=== PATIENT | female | born 1995 | race Caucasian/White ===

== ENCOUNTER 2018-02-17 15:30 | Emergency (ER) | payer OTHER ==
[~2018-02-17] VITALS: Ht 180.3 cm; Wt 113.4 kg
[~2018-02-17 15:30] MED LIST: ACYCLOVIR200 MG/51 PO; ATIVAN1 MG PO; COREG3.125 MG PO; ELIQUIS5 MG PO; LEXAPRO5 MG PO; ORTHO MICRONO0.35 MG PO; PEPCID40 MG PO; TYLENOL325 MG PO; ZOFRAN ODT4 MG PO; ZYPREXA7.5 MG PO
== END 2018-02-17 18:24 | disposition home or self-care (01) ==
LOC: ED 15:30
DX: R42 Dizziness and giddiness (principal); Z88.2 Allergy status to sulfonamides; Z88.8 Allergy status to other drugs, medicaments and biological substances
CPT/HCPCS: 80053; 84703; 85025; 85379; 99284

== ENCOUNTER 2018-08-13 11:25 | Emergency (ER) | payer OTHER ==
[~2018-08-13] VITALS: Ht 180.3 cm; Wt 100.7 kg
[~2018-08-13 11:25] MED LIST changes: +IBUPROFEN200 MG PO
--- NOTE | 2018-08-13 15:56 | EKG ---
[facility] [address] [place], [place] [address] Signed Normal sinus rhythm Normal ECG No previous ECGs available Confirmed by PATIENCE MOREIRA MD ([id number]) on 08/13/2018 3:56:50 PM Electronically Signed By: PATIENCE MOREIRA MD 08/13/18 1556 PATIENT NAME: CRYSTAL HERNANDEZ Electrocardiogram DATE OF : [birth year] PHYSICIAN: PATIENCE MOREIRA MD REPORT #: [id number] REPORT IS CONFIDENTIAL AND NOT TO BE RELEASED WITHOUT AUTHORIZATION
== END 2018-08-13 13:48 | disposition home or self-care (01) ==
LOC: ED 11:25
DX: M94.0 Chondrocostal junction syndrome [Tietze] (principal); Z85.71 Personal history of Hodgkin lymphoma; Z88.2 Allergy status to sulfonamides; Z88.8 Allergy status to other drugs, medicaments and biological substances; Z79.899 Other long term (current) drug therapy; Z86.718 Personal history of other venous thrombosis and embolism
CPT/HCPCS: 71046; 80048; 84484; 85025; 85379; 93005; 93010; 96374; 99284-25

== ENCOUNTER 2019-01-06 11:37 | Emergency (ER) | payer OTHER ==
[~2019-01-06] VITALS: Ht 180.3 cm; Wt 90.7 kg
--- OUTSIDE RECORDS SUMMARY | ~2019-01-06 | XMS | Encounter Summary ---
Demographics + + + | Address | [address] | | | [place] [address] | + + + | Home Phone | | + + + | Preferred Language | Unknown | + + + | Marital Status | | + + + | Latter-Day Affiliation | NON | + + + | Race | White | + + + | Ethnic Group | Not or | + + + Author + + + | Author | [facility] | + + + | Organization | [facility] | + + + | Address | Unknown | + + + | Phone | Unavailable | + + + Support + + +---------+ + | Name | Relationship | Address | Phone | + + +---------+ + | Qamar Wynne | ECON | Unknown | | + + +---------+ + | Merlyn Otero | ECON | Unknown | | + + +---------+ + | Raffy Otero | ECON | Unknown | | + + +---------+ + Care Team Providers + +------+ + | Care Peanut Farmer Name | Role | Phone | + +------+ + | No Pcp Per Patient | PCP | Unavailable | + +------+ + Encounter Details +--------+ + + + + | Date | Type | Department | Care Team | Description | +--------+ + + + + | 03/31/ | Document-Sc | [facility] for | Tiffanie Quirino Simons, | | | 2016 | anned | Hematologic | ,PhD [address] | | | | | Malignancies at | [facility] | | | | | [facility] | [place], [place] | | | | | [address] | [address] | | | | | [facility] | [phone] | | | | | Mailcode: [id number] | | | | | | [facility] | | | | | | [place], [place] | | | | | | [address] | | | | | | [phone] | | | +--------+ + + + + Social History + +-------+ +--------+------+ | Tobacco Use | Types | Packs/Day | Years | Date | | | | | Used | | + +-------+ +--------+------+ | Never Smoker | | | | | + +-------+ +--------+------+ + +---+---+---+ | Smokeless Tobacco: | | | | | Never Used | | | | + +---+---+---+ + + +---------+ + | Alcohol Use | Drinks/Week | oz/Week | Comments | + + +---------+ + | No | 0 Standard drinks | 0.0 | | | | or equivalent | | | + + +---------+ + + + + | Sex Assigned at | Date Recorded | | | | + + + | Not on file | | + + + + + + + | Job Start Date | Occupation | Industry | + + + + | Not on file | Not on file | Not on file | + + + + + + + + | Travel History | Travel Start | Travel End | + + + + + + | No recent travel history available. | + + documented as of this encounter Plan of Treatment Not on filedocumented as of this encounter Visit Diagnoses Not on filedocumented in this encounter"
--- OUTSIDE RECORDS SUMMARY | ~2019-01-06 | XMS | Encounter Summary ---
Demographics + + + | Address | [address] | | | [place] [address] | + + + | Home Phone | | + + + | Preferred Language | Unknown | + + + | Marital Status | | + + + | Pentecostalism Affiliation | NON | + + + | Race | White | + + + | Ethnic Group | Not or | + + + Author + + + | Author | [facility] | + + + | Organization | [facility] | + + + | Address | [...] Team Providers + +------+ + | Care Web User Experience Strategist Name | Role | Phone | + +------+ + | Aashish Hilton MD | PCP | | + +------+ + Reason for Visit AUTH/CERT +--------+--------+ + + + + | Status | Reason | Specialty | Diagnoses / | Referred By | Referred To | | | | | Procedures | Contact | Contact | +--------+--------+ + + + + | | | | | | | +--------+--------+ + + + + Encounter Details +--------+ + + + + | Date | Type | Department | Care Team | Description | +--------+ + + + + | 07/05/ | Hospital | [facility] [address] | [place], | | | 2015 | Encounter | [address] | ,PhD [address] | | | | | [address] [facility] | [address] | | | | | [place] [address] | [place], [place] | | | | | [phone] | [address] | | | | | | [phone] | | | | | | | | +--------+ + + + [...] + + documented as of this encounter Last Filed Vital Signs + + + + + | Vital Sign | Reading | Time Taken | Comments | + + + + + | Blood Pressure | 130/86 | 07/05/2016 12:51 PM | | | | | PST | | + + + + + | Pulse | 136 | 07/05/2016 12:51 PM | | | | | PST | | + + + + + | Temperature | 36.9 C (98.4 F) | 07/05/2016 12:51 PM | | | | | PST | | + + + + + | Respiratory Rate | 18 | 07/05/2016 12:51 PM | | | | | PST | | + + + + + | Oxygen Saturation | 100% | 07/05/2016 12:51 PM | | | | | PST | | + + + + + | Inhaled Oxygen | - | - | | | Concentration | | | | + + + + + | Weight | 95.3 kg (210 lb) | 07/05/2016 9:52 AM | | | | | PST | | + + + + + | Height | 177.8 cm (5' 10") | 07/05/2016 9:52 AM | | | | | PST | | + + + + + | Body Mass Index | 30.13 | 07/05/2016 9:52 AM | | | | | PST | | + + + + + documented in this encounter Discharge Instructions Instructions Lydia Meneses RN - 07/05/2016You have had a tunneled central line placed. Following your catheter placement today: You may feel some discomfort after the local anesthetic wears off. Your discomfort should g radually improve over the next several days. You may resume your usual diet after the procedure. Avoid alcoholic beverages for 24 hours after the procedure. Rest for the remainder of the day and avoid any heavy lifting (more than 10 pounds). Do not operate heavy machinery, drive, or make legal decisions for the first 24 hours after the pr ocedure if you were given sedatives or other medications to help you relax. Keep the initial dressing on for 24 hours or until your dialysis appointment. Keep the skin around the insertion site and dressing dry .No showers for 24 hours. Sponge b ath only tonight if necessary. Do not submerge your catheter under water, (i.e. bath/hot tub ). Contact your caregiver if: You develop any signs of infection around the insertion site (redness, swelling, increased pain, bleeding, or unusual drainage). You develop an unexplained fever or chills. You have any other questions or concerns related to your procedure or the care of your cent ral line. SEEK IMMEDIATE MEDICAL CARE IF: You develop lightheadedness, dizziness or have any fainting episodes. You develop shortness of breath or difficulty breathing. You develop any other signs of allergic reaction to medications such as hives, itching, or nausea and vomiting. Oozing, bleeding or a lump appears at the insertion site. Interventional Radiology Office: [phone] or you may call the Hospital Sheet Rock Applicator at [phone] and ask to have the Interventional Ra diology Fellow highway traffic control technician paged if it is after hours, weekends, or holidays. AttachmentsThe following attachments cannot be sent through Care Everywhere.[facility]: [facility] [employer] [employer] BLOODSTREAM INFECTIONS (GEORGIAN)documented in this encounter Medications at Time of Discharge + + + +---------+ + + | Medication | Sig | Dispensed | Refills | Start | End Date | | | | | | Date | | + + + +---------+ + + | acyclovir 200 mg/5 | Take 20 mL by mouth | 600 mL | 11 | 08/04/20 | | | mL oral suspension | once daily. | | | 16 | | + + + +---------+ + + | escitalopram | Take 1 tablet by | 30 | 3 | 08/04/20 | | | oxalate (LEXAPRO) 10 | mouth once daily in | tablet | | 16 | | | mg oral tablet | the evening. | | | | | + + + +---------+ + + | famotidine 20 mg | Take 1 tablet by | 60 | 5 | 08/06/20 | | | oral tablet | mouth two times | tablet | | 16 | | | | daily. | | | | | + + + +---------+ + + | LORazepam 0.5 mg | Take 1 tablet by | 60 | 0 | 08/04/20 | | | oral tablet | mouth every six | tablet | | 16 | | | | hours as needed for | | | | | | | anxiety (nausea, | | | | | | | vomiting). | | | | | + + + +---------+ + + | norethindrone 0.35 | Take 1 tablet by | 28 | 5 | 08/06/20 | | | mg oral tablet | mouth once daily. | tablet | | 16 | | + + + +---------+ + + | OLANZapine 10 mg | Dissolve 1 tablet in | 30 | 1 | 08/04/20 | | | oral | mouth once daily at | tablet | | 16 | | | tablet,disintegratin | bedtime. | | | | | | g | | | | | | + + + +---------+ + + | ondansetron | Take 1 tablet by | 60 | 11 | 08/07/20 | | | (ZOFRAN, | mouth every twelve | tablet | | 16 | | | HYDROCHLORIDE,) 8 mg | hours as needed for | | | | | | oral tablet | nausea/vomiting. | | | | | + + + +---------+ + + | oxyCODONE, | Take 1 to 2 tablets | 60 | 0 | 08/04/20 | | | immediate release, 5 | by mouth every six | tablet | | 16 | | | mg oral tablet | hours as needed for | | | | | | | moderate pain. | | | | | + + + +---------+ + + | senna-docusate | Take 1-2 tablets by | | 0 | 08/04/20 | | | 8.6-50 mg oral | mouth every twelve | | | 16 | | | tabletIndications: | hours as needed. | | | | | | constipation | Indications: | | | | | | | Constipation | | | | | + + + +---------+ + + documented as of this encounter Progress Notes Freedom Cervantes MD - 07/05/2016 12:02 PM PSTBRIEF INTERVENTIONAL RADIOLOGY PROCEDURE NOTE DATE: 07/05/2016 12:02 PM PROCEDURE: DL Reece catheter placement PRE-PROCEDURE DIAGNOSIS: Hodgkins lymphoma POST-PROCEDURE DIAGNOSIS: Same IR STAFF: Dr. García IR FELLOW: Dr. Cervantes IR RESIDENT: none ACCESS: right IJ MEDICATIONS: See MAR COMPLICATION(S): None immediate FINDINGS: 1. Patent right IJ. Right IJ PORT. 2. Placement of right IJ DL Reece tunneled catheter(23cm tip to cuff) with tip at the ca voatrial junction. Full report forthcoming. Freedom Cervantes MD - 07/03/2016 1:04 PM PSTFormatting of this note might be different from th e original. INTERVENTIONAL RADIOLOGY PRE-PROCEDURE HISTORY AND PHYSICAL LOCATION: [facility] SEX: Female AGE: 20 y.o. : 1995 PROCEDURE PLANNED: DL Reece placement HISTORY OF PRESENT ILLNESS: 20 yo female with hx of Hodgkins disease with early relapse here for DL Reece catheter fo r autoBMT. She has mediastinal disease and a right chest wall PORT. The left IJ appeared o ccluded on CT from 02/27. She is on apixaban daily for DVT. ADVERSE DRUG REACTIONS: Allergies Allergen Reactions Promethazine Pruritus, Rash and Dystonia Sulfacetamide Sodium Hives RED FLAGS: On apixaban TAKING ANTICOAGULANT OR GLUCOPHAGE? apixaban PREMEDICATIONS NEEDED: none LABORATORY: Lab Results Component Value Date WBC 4.4 (L) 06/30/2016 HCT 32.7 (L) 06/30/2016 PLT 414 (H) 06/30/2016 Lab Results Component Value Date NA 136 06/30/2016 K 4.1 06/30/2016 CL 105 06/30/2016 BICARB 25 06/30/2016 BUN 12 06/30/2016 CR 1.0 06/30/2016 GLU 88 06/30/2016 Lab Results Component Value Date INRPT 0.99 06/17/2016 FOCUSED PHYSICAL EXAMINATION: SIGNIFICANT FINDINGS GENERAL BMI:There is no height or weight on file to calculate BMI.. Awake and alert HEENT HEART LUNGS Clear to auscultation ABDOMEN right chest wall port EXTREMITIES NEURO Right neck clear PLANNED ACCESS POINT(S): Right IJ/Left IJ CURRENT LEVEL OF PAIN: Mild PLANNED LEVEL OF SEDATION: Moderate PRESENT P.O. STATUS: NPO PRE-SEDATION EVALUATION HISTORY: Are you having breathing problems today? no Are you having chest pain or discomfort today? no Have you had a prior history of difficult intubation or ventilation? no Do you have noisy breathing (stridor)? no Do you snore? no Do you have documented sleep apnea? no Previous sedation/anesthesia experience and NPO status documented on nursing note, which I have reviewed. 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 Assessment: I have reviewed Ms. Otero's history and and conducted the physical examination as documen jacqui above. This patient is appropriate for moderate sedation. Ms. Otero has provided written consent for sedation with this procedure. Plan: Procedure with moderate sedation MD Freedom Cordova MD Pager: [phone] [facility] Past Medical History Diagnosis Date Anxiety C. difficile colitis Decubitus ulcer DVT (deep venous thrombosis) (HCC) Eczema Hodgkins lymphoma (HCC) HUS (hemolytic uremic syndrome), atypical (HCC) Obesity, Class I, BMI 30-34.9 Sepsis (HCC) No past surgical history on file. Current Medication List Name Sig APIXABAN 5 MG TABLET Take 1 tablet by mouth two times daily. Indications: PREVENTION OF GARY P VEIN THROMBOSIS RECURRENCE SOLIRIS IV Inject into the vein (IV). ESCITALOPRAM 10 MG TABLET Take by mouth. LIDOCAINE-PRILOCAINE 2.5 %-2.5 % TOPICAL CREAM Apply to affected area as needed. Apply a t hick layer to intact skin and cover with an occlusive dressing. documented in this encou nter Plan of Treatment Not on filedocumented as of this encounter Procedures + +--------+ + + + | Procedure Name | Priori | Date/Time | Associated Diagnosis | Comments | | | ty | | | | + +--------+ + + + | CATH PLACEMENT | Routin | 07/05/2016 | | Results for this | | | e | 11:49 AM | | procedure are in the | | | | PST | | results section. | + +--------+ + + + | HCG URINE, POC | Routin | 07/05/2016 | | Results for this | | | e | 9:47 AM | | procedure are in the | | | | PST | | results section. | + +--------+ + + + documented in this encounter Results CATH PLACEMENT (07/05/2016 11:49 AM PST) + + + + + + | Component | Value | Ref Range | Performed | Pathologist | | | | | At | Signature | + + + + + + | CATH | Procedure: Dual lumen | | | | | PLACEMENT | Reece Catheter | | | | | | Placement Primary | | | | | | unemployment claims adjudicator: Freedom Cervantes, | | | | | | M.D. Batch Tank Controller | | | | | | attending unemployment claims adjudicator: | | | | | | Christina García, | | | | | | M.D. Preoperative | | | | | | diagnosis: 20 year-old | | | | | | female with history of | | | | | | Hodgkin's diseasewith | | | | | | early relapse, now for | | | | | | auto BMT. His | | | | | | mediastinal disease and | | | | | | a right chestwall port | | | | | | Postoperative diagnosis: | | | | | | Same Operations: | | | | | | Operation | | | | | | 1. Ultrasound guided | | | | | | puncture right internal | | | | | | jugular vein. Operation | | | | | | 2. Antegrade | | | | | | tunneling Dialysis | | | | | | catheter on right | | | | | | anterior chestwall. | | | | | | Operation | | | | | | 3. Insertion of Dual | | | | | | lumen dialysis catheter | | | | | | into the | | | | | | cavoatrialjunction. | | | | | | Indications: 20-year-old | | | | | | female requires | | | | | | tunneled 2 lm Reece | | | | | | catheter forauto BMT. | | | | | | Procedure: The patient, | | | | | | procedure, and allergies | | | | | | were confirmed in the | | | | | | presence of thepatient | | | | | | by the attending.The | | | | | | attending physician was | | | | | | present for the | | | | | | entireprocedure. Written | | | | | | informed consent was | | | | | | obtained in a PARQ | | | | | | conference with | | | | | | thepatient. The | | | | | | procedure was performed | | | | | | with intravenous | | | | | | sedation. | | | | | | Moderatesedation was | | | | | | administered by the | | | | | | interventional radiology | | | | | | nurse under | | | | | | directsupervision | | | | | | utilizing 7 mg IV Versed | | | | | | and 250 mcg IV | | | | | | fentanyl. The patient | | | | | | was prepped and draped | | | | | | in the usual manner. US | | | | | | was performed toevaluate | | | | | | and select vascular | | | | | | access and an image | | | | | | recorded and | | | | | | archiveddocumenting | | | | | | patency. Realtime US was | | | | | | utilized for | | | | | | visualization of needle | | | | | | entryinto the | | | | | | vein.Utilizing | | | | | | ultrasound guidance and | | | | | | a micropuncture needle | | | | | | theright internal | | | | | | jugular vein was | | | | | | accessed under local | | | | | | anesthesia. Great care | | | | | | wastaken to access the | | | | | | right internal jugular | | | | | | vein at a different | | | | | | location fromthe | | | | | | previously placed | | | | | | Port-A-Cath, and to | | | | | | ensure that the path of | | | | | | the newcatheter did not | | | | | | interfere, cross, or | | | | | | touch the indwelling | | | | | | port and thecatheter. | | | | | | Serial dilatation | | | | | | allowed placement of a | | | | | | 14 Surinamese peel away | | | | | | sheath.Local anesthetic | | | | | | was administered to the | | | | | | right anterior chest | | | | | | wall and thecatheter | | | | | | tunneled in antegrade | | | | | | fashion utilizing sharp | | | | | | and blunt technique.The | | | | | | dual lumen Reece | | | | | | catheter was then | | | | | | inserted through the | | | | | | sheath andpositioned | | | | | | with its tip at the | | | | | | cavo-atrial junction | | | | | | with | | | | | | fluoroscopy. Thecathe | | | | | | ter was flushed. The | | | | | | catheter was sutured in | | | | | | place with nylon suture | | | | | | atthe neck and skin exit | | | | | | site. A dry sterile | | | | | | dressing was | | | | | | applied. Digitalradio | | | | | | graph was obtained at | | | | | | the termination of the | | | | | | procedure. Total | | | | | | fluoroscopic time: 20 | | | | | | seconds Findings: There | | | | | | is a patent right | | | | | | internal jugular vein. | | | | | | Indwelling Port-A-Cath, | | | | | | withaccess into anterior | | | | | | right internal jugular | | | | | | vein. The access needle | | | | | | wasvisualized in the | | | | | | vein, with a | | | | | | subcutaneous course and | | | | | | access point that | | | | | | wasseparate from the | | | | | | indwelling | | | | | | Port-A-Cath..A Dual | | | | | | lumen Reece catheter | | | | | | wasplaced with its tip | | | | | | at the cavo- atrial | | | | | | junction in tunneled | | | | | | fashion. Impression: | | | | | | 1. Patent right | | | | | | internal jugular vein. | | | | | | 2. Placement of 13.5 | | | | | | Surinamese 23 cm tip-to-cuff | | | | | | tunneled dual lumen | | | | | | Hickmancatheter via | | | | | | right internal jugular | | | | | | vein. 3. Catheter tip | | | | | | is at cavo-atrial | | | | | | junction and is ready | | | | | | for immediate use. | | | | | | 4. No evidence of | | | | | | pneumothorax on | | | | | | completion digital | | | | | | image. Attending | | | | | | Radiologists: CHRISTINA | | | | | | EMMY GARCÍAuthor: | | | | | | CHRISTINA GARCÍA MD | | | | | | I personally reviewed | | | | | | the images and, if | | | | | | necessary, edited the | | | | | | report. I agreewith the | | | | | | report as now presented. | | | | | | | | | | | | Final/Electronically | | | | | | signed / CHRISTINA | | | | | | RICKY 07/05/2016 | | | | | | 16:37 PM | | | | + + + + + + + + | Specimen | + + | | + + + +---------+ + + | Performing | Address | City/State/Zipcode | Phone Number | | Organization | | | | + +---------+ + + | [facility] | | | | | RADIOLOGY | | | | + +---------+ + + HCG URINE, POC (07/05/2016 9:47 AM PST) + + + + + + | Component | Value | Ref Range | Performed | Pathologist | | | | | At | Signature | + + + + + + | HCG URINE, | Negative | Negative | [facility] - | | | POC | | | [facility] | | | | | | [facility] | | | | | | OF CARE | | | | | | TESTS | | + + + + + + + + | Specimen | + + | Urine | + + + + + + + | Performing | Address | City/State/Zipcode | Phone Number | | Organization | | | | + + + + + | [facility] | [address] | [place], [place] | | | [facility] | [address] | [address] | | | TESTS | | | | + + + + + documented in this encounter Visit Diagnoses Not on filedocumented in this encounter Administered Medications + +--------+ +--------+------+------+ | Medication Order | MAR | Action | Dose | Rate | Site | | | Action | Date | | | | + +--------+ +--------+------+------+ | fentaNYL (SUBLIMAZE) injection | Given | 07/05/20 | 50 mcg | | | | 25-100 mcg 25-100 mcg, | | 16 11:18 | | | | | intravenous, INTRAPROCEDURE PRN, | | AM PST | | | | | 20 doses, Starting Tue07/05/16 | | | | | | | at 0826, Until Tue07/05/16 at | | | | | | | 1210, until RASS of -3 achieved | | | | | | | and to maintain RASS of -3 | | | | | | + +--------+ +--------+------+------+ +-------+ +--------+---+---+ | Given | 07/05/20 | 50 mcg | | | | | 16 11:16 | | | | | | AM PST | | | | +-------+ +--------+---+---+ | Given | 07/05/20 | 50 mcg | | | | | 16 11:15 | | | | | | AM PST | | | | +-------+ +--------+---+---+ +---+---+ | | | +---+---+ + +-------+ +-------+---+---+ | heparin injection 5-20 mL 5-20 | Given | 07/05/20 | 10 mL | | | | mL, Intracatheter, | | 16 11:57 | | | | | INTRAPROCEDURE PRN, Starting Mon | | AM PST | | | | | 07/05/16 at 0826, Until Mon | | | | | | | 07/05/16 at 1210, line patency, | | | | | | | catheter packing | | | | | | + +-------+ +-------+---+---+ +---+---+ | | | +---+---+ + +-------+ +------+---+---+ | midazolam (PF) (VERSED) | Given | 07/05/20 | 1 mg | | | | injection 1-5 mg 1-5 mg, | | 16 11:18 | | | | | intravenous, INTRAPROCEDURE PRN, | | AM PST | | | | | 20 doses, Starting 07/05/16 | | | | | | | at 0826, Until 07/05/16 at | | | | | | | 1210, until RASS of -3 achieved | | | | | | | and to maintain RASS of -3 | | | | | | + +-------+ +------+---+---+ +-------+ +------+---+---+ | Given | 07/05/20 | 1 mg | | | | | 16 11:16 | | | | | | AM PST | | | | +-------+ +------+---+---+ | Given | 07/05/20 | 1 mg | | | | | 16 11:15 | | | | | | AM PST | | | | +-------+ +------+---+---+ +---+---+ | | | +---+---+ + +-------+ +------+---+---+ | ondansetron (ZOFRAN) injection | Given | 07/05/20 | 4 mg | | | | 4 mg 4 mg, intravenous, | | 16 10:55 | | | | | INTRAPROCEDURE PRN, 1 dose, | | AM PST | | | | | Starting Tue07/05/16 at 0826, | | | | | | | Until Tue07/05/16 at 1055, | | | | | | | nausea/vomiting | | | | | | + +-------+ +------+---+---+ + +---+ | | | + +---+ | oxyCODONE (immediate release) | | | (ROXICODONE) tablet 5-15 mg 5-15 | | | mg, oral, EVERY 4 HOURS | | | NEEDED, Starting Tue07/05/16 at | | | 1202, Until Tue07/05/16 at 1321, | | | moderate pain | | + +---+ | | | + +---+ documented in this encounter
--- OUTSIDE RECORDS SUMMARY | ~2019-01-06 | XMS | Encounter Summary ---
Demographics + + + | Address | [address] | | | [place] [address] | + + + | Home Phone | | + + + | Preferred Language | Unknown | + + + | Marital Status | | + + + | Hoahaoism Affiliation | NON | + + + | Race | White | + + + | Ethnic Group | Not or | + + + Author + + + | Author | [facility] | + + + | Organization | [facility] | + + + | [...] Team Providers + +------+ + | Care Motor Assembly Supervisor Name | Role | Phone | + +------+ + | No Pcp Per Patient | PCP | Unavailable | + +------+ + Reason for Visit + + + | Reason | Comments | + + + | Lab Draw | [facility] | + + + Encounter Details +--------+ + + + + | Date | Type | Department | Care Team | Description | +--------+ + + + + | 04/08/ | Documentati | Hematology/Medical | [facility] | Lab Draw ([facility] | | 2016 | on | [facility] | MD Jim [address] | Pathology Services ) | | | | [facility] | [address] [place], | | | | | [address] | [place] [address] | | | | | Mailcode: [facility] | [phone] | | | | | for [facility] and | | | | | | Healing, [address] | | | | | | [place], [place] | | | | | | [address] | | | | | | [phone] | | | +--------+ + + + [...]
--- OUTSIDE RECORDS SUMMARY | ~2019-01-06 | XMS | Encounter Summary ---
Demographics + + + | Address | [address] | | | [place] [address] | + + + | Home Phone | | + + + | Preferred Language | Unknown | + + + | Marital Status | | + + + | Yarsani Affiliation | NON | + + + | Race | White | + + + | Ethnic Group | Not or | + + + Author + + + | Author | [facility] | + + + | Organization | [facility] | + + + | Address | [...] Team Providers + +------+ + | Care Kiln Operator Name | Role | Phone | + +------+ + | Aashish Hilton MD | PCP | | + +------+ + Encounter Details +--------+ + + + + | Date | Type | Department | Care Team | Description | +--------+ + + + + | 07/07/ | Telephone | Center for | Maura Lai, | | | 2015 | | Hematologic | RN [address] | | | | | Malignancies at | [facility] | | | | | [facility] | [place], [place] | | | | | [address] | [address] | | | | | [facility] | [phone] | | | | | Mailcode: [id number] | | | | | | [facility] | | | | | | [place], [place] | | | | | | [address] | | | | | | [phone] | | | +--------+ + + + [...]
--- OUTSIDE RECORDS SUMMARY | ~2019-01-06 | XMS | Encounter Summary ---
Demographics + + + | Address | [address] | | | [place] [address] | + + + | Home Phone | | + + + | Preferred Language | Unknown | + + + | Marital Status | | + + + | Hindu Affiliation | NON | + + + | Race | White | + + + | Ethnic Group | Not or | + + + Author + + + | Author | [facility] | + + + | Organization | [facility] | + + + | Address [...] Team Providers + +------+ + | Care Contact Manager Name | Role | Phone | + +------+ + | No Pcp Per Patient | PCP | Unavailable | + +------+ + Encounter Details +--------+ + + + + | Date | Type | Department | Care Team | Description | +--------+ + + + + | 06/18/ | Telephone | Center for | Maura Lai, | | | 2015 | | Hematologic | RN [address] | | | | | Malignancies at | [facility] | | | | | Joanne [address] | [place], [place] | | | | | [address] [facility] | [address] | | | | | [facility] | [phone] | | | | | Mailcode: [id number] | | | | | | [address] | | | | | | [place], [place] | | | | | | [address] | | | | | | [phone] | | | +--------+ + + + [...]
--- OUTSIDE RECORDS SUMMARY | ~2019-01-06 | XMS | Encounter Summary ---
Demographics + + + | Address | [address] | | | [place] [address] | + + + | Home Phone | | + + + | Preferred Language | Unknown | + + + | Marital Status | | + + + | Mandaen Affiliation | NON | + + + | Race | White | + + + | Ethnic Group | Not or | + + + Author + + + | Author | [facility] | + + + | Organization | [facility] | + + + | Address [...] Team Providers + +------+ + | Care Salesperson Yard Goods Name | Role | Phone | + +------+ + | No Pcp Per Patient | PCP | Unavailable | + +------+ + Encounter Details +--------+ + + + + | Date | Type | Department | Care Team | Description | +--------+ + + + + | 05/26/ | Bandoleer Straightener Stamper | Center for | Quirino Moreno I, | | | 2016 | | Hematologic | ,PhD [address] | | | | | Malignancies at | [facility] | | | | | Joanne [address] | [place], [place] | | | | | [address] [facility] | [address] | | | | | [facility] | [phone] | | | | | Mailcode: [id number] | | | | | | [facility] | | | | | | [place], [place] | | | | | | [address] | | | | | | [phone] | | | +--------+ + + + [...]
--- OUTSIDE RECORDS SUMMARY | ~2019-01-06 | XMS | Clinical Summary ---
Demographics + + + | Address | [address] | | | [place] [address] | + + + | Home Phone | | + + + | Preferred Language | Unknown | + + + | Marital Status | | + + + | Synagogue Affiliation | Unknown | + + + | Race | Unknown | + + + | Ethnic Group | Unknown | + + + Author + + + | Author | [facility] | + + + | Organization | [facility] | + + + | Address | Unknown | + + + | Phone | Unavailable | + + + Support + + + + + | Name | Relationship | Address | Phone | + + + + + | Qamar Wynne | ECON | [address] | | | | | [place] | | | | | [address] | | + + + + + Care Team Providers + +------+ + | Care Road Marker Name | Role | Phone | + +------+ + | Aashish Hilton MD | PP | | + +------+ + Allergies Not on File Current Medications Not on file Active Problems Not on file Social History + +-------+ +--------+------+ | Tobacco Use | Types | Packs/Day | Years | Date | | | | | Used | | + +-------+ +--------+------+ | Never Assessed | | | | | + +-------+ +--------+------+ + + + | Sex Assigned at | Date Recorded | | | | + + + | Not on file | | + + + Plan of Treatment Not on file Results Not on filefrom Last 3 Months Insurance + +--------+ +------+-------+---------+ | Payer | Benefi | Subscriber | Type | Phone | Address | | | t Plan | ID | | | | | | / | | | | | | | Group | | | | | + +--------+ +------+-------+---------+ | [employer] | [employer] | [id number] | | | | | | HEALTH | | | | | | | PLAN | | | | | + +--------+ +------+-------+---------+ + +--------+ +--------+ + + | Guarantor Name | Accoun | Relation to | Date | Phone | Billing Address | | | t Type | Patient | of | | | | | | | | | | + +--------+ +--------+ + + | CRYSTAL OTERO | Person | Self [birth year] | Home: | [address] | | | [place] | | 1995 | [phone] [place] [address] | | | matthew | | | [phone] | | + +--------+ +--------+ + +"
--- OUTSIDE RECORDS SUMMARY | ~2019-01-06 | XMS | Encounter Summary ---
Demographics + + + | Address | [address] | | | [place] [address] | + + + | Home Phone | | + + + | Preferred Language | Unknown | + + + | Marital Status | | + + + | Worship Affiliation | NON | + + + | Race | White | + + + | Ethnic Group | Not or | + + + Author + + + | Author | [facility] | + + + | Organization | [facility] | + + + | [...] Team Providers + +------+ + | Care Director Information Security Name | Role | Phone | + +------+ + | Aashish Hilton MD | PCP | | + +------+ + Reason for Visit + + + | Reason | Comments | + + + | Transplant follow-up | | + + + Intake Referral (Urgent) +--------+--------+ + + + + | Status | Reason | Specialty | Diagnoses / | Referred By | Referred To | | | | | Procedures | Contact | Contact | +--------+--------+ + + + + | Closed | | Hematology & | Diagnoses | | Fernanda, | | | | Oncology | HUS - needs | Fernanda, | MD Jim | | | | | Ramana | MD Jim | [address] | | | | | | [address] | [address] | | | | | | Ave | [place], [place] | | | | | | [place], [place] | [address] | | | | | | [address] | Phone: | | | | | | Phone: | [phone] | | | | | | [phone] | Fax: | | | | | | Fax: | [phone] | | | | | | [phone] | | +--------+--------+ + + + + Encounter Details +--------+---------+ + + + | Date | Type | Department | Care Team | Description | +--------+---------+ + + + | 08/13/ | Office | Center for | Coreen Grissom, | Nodular sclerosis | | 2016 | Visit | Hematologic | [place] [address] [facility] | Hodgkin lymphoma of | | | | Malignancies at | [facility] | lymph nodes of | | | | [facility] | [place], [place] | multiple regions | | | | [address] [facility] | [address] | (HCC) (Primary Dx); | | | | [facility] | [phone] | Autologous bone | | | | Mailcode: UHN73A | | marrow | | | | [facility] | | transplantation | | | | [place], [place] | | status (HCC) | | | | [address] | | | | | | [phone] | | | +--------+---------+ + + + Social History + +-------+ [...] + + + | Blood Pressure | 133/102 | 08/13/2016 12:51 PM | | | | | PST | | + + + + + | Pulse | 113 | 08/13/2016 12:51 PM | | | | | PST | | + + + + + | Temperature | 37 C (98.6 F) | 08/13/2016 12:51 PM | | | | | PST | | + + + + + | Respiratory Rate | 16 | 08/13/2016 12:51 PM | | | | | PST | | + + + + + | Oxygen Saturation | 100% | 08/13/2016 12:51 PM | | | | | PST | | + + + + + | Inhaled Oxygen | - | - | | | Concentration | | | | + + + + + | Weight | 96.3 kg (212 lb 4.9 | 08/13/2016 12:51 PM | | | | oz) | PST | | + + + + + | Height | - | - | | + + + + + | Body Mass Index | 30.46 | 08/11/2016 1:57 AM | | | | | PST | | + + + + + documented in this encounter Patient Instructions Patient Instructions Coreen Grissom PA - 08/13/2016 1:15 PM PST-Take your temperature regularly (3-4 x daily) and to call immediately for a temperature of 100.4 or greater. documented in this encounter Progress Notes Coreen Grissom PA - 08/13/2016 1:15 PM PSTFormatting of this note might be different f rom the original. 08/13/2016 [facility] Physician: Quirino Moreno MD Local Oncologist: Dr. Hilton PCP: Aashish Hilton MD Hematologic Malignancy: Relapsed HL Conditioning regimen: BEAM Date of transplant: 07/21/16 Donor: Autologous Hematologic History: Meggan Otero is a 20 y.o. 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, admit for autoBMT Local oncologist: Aashish Hilton MD ([facility]) Benign Hematology: Jim Michael MD ([facility]) Pediatric Heme/Onc: Anh Moreland MD ([place]) Nephrology: Raghav Miller MD ([place]) 04/2015 presented with flank pain CT C/A/P: 11 cm anterior mediastinal mass, pleural effusion & L supraclav adenopathy Needle bx: classical hodgkins, nodular sclerosing type Thoracentesis: reactive/benign BMBx: neg PET: bulky mediastinal mass, SUV 16; bilateral neck SUV 15; also R>L pleural effusion 05/10/15 began ABVE-PC (as per pediatric [id number]) via femoral line 05/16/15 presented with sepsis & ATN, requiring prolonged ICU stay - RLE DVT, attempted thrombolysis, then DVT L femoral line - also C Diff with severe diarrhea - anticoagulation attempted with heparin but thrombocytopenic - then severe hemoptysis, microangiopathy, acute kidney injury - 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 -> tx high dose steroids + plasma exchange but poor response -> then ecalizumab with rapid clinical improvement Continued on ecalizumab ever since (genetic testing n/a) 06/18/15 A(B)VE-PC #2 (omit bleo) - complicate by neutropenic fever/admit, recurrent hemoptysis, decubitus ulcer - DVT R popliteal 07/14/15 A(B)VE-PC #3 - complicate by neutropenic fever 08/11/15 A(B)VE-PC #4 - complicate by neutropenic fever 08/2015 CR by PET with residual mass 5.2 x 3.1 cm 09/2015 IFRT 21 Gy 02/2016 CT: enlarging L jugular node 1.5cm & thoracic inlet node 0.9cm in prior radiation fi eld - residual mediastinal mass 2.8 x 4.6 x 7.2 cm PET: left jugular node SUV 8. Also punctate hypermetabolic foci in mediastinal mass, SUV 4. 8 03/2016 surgical bx L neck: classical Hodgkins Above therapy in [place] -> moved to [place] Continued on ecalizumab per benign heme (Roqueoughadrianna) - genetic testing for aHUS PENDING GDP x3 06/2017 CR by PET Reece placed GCSF stem cell mobilization: 7.3 x10^6 cd34/kg She was recently hospitalized from 07/15/16-08/07/16 [facility] For complete details of her recent hospitalization, please see discharge dictation in EPIC. Briefly, her transplant hospitalization was complicated by: pancytopenia, neutropenic fevers, MRSA bacteremia, orthostatic hypotension, chemotherapy induced nausea, mucositis. Meggan Otero is a 20 y.o. female with hx of relapsed HL, currently day +23 s/p BEAM co nditioned autologous peripheral blood stem cell transplant. Interval Hx: Meggan presents to clinic today for her routine scheduled visit. She is accompanied by her m other and in clinic today. Meggan was readmitted after our last visit after developi ng fever. It was determined she had a delayed transfusion reaction and infection was ruled out. Today she is feeling well. She has some intermittent nausea controlled with scheduled zofran and ativan PRN. Her energy level is low but improving. She is eating small meals a nd drinking ~2L/day in PO fluids. She denies fevers or diarrhea. Review of Systems: General: +fatigue-improving Denies fevers, chills, weight loss or sweats. ENT: Denies changes in vision or double vision. Denies hearing loss, nosebleeds, nasal valentine estion, difficulty swallowing, hoarseness or sore throat. Respiratory: Denies shortness of breath, coughing up blood, excessive sputum, cough, chest discomfort or wheezing. Musculoskeletal: +low back/hip pain No swelling, stiffness,arthritis, muscle aches or muscl e cramps. Cardiovascular: No chest pain,lightheadedness,shortness of breath. Gastrointestinal: +nausea-mild, intermittent Denies indigestion, vomiting, constipation, ab dominal pain, diarrhea,bloody stools or dark tarry stools. Skin: Denies rash. Psychological: No abnormal anxiety, depression. Remainder of ROS is otherwise negative. Current Medication List Name Sig ACYCLOVIR 200 MG/5 ML ORAL SUSPENSION Take 20 mL by mouth once daily. ENOXAPARIN 40 MG/0.4 ML SUBCUTANEOUS SYRINGE Inject 0.4 mL under the skin (SUBC) once daily in the evening. Indications: Deep Venous Thrombosis ESCITALOPRAM 10 MG TABLET Take 1 tablet by mouth once daily in the evening. FAMOTIDINE 20 MG TABLET Take 1 tablet by mouth two times daily. FLUCONAZOLE 40 MG/ML ORAL SUSPENSION Take 10 mL by mouth once daily. LORAZEPAM 0.5 MG TABLET Take 1 tablet by mouth every six hours as needed for anxiety (nause a, vomiting). NORETHINDRONE (CONTRACEPTIVE) 0.35 MG TABLET Take 1 tablet by mouth once daily. OLANZAPINE 10 MG DISINTEGRATING TABLET Dissolve 1 tablet in mouth once daily at bedtime. ONDANSETRON HCL 8 MG TABLET Take 1 tablet by mouth every twelve hours as needed for nausea/ vomiting. OXYCODONE 5 MG TABLET Take 1 to 2 tablets by mouth every six hours as needed for moderate p ain. SENNOSIDES-DOCUSATE SODIUM 8.6 MG-50 MG TABLET Take 1-2 tablets by mouth every twelve hours as needed. Indications: Constipation Vitals: BP 133/102 | Pulse 113 | Temp (Src) 37 C (98.6 F) (Oral) | RR 16 | Wt 96.3 kg (212 lb 4 .9 oz) | SpO2 100% | BMI 30.46 kg/(m^2) Physical Exam: General: This is a female in no acute distress. HEENT: PERRL. Sclerae anicteric. Mucosa pink and moist without erythema or exudate. Skin: No rash, lesions noted. Chest: Lungs clear to auscultation bilat. CV: RRR, no murmurs. Abdomen: S/NT/ND with NABS. No HSM appreciated. Extremities: Pulses strong and equal bilaterally. No c/c/e. Neuro: Alert and oriented x 3. Grossly nonfocal exam. CVC: Central line is a PICC catheter w/o induration or inflammation Laboratory Results: CBC with diff: Last 72 hours (or 3 results) No results for input(s): WBC, HB, HCT, PLT, NEUTROPERC, BANDSPCT, LYMPHPERC, MONOPERC, BASO PERC, EOSPERC in the last 72 hours. Chemistries: Last 72 Hours (or 3 results): Recent Labs 08/10/16 2053 08/11/16 0604 08/12/16 0101 08/13/16 1241 08/13/16 1301 NA 145 145 146* -- 138 K 3.4 3.8 3.2* -- 3.5 CL 113* 113* 113* -- 104 BICARB 20* 23 23 -- 27 BUN 23* 24* 17 -- 12 CR 1.62* 1.45* 1.32* -- 1.2* GLU 104* 91 95 -- 86 CA 8.5* 8.2* 8.3* -- 8.6* AST 26 29 22 20 -- ALT 15 15 15 17 -- AP 114* 97 92 110* -- TBILI 2.4* 1.0 0.8 0.7 -- TP 6.5 5.6* 5.7* 6.6 -- ALB 3.4* 3.0* 2.9* 3.4* -- ANIONGAP 12 9 10 -- -- ANIONALBCOR 13* 11 12* -- -- Hematology: Hematologic Malignancy: relapsed HL Conditioning Regimen: BEAM Stem cell transplant -Stem Cell product: tolerated stem cell product on 07/21/16 without complications. CD 34 cou nt = 7.3 x 10^6 per kg -BMT Day: +23 CBC reviewed and reveals pancytopenia. 1U PPH and last dose of neupogen given today. -Around day + 30, we will return her to her primary attending with our BMT service, Dr. Cira leon; first appointment scheduled for 08/26/16. -Plan for Brentuximab maintenance starting ~6 wks post-BMT back home which improves EFS in high risk pts post-auto. She meets high risk criteria due to early relapse. Delayed transfusion reaction: readmitted on 08/10 with fever and transfusion reaction suspe cted with antibody screening positive. -Allow additional time for crossmatch of PRBCs Supportive Care: Growth Factor: Last dose of neupogen given on 08/13 Labs: Continue to check CBC twice weekly Transfusion parameters: -Transfuse PRBCs for HCT <21% if asymptomatic OR <24% if symptomatic -Transfuse PPH for platelet count <20,000 d/t anticoagulation Pulmonary: Pretransplant PFTs completed on 06/25/16 showed FEV1 of 86% predicted, FVC of 90% predicted and adjusted DLCO of 50% predicted. No acute issues Cardiovascular: Pretransplant MUGA completed on 06/24/16 showed a LVEF of 55%. RLE DVT (first noted 07/04/15, persists on 07/16 doppler in R axial calf): Apixaban prior to transplant -Dc'd Apixiban 5 mg BID on admission -Received Tx-dose Lovenox until plts <50K (07/15-07/25) -Lovenox 40 mg qpm while thrombocytopenic, keep plts >20K Orthostatic HoTN: first noted during initial hospital admission and sxs persist intermitten tly -1L NS boluses PRN if asymptomatic GI: Hx of GERD: Pepcid BAKELITE MOLDER -Prilosec 40 mg daily Nausea: ongoing, improved -Zofran PO BID -Zyprexa 10 mg qhs -PRN antiemetics /renal: Atypical HUS: Eculizumab prior to transplant -Eculizumab q 2 weeks, last dose given in clinic on 08/09. -Monitor for hemolysis flare -Monitor LDH, hapto, complement activity qMon, Thurs Menses suppression: -Norethindrone, started 08/05 BRETT: 2/2 supratherapeutic vancomycin and vanco treatment now complete. SCr up to 1.6, now trending down. -Monitor 2x/week -IV fluids in clinic today Neuro/Psych: Depression/Anxiety: Lexapro prior to transplant -Lexapro 10 mg daily -Ativan PRN Infectious Disease: MRSA bacteremia (07/28): noted during initial transplant admission. PAC and Reece remove d on 07/30. TTE neg. Completed course of vancomycin on 08/12. Afebrile and no localizing s/s of acute infection at this time. -The patient is reminded to take her temperature regularly (3-4 x daily) and to call immedi ately for a temperature of 100.4 or greater. Post-Transplant Prophylaxis: Antiviral: Acycovir through day +365 (07/21/17) Antifungal: Fluconazole through day +30 (08/20/16) PCP: PCP prophylaxis will start day+30-40. Dapsone through day +180 as patient has sulfa a llergy. Fluid/Nutrition/Lytes: Nutrition: Current diet -- Regular No Adriane's yogurt or Kefir. Encourage po intake as micheal ated with a goal of consistently drinking at least 2L calorie containing fluids per day. Fluid: 1L NS bolus IV today Lytes: Continue to check chemistries twice weekly. Replace per supportive care protocol. Plan: -KDur 40 mEq PO -1L NS bolus IV today. -1U PPH -Zarxio 480 mcg SC x 1 today. -Return to clinic on 08/17 to see me, sooner prn [facility] AT [address] Mailcode: [id number] [place] [address] documented in this encounter Plan of Treatment Not on filedocumented as of this encounter Results CBC+DIFF,POC (08/17/2016 1:23 PM PST) + + + + + + | Component | Value | Ref Range | Performed | Pathologist | | | | | At | Signature | + + + + + + | WBC POC | 1.8 (L) | 4.4 - 11.0 | [facility] - | | | | | 10*3/uL | [facility] | | | | | | [facility] | | | | | | OF CARE | | | | | | TESTS | | + + + + + + | RBC POC | 2.68 (L) | 4.00 - 5.20 | [facility] - | | | | | 10*6/uL | [facility] | | | | | | [facility] | | | | | | OF CARE | | | | | | TESTS | | + + + + + + | HGB POC | 8.4 (L) | 12.0 - 16.0 | [facility] - | | | | | g/dL | [facility] | | | | | | [facility] | | | | | | OF CARE | | | | | | TESTS | | + + + + + + | HCT POC | 24.4 (L) | 36.0 - 46.0 % | [facility] - | | | | | | [facility] | | | | | | [facility] | | | | | | OF CARE | | | | | | TESTS | | + + + + + + | MCV POC | 91.0 | 80.0 - 96.0 fL | [facility] - | | | | | | [facility] | | | | | | [facility] | | | | | | OF CARE | | | | | | TESTS | | + + + + + + | MCH POC | 31.3 | 29.0 - 32.0 pg | [facility] - | | | | | | [facility] | | | | | | [facility] | | | | | | OF CARE | | | | | | TESTS | | + + + + + + | MCHC POC | 34.4 | 33.0 - 35.5 | [facility] - | | | | | g/dL | [facility] | | | | | | [facility] | | | | | | OF CARE | | | | | | TESTS | | + + + + + + | RDW SD, POC | 42.0 | 35.1 - 46.3 fL | [facility] - | | | | | | [facility] | | | | | | [facility] | | | | | | OF CARE | | | | | | TESTS | | + + + + + + | PLT POC | 23 (L) | 150 - 400 | [facility] - | | | | | 10*3/uL | [facility] | | | | | | [facility], POINT | | | | | | OF CARE | | | | | | TESTS | | + + + + + + | MPV POC | 11.9 | 9.7 - 12.3 fL | [facility] - | | | | | | [facility] | | | | | | [facility] | | | | | | OF CARE | | | | | | TESTS | | + + + + + + | NEUTROPHIL% | 31.1 (L) | 50.0 - 70.0 % | [facility] - | | | POC | | | [facility] | | | | | | [facility] | | | | | | OF CARE | | | | | | TESTS | | + + + + + + | LYMPH% POC | 50.8 (H) | 18 - 42 % | [facility] - | | | | | | [facility] | | | | | | [facility] | | | | | | OF CARE | | | | | | TESTS | | + + + + + + | MONO %, POC | 15.8 (H) | 3.5 - 9.0 % | [facility] - | | | | | | [facility] | | | | | | [facility] POINT | | | | | | OF CARE | | | | | | TESTS | | + + + + + + | EOS %, POC | 2.3 | 1.0 - 3.0 % | [facility] - | | | | | | [facility] | | | | | | [facility] POINT | | | | | | OF CARE | | | | | | TESTS | | + + + + + + | BASO %, POC | 0.0 | 0.0 - 2.0 % | [facility] - | | | | | | [facility] | | | | | | [facility] POINT | | | | | | OF CARE | | | | | | TESTS | | + + + + + + | NEUTROPHIL# | 0.6 (L) | 1.8 - 7.7 | [facility] - | | | POC | | 10*3/uL | [facility] | | | | | | [facility]INT | | | | | | OF CARE | | | | | | TESTS | | + + + + + + | LYMPH# POC | 0.9 (L) | 1.0 - 4.8 | [facility] - | | | | | 10*3/uL | [facility] | | | | | | [facility] | | | | | | OF CARE | | | | | | TESTS | | + + + + + + | MONO #, POC | 0.3 | 0.1 - 0.9 | [facility] - | | | | | 10*3/uL | [facility] | | | | | | [facility] | | | | | | OF CARE | | | | | | TESTS | | + + + + + + | EOS #, POC | 0.0 | 0.0 - 0.5 | [facility] - | | | | | 10*3/uL | [facility] | | | | | | [facility] | | | | | | OF CARE | | | | | | TESTS | | + + + + + + | BASO #, POC | 0.0 | 0.0 - 0.1 | [facility] - | | | | | 10*3/uL | [facility] | | | | | | [facility] | | | | | | OF CARE | | | | | | TESTS | | + + + + + + | CBC | Imm Gran. | | [facility] - | | | COMMENT, | | | [facility] | | | POC | | | [facility] | | | | | | OF CARE | | | | | | TESTS | | + + + + + + + + | Specimen | + + | Blood | + + + + + + + | Performing | Address | City/State/Zipcode | Phone Number | | Organization | | | | + + + + + | [facility] | [address] | [place], [place] | | | [facility] | [facility] | [address] | | | TESTS | | | | + + + + + BMP + MAG, POC CHM (08/17/2016 1:20 PM PST) + +---------+ + + + | Component | Value | Ref Range | Performed | Pathologist | | | | | At | Signature | + +---------+ + + + | SODIUM, POC | 139 | 134 - 143 | [facility] - | | | | | mmol/L | [facility] | | | | | | [facility] | | | | | | OF CARE | | | | | | TESTS | | + +---------+ + + + | POTASSIUM, | 4.0 | 3.4 - 5.0 | [facility] - | | | POC | | mmol/L | [facility] | | | | | | [facility] | | | | | | OF CARE | | | | | | TESTS | | + +---------+ + + + | TOTAL CO2, | 26 | 22 - 29 mmol/L | [facility] - | | | POC | | | [facility] | | | | | | [facility] | | | | | | OF CARE | | | | | | TESTS | | + +---------+ + + + | CHLORIDE, | 104 | 97 - 108 mmol/L | [facility] - | | | POC | | | [facility] | | | | | | [facility] | | | | | | OF CARE | | | | | | TESTS | | + +---------+ + + + | GLUCOSE, | 94 | 60 - 99 mg/dL | [facility] - | | | POC | | | [facility] | | | | | | [facility] | | | | | | OF CARE | | | | | | TESTS | | + +---------+ + + + | CALCIUM | 9.3 | 8.6 - 10.2 | [facility] - | | | TOTAL, POC | | mg/dL | [facility] | | | | | | [facility] | | | | | | OF CARE | | | | | | TESTS | | + +---------+ + + + | BUN, POC | 11 | 6 - 20 mg/dL | [facility] - | | | | | | [facility] | | | | | | [facility], POINT | | | | | | OF CARE | | | | | | TESTS | | + +---------+ + + + | CREATININE, | 1.3 (H) | 0.6 - 1.1 mg/dL | [facility] - | | | POC | | | [facility] | | | | | | [facility] | | | | | | OF CARE | | | | | | TESTS | | + +---------+ + + + | LDH, POC | 239 (H) | 0 - 206 U/L | [facility] - | | | | | | [facility] | | | | | | [facility], POINT | | | | | | OF CARE | | | | | | TESTS | | + +---------+ + + + | MAGNESIUM, | 1.6 (L) | 1.8 - 2.5 mg/dL | [facility] - | | | POC | | | [facility] | | | | | | [facility] PO[facility] | | | | | | OF CARE | | | | | | TESTS | | + +---------+ + + + + + | Specimen | + + | | + + + + + + + | Performing | Address | City/State/Zipcode | Phone Number | | Organization | | | | + + + + + | [facility] | [address] | [place], [place] | | | [facility] | [address] | [address] | | | TESTS | | | | + + + + + HAPTOGLOBIN, SERUM (08/17/2016 12:56 PM PST) + +-------+ + + + | Component | Value | Ref Range | Performed | Pathologist | | | | | At | Signature | + +-------+ + + + | HAPTOGLOBIN | 61 | 30 - 200 mg/dL | [facility] | | | | | | [facility] - | | | | | | [place] | | + +-------+ + + + + + | Specimen | + + | Blood | + + + + + + + | Performing | Address | City/State/Zipcode | Phone Number | | Organization | | | | + + + + + | [facility] | [address] | [place] [address] | | | [place] | | | | + + + + + LIVER SET (AST,ALT,BILI TOTAL,BILI DIRECT,ALK PHOS,ALB,PROT TOTAL) (08/17/2016 12:56 PM PST ) + +---------+ + + + | Component | Value | Ref Range | Performed | Pathologist | | | | | At | Signature | + +---------+ + + + | ALBUMIN, | 3.7 | 3.5 - 4.7 g/dL | [facility] | | | PLASMA | | | LABORATORY | | | (LAB) | | | SERVICES, | | | | | | CORE | | + +---------+ + + + | BILIRUBIN | 0.3 | 0.3 - 1.2 mg/dL | [facility] | | | TOTAL | | | LABORATORY | | | | | | SERVICES, | | | | | | CORE | | + +---------+ + + + | BILIRUBIN | <0.1 | 0.0 - 0.3 mg/dL | [facility] | | | DIRECT | | | LABORATORY | | | | | | SERVICES, | | | | | | CORE | | + +---------+ + + + | ALK PHOS | 111 (H) | 42 - 98 U/L | [facility] | | | | | | LABORATORY | | | | | | SERVICES, | | | | | | CORE | | + +---------+ + + + | AST(SGOT) | 19 | <=41 U/L | [facility] | | | | | | LABORATORY | | | | | | SERVICES, | | | | | | CORE | | + +---------+ + + + | ALT (SGPT) | 22 | <=60 U/L | [facility] | | | | | | LABORATORY | | | | | | SERVICES, | | | | | | CORE | | + +---------+ + + + | TOTAL | 6.9 | 6.4 - 8.2 g/dL | [facility] | | | PROTEIN, | | | LABORATORY | | | PLASMA | | | SERVICES, | | | (LAB) | | | CORE | | + +---------+ + + + | AST CMNT | No Hemo | | [facility] | | | | | | LABORATORY | | | | | | SERVICES, | | | | | | CORE | | + +---------+ + + + | BILI T CMNT | No Hemo | | [facility] | | | | | | LABORATORY | | | | | | SERVICES, | | | | | | CORE | | + +---------+ + + + | BILI D CMNT | No Hemo | | [facility] | | | | | | LABORATORY | | | | | | SERVICES, | | | | | | CORE | | + +---------+ + + + + + | Specimen | + + | Blood | + + + + + + + | Performing | Address | City/State/Zipcode | Phone Number | | Organization | | | | + + + + + | [facility] | [address] | [place] [address] | | | SERVICES, CORE | [address] | | | + + + + + PHOSPHORUS, PLASMA (08/17/2016 12:56 PM PST) + +-------+ + + + | Component | Value | Ref Range | Performed | Pathologist | | | | | At | Signature | + +-------+ + + + | PHOSPHORUS, | 2.9 | 2.4 - 4.7 mg/dL | [facility] | | | PLASMA | | | LABORATORY | | | (LAB) | | | SERVICES, | | | | | | CORE | | + +-------+ + + + + + | Specimen | + + | Blood | + + + + + + + | Performing | Address | City/State/Zipcode | Phone Number | | Organization | | | | + + + + + | [facility] | [address] | [place] [address] | | | SERVICES, CORE | [address] | | | + + + + + documented in this encounter Visit Diagnoses + + | Diagnosis | + + | 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
--- OUTSIDE RECORDS SUMMARY | ~2019-01-06 | XMS | Clinical Summary ---
Demographics + + + | Address | [address] | | | [place] [address] | + + + | Home Phone | | + + + | Preferred Language | Unknown | + + + | Marital Status | | + + + | Zoroastrianism Affiliation | Unknown | + + + | Race | Unknown | + + + | Ethnic Group | Unknown | + + + Author + + + | Author | [facility] | + + + | Organization | [facility] | + + + | Address | Unknown | + + + | Phone | Unavailable | + + + Support + + + + + | Name | Relationship | Address | Phone | + + + + + | Qamar Wynne | ECON | [address] | | | | | [place] | | | | | [address] | | + + + + + Care Team Providers + +------+ + | Care Speedboat Operator Name | Role | Phone | [...] | [employer] | [facility]DS | [id number] | | | | | | HEALTH [...] | Self | [birth year] | Home: | [address] | | | tonia/[place]ie | | [phone] | [phone] [place] [address] | | | matthew | | | [phone] | | + +--------+ +--------+ + +"
--- OUTSIDE RECORDS SUMMARY | ~2019-01-06 | XMS | Encounter Summary ---
Demographics + + + | Address | [address] | | | [place] [address] | + + + | Home Phone | | + + + | Preferred Language | Unknown | + + + | Marital Status | | + + + | Anabaptism Affiliation | NON | + + + | Race | White | + + + | Ethnic Group | Not or | + + + Author + + + | Author | [facility] | + + + | Organization | [facility] | + + + | Address [...] Team Providers + +------+ + | Care Travel Accommodation Inspector Name | Role | Phone | + [...] + + | 07/05/ | Hospital | [facility] | | | | 2016 | Encounter | Floor [address] | | | | | | [facility] | | | | | | [facility] 14D | | | | | | [place], [place] | | | | | | [address] | | | | | | [phone] | | | +--------+ + + + [...] + + + | Blood Pressure | 113/71 | 07/05/2016 3:56 PM | | | | | PST | | + + + + + | Pulse | 117 | 07/05/2016 3:56 PM | | | | | PST | | + + + + + | Temperature | 37.3 C (99.2 F) | 07/05/2016 3:56 PM | | | | | PST | | + + + + + | Respiratory Rate | 18 | 07/05/2016 3:56 PM | | | | | PST | | + + + + + | Oxygen Saturation | 100% | 07/05/2016 12:45 PM | | | | | PST | | + + + + + | Inhaled Oxygen | - | - | | | Concentration | | | | + + + + + | Weight | - | - | | + + + + + | Height | - | - | | + + + + + | Body Mass Index | - | - | | + + + + + documented in this encounter Medications at Time of [...] | + +--------+ + + + | CULTURE, BLOOD BACTI | Routin | 07/05/2016 | Nodular sclerosis | Results for this | | & YEAST [facility] | e | 4:32 PM | Hodgkin lymphoma of | procedure are in the | | | | PST | lymph nodes of | results section. | | | | | multiple regions | | | | | | (HCC) | | + +--------+ + + + | CULTURE, BLOOD BACTI | Routin | 07/05/2016 | Nodular sclerosis | Results for this | | & YEAST | e | 4:32 PM | Hodgkin lymphoma of | procedure are in the | | | | PST | lymph nodes of | results section. | | | | | multiple regions | | | | | | (HCC) | | + +--------+ + + + | CULTURE, BLOOD BACTI | Routin | 07/05/2016 | Nodular sclerosis | Results for this | | & YEAST [facility] | e | 4:30 PM | Hodgkin lymphoma of | procedure are in the | | | | PST | lymph nodes of | results section. | | | | | multiple regions | | | | | | (HCC) | | + +--------+ + + + | PRODUCT CELL COUNT | Routin | 07/05/2016 | Nodular sclerosis | Results for this | | | e | 4:30 PM | Hodgkin lymphoma of | procedure are in the | | | | PST | lymph nodes of | results section. | | | | | multiple regions | | | | | | (HCC) | | + +--------+ + + + | CULTURE, BLOOD BACTI | Routin | 07/05/2016 | Nodular sclerosis | Results for this | | & YEAST | e | 4:30 PM | Hodgkin lymphoma of | procedure are in the | | | | PST | lymph nodes of | results section. | | | | | multiple regions | | | | | | (HCC) | | + +--------+ + + + | AUTO HPCA CRYO/STORE | Routin | 07/05/2016 | Nodular sclerosis | Results for this | | | e | 3:23 PM | Hodgkin lymphoma of | procedure are in the | | | | PST | lymph nodes of | results section. | | | | | multiple regions | | | | | | (HCC) | | + +--------+ + + + | PRODUCT CD34 STEM | Routin | 07/05/2016 | Nodular sclerosis | Results for this | | CELLS | e | 3:22 PM | Hodgkin lymphoma of | procedure are in the | | | | PST | lymph nodes of | results section. | | | | | multiple regions | | | | | | (HCC) | | + +--------+ + + + | PRODUCT MANUAL DIFF | Routin | 07/05/2016 | Nodular sclerosis | Results for this | | | e | 3:21 PM | Hodgkin lymphoma of | procedure are in the | | | | PST | lymph nodes of | results section. | | | | | multiple regions | | | | | | (HCC) | | + +--------+ + + + | PRODUCT CELL COUNT | Routin | 07/05/2016 | Nodular sclerosis | Results for this | | | e | 3:21 PM | Hodgkin lymphoma of | procedure are in the | | | | PST | lymph nodes of | results section. | | | | | multiple regions | | | | | | (HCC) | | + +--------+ + + + | CULTURE, BLOOD BACTI | Routin | 07/05/2016 | Nodular sclerosis | Results for this | | & YEAST [facility] | e | 3:20 PM | Hodgkin lymphoma of | procedure are in the | | | | PST | lymph nodes of | results section. | | | | | multiple regions | | | | | | (HCC) | | + +--------+ + + + | CULTURE, BLOOD BACTI | Routin | 07/05/2016 | Nodular sclerosis | Results for this | | & YEAST | e | 3:20 PM | Hodgkin lymphoma of | procedure are in the | | | | PST | lymph nodes of | results section. | | | | | multiple regions | | | | | | (HCC) | | + +--------+ + + + | PRODUCT RETYPE ONLY | Routin | 07/05/2016 | Nodular sclerosis | Results for this | | | e | 2:00 PM | Hodgkin lymphoma of | procedure are in the | | | | PST | lymph nodes of | results section. | | | | | multiple regions | | | | | | (HCC) | | + +--------+ + + + documented in this encounter Results CULTURE, BLOOD BACTI & YEAST [facility] (07/05/2016 4:32 PM PST) + + + + + + | Component | Value | Ref Range | Performed | Pathologist | | | | | At | Signature | + + + + + + | CULTURE | Final Report:No Bacteria | | [facility] | | | RESULT | or Yeast isolated at 5 | | LABORATORY | | | | days. | | SERVICES, | | | | | | CORE | | + + + + + + + + | Specimen | + + | [facility] - | | [facility] | + + + + + + + | Performing | Address | City/State/Zipcode | Phone Number | | Organization | | | | + + + + + | [facility] | [address] | [place] [address] | | | SERVICES, [place] | [address] | | | + + + + + CULTURE, BLOOD BACTI & YEAST [facility] (07/05/2016 4:30 PM PST) + + + + + + | Component | Value | Ref Range | Performed | Pathologist | | | | | At | Signature | + + + + + + | CULTURE | Final Report:No Bacteria | | [facility] | | | RESULT | or Yeast isolated at 5 | | LABORATORY | | | | days. | | SERVICES, | | | | | | CORE | | + + + + + + + + | Specimen | + + | [facility] - | | [facility] | + + + + + + + | Performing | Address | City/State/Zipcode | Phone Number | | Organization | | | | + + + + + | [facility] | [address] | [place] [address] | | | SERVICES, CORE | [address] | | | + + + + + PRODUCT CELL COUNT (07/05/2016 4:30 PM PST) + + + + + + | Component | Value | Ref Range | Performed | Pathologist | | | | | At | Signature | + + + + + + | PRODUCT | [id number] | | [facility] | | | IDENTIFIER | | | LABORATORY | | | | | | SERVICES, | | | | | | CORE | | + + + + + + | PRODUCT WBC | <0.1 | K/cu mm | [facility] | | | | | | LABORATORY | | | | | | SERVICES, | | | | | | CORE | | + + + + + + | PRODUCT RBC | <0.20 | M/cu mm | [facility] | | | | | | LABORATORY | | | | | | SERVICES, | | | | | | CORE | | + + + + + + | PRODUCT HGB | <0.6 | g/dL | [facility] | | | | | | LABORATORY | | | | | | SERVICES, | | | | | | CORE | | + + + + + + | PRODUCT HCT | <1.0 | % | [facility] | | | | | | LABORATORY | | | | | | SERVICES, | | | | | | CORE | | + + + + + + | PRODUCT PLT | 57 | K/cu mm | [facility] | | | | | | LABORATORY | | | | | | SERVICES, | | | | | | CORE | | + + + + + + + + | Specimen | + + | Stem cells | + + + + + + + | Performing | Address | City/State/Zipcode | Phone Number | | Organization | | | | + + + + + | [facility] | [address] | [place] [address] | | | SERVICES, CORE | [address] | | | + + + + + AUTO HPCA CRYO/STORE (07/05/2016 3:23 PM PST) + + + + + + | Component | Value | Ref Range | Performed | Pathologist | | | | | At | Signature | + + + + + + | PRODUCT | Auto HPC, Apheresis | | [facility] | | | TYPE | [id number] | | CELL | | | | | | PROCESSING | | | | | | LAB | | + + + + + + | COLLECTION | 07/05/2016 | | [facility] | | | DATE | | | CELL | | | PRODUCT | | | PROCESSING | | | | | | LAB | | + + + + + + | VOLUME | 184 | mL | [facility] | | | FROZEN | | | CELL | | | | | | PROCESSING | | | | | | LAB | | + + + + + + | TNC DOSE | 9.01 | x10 8/Kg | [facility] | | | | | | CELL | | | | | | PROCESSING | | | | | | LAB | | + + + + + + | TMNC DOSE | 8.20 | x10 8/Kg | [facility] | | | | | | CELL | | | | | | PROCESSING | | | | | | LAB | | + + + + + + | CD34 DOSE | 7.37 | x10 6/Kg | [facility] | | | | | | CELL | | | | | | PROCESSING | | | | | | LAB | | + + + + + + + + | Specimen | + + | [facility] PB[facility] | + + + + + + + | Performing | Address | City/State/Zipcode | Phone Number | | Organization | | | | + + + + + | [facility] | [address] | [place], [place] | | | PROCESSING LAB | [address] | [address] | | + + + + + PRODUCT CD34 STEM CELLS (07/05/2016 3:22 PM PST) + + + + + + | Component | Value | Ref Range | Performed | Pathologist | | | | | At | Signature | + + + + + + | PRODUCT | [id number] | | [facility] | | | IDENTIFIER | | | LABORATORY | | | | | | SERVICES, | | | | | | SPECIAL IMM | | | | | | + COAG | | + + + + + + | PRODUCT | 2.233 | X10*6 / mL | [facility] | | | CD34 | | | LABORATORY | | | POSITIVE | | | SERVICES, | | | CELLS | | | SPECIAL IMM | | | | | | + COAG | | + + + + + + | PRODUCT | 0.84 | % | [facility] | | | CD34 | | | LABORATORY | | | PERCENT | | | SERVICES, | | | | | | SPECIAL IMM | | | | | | + COAG | | + + + + + + + + | Specimen | + + | Stem cells | + + + + + + + | Performing | Address | City/State/Zipcode | Phone Number | | Organization | | | | + + + + + | [facility] | [address] | [place] [address] | | | SERVICES, SPECIAL | [address] | | | | IMM + COAG | | | | + + + + + PRODUCT MANUAL DIFF (07/05/2016 3:21 PM PST) + + + + + + | Component | Value | Ref Range | Performed | Pathologist | | | | | At | Signature | + + + + + + | PRODUCT | [id number] | | [facility] | | | IDENTIFIER | | | LABORATORY | | | | | | SERVICES, | | | | | | CORE | | + + + + + + | TOTAL | 200 | | [facility] | | | COUNTED,BP | | | LABORATORY | | | | | | SERVICES, | | | | | | CORE | | + + + + + + | PRODUCT | 91 | % | [facility] | | | MONONUCLEAR | | | LABORATORY | | | | | | SERVICES, | | | | | | CORE | | + + + + + + | PRODUCT | 9 | % | [facility] | | | OTHER | | | LABORATORY | | | | | | SERVICES, | | | | | | CORE | | + + + + + + + + | Specimen | + + | Stem cells | + + + + + + + | Performing | Address | City/State/Zipcode | Phone Number | | Organization | | | | + + + + + | [facility] | [address] | [place] [address] | | | ELISA, [place] | [address] | | | + + + + + PRODUCT CELL COUNT (07/05/2016 3:21 PM PST) + + + + + + | Component | Value | Ref Range | Performed | Pathologist | | | | | At | Signature | + + + + + + | PRODUCT | [id number] | | [facility] | | | IDENTIFIER | | | LABORATORY | | | | | | SERVICES, | | | | | | CORE | | + + + + + + | PRODUCT WBC | 273.2 | K/cu mm | [facility] | | | | | | LABORATORY | | | | | | SERVICES, | | | | | | CORE | | + + + + + + | PRODUCT RBC | 0.49 | M/cu mm | [facility] | | | | | | LABORATORY | | | | | | SERVICES, | | | | | | CORE | | + + + + + + | PRODUCT HGB | 1.0 | g/dL | [facility] | | | | | | LABORATORY | | | | | | SERVICES, | | | | | | CORE | | + + + + + + | PRODUCT HCT | 5.0 | % | [facility] | | | | | | LABORATORY | | | | | | SERVICES, | | | | | | CORE | | + + + + + + | PRODUCT PLT | 2,258 | K/cu mm | [facility] | | | | | | LABORATORY | | | | | | SERVICES, | | | | | | CORE | | + + + + + + + + | Specimen | + + | Stem cells | + + + + + + + | Performing | Address | City/State/Zipcode | Phone Number | | Organization | | | | + + + + + | [facility] | [address] | [place] [address] | | | SERVICES, [place] | [address] | | | + + + + + CULTURE, BLOOD BACTI & YEAST [facility] (07/05/2016 3:20 PM PST) + + + + + + | Component | Value | Ref Range | Performed | Pathologist | | | | | At | Signature | + + + + + + | CULTURE | Final Report:No Bacteria | | [facility] | | | RESULT | or Yeast isolated at 5 | | LABORATORY | | | | days. | | SERVICES, | | | | | | CORE | | + + + + + + + + | Specimen | + + | [facility] - PBSC - | | [facility] | + + + + + + + | Performing | Address | City/State/Zipcode | Phone Number | | Organization | | | | + + + + + | [facility] | [address] | [place] [address] | | | SERVICES, CORE | [address] | | | + + + + + PRODUCT RETYPE ONLY (07/05/2016 2:00 PM PST) + + + + + + | Component | Value | Ref Range | Performed | Pathologist | | | | | At | Signature | + + + + + + | PRODUCT | [id number] | | [facility] | | | IDENTIFIER | | | LABORATORY | | | | | | SERVICES, | | | | | | CORE | | + + + + + + | PRODUCT ABO | A | | [facility] | | | GROUP | | | LABORATORY | | | | | | SERVICES, | | | | | | CORE | | + + + + + + | PRODUCT RH | Positive | | [facility] | | | TYPE | | | LABORATORY | | | | | | SERVICES, | | | | | | CORE | | + + + + + + | TX SPECIMEN | HPC, APHERESIS | | [facility] | | | | | | LABORATORY | | | | | | SERVICES, | | | | | | CORE | | + + + + + + + + | Specimen | + + | Blood | + + + + + + + | Performing | Address | City/State/Zipcode | Phone Number | | Organization | | | | + + + + + | 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
--- OUTSIDE RECORDS SUMMARY | ~2019-01-06 | XMS | Encounter Summary ---
Demographics + + + | Address | [address] | | | [place] [address] | + + + | Home Phone | | + + + | Preferred Language | Unknown | + + + | Marital Status | | + + + | Jehovah'S Witness Affiliation | NON | + + + | Race | White | + + + | Ethnic Group | Not or | + + + Author + + + | Author | [facility] | + + + | Organization | [facility] | + + + | Address [...] Team Providers + +------+ + | Care Train Controller Name | Role | Phone | + +------+ + | Aashish Hilton MD | PCP | | + +------+ + Reason for Visit + + + | Reason | Comments | + + + | Social Work Notes | | + + + Encounter Details +--------+ + + + + | Date | Type | Department | Care Team | Description | +--------+ + + + + | 06/29/ | Documentati | [facility] for | Work, Social | Social Work Notes | | 2016 | on | Hematologic | | | | | | Malignancies at | | | | | | [facility] | | | | | | [address] | | | | | | [facility] | | | | | | Mailcode: [id number] | | | | | | Jonane Herman | | | | | | [place], [place] | | | | | | [address] | | | | | | [phone] | | | +--------+ + + + [...]
--- OUTSIDE RECORDS SUMMARY | ~2019-01-06 | XMS | Encounter Summary ---
Demographics + + + | Address | [address] | | | [place] [address] | + + + | Home Phone | | + + + | Preferred Language | Unknown | + + + | Marital Status | | + + + | Druze Affiliation | NON | + + + | Race | White | + + + | Ethnic Group | Not or | + + + Author + + + | Author | [facility] | + + + | Organization | [facility] | + + + | Address | [...] Team Providers + +------+ + | Care Assembly Instructions Writer Name | Role | Phone | + +------+ + | Aashish Hilton MD | PCP | | + +------+ + Encounter Details +--------+ + + + + | Date | Type | Department | Care Team | Description | +--------+ + + + + | 07/06/ | Telephone | Center for | Maura Lai, | | | 2015 | | Hematologic | RN [address] | | | | | Malignancies at | [facility] | | | | | [facility] | [place], [place] | | | | | [address] [facility] | [address] | | | | | [facility] | [phone] | | | | | Mailcode: [id number] | | | | | | [facility] | | | | | | [place], [place] | | | | | | [address] | | | | | | [phone] | | | +--------+ + + + [...]
--- OUTSIDE RECORDS SUMMARY | ~2019-01-06 | XMS | Encounter Summary ---
Demographics + + + | Address | [address] | | | [place] [address] | + + + | Home Phone | | + + + | Preferred Language | Unknown | + + + | Marital Status | | + + + | Quaker Affiliation | NON | + + + | Race | White | + + + | Ethnic Group | Not or | + + + Author + + + | Author | [facility] | + + + | Organization | [facility] | + + + | Address [...] Team Providers + +------+ + | Care Care Analyst Name | Role | Phone | + +------+ + | Aashish Hilton MD | PCP | | + +------+ + Encounter Details +--------+ + + + + | Date | Type | Department | Care Team | Description | +--------+ + + + + | 10/27/ | Documentati | Center for | Maura Lai, | | | 2017 | on | Hematologic | RN [address] | | | | | Malignancies at | [facility] | | | | | [facility] | [place], [place] | | | | | [address] [facility] | [address] | | | | | [facility] | [phone] | | | | | Mailcode: [id number] | | | | | | [facility] | | | | | | [place], [place] | | | | | | [address] | | | | | | [phone] | | | +--------+ + + + [...]
--- OUTSIDE RECORDS SUMMARY | ~2019-01-06 | XMS | Encounter Summary ---
Demographics + + + | Address | [address] | | | [place] [address] | + + + | Home Phone | | + + + | Preferred Language | Unknown | + + + | Marital Status | | + + + | Christian Affiliation | NON | + + + | Race | White | + + + | Ethnic Group | Not or | + + + Author + + + | Author | [facility] | + + + | Organization | [facility] | + + + | Address [...] Team Providers + +------+ + | Care Grease Press Helper Name | Role | Phone | + +------+ + | Aashish Hilton MD | PCP | | + +------+ + Reason for Visit + + + | Reason | Comments | + + + | Lab Draw | PICC | + + + | Hydration | | + + + | Transplant follow-up | | + + + | Dressing change | | + + + | Intravenous infusion | mag | + + + Benefits Check (Routine) +--------+--------+ + + + + | Status | Reason | Specialty | Diagnoses / | Referred By | Referred To | | | | | Procedures | Contact | Contact | +--------+--------+ + + + + | Closed | | Hematology | Diagnoses | Quirino Moreno | maciej Faculty | | | | Malignancy | Nodular | MD Ronak,PhD | [facility] [address] | | | | | sclerosis | [address] | [address] | | | | | Hodgkin | [place] | [facility] | | | | | lymphoma, | Rd | Mailcode: | | | | | lymph nodes | [place], [place] | [id number] | | | | | of multiple | [address] | [address] | | | | | sites | Phone: | Pavilion | | | | | | [phone] | [place], [place] | | | | | | Fax: | [address] | | | | | | [phone] | Phone: | | | | | | | [phone] | | | | | | | Fax: | | | | | | | [phone] | +--------+--------+ + + + + Encounter Details +--------+ + + + + | Date | Type | Department | Care Team | Description | +--------+ + + + + | 08/17/ | Clinical | Center for | | Lab Draw (PICC); | | 2017 | Support | Hematologic | | Hydration; | | | Staff | Malignancies at [facility] | | Transplant | | | | [address] | | follow-up; Dressing | | | | [facility] [address] | | change; Intravenous | | | | Mailcode: [id number] | | infusion (mag) | | | | [facility] | | | | | | [place], [place] | | | | | | [address] | | | | | | [phone] | | | +--------+ + + + [...] documented as of this encounter Progress Notes Reina Lakia, RN - 08/17/2016 12:40 PM CLARK Otero is a 20 y.o. 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 Patient reports she is feeling OK today but she does have nausea and is taking anti-emetics with good results. The patient denies colds, flu, fever, infection, vomiting, diarrhea, co nstipation, signs or symptoms of anemia, edema, skin rash, urinary issues, and signs or symp toms of bleeding. The patient reports that she is eating well despite nausea and drinking at least two liters of fluid daily. Power PICC accessed per protocol. Good blood return noted. Appropriate waste discarded. Labs drawn and sent. Power PICC pulse flushed with 20 mL NS. Patient scheduled for provide r visit today with Coreen CASTELLANOS. One liter NS given over 2 hours for elevated HR of 117 and creatinine of 1.3 Magnesium Sulfate 4 gm in divided doses mL NS infused over 2 hours per supportive care orde rs for a magnesium level of 1.6. Neupogen 480 mcg from floor stock injected subcutaneously to right arm per orders. No react ion noted. See MAR for details. For infusion details, see MAR. Dressing Change: Power PICC intact to right upper extremity without erythema or induration. Dressing removed, skin intact. No s/s exit site infection. 3 cm line exposed. Using a PI CC Dressing Change kit and sterile technique, site cleansed with Chloraprep. Skin prep appl ied prior to dressing application. Biopatch applied with SorbaView dressing. Positive pres sure valves changed to each port. All lumens pulse flushed with 10 mL NS. Patient tolerated procedure without difficulty. CBC poc sent to lab for CBC with diff.per provider request. Patient will RTC tomorrow for lab draw, a liter of NS and possible Xarxio or other infusions per Coreen CASTELLANOS documented in this encounter Plan of Treatment Not on filedocumented as of this encounter Procedures + +--------+ + + + | Procedure Name | Priori | Date/Time | Associated Diagnosis | Comments | | | ty | | | | + +--------+ + + + | CBC AND AUTO DIFF | Routin | 08/17/2016 | Nodular sclerosis | Results for this | | | e | 1:37 PM | Hodgkin lymphoma of | procedure are in the | | | | PST | lymph nodes of | results section. 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 | | | | | | status (HCC) | | + +--------+ + + + | CBC, WITH | Routin | 08/17/2016 | Nodular sclerosis | Results for this | | DIFFERENTIAL | e | 1:37 PM | Hodgkin lymphoma of | procedure are in the | | | | PST | lymph nodes of | results section. 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 | | | | | | status (HCC) | | + +--------+ + + + | CBC+DIFF,POC | Routin | 08/17/2016 | Nodular sclerosis | Results for this | | | e | 1:23 PM | Hodgkin lymphoma of | procedure are in the | | | | PST | lymph nodes of | results section. 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 | | | | | | status (HCC) | | + +--------+ + + + | BMP + MAG, POC CHM | Routin | 08/17/2016 | Nodular sclerosis | Results for this | | | e | 1:20 PM | Hodgkin lymphoma of | procedure are in the | | | | PST | lymph nodes of | results section. 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 | | | | | | status (HCC) | | + +--------+ + + + | LIVER SET | Routin | 08/17/2016 | Nodular sclerosis | Results for this | | (AST,ALT,BILI | e | 12:56 PM | Hodgkin lymphoma of | procedure are in the | | TOTAL,BILI | | PST | lymph nodes of | results section. | | DIRECT,ALK | | | multiple regions | | | PHOS,ALB,PROT TOTAL) | | | (HCC) Autologous | | | | | | bone marrow | | | | | | transplantation | | | | | | status (HCC) | | + +--------+ + + + | PHOSPHORUS, PLASMA | Routin | 08/17/2016 | Nodular sclerosis | Results for this | | | e | 12:56 PM | Hodgkin lymphoma of | procedure are in the | | | | PST | lymph nodes of | results section. 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 | | | | | | status (HCC) | | + +--------+ + + + | HAPTOGLOBIN | Routin | 08/17/2016 | Nodular sclerosis | Results for this | | | e | 12:56 PM | Hodgkin lymphoma of | procedure are in the | | | | PST | lymph nodes of | results section. 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 | | | | | | status (HCC) | | + +--------+ + + + | TREATMENT PARAMETERS | Routin | 08/17/2016 | Nodular sclerosis | | | #2 - [place] | e | 12:55 PM | Hodgkin lymphoma of | | | | | PST | lymph nodes of | | | | | | multiple regions | | | | | | (HCC) | | + +--------+ + + + | TREATMENT PARAMETERS | Routin | 08/17/2016 | Nodular sclerosis | | | #2 - [place] | e | 12:55 PM | Hodgkin lymphoma of | | | | | PST | lymph nodes of | | | | | | multiple regions | | | | | | (HCC) | | + +--------+ + + + | TREATMENT PARAMETERS | Routin | 08/17/2016 | Nodular sclerosis | | | #2 - [place] | e | 12:55 PM | Hodgkin lymphoma of | | | | | PST | lymph nodes of | | | | | | multiple regions | | | | | | (HCC) | | + +--------+ + + + | TREATMENT PARAMETERS | Routin | 08/17/2016 | Nodular sclerosis | | | #2 - [place] | e | 12:55 PM | Hodgkin lymphoma of | | | | | PST | lymph nodes of | | | | | | multiple regions | | | | | | (HCC) | | + +--------+ + + + | TREATMENT PARAMETERS | Routin | 08/17/2016 | Nodular sclerosis | | | #2 - [place] | e | 12:55 PM | Hodgkin lymphoma of | | | | | PST | lymph nodes of | | | | | | multiple regions | | | | | | (HCC) | | + +--------+ + + + | NURSING | Routin | 08/17/2016 | Nodular sclerosis | | | COMMUNICATION #3 - | e | 12:55 PM | Hodgkin lymphoma of | | | [place] | | PST | lymph nodes of | | | | | | multiple regions | | | | | | (HCC) | | + +--------+ + + + | NURSING | Routin | 08/17/2016 | Nodular sclerosis | | | COMMUNICATION #2 - | e | 12:55 PM | Hodgkin lymphoma of | | | [place] | | PST | lymph nodes of | | | | | | multiple regions | | | | | | (HCC) | | + +--------+ + + + | NURSING | Routin | 08/17/2016 | Nodular sclerosis | | | COMMUNICATION #1 - | e | 12:55 PM | Hodgkin lymphoma of | | | [place] | | PST | lymph nodes of | | | | | | multiple regions | | | | | | (HCC) | | + +--------+ + + + | TREATMENT PARAMETERS | Routin | 08/17/2016 | Nodular sclerosis | | | #1 - [place] | e | 12:55 PM | Hodgkin lymphoma of | | | | | PST | lymph nodes of | | | | | | multiple regions | | | | | | (HCC) | | + +--------+ + + + | TREATMENT PARAMETERS | Routin | 08/17/2016 | Nodular sclerosis | | | #1 - [place] | e | 12:55 PM | Hodgkin lymphoma of | | | | | PST | lymph nodes of | | | | | | multiple regions | | | | | | (HCC) | | + +--------+ + + + documented in this encounter Results CBC AND AUTO DIFF (08/17/2016 1:37 PM PST) + + + + + + | Component | Value | Ref Range | Performed | Pathologist | | | | | At | Signature | + + + + + + | WHITE CELL | 1.65 (L) | 3.50 - 10.80 | [facility] | | | COUNT | | K/cu mm | LABORATORY | | | | | | SERVICES, | | | | | | CORE | | + + + + + + | RED CELL | 2.75 (L) | 4.00 - 5.20 | [facility] | | | COUNT | | M/cu mm | LABORATORY | | | | | | SERVICES, | | | | | | CORE | | + + + + + + | HEMOGLOBIN | 8.4 (L) | 12.0 - 16.0 | [facility] | | | | | g/dL | LABORATORY | | | | | | SERVICES, | | | | | | CORE | | + + + + + + | HEMATOCRIT | 24.8 (L) | 36.0 - 46.0 % | [facility] | | | | | | LABORATORY | | | | | | SERVICES, | | | | | | CORE | | + + + + + + | MCV | 90.2 | 80.0 - 96.0 fL | [facility] | | | | | | LABORATORY | | | | | | SERVICES, | | | | | | CORE | | + + + + + + | MCHC | 33.9 | 33.0 - 35.5 | [facility] | | | | | g/dL | LABORATORY | | | | | | SERVICES, | | | | | | CORE | | + + + + + + | RDW SD | 44.7 | 35.1 - 46.3 fL | [facility] | | | | | | LABORATORY | | | | | | SERVICES, | | | | | | CORE | | + + + + + + | PLATELET | 26 (L) | 150 - 400 K/cu | [facility] | | | COUNT | | mm | LABORATORY | | | | | | SERVICES, | | | | | | CORE | | + + + + + + | MPV | 12.2 | 9.7 - 12.3 fL | [facility] | | | | | | LABORATORY | | | | | | SERVICES, | | | | | | CORE | | + + + + + + | NRBC% | 0.0 | 0.0 - 0.3 % | [facility] | | | | | | LABORATORY | | | | | | SERVICES, | | | | | | CORE | | + + + + + + | NRBC# | 0.00 | 0.00 - 0.02 | [facility] | | | | | K/cu mm | LABORATORY | | | | | | SERVICES, | | | | | | CORE | | + + + + + + | NEUTROPHIL | 29.7 (L) | 50.0 - 70.0 % | [facility] | | | % | | | LABORATORY | | | | | | SERVICES, | | | | | | CORE | | + + + + + + | LYMPHOCYTE | 51.5 (H) | 18.0 - 42.0 % | [facility] | | | % | | | LABORATORY | | | | | | SERVICES, | | | | | | CORE | | + + + + + + | MONOCYTE % | 15.2 (H) | 3.5 - 9.0 % | [facility] | | | | | | LABORATORY | | | | | | SERVICES, | | | | | | CORE | | + + + + + + | EOS % | 1.8 | 1.0 - 3.0 % | [facility] | | | | | | LABORATORY | | | | | | SERVICES, | | | | | | CORE | | + + + + + + | BASO % | 0.6 | 0.0 - 2.0 % | [facility] | | | | | | LABORATORY | | | | | | SERVICES, | | | | | | CORE | | + + + + + + | IG% | 1.2 (H)Comment: Immature | 0.0 - 0.6 % | [facility] | | | | Granulocytes (IG) | | LABORATORY | | | | include metamyelocytes, | | SERVICES, | | | | myelocytes and | | CORE | | | | promyelocytes. Bands | | | | | | are not included in the | | | | | | IG count. Bands are | | | | | | included in the | | | | | | neutrophil count. | | | | + + + + + + | NEUTROPHIL | 0.49 (L) | 1.80 - 7.70 | [facility] | | | # | | K/cu mm | LABORATORY | | | | | | SERVICES, | | | | | | CORE | | + + + + + + | LYMPHOCYTE | 0.85 (L) | 1.00 - 4.80 | [facility] | | | # | | K/cu mm | LABORATORY | | | | | | SERVICES, | | | | | | CORE | | + + + + + + | MONOCYTE # | 0.25 | 0.10 - 0.90 | [facility] | | | | | K/cu mm | LABORATORY | | | | | | SERVICES, | | | | | | CORE | | + + + + + + | EOS # | 0.03 | 0.00 - 0.50 | [facility] | | | | | K/cu mm | LABORATORY | | | | | | SERVICES, | | | | | | CORE | | + + + + + + | BASO # | 0.01 | 0.00 - 0.10 | [facility] | | | | | K/cu mm | LABORATORY | | | | | | SERVICES, | | | | | | CORE | | + + + + + + | IG# | 0.02 | 0.00 - 0.03 | [facility] | | | | | K/cu mm | LABORATORY | | | | | | SERVICES, | | | | | | CORE | | + + + + + + + + | Specimen | + + | Blood | + + + + + | Narrative | Performed At | + + + | New adult WBC reference ranges effective June 30, 2016. | [facility] | | Immature Granulocytes (IG) include metamyelocytes, myelocytes and | LABORATORY | | promyelocytes. Bands are not included in the IG count. Bands are | SERVICES, CORE | | included in the neutrophil count. | | + + + + + + + + | Performing | Address | City/State/Zipcode | Phone Number | | Organization | | | | + + + + + | [facility] | [address] | [place] [address] | | | SERVICES, CORE | [address] | | | + + + + + CBC+DIFF,POC (08/17/2016 1:23 PM PST) + + [...] | | | | | g/dL | [facility] | | | | | | MERRY [facility] | | | | | | OF CARE | | | | | | TESTS | | + + + + + + | RDW SD, POC | 42.0 | 35.1 - 46.3 fL | [facility] - | | | | | | [facility] | | | | | | MERRY [...] [place] | | | | | | [place], POINT | | | | | | [...] - | | | | | | [place] | | | | | | ALYSSA, POINT | | | | | | OF CARE | | | | | | TESTS | | + + + + + + | BASO %, POC | 0.0 | 0.0 - 2.0 % | [facility] - | | | | | | [facility] | | | | | | AL[place]SS[place], POINT | | | | | | OF CARE | | | | | | TESTS | | + + + + + + | NEUTROPHIL# | 0.6 (L) | 1.8 - 7.7 | [facility] - | | | POC | | 10*3/uL | [facility] | | | | | | [place]A POINT | | | | | | OF CARE | | | | | | TESTS | | + + + + + + | LYMPH# POC | 0.9 (L) | 1.0 - 4.8 | [facility] - | | | | | 10*3/uL | [facility] | | | | | | ALYSSA [...] | | | COMMENT, | | | [place] | | | POC | | | ALYSSA POINT | | [...] | [facility] | [address] | [place], [place] | | | ALYSSA POINT OF CARE | [address] | [address] | | | TESTS | | | | + + + + + BMP + SWATI CHOI (08/17/2016 1:20 PM PST) + +---------+ + + + | Component | Value | Ref Range | Performed | Pathologist | | | | | At | Signature | + +---------+ + + + | SODIUM, POC | 139 | 134 - 143 | [facility] - | | | | | mmol/L | [facility] | | | | | | [facility]Y [facility] | | | | | | OF CARE | | | | | | TESTS | | + +---------+ + + + | POTASSIUM, | 4.0 | 3.4 - 5.0 | [facility] - | | | POC | | mmol/L | [facility] | | | | | [...] | TOTAL, POC | | mg/dL | [place] | | | | | | MERRY [...] - | | | | | | [place] | | | | | | ALYSSA [...] + + | [facility] | [address] | [place], [place] | | | ALYSSA POINT OF CARE | [address] | [address] | | | TESTS | | | [...] + | [facility] - | [address] | [place] [address] | | | [place] | | | [...] + | [facility] | [address] | [place] [address] | | | SERVICES, CORE | BLANCHE [...] | + + + + + | [facility] | [address] | [place] [address] | | | SERVICES, SCOOBY | BLANCHE [...] transplant | + + documented in this encounter Administered Medications + +--------+ +---------+------+--------+ | Medication Order | MAR | Action | Dose | Rate | Site | | | Action | Date | | | | + +--------+ +---------+------+--------+ | filgrastim-sndz (RAMONA) | Given | 08/17/19 | 480 mcg | | Right | | injection 480 mcg 480 mcg, | | 17 2:00 | | | Arm | | subcutaneous, ONCE, 1 dose, Tue | | PM PST | | | | | 08/17/16 at 1400 | | | | | | + +--------+ +---------+------+--------+ +---+---+ | | | +---+---+ + +---------+ +-----+ +---+ | magnesium sulfate in water IV | New Bag | 08/17/19 | 2 g | 50 mL/hr | | | (RTU) 2 g 2 g, intravenous, | | 17 1:15 | | | | | ONCE, 1 dose, 08/17/16 at 1300 | | PM PST | | | | + +---------+ +-----+ +---+ +---+---+ | | | +---+---+ + +---------+ +-----+ +---+ | magnesium sulfate in water IV | New Bag | 08/17/19 | 2 g | 50 mL/hr | | | (RTU) 2 g 2 g, intravenous, | | 17 2:05 | | | | | ONCE, 1 dose, 08/17/16 at 1345 | | PM PST | | | | + +---------+ +-----+ +---+ +---+---+ | | | +---+---+ + +---------+ + +-------+---+ | NaCl 0.9 % solution 1,000 mL, | New Bag | 08/17/19 | 1,000 mL | 500 | | | intravenous, ONCE, 1 dose, Tue | | 17 1:15 | | mL/hr | | | 08/17/16 at 1300 | | PM PST | | | | + +---------+ + +-------+---+ +---+---+ | | | +---+---+ documented in this encounter"
--- OUTSIDE RECORDS SUMMARY | ~2019-01-06 | XMS | Encounter Summary ---
Demographics + + + | Address | [address] | | | [place] [address] | + + + | Home Phone | | + + + | Preferred Language | Unknown | + + + | Marital Status | | + + + | Mormon Affiliation | NON | + + + [...] Team Providers + +------+ + | Care Table Assembler Metal Name | Role | Phone | + +------+ + | Aashish Hilton MD | PCP | | + +------+ + Reason for Visit Benefits Check (Routine) +--------+--------+ + + + + | Status | Reason | Specialty | Diagnoses / | Referred By | Referred To | | | | | Procedures | Contact | Contact | +--------+--------+ + + + + | Closed | | Hematology | Diagnoses | Quirino Moreno | Chm Faculty | | | | Malignancy | Nodular | MD Ronak,PhD | [facility] [address] | | | | | sclerosis | [address] | [address] | | | | | Hodgkin | [facility] | [facility] | | | | | lymphoma, | Rd | Mailcode: | | | | | lymph nodes | [place], [place] | [id number] | | | | | of multiple | [address] | [facility] | | | | | sites | Phone: | Pavilion | | | | | | [phone] | [place], [place] | | | | | | Fax: | [address] | | | | | | [phone] | Phone: | | | | | | | [phone] | | | | | | | Fax: | | | | | | | [phone] | +--------+--------+ + + + + Encounter Details +--------+---------+ + + + | Date | Type | Department | Care Team | Description | +--------+---------+ + + + | 08/26/ | Office | Center for | Quirino Moreno I, | Nodular sclerosis | | 2017 | Visit | Hematologic | ,PhD [address] [facility] | Hodgkin lymphoma of | | | | Malignancies at | [facility] [address] | lymph nodes of | | | | [facility] | [place], [place] | multiple regions | | | | [address] [facility] | [address] | (HCC) (Primary Dx); | | | | [address] | [phone] | HUS (hemolytic | | | | Mailcode: [id number] | | uremic syndrome), | | | | 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
--- OUTSIDE RECORDS SUMMARY | ~2019-01-06 | XMS | Encounter Summary ---
Demographics + + + | Address | [address] | | | [place] [address] | + + + | Home Phone | | + + + | Preferred Language | Unknown | + + + | Marital Status | | + + + | Anabaptism Affiliation | NON | + + + | Race | White | + + + | Ethnic Group | Not or | + + + Author + + + | Author | [facility] | + + + | Organization | [facility] | + + + | Address [...] Team Providers + +------+ + | Care Principal Bioinformatics Specialist Name | Role | Phone | + +------+ + | Aashish Hilton MD | PCP | | + +------+ + Encounter Details +--------+ + + + + | Date | Type | Department | Care Team | Description | +--------+ + + + + | 07/05/ | Document-Sc | Health Information | Unknown . | | | 2016 | ann | Services [address] | | | | | | [address] | | | | | | Road Mailcode: | | | | | | [id number] [place] | | | | | | [facility] | | | | | | [place], [place] | | | | | | [address] | | | | | | [phone] | | | +--------+ + + + [...]
--- OUTSIDE RECORDS SUMMARY | ~2019-01-06 | XMS | Encounter Summary ---
Demographics + + + | Address | [address] | | | [place] [address] | + + + | Home Phone | | + + + | Preferred Language | Unknown | + + + | Marital Status | | + + + | Gnosticism Affiliation | NON | + + + | Race | White | + + + | Ethnic Group | Not or | + + + Author + + + | Author | [facility] | + + + | Organization | [facility] | + + + | Address | [...] Team Providers + +------+ + | Care Vice President Risk Management Name | Role | Phone | + +------+ + | No Pcp Per Patient | PCP | Unavailable | + +------+ + Encounter Details +--------+ + + + + | Date | Type | Department | Care Team | Description | +--------+ + + + + | 04/02/ | Document-Sc | [facility] | No Pcp Per Patient | | | 2016 | anned | [facility] | NO PCP PER PATIENT | | | | | Internal Medicine | | | | | | [address] | | | | | | [place] | | | | | | [address] | | | | | | [phone] | | | +--------+ + + + [...]
--- OUTSIDE RECORDS SUMMARY | ~2019-01-06 | XMS | Encounter Summary ---
Demographics + + + | Address | [address] | | | [place] [address] | + + + | Home Phone | | + + + | Preferred Language | Unknown | + + + | Marital Status | | + + + | Latter-Day Affiliation | NON | + + + | Race | White | + + + | Ethnic Group | Not or | + + + Author + + + | Author | [facility] | + + + | Organization | [facility] | + + + | Address [...] Team Providers + +------+ + | Care Online User Experience Strategist Name | Role | Phone | + +------+ + | No Pcp Per Patient | PCP | Unavailable | + +------+ + Encounter Details +--------+ + + + + | Date | Type | Department | Care Team | Description | +--------+ + + + + | 06/17/ | Documentati | Center for | Work, Social | | | 2016 | on | Hematologic | | | | | | Malignancies at | | | | | | [facility] | | | | | | [address] | | | | | | [facility] | | | | | | Mailcode: [id number] | | | | | | [facility] | | | | | | [place], [place] | | | | | | [address] | | | | | | [phone] | | | +--------+ + + + [...]
--- OUTSIDE RECORDS SUMMARY | ~2019-01-06 | XMS | Encounter Summary ---
Demographics + + + | Address | [address] | | | [place] [address] | + + + | Home Phone | | + + + | Preferred Language | Unknown | + + + | Marital Status | | + + + | Gnosticist Affiliation | NON | + + + | Race | White | + + + | Ethnic Group | Not or | + + + Author + + + | Author | [facility] | + + + | Organization | [facility] | + + + | Address [...] Team Providers + +------+ + | Care Entomology Professor Name | Role | Phone | + +------+ + | Aashish Hilton MD | PCP | | + +------+ + Encounter Details +--------+ + + + + | Date | Type | Department | Care Team | Description | +--------+ + + + + | 06/25/ | Telephone | Center for | Maura Lai, | | | 2015 | | Hematologic | RN [address] | | | | | Malignancies at | [facility] | | | | | [facility] | [place], [place] | | | | | [address] [facility] | [address] | | | | | [facility] | [phone] | | | | | Mailcode: [id number] | | | | | | [facility] | | | | | | [place], [place] | | | | | | [address] | | | | | | [phone] | | | +--------+ + + + [...]
--- OUTSIDE RECORDS SUMMARY | ~2019-01-06 | XMS | Encounter Summary ---
Demographics + + + | Address | [address] | | | [place] [address] | + + + | Home Phone | | + + + | Preferred Language | Unknown | + + + | Marital Status | | + + + | Jain Affiliation | NON | + + + [...] Team Providers + +------+ + | Care Shredder Operator Name | Role | Phone | + +------+ + | No Pcp Per Patient | PCP | Unavailable | + +------+ + Reason for Visit Intake Referral (Routine) +--------+--------+ + + + + | Status | Reason | Specialty | Diagnoses / | Referred By | Referred To | | | | | Procedures | Contact | Contact | +--------+--------+ + + + + | Closed | | Hematology | Diagnoses | Aniceto, | Quirino Moreno | | | | Malignancy | Relapsed | Anh Castle MD | MD Ronak,PhD | | | | | Hodgkins | [facility] | [address] | | | | | Lymphoma | MED GRP | [facility] | | | | | | PEDIATRIC | [address] [place], | | | | | | [address] | [place] | | | | | | [facility] | [address] | | | | | | [address] | Phone: | | | | | | [place], | [phone] | | | | | | [place] [address] | Fax: | | | | | | Phone: | [phone] | | | | | | [phone] | | | | | | | Fax: | | | | | | | [phone] | | +--------+--------+ + + + + Encounter Details +--------+---------+ + + + | Date | Type | Department | Care Team | Description | +--------+---------+ + + + | 03/31/ | Office | Center for | Quirino Moreno I, | Nodular sclerosis | | 2016 | Visit | Hematologic | ,PhD [address] [facility] | Hodgkin lymphoma of | | | | Malignancies at | [facility] [address] | lymph nodes of | | | | [facility] | [place], [place] | multiple regions | | | | [address] | [address] | (HCC) (Primary Dx); | | | | [address] | [phone] | HUS (hemolytic | | | | Mailcode: UHN73A | | uremic syndrome), | | | | [facility] | | atypical (HCC) | | | | [place], [place] | | | | | | [address] | | | | | | [phone] | | | +--------+---------+ + + + [...] + + + | Blood Pressure | 123/82 | 03/31/2016 2:41 PM | | | | | PDT | | + + + + + | Pulse | 121 | 03/31/2016 2:41 PM | | | | | PDT | | + + + + + | Temperature | 36.7 C (98 F) | 03/31/2016 2:41 PM | | | | | PDT | | + + + + + | Respiratory Rate | 18 | 03/31/2016 2:41 PM | | | | | PDT | | + + + + + | Oxygen Saturation | 100% | 03/31/2016 2:41 PM | | | | | PDT | | + + + + + | Inhaled Oxygen | - | - | | | Concentration | | | | + + + + + | Weight | 84.7 kg (186 lb 11.7 | 03/31/2016 2:41 PM | | | | oz) | PDT | | + + + + + | Height | 178 cm (5' 10.08") | 03/31/2016 2:41 PM | | | | | PDT | | + + + + + | Body Mass Index | 26.73 | 03/31/2016 2:41 PM | | | | | PDT | | + + + + + documented in this encounter Patient Instructions Patient Instructions Maura Lai RN - 03/31/2016 3:03 PM PDTGood afternoon it is ni ce to meet you. Dr. Moreno has discussed your past medical history including treatments, scans and biopsy results. You report having no unusual symptoms and no pain at this time. You hav e a port-a-cath. Dr. Moreno would also like you to see a kidney specialist here at [facility]. He will arrange this referral and their office will contact you. At this time the best course of treatment would involve autologous stem cell transplant. Auto transplant is usually a 5 step process: STEP 1) Active treatment (3 cycles of chemotherapy, GDP) to get the disease under control. This is given outpatient on Days 1 and Day 8, every 3 weeks for 3 cycles. STEP 2) Pre-transplant evaluations- to make sure disease is under control and you are healt hy enough to undergo the transplant. These tests include, labs, bone marrow biopsy, lung fun ction test, heart function tests, ekg, and an education class for you and your caregiver as well as a meeting with Jenny Jimenez our social security benefits interviewer to help you if you need any other assi stance. We can usually coordinate this to happen here at [facility] over one to two days. Some sharmin ting can be obtained in facilities closer to home, perhaps with Dr. Hilton. After the tests you'll meet with Dr. Moreno to review the test results and sign the consent f orms for the collection of stem cells and transplant. STEP 3) Mobilization- (getting the stem cells out of your bone marrow into your blood) This is done by giving you 4 days of shots with a drug called Neupogen to stimulate the marrow t o produce so many cells and it pushes them into your blood. (depending on your insurance this might be done at home or here in our office) STEP 4) Stem Cell Collection- this usually starts on day 4 (after you have received the wei ts) It's done outpatient here at [facility] and lasts about 3-4 hours. Sometimes people will need to collect on more than one day. We will let you know if this is necessary. STEP 5) Transplant- after collection occurs, you will proceed to transplant. This can happe n anywhere from days to weeks later. You will admit to [facility] for your conditioning regimen of chemotherapy and will then receive your stem cells back through an infusion. This is about a 3 week hospitalization while you recover. After transplant you will need to be living close to [facility] (within 30 miles) for up to 45 da ys and you'll be coming to the clinic regularly and at that time will need a caregiver or ca regiver team 07/03. The caregiver will assist you with transportion, medications, meal prepar ation etc. has discussed collection, mobilization and the transplant process as well as sharyn rodriguez treatment after transplant. If you have any questions, or if you need prescription refills, or are experiencing any sym ptoms or side effects please call our menagerie superintendent at [phone] Jeanette Lai RN, BMTCN Oncology Nurse Coordinator [facility] [address] [place], [place] [address] tel [phone] fax [phone] email [email or web address] documented in this encounter Progress Notes Quirino Moreno MD,PhD - 04/04/2016 4:28 PM PDTFormatting of this note might be different fr om the original. [facility] Center for Hematologic Malignancies Assessment & Plan: 20 F, classical Hodgkins, early relapse stg 2 bulky S/p pediatric A(B)VE-PC x4 to CR with bleo omitted c2-4 Then low dose RT 21 Gy Early relapse in radiation field, Bx+ Standard approach for relapsed Hodgkins is salvage followed by autoBMT Would use power GDP regimen for salvage - not ICE since already received etoposide in ABVE - also not GVD since early relapse after dox & vinca Plan GDP x3 Then restage with PET & BMBx - also standard pre-BMT cardiac echo & PFTs If excellent response & tolerance, would proceed to mobilization and autoBMT. This is based on 2 randomized studies which found improved EFS with autoBMT in chemosensitive re lapsed/refractory Hodgkins and is in accordance with NCCN guidelines. Odds of durable response 40-50% with autoBMT. However, she is at higher risk for failing due to early relapse, so would plan on adding br entuximab maintenance post-BMT which improves PFS in randomized study of high risk patients post-auto. Discussed rationale, logistics, and risks of autoBMT - including typical toxicities, long h ospitalization, caregiver requirement, close follow-up, staying in area, prolonged recovery, and risks of life threatening complications and treatment related mortality. Also reviewed stem cell mobilization. Because of distance/logistics, will refer her to Dr Hilton in [place] fo r salvage therapy For her atypical HUS/ecalizumab and DVTs/anticoagulation, have discussed her unusual case w reynaldo Michael who will see her next wk Defer to him for management of those issues Will see her back here when ready for mobilization/autoBMT Quirino Moreno MD [email or web address] Pediatric Heme/Onc: Anh Moreland MD ([place]) Nephrology: Raghav Miller MD ([place]) 04/2015 presented with flank pain CT C/A/P: 11 cm anterior mediastinal mass, pleural effusion & L supraclav adenopathy Needle bx: classical hodgkins, nodular sclerosing type Thoracentesis: reactive/benign BMBx: neg PET: bulky mediastinal mass, SUV 16; bilateral neck SUV 15; also R>L pleural effusion 05/10/15 began ABVE-PC (as per pediatric [id number]) - Dox 30 mg/m2 d1,2 - Bleo 5 U/m2 d1,8 - Vcr 1.4 mg/m2 d1,8 - Etop 75 mg/m2, d1,2,3,4 - Pred 40 mg/m2, d1-10 - Cy 800 mg/m2 d1 Above chemo given through FEMORAL line 05/16/15 presented with sepsis & ATN, requiring prolonged ICU stay - RLE DVT, attempted thrombolysis - then DVT L femoral line - also C Diff with severe diarrhea - anticoagulation attempted with heparin but thrombocytopenic - then severe hemoptysis, microangiopathy, acute kidney injury - 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 -> tx high dose steroids + plasma exchange but poor response -> then ecalizumab with rapid clinical improvement Continued on ecalizumab ever since - note: genetic testing not checked as denied by insurance 06/18/15 A(B)VE-PC #2 (omit bleo) - complicate by neutropenic fever/admit & recurrent hemoptysis - DVT R popliteal - decubitus ulcer 07/14/15 A(B)VE-PC #3 - complicate by admit for neutropenic fever 08/11/15 A(B)VE-PC #4 - complicate by admit for neutropenic fever 08/2015 CR by PET with [...] L neck: classical Hodgkins Above therapy in [place] Just moved to [place] Very concerned about getting set up to continue ecalizumab - wants to arrange in [place] No significant neuropathy Denies night sweats, weight loss, fevers, infxns, cough Complete ROS otherwise negative Central Access: PORT Allergies Allergen Reactions Promethazine Pruritus and Rash Dystonic reaction Sulfacetamide Sodium Hives and Dyspnea Severe hives Current Outpatient Prescriptions Medication Sig ECULIZUMAB (SOLIRIS IV) Inject into the vein (IV). enoxaparin (LOVENOX) 60 mg/0.6 mL subcutaneous syringe Inject under the skin (SUBC). enoxaparin 60 mg/0.6 mL subcutaneous syringe Inject 0.6 mL under the skin (SUBC) every twelve hours. escitalopram oxalate (LEXAPRO) 10 mg oral tablet Take by mouth. Past Medical History Diagnosis Date Hodgkins lymphoma (HCC) HUS (hemolytic uremic syndrome), atypical (HCC) Anxiety Eczema DVT (deep venous thrombosis) (HCC) Decubitus ulcer C. 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 No cig/drugs Physical Exam: PS ECOG 0 BP 123/82 | Pulse 121 | Temp (Src) 36.7 C (98 F) (Oral) | RR 18 | Ht 1.78 m (5' 10.08") | Wt 84.7 kg (186 lb 11.7 oz) | SpO2 100% | LMP 03/16/2016 | BMI 26.73 kg/(m^2) Constitutional: well appearing Eyes: anicteric ENT: oropharynx clear Lungs: clear to auscultation Cardiac: regular rate and rhythmn Abdomen: soft, nontender, no mass Musculoskeletal: no edema Skin: no bruising Neuro: motor nonfocal Nodes: NO palpable adenopathy Labs 02/2016 WBC 5.8, Hgb 12, Hct 36, Plt 293, ANC 4.3, ALC 0.9 Cr 0.5, LFTs nl, Alb 4.3 LDH nl Left cervical lymph node, biopsy ([id number], 03/16/2016): - Nodular sclerosis, classical Hodgkin's lymphoma - positive for CD15 and CD30. PAX-5 dim and CD20 negative PET/CT 03/11/16 There is a hypermetabolic left internal jugular chain lymph node with a max SUV of 8.2 g/mL (axial diffusion image 52). Again seen is an anterior mediastinal soft tissue mass. There are several punctate hypermetabolic foci identified within this mass with the most hypermetabolic measuring 4.8 g/mL. No other suspicious uptake is identified in the neck, chest, abdomen or pelvis. Again noted is prominent physiologic uptake within brown fat in the upper chest and back. CT 03/02/16 low left internal jugular chain lymph node increased in size, now measuring 1.5 x 1.3 cm Enlarging left thoracic inlet lymph nodes measure up to 9 mm short axis. 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
--- OUTSIDE RECORDS SUMMARY | ~2019-01-06 | XMS | Encounter Summary ---
Demographics + + + | Address | [address] | | | [place] [address] | + + + | Home Phone | | + + + | Preferred Language | Unknown | + + + | Marital Status | | + + + | Yarsani Affiliation | NON | + + + | Race | White | + + + | Ethnic Group | Not or | + + + Author + + + | Author | [facility] | + + + | Organization | [facility] | + + + | Address | Unknown | + + + | Phone | Unavailable | + + + Support + + +---------+ + | Name | Relationship | Address | Phone | + + +---------+ + | Qamar Wynne | ECON | Unknown | | + + +---------+ + | Merlyn Oetro | ECON | Unknown | | + + +---------+ + | Raffy Otero | ECON | Unknown | | + + +---------+ + Care Team Providers + +------+ + | Care Inspectors And Regulatory Officers Name | Role | Phone | + +------+ + | Aashish Hilton MD | PCP | | + +------+ + Encounter Details +--------+ + + + + | Date | Type | Department | Care Team | Description | +--------+ + + + + | 07/05/ | Telephone | Center for | Maura Lai, | | | 2015 | | Hematologic | RN [address] | | | | | Malignancies at | [facility] | | | | | [facility] | [place], [place] | | | | | [address] [facility] | [address] | | | | | [facility] | [phone] | | | | | Mailcode: UHN73A | | | | | | [facility] | | | | | | [place], [place] | | | | | | [address] | | | | | | [phone] | | | +--------+ + + + [...]
--- OUTSIDE RECORDS SUMMARY | ~2019-01-06 | XMS | Encounter Summary ---
Demographics + + + | Address | [address] | | | [place] [address] | + + + | Home Phone | | + + + | Preferred Language | Unknown | + + + | Marital Status | | + + + | Oriental Orthodox Affiliation | NON | + + + | Race | White | + + + | Ethnic Group | Not or | + + + Author + + + | Author | [facility] | + + + | Organization | [facility] | + + + | Address [...] Team Providers + +------+ + | Care Machine Operators Name | Role | Phone | + [...] | +--------+ + + + + | 07/30/ | Anesthesia | 6A Intra Op [facility] | Bryan Barber, | | | 2016 | Event | [facility] | FRAMING MECHANIC [address] | | | | | Admitting Desk | [facility] | | | | | Located on the | [place], [place] | | | | | floor [address] [facility] | [address] | | | | | [facility] | [phone] | | | | | [place], [place] | | | | | | [address] | | | +--------+ + + + + Anesthesia Record + + + + + | Procedure Name | Responsible | Anesthesia Start | Anesthesia Stop Time | | | Anesthesiologist | Time | | + + + + + | PORT REMOVAL (Right | Tanvi Berman MD | 07/30/16 0755 | 07/30/16 0848 | | Chest) | | | | + + + + + +----+---+ + + | Da | T | Event | Comment | | te | i | | | | | m | | | | | e | | | +----+---+ + + | 12 | 0 | Eq Check | Anesthesia machine checked Equipment verified | | /1 | 6 | | | | 6/ | 5 | | | | 20 | 5 | | | | 16 | | | | +----+---+ + + | | 0 | Pt. Check | Prior to anesthesia start, pt. Identified, examined, chart | | | 7 | | reviewed, PARQ held, anesthetic plan made or approved by | | | 1 | | attending anesthesiologist. NPO status confirmed as appropriate | | | 5 | | for procedure Preoperative evaluation: unchanged | +----+---+ + + | | 0 | An Start | | | | 7 | | | | | 5 | | | | | 5 | | | +----+---+ + + | | 0 | An Start | | | | 7 | Data | | | | 5 | | | | | 5 | | | +----+---+ + + | | 0 | O2 by FM | | | | 8 | | | | | 0 | | | | | 0 | | | +----+---+ + + | | 0 | Vitals | Monitors applied Vital signs checked Patient ready for anesthesia | | | 8 | Checked | | | | 0 | | | | | 4 | | | +----+---+ + + | | 0 | Incision | | | | 8 | | | | | 0 | | | | | 6 | | | +----+---+ + + | | 0 | Pause | | | | 8 | | | | | 2 | | | | | 1 | | | +----+---+ + + | | 0 | Abx held | Contraindicated, or not indicated for this procedure, or already | | | 8 | Medical or | receiving antibiotics | | | 2 | Surgical | | | | 1 | Reason | | +----+---+ + + | | 0 | Surgery end | | | | 8 | | | | | 4 | | | | | 4 | | | +----+---+ + + | | 0 | an stop | | | | 8 | data | | | | 4 | | | | | 4 | | | +----+---+ + + | | 0 | Anesthesia | | | | 8 | End | | | | 4 | | | | | 8 | | | +----+---+ + + +------+ | Meds | +------+ + + + | Name | Total | + + + | desmopressin (DDAVP) IV 30.4 mcg | 30.4 mcg | + + + | midazolam | 2 mg | + + + | propofol INF | 1,114,300 mcg | + + + | LR | 900 mL | + + + + + | Name | + + | Air FR Avance (l/min) | + + | O2 Flow Rate (Total Liters) | + + + + | No blood administrations on file. | + + +--------+ + + + | Type | Details | Placement | Removal | +--------+ + + + | Port/P | Right; Chest portacath; Single; | 04/07/16 1639 by | 07/30/16 0930 by | | ortaca | 07/30/16; 30; Suspected | | Priscila Molina RN | | th | Infection | | | +--------+ + + + | Periph | Left; Wrist; 18 g; 08/03/16; | 07/30/16 0904 by | 08/03/16 1056 by | | eral | 1056; Per protocol | | Ophelia Ayers RN | | IV | | | | +--------+ + + + | [facility] | 07/05/16; 1131; Dr. Helen Dr. | 07/05/16 1131 by Tawny | 08/07/16 1450 by | | rico Line | Isidro; Tunneled, | Destiny | Matheus Olsen RN | | - | Open-ended; No; Right; Chest; | | | | Double | 13.5 Fr. (Reece DL 13.5fr./23cm | | | | Lumen | tip to cuff); Internal Jugular; | | | | | [id number]; 08/07/16; 1450 | | | +--------+ + + + | Hickma | 07/05/16; 1200; Tunneled; Yes; | 07/05/16 1200 by | 08/07/16 1450 by | | n - | Right; Medial; 1:Red; 2: Blue; | Yanely Hurt RN | Matheus Oslen RN | | Double | 08/07/16; 1450 | | | | Lumen | | | | +--------+ + + + | Periph | 07/30/16; 0752; Right; | 07/30/16 0752 by | 08/07/16 1449 by | | eral | Antecubital; 20 g; Positive; | Josh Rivero RN | Matheus Olsen RN | | IV | 08/07/16; 1449; Drainage | | | +--------+ + + + documented in this encounter Social History + +-------+ +--------+------+ | Tobacco [...] filedocumented in this encounter Administered Medications + +---------+ + +------+------+ | Medication Order | MAR | Action | Dose | Rate | Site | | | Action | Date | | | | + +---------+ + +------+------+ | desmopressin (DDAVP) IV 30.4 | New Bag | 07/30/20 | 30.4 mcg | | | | mcg 30.4 mcg (rounded from 30.39 | | 16 8:00 | | | | | mcg = 0.3 mcg/kg | | AM PST | | | | | 101.3 kg), intravenous, ONCE, 1 | | | | | | | dose, 07/30/16 at 0800 | | | | | | + +---------+ + +------+------+ +---+---+ | | | +---+---+ + + + +---+---+---+ | lactated ringers IV | given by | 07/30/20 | | | | | INTRAPROCEDURE CONTINUOUS PRN, | | 16 9:00 | | | | | Starting Tue07/30/16 at 0755, | anesthes | AM PST | | | | | Until Tue07/30/16 at 0903 | iology | | | | | + + + +---+---+---+ +---------+ +---+---+---+ | New Bag | 07/30/20 | | | | | | 16 7:55 | | | | | | AM PST | | | | +---------+ +---+---+---+ +---+---+ | | | +---+---+ + +-------+ +------+---+---+ | midazolam (VERSED) injection | Given | 07/30/20 | 2 mg | | | | INTRAPROCEDURE PRN, Starting Fri | | 16 7:55 | | | | | 07/30/16 at 0755, Until Fri | | AM PST | | | | | 07/30/16 at 0903 | | | | | | + +-------+ +------+---+---+ +---+---+ | | | +---+---+ + +---------+ + +---------+---+ | propofol (DIPRIVAN) injection | New Bag | 07/30/20 | 250 | 151.95 | | | INTRAPROCEDURE CONTINUOUS PRN, | | 16 8:00 | mcg/kg/m | mL/hr | | | Starting Tue07/30/16 at 0800, | | AM PST | in | | | | Until 07/30/16 at 0902 | | | | | | + +---------+ + +---------+---+ +---+---+ | | | +---+---+ documented in this encounter"
--- OUTSIDE RECORDS SUMMARY | ~2019-01-06 | XMS | Encounter Summary ---
Demographics + + + | Address | [address] | | | [place] [address] | + + + | Home Phone | | + + + | Preferred Language | Unknown | + + + | Marital Status | | + + + | Buddhism Affiliation | NON | + + + | Race | White | + + + | Ethnic Group | Not or | + + + Author + + + | Author | [facility] | + + + | Organization | [facility] | + + + | [...] Team Providers + +------+ + | Care Bander Name | Role | Phone | + +------+ + | Aashish Hilton MD | PCP | | + +------+ + Reason for Visit + + + | Reason | Comments | + + + | Lab Draw | Power PICC | + + + | Dressing change | Power PICC (patient going home) | + + + | Intravenous infusion | Magnesium | + + + Encounter Details +--------+ + + + + | Date | Type | Department | Care Team | Description | +--------+ + + + + | 08/27/ | Clinical | [facility] | | Lab Draw (Power | | 2017 | Support | Hematologic | | PICC); Dressing | | | Staff | [facility]ign[facility] at [facility] | | change (Power PICC | | | | [address] | | (patient going | | | | [address] | | home)); Intravenous | | | | Mailcode: [id number] | | infusion (Magnesium) | | | | [address] [address] | | | | | | [place], [place] | | | | | | [address] | | | | | | [phone] | | | +--------+ + + + [...] documented as of this encounter Progress Notes Juliette Pierce, RN - 08/27/2016 10:00 AM PSTAssessment Patient ambulates into clinic today with their caregiver. Pt with hx of Nodular Sclerosis H odgkin's Lymphoma, now s/p BEAM conditioned auto (day 0= 07/21/2016 ), currently +37 days post transplant. Patient reports they are feeling well today. Pt reports that she had some minimal light-hea dedness yesterday, but otherwise, has no new complaints. The patient denies colds, flu, fever, infection, nausea, vomiting, diarrhea, constipation, signs or symptoms of mucositis, edema, skin rash, urinary issues, shortness of breath and s igns or symptoms of bleeding. The patient reports that they are eating well and drinking at least two liters of fluid daily. Patient scheduled for provider visit today with Dr Moreno. Labs Power PICC accessed per protocol. Good blood return noted. Appropriate waste discarded. Labs drawn and sent. Power PICC pulse flushed with 20 mL NS. Dressing Change CDI, WNL, but patient is going home to [place] and would like to have another week off be fore she needs to be seen again. Power PICC intact to right upper extremity without erythema or induration. Dressing remove d, skin intact. No s/s exit site infection. 3 cm line exposed. Using a PICC Dressing Minor e kit and sterile technique, site cleansed with Chloraprep. Skin prep applied prior to dres sing application. Biopatch applied with SorbaView dressing. Positive pressure valves minor ed to each port. All lumens pulse flushed with 10 mL NS. Patient tolerated procedure withou t difficulty. Supportive Care Magnesium Magnesium Sulfate 2 gm in 50 mL NS initiated for previous level of 1.6 over 1 hours per sup portive care orders and discontinued when today's level came back at 1.8. For infusion detai ls, see MAR. Patient did not require any further supportive care, per orders. Line care provided, see Flowsheet for details. Patient was reminded to call clinic with tem p > 100.4, chills, s/s of bleeding or uncontrolled N/V/D/C. Patient verbalizes understanding . All questions answered. Patient was instructed to check out at the front office assistant prior to tiana ving the clinic. Patient d/c d ambulatory in stable condition. No future appointments sche duled in Hematology Malignancy. documented in this enc ounter Plan of Treatment Not on filedocumented as of this encounter Procedures + +--------+ + + + | Procedure Name | Priori | Date/Time | Associated Diagnosis | Comments | | | ty | | | | + +--------+ + + + | TREATMENT PARAMETERS | Routin | 08/27/2016 | Nodular sclerosis | | | #2 - [place] | e | 11:33 AM | Hodgkin lymphoma of | | | | | PST | lymph nodes of | | | | | | multiple regions | | | | | | (HCC) | | + +--------+ + + + | TREATMENT PARAMETERS | Routin | 08/27/2016 | Nodular sclerosis | | | #2 - [place] | e | 10:35 AM | Hodgkin lymphoma of | | | | | PST | lymph nodes of | | | | | | multiple regions | | | | | | (HCC) | | + +--------+ + + + | TREATMENT PARAMETERS | Routin | 08/27/2016 | Nodular sclerosis | | | #1 - [place] | e | 10:34 AM | Hodgkin lymphoma of | | | | | PST | lymph nodes of | | | | | | multiple regions | | | | | | (HCC) | | + +--------+ + + + | TREATMENT PARAMETERS | Routin | 08/27/2016 | Nodular sclerosis | | | #1 - [place] | e | 10:34 AM | Hodgkin lymphoma of | | | | | PST | lymph nodes of | | | | | | multiple regions | | | | | | (HCC) | | + +--------+ + + + | CMP, POC (BMP+LFT) | Routin | 08/27/2016 | Nodular sclerosis | Results for this | | | e | 10:13 AM | Hodgkin lymphoma of | procedure are in the | | | | PST | lymph nodes of | results section. | | | | | multiple regions | | | | | | (HCC) | | + +--------+ + + + | CBC+DIFF,POC | Routin | 08/27/2016 | Nodular sclerosis | Results for this | | | e | 10:05 AM | Hodgkin lymphoma of | procedure are in the | | | | PST | lymph nodes of | results section. | | | | | multiple regions | | | | | | (HCC) | | + +--------+ + + + | COMPLEMENT ACTIVITY | Routin | 08/27/2016 | Nodular sclerosis | Results for this | | ENZYME IMMUNOASSAY, | e | 9:42 AM | Hodgkin lymphoma of | procedure are in the | | TOTAL | | PST | lymph nodes of | results section. | | | | | multiple regions | | | | | | (HCC) | | + +--------+ + + + | HAPTOGLOBIN | Routin | 08/27/2016 | Nodular sclerosis | Results for this | | | e | 9:42 AM | Hodgkin lymphoma of | procedure are in the | | | | PST | lymph nodes of | results section. | | | | | multiple regions | | | | | | (HCC) | | + +--------+ + + + | MAGNESIUM, PLASMA | Routin | 08/27/2016 | Nodular sclerosis | Results for this | | | e | 9:42 AM | Hodgkin lymphoma of | procedure are in the | | | | PST | lymph nodes of | results section. | | | | | multiple regions | | | | | | (HCC) | | + +--------+ + + + | LDH TOTAL, PLASMA | Routin | 08/27/2016 | Nodular sclerosis | Results for this | | | e | 9:42 AM | Hodgkin lymphoma of | procedure are in the | | | | PST | lymph nodes of | results section. | | | | | multiple regions | | | | | | (HCC) | | + +--------+ + + + | TREATMENT PARAMETERS | Routin | 08/27/2016 | Nodular sclerosis | | | #2 - [place] | e | 9:38 AM | Hodgkin lymphoma of | | | | | PST | lymph nodes of | | | | | | multiple regions | | | | | | (HCC) | | + +--------+ + + + | NURSING | Routin | 08/27/2016 | Nodular sclerosis | | | COMMUNICATION #3 - | e | 9:38 AM | Hodgkin lymphoma of | | | [place] | | PST | lymph nodes of | | | | | | multiple regions | | | | | | (HCC) | | + +--------+ + + + | NURSING | Routin | 08/27/2016 | Nodular sclerosis | | | COMMUNICATION #2 - | e | 9:38 AM | Hodgkin lymphoma of | | | [place] | | PST | lymph nodes of | | | | | | multiple regions | | | | | | (HCC) | | + +--------+ + + + | NURSING | Routin | 08/27/2016 | Nodular sclerosis | | | COMMUNICATION #1 - | e | 9:38 AM | Hodgkin lymphoma of | | | [place] | | PST | lymph nodes of | | | | | | multiple regions | | | | | | (HCC) | | + +--------+ + + + documented in this encounter Results CMP, POC (BMP+LFT) (08/27/2016 10:13 AM PST) + +---------+ + + + | Component | Value | Ref Range | Performed | Pathologist | | | | | At | Signature | + +---------+ + + + | SODIUM, POC | 137 | 134 - 143 | [facility] - | | | | | mmol/L | [facility] | | | | | | [facility] | | | | | | OF CARE | | | | | | TESTS | | + +---------+ + + + | POTASSIUM, | 3.9 | 3.4 - 5.0 | [facility] - | | | POC | | mmol/L | [facility] | | | | | | [facility] | | | | | | OF CARE | | | | | | TESTS | | + +---------+ + + + | TOTAL CO2, | 23 | 22 - 29 mmol/L | [facility] [...] +---------+ + + + | GLUCOSE, | 96 | 60 - 99 mg/dL | [facility] - | | | POC | | | [facility] | | | | | | [facility] | | | | | | OF CARE | | | | | | TESTS | | + +---------+ + + + | CALCIUM | 9.5 | 8.6 - 10.2 | [facility] - | | | TOTAL, POC | | mg/dL | [facility] | | | | | | [facility] | | | | | | OF CARE | | | | | | TESTS | | + +---------+ + + + | BUN, POC | 10 | 6 - 20 mg/dL | [facility] [...] + +---------+ + + + | ALK PHOS, | 88 (H) | 33 - 76 U/L | [facility] - | | | CMP POC | | | [facility] | | | | | | [facility] | | | | | | OF CARE | | | | | | TESTS | | + +---------+ + + + | ALT, CMP | 20 | 0 - 60 U/L | [facility] - | | | POC | | | [facility] | | | | | | [facility] | | | | | | OF CARE | | | | | | TESTS | | + +---------+ + + + | AST, CMP | 30 | 0 - 41 U/L | [facility] - | | | POC | | | [facility] | | | | | | [place] [place] | | | | | | OF CARE | | | | | | TESTS | | + +---------+ + + + | BILIRUBIN | 0.6 | 0.3 - 1.2 mg/dL | [facility] - | | | TOTAL, CMP | | | [facility] | | | POC | | | [facility] | | | | | | OF CARE | | | | | | TESTS | | + +---------+ + + + | ALBUMIN, | 3.8 | 3.5 - 4.7 g/dL | [facility] - | | | CMP POC | | | [facility] | | | | | | [facility] | | | | | | OF CARE | | | | | | TESTS | | + +---------+ + + + | PROTEIN | 7.0 | 6.1 - 7.9 g/dL | [facility] - | | | TOTAL, CMP | | | [facility] | | | [...] + + + | [facility] | [address] | [place], [place] | | | [facility] | [address] | [address] | | | TESTS | | | | + + + + + CBC+SWATI BELLAMY (08/27/2016 10:05 AM PST) + + + + + + | Component | Value | Ref Range | Performed | Pathologist | | | | | At | Signature | + + + + + + | WBC POC | 3.2 (L) | 4.4 - 11.0 | [facility] - | | | | | 10*3/uL | [facility] | | | | | | [facility] | | | | | | OF CARE | | | | | | TESTS | | + + + + + + | RBC POC | 2.57 (L) | 4.00 - 5.20 | [facility] - | | | | | 10*6/uL | [facility] | | | | | | [facility] | | | | | | OF CARE | | | | | | TESTS | | + + + + + + | HGB POC | 8.0 (L) | 12.0 - 16.0 | [facility] - | | | | | g/dL | [facility] | | | | | | [facility] | | | | | | OF CARE | | | | | | TESTS | | + + + + + + | HCT POC | 23.4 (L) | 36.0 - 46.0 % | [facility] - | | | | | | [facility] | | | | | | [facility] | | | | | | OF CARE | | | | | | TESTS | | + + + + + + | MCV POC | 91.1 | 80.0 - 96.0 fL | [facility] - | | | | | | [facility] | | | | | | [facility] | | | | | | OF CARE | | | | | | TESTS | | + + + + + + | MCH POC | 31.1 | 29.0 - 32.0 pg | [facility] - | | | | | | [facility] | | | | | | [facility] | | | | | | OF CARE | | | | | | TESTS | | + + + + + + | MCHC POC | 34.2 | 33.0 - 35.5 | [facility] - | | | | | g/dL | [facility] | | | | | | [facility] | | | | | | OF CARE | | | | | | TESTS | | + + + + + + | RDW SD, POC | 43.0 | 35.1 - 46.3 fL | [facility] - | | | | | | [facility] | | | | | | [facility] | | | | | | OF CARE | | | | | | TESTS | | + + + + + + | PLT POC | 37 (L) | 150 - 400 | [facility] - | | | | | 10*3/uL | [facility] | | | | | | [facility] | | | | | | OF CARE | | | | | | TESTS | | + + + + + + | MPV POC | 9.9 | 9.7 - 12.3 fL | [facility] - | | | | | | [facility] | | | | | | [facility] | | | | | | OF CARE | | | | | | TESTS | | + + + + + + | NEUTROPHIL% | 45.7 (L) | 50.0 - 70.0 % | [facility] - | | | POC | | | [facility] | | | | | | [facility] | | | | | | OF CARE | | | | | | TESTS | | + + + + + + | LYMPH% POC | 37.7 | 18 - 42 % | [facility] - | | | | | | [facility] | | | | | | [facility] | | | | | | OF CARE | | | | | | TESTS | | + + + + + + | MONO %, POC | 15.4 (H) | 3.5 - 9.0 % | [facility] - | | | | | | [facility] | | | | | | [facility] | | | | | | OF CARE | | | | | | TESTS | | + + + + + + | EOS %, POC | 1.2 | 1.0 - 3.0 % | [facility] [...] + + + + | NEUTROPHIL# | 1.5 (L) | 1.8 - 7.7 | [facility] - | | | POC | | 10*3/uL | [facility] | | | | | | [facility] | | | | | | OF CARE | | | | | | TESTS | | + + + + + + | LYMPH# POC | 1.2 | 1.0 - 4.8 | [facility] - | | | | | 10*3/uL | [facility] | | | | | | [facility] | | | | | | OF CARE | | | | | | TESTS | | + + + + + + | MONO #, POC | 0.5 | 0.1 - 0.9 | [facility] - [...] | | | | | 10*3/uL | [facility] | | | | | | [facility] | | | | | | OF CARE | | | | | | TESTS | | + + + + + + | BASO #, POC | 0.0 | 0.0 - 0.1 | [facility] - | | | | | 10*3/uL | [facility] | | | | | | [facility] | | | | | | OF CARE | | | | | | TESTS | | + + + + + + + + | Specimen | + + | Blood | + + + + + + + | Performing | Address | City/State/Zipcode | Phone Number | | Organization | | | | + + + + + | [facility] | [address] | [place], [place] | | | [facility] | [address] | [address] | | | TESTS | | | | + + + + + COMPLEMENT ACTIVITY ENZYME IMMUNOASSAY, TOTAL (08/27/2016 9:42 AM PST) + + + + + + | Component | Value | Ref Range | Performed | Pathologist | | | | | At | Signature | + + + + + + | COMPLEMENT | 0 (L)Comment: If low | 60 - 144 | [facility] | | | CH50, TOTAL | CH50 value is unexpected | Units | REG UNIV | | | | or does not correlate | | P[facility] - [facility] | | | | with the patient's | | | | | | clinical condition, | | | | | | repeat analysis with a | | | | | | fresh frozen serum | | | | | | sample is suggested for | | | | | | verification.INTERPRETIV | | | | | | E INFORMATION: | | | | | | Complement Activity, | | | | | | Total EIA 59 | | | | | | Units or less | | | | | | .......... | | | | | | Low 60-144 | | | | | | Units .............. | | | | | | Normal 145 Units | | | | | | or greater ....... | | | | | | HighPerformed by [facility] | | | | | | [facility],[address] | | | | | | [place], [place] [address] | | | | | | [phone]. | | | | | | Juan Manuel munson MD, | | | | | | Lab. Director | | | | + + + + + + + + | Specimen | + + | Blood | + + + + + + + | Performing | Address | City/State/Zipcode | Phone Number | | Organization | | | | + + + + + | [facility] | [address] | [place], [place] | | | UNIV P[facility] | | [id number] | | + + + + + HAPTOGLOBIN, SERUM (08/27/2016 9:42 AM PST) + + + + + + | Component | Value | Ref Range | Performed | Pathologist | | | | | At | Signature | + + + + + + | HAPTOGLOBIN | See NoteComment: Unable | 30 - 200 | [facility] - | | | | to test due to hemolysis | | [facility] | | | | | | [place] | | + + + + + + + + | Specimen | + + | Blood | + + + + + + + | Performing | Address | City/State/Zipcode | Phone Number | | Organization | | | | + + + + + | [facility] | [id number] | [place] [address] | | | [place] | | | | + + + + + MAGNESIUM, PLASMA (08/27/2016 9:42 AM PST) + +-------+ + + + | Component | Value | Ref Range | Performed | Pathologist | | | | | At | Signature | + +-------+ + + + | MAGNESIUM,P | 1.8 | 1.8 - 2.5 mg/dL | [facility] | | | LASMA | | | LABORATORY | | | [...] [facility] | [address] | [place] [address] | | | SERVICES, CORE | [address] | | | + + + + + LDH TOTAL, PLASMA (08/27/2016 9:42 AM PST) + +---------+ + + + | Component | Value | Ref Range | Performed | Pathologist | | | | | At | Signature | + +---------+ + + + | LD TOTAL, | 264 (H) | <=250 U/L | [facility] | | | PLASMA | | | LABORATORY | | | | | | SERVICES, | | | | | | CORE | | + +---------+ + + + | LD CMNT | No Hemo | | [facility] [...] + + | [facility] | [address] | [place] [address] | | | SERVICES, CORE | [address] | | | + + + + + documented in this encounter Visit Diagnoses + + | Diagnosis | + + | 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 | + + documented in this encounter Administered Medications + +---------+ +------+------+------+ | Medication Order | MAR | Action | Dose | Rate | Site | | | Action | Date | | | | + +---------+ +------+------+------+ | magnesium sulfate in water IV | New Bag | 08/27/19 | 2 g | | | | (RTU) 2 g 2 g, intravenous, | | 17 10:00 | | | | | ONCE, 1 dose, 08/27/16 at 1000 | | AM PST | | | | + +---------+ +------+------+------+ +---+---+ | | | +---+---+ documented in this encounter"
--- OUTSIDE RECORDS SUMMARY | ~2019-01-06 | XMS | Encounter Summary ---
Demographics + + + | Address | NEED ADDRESS | | | [place] [address] | + + + | Home Phone | | + + + | Preferred Language | Unknown | + + + | Marital Status | Single | + + + | Christianity Affiliation | Unknown | + + + | Race | Unknown | + + + | Ethnic Group | Unknown | + + + Author + + + | Author | [facility] | | | and [place] | + + + | Organization | [facility] | | | and [place] | + + + | Address | Unknown | + + + | Phone | Unavailable | + + + Support + + + + + | Name | Relationship | Address | Phone | + + + + + | Qamar Wynne | ECON | [address] | | | | | [place] | | | | | [address] | | + + + + + | Merlyn Otero | ECON | [address] | | | | | [place] | | | | | [address] | | + + + + + Care Team Providers + +------+ + | Care Semiconductor Bonder Name | Role | Phone | + +------+ + | Ryan Murry MD | PCP | | + +------+ + Reason for Visit + + + | Reason | Comments | + + + | Medication Refill | | + + + Encounter Details +--------+--------+ + + + | Date | Type | Department | Care Team | Description | +--------+--------+ + + + | 11/18/ | Refill | [facility] | [place], | Medication Refill | | 2019 | | [facility] | Aashish Carpenter MD [address] | | | | | [facility] [address] | [facility] | | | | | [address] [facility] | [place] [address] | | | | | [place] [address] | [phone] | | | | | [phone] | | | +--------+--------+ + + + Social History + +-------+ [...] + +---------+ + | Alcohol Use | Drinks/We | oz/Week | Comments | | | ek | | | + + +---------+ + | No | | | | + + +---------+ + [...] as of this encounter Plan of Treatment +--------+ + + + + | Date | Type | Specialty | Care Team | Description | +--------+ + + + + | 01/22/ | Appointment | Infusion Therapy | Lida, | | | 2018 | | | MD Farida Camacho [address] | | | | | | [address] | | | | | | [place] [address] | | | | | | [phone] | | | | | | | | +--------+ + + + + | 01/22/ | Appointment | Oncology | Lida, | | | 2018 | | | MD Farida Camacho [address] | | | | | | [address] | | | | | | [place] [address] | | | | | | [phone] | | | | | | | | +--------+ + + + + documented as of this encounter Visit Diagnoses + + | Diagnosis | + + | Hodgkin's disease, nodular sclerosis, of intrathoracic lymph nodes (HCC) - Primary | | Hodgkin's disease, nodular sclerosis, of intrathoracic lymph nodes | + + documented in this encounter"
--- OUTSIDE RECORDS SUMMARY | ~2019-01-06 | XMS | Encounter Summary ---
Demographics + + + | Address | [address] | | | [place] [address] | + + + | Home Phone | | + + + | Preferred Language | Unknown | + + + | Marital Status | | + + + | Pentecostalism Affiliation | NON | + + + | Race | White | + + + | Ethnic Group | Not or | + + + Author + + + | Author | [facility] | + + + | Organization | [facility] | + + + | Address [...] Team Providers + +------+ + | Care Drawer Upfitter Name | Role | Phone | + [...] | | | 2016 | Event | [facility] | PATIENT [facility] [address] | | | | | Admitting Desk | [facility] | | | | | Located on the | [place], [place] | | | | | floor [address] [facility] | [address] | | | | | [facility] | [phone] | | | | | [place], [place] | | | | | | [address] | | | +--------+ + + + [...] Internal Jugular; | | | | | [id number]; 08/07/16; 1450 | | | +--------+ + + + | Hickma | 07/05/16; 1200; Tunneled; Yes; | 07/05/16 1200 by | 08/07/16 1450 by | | n - | Right; Medial; 1:Red; 2: Blue; | Yanely Hurt RN | Matheus Olsen RN | | Double | 08/07/16; 1450 [...]
--- OUTSIDE RECORDS SUMMARY | ~2019-01-06 | XMS | Encounter Summary ---
Demographics + + + | Address | [address] | | | [place] [address] | + + + | Home Phone | | + + + | Preferred Language | Unknown | + + + | Marital Status | | + + + | Buddhist Affiliation | NON | + + + | Race | White | + + + | Ethnic Group | Not or | + + + Author + + + | Author | [facility] | + + + | Organization | [facility] | + + + | Address [...] Team Providers + +------+ + | Care Mental Tester Name | Role | Phone | + [...] | | | | [facility] | | | | | | Mailcode: [id number] | | | | | | [address] | | | | | | [place], [place] | | | | | | [address] | | | | | | [phone] | | | +--------+ + + + [...]
--- OUTSIDE RECORDS SUMMARY | ~2019-01-06 | XMS | Encounter Summary ---
Demographics + + + | Address | [address] | | | [place] [address] | + + + | Home Phone | | + + + | Preferred Language | Unknown | + + + | Marital Status | | + + + | Protestant Affiliation | NON | + + + [...] Team Providers + +------+ + | Care Financial Adviser Name | Role | Phone | + +------+ + | Aashish Hilton MD | PCP | | + +------+ + Reason for Visit + + + | Reason | Comments | + + + | Procedure | Stem cell collection | + + + AUTH/CERT +--------+--------+ + + + + | [...] Description | +--------+---------+ + + + | 07/05/ | Office | Center for | Vanessa Shin, | Nodular sclerosis | | 2016 | Visit | Hematologic | [facility] [address] [facility] | Hodgkin lymphoma of | | | | Malignancies at | [facility] [address] | lymph nodes of | | | | [facility] | [place], [place] | multiple regions | | | | [address] | [address] | ([facility]) (Primary Dx) | | | | [address] | [phone] | | | | | Mailcode: [id number] | | | | | | [address]anne [address] | | | | | | [place], [place] | | | | | | [address] | | | | | | [phone] | | | +--------+---------+ + + + [...] | Blood Pressure | 113/71 | 07/05/2016 12:45 PM | | | | | PST | | + + + + + | Pulse | 117 | 07/05/2016 12:45 PM | | | | | PST | | + + + + + | Temperature | 37.3 C (99.1 F) | 07/05/2016 12:45 PM | | | | | PST | | + + + + + | Respiratory Rate | 18 | 07/05/2016 12:45 PM | | | [...] + + + documented in this encounter Progress Notes Vanessa Osboren, [facility] - 07/05/2016 1:30 PM PSTFormatting of this note might be different f rom the original. Autologous Hematopoietic Progenitor Cell Collection Procedure Note 07/05/2016 Indications for procedure: Collection of hematopoietic progenitor cells for autologous raúl m cell transplant. Primary diagnosis: Hodgkins Mobilization regimen: HD Neupogen Peripheral CD34 count: 0.099 HPI: Meggan Otero is a 20 y.o. 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 [facility] Subjective: Ms. Otero states that she did develop mild headaches and bone pain from the Neupogen, but pain overall controlled with Oxycodone. She also reports nausea, but this has been persist ent from prior chemotherapy regimens; no vomiting, diarrhea or constipation. She denies brittany st pain, palpitations, shortness of breath, mouth tingling or numbness, muscle cramping. No fevers or chills. Objective: BP 113/71 | Pulse 117 | Temp 37.3 C (99.1 F) | RR 18 | SpO2 100% General: This is a healthy appearing female in no acute distress. Skin: No rash, lesions noted. Chest: Lungs clear to auscultation anteriorly CV: RRR, no murmurs. Abdomen: S/NT/ND with NABS. No HSM appreciated. Extremities: Pulses strong and equal bilaterally. No c/c/e. Neuro: Grossly nonfocal exam. IV access: Central line is a Reece catheter w/o induration/inflammation Lab Results Component Value Date WBC 51.8 (H) 07/05/2016 RBC 3.69 (L) 07/05/2016 HB 11.5 (L) 07/05/2016 HCT 34.5 (L) 07/05/2016 MCV 93.5 07/05/2016 MCHC 33.3 07/05/2016 RDW 46.1 06/17/2016 PLT 381 07/05/2016 NEUTROPERC 88.0 (H) 06/17/2016 LYMPHPERC 9.5 (L) 06/17/2016 MONOPERC 14.2 (H) 07/05/2016 EOSPERC 0.8 (L) 07/05/2016 BASOPERC 0.1 07/05/2016 NEUTROPHILCO ---- 07/05/2016 MONOCYTECO 7.4 (H) 07/05/2016 EOSCO 0.4 07/05/2016 BASOPHILCO 0.0 07/05/2016 Lab Results Component Value Date NA 136 07/05/2016 K 4.9 07/05/2016 BICARB 27 07/05/2016 CL 104 07/05/2016 BUN 6 07/05/2016 CR 0.7 07/05/2016 GLU 90 07/05/2016 CA 9.2 07/05/2016 MG 1.9 07/05/2016 PO4 2.9 07/05/2016 LDH >800 (H) 07/05/2016 AP 206 (H) 07/05/2016 URICACID 6.9 (H) 07/05/2016 AST 46 (H) 07/05/2016 ALT 27 07/05/2016 DBILI <0.1 07/05/2016 TBILI 0.3 07/05/2016 TP 7.0 07/05/2016 ALB 3.6 07/05/2016 Consent obtained: Yes Software used for pheresis: MNC Hct instructions: 2-3% Blood volume processed: 2.5 Complications of procedure: None Total CD34+ cells/kg collected: 7.37 Target collection total: 3 x 10^6 CD34+ cells/kg Plan: Adequate stem cell collection. No additional apheresis required. I saw and evaluated the patient while undergoing apheresis and advised collection staff on parameters of collection. I was present in the hospital and immediately available for the e ntire duration of the procedure. [facility] [address] Mailcode: [id number] [place] [phone] documented in this encounter Plan of Treatment Not on filedocumented as of this encounter Procedures + +--------+ + + + | Procedure Name | Priori | Date/Time | Associated Diagnosis | Comments | | | ty | | | | + +--------+ + + + | [place] PROG CELL | Routin | 07/05/2016 | Nodular sclerosis | | | HARVEST,TRANSPLANT,A | e | 5:13 PM | Hodgkin lymphoma of | | | UTOLOGOUS | | PST | lymph nodes of | | | | | | multiple regions | | | | | | (HCC) | | + +--------+ + + + | ORDERS OTHER | | 07/05/2016 | | Results for this | | | | 12:00 AM | | procedure are in the | | | | PST | | results section. | + +--------+ + + + | ORDERS OTHER | | 07/05/2016 | | Results for this | | | | 12:00 AM | | procedure are in the | | | | PST | | results section. | + +--------+ + + + | ORDERS OTHER | | 07/05/2016 | | Results for this | | | | 12:00 AM | | procedure are in the | | | | PST | | results section. 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
--- OUTSIDE RECORDS SUMMARY | ~2019-01-06 | XMS | Encounter Summary ---
Demographics + + + | Address | [address] | | | [place] [address] | + + + | Home Phone | | + + + | Preferred Language | Unknown | + + + | Marital Status | | + + + | Denominational Affiliation | NON | + + + | Race | White | + + + | Ethnic Group | Not or | + + + Author + + + | Author | [facility] | + + + | Organization | [facility] | + + + | Address [...] Team Providers + +------+ + | Care Cylinder Devalver Name | Role | Phone | + +------+ + | No Pcp Per Patient | PCP | Unavailable | + +------+ + Encounter Details +--------+ + + + + | Date | Type | Department | Care Team | Description | +--------+ + + + + | 05/26/ | Licensed Retail Supervisor | Center for | Quirino Moreno I, | | | 2016 | | Hematologic | ,PhD [address] | | | | | Malignancies at | [facility] | | | | | Joanne Herman | [place], [place] | | | | | [address] [facility] | [address] | | | | | [facility] | [phone] | | | | | Mailcode: [id number] | | | | | | [facility] | | | | | | [place], [place] | | | | | | [address] | | | | | | [phone] | | | +--------+ + + + [...]
--- OUTSIDE RECORDS SUMMARY | ~2019-01-06 | XMS | Encounter Summary ---
Demographics + + + | Address | [address] | | | [place] [address] | + + + | Home Phone | | + + + | Preferred Language | Unknown | + + + | Marital Status | | + + + | Scientologist Affiliation | NON | + + + | Race | White | + + + | Ethnic Group | Not or | + + + Author + + + | Author | [facility] | + + + | Organization | [facility] | + + + | [...] Team Providers + +------+ + | Care Business Continuity Specialist Name | Role | Phone | + +------+ + | No Pcp Per Patient | PCP | Unavailable | + +------+ + Reason for Visit + + + | Reason | Comments | + + + | Pre-Transplant | ITINERARY | | Evaluation | | + + + Encounter Details +--------+ + + + + | Date | Type | Department | Care Team | Description | +--------+ + + + + | 05/21/ | Environmental Services Floor Tech | Center for | Quirino Moreno I, | Nodular sclerosis | | 2016 | | Hematologic | ,PhD [address] | Hodgkin lymphoma of | | | | Malignancies at | [facility] [address] | lymph nodes of | | | | [facility] | [facility] [place] | multiple regions | | | | [address] | [address] | (HCC) (Primary Dx) | | | | [facility] | [phone] | | | | | Mailcode: [id number] | | | | | | [facility] | | | | | | [place], [place] | | | | | | [address] | | | | | | [phone] | | | +--------+ + + + [...] + documented as of this encounter Progress Maura Boyer RN - 05/21/2016 9:20 AM PDT Please schedule the following itinerary for the following on: 06/17 CG Class Lab: central line Social Work Eval Vein check in apheresis 06/30 Consent appointment with : [facility] Lab: central line Other instructions or requests: SW eval could be on 06/30 as well Please email me the itinerary when completed. Thank you, Maura Lai RN documented in this encounter Plan of Treatment Not on filedocumented as of this encounter Results RANDY CROW VIRUS PANEL, SERUM (06/17/2016 8:52 AM PDT) + + + + + + | Component | Value | Ref Range | Performed | Pathologist | | | | | At | Signature | + + + + + + | RANDY | >750.0 (H)Comment: | 0.0 - 21.9 U/mL | [facility] | | | CROW VIRUS | INTERPRETIVE | | REG UNIV | | | AB VCA IGG | INFORMATION: | | PTH - INTFC | | | | Randy-Crow Virus | | | | | | Antibody to | | | | | | | | | | | | | | | | | | Viral Capsid | | | | | | Antigen, IgG 17.9 | | | | | | U/mL or less.......Not | | | | | | Detected 18.0-21.9 | | | | | | U/mL..........Indetermin | | | | | | ate - Repeat testing in | | | | | | | | | | | | | | | | | | 10-14 days may be | | | | | | helpful. 22.0 U/mL or | | | | | | greater....Detected | | | | | | Interpretive information | | | | | | regarding serologic | | | | | | features of | | | | | | EBV-associated diseases | | | | | | is available at | | | | | | [email or web address] | | | | | | x. | | | | + + + + + + | AB TO VCA | <10.0Comment: | 0.0 - 43.9 U/mL | [facility] | | | IGM | INTERPRETIVE | | REG UNIV | | | | INFORMATION: | | PTH - INTFC | | | | Randy-Crow Virus | | | | | | Antibody to | | | | | | | | | | | | | | | | | | Viral Capsid | | | | | | Antigen, IgM 35.9 | | | | | | U/mL or less.......Not | | | | | | Detected 36.0-43. | | | | | | 9 | | | | | | U/mL..........Indetermin | | | | | | ate - Repeat testing | | | | | | in | | | | | | | | | | | | 10-14 days may be | | | | | | helpful. 44.0 U/mL or | | | | | | greater....Detected | | | | | | Interpretive information | | | | | | regarding serologic | | | | | | features of | | | | | | EBV-associated diseases | | | | | | is available at | | | | | | [email or web address] | | | | | | x. | | | | + + + + + + | AB TO | 236.0 (H)Comment: | 0.0 - 21.9 U/mL | [facility] | | | NUCLEAR AG | INTERPRETIVE | | REG UNIV | | | | INFORMATION: | | PTH - INTFC | | | | Randy-Crow Virus | | | | | | Antibody to | | | | | | | | | | | | | | | | | | Nuclear Antigen, IgG | | | | | | 17.9 U/mL or | | | | | | less.......Not | | | | | | Detected 18.0-21.9 | | | | | | U/mL..........Indetermin | | | | | | ate - Repeat testing | | | | | | in | | | | | | | | | | | | 10-14 days may be | | | | | | helpful. 22.0 U/mL or | | | | | | greater....Detected | | | | | | Interpretive information | | | | | | regarding serologic | | | | | | features of | | | | | | EBV-associated diseases | | | | | | is available at | | | | | | [email or web address] | | | | | | x. | | | | + + + + + + | AB TO EARLY | 12.5 (H)Comment: | 0.0 - 10.9 U/mL | [facility] | | | AG | Cross-reactivity between | | REG UNIV | | | | EBV EA(D) and Human | | PTH - INTFC | | | | Immunodeficiency Virus | | | | | | (HIV), Hepatitis A, B, | | | | | | and C has been | | | | | | documented.INTERPRETIVE | | | | | | INFORMATION: | | | | | | Randy-Crow Virus | | | | | | Antibody to | | | | | | | | | | | | | | | | | | Early D Antigen | | | | | | (EA-D), IgG 8.9 U/mL | | | | | | or less........Not | | | | | | Detected 9.0-10.9 | | | | | | U/mL...........Indetermi | | | | | | mildred - Repeat testing | | | | | | in | | | | | | | | | | | | 10-14 may be | | | | | | helpful. 11.0 U/mL or | | | | | | greater....Detected | | | | | | Interpretive information | | | | | | regarding serologic | | | | | | features of | | | | | | EBV-associated diseases | | | | | | is available at | | | | | | [email or web address] | | | | | | x.Performed by [facility] | | | | | | Renea,[address] [place] [address] | | | | | | [place] [address] | | | | | | [phone] | | | | | | [facility], [place] Ramsay, | | | | | | Ok LEON. Director | | | | + + + + + + + + | Specimen | + + | Blood - Blood | + + + + + + + | Performing | Address | City/State/Zipcode | Phone Number | | Organization | | | | + + + + + | [facility] | [address] | [place], [place] | | | UNIV PTH - INTFC | | [address] | | + + + + + TOXOPLASMA IGG AB, SERUM (06/17/2016 8:52 AM PDT) + + + + + + | Component | Value | Ref Range | Performed | Pathologist | | | | | At | Signature | + + + + + + | TOXOPLASMA | <3 | <=9 IU/mL | [facility] - | | | IGG AB | | | AIRPORT - | | | | | | [place] | | + + + + + + | TOXO IGG | NegativeComment: | | [facility] - | | | INTERPRETAT | Negative: <10 | | AIRPORT - | | | ION | IU/mLEquivocal: 10-11 | | [place] | | | | IU/mLPositive: >11 | | | | | | IU/mL | | | | + + + + + + + + | Specimen | + + | Blood - Blood | + + + + + + + | Performing | Address | City/State/Zipcode | Phone Number | | Organization | | | | + + + + + | [facility] | [address] | [place] [address] | | | [place] | | | | + + + + + HEMOGLOBIN S SCREEN, BLOOD (06/17/2016 8:52 AM PDT) + + + + + + | Component | Value | Ref Range | Performed | Pathologist | | | | | At | Signature | + + + + + + | HEMOGLOBIN | Negative | Negative | [facility] - | | | S, WB | | | AIRPORT - | | | | | | [place] | | + + + + + + + + | Specimen | + + | Blood - Blood | + + + + + + + | Performing | Address | City/State/Zipcode | Phone Number | | Organization | | | | + + + + + | [facility] | [address] | [place] [address] | | | [place] | | | | + + + + + HEPATITIS B SURFACE AB QUAL, SERUM (06/17/2016 8:52 AM PDT) + + + + + + | Component | Value | Ref Range | Performed | Pathologist | | | | | At | Signature | + + + + + + | HEP B | Non Reactive | Non Reactive | [facility] - | | | SURFACE AB | | | AIRPORT - | | | QUAL, SERUM | | | [place] | | + + + + + + + + | Specimen | + + | Blood - Blood | + + + + + + + | Performing | Address | City/State/Zipcode | Phone Number | | Organization | | | | + + + + + | [facility] | [address] | [place] [address] | | | [place] | | | | + + + + + HEPATITIS A AB SCREEN, SERUM (06/17/2016 8:52 AM PDT) + + + + + + | Component | Value | Ref Range | Performed | Pathologist | | | | | At | Signature | + + + + + + | HEPATITIS A | Negative | Negative | [facility] - | | | AB TOTAL | | | AIRPORT - | | | | | | [place] | | + + + + + + + + | Specimen | + + | Blood - Blood | + + + + + + + | Performing | Address | City/State/Zipcode | Phone Number | | Organization | | | | + + + + + | [facility] | [address] | [place] [address] | | | [place] | | | | + + + + + VARICELLA ZOSTER IGG, SERUM (06/17/2016 8:52 AM PDT) + + + + + + | Component | Value | Ref Range | Performed | Pathologist | | | | | At | Signature | + + + + + + | VARICELLA | Negative (A) | | [facility] - | | | ZOSTER IGG | | | AIRPORT - | | | | | | [place] | | + + + + + + + + | Specimen | + + | Blood - Blood | + + + + + + + | Performing | Address | City/State/Zipcode | Phone Number | | Organization | | | | + + + + + | [facility] | [address] | [place], [place] [facility] | | | [place] | | | | + + + + + HSV ANTIBODY, SERUM (06/17/2016 8:52 AM PDT) + + + + + + | Component | Value | Ref Range | Performed | Pathologist | | | | | At | Signature | + + + + + + | HSV 1/2 IGG | >22.40Comment: | IV | [facility] | | | ANTIBODY | INTERPRETIVE | | REG UNIV | | | | INFORMATION: HSV 1/2 | | PTH - INTFC | | | | COMBINED Ab SCREEN, | | | | | | IgG 0.89 IV or | | | | | | less.........Not | | | | | | Detected 0.90-1.09 | | | | | | IV............Indetermin | | | | | | ate- Repeat | | | | | | testing | | | | | | | | | | | | in 10-14 days | | | | | | may be helpful. 1.10 | | | | | | IV or | | | | | | greater......Detected | | | | | | The best evidence for | | | | | | current infection is a | | | | | | significant change on | | | | | | two appropriately timed | | | | | | specimens, where both | | | | | | tests are done in the | | | | | | same laboratory at the | | | | | | same time. | | | | + + + + + + | HSV 1/2 IGM | 0.55Comment: | <=0.89 IV | [facility] | | | ANTIBODY | INTERPRETIVE | | REG UNIV | | | | INFORMATION: Herpes | | PTH - INTFC | | | | Simplex Virus Type 1 | | | | | | and/or 2 Antibodies, IgM | | | | | | by MILAGROS 0.89 IV or | | | | | | Less .......... Not | | | | | | Detected 0.90 - 1.09 | | | | | | IV ........... | | | | | | Indeterminate- Repeat | | | | | | testing | | | | | | in | | | | | | | | | | | | 10-14 days | | | | | | may be helpful. 1.10 | | | | | | IV or Greater ....... | | | | | | Detected-IgM antibody to | | | | | | | | | | | | HSV | | | | | | | | | | | | detected, | | | | | | which may indicate | | | | | | a | | | | | | | | | | | | current or | | | | | | recent | | | | | | infection. | | | | | | | | | | | | | | | | | | However, low levels of | | | | | | IgM | | | | | | | | | | | | antibodies | | | | | | may | | | | | | occasionally | | | | | | | | | | | | | | | | | | persist for more than | | | | | | 12 | | | | | | | | | | | | months | | | | | | post-infection.Performed | | | | | | by [facility] | | | | | | [facility],[address] | | | | | | [place] [address] | | | | | | [phone] | | | | | | Raleigh munson, | | | | | | , Lab. Director | | | | + + + + + + + + | Specimen | + + | Blood - Blood | + + + + + + + | Performing | Address | City/State/Zipcode | Phone Number | | Organization | | | | + + + + + | [facility] | [address] | [place], [place] | | | UNIV PTH - INTFC | | [address] | | + + + + + INR (06/17/2016 8:52 AM PDT) + +-------+ + + + | Component | Value | Ref Range | Performed | Pathologist | | | | | At | Signature | + +-------+ + + + | INR | 0.99 | 0.90 - 1.20 INR | [facility] | | | | | | LABORATORY | | | | | | SERVICES, | | | | | | CORE | | + +-------+ + + + + + | Specimen | + + | Blood | + + + + + | Narrative | Performed At | + + + | INR Therapeutic ranges for full anticoagulation: INR for | [facility] | | Venous Thromboembolism (2.0 - 3.0) INR INR | LABORATORY | | for most patients with mech. valves (2.5 - 3.5) INR | [facility] | + + + + + + + + | Performing | Address | City/State/Zipcode | Phone Number | | Organization | | | | + + + + + | [facility] | [address] | [place] [address] | | | SERVICESSCOOBY | [address] | | | + + + + + LDH TOTAL, PLASMA (06/17/2016 8:52 AM PDT) + +---------+ + + + | Component | Value | Ref Range | Performed | Pathologist | | | | | At | Signature | + +---------+ + + + | LD TOTAL, | 261 (H) | <=250 U/L | [facility] | [...] [facility] | [address] | [place] [address] | | | SERVICES, CORE | [address] | | | + + + + + URIC ACID, PLASMA (06/17/2016 8:52 AM PDT) + +-------+ + + + | Component | Value | Ref Range | Performed | Pathologist | | | | | At | Signature | + +-------+ + + + | URIC ACID, | 4.0 | 2.5 - 6.2 mg/dL | [facility] | | | PLASMA [...] | + + + + + | [facility] | [address] | [place] [address] | | | SERVICES, CORE | [address] | | | + + + + + PHOSPHORUS, PLASMA (06/17/2016 8:52 AM PDT) + +-------+ + + + | Component | Value | Ref Range | Performed | Pathologist | | | | | At | Signature | + +-------+ + + + | PHOSPHORUS, | 3.0 | 2.4 - 4.7 mg/dL | [facility] [...] [facility] | [address] | [place] [address] | | | SERVICES, CORE | [address] | | | + + + + + MAGNESIUM, PLASMA (06/17/2016 8:52 AM PDT) + +-------+ + + + | Component | Value | Ref Range | Performed | Pathologist | | | | | At | Signature | + +-------+ + + + | MAGNESIUM,P | 2.1 | 1.8 - 2.5 mg/dL | [facility] [...] [facility] | [address] | [place] [address] | | | SERVICES, CORE | [address] | | | + + + + + COMPLETE METABOLIC SET (NA,K,CL,CO2,BUN,CREAT,GLUC,CA,AST,ALT,BILI TOTAL,ALK PHOS,ALB,PROT TOTAL) (06/17/2016 8:52 AM PDT) + +---------+ + + + | Component | Value | Ref Range | Performed | Pathologist | | | | | At | Signature | + +---------+ + + + | GLUCOSE, | 74 | 60 - 99 mg/dL | [facility] | | | PLASMA | | | LABORATORY | | | (LAB) | | | SERVICES, | | | | | | CORE | | + +---------+ + + + | BUN, PLASMA | 17 | 6 - 20 mg/dL | [facility] | | | (LAB) | | | LABORATORY | | | | | | SERVICES, | | | | | | CORE | | + +---------+ + + + | CREATININE | 0.69 | 0.60 - 1.10 | [facility] | | | PLASMA | | mg/dL | LABORATORY | | | (LAB) | | | SERVICES, | | | | | | CORE | | + +---------+ + + + | EGFR | >60 | >60 mL/min | [facility] | | | - | | | LABORATORY | | | WELSH | | | SERVICES, | | | | | | CORE | | + +---------+ + + + | EGFR NON | >60 | >60 mL/min | [facility] | | | -RAOUL | | | LABORATORY | | | RICAN | | | SERVICES, | | | | | | CORE | | + +---------+ + + + | SODIUM, | 139 | 136 - 145 | [facility] | | | PLASMA | | mmol/L | LABORATORY | | | (LAB) | | | SERVICES, | | | | | | CORE | | + +---------+ + + + | POTASSIUM, | 4.2 | 3.4 - 5.0 | [facility] | | | PLASMA | | mmol/L | LABORATORY | | | (LAB) | | | SERVICES, | | | | | | CORE | | + +---------+ + + + | CHLORIDE, | 108 | 97 - 108 mmol/L | [facility] | | | PLASMA | | | LABORATORY | | | (LAB) | | | SERVICES, | | | | | | CORE | | + +---------+ + + + | TOTAL CO2, | 23 | 21 - 32 mmol/L | [facility] | | | PLASMA | | | LABORATORY | | | (LAB) | | | SERVICES, | | | | | | CORE | | + +---------+ + + + | CALCIUM, | 8.1 (L) | 8.6 - 10.2 | [facility] | | | PLASMA | | mg/dL | LABORATORY | | | (LAB) | | | SERVICES, | | | | | | CORE | | + +---------+ + + + | CALCIUM(ALB | 8.5 (L) | 8.6 - 10.2 | [facility] | | | CORRECTED) | | mg/dL | LABORATORY | | | | | | SERVICES, | | | | | | CORE | | + +---------+ + + + | BILIRUBIN | 0.5 | 0.3 - 1.2 mg/dL | [facility] | | | TOTAL | | | LABORATORY | | | | | | SERVICES, | | | | | | CORE | | + +---------+ + + + | TOTAL | 6.7 | 6.4 - 8.2 g/dL | [facility] | | | PROTEIN, | | | LABORATORY | | | PLASMA | | | SERVICES, | | | (LAB) | | | CORE | | + +---------+ + + + | ALBUMIN, | 3.5 | 3.5 - 4.7 g/dL | [facility] | | | PLASMA | | | LABORATORY | | | (LAB) | | | SERVICES, | | | | | | CORE | | + +---------+ + + + | ALK PHOS | 101 (H) | 42 - 98 U/L | [facility] | | | | | | LABORATORY | | | | | | SERVICES, | | | | | | CORE | | + +---------+ + + + | AST(SGOT) | 13 | <=41 U/L | [facility] | | | | | | LABORATORY | | | | | | SERVICES, | | | | | | CORE | | + +---------+ + + + | ALT (SGPT) | 24 | <=60 U/L | [facility] | | | | | | LABORATORY | | | | | | SERVICES, | | | | | | CORE | | + +---------+ + + + | ANION GAP | 8 | mmol/L | [facility] | | | | | | LABORATORY | | | | | | SERVICES, | | | | | | CORE | | + +---------+ + + + | ANION | 9 | 4 - 11 mmol/L | [facility] | | | GAP(ALB | | | LABORATORY | | | CORRECTED) | | | SERVICES, | | | | | | CORE | | + +---------+ + + + | POTASSIUM | No Hemo | | [facility] | | | CMNT | | | LABORATORY | | | [...] Performed At | + + + | GFR is estimated using the MDRD equation recommended by the | [facility] | | National Kidney Disease Education Program. Estimated GFR | LABORATORY | | Interpretive Information: <60 mL/min/1.73 sq | SERVICES, CORE | | m Chronic Kidney Disease <15 mL/min/1.73 | | | sq m Kidney Failure Estimated GFR greater | | | that 60 mL/min/1.73 sq m is of limited clinical value. 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
--- OUTSIDE RECORDS SUMMARY | ~2019-01-06 | XMS | Encounter Summary ---
Demographics + + + | Address | [address] | | | [place] [address] | + + + | Home Phone | | + + + | Preferred Language | Unknown | + + + | Marital Status | | + + + | Christianity Affiliation | NON | + + + | Race | White | + + + | Ethnic Group | Not or | + + + Author + + + | Author | [facility] | + + + | Organization | [facility] | + + + | Address | [...] Team Providers + +------+ + | Care Wash And Greaser Name | Role | Phone | + +------+ + | No Pcp Per Patient | PCP | Unavailable | + +------+ + Reason for Visit + + + | Reason | Comments | + + + | Refill Request | | + + + Encounter Details +--------+--------+ + + + | Date | Type | Department | Care Team | Description | +--------+--------+ + + + | 04/07/ | Refill | Hematology/Medical | Fernanda, | Refill Request | | 2016 | | Oncology at [place] | [address] | | | | | [facility] | [address] [place], | | | | | [address] | [place] [address] | | | | | Mailcode: [place] | [phone] | | | | | for Health and | | | | | | Healing, [address] | | | | | | [place], [place] | | | | | | [address] | | | | | | [phone] | | | +--------+--------+ + + + [...]
--- OUTSIDE RECORDS SUMMARY | ~2019-01-06 | XMS | Encounter Summary ---
Demographics + + + | Address | [address] | | | [place] [address] | + + + | Home Phone | | + + + | Preferred Language | Unknown | + + + | Marital Status | | + + + | Congregational Affiliation | NON | + + + [...] Team Providers + +------+ + | Care Cpht Name | Role | Phone | + [...] + + + + | 06/25/ | Documentati | [facility] for | Work, Social | Social Work Notes | | 2016 | on | Hematologic | | | | | | Malignancies at | | | | | | [facility] | | | | | | [address] | | | | | | [facility] | | | | | | Mailcode: [id number] | | | | | | Joanne Herman | | | | | | [place], [place] | | | | | | [address] | | | | | | [phone] | | | +--------+ + + + [...]
--- OUTSIDE RECORDS SUMMARY | ~2019-01-06 | XMS | Encounter Summary ---
Demographics + + + | Address | [address] | | | [place] [address] | + + + | Home Phone | | + + + | Preferred Language | Unknown | + + + | Marital Status | | + + + | Holiness Affiliation | NON | + + + | Race | White | + + + | Ethnic Group | Not or | + + + Author + + + | Author | [facility] | + + + | Organization | [facility] | + + + | Address [...] Team Providers + +------+ + | Care Short Filler Bunch Machine Operator Name | Role | Phone | + +------+ + | No Pcp Per Patient | PCP | Unavailable | + +------+ + Reason for Referral Consultation (Routine) +--------+--------+ + + + + | Status | Reason | Specialty | Diagnoses / | Referred By | Referred To | | | | | Procedures | Contact | Contact | +--------+--------+ + + + + | Closed | | Non [facility] | Diagnoses | Quirino Moreno | | | | | Department | Nodular | MD Ronak,PhD | [place], | | | | | sclerosis | [address] | Aashish Carpenter MD | | | | | Hodgkin | [facility] | [address] | | | | | lymphoma of | Rd | [address] | | | | | lymph nodes | [place], [place] | [facility], [place] | | | | | of multiple | [address] | [address] Phone: | | | | | regions | Phone: | [phone] | | | | | (HCC) | [phone] | Fax: | | | | | Procedures | Fax: | [phone] | | | | | CONSULT TO | [phone] | | | | | | HEMATOLOGY / | | | | | | | ONCOLOGY | | | +--------+--------+ + + + + Encounter Details +--------+ + + + + | Date | Type | Department | Care Team | Description | +--------+ + + + + | 04/05/ | Clerical Administrative Assistant | Center for | Quirino Moreno I, | Nodular sclerosis | | 2016 | | Hematologic | ,PhD [address] [facility] | Hodgkin lymphoma of | | | | Malignancies at | [facility] [address] | lymph nodes of | | | | [facility] | [place], [place] | multiple regions | | | | [address] [facility] | [address] | (HCC) (Primary Dx) | | | | [facility] | [phone] | | | | | Mailcode: [id number] | | | | | | [facility] | | | | | | [place], [place] | | | | | | [address] | | | | | | [phone] | | | +--------+ + + + [...]
--- OUTSIDE RECORDS SUMMARY | ~2019-01-06 | XMS | Encounter Summary ---
Demographics + + + | Address | [address] | | | [place] [address] | + + + | Home Phone | | + + + | Preferred Language | Unknown | + + + | Marital Status | | + + + | Jainism Affiliation | NON | + + + | Race | White | + + + | Ethnic Group | Not or | + + + Author + + + | Author | [facility] | + + + | Organization | [facility] | + + + | [...] Team Providers + +------+ + | Care Glass Cleaner Name | Role | Phone | + +------+ + | Aashish Hilton MD | PCP | | + +------+ + Encounter Details +--------+ + + + + | Date | Type | Department | Care Team | Description | +--------+ + + + + | 11/11/ | Telephone | Center for | Maura Lai, | | | 2016 | | Hematologic | RN [address] | | | | | Malignancies at | [facility] | | | | | [facility] | [place], [place] | | | | | [address] [facility] | [address] | | | | | [facility] | [phone] | | | | | Mailcode: [id number] | | | | | | [facility] | | | | | | [place], [place] | | | | | | [address] | | | | | | [phone] | | | +--------+ + + + [...]
--- OUTSIDE RECORDS SUMMARY | ~2019-01-06 | XMS | Encounter Summary ---
Demographics + + + | Address | [address] | | | [place] [address] | + + + | Home Phone | | + + + | Preferred Language | Unknown | + + + | Marital Status | | + + + | Jew Affiliation | NON | + + + [...] Team Providers + +------+ + | Care Sales Management Intern Name | Role | Phone | + +------+ + | Aashish Hilton MD | PCP | | + +------+ + Reason for Visit + + + | Reason | Comments | + + + | Lab Draw | Power PICC | + + + | Injection | Neupogen 480 mcg | + + + Other (Routine) +--------+--------+ + + + + | Status | Reason | Specialty | Diagnoses / | Referred By | Referred To | | | | | Procedures | Contact | Contact | +--------+--------+ + + + + | Closed | | Hematology | Diagnoses | Quirino Moreno | [facility] | | | | Malignancy | Nodular | MD Ronak,PhD | [facility] [address] | | | | | sclerosis | [address] | [address] | | | | | Hodgkin | [facility] | [facility] | | | | | lymphoma of | Rd | Mailcode: | | | | | lymph nodes | [facility] [place] | [id number] | | | | | of multiple | [address] | [place] | | | | | regions | Phone: | [place] | | | | | (HCC) | [phone] | [place], [place] | | | | | Procedures | Fax: | [phone] | | | | | [facility] (For | [phone] | Phone: | | | | | Mobil[facility]) | | [phone] | | | | | | | Fax: | | | | | | | [phone] | +--------+--------+ + + + + Encounter Details +--------+ + + + + | Date | Type | Department | Care Team | Description | +--------+ + + + + | 08/08/ | Clinical | [facility] | | Lab Draw (Power PICC | | 2016 | Support | Hematologic | | ); Injection | | | Staff | Malignancies at [facility] | | (Neupogen 480 mcg ) | | | | [address] | | | | | | [facility] | | | | | | Mailcode: [id number] | | | | | | [facility]anne [facility] | | | | | | [place], [place] | | | | | | [address] | | | | | | [phone] | | | +--------+ + + + [...] + + + | Blood Pressure | 109/80 | 08/08/2016 10:41 AM | | | | | PST | | + + + + + | Pulse | 96 | 08/08/2016 10:41 AM | | | | | PST | | + + + + + | Temperature | 36.8 C (98.3 F) | 08/08/2016 10:41 AM | | | | | PST | | + + + + + | Respiratory Rate | 20 | 08/08/2016 10:41 AM | | | | | PST | | + + + + + | Oxygen Saturation | 98% | 08/08/2016 10:41 AM | | | | | PST | | + + + + + | Inhaled Oxygen | - | - | | | Concentration | | | | + + + + + | Weight | 93.8 kg (206 lb 12.7 | 08/08/2016 10:41 AM | | | | oz) | PST | | + + + + + | Height | - | - | | + + + + + | Body Mass Index | 30.45 | 07/15/2016 4:20 PM | | | | | PST | | + + + + + documented in this encounter Progress Notes Rosalinda Najera RN - 08/08/2016 11:00 AM PSTFormatting of this note might be different fro m the original. INFUSION/TRANSFUSION NURSING NOTE Provider: Quirino Moreno MD Narrative: Meggan Otero is a 20 y.o female with a h/o Hodgkin's Lymphoma, s/p BEAM con ditioned autologous transplant (Day 0 = 07/21/2016). Patient arrives via w/c for supportive m easures. Patient accompanied by spouse, Qamar. Nursing Assessment: Vital Signs: VSS Pain: Denies Fever or chills: Denies Dyspnea / Cough: Pt reports LEWIS. Denies dyspnea at rest. Dizziness / Lightheadedness: Denies Chest Pain: Denies S/S bleeding: Denies Edema: Denies Rash: Denies Fatigue or sleep disturbance: Moderate fatigue. Mucositis: Denies Nausea, vomiting or loss of appetite: Nausea with one episode of emesis this AM. Reports ad equate relief with antiemetic. Per pt, appetite improved. Fluid intake: Drinking 2 L per day. Diarrhea or constipation: Denies Urinary issues: Denies Vascular Access: Power PICC intact to RUE without S/S infection. Power PICC accessed per protocol. Good blood return noted. Appropriate waste discarded. Lab s drawn and sent from red lumen. Power PICC pulse flushed with 20 mL NS. Prior to D/C, dressing reinforced on edges. Labs: CBC with diff last 72 hours (or 3 results) Recent Labs 08/05/16 2330 08/07/16 0003 08/08/16 1112 WBC 1.10* 1.39* 1.8* HB 7.9* 7.1* 7.1* HCT 23.6* 20.9* 21.8* PLT 13* 26* 22* NEUTROPERC 70.0 65.4 -- LYMPHPERC 20.9 24.5 -- MONOPERC 7.3 7.2 7.6 BASOPERC 0.9 0.7 0.0 EOSPERC 0.0* 0.0* 0.0* Chemistries: Last 72 Hours (or 3 results): Recent Labs 08/05/16 2330 08/07/16 0003 NA 142 143 K 3.2* 3.3* CL 109* 109* BICARB 24 24 BUN 7 8 CR 0.64 0.72 GLU 96 97 CA 8.2* 8.4* MG 2.1 2.1 PO4 2.3* 2.3* Treatment Provided: Infusion Plan: Platelet parameter 20,000. No transfusions needed. Pt does have current T&S. Neupogen 480 mcg from pharmacy injected subcutaneously to left arm per orders. No reaction noted. See MAR for details. Supportive Plan: Eculizumab due 08/09/2016. Patient received last dose 07/26/2016. Orders c onfirmed with Moonlighter. Prior to D/C, all questions and concerns addressed. Patient was reminded to call clinic wit h temp > 100.4, chills, s/s of bleeding or uncontrolled N/V/D/C. Patient d/c d ambulato ry with spouse in stable condition. Next Appointment in [facility] is on 08/09/16 at 9:20 am with [facility]. Rosalinda Najera RN documented in this en counter Plan of Treatment Not on filedocumented as of this encounter Procedures + +--------+ + + + | Procedure Name | Priori | Date/Time | Associated Diagnosis | Comments | | | ty | | | | + +--------+ + + + | NURSING | Routin | 08/08/2016 | Nodular sclerosis | | | COMMUNICATION #3 - | e | 11:27 AM | Hodgkin lymphoma of | | | [place] | | PST | lymph nodes of | | | | | | multiple regions | | | | | | (HCC) | | + +--------+ + + + | NURSING | Routin | 08/08/2016 | Nodular sclerosis | | | COMMUNICATION #2 - | e | 11:27 AM | Hodgkin lymphoma of | | | [place] | | PST | lymph nodes of | | | | | | multiple regions | | | | | | (HCC) | | + +--------+ + + + | NURSING | Routin | 08/08/2016 | Nodular sclerosis | | | COMMUNICATION #1 - | e | 11:27 AM | Hodgkin lymphoma of | | | [place] | | PST | lymph nodes of | | | | | | multiple regions | | | | | | (HCC) | | + +--------+ + + + | TREATMENT PARAMETERS | Routin | 08/08/2016 | Nodular sclerosis | | | #1 - [place] | e | 11:27 AM | Hodgkin lymphoma of | | | | | PST | lymph nodes of | | | | | | multiple regions | | | | | | (HCC) | | + +--------+ + + + | TREATMENT PARAMETERS | Routin | 08/08/2016 | Nodular sclerosis | | | #1 - [place] | e | 11:27 AM | Hodgkin lymphoma of | | | | | PST | lymph nodes of | | | | | | multiple regions | | | | | | (HCC) | | + +--------+ + + + | CBC+DIFF,POC | Routin | 08/08/2016 | Autologous bone | Results for this | | | e | 11:12 AM | marrow | procedure are in the | | | | PST | transplantation | results section. | | | | | status (HCC) | | | | | | Nodular sclerosis | | | | | | Hodgkin lymphoma of | | | | | | lymph nodes of | | | | | | multiple regions | | | | | | (HCC) | | + +--------+ + + + documented in this encounter Results CBC+DIFF,POC (08/08/2016 11:12 AM PST) + + + + + [...] + + + | RBC POC | 2.34 (L) | 4.00 - 5.20 | [facility] - | | | | | 10*6/uL | [facility] | | | | | | [facility] | | | | | | OF CARE | | | | | | TESTS | | + + + + + + | HGB POC | 7.1 (L) | 12.0 - 16.0 | [facility] - | | | | | g/dL | [facility] | | | | | | [facility] | | | | | | OF CARE | | | | | | TESTS | | + + + + + + | HCT POC | 21.8 (L) | 36.0 - 46.0 % | [facility] - | | | | | | [facility] | | | | | | [facility] | | | | | | OF CARE | | | | | | TESTS | | + + + + + + | MCV POC | 93.2 | 80.0 - 96.0 fL | [facility] - | | | | | | [facility] | | | | | | [facility] | | | | | | OF CARE | | | | | | TESTS | | + + + + + + | MCH POC | 30.3 | 29.0 - 32.0 pg | [facility] - | | | | | | [facility] | | | | | | [facility] | | | | | | OF CARE | | | | | | TESTS | | + + + + + + | MCHC POC | 32.6 | 33.0 - 35.5 | [facility] - | | | | | g/dL | [facility] | | | | | | [facility] | | | | | | OF CARE | | | | | | TESTS | | + + + + + + | RDW SD, POC | 44.6 | 35.1 - 46.3 fL | [facility] - | | | | | | [facility] | | | | | | [facility] | | | | | | OF CARE | | | | | | TESTS | | + + + + + + | PLT POC | 22 (L) | 150 - 400 | [facility] - | | | | | 10*3/uL | [facility] | | | | | | [facility] | | | | | | OF CARE | | | | | | TESTS | | + + + + + + | MPV POC | ---- | 9.7 - 12.3 fL | [facility] - | | | | | | [facility] | | | | | | [facility] | | | | | | OF CARE | | | | | | TESTS | | + + + + + + | NEUTROPHIL% | 66.9 | 50.0 - 70.0 % | [facility] - | | | POC | | | [facility] | | | | | | [facility]INT | | | | | | OF CARE | | | | | | TESTS | | + + + + + + | LYMPH% POC | 25.5 | 18 - 42 % | [facility] - | | | | | | [facility] | | | | | | [place] | | | | | | OF CARE | | | | | | TESTS | | + + + + + + | MONO %, POC | 7.6 | 3.5 - 9.0 % | [facility] - | | | | | | [facility] | | | | | | [facility] POINT | | | | | | OF CARE | | | | | | TESTS | | + + + + + + | EOS %, POC | 0.0 (L) | 1.0 - 3.0 % | [facility] [...] + + + + | NEUTROPHIL# | 1.2 (L) | 1.8 - 7.7 | [facility] - | | | POC | | 10*3/uL | [facility] | | | | | | [facility] | | | | | | OF CARE | | | | | | TESTS | | + + + + + + | LYMPH# POC | 0.5 (L) | 1.0 - 4.8 | [facility] - | | | | | 10*3/uL | [facility] | | | | | | [facility] | | | | | | OF CARE | | | | | | TESTS | | + + + + + + | MONO #, POC | 0.1 | 0.1 - 0.9 | [facility] - [...] + + | CBC | Imm Gran. LFT Shift. | | [facility] - | | | [...] [place] | 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
--- OUTSIDE RECORDS SUMMARY | ~2019-01-06 | XMS | Encounter Summary ---
Demographics + + + | Address | [address] | | | [place] [address] | + + + | Home Phone | | + + + | Preferred Language | Unknown | + + + | Marital Status | | + + + | Sabianism Affiliation | NON | + + + [...] Team Providers + +------+ + | Care Custom Bow Maker Name | Role | Phone | + +------+ + | No Pcp Per Patient | PCP | Unavailable | + +------+ + Encounter Details +--------+ + + + + | Date | Type | Department | Care Team | Description | +--------+ + + + + | 06/15/ | Studio Artist | [facility] for | Quirino Moreno I, | | | 2016 | | Hematologic | ,PhD [address] | | | | | Malignancies at | [facility] | | | | | Joanne Herman | [place], [place] | | | | | [address] [facility] | [address] | | | | | [facility] | [phone] | | | | | Mailcode: [id number] | | | | | | [facility] | | | | | | [place], [place] | | | | | | [address] | | | | | | [phone] | | | +--------+ + + + [...]
--- OUTSIDE RECORDS SUMMARY | ~2019-01-06 | XMS | Encounter Summary ---
Demographics + + + | Address | [address] | | | [place] [address] | + + + | Home Phone | | + + + | Preferred Language | Unknown | + + + | Marital Status | | + + + | Spiritism Affiliation | NON | + + + [...] Team Providers + +------+ + | Care Network Communications Engineer Name | Role | Phone | + +------+ + | No Pcp Per Patient | PCP | Unavailable | + +------+ + Encounter Details +--------+ + + + + | Date | Type | Department | Care Team | Description | +--------+ + + + + | 06/11/ | Telephone | Center for | Maura Lai, | | | 2015 | | Hematologic | RN [address] | | | | | Malignancies at | [facility] | | | | | Joanne Herman | [place], [place] | | | | | [address] [facility] | [address] | | | | | [facility] | [phone] | | | | | Mailcode: [id number] | | | | | | [address] | | | | | | [place], [place] | | | | | | [address] | | | | | | [phone] | | | +--------+ + + + [...]
--- OUTSIDE RECORDS SUMMARY | ~2019-01-06 | XMS | Encounter Summary ---
Demographics + + + | Address | [address] | | | [place] [address] | + + + | Home Phone [...] Team Providers + +------+ + | Care Gui Developer Name | Role | Phone | + [...] Description | +--------+---------+ + + + | 07/30/ | Surgery | 6A Intra Op [facility] | Josesito Martinez MD | [employer] | | 2015 | | [facility] | [address] | REMOVAL; PORT | | | | Admitting Desk | [facility], | REMOVAL. Culture x 2 | | | | Located on the | [place] [address] | | | | | floor [address] [facility] | [phone] | | | | | [facility] | | | | | | [place], [place] | | | | | | [phone] | | | +--------+---------+ + + + [...] + + + | Blood Pressure | 129/88 | 08/07/2016 11:44 AM | | | | | PST | | + + + + + | Pulse | 99 | 08/07/2016 11:44 AM | | | | | PST | | + + + + + | Temperature | 36.7 C (98.1 F) | 08/07/2016 11:44 AM | | | | | PST | | + + + + + | Respiratory Rate | 16 | 08/07/2016 11:44 AM | | | | | PST | | + + + + + | Oxygen Saturation | 98% | 08/07/2016 11:44 AM | | | | | PST | | + + + + + | Inhaled Oxygen | - | - | | | Concentration | | | | + + + + + | Weight | 96.5 kg (212 lb 11.9 | 08/07/2016 6:19 AM | | | | oz) | PST | | + + + + + | Height | 175.5 cm (5' 9.09") | 07/15/2016 4:20 PM | | | | | PST | | + + + + + | Body Mass Index | 31.33 | 07/15/2016 4:20 PM | | | | | PST | | + + + + + documented in this encounter Discharge Summaries Ignacio Decker PA-C,JOSE RAMON - 08/07/2016 11:[address] [facility] Discharge Summary Discharging Provider: Ignacio Decker PA-C, MPAS Discharging Attending Physician: Laura Irizarry MD Hospital Stay: 23 day(s) PCP: Aashish Hilton MD Admission Date: 07/15/2016 Discharge Date: 08/07/16 Hospital Stay: 23 day(s) Reason for Admission: BEAM Conditioned Autologous SCT Principal Final Diagnosis: Hodgkins Lymphoma Additional Diagnoses: HUS (hemolytic uremic syndrome), atypical (HCC) Hx of Clostridium difficile infection Chronic deep vein thrombosis (DVT) (HCC) Obesity, Class I, BMI 30-34.9 Immunosuppressed due to chemotherapy (HCC) Chemotherapy induced nausea and vomiting Autologous bone marrow transplantation status (HCC) MRSA bacteremia Neutropenic fever (HCC) Mucositis due to chemotherapy Pancytopenia due to chemotherapy (HCC) Procedures: None Hospital Course: Meggan Otero is a 20yo female with relapsed Hodgkins Lymphoma. He was admitted on 07/15/16 for BEAM conditioned Autologous Stem Cell Transplant. Meggan had a relatively benign transpla nt admission with expected pancytopenia supported with transfusions, CINV and electrolyte ab normalities. She developed a neutropenic fever which was treated with Cefepime initially but her cultures showed MRSA bacteremia and she was started on Vancomycin and she will complete a course of Vanco on 08/15/15. Her counts recovered as expected with supportive neupogen and he was discharged home for daily neupogen and supportive care in the clinic. Hematology/Onc: #Relapsed HL Conditioning regimen: BEAM -Carmustine 300 mg/m IV on day -6 -Etoposide 200 mg/m IV daily on days -5, -4,- 3, and -1 -Cytarabine 400 mg/m daily on days -5, -4,- 3, and -1 -Melphalan 140 mg/m IV on day -1 Stem cell transplant -Day: +17 -Tolerated autologous product on 07/21/16. 7.3x10^6 per kg CD 34+ cells Post-BMT Plan: -Plan for Brentuximab maintenance starting ~6 wks post-BMT back home which improves EFS in high risk pts post-auto. She meets high risk criteria due to early relapse. #Pancytopenia d/t chemo -Antimicrobials as below -See supportive care #Supportive Care: Growth Factor: Started daily Zarxio dosing on Day +5 (07/26) and will continue until ANC > 1500 x 2 consecutive days. Labs: Continue to check CBC with diff daily Transfusion parameters: -Transfuse PRBCs for HCT <21% if asymptomatic OR <24% if symptomatic -Transfuse PPH for platelet count <20K (anticoagulation) or sooner PRN s/s active bleeding HEENT: #Recent [place] Tooth Extractions (~2-[address] CROSSING GUARD): Nearly resolved -NS rinses PRN Pulmonary: Pretransplant PFTs completed on 06/25/16 (at [facility]) showed FEV1 of 86% pred icted, FVC of 90% predicted and DLCO of 50% predicted. No acute issues Cardiovascular: Pretransplant MUGA completed on 06/24/16 (at [facility]) showed a LVEF of 5 5%. #RLE DVT (first noted 07/04/15, persists on 07/16 doppler in R axial calf): Apixaban ROAD CROSSING GUARD -STOPPED Apixiban 5 mg BID on admission, plan to switch from lovenox to apixaban when plts> 50K -Received Tx-dose Lovenox until plts <50K (07/15-07/25) -Lovenox 40 mg qpm while thrombocytopenic w/ keeping plts >20K #Orthostatic HoTN (first noted 07/20): Sx improved with NS boluses but persistently Sx when getting OOB. -1L NS boluses PRN if asymptomatic GI: #GERD: Pepcid ROAD CROSSING GUARD -Prilosec 40 mg daily #Mucositis: pain without ulcerations, grade 2 -Continue oral care with normal saline rinses frequently -Liquid medications as able -Dilaudid DIE CUTTING MACHINE OPERATOR (07/27 -08/04). #[place]: ongoing, improved -Zofran IV/PO q 12 hrs -Zyprexa 10 mg qhs -Ativan, Haldol prn. : #Atypical HUS: Eculizumab ROAD CROSSING GUARD -Eculizumab q 2 weeks, next dose 08/09. Plan to administer as outpatient. -Monitor for hemolysis flare -Monitor LDH, hapto, complement activity qMon, Thurs #Menstrual suppression: Mild bleed -Norethindrone started 08/05 Neuro/Psych: #Depression/Anxiety: Lexapro ROAD CROSSING GUARD -Lexapro 10 mg daily -Ativan PRN Infectious Disease: #Neutropenic fevers (first 07/28) +MRSA bacteremia (+07/28): CXR clear. ID following -EGS removed PAC and Goodman in [place] on 07/30. -Continue Cefepime (07/28- 08/05), d/t neutropenic fevers -Vancomycin (07/29- ) added with MRSA +BCx , end date 08/15/16 -F/u BCx 07/30-08/01 NGTD/negative. -TTE 07/30 negative for vegetations. #Hx C. Diff Colitis: not active, last checked 07/23 negative. -Flagyl prophy started on Day 0 (07/21-07/29) per Dr. Link -PO Vanco BID (07/29-08/05) initially switched from QID per ID d/t nausea, stopped 08/05 wi th count recovery & on stopping Cefepime per Dr. Link. #Prophylaxis: Bacterial: As above Fungal: Fluconazole started day 0 and continues until Day +30 Viral: Valacyclovir started day +1; will switch to Acyclovir upon discharge and continue un til Day +365 PCP: starts around Day +30 to +40 ( Plan for Pentam as sulfa allergic), pending platelet co unts >50K. PCP prophy to continue 6 mos post PBSCT Toxo: (06/17/16) Toxo neg. No further testing required Fluid/Nutrition/Lytes: #Nutrition: Regular diet, No Adriane's yogurt or Kefir #Fluid: overnight 1L as needed for PO intake <2L by 2200. #Lytes: Continue to check chemistries daily. Replace per supportive care protocol. Discharge Physical Exam: Last 24 hour min/max Temp: 37 C (98.6 F) Temp Min: 36.5 C (97.7 F) Max: 37 C (98.6 F) Pulse: 98 Pulse Min: 93 Max: 107 Resp: 16 Resp Min: 16 Max: 18 BP: 127/87 BP Min: 115/76 Max: 130/80 SpO2: 99 % SpO2 Min: 95 % Max: 99 % Body mass index is 31.33 kg/(m^2). General: This is a female in no acute distress, lying in bed. HEENT: PERRL. Sclerae anicteric. No erythema or exudates. Skin: No rash, lesions noted. Acneform rash on face. Chest: Lungs clear to auscultation bilat, lightly diminished breath sounds. CV: RRR, no murmurs. Abdomen: S/NT/ND with NABS. No HSM appreciated. Extremities: Pulses strong and equal bilaterally. No c/c/BLE with trace non-pitting edema. Neuro: Alert and oriented x 3. Grossly nonfocal exam. CVC: Rt arm PICC c/d/i Discharge Medications: Current Discharge Medication List START taking these medications Details acyclovir 200 mg/5 mL oral suspension Take 20 mL by mouth once daily. Qty: 600 mL, Refills: 11 enoxaparin 40 mg/0.4 mL subcutaneous syringe Inject 0.4 mL under the skin (SUBC) once daily in the evening. Indications: Deep Venous Thrombosis Qty: 14 Syringe, Refills: 2 fluconazole 40 mg/mL oral suspension for reconstitution Take 10 mL by mouth once daily. Qty: 300 mL, Refills: 3 norethindrone 0.35 mg oral tablet Take 1 tablet by mouth once daily. Qty: 28 tablet, Refills: 5 OLANZapine 10 mg oral tablet,disintegrating Dissolve 1 tablet in mouth once daily at bedtim e. Qty: 30 tablet, Refills: 1 ondansetron (ZOFRAN, HYDROCHLORIDE,) 8 mg oral tablet Take 1 tablet by mouth every twelv e hours as needed for nausea/vomiting. Qty: 60 tablet, Refills: 11 senna-docusate 8.6-50 mg oral tablet Take 1-2 tablets by mouth every twelve hours as needed . Indications: Constipation ursodiol 300 mg oral capsule Take 1 capsule by mouth two times daily for 6 days. Qty: 12 capsule, Refills: 0 vancomycin 1,000 mg intravenous recon soln Inject 2,000 mg into the vein (IV) every twelve hours for 9 days. To be admixed per infusion pharmacy standard policy and/or procedure. END DATE 08/15/16 Qty: 360 mL, Refills: 0 CONTINUE these medications which have CHANGED or have new prescriptions Details escitalopram oxalate (LEXAPRO) 10 mg oral tablet Take 1 tablet by mouth once daily in the e vening. Qty: 30 tablet, Refills: 3 famotidine 20 mg oral tablet Take 1 tablet by mouth two times daily. Qty: 60 tablet, Refills: 5 LORazepam 0.5 mg oral tablet Take 1 tablet by mouth every six hours as needed for anxiety ( nausea, vomiting). Qty: 60 tablet, Refills: 0 oxyCODONE, immediate release, 5 mg oral tablet Take 1 to 2 tablets by mouth every six hours as needed for moderate pain. Qty: 60 tablet, Refills: 0 STOP taking these medications apixaban 5 mg oral tablet Comments: Reason for Stopping: ECULIZUMAB (SOLIRIS IV) Comments: Reason for Stopping: lidocaine-prilocaine 2.5-2.5 % topical cream Comments: Reason for Stopping: OLANZapine 5 mg oral tablet Comments: Reason for Stopping: Rationale for Medication Changes: Medications changed based on patient symptoms, medical interventions and chronic disease leonor mon. Allergies: Allergies Allergen Reactions Promethazine Pruritus, Rash and Dystonia Sulfa (Sulfonamide Antibiotics) Hives and Dyspnea Sulfacetamide Sodium Hives Compazine [Prochlorperazine] Agitation Code Status: Full POLST completed: no Additional Instructions: Destination: Destination: Home Condition on Discharge Good Maintain Intravenous Catheter PICCCatheter Care:Biopatch and transparent dressing changed weekly (to be done in clinic).S joseph Flush (for PICC Groshong catheters). Flush each lumen of central catheter with 5 cc N S each week or after medications. Diet Regular Regular diet- There are no restrictions to your diet. You may eat or drink whatever you pr efer, though healthy food choices are recommended. Activity Activity as tolerated. Avoid ill close contacts and large crowds. Do not drive if you are taking sedating pain or antinausea medications. Other Discharge Orders and Instructions Call the BMT clinic ([phone]) or BMT person on-call ([phone]) for: Any temp > 100.4 Nausea/vomiting unresponsive to anti-nausea medications Significant diarrhea despite Imodium Inability to drink at least 2 liters of fluid daily You develop a rash Bleeding Over the counter Medication- use as needed: __ Benadryl (Diphenhydramine) 25 mg by mouth every 6 hours as needed for sleep, itching, na usea or restlessness. __ Antacids - One ounce or one tablet every 2-4 hours as needed for heartburn. Call your d octor if heartburn persists or isn t relieved with this medication. __ Anusol Cream - Apply a small amount to external rectal area as needed for hemorrhoidal d iscomfort. Do not apply internally. Call your doctor for persistent discomfort, bleeding o r pain. __ Lubriderm lotion - apply to skin twice a day as needed to treat dry skin __ Eucerin Cream - apply to skin twice a day as needed to treat dry skin. __ Sunscreen - as needed SPF 15 or greater. Apply to sun-exposed skin before exposure to direct sunlight or outside activities. Follow Up: Future Appointments Provider Department Dept Phone Center 08/08/2016 11:00 AM [facility] INFUSION NURSE; [facility] [phone] Center for H 08/09/2016 9:20 AM [facility] INFUSION NURSE; [facility] INF[facility]ION [facility] at [facility] [phone] Center for H 08/10/2016 2:40 PM [facility] INFUSION NURSE; [facility] INFUSION [facility] at [facility] [phone] Center for H 08/10/2016 3:15 PM Coreen Grissom; [facility] MA SUPPORT [facility]ancies at [facility] [phone] Center for H 08/13/2016 12:40 PM [facility] INFUSION NURSE; [facility] [phone] Center for H 08/13/2016 1:15 PM Coreen Grissom; [facility] MA SUPPORT Center for H[facility] Malignancies at [facility] [phone] Center for H 08/17/2016 12:40 PM [facility] INFUSION NURSE; [facility] IN[facility]ION [facility] at [facility] [phone] Center for H 08/17/2016 1:15 PM Coreen Grissom; [facility] SUPPORT Center for Hematologic Malignancies at [facility] [phone] Center for H 08/20/2016 12:40 PM [facility] INFUSION NURSE; [facility] INFUSION [facility]ignancies at [facility] [phone] Center for H 08/20/2016 1:15 PM Coreen Grissom; [facility] SUPPORT Center for Hematologic Malignancies at [facility] [phone] Center for H JOSE RAMON Pemberton PA-C [facility] [address]K [id number] Mailcode: [id number] [place] [address] documented in thi s encounter Discharge Instructions Instructions Matheus Olsen RN - 08/02/2016Case Management Discharge Instruction: [facility] will provide your line care supplies and IV abx o n discharge. Call [phone] for questions , concerns or refill of supplies. Eleni Gutierrez RNspecial education paraprofessional [phone] Check your oral temperature twice a day and whenever you feel like you may have chills or a fever. Drink at least 2 Liters of fluids per day to prevent dehydration. Shower daily and WASH YOUR HANDS frequently. Avoid the use of potentially irritating skin products (perfume, cologne, scented lotions, e tc.) Rinse out your mouth with normal saline or salt water at least 4x/day. Make sure to brush your teeth at least 2x/day and as needed after meals (if your platelets are <50K, use a soft toothbrush and do not floss). Cover your central line when showering/bathing (avoid swimming pools, hot tubs, saunas, and whirlpools until your CVC is removed). Refrain from prolonged periods of time in the sun and make sure you ALWAYS wear sunscreen w hen outdoors. Clean surfaces with antibacterial wipes. No plants or beltran until approved by provider. Have your caregiver bathe and clean up after any pets. Wear a mask when around large groups of people. NO SICK CONTACTS! If this cannot be avoided and you suspect someone may be even mildly ill, have them wear a mask or wear one yourself. Stay active! Perform short periods of activity, then make sure to take time for rest. Call if you have any questions! [facility] ([facility]) during clinic hours (M-F 8:30-4:30): [phone] [facility] ([facility]) at all other times: [phone] 14KPV: [phone] How was your stay with us? Is there anything we could have done differently to improve your time here on 14K? documented in this encounter Medications at Time [...] documented as of this encounter Progress Notes Sky Irizarry MD - 08/07/2016 12:48 PM PSTHeme Malignancies/BMT I rounded today in conjunction with the Advanced Practice Provider Ignacio Decker I saw the patient, reviewed the history & relevant studies, and planned the discharge. Feels well. 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) Active Problems: HUS (hemolytic uremic syndrome), atypical (HCC) Hx of Clostridium difficile infection Chronic deep vein thrombosis (DVT) (HCC) Obesity, Class I, BMI 30-34.9 Immunosuppressed due to chemotherapy (HCC) Chemotherapy induced nausea and vomiting Autologous bone marrow transplantation status (HCC) MRSA bacteremia Neutropenic fever (HCC) Mucositis due to chemotherapy Pancytopenia due to chemotherapy (HCC) MD Sky De Luna MD [place] [id number] Mailcode: [id number] [place] [address] I spent 30 min in discharge of pt, >50% in counseling and care coordination any Phillips FNP - 08/06/2016 3:56 PM PST Daily NPP Note - Auto Transplant Admit [facility] Attending: Constantin Link MD [facility] Physician: Constantin Link MD PCP: Aashish Hilton MD Benign Hematology: Jim Michael MD ([facility]) Pediatric Heme/Onc: Anh Moreland MD ([place]) Nephrology: Raghav Miller MD ([place]) Date of Admission: 07/15/2016 Conditioning regimen: BEAM Date of transplant: 07/21/2016 Reason for admission: Planned BEAM-conditioned auto PBSCT for HL 24-Hr Events/Daily Plan: -Relapsed HL: Admitted for BEAM auto PBSCT, currently Day +17 -Pancytopenia: 2/2 chemo. Keep plts >20K d/t anticoagulation, standard Hct transfusion par ameters. Continue Norethindrone for menses, mild bleed.-Neutropenic fevers (first 07/28) w/ +MRSA bacteremia (+07/28): CXR clear. Repeat cultures 07/29 positive MRSA. Removed PAC and H ickman on 07/30. ID followed. -F/u BCx 07/30-08/01 negative. -Cefepime stopped with engraftment (07/28 -08/05) , continue Vancomycin for MRSA bact (07/15 5 - ) with goal trough 10-15. Follow Vanco level and Cr closely. Trough 21.6 (08/03). Repeat level 08/07. Pharmacy to follow and adjust dosing as needed. Plan for 2 week therapy from l ast fever (end date 08/15/16). DC PO Vanco prophylaxis (received ppx for h/o Cdiff , however p t is Cdiff neg this admission) Vanco IV set up on discharge. -TTE 07/30 negative for vegetations -new PICC placed 08/04. -Atypical HUS: Conts Eculizumab q 2 weeks, last dose 07/26. Plan to administer next dose as outpatient next week. Monitor for hemolysis flare. Monitor LDH, hapto, complement activity qMon, Thurs. -RLE DVT (first noted 07/04/15, persists on 07/16 doppler in R axial calf): Continue prophyl actic Lovenox QPM and keep plts >20K. -Mucositis: Grade 2 at worst with moderate pain, no ulceration: Received Dilaudid DIE CUTTING MACHINE OPERATOR (07/15 3-08/04). Continue prn oxycodone. -Nutrition: Taken 2.1L in PO fluids & 75-100% of 3 meals. -FVO: Remains off MIVF 2/2 FVO. Diurese prn. -[place]: continue scheduled Zofran/Zyprexa & prn antimetics. -Lytes: Standard electrolyte replacement. K repleted today. -DC dispo: Tentative plan for discharge tomorrow. Subjective: Feels better this morning. Pain and nausea improved. PO intake improving. Mychal es vomiting/abdl pain/diarrhea. Objective: Last Vitals: BP 116/84 | Pulse 101 | Temp 36.8 C (98.2 F) | RR 18 | Ht 1.755 m (5' 9.09 ") | Wt 96.6 kg (212 lb 15.4 oz) | SpO2 97% | BMI 31.36 kg/(m^2) 24 Hour Vital Min/Max: Systolic (24hrs), Av , Min:116 , Max:132 Diastolic (24hrs), Av, Min:72, Max:87 Pulse Min: 77 Max: 101 Temp Min: 36.7 C (98.1 F) Max: 37.1 C (98.8 F) Resp Min: 14 Max: 18 SpO2 Min: 94 % Max: 98 % Intake/Output Summary (Last 24 hours) at 08/06/16 1556 Last data filed at 08/06/16 1500 Gross per 24 hour Intake 2340 ml Output 2850 ml Net -510 ml Physical Exam: General: This is a female in no acute distress, lying in bed. HEENT: PERRL. Sclerae anicteric. No erythema or exudates. Skin: No rash, lesions noted. Acneform rash on face. Chest: Lungs clear to auscultation bilat, lightly diminished breath sounds. CV: RRR, no murmurs. Abdomen: S/NT/ND with NABS. No HSM appreciated. Extremities: Pulses strong and equal bilaterally. No c/c/BLE with trace non-pitting edema . Neuro: Alert and oriented x 3. Grossly nonfocal exam. CVC: Rt arm PICC c/d/i Recent Labs 08/03/16 2345 08/04/16 2355 08/05/16 2330 NA 143 143 142 K 3.1* 3.4 3.2* CL 109* 111* 109* BICARB 24 22 24 BUN 4* 6 7 CR 0.65 0.60 0.64 GLU 85 85 96 CA 7.9* 8.1* 8.2* AST 10 10 11 ALT 12 13 12 AP 68 77 80 TBILI 0.3 0.4 0.5 TP 5.6* 6.0* 6.0* ALB 2.5* 2.7* 2.7* Recent Labs 08/03/16 2345 08/04/16 2355 08/05/16 2330 WBC 0.55* 0.83* 1.10* RBC 2.57* 2.72* 2.67* HB 7.6* 8.1* 7.9* HCT 22.7* 24.0* 23.6* PLT 16* 20* 13* NEUTROPERC 69.1 68.7 70.0 LYMPHPERC 20.0 24.1 20.9 MONOPERC 10.9* 6.0 7.3 BASOPERC 0.0 0.0 0.9 EOSPERC 0.0* 0.0* 0.0* Meds: Reviewed on rounds, see current MAR for medication list Past Medical History: Meggan Otero is a 20 y.o. 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, admit for autoBMT Local oncologist: Aashish Hilton MD ([facility]/[place]) Benign Hematology: Jim Michael MD ([facility]) Pediatric Heme/Onc: Anh Moreland MD ([place]) Nephrology: Raghav Miller MD ([place]) 04/2015 presented with flank pain CT C/A/P: 11 cm anterior mediastinal mass, pleural effusion & L supraclav adenopathy Needle bx: classical hodgkins, nodular sclerosing type Thoracentesis: reactive/benign BMBx: neg PET: bulky mediastinal mass, SUV 16; bilateral neck SUV 15; also R>L pleural effusion 05/10/15 began ABVE-PC (as per pediatric [id number]) via femoral line 05/16/15 presented with sepsis [...] L neck: classical Hodgkins Above therapy in [place] -> moved to [place] Continued on ecalizumab per benign heme (Fernanda) - genetic testing for aHUS PENDING GDP x3 06/2017 CR by PET Goodman placed GCSF stem cell mobilization: 7.3 x10^6 cd34/kg Hospitalization History: Hematology/Onc: #Relapsed HL Conditioning regimen: BEAM -Carmustine 300 mg/m IV on day -6 -Etoposide 200 mg/m IV daily on days -5, -4,- 3, and -1 -Cytarabine 400 mg/m daily on days -5, -4,- 3, and -1 -Melphalan 140 mg/m IV on day -1 Stem cell transplant -Day: +17 -Tolerated autologous product on 07/21/16. 7.3x10^6 per kg CD 34+ cells Post-BMT Plan: -Plan for Brentuximab maintenance starting ~6 wks post-BMT back home which improves EFS in high risk pts post-auto. She meets high risk criteria due to early relapse. #Pancytopenia d/t chemo -Antimicrobials as below -See supportive care #Supportive Care: Growth Factor: Started daily Zarxio dosing on Day +5 (07/26) and will continue until ANC > 1500 x 2 consecutive days. Labs: Continue to check CBC with diff daily Transfusion parameters: -Transfuse PRBCs for HCT <21% if asymptomatic OR <24% if symptomatic -Transfuse PPH for platelet count <20K (anticoagulation) or sooner PRN s/s active bleeding HEENT: #Recent [place] Tooth Extractions (~2-[address] CROSSING GUARD): Nearly resolved -NS rinses PRN Pulmonary: Pretransplant PFTs completed on 06/25/16 (at [facility]) showed FEV1 of 86% pr edicted, FVC of 90% predicted and DLCO of 50% predicted. No acute issues Cardiovascular: Pretransplant MUGA completed on 06/24/16 (at [facility]) showed a LVEF of 5 5%. #RLE DVT (first noted 07/04/15, persists on 07/16 doppler in R axial calf): Apixaban ROAD CROSSING GUARD -STOPPED Apixiban 5 mg BID on admission, plan to switch from lovenox to apixaban when plt s>50K -Received Tx-dose Lovenox until plts <50K (07/15-07/25) -Lovenox 40 mg qpm while thrombocytopenic w/ keeping plts >20K #Orthostatic HoTN (first noted 07/20): Sx improved with NS boluses but persistently Sx when getting OOB. -1L NS boluses PRN if asymptomatic GI: #GERD: Pepcid ROAD CROSSING GUARD -Prilosec 40 mg daily #Mucositis: pain without ulcerations, grade 2 -Continue oral care with normal saline rinses frequently -Liquid medications as able -Dilaudid DIE CUTTING MACHINE OPERATOR (07/27 -08/04). #[place]: ongoing, improved -Zofran IV/PO q 12 hrs -Zyprexa 10 mg qhs -Ativan, Haldol prn. : #Atypical HUS: Eculizumab ROAD CROSSING GUARD -Eculizumab q 2 weeks, next dose 08/09. Plan to administer as outpatient. -Monitor for hemolysis flare -Monitor LDH, hapto, complement activity qMon, Thurs #Menstrual suppression: Mild bleed -Norethindrone started 08/05 Neuro/Psych: #Depression/Anxiety: Lexapro ROAD CROSSING GUARD -Lexapro 10 mg daily -Ativan PRN Infectious Disease: #Neutropenic fevers (first 07/28) +MRSA bacteremia (+07/28): CXR clear. ID following -EGS removed PAC and Goodman in OR on 07/30. -Continue Cefepime (07/28- 08/05), d/t neutropenic fevers -Vancomycin (07/29- ) added with MRSA +BCx , end date 08/15/16 -F/u BCx 07/30-08/01 NGTD/negative. -TTE 07/30 negative for vegetations. #Hx C. Diff Colitis: not active, last checked 07/23 negative. -Flagyl prophy started on Day 0 (07/21-07/29) per Dr. Link -PO Vanco BID (07/29-08/05) initially switched from QID per ID d/t nausea, stopped 08/05 wi th count recovery & on stopping Cefepime per Dr. Link. #Prophylaxis: Bacterial: As above Fungal: Fluconazole started day 0 and continues until Day +30 Viral: Valacyclovir started day +1; will switch to Acyclovir upon discharge and continue u ntil Day +365 PCP: starts around Day +30 to +40 ( Plan for Pentam as sulfa allergic), pending platelet c ounts >50K. PCP prophy to continue 6 mos post PBSCT Toxo: (06/17/16) Toxo neg. No further testing required Fluid/Nutrition/Lytes: #Nutrition: Regular diet, No Adriane's yogurt or Kefir #Fluid: overnight 1L as needed for PO intake <2L by 2200. #Lytes: Continue to check chemistries daily. Replace per supportive care protocol. Disposition: Pt with relapsed HL, adm for auto PBSCT. Anticipate 3-4 week hospitalization. MORENA Nieves [facility] [id number] Mailcode: [id number] [place], [place] [id number] [phone] signed by MORENA Ramos at 08/06/2016 4:43 PM PSTChen Constantin MD,PhD - 08/06/2016 2:57 PM PSTHeme Malignancies/BMT I rounded today in conjunction with the Advanced Practice Provider I saw the patient, reviewed the history and relevant studies, and developed an assessment a nd plan. 20 y.o. F, early relapse classical Hodgkins, with atypical HUS, admit for autoBMT, d0= 12 , complicate by MRSA - nausea improving - no fever - anc 0.77 Likely d/c tomorrow D/c appts arrranged BMT/Hodgkins - stg 2 bulky, s/p pediatric A(B)VE-PC x4 to CR, then IFRT 21 Gy - early relapse in radiation field, Bx+, s/p GDP x3 to CR2 - plan brentuximab maintenance post-BMT # BEAM prep - cd34 dose: 7.3 Atypical HUS - ecalizumab 1200 mg q2wks, last 07/26 --- plan for next wk as OUTpt - ordered in supportive plan per Dr Michael - monitor LDH, haptoglobin, complement activity - genetic testing PEND DVTs - hx multiple clots - LMWH prophylaxis - keep Plts >20k - restart apixaban when Plts recover >50k MRSA bacteremia with neutropenic fever - BCx 07/30 ngtd - s/p PORT & GOODMAN removal 07/30 - cefepime 07/28- - vanco 07/29- /// continue vanco until 08/16 (2 wks after last fever) Hx C diff - s/p po vanco suppression while on broad spectrum abx Social - d/c to local hotel - housing reimbursement through insurance See CLAUDINE documentation from today for details 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 I called [facility] to let them know she may discharge tomorrow. I asked them to bill the Patient Assistanc e Fund for the first 6 nights. Notified patient by phone to her room. Mel SALDIVAR [facility] [id number] Mailcode: [id number] [place] [address] [phone] signed by Mel Saldivar at 08/06/2016 11:38 AM Constantin Abernathy M D,PhD - 08/05/2016 5:07 PM PSTHeme Malignancies/BMT I rounded today in conjunction with the Advanced Practice Provider I saw the patient, reviewed the history and relevant studies, and developed an assessment a nd plan. 20 y.o. F, early relapse classical Hodgkins, with atypical HUS, admit for autoBMT, d0= 07/21 , complicate by MRSA - feeling better but still nauseated - NO fever - anc 0.57 Stop cefepime Stop po vanco Goal for d/c Tuesday 08/07, pending PO intake technical writing lead/mgr setting up home iv abx Arrange d/c appts BMT/Hodgkins - stg 2 bulky, s/p pediatric A(B)VE-PC x4 to CR, then IFRT 21 Gy - early relapse in radiation field, Bx+, s/p GDP x3 to CR2 - plan brentuximab maintenance post-BMT # BEAM prep - cd34 dose: 7.3 Atypical HUS - ecalizumab 1200 mg q2wks, last 07/26 --- plan for next wk as OUTpt - ordered in supportive plan per Dr Michael - monitor LDH, haptoglobin, complement activity - genetic testing PEND DVTs - hx multiple clots - LMWH prophylaxis - keep Plts >20k - restart apixaban when Plts recover >50k MRSA bacteremia with neutropenic fever - BCx 07/30 ngtd - s/p PORT & GOODMAN removal 07/30 - cefepime 07/28- - vanco 07/29- /// continue vanco until 08/16 (2 wks after last fever) Hx C diff - s/p po vanco suppression while on broad spectrum abx Social - d/c to local hotel - housing reimbursement through insurance See CLAUDINE documentation from today for details 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) Active Problems: HUS (hemolytic uremic syndrome), atypical (HCC) Hx of Clostridium difficile infection Chronic deep vein thrombosis (DVT) (HCC) Obesity, Class I, BMI 30-34.9 Immunosuppressed due to chemotherapy (HCC) Chemotherapy induced nausea and vomiting Autologous bone marrow transplantation status (HCC) MRSA bacteremia Neutropenic fever (HCC) Mucositis due to chemotherapy Pancytopenia due to chemotherapy (HCC) Constantin Link MD PhD ohamvirgen, Fany Farias, FABRIC STRETCHER - 08/05/2016 4:25 PM PST Daily NPP Note - Auto Transplant [facility] Attending: Constantin Link MD [facility] Physician: Constantin Link MD PCP: Aashish Hilton MD Benign Hematology: Jim Michael MD ([facility]) Pediatric Heme/Onc: Anh Moreland MD ([place]) Nephrology: Raghav Miller MD ([place]) Date of Admission: 07/15/2016 Conditioning regimen: BEAM Date of transplant: 07/21/2016 Reason for admission: Planned BEAM-conditioned auto PBSCT for HL 24-Hr Events/Daily Plan: -Relapsed HL: Admitted for BEAM auto PBSCT, currently Day +16 -Pancytopenia d/t conditioning chemo: Keep plts >20K d/t anticoagulation, standard Hct tra nsfusion parameters. Started Norethindrone today for menses, mild bleed. -Neutropenic fevers (first 07/28) w/ +MRSA bacteremia (+07/28): CXR clear. Repeat cultures 07/29 positive MRSA. Removed PAC and Goodman on 07/30. ID following. -F/u BCx 07/30-08/01 NGTD/pending. -DC Cefepime given engraftment (07/28 -08/05) , continue Vancomycin for MRSA bact (07/29 - ) with goal trough 10-15. Follow Vanco level and Cr closely. Trough 08/03: 21.6. Pharmacy to follow and adjust dosing as needed. Plan for 2 week therapy from last fever (~08/15/16). DC P O Vanco prophylaxis (received ppx for h/o Cdiff , however pt is Cdiff neg this admission) Va nco IV set up on discharge. -TTE 07/30 negative for vegetations -new PICC placed 08/04. -Atypical HUS: Conts Eculizumab q 2 weeks, last dose 07/26. Plan to administer next dose as outpatient next week. Monitor for hemolysis flare. Monitor LDH, hapto, complement activity qMon, Thurs. -RLE DVT (first noted 07/04/15, persists on 07/16 doppler in R axial calf): Continue prophyl actic Lovenox QPM and keep plts >20K. -Mucositis: Grade 2 at worst with moderate pain, no ulceration: Received Dilaudid DIE CUTTING MACHINE OPERATOR (07/15 3-08/04). Continue prn oxycodone. -Nutrition: Taken 900 ml in PO fluids & 10-20% of snacks. Encouraged nutritional supplement s. -FVO: Remains off MIVF 2/ FVO. Diurese prn. -[place]: continue scheduled Zofran and Zyprexa. Ativan/haldol PRN. -Lytes: Standard electrolyte replacement. K & phos repleted today. -DC dispo: Plan to discharge in 1-2 days with improvement in PO intake. Subjective: Mouth pain improving, PO intake remains low. Has mild nausea, controlled on prn antiemetics. Denies vomiting/abdl pain/diarrhea. Objective: Last Vitals: BP 139/84 | Pulse 90 | Temp 37 C (98.6 F) | RR 16 | Ht 1.755 m (5' 9.09") | Wt 96.5 kg (212 lb 11.9 oz) | SpO2 98% | BMI 31.33 kg/(m^2) 24 Hour Vital Min/Max: Systolic (24hrs), Av , Min:127 , Max:139 Diastolic (24hrs), Av, Min:68, Max:91 Pulse Min: 90 Max: 103 Temp Min: 36.7 C (98.1 F) Max: 37.3 C (99.1 F) Resp Min: 16 Max: 18 SpO2 Min: 94 % Max: 98 % Intake/Output Summary (Last 24 hours) at 08/05/16 1625 Last data filed at 08/05/16 1543 Gross per 24 hour Intake 3005 ml Output 2575 ml Net 430 ml Physical Exam: General: This is a female in no acute distress, lying in bed. HEENT: PERRL. Sclerae anicteric. No erythema or exudates. Skin: No rash, lesions noted. Acneform rash on face. Chest: Lungs clear to auscultation bilat, lightly diminished breath sounds. CV: RRR, no murmurs. Abdomen: S/NT/ND with NABS. No HSM appreciated. Extremities: Pulses strong and equal bilaterally. No c/c/BLE with mild non-pitting edema. Neuro: Alert and oriented x 3. Grossly nonfocal exam. CVC: Rt arm PICC c/d/i Recent Labs 08/03/16 0648 08/03/16 2345 08/04/16 2355 NA 142 143 143 K 3.2* 3.1* 3.4 CL 109* 109* 111* BICARB 23 24 22 BUN 6 4* 6 CR 0.60 0.65 0.60 GLU 91 85 85 CA 8.1* 7.9* 8.1* AST 7 10 10 ALT 11 12 13 AP 72 68 77 TBILI 0.4 0.3 0.4 TP 5.8* 5.6* 6.0* ALB 2.3* 2.5* 2.7* Recent Labs 08/03/16 0648 08/03/16 2345 08/04/16 2355 WBC 0.51* 0.55* 0.83* RBC 2.63* 2.57* 2.72* HB 7.9* 7.6* 8.1* HCT 23.2* 22.7* 24.0* PLT 10* 16* 20* NEUTROPERC 70.5* 69.1 68.7 LYMPHPERC 22.7 20.0 24.1 MONOPERC 4.5 10.9* 6.0 BASOPERC 0.0 0.0 0.0 EOSPERC 0.0* 0.0* 0.0* Meds: Reviewed on rounds, see current MAR for medication list Past Medical History: Meggan Otero is a 20 y.o. 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, admit for autoBMT Local oncologist: Aashish Hilton MD ([facility]) Benign Hematology: Jim Michael MD ([facility]) Pediatric Heme/Onc: Anh Moreland MD ([place]) Nephrology: Raghav Miller MD ([place]) 04/2015 presented with flank pain CT C/A/P: 11 cm anterior mediastinal mass, pleural effusion & L supraclav adenopathy Needle bx: classical hodgkins, nodular sclerosing type Thoracentesis: reactive/benign BMBx: neg PET: bulky mediastinal mass, SUV 16; bilateral neck SUV 15; also R>L pleural effusion 05/10/15 began ABVE-PC (as per pediatric [id number]) via femoral line 05/16/15 presented with sepsis [...] L neck: classical Hodgkins Above therapy in [place] -> moved to [place] Continued on ecalizumab per benign heme (Fernanda) - genetic testing for aHUS PENDING GDP x3 06/2017 CR by PET Goodman placed GCSF stem cell mobilization: 7.3 x10^6 cd34/kg Hospitalization History: Hematology/Onc: #Relapsed HL Conditioning regimen: BEAM -Carmustine 300 mg/m IV on day -6 -Etoposide 200 mg/m IV daily on days -5, -4,- 3, and -1 -Cytarabine 400 mg/m daily on days -5, -4,- 3, and -1 -Melphalan 140 mg/m IV on day -1 Stem cell transplant -Day: +16 -Tolerated autologous product on 07/21/16. 7.3x10^6 per kg CD 34+ cells Post-BMT Plan: -Plan for Brentuximab maintenance starting ~6 wks post-BMT back home which improves EFS in high risk pts post-auto. She meets high risk criteria due to early relapse. #Pancytopenia d/t chemo -Antimicrobials as below -See supportive care #Supportive Care: Growth Factor: Started daily Zarxio dosing on Day +5 (07/26) and will continue until ANC > 1500 x 2 consecutive days. Labs: Continue to check CBC with diff daily Transfusion parameters: -Transfuse PRBCs for HCT <21% if asymptomatic OR <24% if symptomatic -Transfuse PPH for platelet count <20K (anticoagulation) or sooner PRN s/s active bleeding HEENT: #Recent [place] Tooth Extractions (~2-[address] CROSSING GUARD): Nearly resolved -NS rinses PRN Pulmonary: Pretransplant PFTs completed on 06/25/16 (at [facility]) showed FEV1 of 86% pr edicted, FVC of 90% predicted and DLCO of 50% predicted. No acute issues Cardiovascular: Pretransplant MUGA completed on 06/24/16 (at [facility]) showed a LVEF of 5 5%. #RLE DVT (first noted 07/04/15, persists on 07/16 doppler in R axial calf): Apixaban ROAD CROSSING GUARD -STOPPED Apixiban 5 mg BID on admission -Received Tx-dose Lovenox until plts <50K (07/15-07/25) -Lovenox 40 mg qpm while thrombocytopenic w/ keeping plts >20K #Orthostatic HoTN (first noted 07/20): Sx improved with NS boluses but persistently Sx when getting OOB. -1L NS boluses PRN if asymptomatic GI: #GERD: Pepcid ROAD CROSSING GUARD -Prilosec 40 mg daily #Mucositis: pain without ulcerations, grade 2 -Continue oral care with normal saline rinses frequently -Liquid medications as able -Dilaudid DIE CUTTING MACHINE OPERATOR (07/27 -08/04). #[place]: ongoing, improved -Zofran IV/PO q 12 hrs -Zyprexa 10 mg qhs -Ativan, Haldol prn. : #Atypical HUS: Eculizumab ROAD CROSSING GUARD -Eculizumab q 2 weeks, next dose 08/09. Plan to administer as outpatient. -Monitor for hemolysis flare -Monitor LDH, hapto, complement activity qMon, Thurs #Menstrual suppression: Mild bleed -Norethindrone started 08/05 Neuro/Psych: #Depression/Anxiety: Lexapro ROAD CROSSING GUARD -Lexapro 10 mg daily -Ativan PRN Infectious Disease: #Neutropenic fevers (first 07/28) +MRSA bacteremia (+07/28): CXR clear. ID following -EGS removed PAC and Goodman in OR on 07/30. -Continue Cefepime (07/28- 08/05), d/t neutropenic fevers -Vancomycin (07/29- ) added with MRSA +BCx -F/u BCx 07/30-08/01 NGTD/negative. -TTE 07/30 negative for vegetations. #Hx C. Diff Colitis: not active, last checked 07/23 negative. -Flagyl prophy started on Day 0 (07/21-07/29) per Dr. Link -PO Vanco BID (07/29-08/05) initially switched from QID per ID d/t nausea, stopped 08/05 wi th count recovery & on stopping Cefepime. #Prophylaxis: Bacterial: As above Fungal: Fluconazole started day 0 and continues until Day +30 Viral: Valacyclovir started day +1; will switch to Acyclovir upon discharge and continue u ntil Day +365 PCP: starts around Day +30 to +40 ( Plan for Pentam as sulfa allergic), pending platelet c ounts >50K. PCP prophy to continue 6 mos post PBSCT Toxo: (06/17/16) Toxo neg. No further testing required Fluid/Nutrition/Lytes: #Nutrition: Regular diet, No Adriane's yogurt or Kefir #Fluid: overnight 1L as needed for PO intake <2L by 2200. #Lytes: Continue to check chemistries daily. Replace per supportive care protocol. Disposition: Pt with relapsed HL, adm for auto PBSCT. Anticipate 3-4 week hospitalization. MORENA Nieves [facility] [id number] Mailcode: [facility] [place] [address] [id number] signed by MORENA Ramos at 08/05/2016 6:45 PM Constantin Abernathy MD,PhD - 08/04/2016 4:36 PM PSTHeme Malignancies/BMT I rounded today in conjunction with the Advanced Practice Provider I saw the patient, reviewed the history and relevant studies, and developed an assessment a nd plan. 20 y.o. F, early relapse classical Hodgkins, with atypical HUS, admit for autoBMT, d0= 07/21 , complicate by MRSA - feeling a little better - NO fever - anc 0.38 ANC engrafting Wean off DIE CUTTING MACHINE OPERATOR BMT/Hodgkins - stg 2 bulky, s/p pediatric A(B)VE-PC x4 to CR, then IFRT 21 Gy - early relapse in radiation field, Bx+, s/p GDP x3 to CR2 - plan brentuximab maintenance post-BMT # BEAM prep - cd34 dose: 7.3 Atypical HUS - ecalizumab 1200 mg q2wks, last 07/26 --- plan for next wk as OUTpt - ordered in supportive plan per Dr Michael - monitor LDH, haptoglobin, complement activity - genetic testing PEND DVTs - hx multiple clots - LMWH prophylaxis - keep Plts >20k - restart apixaban when Plts recover >50k MRSA bacteremia with neutropenic fever - BCx 07/30 ngtd - s/p PORT & GOODMAN removal 07/30 - cefepime 07/28- - vanco 07/29- /// continue vanco for 2 wks after last fever 08/02 Hx C diff - po vanco suppression while on cefepime Social - d/c to local hotel - housing reimbursement through insurance See CLAUDINE documentation from today for details 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) Active Problems: HUS (hemolytic uremic syndrome), atypical (HCC) Hx of Clostridium difficile infection Chronic deep vein thrombosis (DVT) (HCC) Obesity, Class I, BMI 30-34.9 Immunosuppressed due to chemotherapy (HCC) Chemotherapy induced nausea and vomiting Autologous bone marrow transplantation status (HCC) MRSA bacteremia Neutropenic fever (HCC) Mucositis due to chemotherapy Pancytopenia due to chemotherapy (HCC) Constantin Link MD PhD oFany camacho, FABRIC STRETCHER - 08/04/2016 3:09 PM PST Daily NPP Note - Auto Transplant [facility] Attending: Constantin Link MD [facility] Physician: Constantin Link MD PCP: Aashish Hilton MD Benign Hematology: Jim Michael MD ([facility]) Pediatric Heme/Onc: Anh Moreland MD ([place]) Nephrology: Raghav Miller MD ([place]) Date of Admission: 07/15/2016 Conditioning regimen: BEAM Date of transplant: 07/21/2016 Reason for admission: Planned BEAM-conditioned auto PBSCT for HL 24-Hr Events/Daily Plan: -Relapsed HL: Admitted for BEAM auto PBSCT, currently Day +15 -Pancytopenia d/t conditioning chemo: Keep plts >20K d/t anticoagulation, standard Hct tra nsfusion parameters.-Neutropenic fevers (first 07/28) w/ +MRSA bacteremia (+07/28): CXR anson r. Repeat cultures 07/29 positive MRSA. Removed PAC and Goodman on 07/30. ID following. -F/u BCx 07/30-08/01 NGTD/pending. -Continue Cefepime (07/28 - ) , Vancomycin (07/29 - ) with goal trough 10-15. Follow Vanco level and Cr closely. Trough 08/03: 21.6. Pharmacy to follow and adjust dosing as needed. Te ntative plan for 2 week therapy from line removal (~08/13). Will need outpatient vanco set u p on discharge. Dr. Hector to follow up on duration of therapy. -TTE done 07/30 negative for vegetations -new PICC placed 08/04. 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 Plan to administer as outpatien t. Monitor for hemolysis flare. Monitor LDH, hapto, complement activity qMon, Thurs. -RLE DVT (first noted 07/04/15, persists on 07/16 doppler in R axial calf): Continue prophyl actic Lovenox QPM and keep plts >20K. -Mucositis: Grade 2 at worst with moderate pain, no ulceration: Received Dilaudid DIE CUTTING MACHINE OPERATOR (07/15 3-08/04). Start prn oxycodone. -Nutrition: Taken 800 ml in PO fluids & 25-100% of snacks. Encouraged nutritional supplemen ts. -FVO: Remains off MIVF 2/ FVO. Diurese prn. -[place]: continue scheduled Zofran and Zyprexa. Ativan/haldol PRN. -Lytes: Standard electrolyte replacement. K repleted today. Subjective: Mouth pain mproving, PO intake remains low. Diarrhea improving. Has mild nausea , denies vomiting/abdl pain. Objective: Last Vitals: BP 144/91 | Pulse 90 | Temp 37.2 C (99 F) | RR 16 | Ht 1.755 m (5' 9.09") | Wt 99.5 kg (219 lb 5.7 oz) | SpO2 94% | BMI 32.31 kg/(m^2) 24 Hour Vital Min/Max: Systolic (24hrs), Av , Min:129 , Max:144 Diastolic (24hrs), Av, Min:80, Max:93 Pulse Min: 90 Max: 113 Temp Min: 36.7 C (98.1 F) Max: 37.5 C (99.5 F) Resp Min: 16 Max: 20 SpO2 Min: 94 % Max: 100 % Intake/Output Summary (Last 24 hours) at 08/04/16 1509 Last data filed at 08/04/16 1500 Gross per 24 hour Intake 2224 ml Output 4400 ml Net -2176 ml Physical Exam: General: This is a female in no acute distress, lying in bed. HEENT: PERRL. Sclerae anicteric. Mucosal ridging on buccal mucosa. Skin: No rash, lesions noted. Acneform rash on face. Chest: Lungs clear to auscultation bilat, lightly diminished breath sounds. CV: RRR, no murmurs. Abdomen: S/NT/ND with NABS. No HSM appreciated. Extremities: Pulses strong and equal bilaterally. No c/c/BLE with mild non-pitting edema. Neuro: Alert and oriented x 3. Grossly nonfocal exam. CVC: Rt arm PICC c/d/i Recent Labs 08/02/16 0410 08/03/16 0648 08/03/16 2345 NA 145 142 143 K 3.0* 3.2* 3.1* CL 110* 109* 109* BICARB 22 23 24 BUN 4* 6 4* CR 0.66 0.60 0.65 GLU 88 91 85 CA 8.0* 8.1* 7.9* AST 6 7 10 ALT 13 11 12 AP 68 72 68 TBILI 0.4 0.4 0.3 TP 5.5* 5.8* 5.6* ALB 2.5* 2.3* 2.5* Recent Labs 08/02/16 0410 08/03/16 0648 08/03/16 2345 WBC 0.31* 0.51* 0.55* RBC 2.72* 2.63* 2.57* HB 8.1* 7.9* 7.6* HCT 23.7* 23.2* 22.7* PLT 22* 10* 16* NEUTROPERC 50.0 70.5* 69.1 LYMPHPERC 42.3* 22.7 20.0 MONOPERC 7.7 4.5 10.9* BASOPERC 0.0 0.0 0.0 EOSPERC 0.0* 0.0* 0.0* Meds: Reviewed on rounds, see current MAR for medication list Past Medical History: Meggan Otero is a 20 y.o. 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, admit for autoBMT Local oncologist: Aashish Hilton MD ([facility]) Benign Hematology: Jim Michael MD ([facility]) Pediatric Heme/Onc: Anh Moreland MD ([place]) Nephrology: Raghav Miller MD ([place]) 04/2015 presented with flank pain CT C/A/P: 11 cm anterior mediastinal mass, pleural effusion & L supraclav adenopathy Needle bx: classical hodgkins, nodular sclerosing type Thoracentesis: reactive/benign BMBx: neg PET: bulky mediastinal mass, SUV 16; bilateral neck SUV 15; also R>L pleural effusion 05/10/15 began ABVE-PC (as per pediatric [id number]) via femoral line 05/16/15 presented with sepsis [...] L neck: classical Hodgkins Above therapy in [place] -> moved to [place] Continued on ecalizumab per benign heme (Fernanda) - genetic testing for aHUS PENDING GDP x3 06/2017 CR by PET Goodman placed GCSF stem cell mobilization: 7.3 x10^6 cd34/kg Hospitalization History: Hematology/Onc: #Relapsed HL Conditioning regimen: BEAM -Carmustine 300 mg/m IV on day -6 -Etoposide 200 mg/m IV daily on days -5, -4,- 3, and -1 -Cytarabine 400 mg/m daily on days -5, -4,- 3, and -1 -Melphalan 140 mg/m IV on day -1 Stem cell transplant -Day: +15 -Tolerated autologous product on 07/21/16. 7.3x10^6 per kg CD 34+ cells Post-BMT Plan: -Plan for Brentuximab maintenance starting ~6 wks post-BMT back home which improves EFS in high risk pts post-auto. She meets high risk criteria due to early relapse. #Pancytopenia d/t chemo -Antimicrobials as below -See supportive care #Supportive Care: Growth Factor: Started daily Zarxio dosing on Day +5 (07/26) and will continue until ANC > 1500 x 2 consecutive days. Labs: Continue to check CBC with diff daily Transfusion parameters: -Transfuse PRBCs for HCT <21% if asymptomatic OR <24% if symptomatic -Transfuse PPH for platelet count <20K (anticoagulation) or sooner PRN s/s active bleeding HEENT: #Recent [place] Tooth Extractions (~2-[address] CROSSING GUARD): Nearly resolved -NS rinses PRN Pulmonary: Pretransplant PFTs completed on 06/25/16 (at [facility]) showed FEV1 of 86% pr edicted, FVC of 90% predicted and DLCO of 50% predicted. No acute issues Cardiovascular: Pretransplant MUGA completed on 06/24/16 (at [facility]) showed a LVEF of 5 5%. #RLE DVT (first noted 07/04/15, persists on 07/16 doppler in R axial calf): Apixaban ROAD CROSSING GUARD -STOPPED Apixiban 5 mg BID on admission -Received Tx-dose Lovenox until plts <50K (07/15-07/25) -Lovenox 40 mg qpm while thrombocytopenic w/ keeping plts >20K #Orthostatic HoTN (first noted 07/20): Sx improved with NS boluses but persistently Sx when getting OOB. -1L NS boluses PRN if asymptomatic GI: #GERD: Pepcid ROAD CROSSING GUARD -Prilosec 40 mg daily #Mucositis: pain without ulcerations, grade 2 -Continue oral care with normal saline rinses frequently -Liquid medications as able -Transition to IV meds if worsening PO intake -Dilaudid DIE CUTTING MACHINE OPERATOR (07/27 -08/04). #[place]: ongoing, improved -Zofran IV/PO q 12 hrs -Zyprexa 10 mg qhs -Ativan, Haldol prn. Renal: #Atypical HUS: Eculizumab ROAD CROSSING GUARD -Eculizumab q 2 weeks, next dose 08/09. Plan to administer as outpatient. -Monitor for hemolysis flare -Monitor LDH, hapto, complement activity qMon, Thurs Neuro/Psych: #Depression/Anxiety: Lexapro ROAD CROSSING GUARD -Lexapro 10 mg daily -Ativan PRN Infectious Disease: #Neutropenic fevers (first 07/28) +MRSA bacteremia (+07/28): CXR clear. ID following -EGS removed PAC and Goodman in OR on 07/30. -Continue Cefepime (07/28- ), d/t neutropenic fevers -Vancomycin (07/29- ) added with MRSA +BCx -F/u BCx 07/30-08/01 NGTD/negative. -TTE 07/30 negative for vegetations. #Hx C. Diff Colitis: not active, last checked 07/23 negative. -Flagyl prophy started on Day 0 (07/21-07/29) per Dr. Link -PO Vanco BID (07/29- ) switched from QID per ID d/t nausea #Prophylaxis: Bacterial: As above Fungal: Fluconazole started day 0 and continues until Day +30 Viral: Valacyclovir started day +1; will switch to Acyclovir upon discharge and continue u ntil Day +365 PCP: starts around Day +30 to +40 ( Plan for Pentam as sulfa allergic), pending platelet c ounts >50K. PCP prophy to continue 6 mos post PBSCT Toxo: (06/17/16) Toxo neg. No further testing required Fluid/Nutrition/Lytes: #Nutrition: Regular diet, No Adriane's yogurt or Kefir #Fluid: overnight 1L as needed for PO intake <2L by 2200. #Lytes: Continue to check chemistries daily. Replace per supportive care protocol. Disposition: Pt with relapsed HL, adm for auto PBSCT. Anticipate 3-4 week hospitalization. MORENA Nieves [facility] [id number] Mailcode: [id number] [place] [address] [id number] signed by MORENA Ramos at 08/04/2016 3:23 PM PSTMoha Fany chapman FNP - 08/03/2016 6:07 PM PSTFormatting of this note might be different fro m the original. Daily NPP Note - Auto Transplant [facility] Attending: Constantin Link MD [facility] Physician: Constantin Link MD PCP: Aashish Hilton MD Benign Hematology: Jim Michael MD ([facility]) Pediatric Heme/Onc: Anh Moreland MD ([place]) Nephrology: Raghav Miller MD ([place]) Date of Admission: 07/15/2016 Conditioning regimen: BEAM Date of transplant: 07/21/2016 Reason for admission: Planned BEAM-conditioned auto PBSCT for HL 24-Hr Events/Daily Plan: -Relapsed HL: Admitted for BEAM auto PBSCT, currently Day +14 -Pancytopenia d/t conditioning chemo: Keep plts >20K d/t anticoagulation, standard Hct tra nsfusion parameters.-Neutropenic fevers (first 07/28) w/ +MRSA bacteremia (+07/28): CXR anson r. Repeat cultures 07/29 positive MRSA. Removed PAC and Goodman on 07/30. ID following. -F/u BCx 07/30-08/01 NGTD/pending. -Continue Cefepime (07/28 - ) , Vancomycin (07/29 - ) with goal trough 10-15. Follow Vanco level and Cr closely. Trough 08/03: .6. Pharmacy to follow and adjust dosing as needed. T entative plan for 2 week therapy from line removal (~08/13). Will need outpatient vanco set up on discharge. Dr. Hector to follow up on duration of therapy. -TTE done 07/30 negative for vegetations -new PICC placed today. 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 Monitor for hemolysis flare. Mo nitor LDH, hapto, complement activity qMon, Thurs. -RLE DVT (first noted 07/04/15, persists on 07/16 doppler in R axial calf): Continue prophyl actic Lovenox QPM and keep plts >20K. -Mucositis Grade 2 at worst with moderate pain, no ulceration: continue Dilaudid DIE CUTTING MACHINE OPERATOR (07/27 - ). -FVO: Remains off MIVF 09/16 FVO. Diurese prn. -[place]: continue scheduled Zofran and Zyprexa. Ativan/haldol PRN. -Lytes: Standard electrolyte replacement. K & phos repleted. Subjective: Has ongoing mouth pain, controlled on DIE CUTTING MACHINE OPERATOR. Diarrhea improved compared to yeste rday. Denies N/V/abdl pain. Objective: Last Vitals: BP 141/88 | Pulse 107 | Temp 36.9 C (98.4 F) | RR 16 | Ht 1.755 m (5' 9.09 ") | Wt 100 kg (220 lb 7.4 oz) | SpO2 100% | BMI 32.47 kg/(m^2) 24 Hour Vital Min/Max: Systolic (24hrs), Av , Min:127 , Max:144 Diastolic (24hrs), Av, Min:60, Max:91 Pulse Min: 90 Max: 138 Temp Min: 36.6 C (97.9 F) Max: 38.1 C (100.6 F) Resp Min: 16 Max: 22 SpO2 Min: 91 % Max: 100 % Intake/Output Summary (Last 24 hours) at 08/03/16 1807 Last data filed at 08/03/16 1733 Gross per 24 hour Intake 2653 ml Output 4000 ml Net -1347 ml Physical Exam: General: This is a female in no acute distress, sitting up in bed. HEENT: PERRL. Sclerae anicteric. Mucosal ridging on bilat buccal mucosa and bilateral to ngue. Skin: No rash, lesions noted. Acneform rash on face. Chest: Lungs clear to auscultation bilat, lightly diminished breath sounds. CV: RRR, no murmurs. Abdomen: S/NT/ND with NABS. No HSM appreciated. Extremities: Pulses strong and equal bilaterally. No c/c/e. Neuro: Alert and oriented x 3. Grossly nonfocal exam. CVC: Rt arm PICC c/d/i Recent Labs 07/31/16 2349 08/02/16 0410 08/03/16 0648 NA 141 145 142 K 3.4 3.0* 3.2* CL 109* 110* 109* BICARB 23 22 23 BUN 5* 4* 6 CR 0.63 0.66 0.60 GLU 81 88 91 CA 7.6* 8.0* 8.1* AST 9 6 7 ALT 15 13 11 AP 67 68 72 TBILI 0.4 0.4 0.4 TP 5.4* 5.5* 5.8* ALB 2.4* 2.5* 2.3* Recent Labs 07/22/16 2335 07/31/16 2349 08/02/16 0410 08/03/16 0648 WBC 0.82* < > 0.15* 0.31* 0.51* RBC 2.53* < > 2.78* 2.72* 2.63* HB 7.7* < > 8.3* 8.1* 7.9* HCT 23.2* < > 24.1* 23.7* 23.2* PLT 90* < > 19* 22* 10* NEUTROPERC 83.2* -- -- 50.0 70.5* LYMPHPERC 16.8* -- -- 42.3* 22.7 MONOPERC 0.0* -- -- 7.7 4.5 BASOPERC 0.0 -- -- 0.0 0.0 EOSPERC 0.0* -- -- 0.0* 0.0* < > = values in this interval not displayed. Meds: Reviewed on rounds, see current MAR for medication list Past Medical History: Meggan Otero is a 20 y.o. 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, admit for autoBMT Local oncologist: Aahsish Hilton MD ([facility]) Benign Hematology: Jim Michael MD ([facility]) Pediatric Heme/Onc: Anh Moreland MD ([place]) Nephrology: Raghav Miller MD ([place]) 04/2015 presented with flank pain CT C/A/P: 11 cm anterior mediastinal mass, pleural effusion & L supraclav adenopathy Needle bx: classical hodgkins, nodular sclerosing type Thoracentesis: reactive/benign BMBx: neg PET: bulky mediastinal mass, SUV 16; bilateral neck SUV 15; also R>L pleural effusion 05/10/15 began ABVE-PC (as per pediatric [id number]) via femoral line 05/16/15 presented with sepsis [...] L neck: classical Hodgkins Above therapy in [place] -> moved to [place] Continued on ecalizumab per benign heme (Fernanda) - genetic testing for aHUS PENDING GDP x3 06/2017 CR by PET Goodman placed GCSF stem cell mobilization: 7.3 x10^6 cd34/kg Hospitalization History: Hematology/Onc: #Relapsed HL Conditioning regimen: BEAM -Carmustine 300 mg/m IV on day -6 -Etoposide 200 mg/m IV daily on days -5, -4,- 3, and -1 -Cytarabine 400 mg/m daily on days -5, -4,- 3, and -1 -Melphalan 140 mg/m IV on day -1 Stem cell transplant -Day: +14 -Tolerated autologous product on 07/21/16. 7.3x10^6 per kg CD 34+ cells Post-BMT Plan: -Plan for Brentuximab maintenance starting ~6 wks post-BMT back home which improves EFS in high risk pts post-auto. She meets high risk criteria due to early relapse. #Pancytopenia d/t chemo -Antimicrobials as below -See supportive care #Supportive Care: Growth Factor: Started daily Zarxio dosing on Day +5 (07/26) and will continue until ANC > 1500 x 2 consecutive days. Labs: Continue to check CBC with diff daily Transfusion parameters: -Transfuse PRBCs for HCT <21% if asymptomatic OR <24% if symptomatic -Transfuse PPH for platelet count <20K (anticoagulation) or sooner PRN s/s active bleeding HEENT: #Recent [place] Tooth Extractions (~2-[address] CROSSING GUARD): Nearly resolved -NS rinses PRN Pulmonary: Pretransplant PFTs completed on 06/25/16 (at [facility]) showed FEV1 of 86% pr edicted, FVC of 90% predicted and DLCO of 50% predicted. No acute issues Cardiovascular: Pretransplant MUGA completed on 06/24/16 (at [facility]) showed a LVEF of 5 5%. #RLE DVT (first noted 07/04/15, persists on 07/16 doppler in R axial calf): Apixaban ROAD CROSSING GUARD -STOPPED Apixiban 5 mg BID on admission -Received Tx-dose Lovenox until plts <50K (07/15-07/25) -Lovenox 40 mg qpm while thrombocytopenic w/ keeping plts >20K #Orthostatic HoTN (first noted 07/20): Sx improved with NS boluses but persistently Sx when getting OOB. -1L NS boluses PRN if asymptomatic GI: #GERD: Pepcid ROAD CROSSING GUARD -Prilosec 40 mg daily #Mucositis: pain without ulcerations, grade 2 -Continue oral care with normal saline rinses frequently -Liquid medications as able -Transition to IV meds if worsening PO intake -Dilaudid DIE CUTTING MACHINE OPERATOR initiated 07/27 #[place]: ongoing, improved -Zofran IV/PO q 12 hrs -Zyprexa 10 mg qhs -Ativan, Haldol, benadryl prn. Renal: #Atypical HUS: Eculizumab ROAD CROSSING GUARD -Eculizumab q 2 weeks, next dose 08/09 -Monitor for hemolysis flare -Monitor LDH, hapto, complement activity qMon, Thurs Neuro/Psych: #Depression/Anxiety: Lexapro ROAD CROSSING GUARD -Lexapro 10 mg daily -Ativan PRN Infectious Disease: #Neutropenic fevers (first 07/28) +MRSA bacteremia (+07/28): CXR clear. ID following -EGS removed PAC and Goodman in [place] on 07/30. -Continue Cefepime (07/28- ), d/t neutropenic fevers -Vancomycin (07/29- ) added with MRSA +BCx -F/u BCx 07/30-08/01 NGTD/negative. -TTE 07/30 negative for vegetations. #Hx C. Diff Colitis: not active, last checked 07/23 negative. -Flagyl prophy started on Day 0 (07/21-07/29) per Dr. Link -PO Vanco BID (07/29- ) switched from QID per ID d/t nausea #Prophylaxis: Bacterial: As above Fungal: Fluconazole started day 0 and continues until Day +30 Viral: Valacyclovir started day +1; will switch to Acyclovir upon discharge and continue u ntil Day +365 PCP: starts around Day +30 to +40 ( [id number] mg po daily as sulfa allergic), pending andrew telet counts >50K. PCP prophy to continue 6 mos post PBSCT Toxo: (06/17/16) Toxo neg. No further testing required Fluid/Nutrition/Lytes: #Nutrition: Regular diet, No Adriane's yogurt or Kefir #Fluid: overnight 1L as needed for PO intake <2L by 2200. #Lytes: Continue to check chemistries daily. Replace per supportive care protocol. Disposition: Pt with relapsed HL, adm for auto PBSCT. Anticipate 3-4 week hospitalization. MORENA Nieves [facility] [id number] Mailcode: [facility] [place] [address] [phone] signed by MORENA Ramos at 08/03/2016 6:25 PM CLARKChen Constantin MD,PhD - 08/03/2016 2:27 PM PSTHeme Malignancies/BMT I rounded today in conjunction with the Advanced Practice Provider I saw the patient, reviewed the history and relevant studies, and developed an assessment a nd plan. 20 y.o. F, early relapse classical Hodgkins, with atypical HUS, admit for autoBMT, d0= 07/21 , complicate by MRSA - feeling better - Tm 38.1, trending down - anc 0.36 ANC engrafting Replace picc today BMT/Hodgkins - stg 2 bulky, s/p pediatric A(B)VE-PC x4 to CR, then IFRT 21 Gy - early relapse in radiation field, Bx+, s/p GDP x3 to CR2 - plan brentuximab maintenance post-BMT # BEAM prep - cd34 dose: 7.3 Atypical HUS - ecalizumab 1200 mg q2wks, last 07/26 --- arrange for next wk as OUTpt - ordered in supportive plan per Dr Michael - monitor LDH, haptoglobin, complement activity - genetic testing PEND DVTs - hx multiple clots - LMWH prophylaxis - keep Plts >20k - restart apixaban when Plts recover MRSA bacteremia with neutropenic fever - BCx 07/30 ngtd - s/p PORT & GOODMAN removal 07/30 - cefepime 07/28- - vanco 07/29- /// continue vanco for 2 wks after last fever Hx C diff - po vanco suppression while on broad spectrum abx Social - will stay in local hotel - housing reimbursement through insurance See CLAUDINE documentation from today for details 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 Patient mother has insurance policy that will reimburse $60/night for up to 90 days. We have agreed to help offset some of the expenses that we will pay 6 nights in full using the Patient Ass istance Fund at [facility]. The patient will be responsible for the rest of t he stay and will get the reimbursement. Patient is aware to contact myself or Jenny if she has any issues going forward after the 6 days. Mel SALDIVAR [facility] [address] Mailcode: [id number] [place], [place] [id number] ashon Tristan PA - 08/02/2016 6:50 PM PST Daily NPP Note - Auto Transplant Ad[facility] Attending: Constantin Link MD [facility] Physician: Constantin Link MD PCP: Aashish Hilton MD Benign Hematology: Jim Michael MD ([facility]) Pediatric Heme/Onc: Anh Moreland MD ([place]) Nephrology: Raghav Miller MD ([place]) Date of Admission: 07/15/2016 Conditioning regimen: BEAM Date of transplant: 07/21/2016 Reason for admission: Planned BEAM-conditioned auto PBSCT for HL 24-Hr Events/Daily Plan: -Relapsed HL: Admitted for BEAM auto PBSCT, currently Day +13 -Pancytopenia d/t conditioning chemo: Keep plts >20K d/t anticoagulation, standard Hct tra nsfusion parameters.-Neutropenic fevers (first 07/28) w/ +MRSA bacteremia (+07/28): CXR anson r. Repeat cultures 07/29 positive MRSA. Removed PAC and Goodman on 07/30. -F/u BCx 07/30 NGTD, -07/31 and 08/01 pending. -Continue Cefepime (07/28) , Vancomycin (07/29) with goal trough 15-20. High dose vanco, f ollow level and Cr closely. Trough 07/31: 15.9. Pharmacy to continue to follow and adjust do sing as needed. Will need outpatient vanco set up on discharge. Dr. Hector to follow up o n duration of therapy. -ID following, appreciate assistance. -TTE done 07/30 negative for vegetations -plan to replace PICC tomorrow. 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 Monitor for hemolysis flare. Mo nitor LDH, hapto, complement activity qMon, Thurs. -RLE DVT (first noted 07/04/15, persists on 07/16 doppler in R axial calf): Continue prophyl actic Lovenox QPM and keep plts >20K. -Mucositis Grade 2 at worst with moderate pain, no ulceration: continue Dilaudid DIE CUTTING MACHINE OPERATOR starte d 07/27 for now. MIVF stopped today. -FVO: stop MIVF today and give lasix 20mg IV x 1. -[place]: continue cheduled Zofran and Zyprexa. Stopped scheduled benadryl today. Ativan PRN. -Lytes: Standard electrolyte replacement orders. Subjective: Mouth still sore. Still having diarrhea. Objective: Last Vitals: BP 133/77 | Pulse 108 | Temp 37 C (98.6 F) | RR 20 | Ht 1.755 m (5' 9.09") | Wt 102 kg (224 lb 13.9 oz) | SpO2 95% | BMI 33.12 kg/(m^2) 24 Hour Vital Min/Max: Systolic (24hrs), Av , Min:122 , Max:152 Diastolic (24hrs), Av, Min:72, Max:99 Pulse Min: 108 Max: 127 Temp Min: 36.6 C (97.9 F) Max: 38.4 C (101.1 F) Resp Min: 18 Max: 22 SpO2 Min: 86 % Max: 95 % Intake/Output Summary (Last 24 hours) at 08/02/16 1850 Last data filed at 08/02/16 1800 Gross per 24 hour Intake 3027 ml Output 7000 ml Net -3973 ml Physical Exam: General: This is a female in no acute distress, laying in bed, appears uncomfort able. HEENT: PERRL. Sclerae anicteric. Mucosal ridging on right buccal mucosa and bilateral to ngue. Skin: No rash, lesions noted. Acneform rash on face. Chest: Lungs clear to auscultation bilat. CV: RRR, no murmurs. Abdomen: S/NT/ND with NABS. No HSM appreciated. Extremities: Pulses strong and equal bilaterally. No c/c/e. Neuro: Alert and oriented x 3. Grossly nonfocal exam. CVC: None, PIV only. Recent Labs 07/30/16 2348 07/31/16 2349 08/02/16 0410 NA 142 141 145 K 3.2* 3.4 3.0* CL 111* 109* 110* BICARB 20* 23 22 BUN 6 5* 4* CR 0.71 0.63 0.66 GLU 99 81 88 CA 7.6* 7.6* 8.0* AST 13 9 6 ALT 17 15 13 AP 63 67 68 TBILI 0.2* 0.4 0.4 TP 5.0* 5.4* 5.5* ALB 2.3* 2.4* 2.5* Recent Labs 07/21/16 2314 07/22/16 2335 07/30/16 2348 07/31/16 2349 08/02/16 0410 WBC 7.90 0.82* < > <0.10* 0.15* 0.31* RBC 2.54* 2.53* < > 2.27* 2.78* 2.72* HB 7.7* 7.7* < > 6.6* 8.3* 8.1* HCT 22.7* 23.2* < > 20.1* 24.1* 23.7* PLT 125* 90* < > 31* 19* 22* NEUTROPERC 98.3* 83.2* -- -- -- 50.0 LYMPHPERC 0.8* 16.8* -- -- -- 42.3* MONOPERC 0.0* 0.0* -- -- -- 7.7 BASOPERC 0.1 0.0 -- -- -- 0.0 EOSPERC 0.0* 0.0* -- -- -- 0.0* < > = values in this interval not displayed. Meds: Reviewed on rounds, see current MAR for medication list Past Medical History: Meggan Otero is a 20 y.o. 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, admit for autoBMT Local oncologist: Aashish Hilton MD ([facility]) Benign Hematology: Jim Michael MD ([facility]) Pediatric Heme/Onc: Anh Moreland MD ([place]) Nephrology: Raghav Miller MD ([place]) 04/2015 presented with flank pain CT C/A/P: 11 cm anterior mediastinal mass, pleural effusion & L supraclav adenopathy Needle bx: classical hodgkins, nodular sclerosing type Thoracentesis: reactive/benign BMBx: neg PET: bulky mediastinal mass, SUV 16; bilateral neck SUV 15; also R>L pleural effusion 05/10/15 began ABVE-PC (as per pediatric [id number]) via femoral line 05/16/15 presented with sepsis [...] L neck: classical Hodgkins Above therapy in [place] -> moved to [place] Continued on ecalizumab per benign heme (Fernanda) - genetic testing for aHUS PENDING GDP x3 06/2017 CR by PET Goodman placed GCSF stem cell mobilization: 7.3 x10^6 cd34/kg Hospitalization History: Hematology/Onc: #Relapsed HL Conditioning regimen: BEAM -Carmustine 300 mg/m IV on day -6 -Etoposide 200 mg/m IV daily on days -5, -4,- 3, and -1 -Cytarabine 400 mg/m daily on days -5, -4,- 3, and -1 -Melphalan 140 mg/m IV on day -1 Stem cell transplant -Day: +13 -Tolerated autologous product on 07/21/16. 7.3x10^6 per kg CD 34+ cells Post-BMT Plan: -Plan for Brentuximab maintenance starting ~6 wks post-BMT back home which improves EFS in high risk pts post-auto. She meets high risk criteria due to early relapse. #Pancytopenia d/t chemo -Antimicrobials as below -See supportive care #Supportive Care: Growth Factor: Started daily Zarxio dosing on Day +5 (07/26) and will continue until ANC > 1500 x 2 consecutive days. Labs: Continue to check CBC with diff daily Transfusion parameters: -Transfuse PRBCs for HCT <21% if asymptomatic OR <24% if symptomatic -Transfuse PPH for platelet count <20K (anticoagulation) or sooner PRN s/s active bleeding HEENT: #Recent [place] Tooth Extractions (~2-[address] CROSSING GUARD): Nearly resolved -NS rinses PRN Pulmonary: Pretransplant PFTs completed on 06/25/16 (at [facility]) showed FEV1 of 86% pr edicted, FVC of 90% predicted and DLCO of 50% predicted. No acute issues Cardiovascular: Pretransplant MUGA completed on 06/24/16 (at [facility]) showed a LVEF of 5 5%. #RLE DVT (first noted 07/04/15, persists on 07/16 doppler in R axial calf): Apixaban ROAD CROSSING GUARD -STOPPED Apixiban 5 mg BID on admission -Received Tx-dose Lovenox until plts <50K (07/15-07/25) -Lovenox 40 mg qpm while thrombocytopenic w/ keeping plts >20K #Orthostatic HoTN (first noted 07/20): Sx improved with NS boluses but persistently Sx when getting OOB. -1L NS boluses PRN if asymptomatic GI: #GERD: Pepcid ROAD CROSSING GUARD -Prilosec 40 mg daily #Mucositis: pain without ulcerations, grade 2 -Continue oral care with normal saline rinses frequently -Liquid medications as able -Transition to IV meds if worsening PO intake -Dilaudid DIE CUTTING MACHINE OPERATOR initiated 07/27 -MIVF as below #[place]: ongoing, improved -Zofran IV/PO q 12 hrs -Zyprexa 10 mg qhs -Ativan, Haldol, benadryl prn. Renal: #Atypical HUS: Eculizumab ROAD CROSSING GUARD -Eculizumab q 2 weeks, next dose 08/09 -Monitor for hemolysis flare -Monitor LDH, hapto, complement activity qMon, Thurs Neuro/Psych: #Depression/Anxiety: Lexapro ROAD CROSSING GUARD -Lexapro 10 mg daily -Ativan PRN Infectious Disease: #Neutropenic fevers (first 07/28) +MRSA bacteremia (+07/28): CXR clear. ID following -EGS removed PAC and Goodman in [place] on 07/30. -Continue Cefepime (07/28), d/t neutropenic fevers -Vancomycin (07/29) added with MRSA +BCx -F/u BCx 07/30 NGTD, -07/31 and 08/01 pending. -TTE 07/30 negative for vegetations. #Hx C. Diff Colitis: not active, last checked 07/23 negative. -Flagyl prophy started on Day 0 (07/21-07/29) per Dr. Link -PO Vanco BID (07/29- ) switched from QID per ID d/t nausea #Prophylaxis: Bacterial: As above Fungal: Fluconazole started day 0 and continues until Day +30 Viral: Valacyclovir started day +1; will switch to Acyclovir upon discharge and continue u ntil Day +365 PCP: Bactrim day of admission through day -1, then restarts around Day +30 to +40 (or Daps [id number] mg po daily if sulfa allergic), pending platelet counts >50K. PCP prophy to continue 6 mos post PBSCT Toxo: (06/17/16) Toxo neg. No further testing required Fluid/Nutrition/Lytes: #Nutrition: Regular diet, No Adriane's yogurt or Kefir #Fluid: overnight 1L as needed for PO intake <2L by 2200. #Lytes: Continue to check chemistries daily. Replace per supportive care protocol. Disposition: Pt with relapsed HL, adm for auto PBSCT. Anticipate 3-4 week hospitalization. [facility] [address] [place] [address] Mailcode: [id number] [place] [phone] henConstantin MD,PhD - 08/02/2016 4:07 PM PSTHeme Malignancies/BMT I rounded today in conjunction with the Advanced Practice Provider I saw the patient, reviewed the history and relevant studies, and developed an assessment a nd plan. 20 y.o. F, early relapse classical Hodgkins, with atypical HUS, admit for autoBMT, d0= 07/21 , complicate by MRSA - feeling better - Tm 38.2, trending down - wbc 0.3 Starting to engraft Replace PICC BMT/Hodgkins - stg 2 bulky, s/p pediatric A(B)VE-PC x4 to CR, then IFRT 21 Gy - early relapse in radiation field, Bx+, s/p GDP x3 to CR2 - plan brentuximab maintenance post-BMT # BEAM prep - cd34 dose: 7.3 Atypical HUS - ecalizumab 1200 mg q2wks, last 07/26, next due 08/09 - ordered in supportive plan per Dr Michael - monitor for flare of hemolysis: LDH, haptoglobin, complement activity - genetic testing PEND - consider stop ecalizumab after recover BMT DVTs - hx multiple clots - LMWH prophylaxis - keep Plts >20k - restart apixaban when Plts recover MRSA bacteremia with neutropenic fever - BCx 07/30 ngtd - s/p PORT & GOODMAN removal 07/30 - cefepime 07/28- - vanco 07/29- Hx C diff - po vanco 07/29- - po flagyl admit - 07/29 Social - clarify discharge housing See CLAUDINE documentation from today for details 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) Active Problems: HUS (hemolytic uremic syndrome), atypical (HCC) Hx of Clostridium difficile infection Chronic deep vein thrombosis (DVT) (HCC) Obesity, Class I, BMI 30-34.9 Immunosuppressed due to chemotherapy (HCC) Chemotherapy induced nausea and vomiting Autologous bone marrow transplantation status (HCC) MRSA bacteremia Neutropenic fever (HCC) Mucositis due to chemotherapy Pancytopenia due to chemotherapy (HCC) Constantin Link MD PhD hen, Constantin Simons MD,PhD - 08/01/2016 5:53 PM PSTHeme Malignancies/BMT I rounded today in conjunction with the Advanced Practice Provider I saw the patient, reviewed the history and relevant studies, and developed an assessment a nd plan. 20 y.o. F, early relapse classical Hodgkins, with atypical HUS, admit for autoBMT, d0= 07/21 , complicate by MRSA - feeling a little better - Tm 38.5, but fever curve trending down - wbc 0.15 Possibly start of engraftment Replace access tomorrow if afebrile & Cxs stay neg BMT/Hodgkins - stg 2 bulky, s/p pediatric A(B)VE-PC x4 to CR, then IFRT 21 Gy - early relapse in radiation field, Bx+, s/p GDP x3 to CR2 - plan brentuximab maintenance post-BMT # BEAM prep - cd34 dose: 7.3 Atypical HUS - ecalizumab 1200 mg q2wks, last 07/26, next due 08/09 - ordered in supportive plan per Dr Michael - monitor for flare of hemolysis: LDH, haptoglobin, complement activity - genetic testing PEND - consider stop ecalizumab after recover BMT DVTs - hx multiple clots - LMWH prophylaxis - keep Plts >20k - restart apixaban when Plts recover MRSA bacteremia with neutropenic fever - BCx 07/30 ngtd - s/p PORT & GOODMAN removal 07/30 - cefepime 07/28- - vanco 07/29- Hx C diff - po vanco 07/29- - po flagyl admit - 07/29 See CLAUDINE documentation from today for details 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 Daily NPP Note - Auto Transplant [facility]mit [facility] Attending: Constantin Link MD [facility] Physician: Constantin Link MD PCP: Aashish Hilton MD Benign Hematology: Jim Michael MD ([facility]) Pediatric Heme/Onc: Anh Moreland MD ([place]) Nephrology: Raghav Miller MD ([place]) Date of Admission: 07/15/2016 Conditioning regimen: BEAM Date of transplant: 07/21/2016 Reason for admission: Planned BEAM-conditioned auto PBSCT for HL 24-Hr Events/Daily Plan: -Relapsed HL: Admitted for BEAM auto PBSCT, currently Day +12 -Pancytopenia d/t conditioning chemo: Keep plts >20K d/t anticoagulation, standard Hct tra nsfusion parameters.-Neutropenic fevers (first 07/28) w/ +MRSA bacteremia (+07/28): CXR anson r. Repeat cultures 07/29 positive MRSA. Removed PAC and Goodman on 07/30. -F/u BCx 07/30 NGTD, -07/31 pending. -Continue Cefepime (07/28) , Vancomycin (07/29) with goal trough 15-20. High dose vanco, f ollow level and Cr closely. Trough 07/31: 15.9. Pharmacy to continue to follow and adjust do sing as needed. -ID following, appreciate assistance. -TTE done 07/30 negative for vegetations -Atypical HUS: Conts Eculizumab q 2 weeks, next dose 08/09. Monitor for hemolysis flare. Mo nitor LDH, hapto, complement activity qMon, Thurs. -RLE DVT (first noted 07/04/15, persists on 07/16 doppler in R axial calf): Continue prophyl actic Lovenox QPM and keep plts >20K. -Mucositis Grade 2 at worst with moderate pain, no ulceration: continue Dilaudid DIE CUTTING MACHINE OPERATOR starte d 07/27 for now. MIVF at 75cc/hr. -[place]: continue cheduled Zofran and Zyprexa. Stop scheduled benadryl today. Ativan PRN. -Lytes: Standard electrolyte replacement orders. Subjective: Feeling better today. More awake. Still having nausea and mouth pain. Objective: Last Vitals: BP 144/93 | Pulse 113 | Temp 37.5 C (99.5 F) | RR 18 | Ht 1.755 m (5' 9.09 ") | Wt 104 kg (229 lb 4.5 oz) | SpO2 96% | BMI 33.77 kg/(m^2) 24 Hour Vital Min/Max: Systolic (24hrs), Av , Min:119 , Max:157 Diastolic (24hrs), Av, Min:68, Max:109 Pulse Min: 113 Max: 139 Temp Min: 36.6 C (97.9 F) Max: 38.5 C (101.3 F) Resp Min: 18 Max: 22 SpO2 Min: 87 % Max: 97 % Intake/Output Summary (Last 24 hours) at 08/01/16 1143 Last data filed at 08/01/16 0800 Gross per 24 hour Intake 3784 ml Output 2800 ml Net 984 ml Physical Exam: General: This is a female in no acute distress, laying in bed, appears uncomfort able. HEENT: PERRL. Sclerae anicteric. Mucosal ridging on right buccal mucosa and bilateral to ngue. Skin: No rash, lesions noted. Acneform rash on face. Chest: Lungs clear to auscultation bilat. CV: RRR, no murmurs. Abdomen: S/NT/ND with NABS. No HSM appreciated. Extremities: Pulses strong and equal bilaterally. No c/c/e. Neuro: Alert and oriented x 3. Grossly nonfocal exam. CVC: None, PIV only. Recent Labs 07/30/16 0008 07/30/16 0907/30/16 23407/31/16 2349 NA 139 -- 142 141 K 3.3* -- 3.2* 3.4 CL 107 -- 111* 109* BICARB 22 -- 20* 23 BUN 4* -- 6 5* CR 0.69 -- 0.71 0.63 GLU 106* 82 99 81 CA 7.2* -- 7.6* 7.6* AST 9 -- 13 9 ALT -- 17 15 AP 61 -- 63 67 TBILI 0.3 -- 0.2* 0.4 TP 5.2* -- 5.0* 5.4* ALB 2.5* -- 2.3* 2.4* Recent Labs 07/20/16 2309 07/21/16 2314 07/22/16 2335 07/30/16 0008 07/30/16 0230 07/30/16 2348 07/31/16 2349 WBC 1.55* 7.90 0.82* < > <0.10* -- <0.10* 0.15* RBC 2.29* 2.54* 2.53* < > 2.18* -- 2.27* 2.78* HB 6.9* 7.7* 7.7* < > 6.6* -- 6.6* 8.3* HCT 20.8* 22.7* 23.2* < > 19.3* -- 20.1* 24.1* PLT 135* 125* 90* < > 39* 52* 31* 19* NEUTROPERC 97.5* 98.3* 83.2* -- -- -- -- -- LYMPHPERC 1.9* 0.8* 16.8* -- -- -- -- -- MONOPERC 0.0* 0.0* 0.0* -- -- -- -- -- BASOPERC 0.0 0.1 0.0 -- -- -- -- -- EOSPERC 0.0* 0.0* 0.0* -- -- -- -- -- < > = values in this interval not displayed. Meds: Reviewed on rounds, see current MAR for medication list Past Medical History: Meggan Otero is a 20 y.o. 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, admit for autoBMT Local oncologist: Aashish Hilton MD ([facility]) Benign Hematology: Jim Michael MD ([facility]) Pediatric Heme/Onc: Anh Moreland MD ([place]) Nephrology: Raghav Miller MD ([place]) 04/2015 presented with flank pain CT C/A/P: 11 cm anterior mediastinal mass, pleural effusion & L supraclav adenopathy Needle bx: classical hodgkins, nodular sclerosing type Thoracentesis: reactive/benign BMBx: neg PET: bulky mediastinal mass, SUV 16; bilateral neck SUV 15; also R>L pleural effusion 05/10/15 began ABVE-PC (as per pediatric [id number]) via femoral line 05/16/15 presented with sepsis [...] L neck: classical Hodgkins Above therapy in [place] -> moved to [place] Continued on ecalizumab per benign heme (Fernanda) - genetic testing for aHUS PENDING GDP x3 06/2017 CR by PET Goodman placed GCSF stem cell mobilization: 7.3 x10^6 cd34/kg Hospitalization History: Hematology/Onc: #Relapsed HL Conditioning regimen: BEAM -Carmustine 300 mg/m IV on day -6 -Etoposide 200 mg/m IV daily on days -5, -4,- 3, and -1 -Cytarabine 400 mg/m daily on days -5, -4,- 3, and -1 -Melphalan 140 mg/m IV on day -1 Stem cell transplant -Day: +12 -Tolerated autologous product on 07/21/16. 7.3x10^6 per kg CD 34+ cells Post-BMT Plan: -Plan for Brentuximab maintenance starting ~6 wks post-BMT back home which improves EFS in high risk pts post-auto. She meets high risk criteria due to early relapse. #Pancytopenia d/t chemo -Antimicrobials as below -See supportive care #Supportive Care: Growth Factor: Started daily Zarxio dosing on Day +5 (07/26) and will continue until ANC > 1500 x 2 consecutive days. Labs: Continue to check CBC with diff daily Transfusion parameters: -Transfuse PRBCs for HCT <21% if asymptomatic OR <24% if symptomatic -Transfuse PPH for platelet count <20K (anticoagulation) or sooner PRN s/s active bleeding HEENT: #Recent [place] Tooth Extractions (~2-[address] CROSSING GUARD): Nearly resolved -NS rinses PRN Pulmonary: Pretransplant PFTs completed on 06/25/16 (at [facility]) showed FEV1 of 86% pr edicted, FVC of 90% predicted and DLCO of 50% predicted. No acute issues Cardiovascular: Pretransplant MUGA completed on 06/24/16 (at [facility]) showed a LVEF of 5 5%. #RLE DVT (first noted 07/04/15, persists on 07/16 doppler in R axial calf): Apixaban ROAD CROSSING GUARD -STOPPED Apixiban 5 mg BID on admission -Received Tx-dose Lovenox until plts <50K (07/15-07/25) -Lovenox 40 mg qpm while thrombocytopenic w/ keeping plts >20K #Orthostatic HoTN (first noted 07/20): Sx improved with NS boluses but persistently Sx when getting OOB. -1L NS boluses PRN if asymptomatic GI: #GERD: Pepcid ROAD CROSSING GUARD -Prilosec 40 mg daily #Mucositis: pain without ulcerations, grade 2 -Continue oral care with normal saline rinses frequently -Liquid medications as able -Transition to IV meds if worsening PO intake -Dilaudid DIE CUTTING MACHINE OPERATOR initiated 07/27 -MIVF as below #[place]: ongoing, improved -Zofran IV/PO q 12 hrs -Zyprexa 10 mg qhs -Ativan, Haldol, benadryl prn. Renal: #Atypical HUS: Eculizumab ROAD CROSSING GUARD -Eculizumab q 2 weeks, next dose 08/09 -Monitor for hemolysis flare -Monitor LDH, hapto, complement activity qMon, Thurs Neuro/Psych: #Depression/Anxiety: Lexapro ROAD CROSSING GUARD -Lexapro 10 mg daily -Ativan PRN Infectious Disease: #Neutropenic fevers (first 07/28) +MRSA bacteremia (+07/28): CXR clear. ID following -EGS removed PAC and Goodman in [place] on 07/30. -Continue Cefepime (07/28), d/t neutropenic fevers -Vancomycin (07/29) added with MRSA +BCx -F/u BCx 07/30 NGTD, -07/31 pending. #Hx C. Diff Colitis: not active, last checked 07/23 negative. -Flagyl prophy started on Day 0 (07/21-07/29) per Dr. Link -PO Vanco BID (07/29- ) switched from QID per ID d/t nausea #Prophylaxis: Bacterial: As above Fungal: Fluconazole started day 0 and continues until Day +30 Viral: Valacyclovir started day +1; will switch to Acyclovir upon discharge and continue u ntil Day +365 PCP: Bactrim day of admission through day -1, then restarts around Day +30 to +40 (or Daps [id number] mg po daily if sulfa allergic), pending platelet counts >50K. PCP prophy to continue 6 mos post PBSCT Toxo: (06/17/16) Toxo neg. No further testing required Fluid/Nutrition/Lytes: #Nutrition: Regular diet, No Adriane's yogurt or Kefir #Fluid: NS @ 75 mL/hr d/t orthostatic HoTN/bacteremia #Lytes: Continue to check chemistries daily. Replace per supportive care protocol. Disposition: Pt with relapsed HL, adm for auto PBSCT. Anticipate 3-4 week hospitalization. LILLIANA [facility] Mailcode: [id number] [place] [id number] Miguel Sarkar MD - 08/01/2016 2:54 AM PST . SURGERY INPATIENT PROGRESS NOTE Date: 07/30/2016 Interval Hx/Subjective: Repeat CXR yesterday morning showed stable mediastinal density, felt to be a lymph node rat her than a hematoma Feels well, no complaints Physical Exam: Last Vitals: BP 130/74 | Pulse 124 | Temp 38.5 C (101.3 F) | RR 18 | Ht 1.755 m (5' 9.0 9") | Wt 104 kg (229 lb 4.5 oz) | SpO2 93% | BMI 33.77 kg/(m^2) O2 Delivery Device: Oxymask (08/01/16 0059) General: awake, alert, NAD Chest: 2 incisions with clean dressings in place, no chest or neck hematoma Respiratory: unlabored respirations on 2L oxymask Cardiovascular: sinus tachycardia, normotensive Gastrointestinal: soft, nontender, not distended Extremities: [facility] LABS: Chemistries Recent Labs 07/30/16 0008 07/30/16 2348 07/31/16 2349 NA 139 142 141 K 3.3* 3.2* 3.4 CL 107 111* 109* BICARB 22 20* 23 BUN 4* 6 5* CR 0.69 0.71 0.63 CA 7.2* 7.6* 7.6* MG 2.1 2.0 1.9 PO4 1.6* 1.6* 1.7* AST 9 13 9 ALT 12 17 15 AP 61 63 67 TBILI 0.3 0.2* 0.4 ALB 2.5* 2.3* 2.4* CBC with diff Recent Labs 07/30/16 0008 07/30/16 0230 07/30/16 2348 07/31/16 2349 WBC <0.10* -- <0.10* 0.15* HB 6.6* -- 6.6* 8.3* HCT 19.3* -- 20.1* 24.1* PLT 39* 52* 31* 19* Coag No components found for: INR, PTT, PT CBG's Recent Labs 07/30/16 0008 07/30/16 0923 07/30/16 2348 07/31/16 2349 GLU 106* 82 99 81 Assessment and Plan: Meggan Otero is a 20 y.o. female w/ relapsed hodgkin's lymphoma who was undergoing bone marrow transplant c/b neutropenic fevers and MRSA bacteremia s/p rem oval of right-sided Goodman catheter and port-a-cath 07/30. Recovering well post-operativel y. With concern for possible mediastinal hematoma, now thought more likely to represent a l ymph node. -EGS will sign off at this time. Please call with questions. -Dressings can be removed today -OK to shower Dr. Martinez is the attending of record for this patient care encounter Miguel Dooley MD General Surgery Resident, [id number] Lashon Puentes PA - 07/31/2016 4:44 PM PST . Daily NPP Note - Auto Transplant Ad[facility] Attending: Qamar Wang MD [facility] Physician: Constantin Link MD PCP: Aashish Hilton MD Benign Hematology: Jim Michael MD ([facility]) Pediatric Heme/Onc: Anh Moreland MD ([place]) Nephrology: Raghav Miller MD ([place]) Date of Admission: 07/15/2016 Conditioning regimen: BEAM Date of transplant: 07/21/2016 Reason for admission: Planned BEAM-conditioned auto PBSCT for HL 24-Hr Events/Daily Plan: -Relapsed HL: Admitted for BEAM auto PBSCT, currently Day +11 -Pancytopenia d/t conditioning chemo: Keep plts >20K d/t anticoagulation, standard Hct tra nsfusion parameters.-Neutropenic fevers (first 07/28) +MRSA bacteremia (+07/28): CXR clear. Repeat cultures 07/29 positive MRSA. Removed PAC and Goodman on 07/30. Blood cultures from 1 09/30 pending. To be drawn again tonight. -Continue Cefepime (07/28) , Vancomycin (07/29) with goal trough 15-20. High dose vanco, f ollow level and Cr closely. Trough to be drawn prior to tonight's dose; will pharmacy to f/u and adjust dosing as needed. ID following. -TTE done 07/30 report pending. 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 Monitor for hemolysis flare. Mo nitor LDH, hapto, complement activity qMon, Thurs. -RLE DVT (first noted 07/04/15, persists on 07/16 doppler in R axial calf): Continue prophyl actic Lovenox QPM and keep plts >20K. -Mucositis Grade 2, d/t moderate pain, no ulceration: On Dilaudid DIE CUTTING MACHINE OPERATOR 07/27, continue MIVF d/t decreased PO intake/orthostatic HoTN. -[place]: Mostly controlled with scheduled Benadryl, Zofran, and Zyprexa. Breakthrough controll ed with Ativan PRN -Lytes: Standard electrolyte replacement orders. Subjective: Feeling better overall but still having diarrhea and nausea, fatigued. Objective: Last Vitals: BP 157/109 | Pulse 117 | Temp 37.3 C (99.1 F) | RR 20 | Ht 1.755 m (5' 9.0 9") | Wt 104 kg (229 lb 4.5 oz) | SpO2 97% | BMI 33.77 kg/(m^2) 24 Hour Vital Min/Max: Systolic (24hrs), Av , Min:123 , Max:157 Diastolic (24hrs), Av, Min:68, Max:109 Pulse Min: 111 Max: 142 Temp Min: 36.6 C (97.9 F) Max: 39.4 C (102.9 F) Resp Min: 18 Max: 24 SpO2 Min: 84 % Max: 97 % Intake/Output Summary (Last 24 hours) at 07/31/16 1644 Last data filed at 07/31/16 1413 Gross per 24 hour Intake 2817 ml Output 2680 ml Net 137 ml Physical Exam: General: This is a female in no acute distress, laying in bed, appears uncomfort able. HEENT: PERRL. Sclerae anicteric. Mucosal ridging on right buccal mucosa and bilateral to ngue. Skin: No rash, lesions noted. Acneform rash on face. Chest: Lungs clear to auscultation bilat. CV: RRR, no murmurs. Abdomen: S/NT/ND with NABS. No HSM appreciated. Extremities: Pulses strong and equal bilaterally. No c/c/e. Neuro: Alert and oriented x 3. Grossly nonfocal exam. CVC: None, PIV only. Recent Labs 07/28/167 07/30/16 0008 07/30/16 0923 07/30/16 2348 NA 137 139 -- 142 K 4.0 3.3* -- 3.2* CL 103 107 -- 111* BICARB 25 22 -- 20* BUN 4* 4* -- 6 CR 0.69 0.69 -- 0.71 GLU 94 106* 82 99 CA 7.8* 7.2* -- 7.6* AST 5 9 -- 13 ALT 10 12 -- 17 AP 61 61 -- 63 TBILI 0.4 0.3 -- 0.2* TP 5.3* 5.2* -- 5.0* ALB 2.7* 2.5* -- 2.3* Recent Labs 07/20/16 2309 07/21/16 2314 07/22/16 2335 07/28/16 2327 07/30/16 0008 07/30/16 0230 07/30/16 2348 WBC 1.55* 7.90 0.82* < > <0.10* -- <0.10* -- <0.10* RBC 2.29* 2.54* 2.53* < > 2.41* -- 2.18* -- 2.27* HB 6.9* 7.7* 7.7* < > 7.4* -- 6.6* -- 6.6* HCT 20.8* 22.7* 23.2* < > 21.2* -- 19.3* -- 20.1* PLT 135* 125* 90* < > 13* < > 39* 52* 31* NEUTROPERC 97.5* 98.3* 83.2* -- -- -- -- -- -- LYMPHPERC 1.9* 0.8* 16.8* -- -- -- -- -- -- MONOPERC 0.0* 0.0* 0.0* -- -- -- -- -- -- BASOPERC 0.0 0.1 0.0 -- -- -- -- -- -- EOSPERC 0.0* 0.0* 0.0* -- -- -- -- -- -- < > = values in this interval not displayed. Meds: Reviewed on rounds, see current MAR for medication list Past Medical History: Meggan Otero is a 20 y.o. 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, admit for autoBMT Local oncologist: Aashish Hilton MD ([facility]) Benign Hematology: Jim Michael MD ([facility]) Pediatric Heme/Onc: Anh Moreland MD ([place]) Nephrology: Raghav Miller MD ([place]) 04/2015 presented with flank pain CT C/A/P: 11 cm anterior mediastinal mass, pleural effusion & L supraclav adenopathy Needle bx: classical hodgkins, nodular sclerosing type Thoracentesis: reactive/benign BMBx: neg PET: bulky mediastinal mass, SUV 16; bilateral neck SUV 15; also R>L pleural effusion 05/10/15 began ABVE-PC (as per pediatric [id number]) via femoral line 05/16/15 presented with sepsis [...] L neck: classical Hodgkins Above therapy in [place] -> moved to [place] Continued on ecalizumab per benign heme (Fernanda) - genetic testing for aHUS PENDING GDP x3 06/2017 CR by PET Goodman placed GCSF stem cell mobilization: 7.3 x10^6 cd34/kg Hospitalization History: Hematology/Onc: #Relapsed HL Conditioning regimen: BEAM -Carmustine 300 mg/m IV on day -6 -Etoposide 200 mg/m IV daily on days -5, -4,- 3, and -1 -Cytarabine 400 mg/m daily on days -5, -4,- 3, and -1 -Melphalan 140 mg/m IV on day -1 Stem cell transplant -Day: +11 -Tolerated autologous product on 07/21/16. 7.3x10^6 per kg CD 34+ cells Post-BMT Plan: -Plan for Brentuximab maintenance starting ~6 wks post-BMT back home which improves EFS in high risk pts post-auto. She meets high risk criteria due to early relapse. #Pancytopenia d/t chemo -Antimicrobials as below -See supportive care #Supportive Care: Growth Factor: Started daily Zarxio dosing on Day +5 (07/26) and will continue until ANC > 1500 x 2 consecutive days. Labs: Continue to check CBC with diff daily Transfusion parameters: -Transfuse PRBCs for HCT <21% if asymptomatic OR <24% if symptomatic -Transfuse PPH for platelet count <20K (anticoagulation) or sooner PRN s/s active bleeding HEENT: #Recent [place] Tooth Extractions (~2-[address] CR[address]ING GUARD): Nearly resolved -NS rinses PRN Pulmonary: Pretransplant PFTs completed on 06/25/16 (at [facility]) showed FEV1 of 86% pr edicted, FVC of 90% predicted and DLCO of 50% predicted. No acute issues Cardiovascular: Pretransplant MUGA completed on 06/24/16 (at [facility]) showed a LVEF of 5 5%. #RLE DVT (first noted 07/04/15, persists on 07/16 doppler in R axial calf): Apixaban ROAD CROSSING GUARD -STOPPED Apixiban 5 mg BID on admission -Received Tx-dose Lovenox until plts <50K (07/15-07/25) -Lovenox 40 mg qpm while thrombocytopenic w/ keeping plts >20K #Orthostatic HoTN (first noted 07/20): Sx improved with NS boluses but persistently Sx when getting OOB. -1L NS boluses PRN if asymptomatic GI: #GERD: Pepcid ROAD CROSSING GUARD -Prilosec 40 mg daily #Mucositis: pain without ulcerations, grade 2 -Continue oral care with normal saline rinses frequently -Liquid medications as able -Transition to IV meds if worsening PO intake -Dilaudid DIE CUTTING MACHINE OPERATOR initiated 07/27 -MIVF as below #[place]: ongoing, improved -Benadryl 25 mg PO q 6 hrs -Zofran IV/PO q 12 hrs -Zyprexa 10 mg qhs -Ativan, Haldol PRN Renal: #Atypical HUS: Ecalizumab ROAD CROSSING GUARD -Eculizumab q 2 weeks, next dose 08/09 -Monitor for hemolysis flare -Monitor LDH, hapto, complement activity qMon, Thurs Neuro/Psych: #Depression/Anxiety: Lexapro ROAD CROSSING GUARD -Lexapro 10 mg daily -Ativan PRN Infectious Disease: #Neutropenic fevers (first 07/28) +MRSA bacteremia (+07/28): CXR clear. ID following -EGS removed PAC and Goodman in [place] on 07/30. -Continue Cefepime (07/28), d/t neutropenic fevers -Vancomycin (07/29) added with MRSA +BCx -F/u BCx x3 days (07/29-07/31) still pending. #Hx C. Diff Colitis: not active, last checked 07/23 negative. -Flagyl prophy started on Day 0 (07/21-07/29) per Dr. Link -PO Vanco BID (07/29- ) switched from QID per ID d/t nausea #Prophylaxis: Bacterial: As above Fungal: Fluconazole started day 0 and continues until Day +30 Viral: Valacyclovir started day +1; will switch to Acyclovir upon discharge and continue u ntil Day +365 PCP: Bactrim day of admission through day -1, then restarts around Day +30 to +40 (or Daps [id number] mg po daily if sulfa allergic), pending platelet counts >50K. PCP prophy to continue 6 mos post PBSCT Toxo: (06/17/16) Toxo neg. No further testing required Fluid/Nutrition/Lytes: #Nutrition: Regular diet, No Adriane's yogurt or Kefir #Fluid: NS @ 100 mL/hr d/t orthostatic HoTN/bacteremia #Lytes: Continue to check chemistries daily. Replace per supportive care protocol. Disposition: Pt with relapsed HL, adm for auto PBSCT. Anticipate 3-4 week hospitalization. JASMIN [facility] [address] [place] [address] Mailcode: [id number] [facility] [place] [phone] henConstantin MD,PhD - 07/31/2016 3:30 PM PSTHeme Malignancies/BMT I rounded today in conjunction with the Advanced Practice Provider I saw the patient, reviewed the history and relevant studies, and developed an assessment a nd plan. 20 y.o. F, early relapse classical Hodgkins, with atypical HUS, admit for autoBMT, complica te by MRSA - PORT & GOODMAN removed yesterday - still febrile, Tm >39 - wbc 0.1 BMT/Hodgkins - stg 2 bulky, s/p pediatric A(B)VE-PC x4 to CR, then IFRT 21 Gy - early relapse in radiation field, Bx+, s/p GDP x3 to CR2 - plan brentuximab maintenance post-BMT # BEAM prep - cd34 dose: 7.3 Atypical HUS - ecalizumab 1200 mg q2wks, last 07/26, next due 08/09 - ordered in supportive plan per Dr Michael - monitor for flare of hemolysis: LDH, haptoglobin, complement activity - genetic testing PEND - consider stop ecalizumab after recover BMT DVTs - hx multiple clots - LMWH prophylaxis - keep Plts >20k - restart apixaban when Plts recover MRSA bacteremia with neutropenic fever - BCx 07/30 ngtd - s/p PORT & GOODMAN removal 07/30 - cefepime 07/28- - vanco 07/29- Hx C diff - po vanco 07/29- - po flagyl admit - 07/29 Access - replace line when BCxs clear >48 hr See CLAUDINE documentation from today for details 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 Otero. Chart reviewed & events noted. Still with intermittent fevers. Up to 39.1C earlier this morning. Streptococcus identified as S. salivarius. WBC < 0.1. Vancomycin dose increased to 1.75 grams IV q8 after trough of 7.6. Again requiring supplemental oxygen - on 2 LPM oxymask with sats in mid-90s. at bedside. Reports feeling about the same as yesterday. Endorses shortness of breath with exertion. No chest pain. No real cough - just throat clearing. Same watery stools. No abdominal pain. No back or joint pain. Current Medications: Current Facility-Administered Medications: acetaminophen (TYLENOL) or al suspension 325-650 mg, 325-650 mg, oral, Q4H PRN, Mary Pérez MD, 650 mg at 6 0416 acyclovir (ZOVIRAX) 500 mg in NaCl 0.9 % IV, 500 mg, intravenous, Q12H PRN, Constantin Link MD ,PhD alteplase (CATHFLO ACTIVASE) injection 2 mg, 2 mg, Intracatheter, PRN, Constantin Link MD,PhD aluminum-magnesium hydroxide-simethicone (MAALOX; MYLANTA) 200-200-20 mg/5 mL suspension 30 mL, 30 mL, oral, Q3H PRN, Constantni Link MD,PhD ceFEPime IV 2 grams in NS (MB+), 2 g, intravenous, Q8H, Qamar Wang MD, Stopped at 0435 diphenhydrAMINE (BENADRYL) oral solution 25 mg, 25 mg, oral, Q6H, Ignacio Decker PA-C,MPAS, 2 5 mg at 07/31/16 0619 [id number] (SPECIAL MOUTHWASH) suspension (compound) 10-15 mL, 10-15 mL, oral, Q1H PRN, Constantin Link MD,PhD, 15 mL at 07/26/16 0957 enoxaparin (LOVENOX) injection 40 mg, 40 mg, subcutaneous, QPM, Lluvia Gonzalez, POWER GENERATING PLANT OPERATOR, 40 mg at 07/30/162051 escitalopram oxalate (LEXAPRO) tablet 10 mg, 10 mg, oral, QPM, Vanessa Osborne, FABRIC STRETCHER, 10 mg at 07/30/162051 filgrastim-sndz (ZARXIO) injection 480 mcg, 480 mcg, subcutaneous, QPM AT 1700, Constantin Link MD,PhD, 480 mcg at 07/30/16 1644 fluconazole (DIFLUCAN) suspension 400 mg, 400 mg, oral, DAILY, Mary Pérez MD, 400 mg at 07/31/16 0922 fluconazole IV 400 mg IN NaCl (RTU), 400 mg, intravenous, DAILY PRN, Constantin Link MD,PhD glycerin-mineral oil (LUBRIDERM SENSITIVE LANOLIN FREE) lotion, , topical, Q2H PRN, Constantin Link MD,PhD haloperidol (HALDOL) liquid 0.5-1.5 mg, 0.5-1.5 mg, oral, Q4H PRN, Mary Pérez MD haloperidol lactate (HALDOL) injection 0.5-1 mg, 0.5-1 mg, intravenous, Q4H PRN, Constantin leon MD,PhD heparin 10 unit/mL IV flush syringe 50 Units, 50 Units, intravenous, PRN, Constantin Link MD,P hD, 50 Units at 07/30/16 0009 heparin 100 unit/mL IV flush 500 Units, 500 Units, intravenous, PRN, Ignacio Decker PA-C,JENSENS , 500 Units at 07/29/16 1457 HYDROmorphone 0.5 mg/mL DIE CUTTING MACHINE OPERATOR infusion (ADULT), , intravenous, CONTINUOUS, Ignacio Decker PA-C, MPAS, Last Rate: 0 mL/hr at 07/30/16 0615 lidocaine (LMX 4) 4 % cream, , topical, PRN, Vandana Chang, FABRIC STRETCHER loperamide (IMODIUM A-D) 1 mg/7.5 mL liquid 2 mg, 2 mg, oral, PRN, Mary Pérez MD, 2 mg at 07/30/16 1747 LORazepam (ATIVAN) tablet 0.5-1 mg, 0.5-1 mg, oral, Q6H PRN OR LORazepam (ATIVAN) injec tion 0.5-1 mg, 0.5-1 mg, intravenous, Q6H PRN, Vandana Chang, FABRIC STRETCHER, 0.5 mg at 6 0909 magnesium sulfate in water IV (RTU) 4 g, 4 g, intravenous, PRN, Constantin Link MD,PhD, Last R ate: 25 mL/hr at 07/29/16 0312, 4 g at 07/29/16 0312 magnesium sulfate IV 8 g, 8 g, intravenous, PRN, Constantin Link MD,PhD NaCl 0.9 % solution, 100 mL/hr, intravenous, CONTINUOUS, MORENA Marshall, Last R ate: 100 mL/hr at 07/30/16 2226, 100 mL/hr at 07/30/16 2226 naloxone (NARCAN) injection, , intravenous, PRN, Ignacio Decker PA-C,MPAS nystatin-zinc oxide-lidocaine (NDX) ointment (compound), , topical, Q1H PRN, Tammy Wisdom,PhD OLANZapine (ZYPREXA ZYDIS) disintegrating tablet 10 mg, 10 mg, oral, HS, Qamar Wang MD, 10 mg at 07/30/162052 omeprazole (PRILOSEC) capsule 40 mg, 40 mg, oral, BEFORE BREAKFAST, MORENA Marshall, 40 mg at 07/31/16 0619 [DISCONTINUED] ondansetron (ZOFRAN) liquid 8 mg, 8 mg, oral, Q12H (Scheduled), 8 mg at 07/15 OR ondansetron (ZOFRAN) injection 4 mg, 4 mg, intravenous, Q12H (Scheduled), L vanii S Alexis Cabrera MD, 4 mg at 07/31/16 0908 potassium chloride IV (peripheral line) 40 mEq, 40 mEq, intravenous, PRN AND potassium chloride IV (peripheral line) 60 mEq, 60 mEq, intravenous, PRN, Qamar Wang MD potassium chloride SR (K-DUR) tablet 40 mEq, 40 mEq, oral, PRN, Constantin Link MD,PhD potassium phosphate IV 30 mmol, 30 mmol, intravenous, PRN, Last Rate: 85 mL/hr at 07/30/16 1452, 30 mmol at 07/31/16 0357 AND potassium phosphate IV 40 mmol, 40 mmol, intravenous, PRN, Qamar Wang MD ramelteon (ROZEREM) tablet 8 mg, 8 mg, oral, HS PRN, Constantin Link MD,PhD saliva substitute (MOUTH KOTE) spray 1 spray, 1 spray, oral, Q1H PRN, Constantin Link MD,PhD senna-docusate (SENOKOT S) 8.6-50 mg 1-2 tablet, 1-2 tablet, oral, Q12H PRN, Tammy Wisdom,PhD sodium phosphate IV 30 mmol, 30 mmol, intravenous, PRN, Constantin Link MD,PhD, 30 mmol at 07/30 0454 sodium phosphate IV 40 mmol, 40 mmol, intravenous, PRN, Constantin Link MD,PhD, Last Rate: 57. 8 mL/hr at 07/29/16 0352, 40 mmol at 07/29/16 0352 ursodiol (ACTIGALL) capsule 300 mg, 300 mg, oral, BID, Qamar Wang MD, 300 mg at 07/15 02/27 0908 valACYclovir 50 mg/mL suspension (compound) 500 mg, 500 mg, oral, BID, Mary Pérez MD , 500 mg at 07/31/16 09 vancomycin (VANCOCIN) IV 1,750 mg, 1,750 mg, intravenous, Q8H, Qamar Wang MD, 1,750 mg at 07/31/16 0618 vancomycin 50 mg/mL oral solution (compound) 125 mg, 125 mg, oral, BID, Lluvia Gonzalez NP, 125 mg at 07/31/16 0922 Allergies: Promethazine; Sulfa (sulfonamide antibiotics); Sulfacetamide sodium; and Compaz ine [prochlorperazine] Physical Exam Last 24 hour min/max Temp: 38.2 C (100.8 F) Temp Min: 36.9 C (98.4 F) Max: 39.4 C (102.9 F) Pulse: 115 Pulse Min: 106 Max: 142 Resp: 22 Resp Min: 18 Max: 24 BP: 136/79 BP Min: 121/78 Max: 142/77 SpO2: 92 % 2 LPM by oxymask SpO2 Min: 84 % Max: 97 % Body mass index is 33.77 kg/(m^2). Gen: NAD, oxymask in place - 2 LPM OP: clear mucus membranes, no lesions Lungs: clear bilaterally Heart: regular, tachycardic, no appreciable murmur Abdomen: +BS, soft, nontender, + striae Skin: acneiform lesions of face, no peripheral embolic phenomena Ext: trace leg edema Line Site: prior right chest wall tunneled catheter & mediport sites with dressings in plac e, no spreading erythema; peripheral IV in place Diagnostic Tests: Lab Results Component Value Date WBC <0.10 07/30/2016 HB 6.6 07/30/2016 HCT 20.1 07/30/2016 PLT 31 07/30/2016 MCV 88.5 07/30/2016 RDW 45.6 07/30/2016 Lab Results Component Value Date NA 142 07/30/2016 K 3.2 (L) 07/30/2016 CL 111 (H) 07/30/2016 BICARB 20 (L) 07/30/2016 BUN 6 07/30/2016 CR 0.71 07/30/2016 GLU 99 07/30/2016 CA 7.6 (L) 07/30/2016 Lab Results Component Value Date TBILI 0.2 (L) 07/30/2016 AP 63 07/30/2016 TP 5.0 (L) 07/30/2016 ALB 2.3 (L) 07/30/2016 AST 13 07/30/2016 ALT 17 07/30/2016 Lab Results Component Value Date VANCOTROUGH 7.6 07/30/2016 CULTURES: 07/31 blood culture ordered 07/30 blood cultures x 2 sets pending CULTURE, BLOOD BACTI & YEAST OH [[id number]] [facility] CORE LAB Collected: 07/30/162158 Lab Status: In process Specimen: Blood from Hand - right Updated: 07/30/164 CULTURE, STERILITY BACTI [[id number]] LAB Collected: 07/30/16 0832 Lab Status: Preliminary result Specimen: Device Updated: 07/31/16 1004 Narrative: Culture Report: No growth to date Culture examined daily Report will be updated if growth occurs CULTURE, STERILITY BACTI [[id number]] [facility] LAB Collected: 07/30/16 0832 Lab Status: Preliminary result Specimen: Device Updated: 07/31/16 1047 Narrative: Culture Report: No growth to date Culture examined daily Report will be updated if growth occurs Gram Stain: Moderate polymorphonuclear cells No squamous epithelial cells No organisms seen CULTURE RESULT (no units) Date Value 07/29/2016 (AA) Not tested by molecular method, see culture report. 07/29/2016 (AA) Not tested by molecular method, see culture report. 07/29/2016 (AA) Not tested by molecular method, see culture report. 07/28/2016 (AA) Not tested by molecular method, see culture report. 07/28/2016 Staphylococcus aureus (A) 07/28/2016 (AA) Not tested by molecular method, see culture report. 07/28/2016 Staphylococcus aureus, Methicillin Resistant (A) 07/28/2016 Staphylococcus aureus, Methicillin Resistant (AA) 07/28/2016 Streptococcus species (AA) 07/28/2016 Streptococcus salivarius group (A) 07/28/2016 Staphylococcus aureus, Methicillin Resistant (A) 07/23/2016 Final Report:No Bacteria or Yeast isolated at 5 days. 07/23/2016 Final Report:No Bacteria or Yeast isolated at 5 days. 07/21/2016 Final Report:No Bacteria or Yeast isolated at 5 days. OTHER MICRO: 07/31 C.difficile negative 07/29 respiratory pathogen panel negative Recent radiographs: 07/31 EXAM: CHEST 2 VIEWS COMPARISON: 03/02/16 CT, 07/30/16 radiograph FINDINGS: Cardiac silhouette is normal in size. Mediastinal density remains mildly increased, especially superiorly. This is more consistent with an underlying lymph node. There is no mass effect in the trachea nor change in contour to suggest an enlarging hematoma. The lungs are clear. There is no pleural effusion or pneumothorax. Osseous structures are unremarkable. Small amount of gas is seen along the left anterior chest wall, likely related to the recently removed Port-A-Cath. IMPRESSION: Clear lungs. 07/30 EXAM: [place] CHEST 1 VIEW HISTORY: Fever, tachycardia. Patient with bacteremia and neutropenic fevers status post removal of right chest port and Goodman catheter. COMPARISON: 07/29/16 chest radiograph FINDINGS: Status post removal of right internal jugular approach port and catheter. There is increased density overlying the upper mediastinum, new from prior chest radiograph. The cardiomediastinal contour is normal. The lungs are clear, without focal consolidation to suggest pneumonia. There is no pleural effusion. There is no pulmonary edema or pneumothorax. The bones are intact. IMPRESSION: Clear lungs. Increased density in the upper mediastinum, likely artifactual and related to differences in technique; small hematoma would be a lesser consideration. Echocardiogram performed - read pending Assessment: 20 year old woman with history of relapsed Hodgkin lymphoma, s/p BEAM-condition ed autologous PBSCT on 07/21. History of RLE DVT & history of CDI last year. Neutropenic phas e complicated by high-grade MRSA bacteremia & single positive culture for Streptococcus sali varius. On vancomycin & empiric cefepime. Lines removed on 07/30, so far with negative blood cultures since that point. No obvious explanation for oxygen requirement - clear lungs on today's 2-view CXR. Recommendations: - continue vancomycin, goal trough 15-20 -- keep close eye on vancomycin trough & Cr, on hi gh-doses of vancomycin - continue cefepime - empiric, with febrile neutropenia - will f/u on TTE read - send daily blood cultures for at least the next 2 days, holding on replacing line until w e can document clearance of bacteremia PROPHYLAXIS: - on acyclovir & fluconazole, per protocol - on oral vancomycin BID (remote history of CDI) Above d/w JASMIN Tristan. Thank you. Will follow with you. Silva Hector MD [place] [id number] [facility] Mailcode: [id number] [place], [place] [id number] Miguel Sarkar MD - 07/31/2016 3:19 AM PST EGS follow-up: Called by primary team due to CXR concerning for possible mediastinal hematoma. I saw and examined the patient: She is feeling well. Denies any complaints. BP 123/71 | Pulse 111 | Temp 37.6 C (99.7 F) | RR 20 | Ht 1.755 m (5' 9.09") | Wt 101.3 kg (223 lb 5.2 oz) | SpO2 97% | BMI 32.89 kg/(m^2) General: alert and oriented, nad Chest: incisions hemostatic, no chest or neck hematomas CV: stable sinus tachycardia, normotensive Ext: wwp Labs: Lab Results Component Value Date WBC <0.10 07/30/2016 HB 6.6 07/30/2016 HCT 20.1 07/30/2016 PLT 31 07/30/2016 MCV 88.5 07/30/2016 RDW 45.6 07/30/2016 Prior H/H: 6.6/19.3 24h prior CXR: Clear lungs, no pneumothorax, increased density over right lung apex concerning for possibl e mediastinal hematoma A/P: Meggan Otero is a 20 y.o. female w/ relapsed hodgkin's lymphoma who was undergoing bon e marrow transplant c/b neutropenic fevers and MRSA bacteremia s/p removal of right-sided Hi ckman catheter and port-a-cath 07/30. With CXR concerning for possible mediastinal hematoma . Patient is asymptomatic, hemodynamically stable, with a stable Hct. -Recommend 2 view CXR at 5AM -If the density is enlarging on repeat xray, will consider CT chest with contrast Discussed with Kevin Richmond MD, chief resident Dr. Atkins is the attending of record Miguel Dooley MD EGS, [id number] yMiguel velez MD - 07/30/2016 10:45 PM PST SURGERY INPATIENT PROGRESS NOTE Date: 07/30/2016 Interval Hx/Subjective: OR this morning for removal of right-sided central lines Denies significant pain this evening Continues to spike fevers Physical Exam: Last Vitals: BP 125/68 | Pulse 134 | Temp 39.4 C (102.9 F) | RR 24 | Ht 1.755 m (5' 9.0 9") | Wt 101.3 kg (223 lb 5.2 oz) | SpO2 95% | BMI 32.89 kg/(m^2) O2 Delivery Device: Oxymas k (07/30/162102) General: awake, alert, NAD Chest: 2 incisions with clean dressings in place, no chest or neck hematoma Respiratory: unlabored respirations on room air Cardiovascular: sinus tachycardia, normotensive Gastrointestinal: soft, nontender, not distended Extremities: [facility] LABS: Chemistries Recent Labs 07/27/16 2331 07/28/16 2327 07/30/16 0008 NA 140 137 139 K 4.1 4.0 3.3* CL 106 103 107 BICARB 26 25 22 BUN 5* 4* 4* CR 0.61 0.69 0.69 CA 7.8* 7.8* 7.2* MG 1.9 1.5* 2.1 PO4 2.6 1.5* 1.6* AST 4 5 9 ALT 11 10 12 AP 61 61 61 TBILI 0.1* 0.4 0.3 ALB 2.8* 2.7* 2.5* CBC with diff Recent Labs 07/27/16 2331 07/28/16 2327 07/29/16 1542 07/30/16 0008 07/30/16 0230 WBC <0.10* <0.10* -- <0.10* -- HB 7.0* 7.4* -- 6.6* -- HCT 20.6* 21.2* -- 19.3* -- PLT 33* 13* 34* 39* 52* Coag No components found for: INR, PTT, PT CBG's Recent Labs 07/27/16 2331 07/28/16 2327 07/30/16 0008 07/30/16 0923 GLU 91 94 106* 82 Assessment and Plan: Meggan Otero is a 20 y.o. female w/ relapsed hodgkin's lymphoma who was undergoing bone marrow transplant c/b neutropenic fevers and MRSA bacteremia s/p rem oval of right-sided Goodman catheter and port-a-cath 07/30. Recovering well post-operativel y with no hematoma. -EGS will sign off at this time. Please call with questions. -Dressings can be removed on POD 2 -OK to shower on POD 2 Dr. Martinez is the attending of record for this patient care encounter Miguel Dooley MD General Surgery Resident, R3 [id number] ashon Tristan PA - 07/30/2016 5:47 PM PST . Daily NPP Note - Auto Transplant Ad[facility] Attending: Qamar Wang MD [facility] Physician: Constantin Link MD PCP: Aashish Hilton MD Benign Hematology: Jim Michael MD ([facility]) Pediatric Heme/Onc: Anh Moreland MD ([place]) Nephrology: Raghav Miller MD ([place]) Date of Admission: 07/15/2016 Conditioning regimen: BEAM Date of transplant: 07/21/2016 Reason for admission: Planned BEAM-conditioned auto PBSCT for HL 24-Hr Events/Daily Plan: -Relapsed HL: Admitted for BEAM auto PBSCT, currently Day +10 -Pancytopenia d/t conditioning chemo: Keep plts >20K d/t anticoagulation, standard Hct tra nsfusion parameters.-Neutropenic fevers (first 07/28) +MRSA bacteremia (+07/28): CXR clear. Repeat cultures 07/29 remain positive for GPC's in clusters. Blood cultures from 07/30 still pending, to be drawn on 07/31 and 08/01. Removed PAC and Goodman on today 07/30. -Continue Cefepime (07/28), Vancomycin (07/29) with goal trough 15-20. ID following. -TTE today; report pending. -Tachycardia with fevers: HR up to 150s-160s while febrile. EKG c/w ST. Continue MIVF, rosalee tment as above. 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 Monitor for hemolysis flare. Mo nitor LDH, hapto, complement activity qMon, Thurs. -RLE DVT (first noted 07/04/15, persists on 07/16 doppler in R axial calf): Continue prophyl actic Lovenox QPM and keep plts >20K. -Mucositis Grade 2, d/t moderate pain, no ulceration: Started Dilaudid DIE CUTTING MACHINE OPERATOR 07/27, continue MIVF d/t decreased PO intake/orthostatic HoTN. -[place]: Mostly controlled with scheduled Benadryl, Zofran, and Zyprexa. Breakthrough controll ed with Ativan PRN -Lytes: Standard electrolyte replacement orders. Subjective: Just came back from line removal. Feeling nauseated. Had a fever down in preop area. Remains feeling unwell overall. Objective: Last Vitals: BP 121/78 | Pulse 106 | Temp 37.4 C (99.3 F) | RR 18 | Ht 1.755 m (5' 9.09 ") | Wt 101.3 kg (223 lb 5.2 oz) | SpO2 96% | BMI 32.89 kg/(m^2) 24 Hour Vital Min/Max: Systolic (24hrs), Av , Min:113 , Max:145 Diastolic (24hrs), Av, Min:54, Max:102 Pulse Min: 106 Max: 144 Temp Min: 36.8 C (98.2 F) Max: 39.8 C (103.6 F) Resp Min: 18 Max: 33 SpO2 Min: 83 % Max: 100 % Intake/Output Summary (Last 24 hours) at 07/30/16 1747 Last data filed at 07/30/16 1652 Gross per 24 hour Intake 5555.6 ml Output 4055 ml Net 1500.6 ml Physical Exam: General: This is a female in no acute distress, laying in bed, appears uncomfort able. HEENT: PERRL. Sclerae anicteric. Mucosal ridging on right buccal mucosa and bilateral to ngue. Skin: No rash, lesions noted. Acneform rash on face. Chest: Lungs clear to auscultation bilat. CV: RRR, no murmurs. Abdomen: S/NT/ND with NABS. No HSM appreciated. Extremities: Pulses strong and equal bilaterally. No c/c/e. Neuro: Alert and oriented x 3. Grossly nonfocal exam. CVC: None, PIV only. Recent Labs 07/27/16 23307/28/16232607/30/16 0008 07/30/16 0923 NA 140 137 139 -- K 4.1 4.0 3.3* -- CL 106 103 107 -- BICARB 26 25 22 -- BUN 5* 4* 4* -- CR 0.61 0.69 0.69 -- GLU 91 94 106* 82 CA 7.8* 7.8* 7.2* -- AST 4 5 9 -- ALT 11 10 12 -- AP 61 61 61 -- TBILI 0.1* 0.4 0.3 -- TP 5.1* 5.3* 5.2* -- ALB 2.8* 2.7* 2.5* -- Recent Labs 07/20/16 2309 07/21/16 2314 07/22/16 2335 07/27/16 2331 07/28/16 2327 07/29/16 1542 07/30/16 0008 07/30/16 0230 WBC 1.55* 7.90 0.82* < > <0.10* <0.10* -- <0.10* -- RBC 2.29* 2.54* 2.53* < > 2.28* 2.41* -- 2.18* -- HB 6.9* 7.7* 7.7* < > 7.0* 7.4* -- 6.6* -- HCT 20.8* 22.7* 23.2* < > 20.6* 21.2* -- 19.3* -- PLT 135* 125* 90* < > 33* 13* 34* 39* 52* NEUTROPERC 97.5* 98.3* 83.2* -- -- -- -- -- -- LYMPHPERC 1.9* 0.8* 16.8* -- -- -- -- -- -- MONOPERC 0.0* 0.0* 0.0* -- -- -- -- -- -- BASOPERC 0.0 0.1 0.0 -- -- -- -- -- -- EOSPERC 0.0* 0.0* 0.0* -- -- -- -- -- -- < > = values in this interval not displayed. Meds: Reviewed on rounds, see current MAR for medication list Past Medical History: Meggan Otero is a 20 y.o. 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, admit for autoBMT Local oncologist: Aashish Hilton MD ([facility]) Benign Hematology: Jim Michael MD ([facility]) Pediatric Heme/Onc: Anh Moreland MD ([place]) Nephrology: Raghav Miller MD ([place]) 04/[address] presented with flank pain CT C/A/P: 11 cm anterior mediastinal mass, pleural effusion & L supraclav adenopathy Needle bx: classical hodgkins, nodular sclerosing type Thoracentesis: reactive/benign BMBx: neg PET: bulky mediastinal mass, SUV 16; bilateral neck SUV 15; also R>L pleural effusion 05/10/15 began ABVE-PC (as per pediatric [id number]) via femoral line 05/16/15 presented with sepsis [...] L neck: classical Hodgkins Above therapy in [place] -> moved to [place] Continued on ecalizumab per benign heme (Fernanda) - genetic testing for aHUS PENDING GDP x3 06/2017 CR by PET Goodman placed GCSF stem cell mobilization: 7.3 x10^6 cd34/kg Hospitalization History: Hematology/Onc: #Relapsed HL Conditioning regimen: BEAM -Carmustine 300 mg/m IV on day -6 -Etoposide 200 mg/m IV daily on days -5, -4,- 3, and -1 -Cytarabine 400 mg/m daily on days -5, -4,- 3, and -1 -Melphalan 140 mg/m IV on day -1 Stem cell transplant -Day: +9 -Tolerated autologous product on 07/21/16. 7.3x10^6 per kg CD 34+ cells Post-BMT Plan: -Plan for Brentuximab maintenance starting ~6 wks post-BMT back home which improves EFS in high risk pts post-auto. She meets high risk criteria due to early relapse. #Pancytopenia d/t chemo -Antimicrobials as below -See supportive care #Supportive Care: Growth Factor: Started daily Zarxio dosing on Day +5 (07/26) and will continue until ANC > 1500 x 2 consecutive days. Labs: Continue to check CBC with diff daily Transfusion parameters: -Transfuse PRBCs for HCT <21% if asymptomatic OR <24% if symptomatic -Transfuse PPH for platelet count <20K (anticoagulation) or sooner PRN s/s active bleeding HEENT: #Recent [place] Tooth Extractions (~2-[address] CROSSING GUARD): Nearly resolved -NS rinses PRN Pulmonary: Pretransplant PFTs completed on 06/25/16 (at [facility]) showed FEV1 of 86% pr edicted, FVC of 90% predicted and DLCO of 50% predicted. No acute issues Cardiovascular: Pretransplant MUGA completed on 06/24/16 (at [facility]) showed a LVEF of 5 5%. #RLE DVT (first noted 07/04/15, persists on 07/16 doppler in R axial calf): Apixaban ROAD CROSSING GUARD -STOPPED Apixiban 5 mg BID on admission -Received Tx-dose Lovenox until plts <50K (07/15-07/25) -Lovenox 40 mg qpm while thrombocytopenic w/ keeping plts >20K #Orthostatic HoTN (first noted 07/20): Sx improved with NS boluses but persistently Sx when getting OOB. -1L NS boluses PRN if asymptomatic GI: #GERD: Pepcid ROAD CROSSING GUARD -Prilosec 40 mg daily #Mucositis: pain without ulcerations, grade 2 -Continue oral care with normal saline rinses frequently -Liquid medications as able -Transition to IV meds if worsening PO intake -Dilaudid DIE CUTTING MACHINE OPERATOR initiated 07/27 -MIVF as below #[place]: ongoing, improved -Benadryl 25 mg PO q 6 hrs -Zofran IV/PO q 12 hrs -Zyprexa 10 mg qhs -Ativan, Haldol PRN Renal: #Atypical HUS: Ecalizumab ROAD CROSSING GUARD -Eculizumab q 2 weeks, next dose 08/09 -Monitor for hemolysis flare -Monitor LDH, hapto, complement activity qMon, Thurs Neuro/Psych: #Depression/Anxiety: Lexapro ROAD CROSSING GUARD -Lexapro 10 mg daily -Ativan PRN Infectious Disease: #Neutropenic fevers (first 07/28) +MRSA bacteremia (+07/28): CXR clear. ID following -EGS removed PAC and Goodman in OR on 07/30. -Continue Cefepime (07/28), d/t neutropenic fevers -Vancomycin (07/29) added with MRSA +BCx -F/u BCx x3 days (07/29-07/31) still pending. #Hx C. Diff Colitis: not active, last checked 07/23 negative. -Flagyl prophy started on Day 0 (07/21-07/29) per Dr. Link -PO Vanco BID (07/29- ) switched from QID per ID d/t nausea #Prophylaxis: Bacterial: As above Fungal: Fluconazole started day 0 and continues until Day +30 Viral: Valacyclovir started day +1; will switch to Acyclovir upon discharge and continue u ntil Day +365 PCP: Bactrim day of admission through day -1, then restarts around Day +30 to +40 (or Daps [id number] mg po daily if sulfa allergic), pending platelet counts >50K. PCP prophy to continue 6 mos post PBSCT Toxo: (06/17/16) Toxo neg. No further testing required Fluid/Nutrition/Lytes: #Nutrition: Regular diet, No Adriane's yogurt or Kefir #Fluid: NS @ 100 mL/hr d/t orthostatic HoTN/bacteremia #Lytes: Continue to check chemistries daily. Replace per supportive care protocol. Disposition: Pt with relapsed HL, adm for auto PBSCT. Anticipate 3-4 week hospitalization. LILLIANA [facility] [address] [place] [address] Mailcode: [id number] [facility] [id number] eo Polanco - 07/30/2016 5:41 PM PSTTransthoracic echocardiogram completed. Final report to follow. ilva Hector MD - 3:08 PM PST TRANSPLANT INFECTIOUS DISEASES FOLLOW UP VISIT NOTE I saw & examined Ms. Otero. Chart reviewed & events noted. Transient requirement for supplemental oxygen last night & again this afternoon. At last c heck was 96% on room air. CXR last night was clear. Fever to 39.2C mid-day. Both mediport & tunneled catheter removed in OR this morning - operative note reflects no g ross evidence of infection. 07/29 blood culture with GPC in clusters. Patient's is at bedside. She reports feeling overall better, with fever down this afternoon. No report of cough, chest pain or shortness of breath in association with need for suppleme ntal oxygen earlier. Endorses watery stools - 3 "average" volume stools over the past 24 hours. No visual change. No abdominal pain. No back or joint pain. Current Medications: Current Facility-Administered Medications: acetaminophen (TYLENOL) or al suspension 325-650 mg, 325-650 mg, oral, Q4H PRN, Mary Pérez MD, 650 mg at 6 1225 acyclovir (ZOVIRAX) 500 mg in NaCl 0.9 % IV, 500 mg, intravenous, Q12H PRN, Constantin Link MD ,PhD alteplase (CATHFLO ACTIVASE) injection 2 mg, 2 mg, Intracatheter, PRN, Constantin Link MD,PhD aluminum-magnesium hydroxide-simethicone (MAALOX; MYLANTA) 200-200-20 mg/5 mL suspension 30 mL, 30 mL, oral, Q3H PRN, Constantin Link MD,PhD ceFEPime IV 2 grams in NS (MB+), 2 g, intravenous, Q8H, Qamar Wang MD, Last Rate: 0 mL/hr at 07/30/16 0130, 2 g at 07/30/16 1127 diphenhydrAMINE (BENADRYL) oral solution 25 mg, 25 mg, oral, Q6H, Ignacio Decker PA-C,MPAS, 2 5 mg at 07/30/16 1203 rxkismmdwuBAZHP-rxyoodmtp-NABULB (SPECIAL MOUTHWASH) suspension (compound) 10-15 mL, 10-15 mL, oral, Q1H PRN, Constantin Link MD,PhD, 15 mL at 07/26/16 0957 enoxaparin (LOVENOX) injection 40 mg, 40 mg, subcutaneous, QPM, Lluvia Gonzalez, POWER GENERATING PLANT OPERATOR escitalopram oxalate (LEXAPRO) tablet 10 mg, 10 mg, oral, QPM, Vanessa Osborne, MORENA, 10 mg at 07/29/16 213 filgrastim-sndz (ZARXIO) injection 480 mcg, 480 mcg, subcutaneous, QPM AT 1700, Constantin Link MD,PhD, 480 mcg at 07/29/16 1622 fluconazole (DIFLUCAN) suspension 400 mg, 400 mg, oral, DAILY, Mary Pérez MD, 400 mg at 07/30/16 1204 fluconazole IV 400 mg IN NaCl (RTU), 400 mg, intravenous, DAILY PRN, Constantin Link MD,PhD glycerin-mineral oil (LUBRIDERM SENSITIVE LANOLIN FREE) lotion, , topical, Q2H PRN, Constantin Link MD,PhD haloperidol (HALDOL) liquid 0.5-1.5 mg, 0.5-1.5 mg, oral, Q4H PRN, Mary Pérez MD haloperidol lactate (HALDOL) injection 0.5-1 mg, 0.5-1 mg, intravenous, Q4H PRN, Constantin leon MD,PhD heparin 10 unit/mL IV flush syringe 50 Units, 50 Units, intravenous, PRN, Constantin Link MD,P hD, 50 Units at 07/30/16 0009 heparin 100 unit/mL IV flush 500 Units, 500 Units, intravenous, PRN, Ignacio Decker PA-C,MPAS , 500 Units at 07/29/16 1457 HYDROmorphone 0.5 mg/mL DIE CUTTING MACHINE OPERATOR infusion (ADULT), , intravenous, CONTINUOUS, Ignacio Decker PA-C, MPAS, Last Rate: 0 mL/hr at 07/30/16 0615 lidocaine (LMX 4) 4 % cream, , topical, PRN, Vandana Chang, MORENA loperamide (IMODIUM A-D) 1 mg/7.5 mL liquid 2 mg, 2 mg, oral, PRN, Mary Pérez MD, 2 mg at 07/25/16 1623 LORazepam (ATIVAN) tablet 0.5-1 mg, 0.5-1 mg, oral, Q6H PRN OR LORazepam (ATIVAN) injec tion 0.5-1 mg, 0.5-1 mg, intravenous, Q6H PRN, MORENA Marshall, 0.5 mg at 2015 magnesium sulfate in water IV (RTU) 4 g, 4 g, intravenous, PRN, Constantin Link MD,PhD, Last R ate: 25 mL/hr at 07/29/16 0312, 4 g at 07/29/16 031 magnesium sulfate IV 8 g, 8 g, intravenous, PRN, Constantin Link MD,PhD NaCl 0.9 % solution, 100 mL/hr, intravenous, CONTINUOUS, MORENA Marshall, Last R ate: 100 mL/hr at 07/30/16 1050, 100 mL/hr at 07/30/16 1050 naloxone (NARCAN) injection, , intravenous, PRN, Ignacio Decker PA-C,MPAS nystatin-zinc oxide-lidocaine (NDX) ointment (compound), , topical, Q1H PRN, Tammy Wisdom,PhD OLANZapine (ZYPREXA ZYDIS) disintegrating tablet 10 mg, 10 mg, oral, HS, Qamar Wang MD, 10 mg at 07/29/162054 omeprazole (PRILOSEC) capsule 40 mg, 40 mg, oral, BEFORE BREAKFAST, MORENA Marshall, 40 mg at 07/30/16 1204 [DISCONTINUED] ondansetron (ZOFRAN) liquid 8 mg, 8 mg, oral, Q12H (Scheduled), 8 mg at 07/15 OR ondansetron (ZOFRAN) injection 4 mg, 4 mg, intravenous, Q12H (Scheduled), Teo Pérez MD, 4 mg at 07/30/16 1200 potassium chloride IV (peripheral line) 40 mEq, 40 mEq, intravenous, PRN AND potassium chloride IV (peripheral line) 60 mEq, 60 mEq, intravenous, PRN, Qamar Wang MD potassium chloride SR (K-DUR) tablet 40 mEq, 40 mEq, oral, PRN, Constantin Link MD,PhD potassium phosphate IV 30 mmol, 30 mmol, intravenous, PRN, Last Rate: 85 mL/hr at 07/30/16 1452, 30 mmol at 07/30/16 1452 AND potassium phosphate IV 40 mmol, 40 mmol, intravenous, PRN, Qamar Wang MD ramelteon (ROZEREM) tablet 8 mg, 8 mg, oral, HS PRN, Constantin Link MD,PhD saliva substitute (MOUTH KOTE) spray 1 spray, 1 spray, oral, Q1H PRN, Constantin Link MD,PhD senna-docusate (SENOKOT S) 8.6-50 mg 1-2 tablet, 1-2 tablet, oral, Q12H PRN, Tammy Wisdom,PhD sodium phosphate IV 30 mmol, 30 mmol, intravenous, PRN, Constantin Link MD,PhD, 30 mmol at 07/30 0454 sodium phosphate IV 40 mmol, 40 mmol, intravenous, PRN, Constantin Link MD,PhD, Last Rate: 57. 8 mL/hr at 07/29/16 0352, 40 mmol at 07/29/16 0352 ursodiol (ACTIGALL) capsule 300 mg, 300 mg, oral, BID, Qamar Wang MD, 300 mg at 07/15 01/28 1226 valACYclovir 50 mg/mL suspension (compound) 500 mg, 500 mg, oral, BID, Mary Pérez MD , 500 mg at 07/29/16 2136 vancomycin (VANCOCIN) IV 1,750 mg, 1,750 mg, intravenous, Q12H, Lluvia Gonzalez NP, Las t Rate: 296 mL/hr at 07/30/16 1445, 1,750 mg at 07/30/16 1445 vancomycin 50 mg/mL oral solution (compound) 125 mg, 125 mg, oral, BID, Lluvia Gonzalez NP, 125 mg at 07/29/16 215 Allergies: Promethazine; Sulfa (sulfonamide antibiotics); Sulfacetamide sodium; and Compaz ine [prochlorperazine] Physical Exam Last 24 hour min/max Temp: 37.9 C (100.2 F) Temp Min: 36.8 C (98.2 F) Max: 39.8 C (103.6 F) Pulse: 121 Pulse Min: 111 Max: 150 Resp: 18 Resp Min: 18 Max: 33 BP: 128/68 BP Min: 113/54 Max: 145/88 SpO2: 96 % SpO2 Min: 83 % Max: 100 % Body mass index is 32.89 kg/(m^2). Gen: NAD, appears significantly more comfortable today OP: clear mucus membranes, no lesions Lungs: clear bilaterally Heart: regular, tachycardic, no appreciable murmur Abdomen: +BS, soft, nontender, + striae Skin: acneiform lesions of face, no peripheral embolic phenomena Ext: trace leg edema Line Site: prior right chest wall tunneled catheter & mediport sites with dressings in plac e, no spreading erythema; peripheral IV in place Diagnostic Tests: Lab Results Component Value Date WBC <0.10 07/30/2016 HB 6.6 07/30/2016 HCT 19.3 07/30/2016 PLT 52 07/30/2016 MCV 88.5 07/30/2016 RDW 43.4 07/30/2016 Lab Results Component Value Date NA 139 07/30/2016 K 3.3 (L) 07/30/2016 CL 107 07/30/2016 BICARB 22 07/30/2016 BUN 4 (L) 07/30/2016 CR 0.69 07/30/2016 GLU 82 07/30/2016 CA 7.2 (L) 07/30/2016 Lab Results Component Value Date TBILI 0.3 07/30/2016 AP 61 07/30/2016 TP 5.2 (L) 07/30/2016 ALB 2.5 (L) 07/30/2016 AST 9 07/30/2016 ALT 12 07/30/2016 CULTURES: 07/30 device cultures pending 07/30 blood culture pending CULTURE RESULT (no units) Date Value 07/29/2016 (AA) Not tested by molecular method, see culture report. 07/29/2016 (AA) Not tested by molecular method, see culture report. 07/28/2016 (AA) Not tested by molecular method, see culture report. 07/28/2016 Staphylococcus aureus (A) 07/28/2016 (AA) Not tested by molecular method, see culture report. 07/28/2016 Staphylococcus aureus (A) 07/28/2016 Staphylococcus aureus, Methicillin Resistant (AA) 07/28/2016 Streptococcus species (AA) 07/28/2016 Alpha hemolytic Streptococci (A) 07/28/2016 Staphylococcus aureus (A) 07/23/2016 Final Report:No Bacteria or Yeast isolated at 5 days. 07/23/2016 Final Report:No Bacteria or Yeast isolated at 5 days. 07/21/2016 Final Report:No Bacteria or Yeast isolated at 5 days. URINE CULTURE WORKUP [[id number]] (Abnormal) LAB Collected: 07/28/16 1700 Lab Status: Final result Specimen: Urine from Urine Updated: 07/29/169 ORGANISM Gram positive bacilli (A) LAB Narrative: Culture Report: 30,000 cfu/ml Gram positive bacilli Morphologically resembling Lactobacillus species < 10,000 cfu/ml Insignificant growth OTHER MICRO: 07/29 influenza A/B PCR negative 07/29 respiratory pathogen panel negative Recent radiographs: 07/29 EXAM: MN CHEST 1 VIEW HISTORY: Hypoxemia COMPARISON: Yesterday FINDINGS: Port-A-Cath and right jugular venous catheter remain in place. Cardiomediastinal silhouette is normal. The lungs are clear. There is no pulmonary edema. No pleural effusion is evident. IMPRESSION: Clear lungs. Assessment: 20 year old woman with history of relapsed Hodgkin lymphoma, s/p BEAM-condition ed autologous PBSCT on 07/21. History of RLE DVT & history of CDI last year. Neutropenic ph ase complicated by high-grade MRSA bacteremia & single positive culture for alpha-hemolytic Streptococcus. On vancomycin & empiric cefepime. Lines removed this morning. Recommendations: - continue vancomycin, goal trough 15-20 - continue cefepime - empiric, with febrile neutropenia - please obtain TTE - send daily blood cultures for at least the next 3 days, holding on replacing line until w e can document clearance of bacteremia PROPHYLAXIS: - on acyclovir & fluconazole, per protocol - on oral vancomycin BID (remote history of CDI) Above d/w JASMIN Tristan. Thank you. Will follow with you. Silva Hector MD [facility] [id number] Mailcode: [id number] [place], [place] [id number] Qamar Hall MD - 07/30/2016 12:26 PM PST Leukemia/Lymphoma Inpatient Attending Progress Date: 07/30/2016 I have personally seen, examined, and discussed Meggan Otero with the CLAUDINE and I agree with the findings and recommendations as documented in the CLAUDINE note today. I have also perso rowdy reviewed all relevant clinical hx and data and formulated the management plan. See CLAUDINE note for details. S/Interval events:febrile. Both lines out (mediport and goodman) -removed this am. Having s ome post-operative pain but otherwise without new complaints. O Last Vitals: BP 134/102 | Pulse 128 | Temp 37.3 C (99.1 F) | RR 23 | Ht 1.755 m (5' 9.0 9") | Wt 101.3 kg (223 lb 5.2 oz) | SpO2 93% | BMI 32.89 kg/(m^2) 24 Hour Vital Min/Max: Systolic (24hrs), Av , Min:113 , Max:145 Diastolic (24hrs), Av, Min:54, Max:102 Pulse Min: 111 Max: 150 Temp Min: 36.8 C (98.2 F) Max: 39.8 C (103.6 F) Resp Min: 16 Max: 33 SpO2 Min: 84 % Max: 100 % Intake/Output Summary (Last 24 hours) at 07/30/16 1226 Last data filed at 07/30/16 1127 Gross per 24 hour Intake 5676.6 ml Output 4825 ml Net 851.6 ml Interactive, pleasant Remainder of exam per CLAUDINE Lab Results Component Value Date WBC <0.10 (L) 07/30/2016 RBC 2.18 (L) 07/30/2016 HCT 19.3 (L) 07/30/2016 HB 6.6 (L) 07/30/2016 MCV 88.5 07/30/2016 MCH 31.2 07/05/2016 MCHC 34.2 07/30/2016 PLT 52 (L) 07/30/2016 NEUTROPERC 07/30/2016 Comment: WBC <300; differential not performed. LYMPHPERC 07/30/2016 Comment: WBC <300; differential not performed. MONOPERC 07/30/2016 Comment: WBC <300; differential not performed. EOSPERC 07/30/2016 Comment: WBC <300; differential not performed. BASOPERC 07/30/2016 Comment: WBC <300; differential not performed. NEUTROPHILCO 07/30/2016 Comment: WBC <300; differential not performed. GLU 82 07/30/2016 BUN 4 (L) 07/30/2016 CR 0.69 07/30/2016 TP 5.2 (L) 07/30/2016 ALB 2.5 (L) 07/30/2016 CA 7.2 (L) 07/30/2016 TBILI 0.3 07/30/2016 AP 61 07/30/2016 AST 9 07/30/2016 NA 139 07/30/2016 K 3.3 (L) 07/30/2016 CL 107 07/30/2016 BICARB 22 07/30/2016 ALT 12 07/30/2016 CULTURE RESULT (no units) Date Value 07/23/2016 No growth to date. 07/23/2016 No growth to date. A/P: Meggan Otero is a 20 y.o. With relapsed HL admitted for BEAM auto. 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 HL s/p PBSCT: counts at [place] -transfuse prbcs 2. Neutropenic fever with MRSA bacteremia: - continue vancomycin - daily cultures - continue cefepime - Lines out - TTE 3. Hx of c-diff -continue flagyl through count recovery 4. Atypical HUS -continue ecaluzimab (q 14 days)- no evidence of recurrent HUS 5. DVT: Continue LMWH (prophy dosing given thrombocytopenia) - keep plt > 20K 6. Pain control for mucositis and line removal -conitnue DIE CUTTING MACHINE OPERATOR See CLAUDINE documentation from today for complete details. Supportive care as outlined in NPP note and our orders from today CODE: FULL QAMAR WANG MD coding consultant [facility] Cherry [email or web address] [phone] Margi Puentes PA - 07/30/2016 11:49 AM PSTFormatting of this note might be different from the brooke lRae Daily NPP Note - Auto Transplant Admit [facility] Attending: Qamar Wang MD [facility] Physician: Constantin Link MD PCP: Aashish Hilton MD Benign Hematology: Jim Michael MD ([facility]) Pediatric Heme/Onc: Anh Moreland MD ([place]) Nephrology: Raghav Miller MD ([place]) Date of Admission: 07/15/2016 Conditioning regimen: BEAM Date of transplant: 07/21/2016 Reason for admission: Planned BEAM-conditioned auto PBSCT for HL 24-Hr Events/Daily Plan: -Relapsed HL: Admitted for BEAM auto PBSCT, currently Day +9 -Pancytopenia d/t conditioning chemo: Keep plts >20K d/t anticoagulation, standard Hct tra nsfusion parameters. -Neutropenic fevers (first 07/28) +MRSA bacteremia (+07/28): CXR clear. F/u BCx x3 days (-07/31). Removed PAC and Goodman on today 07/30. Continue Cefepime (07/28), Vancomycin (1 09/29). ID following. -Tachycardia with fevers: HR up to 150s-160s while febrile. EKG c/w ST. Continue MIVF, rosalee tment as above. 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 Monitor for hemolysis flare. Mo nitor LDH, hapto, complement activity qMon, Thurs. -RLE DVT (first noted 07/04/15, persists on 07/16 doppler in R axial calf): Continue prophyl actic Lovenox QPM and keep plts >20K. -Mucositis Grade 2, d/t moderate pain, no ulceration: Started Dilaudid DIE CUTTING MACHINE OPERATOR 07/27, continue MIVF d/t decreased PO intake/orthostatic HoTN. -[place]INA: Mostly controlled with scheduled Benadryl, Zofran, and Zyprexa. Breakthrough controll ed with Ativan PRN -Lytes: Standard electrolyte replacement orders. Subjective: Just came back from line removal. Feeling nauseated. Had a fever down in preop area. Remains feeling unwell overall. Objective: Last Vitals: BP 134/102 | Pulse 128 | Temp 37.3 C (99.1 F) | RR 23 | Ht 1.755 m (5' 9.0 9") | Wt 101.3 kg (223 lb 5.2 oz) | SpO2 93% | BMI 32.89 kg/(m^2) 24 Hour Vital Min/Max: Systolic (24hrs), Av , Min:113 , Max:145 Diastolic (24hrs), Av, Min:54, Max:102 Pulse Min: 111 Max: 164 Temp Min: 36.8 C (98.2 F) Max: 39.8 C (103.6 F) Resp Min: 16 Max: 33 SpO2 Min: 84 % Max: 100 % Intake/Output Summary (Last 24 hours) at 07/30/16 1149 Last data filed at 07/30/16 1127 Gross per 24 hour Intake 6667.6 ml Output 4375 ml Net 2292.6 ml Physical Exam: General: This is a female in no acute distress, laying in bed, appears uncomfort able. HEENT: PERRL. Sclerae anicteric. Mucosal ridging on right buccal mucosa and bilateral to ngue. Skin: No rash, lesions noted. Acneform rash on face. Chest: Lungs clear to auscultation bilat. CV: RRR, no murmurs. Abdomen: S/NT/ND with NABS. No HSM appreciated. Extremities: Pulses strong and equal bilaterally. No c/c/e. Neuro: Alert and oriented x 3. Grossly nonfocal exam. CVC: None, PIV only. Recent Labs 07/27/16 2331 07/28/16 2327 07/30/16 0008 07/30/16 0923 NA 140 137 139 -- K 4.1 4.0 3.3* -- CL 106 103 107 -- BICARB 26 25 22 -- BUN 5* 4* 4* -- CR 0.61 0.69 0.69 -- GLU 91 94 106* 82 CA 7.8* 7.8* 7.2* -- AST 4 5 9 -- ALT 11 10 12 -- AP 61 61 61 -- TBILI 0.1* 0.4 0.3 -- TP 5.1* 5.3* 5.2* -- ALB 2.8* 2.7* 2.5* -- Recent Labs 07/20/16 2309 07/21/16 2314 07/22/16 2335 07/27/16 2331 07/28/16 2327 07/29/16 1542 07/30/16 0008 07/30/16 0230 WBC 1.55* 7.90 0.82* < > <0.10* <0.10* -- <0.10* -- RBC 2.29* 2.54* 2.53* < > 2.28* 2.41* -- 2.18* -- HB 6.9* 7.7* 7.7* < > 7.0* 7.4* -- 6.6* -- HCT 20.8* 22.7* 23.2* < > 20.6* 21.2* -- 19.3* -- PLT 135* 125* 90* < > 33* 13* 34* 39* 52* NEUTROPERC 97.5* 98.3* 83.2* -- -- -- -- -- -- LYMPHPERC 1.9* 0.8* 16.8* -- -- -- -- -- -- MONOPERC 0.0* 0.0* 0.0* -- -- -- -- -- -- BASOPERC 0.0 0.1 0.0 -- -- -- -- -- -- EOSPERC 0.0* 0.0* 0.0* -- -- -- -- -- -- < > = values in this interval not displayed. Meds: Reviewed on rounds, see current MAR for medication list Past Medical History: Meggan Otero is a 20 y.o. 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, admit for autoBMT Local oncologist: Aashish Hilton MD ([facility]) Benign Hematology: Jim Michael MD ([facility]) Pediatric Heme/Onc: Anh Moreland MD ([place]) Nephrology: Raghav Miller MD ([place]) 04/2015 presented with flank pain CT C/A/P: 11 cm anterior mediastinal mass, pleural effusion & L supraclav adenopathy Needle bx: classical hodgkins, nodular sclerosing type Thoracentesis: reactive/benign BMBx: neg PET: bulky mediastinal mass, SUV 16; bilateral neck SUV 15; also R>L pleural effusion 05/10/15 began ABVE-PC (as per pediatric [id number]) via femoral line 05/16/15 presented with sepsis [...] L neck: classical Hodgkins Above therapy in [place] -> moved to [place] Continued on ecalizumab per benign heme (Fernanda) - genetic testing for aHUS PENDING GDP x3 06/2017 CR by PET Goodman placed GCSF stem cell mobilization: 7.3 x10^6 cd34/kg Hospitalization History: Hematology/Onc: #Relapsed HL Conditioning regimen: BEAM -Carmustine 300 mg/m IV on day -6 -Etoposide 200 mg/m IV daily on days -5, -4,- 3, and -1 -Cytarabine 400 mg/m daily on days -5, -4,- 3, and -1 -Melphalan 140 mg/m IV on day -1 Stem cell transplant -Day: +9 -Tolerated autologous product on 07/21/16. 7.3x10^6 per kg CD 34+ cells Post-BMT Plan: -Plan for Brentuximab maintenance starting ~6 wks post-BMT back home which improves EFS in high risk pts post-auto. She meets high risk criteria due to early relapse. #Pancytopenia d/t chemo -Antimicrobials as below -See supportive care #Supportive Care: Growth Factor: Started daily Zarxio dosing on Day +5 (07/26) and will continue until ANC > 1500 x 2 consecutive days. Labs: Continue to check CBC with diff daily Transfusion parameters: -Transfuse PRBCs for HCT <21% if asymptomatic OR <24% if symptomatic -Transfuse PPH for platelet count <20K (anticoagulation) or sooner PRN s/s active bleeding HEENT: #Recent [place] Tooth Extractions (~2-[address] CROSSING GUARD): Nearly resolved -NS rinses PRN Pulmonary: Pretransplant PFTs completed on 06/25/16 (at [facility]) showed FEV1 of 86% pr edicted, FVC of 90% predicted and DLCO of 50% predicted. No acute issues Cardiovascular: Pretransplant MUGA completed on 06/24/16 (at [facility]) showed a LVEF of 5 5%. #RLE DVT (first noted 07/04/15, persists on 07/16 doppler in R axial calf): Apixaban ROAD CROSSING GUARD -STOPPED Apixiban 5 mg BID on admission -Received Tx-dose Lovenox until plts <50K (07/15-07/25) -Lovenox 40 mg qpm while thrombocytopenic w/ keeping plts >20K #Orthostatic HoTN (first noted 07/20): Sx improved with NS boluses but persistently Sx when getting OOB. -1L NS boluses PRN if asymptomatic GI: #GERD: Pepcid ROAD CROSSING GUARD -Prilosec 40 mg daily #Mucositis: pain without ulcerations, grade 2 -Continue oral care with normal saline rinses frequently -Liquid medications as able -Transition to IV meds if worsening PO intake -Dilaudid DIE CUTTING MACHINE OPERATOR initiated 07/27 -MIVF as below #CH[place]: ongoing, improved -Benadryl 25 mg PO q 6 hrs -Zofran IV/PO q 12 hrs -Zyprexa 10 mg qhs -Ativan, Haldol PRN Renal: #Atypical HUS: Ecalizumab ROAD CROSSING GUARD -Eculizumab q 2 weeks, next dose 08/09 -Monitor for hemolysis flare -Monitor LDH, hapto, complement activity qMon, Thurs Neuro/Psych: #Depression/Anxiety: Lexapro ROAD CROSSING GUARD -Lexapro 10 mg daily -Ativan PRN Infectious Disease: #Neutropenic fevers (first 07/28) +MRSA bacteremia (+07/28): CXR clear. ID following -EGS removed PAC and Goodman in OR on 07/30. -Continue Cefepime (07/28), d/t neutropenic fevers -Vancomycin (07/29) added with MRSA +BCx -F/u BCx x3 days (07/29-07/31) still pending. #Hx C. Diff Colitis: not active, last checked 07/23 negative. -Flagyl prophy started on Day 0 (07/21-07/29) per Dr. Link -PO Vanco BID (07/29- ) switched from QID per ID d/t nausea #Prophylaxis: Bacterial: As above Fungal: Fluconazole started day 0 and continues until Day +30 Viral: Valacyclovir started day +1; will switch to Acyclovir upon discharge and continue u ntil Day +365 PCP: Bactrim day of admission through day -1, then restarts around Day +30 to +40 (or Daps [id number] mg po daily if sulfa allergic), pending platelet counts >50K. PCP prophy to continue 6 mos post PBSCT Toxo: (06/17/16) Toxo neg. No further testing required Fluid/Nutrition/Lytes: #Nutrition: Regular diet, No Adriane's yogurt or Kefir #Fluid: NS @ 100 mL/hr d/t orthostatic HoTN/bacteremia #Lytes: Continue to check chemistries daily. Replace per supportive care protocol. Disposition: Pt with relapsed HL, adm for auto PBSCT. Anticipate 3-4 week hospitalization. JASMIN Farfan-C [facility] [address] [facility] Mailcode: [id number] [place] [id number] iguel Dooley MD - 07/30/2016 2:09 AM PST . SURGERY INPATIENT PROGRESS NOTE Date: 07/30/2016 Interval Hx/Subjective: Transient oxygen requirement overnight, currently back to room air Remains febrile Physical Exam: Last Vitals: BP 121/59 | Pulse 116 | Temp 38 C (100.4 F) | RR 20 | Ht 1.755 m (5' 9.09" ) | Wt 101.3 kg (223 lb 5.2 oz) | SpO2 91% | BMI 32.89 kg/(m^2) O2 Delivery Device: None (ro om air) (07/30/16 0115) General: awake, alert, NAD Chest: right-sided port-a-cath and goodman catheter in place, no surrounding erythema Respiratory: unlabored respirations on 4L NC Cardiovascular: sinus tachycardia, normotensive Gastrointestinal: soft, nontender, not distended Extremities: wwp LABS: Chemistries Recent Labs 07/27/16 23307/28/16 2327 07/30/16 0008 NA 140 137 139 K 4.1 4.0 3.3* CL 106 103 107 BICARB 26 25 22 BUN 5* 4* 4* CR 0.61 0.69 0.69 CA 7.8* 7.8* 7.2* MG 1.9 1.5* 2.1 PO4 2.6 1.5* 1.6* AST 4 5 9 ALT 11 10 12 AP 61 61 61 TBILI 0.1* 0.4 0.3 ALB 2.8* 2.7* 2.5* CBC with diff Recent Labs 07/27/16 2331 07/28/16 2327 07/29/16 1542 07/30/16 0008 WBC <0.10* <0.10* -- <0.10* HB 7.0* 7.4* -- 6.6* HCT 20.6* 21.2* -- 19.3* PLT 33* 13* 34* 39* Coag No components found for: INR, PTT, PT CBG's Recent Labs 07/27/16 2331 07/28/16 2327 07/30/16 0008 GLU 91 94 106* Assessment and Plan: Meggan Otero is a 20 y.o. female w/ relapsed hodgkin's lymphoma who was undergoing bone marrow transplant whose c/b neutropenic fevers, now with MRSA bacter emia with right-sided Goodman catheter and port-a-cath in place. -OR today for removal of port and Goodman catheter -PARQ held, consent signed last night -Abx per primary team -NPO for surgery Dr. Maritnez is the attending of record for this patient care encounter Miguel Dooley MD General Surgery Resident, [id number] Juliette Paulino MD - 07/29/2016 9:24 PM PSTBMT Cross Cover Note Was called to assess Meggan given increased O2 requirements this evening. Briefly, this is a 20 year old female with a history of relapsed classical Hodgkin's, admitted now for BEAM c onditioned autologous hsct. Her course has been complicated by neutropenic fevers since ; blood cultures today positive for MRSA. She is on cefepime and Vancomycin, with plan to remove PAC and Goodman tomorrow 07/30. This evening Meggan was noted to be hypoxemic to 84 on routine vitals; she did not feel shor t of breath. She was started on 2L NC, then titrated up to 4L NC. RR in the 20s. Currently Meggan states she feels well, she does not feel short of breath and she is not whe ezing. States her fever comes and goes as it has for the past 2 days, but does not feel feb rile now. Feels tired, but this is no worse than it has been for the past 2 days. Says she choked while having some water this evening, has been coughing intermittently since then. Exam: Last Vitals: BP 120/58 | Pulse 125 | Temp 39.3 C (102.7 F) | RR 28 | Ht 1.755 m (5' 9.0 9") | Wt 101.3 kg (223 lb 5.2 oz) | SpO2 96% | BMI 32.89 kg/(m^2) Gen: sitting up in bed, non-toxic appearing and NAD Lungs: CTA bilaterally CVS: tachycardic but no M/G/R appreciated On 4L O2 via facemask CXR 07/29/16: Official read pending, however appears clear Assessment / Plan: 1. MRSA bacteremia: Has met SIRS criteria for past 48 hours. No change in vitals other th an for tachypnea and O2 requirement, however lungs clear on exam CXR obtained, no areas of consolidation noted, clear. With known bacteremia concern for development of ARDS however f or now lungs clear, CXR clear. Will monitor closely. For line removal tomorrow. Continue vancomycin, cefepime. Juliette Horton MD Lluvia Perry POWER GENERATING PLANT OPERATOR - 07/29/2016 4:33 PM PST Daily NPP Note - Auto Transplant Admit [facility] Attending: Qamar Wang MD [facility] Physician: Constantin Link MD PCP: Aashish Hilton MD Benign Hematology: Jim Michael MD ([facility]) Pediatric Heme/Onc: Anh Moreland MD ([place]) Nephrology: Raghav Miller MD ([place]) Date of Admission: 07/15/2016 Conditioning regimen: BEAM Date of transplant: 07/21/2016 Reason for admission: Planned BEAM-conditioned auto PBSCT for HL 24-Hr Events/Daily Plan: -Relapsed HL: Admitted for BEAM auto PBSCT, currently Day +8 -Pancytopenia d/t conditioning chemo: Keep plts >20K d/t anticoagulation, standard Hct mariano sfusion parameters. Transfuse one unit platelets today. Transfuse to keep platelets >50K for PAC, Goodman removal 07/30. Order platelets to be on hold in OR. -Neutropenic fevers (first 07/28) +MRSA bacteremia (+07/28): CXR clear. F/u BCx x3 days (-07/31). Plan to remove PAC, Goodman 07/30. Continue Cefepime (07/28), Vancomycin (07/29) . ID following. -Tachycardia with fevers: HR up to 150s-160s while febrile. EKG c/w ST. Continue MIVF, rosalee tment as above. 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 Monitor for hemolysis flare. Mo nitor LDH, hapto, complement activity qMon, Thurs. -RLE DVT (first noted 07/04/15, persists on 07/16 doppler in R axial calf): Continue prophyl actic Lovenox QPM and keep plts >20K. HOLD Lovenox for PAC removal 07/30. -Mucositis Grade 2, d/t moderate pain, no ulceration: Started Dilaudid DIE CUTTING MACHINE OPERATOR 07/27, continue MIVF d/t decreased PO intake/orthostatic HoTN. -[place]: Mostly controlled with scheduled Benadryl, Zofran, and Zyprexa. Breakthrough controll ed with Ativan PRN -Orthostatic HoTN (first noted 07/20): Asymptomatic today. (07/23) BCx: NTD.Continue MIVF and PRN boluses if symptomatic. -Lytes: Standard electrolyte replacement orders. Replace potassium and phosphorus today. -Nutrition: Able to eat 100% x2 meals yesterday with 1.8L PO fluid intake. Continue MIVF. Subjective: Feeling better today. Gets chilly with fevers. Objective: Last Vitals: BP 117/60 | Pulse 150 | Temp 39.5 C (103.1 F) | RR 18 | Ht 1.755 m (5' 9.0 9") | Wt 101.3 kg (223 lb 5.2 oz) | SpO2 95% | BMI 32.89 kg/(m^2) 24 Hour Vital Min/Max: Systolic (24hrs), Av , Min:110 , Max:139 Diastolic (24hrs), Av, Min:53, Max:83 Pulse Min: 119 Max: 164 Temp Min: 37 C (98.6 F) Max: 39.5 C (103.1 F) Resp Min: 16 Max: 26 SpO2 Min: 90 % Max: 96 % Intake/Output Summary (Last 24 hours) at 07/29/16 1633 Last data filed at 07/29/16 1550 Gross per 24 hour Intake 5596.8 ml Output 2450 ml Net 3146.8 ml Physical Exam: General: This is a female in no acute distress. Sitting in bed. HEENT: PERRL. Sclerae anicteric. Mucosal ridging on right buccal mucosa and bilateral to ngue. Skin: No rash, lesions noted. Acneform rash on face. Chest: Lungs clear to auscultation bilat. CV: RRR, no murmurs. Abdomen: S/NT/ND with NABS. No HSM appreciated. Extremities: Pulses strong and equal bilaterally. No c/c/e. Neuro: Alert and oriented x 3. Grossly nonfocal exam. CVC: RCW Goodman in place w/o inflammation or induration. Dressing c/d/i Recent Labs 07/26/16232807/27/16233007/28/162326 NA 141 140 137 K 3.8 4.1 4.0 CL 108 106 103 BICARB 23 26 25 BUN 8 5* 4* CR 0.56* 0.61 0.69 GLU 98 91 94 CA 7.9* 7.8* 7.8* AST 9 4 5 ALT 11 11 10 AP 63 61 61 TBILI <0.1* 0.1* 0.4 TP 5.2* 5.1* 5.3* ALB 2.9* 2.8* 2.7* Recent Labs 07/20/16 23007/21/16 2314 07/22/16 2335 07/26/16232807/27/16 23307/28/16 2327 07/29/16 1542 WBC 1.55* 7.90 0.82* < > <0.10* <0.10* <0.10* -- RBC 2.29* 2.54* 2.53* < > 2.58* 2.28* 2.41* -- HB 6.9* 7.7* 7.7* < > 7.8* 7.0* 7.4* -- HCT 20.8* 22.7* 23.2* < > 23.5* 20.6* 21.2* -- PLT 135* 125* 90* < > 13* 33* 13* 34* NEUTROPERC 97.5* 98.3* 83.2* -- -- -- -- -- LYMPHPERC 1.9* 0.8* 16.8* -- -- -- -- -- MONOPERC 0.0* 0.0* 0.0* -- -- -- -- -- BASOPERC 0.0 0.1 0.0 -- -- -- -- -- EOSPERC 0.0* 0.0* 0.0* -- -- -- -- -- < > = values in this interval not displayed. Meds: Reviewed on rounds, see current MAR for medication list Past Medical History: Meggan Otero is a 20 y.o. 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, admit for autoBMT Local oncologist: Aashish Hilton MD ([facility]) Benign Hematology: Jim Michael MD ([facility]) Pediatric Heme/Onc: Anh Moreland MD ([place]) Nephrology: Raghav Miller MD ([place]) 04/2015 presented with flank pain CT C/A/P: 11 cm anterior mediastinal mass, pleural effusion & L supraclav adenopathy Needle bx: classical hodgkins, nodular sclerosing type Thoracentesis: reactive/benign BMBx: neg PET: bulky mediastinal mass, SUV 16; bilateral neck SUV 15; also R>L pleural effusion 05/10/15 began ABVE-PC (as per pediatric [id number]) via femoral line 05/16/15 presented with sepsis [...] L neck: classical Hodgkins Above therapy in [place] -> moved to [place] Continued on [facility]calizumab per benign heme [facility]) - genetic testing for aHUS PENDING GDP x3 06/2017 CR by PET Goodman placed GCSF stem cell mobilization: 7.3 x10^6 cd34/kg Hospitalization History: Hematology: #Relapsed HL Conditioning regimen: BEAM -Carmustine 300 mg/m IV on day -6 -Etoposide 200 mg/m IV daily on days -5, -4,- 3, and -1 -Cytarabine 400 mg/m daily on days -5, -4,- 3, and -1 -Melphalan 140 mg/m IV on day -1 Stem cell transplant -Day: +8 -Tolerated autologous product on 07/21/16. 7.3x10^6 per kg CD 34+ cells Post-BMT Plan: -Plan for Brentuximab maintenance starting ~6 wks post-BMT back home which improves EFS in high risk pts post-auto. She meets high risk criteria due to early relapse. #Pancytopenia d/t chemo -Antimicrobials as below -See supportive care #Supportive Care: Growth Factor: Due to begin daily Zarxio dosing on Day +5 (07/26) and continue until ANC > 1500 x 2 consecutive days. Labs: Continue to check CBC with diff daily Transfusion parameters: -Transfuse PRBCs for HCT <21% if asymptomatic OR <24% if symptomatic -Transfuse PPH for platelet count <20K (anticoagulation) or sooner PRN s/s active bleeding HEENT: #Recent [place] Tooth Extractions (~2-[address] CROSSING GUARD): Nearly resolved -NS rinses PRN Pulmonary: Pretransplant PFTs completed on 06/25/16 (at [facility]) showed FEV1 of 86% pr edicted, FVC of 90% predicted and DLCO of 50% predicted. No acute issues Cardiovascular: Pretransplant MUGA completed on 06/24/16 (at [facility]) showed a LVEF of 5 5%. #RLE DVT (first noted 07/04/15, persists on 07/16 doppler in R axial calf): Apixaban ROAD CROSSING GUARD -STOPPED Apixiban 5 mg BID on admission -Received Tx-dose Lovenox until plts <50K (07/15-07/25) -Lovenox 40 mg qpm while thrombocytopenic -See supportive care #Orthostatic HoTN (first noted 07/20): Sx improved with NS boluses but persistently Sx when getting OOB. (07/23) BCx NTD. -1L NS boluses PRN if asymptomatic -MIVF as below -Low threshold to start empiric ABx if worsens GI: #GERD: Pepcid ROAD CROSSING GUARD -Prilosec 40 mg daily #Mucositis: pain without ulcerations, grade 2 -Continue oral care with normal saline rinses frequently -Liquid medications as able -Transition to IV meds if worsening PO intake -Dilaudid DIE CUTTING MACHINE OPERATOR initiated 07/27 -MIVF as below #[place]: Controlled -Benadryl 25 mg PO q 6 hrs -Zofran IV/PO q 12 hrs -Zyprexa 10 mg qhs -Ativan, Haldol PRN Renal: #Atypical HUS: Ecalizumab ROAD CROSSING GUARD -Eculizumab q 2 weeks, next dose 08/09 -Monitor for hemolysis flare -Monitor LDH, hapto, complement activity qMon, Thurs Neuro/Psych: #Depression/Anxiety: Lexapro ROAD CROSSING GUARD -Lexapro 10 mg daily -Ativan PRN Infectious Disease: #Neutropenic fevers (first 07/28) +MRSA bacteremia (+07/28): CXR clear. ID following -F/u BCx x3 days (07/29-07/31). -Plan to remove PAC, Goodman 07/30 in OR with EGS. Keep platelets >50K, NPO p midnight -Continue Cefepime (07/28), d/t neutropenic fevers -Vancomycin (07/29) added with MRSA +BCx #Hx C. Diff Colitis -Flagyl prophy started on Day 0 (07/21-07/29) per Dr. Link -PO Vanco BID (07/29- ) switched per ID d/t nausea #Prophylaxis: Bacterial: As above Fungal: Fluconazole started day 0 and continues until Day +30 Viral: Valacyclovir started day +1; will switch to Acyclovir upon discharge and continue u ntil Day +365 PCP: Bactrim day of admission through day -1, then restarts around Day +30 to +40 (or Daps [id number] mg po daily if sulfa allergic), pending platelet counts >50K. PCP prophy to continue 6 mos post PBSCT Toxo: (06/17/16) Toxo neg. No further testing required Fluid/Nutrition/Lytes: #Nutrition: Regular diet, No Adriane's yogurt or Kefir #Fluid: NS @ 100 mL/hr d/t orthostatic HoTN #Lytes: -Continue to check chemistries daily -Replace per supportive care protocol. Disposition: Pt with relapsed HL, adm for auto PBSCT. Anticipate 3-4 week hospitalization. Lluvia Gonzalez NP [address] [facility] Mailcode: [facility] [place] [address] Qamar Hall MD - 07/29/2016 11:13 AM PST Leukemia/Lymphoma Inpatient Attending Progress Date: 07/29/2016 I have personally seen, examined, and discussed Meggan Otero with the CLAUDINE and I agree with the findings and recommendations as documented in the CLAUDINE note today. I have also perso rowdy reviewed all relevant clinical hx and data and formulated the management plan. See CLAUDINE note for details. S/Interval events: fever yesteday-started on cefepime. Remains febrile and cultures growing MRSA. Otherwwise no new events. Still with occasional loose stools and controlled nausea. O Last Vitals: BP 117/60 | Pulse 150 | Temp 39.5 C (103.1 F) | RR 18 | Ht 1.755 m (5' 9.0 9") | Wt 101.3 kg (223 lb 5.2 oz) | SpO2 95% | BMI 32.89 kg/(m^2) 24 Hour Vital Min/Max: Systolic (24hrs), Av , Min:110 , Max:139 Diastolic (24hrs), Av, Min:53, Max:83 Pulse Min: 119 Max: 164 Temp Min: 37 C (98.6 F) Max: 39.5 C (103.1 F) Resp Min: 16 Max: 26 SpO2 Min: 90 % Max: 96 % Intake/Output Summary (Last 24 hours) at 07/29/16 1613 Last data filed at 07/29/16 1550 Gross per 24 hour Intake 5636.8 ml Output 2450 ml Net 3186.8 ml Exam unchanged No murmurs Lab Results Component Value Date WBC <0.10 (L) 07/28/2016 RBC 2.41 (L) 07/28/2016 HCT 21.2 (L) 07/28/2016 HB 7.4 (L) 07/28/2016 MCV 88.0 07/28/2016 MCH 31.2 07/05/2016 MCHC 34.9 07/28/2016 PLT 13 (L) 07/28/2016 NEUTROPERC 07/28/2016 Comment: WBC <300; differential not performed. LYMPHPERC 07/28/2016 Comment: WBC <300; differential not performed. MONOPERC 07/28/2016 Comment: WBC <300; differential not performed. EOSPERC 07/28/2016 Comment: WBC <300; differential not performed. BASOPERC 07/28/2016 Comment: WBC <300; differential not performed. NEUTROPHILCO 07/28/2016 Comment: WBC <300; differential not performed. GLU 94 07/28/2016 BUN 4 (L) 07/28/2016 CR 0.69 07/28/2016 TP 5.3 (L) 07/28/2016 ALB 2.7 (L) 07/28/2016 CA 7.8 (L) 07/28/2016 TBILI 0.4 07/28/2016 AP 61 07/28/2016 AST 5 07/28/2016 NA 137 07/28/2016 K 4.0 07/28/2016 CL 103 07/28/2016 BICARB 25 07/28/2016 ALT 10 07/28/2016 CULTURE RESULT (no units) Date Value 07/23/2016 No growth to date. 07/23/2016 No growth to date. A/P: Meggan Otero is a 20 y.o. With relapsed HL admitted for BEAM auto. 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 Neutropenic fever with MRSA bacteremia: -vancomycin - daily cultures - continue cefepime - Remove goodman and PORT - TTE - consult ID - isolation 2. Hx of c-diff -continue flagyl 3. Atypical HUS -continue ecaluzimab (q 14 days)- no evidence of recurrent HUS 4. DVT: Continue LMWH (prophy dosing given thrombocytopenia) - keep plt > 20K 5. Pain control for mucositis -conitnue DIE CUTTING MACHINE OPERATOR today See CLAUDINE documentation from today for complete details. Supportive care as outlined in NPP note and our orders from today CODE: FULL QAMAR WANG MD coding consultant [facility] Center for Hematologic Malignancies [facility] Cancer Cherry Log [email or web address] [phone] amar Wang MD - 07/28/2016 11:16 AM PST Leukemia/Lymphoma Inpatient Attending Progress Date: 07/28/2016 I have personally seen, examined, and discussed Meggan Otero with the CLAUDINE and I agree with the findings and recommendations as documented in the CLAUDINE note today. I have also perso rowdy reviewed all relevant clinical hx and data and formulated the management plan. See CLAUDINE note for details. S/Interval events: mucositis pain better controlled with DIE CUTTING MACHINE OPERATOR. Maintaining po intake. Mild d iarrhea. No other new symptoms. O Last Vitals: BP 111/74 | Pulse 121 | Temp 37.1 C (98.8 F) | RR 18 | Ht 1.755 m (5' 9.09 ") | Wt 101.3 kg (223 lb 5.2 oz) | SpO2 98% | BMI 32.89 kg/(m^2) 24 Hour Vital Min/Max: Systolic (24hrs), Av , Min:83 , Max:119 Diastolic (24hrs), Av, Min:52, Max:74 Pulse Min: 100 Max: 153 Temp Min: 36.7 C (98.1 F) Max: 37.8 C (100 F) Resp Min: 16 Max: 20 SpO2 Min: 92 % Max: 100 % Intake/Output Summary (Last 24 hours) at 07/28/16 1116 Last data filed at 07/28/16 1036 Gross per 24 hour Intake 3875 ml Output 3875 ml Net 0 ml Exam stable as documented in CLAUDINE note Lab Results Component Value Date WBC <0.10 (L) 07/27/2016 RBC 2.28 (L) 07/27/2016 HCT 20.6 (L) 07/27/2016 HB 7.0 (L) 07/27/2016 MCV 90.4 07/27/2016 MCH 31.2 07/05/2016 MCHC 34.0 07/27/2016 PLT 33 (L) 07/27/2016 NEUTROPERC 07/27/2016 Comment: WBC <300; differential not performed. LYMPHPERC 07/27/2016 Comment: WBC <300; differential not performed. MONOPERC 07/27/2016 Comment: WBC <300; differential not performed. EOSPERC 07/27/2016 Comment: WBC <300; differential not performed. BASOPERC 07/27/2016 Comment: WBC <300; differential not performed. NEUTROPHILCO 07/27/2016 Comment: WBC <300; differential not performed. GLU 91 07/27/2016 BUN 5 (L) 07/27/2016 CR 0.61 07/27/2016 TP 5.1 (L) 07/27/2016 ALB 2.8 (L) 07/27/2016 CA 7.8 (L) 07/27/2016 TBILI 0.1 (L) 07/27/2016 AP 61 07/27/2016 AST 4 07/27/2016 NA 140 07/27/2016 K 4.1 07/27/2016 CL 106 07/27/2016 BICARB 26 07/27/2016 ALT 11 07/27/2016 CULTURE RESULT (no units) Date Value 07/23/2016 No growth to date. 07/23/2016 No growth to date. A/P: Meggan Otero is a 20 y.o. With relapsed HL admitted for BEAM auto. 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) Active Problems: HUS (hemolytic uremic syndrome), atypical (HCC) Hx of Clostridium difficile infection Chronic deep vein thrombosis (DVT) (HCC) Obesity, Class I, BMI 30-34.9 Immunocompromised state (HCC) Encounter for chemotherapy management Chemotherapy-induced nausea Mucositis Opiate management Neutropenia Anemia Thrombocytopenia hypoalbuminemia continue ecaluzimab (q 14 days)- no evidence of recurrent HUS Continue LMWH (prophy dosing given thrombocytopenia) - keep plt > 20K Pain control for mucositis -conitnue DIE CUTTING MACHINE OPERATOR today Counts at [facility]ernice See CLAUDINE documentation from today for complete details. Supportive care as outlined in NPP note and our orders from today including: -antiemetics -transfusion support- PRBCs today -electrolyte replacement -prophylactic antimicrobials CODE: FULL QAMAR WANG MD coding consultant [facility] Center for Hematologic Malignancies [facility] Cancer Cherry Log [email or web address] [phone] Lluvia Perry POWER GENERATING PLANT OPERATOR - 07/28/2016 10:32 AM PST Daily NPP Note - Auto Transplant Admit Center for Hematologic Malignancies Attending: Qamar Wang MD [facility] Physician: Constantin Link MD PCP: Aashish Hilton MD Benign Hematology: Jim Michael MD ([facility]) Pediatric Heme/Onc: Anh Moreland MD ([place]) Nephrology: Raghav Miller MD ([place]) Date of Admission: 07/15/2016 Conditioning regimen: BEAM Date of transplant: 07/21/2016 Reason for admission: Planned BEAM-conditioned auto PBSCT for HL 24-Hr Events/Daily Plan: -Relapsed HL: Admitted for BEAM auto PBSCT, currently Day +7 -Pancytopenia d/t conditioning chemo: Keep plts >20K d/t anticoagulation, standard Hct mariano sfusion parameters. Transfuse one unit PRBCs today. 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 Monitor for hemolysis flare. Mo nitor LDH, hapto, complement activity qMon, Thurs. -RLE DVT (first noted 07/04/15, persists on 07/16 doppler in R axial calf): Continue prophyl actic Lovenox QPM and keep plts >20K. -Mucositis Grade 2, d/t moderate pain, no ulceration: Stable today. Started Dilaudid DIE CUTTING MACHINE OPERATOR , continue MIVF d/t decreased PO intake/orthostatic HoTN. -[place]: Mostly controlled with scheduled Benadryl, Zofran, and Zyprexa. Breakthrough controll ed with Ativan PRN -Orthostatic HoTN (first noted 07/20): Asymptomatic today. (07/23) BCx: NTD. Discontinue mayda y orthostatic BP checks. Continue MIVF an PRN boluses if symptomatic. -Lytes: Standard electrolyte replacement orders. No replacements indicated today. -Nutrition: Able to eat 50-100% x2 meals yesterday with 1L PO fluid intake. Continue MIVF. Subjective: Continues to have pain with swallowing and eating, although attempting to eat ceral this morning. Had loose bowel movements yesterday but thinks it is improved today. No other new symptoms. Objective: Last Vitals: BP 111/74 | Pulse 121 | Temp 37.1 C (98.8 F) | RR 18 | Ht 1.755 m (5' 9.09 ") | Wt 101.3 kg (223 lb 5.2 oz) | SpO2 98% | BMI 32.89 kg/(m^2) 24 Hour Vital Min/Max: Systolic (24hrs), Av , Min:83 , Max:128 Diastolic (24hrs), Av, Min:52, Max:74 Pulse Min: 100 Max: 153 Temp Min: 36.7 C (98.1 F) Max: 37.8 C (100 F) Resp Min: 16 Max: 20 SpO2 Min: 92 % Max: 100 % Intake/Output Summary (Last 24 hours) at 07/28/16 1032 Last data filed at 07/28/16 0935 Gross per 24 hour Intake 3695 ml Output 3875 ml Net -180 ml Physical Exam: General: This is a female in no acute distress. Sitting up in bed, eating breakf ast. HEENT: PERRL. Sclerae anicteric. Mucosal ridging on right buccal mucosa and bilateral to ngue. Skin: No rash, lesions noted. Chest: Lungs clear to auscultation bilat. CV: RRR, no murmurs. Abdomen: S/NT/ND with NABS. No HSM appreciated. Extremities: Pulses strong and equal bilaterally. No c/c/e. Neuro: Alert and oriented x 3. Grossly nonfocal exam. CVC: RCW Goodman in place w/o inflammation or induration. Dressing c/d/i Recent Labs 07/25/16231607/26/16232807/27/16 233 NA 144 141 140 K 3.8 3.8 4.1 CL 110* 108 106 BICARB 25 23 26 BUN 7 8 5* CR 0.60 0.56* 0.61 GLU 98 98 91 CA 7.9* 7.9* 7.8* AST 7 9 4 ALT 11 11 11 AP 59 63 61 TBILI 0.1* <0.1* 0.1* TP 5.0* 5.2* 5.1* ALB 3.0* 2.9* 2.8* Recent Labs 07/20/16 23007/21/16231307/22/16 2335 07/25/16231607/26/16232807/27/16 2331 WBC 1.55* 7.90 0.82* < > <0.10* <0.10* <0.10* RBC 2.29* 2.54* 2.53* < > 2.46* 2.58* 2.28* HB 6.9* 7.7* 7.7* < > 7.6* 7.8* 7.0* HCT 20.8* 22.7* 23.2* < > 22.3* 23.5* 20.6* PLT 135* 125* 90* < > 29* 13* 33* NEUTROPERC 97.5* 98.3* 83.2* -- -- -- -- LYMPHPERC 1.9* 0.8* 16.8* -- -- -- -- MONOPERC 0.0* 0.0* 0.0* -- -- -- -- BASOPERC 0.0 0.1 0.0 -- -- -- -- EOSPERC 0.0* 0.0* 0.0* -- -- -- -- < > = values in this interval not displayed. Meds: Reviewed on rounds, see current MAR for medication list Past Medical History: Meggan Otero is a 20 y.o. 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, admit for autoBMT Local oncologist: Aashish Hilton MD ([facility]) Benign Hematology: Jim Michael MD ([facility]) Pediatric Heme/Onc: Anh Moreland MD ([place]) Nephrology: Raghav Miller MD ([place]) 04/2015 presented with flank pain CT C/A/P: 11 cm anterior mediastinal mass, pleural effusion & L supraclav adenopathy Needle bx: classical hodgkins, nodular sclerosing type Thoracentesis: reactive/benign BMBx: neg PET: bulky mediastinal mass, SUV 16; bilateral neck SUV 15; also R>L pleural effusion 05/10/15 began ABVE-PC (as per pediatric [id number]) via femoral line 05/16/15 presented with sepsis [...] L neck: classical Hodgkins Above therapy in [place] -> moved to [place] Continued on ecalizumab per benign heme ([facility]) - genetic testing for aHUS PENDING GDP x3 06/2017 CR by PET Goodman placed GCSF stem cell mobilization: 7.3 x10^6 cd34/kg Hospitalization History: Hematology: #Relapsed HL Conditioning regimen: BEAM -Carmustine 300 mg/m IV on day -6 -Etoposide 200 mg/m IV daily on days -5, -4,- 3, and -1 -Cytarabine 400 mg/m daily on days -5, -4,- 3, and -1 -Melphalan 140 mg/m IV on day -1 Stem cell transplant -Day: +7 -Tolerated autologous product on 07/21/16. 7.3x10^6 per kg CD 34+ cells Post-BMT Plan: -Plan for Brentuximab maintenance starting ~6 wks post-BMT back home which improves EFS in high risk pts post-auto. She meets high risk criteria due to early relapse. #Pancytopenia d/t chemo -Antimicrobials as below -See supportive care #Supportive Care: Growth Factor: Due to begin daily Zarxio dosing on Day +5 (07/26) and continue until ANC > 1500 x 2 consecutive days. Labs: Continue to check CBC with diff daily Transfusion parameters: -Transfuse PRBCs for HCT <21% if asymptomatic OR <24% if symptomatic -Transfuse PPH for platelet count <20K (anticoagulation) or sooner PRN s/s active bleeding HEENT: #Recent [place] Tooth Extractions (~2-[address] CROSSING GUARD): Nearly resolved -NS rinses PRN Pulmonary: Pretransplant PFTs completed on 06/25/16 (at [facility]) showed FEV1 of 86% pr edicted, FVC of 90% predicted and DLCO of 50% predicted. No acute issues Cardiovascular: Pretransplant MUGA completed on 06/24/16 (at [facility]) showed a LVEF of 5 5%. #RLE DVT (first noted 07/04/15, persists on 07/16 doppler in R axial calf): Apixaban ROAD CROSSING GUARD -STOPPED Apixiban 5 mg BID on admission -Received Tx-dose Lovenox until plts <50K (07/15-07/25) -Lovenox 40 mg qpm while thrombocytopenic -See supportive care #Orthostatic HoTN (first noted 07/20): Sx improved with NS boluses but persistently Sx when getting OOB. (07/23) BCx NTD. -1L NS boluses PRN if asymptomatic -MIVF as below -Low threshold to start empiric ABx if worsens GI: #GERD: Pepcid ROAD CROSSING GUARD -Prilosec 40 mg daily #Mucositis: pain without ulcerations, grade 2 -Continue oral care with normal saline rinses frequently -Liquid medications as able -Transition to IV meds if worsening PO intake -Dilaudid DIE CUTTING MACHINE OPERATOR initiated 07/27 -MIVF as below #[place]: Controlled -Benadryl 25 mg PO q 6 hrs -Zofran IV/PO q 12 hrs -Zyprexa 10 mg qhs -Ativan, Haldol PRN Renal: #Atypical HUS: Ecalizumab ROAD CROSSING GUARD -Eculizumab q 2 weeks, next dose 08/09 -Monitor for hemolysis flare -Monitor LDH, hapto, complement activity qMon, Thurs Neuro/Psych: #Depression/Anxiety: Lexapro ROAD CROSSING GUARD -Lexapro 10 mg daily -Ativan PRN Infectious Disease: No acute issues #Hx C. Diff Colitis -Flagyl prophy started on Day [address] Link #Prophylaxis: Bacterial: Levofloxacin + Flagyl (Hx C. Diff) -For first neutropenic fever, smith cx, CXR, d/c Levofloxacin and begin Cefepime for empiric broadspectrum coverage. Fungal: Fluconazole started day 0 and continues until Day +30 Viral: Valacyclovir started day +1; will switch to Acyclovir upon discharge and continue u ntil Day +365 PCP: Bactrim day of admission through day -1, then restarts around Day +30 to +40 (or Daps [id number] mg po daily if sulfa allergic), pending platelet counts >50K. PCP prophy to continue 6 mos post PBSCT Toxo: (06/17/16) Toxo neg. No further testing required Fluid/Nutrition/Lytes: #Nutrition: Regular diet, No Adriane's yogurt or Kefir #Fluid: NS @ 100 mL/hr d/t orthostatic HoTN #Lytes: -Continue to check chemistries daily -Replace per supportive care protocol. Disposition: Pt with relapsed HL, adm for auto PBSCT. Anticipate 3-4 week hospitalization. Lluvia Gonzalez NP [facility] [address] [facility] Mailcode: [id number] [place] [address] Qamar Hall MD - 07/27/2016 8:37 PM PST Leukemia/Lymphoma Inpatient Attending Progress Date: 07/27/2016 I have personally seen, examined, and discussed Meggan Otero with the CLAUDINE and I agree with the findings and recommendations as documented in the CLAUDINE note today. I have also perso rowdy reviewed all relevant clinical hx and data and formulated the management plan. See CLAUDNIE note for details. S/Interval events: worsening mucositis. No other issues. Po intake adequate. Afebrile. O Last Vitals: BP 96/59 | Pulse 105 | Temp 36.9 C (98.4 F) | RR 18 | Ht 1.755 m (5' 9.09" ) | Wt 101.7 kg (224 lb 3.3 oz) | SpO2 95% | BMI 33.02 kg/(m^2) 24 Hour Vital Min/Max: Systolic (24hrs), Av , Min:84 , Max:128 Diastolic (24hrs), Av, Min:55, Max:73 Pulse Min: 98 Max: 146 Temp Min: 36.6 C (97.9 F) Max: 37 C (98.6 F) Resp Min: 16 Max: 18 SpO2 Min: 92 % Max: 100 % Intake/Output Summary (Last 24 hours) at 07/27/162036 Last data filed at 07/27/161957 Gross per 24 hour Intake 3813 ml Output 3750 ml Net 63 ml +mucositis Remainder of exam stable as documented in CLAUDINE note Lab Results Component Value Date WBC <0.10 (L) 07/26/2016 RBC 2.58 (L) 07/26/2016 HCT 23.5 (L) 07/26/2016 HB 7.8 (L) 07/26/2016 MCV 91.1 07/26/2016 MCH 31.2 07/05/2016 MCHC 33.2 07/26/2016 PLT 13 (L) 07/26/2016 NEUTROPERC 07/26/2016 Comment: WBC <300; differential not performed. LYMPHPERC 07/26/2016 Comment: WBC <300; differential not performed. MONOPERC 07/26/2016 Comment: WBC <300; differential not performed. EOSPERC 07/26/2016 Comment: WBC <300; differential not performed. BASOPERC 07/26/2016 Comment: WBC <300; differential not performed. NEUTROPHILCO 07/26/2016 Comment: WBC <300; differential not performed. GLU 98 07/26/2016 BUN 8 07/26/2016 CR 0.56 (L) 07/26/2016 TP 5.2 (L) 07/26/2016 ALB 2.9 (L) 07/26/2016 CA 7.9 (L) 07/26/2016 TBILI <0.1 (L) 07/26/2016 AP 63 07/26/2016 AST 9 07/26/2016 NA 141 07/26/2016 K 3.8 07/26/2016 CL 108 07/26/2016 BICARB 23 07/26/2016 ALT 11 07/26/2016 CULTURE RESULT (no units) Date Value 07/23/2016 No growth to date. 07/23/2016 No growth to date. A/P: Meggan Otero is a 20 y.o. With relapsed HL admitted for BEAM auto. 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) Active Problems: HUS (hemolytic uremic syndrome), atypical (HCC) Hx of Clostridium difficile infection Chronic deep vein thrombosis (DVT) (HCC) Obesity, Class I, BMI 30-34.9 Immunocompromised state (HCC) Encounter for chemotherapy management Chemotherapy-induced nausea Mucositis Opiate management Neutropenia Anemia thrombocytopenia continue ecaluzimab (q 14 days)- no evidence of recurrent HUS Continue LMWH (prophy dosing started given thrombocytopenia) Pain control for mucositis -will add DIE CUTTING MACHINE OPERATOR today-reviewed with patient See CLAUDINE documentation from today for complete details. Supportive care as outlined in NPP note and our orders from today including: -antiemetics -transfusion support -electrolyte replacement -prophylactic antimicrobials CODE: FULL QAMAR WANG MD coding consultant [facility] Center for Hematologic Malignancies [facility] Cancer Cherry [email or web address] [phone] ain, Ignacio Bruce, MITA, MPAS - 07/27/2016 3:09 PM PST Daily NPP Note - Auto Transplant Admit Center for Hematologic Malignancies Attending: Kenyatta Wang MD [facility] Physician: Constantin Link MD PCP: Aashish Hilton MD Benign Hematology: Jim Michael MD ([facility]) Pediatric Heme/Onc: Anh Moreland MD ([place]) Nephrology: Raghav Miller MD ([place]) Date of Admission: 07/15/2016 Conditioning regimen: BEAM Date of transplant: 07/21/2016 Reason for admission: Planned BEAM-conditioned auto PBSCT for HL 24-Hr Events/Daily Plan: -Relapsed HL: Adm for BEAM auto PBSCT -Pancytopenia d/t conditioning chemo: Keep plts >20K d/t anticoagulation, standard Hct mariano sfusion parameters. No transfusions today. -Atypical HUS: Conts Eculizumab q 2 weeks, next dose 07/26 (ordered in [facility]). Monitor for h emolysis flare. Monitor LDH, hapto, complement activity qMon, Thurs. -RLE DVT (first noted 07/04/15, persists on 07/16 doppler in R axial calf): Plts 40 today, s o decreased Lovenox to 40 mg qpm and will keep plts >20K. 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 Has Ativan, Haldol PRN. -Orthostatic HoTN (first noted 07/20): Sx improved with NS boluses and MIVF but persistent w hen getting OOB quickly at times. Asymptomatic with orthostatic check this AM -(07/23) BCx: NTD -Increase MIVF to 100 mL/hr with NS boluses PRN -Low threshold to start empiric ABx if worsens -Lytes: WNL. Repletions PRN per standard supportive care orders Subjective: Feeling ok today - pain in mouth is much worse however able to swallow food ok - ate all meals yesterday Objective: Last Vitals: BP 128/68 | Pulse 121 | Temp 36.8 C (98.2 F) | RR 16 | Ht 1.755 m (5' 9.09 ") | Wt 101.7 kg (224 lb 3.3 oz) | SpO2 98% | BMI 33.02 kg/(m^2) 24 Hour Vital Min/Max: Systolic (24hrs), Av , Min:84 , Max:128 Diastolic (24hrs), Av, Min:55, Max:68 Pulse Min: 94 Max: 146 Temp Min: 36.6 C (97.9 F) Max: 36.8 C (98.2 F) Resp Min: 16 Max: 18 SpO2 Min: 92 % Max: 99 % Intake/Output Summary (Last 24 hours) at 07/27/16 1509 Last data filed at 07/27/16 1100 Gross per 24 hour Intake 3577 ml Output 2150 ml Net 1427 ml Physical Exam: General: This is a female in no acute distress. Sitting upright in bed. HEENT: PERRL. Sclerae anicteric. Mucosal ridging with ulcerations on the right buccal mu cosa Skin: No rash, lesions noted. Chest: Lungs clear to auscultation bilat. CV: RRR, no murmurs. Abdomen: S/NT/ND with NABS. No HSM appreciated. Extremities: Pulses strong and equal bilaterally. No c/c/e. Neuro: Alert and oriented x 3. Grossly nonfocal exam. CVC: RCW Goodman in place w/o inflammation or induration. Dressing c/d/i Recent Labs 07/24/16 2340 07/25/16 2317 07/26/16 2329 NA 141 144 141 K 3.5 3.8 3.8 CL 110* 110* 108 BICARB 24 25 23 BUN 8 7 8 CR 0.55* 0.60 0.56* GLU 92 98 98 CA 7.5* 7.9* 7.9* AST 6 7 9 ALT 11 11 11 AP 54 59 63 TBILI <0.1* 0.1* <0.1* TP 4.6* 5.0* 5.2* ALB 2.7* 3.0* 2.9* Recent Labs 07/20/16 2309 07/21/16 2314 07/22/16 2335 07/24/16 2340 07/25/16 2317 07/26/16 2329 WBC 1.55* 7.90 0.82* < > 0.13* <0.10* <0.10* RBC 2.29* 2.54* 2.53* < > 2.18* 2.46* 2.58* HB 6.9* 7.7* 7.7* < > 6.6* 7.6* 7.8* HCT 20.8* 22.7* 23.2* < > 20.2* 22.3* 23.5* PLT 135* 125* 90* < > 40* 29* 13* NEUTROPERC 97.5* 98.3* 83.2* -- -- -- -- LYMPHPERC 1.9* 0.8* 16.8* -- -- -- -- MONOPERC 0.0* 0.0* 0.0* -- -- -- -- BASOPERC 0.0 0.1 0.0 -- -- -- -- EOSPERC 0.0* 0.0* 0.0* -- -- -- -- < > = values in this interval not displayed. Meds: Reviewed on rounds, see current MAR for medication list Past Medical History: Meggan Otero is a 20 y.o. 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, admit for autoBMT Local oncologist: Aashish Hilton MD ([facility]) Benign Hematology: Jim Michael MD ([facility]) Pediatric Heme/Onc: Anh Moreland MD ([place]) Nephrology: Raghav Miller MD ([place]) 04/2015 presented with flank pain CT C/A/P: 11 cm anterior mediastinal mass, pleural effusion & L supraclav adenopathy Needle bx: classical hodgkins, nodular sclerosing type Thoracentesis: reactive/benign BMBx: neg PET: bulky mediastinal mass, SUV 16; bilateral neck SUV 15; also R>L pleural effusion 05/10/15 began ABVE-PC (as per pediatric [id number]) via femoral line 05/16/15 presented with sepsis [...] L neck: classical Hodgkins Above therapy in [place] -> moved to [place] Continued on ecalizumab per benign heme ([facility]) - genetic testing for aHUS PENDING GDP x3 06/2017 CR by PET Goodman placed GCSF stem cell mobilization: 7.3 x10^6 cd34/kg Hospitalization History: Hematology: #Relapsed HL Conditioning regimen: BEAM -Carmustine 300 mg/m IV on day -6 -Etoposide 200 mg/m IV daily on days -5, -4,- 3, and -1 -Cytarabine 400 mg/m daily on days -5, -4,- 3, and -1 -Melphalan 140 mg/m IV on day -1 Stem cell transplant -Day: +6 -Tolerated autologous product on 07/21/16. 7.3x10^6 per kg CD 34+ cells Post-BMT Plan: -Plan for Brentuximab maintenance starting ~6 wks post-BMT back home which improves EFS in high risk pts post-auto. She meets high risk criteria due to early relapse. #Pancytopenia d/t chemo -Antimicrobials as below -See supportive care #Supportive Care: Growth Factor: Due to begin daily Zarxio dosing on Day +5 (07/26) and continue until ANC > 1500 x 2 consecutive days. Labs: Continue to check CBC with diff daily Transfusion parameters: -Transfuse PRBCs for HCT <21% if asymptomatic OR <24% if symptomatic -Transfuse PPH for platelet count <20K (anticoagulation) or sooner PRN s/s active bleeding HEENT: #Recent [place] Tooth Extractions (~2-[address] CROSSING GUARD): Nearly resolved -NS rinses PRN Pulmonary: Pretransplant PFTs completed on 06/25/16 (at [facility]) showed FEV1 of 86% pr edicted, FVC of 90% predicted and DLCO of 50% predicted. No acute issues Cardiovascular: Pretransplant MUGA completed on 06/24/16 (at [facility]) showed a LVEF of 5 5%. #RLE DVT (first noted 07/04/15, persists on 07/16 doppler in R axial calf): Apixaban ROAD CROSSING GUARD -STOPPED Apixiban 5 mg BID on admission -Received Tx-dose Lovenox until plts <50K (07/15-07/25) -Lovenox 40 mg qpm while thrombocytopenic -See supportive care #Orthostatic HoTN (first noted 07/20): Sx improved with NS boluses but persistently Sx when getting OOB -1L NS boluses PRN; last given x2 on 07/24 -(07/23) BCx: NTD -Low threshold to start empiric ABx if worsens GI: #GERD: Pepcid ROAD CROSSING GUARD -Prilosec 40 mg daily #Mucositis - grade 2 (07/26) -Continue oral care with normal saline rinses frequently -Liquid medications as able -transition to IV if worsening PO intake #[place]: Controlled -Benadryl 25 mg PO q 6 hrs -Zofran IV/PO q 12 hrs -Zyprexa 10 mg qhs -Ativan, Haldol PRN Renal: #Atypical HUS: Ecalizumab ROAD CROSSING GUARD -Eculizumab q 2 weeks, next dose 07/26 -Monitor for hemolysis flare -Monitor LDH, hapto, complement activity qMon, Thurs Neuro/Psych: #Depression/Anxiety: Lexapro ROAD CROSSING GUARD -Lexapro 10 mg daily -Ativan PRN Infectious Disease: No acute issues #Hx C. Diff Colitis -Flagyl prophy started on Day [address] Link #Prophylaxis: Bacterial: Levofloxacin + Flagyl (Hx C. Diff) -For first neutropenic fever, smith cx, CXR, d/c Levofloxacin and begin Cefepime for empiric broadspectrum coverage. Fungal: Fluconazole started day 0 and continues until Day +30 Viral: Valacyclovir started day +1; will switch to Acyclovir upon discharge and continue u ntil Day +365 PCP: Bactrim day of admission through day -1, then restarts around Day +30 to +40 (or Daps [id number] mg po daily if sulfa allergic), pending platelet counts >50K. PCP prophy to continue 6 mos post PBSCT Toxo: (06/17/16) Toxo neg. No further testing required Fluid/Nutrition/Lytes: #Nutrition: Regular diet, No Adriane's yogurt or Kefir #Fluid: NS @ 100 mL/hr d/t orthostatic HoTN #Lytes: -Continue to check chemistries daily -Replace per supportive care protocol. Disposition: Pt with relapsed HL, adm for auto PBSCT. Anticipate 3-4 week hospitalization. JOSE RAMON Pemberton PA-C [facility] [id number] [facility] Mailcode: [id number] [place], [place] [id number] [phone] signed by Ignacio Decker PA-C,JOSE RAMON at 07/27/2016 3:27 PM PSTSpurg Qamar lamar MD - 07/26/2016 3:00 PM PSTFormatting of this note might be different from jocelyn tran original. Leukemia/Lymphoma Inpatient Attending Progress Date: 07/26/2016 1040 I have personally seen, examined, and discussed Meggan Otero with the CLAUDINE and I agree with the findings and recommendations as documented in the CLAUDINE note today. I have also perso rowdy reviewed all relevant clinical hx and data and formulated the management plan. See CLAUDINE note for details. S/Interval events: Overall is doing well. She has developed mouth sores requiring pain meds . Tolerating po. Diarrhea yesterday. No other complaints and ROS is negative. O Last Vitals: BP 110/64 | Pulse 102 | Temp 36.8 C (98.2 F) | RR 16 | Ht 1.755 m (5' 9.09 ") | Wt 101.7 kg (224 lb 3.3 oz) | SpO2 100% | BMI 33.02 kg/(m^2) 24 Hour Vital Min/Max: Systolic (24hrs), Av , Min:86 , Max:138 Diastolic (24hrs), Av, Min:58, Max:83 Pulse Min: 90 Max: 144 Temp Min: 36.8 C (98.2 F) Max: 37.6 C (99.7 F) Resp Min: 14 Max: 16 SpO2 Min: 96 % Max: 100 % Intake/Output Summary (Last 24 hours) at 07/26/16 1500 Last data filed at 07/26/16 1319 Gross per 24 hour Intake 2930 ml Output 2900 ml Net 30 ml Nad, pleasant, mouth with ulerations worse at b/l tongue, rr, cta b/l Lab Results Component Value Date WBC <0.10 (L) 07/25/2016 RBC 2.46 (L) 07/25/2016 HCT 22.3 (L) 07/25/2016 HB 7.6 (L) 07/25/2016 MCV 90.7 07/25/2016 MCH 31.2 07/05/2016 MCHC 34.1 07/25/2016 PLT 29 (L) 07/25/2016 NEUTROPERC 07/25/2016 Comment: WBC <300; differential not performed. LYMPHPERC 07/25/2016 Comment: WBC <300; differential not performed. MONOPERC 07/25/2016 Comment: WBC <300; differential not performed. EOSPERC 07/25/2016 Comment: WBC <300; differential not performed. BASOPERC 07/25/2016 Comment: WBC <300; differential not performed. NEUTROPHILCO 07/25/2016 Comment: WBC <300; differential not performed. GLU 98 07/25/2016 BUN 7 07/25/2016 CR 0.60 07/25/2016 TP 5.0 (L) 07/25/2016 ALB 3.0 (L) 07/25/2016 CA 7.9 (L) 07/25/2016 TBILI 0.1 (L) 07/25/2016 AP 59 07/25/2016 AST 7 07/25/2016 NA 144 07/25/2016 K 3.8 07/25/2016 CL 110 (H) 07/25/2016 BICARB 25 07/25/2016 ALT 11 07/25/2016 CULTURE RESULT (no units) Date Value 07/23/2016 No growth to date. 07/23/2016 No growth to date. A/P: Meggan Otero is a 20 y.o. With relapsed HL admitted for BEAM auto. 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 Receives next dose of ecaluzimab today (q 14 days)- no evidence of recurrent HUS Continue LMWH (prophy dosing started given thrombocytopenia) Pain control for mucositis (Gr. 2) See CLAUDINE documentation from today for complete details. Supportive care as outlined in NPP note and our orders from today including: -antiemetics -transfusion support -electrolyte replacement -prophylactic antimicrobials CODE: FULL QAMAR WANG MD coding consultant [facility] Center for Hematologic Malignancies [facility] Cancer Cherry Log [email or web address] [phone] ain, Ignacio Bruce PA-C, MPAS - 07/26/2016 1:18 PM PST Daily NPP Note - Auto Transplant Admit Center for Hematologic Malignancies Attending: Kenyatta Wang MD [facility] Physician: Constantin Link MD PCP: Aashish Hilton MD Benign Hematology: Jim Michael MD ([facility]) Pediatric Heme/Onc: Anh Moreland MD ([place]) Nephrology: Raghav Miller MD ([place]) Date of Admission: 07/15/2016 Conditioning regimen: BEAM Date of transplant: 07/21/2016 Reason for admission: Planned BEAM-conditioned auto PBSCT for HL 24-Hr Events/Daily Plan: -Relapsed HL: Adm for BEAM auto PBSCT -Pancytopenia d/t conditioning chemo: Keep plts >20K d/t anticoagulation, standard Hct mariano sfusion parameters. No transfusions today. -Atypical HUS: Conts Eculizumab q 2 weeks, next dose 07/26 (ordered in [facility]). Monitor for h emolysis flare. Monitor LDH, hapto, complement activity qMon, Thurs. -RLE DVT (first noted 07/04/15, persists on 07/16 doppler in R axial calf): Plts 40 today, s o decreased Lovenox to 40 mg qpm and will keep plts >20K. -Mucositis Grade 2: worsening overnight - requiring PO and IV pain meds, - all meds switche d to liquid 07/26 -[place]: Mostly controlled with scheduled Benadryl, Zofran, and Zyprexa but Ativan works best. Has Ativan, Haldol PRN. -Orthostatic HoTN (first noted 07/20): Sx improved with NS boluses and MIVF but persistent w hen getting OOB quickly at times. Asymptomatic with orthostatic check this AM -(07/23) BCx: NTD -Increase MIVF to 100 mL/hr with NS boluses PRN -Low threshold to start empiric ABx if worsens -Lytes: WNL. Repletions PRN per standard supportive care orders Subjective: Feeling ok today - having sore mouth and throat - no acid reflux Objective: Last Vitals: BP 110/64 | Pulse 102 | Temp 36.8 C (98.2 F) | RR 16 | Ht 1.755 m (5' 9.09 ") | Wt 101.7 kg (224 lb 3.3 oz) | SpO2 100% | BMI 33.02 kg/(m^2) 24 Hour Vital Min/Max: Systolic (24hrs), Av , Min:86 , Max:138 Diastolic (24hrs), Av, Min:58, Max:83 Pulse Min: 90 Max: 144 Temp Min: 36.8 C (98.2 F) Max: 37.6 C (99.7 F) Resp Min: 14 Max: 16 SpO2 Min: 96 % Max: 100 % Intake/Output Summary (Last 24 hours) at 07/26/16 1318 Last data filed at 07/26/16 1158 Gross per 24 hour Intake 3141.67 ml Output 3925 ml Net -783.33 ml Physical Exam: General: This is a female in no acute distress. Sitting upright in bed. HEENT: PERRL. Sclerae anicteric. Mucosa pink and moist without erythema or exudate. Skin: No rash, lesions noted. Chest: Lungs clear to auscultation bilat. CV: RRR, no murmurs. Abdomen: S/NT/ND with NABS. No HSM appreciated. Extremities: Pulses strong and equal bilaterally. No c/c/e. Neuro: Alert and oriented x 3. Grossly nonfocal exam. CVC: RCW Goodman in place w/o inflammation or induration. Dressing c/d/i Recent Labs 07/24/1614407/24/16233907/25/16 2317 NA 142 141 144 K 3.5 3.5 3.8 CL 110* 110* 110* BICARB 24 24 25 BUN 16 8 7 CR 0.60 0.55* 0.60 GLU 99 92 98 CA 7.5* 7.5* 7.9* AST 5 6 7 ALT 10 11 11 AP 61 54 59 TBILI 0.2* <0.1* 0.1* TP 4.7* 4.6* 5.0* ALB 2.8* 2.7* 3.0* Recent Labs 07/20/16 2309 07/21/16 2314 07/22/16 2335 07/24/165 07/24/16 2340 07/25/16 2317 WBC 1.55* 7.90 0.82* 0.28* 0.13* <0.10* RBC 2.29* 2.54* 2.53* 2.43* 2.18* 2.46* HB 6.9* 7.7* 7.7* 7.4* 6.6* 7.6* HCT 20.8* 22.7* 23.2* 22.3* 20.2* 22.3* PLT 135* 125* 90* 61* 40* 29* NEUTROPERC 97.5* 98.3* 83.2* -- -- -- LYMPHPERC 1.9* 0.8* 16.8* -- -- -- MONOPERC 0.0* 0.0* 0.0* -- -- -- BASOPERC 0.0 0.1 0.0 -- -- -- EOSPERC 0.0* 0.0* 0.0* -- -- -- Meds: Reviewed on rounds, see current MAR for medication list Past Medical History: Meggan Otero is a 20 y.o. 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, admit for autoBMT Local oncologist: Aashish Hilton MD ([facility]) Benign Hematology: Jim Michael MD ([facility]) Pediatric Heme/Onc: Anh Moreland MD ([place]) Nephrology: Raghav Miller MD ([place]) 04/[address] presented with flank [address] C/A/P: 11 cm anterior mediastinal mass, pleural effusion & L supraclav adenopathy Needle bx: classical hodgkins, nodular sclerosing type Thoracentesis: reactive/benign BMBx: neg PET: bulky mediastinal mass, SUV 16; bilateral neck SUV 15; also R>L pleural effusion 05/10/15 began ABVE-PC (as per pediatric [id number]) via femoral line 05/16/15 presented with sepsis [...] L neck: classical Hodgkins Above therapy in [place] -> moved to [place] Continued on ecalizumab per benign heme ([facility]) - genetic testing for aHUS PENDING GDP x3 06/2017 CR by PET Goodman placed GCSF stem cell mobilization: 7.3 x10^6 cd34/kg Hospitalization History: Hematology: #Relapsed HL Conditioning regimen: BEAM -Carmustine 300 mg/m IV on day -6 -Etoposide 200 mg/m IV daily on days -5, -4,- 3, and -1 -Cytarabine 400 mg/m daily on days -5, -4,- 3, and -1 -Melphalan 140 mg/m IV on day -1 Stem cell transplant -Day: +5 -Tolerated autologous product on 07/21/16. 7.3x10^6 per kg CD 34+ cells Post-BMT Plan: -Plan for Brentuximab maintenance starting ~6 wks post-BMT back home which improves EFS in high risk pts post-auto. She meets high risk criteria due to early relapse. #Pancytopenia d/t chemo -Antimicrobials as below -See supportive care #Supportive Care: Growth Factor: Due to begin daily Zarxio dosing on Day +5 (07/26) and continue until ANC > 1500 x 2 consecutive days. Labs: Continue to check CBC with diff daily Transfusion parameters: -Transfuse PRBCs for HCT <21% if asymptomatic OR <24% if symptomatic -Transfuse PPH for platelet count <20K (anticoagulation) or sooner PRN s/s active bleeding HEENT: #Recent [place] Tooth Extractions (~2-[address]ING GUARD): Nearly resolved -NS rinses PRN Pulmonary: Pretransplant PFTs completed on 06/25/16 (at [facility]) showed FEV1 of 86% pr edicted, FVC of 90% predicted and DLCO of 50% predicted. No acute issues Cardiovascular: Pretransplant MUGA completed on 06/24/16 (at [facility]) showed a LVEF of 5 5%. #RLE DVT (first noted 07/04/15, persists on 07/16 doppler in R axial calf): Apixaban ROAD CROSSING GUARD -STOPPED Apixiban 5 mg BID on admission -Received Tx-dose Lovenox until plts <50K (07/15-07/25) -Lovenox 40 mg qpm while thrombocytopenic -See supportive care #Orthostatic HoTN (first noted 07/20): Sx improved with NS boluses but persistently Sx when getting OOB -1L NS boluses PRN; last given x2 on 07/24 -(07/23) BCx: NTD -Low threshold to start empiric ABx if worsens GI: #GERD: Pepcid ROAD CROSSING GUARD -Prilosec 40 mg daily #Mucositis - grade 2 (07/26) -Continue oral care with normal saline rinses frequently -Liquid medications as able -transition to IV if worsening PO intake #[place]: Controlled -Benadryl 25 mg PO q 6 hrs -Zofran IV/PO q 12 hrs -Zyprexa 10 mg qhs -Ativan, Haldol PRN Renal: #Atypical HUS: Ecalizumab ROAD CROSSING GUARD -Eculizumab q 2 weeks, next dose 07/26 -Monitor for hemolysis flare -Monitor LDH, hapto, complement activity qMon, Thurs Neuro/Psych: #Depression/Anxiety: Lexapro ROAD CROSSING GUARD -Lexapro 10 mg daily -Ativan PRN Infectious Disease: No acute issues #Hx C. Diff Colitis -Flagyl prophy started on Day [address] Link #Prophylaxis: Bacterial: Levofloxacin + Flagyl (Hx C. Diff) -For first neutropenic fever, smith cx, CXR, d/c Levofloxacin and begin Cefepime for empiric broadspectrum coverage. Fungal: Fluconazole started day 0 and continues until Day +30 Viral: Valacyclovir started day +1; will switch to Acyclovir upon discharge and continue u ntil Day +365 PCP: Bactrim day of admission through day -1, then restarts around Day +30 to +40 (or Daps [id number] mg po daily if sulfa allergic), pending platelet counts >50K. PCP prophy to continue 6 mos post PBSCT Toxo: (06/17/16) Toxo neg. No further testing required Fluid/Nutrition/Lytes: #Nutrition: Regular diet, No Adriane's yogurt or Kefir #Fluid: NS @ 100 mL/hr d/t orthostatic HoTN #Lytes: -Continue to check chemistries daily -Replace per supportive care protocol. Disposition: Pt with relapsed HL, adm for auto PBSCT. Anticipate 3-4 week hospitalization. Ignacio Decker PA-C, JOSE RAMON [facility] [id number] [facility] Mailcode: [id number] [place] [address] ary Pérez MD - 07/25/2016 1:53 PM PST [facility] Inpatient Service Inpatient Attending Progress Note Date: 07/25/2016 Day: 10. Diagnosis: Hodgkin's Lymphoma I rounded today, 07/25/2016,in conjunction with the Advanced Practice Provider. I saw the p atient, reviewed the history and relevant studies and developed an assessment and plan. Juventino se see the Advanced Practice Provider documentation from today for the details regarding the assessment and plan. Hospital Course Summary: Meggan Otero is a 20 y.o. F w/ hx of relapsed classical Hodgkin's Lymphoma complicated by atypical HUS who is admitted for BEAM-conditioned Auto SCT, currently day +4. 04/2015 - presented with flank pain CT C/A/P: 11cm anterior mediastinal mass, pleural effusion & L supraclavian adenopathy. Needle bx: classical hodgkins, nodular sclerosing type Thoracentesis: reactive/benign BMBx: neg PET: bulky mediastinal mass, SUV 16; bilateral neck SUV 15; also R>L pleural effusion 05/10/15 began ABVE-PC (as per pediatric [id number]) via femoral line 05/16/15 presented with sepsis [...] n/a) 06/18/15 A(B)VE-PC #2 (omit bleo) - complicated by neutropenic fever/admit, recurrent hemopt ysis, decubitus ulcer; DVT R popliteal 07/14/15 A(B)VE-PC #3 - complicated by neutropenic fever 08/11/15 A(B)VE-PC #4 - complicated by neutropenic fever 08/2015 CR by PET [...] 03/2016 surgical bx L neck: classical Hodgkins - Above therapy in [place] -> moved to [facility]. Continued on ecalizumab per benign heme ([facility]) - genetic testing for aHUS PENDING GDP x3 06/2017 CR by PET - Goodman placed - GCSF stem cell mobilization: 7.3 x10^6 cd34/kg Overnight/Subjective: No acute events overnight. Antiemetics switched to scheduled IV zofran and benadryl, ativan for breakthrough. Encouraged to pre-medicate ativan for nausea control prior to meals. Less dizzy when standing up. Required transfusion of PRBC overnight for crit <21. Exam: Last Vitals: BP 113/73 | Pulse 122 | Temp 36.8 C (98.2 F) | RR 16 | Ht 1.755 m (5' 9.09 ") | Wt 101.7 kg (224 lb 3.3 oz) | SpO2 100% | BMI 33.02 kg/(m^2) 24 Hour Vital Min/Max: Systolic (24hrs), Av , Min:100 , Max:131 Diastolic (24hrs), Av, Min:52, Max:88 Pulse Min: 92 Max: 125 Temp Min: 36.5 C (97.7 F) Max: 37.1 C (98.8 F) Resp Min: 16 Max: 18 SpO2 Min: 98 % Max: 100 % Intake/Output Summary (Last 24 hours) at 07/25/16 1353 Last data filed at 07/25/16 1153 Gross per 24 hour Intake 3519.17 ml Output 4250 ml Net -730.83 ml General: Looks well and looks comfortable Skin: No rash and no catheter exit site tenderness Eyes: Normal, PERRLA and EOMI Mouth: Normal mucosa and no oral lesions Chest: Clear to auscultation Heart: RRR, no murmur, S1/S2 normal Abdomen: Soft and nontender without masses or hepatosplenomegaly Extrem: No pretibial/pedal edema Neuro: Alert, oriented x 3, motor/sens non-focal Lab/X-ray findings: Chemistries: Last 72 Hours (or 3 results): Recent Labs 07/22/16233407/24/165 07/24/16 2340 NA 142 142 141 K 3.7 3.5 3.5 CL 108 110* 110* BICARB 26 24 24 BUN 19 16 8 CR 0.69 0.60 0.55* GLU 87 99 92 CA 7.6* 7.5* 7.5* MG 2.2 2.0 1.9 PO4 3.4 2.8 2.4 Liver Tests: Last 72 hours (or 3 results) Recent Labs 07/22/16233407/24/165 07/24/16 2340 AST 11 5 6 ALT 14 10 11 TBILI 0.2* 0.2* <0.1* AP 69 61 54 ALB 3.0* 2.8* 2.7* TP 5.1* 4.7* 4.6* CBC with diff last 72 hours (or 3 results) Recent Labs 07/22/16233407/24/16 0145 07/24/16 2340 WBC 0.82* 0.28* 0.13* HB 7.7* 7.4* 6.6* HCT 23.2* 22.3* 20.2* PLT 90* 61* 40* NEUTROPERC 83.2* -- -- LYMPHPERC 16.8* -- -- MONOPERC 0.0* -- -- BASOPERC 0.0 -- -- EOSPERC 0.0* -- -- Assessment: Meggan Otero is a 20 y.o. F w/ hx of relapsed classical Hodgkin's Lymphoma complicated by atypical HUS who is admitted for BEAM-conditioned Auto SCT, currently day +4. Plan:Relapsed classical Hodgkin's Lymphoma - Nodular sclerosing type - Admit for BEAM-conditioned Auto SCT - day +4 BEAM Prep Carmustine (BCNU, 300 mg/m2) day -6 Etoposide (200 mg/m2) day -5 - 2 Cytarabine (400 mg/m2) day -5 - 2 Melphalan (140 mg/m2) day -1 Post-BMT plan includes maintenance Brentuximab ~six weeks after BMT ID Prophylaxis - Antibacterial: Levofloxacin - Day -1 (07/20/16). - Antiviral: Valacyclovir - Day +1 (07/22/16). - Antifungal: Fluconazole - Day 0 (07/21/16). Atypical HUS - Ecaluzimuab every 14 days - 07/26 dose scheduled - LDH, haptoglobin, complement activity every Mon/Thurs Hx of multiple DVTs - 07/16 - R Axial calf vein DVT - Tx dose of LMWH if Plt > 50k; Prophy dose if Plt <50k; platelet tx to keep Plt >20k - swi tched to prophy dosing today Hx of Cdiff - Metronidazole while on abx DISCHARGE NEEDS/PLAN Anticipate discharge with recovery of counts. Will return to [place]. Mary Pérez MD Pager: [phone] [facility] DEPARTMENT: [id number]- [facility] Place of Service:- Inpatient Date of Service: 07/25/2016 Suggested CPT:34609 - Subsequent, Detailed/High complex Vandana Chance FNP - 07/25/2016 11:09 AM PSTFo rmatting of this note might be different from the original. Daily NPP Note - Auto Transplant Admit [facility] Attending: Mary Pérez MD [facility] Physician: Constantin Link MD PCP: Aashish Hilton MD Benign Hematology: Jim Michael MD ([facility]) Pediatric Heme/Onc: Anh Moreland MD ([place]) Nephrology: Raghav Miller MD ([place]) Date of Admission: 07/15/2016 Conditioning regimen: BEAM Date of transplant: 07/21/2016 Reason for admission: Planned BEAM-conditioned auto PBSCT for HL 24-Hr Events/Daily Plan: -Relapsed HL: Adm for BEAM auto PBSCT -Pancytopenia d/t conditioning chemo: Keep plts >20K d/t anticoagulation, standard Hct mariano sfusion parameters. Transfused 1 unit PRBCs today -Atypical HUS: Conts Eculizumab q 2 weeks, next dose 07/26 (ordered in [facility]). Monitor for h emolysis flare. Monitor LDH, hapto, complement activity qMon, Thurs. -RLE DVT (first noted 07/04/15, persists on 07/16 doppler in R axial calf): Plts 40 today, s o decreased Lovenox to 40 mg qpm and will keep plts >20K. -[place]: Mostly controlled with scheduled Benadryl, Zofran, and Zyprexa but Ativan works best. Has Ativan, Haldol PRN. -Orthostatic HoTN (first noted 07/20): Sx improved with NS boluses and MIVF but persistent w hen getting OOB quickly at times. Was mildly Sx with orthostatic VS today. -(07/23) BCx: NTD -Increase MIVF to 100 mL/hr with NS boluses PRN -Low threshold to start empiric ABx if worsens -Lytes: WNL. Repletions PRN per standard supportive care orders Subjective: Nausea relatively controlled, Ativan still works best. Wasn't dizzy when getti ng out of bed this morning, but was a little dizzy when she had her orthostatic vitals taken . Objective: Last Vitals: BP 120/53 | Pulse 125 | Temp 37 C (98.6 F) | RR 16 | Ht 1.755 m (5' 9.09") | Wt 101.7 kg (224 lb 3.3 oz) | SpO2 100% | BMI 33.02 kg/(m^2) 24 Hour Vital Min/Max: Systolic (24hrs), Av , Min:89 , Max:131 Diastolic (24hrs), Av, Min:46, Max:88 Pulse Min: 95 Max: 162 Temp Min: 36.5 C (97.7 F) Max: 37.4 C (99.3 F) Resp Min: 16 Max: 18 SpO2 Min: 98 % Max: 100 % Intake/Output Summary (Last 24 hours) at 07/25/16 1109 Last data filed at 07/25/16 1030 Gross per 24 hour Intake 4030 ml Output 3800 ml Net 230 ml Physical Exam: General: This is a female in no acute distress. Sitting upright in bed. HEENT: PERRL. Sclerae anicteric. Mucosa pink and moist without erythema or exudate. Skin: No rash, lesions noted. Chest: Lungs clear to auscultation bilat. CV: RRR, no murmurs. Abdomen: S/NT/ND with NABS. No HSM appreciated. Extremities: Pulses strong and equal bilaterally. No c/c/e. Neuro: Alert and oriented x 3. Grossly nonfocal exam. CVC: RCW Goodman in place w/o inflammation or induration. Dressing c/d/i Recent Labs 07/22/16 23307/24/1614407/24/16 2340 NA 142 142 141 K 3.7 3.5 3.5 CL 108 110* 110* BICARB 26 24 24 BUN 19 16 8 CR 0.69 0.60 0.55* GLU 87 99 92 CA 7.6* 7.5* 7.5* AST 11 5 6 ALT 14 10 11 AP 69 61 54 TBILI 0.2* 0.2* <0.1* TP 5.1* 4.7* 4.6* ALB 3.0* 2.8* 2.7* Recent Labs 07/20/16 23007/21/16 2314 07/22/16 2335 07/24/165 07/24/16 2340 WBC 1.55* 7.90 0.82* 0.28* 0.13* RBC 2.29* 2.54* 2.53* 2.43* 2.18* HB 6.9* 7.7* 7.7* 7.4* 6.6* HCT 20.8* 22.7* 23.2* 22.3* 20.2* PLT 135* 125* 90* 61* 40* NEUTROPERC 97.5* 98.3* 83.2* -- -- LYMPHPERC 1.9* 0.8* 16.8* -- -- MONOPERC 0.0* 0.0* 0.0* -- -- BASOPERC 0.0 0.1 0.0 -- -- EOSPERC 0.0* 0.0* 0.0* -- -- Meds: Reviewed on rounds, see current MAR for medication list Past Medical History: Meggan Otero is a 20 y.o. 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, admit for autoBMT Local oncologist: Aashish Hilton MD ([facility]) Benign Hematology: Jim Michael MD ([facility]) Pediatric Heme/Onc: Anh Moreland MD ([place]) Nephrology: Raghav Miller MD ([place]) 04/2015 presented with flank pain CT C/A/P: 11 cm anterior mediastinal mass, pleural effusion & L supraclav adenopathy Needle bx: classical hodgkins, nodular sclerosing type Thoracentesis: reactive/benign BMBx: neg PET: bulky mediastinal mass, SUV 16; bilateral neck SUV 15; also R>L pleural effusion 05/10/15 began ABVE-PC (as per pediatric [id number]) via femoral line 05/16/15 presented with sepsis [...] L neck: classical Hodgkins Above therapy in [place] -> moved to [place] Continued on ecalizumab per benign heme [facility]) - genetic testing for aHUS PENDING GDP x3 06/2017 CR by PET Goodman placed GCSF stem cell mobilization: 7.3 x10^6 cd34/kg Hospitalization History: Hematology: #Relapsed HL Conditioning regimen: BEAM -Carmustine 300 mg/m IV on day -6 -Etoposide 200 mg/m IV daily on days -5, -4,- 3, and -1 -Cytarabine 400 mg/m daily on days -5, -4,- 3, and -1 -Melphalan 140 mg/m IV on day -1 Stem cell transplant -Day: +4 -Tolerated autologous product on 07/21/16. 7.3x10^6 per kg CD 34+ cells Post-BMT Plan: -Plan for Brentuximab maintenance starting ~6 wks post-BMT back home which improves EFS in high risk pts post-auto. She meets high risk criteria due to early relapse. #Pancytopenia d/t chemo -Antimicrobials as below -See supportive care #Supportive Care: Growth Factor: Due to begin daily Zarxio dosing on Day +5 (07/26) and continue until ANC > 1500 x 2 consecutive days. Labs: Continue to check CBC with diff daily Transfusion parameters: -Transfuse PRBCs for HCT <21% if asymptomatic OR <24% if symptomatic -Transfuse PPH for platelet count <20K (anticoagulation) or sooner PRN s/s active bleeding HEENT: #Recent [place] Tooth Extractions (~2-[address] CROSSING GUARD): Nearly resolved -NS rinses PRN Pulmonary: Pretransplant PFTs completed on 06/25/16 (at [facility]) showed FEV1 of 86% pr edicted, FVC of 90% predicted and DLCO of 50% predicted. No acute issues Cardiovascular: Pretransplant MUGA completed on 06/24/16 (at [facility]) showed a LVEF of 5 5%. #RLE DVT (first noted 07/04/15, persists on 07/16 doppler in R axial calf): Apixaban ROAD CROSSING GUARD -STOPPED Apixiban 5 mg BID on admission -Received Tx-dose Lovenox until plts <50K (07/15-07/25) -Lovenox 40 mg qpm while thrombocytopenic -See supportive care #Orthostatic HoTN (first noted 07/20): Sx improved with NS boluses but persistently Sx when getting OOB -1L NS boluses PRN; last given x2 on 07/24 -(07/23) BCx: NTD -Low threshold to start empiric ABx if worsens GI: #GERD: Pepcid ROAD CROSSING GUARD -Prilosec 40 mg daily #Risk for Mucositis: No e/o mucositis currently -Continue oral care with normal saline rinses frequently #[place]: Controlled -Benadryl 25 mg PO q 6 hrs -Zofran IV/PO q 12 hrs -Zyprexa 10 mg qhs -Ativan, Haldol PRN Renal: #Atypical HUS: Ecalizumab ROAD CROSSING GUARD -Eculizumab q 2 weeks, next dose 07/26 -Monitor for hemolysis flare -Monitor LDH, hapto, complement activity qMon, Thurs Neuro/Psych: #Depression/Anxiety: Lexapro ROAD CROSSING GUARD -Lexapro 10 mg daily -Ativan PRN Infectious Disease: No acute issues #Hx C. Diff Colitis -Flagyl prophy started on Day [address] Link #Prophylaxis: Bacterial: Levofloxacin + Flagyl (Hx C. Diff) -For first neutropenic fever, smith cx, CXR, d/c Levofloxacin and begin Cefepime for empiric broadspectrum coverage. Fungal: Fluconazole started day 0 and continues until Day +30 Viral: Valacyclovir started day +1; will switch to Acyclovir upon discharge and continue u ntil Day +365 PCP: Bactrim day of admission through day -1, then restarts around Day +30 to +40 (or Daps [id number] mg po daily if sulfa allergic), pending platelet counts >50K. PCP prophy to continue 6 mos post PBSCT Toxo: (06/17/16) Toxo neg. No further testing required Fluid/Nutrition/Lytes: #Nutrition: Regular diet, No Adriane's yogurt or Kefir #Fluid: NS @ 100 mL/hr d/t orthostatic HoTN #Lytes: -Continue to check chemistries daily -Replace per supportive care protocol. Disposition: Pt with relapsed HL, adm for auto PBSCT. Anticipate 3-4 week hospitalization. MORENA Marshall [facility] [id number] [facility] Mailcode: [facility] [place] [address] russell, MORENA Benz - 07/24/2016 3:43 PM PST Daily NPP Note - Auto Transplant Admit [facility] Attending: Mary Pérez MD [facility] Physician: Constantin Link MD PCP: Aashish Hilton MD Benign Hematology: Jim Michael MD ([facility]) Pediatric Heme/Onc: Anh Moreland MD ([place]) Nephrology: Raghav Miller MD ([place]) Date of Admission: 07/15/2016 Conditioning regimen: BEAM Date of transplant: 07/21/2016 Reason for admission: Planned BEAM-conditioned auto PBSCT for HL 24-Hr Events/Daily Plan: -Relapsed HL: Adm for BEAM auto PBSCT -Pancytopenia d/t conditioning chemo: Above standard transfusion threshold. -Atypical HUS: Conts Eculizumab q 2 weeks, next dose 07/26 (ordered in [facility]). Monitor for h emolysis flare. Monitor LDH, hapto, complement activity qMon, Thurs. -RLE DVT (first noted 07/04/15, persists on 07/16 doppler in R axial calf): Apixaban stopped on admission. Conts Tx-dose Lovenox until plts <50K, then decrease to prophy dose Lovenox a nd keep plts >20K. -[place]: Improved with scheduled Benadryl and Zofran. Start scheduled Zyprexa 10 mg qhs. -Orthostatic HoTN (first noted 07/20): Sx improved with 2L NS boluses but persistent when ge tting OOB quickly today. -(07/23) BCx: NTD -MIVF @ 75 mL/hr with NS boluses PRN -Low threshold to start empiric ABx if persists -Lytes: WNL. Repletions PRN per standard supportive care orders Subjective: Nausea relatively controlled. Still dizzy when getting out of bed. Objective: Last Vitals: BP 103/47 | Pulse 142 | Temp 36.8 C (98.2 F) | RR 18 | Ht 1.755 m (5' 9.09 ") | Wt 99.2 kg (218 lb 11.1 oz) | SpO2 100% | BMI 32.21 kg/(m^2) 24 Hour Vital Min/Max: Systolic (24hrs), Av , Min:89 , Max:125 Diastolic (24hrs), Av, Min:45, Max:74 Pulse Min: 88 Max: 162 Temp Min: 36.5 C (97.7 F) Max: 37.4 C (99.3 F) Resp Min: 16 Max: 18 SpO2 Min: 98 % Max: 100 % Intake/Output Summary (Last 24 hours) at 07/24/16 1543 Last data filed at 07/24/16 1400 Gross per 24 hour Intake 3040 ml Output 1600 ml Net 1440 ml Physical Exam: General: This is a female in no acute distress. Sitting up in bed. HEENT: PERRL. Sclerae anicteric. Mucosa pink and moist without erythema or exudate. Skin: No rash, lesions noted. Chest: Lungs clear to auscultation bilat. CV: RRR, no murmurs. Abdomen: S/NT/ND with NABS. No HSM appreciated. Extremities: Pulses strong and equal bilaterally. No c/c/e. Neuro: Alert and oriented x 3. Grossly nonfocal exam. CVC: RCW Goodman in place w/o inflammation or induration. Dressing c/d/i Recent Labs 07/21/16 2314 07/22/16 2335 07/24/16 0145 NA 141 142 142 K 3.7 3.7 3.5 CL 107 108 110* BICARB 24 26 24 BUN 15 19 16 CR 0.56* 0.69 0.60 GLU 104* 87 99 CA 7.4* 7.6* 7.5* AST 25 11 5 ALT 15 14 10 AP 63 69 61 TBILI 0.2* 0.2* 0.2* TP 5.2* 5.1* 4.7* ALB 3.0* 3.0* 2.8* Recent Labs 07/20/16 2309 07/21/16 2314 07/22/16 2335 07/24/16 0145 WBC 1.55* 7.90 0.82* 0.28* RBC 2.29* 2.54* 2.53* 2.43* HB 6.9* 7.7* 7.7* 7.4* HCT 20.8* 22.7* 23.2* 22.3* PLT 135* 125* 90* 61* NEUTROPERC 97.5* 98.3* 83.2* -- LYMPHPERC 1.9* 0.8* 16.8* -- MONOPERC 0.0* 0.0* 0.0* -- BASOPERC 0.0 0.1 0.0 -- EOSPERC 0.0* 0.0* 0.0* -- Meds: Reviewed on rounds, see current MAR for medication list Past Medical History: Meggan Otero is a 20 y.o. 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, admit for autoBMT Local oncologist: Aashish Hilton MD ([facility]) Benign Hematology: Jim Michael MD ([facility]) Pediatric Heme/Onc: Anh Moreland MD ([place]) Nephrology: Raghav Miller MD ([place]) 04/2015 presented with flank pain CT C/A/P: 11 cm anterior mediastinal mass, pleural effusion & L supraclav adenopathy Needle bx: classical hodgkins, nodular sclerosing type Thoracentesis: reactive/benign BMBx: neg PET: bulky mediastinal mass, SUV 16; bilateral neck SUV 15; also R>L pleural effusion 05/10/15 began ABVE-PC (as per pediatric [id number]) via femoral line 05/16/15 presented with sepsis [...] L neck: classical Hodgkins Above therapy in [place] -> moved to [place] Continued on ecalizumab per benign heme ([facility]) - genetic testing for aHUS PENDING GDP x3 06/2017 CR by PET Goodman placed GCSF stem cell mobilization: 7.3 x10^6 cd34/kg Hospitalization History: Hematology: #Relapsed HL Conditioning regimen: BEAM -Carmustine 300 mg/m IV on day -6 -Etoposide 200 mg/m IV daily on days -5, -4,- 3, and -1 -Cytarabine 400 mg/m daily on days -5, -4,- 3, and -1 -Melphalan 140 mg/m IV on day -1 Stem cell transplant -Day: +3 -Tolerated autologous product on 07/21/16. 7.3x10^6 per kg CD 34+ cells Post-BMT Plan: -Plan for Brentuximab maintenance starting ~6 wks post-BMT back home which improves EFS in high risk pts post-auto. She meets high risk criteria due to early relapse. #Pancytopenia d/t chemo -Antimicrobials as below -See supportive care #Supportive Care: Growth Factor: Due to begin daily Zarxio dosing on Day +5 (07/26) and continue until ANC > 1500 x 2 consecutive days. Labs: Continue to check CBC with diff daily Transfusion parameters: -Transfuse PRBCs for HCT <21% if asymptomatic OR <24% if symptomatic -Transfuse PPH for platelet count <20K (anticoagulation) or sooner PRN s/s active bleeding HEENT: #Recent [place] Tooth Extractions (~2-[address] CROSSING GUARD): Nearly resolved -NS rinses PRN Pulmonary: Pretransplant PFTs completed on 06/25/16 (at [facility]) showed FEV1 of 86% pr edicted, FVC of 90% predicted and DLCO of 50% predicted. No acute issues Cardiovascular: Pretransplant MUGA completed on 06/24/16 (at [facility]) showed a LVEF of 5 5%. #RLE DVT (first noted 07/04/15, persists on 07/16 doppler in R axial calf): Apixaban ROAD CROSSING GUARD -STOPPED Apixiban 5 mg BID on admission -Tx-dose Lovenox until plts <50K, then decrease to prophy dose Lovenox -See supportive care #Orthostatic HoTN (first noted 07/20): Sx improved with NS boluses but persistently Sx when getting OOB -1L NS boluses PRN; last given x2 on 07/24 -(07/23) BCx: NTD -Low threshold to start empiric ABx if persists GI: #GERD: Pepcid ROAD CROSSING GUARD -Prilosec 40 mg daily #Risk for Mucositis: No e/o mucositis currently -Continue oral care with normal saline rinses frequently #[place]: Controlled -Benadryl 25 mg PO q 6 hrs -Zofran IV/PO q 12 hrs -Zyprexa 10 mg qhs -Ativan, Haldol PRN Renal: #Atypical HUS: Ecalizumab ROAD CROSSING GUARD -Eculizumab q 2 weeks, next dose 07/26 -Monitor for hemolysis flare -Monitor LDH, hapto, complement activity qMon, Thurs Neuro/Psych: #Depression/Anxiety: Lexapro ROAD CROSSING GUARD -Lexapro 10 mg daily -Ativan PRN Infectious Disease: No acute issues #Hx C. Diff Colitis -Flagyl prophy started on Day [address] Link #Prophylaxis: Bacterial: Levofloxacin + Flagyl (Hx C. Diff) -For first neutropenic fever, smith cx, CXR, d/c Levofloxacin and begin Cefepime for empiric broadspectrum coverage. Fungal: Fluconazole started day 0 and continues until Day +30 Viral: Valacyclovir started day +1; will switch to Acyclovir upon discharge and continue u ntil Day +365 PCP: Bactrim day of admission through day -1, then restarts around Day +30 to +40 (or Daps [id number] mg po daily if sulfa allergic), pending platelet counts >50K. PCP prophy to continue 6 mos post PBSCT Toxo: (06/17/16) Toxo neg. No further testing required Fluid/Nutrition/Lytes: #Nutrition: Regular diet, No Adriane's yogurt or Kefir #Fluid: NS @ 75 mL/hr d/t orthostatic HoTN #Lytes: -Continue to check chemistries daily -Replace per supportive care protocol. Disposition: Pt with relapsed HL, adm for auto PBSCT. Anticipate 3-4 week hospitalization. MORENA Marshall [address] [place] [address] Mailcode: [id number] [place] [address] l Indiana Cabrera MD - 07/24/2016 2:19 PM PSTFormatting of this note might be different from the [facility] Inpatient Service Inpatient Attending Progress Note Date: 07/24/2016 Day: 9. Diagnosis: Hodgkin's Lymphoma I rounded today, 07/24/2016,in conjunction with the Advanced Practice Provider. I saw the p atient, reviewed the history and relevant studies and developed an assessment and plan. Juventino se see the Advanced Practice Provider documentation from today for the details regarding the assessment and plan. Hospital Course Summary: Meggan Otero is a 20 y.o. F w/ hx of relapsed classical Hodgkin's Lymphoma complicated by atypical HUS who is admitted for BEAM-conditioned Auto SCT, currently day +3. 04/2015 - presented with flank pain CT C/A/P: 11cm anterior mediastinal mass, pleural effusion & L supraclavian adenopathy. Needle bx: classical hodgkins, nodular sclerosing type Thoracentesis: reactive/benign BMBx: neg PET: bulky mediastinal mass, SUV 16; bilateral neck SUV 15; also R>L pleural effusion 05/10/15 began ABVE-PC (as per pediatric [id number]) via femoral line 05/16/15 presented with sepsis [...] n/a) 06/18/15 A(B)VE-PC #2 (omit bleo) - complicated by neutropenic fever/admit, recurrent hemopt ysis, decubitus ulcer; DVT R popliteal 07/14/15 A(B)VE-PC #3 - complicated by neutropenic fever 08/11/15 A(B)VE-PC #4 - complicated by neutropenic fever 08/2015 CR by PET [...] 03/2016 surgical bx L neck: classical Hodgkins - Above therapy in [place] -> moved to [facility]. Continued on ecalizumab per benign heme ([facility]) - genetic testing for aHUS PENDING GDP x3 06/2017 CR by PET - Goodman placed - GCSF stem cell mobilization: 7.3 x10^6 cd34/kg Overnight/Subjective: No acute events overnight. Antiemetics switched to scheduled IV zofran and benadryl, ativan for breakthrough. Yesterday, she developed some diarrhea, orthostatic dizziness. Received 2 L NS bolus. This AM she states that she feels better but orthostatics +. Received 2L NaCl. Exam: Last Vitals: BP 103/47 | Pulse 142 | Temp 36.8 C (98.2 F) | RR 18 | Ht 1.755 m (5' 9.09 ") | Wt 99.2 kg (218 lb 11.1 oz) | SpO2 100% | BMI 32.21 kg/(m^2) 24 Hour Vital Min/Max: Systolic (24hrs), Av , Min:89 , Max:125 Diastolic (24hrs), Av, Min:45, Max:74 Pulse Min: 88 Max: 162 Temp Min: 36.5 C (97.7 F) Max: 37.4 C (99.3 F) Resp Min: 16 Max: 18 SpO2 Min: 98 % Max: 100 % Intake/Output Summary (Last 24 hours) at 07/24/16 1419 Last data filed at 07/24/16 1400 Gross per 24 hour Intake 3040 ml Output 1750 ml Net 1290 ml General: Looks well and looks comfortable Skin: No rash and no catheter exit site tenderness Eyes: Normal, PERRLA and EOMI Mouth: Normal mucosa and no oral lesions Chest: Clear to auscultation Heart: RRR, no murmur, S1/S2 normal Abdomen: Soft and nontender without masses or hepatosplenomegaly Extrem: No pretibial/pedal edema Neuro: Alert, oriented x 3, motor/sens non-focal Lab/X-ray findings: Chemistries: Last 72 Hours (or 3 results): Recent Labs 07/21/16231307/22/16233407/24/16 014 NA 141 142 142 K 3.7 3.7 3.5 CL 107 108 110* BICARB 24 26 24 BUN 15 19 16 CR 0.56* 0.69 0.60 GLU 104* 87 99 CA 7.4* 7.6* 7.5* MG 2.5 2.2 2.0 PO4 3.2 3.4 2.8 Liver Tests: Last 72 hours (or 3 results) Recent Labs 07/21/16231307/22/16233407/24/16 014 AST 25 11 5 ALT 15 14 10 TBILI 0.2* 0.2* 0.2* AP 63 69 61 ALB 3.0* 3.0* 2.8* TP 5.2* 5.1* 4.7* CBC with diff last 72 hours (or 3 results) Recent Labs 07/21/16231307/22/16233407/24/16 0145 WBC 7.90 0.82* 0.28* HB 7.7* 7.7* 7.4* HCT 22.7* 23.2* 22.3* PLT 125* 90* 61* NEUTROPERC 98.3* 83.2* -- LYMPHPERC 0.8* 16.8* -- MONOPERC 0.0* 0.0* -- BASOPERC 0.1 0.0 -- EOSPERC 0.0* 0.0* -- Assessment: Meggan Otero is a 20 y.o. F w/ hx of relapsed classical Hodgkin's Lymphoma complicated by atypical HUS who is admitted for BEAM-conditioned Auto SCT, currently day +3. Plan:Relapsed classical Hodgkin's Lymphoma - Nodular sclerosing type - Admit for BEAM-conditioned Auto SCT - day +3 BEAM Prep Carmustine (BCNU, 300 mg/m2) day -6 Etoposide (200 mg/m2) day -5 - 2 Cytarabine (400 mg/m2) day -5 - 2 Melphalan (140 mg/m2) day -1 Post-BMT plan includes maintenance Brentuximab ~six weeks after BMT ID Prophylaxis - Antibacterial: Levofloxacin - Day -1 (07/20/16). - Antiviral: Valacyclovir - Day +1 (07/22/16). - Antifungal: Fluconazole - Day 0 (07/21/16). Atypical HUS - Ecaluzimuab every 14 days - 07/26 dose ordered - LDH, haptoglobin, complement activity every Mon/Thurs Hx of multiple DVTs - 07/16 - R Axial calf vein DVT - Tx dose of LMWH if Plt > 50k; Prophy dose if Plt <50k; platelet tx to keep Plt >20k Hx of Cdiff - Metronidazole while on abx DISCHARGE NEEDS/PLAN Anticipate discharge with recovery of counts. Will return to [place]. Mary Pérez MD Pager: [phone] [facility] DEPARTMENT: [id number]- [facility] Place of Service:- Inpatient Date of Service: 07/24/2016 Suggested CPT:77802 - Subsequent, Detailed/High complex Vandana Chance FNP - 07/23/2016 4:01 PM PSTFo rmatting of this note might be different from the original. Daily NPP Note - Auto Transplant Admit [facility] Attending: Emery Chilel MD [facility] Physician: Constantin Link MD PCP: Aashish iHlton MD Benign Hematology: Jim Michael MD ([facility]) Pediatric Heme/Onc: Anh Moreland MD ([place]) Nephrology: Raghav Miller MD ([place]) Date of Admission: 07/15/2016 Conditioning regimen: BEAM Date of transplant: 07/21/2016 Reason for admission: Planned BEAM-conditioned auto PBSCT for HL 24-Hr Events/Daily Plan: -Relapsed HL: Adm for BEAM auto PBSCT -Pancytopenia d/t conditioning chemo: Above standard transfusion threshold. -Atypical HUS: Conts Eculizumab q 2 weeks, next dose 07/26 (ordered in [facility]). Monitor for h emolysis flare. Monitor LDH, hapto, complement activity qMon, Thurs. -RLE DVT (first noted 07/04/15, persists on 07/16 doppler in R axial calf): Apixaban stopped on admission. Conts Tx-dose Lovenox until plts <50K, then decrease to prophy dose Lovenox a nd keep plts >20K. -[place]: Controlled. Switch scheduled Ativan to PRN to prevent oversedation/reduce fall risk. Conts scheduled Benadryl and add scheduled Zofran. -Orthostatic HoTN (first noted 07/20, then SBP briefly in 80s overnight on 07/22): Sx improve d with 1L NS bolus but persistently tachycardic on rounds. Given additional 1L NS this AM. O btain BCx x2 today. -Lytes: WNL. Repletions PRN per standard supportive care orders Subjective: Nausea relatively controlled. Has been a little dizzy lately when getting out of bed. Objective: Last Vitals: BP 102/50 | Pulse 99 | Temp 36.7 C (98.1 F) | RR 16 | Ht 1.755 m (5' 9.09" ) | Wt 98.7 kg (217 lb 9.5 oz) | SpO2 100% | BMI 32.05 kg/(m^2) 24 Hour Vital Min/Max: Systolic (24hrs), Av , Min:82 , Max:120 Diastolic (24hrs), Av, Min:40, Max:84 Pulse Min: 90 Max: 117 Temp Min: 36.7 C (98.1 F) Max: 37.3 C (99.1 F) Resp Min: 16 Max: 17 SpO2 Min: 97 % Max: 100 % Intake/Output Summary (Last 24 hours) at 07/23/16 1601 Last data filed at 07/23/16 1504 Gross per 24 hour Intake 2590 ml Output 2000 ml Net 590 ml Physical Exam: General: This is a female in no acute distress. Sitting upright in bed. HEENT: PERRL. Sclerae anicteric. Mucosa pink and moist without erythema or exudate. Skin: No rash, lesions noted. Chest: Lungs clear to auscultation bilat. CV: RRR, no murmurs. Abdomen: S/NT/ND with NABS. No HSM appreciated. Extremities: Pulses strong and equal bilaterally. No c/c/e. Neuro: Alert and oriented x 3. Grossly nonfocal exam. CVC: RCW Goodman in place w/o inflammation or induration. Dressing c/d/i Recent Labs 07/20/16230807/21/16 2314 07/22/16 2335 NA 141 141 142 K 3.3* 3.7 3.7 CL 110* 107 108 BICARB 23 24 26 BUN 14 15 19 CR 0.51* 0.56* 0.69 GLU 160* 104* 87 CA 7.6* 7.4* 7.6* AST 5 25 11 ALT 12 15 14 AP 62 63 69 TBILI 0.3 0.2* 0.2* TP 5.1* 5.2* 5.1* ALB 3.0* 3.0* 3.0* Recent Labs 07/20/16230807/21/16 2314 07/22/16 2335 WBC 1.55* 7.90 0.82* RBC 2.29* 2.54* 2.53* HB 6.9* 7.7* 7.7* HCT 20.8* 22.7* 23.2* PLT 135* 125* 90* NEUTROPERC 97.5* 98.3* 83.2* LYMPHPERC 1.9* 0.8* 16.8* MONOPERC 0.0* 0.0* 0.0* BASOPERC 0.0 0.1 0.0 EOSPERC 0.0* 0.0* 0.0* Meds: Reviewed on rounds, see current MAR for medication list Past Medical History: Meggan Otero is a 20 y.o. 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, admit for autoBMT Local oncologist: Aashish Hilton MD ([facility]) Benign Hematology: Jim Michael MD ([facility]) Pediatric Heme/Onc: Anh Moreland MD ([place]) Nephrology: Raghav Miller MD ([place]) 04/2015 presented with flank pain CT C/A/P: 11 cm anterior mediastinal mass, pleural effusion & L supraclav adenopathy Needle bx: classical hodgkins, nodular sclerosing type Thoracentesis: reactive/benign BMBx: neg PET: bulky mediastinal mass, SUV 16; bilateral neck SUV 15; also R>L pleural effusion 05/10/15 began ABVE-PC (as per pediatric [id number]) via femoral line 05/16/15 presented with sepsis [...] L neck: classical Hodgkins Above therapy in [place] -> moved to [place] Continued on ecalizumab per benign heme ([facility]) - genetic testing for aHUS PENDING GDP x3 06/2017 CR by PET Goodman placed GCSF stem cell mobilization: 7.3 x10^6 cd34/kg Hospitalization History: Hematology: #Relapsed HL Conditioning regimen: BEAM -Carmustine 300 mg/m IV on day -6 -Etoposide 200 mg/m IV daily on days -5, -4,- 3, and -1 -Cytarabine 400 mg/m daily on days -5, -4,- 3, and -1 -Melphalan 140 mg/m IV on day -1 Stem cell transplant -Day: +2 -Tolerated autologous product on 07/21/16. 7.3x10^6 per kg CD 34+ cells Post-BMT Plan: -Plan for Brentuximab maintenance starting ~6 wks post-BMT back home which improves EFS in high risk pts post-auto. She meets high risk criteria due to early relapse. #Pancytopenia d/t chemo -Antimicrobials as below -See supportive care #Supportive Care: Growth Factor: Due to begin daily Zarxio dosing on Day +5 (07/26) and continue until ANC > 1500 x 2 consecutive days. Labs: Continue to check CBC with diff daily Transfusion parameters: -Transfuse PRBCs for HCT <21% if asymptomatic OR <24% if symptomatic -Transfuse PPH for platelet count <20K (anticoagulation) or sooner PRN s/s active bleeding HEENT: #Recent [place] Tooth Extractions (~2-[address] CROSSING GUARD): Nearly resolved -NS rinses PRN Pulmonary: Pretransplant PFTs completed on 06/25/16 (at [facility]) showed FEV1 of 86% pr edicted, FVC of 90% predicted and DLCO of 50% predicted. No acute issues Cardiovascular: Pretransplant MUGA completed on 06/24/16 (at [facility]) showed a LVEF of 5 5%. #RLE DVT (first noted 07/04/15, persists on 07/16 doppler in R axial calf): Apixaban ROAD CROSSING GUARD -STOPPED Apixiban 5 mg BID on admission -Tx-dose Lovenox until plts <50K, then decrease to prophy dose Lovenox -See supportive care #Orthostatic HoTN (first noted 07/20, then SBP briefly in 80s overnight on 07/22): Sx improve d with 1L NS bolus but persistently tachycardic on rounds 07/23. -NS boluses PRN; last given 07/23 -(07/23) BCx PENDING GI: #GERD: Pepcid ROAD CROSSING GUARD -Prilosec 40 mg daily #Risk for Mucositis: No e/o mucositis currently -Continue oral care with normal saline rinses frequently #[place]: Controlled -Benadryl 25 mg PO q 6 hrs -Zofran IV/PO q 12 hrs -Ativan, Haldol PRN Renal: #Atypical HUS: Ecalizumab ROAD CROSSING GUARD -Eculizumab q 2 weeks, next dose 07/26 -Monitor for hemolysis flare -Monitor LDH, hapto, complement activity qMon, Thurs Neuro/Psych: #Depression/Anxiety: Lexapro ROAD CROSSING GUARD -Lexapro 10 mg daily -Ativan PRN Infectious Disease: No acute issues #Hx C. Diff Colitis -Flagyl prophy started on Day [address] Link #Prophylaxis: Bacterial: Levofloxacin + Flagyl (Hx C. Diff) -For first neutropenic fever, smith cx, CXR, d/c Levofloxacin and begin Cefepime for empiric broadspectrum coverage. Fungal: Fluconazole started day 0 and continues until Day +30 Viral: Valacyclovir started day +1; will switch to Acyclovir upon discharge and continue u ntil Day +365 PCP: Bactrim day of admission through day -1, then restarts around Day +30 to +40 (or Daps [id number] mg po daily if sulfa allergic), pending platelet counts >50K. PCP prophy to continue 6 mos post PBSCT Toxo: (06/17/16) Toxo neg. No further testing required Fluid/Nutrition/Lytes: #Nutrition: Regular diet, No Adriane's yogurt or Kefir #Fluid: Give 1L at 125mL/hour for PO intake <2L by 22:00 nightly #Lytes: -Continue to check chemistries daily -Replace per supportive care protocol. Disposition: Pt with relapsed HL, adm for auto PBSCT. Anticipate 3-4 week hospitalization. MORENA Marshall [facility] [id number] [facility] Mailcode: [id number] [place] [address] l Indiana Cabrera MD - 07/23/2016 3:03 PM PSTFormatting of this note might be different from the origin al. [facility] Inpatient Service Inpatient Attending Progress Note Date: 07/23/2016 Day: 8. Diagnosis: Hodgkin's Lymphoma I rounded today, 07/23/2016,in conjunction with the Advanced Practice Provider. I saw the jasmin vance, reviewed the history and relevant studies and developed an assessment and plan. Edda tran see the Advanced Practice Provider documentation from today for the details regarding the assessment and plan. Hospital Course Summary: Meggan Otero is a 20 y.o. F w/ hx of relapsed classical Hodgkin's Lymphoma complicated by atypical HUS who is admitted for BEAM-conditioned Auto SCT, currently day +2. 04/2015 - presented with flank pain CT C/A/P: 11cm anterior mediastinal mass, pleural effusion & L supraclavian adenopathy. Needle bx: classical hodgkins, nodular sclerosing type Thoracentesis: reactive/benign BMBx: neg PET: bulky mediastinal mass, SUV 16; bilateral neck SUV 15; also R>L pleural effusion 05/10/15 began ABVE-PC (as per pediatric [id number]) via femoral line 05/16/15 presented with sepsis [...] n/a) 06/18/15 A(B)VE-PC #2 (omit bleo) - complicated by neutropenic fever/admit, recurrent hemopt ysis, decubitus ulcer; DVT R popliteal 07/14/15 A(B)VE-PC #3 - complicated by neutropenic fever 08/11/15 A(B)VE-PC #4 - complicated by neutropenic fever 08/2015 CR by PET [...] 03/2016 surgical bx L neck: classical Hodgkins - Above therapy in [place] -> moved to [facility]. Continued on ecalizumab per benign heme ([facility]) - genetic testing for aHUS PENDING GDP x3 06/2017 CR by PET - Goodman placed - GCSF stem cell mobilization: 7.3 x10^6 cd34/kg Overnight/Subjective: No acute events overnight. Nausea improved after scheduling antiemetics; breakthrough w/ zo mario working. Exam: Last Vitals: BP 120/71 | Pulse 117 | Temp 36.9 C (98.4 F) | RR 16 | Ht 1.755 m (5' 9.09 ") | Wt 98.7 kg (217 lb 9.5 oz) | SpO2 100% | BMI 32.05 kg/(m^2) 24 Hour Vital Min/Max: Systolic (24hrs), Av , Min:82 , Max:130 Diastolic (24hrs), Av, Min:40, Max:84 Pulse Min: 90 Max: 117 Temp Min: 36.7 C (98.1 F) Max: 37.3 C (99.1 F) Resp Min: 16 Max: 17 SpO2 Min: 97 % Max: 100 % Intake/Output Summary (Last 24 hours) at 07/23/16 1503 Last data filed at 07/23/16 1400 Gross per 24 hour Intake 2850 ml Output 1850 ml Net 1000 ml General: Looks well and looks comfortable Skin: No rash and no catheter exit site tenderness Eyes: Normal, PERRLA and EOMI Mouth: Normal mucosa and no oral lesions Chest: Clear to auscultation Heart: RRR, no murmur, S1/S2 normal Abdomen: Soft and nontender without masses or hepatosplenomegaly Extrem: No pretibial/pedal edema Neuro: Alert, oriented x 3, motor/sens non-focal Lab/X-ray findings: Chemistries: Last 72 Hours (or 3 results): Recent Labs 07/20/16230807/21/16 2314 07/22/16 2335 NA 141 141 142 K 3.3* 3.7 3.7 CL 110* 107 108 BICARB 23 24 26 BUN 14 15 19 CR 0.51* 0.56* 0.69 GLU 160* 104* 87 CA 7.6* 7.4* 7.6* MG 1.6* 2.5 2.2 PO4 1.7* 3.2 3.4 Liver Tests: Last 72 hours (or 3 results) Recent Labs 07/20/16230807/21/16 2314 07/22/16 2335 AST 5 25 11 ALT 12 15 14 TBILI 0.3 0.2* 0.2* AP 62 63 69 ALB 3.0* 3.0* 3.0* TP 5.1* 5.2* 5.1* CBC with diff last 72 hours (or 3 results) Recent Labs 07/20/16230807/21/16 2314 07/22/16 2335 WBC 1.55* 7.90 0.82* HB 6.9* 7.7* 7.7* HCT 20.8* 22.7* 23.2* PLT 135* 125* 90* NEUTROPERC 97.5* 98.3* 83.2* LYMPHPERC 1.9* 0.8* 16.8* MONOPERC 0.0* 0.0* 0.0* BASOPERC 0.0 0.1 0.0 EOSPERC 0.0* 0.0* 0.0* Assessment: Meggan Otero is a 20 y.o. F w/ hx of relapsed classical Hodgkin's Lymphoma complicated by atypical HUS who is admitted for BEAM-conditioned Auto SCT, currently day +2. Plan:Relapsed classical Hodgkin's Lymphoma - Nodular sclerosing type - Admit for BEAM-conditioned Auto SCT - day +2 BEAM Prep Carmustine (BCNU, 300 mg/m2) day -6 Etoposide (200 mg/m2) day -5 - 2 Cytarabine (400 mg/m2) day -5 - 2 Melphalan (140 mg/m2) day -1 Post-BMT plan includes maintenance Brentuximab ~six weeks after BMT ID Prophylaxis - Antibacterial: Levofloxacin - Day -1 (07/20/16). - Antiviral: Valacyclovir - Day +1 (07/22/16). - Antifungal: Fluconazole - Day 0 (07/21/16). Atypical HUS - Ecaluzimuab every 14 days - 07/26 dose ordered - LDH, haptoglobin, complement activity every Mon/Thurs Hx of multiple DVTs - 07/16 - R Axial calf vein DVT - Tx dose of LMWH if Plt > 50k; Prophy dose to keep Plt >20k Hx of Cdiff - Metronidazole while on abx DISCHARGE NEEDS/PLAN Anticipate discharge with recovery of counts Will return to [place]. Mary Pérez MD Pager: [phone] [facility] DEPARTMENT: [id number]- [facility] Place of Service:- Inpatient Date of Service: 07/23/2016 Suggested CPT:24511 - Subsequent, Detailed/High complex ain, Ignacio Bruce PA-C,MPAS - 07/22/2016 3:52 PM PSTFormat ting of this note might be different from the original. Daily NPP Note - Auto Transplant [facility]mit [facility] Attending: Emery Chilel MD [facility] Physician: Constantin Link MD PCP: Aashish Hilton MD Benign Hematology: Jim Michael MD ([facility]) Pediatric Heme/Onc: Anh Moreland MD ([place]) Nephrology: Raghav Miller MD ([place]) Date of Admission: 07/15/2016 Conditioning regimen: BEAM Date of transplant: 07/21/2016 Reason for admission: Planned BEAM-conditioned auto PBSCT for HL 24-Hr Events/Daily Plan: -Relapsed HL: Adm for BEAM auto PBSCT, currently day +1. Tolerated stem cell transplant wit h nausea otherwise no issues. -Anemia d/t disease and chemo: Above standard transfusion threshold. -Atypical HUS: Conts Eculizumab q 2 weeks, next dose 07/26 (pharmacy has ordered). Monitor for hemolysis flare. Monitor LDH, hapto, complement activity qMon, Thurs. -RLE DVT (first noted 07/04/15, persists on 07/16 doppler in R axial calf): Apixaban stopped on admission. Conts Tx-dose Lovenox until plts <50K, then decrease to prophy dose Lovenox a nd keep plts >20K. -[place]: scheduled Ativan and Benadryl Q6 hours -Lytes: WNL. Repletions PRN per standard supportive care orders Subjective: Having persistent nausea - no other acute changes or nursing concerns Objective: Last Vitals: BP 130/71 | Pulse 104 | Temp 37.1 C (98.8 F) | RR 16 | Ht 1.755 m (5' 9.09 ") | Wt 99 kg (218 lb 4.1 oz) | SpO2 100% | BMI 32.14 kg/(m^2) 24 Hour Vital Min/Max: Systolic (24hrs), Av , Min:107 , Max:154 Diastolic (24hrs), Av, Min:61, Max:99 Pulse Min: 82 Max: 104 Temp Min: 36.5 C (97.7 F) Max: 37.1 C (98.8 F) Resp Min: 16 Max: 16 SpO2 Min: 99 % Max: 100 % Intake/Output Summary (Last 24 hours) at 07/22/16 1552 Last data filed at 07/22/16 1200 Gross per 24 hour Intake 2266 ml Output 3550 ml Net -1284 ml Physical Exam: General: This is a female in no acute distress. Sitting up in bed. HEENT: PERRL. Sclerae anicteric. Mucosa pink and moist without erythema or exudate. Skin: No rash, lesions noted. Chest: Lungs clear to auscultation bilat. CV: RRR, no murmurs. Abdomen: S/NT/ND with NABS. No HSM appreciated. Extremities: Pulses strong and equal bilaterally. No c/c/e. Neuro: Alert and oriented x 3. Grossly nonfocal exam. CVC: RCW Goodman in place w/o inflammation or induration. Dressing c/d/i Recent Labs 07/19/16 2355 07/20/16 2309 07/21/16 2314 NA 142 141 141 K 3.6 3.3* 3.7 CL 111* 110* 107 BICARB 22 23 24 BUN 11 14 15 CR 0.60 0.51* 0.56* GLU 108* 160* 104* CA 8.0* 7.6* 7.4* AST 8 5 25 ALT 12 12 15 AP 65 62 63 TBILI 0.4 0.3 0.2* TP 5.4* 5.1* 5.2* ALB 3.1* 3.0* 3.0* Recent Labs 07/19/16 2355 07/20/16 2309 07/21/16 2314 WBC 2.41* 1.55* 7.90 RBC 2.56* 2.29* 2.54* HB 7.9* 6.9* 7.7* HCT 23.2* 20.8* 22.7* PLT 168 135* 125* NEUTROPERC 96.3* 97.5* 98.3* LYMPHPERC 2.9* 1.9* 0.8* MONOPERC 0.4* 0.0* 0.0* BASOPERC 0.0 0.0 0.1 EOSPERC 0.0* 0.0* 0.0* Meds: Reviewed on rounds, see current MAR for medication list Past Medical History: Meggan Otero is a 20 y.o. 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, admit for autoBMT Local oncologist: Aashish Hilton MD ([facility]) Benign Hematology: Jim Michael MD ([facility]) Pediatric Heme/Onc: Anh Moreland MD ([place]) Nephrology: Raghav Miller MD ([place]) 04/2015 presented with flank pain CT C/A/P: 11 cm anterior mediastinal mass, pleural effusion & L supraclav adenopathy Needle bx: classical hodgkins, nodular sclerosing type Thoracentesis: reactive/benign BMBx: neg PET: bulky mediastinal mass, SUV 16; bilateral neck SUV 15; also R>L pleural effusion 05/10/15 began ABVE-PC (as per pediatric [id number]) via femoral line 05/16/15 presented with sepsis [...] L neck: classical Hodgkins Above therapy in [place] -> moved to [place] Continued on ecalizumab per benign heme ([facility]) - genetic testing for aHUS PENDING GDP x3 06/2017 CR by PET Goodman placed GCSF stem cell mobilization: 7.3 x10^6 cd34/kg Hospitalization History: Hematology: #Relapsed HL Conditioning regimen: BEAM -Carmustine 300 mg/m IV on day -6 -Etoposide 200 mg/m IV daily on days -5, -4,- 3, and -1 -Cytarabine 400 mg/m daily on days -5, -4,- 3, and -1 -Melphalan 140 mg/m IV on day -1 Stem cell transplant -Day: +1 -Tolerated autologous product on 07/21/16. 7.3x10^6 per kg CD 34+ cells Post-BMT Plan: -Plan for Brentuximab maintenance starting ~6 wks post-BMT back home which improves EFS in high risk pts post-auto. She meets high risk criteria due to early relapse. #Anemia d/t disease and chemo -See supportive care #Supportive Care: Growth Factor: Due to begin daily Zarxio dosing on Day +5 (07/26) and continue until ANC > 1500 x 2 consecutive days. Labs: Continue to check CBC with diff daily Transfusion parameters: -Transfuse PRBCs for HCT <21% if asymptomatic OR <24% if symptomatic -Transfuse PPH for platelet count <20K (anticoagulation) or sooner PRN s/s active bleeding HEENT: #Recent [place] Tooth Extractions (~2-[address] CR[address]ING GUARD): Nearly resolved -NS rinses PRN Pulmonary: Pretransplant PFTs completed on 06/25/16 (at [facility]) showed FEV1 of 86% pr edicted, FVC of 90% predicted and DLCO of 50% predicted. No acute issues Cardiovascular: Pretransplant MUGA completed on 06/24/16 (at [facility]) showed a LVEF of 5 5%. #RLE DVT (first noted 07/04/15, persists on 07/16 doppler in R axial calf): Apixaban ROAD CROSSING GUARD -STOPPED Apixiban 5 mg BID on admission -Tx-dose Lovenox until plts <50K, then decrease to prophy dose Lovenox -See supportive care #Orthostatic HoTN: noted 07/20, give 500 mL fluid bolus. RESOLVED GI: #GERD: Pepcid ROAD CROSSING GUARD -Prilosec 40 mg daily #Risk for Mucositis: No e/o mucositis currently -Continue oral care with normal saline rinses frequently #[place]: -continue PRN ativan and benadryl Renal: #Atypical HUS: Ecalizumab ROAD CROSSING GUARD -Eculizumab q 2 weeks, next dose 07/26 -Monitor for hemolysis flare -Monitor LDH, hapto, complement activity qMon, Thurs Neuro/Psych: #Depression/Anxiety: Lexapro ROAD CROSSING GUARD -Lexapro 10 mg daily -Ativan PRN Infectious Disease: No acute issues #Hx C. Diff Colitis -Flagyl prophy starts on Day [address] Link #Prophylaxis: Bacterial: Levofloxacin and flagyl -For first neutropenic fever, smith cx, CXR, d/c Levofloxacin and begin Cefepime for empiric broadspectrum coverage. Fungal: Fluconazole starts day 0 and continues until Day +30 Viral: Valacyclovir starts day +1; will switch to Acyclovir upon discharge and continue un til Day +365 PCP: Bactrim day of admission through day -1, then restarts around Day +30 to +40 (or Daps [id number] mg po daily if sulfa allergic), pending platelet counts >50K. PCP prophy to continue 6 mos post PBSCT Toxo: (06/17/16) Toxo neg. No further testing required Fluid/Nutrition/Lytes: #Nutrition: Regular diet, No Adriane's yogurt or Kefir #Fluid: Give 1L at 125mL/hour for PO intake <2L by 22:00 nightly #Lytes: -Continue to check chemistries daily -Replace per supportive care protocol. Disposition: Pt with relapsed HL, adm for auto PBSCT. Anticipate 3-4 week hospitalization. JOSE RAMON Pemberton PA-C [place] [id number] [facility] Mailcode: [id number] [place] [address] ary Pérez MD - 07/22/2016 8:54 AM PST [facility] Inpatient Service Inpatient Attending Progress Note Date: 07/22/2016 Day: 7. Diagnosis: Hodgkin's Lymphoma I rounded today, 07/22/2016,in conjunction with the Advanced Practice Provider. I saw the jasmin vance, reviewed the history and relevant studies and developed an assessment and plan. Edda tran see the Advanced Practice Provider documentation from today for the details regarding the assessment and plan. Hospital Course Summary: Meggan Otero is a 20 y.o. F w/ hx of relapsed classical Hodgkin's Lymphoma complicated by atypical HUS who is admitted for BEAM-conditioned Auto SCT, currently day +1. 04/2015 - presented with flank pain CT C/A/P: 11cm anterior mediastinal mass, pleural effusion & L supraclavian adenopathy. Needle bx: classical hodgkins, nodular sclerosing type Thoracentesis: reactive/benign BMBx: neg PET: bulky mediastinal mass, SUV 16; bilateral neck SUV 15; also R>L pleural effusion 05/10/15 began ABVE-PC (as per pediatric [id number]) via femoral line 05/16/15 presented with sepsis [...] n/a) 06/18/15 A(B)VE-PC #2 (omit bleo) - complicated by neutropenic fever/admit, recurrent hemopt ysis, decubitus ulcer; DVT R popliteal 07/14/15 A(B)VE-PC #3 - complicated by neutropenic fever 08/11/15 A(B)VE-PC #4 - complicated by neutropenic fever 08/2015 CR by PET [...] 03/2016 surgical bx L neck: classical Hodgkins - Above therapy in [place] -> moved to [facility] Continued on ecalizumab per benign heme ([facility]) - genetic testing for aHUS PENDING GDP x3 06/2017 CR by PET - Goodman placed - GCSF stem cell mobilization: 7.3 x10^6 cd34/kg Overnight/Subjective: No acute events overnight. Experienced significant nausea with stem cells yesterday. Open t o scheduling her anti-nausea medications. Exam: Last Vitals: BP 154/99 | Pulse 92 | Temp 36.6 C (97.9 F) | RR 16 | Ht 1.755 m (5' 9.09" ) | Wt 99 kg (218 lb 4.1 oz) | SpO2 100% | BMI 32.14 kg/(m^2) 24 Hour Vital Min/Max: Systolic (24hrs), Av , Min:102 , Max:162 Diastolic (24hrs), Av, Min:55, Max:102 Pulse Min: 82 Max: 130 Temp Min: 36.5 C (97.7 F) Max: 37 C (98.6 F) Resp Min: 16 Max: 16 SpO2 Min: 98 % Max: 100 % Intake/Output Summary (Last 24 hours) at 07/22/16 0854 Last data filed at 07/22/16 0500 Gross per 24 hour Intake 2491 ml Output 4750 ml Net -2259 ml General: looks well and looks comfortable Skin: no rash and no catheter exit site tenderness Eyes: normal, PERRLA and EOM's intact Mouth: normal mucosa and no oral lesions Chest: Clear to auscultation Heart: RRR, no murmur, S1/S2 normal Abdomen: Soft and nontender without masses or hepatosplenomegaly Extrem: no pretibial/pedal edema Neuro: alert, oriented x 3, motor/sens non-focal Lab/X-ray findings: Chemistries: Last 72 Hours (or 3 results): Recent Labs 07/19/16235407/20/16230807/21/16 2314 NA 142 141 141 K 3.6 3.3* 3.7 CL 111* 110* 107 BICARB 22 23 24 BUN 11 14 15 CR 0.60 0.51* 0.56* GLU 108* 160* 104* CA 8.0* 7.6* 7.4* MG 2.0 1.6* 2.5 PO4 2.5 1.7* 3.2 Liver Tests: Last 72 hours (or 3 results) Recent Labs 07/19/16235407/20/16230807/21/16 2314 AST 8 5 25 ALT 12 12 15 TBILI 0.4 0.3 0.2* AP 65 62 63 ALB 3.1* 3.0* 3.0* TP 5.4* 5.1* 5.2* CBC with diff last 72 hours (or 3 results) Recent Labs 07/19/16235407/20/16230807/21/16 2314 WBC 2.41* 1.55* 7.90 HB 7.9* 6.9* 7.7* HCT 23.2* 20.8* 22.7* PLT 168 135* 125* NEUTROPERC 96.3* 97.5* 98.3* LYMPHPERC 2.9* 1.9* 0.8* MONOPERC 0.4* 0.0* 0.0* BASOPERC 0.0 0.0 0.1 EOSPERC 0.0* 0.0* 0.0* Assessment: Meggan Otero is a 20 y.o. F w/ hx of relapsed classical Hodgkin's Lymphoma complicated by atypical HUS who is admitted for BEAM-conditioned Auto SCT, currently day +1. Plan: Relapsed classical Hodgkin's Lymphoma - Nodular sclerosing type - Admit for BEAM-conditioned Auto SCT - day +1 BEAM Prep Carmustine (BCNU, 300 mg/m2) day -6 Etoposide (200 mg/m2) day -5 - 2 Cytarabine (400 mg/m2) day -5 - 2 Melphalan (140 mg/m2) day -1 Post-BMT plan includes maintenance Brentuximab ~six weeks after BMT ID prophylaxis - Standard levo, acyclovir, fluconazole prophylaxis Atypical HUS - Ecaluzimuab every 14 days - 07/26 dose ordered - LDH, haptoglobin, complement activity every Mon/Thurs Hx of multiple DVTs - 07/16 - R Axial calf vein DVT - Tx dose of LMWH if Plt > 50k; Prophy dose to keep Plt >20k Hx of Cdiff - Metronidazole while on abx DISCHARGE NEEDS/PLAN Anticipate discharge with recovery of counts Will return to [place]. Mary Pérez MD Pager: [phone] [facility] DEPARTMENT: [id number]- [facility] Place of Service:- Inpatient Date of Service: 07/22/2016 Suggested CPT:46217 - Subsequent, Detailed/High complex Trinity Us ANP - 07/21/2016 1:18 PM PSTFormshari g of this note might be different from the original. Daily NPP Note - Auto Transplant [facility] Attending: Emery Chilel MD [facility] Physician: Constantin Link MD PCP: Aashish Hilton MD Benign Hematology: Jim Michael MD ([facility]) Pediatric Heme/Onc: Anh Moreland MD ([place]) Nephrology: Raghav Miller MD ([place]) Date of Admission: 07/15/2016 Conditioning regimen: BEAM Date of transplant: 07/21/2016 Reason for admission: Planned BEAM-conditioned auto PBSCT for HL 24-Hr Events/Daily Plan: -Relapsed HL: Adm for BEAM auto PBSCT, currently day 0. Tolerated stem cell transplant with nausea otherwise no issues. -Anemia d/t disease and chemo: Above standard transfusion threshold. -Atypical HUS: Conts Eculizumab q 2 weeks, next dose 07/26. Monitor for hemolysis flare. Mo nitor LDH, hapto, complement activity qMon, Thurs -RLE DVT (first noted 07/04/15, persists on 07/16 doppler in R axial calf): Apixaban stopped on admission. Conts Tx-dose Lovenox until plts <50K, then decrease to prophy dose Lovenox a nd keep plts >20K. -[place]: continue PRN ativan and benadryl -Lytes: WNL. Repletions PRN per standard supportive care orders Subjective: Anxiety and nausea with infusion otherwise feeling well. Objective: Last Vitals: BP 140/76 | Pulse 79 | Temp 36.7 C (98.1 F) | RR 16 | Ht 1.755 m (5' 9.09" ) | Wt 100.1 kg (220 lb 10.9 oz) | SpO2 100% | BMI 32.5 kg/(m^2) 24 Hour Vital Min/Max: Systolic (24hrs), Av , Min:100 , Max:140 Diastolic (24hrs), Av, Min:58, Max:79 Pulse Min: 75 Max: 153 Temp Min: 36.6 C (97.9 F) Max: 36.8 C (98.2 F) Resp Min: 16 Max: 22 SpO2 Min: 99 % Max: 100 % Intake/Output Summary (Last 24 hours) at 07/21/16 1318 Last data filed at 07/21/16 0900 Gross per 24 hour Intake 5235 ml Output 4800 ml Net 435 ml Physical Exam: General: This is a female in no acute distress. Sitting up in bed. HEENT: PERRL. Sclerae anicteric. Mucosa pink and moist without erythema or exudate. Skin: No rash, lesions noted. Chest: Lungs clear to auscultation bilat. CV: RRR, no murmurs. Abdomen: S/NT/ND with NABS. No HSM appreciated. Extremities: Pulses strong and equal bilaterally. No c/c/e. Neuro: Alert and oriented x 3. Grossly nonfocal exam. CVC: RCW Goodman in place w/o inflammation or induration. Dressing c/d/i Recent Labs 07/18/16 2345 07/19/16 2355 07/20/16 2309 NA 142 142 141 K 3.8 3.6 3.3* CL 111* 111* 110* BICARB 24 22 23 BUN 13 11 14 CR 0.61 0.60 0.51* GLU 116* 108* 160* CA 8.2* 8.0* 7.6* AST 5 8 5 ALT 12 12 12 AP 73 65 62 TBILI 0.5 0.4 0.3 TP 5.7* 5.4* 5.1* ALB 3.2* 3.1* 3.0* Recent Labs 07/18/16 2345 07/19/16 2355 07/20/16 2309 WBC 2.42* 2.41* 1.55* RBC 2.69* 2.56* 2.29* HB 8.3* 7.9* 6.9* HCT 24.4* 23.2* 20.8* PLT 164 168 135* NEUTROPERC 94.6* 96.3* 97.5* LYMPHPERC 2.5* 2.9* 1.9* MONOPERC 2.5* 0.4* 0.0* BASOPERC 0.0 0.0 0.0 EOSPERC 0.0* 0.0* 0.0* Meds: Reviewed on rounds, see current MAR for medication list Past Medical History: Meggan Otero is a 20 y.o. 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, admit for autoBMT Local oncologist: Aashish Hilton MD ([facility]) Benign Hematology: Jim Michael MD ([facility]) Pediatric Heme/Onc: Anh Moreland MD ([place]) Nephrology: Raghav Miller MD ([place]) 04/2015 presented with flank pain CT C/A/P: 11 cm anterior mediastinal mass, pleural effusion & L supraclav adenopathy Needle bx: classical hodgkins, nodular sclerosing type Thoracentesis: reactive/benign BMBx: neg PET: bulky mediastinal mass, SUV 16; bilateral neck SUV 15; also R>L pleural effusion 05/10/15 began ABVE-PC (as per pediatric [id number]) via femoral line 05/16/15 presented with sepsis [...] L neck: classical Hodgkins Above therapy in [place] -> moved to [place] Continued on ecalizumab per benign heme ([facility]) - genetic testing for aHUS PENDING GDP x3 06/2017 CR by PET Goodman placed GCSF stem cell mobilization: 7.3 x10^6 cd34/kg Hospitalization History: Hematology: #Relapsed HL Conditioning regimen: BEAM -Carmustine 300 mg/m IV on day -6 -Etoposide 200 mg/m IV daily on days -5, -4,- 3, and -1 -Cytarabine 400 mg/m daily on days -5, -4,- 3, and -1 -Melphalan 140 mg/m IV on day -1 Stem cell transplant -Day: 0 -Tolerated autologous product on 07/21/16. 7.3x10^6 per kg CD 34+ cells Post-BMT Plan: -Plan for Brentuximab maintenance starting ~6 wks post-BMT back home which improves EFS in high risk pts post-auto. She meets high risk criteria due to early relapse. #Anemia d/t disease and chemo -See supportive care #Supportive Care: Growth Factor: Due to begin daily Zarxio dosing on Day +5 (07/26) and continue until ANC > 1500 x 2 consecutive days. Labs: Continue to check CBC with diff daily Transfusion parameters: -Transfuse PRBCs for HCT <21% if asymptomatic OR <24% if symptomatic -Transfuse PPH for platelet count <20K (anticoagulation) or sooner PRN s/s active bleeding HEENT: #Recent [place] Tooth Extractions (~2-[address] CROSSING GUARD): Nearly resolved -NS rinses PRN Pulmonary: Pretransplant PFTs completed on 06/25/16 (at [facility]) showed FEV1 of 86% pr edicted, FVC of 90% predicted and DLCO of 50% predicted. No acute issues Cardiovascular: Pretransplant MUGA completed on 06/24/16 (at [facility]) showed a LVEF of 5 5%. #RLE DVT (first noted 07/04/15, persists on 07/16 doppler in R axial calf): Apixaban ROAD CROSSING GUARD -STOPPED Apixiban 5 mg BID on admission -Tx-dose Lovenox until plts <50K, then decrease to prophy dose Lovenox -See supportive care #Orthostatic HoTN: noted 07/20, give 500 mL fluid bolus. RESOLVED GI: #GERD: Pepcid ROAD CROSSING GUARD -Prilosec 40 mg daily #Risk for Mucositis: No e/o mucositis currently -Continue oral care with normal saline rinses frequently #[place]: -continue PRN ativan and benadryl Renal: #Atypical HUS: Ecalizumab ROAD CROSSING GUARD -Eculizumab q 2 weeks, next dose 07/26 -Monitor for hemolysis flare -Monitor LDH, hapto, complement activity qMon, Thurs Neuro/Psych: #Depression/Anxiety: Lexapro ROAD CROSSING GUARD -Lexapro 10 mg daily -Ativan PRN Infectious Disease: No acute issues #Hx C. Diff Colitis -Flagyl prophy starts on Day [address] Link #Prophylaxis: Bacterial: Levofloxacin and flagyl -For first neutropenic fever, smith cx, CXR, d/c Levofloxacin and begin Cefepime for empiric broadspectrum coverage. Fungal: Fluconazole starts day 0 and continues until Day +30 Viral: Valacyclovir starts day +1; will switch to Acyclovir upon discharge and continue un til Day +365 PCP: Bactrim day of admission through day -1, then restarts around Day +30 to +40 (or Daps [id number] mg po daily if sulfa allergic), pending platelet counts >50K. PCP prophy to continue 6 mos post PBSCT Toxo: (06/17/16) Toxo neg. No further testing required Fluid/Nutrition/Lytes: #Nutrition: Regular diet, No Adriane's yogurt or Kefir #Fluid: Give 1L at 125mL/hour for PO intake <2L by 22:00 nightly #Lytes: -Continue to check chemistries daily -Replace per supportive care protocol. Disposition: Pt with relapsed HL, adm for auto PBSCT. Anticipate 3-4 week hospitalization. 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 I saw the patient, reviewed the history and relevant studies and developed an assessment an d plan. Subjective/Objective: feeling okay but still a little nausea. Anxious about stem cells. ROS otherwise negative Summary of day's events and plan: day 0 of BEAM auto - moderate CINV controlled with anti-emetics - reviewed transplant procedure and expected side effects - reviewed IVF, drop in CBC, time to recovery - clincially stable and ready for infusion Please see the Advanced Practice Provider documentation from today for the details crystalin g the assessment and plan. 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 Focused Exam: anxious but nad, op clear, cta b, rrr no m/r/g, soft abd, tr edema Intake/Output Summary (Last 24 hours) at 07/21/16 1306 Last data filed at 07/21/16 0900 Gross per 24 hour Intake 5855 ml Output 5250 ml Net 605 ml Recent Labs 07/18/16 2345 07/19/16 2355 07/20/16 2309 NA 142 142 141 K 3.8 3.6 3.3* CL 111* 111* 110* BICARB 24 22 23 BUN 13 11 14 CR 0.61 0.60 0.51* GLU 116* 108* 160* CA 8.2* 8.0* 7.6* AST 5 8 5 ALT 12 12 12 AP 73 65 62 TBILI 0.5 0.4 0.3 TP 5.7* 5.4* 5.1* ALB 3.2* 3.1* 3.0* Recent Labs 07/18/16 2345 07/19/16 2355 07/20/16 2309 WBC 2.42* 2.41* 1.55* RBC 2.69* 2.56* 2.29* HB 8.3* 7.9* 6.9* HCT 24.4* 23.2* 20.8* PLT 164 168 135* NEUTROPERC 94.6* 96.3* 97.5* LYMPHPERC 2.5* 2.9* 1.9* MONOPERC 2.5* 0.4* 0.0* BASOPERC 0.0 0.0 0.0 EOSPERC 0.0* 0.0* 0.0* I spent 25 minutes including chart review and discussion with the CLAUDINE and excluding time sp ent during autologous transplant procedure. Greater than >50% of time spent in direct counse ling and coordination of care including discussion of issues regarding stem cell infusion. [facility] DEPARTMENT: [id number] - [facility]ACULT[facility] Place of Service: - Inpatient Date of Service: 07/21/2016 Suggested CPT: 85023 - Subsequent, Exp Prob Foc/Mod Complex anning, JASMIN Pantoja - 07/20/2016 3:12 PM PST Daily NPP Note - Auto Transplant Admit [facility] Attending: Emery Chilel MD [facility] Physician: Constantin Link MD PCP: Aashish Hilton MD Benign Hematology: Jim Michael MD ([facility]) Pediatric Heme/Onc: Anh Moreland MD ([place]) Nephrology: Raghav Miller MD ([place]) Date of Admission: 07/15/2016 Conditioning regimen: BEAM Date of transplant: 07/21/2016 Reason for admission: Planned BEAM-conditioned auto PBSCT for HL 24-Hr Events/Daily Plan: -Relapsed HL: Adm for BEAM auto PBSCT, currently day -1. Tolerating chemo well. -Anemia d/t disease and chemo: Above standard transfusion threshold. -Atypical HUS: Conts Eculizumab q 2 weeks, next dose 07/26. Monitor for hemolysis flare. Mo nitor LDH, hapto, complement activity qMon, Thurs -RLE DVT (first noted 07/04/15, persists on 07/16 doppler in R axial calf): Apixaban stopped on admission. Conts Tx-dose Lovenox until plts <50K, then decrease to prophy dose Lovenox a nd keep plts >20K. -[place]: continue PRN ativan and benadryl as well as scheduled antiemetics with chemo. -Orthostatic HoTN: noted 07/20, give 500 mL fluid bolus. -Lytes: WNL. Repletions PRN per standard supportive care orders Subjective: Has had nausea, no emesis. Otherwise feeling well. Objective: Last Vitals: BP 100/58 | Pulse 153 | Temp 36.6 C (97.9 F) | RR 22 | Ht 1.755 m (5' 9.09 ") | Wt 100.1 kg (220 lb 10.9 oz) | SpO2 100% | BMI 32.5 kg/(m^2) 24 Hour Vital Min/Max: Systolic (24hrs), Av , Min:100 , Max:133 Diastolic (24hrs), Av, Min:58, Max:76 Pulse Min: 65 Max: 153 Temp Min: 36.6 C (97.9 F) Max: 36.7 C (98.1 F) Resp Min: 16 Max: 22 SpO2 Min: 98 % Max: 100 % Intake/Output Summary (Last 24 hours) at 07/20/16 1512 Last data filed at 07/20/16 1500 Gross per 24 hour Intake 4468 ml Output 2850 ml Net 1618 ml Physical Exam: General: This is a female in no acute distress. Sitting up in bed. HEENT: PERRL. Sclerae anicteric. Mucosa pink and moist without erythema or exudate. Skin: No rash, lesions noted. Chest: Lungs clear to auscultation bilat. CV: RRR, no murmurs. Abdomen: S/NT/ND with NABS. No HSM appreciated. Extremities: Pulses strong and equal bilaterally. No c/c/e. Neuro: Alert and oriented x 3. Grossly nonfocal exam. CVC: RCW Goodman in place w/o inflammation or induration. Dressing c/d/i Recent Labs 07/17/16 2310 07/18/16 2345 07/19/16 2355 NA 143 142 142 K 3.7 3.8 3.6 CL 110* 111* 111* BICARB 22 24 22 BUN 14 13 11 CR 0.58* 0.61 0.60 GLU 116* 116* 108* CA 8.3* 8.2* 8.0* AST 6 5 8 ALT 12 12 12 AP 78 73 65 TBILI 0.3 0.5 0.4 TP 5.9* 5.7* 5.4* ALB 3.2* 3.2* 3.1* Recent Labs 07/17/16 2310 07/18/16 2345 07/19/16 2355 WBC 4.16 2.42* 2.41* RBC 2.90* 2.69* 2.56* HB 8.7* 8.3* 7.9* HCT 26.4* 24.4* 23.2* PLT 188 164 168 NEUTROPERC 91.4* 94.6* 96.3* LYMPHPERC 2.4* 2.5* 2.9* MONOPERC 4.8 2.5* 0.4* BASOPERC 0.0 0.0 0.0 EOSPERC 0.0* 0.0* 0.0* Meds: Reviewed on rounds, see current MAR for medication list Past Medical History: Meggan Otero is a 20 y.o. 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, admit for autoBMT Local oncologist: Aashish Hilton MD ([facility]) Benign Hematology: Jim Michael MD ([facility]) Pediatric Heme/Onc: Anh Moreland MD ([place]) Nephrology: Raghav Miller MD ([place]) 04/[address] presented with flank [address] C/A/P: 11 cm anterior mediastinal mass, pleural effusion & L supraclav adenopathy Needle bx: classical hodgkins, nodular sclerosing type Thoracentesis: reactive/benign BMBx: neg PET: bulky mediastinal mass, SUV 16; bilateral neck SUV 15; also R>L pleural effusion 05/10/15 began ABVE-PC (as per pediatric [id number]) via femoral line 05/16/15 presented with sepsis [...] L neck: classical Hodgkins Above therapy in [place] -> moved to [place] Continued on ecalizumab per benign heme ([facility]) - genetic testing for aHUS PENDING GDP x3 06/2017 CR by PET Goodman placed GCSF stem cell mobilization: 7.3 x10^6 cd34/kg Hospitalization History: Hematology: #Relapsed HL Conditioning regimen: BEAM -Carmustine 300 mg/m IV on day -6 -Etoposide 200 mg/m IV daily on days -5, -4,- 3, and -1 -Cytarabine 400 mg/m daily on days -5, -4,- 3, and -1 -Melphalan 140 mg/m IV on day -1 Stem cell transplant -Day: -1 -Due for infusion of autologous product on 07/21/16 Post-BMT Plan: -Plan for Brentuximab maintenance starting ~6 wks post-BMT back home which improves EFS in high risk pts post-auto. She meets high risk criteria due to early relapse. #Anemia d/t disease and chemo -See supportive care #Supportive Care: Growth Factor: Due to begin daily Zarxio dosing on Day +5 (07/26) and continue until ANC > 1500 x 2 consecutive days. Labs: Continue to check CBC with diff daily Transfusion parameters: -Transfuse PRBCs for HCT <21% if asymptomatic OR <24% if symptomatic -Transfuse PPH for platelet count <20K (anticoagulation) or sooner PRN s/s active bleeding HEENT: #Recent [place] Tooth Extractions (~2-[address] CROSSING GUARD): Nearly resolved -NS rinses PRN Pulmonary: Pretransplant PFTs completed on 06/25/16 (at [facility]) showed FEV1 of 86% pr edicted, FVC of 90% predicted and DLCO of 50% predicted. No acute issues Cardiovascular: Pretransplant MUGA completed on 06/24/16 (at [facility]) showed a LVEF of 5 5%. #RLE DVT (first noted 07/04/15, persists on 07/16 doppler in R axial calf): Apixaban ROAD CROSSING GUARD -STOPPED Apixiban 5 mg BID on admission -Tx-dose Lovenox until plts <50K, then decrease to prophy dose Lovenox -See supportive care GI: #GERD: Pepcid ROAD CROSSING GUARD -Prilosec 40 mg daily #Risk for Mucositis: No e/o mucositis currently -Continue oral care with normal saline rinses frequently Renal: #Atypical HUS: Ecalizumab ROAD CROSSING GUARD -Eculizumab q 2 weeks, next dose 07/26 -Monitor for hemolysis flare -Monitor LDH, hapto, complement activity qMon, Thurs Neuro/Psych: #Depression/Anxiety: Lexapro ROAD CROSSING GUARD -Lexapro 10 mg daily -Ativan PRN Infectious Disease: No acute issues #Hx C. Diff Colitis -Flagyl prophy starts on Day [address] Link #Prophylaxis: Bacterial: Levofloxacin starts day -1 and continues until count recovery -For first neutropenic fever, smith cx, CXR, d/c Levofloxacin and begin Cefepime for empiric broadspectrum coverage. Fungal: Fluconazole starts day 0 and continues until Day +30 Viral: Valacyclovir starts day +1; will switch to Acyclovir upon discharge and continue un til Day +365 PCP: Bactrim day of admission through day -1, then restarts around Day +30 to +40 (or Daps [id number] mg po daily if sulfa allergic), pending platelet counts >50K. PCP prophy to continue 6 mos post PBSCT Toxo: (06/17/16) Toxo neg. No further testing required Fluid/Nutrition/Lytes: #Nutrition: Regular diet, No Adriane's yogurt or Kefir #Fluid: NS at 100 mL/hr with chemo #Lytes: -Continue to check chemistries daily -Replace per supportive care protocol. Disposition: Pt with relapsed HL, adm for auto PBSCT. Anticipate 3-4 week hospitalization. 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 I saw the patient, reviewed the history and relevant studies and developed an assessment an d plan. Subjective/Objective: feeling okay. Having some nausea but no emesis. Always has nausea wit h chemo. ROS otherwise negative Summary of day's events and plan: day -1 of BEAM auto - moderate CINV -> controlled by anti-emetics - monitor for fluids - reviewed chemo plan - reviewed auto stem cell infusion Please see the Advanced Practice Provider documentation from today for the details regardin g the assessment and plan. 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 Focused Exam: nad, op clear, cta b, rrr no m/r/g, soft abd, no edema Intake/Output Summary (Last 24 hours) at 07/20/16 1110 Last data filed at 07/20/16 0948 Gross per 24 hour Intake 4770 ml Output 2850 ml Net 1920 ml Recent Labs 07/17/16 2310 07/18/16 2345 07/19/16 2355 NA 143 142 142 K 3.7 3.8 3.6 CL 110* 111* 111* BICARB 22 24 22 BUN 14 13 11 CR 0.58* 0.61 0.60 GLU 116* 116* 108* CA 8.3* 8.2* 8.0* AST 6 5 8 ALT 12 12 12 AP 78 73 65 TBILI 0.3 0.5 0.4 TP 5.9* 5.7* 5.4* ALB 3.2* 3.2* 3.1* Recent Labs 07/17/16 2310 07/18/16 2345 07/19/16 2355 WBC 4.16 2.42* 2.41* RBC 2.90* 2.69* 2.56* HB 8.7* 8.3* 7.9* HCT 26.4* 24.4* 23.2* PLT 188 164 168 NEUTROPERC 91.4* 94.6* 96.3* LYMPHPERC 2.4* 2.5* 2.9* MONOPERC 4.8 2.5* 0.4* BASOPERC 0.0 0.0 0.0 EOSPERC 0.0* 0.0* 0.0* I spent 35 minutes including chart review and discussion with the CLAUDINE. Greater than >50% of time spent in direct counseling and coordination of care including discussion of anti-emeti cs, nausea, chemo, side effects, stem cell infusion, monitoring, timing and plan. [facility] DEPARTMENT: [id number] - [facility] Place of Service: - Inpatient Date of Service: 07/20/2016 Suggested CPT: 54583 - Subsequent, Detailed/High complex Jessica Lomax MD - 07/19/2016 12:39 PM PST Hematologic Malignancies Attending Inpatient Progress Note: Meggan Otero is a 20 y.o. 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, admit for autoBMT Local oncologist: Aashish Hilton MD ([facility]) Benign Hematology: Jim Michael MD ([facility]) Pediatric Heme/Onc: Anh Moreland MD ([place]) Nephrology: Raghav Miller MD ([place]) 04/2015 presented with flank pain CT C/A/P: 11 cm anterior mediastinal mass, pleural effusion & L supraclav adenopathy Needle bx: classical hodgkins, nodular sclerosing type Thoracentesis: reactive/benign BMBx: neg PET: bulky mediastinal mass, SUV 16; bilateral neck SUV 15; also R>L pleural effusion 05/10/15 began ABVE-PC (as per pediatric [id number]) via femoral line 05/16/15 presented with sepsis [...] L neck: classical Hodgkins Above therapy in [place] -> moved to [place] Continued on ecalizumab per benign heme ([facility]) - genetic testing for aHUS PENDING GDP x3 06/2017 CR by PET Goodman placed GCSF stem cell mobilization: 7.3 x10^6 cd34/kg S> Patient doing okay overall. Laying in bed, significant other in room. Patient still noting some nausea. Using ativan and H1 arturo in particular for nausea. No vomiting. No fevers. Physical Examination: Last Vitals: BP 152/92 | Pulse 89 | Temp 36.6 C (97.9 F) | RR 16 | Ht 1.755 m (5' 9.09" ) | Wt 99.1 kg (218 lb 7.6 oz) | SpO2 100% | BMI 32.18 kg/(m^2) 24 Hour Vital Min/Max: Systolic (24hrs), Av , Min:128 , Max:156 Diastolic (24hrs), Av, Min:67, Max:99 Pulse Min: 64 Max: 99 Temp Min: 36.6 C (97.9 F) Max: 36.8 C (98.2 F) Resp Min: 6 Max: 16 SpO2 Min: 98 % Max: 100 % Intake/Output Summary (Last 24 hours) at 07/19/16 1240 Last data filed at 07/19/16 1200 Gross per 24 hour Intake 5392 ml Output 5350 ml Net 42 ml Performance Status: ECOG 1 Constitutional: well appearing HEENT: op clear Lungs: clear to auscultation, good air movement Cardiac: regular rate and rhythm, normal s1, s2 Abdomen: soft, normal active bowel sounds Neuro: nonfocal Lymph nodes: no palpable adenopathy Recent Labs 07/17/16 2310 07/18/16 2345 WBC 4.16 2.42* HB 8.7* 8.3* HCT 26.4* 24.4* PLT 188 164 NEUTROPHILCO 3.80 2.29 LYMPHSABS 0.10* 0.06* Recent Labs 07/17/16 2310 07/18/16 2345 NA 143 142 K 3.7 3.8 BICARB 22 24 BUN 14 13 CR 0.58* 0.61 GLU 116* 116* CA 8.3* 8.2* MG 2.0 2.0 AP 78 73 ALT 12 12 AST 6 5 TBILI 0.3 0.5 ALB 3.2* 3.2* LDTOTAL -- 147 Haptoglobin 07/15/16: 154 Complement CH50 : 0 Assessment and Plan: 20 y.o. 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, admitted for Auto logous Stem Cell Transplant. stg 2 bulky S/p pediatric A(B)VE-PC x4 to CR with bleo omitted c2-4 Then low dose RT 21 Gy (interim PET n/a) Early relapse in radiation field, Bx+ S/p GDP x3 to complete remission Now admitted for Autologous Stem Cell Transplant. This is based on 2 randomized studies which found improved EFS with autoBMT in brittany mosensitive relapsed/refractory Hodgkin Disease and is in accordance with NCCN guidelines. Also plan brentuximab maintenance post-BMT which improves EFS in high risk pts post-auto. S he meets high risk criteria due to early relapse. Would start ~6 wks post-BMT back home. - BEAM prep, patient is day -2 07/19/2016 -----BCNU not reduced for BMI, as high risk & BMI only slightly over 30 ----- cell dose 7.3 ------give entire dose as unable to split to >=4 ------want rapid engraftment due to aHUS & early maintenance - GCSF start d+5 Chemotherapy induced nausea: -continue ativan and H1 arturo, again asked patient to be more proactive asking for prn an tiemetics. Asked RN to be proactive as well as patient does not seem to be doing this on her own. Atypical HUS - ecalizumab 1200 mg q2wks, last 07/12 - dose ordered for 07/26 per [facility] (supportive plan) - monitor for flare of hemolysis - follow LDH, haptoglobin, complement activity every Mon/Nia (LDH and haptoglobin normal o n 07/15/16, complement low on 07/15/16), repeated 07/19/2016 and pending. 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 Hematologic Malignancies Attending Inpatient Progress Note:I rounded today in conjunction w [employer] CLAUDINE I saw the patient, reviewed the history and various studies and developed the assessment an d plan. Please see the CLAUDINE documentation from today for details Meggan Otero is a 20 y.o. 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, admit for autoBMT Local oncologist: Aashish Hilton MD ([facility]) Benign Hematology: Jim Michael MD ([facility]) Pediatric Heme/Onc: Anh Moreland MD ([place]) Nephrology: Raghav Miller MD ([place]) 04/2015 presented with flank pain CT C/A/P: 11 cm anterior mediastinal mass, pleural effusion & L supraclav adenopathy Needle bx: classical hodgkins, nodular sclerosing type Thoracentesis: reactive/benign BMBx: neg PET: bulky mediastinal mass, SUV 16; bilateral neck SUV 15; also R>L pleural effusion 05/10/15 began ABVE-PC (as per pediatric [id number]) via femoral line 05/16/15 presented with sepsis [...] L neck: classical Hodgkins Above therapy in [place] -> moved to [place] Continued on ecalizumab per benign heme (Fernanda) - genetic testing for aHUS PENDING GDP x3 06/2017 CR by PET Goodman placed GCSF stem cell mobilization: 7.3 x10^6 cd34/kg S> Patient doing well. She is noting some nausea, no vomiting. No shortness of breath, dysp delilah on exertion or chest pain. No fevers. 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 No cig/drugs Physical Examination: Performance Status: ECOG 1 BP 139/83 | Pulse 102 | Temp 36.6 C (97.9 F) | RR 16 | Ht 1.755 m (5' 9.09") | Wt 98.7 kg (217 lb 9.5 oz) | SpO2 100% | BMI 32.05 kg/(m^2) Constitutional: well appearing HEENT: benign Lungs: clear to auscultation, good air movement Cardiac: regular rate and rhythm, normal s1, s2 Abdomen: soft, nontender, normal active bowel sounds Neuro: motor nonfocal Lymph nodes: no palpable adenopathy Recent Labs 07/16/16 2359 07/17/16 2310 WBC 8.34 4.16 HB 9.1* 8.7* HCT 26.6* 26.4* PLT 212 188 NEUTROPHILCO 7.60 3.80 LYMPHSABS 0.23* 0.10* Recent Labs 07/15/16 1611 07/16/16 2359 07/17/16 2310 NA 141 < > 144 143 K 3.9 < > 3.8 3.7 BICARB 21 < > 23 22 BUN 14 < > 13 14 CR 0.72 < > 0.63 0.58* GLU 100* < > 120* 116* CA 8.9 < > 8.7 8.3* MG 2.0 < > 1.9 2.0 AP 101* < > 85 78 ALT 17 < > 13 12 AST 14 < > 8 6 TBILI 0.2* < > 0.3 0.3 ALB 3.6 < > 3.4* 3.2* LDTOTAL 236 -- -- -- < > = values in this interval not displayed. Bone marrow, core biopsy 06/21/16 -Normocellular bone marrow without evidence of Hodgkin lymphoma. -Relative erythroid hyperplasia and mildly increased megakaryocytes. -Increased storage iron. Left cervical lymph node, biopsy ([id number], 03/16/2016): - Nodular sclerosis, classical Hodgkin's lymphoma - positive for CD15 and CD30. PAX-5 dim and CD20 negative PET/CT 06/28/16 1. No obvious recurrent malignant disease in the range of the scan. 2.Small subcutaneous nodular foci of FDG uptake in the anterolateral RIGHT and LEFT thi ghs, probably representing therapeutic medicinal injections. 3.The remainder of the examination is unremarkable. PET/CT 03/11/16 There is a hypermetabolic left [...] SVC, 2.8 x 4.6 x 7.2 cm PFTs 06/25/16 Spirometry is consistent with normal physiology. Lung volume testing is consistent with normal physiology. Diffusion capacity is moderately reduced and is not corrected for measured hemoglobin. ECG 06/30/16 SINUS TACHYCARDIA (102) OTHERWISE NORMAL ECG - Cardiac echo 06/24/16 Left ventricle is normal in size and function. Ejection fraction is estimated at 55%. There is grade 1 LV diastolic dysfunction. Normal function of all valves. Assessment and Plan: 20 y.o. 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, for autoBMT stg 2 bulky S/p pediatric A(B)VE-PC x4 to CR with bleo omitted c2-4 Then low dose RT 21 Gy (interim PET n/a) Early relapse in radiation field, Bx+ S/p GDP x3 to complete remission Now admitted for Autologous Stem Cell Transplant. This is based on 2 randomized studies which found improved EFS with autoBMT in brittany mosensitive relapsed/refractory Hodgkins and is in accordance with NCCN guidelines. Also plan brentuximab maintenance post-BMT which improves EFS in high risk pts post-auto. S he meets high risk criteria due to early relapse. Would start ~6 wks post-BMT back home. - BEAM prep, patient is day -3 07/18/2016 -----BCNU not reduced for BMI, as high risk & BMI only slightly over 30 ----- cell dose 7.3 ------give entire dose as unable to split to >=4 ------want rapid engraftment due to aHUS & early maintenance - GCSF start d+5 Chemotherapy induced nausea: -continue ativan and H1 arturo, patient to try to be more proactive asking for prn antieme tics Atypical HUS - ecalizumab 1200 mg q2wks, last 07/12 - dose ordered for 07/26 per Fernanda (supportive plan) - monitor for flare of hemolysis - follow LDH, haptoglobin, complement activity every Mon/Nia DVTs - hx multiple clots - stopped apixaban on admit - checked bilateral LE doppler on admission - switched to LMWH ---- if residual clot, would give tx dose LMWH if Plt >50k ---- otherwise, keep on prophylactic dose LMWH throughout ---- transfuse to keep Plt >= 20k Immunocompromised state/At risk for infection/Prophylactic antibiotic: - standard levoflox, acyclovir, fluconazole prophylaxis - hx C Diff, add metronidazole ppx while on abx Anticipated duration of hospitalization: 3-4 wks Patients Hospital Problem List: Active Hospital Problems 1) *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 Daily NPP Note - Auto Transplant Admit [facility] Attending: Jessica Mac MD [facility] Physician: Constantin Link MD PCP: Aashish Hilton MD Benign Hematology: Jim Michael MD ([facility]) Pediatric Heme/Onc: Anh Moreland MD ([place]) Nephrology: Raghav Miller MD ([place]) Date of Admission: 07/15/2016 Conditioning regimen: BEAM Date of transplant: 07/20/2016 Reason for admission: Planned BEAM-conditioned auto PBSCT for HL 24-Hr Events/Daily Plan: -Relapsed HL: Adm for BEAM auto PBSCT. Tolerating chemo well -Anemia d/t disease and chemo: Above standard transfusion threshold -Atypical HUS: Conts Eculizumab q 2 weeks, next dose 07/26. Monitor for hemolysis flare. Mo nitor LDH, hapto, complement activity qMon, Thurs -RLE DVT (first noted 07/04/15, persists on 07/16 doppler in R axial calf): Apixaban stopped on admission. Conts Tx-dose Lovenox until plts <50K, then decrease to prophy dose Lovenox a nd keep plts >20K -Lytes: WNL. Repletions PRN per standard supportive care orders Subjective: Feeling well, denies complaints. Objective: Last Vitals: BP 143/91 | Pulse 90 | Temp 36.7 C (98.1 F) | RR 18 | Ht 1.755 m (5' 9.09" ) | Wt 98.1 kg (216 lb 4.3 oz) | SpO2 98% | BMI 31.85 kg/(m^2) 24 Hour Vital Min/Max: Systolic (24hrs), Av , Min:97 , Max:144 Diastolic (24hrs), Av, Min:51, Max:91 Pulse Min: 85 Max: 127 Temp Min: 36.5 C (97.7 F) Max: 37.1 C (98.8 F) Resp Min: 18 Max: 18 SpO2 Min: 98 % Max: 99 % Intake/Output Summary (Last 24 hours) at 07/17/16 1451 Last data filed at 07/17/16 1445 Gross per 24 hour Intake 2602.33 ml Output 3550 ml Net -947.67 ml Physical Exam: General: This is a female in no acute distress. HEENT: PERRL. Sclerae anicteric. Mucosa pink and moist without erythema or exudate. Skin: No rash, lesions noted. Chest: Lungs clear to auscultation bilat. CV: RRR, no murmurs. Abdomen: S/NT/ND with NABS. No HSM appreciated. Extremities: Pulses strong and equal bilaterally. No c/c/e. Neuro: Alert and oriented x 3. Grossly nonfocal exam. CVC: RCW Goodman in place w/o inflammation or induration. Dressing c/d/i Recent Labs 07/15/16 1611 07/16/16 0150 07/16/16 2359 NA 141 141 144 K 3.9 3.6 3.8 CL 109* 110* 112* BICARB 21 20* 23 BUN 14 12 13 CR 0.72 0.71 0.63 GLU 100* 162* 120* CA 8.9 8.5* 8.7 AST 14 11 8 ALT 17 18 13 AP 101* 101* 85 TBILI 0.2* 0.3 0.3 TP 6.7 6.5 6.1* ALB 3.6 3.7 3.4* Recent Labs 07/15/16 1611 07/16/16 0150 07/16/16 2359 WBC 6.69 10.38 8.34 RBC 3.35* 3.39* 2.95* HB 10.0* 10.3* 9.1* HCT 30.4* 30.4* 26.6* PLT 228 196 212 NEUTROPERC 78.3* 93.6* 91.1* LYMPHPERC 9.9* 4.3* 2.8* MONOPERC 10.5* 0.8* 4.9 BASOPERC 0.1 0.1 0.1 EOSPERC 0.3* 0.0* 0.0* Meds: Reviewed on rounds, see current MAR for medication list Past Medical History: Meggan Otero is a 20 y.o. 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, admit for autoBMT Local oncologist: Aashish Hilton MD ([facility]) Benign Hematology: Jim Michael MD ([facility]) Pediatric Heme/Onc: Anh Moreland MD ([place]) Nephrology: Raghav Miller MD ([place]) 04/[address] presented with flank pain CT C/A/P: 11 cm anterior mediastinal mass, pleural effusion & L supraclav adenopathy Needle bx: classical hodgkins, nodular sclerosing type Thoracentesis: reactive/benign BMBx: neg PET: bulky mediastinal mass, SUV 16; bilateral neck SUV 15; also R>L pleural effusion 05/10/15 began ABVE-PC (as per pediatric [id number]) via femoral line 05/16/15 presented with sepsis [...] L neck: classical Hodgkins Above therapy in [place] -> moved to [place] Continued on ecalizumab per benign heme (Fernanda) - genetic testing for aHUS PENDING GDP x3 06/2017 CR by PET Goodman placed GCSF stem cell mobilization: 7.3 x10^6 cd34/kg Hospitalization History: Hematology: #Relapsed HL Conditioning regimen: BEAM -Carmustine 300 mg/m IV on day -6 -Etoposide 200 mg/m IV daily on days -5, -4,- 3, and -1 -Cytarabine 400 mg/m daily on days -5, -4,- 3, and -1 -Melphalan 140 mg/m IV on day -1 Stem cell transplant -Day: -3 -Due for infusion of autologous product on 07/20/16 Post-BMT Plan: -Plan for Brentuximab maintenance starting ~6 wks post-BMT back home which improves EFS in high risk pts post-auto. She meets high risk criteria due to early relapse. #Anemia d/t disease and chemo -See supportive care #Supportive Care: Growth Factor: Due to begin daily Zarxio dosing on Day +5 (07/26) and continue until ANC > 1500 x 2 consecutive days. Labs: Continue to check CBC with diff daily Transfusion parameters: -Transfuse PRBCs for HCT <21% if asymptomatic OR <24% if symptomatic -Transfuse PPH for platelet count <20K (anticoagulation) or sooner PRN s/s active bleeding HEENT: #Recent [place] Tooth Extractions (~2-[address] CROSSING GUARD): Nearly resolved -NS rinses PRN Pulmonary: Pretransplant PFTs completed on 06/25/16 (at [facility]) showed FEV1 of 86% pr edicted, FVC of 90% predicted and DLCO of 50% predicted. No acute issues Cardiovascular: Pretransplant MUGA completed on 06/24/16 (at [facility]) showed a LVEF of 5 5%. #RLE DVT (first noted 07/04/15, persists on 07/16 doppler in R axial calf): Apixaban ROAD CROSSING GUARD -STOPPED Apixiban 5 mg BID on admission -Tx-dose Lovenox until plts <50K, then decrease to prophy dose Lovenox -See supportive care GI: #GERD: Pepcid ROAD CROSSING GUARD -Prilosec 40 mg daily #Risk for Mucositis: No e/o mucositis currently -Continue oral care with normal saline rinses frequently Renal: #Atypical HUS: Ecalizumab ROAD CROSSING GUARD -Eculizumab q 2 weeks, next dose 07/26 -Monitor for hemolysis flare -Monitor LDH, hapto, complement activity qMon, Thurs Musculoskeletal: No acute issues Neuro/Psych: #Depression/Anxiety: Lexapro ROAD CROSSING GUARD -Lexapro 10 mg daily -Ativan PRN Skin: No acute issues Endocrine: No acute issues Infectious Disease: No acute issues #Hx C. Diff Colitis -Flagyl prophy starts on Day [address] Link #Prophylaxis: Bacterial: Levofloxacin starts day -1 and continues until count recovery -For first neutropenic fever, smith cx, CXR, d/c Levofloxacin and begin Cefepime for empiric broadspectrum coverage. Fungal: Fluconazole starts day 0 and continues until Day +30 Viral: Valacyclovir starts day +1; will switch to Acyclovir upon discharge and continue un til Day +365 PCP: Bactrim day of admission through day -1, then restarts around Day +30 to +40 (or Daps [id number] mg po daily if sulfa allergic), pending platelet counts >50K. PCP prophy to continue 6 mos post PBSCT Toxo: (06/17/16) Toxo neg. No further testing required Fluid/Nutrition/Lytes: #Nutrition: Regular diet, No Adriane's yogurt or Kefir #Fluid: NS at 100 mL/hr with chemo #Lytes: -Continue to check chemistries daily -Replace per supportive care protocol. Disposition: Pt with relapsed HL, adm for auto PBSCT. Anticipate 3-4 week hospitalization. MORENA Marshall [address] [facility] Mailcode: [id number] [place] [address] Yesi Lomax MD - 07/17/2016 9:59 AM PSTFormatting of this note might be different from the orig inal. Hematologic Malignancies Attending Inpatient Progress Note:I rounded today in conjunction w [employer] CLAUDINE I saw the patient, reviewed the history and various studies and developed the assessment an d plan. Please see the CLAUDINE documentation from today for details Meggan Otero is a 20 y.o. 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, admit for autoBMT Local oncologist: Aashish Hilton MD ([facility]) Benign Hematology: Jim Michael MD ([facility]) Pediatric Heme/Onc: Anh Moreland MD ([place]) Nephrology: Raghav Miller MD ([place]) 04/2015 presented with flank pain CT C/A/P: 11 cm anterior mediastinal mass, pleural effusion & L supraclav adenopathy Needle bx: classical hodgkins, nodular sclerosing type Thoracentesis: reactive/benign BMBx: neg PET: bulky mediastinal mass, SUV 16; bilateral neck SUV 15; also R>L pleural effusion 05/10/15 began ABVE-PC (as per pediatric [id number]) via femoral line 05/16/15 presented with sepsis [...] L neck: classical Hodgkins Above therapy in [place] -> moved to [place] Continued on ecalizumab per benign heme (Roqueoughadrianna) - genetic testing for aHUS PENDING GDP x3 06/2017 CR by PET Goodman placed GCSF stem cell mobilization: 7.3 x10^6 cd34/kg S> Patient doing well. No shortness of breath, dyspnea on exertion or chest pain. Some naus ea, no vomiting. 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 No cig/drugs Physical Examination: Performance Status: ECOG 1 BP 128/68 | Pulse 98 | Temp 36.7 C (98.1 F) | RR 18 | Ht 1.755 m (5' 9.09") | Wt 98.1 k g (216 lb 4.3 oz) | SpO2 98% | BMI 31.85 kg/(m^2) Constitutional: well appearing HEENT: benign Lungs: clear to auscultation, good air movement Cardiac: regular rate and rhythm, normal s1, s2 Abdomen: soft, nontender, normal active bowel sounds Neuro: motor nonfocal Lymph nodes: no palpable adenopathy Recent Labs 07/16/16 0150 07/16/16 2359 WBC 10.38 8.34 HB 10.3* 9.1* HCT 30.4* 26.6* PLT 196 212 NEUTROPHILCO 9.72* 7.60 LYMPHSABS 0.45* 0.23* Recent Labs 07/15/16 1611 07/16/16 0150 07/16/16 2359 NA 141 141 144 K 3.9 3.6 3.8 BICARB 21 20* 23 BUN 14 12 13 CR 0.72 0.71 0.63 GLU 100* 162* 120* CA 8.9 8.5* 8.7 MG 2.0 1.8 1.9 AP 101* 101* 85 ALT 17 18 13 AST 14 11 8 TBILI 0.2* 0.3 0.3 ALB 3.6 3.7 3.4* LDTOTAL 236 -- -- Bone marrow, core biopsy 06/21/16 -Normocellular bone marrow without evidence of Hodgkin lymphoma. -Relative erythroid hyperplasia and mildly increased megakaryocytes. -Increased storage iron. Left cervical lymph node, biopsy ([id number], 03/16/2016): - Nodular sclerosis, classical Hodgkin's lymphoma - positive for CD15 and CD30. PAX-5 dim and CD20 negative PET/CT 06/28/16 1. No obvious recurrent malignant disease in the range of the scan. 2.Small subcutaneous nodular foci of FDG uptake in the anterolateral RIGHT and LEFT thi ghs, probably representing therapeutic medicinal injections. 3.The remainder of the examination is unremarkable. PET/CT 03/11/16 There is a hypermetabolic left [...] SVC, 2.8 x 4.6 x 7.2 cm PFTs 06/25/16 Spirometry is consistent with normal physiology. Lung volume testing is consistent with normal physiology. Diffusion capacity is moderately reduced and is not corrected for measured hemoglobin. ECG 06/30/16 SINUS TACHYCARDIA (102) OTHERWISE NORMAL ECG - Cardiac echo 06/24/16 Left ventricle is normal in size and function. Ejection fraction is estimated at 55%. There is grade 1 LV diastolic dysfunction. Normal function of all valves. Assessment and Plan: 20 y.o. 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, for autoBMT stg 2 bulky S/p pediatric A(B)VE-PC x4 to CR with bleo omitted c2-4 Then low dose RT 21 Gy (interim PET n/a) Early relapse in radiation field, Bx+ S/p GDP x3 to complete remission Now admitted for Autologous Stem Cell Transplant. This is based on 2 randomized studies which found improved EFS with autoBMT in brittany mosensitive relapsed/refractory Hodgkins and is in accordance with NCCN guidelines. Also plan brentuximab maintenance post-BMT which improves EFS in high risk pts post-auto. S he meets high risk criteria due to early relapse. Would start ~6 wks post-BMT back home. - BEAM prep -----BCNU not reduced for BMI, as high risk & BMI only slightly over 30 - cell dose 7.3 ------ give entire dose as unable to split to >=4 ------ want rapid engraftment due to aHUS & early maintenance - GCSF start d+5 Atypical HUS - ecalizumab 1200 mg q2wks, last 07/12 - dose ordered for 07/26 per Fernanda (supportive plan) - monitor for flare of hemolysis - follow LDH, haptoglobin, complement activity every Mon/Nia DVTs - hx multiple clots - stopped apixaban on admit - checked bilateral LE doppler on admission - switched to LMWH ---- if residual clot, would give tx dose LMWH if Plt >50k ---- otherwise, keep on prophylactic dose LMWH throughout ---- transfuse to keep Plt >= 20k Immunocompromised state/At risk for infection/Prophylactic antibiotic: - standard levoflox, acyclovir, fluconazole prophylaxis - hx C Diff, add metronidazole ppx while on abx Anticipated duration of hospitalization: 3-4 wks Patients Hospital Problem List: Active Hospital Problems 1) *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) 2) HUS (hemolytic uremic syndrome), atypical (HCC) 3) Hx of Clostridium difficile infection 4) Chronic deep vein thrombosis (DVT) (HCC) 5) Obesity, Class I, BMI 30-34.9 6) Immunocompromised state (HCC) 7) Encounter for chemotherapy management Jessica Mac MD documented in thi s encounter Plan of Treatment + + +--------+ + + | Name | Type | Priori | Associated Diagnoses | Date/Time | | | | ty | | | + + +--------+ + + | TRANSFUSE RED CELLS, | Nursing | Routin | | 07/25/2016 4:36 AM | | LEUKOREDUCED | Transfuse | e | | PST | + + +--------+ + + | TRANSFUSE RED CELLS, | Nursing | Routin | | 07/25/2016 4:36 AM | | LEUKOREDUCED | Transfuse | e | | PST | + + +--------+ + + + +------+--------+ + + | Name | Type | Priori | Associated Diagnoses | Order Schedule | | | | ty | | | + +------+--------+ + + | CULTURE, SPUTUM | Lab | Routin | | As Needed for 1 | | | | e | | Occurrences starting | | | | | | 07/15/2016 | + +------+--------+ + + documented as of this encounter Procedures + +--------+ + + + | Procedure Name | Priori | Date/Time | Associated Diagnosis | Comments | | | ty | | | | + +--------+ + + + | TRANSFUSE RED CELLS, | Routin | 08/07/2016 | | | | LEUKOREDUCED | e | 10:59 AM | | | | | | PST | | | + +--------+ + + + | VANCOMYCIN, TROUGH | Routin | 08/07/2016 | | Results for this | | | e | 8:45 AM | | procedure are in the | | | | PST | | results section. | + +--------+ + + + | PRODUCT - RED CELLS | Routin | 08/07/2016 | | Results for this | | LEUKOREDUCED | e | 1:52 AM | | procedure are in the | | | | PST | | results section. | + +--------+ + + + | ANTIBODY SCREEN | Routin | 08/07/2016 | | Results for this | | | e | 1:52 AM | | procedure are in the | | | | PST | | results section. | + +--------+ + + + | TYPE AND SCREEN | Routin | 08/07/2016 | | Results for this | | | e | 1:52 AM | | procedure are in the | | | | PST | | results section. | + +--------+ + + + | ABO & RH TYPE | Routin | 08/07/2016 | | Results for this | | | e | 1:52 AM | | procedure are in the | | | | PST | | results section. | + +--------+ + + + | RBC MORPHOLOGY | Routin | 08/07/2016 | | Results for this | | | e | 12:03 AM | | procedure are in the | | | | PST | | results section. | + +--------+ + + + | CBC AND AUTO DIFF | Routin | 08/07/2016 | | Results for this | | | e | 12:03 AM | | procedure are in the | | | | PST | | results section. | + +--------+ + + + | CBC, WITH | Routin | 08/07/2016 | | Results for this | | DIFFERENTIAL | e | 12:03 AM | | procedure are in the | | | | PST | | results section. | + +--------+ + + + | COMPLETE METABOLIC | Routin | 08/07/2016 | | Results for this | | SET | e | 12:03 AM | | procedure are in the | | (NA,K,CL,CO2,BUN,CRE | | PST | | results section. | | AT,GLUC,CA,AST,ALT,B | | | | | | VIVIENNE TOTAL,ALK | | | | | | PHOS,ALB,PROT TOTAL) | | | | | + +--------+ + + + | PHOSPHORUS, PLASMA | Routin | 08/07/2016 | | Results for this | | | e | 12:03 AM | | procedure are in the | | | | PST | | results section. | + +--------+ + + + | MAGNESIUM, PLASMA | Routin | 08/07/2016 | | Results for this | | | e | 12:03 AM | | procedure are in the | | | | PST | | results section. | + +--------+ + + + | MCKENZIE THOMAS) BY PCR | Routin | 08/06/2016 | | Results for this | | | e | 4:02 PM | | procedure are in the | | | | PST | | results section. | + +--------+ + + + | TRANSFUSE PLATELET | Routin | 08/06/2016 | | | | PHERESIS, | e | 8:40 AM | | | | LEUKOREDUCED | | PST | | | + +--------+ + + + | PRODUCT - PLATELET | Routin | 08/06/2016 | | Results for this | | PHERESIS | e | 12:10 AM | | procedure are in the | | LEUKOREDUCED | | PST | | results section. | + +--------+ + + + | RBC MORPHOLOGY | Routin | 08/05/2016 | | Results for this | | | e | 11:30 PM | | procedure are in the | | | | PST | | results section. | + +--------+ + + + | CBC AND AUTO DIFF | Routin | 08/05/2016 | | Results for this | | | e | 11:30 PM | | procedure are in the | | | | PST | | results section. | + +--------+ + + + | CBC, WITH | Routin | 08/05/2016 | | Results for this | | DIFFERENTIAL | e | 11:30 PM | | procedure are in the | | | | PST | | results section. | + +--------+ + + + | COMPLETE METABOLIC | Routin | 08/05/2016 | | Results for this | | SET | e | 11:30 PM | | procedure are in the | | (NA,K,CL,CO2,BUN,CRE | | PST | | results section. | | AT,GLUC,CA,AST,ALT,B | | | | | | VIVIENNE TOTAL,ALK | | | | | | PHOS,ALB,PROT TOTAL) | | | | | + +--------+ + + + | PHOSPHORUS, PLASMA | Routin | 08/05/2016 | | Results for this | | | e | 11:30 PM | | procedure are in the | | | | PST | | results section. | + +--------+ + + + | MAGNESIUM, PLASMA | Routin | 08/05/2016 | | Results for this | | | e | 11:30 PM | | procedure are in the | | | | PST | | results section. | + +--------+ + + + | TRANSFUSE PLATELET | Routin | 08/05/2016 | | | | PHERESIS, | e | 6:23 AM | | | | LEUKOREDUCED | | PST | | | + +--------+ + + + | PRODUCT - PLATELET | Routin | 08/05/2016 | | Results for this | | PHERESIS | e | 1:08 AM | | procedure are in the | | LEUKOREDUCED | | PST | | results section. | + +--------+ + + + | RBC MORPHOLOGY | Routin | 08/04/2016 | | Results for this | | | e | 11:55 PM | | procedure are in the | | | | PST | | results section. | + +--------+ + + + | CBC AND AUTO DIFF | Routin | 08/04/2016 | | Results for this | | | e | 11:55 PM | | procedure are in the | | | | PST | | results section. | + +--------+ + + + | CBC, WITH | Routin | 08/04/2016 | | Results for this | | DIFFERENTIAL | e | 11:55 PM | | procedure are in the | | | | PST | | results section. | + +--------+ + + + | COMPLETE METABOLIC | Routin | 08/04/2016 | | Results for this | | SET | e | 11:55 PM | | procedure are in the | | (NA,K,CL,CO2,BUN,CRE | | PST | | results section. | | AT,GLUC,CA,AST,ALT,B | | | | | | VIVIENNE TOTAL,ALK | | | | | | PHOS,ALB,PROT TOTAL) | | | | | + +--------+ + + + | COMPLEMENT ACTIVITY | Routin | 08/04/2016 | | Results for this | | ENZYME IMMUNOASSAY, | e | 11:55 PM | | procedure are in the | | TOTAL | | PST | | results section. | + +--------+ + + + | PHOSPHORUS, PLASMA | Routin | 08/04/2016 | | Results for this | | | e | 11:55 PM | | procedure are in the | | | | PST | | results section. | + +--------+ + + + | HAPTOGLOBIN | Routin | 08/04/2016 | | Results for this | | | e | 11:55 PM | | procedure are in the | | | | PST | | results section. | + +--------+ + + + | URIC ACID, PLASMA | Routin | 08/04/2016 | | Results for this | | | e | 11:55 PM | | procedure are in the | | | | PST | | results section. | + +--------+ + + + | MAGNESIUM, PLASMA | Routin | 08/04/2016 | | Results for this | | | e | 11:55 PM | | procedure are in the | | | | PST | | results section. | + +--------+ + + + | LDH TOTAL, PLASMA | Routin | 08/04/2016 | | Results for this | | | e | 11:55 PM | | procedure are in the | | | | PST | | results section. | + +--------+ + + + | PICC LINE | Routin | 08/04/2016 | | Results for this | | | e | 11:50 AM | | procedure are in the | | | | PST | | results section. | + +--------+ + + + | TRANSFUSE PLATELET | Routin | 08/04/2016 | | | | PHERESIS, | e | 6:08 AM | | | | LEUKOREDUCED | | PST | | | + +--------+ + + + | PRODUCT - PLATELET | Routin | 08/04/2016 | | Results for this | | PHERESIS | e | 12:46 AM | | procedure are in the | | LEUKOREDUCED | | PST | | results section. | + +--------+ + + + | RBC MORPHOLOGY | Routin | 08/03/2016 | | Results for this | | | e | 11:45 PM | | procedure are in the | | | | PST | | results section. | + +--------+ + + + | CBC AND AUTO DIFF | Routin | 08/03/2016 | | Results for this | | | e | 11:45 PM | | procedure are in the | | | | PST | | results section. | + +--------+ + + + | CBC, WITH | Routin | 08/03/2016 | | Results for this | | DIFFERENTIAL | e | 11:45 PM | | procedure are in the | | | | PST | | results section. | + +--------+ + + + | COMPLETE METABOLIC | Routin | 08/03/2016 | | Results for this | | SET | e | 11:45 PM | | procedure are in the | | (NA,K,CL,CO2,BUN,CRE | | PST | | results section. | | AT,GLUC,CA,AST,ALT,B | | | | | | VIVIENNE TOTAL,ALK | | | | | | PHOS,ALB,PROT TOTAL) | | | | | + +--------+ + + + | PHOSPHORUS, PLASMA | Routin | 08/03/2016 | | Results for this | | | e | 11:45 PM | | procedure are in the | | | | PST | | results section. | + +--------+ + + + | MAGNESIUM, PLASMA | Routin | 08/03/2016 | | Results for this | | | e | 11:45 PM | | procedure are in the | | | | PST | | results section. | + +--------+ + + + | VANCOMYCIN, TROUGH | Routin | 08/03/2016 | | Results for this | | | e | 2:46 PM | | procedure are in the | | | | PST | | results section. | + +--------+ + + + | TRANSFUSE PLATELET | Routin | 08/03/2016 | | | | PHERESIS, | e | 1:00 PM | | | | LEUKOREDUCED | | PST | | | + +--------+ + + + | PRODUCT - PLATELET | Routin | 08/03/2016 | | Results for this | | PHERESIS | e | 9:54 AM | | procedure are in the | | LEUKOREDUCED | | PST | | results section. | + +--------+ + + + | X-RAY CHEST 2 VIEW | Urgent | 08/03/2016 | | Results for this | | | | 9:54 AM | | procedure are in the | | | | PST | | results section. | + +--------+ + + + | RBC MORPHOLOGY | Routin | 08/03/2016 | | Results for this | | | e | 6:48 AM | | procedure are in the | | | | PST | | results section. | + +--------+ + + + | CBC AND AUTO DIFF | Routin | 08/03/2016 | | Results for this | | | e | 6:48 AM | | procedure are in the | | | | PST | | results section. | + +--------+ + + + | MANUAL DIFFERENTIAL | Routin | 08/03/2016 | | Results for this | | | e | 6:48 AM | | procedure are in the | | | | PST | | results section. | + +--------+ + + + | CBC, WITH | Routin | 08/03/2016 | | Results for this | | DIFFERENTIAL | e | 6:48 AM | | procedure are in the | | | | PST | | results section. | + +--------+ + + + | COMPLETE METABOLIC | Routin | 08/03/2016 | | Results for this | | SET | e | 6:48 AM | | procedure are in the | | (NA,K,CL,CO2,BUN,CRE | | PST | | results section. | | AT,GLUC,CA,AST,ALT,B | | | | | | VIVIENNE TOTAL,ALK | | | | | | PHOS,ALB,PROT TOTAL) | | | | | + +--------+ + + + | PHOSPHORUS, PLASMA | Routin | 08/03/2016 | | Results for this | | | e | 6:48 AM | | procedure are in the | | | | PST | | results section. | + +--------+ + + + | MAGNESIUM, PLASMA | Routin | 08/03/2016 | | Results for this | | | e | 6:48 AM | | procedure are in the | | | | PST | | results section. | + +--------+ + + + | CULTURE, BLOOD BACTI | Routin | 08/02/2016 | | Results for this | | & YEAST [facility] | e | 4:10 AM | | procedure are in the | | | | PST | | results section. | + +--------+ + + + | CBC AND AUTO DIFF | Routin | 08/02/2016 | | Results for this | | | e | 4:10 AM | | procedure are in the | | | | PST | | results section. | + +--------+ + + + | MANUAL DIFFERENTIAL | Routin | 08/02/2016 | | Results for this | | | e | 4:10 AM | | procedure are in the | | | | PST | | results section. | + +--------+ + + + | INR | Routin | 08/02/2016 | | Results for this | | | e | 4:10 AM | | procedure are in the | | | | PST | | results section. | + +--------+ + + + | CBC, WITH | Routin | 08/02/2016 | | Results for this | | DIFFERENTIAL | e | 4:10 AM | | procedure are in the | | | | PST | | results section. | + +--------+ + + + | COMPLETE METABOLIC | Routin | 08/02/2016 | | Results for this | | SET | e | 4:10 AM | | procedure are in the | | (NA,K,CL,CO2,BUN,CRE | | PST | | results section. | | AT,GLUC,CA,AST,ALT,B | | | | | | VIVIENNE TOTAL,ALK | | | | | | PHOS,ALB,PROT TOTAL) | | | | | + +--------+ + + + | COMPLEMENT ACTIVITY | Routin | 08/02/2016 | | Results for this | | ENZYME IMMUNOASSAY, | e | 4:10 AM | | procedure are in the | | TOTAL | | PST | | results section. | + +--------+ + + + | CULTURE, BLOOD BACTI | Routin | 08/02/2016 | | Results for this | | & YEAST | e | 4:10 AM | | procedure are in the | | | | PST | | results section. | + +--------+ + + + | PHOSPHORUS, PLASMA | Routin | 08/02/2016 | | Results for this | | | e | 4:10 AM | | procedure are in the | | | | PST | | results section. | + +--------+ + + + | HAPTOGLOBIN | Routin | 08/02/2016 | | Results for this | | | e | 4:10 AM | | procedure are in the | | | | PST | | results section. | + +--------+ + + + | URIC ACID, PLASMA | Routin | 08/02/2016 | | Results for this | | | e | 4:10 AM | | procedure are in the | | | | PST | | results section. | + +--------+ + + + | MAGNESIUM, PLASMA | Routin | 08/02/2016 | | Results for this | | | e | 4:10 AM | | procedure are in the | | | | PST | | results section. | + +--------+ + + + | LDH TOTAL, PLASMA | Routin | 08/02/2016 | | Results for this | | | e | 4:10 AM | | procedure are in the | | | | PST | | results section. | + +--------+ + + + | TRANSFUSE PLATELET | Routin | 08/01/2016 | | | | PHERESIS, | e | 6:43 AM | | | | LEUKOREDUCED | | PST | | | + +--------+ + + + | PRODUCT - PLATELET | Routin | 08/01/2016 | | Results for this | | PHERESIS | e | 1:12 AM | | procedure are in the | | LEUKOREDUCED | | PST | | results section. | + +--------+ + + + | CULTURE, BLOOD BACTI | Routin | 07/31/2016 | | Results for this | | & YEAST [facility] | e | 11:49 PM | | procedure are in the | | | | PST | | results section. | + +--------+ + + + | CBC AND AUTO DIFF | Routin | 07/31/2016 | | Results for this | | | e | 11:49 PM | | procedure are in the | | | | PST | | results section. | + +--------+ + + + | CBC, WITH | Routin | 07/31/2016 | | Results for this | | DIFFERENTIAL | e | 11:49 PM | | procedure are in the | | | | PST | | results section. | + +--------+ + + + | VANCOMYCIN, TROUGH | Routin | 07/31/2016 | | Results for this | | | e | 11:49 PM | | procedure are in the | | | | PST | | results section. | + +--------+ + + + | COMPLETE METABOLIC | Routin | 07/31/2016 | | Results for this | | SET | e | 11:49 PM | | procedure are in the | | (NA,K,CL,CO2,BUN,CRE | | PST | | results section. | | AT,GLUC,CA,AST,ALT,B | | | | | | VIVIENNE TOTAL,ALK | | | | | | PHOS,ALB,PROT TOTAL) | | | | | + +--------+ + + + | CULTURE, BLOOD BACTI | Routin | 07/31/2016 | | Results for this | | & YEAST | e | 11:49 PM | | procedure are in the | | | | PST | | results section. | + +--------+ + + + | PHOSPHORUS, PLASMA | Routin | 07/31/2016 | | Results for this | | | e | 11:49 PM | | procedure are in the | | | | PST | | results section. | + +--------+ + + + | MAGNESIUM, PLASMA | Routin | 07/31/2016 | | Results for this | | | e | 11:49 PM | | procedure are in the | | | | PST | | results section. | + +--------+ + + + | TRANSFUSE RED CELLS, | Routin | 07/31/2016 | | | | LEUKOREDUCED | e | 3:50 PM | | | | | | PST | | | + +--------+ + + + | X-RAY CHEST 2 VIEW | Routin | 07/31/2016 | | Results for this | | | e | 12:14 PM | | procedure are in the | | | | PST | | results section. | + +--------+ + + + | C. DIFFICILE TOXIN, | Routin | 07/31/2016 | | Results for this | | W/REFLEX | e | 8:21 AM | | procedure are in the | | CONFIRMATION IF | | PST | | results section. | | INDETERMINATE | | | | | | RESULTS | | | | | + +--------+ + + + | PRODUCT - PLATELET | Routin | 07/31/2016 | | Results for this | | PHERESIS | e | 2:14 AM | | procedure are in the | | LEUKOREDUCED | | PST | | results section. | + +--------+ + + + | PRODUCT - RED CELLS | Routin | 07/31/2016 | | Results for this | | LEUKOREDUCED | e | 2:14 AM | | procedure are in the | | | | PST | | results section. | + +--------+ + + + | CBC AND AUTO DIFF | Routin | 07/30/2016 | | Results for this | | | e | 11:48 PM | | procedure are in the | | | | PST | | results section. | + +--------+ + + + | CBC, WITH | Routin | 07/30/2016 | | Results for this | | DIFFERENTIAL | e | 11:48 PM | | procedure are in the | | | | PST | | results section. | + +--------+ + + + | COMPLETE METABOLIC | Routin | 07/30/2016 | | Results for this | | SET | e | 11:48 PM | | procedure are in the | | (NA,K,CL,CO2,BUN,CRE | | PST | | results section. | | AT,GLUC,CA,AST,ALT,B | | | | | | VIVIENNE TOTAL,ALK | | | | | | PHOS,ALB,PROT TOTAL) | | | | | + +--------+ + + + | PHOSPHORUS, PLASMA | Routin | 07/30/2016 | | Results for this | | | e | 11:48 PM | | procedure are in the | | | | PST | | results section. | + +--------+ + + + | MAGNESIUM, PLASMA | Routin | 07/30/2016 | | Results for this | | | e | 11:48 PM | | procedure are in the | | | | PST | | results section. | + +--------+ + + + | X-RAY PORTABLE CHEST | Routin | 07/30/2016 | | Results for this | | 1 VIEW | e | 10:19 PM | | procedure are in the | | | | PST | | results section. | + +--------+ + + + | CULTURE, BLOOD BACTI | Routin | 07/30/2016 | | Results for this | | & YEAST [facility] | e | 9:59 PM | | procedure are in the | | | | PST | | results section. | + +--------+ + + + | CULTURE, BLOOD BACTI | Routin | 07/30/2016 | | Results for this | | & YEAST | e | 9:59 PM | | procedure are in the | | | | PST | | results section. | + +--------+ + + + | TRANSTHORACIC | Routin | 07/30/2016 | | Results for this | | ECHOCARDIOGRAM, | e | 4:57 PM | | procedure are in the | | ADULT | | PST | | results section. | + +--------+ + + + | VANCOMYCIN, TROUGH | Routin | 07/30/2016 | | Results for this | | | e | 2:38 PM | | procedure are in the | | | | PST | | results section. | + +--------+ + + + | PROCEDURE NOTE | Routin | 07/30/2016 | | Results for this | | | e | 9:51 AM | | procedure are in the | | | | PST | | results section. 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 | | | | | multiple regions | | | | | | (HCC) | | + +--------+ + + + | CULTURE, STERILITY | Urgent | 07/30/2016 | | Results for this | | BACTI | | 8:32 AM | | procedure are in the | | | | PST | | results section. | + +--------+ + + + | CULTURE, STERILITY | Urgent | 07/30/2016 | | Results for this | | BACTI | | 8:32 AM | | procedure are in the | | | | PST | | results section. | + +--------+ + + + | PORT REMOVAL | Urgent | 07/30/2016 | MRSA BACTERIMIA | | | | | 7:55 AM | | | | | Surgic | PST | | | | | al | | | | + +--------+ + + + | PRODUCT - PLATELET | Urgent | 07/30/2016 | | Results for this | | PHERESIS | | 7:20 AM | | procedure are in the | | LEUKOREDUCED | | PST | | results section. | + +--------+ + + + | TRANSFUSE RED CELLS, | Routin | 07/30/2016 | | | | LEUKOREDUCED | e | 6:10 AM | | | | | | PST | | | + +--------+ + + + | CULTURE, BLOOD BACTI | Routin | 07/30/2016 | | Results for this | | & YEAST [facility] | e | 2:30 AM | | procedure are in the | | | | PST | | results section. | + +--------+ + + + | PLATELET COUNT, | Urgent | 07/30/2016 | | Results for this | | WHOLE BLOOD | | 2:30 AM | | procedure are in the | | | | PST | | results section. | + +--------+ + + + | ANTIBODY SCREEN | Routin | 07/30/2016 | | Results for this | | | e | 2:30 AM | | procedure are in the | | | | PST | | results section. | + +--------+ + + + | TYPE AND SCREEN | Routin | 07/30/2016 | | Results for this | | | e | 2:30 AM | | procedure are in the | | | | PST | | results section. | + +--------+ + + + | ABO & RH TYPE | Routin | 07/30/2016 | | Results for this | | | e | 2:30 AM | | procedure are in the | | | | PST | | results section. | + +--------+ + + + | CULTURE, BLOOD BACTI | Routin | 07/30/2016 | | Results for this | | & YEAST | e | 2:30 AM | | procedure are in the | | | | PST | | results section. | + +--------+ + + + | TRANSFUSE PLATELET | Routin | 07/30/2016 | | | | PHERESIS, | e | 2:16 AM | | | | LEUKOREDUCED | | PST | | | + +--------+ + + + | PRODUCT - RED CELLS | Routin | 07/30/2016 | | Results for this | | LEUKOREDUCED | e | 1:02 AM | | procedure are in the | | | | PST | | results section. | + +--------+ + + + | CBC AND AUTO DIFF | Routin | 07/30/2016 | | Results for this | | | e | 12:08 AM | | procedure are in the | | | | PST | | results section. | + +--------+ + + + | CBC, WITH | Routin | 07/30/2016 | | Results for this | | DIFFERENTIAL | e | 12:08 AM | | procedure are in the | | | | PST | | results section. | + +--------+ + + + | COMPLETE METABOLIC | Routin | 07/30/2016 | | Results for this | | SET | e | 12:08 AM | | procedure are in the | | (NA,K,CL,CO2,BUN,CRE | | PST | | results section. | | AT,GLUC,CA,AST,ALT,B | | | | | | VIVIENNE TOTAL,ALK | | | | | | PHOS,ALB,PROT TOTAL) | | | | | + +--------+ + + + | PHOSPHORUS, PLASMA | Routin | 07/30/2016 | | Results for this | | | e | 12:08 AM | | procedure are in the | | | | PST | | results section. | + +--------+ + + + | MAGNESIUM, PLASMA | Routin | 07/30/2016 | | Results for this | | | e | 12:08 AM | | procedure are in the | | | | PST | | results section. | + +--------+ + + + | CARDIOLOGY | | 07/30/2016 | | Results for this | | | | 12:00 AM | | procedure are in the | | | | PST | | results section. | + +--------+ + + + | TRANSFUSE PLATELET | Routin | 07/29/2016 | | | | PHERESIS, | e | 11:55 PM | | | | LEUKOREDUCED | | PST | | | + +--------+ + + + | X-RAY PORTABLE CHEST | Urgent | 07/29/2016 | | Results for this | | 1 VIEW | | 9:54 PM | | procedure are in the | | | | PST | | results section. | + +--------+ + + + | RESPIRATORY PATHOGEN | Routin | 07/29/2016 | | Results for this | | PANEL PCR | e | 9:30 PM | | procedure are in the | | | | PST | | results section. | + +--------+ + + + | TRANSFUSE PLATELET | Routin | 07/29/2016 | | | | PHERESIS, | e | 3:57 PM | | | | LEUKOREDUCED | | PST | | | + +--------+ + + + | PRODUCT - PLATELET | Routin | 07/29/2016 | | Results for this | | PHERESIS | e | 3:56 PM | | procedure are in the | | LEUKOREDUCED | | PST | | results section. | + +--------+ + + + | PRODUCT - PLATELET | Routin | 07/29/2016 | | Results for this | | PHERESIS | e | 3:56 PM | | procedure are in the | | LEUKOREDUCED | | PST | | results section. | + +--------+ + + + | CULTURE, BLOOD BACTI | Routin | 07/29/2016 | | Results for this | | & YEAST [facility] | e | 3:42 PM | | procedure are in the | | | | PST | | results section. | + +--------+ + + + | BLOOD CULTURE WORKUP | Routin | 07/29/2016 | | Results for this | | | e | 3:42 PM | | procedure are in the | | | | PST | | results section. | + +--------+ + + + | PLATELET COUNT, | Routin | 07/29/2016 | | Results for this | | WHOLE BLOOD | e | 3:42 PM | | procedure are in the | | | | PST | | results section. | + +--------+ + + + | CULTURE, BLOOD BACTI | Routin | 07/29/2016 | | Results for this | | & YEAST | e | 3:42 PM | | procedure are in the | | | | PST | | results section. | + +--------+ + + + | MCKENZIE THOMAS) BY PCR | Routin | 07/29/2016 | | Results for this | | | e | 3:00 PM | | procedure are in the | | | | PST | | results section. | + +--------+ + + + | CULTURE, BLOOD BACTI | Routin | 07/29/2016 | | Results for this | | & YEAST [facility] | e | 2:45 PM | | procedure are in the | | | | PST | | results section. | + +--------+ + + + | BLOOD CULTURE WORKUP | Routin | 07/29/2016 | | Results for this | | | e | 2:45 PM | | procedure are in the | | | | PST | | results section. | + +--------+ + + + | CULTURE, BLOOD BACTI | Routin | 07/29/2016 | | Results for this | | & YEAST | e | 2:45 PM | | procedure are in the | | | | PST | | results section. | + +--------+ + + + | CULTURE, BLOOD BACTI | Routin | 07/29/2016 | | Results for this | | & YEAST [facility] | e | 1:19 PM | | procedure are in the | | | | PST | | results section. | + +--------+ + + + | BLOOD CULTURE WORKUP | Routin | 07/29/2016 | | Results for this | | | e | 1:19 PM | | procedure are in the | | | | PST | | results section. | + +--------+ + + + | CULTURE, BLOOD BACTI | Routin | 07/29/2016 | | Results for this | | & YEAST | e | 1:19 PM | | procedure are in the | | | | PST | | results section. | + +--------+ + + + | PRODUCT - PLATELET | Routin | 07/29/2016 | | Results for this | | PHERESIS | e | 12:56 PM | | procedure are in the | | LEUKOREDUCED | | PST | | results section. | + +--------+ + + + | TRANSFUSE PLATELET | Routin | 07/29/2016 | | | | PHERESIS, | e | 12:25 PM | | | | LEUKOREDUCED | | PST | | | + +--------+ + + + | TRANSFUSE RED CELLS, | Routin | 07/29/2016 | | | | LEUKOREDUCED | e | 8:16 AM | | | | | | PST | | | + +--------+ + + + | 12 LEAD ECG | Routin | 07/29/2016 | | Results for this | | | e | 4:29 AM | | procedure are in the | | | | PST | | results section. | + +--------+ + + + | LACTATE | Routin | 07/29/2016 | | Results for this | | | e | 3:49 AM | | procedure are in the | | | | PST | | results section. | + +--------+ + + + | PRODUCT - PLATELET | Routin | 07/29/2016 | | Results for this | | PHERESIS | e | 12:46 AM | | procedure are in the | | LEUKOREDUCED | | PST | | results section. | + +--------+ + + + | CBC AND AUTO DIFF | Routin | 07/28/2016 | | Results for this | | | e | 11:27 PM | | procedure are in the | | | | PST | | results section. | + +--------+ + + + | CBC, WITH | Routin | 07/28/2016 | | Results for this | | DIFFERENTIAL | e | 11:27 PM | | procedure are in the | | | | PST | | results section. | + +--------+ + + + | COMPLETE METABOLIC | Routin | 07/28/2016 | | Results for this | | SET | e | 11:27 PM | | procedure are in the | | (NA,K,CL,CO2,BUN,CRE | | PST | | results section. | | AT,GLUC,CA,AST,ALT,B | | | | | | VIVIENNE TOTAL,ALK | | | | | | PHOS,ALB,PROT TOTAL) | | | | | + +--------+ + + + | COMPLEMENT ACTIVITY | Routin | 07/28/2016 | | Results for this | | ENZYME IMMUNOASSAY, | e | 11:27 PM | | procedure are in the | | TOTAL | | PST | | results section. | + +--------+ + + + | PHOSPHORUS, PLASMA | Routin | 07/28/2016 | | Results for this | | | e | 11:27 PM | | procedure are in the | | | | PST | | results section. | + +--------+ + + + | HAPTOGLOBIN | Routin | 07/28/2016 | | Results for this | | | e | 11:27 PM | | procedure are in the | | | | PST | | results section. | + +--------+ + + + | URIC ACID, PLASMA | Routin | 07/28/2016 | | Results for this | | | e | 11:27 PM | | procedure are in the | | | | PST | | results section. | + +--------+ + + + | MAGNESIUM, PLASMA | Routin | 07/28/2016 | | Results for this | | | e | 11:27 PM | | procedure are in the | | | | PST | | results section. | + +--------+ + + + | LDH TOTAL, PLASMA | Routin | 07/28/2016 | | Results for this | | | e | 11:27 PM | | procedure are in the | | | | PST | | results section. | + +--------+ + + + | X-RAY CHEST 2 VIEW | Routin | 07/28/2016 | | Results for this | | | e | 7:09 PM | | procedure are in the | | | | PST | | results section. | + +--------+ + + + | URINE CULTURE WORKUP | Routin | 07/28/2016 | | Results for this | | | e | 5:00 PM | | procedure are in the | | | | PST | | results section. | + +--------+ + + + | CULTURE, URINE [facility] | Routin | 07/28/2016 | | Results for this | | | e | 5:00 PM | | procedure are in the | | | | PST | | results section. | + +--------+ + + + | UA, DIPSTICK ONLY | Routin | 07/28/2016 | | Results for this | | | e | 5:00 PM | | procedure are in the | | | | PST | | results section. | + +--------+ + + + | URINE, MICROSCOPIC | Routin | 07/28/2016 | | Results for this | | EXAM | e | 5:00 PM | | procedure are in the | | | | PST | | results section. | + +--------+ + + + | CULTURE, URINE BACTI | Routin | 07/28/2016 | | Results for this | | | e | 5:00 PM | | procedure are in the | | | | PST | | results section. | + +--------+ + + + | CULTURE, BLOOD BACTI | Routin | 07/28/2016 | | Results for this | | & YEAST [facility] | e | 4:47 PM | | procedure are in the | | | | PST | | results section. | + +--------+ + + + | BLOOD CULTURE WORKUP | Routin | 07/28/2016 | | Results for this | | | e | 4:47 PM | | procedure are in the | | | | PST | | results section. | + +--------+ + + + | CULTURE, BLOOD BACTI | Routin | 07/28/2016 | | Results for this | | & YEAST | e | 4:47 PM | | procedure are in the | | | | PST | | results section. | + +--------+ + + + | CULTURE, BLOOD BACTI | Routin | 07/28/2016 | | Results for this | | & YEAST [facility] | e | 4:20 PM | | procedure are in the | | | | PST | | results section. | + +--------+ + + + | BLOOD CULTURE WORKUP | Routin | 07/28/2016 | | Results for this | | | e | 4:20 PM | | procedure are in the | | | | PST | | results section. | + +--------+ + + + | CULTURE, BLOOD BACTI | Routin | 07/28/2016 | | Results for this | | & YEAST | e | 4:20 PM | | procedure are in the | | | | PST | | results section. | + +--------+ + + + | CULTURE, BLOOD BACTI | Routin | 07/28/2016 | | Results for this | | & YEAST [facility] | e | 4:15 PM | | procedure are in the | | | | PST | | results section. | + +--------+ + + + | BLOOD CULTURE WORKUP | Routin | 07/28/2016 | | Results for this | | | e | 4:15 PM | | procedure are in the | | | | PST | | results section. | + +--------+ + + + | CULTURE, BLOOD BACTI | Routin | 07/28/2016 | | Results for this | | & YEAST | e | 4:15 PM | | procedure are in the | | | | PST | | results section. | + +--------+ + + + | PRODUCT - RED CELLS | Routin | 07/28/2016 | | Results for this | | LEUKOREDUCED | e | 12:10 AM | | procedure are in the | | | | PST | | results section. | + +--------+ + + + | CBC AND AUTO DIFF | Routin | 07/27/2016 | | Results for this | | | e | 11:31 PM | | procedure are in the | | | | PST | | results section. | + +--------+ + + + | CBC, WITH | Routin | 07/27/2016 | | Results for this | | DIFFERENTIAL | e | 11:31 PM | | procedure are in the | | | | PST | | results section. | + +--------+ + + + | COMPLETE METABOLIC | Routin | 07/27/2016 | | Results for this | | SET | e | 11:31 PM | | procedure are in the | | (NA,K,CL,CO2,BUN,CRE | | PST | | results section. | | AT,GLUC,CA,AST,ALT,B | | | | | | VIVIENNE TOTAL,ALK | | | | | | PHOS,ALB,PROT TOTAL) | | | | | + +--------+ + + + | PHOSPHORUS, PLASMA | Routin | 07/27/2016 | | Results for this | | | e | 11:31 PM | | procedure are in the | | | | PST | | results section. | + +--------+ + + + | MAGNESIUM, PLASMA | Routin | 07/27/2016 | | Results for this | | | e | 11:31 PM | | procedure are in the | | | | PST | | results section. | + +--------+ + + + | TRANSFUSE PLATELET | Routin | 07/27/2016 | | | | PHERESIS, | e | 7:58 PM | | | | LEUKOREDUCED | | PST | | | + +--------+ + + + | PRODUCT - PLATELET | Routin | 07/27/2016 | | Results for this | | PHERESIS | e | 3:24 PM | | procedure are in the | | LEUKOREDUCED | | PST | | results section. | + +--------+ + + + | TRANSFUSE PLATELET | Routin | 07/27/2016 | | | | PHERESIS, | e | 7:21 AM | | | | LEUKOREDUCED | | PST | | | + +--------+ + + + | PRODUCT - PLATELET | Routin | 07/27/2016 | | Results for this | | PHERESIS | e | 12:47 AM | | procedure are in the | | LEUKOREDUCED | | PST | | results section. | + +--------+ + + + | CBC AND AUTO DIFF | Routin | 07/26/2016 | | Results for this | | | e | 11:29 PM | | procedure are in the | | | | PST | | results section. | + +--------+ + + + | CBC, WITH | Routin | 07/26/2016 | | Results for this | | DIFFERENTIAL | e | 11:29 PM | | procedure are in the | | | | PST | | results section. | + +--------+ + + + | COMPLETE METABOLIC | Routin | 07/26/2016 | | Results for this | | SET | e | 11:29 PM | | procedure are in the | | (NA,K,CL,CO2,BUN,CRE | | PST | | results section. | | AT,GLUC,CA,AST,ALT,B | | | | | | VIVIENNE TOTAL,ALK | | | | | | PHOS,ALB,PROT TOTAL) | | | | | + +--------+ + + + | PHOSPHORUS, PLASMA | Routin | 07/26/2016 | | Results for this | | | e | 11:29 PM | | procedure are in the | | | | PST | | results section. | + +--------+ + + + | MAGNESIUM, PLASMA | Routin | 07/26/2016 | | Results for this | | | e | 11:29 PM | | procedure are in the | | | | PST | | results section. | + +--------+ + + + | CBC AND AUTO DIFF | Routin | 07/25/2016 | | Results for this | | | e | 11:17 PM | | procedure are in the | | | | PST | | results section. | + +--------+ + + + | INR | Routin | 07/25/2016 | | Results for this | | | e | 11:17 PM | | procedure are in the | | | | PST | | results section. | + +--------+ + + + | CBC, WITH | Routin | 07/25/2016 | | Results for this | | DIFFERENTIAL | e | 11:17 PM | | procedure are in the | | | | PST | | results section. | + +--------+ + + + | COMPLETE METABOLIC | Routin | 07/25/2016 | | Results for this | | SET | e | 11:17 PM | | procedure are in the | | (NA,K,CL,CO2,BUN,CRE | | PST | | results section. | | AT,GLUC,CA,AST,ALT,B | | | | | | VIVIENNE TOTAL,ALK | | | | | | PHOS,ALB,PROT TOTAL) | | | | | + +--------+ + + + | COMPLEMENT ACTIVITY | Routin | 07/25/2016 | | Results for this | | ENZYME IMMUNOASSAY, | e | 11:17 PM | | procedure are in the | | TOTAL | | PST | | results section. | + +--------+ + + + | PHOSPHORUS, PLASMA | Routin | 07/25/2016 | | Results for this | | | e | 11:17 PM | | procedure are in the | | | | PST | | results section. | + +--------+ + + + | HAPTOGLOBIN | Routin | 07/25/2016 | | Results for this | | | e | 11:17 PM | | procedure are in the | | | | PST | | results section. | + +--------+ + + + | URIC ACID, PLASMA | Routin | 07/25/2016 | | Results for this | | | e | 11:17 PM | | procedure are in the | | | | PST | | results section. | + +--------+ + + + | MAGNESIUM, PLASMA | Routin | 07/25/2016 | | Results for this | | | e | 11:17 PM | | procedure are in the | | | | PST | | results section. | + +--------+ + + + | LDH TOTAL, PLASMA | Routin | 07/25/2016 | | Results for this | | | e | 11:17 PM | | procedure are in the | | | | PST | | results section. | + +--------+ + + + | PRODUCT - RED CELLS | Routin | 07/25/2016 | | Results for this | | LEUKOREDUCED | e | 1:15 AM | | procedure are in the | | | | PST | | results section. | + +--------+ + + + | ANTIBODY SCREEN | Routin | 07/25/2016 | | Results for this | | | e | 1:15 AM | | procedure are in the | | | | PST | | results section. | + +--------+ + + + | TYPE AND SCREEN | Routin | 07/25/2016 | | Results for this | | | e | 1:15 AM | | procedure are in the | | | | PST | | results section. | + +--------+ + + + | ABO & RH TYPE | Routin | 07/25/2016 | | Results for this | | | e | 1:15 AM | | procedure are in the | | | | PST | | results section. | + +--------+ + + + | CBC AND AUTO DIFF | Routin | 07/24/2016 | | Results for this | | | e | 11:40 PM | | procedure are in the | | | | PST | | results section. | + +--------+ + + + | CBC, WITH | Routin | 07/24/2016 | | Results for this | | DIFFERENTIAL | e | 11:40 PM | | procedure are in the | | | | PST | | results section. | + +--------+ + + + | COMPLETE METABOLIC | Routin | 07/24/2016 | | Results for this | | SET | e | 11:40 PM | | procedure are in the | | (NA,K,CL,CO2,BUN,CRE | | PST | | results section. | | AT,GLUC,CA,AST,ALT,B | | | | | | VIVIENNE TOTAL,ALK | | | | | | PHOS,ALB,PROT TOTAL) | | | | | + +--------+ + + + | PHOSPHORUS, PLASMA | Routin | 07/24/2016 | | Results for this | | | e | 11:40 PM | | procedure are in the | | | | PST | | results section. | + +--------+ + + + | MAGNESIUM, PLASMA | Routin | 07/24/2016 | | Results for this | | | e | 11:40 PM | | procedure are in the | | | | PST | | results section. | + +--------+ + + + | CBC AND AUTO DIFF | Routin | 07/24/2016 | | Results for this | | | e | 1:45 AM | | procedure are in the | | | | PST | | results section. | + +--------+ + + + | CBC, WITH | Routin | 07/24/2016 | | Results for this | | DIFFERENTIAL | e | 1:45 AM | | procedure are in the | | | | PST | | results section. | + +--------+ + + + | COMPLETE METABOLIC | Routin | 07/24/2016 | | Results for this | | SET | e | 1:45 AM | | procedure are in the | | (NA,K,CL,CO2,BUN,CRE | | PST | | results section. | | AT,GLUC,CA,AST,ALT,B | | | | | | VIVIENNE TOTAL,ALK | | | | | | PHOS,ALB,PROT TOTAL) | | | | | + +--------+ + + + | PHOSPHORUS, PLASMA | Routin | 07/24/2016 | | Results for this | | | e | 1:45 AM | | procedure are in the | | | | PST | | results section. | + +--------+ + + + | MAGNESIUM, PLASMA | Routin | 07/24/2016 | | Results for this | | | e | 1:45 AM | | procedure are in the | | | | PST | | results section. | + +--------+ + + + | C. DIFFICILE TOXIN, | Routin | 07/23/2016 | | Results for this | | W/REFLEX | e | 5:15 PM | | procedure are in the | | CONFIRMATION IF | | PST | | results section. | | INDETERMINATE | | | | | | RESULTS | | | | | + +--------+ + + + | CULTURE, BLOOD BACTI | Routin | 07/23/2016 | | Results for this | | & YEAST [facility] | e | 4:20 PM | | procedure are in the | | | | PST | | results section. | + +--------+ + + + | CULTURE, BLOOD BACTI | Routin | 07/23/2016 | | Results for this | | & YEAST [facility] | e | 4:20 PM | | procedure are in the | | | | PST | | results section. | + +--------+ + + + | CULTURE, BLOOD BACTI | Routin | 07/23/2016 | | Results for this | | & YEAST | e | 4:20 PM | | procedure are in the | | | | PST | | results section. | + +--------+ + + + | CULTURE, BLOOD BACTI | Routin | 07/23/2016 | | Results for this | | & YEAST | e | 4:20 PM | | procedure are in the | | | | PST | | results section. | + +--------+ + + + | CBC AND AUTO DIFF | Routin | 07/22/2016 | | Results for this | | | e | 11:35 PM | | procedure are in the | | | | PST | | results section. | + +--------+ + + + | MANUAL DIFFERENTIAL | Routin | 07/22/2016 | | Results for this | | | e | 11:35 PM | | procedure are in the | | | | PST | | results section. | + +--------+ + + + | CBC, WITH | Routin | 07/22/2016 | | Results for this | | DIFFERENTIAL | e | 11:35 PM | | procedure are in the | | | | PST | | results section. | + +--------+ + + + | COMPLETE METABOLIC | Routin | 07/22/2016 | | Results for this | | SET | e | 11:35 PM | | procedure are in the | | (NA,K,CL,CO2,BUN,CRE | | PST | | results section. | | AT,GLUC,CA,AST,ALT,B | | | | | | VIVIENNE TOTAL,ALK | | | | | | PHOS,ALB,PROT TOTAL) | | | | | + +--------+ + + + | PHOSPHORUS, PLASMA | Routin | 07/22/2016 | | Results for this | | | e | 11:35 PM | | procedure are in the | | | | PST | | results section. | + +--------+ + + + | MAGNESIUM, PLASMA | Routin | 07/22/2016 | | Results for this | | | e | 11:35 PM | | procedure are in the | | | | PST | | results section. | + +--------+ + + + | VRE (XENIA) BY PCR | Routin | 07/22/2016 | | Results for this | | | e | 4:48 PM | | procedure are in the | | | | PST | | results section. | + +--------+ + + + | CBC AND AUTO DIFF | Routin | 07/21/2016 | | Results for this | | | e | 11:14 PM | | procedure are in the | | | | PST | | results section. | + +--------+ + + + | CBC, WITH | Routin | 07/21/2016 | | Results for this | | DIFFERENTIAL | e | 11:14 PM | | procedure are in the | | | | PST | | results section. | + +--------+ + + + | COMPLETE METABOLIC | Routin | 07/21/2016 | | Results for this | | SET | e | 11:14 PM | | procedure are in the | | (NA,K,CL,CO2,BUN,CRE | | PST | | results section. | | AT,GLUC,CA,AST,ALT,B | | | | | | VIVIENNE TOTAL,ALK | | | | | | PHOS,ALB,PROT TOTAL) | | | | | + +--------+ + + + | COMPLEMENT ACTIVITY | Routin | 07/21/2016 | | Results for this | | ENZYME IMMUNOASSAY, | e | 11:14 PM | | procedure are in the | | TOTAL | | PST | | results section. | + +--------+ + + + | PHOSPHORUS, PLASMA | Routin | 07/21/2016 | | Results for this | | | e | 11:14 PM | | procedure are in the | | | | PST | | results section. | + +--------+ + + + | URIC ACID, PLASMA | Routin | 07/21/2016 | | Results for this | | | e | 11:14 PM | | procedure are in the | | | | PST | | results section. | + +--------+ + + + | MAGNESIUM, PLASMA | Routin | 07/21/2016 | | Results for this | | | e | 11:14 PM | | procedure are in the | | | | PST | | results section. | + +--------+ + + + | LDH TOTAL, PLASMA | Routin | 07/21/2016 | | Results for this | | | e | 11:14 PM | | procedure are in the | | | | PST | | results section. | + +--------+ + + + | HAPTOGLOBIN | Routin | 07/21/2016 | | Results for this | | | e | 11:05 PM | | procedure are in the | | | | PST | | results section. | + +--------+ + + + | STEM CELL | Routin | 07/21/2016 | | Results for this | | TRANSPLANT, | e | 5:29 PM | | procedure are in the | | AUTOLOGOUS | | PST | | results section. | + +--------+ + + + | PROCEDURE NOTE | Routin | 07/21/2016 | | Results for this | | | e | 12:51 PM | | procedure are in the | | | | PST | | results section. 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 | | | | | multiple regions | | | | | | (HCC) | | + +--------+ + + + | PRODUCT CELL COUNT | Routin | 07/21/2016 | Nodular sclerosis | Results for this | | | e | 10:05 AM | Hodgkin lymphoma of | procedure are in the | | | | PST | lymph nodes of | results section. | | | | | multiple regions | | | | | | (HCC) | | + +--------+ + + + | CULTURE, BLOOD BACTI | Routin | 07/21/2016 | Nodular sclerosis | Results for this | | & YEAST | e | 10:05 AM | Hodgkin lymphoma of | procedure are in the | | | | PST | lymph nodes of | results section. | | | | | multiple regions | | | | | | (HCC) | | + +--------+ + + + | AUTO HPC APHERESIS | Routin | 07/21/2016 | Nodular sclerosis | Results for this | | THAW PANEL | e | 10:04 AM | Hodgkin lymphoma of | procedure are in the | | | | PST | lymph nodes of | results section. | | | | | multiple regions | | | | | | (HCC) | | + +--------+ + + + | AUTO HPCA THAW | Routin | 07/21/2016 | Nodular sclerosis | Results for this | | | e | 10:04 AM | Hodgkin lymphoma of | procedure are in the | | | | PST | lymph nodes of | results section. | | | | | multiple regions | | | | | | (HCC) | | + +--------+ + + + | HPC WASH | Routin | 07/21/2016 | Nodular sclerosis | | | | e | 10:04 AM | Hodgkin lymphoma of | | | | | PST | lymph nodes of | | | | | | multiple regions | | | | | | (HCC) | | + +--------+ + + + | TRANSFUSE RED CELLS, | Routin | 07/21/2016 | | | | LEUKOREDUCED | e | 9:50 AM | | | | | | PST | | | + +--------+ + + + | 12 LEAD ECG | Routin | 07/21/2016 | | Results for this | | | e | 6:55 AM | | procedure are in the | | | | PST | | results section. | + +--------+ + + + | ANTIBODY SCREEN | Routin | 07/21/2016 | | Results for this | | | e | 1:09 AM | | procedure are in the | | | | PST | | results section. | + +--------+ + + + | TYPE AND SCREEN | Routin | 07/21/2016 | | Results for this | | | e | 1:09 AM | | procedure are in the | | | | PST | | results section. | + +--------+ + + + | ABO & RH TYPE | Routin | 07/21/2016 | | Results for this | | | e | 1:09 AM | | procedure are in the | | | | PST | | results section. | + +--------+ + + + | PRODUCT - RED CELLS | Routin | 07/21/2016 | | Results for this | | LEUKOREDUCED | e | 1:08 AM | | procedure are in the | | | | PST | | results section. | + +--------+ + + + | CBC AND AUTO DIFF | Routin | 07/20/2016 | | Results for this | | | e | 11:09 PM | | procedure are in the | | | | PST | | results section. | + +--------+ + + + | CBC, WITH | Routin | 07/20/2016 | | Results for this | | DIFFERENTIAL | e | 11:09 PM | | procedure are in the | | | | PST | | results section. | + +--------+ + + + | COMPLETE METABOLIC | Routin | 07/20/2016 | | Results for this | | SET | e | 11:09 PM | | procedure are in the | | (NA,K,CL,CO2,BUN,CRE | | PST | | results section. | | AT,GLUC,CA,AST,ALT,B | | | | | | VIVIENNE TOTAL,ALK | | | | | | PHOS,ALB,PROT TOTAL) | | | | | + +--------+ + + + | PHOSPHORUS, PLASMA | Routin | 07/20/2016 | | Results for this | | | e | 11:09 PM | | procedure are in the | | | | PST | | results section. | + +--------+ + + + | MAGNESIUM, PLASMA | Routin | 07/20/2016 | | Results for this | | | e | 11:09 PM | | procedure are in the | | | | PST | | results section. | + +--------+ + + + | CBC AND AUTO DIFF | Routin | 07/19/2016 | | Results for this | | | e | 11:55 PM | | procedure are in the | | | | PST | | results section. | + +--------+ + + + | CBC, WITH | Routin | 07/19/2016 | | Results for this | | DIFFERENTIAL | e | 11:55 PM | | procedure are in the | | | | PST | | results section. | + +--------+ + + + | COMPLETE METABOLIC | Routin | 07/19/2016 | | Results for this | | SET | e | 11:55 PM | | procedure are in the | | (NA,K,CL,CO2,BUN,CRE | | PST | | results section. | | AT,GLUC,CA,AST,ALT,B | | | | | | VIVIENNE TOTAL,ALK | | | | | | PHOS,ALB,PROT TOTAL) | | | | | + +--------+ + + + | PHOSPHORUS, PLASMA | Routin | 07/19/2016 | | Results for this | | | e | 11:55 PM | | procedure are in the | | | | PST | | results section. | + +--------+ + + + | MAGNESIUM, PLASMA | Routin | 07/19/2016 | | Results for this | | | e | 11:55 PM | | procedure are in the | | | | PST | | results section. | + +--------+ + + + | CBC AND AUTO DIFF | Routin | 07/18/2016 | | Results for this | | | e | 11:45 PM | | procedure are in the | | | | PST | | results section. | + +--------+ + + + | INR | Routin | 07/18/2016 | | Results for this | | | e | 11:45 PM | | procedure are in the | | | | PST | | results section. | + +--------+ + + + | CBC, WITH | Routin | 07/18/2016 | | Results for this | | DIFFERENTIAL | e | 11:45 PM | | procedure are in the | | | | PST | | results section. | + +--------+ + + + | COMPLETE METABOLIC | Routin | 07/18/2016 | | Results for this | | SET | e | 11:45 PM | | procedure are in the | | (NA,K,CL,CO2,BUN,CRE | | PST | | results section. | | AT,GLUC,CA,AST,ALT,B | | | | | | VIVIENNE TOTAL,ALK | | | | | | PHOS,ALB,PROT TOTAL) | | | | | + +--------+ + + + | COMPLEMENT ACTIVITY | Routin | 07/18/2016 | | Results for this | | ENZYME IMMUNOASSAY, | e | 11:45 PM | | procedure are in the | | TOTAL | | PST | | results section. | + +--------+ + + + | PHOSPHORUS, PLASMA | Routin | 07/18/2016 | | Results for this | | | e | 11:45 PM | | procedure are in the | | | | PST | | results section. | + +--------+ + + + | HAPTOGLOBIN | Routin | 07/18/2016 | | Results for this | | | e | 11:45 PM | | procedure are in the | | | | PST | | results section. | + +--------+ + + + | URIC ACID, PLASMA | Routin | 07/18/2016 | | Results for this | | | e | 11:45 PM | | procedure are in the | | | | PST | | results section. | + +--------+ + + + | MAGNESIUM, PLASMA | Routin | 07/18/2016 | | Results for this | | | e | 11:45 PM | | procedure are in the | | | | PST | | results section. | + +--------+ + + + | LDH TOTAL, PLASMA | Routin | 07/18/2016 | | Results for this | | | e | 11:45 PM | | procedure are in the | | | | PST | | results section. | + +--------+ + + + | CBC AND AUTO DIFF | Routin | 07/17/2016 | | Results for this | | | e | 11:10 PM | | procedure are in the | | | | PST | | results section. | + +--------+ + + + | CBC, WITH | Routin | 07/17/2016 | | Results for this | | DIFFERENTIAL | e | 11:10 PM | | procedure are in the | | | | PST | | results section. | + +--------+ + + + | COMPLETE METABOLIC | Routin | 07/17/2016 | | Results for this | | SET | e | 11:10 PM | | procedure are in the | | (NA,K,CL,CO2,BUN,CRE | | PST | | results section. | | AT,GLUC,CA,AST,ALT,B | | | | | | VIVIENNE TOTAL,ALK | | | | | | PHOS,ALB,PROT TOTAL) | | | | | + +--------+ + + + | PHOSPHORUS, PLASMA | Routin | 07/17/2016 | | Results for this | | | e | 11:10 PM | | procedure are in the | | | | PST | | results section. | + +--------+ + + + | MAGNESIUM, PLASMA | Routin | 07/17/2016 | | Results for this | | | e | 11:10 PM | | procedure are in the | | | | PST | | results section. | + +--------+ + + + | CBC AND AUTO DIFF | Routin | 07/16/2016 | | Results for this | | | e | 11:59 PM | | procedure are in the | | | | PST | | results section. | + +--------+ + + + | CBC, WITH | Routin | 07/16/2016 | | Results for this | | DIFFERENTIAL | e | 11:59 PM | | procedure are in the | | | | PST | | results section. | + +--------+ + + + | COMPLETE METABOLIC | Routin | 07/16/2016 | | Results for this | | SET | e | 11:59 PM | | procedure are in the | | (NA,K,CL,CO2,BUN,CRE | | PST | | results section. | | AT,GLUC,CA,AST,ALT,B | | | | | | VIVIENNE TOTAL,ALK | | | | | | PHOS,ALB,PROT TOTAL) | | | | | + +--------+ + + + | PHOSPHORUS, PLASMA | Routin | 07/16/2016 | | Results for this | | | e | 11:59 PM | | procedure are in the | | | | PST | | results section. | + +--------+ + + + | MAGNESIUM, PLASMA | Routin | 07/16/2016 | | Results for this | | | e | 11:59 PM | | procedure are in the | | | | PST | | results section. | + +--------+ + + + | VASC LAB VENOUS | Routin | 07/16/2016 | | Results for this | | DUPLEX LOWER | e | 12:04 PM | | procedure are in the | | EXTREMITY BILAT COMP | | PST | | results section. | + +--------+ + + + | ADMINISTER | Routin | 07/16/2016 | | | | CHEMOTHERAPY PER | e | 9:54 AM | | | | TREATMENT PARAMETERS | | PST | | | + +--------+ + + + | CBC AND AUTO DIFF | Routin | 07/16/2016 | | Results for this | | | e | 1:50 AM | | procedure are in the | | | | PST | | results section. | + +--------+ + + + | CBC, WITH | Routin | 07/16/2016 | | Results for this | | DIFFERENTIAL | e | 1:50 AM | | procedure are in the | | | | PST | | results section. | + +--------+ + + + | COMPLETE METABOLIC | Routin | 07/16/2016 | | Results for this | | SET | e | 1:50 AM | | procedure are in the | | (NA,K,CL,CO2,BUN,CRE | | PST | | results section. | | AT,GLUC,CA,AST,ALT,B | | | | | | VIVIENNE TOTAL,ALK | | | | | | PHOS,ALB,PROT TOTAL) | | | | | + +--------+ + + + | PHOSPHORUS, PLASMA | Routin | 07/16/2016 | | Results for this | | | e | 1:50 AM | | procedure are in the | | | | PST | | results section. | + +--------+ + + + | MAGNESIUM, PLASMA | Routin | 07/16/2016 | | Results for this | | | e | 1:50 AM | | procedure are in the | | | | PST | | results section. | + +--------+ + + + | MCKENZIE THOMAS) BY PCR | Routin | 07/15/2016 | | Results for this | | | e | 9:36 PM | | procedure are in the | | | | PST | | results section. | + +--------+ + + + | ADMINISTER | Routin | 07/15/2016 | | | | CHEMOTHERAPY PER | e | 5:00 PM | | | | TREATMENT PARAMETERS | | PST | | | + +--------+ + + + | CBC AND AUTO DIFF | Routin | 07/15/2016 | | Results for this | | | e | 4:11 PM | | procedure are in the | | | | PST | | results section. | + +--------+ + + + | INR | Routin | 07/15/2016 | | Results for this | | | e | 4:11 PM | | procedure are in the | | | | PST | | results section. | + +--------+ + + + | CBC, WITH | Routin | 07/15/2016 | | Results for this | | DIFFERENTIAL | e | 4:11 PM | | procedure are in the | | | | PST | | results section. | + +--------+ + + + | COMPLETE METABOLIC | Routin | 07/15/2016 | | Results for this | | SET | e | 4:11 PM | | procedure are in the | | (NA,K,CL,CO2,BUN,CRE | | PST | | results section. | | AT,GLUC,CA,AST,ALT,B | | | | | | VIVIENNE TOTAL,ALK | | | | | | PHOS,ALB,PROT TOTAL) | | | | | + +--------+ + + + | COMPLEMENT ACTIVITY | Routin | 07/15/2016 | | Results for this | | ENZYME IMMUNOASSAY, | e | 4:11 PM | | procedure are in the | | TOTAL | | PST | | results section. | + +--------+ + + + | ANTIBODY SCREEN | Routin | 07/15/2016 | | Results for this | | | e | 4:11 PM | | procedure are in the | | | | PST | | results section. | + +--------+ + + + | TYPE AND SCREEN | Routin | 07/15/2016 | | Results for this | | | e | 4:11 PM | | procedure are in the | | | | PST | | results section. | + +--------+ + + + | ABO & RH TYPE | Routin | 07/15/2016 | | Results for this | | | e | 4:11 PM | | procedure are in the | | | | PST | | results section. | + +--------+ + + + | PHOSPHORUS, PLASMA | Routin | 07/15/2016 | | Results for this | | | e | 4:11 PM | | procedure are in the | | | | PST | | results section. | + +--------+ + + + | BILIRUBIN DIRECT | Routin | 07/15/2016 | | Results for this | | | e | 4:11 PM | | procedure are in the | | | | PST | | results section. | + +--------+ + + + | HAPTOGLOBIN | Routin | 07/15/2016 | | Results for this | | | e | 4:11 PM | | procedure are in the | | | | PST | | results section. | + +--------+ + + + | URIC ACID, PLASMA | Routin | 07/15/2016 | | Results for this | | | e | 4:11 PM | | procedure are in the | | | | PST | | results section. | + +--------+ + + + | MAGNESIUM, PLASMA | Routin | 07/15/2016 | | Results for this | | | e | 4:11 PM | | procedure are in the | | | | PST | | results section. | + +--------+ + + + | LDH TOTAL, PLASMA | Routin | 07/15/2016 | | Results for this | | | e | 4:11 PM | | procedure are in the | | | | PST | | results section. | + +--------+ + + + documented in this encounter Results VANCOMYCIN, TROUGH (08/07/2016 8:45 AM PST) + + + + + + | Component | Value | Ref Range | Performed | Pathologist | | | | | At | Signature | + + + + + + | VANCOMYCIN, | 19.0 (H) | 5.0 - 15.0 | [facility] | | | TROUGH | | ug/mL | LABORATORY | | | | | | SERVICES, | | | | | | CORE | | + + + + + + + + | Specimen | + + | Blood | + + + + + | Narrative | Performed At | + + + | Draw trough level prior to 0900 dose on 08/07. Thanks! | [facility] | | | LABORATORY | | | [place] | + + + + + + + + | Performing | Address | City/State/Zipcode | Phone Number | | Organization | | | | + + + + + | [facility] | [id number] | [place] [address] | | | [place] | [address] | | | + + + + + PRODUCT - RED CELLS LEUKOREDUCED (08/07/2016 1:52 AM PST) + + + + + + | Component | Value | Ref Range | Performed | Pathologist | | | | | At | Signature | + + + + + + | PRODUCT | -1 RED BLOOD CELLS | | [facility] | | | DESCRIPTION | ADENINE-SALINE ADDED | | LABORATORY | | | | [facility]UK[facility]YT | | SERVICES, | | | | | | TRANSFUSION | | | | | | MEDICINE | | + + + + + + | PRODUCT | [id number] | | [facility] | | | UNIT # | | | LABORATORY | | | | | | SERVICES, | | | | | | TRANSFUSION | | | | | | MEDICINE | | + + + + + + | UNIT ABO | A | | [facility] | | | | | | LABORATORY | | | | | | SERVICES, | | | | | | TRANSFUSION | | | | | | MEDICINE | | + + + + + + | UNIT [facility] | POS | | [facility] | | | | | | LABORATORY | | | | | | SERVICES, | | | | | | TRANSFUSION | | | | | | MEDICINE | | + + + + + + | STATUS OF | Presumed Transfused | | [facility] | | | UNIT | | | LABORATORY | | | | | | SERVICES, | | | | | | TRANSFUSION | | | | | | MEDICINE | | + + + + + + | EXPIRATION | [phone] | | [facility] | | | DATE | | | LABORATORY | | | | | | SERVICES, | | | | | | TRANSFUSION | | | | | | MEDICINE | | + + + + + + | BLOOD TYPE | [id number] | | [facility] | | | BARCODE | | | LABORATORY | | | | | | SERVICES, | | | | | | TRANSFUSION | | | | | | MEDICINE | | + + + + + + | BLOOD | [id number] | | [facility] | | | PRODUCT | | | LABORATORY | | | CODE | | | SERVICES, | | | | | | TRANSFUSION | | | | | | MEDICINE | | + + + + + + + + | Specimen | + + | | + + + + + + + | Performing | Address | City/State/Zipcode | Phone Number | | Organization | | | | + + + + + | [facility] | [address] | [place] [address] | | | SERVICES, | [address] | | | | TRANSFUSION MEDICINE | | | | + + + + + ANTIBODY SCREEN (08/07/2016 1:52 AM PST) + + + + + + | Component | Value | Ref Range | Performed | Pathologist | | | | | At | Signature | + + + + + + | Antibody | Negative | | [facility] | | | Screen | | | LABORATORY | | | | | | SERVICES, | | | | | | TRANSFUSION | | | | | | MEDICINE | | + + + + + + + + | Specimen | + + | Blood | + + + + + + + | Performing | Address | City/State/Zipcode | Phone Number | | Organization | | | | + + + + + | [facility] | [address] | [place] [address] | | | SERVICES, | [address] | | | | TRANSFUSION MEDICINE | | | | + + + + + ABO & RH TYPE (08/07/2016 1:52 AM PST) + + + + + + | Component | Value | Ref Range | Performed | Pathologist | | | | | At | Signature | + + + + + + | ABO Group | A | | [facility] | | | | | | LABORATORY | | | | | | SERVICES, | | | | | | TRANSFUSION | | | | | | MEDICINE | | + + + + + + | Rh Type | Positive | | [facility] | | | | | | LABORATORY | | | | | | SERVICES, | | | | | | TRANSFUSION | | | | | | MEDICINE | | + + + + + + + + | Specimen | + + | Blood | + + + + + + + | Performing | Address | City/State/Zipcode | Phone Number | | Organization | | | | + + + + + | [facility] | [address] | [place] [address] | | | SERVICES, | [address] | | | | TRANSFUSION MEDICINE | | | | + + + + + RBC MORPHOLOGY (08/07/2016 12:03 AM PST) + + + + + + | Component | Value | Ref Range | Performed | Pathologist | | | | | At | Signature | + + + + + + | DOHLE | Present | | [facility] | | | BODIES | | | LABORATORY | | | | | | SERVICES, | | | | | | CORE | | + + + + + + | TEAR DROP | 1+ (<1-2cells/HPF) | | [facility] | | | CELLS | | | LABORATORY | | | [...] [facility] | [address] | [place] [address] | | | SERVICES, CORE | [address] | | | + + + + + CBC AND AUTO DIFF (08/07/2016 12:03 AM PST) + + + + + + | Component | Value | Ref Range | Performed | Pathologist | | | | | At | Signature | + + + + + + | WHITE CELL | 1.39 (L) | 3.50 - 10.80 | [facility] | | | COUNT | | K/cu mm | LABORATORY | | | | | | SERVICES, | | | | | | CORE | | + + + + + + | RED CELL | 2.36 (L) | 4.00 - 5.20 | [facility] | | | COUNT | | M/cu mm | LABORATORY | | | | | | SERVICES, | | | | | | CORE | | + + + + + + | HEMOGLOBIN | 7.1 (L) | 12.0 - 16.0 | [facility] | | | | | g/dL | LABORATORY | | | | | | SERVICES, | | | | | | CORE | | + + + + + + | HEMATOCRIT | 20.9 (L) | 36.0 - 46.0 % | [facility] | | | | | | LABORATORY | | | | | | SERVICES, | | | | | | CORE | | + + + + + + | MCV | 88.6 | 80.0 - 96.0 fL | [facility] | | | | | | LABORATORY | | | | | | SERVICES, | | | | | | CORE | | + + + + + + | MCHC | 34.0 | 33.0 - 35.5 | [facility] | | | | | g/dL | LABORATORY | | | | | | SERVICES, | | | | | | CORE | | + + + + + + | RDW SD | 42.4 | 35.1 - 46.3 fL | [facility] [...] + + + + | MPV | 10.6 | 9.7 - 12.3 fL | [facility] [...] + + + + | NEUTROPHIL | 65.4 | 50.0 - 70.0 % | [facility] | | | % | | | LABORATORY | | | | | | SERVICES, | | | | | | CORE | | + + + + + + | LYMPHOCYTE | 24.5 | 18.0 - 42.0 % | [facility] | | | % | | | LABORATORY | | | | | | SERVICES, | | | | | | CORE | | + + + + + + | MONOCYTE % | 7.2 | 3.5 - 9.0 % | [facility] | | | | | | LABORATORY | | | | | | SERVICES, | | | | | | CORE | | + + + + + + | EOS % | 0.0 (L) | 1.0 - 3.0 % | [facility] | | | | | | LABORATORY | | | | | | SERVICES, | | | | | | CORE | | + + + + + + | BASO % | 0.7 | 0.0 - 2.0 % | [facility] | | | | | | LABORATORY | | | | | | SERVICES, | | | | | | CORE | | + + + + + + | IG% | 2.2 (H)Comment: Immature | 0.0 - 0.6 % [...] + + + + | NEUTROPHIL | 0.91 (L) | 1.80 - 7.70 | [facility] | | | # | | K/cu mm | LABORATORY | | | | | | SERVICES, | | | | | | CORE | | + + + + + + | LYMPHOCYTE | 0.34 (L) | 1.00 - 4.80 | [facility] | | | # | | K/cu mm | LABORATORY | | | | | | SERVICES, | | | | | | CORE | | + + + + + + | MONOCYTE # | 0.10 | 0.10 - 0.90 | [facility] | | | | | K/cu mm | LABORATORY | | | | | | SERVICES, | | | | | | CORE | | + + + + + + | EOS # | 0.00 | 0.00 - 0.50 | [facility] | [...] + + + + | IG# | 0.03 | 0.00 - 0.03 | [facility] | [...] [facility] | [address] | [place] [address] | | | SERVICES, CORE | [address] | | | + + + + + PHOSPHORUS, PLASMA (08/07/2016 12:03 AM PST) + +---------+ + + + | Component | Value | Ref Range | Performed | Pathologist | | | | | At | Signature | + +---------+ + + + | PHOSPHORUS, | 2.3 (L) | 2.4 - 4.7 mg/dL | [facility] [...] | + + + + + | [facility] | [address] | [place] [address] | | | SERVICES, CORE | [address] | | | + + + + + MAGNESIUM, PLASMA (08/07/2016 12:03 AM PST) + +-------+ + + + | Component | Value | Ref Range | Performed | Pathologist | | | | | At | Signature | + +-------+ + + + | MAGNESIUM,P | 2.1 | 1.8 - 2.5 mg/dL | [facility] | | | TORREYMA | | | LABORATORY | | | [...] | + + + + + | [facility] | [address] | [place] [address] | | | SERVICES, CORE | [address] | | | + + + + + COMPLETE METABOLIC SET (NA,K,CL,CO2,BUN,CREAT,GLUC,CA,AST,ALT,BILI TOTAL,ALK PHOS,ALB,PROT TOTAL) (08/07/2016 12:03 AM PST) + +---------+ + + + | Component | Value | Ref Range | Performed | Pathologist | | | | | At | Signature | + +---------+ + + + | GLUCOSE, | 97 | 60 - 99 mg/dL | [facility] | | | PLASMA | | | LABORATORY | | | (LAB) | | | SERVICES, | | | | | | CORE | | + +---------+ + + + | BUN, PLASMA | 8 | 6 - 20 mg/dL | [facility] | | | (LAB) | | | LABORATORY | | | | | | SERVICES, | | | | | | CORE | | + +---------+ + + + | CREATININE | 0.72 | 0.60 - 1.10 | [facility] | | | PLASMA | | mg/dL | LABORATORY | | | (LAB) | | | SERVICES, | | | | | | CORE | | + +---------+ + + + | EGFR | >60 | >60 mL/min | [facility] | | | - | | | LABORATORY | | | SURINAMESE | | | SERVICES, | | | | | | CORE | | + +---------+ + + + | EGFR NON | >60 | >60 mL/min | [facility] | | | -RAOUL | | | LABORATORY | | | RICAN | | | SERVICES, | | | | | | CORE | | + +---------+ + + + | SODIUM, | 143 | 136 - 145 | [facility] | | | PLASMA | | mmol/L | LABORATORY | | | (LAB) | | | SERVICES, | | | | | | CORE | | + +---------+ + + + | POTASSIUM, | 3.3 (L) | 3.4 - 5.0 | [facility] | | | PLASMA | | mmol/L | LABORATORY | | | (LAB) | | | SERVICES, | | | | | | CORE | | + +---------+ + + + | CHLORIDE, | 109 (H) | 97 - 108 mmol/L | [facility] | | | PLASMA | | | LABORATORY | | | (LAB) | | | SERVICES, | | | | | | CORE | | + +---------+ + + + | TOTAL CO2, | 24 | 21 - 32 mmol/L | [facility] | | | PLASMA | | | LABORATORY | | | (LAB) | | | SERVICES, | | | | | | CORE | | + +---------+ + + + | CALCIUM, | 8.4 (L) | 8.6 - 10.2 | [facility] | | | PLASMA | | mg/dL | LABORATORY | | | (LAB) | | | SERVICES, | | | | | | CORE | | + +---------+ + + + | CALCIUM(ALB | 9.2 | 8.6 - 10.2 | [facility] | | | CORRECTED) | | mg/dL | LABORATORY | | | | | | SERVICES, | | | | | | CORE | | + +---------+ + + + | BILIRUBIN | 1.0 | 0.3 - 1.2 mg/dL | [facility] | | | TOTAL | | | LABORATORY | | | | | | SERVICES, | | | | | | CORE | | + +---------+ + + + | TOTAL | 6.2 (L) | 6.4 - 8.2 g/dL | [facility] | | | PROTEIN, | | | LABORATORY | | | PLASMA | | | SERVICES, | | | (LAB) | | | CORE | | + +---------+ + + + | ALBUMIN, | 3.0 (L) | 3.5 - 4.7 g/dL | [facility] | | | PLASMA | | | LABORATORY | | | (LAB) | | | SERVICES, | | | | | | CORE | | + +---------+ + + + | ALK PHOS | 84 | 42 - 98 U/L | [facility] | | | | | | LABORATORY | | | | | | SERVICES, | | | | | | CORE | | + +---------+ + + + | AST(SGOT) | 15 | <=41 U/L | [facility] | | | | | | LABORATORY | | | | | | SERVICES, | | | | | | CORE | | + +---------+ + + + | ALT (SGPT) | 14 | <=60 U/L | [facility] | | | | | | LABORATORY | | | | | | SERVICES, | | | | | | CORE | | + +---------+ + + + | ANION GAP | 10 | mmol/L | [facility] | | | | | | LABORATORY | | | | | | SERVICES, | | | | | | CORE | | + +---------+ + + + | ANION | 12 (H) | 4 - 11 mmol/L | [facility] [...] | + + + + + | [facility] | [address] | [place] [address] | | | [place]REZ | [address] | | | + + + + + AZEEME (XENIA) BY PCR (08/06/2016 4:02 PM PST) + + + + + + | Component | Value | Ref Range | Performed | Pathologist | | | | | At | Signature | + + + + + + | VRE BY PCR | Negative for van A gene | Negative for | [facility] | | | | | van A gene | LABORATORY | | | | | | SERVICES, | | | | | | CORE | | + + + + + + + + | Specimen | + + | Swab | + + + + + + + | Performing | Address | City/State/Zipcode | Phone Number | | Organization | | | | + + + + + | [facility] | [address] | [place] [address] | | | SERVICES, CORE | [address] | | | + + + + + PRODUCT - PLATELET PHERESIS LEUKOREDUCED (08/06/2016 12:10 AM PST) + + + + + + | Component | Value | Ref Range | Performed | Pathologist | | | | | At | Signature | + + + + + + | PRODUCT | PLATELETS PHERESIS, | | [facility] | | | DESCRIPTION | LEUKOCYTE REDUCED, | | LABORATORY | | | | IRRADIATED | | SERVICES, | | | | | | TRANSFUSION | | | | | | MEDICINE | | + + + + + + | PRODUCT | [id number] | | [facility] | | | UNIT # | | | LABORATORY | | | | | | SERVICES, | | | | | | TRANSFUSION | | | | | | MEDICINE | | + + + + + + | UNIT ABO | A | | [facility] | | | | | | LABORATORY | | | | | | SERVICES, | | | | | | TRANSFUSION | | | | | | MEDICINE | | + + + + + + | UNIT RH | POS | | [facility] | | | | | | LABORATORY | | | | | | SERVICES, | | | | | | TRANSFUSION | | | | | | MEDICINE | | + + + + + + | STATUS OF | Presumed Transfused | | [facility] | | | UNIT | | | LABORATORY | | | | | | SERVICES, | | | | | | TRANSFUSION | | | | | | MEDICINE | | + + + + + + | EXPIRATION | [id number] | | [facility] | | | DATE | | | LABORATORY | | | | | | SERVICES, | | | | | | TRANSFUSION | | | | | | MEDICINE | | + + + + + + | BLOOD TYPE | [id number] | | [facility] | | | BARCODE | | | LABORATORY | | | | | | SERVICES, | | | | | | TRANSFUSION | | | | | | MEDICINE | | + + + + + + | BLOOD | [id number] | | [facility] | | | PRODUCT | | | LABORATORY | | | CODE | | | SERVICES, | | | | | | TRANSFUSION | | | | | | MEDICINE | | + + + + + + + + | Specimen | + + | | + + + + + + + | Performing | Address | City/State/Zipcode | Phone Number | | Organization | | | | + + + + + | [facility] | [address] | [place] [address] | | | SERVICES, | [address] | | | | TRANSFUSION MEDICINE | | | | + + + + + RBC MORPHOLOGY (08/05/2016 11:30 PM PST) + +---------+ + + + | Component | Value | Ref Range | Performed | Pathologist | | | | | At | Signature | + +---------+ + + + | TOXIC | Present | | [facility] | | | GRANULATION | | | LABORATORY | | | [...] [facility] | [address] | [place] [address] | | | SERVICES, CORE | [address] | | | + + + + + CBC AND AUTO DIFF (08/05/2016 11:30 PM PST) + + + + + + | Component | Value | Ref Range | Performed | Pathologist | | | | | At | Signature | + + + + + + | WHITE CELL | 1.10 (L) | 3.50 - 10.80 | [facility] | | | COUNT | | K/cu mm | LABORATORY | | | | | | SERVICES, | | | | | | CORE | | + + + + + + | RED CELL | 2.67 (L) | 4.00 - 5.20 | [facility] | | | COUNT | | M/cu mm | LABORATORY | | | | | | SERVICES, | | | | | | CORE | | + + + + + + | HEMOGLOBIN | 7.9 (L) | 12.0 - 16.0 | [facility] | | | | | g/dL | LABORATORY | | | | | | SERVICES, | | | | | | CORE | | + + + + + + | HEMATOCRIT | 23.6 (L) | 36.0 - 46.0 % | [facility] | | | | | | LABORATORY | | | | | | SERVICES, | | | | | | CORE | | + + + + + + | MCV | 88.4 | 80.0 - 96.0 fL | [facility] | | | | | | LABORATORY | | | | | | SERVICES, | | | | | | CORE | | + + + + + + | MCHC | 33.5 | 33.0 - 35.5 | [facility] | | | | | g/dL | LABORATORY | | | | | | SERVICES, | | | | | | CORE | | + + + + + + | RDW SD | 42.0 | 35.1 - 46.3 fL | [facility] | | | | | | LABORATORY | | | | | | SERVICES, | | | | | | CORE | | + + + + + + | PLATELET | 13 (L) | 150 - 400 K/cu | [facility] | | | COUNT | | mm | LABORATORY | | | | | | SERVICES, | | | | | | CORE | | + + + + + + | MPV | Comment: Not Measured | 9.7 - 12.3 fL | [facility] [...] + + + + | NEUTROPHIL | 70.0 | 50.0 - 70.0 % | [facility] | | | % | | | LABORATORY | | | | | | SERVICES, | | | | | | CORE | | + + + + + + | LYMPHOCYTE | 20.9 | 18.0 - 42.0 % | [facility] | | | % | | | LABORATORY | | | | | | SERVICES, | | | | | | CORE | | + + + + + + | MONOCYTE % | 7.3 | 3.5 - 9.0 % | [facility] | | | | | | LABORATORY | | | | | | SERVICES, | | | | | | CORE | | + + + + + + | EOS % | 0.0 (L) | 1.0 - 3.0 % | [facility] | | | | | | LABORATORY | | | | | | SERVICES, | | | | | | CORE | | + + + + + + | BASO % | 0.9 | 0.0 - 2.0 % | [facility] | | | | | | LABORATORY | | | | | | SERVICES, | | | | | | CORE | | + + + + + + | IG% | 0.9 (H)Comment: Immature | 0.0 - 0.6 % [...] + + + + | NEUTROPHIL | 0.77 (L) | 1.80 - 7.70 | [facility] | | | # | | K/cu mm | LABORATORY | | | | | | SERVICES, | | | | | | CORE | | + + + + + + | LYMPHOCYTE | 0.23 (L) | 1.00 - 4.80 | [facility] | | | # | | K/cu mm | LABORATORY | | | | | | SERVICES, | | | | | | CORE | | + + + + + + | MONOCYTE # | 0.08 (L) | 0.10 - 0.90 | [facility] | | | | | K/cu mm | LABORATORY | | | | | | SERVICES, | | | | | | CORE | | + + + + + + | EOS # | 0.00 | 0.00 - 0.50 | [facility] | [...] + + + + | IG# | 0.01 | 0.00 - 0.03 | [facility] | [...] | + + + + + | [facility] | [address] | [place] [address] | | | SERVICES, CORE | [address] | | | + + + + + PHOSPHORUS, PLASMA (08/05/2016 11:30 PM PST) + +---------+ + + + | Component | Value | Ref Range | Performed | Pathologist | | | | | At | Signature | + +---------+ + + + | PHOSPHORUS, | 2.3 (L) | 2.4 - 4.7 mg/dL | [facility] [...] | + + + + + | [facility] | [address] | [place] [address] | | | SERVICES, CORE | [address] | | | + + + + + MAGNESIUM, PLASMA (08/05/2016 11:30 PM PST) + +-------+ + + + [...] [facility] | [address] | [place] [address] | | | SERVICES, CORE | [address] | | | + + + + + COMPLETE METABOLIC SET (NA,K,CL,CO2,BUN,CREAT,GLUC,CA,AST,ALT,BILI TOTAL,ALK PHOS,ALB,PROT TOTAL) (08/05/2016 11:30 PM PST) + +---------+ + + + [...] + + + | BUN, PLASMA | 7 | 6 - 20 mg/dL | [facility] | | | (LAB) | | | LABORATORY | | | | | | SERVICES, | | | | | | CORE | | + +---------+ + + + | CREATININE | 0.64 | 0.60 - 1.10 | [facility] | | | PLASMA | | mg/dL | LABORATORY | | | (LAB) | | | SERVICES, | | | | | | CORE | | + +---------+ + + + | EGFR | >60 | >60 mL/min | [facility] | | | - | | | LABORATORY | | | SURINAMESE | | | SERVICES, | | | | | | CORE | | + +---------+ + + + | EGFR NON | >60 | >60 mL/min | [facility] | | | -RAOUL | | | LABORATORY | | | RICAN | | | SERVICES, | | | | | | CORE | | + +---------+ + + + | SODIUM, | 142 | 136 - 145 | [facility] | | | PLASMA | | mmol/L | LABORATORY | | | (LAB) | | | SERVICES, | | | | | | CORE | | + +---------+ + + + | POTASSIUM, | 3.2 (L) | 3.4 - 5.0 | [facility] | | | PLASMA | | mmol/L | LABORATORY | | | (LAB) | | | SERVICES, | | | | | | CORE | | + +---------+ + + + | CHLORIDE, | 109 (H) | 97 - 108 mmol/L | [facility] | | | PLASMA | | | LABORATORY | | | (LAB) | | | SERVICES, | | | | | | CORE | | + +---------+ + + + | TOTAL CO2, | 24 | 21 - 32 mmol/L | [facility] | | | PLASMA | | | LABORATORY | | | (LAB) | | | SERVICES, | | | | | | CORE | | + +---------+ + + + | CALCIUM, | 8.2 (L) | 8.6 - 10.2 | [facility] | | | PLASMA | | mg/dL | LABORATORY | | | (LAB) | | | SERVICES, | | | | | | CORE | | + +---------+ + + + | CALCIUM(ALB | 9.2 | 8.6 - 10.2 | [facility] | [...] +---------+ + + + | TOTAL | 6.0 (L) | 6.4 - 8.2 g/dL | [facility] | | | PROTEIN, | | | LABORATORY | | | PLASMA | | | SERVICES, | | | (LAB) | | | CORE | | + +---------+ + + + | ALBUMIN, | 2.7 (L) | 3.5 - 4.7 g/dL | [facility] | | | PLASMA | | | LABORATORY | | | (LAB) | | | SERVICES, | | | | | | CORE | | + +---------+ + + + | ALK PHOS | 80 | 42 - 98 U/L | [facility] | | | | | | LABORATORY | | | | | | SERVICES, | | | | | | CORE | | + +---------+ + + + | AST(SGOT) | 11 | <=41 U/L | [facility] | | | | | | LABORATORY | | | | | | SERVICES, | | | | | | CORE | | + +---------+ + + + | ALT (SGPT) | 12 | <=60 U/L | [facility] | | | | | | LABORATORY | | | | | | SERVICES, | | | | | | CORE | | + +---------+ + + + | ANION GAP | 9 | mmol/L | [facility] | | | | | | LABORATORY | | | | | | SERVICES, | | | | | | CORE | | + +---------+ + + + | ANION | 12 (H) | 4 - 11 mmol/L | [facility] [...] the MDRD equation recommended by the | [facility] | | National Kidney Disease Education Program. [...] [facility] | [address] | [place] [address] | | | SERVICES, CORE | [address] | | | + + + + + PRODUCT - PLATELET PHERESIS LEUKOREDUCED (08/05/2016 1:08 AM PST) + + + + + + | Component | Value | Ref Range | Performed | Pathologist | | | | | At | Signature | + + + + + + | PRODUCT | PLATELETS PHERESIS, | | [facility] | | | DESCRIPTION | LEUKOCYTE REDUCED, | | LABORATORY | | | | IRRADIATED | | SERVICES, | | | | | | TRANSFUSION | | | | | | MEDICINE | | + + + + + + | PRODUCT | [id number] | | [facility] | | | UNIT # | | | LABORATORY | | | | | | SERVICES, | | | | | | TRANSFUSION | | | | | | MEDICINE | | + + + + + + | UNIT ABO | A | | [facility] | | | | | | LABORATORY | | | | | | SERVICES, | | | | | | TRANSFUSION | | | | | | MEDICINE | | + + + + + + | UNIT RH | POS | | [facility] | | | | | | LABORATORY | | | | | | SERVICES, | | | | | | TRANSFUSION | | | | | | MEDICINE | | + + + + + + | STATUS OF | Presumed Transfused | | [facility] | | | UNIT | | | LABORATORY | | | | | | SERVICES, | | | | | | TRANSFUSION | | | | | | MEDICINE | | + + + + + + | EXPIRATION | [id number] | | [facility] | | | DATE | | | LABORATORY | | | | | | SERVICES, | | | | | | TRANSFUSION | | | | | | MEDICINE | | + + + + + + | BLOOD TYPE | [phone] | | [facility] | | | BARCODE | | | LABORATORY | | | | | | SERVICES, | | | | | | TRANSFUSION | | | | | | MEDICINE | | + + + + + + | BLOOD | [id number] | | [facility] | | | PRODUCT | | | LABORATORY | | | CODE | | | SERVICES, | | | | | | TRANSFUSION | | | | | | MEDICINE | | + + + + + + + + | Specimen | + + | | + + + + + + + | Performing | Address | City/State/Zipcode | Phone Number | | Organization | | | | + + + + + | [facility] | [address] | [place] [address] | | | SERVICES, | [address] | | | | TRANSFUSION MEDICINE | | | | + + + + + RBC MORPHOLOGY (08/04/2016 11:55 PM PST) + +---------+ + + + | Component | Value | Ref Range | Performed | Pathologist | | | | | At | Signature | + +---------+ + + + | DOHLE | Present | | [facility] | | | BODIES | | | LABORATORY | | | | | | SERVICES, | | | | | | CORE | | + +---------+ + + + | TOXIC | Present | | [facility] | | | GRANULATION | | | LABORATORY | | | [...] | + + + + + | [facility] | [address] | [place] [address] | | | SERVICES, CORE | [address] | | | + + + + + CBC AND AUTO DIFF (08/04/2016 11:55 PM PST) + + + + + + | Component | Value | Ref Range | Performed | Pathologist | | | | | At | Signature | + + + + + + | WHITE CELL | 0.83 (L) | 3.50 - 10.80 | [facility] | | | COUNT | | K/cu mm | LABORATORY | | | | | | SERVICES, | | | | | | CORE | | + + + + + + | RED CELL | 2.72 (L) | 4.00 - 5.20 | [facility] | | | COUNT | | M/cu mm | LABORATORY | | | | | | SERVICES, | | | | | | CORE | | + + + + + + | HEMOGLOBIN | 8.1 (L) | 12.0 - 16.0 | [facility] | | | | | g/dL | LABORATORY | | | | | | SERVICES, | | | | | | CORE | | + + + + + + | HEMATOCRIT | 24.0 (L) | 36.0 - 46.0 % | [facility] | | | | | | LABORATORY | | | | | | SERVICES, | | | | | | CORE | | + + + + + + | MCV | 88.2 | 80.0 - 96.0 fL | [facility] | | | | | | LABORATORY | | | | | | SERVICES, | | | | | | CORE | | + + + + + + | MCHC | 33.8 | 33.0 - 35.5 | [facility] | | | | | g/dL | LABORATORY | | | | | | SERVICES, | | | | | | CORE | | + + + + + + | RDW SD | 42.5 | 35.1 - 46.3 fL | [facility] | | | | | | LABORATORY | | | | | | SERVICES, | | | | | | CORE | | + + + + + + | PLATELET | 20 (L) | 150 - 400 K/cu | [facility] | | | COUNT | | mm | LABORATORY | | | | | | SERVICES, | | | | | | CORE | | + + + + + + | MPV | 11.1 | 9.7 - 12.3 fL | [facility] [...] + + + + | NEUTROPHIL | 68.7 | 50.0 - 70.0 % | [facility] | | | % | | | LABORATORY | | | | | | SERVICES, | | | | | | CORE | | + + + + + + | LYMPHOCYTE | 24.1 | 18.0 - 42.0 % | [facility] | | | % | | | LABORATORY | | | | | | SERVICES, | | | | | | CORE | | + + + + + + | MONOCYTE % | 6.0 | 3.5 - 9.0 % | [facility] | | | | | | LABORATORY | | | | | | SERVICES, | | | | | | CORE | | + + + + + + | EOS % | 0.0 (L) | 1.0 - 3.0 % | [facility] | | | | | | LABORATORY | | | | | | SERVICES, | | | | | | CORE | | + + + + + + | BASO % | 0.0 | 0.0 - 2.0 % [...] + + + + | NEUTROPHIL | 0.57 (L) | 1.80 - 7.70 | [facility] | | | # | | K/cu mm | LABORATORY | | | | | | SERVICES, | | | | | | CORE | | + + + + + + | LYMPHOCYTE | 0.20 (L) | 1.00 - 4.80 | [facility] | | | # | | K/cu mm | LABORATORY | | | | | | SERVICES, | | | | | | CORE | | + + + + + + | MONOCYTE # | 0.05 (L) | 0.10 - 0.90 | [facility] | | | | | K/cu mm | LABORATORY | | | | | | SERVICES, | | | | | | CORE | | + + + + + + | EOS # | 0.00 | 0.00 - 0.50 | [facility] | | | | | K/cu mm | LABORATORY | | | | | | SERVICES, | | | | | | CORE | | + + + + + + | BASO # | 0.00 | 0.00 - 0.10 | [facility] | | | | | K/cu mm | LABORATORY | | | | | | SERVICES, | | | | | | CORE | | + + + + + + | IG# | 0.01 | 0.00 - 0.03 | [facility] | [...] | + + + + + | [facility] | [address] | [place] [address] | | | SERVICES, CORE | [address] | | | + + + + + URIC ACID, PLASMA (08/04/2016 11:55 PM PST) + +---------+ + + + | Component | Value | Ref Range | Performed | Pathologist | | | | | At | Signature | + +---------+ + + + | URIC ACID, | 1.7 (L) | 2.5 - 6.2 mg/dL | [facility] [...] [facility] | [address] | [place] [address] | | | SERVICES, CORE | [address] | | | + + + + + PHOSPHORUS, PLASMA (08/04/2016 11:55 PM PST) + +---------+ + + + | Component | Value | Ref Range | Performed | Pathologist | | | | | At | Signature | + +---------+ + + + | PHOSPHORUS, | 2.0 (L) | 2.4 - 4.7 mg/dL | [facility] [...] | + + + + + | [facility] | [address] | [place] [address] | | | SERVICES, CORE | [address] | | | + + + + + MAGNESIUM, PLASMA (08/04/2016 11:55 PM PST) + +-------+ + + + | Component | Value | Ref Range | Performed | Pathologist | | | | | At | Signature | + +-------+ + + + | MAGNESIUM,P | 2.3 | 1.8 - 2.5 mg/dL | [facility] | | | LASMA | | | LABORATORY | | | | | | ELISA, | | | | | | CORE | | + +-------+ + + + + + | Specimen | + + | Blood | + + + + + + + | Performing | Address | City/State/Zipcode | Phone Number | | Organization | | | | + + + + + | [facility] | [address] | [place] [address] | | | SERVICES, CORE | [address] | | | + + + + + COMPLETE METABOLIC SET (NA,K,CL,CO2,BUN,CREAT,GLUC,CA,AST,ALT,BILI TOTAL,ALK PHOS,ALB,PROT TOTAL) (08/04/2016 11:55 PM PST) + +---------+ + + + | Component | Value | Ref Range | Performed | Pathologist | | | | | At | Signature | + +---------+ + + + | GLUCOSE, | 85 | 60 - 99 mg/dL | [facility] | | | PLASMA | | | LABORATORY | | | (LAB) | | | SERVICES, | | | | | | CORE | | + +---------+ + + + | BUN, PLASMA | 6 | 6 - 20 mg/dL | [facility] | | | (LAB) | | | LABORATORY | | | | | | SERVICES, | | | | | | CORE | | + +---------+ + + + | CREATININE | 0.60 | 0.60 - 1.10 | [facility] | | | PLASMA | | mg/dL | LABORATORY | | | (LAB) | | | SERVICES, | | | | | | CORE | | + +---------+ + + + | EGFR | >60 | >60 mL/min | [facility] | | | - | | | LABORATORY | | | SURINAMESE | | | SERVICES, | | | | | | CORE | | + +---------+ + + + | EGFR NON | >60 | >60 mL/min | [facility] | | | -RAOUL | | | LABORATORY | | | RICAN | | | SERVICES, | | | | | | CORE | | + +---------+ + + + | SODIUM, | 143 | 136 - 145 | [facility] | | | PLASMA | | mmol/L | LABORATORY | | | (LAB) | | | SERVICES, | | | | | | CORE | | + +---------+ + + + | POTASSIUM, | 3.4 | 3.4 - 5.0 | [facility] | | | PLASMA | | mmol/L | LABORATORY | | | (LAB) | | | SERVICES, | | | | | | CORE | | + +---------+ + + + | CHLORIDE, | 111 (H) | 97 - 108 mmol/L | [facility] | | | PLASMA | | | LABORATORY | | | (LAB) | | | SERVICES, | | | | | | CORE | | + +---------+ + + + | TOTAL CO2, | 22 | 21 - 32 mmol/L | [facility] [...] +---------+ + + + | CALCIUM(ALB | 9.1 | 8.6 - 10.2 | [facility] | | | CORRECTED) | | mg/dL | LABORATORY | | | | | | SERVICES, | | | | | | CORE | | + +---------+ + + + | BILIRUBIN | 0.4 | 0.3 - 1.2 mg/dL | [facility] | | | TOTAL | | | LABORATORY | | | | | | SERVICES, | | | | | | CORE | | + +---------+ + + + | TOTAL | 6.0 (L) | 6.4 - 8.2 g/dL | [facility] | | | PROTEIN, | | | LABORATORY | | | PLASMA | | | SERVICES, | | | (LAB) | | | CORE | | + +---------+ + + + | ALBUMIN, | 2.7 (L) | 3.5 - 4.7 g/dL | [facility] | | | [facility] | | | LABORATORY | | | (LAB) | | | SERVICES, | | | | | | CORE | | + +---------+ + + + | ALK PHOS | 77 | 42 - 98 U/L | [facility] | | | | | | LABORATORY | | | | | | SERVICES, | | | | | | CORE | | + +---------+ + + + | AST(SGOT) | 10 | <=41 U/L | [facility] | | | | | | LABORATORY | | | | | | SERVICES, | | | | | | CORE | | + +---------+ + + + | ALT (SGPT) | 13 | <=60 U/L | [facility] | | | | | | LABORATORY | | | | | | SERVICES, | | | | | | CORE | | + +---------+ + + + | ANION GAP | 10 | mmol/L | [facility] | | | | | | LABORATORY | | | | | | SERVICES, | | | | | | CORE | | + +---------+ + + + | ANION | 13 (H) | 4 - 11 mmol/L | [facility] [...] | + + + + + | [facility] | [address] | [place] [address] | | | SERVICES, CORE | [address] | | | + + + + + LDH TOTAL, PLASMA (08/04/2016 11:55 PM PST) + +---------+ + + + | Component | Value | Ref Range | Performed | Pathologist | | | | | At | Signature | + +---------+ + + + | LD TOTAL, | 196 | <=250 U/L | [facility] | | [...] [facility] | [address] | [place] [address] | | | SERVICES, CORE | [address] | | | + + + + + HAPTOGLOBIN, SERUM (08/04/2016 11:55 PM PST) + + + + + [...] + | [facility] - AIRPORT - | [address] | [place] [address] | | | [facility] | | | | + + + + + COMPLEMENT ACTIVITY ENZYME IMMUNOASSAY, TOTAL (08/04/2016 11:55 PM PST) + + + + + + | Component | Value | Ref Range | Performed | Pathologist | | | | | At | Signature | + + + + + + | COMPLEMENT | 4 (L)Comment: If low | 60 - 144 [...] | | | | | | Cory, [facility] [place] [address] | | | | | | [phone] | | | | | jeimy, [place] Ramsay, | | | | | | , [...] [facility] | [address] | [place], [place] | | | [facility] | | [id number] | | + + + + + PICC LINE (08/04/2016 11:50 AM PST) + + + | Narrative | Performed At | + + + | Madison Kelly RN 08/04/2016 11:50 AM PICC LINE Performed | | | by: CLOTILDE PRATT Authorized by: CONSTANTIN LINK I PICC/Carlos Eduarod | | | Insertion Procedure Note Indications:Antibiotics Procedure | | | location: Unit:14K Room: 12 Providers: Attending name: Attending | | | physically present: No PICC Nurse name: Clotilde Pratt RN Assisted by | | | Karie Sierra Rn Pre-Procedure Consent: written consent | | | obtained Consent given by: Patient Patient identity confirmed per | | | protocol: Yes Team Pause: Immediatly prior to the procedure a pause | | | per protocol was called. A pause verifies correct patient, | | | procedure, equipment, web support engineer and site/side marked as | | | required. CLABSI Prevention Bundle: Skin | | | preparation: Chloraprep Protective barrier: Cap, Mask, | | | Hand scrub, Gown, Gloves and Full body drape. Cap and mask worn by | | | assistive personnel.Sterile Ultrasound techniques (sterile gel, and | | | sterile probe cover) used | | | Dressing: Dressing applied prior of | | | removal of full barrier drape and hemostatic agent applied | | | Procedure Details Patient was placed in appropriate position The | | | vascular anatomy was identified by Ultrasound Guidance.wire through | | | the needle, introducer over the wire, then catheter through the | | | introducer Tip was placed using TLS (Tip Locating System) and TPS | | | (Tip Positioning System). . A non-tunneled PICC Double lumen 5 | | | Fr was placed in the Right Arm area Basilic vein. Catheter lot | | | number: [id number] with a length of 55 cm was selected and trimmed | | | 7 to a remaining length of 48 cm All ports aspirated for | | | blood and flushed with saline Power-injectable line: yes | | | Attempts 1 attempt(s) were made Complications None PICC | | | catheter tip location Chest radiograph ordered to verify placement | | | and Line verified by radiograph Adjustments made after chest film | | | obtained: none External measurement of catheter exposed: 4 cm. PICC | | | catheter tip location: Cavo-Atrial Junction Estimated blood loss: | | | <10mL | | + + + PRODUCT - PLATELET PHERESIS LEUKOREDUCED (08/04/2016 12:46 AM [facility]) + + + + + + | Component | Value | Ref Range | Performed | Pathologist | | | | | At | Signature | + + + + + + | PRODUCT | PLATELETS PHERESIS, | | [facility] | | | DESCRIPTION | LEUKOCYTE REDUCED, | | LABORATORY | | | | IRRADIATED | | SERVICES, | | | | | | TRANSFUSION | | | | | | MEDICINE | | + + + + + + | PRODUCT | [id number] | | [facility] | | | UNIT # | | | LABORATORY | | | | | | SERVICES, | | | | | | TRANSFUSION | | | | | | MEDICINE | | + + + + + + | UNIT ABO | A | | [facility] | | | | | | LABORATORY | | | | | | SERVICES, | | | | | | TRANSFUSION | | | | | | MEDICINE | | + + + + + + | UNIT RH | POS | | [facility] | | | | | | LABORATORY | | | | | | SERVICES, | | | | | | TRANSFUSION | | | | | | MEDICINE | | + + + + + + | STATUS OF | Presumed Transfused | | [facility] | | | UNIT | | | LABORATORY | | | | | | SERVICES, | | | | | | TRANSFUSION | | | | | | MEDICINE | | + + + + + + | EXPIRATION | [id number] | | [facility] | | | DATE | | | LABORATORY | | | | | | SERVICES, | | | | | | TRANSFUSION | | | | | | MEDICINE | | + + + + + + | BLOOD TYPE | [id number] | | [facility] | | | BARCODE | | | LABORATORY | | | | | | SERVICES, | | | | | | TRANSFUSION | | | | | | MEDICINE | | + + + + + + | BLOOD | [id number] | | [facility] | | | PRODUCT | | | LABORATORY | | | CODE | | | SERVICES, | | | | | | TRANSFUSION | | | | | | MEDICINE | | + + + + + + + + | Specimen | + + | | + + + + + + + | Performing | Address | City/State/Zipcode | Phone Number | | Organization | | | | + + + + + | [facility] | [address] | [place] [address] | | | SERVICES, | [address] | | | | TRANSFUSION MEDICINE | | | | + + + + + RBC MORPHOLOGY (08/03/2016 11:45 PM PST) + + + + + + | Component | Value | Ref Range | Performed | Pathologist | | | | | At | Signature | + + + + + + | SCHISTOCYTE | 1+ (<1-2cells/HPF) | | [facility] | | | S | | | LABORATORY | | | | | | SERVICES, | | | | | | CORE | | + + + + + + | TEAR DROP | 1+ (<1-2cells/HPF) | | [facility] | | | CELLS | | | LABORATORY | | | [...] | + + + + + | [facility] | [address] | [place] [address] | | | SERVICES, CORE | [address] | | | + + + + + CBC AND AUTO DIFF (08/03/2016 11:45 PM PST) + + + + + + | Component | Value | Ref Range | Performed | Pathologist | | | | | At | Signature | + + + + + + | WHITE CELL | 0.55 (L) | 3.50 - 10.80 | [facility] | | | COUNT | | K/cu mm | LABORATORY | | | | | | SERVICES, | | | | | | CORE | | + + + + + + | RED CELL | 2.57 (L) | 4.00 - 5.20 | [facility] | | | COUNT | | M/cu mm | LABORATORY | | | | | | SERVICES, | | | | | | CORE | | + + + + + + | HEMOGLOBIN | 7.6 (L) | 12.0 - 16.0 | [facility] | | | | | g/dL | LABORATORY | | | | | | SERVICES, | | | | | | CORE | | + + + + + + | HEMATOCRIT | 22.7 (L) | 36.0 - 46.0 % | [facility] | | | | | | LABORATORY | | | | | | SERVICES, | | | | | | CORE | | + + + + + + | MCV | 88.3 | 80.0 - 96.0 fL | [facility] | | | | | | LABORATORY | | | | | | SERVICES, | | | | | | CORE | | + + + + + + | MCHC | 33.5 | 33.0 - 35.5 | [facility] | | | | | g/dL | LABORATORY | | | | | | SERVICES, | | | | | | CORE | | + + + + + + | RDW SD | 43.7 | 35.1 - 46.3 fL | [facility] | | | | | | LABORATORY | | | | | | SERVICES, | | | | | | CORE | | + + + + + + | PLATELET | 16 (L) | 150 - 400 K/cu | [facility] | | | COUNT | | mm | LABORATORY | | | | | | SERVICES, | | | | | | CORE | | + + + + + + | MPV | 9.6 (L) | 9.7 - 12.3 fL | [facility] [...] + + + + | NEUTROPHIL | 69.1 | 50.0 - 70.0 % | [facility] | | | % | | | LABORATORY | | | | | | SERVICES, | | | | | | CORE | | + + + + + + | LYMPHOCYTE | 20.0 | 18.0 - 42.0 % | [facility] | | | % | | | LABORATORY | | | | | | SERVICES, | | | | | | CORE | | + + + + + + | MONOCYTE % | 10.9 (H) | 3.5 - 9.0 % | [facility] | | | | | | LABORATORY | | | | | | SERVICES, | | | | | | CORE | | + + + + + + | EOS % | 0.0 (L) | 1.0 - 3.0 % | [facility] | | | | | | LABORATORY | | | | | | SERVICES, | | | | | | CORE | | + + + + + + | BASO % | 0.0 | 0.0 - 2.0 % | [facility] | | | | | | LABORATORY | | | | | | SERVICES, | | | | | | CORE | | + + + + + + | IG% | 0.0Comment: Immature | 0.0 - 0.6 % | [...] + + + + | NEUTROPHIL | 0.38 (L) | 1.80 - 7.70 | [facility] | | | # | | K/cu mm | LABORATORY | | | | | | SERVICES, | | | | | | CORE | | + + + + + + | LYMPHOCYTE | 0.11 (L) | 1.00 - 4.80 | [facility] | | | # | | K/cu mm | LABORATORY | | | | | | SERVICES, | | | | | | CORE | | + + + + + + | MONOCYTE # | 0.06 (L) | 0.10 - 0.90 | [facility] | | | | | K/cu mm | LABORATORY | | | | | | SERVICES, | | | | | | CORE | | + + + + + + | EOS # | 0.00 | 0.00 - 0.50 | [facility] | | | | | K/cu mm | LABORATORY | | | | | | SERVICES, | | | | | | CORE | | + + + + + + | BASO # | 0.00 | 0.00 - 0.10 | [facility] | | | | | K/cu mm | LABORATORY | | | | | | SERVICES, | | | | | | CORE | | + + + + + + | IG# | 0.00 | 0.00 - 0.03 | [facility] | [...] | + + + + + | [facility] | [address] | [place] [address] | | | SERVICES, CORE | [address] | | | + + + + + PHOSPHORUS, PLASMA (08/03/2016 11:45 PM PST) + +---------+ + + + | Component | Value | Ref Range | Performed | Pathologist | | | | | At | Signature | + +---------+ + + + | PHOSPHORUS, | 2.3 (L) | 2.4 - 4.7 mg/dL | [facility] [...] + | [facility] | [address] | [place] [address] | | | SERVICES, CORE | [address] | | | + + + + + MAGNESIUM, PLASMA (08/03/2016 11:45 PM PST) + +-------+ + + + | Component | Value | Ref Range | Performed | Pathologist | | | | | At | Signature | + +-------+ + + + | MAGNESIUM,P | 2.0 | 1.8 - 2.5 mg/dL | [facility] [...] [facility] | [address] | [place] [address] | | | SERVICES, CORE | [address] | | | + + + + + COMPLETE METABOLIC SET (NA,K,CL,CO2,BUN,CREAT,GLUC,CA,AST,ALT,BILI TOTAL,ALK PHOS,ALB,PROT TOTAL) (08/03/2016 11:45 PM PST) + +---------+ + + + | Component | Value | Ref Range | Performed | Pathologist | | | | | At | Signature | + +---------+ + + + | GLUCOSE, | 85 | 60 - 99 mg/dL | [facility] | | | PLASMA | | | LABORATORY | | | (LAB) | | | SERVICES, | | | | | | CORE | | + +---------+ + + + | BUN, PLASMA | 4 (L) | 6 - 20 mg/dL | [facility] | | | (LAB) | | | LABORATORY | | | | | | SERVICES, | | | | | | CORE | | + +---------+ + + + | CREATININE | 0.65 | 0.60 - 1.10 | [facility] | | | PLASMA | | mg/dL | LABORATORY | | | (LAB) | | | SERVICES, | | | | | | CORE | | + +---------+ + + + | EGFR | >60 | >60 mL/min | [facility] | | | - | | | LABORATORY | | | SURINAMESE | | | SERVICES, | | | | | | CORE | | + +---------+ + + + | EGFR NON | >60 | >60 mL/min | [facility] | | | -ROAUL | | | LABORATORY | | | RICAN | | | SERVICES, | | | | | | CORE | | + +---------+ + + + | SODIUM, | 143 | 136 - 145 | [facility] | | | PLASMA | | mmol/L | LABORATORY | | | (LAB) | | | SERVICES, | | | | | | CORE | | + +---------+ + + + | POTASSIUM, | 3.1 (L) | 3.4 - 5.0 | [facility] | | | PLASMA | | mmol/L | LABORATORY | | | (LAB) | | | SERVICES, | | | | | | CORE | | + +---------+ + + + | CHLORIDE, | 109 (H) | 97 - 108 mmol/L | [facility] | | | PLASMA | | | LABORATORY | | | (LAB) | | | SERVICES, | | | | | | CORE | | + +---------+ + + + | TOTAL CO2, | 24 | 21 - 32 mmol/L | [facility] | | | PLASMA | | | LABORATORY | | | (LAB) | | | SERVICES, | | | | | | CORE | | + +---------+ + + + | CALCIUM, | 7.9 (L) | 8.6 - 10.2 | [facility] | | | PLASMA | | mg/dL | LABORATORY | | | (LAB) | | | SERVICES, | | | | | | CORE | | + +---------+ + + + | CALCIUM(ALB | 9.1 | 8.6 - 10.2 | [facility] | [...] +---------+ + + + | TOTAL | 5.6 (L) | 6.4 - 8.2 g/dL | [facility] | | | PROTEIN, | | | LABORATORY | | | PLASMA | | | SERVICES, | | | (LAB) | | | CORE | | + +---------+ + + + | ALBUMIN, | 2.5 (L) | 3.5 - 4.7 g/dL | [facility] | | | PLASMA | | | LABORATORY | | | (LAB) | | | SERVICES, | | | | | | CORE | | + +---------+ + + + | ALK PHOS | 68 | 42 - 98 U/L | [facility] | | | | | | LABORATORY | | | | | | SERVICES, | | | | | | CORE | | + +---------+ + + + | AST(SGOT) | 10 | <=41 U/L | [facility] | | | | | | LABORATORY | | | | | | SERVICES, | | | | | | CORE | | + +---------+ + + + | ALT (SGPT) | 12 | <=60 U/L | [facility] | | | | | | LABORATORY | | | | | | SERVICES, | | | | | | CORE | | + +---------+ + + + | ANION GAP | 10 | mmol/L | [facility] | | | | | | LABORATORY | | | | | | SERVICES, | | | | | | CORE | | + +---------+ + + + | ANION | 13 (H) | 4 - 11 mmol/L | [facility] [...] the MDRD equation recommended by the | [facility] | | National Kidney Disease Education Program. [...] [facility] | [address] | [place] [address] | | | SERVICES, CORE | [address] | | | + + + + + VANCOMYCIN, TROUGH (08/03/2016 2:46 PM PST) + + + + + + | Component | Value | Ref Range | Performed | Pathologist | | | | | At | Signature | + + + + + + | VANCOMYCIN, | 21.6 (H) | 5.0 - 15.0 | [facility] | | | TROUGH | | ug/mL | LABORATORY | | | | | | SERVICES, | | | | | | CORE | | + + + + + + + + | Specimen | + + | Blood | + + + + + | Narrative | Performed At | + + + | Draw vanco trough level prior to 1445 dose. Thanks! | [facility] | | | LABORAT[facility] | | | [address] | + + + + + + + + | Performing | Address | City/State/Zipcode | Phone Number | | Organization | | | | + + + + + | [facility] | [address] | [place] [address] | | | [address] | [address] | | | + + + + + PRODUCT - PLATELET PHERESIS LEUKOREDUCED (08/03/2016 9:54 AM PST) + + + + + + | Component | Value | Ref Range | Performed | Pathologist | | | | | At | Signature | + + + + + + | PRODUCT | PLATELETS PHERESIS, | | [facility] | | | DESCRIPTION | LEUKOCYTE REDUCED, | | LABORATORY | | | | IRRADIATED | | SERVICES, | | | | | | TRANSFUSION | | | | | | MEDICINE | | + + + + + + | PRODUCT | [id number] | | [facility] | | | UNIT # | | | LABORATORY | | | | | | SERVICES, | | | | | | TRANSFUSION | | | | | | MEDICINE | | + + + + + + | UNIT ABO | A | | [facility] | | | | | | LABORATORY | | | | | | SERVICES, | | | | | | TRANSFUSION | | | | | | MEDICINE | | + + + + + + | UNIT RH | POS | | [facility] | | | | | | LABORATORY | | | | | | SERVICES, | | | | | | TRANSFUSION | | | | | | MEDICINE | | + + + + + + | STATUS OF | Presumed Transfused | | [facility] | | | UNIT | | | LABORATORY | | | | | | SERVICES, | | | | | | TRANSFUSION | | | | | | MEDICINE | | + + + + + + | EXPIRATION | [id number] | | [facility] | | | DATE | | | LABORATORY | | | | | | SERVICES, | | | | | | TRANSFUSION | | | | | | MEDICINE | | + + + + + + | BLOOD TYPE | [id number] | | [facility] | | | BARCODE | | | LABORATORY | | | | | | SERVICES, | | | | | | TRANSFUSION | | | | | | MEDICINE | | + + + + + + | BLOOD | [id number] | | [facility] | | | PRODUCT | | | LABORATORY | | | CODE | | | SERVICES, | | | | | | TRANSFUSION | | | | | | MEDICINE | | + + + + + + + + | Specimen | + + | | + + + + + + + | Performing | Address | City/State/Zipcode | Phone Number | | Organization | | | | + + + + + | [facility] | [address] | [place] [address] | | | SERVICES, | [address] | | | | TRANSFUSION MEDICINE | | | | + + + + + X-RAY CHEST 2 VIEW (08/03/2016 9:54 AM PST) + + + + + + | Component | Value | Ref Range | Performed | Pathologist | | | | | At | Signature | + + + + + + | CHEST, 2 | EXAM: CHEST 2 VIEWS | | | | | VIEWS [place] | 08/03/16 09:54 HISTORY: | | | | | STEREO | PICC placement. | | | | | | COMPARISON: 07/31/16 | | | | | | FINDINGS: Right upper | | | | | | extremity PICC | | | | | | terminates at the | | | | | | cavoatrial junction. | | | | | | Thecardiomediastinal | | | | | | silhouette is normal. | | | | | | The lungs are clear. | | | | | | There is nopleural | | | | | | effusion. There is no | | | | | | pulmonary edema or | | | | | | pneumothorax. The bones | | | | | | areintact. IMPRESSION: | | | | | | PICC at the cavoatrial | | | | | | junction. Clear lungs. | | | | | | Attending Radiologists: | | | | | | ESTEVAN MENDOZA MDAuthor: | | | | | | ALEENA FERGUSON MD I | | | | | | personally reviewed the | | | | | | images and, if | | | | | | necessary, edited the | | | | | | report. I agreewith the | | | | | | report as now presented. | | | | | | | | | | | | Final/Electronically | | | | | | mor / ESTEVAN | | | | | | KELLY 08/03/2016 13:34 | | | | | | PM | | | | + + [...] | | | + +---------+ + + RBC MORPHOLOGY (08/03/2016 6:48 AM PST) + + + + + + | Component | Value | Ref Range | Performed | Pathologist | | | | | At | Signature | + + + + + + | DOHLE | Present | | [facility] | | | BODIES | | | LABORATORY | | | | | | SERVICES, | | | | | | CORE | | + + + + + + | TOXIC | Present | | [facility] | | | GRANULATION | | | LABORATORY | | | | | | SERVICES, | | | | | | CORE | | + + + + + + | ANISOCYTOSI | 1+(10-25cells/HPF) | | [facility] | | | S | | | LABORATORY | | | | | | SERVICES, | | | | | | CORE | | + + + + + + | MACROCYTOSI | 1+(10-25cells/HPF) | | [facility] | | | S | | | LABORATORY | | | [...] + | [facility] | [address] | [place] [address] | | | SERVICES, CORE | [address] | | | + + + + + MANUAL DIFFERENTIAL (08/03/2016 6:48 AM PST) + + + + + + | Component | Value | Ref Range | Performed | Pathologist | | | | | At | Signature | + + + + + + | NEUTROPHIL | 70.5 (H) | 50.0 - 70.0 % | [facility] | | | % | | | LABORATORY | | | | | | SERVICES, | | | | | | CORE | | + + + + + + | LYMPHOCYTE | 22.7 | 18.0 - 42.0 % | [facility] | | | % | | | LABORATORY | | | | | | SERVICES, | | | | | | CORE | | + + + + + + | MONOCYTE % | 4.5 | 3.5 - 9.0 % | [facility] | | | | | | LABORATORY | | | | | | SERVICES, | | | | | | CORE | | + + + + + + | EOSINOPHIL | 0.0 (L) | 1.0 - 3.0 % | [facility] | | | % | | | LABORATORY | | | | | | SERVICES, | | | | | | CORE | | + + + + + + | BASOPHIL % | 0.0 | 0.0 - 2.0 % | [facility] | | | | | | LABORATORY | | | | | | SERVICES, | | | | | | CORE | | + + + + + + | IG% | 2.3 (H)Comment: Immature | 0.0 - 0.6 % | [facility] | | | | Granulocytes (IG) | | LABORATORY | | | | include metamyelocytes, | | SERVICES, | | | | myelocytes and | | CORE | | | | promyelocytes. Bands are | | | | | | not included in the IG | | | | | | count. Bands are | | | | | | included in the | | | | | | neutrophil count. | | | | + + + + + + | NEUTROPHIL | 0.36 (L) | 1.80 - 7.70 | [facility] | | | # | | K/cu mm | LABORATORY | | | | | | SERVICES, | | | | | | CORE | | + + + + + + | LYMPHOCYTE | 0.12 (L) | 1.00 - 4.80 | [facility] | | | # | | K/cu mm | LABORATORY | | | | | | SERVICES, | | | | | | CORE | | + + + + + + | MONOCYTE # | 0.02 (L) | 0.10 - 0.90 | [facility] | | | | | K/cu mm | LABORATORY | | | | | | SERVICES, | | | | | | CORE | | + + + + + + | EOSINOPHIL | 0.00 | 0.00 - 0.50 | [facility] | | | # | | K/cu mm | LABORATORY | | | | | | SERVICES, | | | | | | CORE | | + + + + + + | BASOPHIL # | 0.00 | 0.00 - 0.10 | [facility] | | | | | K/cu mm | LABORATORY | | | | | | SERVICES, | | | | | | CORE | | + + + + + + | IG# | 0.01 | 0.00 - 0.03 | [facility] | | | | | K/cu mm | LABORATORY | | | | | | SERVICES, | | | | | | CORE | | + + + + + + + + | Specimen | + + | Blood | + + + + + | Narrative | Performed At | + + + | Immature Granulocytes (IG) include metamyelocytes, myelocytes | [facility] | | and promyelocytes. Bands are not included in the IG count. Bands | LABORATORY | | are included in the neutrophil count. | [address] | + + + + + + + + | Performing | Address | City/State/Zipcode | Phone Number | | Organization | | | | + + + + + | [facility] | [address] | [place] [address] | | | [address] | [address] | | | + + + + + CBC AND AUTO DIFF (08/03/2016 6:48 AM PST) + + + + + + | Component | Value | Ref Range | Performed | Pathologist | | | | | At | Signature | + + + + + + | WHITE CELL | 0.51 (L) | 3.50 - 10.80 | [facility] | | | COUNT | | K/cu mm | LABORATORY | | | | | | SERVICES, | | | | | | CORE | | + + + + + + | RED CELL | 2.63 (L) | 4.00 - 5.20 | [facility] | | | COUNT | | M/cu mm | LABORATORY | | | | | | SERVICES, | | | | | | CORE | | + + + + + + | HEMOGLOBIN | 7.9 (L) | 12.0 - 16.0 | [facility] | | | | | g/dL | LABORATORY | | | | | | SERVICES, | | | | | | CORE | | + + + + + + | HEMATOCRIT | 23.2 (L) | 36.0 - 46.0 % | [facility] | | | | | | LABORATORY | | | | | | SERVICES, | | | | | | CORE | | + + + + + + | MCV | 88.2 | 80.0 - 96.0 fL | [facility] | | | | | | LABORATORY | | | | | | SERVICES, | | | | | | CORE | | + + + + + + | MCHC | 34.1 | 33.0 - 35.5 | [facility] | | | | | g/dL | LABORATORY | | | | | | SERVICES, | | | | | | CORE | | + + + + + + | RDW SD | 44.5 | 35.1 - 46.3 fL | [facility] | | | | | | LABORATORY | | | | | | SERVICES, | | | | | | CORE | | + + + + + + | PLATELET | 10 (LL) | 150 - 400 K/cu | [facility] | | | COUNT | | mm | LABORATORY | | | | | | SERVICES, | | | | | | CORE | | + + + + + + | MPV | Comment: Not Measured | 9.7 - 12.3 fL | [facility] [...] June 30, 2016. | [facility] | | | LABORATORY | | | SERVICES, CORE | + + + + + + + + | Performing | Address | City/State/Zipcode | Phone Number | | Organization | | | | + + + + + | [facility] | [address] | [place] [address] | | | SERVICES, CORE | [address] | | | + + + + + PHOSPHORUS, PLASMA (08/03/2016 6:48 AM PST) + +---------+ + + + | Component | Value | Ref Range | Performed | Pathologist | | | | | At | Signature | + +---------+ + + + | PHOSPHORUS, | 2.0 (L) | 2.4 - 4.7 mg/dL | [facility] [...] | + + + + + | [facility] | [address] | [place] [address] | | | SERVICES, [place] | [address] | | | + + + + + MAGNESIUM, PLASMA (08/03/2016 6:48 AM PST) + +-------+ + + + | Component | Value | Ref Range | Performed | Pathologist | | | | | At | Signature | + +-------+ + + + | MAGNESIUM,P | 2.0 | 1.8 - 2.5 mg/dL | [facility] | | | LASMA | | | LABORATORY | | | | | | ELISA, | | | | | | [place] | | + +-------+ + + + + + | Specimen | + + | Blood | + + + + + + + | Performing | Address | City/State/Zipcode | Phone Number | | Organization | | | | + + + + + | [facility] | [address] | [place] [address] | | | SERVICES, [place] | [address] | | | + + + + + COMPLETE METABOLIC SET (NA,K,CL,CO2,BUN,CREAT,GLUC,CA,AST,ALT,BILI TOTAL,ALK PHOS,ALB,PROT TOTAL) (08/03/2016 6:48 AM PST) + +---------+ + + + | Component | Value | Ref Range | Performed | Pathologist | | | | | At | Signature | + +---------+ + + + | GLUCOSE, | 91 | 60 - 99 mg/dL | [facility] | | | PLASMA | | | LABORATORY | | | (LAB) | | | SERVICES, | | | | | | CORE | | + +---------+ + + + | BUN, PLASMA | 6 | 6 - 20 mg/dL | [facility] | | | (LAB) | | | LABORATORY | | | | | | SERVICES, | | | | | | CORE | | + +---------+ + + + | CREATININE | 0.60 | 0.60 - 1.10 | [facility] | | | PLASMA | | mg/dL | LABORATORY | | | (LAB) | | | SERVICES, | | | | | | CORE | | + +---------+ + + + | EGFR | >60 | >60 mL/min | [facility] | | | - | | | LABORATORY | | | SURINAMESE | | | SERVICES, | | | | | | CORE | | + +---------+ + + + | EGFR NON | >60 | >60 mL/min | [facility] | | | -RAOUL | | | LABORATORY | | | RICAN | | | SERVICES, | | | | | | CORE | | + +---------+ + + + | SODIUM, | 142 | 136 - 145 | [facility] | | | PLASMA | | mmol/L | LABORATORY | | | (LAB) | | | SERVICES, | | | | | | CORE | | + +---------+ + + + | POTASSIUM, | 3.2 (L) | 3.4 - 5.0 | [facility] | | | PLASMA | | mmol/L | LABORATORY | | | (LAB) | | | SERVICES, | | | | | | CORE | | + +---------+ + + + | CHLORIDE, | 109 (H) | 97 - 108 mmol/L | [facility] [...] +---------+ + + + | CALCIUM(ALB | 9.5 | 8.6 - 10.2 | [facility] | | | CORRECTED) | | mg/dL | LABORATORY | | | | | | SERVICES, | | | | | | CORE | | + +---------+ + + + | BILIRUBIN | 0.4 | 0.3 - 1.2 mg/dL | [facility] | | | TOTAL | | | LABORATORY | | | | | | SERVICES, | | | | | | CORE | | + +---------+ + + + | TOTAL | 5.8 (L) | 6.4 - 8.2 g/dL | [facility] | | | PROTEIN, | | | LABORATORY | | | PLASMA | | | SERVICES, | | | (LAB) | | | CORE | | + +---------+ + + + | ALBUMIN, | 2.3 (L) | 3.5 - 4.7 g/dL | [facility] | | | PLASMA | | | LABORATORY | | | (LAB) | | | SERVICES, | | | | | | CORE | | + +---------+ + + + | ALK PHOS | 72 | 42 - 98 U/L | [facility] | | | | | | LABORATORY | | | | | | SERVICES, | | | | | | CORE | | + +---------+ + + + | AST(SGOT) | 7 | <=41 U/L | [facility] | | | | | | LABORATORY | | | | | | SERVICES, | | | | | | CORE | | + +---------+ + + + | ALT (SGPT) | 11 | <=60 U/L | [facility] | | | | | | LABORATORY | | | | | | SERVICES, | | | | | | CORE | | + +---------+ + + + | ANION GAP | 10 | mmol/L | [facility] | | | | | | LABORATORY | | | | | | SERVICES, | | | | | | CORE | | + +---------+ + + + | ANION | 14 (H) | 4 - 11 mmol/L | [facility] [...] | Interpretive Information: <60 mL/min/1.73 sq | [facility] | | m Chronic Kidney Disease <15 [...] | + + + + + | [facility] | [address] | [place] [address] | | | SERVICES, CORE | [address] | | | + + + + + MANUAL DIFFERENTIAL (08/02/2016 4:10 AM PST) + + + + + + | Component | Value | Ref Range | Performed | Pathologist | | | | | At | Signature | + + + + + + | NEUTROPHIL | 50.0 | 50.0 - 70.0 % | [facility] | | | % | | | LABORATORY | | | | | | SERVICES, | | | | | | CORE | | + + + + + + | LYMPHOCYTE | 42.3 (H) | 18.0 - 42.0 % | [facility] | | | % | | | LABORATORY | | | | | | SERVICES, | | | | | | CORE | | + + + + + + | MONOCYTE % | 7.7 | 3.5 - 9.0 % | [facility] | | | | | | LABORATORY | | | | | | SERVICES, | | | | | | CORE | | + + + + + + | EOSINOPHIL | 0.0 (L) | 1.0 - 3.0 % | [facility] | | | % | | | LABORATORY | | | | | | SERVICES, | | | | | | CORE | | + + + + + + | BASOPHIL % | 0.0 | 0.0 - 2.0 % | [facility] | | | | | | LABORATORY | | | | | | SERVICES, | | | | | | CORE | | + + + + + + | IG% | 0.0Comment: Immature | 0.0 - 0.6 % | [facility] | | | | Granulocytes (IG) | | LABORATORY | | | | include metamyelocytes, | | SERVICES, | | | | myelocytes and | | CORE | | | | promyelocytes. Bands are | | | | | | not included in the IG | | | | | | count. Bands are | | | | | | included in the | | | | | | neutrophil count. | | | | + + + + + + | NEUTROPHIL | 0.16 (L) | 1.80 - 7.70 | [facility] | | | # | | K/cu mm | LABORATORY | | | | | | SERVICES, | | | | | | CORE | | + + + + + + | LYMPHOCYTE | 0.13 (L) | 1.00 - 4.80 | [facility] | | | # | | K/cu mm | LABORATORY | | | | | | SERVICES, | | | | | | CORE | | + + + + + + | MONOCYTE # | 0.02 (L) | 0.10 - 0.90 | [facility] | | | | | K/cu mm | LABORATORY | | | | | | SERVICES, | | | | | | CORE | | + + + + + + | EOSINOPHIL | 0.00 | 0.00 - 0.50 | [facility] | | | # | | K/cu mm | LABORATORY | | | | | | SERVICES, | | | | | | CORE | | + + + + + + | BASOPHIL # | 0.00 | 0.00 - 0.10 | [facility] | | | | | K/cu mm | LABORATORY | | | | | | SERVICES, | | | | | | CORE | | + + + + + + | IG# | 0.00 | 0.00 - 0.03 | [facility] | | | | | K/cu mm | LABORATORY | | | | | | SERVICES, | | | | | | CORE | | + + + + + + + + | Specimen | + + | Blood | + + + + + | Narrative | Performed At | + + + | Immature Granulocytes (IG) include metamyelocytes, myelocytes | [facility] | | and promyelocytes. Bands are not included in the IG count. Bands | LABORATORY | | are included in the neutrophil count. | SERVICES, CORE | + + + + + + + + | Performing | Address | City/State/Zipcode | Phone Number | | Organization | | | | + + + + + | [facility] | [address] | [place] [address] | | | SERVICES, CORE | [address] | | | + + + + + CULTURE, BLOOD BACTI & YEAST [facility] (08/02/2016 4:10 AM PST) + + + + + [...] | + + + + + | [facility] | [address] | [place] [address] | | | SERVICES, CORE | [address] | | | + + + + + CBC AND AUTO DIFF (08/02/2016 4:10 AM PST) + + + + + + | Component | Value | Ref Range | Performed | Pathologist | | | | | At | Signature | + + + + + + | WHITE CELL | 0.31 (L) | 3.50 - 10.80 | [facility] | | | COUNT | | K/cu mm | LABORATORY | | | | | | SERVICES, | | | | | | CORE | | + + + + + + | RED CELL | 2.72 (L) | 4.00 - 5.20 | [facility] | | | COUNT | | M/cu mm | LABORATORY | | | | | | SERVICES, | | | | | | CORE | | + + + + + + | HEMOGLOBIN | 8.1 (L) | 12.0 - 16.0 | [facility] | | | | | g/dL | LABORATORY | | | | | | SERVICES, | | | | | | CORE | | + + + + + + | HEMATOCRIT | 23.7 (L) | 36.0 - 46.0 % | [facility] | | | | | | LABORATORY | | | | | | SERVICES, | | | | | | CORE | | + + + + + + | MCV | 87.1 | 80.0 - 96.0 fL | [facility] | | | | | | LABORATORY | | | | | | SERVICES, | | | | | | CORE | | + + + + + + | MCHC | 34.2 | 33.0 - 35.5 | [facility] | | | | | g/dL | LABORATORY | | | | | | SERVICES, | | | | | | CORE | | + + + + + + | RDW SD | 44.1 | 35.1 - 46.3 fL | [facility] | | | | | | LABORATORY | | | | | | SERVICES, | | | | | | CORE | | + + + + + + | PLATELET | 22 (L) | 150 - 400 K/cu | [facility] | | | COUNT | | mm | LABORATORY | | | | | | SERVICES, | | | | | | CORE | | + + + + + + | MPV | 12.3 | 9.7 - 12.3 fL | [facility] [...] June 30, 2016. | [facility] | | | LABORATORY | | | SERVICES, CORE | + + + + + + + + | Performing | Address | City/State/Zipcode | Phone Number | | Organization | | | | + + + + + | [facility] | [address] | [place] [address] | | | SERVICES, CORE | [address] | | | + + + + + URIC ACID, PLASMA (08/02/2016 4:10 AM PST) + +---------+ + + + | Component | Value | Ref Range | Performed | Pathologist | | | | | At | Signature | + +---------+ + + + | URIC ACID, | 2.0 (L) | 2.5 - 6.2 mg/dL | [facility] [...] [facility] | [address] | [place] [address] | | | SERVICES, CORE | [address] | | | + + + + + PHOSPHORUS, PLASMA (08/02/2016 4:10 AM PST) + +---------+ + + + | Component | Value | Ref Range | Performed | Pathologist | | | | | At | Signature | + +---------+ + + + | PHOSPHORUS, | 1.5 (L) | 2.4 - 4.7 mg/dL | [facility] [...] | + + + + + | [facility] | [address] | [place] [address] | | | SERVICES, CORE | [address] | | | + + + + + MAGNESIUM, PLASMA (08/02/2016 4:10 AM PST) + +-------+ + + + | Component | Value | Ref Range | Performed | Pathologist | | | | | At | Signature | + +-------+ + + + | MAGNESIUM,P | 1.9 | 1.8 - 2.5 mg/dL | [facility] | | | LASMA | | | LABORATORY | | | | | | ELISA, | | | | | | CORE | | + +-------+ + + + + + | Specimen | + + | Blood | + + + + + + + | Performing | Address | City/State/Zipcode | Phone Number | | Organization | | | | + + + + + | [facility] | [address] | [place] [address] | | | SERVICES, CORE | [address] | | | + + + + + COMPLETE METABOLIC SET (NA,K,CL,CO2,BUN,CREAT,GLUC,CA,AST,ALT,BILI TOTAL,ALK PHOS,ALB,PROT TOTAL) (08/02/2016 4:10 AM PST) + +---------+ + + + | Component | Value | Ref Range | Performed | Pathologist | | | | | At | Signature | + +---------+ + + + | GLUCOSE, | 88 | 60 - 99 mg/dL | [facility] | | | PLASMA | | | LABORATORY | | | (LAB) | | | SERVICES, | | | | | | CORE | | + +---------+ + + + | BUN, PLASMA | 4 (L) | 6 - 20 mg/dL | [facility] | | | (LAB) | | | LABORATORY | | | | | | SERVICES, | | | | | | CORE | | + +---------+ + + + | CREATININE | 0.66 | 0.60 - 1.10 | [facility] | | | PLASMA | | mg/dL | LABORATORY | | | (LAB) | | | SERVICES, | | | | | | CORE | | + +---------+ + + + | EGFR | >60 | >60 mL/min | [facility] | | | - | | | LABORATORY | | | SURINAMESE | | | SERVICES, | | | | | | CORE | | + +---------+ + + + | EGFR NON | >60 | >60 mL/min | [facility] | | | -RAOUL | | | LABORATORY | | | RICAN | | | SERVICES, | | | | | | CORE | | + +---------+ + + + | SODIUM, | 145 | 136 - 145 | [facility] | | | PLASMA | | mmol/L | LABORATORY | | | (LAB) | | | SERVICES, | | | | | | CORE | | + +---------+ + + + | POTASSIUM, | 3.0 (L) | 3.4 - 5.0 | [facility] | | | PLASMA | | mmol/L | LABORATORY | | | (LAB) | | | SERVICES, | | | | | | CORE | | + +---------+ + + + | CHLORIDE, | 110 (H) | 97 - 108 mmol/L | [facility] | | | PLASMA | | | LABORATORY | | | (LAB) | | | SERVICES, | | | | | | CORE | | + +---------+ + + + | TOTAL CO2, | 22 | 21 - 32 mmol/L | [facility] | | | PLASMA | | | LABORATORY | | | (LAB) | | | SERVICES, | | | | | | CORE | | + +---------+ + + + | CALCIUM, | 8.0 (L) | 8.6 - 10.2 | [facility] | | | PLASMA | | mg/dL | LABORATORY | | | (LAB) | | | SERVICES, | | | | | | CORE | | + +---------+ + + + | CALCIUM(ALB | 9.2 | 8.6 - 10.2 | [facility] | | | CORRECTED) | | mg/dL | LABORATORY | | | | | | SERVICES, | | | | | | CORE | | + +---------+ + + + | BILIRUBIN | 0.4 | 0.3 - 1.2 mg/dL | [facility] | | | TOTAL | | | LABORATORY | | | | | | SERVICES, | | | | | | CORE | | + +---------+ + + + | TOTAL | 5.5 (L) | 6.4 - 8.2 g/dL | [facility] | | | PROTEIN, | | | LABORATORY | | | PLASMA | | | SERVICES, | | | (LAB) | | | CORE | | + +---------+ + + + | ALBUMIN, | 2.5 (L) | 3.5 - 4.7 g/dL | [facility] | | | PLASMA | | | LABORATORY | | | (LAB) | | | SERVICES, | | | | | | CORE | | + +---------+ + + + | ALK PHOS | 68 | 42 - 98 U/L | [facility] | | | | | | LABORATORY | | | | | | SERVICES, | | | | | | CORE | | + +---------+ + + + | AST(SGOT) | 6 | <=41 U/L | [facility] | | | | | | LABORATORY | | | | | | SERVICES, | | | | | | CORE | | + +---------+ + + + | ALT (SGPT) | 13 | <=60 U/L | [facility] | | | | | | LABORATORY | | | | | | SERVICES, | | | | | | CORE | | + +---------+ + + + | ANION GAP | 13 | mmol/L | [facility] | | | | | | LABORATORY | | | | | | SERVICES, | | | | | | CORE | | + +---------+ + + + | ANION | 16 (H) | 4 - 11 mmol/L | [facility] [...] | + + + + + | [facility] | [address] | [place] [address] | | | SERVICES, CORE | [address] | | | + + + + + LDH TOTAL, PLASMA (08/02/2016 4:10 AM PST) + +---------+ + + + | Component | Value | Ref Range | Performed | Pathologist | | | | | At | Signature | + +---------+ + + + | LD TOTAL, | 197 | <=250 U/L | [facility] | | [...] [facility] | [address] | [place] [address] | | | SERVICES, CORE | [address] | | | + + + + + HAPTOGLOBIN, SERUM (08/02/2016 4:10 AM PST) + +---------+ + + + | Component | Value | Ref Range | Performed | Pathologist | | | | | At | Signature | + +---------+ + + + | HAPTOGLOBIN | 350 (H) | 30 - 200 mg/dL | [facility] | | | | | | [facility] | | | | | | [place] | | + +---------+ + + + + + | Specimen | + + | Blood | + + + + + + + | Performing | Address | City/State/Zipcode | Phone Number | | Organization | | | | + + + + + | [facility] | [address] | [place] [address] | | | [place] | | | | + + + + + COMPLEMENT ACTIVITY ENZYME IMMUNOASSAY, TOTAL (08/02/2016 4:10 AM PST) + + + + + + | Component | Value | Ref Range | Performed | Pathologist | | | | | At | Signature | + + + + + + | COMPLEMENT | 3 (L)Comment: If low | 60 - 144 [...] | | | | | | Laboratories,[address] | | | | | | [place], [facility] [place] [address] | | | | | | [phone] | | | | | jeimy, [place] Ramsay, | | | | | | , [...] [facility] | [address] | [place], [place] | | | [facility] | | [id number] | | + + + + + INR (08/02/2016 4:10 AM PST) + + + + + + | Component | Value | Ref Range | Performed | Pathologist | | | | | At | Signature | + + + + + + | INR | 1.21 (H) | 0.90 - 1.20 INR | [facility] [...] mech. valves (2.5 - 3.5) INR | SERVICES, CORE | + + + + + + + + | Performing | Address | City/State/Zipcode | Phone Number | | Organization | | | | + + + + + | [facility] | [address] | [place] [address] | | | SERVICES, CORE | [address] | | | + + + + + PRODUCT - PLATELET PHERESIS LEUKOREDUCED (08/01/2016 1:12 AM PST) + + + + + + | Component | Value | Ref Range | Performed | Pathologist | | | | | At | Signature | + + + + + + | PRODUCT | PLATELETS PHERESIS, | | [facility] | | | DESCRIPTION | LEUKOCYTE REDUCED, | | LABORATORY | | | | IRRADIATED | | SERVICES, | | | | | | TRANSFUSION | | | | | | MEDICINE | | + + + + + + | PRODUCT | [id number] | | [facility] | | | UNIT # | | | LABORATORY | | | | | | SERVICES, | | | | | | TRANSFUSION | | | | | | MEDICINE | | + + + + + + | UNIT ABO | A | | [facility] | | | | | | LABORATORY | | | | | | SERVICES, | | | | | | TRANSFUSION | | | | | | MEDICINE | | + + + + + + | UNIT RH | POS | | [facility] | | | | | | LABORATORY | | | | | | SERVICES, | | | | | | TRANSFUSION | | | | | | MEDICINE | | + + + + + + | STATUS OF | Presumed Transfused | | [facility] | | | UNIT | | | LABORATORY | | | | | | SERVICES, | | | | | | TRANSFUSION | | | | | | MEDICINE | | + + + + + + | EXPIRATION | [id number] | | [facility] | | | DATE | | | LABORATORY | | | | | | SERVICES, | | | | | | TRANSFUSION | | | | | | MEDICINE | | + + + + + + | BLOOD TYPE | [phone] | | [facility] | | | BARCODE | | | LABORATORY | | | | | | SERVICES, | | | | | | TRANSFUSION | | | | | | MEDICINE | | + + + + + + | BLOOD | [id number] | | [facility] | | | PRODUCT | | | LABORATORY | | | CODE | | | SERVICES, | | | | | | TRANSFUSION | | | | | | MEDICINE | | + + + + + + + + | Specimen | + + | | + + + + + + + | Performing | Address | City/State/Zipcode | Phone Number | | Organization | | | | + + + + + | [facility] | [address] | [place] [address] | | | SERVICES, | [address] | | | | TRANSFUSION MEDICINE | | | | + + + + + CULTURE, BLOOD BACTI & YEAST [facility] (07/31/2016 11:49 PM PST) + + + + + [...] | + + + + + | [facility] | [address] | [place] [address] | | | SERVICES, CORE | [address] | | | + + + + + CBC AND AUTO DIFF (07/31/2016 11:49 PM PST) + + + + + + | Component | Value | Ref Range | Performed | Pathologist | | | | | At | Signature | + + + + + + | WHITE CELL | 0.15 (L) | 3.50 - 10.80 | [facility] | | | COUNT | | K/cu mm | LABORATORY | | | | | | SERVICES, | | | | | | CORE | | + + + + + + | RED CELL | 2.78 (L) | 4.00 - 5.20 | [facility] | | | COUNT | | M/cu mm | LABORATORY | | | | | | SERVICES, | | | | | | CORE | | + + + + + + | HEMOGLOBIN | 8.3 (L) | 12.0 - 16.0 | [facility] | | | | | g/dL | LABORATORY | | | | | | SERVICES, | | | | | | CORE | | + + + + + + | HEMATOCRIT | 24.1 (L) | 36.0 - 46.0 % | [facility] | | | | | | LABORATORY | | | | | | SERVICES, | | | | | | CORE | | + + + + + + | MCV | 86.7 | 80.0 - 96.0 fL | [facility] | | | | | | LABORATORY | | | | | | SERVICES, | | | | | | CORE | | + + + + + + | MCHC | 34.4 | 33.0 - 35.5 | [facility] | | | | | g/dL | LABORATORY | | | | | | SERVICES, | | | | | | CORE | | + + + + + + | RDW SD | 44.0 | 35.1 - 46.3 fL | [facility] | | | | | | LABORATORY | | | | | | SERVICES, | | | | | | CORE | | + + + + + + | PLATELET | 19 (L) | 150 - 400 K/cu | [facility] | | | COUNT | | mm | LABORATORY | | | | | | SERVICES, | | | | | | CORE | | + + + + + + | MPV | 9.8 | 9.7 - 12.3 fL | [facility] [...] + + + + | NEUTROPHIL | Comment: WBC <300; | 50.0 - 70.0 % | [facility] | | | % | differential not | | LABORATORY | | | | performed. | | SERVICES, | | | | | | CORE | | + + + + + + | LYMPHOCYTE | Comment: WBC <300; | 18.0 - 42.0 % | [facility] | | | % | differential not | | LABORATORY | | | | performed. | | SERVICES, | | | | | | CORE | | + + + + + + | MONOCYTE % | Comment: WBC <300; | 3.5 - 9.0 % | [facility] | | | | differential not | | LABORATORY | | | | performed. | | SERVICES, | | | | | | CORE | | + + + + + + | EOS % | Comment: WBC <300; | 1.0 - 3.0 % | [facility] | | | | differential not | | LABORATORY | | | | performed. | | SERVICES, | | | | | | CORE | | + + + + + + | BASO % | Comment: WBC <300; | 0.0 - 2.0 % | [facility] | | | | differential not | | LABORATORY | | | | performed. | | SERVICES, | | | | | | CORE | | + + + + + + | IG% | Comment: WBC <300; | 0.0 - 0.6 % | [facility] | | | | differential not | | LABORATORY | | | | performed. | | SERVICES, | | | | | | CORE | | + + + + + + | NEUTROPHIL | Comment: WBC <300; | 1.80 - 7.70 | [facility] | | | # | differential not | K/cu mm | LABORATORY | | | | performed. | | SERVICES, | | | | | | CORE | | + + + + + + | LYMPHOCYTE | Comment: WBC <300; | 1.00 - 4.80 | [facility] | | | # | differential not | K/cu mm | LABORATORY | | | | performed. | | SERVICES, | | | | | | CORE | | + + + + + + | MONOCYTE # | Comment: WBC <300; | 0.10 - 0.90 | [facility] | | | | differential not | K/cu mm | LABORATORY | | | | performed. | | SERVICES, | | | | | | CORE | | + + + + + + | EOS # | Comment: WBC <300; | 0.00 - 0.50 | [facility] | | | | differential not | K/cu mm | LABORATORY | | | | performed. | | SERVICES, | | | | | | CORE | | + + + + + + | BASO # | Comment: WBC <300; | 0.00 - 0.10 | [facility] | | | | differential not | K/cu mm | LABORATORY | | | | performed. | | SERVICES, | | | | | | CORE | | + + + + + + | IG# | Comment: WBC <300; | 0.00 - 0.03 | [facility] | | | | differential not | K/cu mm | LABORATORY | | | | performed. | | SERVICES, | | | | [...] [facility] | [address] | [place] [address] | | | SERVICES, CORE | [address] | | | + + + + + PHOSPHORUS, PLASMA (07/31/2016 11:49 PM PST) + +---------+ + + + | Component | Value | Ref Range | Performed | Pathologist | | | | | At | Signature | + +---------+ + + + | PHOSPHORUS, | 1.7 (L) | 2.4 - 4.7 mg/dL | [facility] | | | PLASMA | | | LABORATORY | | | (LAB) | | | SERVICES, | | | | | | CORE | | + +---------+ + + + + + | Specimen | + + | Blood | + + + + + | Narrative | Performed At | + + + | Please draw vancomycin trough prior to 2245 dose on Tuesday | [facility] | | 07/31/16. Thanks! Pharmacy | LABORATORY | | | SERVICES, CORE | + + + + + + + + | Performing | Address | City/State/Zipcode | Phone Number | | Organization | | | | + + + + + | [facility] | [address] | [place] [address] | | | SERVICES, CORE | [address] | | | + + + + + MAGNESIUM, PLASMA (07/31/2016 11:49 PM PST) + +-------+ + + + | Component | Value | Ref Range | Performed | Pathologist | | | | | At | Signature | + +-------+ + + + | MAGNESIUM,P | 1.9 | 1.8 - 2.5 mg/dL | [facility] | | | LASMA | | | LABORATORY | | | | | | ELISA, | | | | | | CORE | | + +-------+ + + + + + | Specimen | + + | Blood | + + + + + | Narrative | Performed At | + + + | Please draw vancomycin trough prior to 2245 dose on Tuesday | [facility] | | 07/31/16. Thanks! Pharmacy | LABORATORY | | | SERVICES, CORE | + + + + + + + + | Performing | Address | City/State/Zipcode | Phone Number | | Organization | | | | + + + + + | [facility] | [address] | [place] [address] | | | SERVICES, CORE | [address] | | | + + + + + COMPLETE METABOLIC SET (NA,K,CL,CO2,BUN,CREAT,GLUC,CA,AST,ALT,BILI TOTAL,ALK PHOS,ALB,PROT TOTAL) (07/31/2016 11:49 PM PST) + +---------+ + + + | Component | Value | Ref Range | Performed | Pathologist | | | | | At | Signature | + +---------+ + + + | GLUCOSE, | 81 | 60 - 99 mg/dL | [facility] | | | PLASMA | | | LABORATORY | | | (LAB) | | | SERVICES, | | | | | | CORE | | + +---------+ + + + | BUN, PLASMA | 5 (L) | 6 - 20 mg/dL | [facility] | | | (LAB) | | | LABORATORY | | | | | | SERVICES, | | | | | | CORE | | + +---------+ + + + | CREATININE | 0.63 | 0.60 - 1.10 | [facility] | | | PLASMA | | mg/dL | LABORATORY | | | (LAB) | | | SERVICES, | | | | | | CORE | | + +---------+ + + + | EGFR | >60 | >60 mL/min | [facility] | | | - | | | LABORATORY | | | SURINAMESE | | | SERVICES, | | | | | | CORE | | + +---------+ + + + | EGFR NON | >60 | >60 mL/min | [facility] | | | -[facility]OU[facility] | | | LABORATORY | | | RICAN | | | SERVICES, | | | | | | CORE | | + +---------+ + + + | SODIUM, | 141 | 136 - 145 | [facility] | | | PLASMA | | mmol/L | LABORATORY | | | (LAB) | | | SERVICES, | | | | | | CORE | | + +---------+ + + + | POTASSIUM, | 3.4 | 3.4 - 5.0 | [facility] | | | PLASMA | | mmol/L | LABORATORY | | | (LAB) | | | SERVICES, | | | | | | CORE | | + +---------+ + + + | CHLORIDE, | 109 (H) | 97 - 108 mmol/L | [facility] [...] +---------+ + + + | CALCIUM, | 7.6 (L) | 8.6 - 10.2 | [facility] | | | PLASMA | | mg/dL | LABORATORY | | | (LAB) | | | SERVICES, | | | | | | CORE | | + +---------+ + + + | CALCIUM(ALB | 8.9 | 8.6 - 10.2 | [facility] | | | CORRECTED) | | mg/dL | LABORATORY | | | | | | SERVICES, | | | | | | CORE | | + +---------+ + + + | BILIRUBIN | 0.4 | 0.3 - 1.2 mg/dL | [facility] | | | TOTAL | | | LABORATORY | | | | | | SERVICES, | | | | | | CORE | | + +---------+ + + + | TOTAL | 5.4 (L) | 6.4 - 8.2 g/dL | [facility] | | | PROTEIN, | | | LABORATORY | | | PLASMA | | | SERVICES, | | | (LAB) | | | CORE | | + +---------+ + + + | ALBUMIN, | 2.4 (L) | 3.5 - 4.7 g/dL | [facility] | | | PLASMA | | | LABORATORY | | | (LAB) | | | SERVICES, | | | | | | CORE | | + +---------+ + + + | ALK PHOS | 67 | 42 - 98 U/L | [facility] | | | | | | LABORATORY | | | | | | SERVICES, | | | | | | CORE | | + +---------+ + + + | AST(SGOT) | 9 | <=41 U/L | [facility] | | | | | | LABORATORY | | | | | | SERVICES, | | | | | | CORE | | + +---------+ + + + | ALT (SGPT) | 15 | <=60 U/L | [facility] | | | | | | LABORATORY | | | | | | SERVICES, | | | | | | CORE | | + +---------+ + + + | ANION GAP | 9 | mmol/L | [facility] | | | | | | LABORATORY | | | | | | SERVICES, | | | | | | CORE | | + +---------+ + + + | ANION | 13 (H) | 4 - 11 mmol/L | [facility] [...] Performed At | + + + | Please draw vancomycin trough prior to 2244 dose on Tuesday | [facility] | | 07/31/16. Thanks! Pharmacy GFR is estimated using the MDRD equation | LABORATORY | | recommended by the National Kidney Disease Education Program. | SERVICES, CORE | | Estimated GFR Interpretive Information: <60 mL/min/1.73 sq | | | m Chronic Kidney Disease <15 [...] [facility] | [address] | [place] [address] | | | SERVICES, CORE | [address] | | | + + + + + VANCOMYCIN, TROUGH (07/31/2016 11:49 PM PST) + + + + + + | Component | Value | Ref Range | Performed | Pathologist | | | | | At | Signature | + + + + + + | VANCOMYCIN, | 15.9 (H) | 5.0 - 15.0 | [facility] | | | TROUGH | | ug/mL | LABORATORY | | | | | | SERVICES, | | | | | | CORE | | + + + + + + + + | Specimen | + + | Blood | + + + + + | Narrative | Performed At | + + + | Please draw vancomycin trough prior to 5 dose on Tuesday | [facility] | | 07/31/16. Thanks! Pharmacy | LABORATORY | | | SERVICES, CORE | + + + + + + + + | Performing | Address | City/State/Zipcode | Phone Number | | Organization | | | | + + + + + | [facility] | [address] | [place] [address] | | | SERVICES, CORE | [address] | | | + + + + + X-RAY CHEST 2 VIEW (07/31/2016 12:14 PM PST) + + + + + + | Component | Value | Ref Range | Performed | Pathologist | | | | | At | Signature | + + + + + + | CHEST, 2 | EXAM: CHEST 2 VIEWS | | | | | VIEWS [place] | 07/31/16 12:14:00 | | | | | STEREO | HISTORY: Hodgkin's | | | | | | disease, history of bone | | | | | | marrow transplant | | | | | | COMPARISON: 03/02/16 | | | | | | CT, 07/30/16 radiograph | | | | | | FINDINGS: Cardiac | | | | | | silhouette is normal in | | | | | | size. Mediastinal | | | | | | density remainsmildly | | | | | | increased, especially | | | | | | superiorly. This is more | | | | | | consistent with | | | | | | anunderlying lymph node. | | | | | | There is no mass effect | | | | | | in the trachea nor | | | | | | change incontour to | | | | | | suggest an enlarging | | | | | | hematoma. The lungs are | | | | | | clear. There is no | | | | | | pleural effusion or | | | | | | pneumothorax. | | | | | | Osseousstructures are | | | | | | unremarkable. Small | | | | | | amount of gas is seen | | | | | | along the leftanterior | | | | | | chest wall, likely | | | | | | related to the recently | | | | | | removed Port-A-Cath. | | | | | | IMPRESSION: Clear lungs. | | | | | | Stable mediastinum, | | | | | | likely reflecting | | | | | | underlying lymph nodes | | | | | | from the patient'sknown | | | | | | Hodgkin's lymphoma. | | | | | | Attending Radiologists: | | | | | | ANASTASIA REECE, | | | | | | MDAuthor: ANASTASIA Gibbons | | | | | | MD CHEVY I | | | | | | personally reviewed the | | | | | | images and, if | | | | | | necessary, edited the | | | | | | report. I agreewith the | | | | | | report as now presented. | | | | | | | | | | | | Final/Electronically | | | | | | signed / ANASTASIA Gibbons | | | | | | CHEVY 07/31/2016 | | | | | | 13:08 PM | | | | + + [...] | | | + +---------+ + + C. DIFFICILE TOXIN (07/31/2016 8:21 AM PST) + + + + + + | Component | Value | Ref Range | Performed | Pathologist | | | | | At | Signature | + + + + + + | C.DIFFICILE | Negative | Negative | [facility] | | | TOXIN | | | LABORATORY | | | | | | SERVICES, | | | | | | CORE | | + + + + + + + + | Specimen | + + | Stool | + + + + + + + | Performing | Address | City/State/Zipcode | Phone Number | | Organization | | | | + + + + + | [facility] | [address] | [place] [address] | | | SERVICES, CORE | [address] | | | + + + + + PRODUCT - PLATELET PHERESIS LEUKOREDUCED (07/31/2016 2:14 AM PST) + + + + + + | Component | Value | Ref Range | Performed | Pathologist | | | | | At | Signature | + + + + + + | PRODUCT | PLATELETS PHERESIS, | | [facility] | | | DESCRIPTION | LEUKOCYTE REDUCED, | | LABORATORY | | | | IRRADIATED | | SERVICES, | | | | | | TRANSFUSION | | | | | | MEDICINE | | + + + + + + | PRODUCT | [id number] | | [facility] | | | UNIT # | | | LABORATORY | | | | | | SERVICES, | | | | | | TRANSFUSION | | | | | | MEDICINE | | + + + + + + | UNIT ABO | A | | [facility] | | | | | | LABORATORY | | | | | | SERVICES, | | | | | | TRANSFUSION | | | | | | MEDICINE | | + + + + + + | UNIT RH | POS | | [facility] | | | | | | LABORATORY | | | | | | SERVICES, | | | | | | TRANSFUSION | | | | | | MEDICINE | | + + + + + + | STATUS OF | Returned to Blood Bank | | [facility] | | | UNIT | | | LABORATORY | | | | | | SERVICES, | | | | | | TRANSFUSION | | | | | | MEDICINE | | + + + + + + | EXPIRATION | [id number] | | [facility] | | | DATE | | | LABORATORY | | | | | | SERVICES, | | | | | | TRANSFUSION | | | | | | MEDICINE | | + + + + + + | BLOOD TYPE | [phone] | | [facility] | | | BARCODE | | | LABORATORY | | | | | | SERVICES, | | | | | | TRANSFUSION | | | | | | MEDICINE | | + + + + + + | BLOOD | [id number] | | [facility] | | | PRODUCT | | | LABORATORY | | | CODE | | | SERVICES, | | | | | | TRANSFUSION | | | | | | MEDICINE | | + + + + + + + + | Specimen | + + | | + + + + + + + | Performing | Address | City/State/Zipcode | Phone Number | | Organization | | | | + + + + + | [facility] | [address] | [place] [address] | | | SERVICES, | [address] | | | | TRANSFUSION MEDICINE | | | | + + + + + PRODUCT - RED CELLS LEUKOREDUCED (07/31/2016 2:14 AM PST) + + + + + + | Component | Value | Ref Range | Performed | Pathologist | | | | | At | Signature | + + + + + + | PRODUCT | -1 RED BLOOD CELLS | | [facility] | | | DESCRIPTION | ADENINE-SALINE ADDED | | LABORATORY | | | | LEUKOCYT | | SERVICES, | | | | | | TRANSFUSION | | | | | | MEDICINE | | + + + + + + | PRODUCT | [id number] | | [facility] | | | UNIT # | | | LABORATORY | | | | | | SERVICES, | | | | | | TRANSFUSION | | | | | | MEDICINE | | + + + + + + | UNIT ABO | A | | [facility] | | | | | | LABORATORY | | | | | | SERVICES, | | | | | | TRANSFUSION | | | | | | MEDICINE | | + + + + + + | UNIT RH | POS | | [facility] | | | | | | LABORATORY | | | | | | SERVICES, | | | | | | TRANSFUSION | | | | | | MEDICINE | | + + + + + + | STATUS OF | Presumed Transfused | | [facility] | | | UNIT | | | LABORATORY | | | | | | SERVICES, | | | | | | TRANSFUSION | | | | | | MEDICINE | | + + + + + + | EXPIRATION | [id number] | | [facility] | | | DATE | | | LABORATORY | | | | | | SERVICES, | | | | | | TRANSFUSION | | | | | | MEDICINE | | + + + + + + | BLOOD TYPE | [phone] | | [facility] | | | BARCODE | | | LABORATORY | | | | | | SERVICES, | | | | | | TRANSFUSION | | | | | | MEDICINE | | + + + + + + | BLOOD | [id number] | | [facility] | | | PRODUCT | | | LABORATORY | | | CODE | | | SERVICES, | | | | | | TRANSFUSION | | | | | | MEDICINE | | + + + + + + + + | Specimen | + + | | + + + + + + + | Performing | Address | City/State/Zipcode | Phone Number | | Organization | | | | + + + + + | [facility] | [address] | [place] [address] | | | SERVICES, | [address] | | | | TRANSFUSION MEDICINE | | | | + + + + + CBC AND AUTO DIFF (07/30/2016 11:48 PM PST) + + + + + + | Component | Value | Ref Range | Performed | Pathologist | | | | | At | Signature | + + + + + + | WHITE CELL | <0.10 (L) | 3.50 - 10.80 | [facility] | | | COUNT | | K/cu mm | LABORATORY | | | | | | SERVICES, | | | | | | CORE | | + + + + + + | RED CELL | 2.27 (L) | 4.00 - 5.20 | [facility] | | | COUNT | | M/cu mm | LABORATORY | | | | | | SERVICES, | | | | | | CORE | | + + + + + + | HEMOGLOBIN | 6.6 (L) | 12.0 - 16.0 | [facility] | | | | | g/dL | LABORATORY | | | | | | SERVICES, | | | | | | CORE | | + + + + + + | HEMATOCRIT | 20.1 (L) | 36.0 - 46.0 % | [facility] | | | | | | LABORATORY | | | | | | SERVICES, | | | | | | CORE | | + + + + + + | MCV | 88.5 | 80.0 - 96.0 fL | [facility] | | | | | | LABORATORY | | | | | | SERVICES, | | | | | | CORE | | + + + + + + | MCHC | 32.8 | 33.0 - 35.5 | [facility] | | | | | g/dL | LABORATORY | | | | | | SERVICES, | | | | | | CORE | | + + + + + + | RDW SD | 45.6 | 35.1 - 46.3 fL | [facility] | | | | | | LABORATORY | | | | | | SERVICES, | | | | | | CORE | | + + + + + + | PLATELET | 31 (L) | 150 - 400 K/cu | [facility] | | | COUNT | | mm | LABORATORY | | | | | | SERVICES, | | | | | | CORE | | + + + + + + | MPV | 9.6 (L) | 9.7 - 12.3 fL | [facility] [...] + + + + | NEUTROPHIL | Comment: WBC <300; | 50.0 - 70.0 % | [facility] | | | % | differential not | | LABORATORY | | | | performed. | | SERVICES, | | | | | | CORE | | + + + + + + | LYMPHOCYTE | Comment: WBC <300; | 18.0 - 42.0 % | [facility] | | | % | differential not | | LABORATORY | | | | performed. | | SERVICES, | | | | | | CORE | | + + + + + + | MONOCYTE % | Comment: WBC <300; | 3.5 - 9.0 % | [facility] | | | | differential not | | LABORATORY | | | | performed. | | SERVICES, | | | | | | CORE | | + + + + + + | EOS % | Comment: WBC <300; | 1.0 - 3.0 % | [facility] | | | | differential not | | LABORATORY | | | | performed. | | SERVICES, | | | | | | CORE | | + + + + + + | BASO % | Comment: WBC <300; | 0.0 - 2.0 % | [facility] | | | | differential not | | LABORATORY | | | | performed. | | SERVICES, | | | | | | CORE | | + + + + + + | IG% | Comment: WBC <300; | 0.0 - 0.6 % | [facility] | | | | differential not | | LABORATORY | | | | performed. | | SERVICES, | | | | | | CORE | | + + + + + + | NEUTROPHIL | Comment: WBC <300; | 1.80 - 7.70 | [facility] | | | # | differential not | K/cu mm | LABORATORY | | | | performed. | | SERVICES, | | | | | | CORE | | + + + + + + | LYMPHOCYTE | Comment: WBC <300; | 1.00 - 4.80 | [facility] | | | # | differential not | K/cu mm | LABORATORY | | | | performed. | | SERVICES, | | | | | | CORE | | + + + + + + | MONOCYTE # | Comment: WBC <300; | 0.10 - 0.90 | [facility] | | | | differential not | K/cu mm | LABORATORY | | | | performed. | | SERVICES, | | | | | | CORE | | + + + + + + | EOS # | Comment: WBC <300; | 0.00 - 0.50 | [facility] | | | | differential not | K/cu mm | LABORATORY | | | | performed. | | SERVICES, | | | | | | CORE | | + + + + + + | BASO # | Comment: WBC <300; | 0.00 - 0.10 | [facility] | | | | differential not | K/cu mm | LABORATORY | | | | performed. | | SERVICES, | | | | | | CORE | | + + + + + + | IG# | Comment: WBC <300; | 0.00 - 0.03 | [facility] | | | | differential not | K/cu mm | LABORATORY | | | | performed. | | SERVICES, | | | | | | CORE | | + + + + + + + + | Specimen | + + | Blood | + + + + + | Narrative | Performed At | + + + | New adult WBC reference ranges effective June 30, 2016. | [facility] | | | LABORATORY | | | SERVICES, CORE | + + + + + + + + | Performing | Address | City/State/Zipcode | Phone Number | | Organization | | | | + + + + + | [facility] | [address] | [place] [address] | | | SERVICES, CORE | [address] | | | + + + + + PHOSPHORUS, PLASMA (07/30/2016 11:48 PM PST) + +---------+ + + + | Component | Value | Ref Range | Performed | Pathologist | | | | | At | Signature | + +---------+ + + + | PHOSPHORUS, | 1.6 (L) | 2.4 - 4.7 mg/dL | [facility] | | | PLASMA | | | [...] | + + + + + | [facility] | [address] | [place] [address] | | | [address] | [address] | | | + + + + + MAGNESIUM, PLASMA (07/30/2016 11:48 PM PST) + +-------+ + + + | Component | Value | Ref Range | Performed | Pathologist | | | | | At | Signature | + +-------+ + + + | MAGNESIUM,P | 2.0 | 1.8 - 2.5 mg/dL | [facility] [...] | + + + + + | [facility] | [address] | [place] [address] | | | SERVICES, CORE | [address] | | | + + + + + COMPLETE METABOLIC SET (NA,K,CL,CO2,BUN,CREAT,GLUC,CA,AST,ALT,BILI TOTAL,ALK PHOS,ALB,PROT TOTAL) (07/30/2016 11:48 PM PST) + +---------+ + + + | Component | Value | Ref Range | Performed | Pathologist | | | | | At | Signature | + +---------+ + + + | GLUCOSE, | 99 | 60 - 99 mg/dL | [facility] | | | PLASMA | | | LABORATORY | | | (LAB) | | | SERVICES, | | | | | | CORE | | + +---------+ + + + | BUN, PLASMA | 6 | 6 - 20 mg/dL | [facility] | | | (LAB) | | | LABORATORY | | | | | | SERVICES, | | | | | | CORE | | + +---------+ + + + | CREATININE | 0.71 | 0.60 - 1.10 | [facility] | | | PLASMA | | mg/dL | LABORATORY | | | (LAB) | | | SERVICES, | | | | | | CORE | | + +---------+ + + + | EGFR | >60 | >60 mL/min | [facility] | | | - | | | LABORATORY | | | SURINAMESE | | | SERVICES, | | | | | | CORE | | + +---------+ + + + | EGFR NON | >60 | >60 mL/min | [facility] | | | -RAOUL | | | LABORATORY | | | RICAN | | | SERVICES, | | | | | | CORE | | + +---------+ + + + | SODIUM, | 142 | 136 - 145 | [facility] | | | PLASMA | | mmol/L | LABORATORY | | | (LAB) | | | SERVICES, | | | | | | CORE | | + +---------+ + + + | POTASSIUM, | 3.2 (L) | 3.4 - 5.0 | [facility] | | | PLASMA | | mmol/L | LABORATORY | | | (LAB) | | | SERVICES, | | | | | | CORE | | + +---------+ + + + | CHLORIDE, | 111 (H) | 97 - 108 mmol/L | [facility] | | | PLASMA | | | LABORATORY | | | (LAB) | | | SERVICES, | | | | | | CORE | | + +---------+ + + + | TOTAL CO2, | 20 (L) | 21 - 32 mmol/L | [facility] | | | PLASMA | | | LABORATORY | | | (LAB) | | | SERVICES, | | | | | | CORE | | + +---------+ + + + | CALCIUM, | 7.6 (L) | 8.6 - 10.2 | [facility] | | | PLASMA | | mg/dL | LABORATORY | | | (LAB) | | | SERVICES, | | | | | | CORE | | + +---------+ + + + | CALCIUM(ALB | 9.0 | 8.6 - 10.2 | [facility] | | | CORRECTED) | | mg/dL | LABORATORY | | | | | | SERVICES, | | | | | | CORE | | + +---------+ + + + | BILIRUBIN | 0.2 (L) | 0.3 - 1.2 mg/dL | [facility] | | | TOTAL | | | LABORATORY | | | | | | SERVICES, | | | | | | CORE | | + +---------+ + + + | TOTAL | 5.0 (L) | 6.4 - 8.2 g/dL | [facility] | | | PROTEIN, | | | LABORATORY | | | PLASMA | | | SERVICES, | | | (LAB) | | | CORE | | + +---------+ + + + | ALBUMIN, | 2.3 (L) | 3.5 - 4.7 g/dL | [facility] | | | PLASMA | | | LABORATORY | | | (LAB) | | | SERVICES, | | | | | | CORE | | + +---------+ + + + | ALK PHOS | 63 | 42 - 98 U/L | [facility] [...] + + + | ALT (SGPT) | 17 | <=60 U/L | [facility] | | | | | | LABORATORY | | | | | | SERVICES, | | | | | | CORE | | + +---------+ + + + | ANION GAP | 11 | mmol/L | [facility] | | | | | | LABORATORY | | | | | | SERVICES, | | | | | | CORE | | + +---------+ + + + | ANION | 15 (H) | 4 - 11 mmol/L | [facility] [...] | + + + + + | [facility] | [address] | [place] [address] | | | SERVICES, [place] | [address] | | | + + + + + X-RAY PORTABLE CHEST 1 VIEW (07/30/2016 10:19 PM PST) + + + + + + | Component | Value | Ref Range | Performed | Pathologist | | | | | At | Signature | + + + + + + | X-RAY | EXAM: MN CHEST 1 VIEW | | | | | PORTABLE | 07/30/16 22:19:00 | | | | | CHEST 1 | HISTORY: Fever, | | | | | VIEW | tachycardia. Patient | | | | | | with bacteremia and | | | | | | neutropenic feversstatus | | | | | | post removal of right | | | | | | chest port and Goodman | | | | | | catheter. COMPARISON: | | | | | | 07/29/16 chest | | | | | | radiograph | | | | | | FINDINGS:Status post | | | | | | removal of right | | | | | | internal jugular | | | | | | approach port and | | | | | | catheter. Thereis | | | | | | increased density | | | | | | overlying the upper | | | | | | mediastinum, new from | | | | | | prior chestradiograph. | | | | | | The cardiomediastinal | | | | | | contour is normal. The | | | | | | lungs are clear,without | | | | | | focal consolidation to | | | | | | suggest pneumonia. There | | | | | | is no pleural | | | | | | effusion.There is no | | | | | | pulmonary edema or | | | | | | pneumothorax. The bones | | | | | | are intact. IMPRESSION: | | | | | | Clear lungs. Increased | | | | | | density in the upper | | | | | | mediastinum, likely | | | | | | artifactual and related | | | | | | todifferences in | | | | | | technique; small | | | | | | hematoma would be a | | | | | | lesser consideration. | | | | | | These results were | | | | | | discussed with Dr. Zarco | | | | | | at 2:45 AM by | | | | | | Xiomara | | | | | | ,radiologist-resident. | | | | | | Attending Radiologists: | | | | | | EDWIN IQBAL MDAuthor: | | | | | | SUSAN BRYAN MD I | | | | | | personally reviewed the | | | | | | images and, if | | | | | | necessary, edited the | | | | | | report. I agreewith the | | | | | | report as now presented. | | | | | | | | | | | | Final/Electronically | | | | | | signed / EDWIN IQBAL | | | | | | 07/31/2016 8:00 AM | | | | + + + + + + + + | Specimen | + + | | + + + +---------+ + + | Performing | Address | City/State/Zipcode | Phone Number | | Organization | | | | + +---------+ + + | [facility] | | | | | RADIOLOGY | | | | + +---------+ + + CULTURE, BLOOD BACTI & YEAST [facility] (07/30/2016 9:59 PM PST) + + + + + [...] | + + + + + | [facility] | [address] | [place] [address] | | | SERVICES, [place] | [address] | | | + + + + + TRANSTHORACIC ECHOCARDIOGRAM, ADULT (07/30/2016 4:57 PM PST) + + + + + + | Component | Value | Ref Range | Performed | Pathologist | | | | | At | Signature | + + + + + + | BIPLANE, EF | 55 | | [facility] | | | | | | OF | | | | | | CARDIOLOGY | | + + + + + + | EJECTION | 55 to 60 | | [facility] | | | FRACTION | | | OF | | | | | | CARDIOLOGY | | + + + + + + | LA | 4.3 | | [facility] | | | DIMENSION | | | OF | | | | | | CARDIOLOGY | | + + + + + + | LVIDD | 5.0 | | [facility] | | | | | | OF | | | | | | CARDIOLOGY | | + + + + + + | MV A VMAX | 0.6 | | [facility] | | | | | | OF | | | | | | CARDIOLOGY | | + + + + + + | MV E? | 0.1 | | [facility] | | | | | | OF | | | | | | CARDIOLOGY | | + + + + + + | MV E VMAX | 1.1 | | [facility] | | | | | | OF | | | | | | CARDIOLOGY | | + + + + + + | RVSP | 32 | | [facility] | | | | | | OF | | | | | | CARDIOLOGY | | + + + + + + | RV TAPSE | 2.2 | | [facility] | | | | | | OF | | | | | | CARDIOLOGY | | + + + + + + | RV TDI S? | 18.0 | | [facility] | | | | | | OF | | | | | | CARDIOLOGY | | + + + + + + | EJECTION | 57.5 | % | [facility] | | | FRACTION | | | OF | | | RANGE MEAN | | | CARDIOLOGY | | | VALUE | | | | | + + + + + + + + | Specimen | + + | | + + + + + | Narrative | Performed At | + + + | [facility] | [facility] DEPT OF | | [facility] Adult Echocardiography | CARDIOLOGY | | Laboratory [facility], | | | [place] [address] Pt Name: | | | MEGGAN OTERO Study Date/Time 07/30/2016 / 4:57:27 | | | PMMRN: [id number] Most recent | | | prior: -Acc #: [id number] No. previous echos: | | | 0DOB: 1995 20 years Heart Rate: 108 | | | bpmHeight: 70.0 in Blood Pressure: | | | 128/68 mm/HgWeight: 217.0 lb | | | Gender: FBSA: 2.16 | | | m2 Order ID: [id number] | | | Foot Piece Assembler: Leo RICHARD Referring Provider: Lashon Farias | | | Roseann Location: 14KModalities Performed: 2D, Color flow, | | | Spectral Doppler and Strain.Study Quality: Good.Exam Indication: MRSA | | | Bacteremia; Evaluate for infective endocarditisHistory: 20 y.o. 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 Patient history has been obtained from the EHR | | | Transthoracic Echocardiographic Report | | | + | | | -------+Final | | | Impressions: | | | | | | | | | | | | | | | | | | 1. The left ventricular cavity size is | | | normal. 2. | | | The LV ejection fraction is | | | normal. | | | | | | | | | 3. Right ventricular size, thickness and | | | function are normal. 4. No significant | | | valvular abnormalities | | | seen. 5. | | | There is a prominent Chiari network in the right atrium | | | (normal variant). | | | | | | 6. There are no prior exams available for | | | comparison. | | | | | | | | | + | | | + Cardio-Oncology Data | | | Table:+ + +-------+Study Date:LVEF | | | (Biplane) GLS + + +-------+07/30/2016 | | | 54.8 % -16.9 %+ + +-------+ | | | Description of Findings: Cardiac Rhythm: Tachycardia.Left Ventricle: | | | The left ventricular cavity size is normal. Visually estimated left | | | ventricular ejection fraction is 55 - 60%. The global longitudinal | | | strain is -16.9 %. The LV ejection fraction is normal.There is no left | | | ventricular hypertrophy. The ejection fraction is 54.8 % as measured | | | by Moran's biplane method.Left Ventricular Wall Motion: Left | | | ventricular systolic thickening is normal in all segments.Atria: Left | | | atrial size is normal. Normal right atrium. Prominent Chiari | | | network.Right Ventricle: Right ventricular size, thickness and | | | function are normal. TAPSE measures 2.2cm. The RV TDI s' velocity is | | | 18.0cm/sec.Aortic Valve: The aortic valve is trileaflet and normal in | | | structure and function. No indication of aortic valve | | | regurgitation.Mitral Valve: The mitral valve is structurally normal. | | | Trace mitral valve regurgitation.Tricuspid Valve: The tricuspid valve | | | is structurally normal. Trace tricuspid regurgitation. The tricuspid | | | regurgitant velocity is 2.43 m/s, and with an assumed right atrial | | | pressure of 8 mmHg, the estimated right ventricular systolic pressure | | | is normal at 31.7 mmHg.Pulmonic Valve: The pulmonic valve is not well | | | visualized. Mild pulmonary valve regurgitation. The peak trans | | | pulmonic gradient is 2.5 mmHg.Aorta: Visualized portions of the | | | ascending aorta and aortic root appear normal.Venous: The inferior | | | vena cava was normal sized, with respiratory size variation less than | | | 50%.Pericardium: A trivial pericardial effusion is seen. Additional | | | Findings: There are no prior exams.2D | | | Measurements Doppler Measurements | | | 2D NL Values Aortic | | | MitralLVID(d) 4.97 (3.5-5.7cm) Max Andrea 1.37 Peak | | | E 1.06 | | | cm | | | m/s m/sLVID(s) 3.62 | | | Mean grad 4.4 Peak | | | A 0.64 | | | cm | | | mmHg m/sIVS(d) 1.08 (0.6-1.1cm) | | | LVOT Andrea 1.26 E/A Ratio 1.66 | | | cm | | | m/sLVPW(d) 1.16 (0.6-1.1cm) LVOT Diam 2.25 TDI | | | (E/e') 7.5 | | | cm cmLA A/Ps 2D | | | 4.27 (2.7-3.9cm) Tricuspid Pulmonic | | | cm TR Vmax 2.43 PV Vmax | | | 0.8LA vol A/L 54.9 (40-73ml) | | | m/s m/sBP | | | ml RA Press 8 RVOT | | | VTI 14.9LA vol A/L 25.4 (16-34) | | | mmHg | | | cmindex ml/m2 RVSP 32 | | | PV mn gdLA vol MOD 52.3 (40-73ml) | | | mmHgBP mlLA vol MOD 24.2 (16-34) | | | Aorta: | | | Index:index ml/m2 Ao | | | Sinus 3.55 | | | (2.1-3.5cm) | | | cmBiplane EF 54.8 % Asc | | | Ao 3.06GLS | | | % -16.9 (prox) cm | | | %Evaluation of chamber size and geometry is accomplished | | | through the incorporation of linear, volumetric, and indexed values | | | Report electronically signed by: [id number] Deepti Cortes MD | | | (07/31/2016, 11:59:20 AM)REPORT GUGU=[id number] HOSP=PO REGION=A0 | | | Final | | |REPORT FHPO=[id number] HOSP=PO REGION=A0 | | | | | | | | | | | | Final | | + + + + + | Procedure Note | + + | Interface, Cardiology Results - 07/31/2016 11:59 AM [facility] | | [facility] Echocardiography Laboratory [facility] | | [place], [place] [address] Pt Name: MEGGAN SANCHEZ | | MARY Study Date/Time 07/30/2016 / 4:57:27 PMMRN: [id number] Most | | recent prior: -Acc #: [id number] No. previous echos: 0DOB: 1995 20 | | years Heart Rate: 108 bpmHeight: 70.0 in Blood Pressure: 128/68 | | mm/HgWeight: 217.0 lb Gender: FBSA: 2.16 m2 Order | | ID: [id number] Foot Piece Assembler: Leo Polanco RUSTReferring Provider: Lashon Farias | | BuralisonPatient Location: 14KModalities Performed: 2D, Color flow, Spectral Doppler | | and Strain.Study Quality: Good.Exam Indication: MRSA Bacteremia; Evaluate for infective | | endocarditisHistory: 20 y.o. female, relapsed classical Hodgkins, complicate by atypical | | HUS, admit for autoBMT. Patient history has been obtained from the EHR Transthoracic | | Echocardiographic | | Report+ +Renee | | l Impressions: | | | | 1. The left ventricular cavity size is | | normal. 2. The LV ejection fraction is normal. | | | | 3. Right ventricular size, thickness and function are normal. | | 4. No significant valvular abnormalities seen. 5. There is | | a prominent Chiari network in the right atrium (normal variant). | | 6. There are no prior exams | | available for comparison. | | | | + + | | Cardio-Oncology Data Table:+ + +-------+Study Date:LVEF (Biplane) | | GLS + + +-------+07/30/2016 54.8 % -16.9 | | %+ + +-------+ Description of Findings: Cardiac Rhythm: | | Tachycardia.Left Ventricle: The left ventricular cavity size is normal. Visually | | estimated left ventricular ejection fraction is 55 - 60%. The global longitudinal strain | | is -16.9 %. The LV ejection fraction is normal.There is no left ventricular | | hypertrophy. The ejection fraction is 54.8 % as measured by Moran's biplane | | method.Left Ventricular Wall Motion: Left ventricular systolic thickening is normal in | | all segments.Atria: Left atrial size is normal. Normal right atrium. Prominent Chiari | | network.Right Ventricle: Right ventricular size, thickness and function are normal. | | TAPSE measures 2.2cm. The RV TDI s' velocity is 18.0cm/sec.Aortic Valve: The aortic | | valve is trileaflet and normal in structure and function. No indication of aortic valve | | regurgitation.Mitral Valve: The mitral valve is structurally normal. Trace mitral valve | | regurgitation.Tricuspid Valve: The tricuspid valve is structurally normal. Trace | | tricuspid regurgitation. The tricuspid regurgitant velocity is 2.43 m/s, and with an | | assumed right atrial pressure of 8 mmHg, the estimated right ventricular systolic | | pressure is normal at 31.7 mmHg.Pulmonic Valve: The pulmonic valve is not well | | visualized. Mild pulmonary valve regurgitation. The peak trans pulmonic gradient is 2.5 | | mmHg.Aorta: Visualized portions of the ascending aorta and aortic root appear | | normal.Venous: The inferior vena cava was normal sized, with respiratory size variation | | less than 50%.Pericardium: A trivial pericardial effusion is seen. Additional Findings: | | There are no prior exams.2D Measurements Doppler Measurements | | 2D NL Values Aortic MitralLVID(d) 4.97 (3.5-5.7cm) Max Andrea 1.37 | | Peak E 1.06 cm m/s m/sLVID(s) | | 3.62 Mean grad 4.4 Peak A 0.64 cm | | mmHg m/sIVS(d) 1.08 (0.6-1.1cm) LVOT Andrea 1.26 E/A Ratio 1.66 | | cm m/sLVPW(d) 1.16 (0.6-1.1cm) LVOT Diam 2.25 TDI | | (E/e') 7.5 cm cmLA A/Ps 2D 4.27 (2.7-3.9cm) | | Tricuspid Pulmonic cm TR Vmax 2.43 PV Vmax 0.8LA | | vol A/L 54.9 (40-73ml) m/s m/sBP ml | | RA Press 8 RVOT VTI 14.9LA vol A/L 25.4 (16-34) mmHg | | cmindex ml/m2 RVSP 32 PV mn gdLA vol MOD 52.3 (40-73ml) | | mmHgBP mlLA vol MOD 24.2 (16-34) Aorta: | | Index:index ml/m2 Ao Sinus 3.55 (2.1-3.5cm) | | cmBiplane EF 54.8 % Asc Ao 3.06GLS % -16.9 | | (prox) cm %Evaluation of chamber size and geometry is accomplished | | through the incorporation of linear, volumetric, and indexed values Report | | electronically signed by: [id number] Deepti Cortes MD (07/31/2016, 11:59:20 AM)REPORT | | YCBX=[id number] HOSP= REGION=A0 Final | |Aortic Valve: The aortic valve is trileaflet and normal in structure and function. No | | indication of aortic valve regurgitation. | |Mitral Valve: The mitral valve is structurally normal. Trace mitral valve | |regurgitation. | |Tricuspid Valve: The tricuspid valve is structurally normal. Trace tricuspid | |regurgitation. The tricuspid regurgitant velocity is 2.43 m/s, and with an assumed | |right atrial pressure of 8 mmHg, the estimated right ventricular systolic pressure is | | normal at 31.7 mmHg. | |Pulmonic Valve: The pulmonic valve is not well visualized. Mild pulmonary valve | |regurgitation. The peak trans pulmonic gradient is 2.5 mmHg. | |Aorta: Visualized portions of the ascending aorta and aortic root appear normal. | |Venous: The inferior vena cava was normal sized, with respiratory size variation less | | than 50%. | |Pericardium: A trivial pericardial effusion is seen. | | | |Additional Findings: There are no prior exams. | |2D Measurements Doppler Measurements | | | | 2D NL Values Aortic Mitral | |LVID(d) 4.97 (3.5-5.7cm) Max Andrea 1.37 Peak E 1.06 | | cm m/s m/s | |LVID(s) 3.62 Mean grad 4.4 Peak A 0.64 | | cm mmHg m/s | |IVS(d) 1.08 (0.6-1.1cm) LVOT Andrea 1.26 E/A Ratio 1.66 | | cm m/s | |LVPW(d) 1.16 (0.6-1.1cm) LVOT Diam 2.25 TDI (E/e') 7.5 | | cm cm | |LA A/Ps 2D 4.27 (2.7-3.9cm) Tricuspid Pulmonic | | cm TR Vmax 2.43 PV Vmax 0.8 | |LA vol A/L 54.9 (40-73ml) m/s m/s | |BP ml RA Press 8 RVOT VTI 14.9 | |LA vol A/L 25.4 (16-34) mmHg cm | |index ml/m2 RVSP 32 PV mn gd | |LA vol MOD 52.3 (40-73ml) mmHg | |BP ml | |LA vol MOD 24.2 (16-34) Aorta: Index: | |index ml/m2 Ao Sinus 3.55 (2.1-3.5cm) | | cm | |Biplane EF 54.8 % Asc Ao 3.06 | |GLS % -16.9 (prox) cm | | % | |Evaluation of chamber size and geometry is accomplished through the incorporation of | |linear, volumetric, and indexed values | | | |Report electronically signed by: [id number] Deepti Cortes MD (07/31/2016, 11:59:20 AM) | |REPORT JXVT=[id number] [facility]=A0 | | | | | | | | Final | + + + + + + + | Performing | Address | City/State/Zipcode | Phone Number | | Organization | | | | + + + + + | [facility] | [address] | [place], [place] | | | CARDIOLOGY | [address] | [phone] | | + + + + + ELEAZAR LOO (07/30/2016 2:38 PM PST) + +-------+ + + + | Component | Value | Ref Range | Performed | Pathologist | | | | | At | Signature | + +-------+ + + + | VANCOMYCIN, | 7.6 | 5.0 - 15.0 | [facility] | | | [facility] | | ug/mL | LABORATORY | | | | | | SERVICES, | | | | | | CORE | | + +-------+ + + + + + | Specimen | + + | Blood | + + + + + | Narrative | Performed At | + + + | Please draw a vancomycin trough prior to the 1500 dose on | [facility] | | 07/20/16. Thank you | LABORATORY | | | SERVICES, CORE | + + + + + + + + | Performing | Address | City/State/Zipcode | Phone Number | | Organization | | | | + + + + + | [facility] | [address] | [place] [address] | | | SERVICES, [place] | [address] | | | + + + + + PROCEDURE NOTE (07/30/2016 9:51 AM PST) + + + | Narrative | Performed At | + + + | Edwin Harkins MD,MPH 07/30/2016 9:51 AM INPATIENT | | | OPERATIVE NOTE Procedure Date: 07-30-16 Author: Edwin Georges | | | MD Torin,MPH Attending Physician: Romeo Martinez MD Assistants: | | | Edwin Harkins MD Preoperative Diagnosis: Bacteremia, neutropenic | | | fevers Postoperative Diagnosis: Same Procedure Performed: | | | Removal of right chest Port-a-cath and Goodman catheters | | | Estimated Blood Loss: Minimal Fluids: Per anesthesia | | | Specimens: Tip of each catheter sent for gram stain and culture | | | Complications: None Drains: None Findings: Goodman site with | | | very small amount of turbid fluid at entry site. Port-a-cath site | | | without evidence of gross infection. No difficulty with | | | hemostasis. Indications for the procedure: The patient was brought | | | to the OR and positioned supine on the bed. The anesthesia team | | | administered a conscious sedation anesthetic. We held a | | | pre-operative pause. The right chest was prepped and draped to | | | create a sterile field. Her pre-operative antibiotics were all | | | current and no additional antibiotics were needed. The port site | | | was anesthetized with with 0.25% Marcaine. We first removed the | | | Goodman catheter by cutting the skin sutures and removing the line | | | with constant pressure. A small egress of turbid fluid was noted, | | | that may represent purulent material. Pressure was then held for | | | several minutes to achieve hemostasis. We turned back to the | | | port site, where we used the previous scar for our incision. We | | | entered the port cavity and capsule. There was no gross evidence | | | of infection. The port was identified and the prolene sutures | | | were cut to free it from the chest wall while it was on | | | traction. It was then removed under constant tension. The tip | | | was cut and sent for culture. The wound cavity was packed and | | | then hemostasis was achieved. The skin was closed with several | | | 4-0 Biosyn sutures in the dermis and dressed with tegaderm. The | | | Goodman site was dressed with a band-aid. Her sedation was | | | discontinued and she awoke without significant event. Dr Martinez was | | | present and scrubbed for the entirety of the procedure. | | | Dispo: to PACU and then yu | | + + + CAPILLARY BLOOD GLUCOSE (NO CHG), POC (07/30/2016 9:23 AM PST) + +-------+ + + + | Component | Value | Ref Range | Performed | Pathologist | | | | | At | Signature | + +-------+ + + + | BLOOD | 82 | 60 - 99 mg/dL | [facility] - | | | GLUCOSE, | | | [facility] | | | POC | | | [facility] | | | | | | OF CARE | | | | | | TESTS | | + +-------+ + + + + + | Specimen | + + | | + + + + + + + | Performing | Address | City/State/Zipcode | Phone Number | | Organization | | | | + + + + + | [facility] | [address] | [place], [place] | | | [facility] | [address] | [address] | | | TESTS | | | | + + + + + CULTURE, STERILITY BACTI (07/30/2016 8:32 AM PST) + + | Specimen | + + | Device | + + + + + | Narrative | Performed At | + + + | Culture Report: No growth Gram Stain: Moderate | [facility] - | | polymorphonuclear cells No squamous epithelial cells No organisms | [facility] - | | seen | [place] | + + + + + + + + | Performing | Address | City/State/Zipcode | Phone Number | | Organization | | | | + + + + + | [facility] | [address] | [place] [address] | | | [place] | | | | + + + + + CULTURE, STERILITY BACTI (07/30/2016 8:32 AM PST) + + | Specimen | + + | Device | + + + + + | Narrative | Performed At | + + + | Culture Report: No growth | [facility] - | | | [facility] - | | | [place] | + + + + + + + + | Performing | Address | City/State/Zipcode | Phone Number | | Organization | | | | + + + + + | [facility] | [address] | [place] [address] | | | [place] | | | | + + + + + PRODUCT - PLATELET PHERESIS LEUKOREDUCED (07/30/2016 7:20 AM PST) + + + + + + | Component | Value | Ref Range | Performed | Pathologist | | | | | At | Signature | + + + + + + | PRODUCT | PLATELETS PHERESIS, | | [facility] | | | DESCRIPTION | LEUKOCYTE REDUCED, | | LABORATORY | | | | IRRADIATED | | SERVICES, | | | | | | TRANSFUSION | | | | | | MEDICINE | | + + + + + + | PRODUCT | [id number] | | [facility] | | | UNIT # | | | LABORATORY | | | | | | SERVICES, | | | | | | TRANSFUSION | | | | | | MEDICINE | | + + + + + + | UNIT ABO | A | | [facility] | | | | | | LABORATORY | | | | | | SERVICES, | | | | | | TRANSFUSION | | | | | | MEDICINE | | + + + + + + | UNIT RH | POS | | [facility] | | | | | | LABORATORY | | | | | | SERVICES, | | | | | | TRANSFUSION | | | | | | MEDICINE | | + + + + + + | STATUS OF | Returned to Blood Bank | | [facility] | | | UNIT | | | LABORATORY | | | | | | SERVICES, | | | | | | TRANSFUSION | | | | | | MEDICINE | | + + + + + + | EXPIRATION | [id number] | | [facility] | | | DATE | | | LABORATORY | | | | | | SERVICES, | | | | | | TRANSFUSION | | | | | | MEDICINE | | + + + + + + | BLOOD TYPE | [phone] | | [facility] | | | BARCODE | | | LABORATORY | | | | | | SERVICES, | | | | | | TRANSFUSION | | | | | | MEDICINE | | + + + + + + | BLOOD | [id number] | | [facility] | | | PRODUCT | | | LABORATORY | | | CODE | | | SERVICES, | | | | | | TRANSFUSION | | | | | | MEDICINE | | + + + + + + + + | Specimen | + + | | + + + + + + + | Performing | Address | City/State/Zipcode | Phone Number | | Organization | | | | + + + + + | [facility] | [address] | [place] [address] | | | SERVICES, | [address] | | | | TRANSFUSION MEDICINE | | | | + + + + + CULTURE, BLOOD BACTI & YEAST [facility] (07/30/2016 2:30 AM PST) + + + + + [...] Specimen | + + | Blood - Red port | | lumen | + + + + + + + | Performing | Address | City/State/Zipcode | Phone Number | | Organization | | | | + + + + + | [facility] | [address] | [place] [address] | | | SERVICES, CORE | [address] | | | + + + + + PLATELET COUNT, WHOLE BLOOD (07/30/2016 2:30 AM PST) + +--------+ + + + | Component | Value | Ref Range | Performed | Pathologist | | | | | At | Signature | + +--------+ + + + | PLATELET | 52 (L) | 150 - 400 K/cu | [facility] | | | COUNT | | mm | LABORATORY | | | | | | SERVICES, | | | | | | CORE | | + +--------+ + + + + + | Specimen | + + | Blood | + + + + + + + | Performing | Address | City/State/Zipcode | Phone Number | | Organization | | | | + + + + + | [facility] | [address] | [place] [address] | | | SERVICES, CORE | [address] | | | + + + + + ANTIBODY SCREEN (07/30/2016 2:30 AM PST) + + + + + + | Component | Value | Ref Range | Performed | Pathologist | | | | | At | Signature | + + + + + + | Antibody | Negative | | [facility] | | | Screen | | | LABORATORY | | | | | | SERVICES, | | | | | | TRANSFUSION | | | | | | MEDICINE | | + + + + + + + + | Specimen | + + | Blood | + + + + + + + | Performing | Address | City/State/Zipcode | Phone Number | | Organization | | | | + + + + + | [facility] | [address] | [place] [address] | | | SERVICES, | [address] | | | | TRANSFUSION MEDICINE | | | | + + + + + ABO & RH TYPE (07/30/2016 2:30 AM PST) + + + + + + | Component | Value | Ref Range | Performed | Pathologist | | | | | At | Signature | + + + + + + | ABO Group | A | | [facility] | | | | | | LABORATORY | | | | | | SERVICES, | | | | | | TRANSFUSION | | | | | | MEDICINE | | + + + + + + | Rh Type | Positive | | [facility] | | | | | | LABORATORY | | | | | | SERVICES, | | | | | | TRANSFUSION | | | | | | MEDICINE | | + + + + + + + + | Specimen | + + | Blood | + + + + + + + | Performing | Address | City/State/Zipcode | Phone Number | | Organization | | | | + + + + + | [facility] | [address] | [place] [address] | | | SERVICES, | [address] | | | | TRANSFUSION MEDICINE | | | | + + + + + PRODUCT - RED CELLS LEUKOREDUCED (07/30/2016 1:02 AM PST) + + + + + + | Component | Value | Ref Range | Performed | Pathologist | | | | | At | Signature | + + + + + + | PRODUCT | -1 RED BLOOD CELLS | | [facility] | | | DESCRIPTION | ADENINE-SALINE ADDED | | LABORATORY | | | | LEUKOCYT | | SERVICES, | | | | | | TRANSFUSION | | | | | | MEDICINE | | + + + + + + | PRODUCT | [id number] | | [facility] | | | UNIT # | | | LABORATORY | | | | | | SERVICES, | | | | | | TRANSFUSION | | | | | | MEDICINE | | + + + + + + | UNIT ABO | A | | [facility] | | | | | | LABORATORY | | | | | | SERVICES, | | | | | | TRANSFUSION | | | | | | MEDICINE | | + + + + + + | UNIT RH | POS | | [facility] | | | | | | LABORATORY | | | | | | SERVICES, | | | | | | TRANSFUSION | | | | | | MEDICINE | | + + + + + + | STATUS OF | Presumed Transfused | | [facility] | | | UNIT | | | LABORATORY | | | | | | SERVICES, | | | | | | TRANSFUSION | | | | | | MEDICINE | | + + + + + + | EXPIRATION | [id number] | | [facility] | | | DATE | | | LABORATORY | | | | | | SERVICES, | | | | | | TRANSFUSION | | | | | | MEDICINE | | + + + + + + | BLOOD TYPE | [phone] | | [facility] | | | BARCODE | | | LABORATORY | | | | | | SERVICES, | | | | | | TRANSFUSION | | | | | | MEDICINE | | + + + + + + | BLOOD | [id number] | | [facility] | | | PRODUCT | | | LABORATORY | | | CODE | | | SERVICES, | | | | | | TRANSFUSION | | | | | | MEDICINE | | + + + + + + + + | Specimen | + + | | + + + + + + + | Performing | Address | City/State/Zipcode | Phone Number | | Organization | | | | + + + + + | [facility] | [address] | [place] [address] | | | SERVICES, | [address] | | | | TRANSFUSION MEDICINE | | | | + + + + + CBC AND AUTO DIFF (07/30/2016 12:08 AM PST) + + + + + + | Component | Value | Ref Range | Performed | Pathologist | | | | | At | Signature | + + + + + + | WHITE CELL | <0.10 (L) | 3.50 - 10.80 | [facility] | | | COUNT | | K/cu mm | LABORATORY | | | | | | SERVICES, | | | | | | CORE | | + + + + + + | RED CELL | 2.18 (L) | 4.00 - 5.20 | [facility] | | | COUNT | | M/cu mm | LABORATORY | | | | | | SERVICES, | | | | | | CORE | | + + + + + + | HEMOGLOBIN | 6.6 (L) | 12.0 - 16.0 | [facility] | | | | | g/dL | LABORATORY | | | | | | SERVICES, | | | | | | CORE | | + + + + + + | HEMATOCRIT | 19.3 (L) | 36.0 - 46.0 % | [facility] | | | | | | LABORATORY | | | | | | SERVICES, | | | | | | CORE | | + + + + + + | MCV | 88.5 | 80.0 - 96.0 fL | [facility] | | | | | | LABORATORY | | | | | | SERVICES, | | | | | | CORE | | + + + + + + | MCHC | 34.2 | 33.0 - 35.5 | [facility] | | | | | g/dL | LABORATORY | | | | | | SERVICES, | | | | | | CORE | | + + + + + + | RDW SD | 43.4 | 35.1 - 46.3 fL | [facility] | | | | | | LABORATORY | | | | | | SERVICES, | | | | | | CORE | | + + + + + + | PLATELET | 39 (L) | 150 - 400 K/cu | [facility] | | | COUNT | | mm | LABORATORY | | | | | | SERVICES, | | | | | | CORE | | + + + + + + | MPV | 10.2 | 9.7 - 12.3 fL | [facility] [...] + + + + | NEUTROPHIL | Comment: WBC <300; | 50.0 - 70.0 % | [facility] | | | % | differential not | | LABORATORY | | | | performed. | | SERVICES, | | | | | | CORE | | + + + + + + | LYMPHOCYTE | Comment: WBC <300; | 18.0 - 42.0 % | [facility] | | | % | differential not | | LABORATORY | | | | performed. | | SERVICES, | | | | | | CORE | | + + + + + + | MONOCYTE % | Comment: WBC <300; | 3.5 - 9.0 % | [facility] | | | | differential not | | LABORATORY | | | | performed. | | SERVICES, | | | | | | CORE | | + + + + + + | EOS % | Comment: WBC <300; | 1.0 - 3.0 % | [facility] | | | | differential not | | LABORATORY | | | | performed. | | SERVICES, | | | | | | CORE | | + + + + + + | BASO % | Comment: WBC <300; | 0.0 - 2.0 % | [facility] | | | | differential not | | LABORATORY | | | | performed. | | SERVICES, | | | | | | CORE | | + + + + + + | IG% | Comment: WBC <300; | 0.0 - 0.6 % | [facility] | | | | differential not | | LABORATORY | | | | performed. | | SERVICES, | | | | | | CORE | | + + + + + + | NEUTROPHIL | Comment: WBC <300; | 1.80 - 7.70 | [facility] | | | # | differential not | K/cu mm | LABORATORY | | | | performed. | | SERVICES, | | | | | | CORE | | + + + + + + | LYMPHOCYTE | Comment: WBC <300; | 1.00 - 4.80 | [facility] | | | # | differential not | K/cu mm | LABORATORY | | | | performed. | | SERVICES, | | | | | | CORE | | + + + + + + | MONOCYTE # | Comment: WBC <300; | 0.10 - 0.90 | [facility] | | | | differential not | K/cu mm | LABORATORY | | | | performed. | | SERVICES, | | | | | | CORE | | + + + + + + | EOS # | Comment: WBC <300; | 0.00 - 0.50 | [facility] | | | | differential not | K/cu mm | LABORATORY | | | | performed. | | SERVICES, | | | | | | CORE | | + + + + + + | BASO # | Comment: WBC <300; | 0.00 - 0.10 | [facility] | | | | differential not | K/cu mm | LABORATORY | | | | performed. | | SERVICES, | | | | | | CORE | | + + + + + + | IG# | Comment: WBC <300; | 0.00 - 0.03 | [facility] | | | | differential not | K/cu mm | LABORATORY | | | | performed. | | SERVICES, | | | | | | CORE | | + + + + + + + + | Specimen | + + | Blood | + + + + + | Narrative | Performed At | + + + | New adult WBC reference ranges effective June 30, 2016. | [facility] | | | LABORATORY | | | SERVICES, CORE | + + + + + + + + | Performing | Address | City/State/Zipcode | Phone Number | | Organization | | | | + + + + + | [facility] | [address] | [place] [address] | | | SERVICES, CORE | [address] | | | + + + + + PHOSPHORUS, PLASMA (07/30/2016 12:08 AM PST) + +---------+ + + + | Component | Value | Ref Range | Performed | Pathologist | | | | | At | Signature | + +---------+ + + + | PHOSPHORUS, | 1.6 (L) | 2.4 - 4.7 mg/dL | [facility] [...] [facility] | [address] | [place] [address] | | | [address] | [address] | | | + + + + + MAGNESIUM, PLASMA (07/30/2016 12:08 AM PST) + +-------+ + + + [...] | + + + + + | [facility] | [address] | [place] [address] | | | SERVICES, CORE | [address] | | | + + + + + COMPLETE METABOLIC SET (NA,K,CL,CO2,BUN,CREAT,GLUC,CA,AST,ALT,BILI TOTAL,ALK PHOS,ALB,PROT TOTAL) (07/30/2016 12:08 AM PST) + +---------+ + + + | Component | Value | Ref Range | Performed | Pathologist | | | | | At | Signature | + +---------+ + + + | GLUCOSE, | 106 (H) | 60 - 99 mg/dL | [facility] | | | PLASMA | | | LABORATORY | | | (LAB) | | | SERVICES, | | | | | | CORE | | + +---------+ + + + | BUN, PLASMA | 4 (L) | 6 - 20 mg/dL | [facility] [...] | | | LABORATORY | | | SURINAMESE | | | SERVICES, | | | [...] +---------+ + + + | POTASSIUM, | 3.3 (L) | 3.4 - 5.0 | [facility] | | | PLASMA | | mmol/L | LABORATORY | | | (LAB) | | | SERVICES, | | | | | | CORE | | + +---------+ + + + | CHLORIDE, | 107 | 97 - 108 mmol/L | [facility] | | | PLASMA | | | LABORATORY | | | (LAB) | | | SERVICES, | | | | | | CORE | | + +---------+ + + + | TOTAL CO2, | 22 | 21 - 32 mmol/L | [facility] | | | PLASMA | | | LABORATORY | | | (LAB) | | | SERVICES, | | | | | | CORE | | + +---------+ + + + | CALCIUM, | 7.2 (L) | 8.6 - 10.2 | [facility] | | | PLASMA | | mg/dL | LABORATORY | | | (LAB) | | | SERVICES, | | | | | | CORE | | + +---------+ + + + | CALCIUM(ALB | 8.4 (L) | 8.6 - 10.2 | [facility] [...] +---------+ + + + | TOTAL | 5.2 (L) | 6.4 - 8.2 g/dL | [facility] | | | PROTEIN, | | | LABORATORY | | | PLASMA | | | SERVICES, | | | (LAB) | | | CORE | | + +---------+ + + + | ALBUMIN, | 2.5 (L) | 3.5 - 4.7 g/dL | [facility] | | | PLASMA | | | LABORATORY | | | (LAB) | | | SERVICES, | | | | | | CORE | | + +---------+ + + + | ALK PHOS | 61 | 42 - 98 U/L | [facility] | | | | | | LABORATORY | | | | | | SERVICES, | | | | | | CORE | | + +---------+ + + + | AST(SGOT) | 9 | <=41 U/L | [facility] | | | | | | LABORATORY | | | | | | SERVICES, | | | | | | CORE | | + +---------+ + + + | ALT (SGPT) | 12 | <=60 U/L | [facility] | | | | | | LABORATORY | | | | | | SERVICES, | | | | | | CORE | | + +---------+ + + + | ANION GAP | 10 | mmol/L | [facility] | | | | | | LABORATORY | | | | | | SERVICES, | | | | | | CORE | | + +---------+ + + + | ANION | 13 (H) | 4 - 11 mmol/L | [facility] [...] | + + + + + | [facility] [employer] [facility] | [address] | [place] [address] | | | ELISA, [place] | [address] | | | + + + + + CARDIOLOGY (07/30/2016 12:00 AM PST) + + + | Narrative | Performed At | + + + | | | + + + X-RAY PORTABLE CHEST 1 VIEW (07/29/2016 9:54 PM PST) + + + + + + | Component | Value | Ref Range | Performed | Pathologist | | | | | At | Signature | + + + + + + | X-RAY | EXAM: MN CHEST 1 VIEW | | | | | PORTABLE | 07/29/16 21:54:00 | | | | | CHEST 1 | HISTORY: Hypoxemia | | | | | VIEW | COMPARISON: Yesterday | | | | | | FINDINGS: Port-A-Cath | | | | | | and right jugular venous | | | | | | catheter remain in | | | | | | place.Cardiomediastinal | | | | | | silhouette is | | | | | | normal. The lungs are | | | | | | clear. There is | | | | | | nopulmonary edema. No | | | | | | pleural effusion is | | | | | | evident. IMPRESSION: | | | | | | Clear lungs. Attending | | | | | | Radiologists: MARTIN | | | | | | EMMY TYSONuthor: | | | | | | MARTIN TYSON MD I | | | | | | personally reviewed the | | | | | | images and, if | | | | | | necessary, edited the | | | | | | report. I agreewith the | | | | | | report as now presented. | | | | | | | | | | | | Final/Electronically | | | | | | signed / MARTIN | | | | | | MARBELLA 07/30/2016 8:34 | | | | | | AM | | | | + + + + + + + + | Specimen | + + | | + + + +---------+ + + | Performing | Address | City/State/Zipcode | Phone Number | | Organization | | | | + +---------+ + + | [facility] DEPARTMENT OF | | | | | RADIOLOGY | | | | + +---------+ + + RESPIRATORY PATHOGEN PANEL PCR (07/29/2016 9:30 PM PST) + + + + + + | Component | Value | Ref Range | Performed | Pathologist | | | | | At | Signature | + + + + + + | ADENOVIRUS | Not Detected | Not Detected | [facility] | | | PCR | | | LABORATORY | | | | | | SERVICES, | | | | | | CORE | | + + + + + + | CORONAVIRUS | Not Detected | Not Detected | [facility] | | | 229E PCR | | | LABORATORY | | | | | | SERVICES, | | | | | | CORE | | + + + + + + | CORONAVIRUS | Not Detected | Not Detected | [facility] | | | HKU1 PCR | | | LABORATORY | | | | | | SERVICES, | | | | | | CORE | | + + + + + + | CORONAVIRUS | Not Detected | Not Detected | [facility] | | | NL63 PCR | | | LABORATORY | | | | | | SERVICES, | | | | | | CORE | | + + + + + + | CORONAVIRUS | Not Detected | Not Detected | [facility] | | | OC43 PCR | | | LABORATORY | | | | | | SERVICES, | | | | | | CORE | | + + + + + + | METAPNEUMOV | Not Detected | Not Detected | [facility] | | | IRUS PCR | | | LABORATORY | | | | | | SERVICES, | | | | | | CORE | | + + + + + + | RHINOVIRUS/ | Not Detected | Not Detected | [facility] | | | ENTEROVIRUS | | | LABORATORY | | | PCR | | | SERVICES, | | | | | | CORE | | + + + + + + | INFLUENZA A | Not Detected | Not Detected | [facility] | | | PCR | | | LABORATORY | | | | | | SERVICES, | | | | | | CORE | | + + + + + + | INFLUENZA A | Not Detected | Not Detected | [facility] | | | SUBTYPE H1 | | | LABORATORY | | | PCR | | | SERVICES, | | | | | | CORE | | + + + + + + | INFLUENZA A | Not Detected | Not Detected | [facility] | | | H1-2009 | | | LABORATORY | | | PCR | | | SERVICES, | | | | | | CORE | | + + + + + + | INFLUENZA A | Not Detected | Not Detected | [facility] | | | H3 PCR | | | LABORATORY | | | | | | SERVICES, | | | | | | CORE | | + + + + + + | INFLUENZA B | Not Detected | Not Detected | [facility] | | | PCR | | | LABORATORY | | | | | | SERVICES, | | | | | | CORE | | + + + + + + | PARAINFLUEN | Not Detected | Not Detected | [facility] | | | ZA 1 PCR | | | LABORATORY | | | | | | SERVICES, | | | | | | CORE | | + + + + + + | PARAINFLUEN | Not Detected | Not Detected | [facility] | | | ZA 2 PCR | | | LABORATORY | | | | | | SERVICES, | | | | | | CORE | | + + + + + + | PARAINFLUEN | Not Detected | Not Detected | [facility] | | | ZA 3 PCR | | | LABORATORY | | | | | | SERVICES, | | | | | | CORE | | + + + + + + | PARAINFLUEN | Not Detected | Not Detected | [facility] | | | ZA 4 PCR | | | LABORATORY | | | | | | SERVICES, | | | | | | CORE | | + + + + + + | RSV PCR | Not Detected | Not Detected | [facility] | | | | | | LABORATORY | | | | | | SERVICES, | | | | | | CORE | | + + + + + + | BORDETELLA | Not Detected | Not Detected | [facility] | | | PERTUSSIS | | | LABORATORY | | | PCR | | | SERVICES, | | | | | | CORE | | + + + + + + | CHLAMYDOPHI | Not Detected | Not Detected | [facility] | | | LA | | | LABORATORY | | | PNEUMONIAE | | | SERVICES, | | | PCR | | | CORE | | + + + + + + | MYCOPLASMA | Not Detected | Not Detected | [facility] | | | PNEUMONIAE | | | LABORATORY | | | PCR | | | SERVICES, | | | | | | CORE | | + + + + + + + + | Specimen | + + | Swab | + + + + + + + | Performing | Address | City/State/Zipcode | Phone Number | | Organization | | | | + + + + + | [facility] | [address] | [place] [address] | | | SERVICES, CORE | [address] | | | + + + + + PRODUCT - PLATELET PHERESIS LEUKOREDUCED (07/29/2016 3:56 PM PST) + + + + + + | Component | Value | Ref Range | Performed | Pathologist | | | | | At | Signature | + + + + + + | PRODUCT | PLATELETS PHERESIS, | | [facility] | | | DESCRIPTION | LEUKOCYTE REDUCED, | | LABORATORY | | | | IRRADIATED | | SERVICES, | | | | | | TRANSFUSION | | | | | | MEDICINE | | + + + + + + | PRODUCT | [id number] | | [facility] | | | UNIT # | | | LABORATORY | | | | | | SERVICES, | | | | | | TRANSFUSION | | | | | | MEDICINE | | + + + + + + | UNIT ABO | A | | [facility] | | | | | | LABORATORY | | | | | | SERVICES, | | | | | | TRANSFUSION | | | | | | MEDICINE | | + + + + + + | UNIT RH | POS | | [facility] | | | | | | LABORATORY | | | | | | SERVICES, | | | | | | TRANSFUSION | | | | | | MEDICINE | | + + + + + + | STATUS OF | Presumed Transfused | | [facility] | | | UNIT | | | LABORATORY | | | | | | SERVICES, | | | | | | TRANSFUSION | | | | | | MEDICINE | | + + + + + + | EXPIRATION | [phone] | | [facility] | | | DATE | | | LABORATORY | | | | | | SERVICES, | | | | | | TRANSFUSION | | | | | | MEDICINE | | + + + + + + | BLOOD TYPE | 6200 | | [facility] | | | BARCODE | | | LABORATORY | | | | | | SERVICES, | | | | | | TRANSFUSION | | | | | | MEDICINE | | + + + + + + | BLOOD | [id number] | | [facility] | | | PRODUCT | | | LABORATORY | | | CODE | | | SERVICES, | | | | | | TRANSFUSION | | | | | | MEDICINE | | + + + + + + + + | Specimen | + + | | + + + + + + + | Performing | Address | City/State/Zipcode | Phone Number | | Organization | | | | + + + + + | [facility] | [address] | [place] [address] | | | SERVICES, | [address] | | | | TRANSFUSION MEDICINE | | | | + + + + + PRODUCT - PLATELET PHERESIS LEUKOREDUCED (07/29/2016 3:56 PM PST) + + + + + + | Component | Value | Ref Range | Performed | Pathologist | | | | | At | Signature | + + + + + + | PRODUCT | PLATELETS PHERESIS, | | [facility] | | | DESCRIPTION | LEUKOCYTE REDUCED, | | LABORATORY | | | | IRRADIATED | | SERVICES, | | | | | | TRANSFUSION | | | | | | MEDICINE | | + + + + + + | PRODUCT | [id number] | | [facility] | | | UNIT # | | | LABORATORY | | | | | | SERVICES, | | | | | | TRANSFUSION | | | | | | MEDICINE | | + + + + + + | UNIT A[facility] | A | | [facility] | | | | | | LABORATORY | | | | | | SERVICES, | | | | | | TRANSFUSION | | | | | | MEDICINE | | + + + + + + | UNIT RH | POS | | [facility] | | | | | | LABORATORY | | | | | | SERVICES, | | | | | | TRANSFUSION | | | | | | MEDICINE | | + + + + + + | STATUS OF | Presumed Transfused | | [facility] | | | UNIT | | | LABORATORY | | | | | | SERVICES, | | | | | | TRANSFUSION | | | | | | MEDICINE | | + + + + + + | EXPIRATION | [phone] | | [facility] | | | DATE | | | LABORATORY | | | | | | SERVICES, | | | | | | TRANSFUSION | | | | | | MEDICINE | | + + + + + + | BLOOD TYPE | 6200 | | [facility] | | | BARCODE | | | LABORATORY | | | | | | SERVICES, | | | | | | TRANSFUSION | | | | | | MEDICINE | | + + + + + + | BLOOD | [id number] | | [facility] | | | PRODUCT | | | LABORATORY | | | CODE | | | SERVICES, | | | | | | TRANSFUSION | | | | | | MEDICINE | | + + + + + + + + | Specimen | + + | | + + + + + + + | Performing | Address | City/State/Zipcode | Phone Number | | Organization | | | | + + + + + | [facility] | [address] | [place] [address] | | | SERVICES, | [address] | | | | TRANSFUSION MEDICINE | | | | + + + + + BLOOD CULTURE WORKUP (07/29/2016 3:42 PM PST) + + + + + + | Component | Value | Ref Range | Performed | Pathologist | | | | | At | Signature | + + + + + + | CULTURE | Staphylococcus aureus, | | [facility] - | | | RESULT | Methicillin Resistant | | [facility] - | | | | (A) | | [place] | | + + + + + + + + | Specimen | + + | Blood | + + + + + | Narrative | Performed At | + + + | Culture Report: Methicillin Resistant Staphylococcus aureus | [facility] - | | Presumptive identification Refer to culture collected 07/28/16 at | [facility] - | | 4:20 pm for complete identification and susceptibilities Growth in | [place] | | Aerobic bottle Growth in Anaerobic bottle | | + + + + + + + + | Performing | Address | City/State/Zipcode | Phone Number | | Organization | | | | + + + + + | [facility] - [facility] - | [address] | [place] [address] | | | [place] | | | | + + + + + CULTURE, BLOOD BACTI & YEAST MARICEL (07/29/2016 3:42 PM PST) + + + + + + | Component | Value | Ref Range | Performed | Pathologist | | | | | At | Signature | + + + + + + | CULTURE | Not tested by molecular | | [facility] | | | RESULT | method, see culture | | LABORATORY | | | | report. (AA) | | SERVICES, | | | | | | CORE | | + + + + + + | GRAM STAIN | Gram positive cocci in | | [facility] | | | | clusters | | LABORATORY | | | | | | SERVICES, | | | | | | CORE | | + + + + + + + + | Specimen | + + | Blood | + + + + + | Narrative | Performed At | + + + | Growth in Aerobic Bottle. Growth in Anaerobic Bottle. | [facility] | | | LABORATORY | | | [address] | + + + + + + + + | Performing | Address | City/State/Zipcode | Phone Number | | Organization | | | | + + + + + | [facility] | [address] | [place] [address] | | | [address] | [address] | | | + + + + + PLATELET COUNT, WHOLE BLOOD (07/29/2016 3:42 PM PST) + +--------+ + + + | Component | Value | Ref Range | Performed | Pathologist | | | | | At | Signature | + +--------+ + + + | PLATELET | 34 (L) | 150 - 400 K/cu | [facility] | | | COUNT | | mm | LABORATORY | | | | | | SERVICES, | | | | | | CORE | | + +--------+ + + + + + | Specimen | + + | Blood | + + + + + + + | Performing | Address | City/State/Zipcode | Phone Number | | Organization | | | | + + + + + | [facility] | [address] | [place] [address] | | | SERVICES, CORE | [address] | | | + + + + + VRE (XENIA) BY PCR (07/29/2016 3:00 PM PST) + + + + + + | Component | Value | Ref Range | Performed | Pathologist | | | | | At | Signature | + + + + + + | VRE BY PCR | Negative for van A gene | Negative for | [facility] | | | | | van A gene | LABORATORY | | | | | | SERVICES, | | | | | | CORE | | + + + + + + + + | Specimen | + + | Swab | + + + + + + + | Performing | Address | City/State/Zipcode | Phone Number | | Organization | | | | + + + + + | [facility] | [address] | [place] [address] | | | SERVICES, CORE | [address] | | | + + + + + BLOOD CULTURE WORKUP (07/29/2016 2:45 PM PST) + + + + + + | Component | Value | Ref Range | Performed | Pathologist | | | | | At | Signature | + + + + + + | CULTURE | Staphylococcus aureus, | | [facility] - | | | RESULT | Methicillin Resistant | | [facility] - | | | | (A) | | [facility] | | + + + + + + + + | Specimen | + + | Blood - [place] | + + + + + | Narrative | Performed At | + + + | Culture Report: Methicillin Resistant Staphylococcus aureus | [facility] - | | Presumptive identification Refer to culture collected 07/28/16 at | [facility] - | | 4:20 pm for complete identification and susceptibilities Growth in | [place] | | Aerobic bottle Growth in Anaerobic bottle | | + + + + + + + + | Performing | Address | City/State/Zipcode | Phone Number | | Organization | | | | + + + + + | [facility] - | [address] | [place] [address] | | | [place] | | | | + + + + + CULTURE, BLOOD BACTI & YEAST MARICEL (07/29/2016 2:45 PM PST) + + + + + + | Component | Value | Ref Range | Performed | Pathologist | | | | | At | Signature | + + + + + + | CULTURE | Not tested by molecular | | [facility] | | | RESULT | method, see culture | | LABORATORY | | | | report. (AA) | | SERVICES, | | | | | | CORE | | + + + + + + | GRAM STAIN | Gram positive cocci in | | [facility] | | | | clusters | | LABORATORY | | | | | | SERVICES, | | | | | | CORE | | + + + + + + + + | Specimen | + + | Blood - Port[place]ath | + + + + + | Narrative | Performed At | + + + | Growth in Aerobic Bottle. Growth in Anaerobic Bottle. | [facility] | | | LABORATORY | | | SERVICES, CORE | + + + + + + + + | Performing | Address | City/State/Zipcode | Phone Number | | Organization | | | | + + + + + | [facility] | [address] | [place] [address] | | | SERVICES, CORE | [address] | | | + + + + + BLOOD CULTURE WORKUP (07/29/2016 1:19 PM PST) + + + + + + | Component | Value | Ref Range | Performed | Pathologist | | | | | At | Signature | + + + + + + | CULTURE | Staphylococcus aureus, | | [facility] - | | | RESULT | Methicillin Resistant | | AIR[facility] - | | | | (A) | | [place] | | + + + + + + + + | Specimen | + + | Blood - Blue [place] | | lumen | + + + + + | Narrative | Performed At | + + + | Culture Report: Methicillin Resistant Staphylococcus aureus | [facility] - | | Presumptive identification Refer to culture collected 07/28/16 at | [facility] - | | 4:20 pm for complete identification and susceptibilities Growth in | [place] | | Aerobic bottle Growth in Anaerobic bottle | | + + + + + + + + | Performing | Address | City/State/Zipcode | Phone Number | | Organization | | | | + + + + + | [facility] - [facility] - | [address] | [place] [address] | | | [place] | | | | + + + + + CULTURE, BLOOD BACTI & YEAST MARICEL (07/29/2016 1:19 PM PST) + + + + + + | Component | Value | Ref Range | Performed | Pathologist | | | | | At | Signature | + + + + + + | CULTURE | Not tested by molecular | | [facility] | | | RESULT | method, see culture | | LABORATORY | | | | report. (AA) | | SERVICES, | | | | | | CORE | | + + + + + + | GRAM STAIN | Gram positive cocci in | | [facility] | | | | clusters | | LABORATORY | | | | | | SERVICES, | | | | | | CORE | | + + + + + + + + | Specimen | + + | Blood - [place] | | lumen | + + + + + | Narrative | Performed At | + + + | Growth in Aerobic Bottle. Growth in Anaerobic Bottle. | [facility] | | | LABORAT[facility] | | | [address] | + + + + + + + + | Performing | Address | City/State/Zipcode | Phone Number | | Organization | | | | + + + + + | [facility] | [address] | [place] [address] | | | [address] | [address] | | | + + + + + PRODUCT - PLATELET PHERESIS LEUKOREDUCED (07/29/2016 12:56 PM PST) + + + + + + | Component | Value | Ref Range | Performed | Pathologist | | | | | At | Signature | + + + + + + | PRODUCT | PLATELETS PHERESIS, | | [facility] | | | DESCRIPTION | LEUKOCYTE REDUCED, | | LABORATORY | | | | IRRADIATED | | SERVICES, | | | | | | TRANSFUSION | | | | | | MEDICINE | | + + + + + + | PRODUCT | [id number] | | [facility] | | | UNIT # | | | LABORATORY | | | | | | SERVICES, | | | | | | TRANSFUSION | | | | | | MEDICINE | | + + + + + + | UNIT ABO | A | | [facility] | | | | | | LABORATORY | | | | | | SERVICES, | | | | | | TRANSFUSION | | | | | | MEDICINE | | + + + + + + | UNIT RH | POS | | [facility] | | | | | | LABORATORY | | | | | | SERVICES, | | | | | | TRANSFUSION | | | | | | MEDICINE | | + + + + + + | STATUS OF | Presumed Transfused | | [facility] | | | UNIT | | | LABORATORY | | | | | | SERVICES, | | | | | | TRANSFUSION | | | | | | MEDICINE | | + + + + + + | EXPIRATION | [id number] | | [facility] | | | DATE | | | LABORATORY | | | | | | SERVICES, | | | | | | TRANSFUSION | | | | | | MEDICINE | | + + + + + + | BLOOD TYPE | [id number] | | [facility] | | | BARCODE | | | LABORATORY | | | | | | SERVICES, | | | | | | TRANSFUSION | | | | | | MEDICINE | | + + + + + + | BLOOD | [id number] | | [facility] | | | PRODUCT | | | LABORATORY | | | CODE | | | SERVICES, | | | | | | TRANSFUSION | | | | | | MEDICINE | | + + + + + + + + | Specimen | + + | | + + + + + + + | Performing | Address | City/State/Zipcode | Phone Number | | Organization | | | | + + + + + | [facility] | [address] | [place] [address] | | | SERVICES, | [address] | | | | TRANSFUSION MEDICINE | | | | + + + + + 12 LEAD ECG (07/29/2016 4:29 AM PST) + + + + + + | Component | Value | Ref Range | Performed | Pathologist | | | | | At | Signature | + + + + + + | VENTRICULAR | 142 | bpm | [facility] | | | RATE | | | OF | | | | | | CARDIOLOGY | | + + + + + + | ATRIAL RATE | 142 | ms | [facility] | | | | | | OF | | | | | | CARDIOLOGY | | + + + + + + | P-R | 128 | ms | [facility] | | | INTERVAL | | | OF | | | | | | CARDIOLOGY | | + + + + + + | P AXIS | 66 | deg | [facility] | | | | | | OF | | | | | | CARDIOLOGY | | + + + + + + | QRS | 78 | ms | [facility] | | | DURATION | | | OF | | | | | | CARDIOLOGY | | + + + + + + | QT | 260 | ms | [facility] | | | | | | OF | | | | | | CARDIOLOGY | | + + + + + + | QTCB | 400 | ms | [facility] | | | | | | OF | | | | | | CARDIOLOGY | | + + + + + + | R AXIS | -14 | deg | [facility] | | | | | | OF | | | | | | CARDIOLOGY | | + + + + + + | T AXIS | 10 | deg | [facility] | | | | | | OF | | | | | | CARDIOLOGY | | + + + + + + | ECG | SINUS TACHYCARDIA | | [facility] | | | IMPRESSION | | | OF | | | | | | CARDIOLOGY | | + + + + + + | ECG | BORDERLINE T | | [facility] | | | IMPRESSION | ABNORMALITIES, ANTERIOR | | OF | | | | LEADS- BORDERLINE ECG - | | CARDIOLOGY | | + + + + + + | ECG | Electronically signed | | [facility] | | | IMPRESSION | by: TAMIE DE LEON | | OF | | | | 07-30-2016 08:26:02 | | CARDIOLOGY | | + + + + + + + + | Specimen | + + | | + + + + + | Narrative | Performed At | + + + | | | + + + + + + + + | Performing | Address | City/State/Zipcode | Phone Number | | Organization | | | | + + + + + | [facility] | [address] | [place], [place] | | | CARDIOLOGY | [address] | [address] | | + + + + + LACTATE (07/29/2016 3:49 AM PST) + +-------+ + + + | Component | Value | Ref Range | Performed | Pathologist | | | | | At | Signature | + +-------+ + + + | LACTATE | 1.6 | mmol/L | [facility] | | | | | | LABORATORY | | | | | | SERVICES, | | | | | | CORE | | + +-------+ + + + + + | Specimen | + + | Blood | + + + + + | Narrative | Performed At | + + + | Reference Range: Venous blood: 0.5 - 2.2 mmol/L Critical | [facility] | | >= 4.0 mmol/L Arterial blood: 0.5 - 1.6 mmol/L Critical >= 4.0 | LABORATORY | | mmol/L | [address] | + + + + + + + + | Performing | Address | City/State/Zipcode | Phone Number | | Organization | | | | + + + + + | [facility] | [address] | [place] [address] | | | [address] | [address] | | | + + + + + PRODUCT - PLATELET PHERESIS LEUKOREDUCED (07/29/2016 12:46 AM PST) + + + + + + | Component | Value | Ref Range | Performed | Pathologist | | | | | At | Signature | + + + + + + | PRODUCT | PLATELETS PHERESIS, | | [facility] | | | DESCRIPTION | LEUKOCYTE REDUCED, | | LABORATORY | | | | IRRADIATED | | SERVICES, | | | | | | TRANSFUSION | | | | | | MEDICINE | | + + + + + + | PRODUCT | [id number] | | [facility] | | | UNIT # | | | LABORATORY | | | | | | SERVICES, | | | | | | TRANSFUSION | | | | | | MEDICINE | | + + + + + + | UNIT ABO | A | | [facility] | | | | | | LABORATORY | | | | | | SERVICES, | | | | | | TRANSFUSION | | | | | | MEDICINE | | + + + + + + | UNIT RH | POS | | [facility] | | | | | | LABORATORY | | | | | | SERVICES, | | | | | | TRANSFUSION | | | | | | MEDICINE | | + + + + + + | STATUS OF | Presumed Transfused | | [facility] | | | UNIT | | | LABORATORY | | | | | | SERVICES, | | | | | | TRANSFUSION | | | | | | MEDICINE | | + + + + + + | EXPIRATION | [id number] | | [facility] | | | DATE | | | LABORATORY | | | | | | SERVICES, | | | | | | TRANSFUSION | | | | | | MEDICINE | | + + + + + + | BLOOD TYPE | [phone] | | [facility] | | | BARCODE | | | LABORATORY | | | | | | SERVICES, | | | | | | TRANSFUSION | | | | | | MEDICINE | | + + + + + + | BLOOD | [id number] | | [facility] | | | PRODUCT | | | LABORATORY | | | CODE | | | SERVICES, | | | | | | TRANSFUSION | | | | | | MEDICINE | | + + + + + + + + | Specimen | + + | | + + + + + + + | Performing | Address | City/State/Zipcode | Phone Number | | Organization | | | | + + + + + | [facility] | [address] | [place] [address] | | | SERVICES, | [address] | | | | TRANSFUSION MEDICINE | | | | + + + + + CBC AND AUTO DIFF (07/28/2016 11:27 PM PST) + + + + + + | Component | Value | Ref Range | Performed | Pathologist | | | | | At | Signature | + + + + + + | WHITE CELL | <0.10 (L) | 3.50 - 10.80 | [facility] | | | COUNT | | K/cu mm | LABORATORY | | | | | | SERVICES, | | | | | | CORE | | + + + + + + | RED CELL | 2.41 (L) | 4.00 - 5.20 | [facility] | | | COUNT | | M/cu mm | LABORATORY | | | | | | SERVICES, | | | | | | CORE | | + + + + + + | HEMOGLOBIN | 7.4 (L) | 12.0 - 16.0 | [facility] | | | | | g/dL | LABORATORY | | | | | | SERVICES, | | | | | | CORE | | + + + + + + | HEMATOCRIT | 21.2 (L) | 36.0 - 46.0 % | [facility] | | | | | | LABORATORY | | | | | | SERVICES, | | | | | | CORE | | + + + + + + | MCV | 88.0 | 80.0 - 96.0 fL | [facility] | | | | | | LABORATORY | | | | | | SERVICES, | | | | | | CORE | | + + + + + + | MCHC | 34.9 | 33.0 - 35.5 | [facility] | | | | | g/dL | LABORATORY | | | | | | SERVICES, | | | | | | CORE | | + + + + + + | RDW SD | 42.9 | 35.1 - 46.3 fL | [facility] | | | | | | LABORATORY | | | | | | SERVICES, | | | | | | CORE | | + + + + + + | PLATELET | 13 (L) | 150 - 400 K/cu | [facility] | | | COUNT | | mm | LABORATORY | | | | | | SERVICES, | | | | | | CORE | | + + + + + + | MPV | 11.4 | 9.7 - 12.3 fL | [facility] [...] + + + + | NEUTROPHIL | Comment: WBC <300; | 50.0 - 70.0 % | [facility] | | | % | differential not | | LABORATORY | | | | performed. | | SERVICES, | | | | | | CORE | | + + + + + + | LYMPHOCYTE | Comment: WBC <300; | 18.0 - 42.0 % | [facility] | | | % | differential not | | LABORATORY | | | | performed. | | SERVICES, | | | | | | CORE | | + + + + + + | MONOCYTE % | Comment: WBC <300; | 3.5 - 9.0 % | [facility] | | | | differential not | | LABORATORY | | | | performed. | | SERVICES, | | | | | | CORE | | + + + + + + | EOS % | Comment: WBC <300; | 1.0 - 3.0 % | [facility] | | | | differential not | | LABORATORY | | | | performed. | | SERVICES, | | | | | | CORE | | + + + + + + | BASO % | Comment: WBC <300; | 0.0 - 2.0 % | [facility] | | | | differential not | | LABORATORY | | | | performed. | | SERVICES, | | | | | | CORE | | + + + + + + | IG% | Comment: WBC <300; | 0.0 - 0.6 % | [facility] | | | | differential not | | LABORATORY | | | | performed. | | SERVICES, | | | | | | CORE | | + + + + + + | NEUTROPHIL | Comment: WBC <300; | 1.80 - 7.70 | [facility] | | | # | differential not | K/cu mm | LABORATORY | | | | performed. | | SERVICES, | | | | | | CORE | | + + + + + + | LYMPHOCYTE | Comment: WBC <300; | 1.00 - 4.80 | [facility] | | | # | differential not | K/cu mm | LABORATORY | | | | performed. | | SERVICES, | | | | | | CORE | | + + + + + + | MONOCYTE # | Comment: WBC <300; | 0.10 - 0.90 | [facility] | | | | differential not | K/cu mm | LABORATORY | | | | performed. | | SERVICES, | | | | | | CORE | | + + + + + + | EOS # | Comment: WBC <300; | 0.00 - 0.50 | [facility] | | | | differential not | K/cu mm | LABORATORY | | | | performed. | | SERVICES, | | | | | | CORE | | + + + + + + | BASO # | Comment: WBC <300; | 0.00 - 0.10 | [facility] | | | | differential not | K/cu mm | LABORATORY | | | | performed. | | SERVICES, | | | | | | CORE | | + + + + + + | IG# | Comment: WBC <300; | 0.00 - 0.03 | [facility] | | | | differential not | K/cu mm | LABORATORY | | | | performed. | | SERVICES, | | | | | | CORE | | + + + + + + + + | Specimen | + + | Blood | + + + + + | Narrative | Performed At | + + + | New adult WBC reference ranges effective June 30, 2016. | [facility] | | | LABORATORY | | | [address] | + + + + + + + + | Performing | Address | City/State/Zipcode | Phone Number | | Organization | | | | + + + + + | [facility] | [address] | [place] [address] | | | [address] | [address] | | | + + + + + URIC ACID, PLASMA (07/28/2016 11:27 PM PST) + +-------+ + + + | Component | Value | Ref Range | Performed | Pathologist | | | | | At | Signature | + +-------+ + + + | URIC ACID, | 2.8 | 2.5 - 6.2 mg/dL | [facility] [...] [facility] | [address] | [place] [address] | | | SERVICES, CORE | [address] | | | + + + + + PHOSPHORUS, PLASMA (07/28/2016 11:27 PM PST) + +---------+ + + + | Component | Value | Ref Range | Performed | Pathologist | | | | | At | Signature | + +---------+ + + + | PHOSPHORUS, | 1.5 (L) | 2.4 - 4.7 mg/dL | [facility] [...] | + + + + + | [facility] | [address] | [place] [address] | | | SERVICES, CORE | [address] | | | + + + + + MAGNESIUM, PLASMA (07/28/2016 11:27 PM PST) + +---------+ + + + | Component | Value | Ref Range | Performed | Pathologist | | | | | At | Signature | + +---------+ + + + | MAGNESIUM,P | 1.5 (L) | 1.8 - 2.5 mg/dL | [...] | + + + + + | [facility] | [address] | [place] [address] | | | SERVICES, CORE | [address] | | | + + + + + COMPLETE METABOLIC SET (NA,K,CL,CO2,BUN,CREAT,GLUC,CA,AST,ALT,BILI TOTAL,ALK PHOS,ALB,PROT TOTAL) (07/28/2016 11:27 PM PST) + +---------+ + + + [...] + + + | BUN, PLASMA | 4 (L) | 6 - 20 mg/dL | [facility] [...] | | | LABORATORY | | | SURINAMESE | | | SERVICES, | | | | | | CORE | | + +---------+ + + + | EGFR NON | >60 | >60 mL/min | [facility] | | | -RAOUL | | | LABORATORY | | | RICAN | | | SERVICES, | | | | | | CORE | | + +---------+ + + + | SODIUM, | 137 | 136 - 145 | [facility] | | | PLASMA | | mmol/L | LABORATORY | | | (LAB) | | | SERVICES, | | | | | | CORE | | + +---------+ + + + | POTASSIUM, | 4.0 | 3.4 - 5.0 | [facility] | | | PLASMA | | mmol/L | LABORATORY | | | (LAB) | | | SERVICES, | | | | | | CORE | | + +---------+ + + + | CHLORIDE, | 103 | 97 - 108 mmol/L | [facility] | | | PLASMA | | | LABORATORY | | | (LAB) | | | SERVICES, | | | | | | CORE | | + +---------+ + + + | TOTAL CO2, | 25 | 21 - 32 mmol/L | [facility] | | | PLASMA | | | LABORATORY | | | (LAB) | | | SERVICES, | | | | | | CORE | | + +---------+ + + + | CALCIUM, | 7.8 (L) | 8.6 - 10.2 | [facility] | | | PLASMA | | mg/dL | LABORATORY | | | (LAB) | | | SERVICES, | | | | | | CORE | | + +---------+ + + + | CALCIUM(ALB | 8.8 | 8.6 - 10.2 | [facility] | | | CORRECTED) | | mg/dL | LABORATORY | | | | | | SERVICES, | | | | | | CORE | | + +---------+ + + + | BILIRUBIN | 0.4 | 0.3 - 1.2 mg/dL | [facility] | | | TOTAL | | | LABORATORY | | | | | | SERVICES, | | | | | | CORE | | + +---------+ + + + | TOTAL | 5.3 (L) | 6.4 - 8.2 g/dL | [facility] | | | PROTEIN, | | | LABORATORY | | | PLASMA | | | SERVICES, | | | (LAB) | | | CORE | | + +---------+ + + + | ALBUMIN, | 2.7 (L) | 3.5 - 4.7 g/dL | [facility] | | | PLASMA | | | LABORATORY | | | (LAB) | | | SERVICES, | | | | | | CORE | | + +---------+ + + + | ALK PHOS | 61 | 42 - 98 U/L | [facility] | | | | | | LABORATORY | | | | | | SERVICES, | | | | | | CORE | | + +---------+ + + + | AST(SGOT) | 5 | <=41 U/L | [facility] | | | | | | LABORATORY | | | | | | SERVICES, | | | | | | CORE | | + +---------+ + + + | ALT (SGPT) | 10 | <=60 U/L | [facility] | | | | | | LABORATORY | | | | | | SERVICES, | | | | | | CORE | | + +---------+ + + + | ANION GAP | 9 | mmol/L | [facility] | | | | | | LABORATORY | | | | | | SERVICES, | | | | | | CORE | | + +---------+ + + + | ANION | 12 (H) | 4 - 11 mmol/L | [facility] [...] | + + + + + | [facility] | [address] | [place] [address] | | | ELISA, [place] | [address] | | | + + + + + LDH TOTAL, PLASMA (07/28/2016 11:27 PM PST) + +---------+ + + + | Component | Value | Ref Range | Performed | Pathologist | | | | | At | Signature | + +---------+ + + + | LD TOTAL, | 119 | <=250 U/L | [facility] | | [...] | + + + + + | [facility] | [address] | [place] [address] | | | SERVICES, [place] | [address] | | | + + + + + HAPTOGLOBIN, SERUM (07/28/2016 11:27 PM PST) + +---------+ + + + | Component | Value | Ref Range | Performed | Pathologist | | | | | At | Signature | + +---------+ + + + | HAPTOGLOBIN | 214 (H) | 30 - 200 mg/dL | [facility] - | | | | | | [facility] - | | | | | | [place] | | + +---------+ + + + + + | Specimen | + + | Blood | + + + + + + + | Performing | Address | City/State/Zipcode | Phone Number | | Organization | | | | + + + + + | [facility] - | [address] | [place] [address] | | | [place] | | | | + + + + + COMPLEMENT ACTIVITY ENZYME IMMUNOASSAY, TOTAL (07/28/2016 11:27 PM PST) + + + + + [...] | | | | | | [place], [facility] [place] [address] | | | | | | [phone] | | | | | [place] [...] [facility] | [address] | [place], [place] | | | [facility] | | [id number] | | + + + + + X-RAY CHEST 2 VIEW (07/28/2016 7:09 PM PST) + + + + + + | Component | Value | Ref Range | Performed | Pathologist | | | | | At | Signature | + + + + + + | CHEST, 2 | EXAM: CHEST 2 VIEWS | | | | | VIEWS [place] | 07/28/16 19:09:00 | | | | | [facility] | HISTORY: Evaluate for | | | | | | pneumonia. Hodgkin's | | | | | | disease with early | | | | | | relapse. Prior toBMT | | | | | | COMPARISON: Multiple | | | | | | outside studies | | | | | | FINDINGS: Right anterior | | | | | | chest wall Port-A-Cath | | | | | | and Goodman catheter | | | | | | terminate in thelower | | | | | | SVC near the cavoatrial | | | | | | junction. | | | | | | Cardiomediastinal | | | | | | silhouette | | | | | | isunremarkable. There is | | | | | | no pleural effusion, | | | | | | pneumothorax or | | | | | | pulmonary edema.The | | | | | | lungs are clear. | | | | | | IMPRESSION: Clear lungs. | | | | | | Attending Radiologists: | | | | | | SRAVANI ROMERO, | | | | | | MDAuthor: SRAVANI ROMERO, | | | | | | I personally | | | | | | reviewed the images and, | | | | | | if necessary, edited | | | | | | the report. I agreewith | | | | | | the report as now | | | | | | presented. | | | | | | Final/Electronically | | | | | | signed / SRAVANI | | | | | | NICK 07/29/2016 8:15 AM | | | | | | | | | | + + + + + + + + | Specimen | + + | | + + + +---------+ + + | Performing | Address | City/State/Zipcode | Phone Number | | Organization | | | | + +---------+ + + | [facility] DEPARTMENT OF | | | | | RADIOLOGY | | | | + +---------+ + + URINE CULTURE WORKUP (07/28/2016 5:00 PM PST) + + + + + + | Component | Value | Ref Range | Performed | Pathologist | | | | | At | Signature | + + + + + + | ORGANISM | Gram positive bacilli | | [facility] | | | | (A) | | [facility] - | | | | | | [place] | | + + + + + + + + | Specimen | + + | Urine | + + + + + | Narrative | Performed At | + + + | Culture Report: 30,000 cfu/ml Gram positive bacilli | [facility] | | Morphologically resembling Lactobacillus species < 10,000 cfu/ml | [facility] - | | Insignificant growth | [place] | + + + + + + + + | Performing | Address | City/State/Zipcode | Phone Number | | Organization | | | | + + + + + | [facility] | [address] | [place] [address] | | | [place] | | | | + + + + + CULTURE, URINE [facility] (07/28/2016 5:00 PM PST) + + + + + + | Component | Value | Ref Range | Performed | Pathologist | | | | | At | Signature | + + + + + + | URINE | See Cx Results (A) | | [facility] | | | CULTURE | | | LABORATORY | | | [facility] | | | SERVICES, | | | [...] [facility] | [address] | [place] [address] | | | SERVICES, CORE | [address] | | | + + + + + URINE, MICROSCOPIC EXAM (07/28/2016 5:00 PM PST) + +-------+ + + + | Component | Value | Ref Range | Performed | Pathologist | | | | | At | Signature | + +-------+ + + + | RED CELLS | <1 | 0 - 3 /hpf | [facility] | | | | | | LABORATORY | | | | | | SERVICES, | | | | | | CORE | | + +-------+ + + + | WHITE CELLS | <1 | 0 - 5 /hpf | [facility] | | | | | | LABORATORY | | | | | | SERVICES, | | | | | | CORE | | + +-------+ + + + | BACTERIA | None | None /hpf | [facility] | | | | | | LABORATORY | | | | | | SERVICES, | | | | | | CORE | | + +-------+ + + + | YEAST (LAB) | None | None /hpf | [facility] | | | | | | LABORATORY | | | | | | SERVICES, | | | | | | CORE | | + +-------+ + + + | SQUAMOUS | None | None /hpf | [facility] | | | EPITHELIAL | | | LABORATORY | | | | | | SERVICES, | | | | | | CORE | | + +-------+ + + + | MUCOUS | None | None /hpf | [facility] | | | | | | LABORATORY | | | | | | SERVICES, | | | | | | CORE | | + +-------+ + + + | TRICHOMONAS | None | None /hpf | [facility] | | | | | | LABORATORY | | | | | | SERVICES, | | | | | | CORE | | + +-------+ + + + | NON-SQUAMOU | None | None /hpf | [facility] | | | S EPITH | | | LABORATORY | | | | | | SERVICES, | | | | | | CORE | | + +-------+ + + + | HYALINE | 0 | 0 - 2 /lpf | [facility] | | | CASTS | | | LABORATORY | | | | | | SERVICES, | | | | | | CORE | | + +-------+ + + + | GRANULAR | 0 | 0 - 2 /lpf | [facility] | | | CASTS | | | LABORATORY | | | | | | SERVICES, | | | | | | CORE | | + +-------+ + + + | CELLULAR | 0 | <=0 /lpf | [facility] | | | CASTS | | | LABORATORY | | | | | | SERVICES, | | | | | | CORE | | + +-------+ + + + | TRIPLE P04 | None | None /hpf | [facility] | | | CRYSTALS | | | LABORATORY | | | | | | SERVICES, | | | | | | CORE | | + +-------+ + + + | CALCIUM | None | None /hpf | [facility] | | | OXALATE | | | LABORATORY | | | FREDDY | | | SERVICES, | | | | | | CORE | | + +-------+ + + + | URIC ACID | None | None /hpf | [facility] | | | [facility] | | | LABORATORY | | | | | | SERVICES, | | | | | | CORE | | + +-------+ + + + | AMORPHOUS | None | None /hpf | [facility] | | | [facility] | | | LABORATORY | | | [...] | + + + + + | [facility] | [address] | [place] [address] | | | SERVICES, CORE | [address] | | | + + + + + UATONIO ONLY (07/28/2016 5:00 PM PST) + + + + + + | Component | Value | Ref Range | Performed | Pathologist | | | | | At | Signature | + + + + + + | COLOR(UR) | Yellow | | [facility] | | | | | | LABORATORY | | | | | | SERVICES, | | | | | | CORE | | + + + + + + | APPEARANCE | Clear | | [facility] | | | | | | LABORATORY | | | | | | SERVICES, | | | | | | CORE | | + + + + + + | GLUCOSE(UR) | Negative | Negative, 50.0 | [facility] | | | | | mg/dL | LABORATORY | | | | | | SERVICES, | | | | | | CORE | | + + + + + + | PROTEIN(LAB | Negative | Negative, 30.0 | [facility] | | | ) | | mg/dL | LABORATORY | | | | | | SERVICES, | | | | | | CORE | | + + + + + + | BILIRUBIN | Negative | Negative | [facility] | | | | | | LABORATORY | | | | | | SERVICES, | | | | | | CORE | | + + + + + + | UROBILINOGE | <2.0 | <2.0 mg/dL | [facility] | | | N | | | LABORATORY | | | | | | SERVICES, | | | | | | CORE | | + + + + + + | PH(UR) | 6.0 | 5.0 - 8.0 | [facility] | | | | | | LABORATORY | | | | | | SERVICES, | | | | | | CORE | | + + + + + + | BLOOD | Small (A) | Negative | [facility] | | | | | | LABORATORY | | | | | | SERVICES, | | | | | | CORE | | + + + + + + | KETONES | Negative | Negative mg/dL | [facility] | | | | | | LABORATORY | | | | | | SERVICES, | | | | | | CORE | | + + + + + + | NITRITES | Negative | Negative | [facility] | | | | | | LABORATORY | | | | | | SERVICES, | | | | | | CORE | | + + + + + + | LEUKOCYTE | Negative | Negative | [facility] | | | ESTERASE | | | LABORATORY | | | | | | SERVICES, | | | | | | CORE | | + + + + + + | SPECIFIC | 1.009 | 1.005 - 1.030 | [facility] | | | GRAVITY | | | LABORATORY | | | [...] | + + + + + | [facility] | [address] | [place] [address] | | | SERVICES, CORE | [address] | | | + + + + + BLOOD CULTURE WORKUP (07/28/2016 4:47 PM PST) + + + + + + | Component | Value | Ref Range | Performed | Pathologist | | | | | At | Signature | + + + + + + | CULTURE | Staphylococcus aureus, | | [facility] - | | | RESULT | Methicillin Resistant | | [facility] - | | | | (A) | | [place] | | + + + + + + + + | Specimen | + + | Blood | + + + + + | Narrative | Performed At | + + + | Culture Report: Methicillin Resistant Staphylococcus aureus | [facility] - | | Presumptive identification Refer to culture collected 07/28/16 at | [facility] - | | 4:20 PM for complete identification and susceptibilities Growth in | [place] | | Aerobic bottle Growth in Anaerobic bottle | | + + + + + + + + | Performing | Address | City/State/Zipcode | Phone Number | | Organization | | | | + + + + + | [facility] - | [address] | [place] [address] | | | [place] | | | | + + + + + CULTURE, BLOOD BACTI & YEAST MARICEL (07/28/2016 4:47 PM PST) + + + + + + | Component | Value | Ref Range | Performed | Pathologist | | | | | At | Signature | + + + + + + | CULTURE | Not tested by molecular | | [facility] | | | RESULT | method, see culture | | LABORATORY | | | | report. (AA) | | SERVICES, | | | | | | CORE | | + + + + + + | GRAM STAIN | Gram positive cocci in | | [facility] | | | | clusters | | LABORATORY | | | | | | SERVICES, | | | | | | CORE | | + + + + + + + + | Specimen | + + | Blood | + + + + + | Narrative | Performed At | + + + | Growth in Aerobic Bottle. Growth in Anaerobic Bottle. | [facility] | | | LABORATORY | | | ELISA, CORE | + + + + + + + + | Performing | Address | City/State/Zipcode | Phone Number | | Organization | | | | + + + + + | [facility] | [address] | [place] [address] | | | SERVICES, CORE | [address] | | | + + + + + BLOOD CULTURE WORKUP (07/28/2016 4:20 PM PST) + + + + + + | Component | Value | Ref Range | Performed | Pathologist | | | | | At | Signature | + + + + + + | CULTURE | Staphylococcus aureus, | | [facility] - | | | RESULT | Methicillin Resistant | | [facility] - | | | | (A) | | [place] | | + + + + + + + + | Specimen | + + | Blood - Red port | | lumen | + + + + + | Narrative | Performed At | + + + | Culture Report: Methicillin Resistant Staphylococcus aureus | [facility] - | | Growth in Aerobic bottle Growth in Anaerobic bottle | [facility] - | | | [place] | + + + + + + + + | Organism | Antibiotic | Method | Susceptibility | + + + + + | Staphylococcus | Cefazolin | SUSCEPTIBILITY-ROSANNA | Resistant | | aureus, Methicillin | | | | | Resistant | | | | + + + + + | Staphylococcus | Clindamycin | SUSCEPTIBILITY-ROSANNA | Resistant | | aureus, Methicillin | | | | | Resistant | | | | + + + + + | Staphylococcus | Erythromycin | SUSCEPTIBILITY-ROSANNA | Resistant | | aureus, Methicillin | | | | | Resistant | | | | + + + + + | Staphylococcus | Oxacillin | SUSCEPTIBILITY-ROSANNA | Resistant | | aureus, Methicillin | | | | | Resistant | | | | + + + + + | Staphylococcus | Penicillin | SUSCEPTIBILITY-ROSANNA | Resistant | | aureus, Methicillin | | | | | Resistant | | | | + + + + + | Staphylococcus | Trimethoprim/Sulfa | SUSCEPTIBILITY-ROSANNA | Sensitive | | aureus, Methicillin | | | | | Resistant | | | | + + + + + | Staphylococcus | Tetracycline | SUSCEPTIBILITY-ROSANNA | Sensitive | | aureus, Methicillin | | | | | Resistant | | | | + + + + + | Staphylococcus | Vancomycin | SUSCEPTIBILITY-ROSANNA | Sensitive | | aureus, Methicillin | | | | | Resistant | | | | + + + + + + + + + + | Performing | Address | City/State/Zipcode | Phone Number | | Organization | | | | + + + + + | [facility] - | [address] | [place] [address] | | | [place] | | | | + + + + + CULTURE, BLOOD BACTI & YEAST MARICEL (07/28/2016 4:20 PM PST) + + + + + + | Component | Value | Ref Range | Performed | Pathologist | | | | | At | Signature | + + + + + + | CULTURE | Not tested by molecular | | [facility] | | | RESULT | method, see culture | | LABORATORY | | | | report. (AA) | | SERVICES, | | | | | | CORE | | + + + + + + | GRAM STAIN | Gram positive cocci in | | [facility] | | | | clusters | | LABORATORY | | | | | | SERVICES, | | | | | | CORE | | + + + + + + + + | Specimen | + + | Blood - Red port | | lumen | + + + + + | Narrative | Performed At | + + + | Growth in Aerobic Bottle. Growth in Anaerobic Bottle. | [facility] | | | LABORATORY | | | ELISA, CORE | + + + + + + + + | Performing | Address | City/State/Zipcode | Phone Number | | Organization | | | | + + + + + | [facility] | [address] | [place] [address] | | | SERVICES, CORE | [address] | | | + + + + + BLOOD CULTURE WORKUP (07/28/2016 4:15 PM PST) + + + + + + | Component | Value | Ref Range | Performed | Pathologist | | | | | At | Signature | + + + + + + | CULTURE | Streptococcus salivarius | | [facility] - | | | RESULT | group (A) | | [facility] - | | | | | | [place] | | + + + + + + | CULTURE | Staphylococcus aureus, | | [facility] - | | | RESULT | Methicillin Resistant | | [facility] - | | | | (A) | | [place] | | + + + + + + + + | Specimen | + + | Blood - Blue port | | lumen | + + + + + | Narrative | Performed At | + + + | Culture Report: Streptococcus salivarius group Methicillin | [facility] - | | Resistant Staphylococcus aureus Presumptive identification Refer to | [facility] - | | culture collected 07/28/16 at 16:20 for complete identification and | [facility] | | susceptibilities Growth in Aerobic bottle Growth in Anaerobic | | | bottle | | + + + + + + + + | Organism | Antibiotic | Method | Susceptibility | + + + + + | Streptococcus | Clindamycin | SUSCEPTIBILITY - KB | Resistant | | salivarius group | | | | + + + + + | Streptococcus | Vancomycin | SUSCEPTIBILITY - KB | Sensitive | | salivarius group | | | | + + + + + | Streptococcus | Ceftriaxone | SUSCEPTIBILITY - | Sensitive | | salivarius group | | E-TEST | | + + + + + | Streptococcus | Penicillin | SUSCEPTIBILITY - | Intermediate | | salivarius group | | E-TEST | | + + + + + + + + + + | Performing | Address | City/State/Zipcode | Phone Number | | Organization | | | | + + + + + | [facility] - | [address] | [place] [address] | | | [place] | | | | + + + + + CULTURE, BLOOD BACTI & YEAST [facility] (07/28/2016 4:15 PM PST) + + + + + + | Component | Value | Ref Range | Performed | Pathologist | | | | | At | Signature | + + + + + + | CULTURE | Staphylococcus aureus, | | [facility] | | | RESULT | Methicillin Resistant | | LABORATORY | | | | (AA) | | SERVICES, | | | | | | CORE | | + + + + + + | CULTURE | Streptococcus species | | [facility] | | | RESULT | (AA) | | LABORATORY | | | | | | SERVICES, | | | | | | CORE | | + + + + + + | GRAM STAIN | Gram positive cocci in | | [facility] | | | | clustersComment: aerobic | | LABORATORY | | | | bottle | | SERVICES, | | | | | | CORE | | + + + + + + | GRAM STAIN | Gram positive cocci in | | [facility] | | | | chainsComment: anaerobic | | LABORATORY | | | | bottle | | SERVICES, | | | | | | CORE | | + + + + + + + + | Specimen | + + | Blood - Blue port | | lumen | + + + + + | Narrative | Performed At | + + + | Growth in Aerobic Bottle. Growth in Anaerobic Bottle. Organism | [facility] | | Identified by Molecular ID, to be confirmed by culture. | LABORATORY | | | [place] [address] | + + + + + + + + | Performing | Address | City/State/Zipcode | Phone Number | | Organization | | | | + + + + + | [facility] | [address] | [place] [address] | | | [place] [address] | [address] | | | + + + + + PRODUCT - RED CELLS LEUKOREDUCED (07/28/2016 12:10 AM PST) + + + + + + | Component | Value | Ref Range | Performed | Pathologist | | | | | At | Signature | + + + + + + | PRODUCT | -1 RED BLOOD CELLS | | [facility] | | | DESCRIPTION | ADENINE-SALINE ADDED | | LABORATORY | | | | LEUKOCYT | | SERVICES, | | | | | | TRANSFUSION | | | | | | MEDICINE | | + + + + + + | PRODUCT | [id number] | | [facility] | | | UNIT # | | | LABORATORY | | | | | | SERVICES, | | | | | | TRANSFUSION | | | | | | MEDICINE | | + + + + + + | UNIT ABO | A | | [facility] | | | | | | LABORATORY | | | | | | SERVICES, | | | | | | TRANSFUSION | | | | | | MEDICINE | | + + + + + + | UNIT RH | POS | | [facility] | | | | | | LABORATORY | | | | | | SERVICES, | | | | | | TRANSFUSION | | | | | | MEDICINE | | + + + + + + | STATUS OF | Presumed Transfused | | [facility] | | | UNIT | | | LABORATORY | | | | | | SERVICES, | | | | | | TRANSFUSION | | | | | | MEDICINE | | + + + + + + | EXPIRATION | [id number] | | [facility] | | | DATE | | | LABORATORY | | | | | | SERVICES, | | | | | | TRANSFUSION | | | | | | MEDICINE | | + + + + + + | BLOOD TYPE | [phone] | | [facility] | | | BARCODE | | | LABORATORY | | | | | | SERVICES, | | | | | | TRANSFUSION | | | | | | MEDICINE | | + + + + + + | BLOOD | [id number] | | [facility] | | | PRODUCT | | | LABORATORY | | | CODE | | | SERVICES, | | | | | | TRANSFUSION | | | | | | MEDICINE | | + + + + + + + + | Specimen | + + | | + + + + + + + | Performing | Address | City/State/Zipcode | Phone Number | | Organization | | | | + + + + + | [facility] | [address] | [place] [address] | | | SERVICES, | [address] | | | | TRANSFUSION MEDICINE | | | | + + + + + CBC AND AUTO DIFF (07/27/2016 11:31 PM PST) + + + + + + | Component | Value | Ref Range | Performed | Pathologist | | | | | At | Signature | + + + + + + | WHITE CELL | <0.10 (L) | 3.50 - 10.80 | [facility] | | | COUNT | | K/cu mm | LABORATORY | | | | | | SERVICES, | | | | | | CORE | | + + + + + + | RED CELL | 2.28 (L) | 4.00 - 5.20 | [facility] | | | COUNT | | M/cu mm | LABORATORY | | | | | | SERVICES, | | | | | | CORE | | + + + + + + | HEMOGLOBIN | 7.0 (L) | 12.0 - 16.0 | [facility] | | | | | g/dL | LABORATORY | | | | | | SERVICES, | | | | | | CORE | | + + + + + + | HEMATOCRIT | 20.6 (L) | 36.0 - 46.0 % | [facility] | | | | | | LABORATORY | | | | | | SERVICES, | | | | | | CORE | | + + + + + + | MCV | 90.4 | 80.0 - 96.0 fL | [facility] | | | | | | LABORATORY | | | | | | SERVICES, | | | | | | CORE | | + + + + + + | MCHC | 34.0 | 33.0 - 35.5 | [facility] | | | | | g/dL | LABORATORY | | | | | | SERVICES, | | | | | | CORE | | + + + + + + | RDW SD | 43.9 | 35.1 - 46.3 fL | [facility] | | | | | | LABORATORY | | | | | | SERVICES, | | | | | | CORE | | + + + + + + | PLATELET | 33 (L) | 150 - 400 K/cu | [facility] | | | COUNT | | mm | LABORATORY | | | | | | SERVICES, | | | | | | CORE | | + + + + + + | MPV | 9.2 (L) | 9.7 - 12.3 fL | [facility] [...] + + + + | NEUTROPHIL | Comment: WBC <300; | 50.0 - 70.0 % | [facility] | | | % | differential not | | LABORATORY | | | | performed. | | SERVICES, | | | | | | CORE | | + + + + + + | LYMPHOCYTE | Comment: WBC <300; | 18.0 - 42.0 % | [facility] | | | % | differential not | | LABORATORY | | | | performed. | | SERVICES, | | | | | | CORE | | + + + + + + | MONOCYTE % | Comment: WBC <300; | 3.5 - 9.0 % | [facility] | | | | differential not | | LABORATORY | | | | performed. | | SERVICES, | | | | | | CORE | | + + + + + + | EOS % | Comment: WBC <300; | 1.0 - 3.0 % | [facility] | | | | differential not | | LABORATORY | | | | performed. | | SERVICES, | | | | | | CORE | | + + + + + + | BASO % | Comment: WBC <300; | 0.0 - 2.0 % | [facility] | | | | differential not | | LABORATORY | | | | performed. | | SERVICES, | | | | | | CORE | | + + + + + + | IG% | Comment: WBC <300; | 0.0 - 0.6 % | [facility] | | | | differential not | | LABORATORY | | | | performed. | | SERVICES, | | | | | | CORE | | + + + + + + | NEUTROPHIL | Comment: WBC <300; | 1.80 - 7.70 | [facility] | | | # | differential not | K/cu mm | LABORATORY | | | | performed. | | SERVICES, | | | | | | CORE | | + + + + + + | LYMPHOCYTE | Comment: WBC <300; | 1.00 - 4.80 | [facility] | | | # | differential not | K/cu mm | LABORATORY | | | | performed. | | SERVICES, | | | | | | CORE | | + + + + + + | MONOCYTE # | Comment: WBC <300; | 0.10 - 0.90 | [facility] | | | | differential not | K/cu mm | LABORATORY | | | | performed. | | SERVICES, | | | | | | CORE | | + + + + + + | EOS # | Comment: WBC <300; | 0.00 - 0.50 | [facility] | | | | differential not | K/cu mm | LABORATORY | | | | performed. | | SERVICES, | | | | | | CORE | | + + + + + + | BASO # | Comment: WBC <300; | 0.00 - 0.10 | [facility] | | | | differential not | K/cu mm | LABORATORY | | | | performed. | | SERVICES, | | | | | | CORE | | + + + + + + | IG# | Comment: WBC <300; | 0.00 - 0.03 | [facility] | | | | differential not | K/cu mm | LABORATORY | | | | performed. | | SERVICES, | | | | | | CORE | | + + + + + + + + | Specimen | + + | Blood | + + + + + | Narrative | Performed At | + + + | New adult WBC reference ranges effective June 30, 2016. | [facility] | | | LABORATORY | | | SERVICES, CORE | + + + + + + + + | Performing | Address | City/State/Zipcode | Phone Number | | Organization | | | | + + + + + | [facility] | [address] | [place] [address] | | | SERVICES, CORE | [address] | | | + + + + + PHOSPHORUS, PLASMA (07/27/2016 11:31 PM PST) + +-------+ + + + | Component | Value | Ref Range | Performed | Pathologist | | | | | At | Signature | + +-------+ + + + | PHOSPHORUS, | 2.6 | 2.4 - 4.7 mg/dL | [facility] [...] [facility] | [address] | [place] [address] | | | SERVICES, CORE | [address] | | | + + + + + MAGNESIUM, PLASMA (07/27/2016 11:31 PM PST) + +-------+ + + + | Component | Value | Ref Range | Performed | Pathologist | | | | | At | Signature | + +-------+ + + + | MAGNESIUM,P | 1.9 | 1.8 - 2.5 mg/dL | [facility] [...] [facility] | [address] | [place] [address] | | | SERVICES, CORE | [address] | | | + + + + + COMPLETE METABOLIC SET (NA,K,CL,CO2,BUN,CREAT,GLUC,CA,AST,ALT,BILI TOTAL,ALK PHOS,ALB,PROT TOTAL) (07/27/2016 11:31 PM PST) + +---------+ + + + | Component | Value | Ref Range | Performed | Pathologist | | | | | At | Signature | + +---------+ + + + | GLUCOSE, | 91 | 60 - 99 mg/dL | [facility] | | | PLASMA | | | LABORATORY | | | (LAB) | | | SERVICES, | | | | | | CORE | | + +---------+ + + + | BUN, PLASMA | 5 (L) | 6 - 20 mg/dL | [facility] | | | (LAB) | | | LABORATORY | | | | | | SERVICES, | | | | | | CORE | | + +---------+ + + + | CREATININE | 0.61 | 0.60 - 1.10 | [facility] | | | PLASMA | | mg/dL | LABORATORY | | | (LAB) | | | SERVICES, | | | | | | CORE | | + +---------+ + + + | EGFR | >60 | >60 mL/min | [facility] | | | - | | | LABORATORY | | | SURINAMESE | | | SERVICES, | | | | | | CORE | | + +---------+ + + + | EGFR NON | >60 | >60 mL/min | [facility] | | | -RAOUL | | | LABORATORY | | | RICAN | | | SERVICES, | | | | | | CORE | | + +---------+ + + + | SODIUM, | 140 | 136 - 145 | [facility] | | | PLASMA | | mmol/L | LABORATORY | | | (LAB) | | | SERVICES, | | | | | | CORE | | + +---------+ + + + | POTASSIUM, | 4.1 | 3.4 - 5.0 | [facility] | | | PLASMA | | mmol/L | LABORATORY | | | (LAB) | | | SERVICES, | | | | | | CORE | | + +---------+ + + + | CHLORIDE, | 106 | 97 - 108 mmol/L | [facility] | | | PLASMA | | | LABORATORY | | | (LAB) | | | SERVICES, | | | | | | CORE | | + +---------+ + + + | TOTAL CO2, | 26 | 21 - 32 mmol/L | [facility] | | | PLASMA | | | LABORATORY | | | (LAB) | | | SERVICES, | | | | | | CORE | | + +---------+ + + + | CALCIUM, | 7.8 (L) | 8.6 - 10.2 | [facility] | | | PLASMA | | mg/dL | LABORATORY | | | (LAB) | | | SERVICES, | | | | | | CORE | | + +---------+ + + + | CALCIUM(ALB | 8.8 | 8.6 - 10.2 | [facility] | | | CORRECTED) | | mg/dL | LABORATORY | | | | | | SERVICES, | | | | | | CORE | | + +---------+ + + + | BILIRUBIN | 0.1 (L) | 0.3 - 1.2 mg/dL | [facility] | | | TOTAL | | | LABORATORY | | | | | | SERVICES, | | | | | | CORE | | + +---------+ + + + | TOTAL | 5.1 (L) | 6.4 - 8.2 g/dL | [facility] | | | PROTEIN, | | | LABORATORY | | | PLASMA | | | SERVICES, | | | (LAB) | | | CORE | | + +---------+ + + + | ALBUMIN, | 2.8 (L) | 3.5 - 4.7 g/dL | [facility] | | | PLASMA | | | LABORATORY | | | (LAB) | | | SERVICES, | | | | | | CORE | | + +---------+ + + + | ALK PHOS | 61 | 42 - 98 U/L | [facility] | | | | | | LABORATORY | | | | | | SERVICES, | | | | | | CORE | | + +---------+ + + + | AST(SGOT) | 4 | <=41 U/L | [facility] | | | | | | LABORATORY | | | | | | SERVICES, | | | | | | CORE | | + +---------+ + + + | ALT (SGPT) | 11 | <=60 U/L | [facility] | | [...] +---------+ + + + | ANION | 11 | 4 - 11 mmol/L | [facility] [...] [facility] | [address] | [place] [address] | | | SERVICES, CORE | [address] | | | + + + + + PRODUCT - PLATELET PHERESIS LEUKOREDUCED (07/27/2016 3:24 PM PST) + + + + + + | Component | Value | Ref Range | Performed | Pathologist | | | | | At | Signature | + + + + + + | PRODUCT | PLATELETS PHERESIS, | | [facility] | | | DESCRIPTION | LEUKOCYTE REDUCED, | | LABORATORY | | | | IRRADIATED | | SERVICES, | | | | | | TRANSFUSION | | | | | | MEDICINE | | + + + + + + | PRODUCT | [id number] | | [facility] | | | UNIT # | | | LABORATORY | | | | | | SERVICES, | | | | | | TRANSFUSION | | | | | | MEDICINE | | + + + + + + | UNIT ABO | A | | [facility] | | | | | | LABORATORY | | | | | | SERVICES, | | | | | | TRANSFUSION | | | | | | MEDICINE | | + + + + + + | UNIT RH | POS | | [facility] | | | | | | LABORATORY | | | | | | SERVICES, | | | | | | TRANSFUSION | | | | | | MEDICINE | | + + + + + + | STATUS OF | Presumed Transfused | | [facility] | | | UNIT | | | LABORATORY | | | | | | SERVICES, | | | | | | TRANSFUSION | | | | | | MEDICINE | | + + + + + + | EXPIRATION | [id number] | | [facility] | | | DATE | | | LABORATORY | | | | | | SERVICES, | | | | | | TRANSFUSION | | | | | | MEDICINE | | + + + + + + | BLOOD TYPE | 6200 | | [facility] | | | BARCODE | | | LABORATORY | | | | | | SERVICES, | | | | | | TRANSFUSION | | | | | | MEDICINE | | + + + + + + | BLOOD | [id number] | | [facility] | | | PRODUCT | | | LABORATORY | | | CODE | | | SERVICES, | | | | | | TRANSFUSION | | | | | | MEDICINE | | + + + + + + + + | Specimen | + + | | + + + + + + + | Performing | Address | City/State/Zipcode | Phone Number | | Organization | | | | + + + + + | [facility] | [address] | [place] [address] | | | SERVICES, | [address] | | | | TRANSFUSION MEDICINE | | | | + + + + + PRODUCT - PLATELET PHERESIS LEUKOREDUCED (07/27/2016 12:47 AM PST) + + + + + + | Component | Value | Ref Range | Performed | Pathologist | | | | | At | Signature | + + + + + + | PRODUCT | PLATELETS PHERESIS, | | [facility] | | | DESCRIPTION | LEUKOCYTE REDUCED, | | LABORATORY | | | | IRRADIATED | | SERVICES, | | | | | | TRANSFUSION | | | | | | MEDICINE | | + + + + + + | PRODUCT | [id number] | | [facility] | | | UNIT # | | | LABORATORY | | | | | | SERVICES, | | | | | | TRANSFUSION | | | | | | MEDICINE | | + + + + + + | UNIT ABO | A | | [facility] | | | | | | LABORATORY | | | | | | SERVICES, | | | | | | TRANSFUSION | | | | | | MEDICINE | | + + + + + + | UNIT RH | POS | | [facility] | | | | | | LABORATORY | | | | | | SERVICES, | | | | | | TRANSFUSION | | | | | | MEDICINE | | + + + + + + | STATUS OF | Presumed Transfused | | [facility] | | | UNIT | | | LABORATORY | | | | | | SERVICES, | | | | | | TRANSFUSION | | | | | | MEDICINE | | + + + + + + | EXPIRATION | [id number] | | [facility] | | | DATE | | | LABORATORY | | | | | | SERVICES, | | | | | | TRANSFUSION | | | | | | MEDICINE | | + + + + + + | BLOOD TYPE | [id number] | | [facility] | | | BARCODE | | | LABORATORY | | | | | | SERVICES, | | | | | | TRANSFUSION | | | | | | MEDICINE | | + + + + + + | BLOOD | [id number] | | [facility] | | | PRODUCT | | | LABORATORY | | | CODE | | | SERVICES, | | | | | | TRANSFUSION | | | | | | MEDICINE | | + + + + + + + + | Specimen | + + | | + + + + + + + | Performing | Address | City/State/Zipcode | Phone Number | | Organization | | | | + + + + + | [facility] | [id number] | [place] [address] | | | SERVICES, | [address] | | | | TRANSFUSION MEDICINE | | | | + + + + + CBC AND AUTO DIFF (07/26/2016 11:29 PM PST) + + + + + + | Component | Value | Ref Range | Performed | Pathologist | | | | | At | Signature | + + + + + + | WHITE CELL | <0.10 (L) | 3.50 - 10.80 | [facility] | | | COUNT | | K/cu mm | LABORATORY | | | | | | SERVICES, | | | | | | CORE | | + + + + + + | RED CELL | 2.58 (L) | 4.00 - 5.20 | [facility] | | | COUNT | | M/cu mm | LABORATORY | | | | | | SERVICES, | | | | | | CORE | | + + + + + + | HEMOGLOBIN | 7.8 (L) | 12.0 - 16.0 | [facility] | | | | | g/dL | LABORATORY | | | | | | SERVICES, | | | | | | CORE | | + + + + + + | HEMATOCRIT | 23.5 (L) | 36.0 - 46.0 % | [facility] | | | | | | LABORATORY | | | | | | SERVICES, | | | | | | CORE | | + + + + + + | MCV | 91.1 | 80.0 - 96.0 fL | [facility] | | | | | | LABORATORY | | | | | | SERVICES, | | | | | | CORE | | + + + + + + | MCHC | 33.2 | 33.0 - 35.5 | [facility] | | | | | g/dL | LABORATORY | | | | | | SERVICES, | | | | | | CORE | | + + + + + + | RDW SD | 46.1 | 35.1 - 46.3 fL | [facility] | | | | | | LABORATORY | | | | | | SERVICES, | | | | | | CORE | | + + + + + + | PLATELET | 13 (L) | 150 - 400 K/cu | [facility] | | | COUNT | | mm | LABORATORY | | | | | | SERVICES, | | | | | | CORE | | + + + + + + | MPV | 12.0 | 9.7 - 12.3 fL | [facility] [...] + + + + | NEUTROPHIL | Comment: WBC <300; | 50.0 - 70.0 % | [facility] | | | % | differential not | | LABORATORY | | | | performed. | | SERVICES, | | | | | | CORE | | + + + + + + | LYMPHOCYTE | Comment: WBC <300; | 18.0 - 42.0 % | [facility] | | | % | differential not | | LABORATORY | | | | performed. | | SERVICES, | | | | | | CORE | | + + + + + + | MONOCYTE % | Comment: WBC <300; | 3.5 - 9.0 % | [facility] | | | | differential not | | LABORATORY | | | | performed. | | SERVICES, | | | | | | CORE | | + + + + + + | EOS % | Comment: WBC <300; | 1.0 - 3.0 % | [facility] | | | | differential not | | LABORATORY | | | | performed. | | SERVICES, | | | | | | CORE | | + + + + + + | BASO % | Comment: WBC <300; | 0.0 - 2.0 % | [facility] | | | | differential not | | LABORATORY | | | | performed. | | SERVICES, | | | | | | CORE | | + + + + + + | IG% | Comment: WBC <300; | 0.0 - 0.6 % | [facility] | | | | differential not | | LABORATORY | | | | performed. | | SERVICES, | | | | | | CORE | | + + + + + + | NEUTROPHIL | Comment: WBC <300; | 1.80 - 7.70 | [facility] | | | # | differential not | K/cu mm | LABORATORY | | | | performed. | | SERVICES, | | | | | | CORE | | + + + + + + | LYMPHOCYTE | Comment: WBC <300; | 1.00 - 4.80 | [facility] | | | # | differential not | K/cu mm | LABORATORY | | | | performed. | | SERVICES, | | | | | | CORE | | + + + + + + | MONOCYTE # | Comment: WBC <300; | 0.10 - 0.90 | [facility] | | | | differential not | K/cu mm | LABORATORY | | | | performed. | | SERVICES, | | | | | | CORE | | + + + + + + | EOS # | Comment: WBC <300; | 0.00 - 0.50 | [facility] | | | | differential not | K/cu mm | LABORATORY | | | | performed. | | SERVICES, | | | | | | CORE | | + + + + + + | BASO # | Comment: WBC <300; | 0.00 - 0.10 | [facility] | | | | differential not | K/cu mm | LABORATORY | | | | performed. | | SERVICES, | | | | | | CORE | | + + + + + + | IG# | Comment: WBC <300; | 0.00 - 0.03 | [facility] | | | | differential not | K/cu mm | LABORATORY | | | | performed. | | SERVICES, | | | | | | CORE | | + + + + + + + + | Specimen | + + | Blood | + + + + + | Narrative | Performed At | + + + | New adult WBC reference ranges effective June 30, 2016. | [facility] | | | LABORATORY | | | SERVICES, CORE | + + + + + + + + | Performing | Address | City/State/Zipcode | Phone Number | | Organization | | | | + + + + + | [facility] | [address] | [place] [address] | | | SERVICES, CORE | [address] | | | + + + + + PHOSPHORUS, PLASMA (07/26/2016 11:29 PM PST) + +-------+ + + + | Component | Value | Ref Range | Performed | Pathologist | | | | | At | Signature | + +-------+ + + + | PHOSPHORUS, | 2.7 | 2.4 - 4.7 mg/dL | [facility] [...] [facility] | [address] | [place] [address] | | | SERVICES, [place]OO[place] | [address] | | | + + + + + MAGNESIUM, PLASMA (07/26/2016 11:29 PM PST) + +-------+ + + + | Component | Value | Ref Range | Performed | Pathologist | | | | | At | Signature | + +-------+ + + + | MAGNESIUM,P | 1.9 | 1.8 - 2.5 mg/dL | [facility] | | | LASMA | | | LABORATORY | | | | | | ELISA, | | | | | | CORE | | + +-------+ + + + + + | Specimen | + + | Blood | + + + + + + + | Performing | Address | City/State/Zipcode | Phone Number | | Organization | | | | + + + + + | [facility] | [address] | [place] [address] | | | ELISA, SCOOBY | [address] | | | + + + + + COMPLETE METABOLIC SET (NA,K,CL,CO2,BUN,CREAT,GLUC,CA,AST,ALT,BILI TOTAL,ALK PHOS,ALB,PROT TOTAL) (07/26/2016 11:29 PM PST) + + + + + + | Component | Value | Ref Range | Performed | Pathologist | | | | | At | Signature | + + + + + + | GLUCOSE, | 98 | 60 - 99 mg/dL | [facility] | | | PLASMA | | | LABORATORY | | | (LAB) | | | SERVICES, | | | | | | CORE | | + + + + + + | BUN, PLASMA | 8 | 6 - 20 mg/dL | [facility] | | | (LAB) | | | LABORATORY | | | | | | SERVICES, | | | | | | CORE | | + + + + + + | CREATININE | 0.56 (L) | 0.60 - 1.10 | [facility] | | | PLASMA | | mg/dL | LABORATORY | | | (LAB) | | | SERVICES, | | | | | | CORE | | + + + + + + | EGFR | >60 | >60 mL/min | [facility] | | | - | | | LABORATORY | | | SURINAMESE | | | SERVICES, | | | | | | CORE | | + + + + + + | EGFR NON | >60 | >60 mL/min | [facility] | | | -RAOUL | | | LABORATORY | | | RICAN | | | SERVICES, | | | | | | CORE | | + + + + + + | SODIUM, | 141 | 136 - 145 | [facility] | | | PLASMA | | mmol/L | LABORATORY | | | (LAB) | | | SERVICES, | | | | | | CORE | | + + + + + + | POTASSIUM, | 3.8 | 3.4 - 5.0 | [facility] | | | PLASMA | | mmol/L | LABORATORY | | | (LAB) | | | SERVICES, | | | | | | CORE | | + + + + + + | CHLORIDE, | 108 | 97 - 108 mmol/L | [facility] | | | PLASMA | | | LABORATORY | | | (LAB) | | | SERVICES, | | | | | | CORE | | + + + + + + | TOTAL CO2, | 23 | 21 - 32 mmol/L | [facility] | | | PLASMA | | | LABORATORY | | | (LAB) | | | SERVICES, | | | | | | CORE | | + + + + + + | CALCIUM, | 7.9 (L) | 8.6 - 10.2 | [facility] | | | PLASMA | | mg/dL | LABORATORY | | | (LAB) | | | SERVICES, | | | | | | CORE | | + + + + + + | CALCIUM(ALB | 8.8 | 8.6 - 10.2 | [facility] | | | CORRECTED) | | mg/dL | LABORATORY | | | | | | SERVICES, | | | | | | CORE | | + + + + + + | BILIRUBIN | <0.1 (L) | 0.3 - 1.2 mg/dL | [facility] | | | TOTAL | | | LABORATORY | | | | | | SERVICES, | | | | | | CORE | | + + + + + + | TOTAL | 5.2 (L) | 6.4 - 8.2 g/dL | [facility] | | | PROTEIN, | | | LABORATORY | | | PLASMA | | | SERVICES, | | | (LAB) | | | CORE | | + + + + + + | ALBUMIN, | 2.9 (L) | 3.5 - 4.7 g/dL | [facility] | | | PLASMA | | | LABORATORY | | | (LAB) | | | SERVICES, | | | | | | CORE | | + + + + + + | ALK PHOS | 63 | 42 - 98 U/L | [facility] | | | | | | LABORATORY | | | | | | SERVICES, | | | | | | CORE | | + + + + + + | AST(SGOT) | 9 | <=41 U/L | [facility] | | | | | | LABORATORY | | | | | | SERVICES, | | | | | | CORE | | + + + + + + | ALT (SGPT) | 11 | <=60 U/L | [facility] | | | | | | LABORATORY | | | | | | SERVICES, | | | | | | CORE | | + + + + + + | ANION GAP | 10 | mmol/L | [facility] | | | | | | LABORATORY | | | | | | SERVICES, | | | | | | CORE | | + + + + + + | ANION | 12 (H) | 4 - 11 mmol/L | [facility] | | | GAP(ALB | | | LABORATORY | | | CORRECTED) | | | SERVICES, | | | | | | CORE | | + + + + + + | POTASSIUM | No Hemo | | [facility] | | | CMNT | | | LABORATORY | | | | | | SERVICES, | | | | | | CORE | | + + + + + + | BILI T CMNT | No Hemo | | [facility] | | | | | | LABORATORY | | | | | | SERVICES, | | | | | | CORE | | + + + + + + | AST CMNT | [...] | + + + + + | [facility] | [address] | [place] [address] | | | [address] | [address] | | | + + + + + CBC AND AUTO DIFF (07/25/2016 11:17 PM PST) + + + + + + | Component | Value | Ref Range | Performed | Pathologist | | | | | At | Signature | + + + + + + | WHITE CELL | <0.10 (L) | 3.50 - 10.80 | [facility] | | | COUNT | | K/cu mm | LABORATORY | | | | | | SERVICES, | | | | | | CORE | | + + + + + + | RED CELL | 2.46 (L) | 4.00 - 5.20 | [facility] | | | COUNT | | M/cu mm | LABORATORY | | | | | | SERVICES, | | | | | | CORE | | + + + + + + | HEMOGLOBIN | 7.6 (L) | 12.0 - 16.0 | [facility] | | | | | g/dL | LABORATORY | | | | | | SERVICES, | | | | | | CORE | | + + + + + + | HEMATOCRIT | 22.3 (L) | 36.0 - 46.0 % | [facility] | | | | | | LABORATORY | | | | | | SERVICES, | | | | | | CORE | | + + + + + + | MCV | 90.7 | 80.0 - 96.0 fL | [facility] | | | | | | LABORATORY | | | | | | SERVICES, | | | | | | CORE | | + + + + + + | MCHC | 34.1 | 33.0 - 35.5 | [facility] | | | | | g/dL | LABORATORY | | | | | | SERVICES, | | | | | | CORE | | + + + + + + | RDW SD | 47.7 (H) | 35.1 - 46.3 fL | [facility] | | | | | | LABORATORY | | | | | | SERVICES, | | | | | | CORE | | + + + + + + | PLATELET | 29 (L) | 150 - 400 K/cu | [facility] | | | COUNT | | mm | LABORATORY | | | | | | SERVICES, | | | | | | CORE | | + + + + + + | MPV | 10.8 | 9.7 - 12.3 fL | [facility] [...] + + + + | NEUTROPHIL | Comment: WBC <300; | 50.0 - 70.0 % | [facility] | | | % | differential not | | LABORATORY | | | | performed. | | SERVICES, | | | | | | CORE | | + + + + + + | LYMPHOCYTE | Comment: WBC <300; | 18.0 - 42.0 % | [facility] | | | % | differential not | | LABORATORY | | | | performed. | | SERVICES, | | | | | | CORE | | + + + + + + | MONOCYTE % | Comment: WBC <300; | 3.5 - 9.0 % | [facility] | | | | differential not | | LABORATORY | | | | performed. | | SERVICES, | | | | | | CORE | | + + + + + + | EOS % | Comment: WBC <300; | 1.0 - 3.0 % | [facility] | | | | differential not | | LABORATORY | | | | performed. | | SERVICES, | | | | | | CORE | | + + + + + + | BASO % | Comment: WBC <300; | 0.0 - 2.0 % | [facility] | | | | differential not | | LABORATORY | | | | performed. | | SERVICES, | | | | | | CORE | | + + + + + + | IG% | Comment: WBC <300; | 0.0 - 0.6 % | [facility] | | | | differential not | | LABORATORY | | | | performed. | | SERVICES, | | | | | | CORE | | + + + + + + | NEUTROPHIL | Comment: WBC <300; | 1.80 - 7.70 | [facility] | | | # | differential not | K/cu mm | LABORATORY | | | | performed. | | SERVICES, | | | | | | CORE | | + + + + + + | LYMPHOCYTE | Comment: WBC <300; | 1.00 - 4.80 | [facility] | | | # | differential not | K/cu mm | LABORATORY | | | | performed. | | SERVICES, | | | | | | CORE | | + + + + + + | MONOCYTE # | Comment: WBC <300; | 0.10 - 0.90 | [facility] | | | | differential not | K/cu mm | LABORATORY | | | | performed. | | SERVICES, | | | | | | CORE | | + + + + + + | EOS # | Comment: WBC <300; | 0.00 - 0.50 | [facility] | | | | differential not | K/cu mm | LABORATORY | | | | performed. | | SERVICES, | | | | | | CORE | | + + + + + + | BASO # | Comment: WBC <300; | 0.00 - 0.10 | [facility] | | | | differential not | K/cu mm | LABORATORY | | | | performed. | | SERVICES, | | | | | | CORE | | + + + + + + | IG# | Comment: WBC <300; | 0.00 - 0.03 | [facility] | | | | differential not | K/cu mm | LABORATORY | | | | performed. | | SERVICES, | | | | | | CORE | | + + + + + + + + | Specimen | + + | Blood | + + + + + | Narrative | Performed At | + + + | New adult WBC reference ranges effective June 30, 2016. | [facility] | | | LABORATORY | | | SERVICES, CORE | + + + + + + + + | Performing | Address | City/State/Zipcode | Phone Number | | Organization | | | | + + + + + | [facility] | [address] | [place] [address] | | | SERVICES, CORE | [address] | | | + + + + + URIC ACID, PLASMA (07/25/2016 11:17 PM PST) + +---------+ + + + | Component | Value | Ref Range | Performed | Pathologist | | | | | At | Signature | + +---------+ + + + | URIC ACID, | 2.3 (L) | 2.5 - 6.2 mg/dL | [facility] [...] + | [facility] | [address] | [place] [address] | | | SERVICES, CORE | [address] | | | + + + + + PHOSPHORUS, PLASMA (07/25/2016 11:17 PM PST) + +---------+ + + + | Component | Value | Ref Range | Performed | Pathologist | | | | | At | Signature | + +---------+ + + + | PHOSPHORUS, | 1.8 (L) | 2.4 - 4.7 mg/dL | [facility] [...] | + + + + + | [facility] | [address] | [place] [address] | | | SERVICES, CORE | [address] | | | + + + + + MAGNESIUM, PLASMA (07/25/2016 11:17 PM PST) + +-------+ + + + | Component | Value | Ref Range | Performed | Pathologist | | | | | At | Signature | + +-------+ + + + | MAGNESIUM,P | 2.1 | 1.8 - 2.5 mg/dL | [facility] | | | LASMA | | | LABORATORY | | | | | | ELISA, | | | | | | CORE | | + +-------+ + + + + + | Specimen | + + | Blood | + + + + + + + | Performing | Address | City/State/Zipcode | Phone Number | | Organization | | | | + + + + + | [facility] | [address] | [place] [address] | | | SERVICES, CORE | [address] | | | + + + + + COMPLETE METABOLIC SET (NA,K,CL,CO2,BUN,CREAT,GLUC,CA,AST,ALT,BILI TOTAL,ALK PHOS,ALB,PROT TOTAL) (07/25/2016 11:17 PM PST) + +---------+ + + + | Component | Value | Ref Range | Performed | Pathologist | | | | | At | Signature | + +---------+ + + + | GLUCOSE, | 98 | 60 - 99 mg/dL | [facility] | | | PLASMA | | | LABORATORY | | | (LAB) | | | SERVICES, | | | | | | CORE | | + +---------+ + + + | BUN, PLASMA | 7 | 6 - 20 mg/dL | [facility] | | | (LAB) | | | LABORATORY | | | | | | SERVICES, | | | | | | CORE | | + +---------+ + + + | CREATININE | 0.60 | 0.60 - 1.10 | [facility] | | | PLASMA | | mg/dL | LABORATORY | | | (LAB) | | | SERVICES, | | | | | | CORE | | + +---------+ + + + | EGFR | >60 | >60 mL/min | [facility] | | | - | | | LABORATORY | | | SURINAMESE | | | SERVICES, | | | | | | CORE | | + +---------+ + + + | EGFR NON | >60 | >60 mL/min | [facility] | | | -RAOUL | | | LABORATORY | | | RICAN | | | SERVICES, | | | | | | CORE | | + +---------+ + + + | SODIUM, | 144 | 136 - 145 | [facility] | | | PLASMA | | mmol/L | LABORATORY | | | (LAB) | | | SERVICES, | | | | | | CORE | | + +---------+ + + + | POTASSIUM, | 3.8 | 3.4 - 5.0 | [facility] | | | PLASMA | | mmol/L | LABORATORY | | | (LAB) | | | SERVICES, | | | | | | CORE | | + +---------+ + + + | CHLORIDE, | 110 (H) | 97 - 108 mmol/L | [facility] | | | PLASMA | | | LABORATORY | | | (LAB) | | | SERVICES, | | | | | | CORE | | + +---------+ + + + | TOTAL CO2, | 25 | 21 - 32 mmol/L | [facility] | | | PLASMA | | | LABORATORY | | | (LAB) | | | SERVICES, | | | | | | CORE | | + +---------+ + + + | CALCIUM, | 7.9 (L) | 8.6 - 10.2 | [facility] | | | PLASMA | | mg/dL | LABORATORY | | | (LAB) | | | SERVICES, | | | | | | CORE | | + +---------+ + + + | CALCIUM(ALB | 8.7 | 8.6 - 10.2 | [facility] | | | CORRECTED) | | mg/dL | LABORATORY | | | | | | SERVICES, | | | | | | CORE | | + +---------+ + + + | BILIRUBIN | 0.1 (L) | 0.3 - 1.2 mg/dL | [facility] | | | TOTAL | | | LABORATORY | | | | | | SERVICES, | | | | | | CORE | | + +---------+ + + + | TOTAL | 5.0 (L) | 6.4 - 8.2 g/dL | [facility] | | | PROTEIN, | | | LABORATORY | | | PLASMA | | | SERVICES, | | | (LAB) | | | CORE | | + +---------+ + + + | ALBUMIN, | 3.0 (L) | 3.5 - 4.7 g/dL | [facility] | | | PLASMA | | | LABORATORY | | | (LAB) | | | SERVICES, | | | | | | CORE | | + +---------+ + + + | ALK PHOS | 59 | 42 - 98 U/L | [facility] | | | | | | LABORATORY | | | | | | SERVICES, | | | | | | CORE | | + +---------+ + + + | AST(SGOT) | 7 | <=41 U/L | [facility] | | | | | | LABORATORY | | | | | | SERVICES, | | | | | | CORE | | + +---------+ + + + | ALT (SGPT) | 11 | <=60 U/L | [facility] | | | | | | LABORATORY | | | | | | SERVICES, | | | | | | CORE | | + +---------+ + + + | ANION GAP | 9 | mmol/L | [facility] | | | | | | LABORATORY | | | | | | SERVICES, | | | | | | CORE | | + +---------+ + + + | ANION | 11 | 4 - 11 mmol/L | [facility] [...] [facility] | [address] | [place] [address] | | | SERVICES, CORE | [address] | | | + + + + + LDH TOTAL, PLASMA (07/25/2016 11:17 PM PST) + +---------+ + + + | Component | Value | Ref Range | Performed | Pathologist | | | | | At | Signature | + +---------+ + + + | LD TOTAL, | 148 | <=250 U/L | [facility] | | | PLASMA | | | LABORATORY | | | | | | SERVICES, | | | | | | CORE | | + +---------+ + + + | MARIELLE CMNT | No Jeffo | | [facility] | | | | [...] | + + + + + | [facility] | [address] | [place] [address] | | | [address] | [address] | | | + + + + + HAPTOGLOBIN, SERUM (07/25/2016 11:17 PM PST) + +-------+ + + + | Component | Value | Ref Range | Performed | Pathologist | | | | | At | Signature | + +-------+ + + + | HAPTOGLOBIN | 105 | 30 - 200 mg/dL | [facility] [...] + | [facility] - | [address] | [place] [address] | | | [place] | | | | + + + + + COMPLEMENT ACTIVITY ENZYME IMMUNOASSAY, TOTAL (07/25/2016 11:17 PM PST) + + + + + [...] [place] | | | | | | [facility], [facility] [place] [address] | | | | | | [phone] | | | | | [place] munson, | | | | | | , Ok. Director | | | | + + + + + + + + | Specimen | + + | Blood | + + + + + + + | Performing | Address | City/State/Zipcode | Phone Number | | Organization | | | | + + + + + | [facility] | [address] | [place], [place] | | | [facility] | | [id number] | | + + + + + INR (07/25/2016 11:17 PM PST) + +-------+ + + + | Component | Value | Ref Range | Performed | Pathologist | | | | | At | Signature | + +-------+ + + + | INR | 0.96 | 0.90 - 1.20 INR | [facility] [...] | + + + + + | [facility] | [address] | [place] [address] | | | [address] | [address] | | | + + + + + PRODUCT - RED CELLS LEUKOREDUCED (07/25/2016 1:15 AM PST) + + + + + + | Component | Value | Ref Range | Performed | Pathologist | | | | | At | Signature | + + + + + + | PRODUCT | -1 RED BLOOD CELLS | | [facility] | | | DESCRIPTION | ADENINE-SALINE ADDED | | LABORATORY | | | | LEUKOCYT | | SERVICES, | | | | | | TRANSFUSION | | | | | | MEDICINE | | + + + + + + | PRODUCT | [id number] | | [facility] | | | UNIT # | | | LABORATORY | | | | | | SERVICES, | | | | | | TRANSFUSION | | | | | | MEDICINE | | + + + + + + | UNIT ABO | A | | [facility] | | | | | | LABORATORY | | | | | | SERVICES, | | | | | | TRANSFUSION | | | | | | MEDICINE | | + + + + + + | UNIT RH | POS | | [facility] | | | | | | LABORATORY | | | | | | SERVICES, | | | | | | TRANSFUSION | | | | | | MEDICINE | | + + + + + + | STATUS OF | Presumed Transfused | | [facility] | | | UNIT | | | LABORATORY | | | | | | SERVICES, | | | | | | TRANSFUSION | | | | | | MEDICINE | | + + + + + + | EXPIRATION | [id number] | | [facility] | | | DATE | | | LABORATORY | | | | | | SERVICES, | | | | | | TRANSFUSION | | | | | | MEDICINE | | + + + + + + | BLOOD TYPE | [id number] | | [facility] | | | BARCODE | | | LABORATORY | | | | | | SERVICES, | | | | | | TRANSFUSION | | | | | | MEDICINE | | + + + + + + | BLOOD | [id number] | | [facility] | | | PRODUCT | | | LABORATORY | | | CODE | | | SERVICES, | | | | | | TRANSFUSION | | | | | | MEDICINE | | + + + + + + + + | Specimen | + + | | + + + + + + + | Performing | Address | City/State/Zipcode | Phone Number | | Organization | | | | + + + + + | [facility] | [address] | [place] [address] | | | SERVICES, | [address] | | | | TRANSFUSION MEDICINE | | | | + + + + + ANTIBODY SCREEN (07/25/2016 1:15 AM PST) + + + + + + | Component | Value | Ref Range | Performed | Pathologist | | | | | At | Signature | + + + + + + | Antibody | Negative | | [facility] | | | Screen | | | LABORATORY | | | | | | SERVICES, | | | | | | TRANSFUSION | | | | | | MEDICINE | | + + + + + + + + | Specimen | + + | Blood | + + + + + + + | Performing | Address | City/State/Zipcode | Phone Number | | Organization | | | | + + + + + | [facility] | [address] | [place] [address] | | | SERVICES, | [address] | | | | TRANSFUSION MEDICINE | | | | + + + + + ABO & RH TYPE (07/25/2016 1:15 AM PST) + + + + + + | Component | Value | Ref Range | Performed | Pathologist | | | | | At | Signature | + + + + + + | ABO Group | A | | [facility] | | | | | | LABORATORY | | | | | | SERVICES, | | | | | | TRANSFUSION | | | | | | MEDICINE | | + + + + + + | Rh Type | Positive | | [facility] | | | | | | LABORATORY | | | | | | SERVICES, | | | | | | TRANSFUSION | | | | | | MEDICINE | | + + + + + + + + | Specimen | + + | Blood | + + + + + + + | Performing | Address | City/State/Zipcode | Phone Number | | Organization | | | | + + + + + | [facility] | [address] | [place] [address] | | | SERVICES, | [address] | | | | TRANSFUSION MEDICINE | | | | + + + + + CBC AND AUTO DIFF (07/24/2016 11:40 PM PST) + + + + + + | Component | Value | Ref Range | Performed | Pathologist | | | | | At | Signature | + + + + + + | WHITE CELL | 0.13 (L) | 3.50 - 10.80 | [facility] | | | COUNT | | K/cu mm | LABORATORY | | | | | | SERVICES, | | | | | | CORE | | + + + + + + | RED CELL | 2.18 (L) | 4.00 - 5.20 | [facility] | | | COUNT | | M/cu mm | LABORATORY | | | | | | SERVICES, | | | | | | CORE | | + + + + + + | HEMOGLOBIN | 6.6 (L) | 12.0 - 16.0 | [facility] | | | | | g/dL | LABORATORY | | | | | | SERVICES, | | | | | | CORE | | + + + + + + | HEMATOCRIT | 20.2 (L) | 36.0 - 46.0 % | [facility] | | | | | | LABORATORY | | | | | | SERVICES, | | | | | | CORE | | + + + + + + | MCV | 92.7 | 80.0 - 96.0 fL | [facility] | | | | | | LABORATORY | | | | | | SERVICES, | | | | | | CORE | | + + + + + + | MCHC | 32.7 | 33.0 - 35.5 | [facility] | | | | | g/dL | LABORATORY | | | | | | SERVICES, | | | | | | CORE | | + + + + + + | RDW SD | 50.4 (H) | 35.1 - 46.3 fL | [facility] | | | | | | LABORATORY | | | | | | SERVICES, | | | | | | CORE | | + + + + + + | PLATELET | 40 (L) | 150 - 400 K/cu | [facility] | | | COUNT | | mm | LABORATORY | | | | | | SERVICES, | | | | | | CORE | | + + + + + + | MPV | 10.7 | 9.7 - 12.3 fL | [facility] [...] + + + + | NEUTROPHIL | Comment: WBC <300; | 50.0 - 70.0 % | [facility] | | | % | differential not | | LABORATORY | | | | performed. | | SERVICES, | | | | | | CORE | | + + + + + + | LYMPHOCYTE | Comment: WBC <300; | 18.0 - 42.0 % | [facility] | | | % | differential not | | LABORATORY | | | | performed. | | SERVICES, | | | | | | CORE | | + + + + + + | MONOCYTE % | Comment: WBC <300; | 3.5 - 9.0 % | [facility] | | | | differential not | | LABORATORY | | | | performed. | | SERVICES, | | | | | | CORE | | + + + + + + | EOS % | Comment: WBC <300; | 1.0 - 3.0 % | [facility] | | | | differential not | | LABORATORY | | | | performed. | | SERVICES, | | | | | | CORE | | + + + + + + | BASO % | Comment: WBC <300; | 0.0 - 2.0 % | [facility] | | | | differential not | | LABORATORY | | | | performed. | | SERVICES, | | | | | | CORE | | + + + + + + | IG% | Comment: WBC <300; | 0.0 - 0.6 % | [facility] | | | | differential not | | LABORATORY | | | | performed. | | SERVICES, | | | | | | CORE | | + + + + + + | NEUTROPHIL | Comment: WBC <300; | 1.80 - 7.70 | [facility] | | | # | differential not | K/cu mm | LABORATORY | | | | performed. | | SERVICES, | | | | | | CORE | | + + + + + + | LYMPHOCYTE | Comment: WBC <300; | 1.00 - 4.80 | [facility] | | | # | differential not | K/cu mm | LABORATORY | | | | performed. | | SERVICES, | | | | | | CORE | | + + + + + + | MONOCYTE # | Comment: WBC <300; | 0.10 - 0.90 | [facility] | | | | differential not | K/cu mm | LABORATORY | | | | performed. | | SERVICES, | | | | | | CORE | | + + + + + + | EOS # | Comment: WBC <300; | 0.00 - 0.50 | [facility] | | | | differential not | K/cu mm | LABORATORY | | | | performed. | | SERVICES, | | | | | | CORE | | + + + + + + | BASO # | Comment: WBC <300; | 0.00 - 0.10 | [facility] | | | | differential not | K/cu mm | LABORATORY | | | | performed. | | SERVICES, | | | | | | CORE | | + + + + + + | IG# | Comment: WBC <300; | 0.00 - 0.03 | [facility] | | | | differential not | K/cu mm | LABORATORY | | | | performed. | | SERVICES, | | | | [...] | + + + + + | [facility] | [address] | [place] [address] | | | SERVICES, CORE | [address] | | | + + + + + PHOSPHORUS, PLASMA (07/24/2016 11:40 PM PST) + +-------+ + + + | Component | Value | Ref Range | Performed | Pathologist | | | | | At | Signature | + +-------+ + + + | PHOSPHORUS, | 2.4 | 2.4 - 4.7 mg/dL | [facility] [...] + | [facility] | [address] | [place] [address] | | | SERVICES, CORE | [address] | | | + + + + + MAGNESIUM, PLASMA (07/24/2016 11:40 PM PST) + +-------+ + + + | Component | Value | Ref Range | Performed | Pathologist | | | | | At | Signature | + +-------+ + + + | MAGNESIUM,P | 1.9 | 1.8 - 2.5 mg/dL | [facility] [...] [facility] | [address] | [place] [address] | | | SERVICES, CORE | [address] | | | + + + + + COMPLETE METABOLIC SET (NA,K,CL,CO2,BUN,CREAT,GLUC,CA,AST,ALT,BILI TOTAL,ALK PHOS,ALB,PROT TOTAL) (07/24/2016 11:40 PM PST) + + + + + + | Component | Value | Ref Range | Performed | Pathologist | | | | | At | Signature | + + + + + + | GLUCOSE, | 92 | 60 - 99 mg/dL | [facility] | | | PLASMA | | | LABORATORY | | | (LAB) | | | SERVICES, | | | | | | CORE | | + + + + + + | BUN, PLASMA | 8 | 6 - 20 mg/dL | [facility] | | | (LAB) | | | LABORATORY | | | | | | SERVICES, | | | | | | CORE | | + + + + + + | CREATININE | 0.55 (L) | 0.60 - 1.10 | [facility] | | | PLASMA | | mg/dL | LABORATORY | | | (LAB) | | | SERVICES, | | | | | | CORE | | + + + + + + | EGFR | >60 | >60 mL/min | [facility] | | | - | | | LABORATORY | | | SURINAMESE | | | SERVICES, | | | | | | CORE | | + + + + + + | EGFR NON | >60 | >60 mL/min | [facility] | | | -RAOUL | | | LABORATORY | | | RICAN | | | SERVICES, | | | | | | CORE | | + + + + + + | SODIUM, | 141 | 136 - 145 | [facility] | | | PLASMA | | mmol/L | LABORATORY | | | (LAB) | | | SERVICES, | | | | | | CORE | | + + + + + + | POTASSIUM, | 3.5 | 3.4 - 5.0 | [facility] | | | PLASMA | | mmol/L | LABORATORY | | | (LAB) | | | SERVICES, | | | | | | CORE | | + + + + + + | CHLORIDE, | 110 (H) | 97 - 108 mmol/L | [facility] | | | PLASMA | | | LABORATORY | | | (LAB) | | | SERVICES, | | | | | | CORE | | + + + + + + | TOTAL CO2, | 24 | 21 - 32 mmol/L | [facility] | | | PLASMA | | | LABORATORY | | | (LAB) | | | SERVICES, | | | | | | CORE | | + + + + + + | CALCIUM, | 7.5 (L) | 8.6 - 10.2 | [facility] | | | PLASMA | | mg/dL | LABORATORY | | | (LAB) | | | SERVICES, | | | | | | CORE | | + + + + + + | CALCIUM(ALB | 8.5 (L) | 8.6 - 10.2 | [facility] | | | CORRECTED) | | mg/dL | LABORATORY | | | | | | SERVICES, | | | | | | CORE | | + + + + + + | BILIRUBIN | <0.1 (L) | 0.3 - 1.2 mg/dL | [facility] | | | TOTAL | | | LABORATORY | | | | | | SERVICES, | | | | | | CORE | | + + + + + + | TOTAL | 4.6 (L) | 6.4 - 8.2 g/dL | [facility] | | | PROTEIN, | | | LABORATORY | | | PLASMA | | | SERVICES, | | | (LAB) | | | CORE | | + + + + + + | ALBUMIN, | 2.7 (L) | 3.5 - 4.7 g/dL | [facility] | | | PLASMA | | | LABORATORY | | | (LAB) | | | SERVICES, | | | | | | CORE | | + + + + + + | ALK PHOS | 54 | 42 - 98 U/L | [facility] | | | | | | LABORATORY | | | | | | SERVICES, | | | | | | CORE | | + + + + + + | AST(SGOT) | 6 | <=41 U/L | [facility] | | | | | | LABORATORY | | | | | | SERVICES, | | | | | | CORE | | + + + + + + | ALT (SGPT) | 11 | <=60 U/L | [facility] | | | | | | LABORATORY | | | | | | SERVICES, | | | | | | CORE | | + + + + + + | ANION GAP | 7 | mmol/L | [facility] | | | | | | LABORATORY | | | | | | SERVICES, | | | | | | CORE | | + + + + + + | ANION | 10 | 4 - 11 mmol/L | [facility] | | | GAP(ALB | | | LABORATORY | | | CORRECTED) | | | SERVICES, | | | | | | CORE | | + + + + + + | POTASSIUM | No Hemo | | [facility] | | | CMNT | | | LABORATORY | | | | | | SERVICES, | | | | | | CORE | | + + + + + + | BILI T CMNT | No Hemo | | [facility] | | | | | | LABORATORY | | | | | | SERVICES, | | | | | | CORE | | + + + + + + | AST CMNT | [...] [facility] | [address] | [place] [address] | | | SERVICES, CORE | [address] | | | + + + + + CBC AND AUTO DIFF (07/24/2016 1:45 AM PST) + + + + + + | Component | Value | Ref Range | Performed | Pathologist | | | | | At | Signature | + + + + + + | WHITE CELL | 0.28 (L) | 3.50 - 10.80 | [facility] | | | COUNT | | K/cu mm | LABORATORY | | | | | | SERVICES, | | | | | | CORE | | + + + + + + | RED CELL | 2.43 (L) | 4.00 - 5.20 | [facility] | | | COUNT | | M/cu mm | LABORATORY | | | | | | SERVICES, | | | | | | CORE | | + + + + + + | HEMOGLOBIN | 7.4 (L) | 12.0 - 16.0 | [facility] | | | | | g/dL | LABORATORY | | | | | | SERVICES, | | | | | | CORE | | + + + + + + | HEMATOCRIT | 22.3 (L) | 36.0 - 46.0 % | [facility] | | | | | | LABORATORY | | | | | | SERVICES, | | | | | | CORE | | + + + + + + | MCV | 91.8 | 80.0 - 96.0 fL | [facility] | | | | | | LABORATORY | | | | | | SERVICES, | | | | | | CORE | | + + + + + + | MCHC | 33.2 | 33.0 - 35.5 | [facility] | | | | | g/dL | LABORATORY | | | | | | SERVICES, | | | | | | CORE | | + + + + + + | RDW SD | 50.2 (H) | 35.1 - 46.3 fL | [facility] | | | | | | LABORATORY | | | | | | SERVICES, | | | | | | CORE | | + + + + + + | PLATELET | 61 (L) | 150 - 400 K/cu | [facility] | | | COUNT | | mm | LABORATORY | | | | | | SERVICES, | | | | | | CORE | | + + + + + + | MPV | 9.6 (L) | 9.7 - 12.3 fL | [facility] [...] + + + + | NEUTROPHIL | Comment: WBC <300; | 50.0 - 70.0 % | [facility] | | | % | differential not | | LABORATORY | | | | performed. | | SERVICES, | | | | | | CORE | | + + + + + + | LYMPHOCYTE | Comment: WBC <300; | 18.0 - 42.0 % | [facility] | | | % | differential not | | LABORATORY | | | | performed. | | SERVICES, | | | | | | CORE | | + + + + + + | MONOCYTE % | Comment: WBC <300; | 3.5 - 9.0 % | [facility] | | | | differential not | | LABORATORY | | | | performed. | | SERVICES, | | | | | | CORE | | + + + + + + | EOS % | Comment: WBC <300; | 1.0 - 3.0 % | [facility] | | | | differential not | | LABORATORY | | | | performed. | | SERVICES, | | | | | | CORE | | + + + + + + | BASO % | Comment: WBC <300; | 0.0 - 2.0 % | [facility] | | | | differential not | | LABORATORY | | | | performed. | | SERVICES, | | | | | | CORE | | + + + + + + | IG% | Comment: WBC <300; | 0.0 - 0.6 % | [facility] | | | | differential not | | LABORATORY | | | | performed. | | SERVICES, | | | | | | CORE | | + + + + + + | NEUTROPHIL | Comment: WBC <300; | 1.80 - 7.70 | [facility] | | | # | differential not | K/cu mm | LABORATORY | | | | performed. | | SERVICES, | | | | | | CORE | | + + + + + + | LYMPHOCYTE | Comment: WBC <300; | 1.00 - 4.80 | [facility] | | | # | differential not | K/cu mm | LABORATORY | | | | performed. | | SERVICES, | | | | | | CORE | | + + + + + + | MONOCYTE # | Comment: WBC <300; | 0.10 - 0.90 | [facility] | | | | differential not | K/cu mm | LABORATORY | | | | performed. | | SERVICES, | | | | | | CORE | | + + + + + + | EOS # | Comment: WBC <300; | 0.00 - 0.50 | [facility] | | | | differential not | K/cu mm | LABORATORY | | | | performed. | | SERVICES, | | | | | | CORE | | + + + + + + | BASO # | Comment: WBC <300; | 0.00 - 0.10 | [facility] | | | | differential not | K/cu mm | LABORATORY | | | | performed. | | SERVICES, | | | | | | CORE | | + + + + + + | IG# | Comment: WBC <300; | 0.00 - 0.03 | [facility] | | | | differential not | K/cu mm | LABORATORY | | | | performed. | | SERVICES, | | | | [...] | + + + + + | [facility] | [address] | [place] [address] | | | SERVICES, CORE | [address] | | | + + + + + PHOSPHORUS, PLASMA (07/24/2016 1:45 AM PST) + +-------+ + + + | Component | Value | Ref Range | Performed | Pathologist | | | | | At | Signature | + +-------+ + + + | PHOSPHORUS, | 2.8 | 2.4 - 4.7 mg/dL | [facility] | | | PLASMA | | | [...] [facility] | [address] | [place] [address] | | | SERVICES, CORE | [address] | | | + + + + + MAGNESIUM, PLASMA (07/24/2016 1:45 AM PST) + +-------+ + + + | Component | Value | Ref Range | Performed | Pathologist | | | | | At | Signature | + +-------+ + + + | MAGNESIUM,P | 2.0 | 1.8 - 2.5 mg/dL | [facility] | | | LASMA | | | LABORATORY | | | | | | ELISA, | | | | | | CORE | | + +-------+ + + + + + | Specimen | + + | Blood | + + + + + + + | Performing | Address | City/State/Zipcode | Phone Number | | Organization | | | | + + + + + | [facility] | [address] | [place] [address] | | | SERVICES, [place] | [address] | | | + + + + + COMPLETE METABOLIC SET (NA,K,CL,CO2,BUN,CREAT,GLUC,CA,AST,ALT,BILI TOTAL,ALK PHOS,ALB,PROT TOTAL) (07/24/2016 1:45 AM PST) + +---------+ + + + | Component | Value | Ref Range | Performed | Pathologist | | | | | At | Signature | + +---------+ + + + | GLUCOSE, | 99 | 60 - 99 mg/dL | [facility] | | | PLASMA | | | LABORATORY | | | (LAB) | | | SERVICES, | | | | | | CORE | | + +---------+ + + + | BUN, PLASMA | 16 | 6 - 20 mg/dL | [facility] | | | (LAB) | | | LABORATORY | | | | | | SERVICES, | | | | | | CORE | | + +---------+ + + + | CREATININE | 0.60 | 0.60 - 1.10 | [facility] | | | PLASMA | | mg/dL | LABORATORY | | | (LAB) | | | SERVICES, | | | | | | CORE | | + +---------+ + + + | EGFR | >60 | >60 mL/min | [facility] | | | - | | | LABORATORY | | | SURINAMESE | | | SERVICES, | | | | | | CORE | | + +---------+ + + + | EGFR NON | >60 | >60 mL/min | [facility] | | | -RAOUL | | | LABORATORY | | | RICAN | | | SERVICES, | | | | | | CORE | | + +---------+ + + + | SODIUM, | 142 | 136 - 145 | [facility] | | | PLASMA | | mmol/L | LABORATORY | | | (LAB) | | | SERVICES, | | | | | | CORE | | + +---------+ + + + | POTASSIUM, | 3.5 | 3.4 - 5.0 | [facility] | | | PLASMA | | mmol/L | LABORATORY | | | (LAB) | | | SERVICES, | | | | | | CORE | | + +---------+ + + + | CHLORIDE, | 110 (H) | 97 - 108 mmol/L | [facility] | | | PLASMA | | | LABORATORY | | | (LAB) | | | SERVICES, | | | | | | CORE | | + +---------+ + + + | TOTAL CO2, | 24 | 21 - 32 mmol/L | [facility] | | | PLASMA | | | LABORATORY | | | (LAB) | | | SERVICES, | | | | | | CORE | | + +---------+ + + + | CALCIUM, | 7.5 (L) | 8.6 - 10.2 | [facility] [...] +---------+ + + + | BILIRUBIN | 0.2 (L) | 0.3 - 1.2 mg/dL | [facility] | | | TOTAL | | | LABORATORY | | | | | | SERVICES, | | | | | | CORE | | + +---------+ + + + | TOTAL | 4.7 (L) | 6.4 - 8.2 g/dL | [facility] | | | PROTEIN, | | | LABORATORY | | | PLASMA | | | SERVICES, | | | (LAB) | | | CORE | | + +---------+ + + + | ALBUMIN, | 2.8 (L) | 3.5 - 4.7 g/dL | [facility] | | | PLASMA | | | LABORATORY | | | (LAB) | | | SERVICES, | | | | | | CORE | | + +---------+ + + + | ALK PHOS | 61 | 42 - 98 U/L | [facility] | | | | | | LABORATORY | | | | | | SERVICES, | | | | | | CORE | | + +---------+ + + + | AST(SGOT) | 5 | <=41 U/L | [facility] | | | | | | LABORATORY | | | | | | SERVICES, | | | | | | CORE | | + +---------+ + + + | ALT (SGPT) | 10 | <=60 U/L | [facility] | | [...] +---------+ + + + | ANION | 11 | 4 - 11 mmol/L | [facility] [...] | + +---------+ + + + | MADI TANNERNT | Rosana Aguilaro | | [facility] | | | | [...] | + + + + + | [facility] | [address] | [place] [address] | | | SERVICES, CORE | [address] | | | + + + + + C. DIFFICILE TOXIN (07/23/2016 5:15 PM PST) + + + + + + | Component | Value | Ref Range | Performed | Pathologist | | | | | At | Signature | + + + + + + | C.DIFFICILE | Negative | Negative | [facility] | | | TOXIN | | | LABORATORY | | | | | | SERVICES, | | | | | | CORE | | + + + + + + + + | Specimen | + + | Stool | + + + + + + + | Performing | Address | City/State/Zipcode | Phone Number | | Organization | | | | + + + + + | [facility] | [address] | [place] [address] | | | SERVICES, CORE | [address] | | | + + + + + CULTURE, BLOOD BACTI & YEAST [facility] (07/23/2016 4:20 PM PST) + + + + + [...] [facility] | [address] | [place] [address] | | | SERVICES, CORE | [address] | | | + + + + + CULTURE, BLOOD BACTI & YEAST [facility] (07/23/2016 4:20 PM PST) + + + + + [...] | + + + + + | [facility] | [address] | [place] [address] | | | SERVICES, CORE | [address] | | | + + + + + MANUAL DIFFERENTIAL (07/22/2016 11:35 PM PST) + + + + + + | Component | Value | Ref Range | Performed | Pathologist | | | | | At | Signature | + + + + + + | NEUTROPHIL | 83.2 (H) | 50.0 - 70.0 % | [facility] | | | % | | | LABORATORY | | | | | | SERVICES, | | | | | | CORE | | + + + + + + | LYMPHOCYTE | 16.8 (L) | 18.0 - 42.0 % | [facility] | | | % | | | LABORATORY | | | | | | SERVICES, | | | | | | CORE | | + + + + + + | MONOCYTE % | 0.0 (L) | 3.5 - 9.0 % | [facility] | | | | | | LABORATORY | | | | | | SERVICES, | | | | | | CORE | | + + + + + + | EOSINOPHIL | 0.0 (L) | 1.0 - 3.0 % | [facility] | | | % | | | LABORATORY | | | | | | SERVICES, | | | | | | CORE | | + + + + + + | BASOPHIL % | 0.0 | 0.0 - 2.0 % | [facility] | | | | | | LABORATORY | | | | | | SERVICES, | | | | | | CORE | | + + + + + + | IG% | 0.0Comment: Immature | 0.0 - 0.6 % | [facility] | | | | Granulocytes (IG) | | LABORATORY | | | | include metamyelocytes, | | SERVICES, | | | | myelocytes and | | CORE | | | | promyelocytes. Bands are | | | | | | not included in the IG | | | | | | count. Bands are | | | | | | included in the | | | | | | neutrophil count. | | | | + + + + + + | NEUTROPHIL | 0.68 (L) | 1.80 - 7.70 | [facility] | | | # | | K/cu mm | LABORATORY | | | | | | SERVICES, | | | | | | CORE | | + + + + + + | LYMPHOCYTE | 0.14 (L) | 1.00 - 4.80 | [facility] | | | # | | K/cu mm | LABORATORY | | | | | | SERVICES, | | | | | | CORE | | + + + + + + | MONOCYTE # | 0.00 (L) | 0.10 - 0.90 | [facility] | | | | | K/cu mm | LABORATORY | | | | | | SERVICES, | | | | | | CORE | | + + + + + + | EOSINOPHIL | 0.00 | 0.00 - 0.50 | [facility] | | | # | | K/cu mm | LABORATORY | | | | | | SERVICES, | | | | | | CORE | | + + + + + + | BASOPHIL # | 0.00 | 0.00 - 0.10 | [facility] | | | | | K/cu mm | LABORATORY | | | | | | SERVICES, | | | | | | CORE | | + + + + + + | IG# | 0.00 | 0.00 - 0.03 | [facility] | | | | | K/cu mm | LABORATORY | | | | | | SERVICES, | | | | | | CORE | | + + + + + + + + | Specimen | + + | Blood | + + + + + | Narrative | Performed At | + + + | Immature Granulocytes (IG) include metamyelocytes, myelocytes | [facility] | | and promyelocytes. Bands are not included in the IG count. Bands | LABORATORY | | are included in the neutrophil count. | SERVICES, CORE | + + + + + + + + | Performing | Address | City/State/Zipcode | Phone Number | | Organization | | | | + + + + + | [facility] | [address] | [place] [address] | | | SERVICES, CORE | [address] | | | + + + + + CBC AND AUTO DIFF (07/22/2016 11:35 PM PST) + + + + + + | Component | Value | Ref Range | Performed | Pathologist | | | | | At | Signature | + + + + + + | WHITE CELL | 0.82 (L) | 3.50 - 10.80 | [facility] | | | COUNT | | K/cu mm | LABORATORY | | | | | | SERVICES, | | | | | | CORE | | + + + + + + | RED CELL | 2.53 (L) | 4.00 - 5.20 | [facility] | | | COUNT | | M/cu mm | LABORATORY | | | | | | SERVICES, | | | | | | CORE | | + + + + + + | HEMOGLOBIN | 7.7 (L) | 12.0 - 16.0 | [facility] | | | | | g/dL | LABORATORY | | | | | | SERVICES, | | | | | | CORE | | + + + + + + | HEMATOCRIT | 23.2 (L) | 36.0 - 46.0 % | [facility] | | | | | | LABORATORY | | | | | | SERVICES, | | | | | | CORE | | + + + + + + | MCV | 91.7 | 80.0 - 96.0 fL | [facility] | | | | | | LABORATORY | | | | | | SERVICES, | | | | | | CORE | | + + + + + + | MCHC | 33.2 | 33.0 - 35.5 | [facility] | | | | | g/dL | LABORATORY | | | | | | SERVICES, | | | | | | CORE | | + + + + + + | RDW SD | 51.8 (H) | 35.1 - 46.3 fL | [facility] | | | | | | LABORATORY | | | | | | SERVICES, | | | | | | CORE | | + + + + + + | PLATELET | 90 (L) | 150 - 400 K/cu | [facility] | | | COUNT | | mm | LABORATORY | | | | | | SERVICES, | | | | | | CORE | | + + + + + + | MPV | 10.3 | 9.7 - 12.3 fL | [facility] [...] reference ranges effective June 30, 2016. | [facility] | | | LABORATORY | | | [address] | + + + + + + + + | Performing | Address | City/State/Zipcode | Phone Number | | Organization | | | | + + + + + | [facility] | [address] | [place] [address] | | | [address] | [address] | | | + + + + + PHOSPHORUS, PLASMA (07/22/2016 11:35 PM PST) + +-------+ + + + | Component | Value | Ref Range | Performed | Pathologist | | | | | At | Signature | + +-------+ + + + | PHOSPHORUS, | 3.4 | 2.4 - 4.7 mg/dL | [facility] [...] | + + + + + | [facility] | [address] | [place] [address] | | | SERVICES, CORE | [address] | | | + + + + + MAGNESIUM, PLASMA (07/22/2016 11:35 PM PST) + +-------+ + + + | Component | Value | Ref Range | Performed | Pathologist | | | | | At | Signature | + +-------+ + + + | MAGNESIUM,P | 2.2 | 1.8 - 2.5 mg/dL | [facility] | | | TORREYMA | | | LABORATORY | | | | | | ELISA, | | | | | | CORE | | + +-------+ + + + + + | Specimen | + + | Blood | + + + + + + + | Performing | Address | City/State/Zipcode | Phone Number | | Organization | | | | + + + + + | [facility] | [address] | [place] [address] | | | SERVICES, CORE | [address] | | | + + + + + COMPLETE METABOLIC SET (NA,K,CL,CO2,BUN,CREAT,GLUC,CA,AST,ALT,BILI TOTAL,ALK PHOS,ALB,PROT TOTAL) (07/22/2016 11:35 PM PST) + +---------+ + + + | Component | Value | Ref Range | Performed | Pathologist | | | | | At | Signature | + +---------+ + + + | GLUCOSE, | 87 | 60 - 99 mg/dL | [facility] | | | PLASMA | | | LABORATORY | | | (LAB) | | | SERVICES, | | | | | | CORE | | + +---------+ + + + | BUN, PLASMA | 19 | 6 - 20 mg/dL | [facility] [...] | | | LABORATORY | | | SURINAMESE | | | SERVICES, | | | | | | CORE | | + +---------+ + + + | EGFR NON | >60 | >60 mL/min | [facility] | | | -RAOUL | | | LABORATORY | | | RICAN | | | SERVICES, | | | | | | CORE | | + +---------+ + + + | SODIUM, | 142 | 136 - 145 | [facility] | | | PLASMA | | mmol/L | LABORATORY | | | (LAB) | | | SERVICES, | | | | | | CORE | | + +---------+ + + + | POTASSIUM, | 3.7 | 3.4 - 5.0 | [facility] | [...] + | TOTAL CO2, | 26 | 21 - 32 mmol/L | [facility] | | | PLASMA | | | LABORATORY | | | (LAB) | | | SERVICES, | | | | | | CORE | | + +---------+ + + + | CALCIUM, | 7.6 (L) | 8.6 - 10.2 | [facility] | | | PLASMA | | mg/dL | LABORATORY | | | (LAB) | | | SERVICES, | | | | | | CORE | | + +---------+ + + + | CALCIUM(ALB | 8.4 (L) | 8.6 - 10.2 | [facility] | | | CORRECTED) | | mg/dL | LABORATORY | | | | | | SERVICES, | | | | | | CORE | | + +---------+ + + + | BILIRUBIN | 0.2 (L) | 0.3 - 1.2 mg/dL | [facility] | | | TOTAL | | | LABORATORY | | | | | | SERVICES, | | | | | | CORE | | + +---------+ + + + | TOTAL | 5.1 (L) | 6.4 - 8.2 g/dL | [facility] | | | PROTEIN, | | | LABORATORY | | | PLASMA | | | SERVICES, | | | (LAB) | | | CORE | | + +---------+ + + + | ALBUMIN, | 3.0 (L) | 3.5 - 4.7 g/dL | [facility] | | | PLASMA | | | LABORATORY | | | (LAB) | | | SERVICES, | | | | | | CORE | | + +---------+ + + + | ALK PHOS | 69 | 42 - 98 U/L | [facility] | | | | | | LABORATORY | | | | | | SERVICES, | | | | | | CORE | | + +---------+ + + + | AST(SGOT) | 11 | <=41 U/L | [facility] | | | | | | LABORATORY | | | | | | SERVICES, | | | | | | CORE | | + +---------+ + + + | ALT (SGPT) | 14 | <=60 U/L | [facility] | | [...] +---------+ + + + | ANION | 10 | 4 - 11 mmol/L | [facility] [...] | + + + + + | [facility] | [address] | [place] [address] | | | SERVICES, CORE | [address] | | | + + + + + MCKENZIE (XENIA) BY PCR (07/22/2016 4:48 PM PST) + + + + + + | Component | Value | Ref Range | Performed | Pathologist | | | | | At | Signature | + + + + + + | VRE BY PCR | Negative for van A gene | Negative for | [facility] | | | | | van A gene | LABORATORY | | | | | | SERVICES, | | | | | | CORE | | + + + + + + + + | Specimen | + + | Swab | + + + + + + + | Performing | Address | City/State/Zipcode | Phone Number | | Organization | | | | + + + + + | [facility] | [address] | [place] [address] | | | [address] | [address] | | | + + + + + CBC AND AUTO DIFF (07/21/2016 11:14 PM PST) + + + + + + | Component | Value | Ref Range | Performed | Pathologist | | | | | At | Signature | + + + + + + | WHITE CELL | 7.90 | 3.50 - 10.80 | [facility] | | | COUNT | | K/cu mm | LABORATORY | | | | | | SERVICES, | | | | | | CORE | | + + + + + + | RED CELL | 2.54 (L) | 4.00 - 5.20 | [facility] | | | COUNT | | M/cu mm | LABORATORY | | | | | | SERVICES, | | | | | | CORE | | + + + + + + | HEMOGLOBIN | 7.7 (L) | 12.0 - 16.0 | [facility] | | | | | g/dL | LABORATORY | | | | | | SERVICES, | | | | | | CORE | | + + + + + + | HEMATOCRIT | 22.7 (L) | 36.0 - 46.0 % | [facility] | | | | | | LABORATORY | | | | | | SERVICES, | | | | | | CORE | | + + + + + + | MCV | 89.4 | 80.0 - 96.0 fL | [facility] [...] + + + | RDW SD | 49.8 (H) | 35.1 - 46.3 fL | [facility] | | | | | | LABORATORY | | | | | | SERVICES, | | | | | | CORE | | + + + + + + | PLATELET | 125 (L) | 150 - 400 K/cu | [facility] | | | COUNT | | mm | LABORATORY | | | | | | SERVICES, | | | | | | CORE | | + + + + + + | MPV | 9.8 | 9.7 - 12.3 fL | [facility] [...] + + + + | NEUTROPHIL | 98.3 (H) | 50.0 - 70.0 % | [facility] | | | % | | | LABORATORY | | | | | | SERVICES, | | | | | | CORE | | + + + + + + | LYMPHOCYTE | 0.8 (L) | 18.0 - 42.0 % | [facility] | | | % | | | LABORATORY | | | | | | SERVICES, | | | | | | CORE | | + + + + + + | MONOCYTE % | 0.0 (L) | 3.5 - 9.0 % | [facility] | | | | | | LABORATORY | | | | | | SERVICES, | | | | | | CORE | | + + + + + + | EOS % | 0.0 (L) | 1.0 - 3.0 % | [facility] | | | | | | LABORATORY | | | | | | SERVICES, | | | | | | CORE | | + + + + + + | BASO % | 0.1 | 0.0 - 2.0 % | [facility] | | | | | | LABORATORY | | | | | | SERVICES, | | | | | | CORE | | + + + + + + | IG% | 0.8 (H)Comment: Immature | 0.0 - 0.6 % [...] + + + + | NEUTROPHIL | 7.77 (H) | 1.80 - 7.70 | [facility] | | | # | | K/cu mm | LABORATORY | | | | | | SERVICES, | | | | | | CORE | | + + + + + + | LYMPHOCYTE | 0.06 (L) | 1.00 - 4.80 | [facility] | | | # | | K/cu mm | LABORATORY | | | | | | SERVICES, | | | | | | CORE | | + + + + + + | MONOCYTE # | 0.00 (L) | 0.10 - 0.90 | [facility] | | | | | K/cu mm | LABORATORY | | | | | | SERVICES, | | | | | | CORE | | + + + + + + | EOS # | 0.00 | 0.00 - 0.50 | [facility] | [...] + + + + | IG# | 0.06 (H) | 0.00 - 0.03 | [facility] | [...] in the IG count. Bands are | [address] | | included in the neutrophil count. | | + + + + + + + + | Performing | Address | City/State/Zipcode | Phone Number | | Organization | | | | + + + + + | [facility] | [address] | [place] [address] | | | SERVICES, CORE | [address] | | | + + + + + URIC ACID, PLASMA (07/21/2016 11:14 PM PST) + +---------+ + + + | Component | Value | Ref Range | Performed | Pathologist | | | | | At | Signature | + +---------+ + + + | URIC ACID, | 2.1 (L) | 2.5 - 6.2 mg/dL | [facility] [...] [facility] | [address] | [place] [address] | | | SERVICES, CORE | [address] | | | + + + + + PHOSPHORUS, PLASMA (07/21/2016 11:14 PM PST) + +-------+ + + + | Component | Value | Ref Range | Performed | Pathologist | | | | | At | Signature | + +-------+ + + + | PHOSPHORUS, | 3.2 | 2.4 - 4.7 mg/dL | [facility] | | | PLASMA | | | LABORATORY | | | (LAB) | | | ELISA, | | | | | | CORE | | + +-------+ + + + + + | Specimen | + + | Blood | + + + + + + + | Performing | Address | City/State/Zipcode | Phone Number | | Organization | | | | + + + + + | [facility] | [address] | [place] [address] | | | SERVICES, CORE | [address] | | | + + + + + MAGNESIUM, PLASMA (07/21/2016 11:14 PM PST) + +-------+ + + + | Component | Value | Ref Range | Performed | Pathologist | | | | | At | Signature | + +-------+ + + + | MAGNESIUM,P | 2.5 | 1.8 - 2.5 mg/dL | [facility] | | | LASMA | | | [...] | + + + + + | [facility] | [address] | [place] [address] | | | SERVICES, CORE | [address] | | | + + + + + COMPLETE METABOLIC SET (NA,K,CL,CO2,BUN,CREAT,GLUC,CA,AST,ALT,BILI TOTAL,ALK PHOS,ALB,PROT TOTAL) (07/21/2016 11:14 PM PST) + + + + + + | Component | Value | Ref Range | Performed | Pathologist | | | | | At | Signature | + + + + + + | GLUCOSE, | 104 (H) | 60 - 99 mg/dL | [facility] | | | PLASMA | | | LABORATORY | | | (LAB) | | | SERVICES, | | | | | | CORE | | + + + + + + | BUN, PLASMA | 15 | 6 - 20 mg/dL | [facility] | | | (LAB) | | | LABORATORY | | | | | | SERVICES, | | | | | | CORE | | + + + + + + | CREATININE | 0.56 (L) | 0.60 - 1.10 | [facility] | | | PLASMA | | mg/dL | LABORATORY | | | (LAB) | | | SERVICES, | | | | | | CORE | | + + + + + + | EGFR | >60 | >60 mL/min | [facility] | | | - | | | LABORATORY | | | SURINAMESE | | | SERVICES, | | | | | | CORE | | + + + + + + | EGFR NON | >60 | >60 mL/min | [facility] | | | -RAOUL | | | LABORATORY | | | RICAN | | | SERVICES, | | | | | | CORE | | + + + + + + | SODIUM, | 141 | 136 - 145 | [facility] | | | PLASMA | | mmol/L | LABORATORY | | | (LAB) | | | SERVICES, | | | | | | CORE | | + + + + + + | POTASSIUM, | 3.7 | 3.4 - 5.0 | [facility] | | | PLASMA | | mmol/L | LABORATORY | | | (LAB) | | | SERVICES, | | | | | | CORE | | + + + + + + | CHLORIDE, | 107 | 97 - 108 mmol/L | [facility] | | | PLASMA | | | LABORATORY | | | (LAB) | | | SERVICES, | | | | | | CORE | | + + + + + + | TOTAL CO2, | 24 | 21 - 32 mmol/L | [facility] | | | PLASMA | | | LABORATORY | | | (LAB) | | | SERVICES, | | | | | | CORE | | + + + + + + | CALCIUM, | 7.4 (L) | 8.6 - 10.2 | [facility] | | | PLASMA | | mg/dL | LABORATORY | | | (LAB) | | | SERVICES, | | | | | | CORE | | + + + + + + | CALCIUM(ALB | 8.2 (L) | 8.6 - 10.2 | [facility] | | | CORRECTED) | | mg/dL | LABORATORY | | | | | | SERVICES, | | | | | | CORE | | + + + + + + | BILIRUBIN | 0.2 (L) | 0.3 - 1.2 mg/dL | [facility] | | | TOTAL | | | LABORATORY | | | | | | SERVICES, | | | | | | CORE | | + + + + + + | TOTAL | 5.2 (L) | 6.4 - 8.2 g/dL | [facility] | | | PROTEIN, | | | LABORATORY | | | PLASMA | | | SERVICES, | | | (LAB) | | | CORE | | + + + + + + | ALBUMIN, | 3.0 (L) | 3.5 - 4.7 g/dL | [facility] | | | PLASMA | | | LABORATORY | | | (LAB) | | | SERVICES, | | | | | | CORE | | + + + + + + | ALK PHOS | 63 | 42 - 98 U/L | [facility] | | | | | | LABORATORY | | | | | | SERVICES, | | | | | | CORE | | + + + + + + | AST(SGOT) | 25 | <=41 U/L | [facility] | | | | | | LABORATORY | | | | | | SERVICES, | | | | | | CORE | | + + + + + + | ALT (SGPT) | 15 | <=60 U/L | [facility] | | | | | | LABORATORY | | | | | | SERVICES, | | | | | | CORE | | + + + + + + | ANION GAP | 10 | mmol/L | [facility] | | | | | | LABORATORY | | | | | | SERVICES, | | | | | | CORE | | + + + + + + | ANION | 12 (H) | 4 - 11 mmol/L | [facility] | | | GAP(ALB | | | LABORATORY | | | CORRECTED) | | | SERVICES, | | | | | | CORE | | + + + + + + | POTASSIUM | No Hemo | | [facility] | | | CMNT | | | LABORATORY | | | | | | SERVICES, | | | | | | CORE | | + + + + + + | BILI T CMNT | No Hemo | | [facility] | | | | | | LABORATORY | | | | | | SERVICES, | | | | | | CORE | | + + + + + + | AST CMNT | [...] | Interpretive Information: <60 mL/min/1.73 sq | ELISA, CORE | | m Chronic Kidney Disease [...] | + + + + + | [facility] | [address] | [place] [address] | | | [address] | [address] | | | + + + + + LDH TOTAL, PLASMA (07/21/2016 11:14 PM PST) + +---------+ + + + | Component | Value | Ref Range | Performed | Pathologist | | | | | At | Signature | + +---------+ + + + | LD TOTAL, | 544 (H) | <=250 U/L | [facility] | [...] | + + + + + | [facility] | [address] | [place] [address] | | | SERVICES, CORE | [address] | | | + + + + + COMPLEMENT ACTIVITY ENZYME IMMUNOASSAY, TOTAL (07/21/2016 11:14 PM PST) + + + + + + | Component | Value | Ref Range | Performed | Pathologist | | | | | At | Signature | + + + + + + | COMPLEMENT | 3 (L)Comment: If low | 60 - 144 [...] | | | | | | [place], [facility] [place] [address] | | | | | | [phone] | | | | | | [facility], [place], | | | | | | , [...] [facility] | [address] | [place], [place] | | | [facility] | | [address] | | + + + + + HAPTOGLOBIN, SERUM (07/21/2016 11:05 PM PST) + +-------+ + + + | Component | Value | Ref Range | Performed | Pathologist | | | | | At | Signature | + +-------+ + + + | HAPTOGLOBIN | 96 | 30 - 200 mg/dL | [facility] [...] + | [facility] | [address] | [place] [address] | | | [place] | | | | + + + + + STEM CELL TRANSPLANT, AUTOLOGOUS (07/21/2016 5:29 PM PST) + + + | Narrative | Performed At | + + + | Emery Chilel MD 07/21/2016 5:29 PM Hematopoietic | | | Progenitor Cell Infusion Record Name: Meggan Otero MRN: | | | [id number] Indication for Procedure: Reconstitution of hematopoiesis | | | Transplant Physician: Constantin Link MD Person Infusing Product: | | | Emery Chilel MD PhD Recipient and unit identity were confirmed | | | prior to initiation of the infusion: Yes I verify I have reviewed | | | the documentation from the Cell Processing Lab which included ABO | | | typing and antibody screen, ABO compatibility, and | | | processing: Yes Bag identification was crosschecked per [facility] | | | policy: Yes Product number was confirmed: Yes Product | | | integrity was inspected: Yes The product characteristics, cell | | | dose and volume are described in the Cell Processing Lab | | | documentation Pre - Procedure Vital Signs: BP 140/76 | Pulse 79 | | | | Temp 36.7 C (98.1 F) | RR 16 | Ht 1.755 m (5' 9.09") | Wt 100.1 | | | kg (220 lb 10.9 oz) | SpO2 100% | BMI 32.5 kg/(m^2) Pain Score: | | | Please refer to Vitals Flowsheet (88) for vitals recorded during | | | Infusion: Donor Source: auto HPC, apheresis Date: 07/21/2016 Time: | | | 12:45 320 ml infused. 7.37x10^6 cells Patient was premedicated | | | with Tylenol, Benadryl and Hydrocortisone. Patient received an | | | infusion of the above product intravenously through a central | | | catheter. Vital signs were monitored throughout the | | | procedure. Observation* Allergic Reaction: No Rigors / | | | Chills: No Fever: No Cardiac Arrhythmia: No Other Cardiac: No | | | Blood Pressure Change: No Hypoxia: No Cough: No Thrombosis / pulm. | | | Embolism: No Other Pulmonary: No Nausea: Yes: Toxicity Grade: 2 - | | | Oral intake significantly decreased Vomiting: No Pain: No Other( | | | Hoca): No *If grade 3 or 4 toxicity occurs, please call the HCP Lab | | | [phone] to initiate the [facility] Adverse Reaction Report process. | | | Mild nausea and flushing during Emery Chilel MD | | + + + PROCEDURE NOTE (07/21/2016 12:51 PM PST) + + + | Narrative | Performed At | + + + | Allyson Waite 07/21/2016 12:51 PM Cell Processing Name: | | | Meggan Otero Donation Identification Number: | | | [id number] ABO/Rh Recipient:A pos Antibody Screen | | | Recipient:negative Processing:Product was thawed and washed prior | | | to infusion Bag Identification Cross Checked: Yes Donation | | | Identification Number Confirmed:Yes Product Integrity Inspected:Yes | | | Product Characteristics: Volume: 320 mL CD34 dose | | | (x10^6/Kg):7.37 Allyson WAITE | | + + + CULTURE, BLOOD BACTI & YEAST [facility] (07/21/2016 10:05 AM PST) + + + + [...] [facility] | [address] | [place] [address] | | | SERVICES, CORE | [address] | | | + + + + + PRODUCT CELL COUNT (07/21/2016 10:05 AM PST) + + + + + + | Component | Value | Ref Range | Performed | Pathologist | | | | | At | Signature | + + + + + + | PRODUCT | [id number] | | [facility] | | | IDENTIFIER | | | LABORATORY | | | | | | SERVICES, | | | | | | CORE | | + + + + + + | PRODUCT WBC | 1.6 | K/cu mm | [facility] | | | | | | LABORATORY | | | | | | SERVICES, | | | | | | CORE | | + + + + + + | PRODUCT RBC | 0.24 | M/cu mm | [facility] | | | | | | LABORATORY | | | | | | SERVICES, | | | | | | CORE | | + + + + + + | PRODUCT HGB | 0.6 | g/dL | [facility] | | | | | | LABORATORY | | | | | | SERVICES, | | | | | | CORE | | + + + + + + | PRODUCT HCT | 2.4 | % | [facility] | | | | | | LABORATORY | | | | | | SERVICES, | | | | | | CORE | | + + + + + + | PRODUCT PLT | 897 | K/cu mm | [facility] | | [...] + | [facility] | [address] | [place] [address] | | | ELISA, [place]OO[place] | [address] | | | + + + + + HPC WASH (07/21/2016 10:04 AM PST) + + | Specimen | + + | Apheresis - PBSC | + + + + + + + | Performing | Address | City/State/Zipcode | Phone Number | | Organization | | | | + + + + + | [facility] | [address] | [place], [place] | | | PROCESSING LAB | [address] | [address] | | + + + + + AUTO HPCA THAW (07/21/2016 10:04 AM PST) + + + + + + | Component | Value | Ref Range | Performed | Pathologist | | | | | At | Signature | + + + + + + | PRODUCT | Auto HPC, Apheresis | | [facility] | | | TYPE | [id number] | | CELL | | | | | | PROCESSING | | | | | | LAB | | + + + + + + | TRANSPLANT | 07/21/16 | | [facility] | | | DATE | | | CELL | | | | | | PROCESSING | | | | | | LAB | | + + + + + + | PRODUCT | 320 | mL | [facility] | | | VOLUME TX | | | CELL | | | [...] [facility] | [address] | [place], [place] | | | PROCESSING LAB | [address] | [address] | | + + + + + 12 LEAD ECG (07/21/2016 6:55 AM PST) + + + + + + | Component | Value | Ref Range | Performed | Pathologist | | | | | At | Signature | + + + + + + | VENTRICULAR | 84 | bpm | [facility] | | | RATE | | | OF | | | | | | CARDIOLOGY | | + + + + + + | ATRIAL RATE | 85 | ms | [facility] | | | | | | OF | | | | | | CARDIOLOGY | | + + + + + + | P-R | 120 | ms | [facility] | | | INTERVAL | | | OF | | | | | | CARDIOLOGY | | + + + + + + | P AXIS | 46 | deg | [facility] | | | | | | OF | | | | | | CARDIOLOGY | | + + + + + + | QRS | 84 | ms | [facility] | | | DURATION | | | OF | | | | | | CARDIOLOGY | | + + + + + + | QT | 360 | ms | [facility] | | | | | | OF | | | | | | CARDIOLOGY | | + + + + + + | QTCB | 426 | ms | [facility] | | | | | | OF | | | | | | CARDIOLOGY | | + + + + + + | R AXIS | -2 | deg | [facility] | | | | | | OF | | | | | | CARDIOLOGY | | + + + + + + | T AXIS | 32 | deg | [facility] | | | | | | OF | | | | | | CARDIOLOGY | | + + + + + + | ECG | SINUS RHYTHM- NORMAL ECG | | [facility] | | | IMPRESSION | - | | OF | | | | | | CARDIOLOGY | | + + + + + + | ECG | Electronically signed | | [facility] | | | IMPRESSION | by: ENRIQUETA FRANCIS | | OF | | | | 07-21-2016 10:05:25 | | CARDIOLOGY | | + + + + + + + + | Specimen | + + | | + + + + + | Narrative | Performed At | + + + | | | + + + + + + + + | Performing | Address | City/State/Zipcode | Phone Number | | Organization | | | | + + + + + | [facility] | [address] | [place], [place] | | | CARDIOLOGY | [facility] | [address] | | + + + + + ANTIBODY SCREEN (07/21/2016 1:09 AM PST) + + + + + + | Component | Value | Ref Range | Performed | Pathologist | | | | | At | Signature | + + + + + + | Antibody | Negative | | [facility] | | | Screen | | | LABORATORY | | | | | | SERVICES, | | | | | | TRANSFUSION | | | | | | MEDICINE | | + + + + + + + + | Specimen | + + | Blood | + + + + + + + | Performing | Address | City/State/Zipcode | Phone Number | | Organization | | | | + + + + + | [facility] | [address] | [place] [address] | | | SERVICES, | [address] | | | | TRANSFUSION MEDICINE | | | | + + + + + ABO & RH TYPE (07/21/2016 1:09 AM PST) + + + + + + | Component | Value | Ref Range | Performed | Pathologist | | | | | At | Signature | + + + + + + | ABO Group | A | | [facility] | | | | | | LABORATORY | | | | | | SERVICES, | | | | | | TRANSFUSION | | | | | | MEDICINE | | + + + + + + | Rh Type | Positive | | [facility] | | | | | | LABORATORY | | | | | | SERVICES, | | | | | | TRANSFUSION | | | | | | MEDICINE | | + + + + + + + + | Specimen | + + | Blood | + + + + + + + | Performing | Address | City/State/Zipcode | Phone Number | | Organization | | | | + + + + + | [facility] | [address] | [place] [address] | | | SERVICES, | [address] | | | | TRANSFUSION MEDICINE | | | | + + + + + PRODUCT - RED CELLS LEUKOREDUCED (07/21/2016 1:08 AM PST) + + + + + + | Component | Value | Ref Range | Performed | Pathologist | | | | | At | Signature | + + + + + + | PRODUCT | -1 RED BLOOD CELLS | | [facility] | | | DESCRIPTION | ADENINE-SALINE ADDED | | LABORATORY | | | | LEUKOCYT | | SERVICES, | | | | | | TRANSFUSION | | | | | | MEDICINE | | + + + + + + | PRODUCT | [id number] | | [facility] | | | UNIT # | | | LABORATORY | | | | | | SERVICES, | | | | | | TRANSFUSION | | | | | | MEDICINE | | + + + + + + | UNIT ABO | A | | [facility] | | | | | | LABORATORY | | | | | | SERVICES, | | | | | | TRANSFUSION | | | | | | MEDICINE | | + + + + + + | UNIT RH | POS | | [facility] | | | | | | LABORATORY | | | | | | SERVICES, | | | | | | TRANSFUSION | | | | | | MEDICINE | | + + + + + + | STATUS OF | Presumed Transfused | | [facility] | | | UNIT | | | LABORATORY | | | | | | SERVICES, | | | | | | TRANSFUSION | | | | | | MEDICINE | | + + + + + + | EXPIRATION | [id number] | | [facility] | | | DATE | | | LABORATORY | | | | | | SERVICES, | | | | | | TRANSFUSION | | | | | | MEDICINE | | + + + + + + | BLOOD TYPE | [id number] | | [facility] | | | BARCODE | | | LABORATORY | | | | | | SERVICES, | | | | | | TRANSFUSION | | | | | | MEDICINE | | + + + + + + | BLOOD | [id number] | | [facility] | | | PRODUCT | | | LABORATORY | | | CODE | | | SERVICES, | | | | | | TRANSFUSION | | | | | | MEDICINE | | + + + + + + + + | Specimen | + + | | + + + + + + + | Performing | Address | City/State/Zipcode | Phone Number | | Organization | | | | + + + + + | [facility] | [address] | [place] [address] | | | SERVICES, | [address] | | | | TRANSFUSION MEDICINE | | | | + + + + + CBC AND AUTO DIFF (07/20/2016 11:09 PM PST) + + + + + + | Component | Value | Ref Range | Performed | Pathologist | | | | | At | Signature | + + + + + + | WHITE CELL | 1.55 (L) | 3.50 - 10.80 | [facility] | | | COUNT | | K/cu mm | LABORATORY | | | | | | SERVICES, | | | | | | CORE | | + + + + + + | RED CELL | 2.29 (L) | 4.00 - 5.20 | [facility] | | | COUNT | | M/cu mm | LABORATORY | | | | | | SERVICES, | | | | | | CORE | | + + + + + + | HEMOGLOBIN | 6.9 (L) | 12.0 - 16.0 | [facility] | | | | | g/dL | LABORATORY | | | | | | SERVICES, | | | | | | CORE | | + + + + + + | HEMATOCRIT | 20.8 (L) | 36.0 - 46.0 % | [facility] | | | | | | LABORATORY | | | | | | SERVICES, | | | | | | CORE | | + + + + + + | MCV | 90.8 | 80.0 - 96.0 fL | [facility] | | | | | | LABORATORY | | | | | | SERVICES, | | | | | | CORE | | + + + + + + | MCHC | 33.2 | 33.0 - 35.5 | [facility] | | | | | g/dL | LABORATORY | | | | | | SERVICES, | | | | | | CORE | | + + + + + + | RDW SD | 50.7 (H) | 35.1 - 46.3 fL | [facility] | | | | | | LABORATORY | | | | | | SERVICES, | | | | | | CORE | | + + + + + + | PLATELET | 135 (L) | 150 - 400 K/cu | [facility] | | | COUNT | | mm | LABORATORY | | | | | | SERVICES, | | | | | | CORE | | + + + + + + | MPV | 10.2 | 9.7 - 12.3 fL | [facility] [...] + + + + | NEUTROPHIL | 97.5 (H) | 50.0 - 70.0 % | [facility] | | | % | | | LABORATORY | | | | | | SERVICES, | | | | | | CORE | | + + + + + + | LYMPHOCYTE | 1.9 (L) | 18.0 - 42.0 % | [facility] | | | % | | | LABORATORY | | | | | | SERVICES, | | | | | | CORE | | + + + + + + | MONOCYTE % | 0.0 (L) | 3.5 - 9.0 % | [facility] | | | | | | LABORATORY | | | | | | SERVICES, | | | | | | CORE | | + + + + + + | EOS % | 0.0 (L) | 1.0 - 3.0 % | [facility] | | | | | | LABORATORY | | | | | | SERVICES, | | | | | | CORE | | + + + + + + | BASO % | 0.0 | 0.0 - 2.0 % | [facility] | | | | | | LABORATORY | | | | | | SERVICES, | | | | | | CORE | | + + + + + + | IG% | 0.6Comment: Immature | 0.0 - 0.6 % | [...] + + + + | NEUTROPHIL | 1.51 (L) | 1.80 - 7.70 | [facility] | | | # | | K/cu mm | LABORATORY | | | | | | SERVICES, | | | | | | CORE | | + + + + + + | LYMPHOCYTE | 0.03 (L) | 1.00 - 4.80 | [facility] | | | # | | K/cu mm | LABORATORY | | | | | | SERVICES, | | | | | | CORE | | + + + + + + | MONOCYTE # | 0.00 (L) | 0.10 - 0.90 | [facility] | | | | | K/cu mm | LABORATORY | | | | | | SERVICES, | | | | | | CORE | | + + + + + + | EOS # | 0.00 | 0.00 - 0.50 | [facility] | | | | | K/cu mm | LABORATORY | | | | | | SERVICES, | | | | | | CORE | | + + + + + + | BASO # | 0.00 | 0.00 - 0.10 | [facility] | | | | | K/cu mm | LABORATORY | | | | | | SERVICES, | | | | | | CORE | | + + + + + + | IG# | 0.01 | 0.00 - 0.03 | [facility] | [...] [facility] | [address] | [place] [address] | | | SERVICES, CORE | [address] | | | + + + + + PHOSPHORUS, PLASMA (07/20/2016 11:09 PM PST) + +---------+ + + + | Component | Value | Ref Range | Performed | Pathologist | | | | | At | Signature | + +---------+ + + + | PHOSPHORUS, | 1.7 (L) | 2.4 - 4.7 mg/dL | [facility] | | | PLASMA | | | [...] [facility] | [address] | [place] [address] | | | SERVICES, CORE | [address] | | | + + + + + MAGNESIUM, PLASMA (07/20/2016 11:09 PM PST) + +---------+ + + + | Component | Value | Ref Range | Performed | Pathologist | | | | | At | Signature | + +---------+ + + + | MAGNESIUM,P | 1.6 (L) | 1.8 - 2.5 [...] | + + + + + | [facility] | [address] [facility] [facility] | [place] [address] | | | SERVICES, CORE | [address] | | | + + + + + COMPLETE METABOLIC SET (NA,K,CL,CO2,BUN,CREAT,GLUC,CA,AST,ALT,BILI TOTAL,ALK PHOS,ALB,PROT TOTAL) (07/20/2016 11:09 PM PST) + + + + + + | Component | Value | Ref Range | Performed | Pathologist | | | | | At | Signature | + + + + + + | GLUCOSE, | 160 (H) | 60 - 99 mg/dL | [facility] | | | PLASMA | | | LABORATORY | | | (LAB) | | | SERVICES, | | | | | | CORE | | + + + + + + | BUN, PLASMA | 14 | 6 - 20 mg/dL | [facility] | | | (LAB) | | | LABORATORY | | | | | | SERVICES, | | | | | | CORE | | + + + + + + | CREATININE | 0.51 (L) | 0.60 - 1.10 | [facility] | | | PLASMA | | mg/dL | LABORATORY | | | (LAB) | | | SERVICES, | | | | | | CORE | | + + + + + + | EGFR | >60 | >60 mL/min | [facility] | | | - | | | LABORATORY | | | SURINAMESE | | | SERVICES, | | | | | | CORE | | + + + + + + | EGFR NON | >60 | >60 mL/min | [facility] | | | -RAOUL | | | LABORATORY | | | RICAN | | | SERVICES, | | | | | | CORE | | + + + + + + | SODIUM, | 141 | 136 - 145 | [facility] | | | PLASMA | | mmol/L | LABORATORY | | | (LAB) | | | SERVICES, | | | | | | CORE | | + + + + + + | POTASSIUM, | 3.3 (L) | 3.4 - 5.0 | [facility] | | | PLASMA | | mmol/L | LABORATORY | | | (LAB) | | | SERVICES, | | | | | | CORE | | + + + + + + | CHLORIDE, | 110 (H) | 97 - 108 mmol/L | [facility] | | | PLASMA | | | LABORATORY | | | (LAB) | | | SERVICES, | | | | | | CORE | | + + + + + + | TOTAL CO2, | 23 | 21 - 32 mmol/L | [facility] | | | PLASMA | | | LABORATORY | | | (LAB) | | | SERVICES, | | | | | | CORE | | + + + + + + | CALCIUM, | 7.6 (L) | 8.6 - 10.2 | [facility] | | | PLASMA | | mg/dL | LABORATORY | | | (LAB) | | | SERVICES, | | | | | | CORE | | + + + + + + | CALCIUM(ALB | 8.4 (L) | 8.6 - 10.2 | [facility] | | | CORRECTED) | | mg/dL | LABORATORY | | | | | | SERVICES, | | | | | | CORE | | + + + + + + | BILIRUBIN | 0.3 | 0.3 - 1.2 mg/dL | [facility] | | | TOTAL | | | LABORATORY | | | | | | SERVICES, | | | | | | CORE | | + + + + + + | TOTAL | 5.1 (L) | 6.4 - 8.2 g/dL | [facility] | | | PROTEIN, | | | LABORATORY | | | PLASMA | | | SERVICES, | | | (LAB) | | | CORE | | + + + + + + | ALBUMIN, | 3.0 (L) | 3.5 - 4.7 g/dL | [facility] | | | PLASMA | | | LABORATORY | | | (LAB) | | | SERVICES, | | | | | | CORE | | + + + + + + | ALK PHOS | 62 | 42 - 98 U/L | [facility] | | | | | | LABORATORY | | | | | | SERVICES, | | | | | | CORE | | + + + + + + | AST(SGOT) | 5 | <=41 U/L | [facility] | | | | | | LABORATORY | | | | | | SERVICES, | | | | | | CORE | | + + + + + + | ALT (SGPT) | 12 | <=60 U/L | [facility] | | | | | | LABORATORY | | | | | | SERVICES, | | | | | | CORE | | + + + + + + | ANION GAP | 8 | mmol/L | [facility] | | | | | | LABORATORY | | | | | | SERVICES, | | | | | | CORE | | + + + + + + | ANION | 10 | 4 - 11 mmol/L | [facility] | | | GAP(ALB | | | LABORATORY | | | CORRECTED) | | | SERVICES, | | | | | | CORE | | + + + + + + | POTASSIUM | No Hemo | | [facility] | | | CMNT | | | LABORATORY | | | | | | SERVICES, | | | | | | CORE | | + + + + + + | BILI T CMNT | No Hemo | | [facility] | | | | | | LABORATORY | | | | | | SERVICES, | | | | | | CORE | | + + + + + + | AST CMNT | [...] | + + + + + | [facility] | [address] | [place] [address] | | | [address] | [address] | | | + + + + + CBC AND AUTO DIFF (07/19/2016 11:55 PM PST) + + + + + + | Component | Value | Ref Range | Performed | Pathologist | | | | | At | Signature | + + + + + + | WHITE CELL | 2.41 (L) | 3.50 - 10.80 | [facility] | | | COUNT | | K/cu mm | LABORATORY | | | | | | SERVICES, | | | | | | CORE | | + + + + + + | RED CELL | 2.56 (L) | 4.00 - 5.20 | [facility] | | | COUNT | | M/cu mm | LABORATORY | | | | | | SERVICES, | | | | | | CORE | | + + + + + + | HEMOGLOBIN | 7.9 (L) | 12.0 - 16.0 | [facility] | | | | | g/dL | LABORATORY | | | | | | SERVICES, | | | | | | CORE | | + + + + + + | HEMATOCRIT | 23.2 (L) | 36.0 - 46.0 % | [facility] | | | | | | LABORATORY | | | | | | SERVICES, | | | | | | CORE | | + + + + + + | MCV | 90.6 | 80.0 - 96.0 fL | [facility] | | | | | | LABORATORY | | | | | | SERVICES, | | | | | | CORE | | + + + + + + | MCHC | 34.1 | 33.0 - 35.5 | [facility] | | | | | g/dL | LABORATORY | | | | | | SERVICES, | | | | | | CORE | | + + + + + + | RDW SD | 51.5 (H) | 35.1 - 46.3 fL | [facility] | | | | | | LABORATORY | | | | | | SERVICES, | | | | | | CORE | | + + + + + + | PLATELET | 168 | 150 - 400 K/cu | [facility] | | | COUNT | | mm | LABORATORY | | | | | | SERVICES, | | | | | | CORE | | + + + + + + | MPV | 10.1 | 9.7 - 12.3 fL | [facility] [...] + + + + | NEUTROPHIL | 96.3 (H) | 50.0 - 70.0 % | [facility] | | | % | | | LABORATORY | | | | | | SERVICES, | | | | | | CORE | | + + + + + + | LYMPHOCYTE | 2.9 (L) | 18.0 - 42.0 % | [facility] | | | % | | | LABORATORY | | | | | | SERVICES, | | | | | | CORE | | + + + + + + | MONOCYTE % | 0.4 (L) | 3.5 - 9.0 % | [facility] | | | | | | LABORATORY | | | | | | SERVICES, | | | | | | CORE | | + + + + + + | EOS % | 0.0 (L) | 1.0 - 3.0 % | [facility] | | | | | | LABORATORY | | | | | | SERVICES, | | | | | | CORE | | + + + + + + | BASO % | 0.0 | 0.0 - 2.0 % | [facility] | | | | | | LABORATORY | | | | | | SERVICES, | | | | | | CORE | | + + + + + + | IG% | 0.4Comment: Immature | 0.0 - 0.6 % | [...] + + + + | NEUTROPHIL | 2.32 | 1.80 - 7.70 | [facility] | | | # | | K/cu mm | LABORATORY | | | | | | SERVICES, | | | | | | CORE | | + + + + + + | LYMPHOCYTE | 0.07 (L) | 1.00 - 4.80 | [facility] | | | # | | K/cu mm | LABORATORY | | | | | | SERVICES, | | | | | | CORE | | + + + + + + | MONOCYTE # | 0.01 (L) | 0.10 - 0.90 | [facility] | | | | | K/cu mm | LABORATORY | | | | | | SERVICES, | | | | | | CORE | | + + + + + + | EOS # | 0.00 | 0.00 - 0.50 | [facility] | | | | | K/cu mm | LABORATORY | | | | | | SERVICES, | | | | | | CORE | | + + + + + + | BASO # | 0.00 | 0.00 - 0.10 | [facility] | | | | | K/cu mm | LABORATORY | | | | | | SERVICES, | | | | | | CORE | | + + + + + + | IG# | 0.01 | 0.00 - 0.03 | [facility] | [...] in the IG count. Bands are | [address] | | included in the neutrophil count. | | + + + + + + + + | Performing | Address | City/State/Zipcode | Phone Number | | Organization | | | | + + + + + | [facility] | [address] | [place] [address] | | | [address] | [address] | | | + + + + + PHOSPHORUS, PLASMA (07/19/2016 11:55 PM PST) + +-------+ + + + | Component | Value | Ref Range | Performed | Pathologist | | | | | At | Signature | + +-------+ + + + | PHOSPHORUS, | 2.5 | 2.4 - 4.7 mg/dL | [facility] [...] | + + + + + | [facility] | [address] | [place] [address] | | | SERVICES, CORE | [address] | | | + + + + + MAGNESIUM, PLASMA (07/19/2016 11:55 PM PST) + +-------+ + + + | Component | Value | Ref Range | Performed | Pathologist | | | | | At | Signature | + +-------+ + + + | MAGNESIUM,P | 2.0 | 1.8 - 2.5 mg/dL | [facility] | | | LASMA | | | [...] | + + + + + | [facility] | [address] | [place] [address] | | | SERVICES, CORE | [address] | | | + + + + + COMPLETE METABOLIC SET (NA,K,CL,CO2,BUN,CREAT,GLUC,CA,AST,ALT,BILI TOTAL,ALK PHOS,ALB,PROT TOTAL) (07/19/2016 11:55 PM PST) + +---------+ + + + | Component | Value | Ref Range | Performed | Pathologist | | | | | At | Signature | + +---------+ + + + | GLUCOSE, | 108 (H) | 60 - 99 mg/dL | [facility] | | | PLASMA | | | LABORATORY | | | (LAB) | | | SERVICES, | | | | | | CORE | | + +---------+ + + + | BUN, PLASMA | 11 | 6 - 20 mg/dL | [facility] | | | (LAB) | | | LABORATORY | | | | | | SERVICES, | | | | | | CORE | | + +---------+ + + + | CREATININE | 0.60 | 0.60 - 1.10 | [facility] | | | PLASMA | | mg/dL | LABORATORY | | | (LAB) | | | SERVICES, | | | | | | CORE | | + +---------+ + + + | EGFR | >60 | >60 mL/min | [facility] | | | - | | | LABORATORY | | | SURINAMESE | | | SERVICES, | | | | | | CORE | | + +---------+ + + + | EGFR NON | >60 | >60 mL/min | [facility] | | | -RAOUL | | | LABORATORY | | | RICAN | | | SERVICES, | | | | | | CORE | | + +---------+ + + + | SODIUM, | 142 | 136 - 145 | [facility] | | | PLASMA | | mmol/L | LABORATORY | | | (LAB) | | | SERVICES, | | | | | | CORE | | + +---------+ + + + | POTASSIUM, | 3.6 | 3.4 - 5.0 | [facility] | | | PLASMA | | mmol/L | LABORATORY | | | (LAB) | | | SERVICES, | | | | | | CORE | | + +---------+ + + + | CHLORIDE, | 111 (H) | 97 - 108 mmol/L | [facility] | | | PLASMA | | | LABORATORY | | | (LAB) | | | SERVICES, | | | | | | CORE | | + +---------+ + + + | TOTAL CO2, | 22 | 21 - 32 mmol/L | [facility] | | | PLASMA | | | LABORATORY | | | (LAB) | | | SERVICES, | | | | | | CORE | | + +---------+ + + + | CALCIUM, | 8.0 (L) | 8.6 - 10.2 | [facility] | | | PLASMA | | mg/dL | LABORATORY | | | (LAB) | | | SERVICES, | | | | | | CORE | | + +---------+ + + + | CALCIUM(ALB | 8.7 | 8.6 - 10.2 | [facility] | | | CORRECTED) | | mg/dL | LABORATORY | | | | | | SERVICES, | | | | | | CORE | | + +---------+ + + + | BILIRUBIN | 0.4 | 0.3 - 1.2 mg/dL | [facility] | | | TOTAL | | | LABORATORY | | | | | | SERVICES, | | | | | | CORE | | + +---------+ + + + | TOTAL | 5.4 (L) | 6.4 - 8.2 g/dL | [facility] | | | PROTEIN, | | | LABORATORY | | | PLASMA | | | SERVICES, | | | (LAB) | | | CORE | | + +---------+ + + + | ALBUMIN, | 3.1 (L) | 3.5 - 4.7 g/dL | [facility] | | | PLASMA | | | LABORATORY | | | (LAB) | | | SERVICES, | | | | | | CORE | | + +---------+ + + + | ALK PHOS | 65 | 42 - 98 U/L | [facility] | | | | | | LABORATORY | | | | | | SERVICES, | | | | | | CORE | | + +---------+ + + + | AST(SGOT) | 8 | <=41 U/L | [facility] | | | | | | LABORATORY | | | | | | SERVICES, | | | | | | CORE | | + +---------+ + + + | ALT (SGPT) | 12 | <=60 U/L | [facility] | | | | | | LABORATORY | | | | | | SERVICES, | | | | | | CORE | | + +---------+ + + + | ANION GAP | 9 | mmol/L | [facility] | | | | | | LABORATORY | | | | | | SERVICES, | | | | | | CORE | | + +---------+ + + + | ANION | 11 | 4 - 11 mmol/L | [facility] [...] | + + + + + | [facility] [employer] | [id number] | [place] [address] | | | SERVICES, CORE | [address] | | | + + + + + CBC AND AUTO DIFF (07/18/2016 11:45 PM PST) + + + + + + | Component | Value | Ref Range | Performed | Pathologist | | | | | At | Signature | + + + + + + | WHITE CELL | 2.42 (L) | 3.50 - 10.80 | [facility] | | | COUNT | | K/cu mm | LABORATORY | | | | | | SERVICES, | | | | | | CORE | | + + + + + + | RED CELL | 2.69 (L) | 4.00 - 5.20 | [facility] | | | COUNT | | M/cu mm | LABORATORY | | | | | | SERVICES, | | | | | | CORE | | + + + + + + | HEMOGLOBIN | 8.3 (L) | 12.0 - 16.0 | [facility] | | | | | g/dL | LABORATORY | | | | | | SERVICES, | | | | | | CORE | | + + + + + + | HEMATOCRIT | 24.4 (L) | 36.0 - 46.0 % | [facility] | | | | | | LABORATORY | | | | | | SERVICES, | | | | | | CORE | | + + + + + + | MCV | 90.7 | 80.0 - 96.0 fL | [facility] | | | | | | LABORATORY | | | | | | SERVICES, | | | | | | CORE | | + + + + + + | MCHC | 34.0 | 33.0 - 35.5 | [facility] | | | | | g/dL | LABORATORY | | | | | | SERVICES, | | | | | | CORE | | + + + + + + | RDW SD | 52.8 (H) | 35.1 - 46.3 fL | [facility] | | | | | | LABORATORY | | | | | | SERVICES, | | | | | | CORE | | + + + + + + | PLATELET | 164 | 150 - 400 K/cu | [facility] | | | COUNT | | mm | LABORATORY | | | | | | SERVICES, | | | | | | CORE | | + + + + + + | MPV | 10.0 | 9.7 - 12.3 fL | [facility] [...] + + + + | NEUTROPHIL | 94.6 (H) | 50.0 - 70.0 % | [facility] | | | % | | | LABORATORY | | | | | | SERVICES, | | | | | | CORE | | + + + + + + | LYMPHOCYTE | 2.5 (L) | 18.0 - 42.0 % | [facility] | | | % | | | LABORATORY | | | | | | SERVICES, | | | | | | CORE | | + + + + + + | MONOCYTE % | 2.5 (L) | 3.5 - 9.0 % | [facility] | | | | | | LABORATORY | | | | | | SERVICES, | | | | | | CORE | | + + + + + + | EOS % | 0.0 (L) | 1.0 - 3.0 % | [facility] | | | | | | LABORATORY | | | | | | SERVICES, | | | | | | CORE | | + + + + + + | BASO % | 0.0 | 0.0 - 2.0 % | [facility] | | | | | | LABORATORY | | | | | | SERVICES, | | | | | | CORE | | + + + + + + | IG% | 0.4Comment: Immature | 0.0 - 0.6 % | [...] + + + + | NEUTROPHIL | 2.29 | 1.80 - 7.70 | [facility] | | | # | | K/cu mm | LABORATORY | | | | | | SERVICES, | | | | | | CORE | | + + + + + + | LYMPHOCYTE | 0.06 (L) | 1.00 - 4.80 | [facility] | | | # | | K/cu mm | LABORATORY | | | | | | SERVICES, | | | | | | CORE | | + + + + + + | MONOCYTE # | 0.06 (L) | 0.10 - 0.90 | [facility] | | | | | K/cu mm | LABORATORY | | | | | | SERVICES, | | | | | | CORE | | + + + + + + | EOS # | 0.00 | 0.00 - 0.50 | [facility] | | | | | K/cu mm | LABORATORY | | | | | | SERVICES, | | | | | | CORE | | + + + + + + | BASO # | 0.00 | 0.00 - 0.10 | [facility] | | | | | K/cu mm | LABORATORY | | | | | | SERVICES, | | | | | | CORE | | + + + + + + | IG# | 0.01 | 0.00 - 0.03 | [facility] | [...] | + + + + + | [facility] | [address] | [place] [address] | | | SERVICES, CORE | [address] | | | + + + + + URIC ACID, PLASMA (07/18/2016 11:45 PM PST) + +---------+ + + + | Component | Value | Ref Range | Performed | Pathologist | | | | | At | Signature | + +---------+ + + + | URIC ACID, | 2.3 (L) | 2.5 - 6.2 mg/dL | [facility] [...] [facility] | [address] | [place] [address] | | | SERVICES, CORE | [address] | | | + + + + + LDH TOTAL, PLASMA (07/18/2016 11:45 PM PST) + +---------+ + + + | Component | Value | Ref Range | Performed | Pathologist | | | | | At | Signature | + +---------+ + + + | LD TOTAL, | 147 | <=250 U/L | [facility] | | [...] | + + + + + | [facility] | [address] | [place] [address] | | | SERVICES, CORE | [address] | | | + + + + + HAPTOGLOBIN, SERUM (07/18/2016 11:45 PM PST) + + + + + [...] - | | | | | | [place] | | + + + + + + + + | Specimen | + + | Blood | + + + + + + + | Performing | Address | City/State/Zipcode | Phone Number | | Organization | | | | + + + + + | [facility] | [address] | [place] [address] | | | [place] | | | | + + + + + COMPLEMENT ACTIVITY ENZYME IMMUNOASSAY, TOTAL (07/18/2016 11:45 PM PST) + + + + + [...] [facility] | | | | | | [facility],[address] | | | | | | [place], [place] [address] | | | | | | [phone] | | | | | [place] [...] [facility] | [address] | [place], [place] | | | [facility] | | [address] | | + + + + + INR (07/18/2016 11:45 PM PST) + +-------+ + + + | Component | Value | Ref Range | Performed | Pathologist | | | | | At | Signature | + +-------+ + + + | INR | 1.06 | 0.90 - 1.20 INR | [facility] [...] mech. valves (2.5 - 3.5) INR | SERVICES, CORE | + + + + + + + + | Performing | Address | City/State/Zipcode | Phone Number | | Organization | | | | + + + + + | [facility] | [address] | [place] [address] | | | SERVICES, CORE | [address] | | | + + + + + PHOSPHORUS, PLASMA (07/18/2016 11:45 PM PST) + +-------+ + + + [...] [facility] | [address] | [place] [address] | | | ELISA, SCOOBY | [address] | | | + + + + + MAGNESIUM, PLASMA (07/18/2016 11:45 PM PST) + +-------+ + + + | Component | Value | Ref Range | Performed | Pathologist | | | | | At | Signature | + +-------+ + + + | MAGNESIUM,P | 2.0 | 1.8 - 2.5 mg/dL | [facility] [...] [facility] | [address] | [place] [address] | | | SERVICES, CORE | [address] | | | + + + + + COMPLETE METABOLIC SET (NA,K,CL,CO2,BUN,CREAT,GLUC,CA,AST,ALT,BILI TOTAL,ALK PHOS,ALB,PROT TOTAL) (07/18/2016 11:45 PM PST) + +---------+ + + + | Component | Value | Ref Range | Performed | Pathologist | | | | | At | Signature | + +---------+ + + + | GLUCOSE, | 116 (H) | 60 - 99 mg/dL | [facility] | | | PLASMA | | | LABORATORY | | | (LAB) | | | SERVICES, | | | | | | CORE | | + +---------+ + + + | BUN, PLASMA | 13 | 6 - 20 mg/dL | [facility] | | | (LAB) | | | LABORATORY | | | | | | SERVICES, | | | | | | CORE | | + +---------+ + + + | CREATININE | 0.61 | 0.60 - 1.10 | [facility] | | | PLASMA | | mg/dL | LABORATORY | | | (LAB) | | | SERVICES, | | | | | | CORE | | + +---------+ + + + | EGFR | >60 | >60 mL/min | [facility] | | | - | | | LABORATORY | | | SURINAMESE | | | SERVICES, | | | | | | CORE | | + +---------+ + + + | EGFR NON | >60 | >60 mL/min | [facility] | | | -RAOUL | | | LABORATORY | | | RICAN | | | SERVICES, | | | | | | CORE | | + +---------+ + + + | SODIUM, | 142 | 136 - 145 | [facility] | | | PLASMA | | mmol/L | LABORATORY | | | (LAB) | | | SERVICES, | | | | | | CORE | | + +---------+ + + + | POTASSIUM, | 3.8 | 3.4 - 5.0 | [facility] | | | PLASMA | | mmol/L | LABORATORY | | | (LAB) | | | SERVICES, | | | | | | CORE | | + +---------+ + + + | CHLORIDE, | 111 (H) | 97 - 108 mmol/L | [facility] | | | PLASMA | | | LABORATORY | | | (LAB) | | | SERVICES, | | | | | | CORE | | + +---------+ + + + | TOTAL CO2, | 24 | 21 - 32 mmol/L | [facility] | | | PLASMA | | | LABORATORY | | | (LAB) | | | SERVICES, | | | | | | CORE | | + +---------+ + + + | CALCIUM, | 8.2 (L) | 8.6 - 10.2 | [facility] | | | PLASMA | | mg/dL | LABORATORY | | | (LAB) | | | SERVICES, | | | | | | CORE | | + +---------+ + + + | CALCIUM(ALB | 8.8 | 8.6 - 10.2 | [facility] | [...] +---------+ + + + | TOTAL | 5.7 (L) | 6.4 - 8.2 g/dL | [facility] | | | PROTEIN, | | | LABORATORY | | | PLASMA | | | SERVICES, | | | (LAB) | | | CORE | | + +---------+ + + + | ALBUMIN, | 3.2 (L) | 3.5 - 4.7 g/dL | [facility] | | | PLASMA | | | LABORATORY | | | (LAB) | | | SERVICES, | | | | | | CORE | | + +---------+ + + + | ALK PHOS | 73 | 42 - 98 U/L | [facility] | | | | | | LABORATORY | | | | | | SERVICES, | | | | | | CORE | | + +---------+ + + + | AST(SGOT) | 5 | <=41 U/L | [facility] | | | | | | LABORATORY | | | | | | SERVICES, | | | | | | CORE | | + +---------+ + + + | ALT (SGPT) | 12 | <=60 U/L | [facility] | | | | | | LABORATORY | | | | | | SERVICES, | | | | | | CORE | | + +---------+ + + + | ANION GAP | 7 | mmol/L | [facility] | | | [...] the MDRD equation recommended by the | [facility] | | National Kidney Disease Education Program. [...] | + + + + + | [facility] | [address] | [place] [address] | | | SERVICES, CORE | [address] | | | + + + + + CBC AND AUTO DIFF (07/17/2016 11:10 PM PST) + + + + + + | Component | Value | Ref Range | Performed | Pathologist | | | | | At | Signature | + + + + + + | WHITE CELL | 4.16 | 3.50 - 10.80 | [facility] | | | COUNT | | K/cu mm | LABORATORY | | | | | | SERVICES, | | | | | | CORE | | + + + + + + | RED CELL | 2.90 (L) | 4.00 - 5.20 | [facility] | | | COUNT | | M/cu mm | LABORATORY | | | | | | SERVICES, | | | | | | CORE | | + + + + + + | HEMOGLOBIN | 8.7 (L) | 12.0 - 16.0 | [facility] | | | | | g/dL | LABORATORY | | | | | | SERVICES, | | | | | | CORE | | + + + + + + | HEMATOCRIT | 26.4 (L) | 36.0 - 46.0 % | [facility] | | | | | | LABORATORY | | | | | | SERVICES, | | | | | | CORE | | + + + + + + | MCV | 91.0 | 80.0 - 96.0 fL | [facility] | | | | | | LABORATORY | | | | | | SERVICES, | | | | | | CORE | | + + + + + + | MCHC | 33.0 | 33.0 - 35.5 | [facility] | | | | | g/dL | LABORATORY | | | | | | SERVICES, | | | | | | CORE | | + + + + + + | RDW SD | 54.6 (H) | 35.1 - 46.3 fL | [facility] | | | | | | LABORATORY | | | | | | SERVICES, | | | | | | CORE | | + + + + + + | PLATELET | 188 | 150 - 400 K/cu | [facility] | | | COUNT | | mm | LABORATORY | | | | | | SERVICES, | | | | | | CORE | | + + + + + + | MPV | 10.2 | 9.7 - 12.3 fL | [facility] [...] + + + + | NEUTROPHIL | 91.4 (H) | 50.0 - 70.0 % | [facility] | | | % | | | LABORATORY | | | | | | SERVICES, | | | | | | CORE | | + + + + + + | LYMPHOCYTE | 2.4 (L) | 18.0 - 42.0 % | [facility] | | | % | | | LABORATORY | | | | | | SERVICES, | | | | | | CORE | | + + + + + + | MONOCYTE % | 4.8 | 3.5 - 9.0 % | [facility] | | | | | | LABORATORY | | | | | | SERVICES, | | | | | | CORE | | + + + + + + | EOS % | 0.0 (L) | 1.0 - 3.0 % | [facility] | | | | | | LABORATORY | | | | | | SERVICES, | | | | | | CORE | | + + + + + + | BASO % | 0.0 | 0.0 - 2.0 % | [facility] | | | | | | LABORATORY | | | | | | SERVICES, | | | | | | CORE | | + + + + + + | IG% | 1.4 (H)Comment: Immature | 0.0 - 0.6 % [...] + + + + | NEUTROPHIL | 3.80 | 1.80 - 7.70 | [facility] | | | # | | K/cu mm | LABORATORY | | | | | | SERVICES, | | | | | | CORE | | + + + + + + | LYMPHOCYTE | 0.10 (L) | 1.00 - 4.80 | [facility] | | | # | | K/cu mm | LABORATORY | | | | | | SERVICES, | | | | | | CORE | | + + + + + + | MONOCYTE # | 0.20 | 0.10 - 0.90 | [facility] | | | | | K/cu mm | LABORATORY | | | | | | SERVICES, | | | | | | CORE | | + + + + + + | EOS # | 0.00 | 0.00 - 0.50 | [facility] | | | | | K/cu mm | LABORATORY | | | | | | SERVICES, | | | | | | CORE | | + + + + + + | BASO # | 0.00 | 0.00 - 0.10 | [facility] | | | | | K/cu mm | LABORATORY | | | | | | SERVICES, | | | | | | CORE | | + + + + + + | IG# | 0.06 (H) | 0.00 - 0.03 | [facility] | [...] [facility] | [address] | [place] [address] | | | SERVICES, CORE | [address] | | | + + + + + PHOSPHORUS, PLASMA (07/17/2016 11:10 PM PST) + +-------+ + + + | Component | Value | Ref Range | Performed | Pathologist | | | | | At | Signature | + +-------+ + + + | PHOSPHORUS, | 2.7 | 2.4 - 4.7 mg/dL | [facility] [...] + | [facility] | [address] | [place] [address] | | | SERVICES, CORE | [address] | | | + + + + + MAGNESIUM, PLASMA (07/17/2016 11:10 PM PST) + +-------+ + + + | Component | Value | Ref Range | Performed | Pathologist | | | | | At | Signature | + +-------+ + + + | MAGNESIUM,P | 2.0 | 1.8 - 2.5 mg/dL | [facility] [...] | + + + + + | [facility] | [address] | [place] [address] | | | SERVICES, CORE | [address] | | | + + + + + COMPLETE METABOLIC SET (NA,K,CL,CO2,BUN,CREAT,GLUC,CA,AST,ALT,BILI TOTAL,ALK PHOS,ALB,PROT TOTAL) (07/17/2016 11:10 PM PST) + + + + + + | Component | Value | Ref Range | Performed | Pathologist | | | | | At | Signature | + + + + + + | GLUCOSE, | 116 (H) | 60 - 99 mg/dL | [facility] | | | PLASMA | | | LABORATORY | | | (LAB) | | | SERVICES, | | | | | | CORE | | + + + + + + | BUN, PLASMA | 14 | 6 - 20 mg/dL | [facility] | | | (LAB) | | | LABORATORY | | | | | | SERVICES, | | | | | | CORE | | + + + + + + | CREATININE | 0.58 (L) | 0.60 - 1.10 | [facility] | | | PLASMA | | mg/dL | LABORATORY | | | (LAB) | | | SERVICES, | | | | | | CORE | | + + + + + + | EGFR | >60 | >60 mL/min | [facility] | | | - | | | LABORATORY | | | SURINAMESE | | | SERVICES, | | | | | | CORE | | + + + + + + | EGFR NON | >60 | >60 mL/min | [facility] | | | -RAOUL | | | LABORATORY | | | RICAN | | | SERVICES, | | | | | | CORE | | + + + + + + | SODIUM, | 143 | 136 - 145 | [facility] | | | PLASMA | | mmol/L | LABORATORY | | | (LAB) | | | SERVICES, | | | | | | CORE | | + + + + + + | POTASSIUM, | 3.7 | 3.4 - 5.0 | [facility] | | | PLASMA | | mmol/L | LABORATORY | | | (LAB) | | | SERVICES, | | | | | | CORE | | + + + + + + | CHLORIDE, | 110 (H) | 97 - 108 mmol/L | [facility] | | | PLASMA | | | LABORATORY | | | (LAB) | | | SERVICES, | | | | | | CORE | | + + + + + + | TOTAL CO2, | 22 | 21 - 32 mmol/L | [facility] | | | PLASMA | | | LABORATORY | | | (LAB) | | | SERVICES, | | | | | | CORE | | + + + + + + | CALCIUM, | 8.3 (L) | 8.6 - 10.2 | [facility] | | | PLASMA | | mg/dL | LABORATORY | | | (LAB) | | | SERVICES, | | | | | | CORE | | + + + + + + | CALCIUM(ALB | 8.9 | 8.6 - 10.2 | [facility] | | | CORRECTED) | | mg/dL | LABORATORY | | | | | | SERVICES, | | | | | | CORE | | + + + + + + | BILIRUBIN | 0.3 | 0.3 - 1.2 mg/dL | [facility] | | | TOTAL | | | LABORATORY | | | | | | SERVICES, | | | | | | CORE | | + + + + + + | TOTAL | 5.9 (L) | 6.4 - 8.2 g/dL | [facility] | | | PROTEIN, | | | LABORATORY | | | PLASMA | | | SERVICES, | | | (LAB) | | | CORE | | + + + + + + | ALBUMIN, | 3.2 (L) | 3.5 - 4.7 g/dL | [facility] | | | PLASMA | | | LABORATORY | | | (LAB) | | | SERVICES, | | | | | | CORE | | + + + + + + | ALK PHOS | 78 | 42 - 98 U/L | [facility] | | | | | | LABORATORY | | | | | | SERVICES, | | | | | | CORE | | + + + + + + | AST(SGOT) | 6 | <=41 U/L | [facility] | | | | | | LABORATORY | | | | | | SERVICES, | | | | | | CORE | | + + + + + + | ALT (SGPT) | 12 | <=60 U/L | [facility] | | | | | | LABORATORY | | | | | | SERVICES, | | | | | | CORE | | + + + + + + | ANION GAP | 11 | mmol/L | [facility] | | | | | | LABORATORY | | | | | | SERVICES, | | | | | | CORE | | + + + + + + | ANION | 13 (H) | 4 - 11 mmol/L | [facility] | | | GAP(ALB | | | LABORATORY | | | CORRECTED) | | | SERVICES, | | | | | | CORE | | + + + + + + | POTASSIUM | No Hemo | | [facility] | | | CMNT | | | LABORATORY | | | | | | SERVICES, | | | | | | CORE | | + + + + + + | BILI T CMNT | No Hemo | | [facility] | | | | | | LABORATORY | | | | | | SERVICES, | | | | | | CORE | | + + + + + + | AST CMNT | [...] | + + + + + | [facility] | [address] | [place] [address] | | | SERVICES, SCOOBY | [address] | | | + + + + + CBC AND AUTO DIFF (07/16/2016 11:59 PM PST) + + + + + + | Component | Value | Ref Range | Performed | Pathologist | | | | | At | Signature | + + + + + + | WHITE CELL | 8.34 | 3.50 - 10.80 | [facility] | | | COUNT | | K/cu mm | LABORATORY | | | | | | SERVICES, | | | | | | CORE | | + + + + + + | RED CELL | 2.95 (L) | 4.00 - 5.20 | [facility] | | | COUNT | | M/cu mm | LABORATORY | | | | | | SERVICES, | | | | | | CORE | | + + + + + + | HEMOGLOBIN | 9.1 (L) | 12.0 - 16.0 | [facility] | | | | | g/dL | LABORATORY | | | | | | SERVICES, | | | | | | CORE | | + + + + + + | HEMATOCRIT | 26.6 (L) | 36.0 - 46.0 % | [...] + + + + | MCHC | 34.2 | 33.0 - 35.5 | [facility] | | | | | g/dL | LABORATORY | | | | | | SERVICES, | | | | | | CORE | | + + + + + + | RDW SD | 54.0 (H) | 35.1 - 46.3 fL | [facility] | | | | | | LABORATORY | | | | | | SERVICES, | | | | | | CORE | | + + + + + + | PLATELET | 212 | 150 - 400 K/cu | [facility] | | | COUNT | | mm | LABORATORY | | | | | | SERVICES, | | | | | | CORE | | + + + + + + | MPV | 10.4 | 9.7 - 12.3 fL | [facility] [...] + + + + | NEUTROPHIL | 91.1 (H) | 50.0 - 70.0 % | [facility] | | | % | | | LABORATORY | | | | | | SERVICES, | | | | | | CORE | | + + + + + + | LYMPHOCYTE | 2.8 (L) | 18.0 - 42.0 % | [facility] | | | % | | | LABORATORY | | | | | | SERVICES, | | | | | | CORE | | + + + + + + | MONOCYTE % | 4.9 | 3.5 - 9.0 % | [facility] | | | | | | LABORATORY | | | | | | SERVICES, | | | | | | CORE | | + + + + + + | EOS % | 0.0 (L) | 1.0 - 3.0 % | [facility] | | | | | | LABORATORY | | | | | | SERVICES, | | | | | | CORE | | + + + + + + | BASO % | 0.1 | 0.0 - 2.0 % | [facility] | | | | | | LABORATORY | | | | | | SERVICES, | | | | | | CORE | | + + + + + + | IG% | 1.1 (H)Comment: Immature | 0.0 - 0.6 % [...] + + + + | NEUTROPHIL | 7.60 | 1.80 - 7.70 | [facility] | | | # | | K/cu mm | LABORATORY | | | | | | SERVICES, | | | | | | CORE | | + + + + + + | LYMPHOCYTE | 0.23 (L) | 1.00 - 4.80 | [facility] | | | # | | K/cu mm | LABORATORY | | | | | | SERVICES, | | | | | | CORE | | + + + + + + | MONOCYTE # | 0.41 | 0.10 - 0.90 | [facility] | | | | | K/cu mm | LABORATORY | | | | | | SERVICES, | | | | | | CORE | | + + + + + + | EOS # | 0.00 | 0.00 - 0.50 | [facility] | [...] + + + + | IG# | 0.09 (H) | 0.00 - 0.03 | [facility] | [...] | + + + + + | [facility] | [address] | [place] [address] | | | SERVICES, CORE | [address] | | | + + + + + PHOSPHORUS, PLASMA (07/16/2016 11:59 PM PST) + +-------+ + + + | Component | Value | Ref Range | Performed | Pathologist | | | | | At | Signature | + +-------+ + + + | PHOSPHORUS, | 3.6 | 2.4 - 4.7 mg/dL | [facility] [...] | + + + + + | [facility] | [address] | [place] [address] | | | SERVICES, CORE | [address] | | | + + + + + MAGNESIUM, PLASMA (07/16/2016 11:59 PM PST) + +-------+ + + + | Component | Value | Ref Range | Performed | Pathologist | | | | | At | Signature | + +-------+ + + + | MAGNESIUM,P | 1.9 | 1.8 - 2.5 mg/dL | [facility] | | | L[facility]MA | | | [...] | + + + + + | [facility] | [address] | [place] [address] | | | SERVICES, CORE | [address] | | | + + + + + COMPLETE METABOLIC SET (NA,K,CL,CO2,BUN,CREAT,GLUC,CA,AST,ALT,BILI TOTAL,ALK PHOS,ALB,PROT TOTAL) (07/16/2016 11:59 PM PST) + +---------+ + + + | Component | Value | Ref Range | Performed | Pathologist | | | | | At | Signature | + +---------+ + + + | GLUCOSE, | 120 (H) | 60 - 99 mg/dL | [facility] | | | PLASMA | | | LABORATORY | | | (LAB) | | | SERVICES, | | | | | | CORE | | + +---------+ + + + | BUN, PLASMA | 13 | 6 - 20 mg/dL | [facility] | | | (LAB) | | | LABORATORY | | | | | | SERVICES, | | | | | | CORE | | + +---------+ + + + | CREATININE | 0.63 | 0.60 - 1.10 | [facility] | | | PLASMA | | mg/dL | LABORATORY | | | (LAB) | | | SERVICES, | | | | | | CORE | | + +---------+ + + + | EGFR | >60 | >60 mL/min | [facility] | | | - | | | LABORATORY | | | SURINAMESE | | | SERVICES, | | | | | | CORE | | + +---------+ + + + | EGFR NON | >60 | >60 mL/min | [facility] | | | -RAOUL | | | LABORATORY | | | RICAN | | | SERVICES, | | | | | | CORE | | + +---------+ + + + | SODIUM, | 144 | 136 - 145 | [facility] | | | PLASMA | | mmol/L | LABORATORY | | | (LAB) | | | SERVICES, | | | | | | CORE | | + +---------+ + + + | POTASSIUM, | 3.8 | 3.4 - 5.0 | [facility] | | | PLASMA | | mmol/L | LABORATORY | | | (LAB) | | | SERVICES, | | | | | | CORE | | + +---------+ + + + | CHLORIDE, | 112 (H) | 97 - 108 mmol/L | [facility] [...] +---------+ + + + | CALCIUM, | 8.7 | 8.6 - 10.2 | [facility] | | | PLASMA | | mg/dL | LABORATORY | | | (LAB) | | | SERVICES, | | | | | | CORE | | + +---------+ + + + | CALCIUM(ALB | 9.2 | 8.6 - 10.2 | [facility] | [...] +---------+ + + + | TOTAL | 6.1 (L) | 6.4 - 8.2 g/dL | [facility] | | | PROTEIN, | | | LABORATORY | | | PLASMA | | | SERVICES, | | | (LAB) | | | CORE | | + +---------+ + + + | ALBUMIN, | 3.4 (L) | 3.5 - 4.7 g/dL | [facility] | | | PLASMA | | | LABORATORY | | | (LAB) | | | SERVICES, | | | | | | CORE | | + +---------+ + + + | ALK PHOS | 85 | 42 - 98 U/L | [facility] | | | | | | LABORATORY | | | | | | SERVICES, | | | | | | CORE | | + +---------+ + + + | AST(SGOT) | 8 | <=41 U/L | [facility] | | | | | | LABORATORY | | | | | | SERVICES, | | | | | | CORE | | + +---------+ + + + | ALT (SGPT) | 13 | <=60 U/L | [facility] | | | | | | LABORATORY | | | | | | SERVICES, | | | | | | CORE | | + +---------+ + + + | ANION GAP | 9 | mmol/L | [facility] | | | | | | LABORATORY | | | | | | SERVICES, | | | | | | CORE | | + +---------+ + + + | ANION | 10 | 4 - 11 mmol/L | [facility] [...] | + + + + + | [facility] | [address] | [place] [address] | | | SERVICES, CORE | [address] | | | + + + + + VASC LAB VENOUS DUPLEX LOWER EXTREMITY BILAT COMP (07/16/2016 12:04 PM PST) + + + + + + | Component | Value | Ref Range | Performed | Pathologist | | | | | At | Signature | + + + + + + | VASC LAB | Bilateral: The duplex | | | | | VENOUS | scanner was used to | | | | | DUPLEX | examine the deep and | | | | | LOWER | superficialveins of the | | | | | EXTREMITY | right and left lower | | | | | BILATERAL | extremities. The | | | | | COMPLETE | right peroneal tibial | | | | | | veinis not compressible | | | | | | with thrombus | | | | | | visualized. The left | | | | | | femoral vein is | | | | | | verysmall in | | | | | | size. All other | | | | | | visualized veins are | | | | | | patent bilaterally with | | | | | | normalflows and | | | | | | responses to | | | | | | augmentation and | | | | | | compression maneuvers | | | | | | and no thrombusis noted. | | | | | | Conclusions: A venous | | | | | | examination of the | | | | | | bilateral lower | | | | | | extremitiesdemonstrating | | | | | | :RIGHT: There is deep | | | | | | vein thrombosis in an | | | | | | axial calf vein without | | | | | | extensioninto the | | | | | | popliteal vein. No | | | | | | other thrombi were | | | | | | detected.LEFT: There | | | | | | is no deep or | | | | | | superficial vein | | | | | | thrombosis | | | | | | identified. The | | | | | | femoralvein is very | | | | | | small in diameter. | | | | | | Attending Radiologists: | | | | | | SARY POTTER | | | | | | MDAuthor: SARY | | | | | | MD TARIQ I have | | | | | | personally viewed this | | | | | | procedure/exam, reviewed | | | | | | this report, and | | | | | | madechanges to it where | | | | | | appropriate. | | | | | | Final/Electronically | | | | | | signed / SARY | | | | | | TARIQ 07/16/2016 13:53 | | | | | | PM Preliminary / | | | | | | SARY POTTER | | | | | | 07/16/2016 11:53 AM | | | | + + + + + + + + | Specimen | + + | | + + + +---------+ + + | Performing | Address | City/State/Zipcode | Phone Number | | Organization | | | | + +---------+ + + | [facility] DEPARTMENT OF | | | | | RADIOLOGY | | | | + +---------+ + + CBC AND AUTO DIFF (07/16/2016 1:50 AM PST) + + + + + + | Component | Value | Ref Range | Performed | Pathologist | | | | | At | Signature | + + + + + + | WHITE CELL | 10.38 | 3.50 - 10.80 | [facility] | | | COUNT | | K/cu mm | LABORATORY | | | | | | SERVICES, | | | | | | CORE | | + + + + + + | RED CELL | 3.39 (L) | 4.00 - 5.20 | [facility] | | | COUNT | | M/cu mm | LABORATORY | | | | | | SERVICES, | | | | | | CORE | | + + + + + + | HEMOGLOBIN | 10.3 (L) | 12.0 - 16.0 | [facility] | | | | | g/dL | LABORATORY | | | | | | SERVICES, | | | | | | CORE | | + + + + + + | HEMATOCRIT | 30.4 (L) | 36.0 - 46.0 % | [facility] | | | | | | LABORATORY | | | | | | SERVICES, | | | | | | CORE | | + + + + + + | MCV | 89.7 | 80.0 - 96.0 fL | [facility] [...] + + + | RDW SD | 52.9 (H) | 35.1 - 46.3 fL | [facility] | | | | | | LABORATORY | | | | | | SERVICES, | | | | | | CORE | | + + + + + + | PLATELET | 196 | 150 - 400 K/cu | [facility] | | | COUNT | | mm | LABORATORY | | | | | | SERVICES, | | | | | | CORE | | + + + + + + | MPV | 10.3 | 9.7 - 12.3 fL | [facility] [...] + + + + | NEUTROPHIL | 93.6 (H) | 50.0 - 70.0 % | [facility] | | | % | | | LABORATORY | | | | | | SERVICES, | | | | | | CORE | | + + + + + + | LYMPHOCYTE | 4.3 (L) | 18.0 - 42.0 % | [facility] | | | % | | | LABORATORY | | | | | | SERVICES, | | | | | | CORE | | + + + + + + | MONOCYTE % | 0.8 (L) | 3.5 - 9.0 % | [facility] | | | | | | LABORATORY | | | | | | SERVICES, | | | | | | CORE | | + + + + + + | EOS % | 0.0 (L) | 1.0 - 3.0 % | [facility] | | | | | | LABORATORY | | | | | | SERVICES, | | | | | | CORE | | + + + + + + | BASO % | 0.1 | 0.0 - 2.0 % | [facility] [...] + + + + | NEUTROPHIL | 9.72 (H) | 1.80 - 7.70 | [facility] | | | # | | K/cu mm | LABORATORY | | | | | | SERVICES, | | | | | | CORE | | + + + + + + | LYMPHOCYTE | 0.45 (L) | 1.00 - 4.80 | [facility] | | | # | | K/cu mm | LABORATORY | | | | | | SERVICES, | | | | | | CORE | | + + + + + + | MONOCYTE # | 0.08 (L) | 0.10 - 0.90 | [facility] | | | | | K/cu mm | LABORATORY | | | | | | SERVICES, | | | | | | CORE | | + + + + + + | EOS # | 0.00 | 0.00 - 0.50 | [facility] | [...] + + + + | IG# | 0.12 (H) | 0.00 - 0.03 | [facility] | [...] reference ranges effective June 30, 2016. | [facility] | | Immature Granulocytes (IG) include metamyelocytes, [...] | + + + + + | [facility] LABORATORY | [address] | [place] [address] | | | SERVICES, CORE | [address] | | | + + + + + PHOSPHORUS, PLASMA (07/16/2016 1:50 AM PST) + +---------+ + + + | Component | Value | Ref Range | Performed | Pathologist | | | | | At | Signature | + +---------+ + + + | PHOSPHORUS, | 2.2 (L) | 2.4 - 4.7 mg/dL | [facility] [...] | + + + + + | [facility] | [address] | [place] [address] | | | ELISA, [place] | [address] | | | + + + + + MAGNESIUM, PLASMA (07/16/2016 1:50 AM PST) + +-------+ + + + | Component | Value | Ref Range | Performed | Pathologist | | | | | At | Signature | + +-------+ + + + | MAGNESIUM,P | 1.8 | 1.8 - 2.5 mg/dL | [facility] | | | [place] | | | LABORATORY | | | | | | ELISA, | | | | | | CORE | | + +-------+ + + + + + | Specimen | + + | Blood | + + + + + + + | Performing | Address | City/State/Zipcode | Phone Number | | Organization | | | | + + + + + | [facility] | [address] | [place] [address] | | | SERVICES, CORE | [address] | | | + + + + + COMPLETE METABOLIC SET (NA,K,CL,CO2,BUN,CREAT,GLUC,CA,AST,ALT,BILI TOTAL,ALK PHOS,ALB,PROT TOTAL) (07/16/2016 1:50 AM PST) + +---------+ + + + | Component | Value | Ref Range | Performed | Pathologist | | | | | At | Signature | + +---------+ + + + | GLUCOSE, | 162 (H) | 60 - 99 mg/dL | [facility] | | | PLASMA | | | LABORATORY | | | (LAB) | | | SERVICES, | | | | | | CORE | | + +---------+ + + + | BUN, PLASMA | 12 | 6 - 20 mg/dL | [facility] | | | (LAB) | | | LABORATORY | | | | | | SERVICES, | | | | | | CORE | | + +---------+ + + + | CREATININE | 0.71 | 0.60 - 1.10 | [facility] | | | PLASMA | | mg/dL | LABORATORY | | | (LAB) | | | SERVICES, | | | | | | CORE | | + +---------+ + + + | EGFR | >60 | >60 mL/min | [facility] | | | - | | | LABORATORY | | | SURINAMESE | | | SERVICES, | | | | | | CORE | | + +---------+ + + + | EGFR NON | >60 | >60 mL/min | [facility] | | | -[facility] | | | LABORATORY | | | RICAN | | | SERVICES, | | | | | | CORE | | + +---------+ + + + | SODIUM, | 141 | 136 - 145 | [facility] | | | PLASMA | | mmol/L | LABORATORY | | | (LAB) | | | SERVICES, | | | | | | CORE | | + +---------+ + + + | POTASSIUM, | 3.6 | 3.4 - 5.0 | [facility] | | | PLASMA | | mmol/L | LABORATORY | | | (LAB) | | | SERVICES, | | | | | | CORE | | + +---------+ + + + | CHLORIDE, | 110 (H) | 97 - 108 mmol/L | [facility] | | | PLASMA | | | LABORATORY | | | (LAB) | | | SERVICES, | | | | | | CORE | | + +---------+ + + + | TOTAL CO2, | 20 (L) | 21 - 32 mmol/L | [facility] | | | PLASMA | | | LABORATORY | | | (LAB) | | | SERVICES, | | | | | | CORE | | + +---------+ + + + | CALCIUM, | 8.5 (L) | 8.6 - 10.2 | [facility] | | | PLASMA | | mg/dL | LABORATORY | | | (LAB) | | | SERVICES, | | | | | | CORE | | + +---------+ + + + | CALCIUM(ALB | 8.7 | 8.6 - 10.2 | [facility] | [...] +---------+ + + + | TOTAL | 6.5 | 6.4 - 8.2 g/dL | [facility] [...] +---------+ + + + | AST(SGOT) | 11 | <=41 U/L | [facility] | | | | | | LABORATORY | | | | | | SERVICES, | | | | | | CORE | | + +---------+ + + + | ALT (SGPT) | 18 | <=60 U/L | [facility] | | | | | | LABORATORY | | | | | | SERVICES, | | | | | | CORE | | + +---------+ + + + | ANION GAP | 11 | mmol/L | [facility] | | | | | | LABORATORY | | | | | | SERVICES, | | | | | | CORE | | + +---------+ + + + | ANION | 11 | 4 - 11 mmol/L | [facility] [...] | + + + + + | [facility] | [address] | [place] [address] | | | SERVICES, CORE | [address] | | | + + + + + MCKENZIE (XENIA) BY PCR (07/15/2016 9:36 PM PST) + + + + + + | Component | Value | Ref Range | Performed | Pathologist | | | | | At | Signature | + + + + + + | VRE BY PCR | Negative for van A gene | Negative for | [facility] | | | | | van A gene | LABORATORY | | | | | | SERVICES, | | | | | | CORE | | + + + + + + + + | Specimen | + + | Swab | + + + + + + + | Performing | Address | City/State/Zipcode | Phone Number | | Organization | | | | + + + + + | [facility] | [address] | [place] [address] | | | [place] [address] | [address] | | | + + + + + CBC AND AUTO DIFF (07/15/2016 4:11 PM PST) + + + + + + | Component | Value | Ref Range | Performed | Pathologist | | | | | At | Signature | + + + + + + | WHITE CELL | 6.69 | 3.50 - 10.80 | [facility] | | | COUNT | | K/cu mm | LABORATORY | | | | | | SERVICES, | | | | | | CORE | | + + + + + + | RED CELL | 3.35 (L) | 4.00 - 5.20 | [facility] | | | COUNT | | M/cu mm | LABORATORY | | | | | | SERVICES, | | | | | | CORE | | + + + + + + | HEMOGLOBIN | 10.0 (L) | 12.0 - 16.0 | [facility] | | | | | g/dL | LABORATORY | | | | | | SERVICES, | | | | | | CORE | | + + + + + + | HEMATOCRIT | 30.4 (L) | 36.0 - 46.0 % | [facility] | | | | | | LABORATORY | | | | | | SERVICES, | | | | | | CORE | | + + + + + + | MCV | 90.7 | 80.0 - 96.0 fL | [facility] | | | | | | LABORATORY | | | | | | SERVICES, | | | | | | CORE | | + + + + + + | MCHC | 32.9 | 33.0 - 35.5 | [facility] | | | | | g/dL | LABORATORY | | | | | | SERVICES, | | | | | | CORE | | + + + + + + | RDW SD | 54.0 (H) | 35.1 - 46.3 fL | [facility] | | | | | | LABORATORY | | | | | | SERVICES, | | | | | | CORE | | + + + + + + | PLATELET | 228 | 150 - 400 K/cu | [facility] | | | COUNT | | mm | LABORATORY | | | | | | SERVICES, | | | | | | CORE | | + + + + + + | MPV | 10.7 | 9.7 - 12.3 fL | [facility] | | | | | | LABORATORY | | | | | | SERVICES, | | | | | | CORE | | + + + + + + | NRBC% | 0.3 | 0.0 - 0.3 % | [facility] | | | | | | LABORATORY | | | | | | SERVICES, | | | | | | CORE | | + + + + + + | NRBC# | 0.02 | 0.00 - 0.02 | [facility] | | | | | K/cu mm | LABORATORY | | | | | | SERVICES, | | | | | | CORE | | + + + + + + | NEUTROPHIL | 78.3 (H) | 50.0 - 70.0 % | [facility] | | | % | | | LABORATORY | | | | | | SERVICES, | | | | | | CORE | | + + + + + + | LYMPHOCYTE | 9.9 (L) | 18.0 - 42.0 % | [facility] | | | % | | | LABORATORY | | | | | | SERVICES, | | | | | | CORE | | + + + + + + | MONOCYTE % | 10.5 (H) | 3.5 - 9.0 % | [facility] | | | | | | LABORATORY | | | | | | SERVICES, | | | | | | CORE | | + + + + + + | EOS % | 0.3 (L) | 1.0 - 3.0 % | [facility] | | | | | | LABORATORY | | | | | | SERVICES, | | | | | | CORE | | + + + + + + | BASO % | 0.1 | 0.0 - 2.0 % | [facility] | | | | | | LABORATORY | | | | | | SERVICES, | | | | | | CORE | | + + + + + + | IG% | 0.9 (H)Comment: Immature | 0.0 - 0.6 % [...] + + + + | NEUTROPHIL | 5.24 | 1.80 - 7.70 | [facility] | | | # | | K/cu mm | LABORATORY | | | | | | SERVICES, | | | | | | CORE | | + + + + + + | LYMPHOCYTE | 0.66 (L) | 1.00 - 4.80 | [facility] | | | # | | K/cu mm | LABORATORY | | | | | | SERVICES, | | | | | | CORE | | + + + + + + | MONOCYTE # | 0.70 | 0.10 - 0.90 | [facility] | | | | | K/cu mm | LABORATORY | | | | | | SERVICES, | | | | | | CORE | | + + + + + + | EOS # | 0.02 | 0.00 - 0.50 | [facility] | [...] + + + + | IG# | 0.06 (H) | 0.00 - 0.03 | [facility] | [...] reference ranges effective June 30, 2016. | [facility] | | Immature Granulocytes (IG) include metamyelocytes, [...] | + + + + + | [facility] | [address] | [place] [address] | | | SERVICES, CORE | [address] | | | + + + + + HAPTOGLOBIN, SERUM (07/15/2016 4:11 PM PST) + +-------+ + + + | Component | Value | Ref Range | Performed | Pathologist | | | | | At | Signature | + +-------+ + + + | HAPTOGLOBIN | 154 | 30 - 200 mg/dL | [facility] [...] | + + + + + | [facility] - | [address] | [place] [address] | | | [place] | | | | + + + + + COMPLEMENT ACTIVITY ENZYME IMMUNOASSAY, TOTAL (07/15/2016 4:11 PM PST) + + + + + [...] | | | | | | Cory, [place] [address] | | | | | | [phone]. | | | | | | jeimy, Raleigh Ramsay, | | | | | | MD Lab. Director | | | | + + + + + + + + | Specimen | + + | Blood | + + + + + + + | Performing | Address | City/State/Zipcode | Phone Number | | Organization | | | | + + + + + | [facility] | [address] | [place], [place] | | | [facility] | | [address] | | + + + + + ANTIBODY SCREEN (07/15/2016 4:11 PM PST) + + + + + + | Component | Value | Ref Range | Performed | Pathologist | | | | | At | Signature | + + + + + + | Antibody | Negative | | [facility] | | | Screen | | | LABORATORY | | | | | | SERVICES, | | | | | | TRANSFUSION | | | | | | MEDICINE | | + + + + + + + + | Specimen | + + | Blood | + + + + + + + | Performing | Address | City/State/Zipcode | Phone Number | | Organization | | | | + + + + + | [facility] | [address] | [place] [address] | | | SERVICES, | [address] | | | | TRANSFUSION MEDICINE | | | | + + + + + ABO & RH TYPE (07/15/2016 4:11 PM PST) + + + + + + | Component | Value | Ref Range | Performed | Pathologist | | | | | At | Signature | + + + + + + | ABO Group | A | | [facility] | | | | | | LABORATORY | | | | | | SERVICES, | | | | | | TRANSFUSION | | | | | | MEDICINE | | + + + + + + | Rh Type | Positive | | [facility] | | | | | | LABORATORY | | | | | | SERVICES, | | | | | | TRANSFUSION | | | | | | MEDICINE | | + + + + + + + + | Specimen | + + | Blood | + + + + + + + | Performing | Address | City/State/Zipcode | Phone Number | | Organization | | | | + + + + + | [facility] | [address] | [place] [address] | | | SERVICES, | [address] | | | | TRANSFUSION MEDICINE | | | | + + + + + INR (07/15/2016 4:11 PM PST) + +-------+ + + + | Component | Value | Ref Range | Performed | Pathologist | | | | | At | Signature | + +-------+ + + + | INR | 1.13 | 0.90 - 1.20 INR | [facility] [...] mech. valves (2.5 - 3.5) INR | SERVICES, CORE | + + + + + + + + | Performing | Address | City/State/Zipcode | Phone Number | | Organization | | | | + + + + + | [facility] | [address] | [place] [address] | | | SERVICES, CORE | [address] | | | + + + + + LDH TOTAL, PLASMA (07/15/2016 4:11 PM PST) + +---------+ + + + | Component | Value | Ref Range | Performed | Pathologist | | | | | At | Signature | + +---------+ + + + | LD TOTAL, | 236 | <=250 U/L | [facility] | | [...] [facility] | [address] | [place] [address] | | | SERVICES, CORE | [address] | | | + + + + + BILIRUBIN DIRECT (07/15/2016 4:11 PM PST) + +---------+ + + + [...] | + + + + + | [facility] | [address] | [place] [address] | | | SERVICES, CORE | [address] | | | + + + + + URIC ACID, PLASMA (07/15/2016 4:11 PM PST) + +-------+ + + + | Component | Value | Ref Range | Performed | Pathologist | | | | | At | Signature | + +-------+ + + + | URIC ACID, | 3.4 | 2.5 - 6.2 mg/dL | [facility] [...] [facility] | [address] | [place] [address] | | | SERVICES, CORE | [address] | | | + + + + + PHOSPHORUS, PLASMA (07/15/2016 4:11 PM PST) + +-------+ + + + | Component | Value | Ref Range | Performed | Pathologist | | | | | At | Signature | + +-------+ + + + | PHOSPHORUS, | 3.3 | 2.4 - 4.7 mg/dL | [facility] [...] | + + + + + | [facility] | [address] | [place] [address] | | | SERVICES, CORE | [address] | | | + + + + + MAGNESIUM, PLASMA (07/15/2016 4:11 PM PST) + +-------+ + + + | Component | Value | Ref Range | Performed | Pathologist | | | | | At | Signature | + +-------+ + + + | MAGNESIUM,P | 2.0 | 1.8 - 2.5 mg/dL | [facility] | | | [facility] | | | LABORATORY | | | | | | ELISA, | | | | | | [facility] | | + +-------+ + + + + + | Specimen | + + | Blood | + + + + + + + | Performing | Address | City/State/Zipcode | Phone Number | | Organization | | | | + + + + + | [facility] | [address] | [place] [address] | | | SERVICES, CORE | [address] | | | + + + + + COMPLETE METABOLIC SET (NA,K,CL,CO2,BUN,CREAT,GLUC,CA,AST,ALT,BILI TOTAL,ALK PHOS,ALB,PROT TOTAL) (07/15/2016 4:11 PM PST) + +---------+ + + + | Component | Value | Ref Range | Performed | Pathologist | | | | | At | Signature | + +---------+ + + + | GLUCOSE, | 100 (H) | 60 - 99 mg/dL | [facility] | | | PLASMA | | | LABORATORY | | | (LAB) | | | SERVICES, | | | | | | CORE | | + +---------+ + + + | BUN, PLASMA | 14 | 6 - 20 mg/dL | [facility] | | | (LAB) | | | LABORATORY | | | | | | SERVICES, | | | | | | CORE | | + +---------+ + + + | CREATININE | 0.72 | 0.60 - 1.10 | [facility] | | | PLASMA | | mg/dL | LABORATORY | | | (LAB) | | | SERVICES, | | | | | | CORE | | + +---------+ + + + | EGFR | >60 | >60 mL/min | [facility] | | | - | | | LABORATORY | | | SURINAMESE | | | SERVICES, | | | | | | CORE | | + +---------+ + + + | EGFR NON | >60 | >60 mL/min | [facility] | | | -RAOUL | | | LABORATORY | | | RICAN | | | SERVICES, | | | | | | CORE | | + +---------+ + + + | SODIUM, | 141 | 136 - 145 | [facility] | | | PLASMA | | mmol/L | LABORATORY | | | (LAB) | | | SERVICES, | | | | | | CORE | | + +---------+ + + + | POTASSIUM, | 3.9 | 3.4 - 5.0 | [facility] | | | PLASMA | | mmol/L | LABORATORY | | | (LAB) | | | SERVICES, | | | | | | CORE | | + +---------+ + + + | CHLORIDE, | 109 (H) | 97 - 108 mmol/L | [facility] | | | PLASMA | | | LABORATORY | | | (LAB) | | | SERVICES, | | | | | | CORE | | + +---------+ + + + | TOTAL CO2, | 21 | 21 - 32 mmol/L | [facility] | | | PLASMA | | | LABORATORY | | | (LAB) | | | SERVICES, | | | | | | CORE | | + +---------+ + + + | CALCIUM, | 8.9 | 8.6 - 10.2 | [facility] | | | PLASMA | | mg/dL | LABORATORY | | | (LAB) | | | SERVICES, | | | | | | CORE | | + +---------+ + + + | CALCIUM(ALB | 9.2 | 8.6 - 10.2 | [facility] | | | CORRECTED) | | mg/dL | LABORATORY | | | | | | SERVICES, | | | | | | CORE | | + +---------+ + + + | BILIRUBIN | 0.2 (L) | 0.3 - 1.2 mg/dL | [facility] [...] +---------+ + + + | ALBUMIN, | 3.6 | 3.5 - 4.7 g/dL | [facility] [...] +---------+ + + + | AST(SGOT) | 14 | <=41 U/L | [facility] | | | | | | LABORATORY | | | | | | SERVICES, | | | | | | CORE | | + +---------+ + + + | ALT (SGPT) | 17 | <=60 U/L | [facility] | | | | | | LABORATORY | | | | | | SERVICES, | | | | | | CORE | | + +---------+ + + + | ANION GAP | 11 | mmol/L | [facility] | | | | | | LABORATORY | | | | | | SERVICES, | | | | | | CORE | | + +---------+ + + + | ANION | 12 (H) | 4 - 11 mmol/L | [facility] [...] | + + + + + | [facility] | [address] | [place] [address] | | | SERVICES, CORE | [address] | | | + + + + + documented in this encounter Visit Diagnoses Not on filedocumented in this encounter Administered Medications + +--------+ +--------+------+------+ | Medication Order | MAR | Action | Dose | Rate | Site | | | Action | Date | | | | + +--------+ +--------+------+------+ | acetaminophen (TYLENOL) oral | Given | 08/03/20 | 650 mg | | | | suspension 325-650 mg 325-650 | | 16 12:19 | | | | | mg, oral, EVERY 4 HOURS | | AM PST | | | | | NEEDED, Starting 07/24/16 at | | | | | | | 1211, Until 08/07/16 at 1958, | | | | | | | mild pain, fever, blood product | | | | | | | premedication | | | | | | + +--------+ +--------+------+------+ +-------+ +--------+---+---+ | Given | 08/02/20 | 650 mg | | | | | 16 4:10 | | | | | | AM PST | | | | +-------+ +--------+---+---+ | Given | 08/01/20 | 650 mg | | | | | 16 8:44 | | | | | | PM PST | | | | +-------+ +--------+---+---+ +---+---+ | | | +---+---+ + + + +------+---+---+ | alteplase (CATHFLO ACTIVASE) | Line | 08/07/20 | 2 mg | | | | injection 2 mg 2 mg, | Lock | 16 6:51 | | | | | Intracatheter, NEEDED, | Instille | AM PST | | | | | Starting Nia 07/15/16 at 1520, | d | | | | | | Until 08/07/16 at 1957, | | | | | | | central catheter sluggishness | | | | | | + + + +------+---+---+ + + +------+---+---+ | Line Lock Instilled | 08/07/20 | 2 mg | | | | | 16 1:45 | | | | | | AM PST | | | | + + +------+---+---+ + +---+ | | | + +---+ | aluminum-magnesium | | | hydroxide-simethicone (MAALOX; | | | MYLANTA) 200-200-20 mg/5 mL | | | suspension 30 mL 30 mL, oral, | | | EVERY 3 HOURS NEEDED, Starting | | | Nia 07/15/16 at 1520, Until Sat | | | 08/07/16 at 1957, | | | gastrointestinal upset | | + +---+ | | | + +---+ + +-------+ +---------+---+ + | bacitracin irrigation | Given | 07/30/20 | 50,000 | | Surgical | | INTRAPROCEDURE PRN, Starting Fri | | 16 8:43 | Units | | Site | | 07/30/16 at 0843, Until Fri | | AM PST | | | | | 07/30/16 at 0851 | | | | | | + +-------+ +---------+---+ + +---+---+ | | | +---+---+ + +-------+ +-------+---+ + | bupivacaine-EPINEPHrine | Given | 07/30/20 | 15 mL | | Surgical | | (MARCAINE-EPINEPHRINE) 0.25 | | 16 8:43 | | | Site | | %-1:200,000 injection | | AM PST | | | | | INTRAPROCEDURE PRN, Starting Fri | | | | | | | 16 at 0843, Until Fri | | | | | | | 16 at 0851 | | | | | | + +-------+ +-------+---+ + +---+---+ | | | +---+---+ + +-------+ +-------+---+---+ | diphenhydrAMINE (BENADRYL) oral | Given | 08/06/20 | 25 mg | | | | solution 25-50 mg 25-50 mg, | | 16 12:16 | | | | | oral, EVERY 6 HOURS NEEDED, | | PM PST | | | | | Starting 08/04/16 at 2147, | | | | | | | Until 08/07/16 at 1958, | | | | | | | nausea/vomiting | | | | | | + +-------+ +-------+---+---+ +---+---+ | | | +---+---+ + +-------+ +-------+---+---+ | | Given | 07/26/20 | 15 mL | | | | [id number]-[id number] | | 16 9:57 | | | | | (SPECIAL MOUTHWASH) suspension | | AM PST | | | | | (compound) 10-15 mL 10-15 mL, | | | | | | | oral, EVERY 1 HOUR NEEDED, | | | | | | | Starting Nia 07/15/16 at 1520, | | | | | | | Until 08/07/16 at 1958, sore | | | | | | | mouth, oral/esophageal pain | | | | | | + +-------+ +-------+---+---+ +-------+ +-------+---+---+ | Given | 07/26/20 | 15 mL | | | | | 16 4:48 | | | | | | AM PST | | | | +-------+ +-------+---+---+ | Given | 07/25/20 | 15 mL | | | | | 16 9:13 | | | | | | PM PST | | | | +-------+ +-------+---+---+ +---+---+ | | | +---+---+ + +-------+ +-------+---+--------+ | enoxaparin (LOVENOX) injection | Given | 08/06/20 | 40 mg | | Right | | 40 mg 40 mg, subcutaneous, EVERY | | 16 9:20 | | | Leg | | EVENING, First dose on Fri | | PM PST | | | | | 07/30/16 at 2100, Until | | | | | | | Discontinued | | | | | | + +-------+ +-------+---+--------+ +-------+ +-------+---+ + | Given | 08/05/20 | 40 mg | | Right | | | 16 8:20 | | | Leg | | | PM PST | | | | +-------+ +-------+---+ + | Given | 08/04/20 | 40 mg | | Left Leg | | | 16 9:06 | | | | | | PM PST | | | | +-------+ +-------+---+ + +---+---+ | | | +---+---+ + +-------+ +-------+---+---+ | escitalopram oxalate (LEXAPRO) | Given | 08/06/20 | 10 mg | | | | tablet 10 mg 10 mg, oral, EVERY | | 16 9:21 | | | | | EVENING, First dose on Nia | | PM PST | | | | | 07/15/16 at 2100, Until | | | | | | | Discontinued | | | | | | + +-------+ +-------+---+---+ +-------+ +-------+---+---+ | Given | 08/05/20 | 10 mg | | | | | 16 8:21 | | | | | | PM PST | | | | +-------+ +-------+---+---+ | Given | 08/04/20 | 10 mg | | | | | 16 9:07 | | | | | | PM PST | | | | +-------+ +-------+---+---+ +---+---+ | | | +---+---+ + +-------+ +-------+---+---+ | famotidine (PEPCID) tablet 20 | Given | 08/07/20 | 20 mg | | | | mg 20 mg, oral, TWICE DAILY, | | 16 9:01 | | | | | First dose on Tue08/06/16 at | | AM PST | | | | | 1200, Until Discontinued | | | | | | + +-------+ +-------+---+---+ +-------+ +-------+---+---+ | Given | 08/06/20 | 20 mg | | | | | 16 9:21 | | | | | | PM PST | | | | +-------+ +-------+---+---+ | Given | 08/06/20 | 20 mg | | | | | 16 3:25 | | | | | | PM PST | | | | +-------+ +-------+---+---+ +---+---+ | | | +---+---+ + +-------+ +---------+---+ + | filgrastim-zachary (RAMONA) | Given | 08/07/20 | 480 mcg | | Left Arm | | injection 480 mcg 480 mcg, | | 16 12:25 | | | | | subcutaneous, EVERY EVENING AT | | PM PST | | | | | 1700, First dose on 07/26/16 | | | | | | | at 1700, Until Discontinued | | | | | | + +-------+ +---------+---+ + +-------+ +---------+---+ + | Given | 08/06/20 | 480 mcg | | Left Arm | | | 16 6:20 | | | | | | PM PST | | | | +-------+ +---------+---+ + | Given | 08/05/20 | 480 mcg | | Left Arm | | | 16 4:31 | | | | | | PM PST | | | | +-------+ +---------+---+ + +---+---+ | | | +---+---+ + +-------+ +--------+---+---+ | fluconazole (DIFLUCAN) | Given | 08/07/20 | 400 mg | | | | suspension 400 mg 400 mg, oral, | | 16 9:00 | | | | | DAILY, First dose on 07/25/16 | | AM PST | | | | | at 0900, Until Discontinued | | | | | | + +-------+ +--------+---+---+ +-------+ +--------+---+---+ | Given | 08/06/20 | 400 mg | | | | | 16 9:58 | | | | | | AM PST | | | | +-------+ +--------+---+---+ | Given | 08/05/20 | 400 mg | | | | | 16 9:49 | | | | | | AM PST | | | | +-------+ +--------+---+---+ + +---+ | | | + +---+ | glycerin-mineral oil (LUBRIDERM | | | SENSITIVE LANOLIN FREE) lotion | | | topical, EVERY 2 HOURS NEEDED, | | | Starting Nia 07/15/16 at 1520, | | | Until 08/07/16 at 8, dry | | | skin | | + +---+ | | | + +---+ | haloperidol (HALDOL) liquid | | | 0.5-1.5 mg 0.5-1.5 mg, oral, | | | EVERY 4 HOURS NEEDED, Starting | | | 07/24/16 at 1213, Until Sat | | | 08/07/16 at 1957, alternate to | | | sakquqvsshvmvxm-MY-uj first line | | | is ukjbltjnvuv-BY-tu related to | | | agitation, restlessness, or | | | wakefulness | | + +---+ | | | + +---+ | haloperidol lactate (HALDOL) | | | injection 0.5-1 mg 0.5-1 mg, | | | intravenous, EVERY 4 HOURS | | | NEEDED, Starting Nia 07/15/16 at | | | 1830, Until 08/07/16 at 1957, | | | alternate to prochlorperazine | | | -OR- if first line is ineffective | | | -OR- if related to agitation, | | | restlessness, or wakefulness | | + +---+ | | | + +---+ + +-------+ + +---+---+ | heparin 10 unit/mL IV flush | Given | 07/30/20 | 50 Units | | | | syringe 50 Units 50 Units, | | 16 12:09 | | | | | intravenous, NEEDED, Starting | | AM PST | | | | | 07/16/16 at 0141, Until Sat | | | | | | | 08/07/16 at 1957, line patency | | | | | | + +-------+ + +---+---+ +-------+ + +---+---+ | Given | 07/28/20 | 50 Units | | | | | 16 11:28 | | | | | | PM PST | | | | +-------+ + +---+---+ | Given | 07/28/20 | 50 Units | | | | | 16 11:27 | | | | | | AM PST | | | | +-------+ + +---+---+ +---+---+ | | | +---+---+ + +-------+ +-------+---+---+ | heparin 100 unit/mL IV flush | Given | 07/29/20 | 500 | | | | 500 Units 500 Units, | | 16 2:57 | Units | | | | intravenous, NEEDED, Starting | | PM PST | | | | | 07/26/16 at 1837, Until Sat | | | | | | | 08/07/16 at 8, deaccessing | | | | | | | line/port | | | | | | + +-------+ +-------+---+---+ +---+---+ | | | +---+---+ + +-------+ +---+---+---+ | lidocaine (LMX 4) 4 % cream | Given | 07/29/20 | | | | | topical, NEEDED, Starting Sun | | 16 1:37 | | | | | 07/25/16 at 0849, Until Sat | | PM PST | | | | | 08/07/16 at 8, venipuncture/LP | | | | | | + +-------+ +---+---+---+ +---+---+ | | | +---+---+ + +-------+ +------+---+---+ | loperamide (IMODIUM A-D) 1 | Given | 08/04/ | 2 mg | | | | mg/7.5 mL liquid 2 mg 2 mg, | | 16 10:50 | | | | | oral, NEEDED, Starting Sat | | AM PST | | | | | 07/24/16 at 1214, Until Sat | | | | | | | 08/07/16 at 1958, diarrhea, after | | | | | | | each loose stool | | | | | | + +-------+ +------+---+---+ +-------+ +------+---+---+ | Given | 20 | 2 mg | | | | | 16 5:25 | | | | | | PM PST | | | | +-------+ +------+---+---+ | Given | 07/30/20 | 2 mg | | | | | 16 5:47 | | | | | | PM PST | | | | +-------+ +------+---+---+ +---+---+ | | | +---+---+ + +-------+ +------+---+---+ | LORazepam (ATIVAN) tablet 0.5-1 | Given | 08/07/20 | 1 mg | | | | mg 0.5-1 mg, oral, EVERY 6 | | 16 12:34 | | | | | HOURS NEEDED, Starting Sat | | PM PST | | | | | 08/07/16 at 1229, Until Sat | | | | | | | 08/07/16 at 1958, anxiety, | | | | | | | nausea/vomiting | | | | | | + +-------+ +------+---+---+ +---+---+ | | | +---+---+ + +---------+ +-----+ +---+ | magnesium sulfate in water IV | New Bag | 07/29/20 | 4 g | 25 mL/hr | | | (RTU) 4 g 4 g, intravenous, | | 16 3:12 | | | | | NEEDED, Starting Nia 07/15/16 at | | AM PST | | | | | 1520, Until 08/07/16 at 1958, | | | | | | | Mg level 1.3-1.6 mg/dL | | | | | | + +---------+ +-----+ +---+ +---------+ +-----+---+---+ | New Bag | 07/21/20 | 4 g | | | | | 16 5:28 | | | | | | AM PST | | | | +---------+ +-----+---+---+ + +---+ | | | + +---+ | magnesium sulfate IV 8 g 8 g, | | | intravenous, NEEDED, Starting | | | Nia 07/15/16 at 1520, Until Sat | | | 08/07/16 at 8, Mg level less | | | than or equal to 1.2 mg/dL | | + +---+ | | | + +---+ | naloxone (NARCAN) injection | | | intravenous, NEEDED, Starting | | | 07/27/16 at 1106, Until Sat | | | 08/07/16 at 8, over sedation | | + +---+ | | | + +---+ + +-------+ +---------+---+---+ | norethindrone (ORTHO MICRONOR) | Given | 08/07/20 | 0.35 mg | | | | tablet 0.35 mg 0.35 mg, oral, | | 16 9:02 | | | | | DAILY, First dose on [facility] 08/05/16 | | AM PST | | | | | at 1500, Until Discontinued | | | | | | + +-------+ +---------+---+---+ +-------+ +---------+---+---+ | Given | 08/06/20 | 0.35 mg | | | | | 16 9:58 | | | | | | AM PST | | | | +-------+ +---------+---+---+ | Given | 08/05/20 | 0.35 mg | | | | | 16 4:31 | | | | | | PM PST | | | | +-------+ +---------+---+---+ +---+---+ | | | +---+---+ + +-------+ +---+---+---+ | nystatin-zinc oxide-lidocaine | Given | 08/02/20 | | | | | (NDX) ointment (compound) | | 16 6:42 | | | | | topical, EVERY 1 HOUR NEEDED, | | PM PST | | | | | Starting Nia 07/15/16 at 1520, | | | | | | | Until 08/07/16 at 1958, | | | | | | | perirectal area redness | | | | | | + +-------+ +---+---+---+ +-------+ +---+---+---+ | Given | 08/02/20 | | | | | | 16 10:35 | | | | | | AM PST | | | | +-------+ +---+---+---+ | Given | 08/01/20 | | | | | | 16 4:40 | | | | | | PM PST | | | | +-------+ +---+---+---+ +---+---+ | | | +---+---+ + +-------+ +-------+---+---+ | OLANZapine (ZYPREXA ZITALO) | Given | 08/06/20 | 10 mg | | | | disintegrating tablet 10 mg 10 | | 16 9:21 | | | | | mg, oral, AT BEDTIME, First dose | | PM PST | | | | | on [facility] 07/29/16 at 2100, Until | | | | | | | Discontinued | | | | | | + +-------+ +-------+---+---+ +-------+ +-------+---+---+ | Given | 08/05/20 | 10 mg | | | | | 16 8:21 | | | | | | PM PST | | | | +-------+ +-------+---+---+ | Given | 08/04/20 | 10 mg | | | | | 16 9:07 | | | | | | PM PST | | | | +-------+ +-------+---+---+ +---+---+ | | | +---+---+ + +-------+ +------+---+---+ | ondansetron (ZOFRAN) injection | Given | 08/07/20 | 4 mg | | | | 4 mg 4 mg, intravenous, EVERY 12 | | 16 8:57 | | | | | HOURS, First dose on Sat | | AM PST | | | | | 07/24/16 at 2100, Until | | | | | | | Discontinued | | | | | | + +-------+ +------+---+---+ +-------+ +------+---+---+ | Given | 08/06/20 | 4 mg | | | | | 16 9:20 | | | | | | PM PST | | | | +-------+ +------+---+---+ | Given | 08/06/20 | 4 mg | | | | | 16 9:38 | | | | | | AM PST | | | | +-------+ +------+---+---+ +---+---+ | | | +---+---+ + +-------+ +-------+---+---+ | oxyCODONE (immediate release) | Given | 08/06/20 | 10 mg | | | | (ROXICODONE) liquid 5-10 mg 5-10 | | 16 8:03 | | | | | mg, oral, EVERY 4 HOURS | | AM PST | | | | | NEEDED, Starting 08/04/16 at | | | | | | | 1400, Until 08/07/16 at 1958, | | | | | | | moderate pain | | | | | | + +-------+ +-------+---+---+ +-------+ +------+---+---+ | Given | 08/05/20 | 5 mg | | | | | 16 8:40 | | | | | | PM PST | | | | +-------+ +------+---+---+ | Given | 08/05/20 | 5 mg | | | | | 16 7:47 | | | | | | PM PST | | | | +-------+ +------+---+---+ +---+---+ | | | +---+---+ + + + +--------+---+---+ | potassium chloride IV (central | Restarte | 08/07/20 | 40 mEq | | | | line) 40 mEq 40 mEq, | d | 16 8:58 | | | | | intravenous, NEEDED, Starting | | AM PST | | | | | 08/04/16 at 0825, Until Sat | | | | | | | 08/07/16 at 1958, potassium level | | | | | | | of 3-3.4 mmol/L. Administer if | | | | | | | patient intolerant of oral | | | | | | | medications. | | | | | | + + + +--------+---+---+ +---------+ +--------+---+---+ | New Bag | 08/07/20 | 40 mEq | | | | | 16 5:08 | | | | | | AM PST | | | | +---------+ +--------+---+---+ | New Bag | 08/06/20 | 40 mEq | | | | | 16 5:15 | | | | | | AM PST | | | | +---------+ +--------+---+---+ + +---+ | | | + +---+ | potassium chloride IV (central | | | line) 60 mEq 60 mEq, | | | intravenous, NEEDED, Starting | | | 08/04/16 at 0825, Until Sat | | | 08/07/16 at 1957, potassium level | | | less than or equal to 2.9 mmol/L | | + +---+ | | | + +---+ | potassium chloride SR (K-DUR) | | | tablet 40 mEq 40 mEq, oral, | | | NEEDED, Starting [facility] 07/15/16 at | | | 1520, Until 08/07/16 at 1957, | | | potassium level 3-3.4 mmol/L | | + +---+ | | | + +---+ + +---------+ +---------+-------+---+ | potassium phosphate IV 30 mmol | New Bag | 08/05/20 | 30 mmol | 52.5 | | | 30 mmol, intravenous, NEEDED, | | 16 4:34 | | mL/hr | | | Starting Tue08/04/16 at 0821, | | AM PST | | | | | Until 08/07/16 at 8, | | | | | | | Potassium less than or equal to | | | | | | | 3.4 mmol/L AND Phosphate less | | | | | | | than or equal to 2 mg/dL. | | | | | | + +---------+ +---------+-------+---+ + +---+ | | | + +---+ | potassium phosphate IV 40 mmol | | | 40 mmol, intravenous, NEEDED, | | | Starting 08/04/16 at 0821, | | | Until 08/07/16 at 8, | | | Potassium less than or equal to | | | 2.9 mmol/L AND Phosphate less | | | than or equal to 1.5 mg/dL. | | + +---+ | | | + +---+ | ramelteon (ROZEREM) tablet 8 mg | | | 8 mg, oral, AT BEDTIME | | | NEEDED, Starting Nia 07/15/16 at | | | 1520, Until 08/07/16 at 1957, | | | insomnia | | + +---+ | | | + +---+ | saliva substitute (MOUTH KOTE) | | | spray 1 spray 1 spray, oral, | | | EVERY 1 HOUR NEEDED, Starting | | | Nia 07/15/16 at 1520, Until Sat | | | 08/07/16 at 1957, dry mouth | | + +---+ | | | + +---+ | senna-docusate (SENOKOT S) | | | 8.6-50 mg 1-2 tablet 1-2 tablet, | | | oral, EVERY 12 HOURS NEEDED, | | | Starting Nia 07/15/16 at 1520, | | | Until 08/07/16 at 1957, | | | constipation | | + +---+ | | | + +---+ + +---------+ +---------+---+---+ | sodium phosphate IV 30 mmol 30 | New Bag | 07/26/20 | 30 mmol | | | | mmol, intravenous, NEEDED, | | 16 4:54 | | | | | Starting Nia 07/15/16 at 1520, | | AM PST | | | | | Until 08/07/16 at 1958, | | | | | | | phosphate level 1.6-2 mg/dL | | | | | | + +---------+ +---------+---+---+ +---+---+ | | | +---+---+ + +---------+ +---------+-------+---+ | sodium phosphate IV 40 mmol 40 | New Bag | 07/29/20 | 40 mmol | 57.8 | | | mmol, intravenous, NEEDED, | | 16 3:52 | | mL/hr | | | Starting Nia 07/15/16 at 1520, | | AM PST | | | | | Until 08/07/16 at 1958, | | | | | | | phosphate level less than or | | | | | | | equal to 1.5 mg/dL. | | | | | | + +---------+ +---------+-------+---+ +---+---+ | | | +---+---+ + +-------+ +--------+---+---+ | ursodiol (ACTIGALL) capsule 300 | Given | 08/07/20 | 300 mg | | | | mg 300 mg, oral, TWICE DAILY, | | 16 9:01 | | | | | First dose on Tue07/28/16 at | | AM PST | | | | | 1015, Until Discontinued | | | | | | + +-------+ +--------+---+---+ +-------+ +--------+---+---+ | Given | 08/06/20 | 300 mg | | | | | 16 9:21 | | | | | | PM PST | | | | +-------+ +--------+---+---+ | Given | 08/06/20 | 300 mg | | | | | 16 9:58 | | | | | | AM PST | | | | +-------+ +--------+---+---+ +---+---+ | | | +---+---+ + +-------+ +--------+---+---+ | valACYclovir 50 mg/mL | Given | 08/07/20 | 500 mg | | | | suspension (compound) 500 mg 500 | | 16 9:00 | | | | | mg, oral, TWICE DAILY, First | | AM PST | | | | | dose on 07/24/16 at 2100, | | | | | | | Until Discontinued | | | | | | + +-------+ +--------+---+---+ +-------+ +--------+---+---+ | Given | 08/06/20 | 500 mg | | | | | 16 9:21 | | | | | | PM PST | | | | +-------+ +--------+---+---+ | Given | 08/06/20 | 500 mg | | | | | 16 9:58 | | | | | | AM PST | | | | +-------+ +--------+---+---+ + +---+ | | | + +---+ | vancomycin (VANCOCIN) IV 1,750 | | | mg 1,750 mg, intravenous, EVERY | | | 12 HOURS, First dose on Sat | | | 08/07/16 at 2100, Until | | | Discontinued | | + +---+ | | | + +---+ documented in this encounter
--- OUTSIDE RECORDS SUMMARY | ~2019-01-06 | XMS | Encounter Summary ---
Demographics + + + | Address | [address] | | | [place] [address] | + + + | Home Phone | | + + + | Preferred Language | Unknown | + + + | Marital Status | | + + + | Restoration Affiliation | NON | + + + | Race | White | + + + | Ethnic Group | Not or | + + + Author + + + | Author | [facility] | + + + | Organization | [facility] | + + + | [...] Team Providers + +------+ + | Care Poultry Pinner Name | Role | Phone | + +------+ + | Aashish Hilton MD | PCP | | + +------+ + Reason for Visit + + + | Reason | Comments | + + + | Transplant follow-up | | + + + Benefits Check (Routine) +--------+--------+ + + + + | Status | Reason | Specialty | Diagnoses / | Referred By | Referred To | | | | | Procedures | Contact | Contact | +--------+--------+ + + + + | Closed | | Hematology | Diagnoses | Quirino Moreno | [facility] | | | | Malignancy | Nodular | MD Ronak,PhD | [address] | | | | | sclerosis | [address] | | | | | Hodgkin | [facility] | [facility] | | | | | lymphoma, | Rd | Mailcode: | | | | | lymph nodes | [place], [place] | [facility] | | | | | of multiple | [address] | [address] | | | | | sites | Phone: | Pavilion | | | | | | [phone] | [place], [place] | | | | | | Fax: | [address] | | | | | | [phone] | Phone: | | | | | | | [phone] | | | | | | | Fax: | | | | | | | [phone] | +--------+--------+ + + + + Encounter Details +--------+---------+ + + + | Date | Type | Department | Care Team | Description | +--------+---------+ + + + | 08/23/ | Office | Center for | Vanessa Shin, | Nodular sclerosis | | 2017 | Visit | Hematologic | [employer] 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 | lymph nodes of | | | | [facility] | [facility] [place] | multiple regions | | | | [address] [facility] | [address] | (HCC) (Primary Dx); | | | | [facility] | [phone] | HUS (hemolytic | | | | Mailcode: [facility] | | uremic syndrome), | | | | [facility] | | atypical (HCC); | | | | [place], [place] | | Autologous bone | | | | [address] | | marrow | | | | [phone] | | transplantation | | | | [...] + + + | Blood Pressure | 131/90 | 08/23/2016 1:20 PM | | | | | PST | | + + + + + | Pulse | 116 | 08/23/2016 1:20 PM | | | | | PST | | + + + + + | Temperature | 36.9 C (98.5 F) | 08/23/2016 1:20 PM | | | | | PST | | + + + + + | Respiratory Rate | 18 | 08/23/2016 1:20 PM | | | | | PST | | + + + + + | Oxygen Saturation | 99% | 08/23/2016 1:20 PM | | | | | PST | | + + + + + | Inhaled Oxygen | - | - | | | Concentration | | | | + + + + + | Weight | 96.9 kg (213 lb 10 | 08/23/2016 1:20 PM | | | | oz) | PST | | + + + + + | Height | - | - | | + + + + + | Body Mass Index | 30.65 | 08/11/2016 1:57 AM | | | | | PST | | + + + + + documented in this encounter Patient Instructions Patient Instructions Vanessa Osborne FNP - 08/23/2016 1:45 PM PSTCall the BMT clinic ) or BMT person on-call ([phone]) for: Any temp > 100.4 Nausea/vomiting unresponsive to anti-nausea medications Significant diarrhea despite Imodium Inability to drink at least 2 liters of fluid daily You develop a rash Bleeding Today you will be receiving 3 medications: -Solaris -Pentamidine: This is to help prevent PJP (Pneumocystis jiroveci) in immune suppressed preet ents and this medication will provide you with 1 month protection. -Magnesium: due to low magnesium levels Fluconazole: stop taking this medication as you have completed all required doses. Your next appointment will be with Dr. Moreno on 08/26 and I will send them an update regarding your living situation Helpful Hints for Returning Home Diet- All food should be prepared fresh for you. - Avoid salad bars, buffet tables, dessert cases and food under warming lights. Medications Our current recommendations include: - Dapsone will be prescribed at a later date and continues through day +180 (01/17/17) - Acyclovir continues through day +365 (07/21/17) Oral Health- Flossing is allowed once your ANC is greater than 1000 and your platelet count is greater than 100,000. Pets- Contact with pets is encouraged however please avoid animal feces for at least 6 court hs after transplant. Be sure to wash your hands after any contact with your pets. - Contact with reptiles, amphibians and birds, barnyard animals and exotic or wild animals is discouraged for 6 months after transplant. Daily Life- After day +30, you should begin to get out of the house more but continue to av oid people who may be sick. - Gardening with gloves is safe 3 months after transplant - Avoid use of pesticides, solvents or fertilizers for 12 months after transplant - Sun block with at least 30 SPF should be worn at all times of sun exposure for the rest o f your life. Skin is more sensitive to sun exposure after radiation or chemotherapy. - [place] can be resumed once your ANC is greater than 1000 and your platelet count is greater than 50,000. We encourage the use of condoms for the first year after transplant. - Hot tubs and public pools should be avoided for at least 2 weeks after removal of your ce ntral catheter. Returning to Work- Consider returning to work no sooner than 3 to 6 months after transplant . - A part-time schedule is advised for the first 2 to 4 months after returning to work. Immunizations- We encourage all patients and their immediate family members to receive the Influenza vaccine yearly beginning at least 4 months after transplant. - You will require revaccination around your one year anniversary. We will provide your [facility] Oncologist with our recommended schedule of vaccinations Disease Restaging- We recommend disease restaging between days +80 and 100 to establish a n ew post-transplant baseline. This should include CT scans and/or a PET scan based on your p re-transplant staging. We will ask your primary oncologist to perform these studies for you r convenience. - Please schedule a follow up with your [facility] Transplant Physician around day +100 (10/29/16) after your restaging has been completed. We encourage you to contact your [facility] Nurse Coordinator if you have any questions about you r transplant after returning home. Jeanette Lai RN [phone] signed by MORENA John at 08/23/2016 2:57 PM PST documented in this encounter Progress Notes Vanessa Osborne FNP - 08/23/2016 1:45 PM PSTFormatting of this note might be different f rom the original. 08/23/2016 [facility] Physician: Quirino Moreno MD Local Oncologist: Dr. Hilton PCP: Aashish Hilton MD Hematologic Malignancy: Relapsed HL Conditioning regimen: BEAM Date of transplant: 07/21/16 Donor: Autologous Hematologic History: Meggan Otero is a 20 y.o. 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, recently admitted for autoBMT Local oncologist: Aashish Hilton MD ([facility]) Benign Hematology: Jim Michael MD ([facility]) Pediatric Heme/Onc: Anh Moreland MD ([place]) Nephrology: Raghav Miller MD ([place]) 04/2015 presented with flank pain CT C/A/P: 11 cm anterior mediastinal mass, pleural effusion & L supraclav adenopathy Needle bx: classical hodgkins, nodular sclerosing type Thoracentesis: reactive/benign BMBx: neg PET: bulky mediastinal mass, SUV 16; bilateral neck SUV 15; also R>L pleural effusion 05/10/15 began ABVE-PC (as per pediatric [id number]) via femoral line 05/16/15 presented with sepsis [...] L neck: classical Hodgkins Above therapy in [place] -> moved to [place] Continued on ecalizumab per benign heme ([place]) - genetic testing for aHUS PENDING GDP x3 06/2017 CR by PET Reece placed GCSF stem cell mobilization: 7.3 x10^6 cd34/kg She was recently hospitalized from 07/15/16-08/07/16 for her initial transplant hospitalat ion. For complete details of her recent hospitalization, please see discharge dictation in EPIC. Briefly, her transplant hospitalization was complicated by: pancytopenia, neutropenic fevers, MRSA bacteremia, orthostatic hypotension, chemotherapy induced nausea, mucositis. Meggan Otero is a 20 y.o. female with hx of relapsed HL, currently day +33 s/p BEAM co nditioned autologous peripheral blood stem cell transplant. Interval Hx: Meggan presents to clinic today for her routine scheduled visit. She is accompanied by her m other and in clinic today. Meggan continues to do well overall, primary issue remain s persistent low grade nausea and she is taking Zofran twice a day and Ativan as needed for breakthrough nausea, no vomiting. Her appetite is improving and she is eating 3 full meals plus snacks and is drinking at least 2L of fluids daily. Still with some intermittent loose stools, last yesterday, but diarrhea stopped without any intervention. No fevers or chills . Review of Systems: General: +fatigue-stable Denies fevers, chills, weight loss or sweats. ENT: Denies changes in vision or double vision. Denies hearing loss, nosebleeds, nasal valentine estion, difficulty swallowing, hoarseness or sore throat. Respiratory: Denies shortness of breath, coughing up blood, excessive sputum, cough, chest discomfort or wheezing. Musculoskeletal: No swelling, stiffness,arthritis, muscle aches or muscle cramps. Cardiovascular: No chest pain,lightheadedness,shortness of breath. Gastrointestinal: +nausea and diarrhea-mild, intermittent Denies indigestion, vomiting, con stipation, abdominal pain, diarrhea, bloody stools or dark tarry stools. Skin: Denies [...] 1 tablet by mouth two times daily. LORAZEPAM 0.5 MG TABLET Take 1 [...] hours as needed. Indications: Constipation Vitals: BP 131/90 | Pulse 116 | Temp (Src) 36.9 C (98.5 F) (Oral) | RR 18 | Wt 96.9 kg (213 lb 10 oz) | SpO2 99% | BMI 30.65 kg/(m^2) Physical Exam: General: This is a [...] diff: Last 72 hours (or 3 results) Recent Labs 08/23/16 1333 WBC 2.5* HB 8.1* HCT 23.7* PLT 33* MONOPERC 19.5* BASOPERC 0.0 EOSPERC 2.0 Chemistries: Last 72 Hours (or 3 results): Recent Labs 08/10/16 2053 08/11/16 0604 08/12/16 0101 08/18/16 1432 08/20/16 1237 08/20/16 1338 08/23/16 1305 08/23/16 1335 NA 145 145 146* < > 136 -- 137 -- 137 K 3.4 3.8 3.2* < > 3.3* -- 4.1 -- 3.9 CL 113* 113* 113* < > 106 -- 100 -- 103 BICARB 20* 23 23 < > 25 -- 25 -- 26 BUN 23* 24* 17 < > 13 -- 10 -- 9 CR 1.62* 1.45* 1.32* < > 1.1 -- 0.9 -- 0.9 GLU 104* 91 95 < > 99 -- 86 -- 111* CA 8.5* 8.2* 8.3* < > 8.7 -- 9.1 -- 9.1 AST 26 29 22 < > <20 16 -- 22 -- ALT 15 15 15 < > <20 18 -- 17 -- AP 114* 97 92 < > 94* 122* -- 114* -- TBILI 2.4* 1.0 0.8 < > 0.6 0.4 -- 0.4 -- TP 6.5 5.6* 5.7* < > 6.6 6.7 -- 6.9 -- ALB 3.4* 3.0* 2.9* < > 3.5 3.4* -- 3.5 -- ANIONGAP 12 9 10 -- -- -- -- -- -- ANIONALBCOR 13* 11 12* -- -- -- -- -- -- < > = values in this interval not displayed. Hematology: Hematologic Malignancy: Relapsed HL Conditioning Regimen: BEAM Stem cell transplant -Stem Cell product: tolerated stem cell product on 07/21/16 without complications. CD 34 cou nt = 7.3 x 10^6 per kg -BMT Day: +33 CBC reviewed and reveals pancytopenia. WBC/ANC have dropped since her last visit, but they remain above parameters for Neupogen. There is no blood product support required at this ti me. -Around day + 30, we will return her to her primary attending with our BMT service, Dr. Cira elon; first appointment scheduled for 08/26/16. -Plan for [...] Factor: Last dose of neupogen given on 08/17 for ANC <1000 Labs: Continue to check CBC twice weekly Transfusion parameters: -Transfuse PRBCs for HCT <21% if asymptomatic OR <24% if symptomatic -Transfuse PPH for platelet count <20,000 d/t anticoagulation Pulmonary: Pretransplant PFTs completed on 06/25/16 showed FEV1 of 86% predicted, FVC of 90% predicted and adjusted DLCO of 50% predicted. No acute issues Cardiovascular: Pretransplant TTE completed on 06/24/16 showed a LVEF of 55%. RLE DVT (first noted 07/04/15, persists on 07/16 doppler in R axial calf): Apixaban prior to transplant -Dc'd Apixiban 5 mg BID on transplant admission -Received treatment-dose Lovenox until plts <50K (07/15-07/25) -Continues on Lovenox 40 mg qpm while thrombocytopenic, keep plts >20K Orthostatic HoTN: now resolved. 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 Next dose due 09/19/16. -Monitor for hemolysis flare -Monitor LDH, hapto, complement activity qMon, Thurs Menses suppression: -Norethindrone, started 08/05 Hx of BRETT: / supratherapeutic Vancomycin. SCr up to 1.6 during transplant hospitalizatio n, now trended down and within normal limits.. -Monitor 2x/week Neuro/Psych: Depression/Anxiety: Lexapro prior to transplant -Lexapro 10 mg daily -Ativan PRN Infectious Disease: Afebrile and no localizing s/s of acute infection at this time. -The patient is reminded to take her temperature regularly (3-4 x daily) and to call immedi ately for a temperature of 100.4 or greater. Recent MRSA Bacteremia: noted 07/28 during initial transplant admission. PAC and Reece r emoved on 07/30. TTE neg. Completed course of Vancomycin on 08/12. Post-Transplant Prophylaxis: Antiviral: Acycovir through day +365 (07/21/17) Antifungal: Fluconazole through day +30 (08/20/16) PCP: PCP prophylaxis will start day+30-40. With ongoing cytopenias, received Pentamidine o n 08/23/16. Fluid/Nutrition/Lytes: Nutrition: Current diet -- Regular No Adriane's yogurt or Kefir. Encourage po intake as micheal ated with a goal of consistently drinking at least 2L calorie containing fluids per day. Fluid: 1L NS bolus PRN Lytes: Continue to check chemistries twice weekly. Replace per supportive care protocol. Plan: -There is no blood product or Neupogen support required at this time. -Solaris and Pentamidine today. -Mg 4 gm IV in clinic today. -DC Fluconazole. -Nausea: continue Zofran BID and Ativan as needed. -Return to clinic on 08/26 to see MORENA Wilde [facility] [address] [facility] Mailcode: [address] [place] [phone] documented in this encounter Plan of Treatment Not on filedocumented as of this encounter Results LDH TOTAL, PLASMA (08/23/2016 1:05 PM PST) + +---------+ + + + | Component | Value | Ref Range | Performed | Pathologist | | | | | At | Signature | + +---------+ + + + | LD TOTAL, | 231 | <=250 U/L | [facility] | | [...] + | MARICEL WORKMAN | [address] | [place] [address] | | | SERVICES, CORE | BLANCHE [...]
--- OUTSIDE RECORDS SUMMARY | ~2019-01-06 | XMS | Encounter Summary ---
Demographics + + + | Address | [address] | | | [place] [address] | + + + | Home Phone | | + + + | Preferred Language | Unknown | + + + | Marital Status | | + + + | Mu-Ism Affiliation | NON | + + + | Race | White | + + + | Ethnic Group | Not or | + + + Author + + + | Author | [facility] | + + + | Organization | [facility] | + + + | [...] Team Providers + +------+ + | Care School Teacher Name | Role | Phone | + +------+ + | Aashish Hilton MD | PCP | | + +------+ + Encounter Details +--------+ + + + + | Date | Type | Department | Care Team | Description | +--------+ + + + + | 07/14/ | Chargemaster Analyst | Hematology/Medical | [place], | | | 2015 | | Oncology at Center | MD Jim [address] | | | | | [facility] | [place], | | | | | [address] | [place] [address] | | | | | Mailcode: [place] | [phone] | | | | | for Health and | | | | | | Healing, [address] | | | | | | [place], [place] | | | | | | [address] | | | | | | [phone] | | | +--------+ + + + [...]
--- OUTSIDE RECORDS SUMMARY | ~2019-01-06 | XMS | Encounter Summary ---
Demographics + + + | Address | [address] | | | [place] [address] | + + + | Home Phone | | + + + | Preferred Language | Unknown | + + + | Marital Status | | + + + | Nondenominational Affiliation | NON | + + + | Race | White | + + + | Ethnic Group | Not or | + + + Author + + + | Author | [facility] | + + + | Organization | [facility] | + + + | [...] Providers + +------+ + | Care School Bus Driver Name | Role | Phone | + [...] | (patient going | | | | [address] | | home)); Intravenous | | | | Mailcode: [facility] | | infusion (Magnesium) | | | | Joanne Herman | | | | | | [place], [place] | | | | | | [address] | | | | | | [phone] | | | +--------+ + + + [...] WNL, but patient is going home to [place] and would like to have another week [...] instructed to check out at the front desk person prior to tiana ving the clinic. Patient [...] + + + | MARICEL KILGORE | [address] | [place], [place] | | | [facility] OF [facility] | [address] | [address] | | | TESTS | | | [...] MAGUI | [address] | [place], [place] | | | MERRY SH[facility] OF [facility] | [address] | [address] | | | TESTS | | | [...] | | | | | | Cory, [place] [address] | | | | | | [phone] | | | | | Juan [...] [facility] | [address] | [place], [place] | | | [facility] | | [address] | | + + + + + [...] | + + + + + | [facility] - AIR[facility] - | [address] | [place] [address] | | | [place] | | | [...] [facility] | [address] | [place] [address] | | | SERVICES, CORE | PARK [...] [facility] | [address] | [place] [address] | | | SERVICES, CORE | BLANCHE [...]
--- OUTSIDE RECORDS SUMMARY | ~2019-01-06 | XMS | Encounter Summary ---
Demographics + + + | Address | [address] | | | [place] [address] | + + + | Home Phone | | + + + | Preferred Language | Unknown | + + + | Marital Status | | + + + | Druze Affiliation | NON | + + + | Race | White | + + + | Ethnic Group | Not or | + + + Author + + + | Author | [facility] | + + + | Organization | [facility] | + + + | Address | [...] Providers + +------+ + | Care Assembly Line Worker Name | Role | Phone | + +------+ + | No Pcp Per Patient | PCP | Unavailable | + +------+ + Reason for Visit + + + | Reason | Comments | + + + | New patient | | | consultation | | + + + Intake Referral [...] MD Jim | | | | | Solirip[place] | MD Jim | [address] | | | | | | [address] | [address] | | | | | | Ave | [place], [place] | | | | | | [place], [place] | [address] | | | | | | [address] | Phone: | | | | | | Phone: | [phone] | | | | | | [phone] | Fax: | | | | | | Fax: | [phone] | | | | | | [phone] | | +--------+--------+ + + + + Encounter Details +--------+---------+ + + + | Date | Type | Department | Care Team | Description | +--------+---------+ + + + | 04/06/ | Office | Hematology/Medical | [place], | HUS (hemolytic | | 2016 | Visit | Oncology at Center | MD Jim [address] | uremic syndrome), | | | | for [facility] | [facility] [place], | atypical (HCC) | | | | [address] [place] | [place] [address] | (Primary Dx) | | | | Mailcode: Center | [phone] | | | | | for Health and | | | | | | Healing, [address] | | | | | | [place], [place] | | | | | | [address] | | | | | | [phone] | | | +--------+---------+ + + + [...] + + + | Blood Pressure | 114/80 | 04/06/2016 10:55 AM | | | | | PDT | | + + + + + | Pulse | 103 | 04/06/2016 10:55 AM | | | | | PDT | | + + + + + | Temperature | 37.1 C (98.8 F) | 04/06/2016 10:55 AM | | | | | PDT | | + + + + + | Respiratory Rate | 16 | 04/06/2016 10:55 AM | | | | | PDT | | + + + + + | Oxygen Saturation | 100% | 04/06/2016 10:55 AM | | | | | PDT | | + + + + + | Inhaled Oxygen | - | - | | | Concentration | | | | + + + + + | Weight | 85.5 kg (188 lb 9.6 | 04/06/2016 10:55 AM | | | | oz) | PDT | | + + + + + | Height | 177.8 cm (5' 10") | 04/06/2016 10:55 AM | | | | | PDT | | + + + + + | Body Mass Index | 27.06 | 04/06/2016 10:55 AM | | | | | PDT | | + + + + + documented in this encounter Progress Notes Jim Benavides MD - 04/06/2016 12:00 PM PDT Hematology Clinic Problem List Atypical HUS Chief Complaint: Atypical HUS Impression 1. 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 She i s still at risk of recurrence of her aHUS so will continue eculizamab 1200mg every two weeks . In the cases we and other have seen eculizamab is effective in suppression of her aHUS. Will also see if we can send genetic studies for complement mutations. Will see if can set up in [place] as this is closer to her home and referral sent to [facility] to arrange. 2. Deep Venous thrombosis - will change to apixaban 5mg bid - PARQ with patient. No mon itoring is required. No food interactions and only drug interactions are azoles and HIV ant iviral medications. Would hold 48 hours before any major procedures. If has life-threateni ng bleeding would use 4000 units of prothrombin complex concentrates to reverse. Discussed concerns about reversibility but noted randomized clinical trials showed no difference in ou tcomes in patients on direct oral anticoagulants who bled compared to warfarin - and patien ts on direct oral anticoagulants are less likely to bleed Subjective Crystal Otero is a 20 year old female for aHUS. Patient was found to have Hodgkin's di sease last year. Underwent chemotherapy and then soon had a severe illness with thrombocyto penia, high LDH, and renal insufficiency. Was diagnoses with atypical HUS and started on ec ulizamab with resolution of the syndrome. Bleomycin was thought to be the suspect drug so t his was stopped and she completed therapy. Has moved to [place] - relapsed from her Hodgkin' s disease so will get salvage therapy and then autotransplant. Also with deep vein thrombos is during therapy and on low molecular weight heparin. I saw and evaluated the patient. I agree with the findings and the plan of care as yasmeen osman in Dr Sequeira's note. Patient reports a pain level of 0 today. Social History Substance Use Topics Smoking status: Never Smoker Smokeless tobacco: Never Used Alcohol Use: No Please see scanned questionnaire for SH, FH, PMH, and ROS which I have reviewed in detail. I have reviewed the available radiology results which are notable for deep vein thrombosis I have reviewed all the available laboratory results which are notable for anemia I have reviewed all the available pathology results which are notable for Hodgkin's disease Current outpatient prescriptions: apixaban 5 mg oral tablet, Take 1 tablet by mouth two lisa es daily. Indications: PREVENTION OF DEEP VEIN THROMBOSIS RECURRENCE, Disp: 60 tablet, Rfl: 5 ECULIZUMAB (SOLIRIS IV), Inject into the vein (IV)., Disp: , Rfl: enoxaparin (LOVENOX) 60 mg/0.6 mL subcutaneous syringe, Inject under the skin (SUBC)., Dis p: , Rfl: enoxaparin 60 mg/0.6 mL subcutaneous syringe, Inject 0.6 mL under the skin (SUBC) every twe lve hours., Disp: 30 Syringe, Rfl: 2 escitalopram oxalate (LEXAPRO) 10 mg oral tablet, Take by mouth., Disp: , Rfl: Allergies Allergen Reactions Promethazine Pruritus, Rash and Dystonia Sulfacetamide Sodium Hives Today's height is 1.778 m (5' 10") and weight is 85.548 kg (188 lb 9.6 oz). Her oral temper ature is 37.1 C (98.8 F). Her blood pressure is 114/80 and her pulse is 103. Her respira tion is 16 and oxygen saturation is 100%. 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 HPI: Mrs Strong was an otherwise healthy 20 y/o female who developed flank pain in 2014 promptin g her to present to the emergency department in [facility] where she was living with h er who was stationed there. In April of 2015 CT found anterior mediastinal mass , pleural effusion & L supraclavicular adenopathy which biopsied as classical Hodgkin s, n odular sclerosing type. BMB was negative for disease. She began therapy with a pediatric p rotocol 05/10/15, ABVE-PC. She presented 05/29 with sepsis initiating a long ICU stay which included treatment for C.Diff and several DVT s as outlined below. During her hospital stay she developed diffuse alveolar hemorrhage, and renal failure. 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 She was started on plasmaphere sis with pulse steroids without benefit, and was then started on Ecluzumab with brisk improv ement which she has continued on since. No aHUS gene panel was sent due to lack of insuranc e coverage. During her ICU stay she also had several thrombosis including a DVT associated with her lef t femoral line and a large RLE DVT with associated leg edema that was considered for thrombo lysis, but this was held due ot her thrombocytopenia. F/U duplex suggested this is resolvin g. She was initially treated with heparin periodically held due to thrombocytopenia and tra nsitioned to LMWH which she has continued on. She then completed therapy with AVE-PC (Bleomycin omitted) with a CR by PET, but with a res idual 5.2 x 3.1 cm mass with was treated with 21 cgy of XRT. She developed progression in t he prior radiation field which was biopsied and was shown to be classical Hodgkins. She tra nsitioned her care to [facility] and is following with Dr. Moreno from [facility], and is planning for salv age with GDP followed by autoBMT. Since her ICU stay she has slowly been increasing her activity. She is still using a wheel chair at times. Home Medications: Lovenox BID Lexaprom 10mg Solaris ALLERGIES: Promethazine Sulfacetamide sodium SOCIAL: [facility] [place] Nonsmoker. Nondrinker. PHYSICAL EXAM: Vitals reviewed. General: The patient is alert, oriented, and does not appear to be in any acute distress. Pleasant young female. HEENT: no scleral icterus or conjunctival injection. Cardiac: RRR with no murmurs, rubs, or gallops. Pulm: Clear to auscultation bilaterally with no wheezes, rales, or rhonchi. GI: Soft, nondistended abdomen Extremities: Warm and well perfused. She has compression Socks on. Neuro: Cranial nerves grossly intact bilaterally. LABS: Results for CRYSTAL OTERO ( ) as of 04/12/2016 11:39 Ref. Range 04/07/2016 14:29 WHITE CELL COUNT Latest Ref Range: 4.4-11.0 10*3/uL 6.8 RED CELL COUNT Latest Ref Range: 4.00-5.20 10*6/uL 3.97 (L) HEMOGLOBIN Latest Ref Range: 12.0-16.0 g/dL 12.0 HEMATOCRIT Latest Ref Range: 36.0-46.0 % 36.5 MCV Latest Ref Range: 80.0-96.0 fL 91.9 MCH Latest Ref Range: 29.0-32.0 pg 30.2 MCHC Latest Ref Range: 33.0-35.5 g/dL 32.9 RDW SD Latest Ref Range: 35.1-46.3 fL 41.8 PLATELET COUNT Latest Ref Range: 150-400 10*3/uL 285 MPV Latest Ref Range: 9.7-12.3 fL 9.2 (L) NEUTROPHIL % Latest Ref Range: 50.0-70.0 % 72.7 (H) LYMPHOCYTE % Latest Ref Range: 18-42 % 15.8 (L) MONOCYTE % Latest Ref Range: 3.5-9.0 % 10.2 (H) EOS % Latest Ref Range: 1.0-3.0 % 1.2 BASO % Latest Ref Range: 0.0-2.0 % 0.1 NEUTROPHIL # Latest Ref Range: 1.8-7.7 10*3/uL 5.0 LYMPHOCYTE # Latest Ref Range: 1.0-4.8 10*3/uL 1.1 MONOCYTE # Latest Ref Range: 0.1-0.9 10*3/uL 0.7 EOS # Latest Ref Range: 0.0-0.5 10*3/uL 0.1 BASO # Latest Ref Range: 0.0-0.1 10*3/uL 0.0 IMAGING No New Imaging. ASSESSMENT AND PLAN 20 y/o female with drug associated HUS (Bleomycin) and classical Hodgkin s, nodular scle rosing type, with persistent disease after interrupted ABVE-PE, planning salvage therapy wit h GDP followed by autoBMT. 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 It is plausible this was drug associa jacqui (bleomycin), although should could harbor a complement gene mutation that was unmasked b y the stressors of her ICU stay. Will plan to continue eculizamab through her planned salvag e therapy and attempt to procure a free aHUS gene panel workup. If she harbors a mutation wi ll consider lifelong therapy. If not, we could consider stopping therapy after her salvage t herapy. We will attempt to arrange infusions closer to home. For her VTE, which was provoked, but occurred in the setting of active lymphoma, we feel co mfortable switching to a DOAC and continuing this through her salvage therapy as well. She w ill stop LMWH and start Apixiban. MARYJANE SEQUEIRA MD [facility] [address] [facility] Mailcode: [id number] [place], [place] [id number] [facility] [place] documented in this encounter Plan of Treatment Not on filedocumented as of this encounter Procedures + +--------+ + + + | Procedure Name | Priori | Date/Time | Associated Diagnosis | Comments | | | ty | | | | + +--------+ + + + | LAB REPORTS | | 04/07/2016 | | Results for this | | | | 12:00 AM | | procedure are in the | | | | PDT | | results section. | + +--------+ + + + | PATHOLOGY | | 04/07/2016 | | Results for this | | | | 12:00 AM | | procedure are in the | | | | PDT | | results section. | + +--------+ + + + documented in this encounter Results LAB REPORTS (04/07/2016 12:00 AM PDT) + + + | Narrative | Performed At | + + + | | | + + + PATHOLOGY (04/07/2016 12:00 AM PDT) + + + | Narrative | Performed At | + + + | | | + + + documented in this encounter Visit Diagnoses + + | Diagnosis | + + | HUS (hemolytic uremic syndrome), atypical (HCC) - Primary Hemolytic-uremic syndrome | + + documented in this encounter
--- OUTSIDE RECORDS SUMMARY | ~2019-01-06 | XMS | Encounter Summary ---
Demographics + + + | Address | [address] | | | [place] [address] | + + + | Home Phone | | + + + | Preferred Language | Unknown | + + + | Marital Status | | + + + | Yarsanism Affiliation | NON | + + + | Race | White | + + + | Ethnic Group | Not or | + + + Author + + + | Author | [facility] | + + + | Organization | [facility] | + + + | [...] Team Providers + +------+ + | Care Construction Project Manager Name | Role | Phone | [...] | | | | Malignancies at | [facility] | | | | | [facility] | [place], [place] | | | | | [address] [facility] | [address] | | | | | [facility] | [phone] | | | | | Mailcode: [id number] | | | | | | [facility] | | | | | | [place], [place] | | | | | | [address] | | | | | | [phone] | | | +--------+ + + + [...]
--- OUTSIDE RECORDS SUMMARY | ~2019-01-06 | XMS | Encounter Summary ---
Demographics + + + | Address | [address] | | | [place] [address] | + + + | Home Phone | | + + + | Preferred Language | Unknown | + + + | Marital Status | | + + + | Shinto Affiliation | NON | + + + [...] Team Providers + +------+ + | Care Control And Recovery Special Tactics Name | Role | Phone | + +------+ + | Aashish Hilton MD | PCP | | + +------+ + Reason for Visit + + + | Reason | Comments | + + + | Lab Draw | PICC | + + + | Follow-up visit | JAS[facility] Cat | + + + AUTH/CERT +--------+--------+ + [...] | +--------+ + + + + | 08/10/ | Clinical | [facility] for | | Lab Draw (PICC); | | 2016 | Support | Hematologic | | Follow-up visit | | | Staff | [facility] at [facility] | | (JASMIN Cat) | | | | [address] | | | | | | [facility] | | | | | | Mailcode: [id number] | | | | | | [place]anne [place] | | | | | | [place], [place] | | | | | | [address] | | | | | | [phone] | | | +--------+ + + + [...] + + + | Blood Pressure | 133/95 | 08/10/2016 6:40 PM | | | | | PST | | + + + + + | Pulse | 111 | 08/10/2016 6:40 PM | | | | | PST | | + + + + + | Temperature | 37.3 C (99.2 F) | 08/10/2016 6:40 PM | | | | | PST | | + + + + + | Respiratory Rate | 20 | 08/10/2016 6:40 PM | | | | | PST | | + + + + + | Oxygen Saturation | - | - | | + [...] + documented in this encounter Progress Notes Jessica Glover RN - 08/10/2016 2:40 PM PSTName of Test: Vancomycin trough Result: 60.7 Time Results Received: 08/10/16 at 17:00 Read Back Done: Yes Name of Provider Notified: JASMIN Cat Date/Time of Provider Notification: 08/10/16 at 17:05 Action(s) Taken: Orders to have lab cancel- patient already took vanco dose today prior to drawing lab Alta Staples RN - 08/10/2016 2:40 PM PST INFUSION/TRANSFUSION NURSING NOTE Name: Meggan Otero Date: 08/10/2016 Provider: JASMIN Cat Nurse Assessment: Patient denies fever, cold/flu symptoms, N/V/D, edema, signs of bleeding, neuropathy and ra sh. Patient reports eating and drinking adequately. Patient states feeling better today then she did yesterday, denies having dizziness. Narrative: PICC accessed per protocol. Good blood return noted. Appropriate waste discarded. Labs d rawn and sent. PICC pulse flushed with 20 mL NS. Patient scheduled for provider visit stephanie keating with JASMIN Cat. Lab Results Component Value Date WBC 1.4 08/10/2016 HB 7.0 08/10/2016 HCT 21.1 08/10/2016 PLT 13 08/10/2016 MCV 92.1 08/10/2016 RDW 42.4 08/07/2016 Lab Results Component Value Date NA 143 08/10/2016 K 3.3 08/10/2016 CL 108 08/10/2016 BICARB 23 08/10/2016 BUN 23 08/10/2016 CR 1.6 08/10/2016 GLU 110 08/10/2016 CA 8.9 08/10/2016 ANIONGAP 10 08/07/2016 ANIONALBCOR 12 08/07/2016 Transfusion: Lab Results Component Value Date PLT 13 08/10/2016 Orders to transfuse platelet product for a platelet count today as above. Each unit was brittany cked by two RNs to confirm the unit number, ABO and Rh type printed on tag matched informati on on blood bag and to confirm crossmatch compatibility. At the bedside, two RNs verified t he correct patient using two unique identifiers, confirmed the unit number, ABO and Rh type printed on tag matched the information on blood bag and confirmed crossmatch compatibility. Informed consent was verified. The patient was not premedicated. She received 1 unit of platelets per Provider s orders . Transfusion was tolerated well without complication. Frequent vital signs were monitored throughout the transfusion and reviewed by me. For transfusion details, see ONC Lines & Tr ansfusions doc flowsheet. Post-platelet count of 38. Lab Results Component Value Date HCT 21.1 08/10/2016 HB 7.0 08/10/2016 Orders to transfuse PRBC product for a Hematocrit today as above. Type and cross for 1 uni ts of PRBC was sent to Blood Bank. Each unit was checked by two RNs to confirm the unit num brittaney, ABO and Rh type printed on tag matched information on blood bag and to confirm crossmat ch compatibility. At the bedside, two RNs verified the correct patient using two unique henny ntifiers, confirmed the unit number, ABO and Rh type printed on tag matched the information on blood bag and confirmed crossmatch compatibility. Informed consent was verified. The patient was not premedicated. She received 1 unit of PRBCs per Provider s orders. T ransfusion was tolerated well without complication. Frequent vital signs were monitored thr oughout the transfusion and reviewed by me. For transfusion details, see ONC Lines & Transf usions doc flowsheet. Metabolic Support: Normal Saline 1L IV over 2 hours for elevated creatinine level. Potassium chloride 20 meq PO (lower dose per JASMIN Cat due to patients elevated Cr t level today) per supportive care orders for a potassium level of 3.3. For medication det ails, see OCT. Discharge: Tolerated procedure. Patient discharged from clinic via wheelchair accompanied klaudia y Family. Patient encouraged to call disaster response director provider if she were to get a fever or had any s/sx of bleeding. Plan for next visit tomorrow for continued lab check and support. VSS. 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 | | | e | 2:44 PM | marrow | procedure are in the [...] + | TREATMENT PARAMETERS | Routin | 08/10/2016 | Nodular sclerosis | | | #2 - [place] | e | 2:43 PM | Hodgkin lymphoma of | | | | | PST | lymph nodes of | | | | | | multiple regions | | | | | | (HCC) | | + +--------+ + + + | TREATMENT PARAMETERS | Routin | 08/10/2016 | Nodular sclerosis | | | #2 - [place] | e | 2:43 PM | Hodgkin lymphoma of | | | | | PST | lymph nodes of | | | | | | multiple regions | | | | | | (HCC) | | + +--------+ + + + | TREATMENT PARAMETERS | Routin | 08/10/2016 | Nodular sclerosis | | | #2 - [place] | e | 2:43 PM | Hodgkin lymphoma of | | | | | PST | lymph nodes of | | | | | | multiple regions | | | | | | (HCC) | | + +--------+ + + + | TREATMENT PARAMETERS | Routin | 08/10/2016 | Nodular sclerosis | | | #2 - [place] | e | 2:43 PM | Hodgkin lymphoma of | | | | | PST | lymph nodes of | | | | | | multiple regions | | | | | | (HCC) | | + +--------+ + + + | TREATMENT PARAMETERS | Routin | 08/10/2016 | Nodular sclerosis | | | #2 - [place] | e | 2:43 PM | Hodgkin lymphoma of | | | | | PST | lymph nodes of | | | | | | multiple regions | | | | | | (HCC) | | + +--------+ + + + | NURSING | Routin | 08/10/2016 | Nodular sclerosis | | | COMMUNICATION #3 - | e | 2:43 PM | Hodgkin lymphoma of | | | [place] | | PST | lymph nodes of | | | | | | multiple regions | | | | | | (HCC) | | + +--------+ + + + | NURSING | Routin | 08/10/2016 | Nodular sclerosis | | | COMMUNICATION #2 - | e | 2:43 PM | Hodgkin lymphoma of | | | [place] | | PST | lymph nodes of | | | | | | multiple regions | | | | | | (HCC) | | + +--------+ + + + | NURSING | Routin | 08/10/2016 | Nodular sclerosis | | | COMMUNICATION #1 - | e | 2:43 PM | Hodgkin lymphoma of | | | [place] | | PST | lymph nodes of | | | | | | multiple regions | | | | | | (HCC) | | + +--------+ + + + | TREATMENT PARAMETERS | Routin | 08/10/2016 | Nodular sclerosis | | | #1 - [place] | e | 2:43 PM | Hodgkin lymphoma of | | | | | PST | lymph nodes of | | | | | | multiple regions | | | | | | (HCC) | | + +--------+ + + + | TREATMENT PARAMETERS | Routin | 08/10/2016 | Nodular sclerosis | | | #1 - [place] | e | 2:43 PM | Hodgkin lymphoma of | | | | | PST | lymph nodes of | | | | | | multiple regions | | | | | | (HCC) | | + +--------+ + + + documented in this encounter Results CBC+DIFF,POC (08/10/2016 5:35 PM PST) + + + + + + | Component | Value | Ref Range | Performed | Pathologist | | | | | At | Signature | + + + + + + | WBC POC | 1.6 (L) | 4.4 - 11.0 | [facility] - | | | | | 10*3/uL | [facility] | | | | | | [facility] | | | | | | OF CARE | | | | | | TESTS | | + + + + + + | RBC POC | 2.05 (L) | 4.00 - 5.20 | [facility] - | | | | | 10*6/uL | [facility] | | | | | | [facility] | | | | | | OF CARE | | | | | | TESTS | | + + + + + + | HGB POC | 6.3 (L) | 12.0 - 16.0 | [facility] - | | | | | g/dL | [facility] | | | | | | [facility], POINT | | | | | | OF CARE | | | | | | TESTS | | + + + + + + | HCT POC | 18.9 (L) | 36.0 - 46.0 % | [facility] - | | | | | | [facility] | | | | | | [facility], POINT | | | | | | OF CARE | | | | | | TESTS | | + + + + + + | MCV POC | 92.2 | 80.0 - 96.0 fL | [facility] - | | | | | | [facility] | | | | | | [facility] | | | | | | OF CARE | | | | | | TESTS | | + + + + + + | MCH POC | 30.7 | 29.0 - 32.0 pg | [facility] - | | | | | | [facility] | | | | | | [facility] | | | | | | OF CARE | | | | | | TESTS | | + + + + + + | MCHC POC | 33.3 | 33.0 - 35.5 | [facility] - | | | | | g/dL | [facility] | | | | | | [facility] | | | | | | OF CARE | | | | | | TESTS | | + + + + + + | RDW SD, POC | 45.4 | 35.1 - 46.3 fL | [facility] - | | | | | | [facility] | | | | | | [facility] | | | | | | OF CARE | | | | | | TESTS | | + + + + + + | PLT POC | 38 (L) | 150 - 400 | [facility] - | | | | | 10*3/uL | [facility] | | | | | | [facility] | | | | | | OF CARE | | | | | | TESTS | | + + + + + + | MPV POC | 11.4 | 9.7 - 12.3 fL | [facility] - | | | | | | [facility] | | | | | | [facility], POINT | | | | | | OF CARE | | | | | | TESTS | | + + + + + + | NEUTROPHIL% | 67.9 | 50.0 - 70.0 % | [facility] - | | | POC | | | [facility] | | | | | | [facility], POINT | | | | | | OF CARE | | | | | | TESTS | | + + + + + + | LYMPH% POC | 24.7 | 18 - 42 % | [facility] - | | | | | | [facility] | | | | | | [facility], POINT | | | | | | OF CARE | | | | | | TESTS | | + + + + + + | MONO %, POC | 6.8 | 3.5 - 9.0 % | [facility] [...] + + | BASO %, POC | 0.6 | 0.0 - 2.0 % | [facility] - | | | | | | [facility] | | | | | | [facility] | | | | | | OF CARE | | | | | | TESTS | | + + + + + + | NEUTROPHIL# | 1.1 (L) | 1.8 - 7.7 | [facility] - | | | POC | | 10*3/uL | [facility] | | | | | | [facility] | | | | | | OF CARE | | | | | | TESTS | | + + + + + + | LYMPH# POC | 0.4 (L) | 1.0 - 4.8 | [facility] [...] + + + | CBC | Imm Gran, Left shift, | | [facility] - | | | COMMENT, | Anemia, Leukocytop | | [facility] | | | POC [...] + + + + | [facility] | [address] | [place], [place] | | | [facility] CARE | [address] | [address] | | | TESTS | | | | + + + + + BMP + MAG, POC CHM (08/10/2016 3:18 PM PST) + +---------+ + + + | Component | Value | Ref Range | Performed | Pathologist | | | | | At | Signature | + +---------+ + + + | SODIUM, POC | 143 | 134 - 143 | [facility] - | | | | | mmol/L | [facility] | | | | | | [facility] | | | | | | OF CARE | | | | | | TESTS | | + +---------+ + + + | POTASSIUM, | 3.3 (L) | 3.4 - 5.0 | [facility] - [...] +---------+ + + + | GLUCOSE, | 110 (H) | 60 - 99 mg/dL | [facility] - | | | POC | | | [facility] | | | | | | [facility] | | | | | | OF CARE | | | | | | TESTS | | + +---------+ + + + | CALCIUM | 8.9 | 8.6 - 10.2 | [facility] - | | | TOTAL, POC | | mg/dL | [facility] | | | | | | [facility] | | | | | | OF CARE | | | | | | TESTS | | + +---------+ + + + | BUN, POC | 23 (H) | 6 - 20 mg/dL | [facility] - | | | | | | [facility] | | | | | | [place], POINT | | | | | | OF CARE | | | | | | TESTS | | + +---------+ + + + | CREATININE, | 1.6 (H) | 0.6 - 1.1 mg/dL | [facility] - | | | POC | | | [facility] | | | | | | [place], POINT | | | | | | OF CARE | | | | | | TESTS | | + +---------+ + + + | LDH, POC | 309 (H) | 0 - 206 U/L | [facility] - | | | | | | [facility] | | | | | | [facility], POINT | | | | | | OF CARE | | | | | | TESTS | | + +---------+ + + + | MAGNESIUM, | 2.0 | 1.8 - 2.5 mg/dL [...] + + + | [facility] | [address] | [place], [place] | | | [facility] | [address] | [address] | | | TESTS | | | | + + + + + PRODUCT - PLATELET PHERESIS LEUKOREDUCED (08/10/2016 3:14 PM PST) + + + + + [...] + + + + | PRODUCT | [id number] | | [facility] | | | UNIT [...] + + + + | EXPIRATION | [id number] | | [facility] | | | DATE [...] + + + + | BLOOD | [id number] | | [facility] | | | PRODUCT [...] | + + + + + | [facility] | [address] | [place] [address] | | | SERVICES, | [address] | | | | TRANSFUSION MEDICINE | | | | + + + + + PRODUCT - RED CELLS LEUKOREDUCED (08/10/2016 3:14 PM PST) + + + + + [...] + + + + | PRODUCT | [id number] | | [facility] | | | UNIT [...] + + + + | EXPIRATION | [id number] | | [facility] | | | DATE [...] + + + + | BLOOD | [id number] | | [facility] | | | PRODUCT [...] [facility] | [address] | [place] [address] | | | SERVICES, | [address] | | | | TRANSFUSION MEDICINE | | | | + + + + + CBC+DIFF,POC (08/10/2016 3:06 PM PST) + + + + + + | Component | Value | Ref Range | Performed | Pathologist | | | | | At | Signature | + + + + + + | WBC POC | 1.4 (L) | 4.4 - 11.0 | [facility] - | | | | | 10*3/uL | [facility] | | | | | | [facility] | | | | | | OF CARE | | | | | | TESTS | | + + + + + + | RBC POC | 2.29 (L) | 4.00 - 5.20 | [facility] - | | | | | 10*6/uL | [facility] | | | | | | [facility] | | | | | | OF CARE | | | | | | TESTS | | + + + + + + | HGB POC | 7.0 (L) | 12.0 - 16.0 | [facility] - | | | | | g/dL | [facility] | | | | | | [facility] | | | | | | OF CARE | | | | | | TESTS | | + + + + + + | HCT POC | 21.1 (L) | 36.0 - 46.0 % | [facility] - | | | | | | [facility] | | | | | | [facility]INT | | | | | | OF CARE | | | | | | TESTS | | + + + + + + | MCV POC | 92.1 | 80.0 - 96.0 fL | [facility] - | | | | | | [facility] | | | | | | [facility] POINT | | | | | | OF CARE | | | | | | TESTS | | + + + + + + | MCH POC | 30.6 | 29.0 - 32.0 pg | [facility] - | | | | | | [facility] | | | | | | [facility] PO[facility] | | | | | | OF CARE | | | | | | TESTS | | + + + + + + | MCHC POC | 33.2 | 33.0 - 35.5 | [facility] - | | | | | g/dL | [facility] | | | | | | [facility] | | | | | | OF CARE | | | | | | TESTS | | + + + + + + | RDW SD, POC | 46.4 (H) | 35.1 - 46.3 fL | [facility] - | | | | | | [facility] | | | | | | [facility] | | | | | | OF CARE | | | | | | TESTS | | + + + + + + | PLT POC | 13 (L) | 150 - 400 | [facility] - | | | | | 10*3/uL | [facility] | | | | | | M[facility] [...] + + + + | NEUTROPHIL% | 60.8 | 50.0 - 70.0 % | [facility] - | | | POC | | | [facility] | | | | | | [facility], POINT | | | | | | OF CARE | | | | | | TESTS | | + + + + + + | LYMPH% POC | 29.6 | 18 - 42 % | [facility] - | | | | | | [facility] | | | | | | [facility] POINT | | | | | | OF CARE | | | | | | TESTS | | + + + + + + | MONO %, POC | 9.6 (H) | 3.5 - 9.0 % | [...] + + + + | NEUTROPHIL# | 0.8 (L) | 1.8 - 7.7 | [facility] - | | | POC | | 10*3/uL | [facility] | | | | | | [facility] POINT | | | | | | OF CARE | | | | | | TESTS | | + + + + + + | LYMPH# POC | 0.4 (L) | 1.0 - 4.8 | [facility] [...] + + + + | CBC | PLT Abn Dist. Imm | | [facility] - | | | COMMENT, | Gran. Lft Shift. | | [facility] | | | POC [...] [facility] | [address] | [place], [place] | | | [facility] OF CARE | [address] | [phone] | | | TESTS | | | | + + + + + VANCOMYCIN, TROUGH (08/10/2016 2:44 PM PST) + + + + + + | Component | Value | Ref Range | Performed | Pathologist | | | | | At | Signature | + + + + + + | VANCOMYCIN, | Comment: This is a | 5.0 - 15.0 | [facility] | | | TROUGH | corrected result. | ug/mL | LABORATORY | | | | Previous result was 60.7 | | SERVICES, | | | | ug/mL on 08/10/2016 at | | CORE | | | | 1700 PST. | | | | + + + + + + + + | Specimen | + + | Blood | + + + + + + + | Performing | Address | City/State/Zipcode | Phone Number | | Organization | | | | + + + + + | [facility] | [address] | [place] [address] | | | SERVICES, CORE | [address] | | | + + + + + PHOSPHORUS, PLASMA (08/10/2016 2:44 PM PST) + +-------+ + + + [...] | + + + + + | [facility] | [address] | [place] [address] | | | SERVICES, CORE | [address] | | | + + + + + LIVER SET (AST,ALT,BILI TOTAL,BILI DIRECT,ALK PHOS,ALB,PROT TOTAL) (08/10/2016 2:44 PM PST ) + +---------+ + + [...] +---------+ + + + | AST(SGOT) | 16 | <=41 U/L | [facility] | | [...] +---------+ + + + | TOTAL | 6.6 | 6.4 - 8.2 g/dL | [facility] [...] [facility] | [address] | [place] [address] | | | SERVICES, [place] | [address] [...] +---------+------+--------+ | filgrastim-sndz (RAMONA) | Given | 08/10/20 | 480 mcg | | Right | | injection 480 mcg 480 mcg, | | 16 5:06 | | | Arm | | subcutaneous, DAILY, First dose | | PM PST | | | | | on Tue08/10/16 at 1500, Until | | | | | | | Discontinued | | | | | | + +--------+ +---------+------+--------+ +---+---+ | | | +---+---+ + +---------+ + +---+---+ | NaCl 0.9 % solution 1,000 mL, | New Bag | 08/10/20 | 1,000 mL | | | | intravenous, ONCE, 1 dose, Tue | | 16 3:51 | | | | | 08/10/16 at 1545 | | PM PST | | | | + +---------+ + +---+---+ +---+---+ | | | +---+---+ + +-------+ +--------+---+---+ | potassium chloride (KLOR-CON) | Given | 08/10/20 | 20 mEq | | | | packet 20 mEq 20 mEq, oral, | | 16 5:05 | | | | | ONCE, 1 dose, 08/10/16 at | | PM PST | | | | | 1630 | | | | | | + +-------+ +--------+---+---+ +---+---+ | | | +---+---+ documented in this encounter"
--- OUTSIDE RECORDS SUMMARY | ~2019-01-06 | XMS | Clinical Summary ---
Demographics + + + | Address | [address] | | | [place] [address] | + + + | Home Phone | | + + + | Preferred Language | Unknown | + + + | Marital Status | | + + + | Scientology Affiliation | NON | + + + | Race | White | + + + | Ethnic Group | Not or | + + + Author + + + | Author | [facility] | + + + | Organization | [facility] | + + + | Address | [...] Team Providers + +------+ + | Care Offset Pressman Name | Role | Phone | + +------+ + | Aashish Hilton MD | PP | | + +------+ + Source Comments [facility] is fully live on both EpicCare Ambulatory and EpicCare InPatient.[facility] Allergies + + + + + + | Active Allergy | Reactions | Severity | Noted | Comments | | | | | Date | | + + + + + + | Prochlorperazine | Agitation | | 07/16/20 | | | | | | 16 | | + + + + + + | Promethazine | Pruritus, Rash, | High | 03/31/20 | | | | Dystonia | | 16 | | + + + + + + | Sulfa (Sulfonamide | Hives, Dyspnea | High | 07/29/20 | | | Antibiotics) | | | 16 | | + + + + + + | Sulfacetamide Sodium | Hives | High | 03/31/20 | | | | | | 16 | | + + + + + + Medications + + + +---------+------+------+-------+ | Medication | Sig | Dispensed | Refills | Star | End | Statu | | | | | | t | Date | s | | | | | | Date | | | + + + +---------+------+------+-------+ | escitalopram | Take 1 tablet by | 30 | 3 | 12/2 | | Activ | | oxalate (LEXAPRO) 10 | mouth once daily in | tablet | | 1/20 | | e | | mg oral tablet | the evening. | | | 16 | | | + + + +---------+------+------+-------+ | OLANZapine 10 mg | Dissolve 1 tablet in | 30 | 1 | 12/2 | | Activ | | oral | mouth once daily at | tablet | | 1/20 | | e | | tablet,disintegratin | bedtime. | | | 16 | | | | g | | | | | | | + + + +---------+------+------+-------+ | LORazepam 0.5 mg | Take 1 tablet by | 60 | 0 | 12/2 | | Activ | | oral tablet | mouth every six | tablet | | 1/20 | | e | | | hours as needed for | | | 16 | | | | | anxiety (nausea, | | | | | | | | vomiting). | | | | | | + + + +---------+------+------+-------+ | oxyCODONE, | Take 1 to 2 tablets | 60 | 0 | 12/2 | | Activ | | immediate release, 5 | by mouth every six | tablet | | 1/20 | | e | | mg oral tablet | hours as needed for | | | 16 | | | | | moderate pain. | | | | | | + + + +---------+------+------+-------+ | senna-docusate | Take 1-2 tablets by | | 0 | 12/2 | | Activ | | 8.6-50 mg oral | mouth every twelve | | | 1/20 | | e | | tabletIndications: | hours as needed. | | | 16 | | | | constipation | Indications: | | | | | | | | Constipation | | | | | | + + + +---------+------+------+-------+ | acyclovir 200 mg/5 | Take 20 mL by mouth | 600 mL | 11 | 12/2 | | Activ | | mL oral suspension | once daily. | | | 1/20 | | e | | | | | | 16 | | | + + + +---------+------+------+-------+ | norethindrone 0.35 | Take 1 tablet by | 28 | 5 | 12/2 | | Activ | | mg oral tablet | mouth once daily. | tablet | | 11/01 | | e | | | | | | 16 | | | + + + +---------+------+------+-------+ | famotidine 20 mg | Take 1 tablet by | 60 | 5 | 12/2 | | Activ | | oral tablet | mouth two times | tablet | | 20 | | e | | | daily. | | | 16 | | | + + + +---------+------+------+-------+ | ondansetron | Take 1 tablet by | 60 | 11 | 12/2 | | Activ | | (ZOFRAN, | mouth every twelve | tablet | | /20 | | e | | HYDROCHLORIDE,) 8 mg | hours as needed for | | | 16 | | | | oral tablet | nausea/vomiting. | | | | | | + + + +---------+------+------+-------+ | enoxaparin 40 | Inject 0.4 mL under | 14 | 2 | 01/0 | | Activ | | mg/0.4 mL | the skin (SUBC) once | Syringe | | 6/20 | | e | | subcutaneous | daily in the | | | 17 | | | | syringeIndications: | evening. | | | | | | | deep venous | Indications: Deep | | | | | | | thrombosis | Venous Thrombosis | | | | | | + + + +---------+------+------+-------+ | magnesium oxide | Take 1 capsule by | 60 | 1 | 01/1 | | Activ | | 400 mg elemental | mouth two times | capsule | | /20 | | e | | (667.67 mg total | daily. | | | 17 | | | | salt) oral capsule | | | | | | | + + + +---------+------+------+-------+ Active Problems + + + | Problem | Noted Date | + + + | RED CELL ANTIBODIES - allow additional time for crossmatch | 08/11/2016 | + + + + + | Overview: Patient is sensitized against red cell antigen | | "Jka". Approximately 23% of units are expected to be compatible. | | Allow at least 4-6 hours for completion of crossmatch. 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 | | | regions | | + + + | HUS (hemolytic uremic syndrome), atypical | | + + + | Hx of Clostridium difficile infection | | + + + | Chronic deep vein thrombosis (DVT) | | + + + | Obesity, Class I, BMI 30-34.9 | | + + + Resolved Problems + + + + | Problem | Noted | Resolved | | | Date | Date | + + + + | Fever and chills | 08/10/20 | | | | 16 | 6 | + + + + | Neutropenic fever | 07/31/20 | | | | 16 | 6 | + + + + | Mucositis due to chemotherapy | 07/31/20 | | | | 16 | 6 | + + + + | Chemotherapy induced nausea and vomiting | 07/18/20 | | | | 16 | 7 | + + + + Social History + [...] recent travel history available. | + + Last Filed Vital Signs + + + + + | Vital Sign | Reading | Time Taken | Comments | + + + + + | Blood Pressure | 123/86 | 08/27/2016 9:59 AM | | | | | PST | | + + + + + | Pulse | 96 | 08/27/2016 9:59 AM | | | | | PST | | + + + + + | Temperature | 36.9 C (98.4 F) | 08/27/2016 9:59 AM | | | | | PST | | + + + + + | Respiratory Rate | 18 | 08/27/2016 9:59 AM | | | | | PST | | + + + + + | Oxygen Saturation | 100% | 08/27/2016 9:59 AM | | | | | PST | | + + + + + | Inhaled Oxygen | - | - | | | Concentration | | | | + + + + + | Weight | 96.3 kg (212 lb 4.9 | 08/27/2016 9:59 AM | | | | oz) | PST | | + + + + + | Height | 177.8 cm (5' 10") | 08/11/2016 1:57 AM | | | | | PST | | + + + + + | Body Mass Index | 30.46 | 08/11/2016 1:57 AM | | | | | PST | | + + + + + Plan of Treatment + + + + + | Health Maintenance | Due Date | Last Done | Comments | + + + + + | Pneumococcal | | | | | vaccination (1 of 3 | 0 | | | | - PCV13) | | | | + + + + + | Influenza (Flu) | | 05/19/2016, 06/13/2015 | | | vaccination (Season | 9 | | | | Ended) | | | | + + + + + Results Not on filefrom Last 3 Months Insurance + +--------+ +--------+ + +--------+ | Payer | Benefi | Subscriber | Effect | Phone | Address | Type | | | t Plan | ID | maryellen | | | | | | / | | Dates | | | | | | Group | | | | | | + +--------+ +--------+ + +--------+ | CONTRACTS | TRANSP | [phone] | 08/08/ | | | PPO | | | LANT | | 2015-P | | | | | | CONTRA | | resent | | | | | | [place] | | | | | | | | OTHER | | | | | | + +--------+ +--------+ + +--------+ | MODA [employer] | MODA | [phone] | | [phone] | [address] | PPO | | | OEBB | | [phone] | | | | [address] | | esent | | [place], | | | | [place] | | | | [place] [address] | | + +--------+ +--------+ + +--------+ | [employer] | BONE | [phone] | | | [address] | Agency | | | [address] | | [address] | [address] | | | | TXP | | esent | | [place], | | | | | | | | [place] [address] | | + +--------+ +--------+ + +--------+ + +--------+ +--------+ + + | Guarantor Name | Accoun | Relation to | Date | Phone | Billing Address | | | t Type | Patient | of | | | | | | | | | | + +--------+ +--------+ + + | Meggan Otero | Person | Self | [birth year] | | [address] | | | al/Fam | | 1995 | [phone] | [place] [address] | | | matthew | | | 9 (Home) | | + +--------+ +--------+ + + | Meggan Otero | Case | Self | [birth year] | | [address] | | | Rate | | 1995 | - | [place] [address] | | | | | | 9 (Home) | | + +--------+ +--------+ + + Advance Directives + + + + + | Code Status | Date | Date | Comments | | | Activated | Inactivated | | + + + + + | Full Code | 08/11/2016 | 08/12/2016 | | | | 2:18 AM | 7:23 PM | | + + + + + + + + +---+ | | | | | + + + +---+ | Full Code | 07/15/2016 | 08/07/2016 | | | | 3:20 PM | 7:59 PM | | + + + +---+
--- OUTSIDE RECORDS SUMMARY | ~2019-01-06 | XMS | Encounter Summary ---
Demographics + + + | Address | [address] | | | [place] [address] | + + + | Home Phone [...] Team Providers + +------+ + | Care Video Machines Mechanic Name | Role | Phone | + +------+ + | Aashish Hilton MD | PCP | | + +------+ + Reason for Visit + + + | Reason | Comments | + + + | Lab Draw | Power PICC | + + + | Intravenous infusion | NS 1L | + + + | Transfusion | Platelets | + + + Intake Referral (Urgent) [...] | | | | Ramana | MD Jmi | [address] | | | | | | [address] | [address] | | | | | | Ave | [place], [place] | | | | | | [place], [place] | [address] | | | | | | [address] | Phone: | | | | | | Phone: | [phone] | | | | | | [phone] | Fax: | | | | | | Fax: | [phone] | | | | | | [phone] | | +--------+--------+ + + + + Encounter Details +--------+ + + + + | Date | Type | Department | Care Team | Description | +--------+ + + + + | 08/18/ | Clinical | [facility] | | Lab Draw (Power | | 2017 | Support | Hematologic | | PICC); Intravenous | | | Staff | [facility] | | infusion (NS 1L); | | | | [address] | | Transfusion | | | | [facility] | | (Platelets) | | | | Mailcode: [id number] | | | | | | Joanne Herman | | | | | | [place], [place] | | | | | | [address] | | | | | | [phone] | | | +--------+ + + + [...] + + + | Blood Pressure | 117/71 | 08/18/2016 3:49 PM | | | | | PST | | + + + + + | Pulse | 101 | 08/18/2016 3:49 PM | | | | | PST | | + + + + + | Temperature | 37.1 C (98.7 F) | 08/18/2016 3:49 PM | | | | | PST | | + + + + + | Respiratory Rate | 16 | 08/18/2016 3:49 PM | | | | | PST | | + + + + + | Oxygen Saturation | 100% | 08/18/2016 2:00 PM | | | | | PST | | + + + + + | Inhaled Oxygen | - | - | | | Concentration | | | | + + + + + | Weight | 96 kg (211 lb 10.3 | 08/18/2016 2:00 PM | | | | oz) | PST | | + + + + + | Height | - | - | | + + + + + | Body Mass Index | 30.37 | 08/11/2016 1:57 AM | | | | | PST | | + + + + + documented in this encounter Progress Notes Juliette Pierce, ETIENNE - 08/18/2016 1:20 PM PST Assessment Patient ambulates into clinic today with their caregiver. Pt with hx of Nodular Sclerosis H odgkin's Lymphoma, now s/p BEAM conditioned auto (day 0= 07/21/2016 ), currently +28 days post transplant. Patient reports they are feeling well today. Pt reports that she has no new complaints. Labs Power PICC accessed per protocol. Good blood return noted. Appropriate waste discarded. Labs drawn and sent. Power PICC pulse flushed with 20 mL NS. Dressing Change CDI, WNL and due to be changed 08/24/16. Supportive Care Infusion NS 1 liter infused over 2 hours, per orders. Transfusion Lab Results Component Value Date PLT 17 08/18/2016 Orders to transfuse platelet product for a [...] ONC Lines & Tr ansfusions doc flowsheet. Patient did not require Filgrastim today, and it was confirmed with MITA Cat at she did not require a magnesium lab drawn today. Line care provided, see Flowsheet for details. Patient was reminded to call clinic with tem p > 100.4, chills, s/s of bleeding or uncontrolled N/V/D/C. Patient verbalizes understanding . All questions answered. Patient was instructed to check out at the lead front desk agent prior to tiana ving the clinic. Patient d/c d ambulatory in stable condition. Next Appointment in [facility] is on 08/20/16 at 1:15 pm with JASMIN Cat. documented in this enc ounter Plan of Treatment Not on filedocumented as of this encounter Procedures + +--------+ + + + | Procedure Name | Priori | Date/Time | Associated Diagnosis | Comments | | | ty | | | | + +--------+ + + + | TREATMENT PARAMETERS | Routin | 08/18/2016 | Nodular sclerosis | | | #2 - BEACON | e | 2:48 PM | Hodgkin lymphoma of | | | | | PST | lymph nodes of | | | | | | multiple regions | | | | | | (HCC) | | + +--------+ + + + | CMP, POC (BMP+LFT) | Routin | 08/18/2016 | Nodular sclerosis | Results for this | | | e | 2:32 PM | Hodgkin lymphoma of | procedure [...] | + +--------+ + + + | C3 COLIN | Routin | 08/18/2016 | Autologous bone | Results for this | | | e | 2:30 PM | marrow | procedure are in the | | | | PST | transplantation | results section. | | | | | status ([facility]) | | + +--------+ + + + | COLIN IGG | Routin | 08/18/2016 | Autologous bone | Results for this | | | e | 2:30 PM | marrow | procedure are in the | | | | PST | transplantation | results section. | | | | | status ([facility]) | | + +--------+ + + + | ANTIBODY ELUTION | Routin | 08/18/2016 | Autologous bone | Results for this | | | e | 2:30 PM | marrow | procedure are in the | | | | PST | transplantation | results section. | | | | | status (HCC) | | + +--------+ + + + | ANTIBODY | Routin | 08/18/2016 | Autologous bone | Results for this | | IDENTIFICATION | e | 2:30 PM | marrow | procedure are in the | | | | PST | transplantation | results section. | | | | | status (HCC) | | + +--------+ + + + | ANTIBODY SCREEN | Urgent | 08/18/2016 | Autologous bone | Results for this | | | | 2:30 PM | marrow | procedure are in the | | | | PST | transplantation | results section. | | | | | status ([facility]) | | + +--------+ + + + | TYPE AND SCREEN | Urgent | 08/18/2016 | Autologous bone | Results for this | | | | 2:30 PM | marrow | procedure are in the | | | | PST | transplantation | results section. | | | | | status ([facility]) | | + +--------+ + + + | ABO & RH TYPE | Urgent | 08/18/2016 | Autologous bone | Results for this | | | | 2:30 PM | marrow | procedure are in the | | | | PST | transplantation | results section. | | | | | status ([facility]) | | + +--------+ + + + | PRODUCT - PLATELET | Routin | 08/18/2016 | Autologous bone | Results for this | | PHERESIS | e | 2:29 PM | marrow | procedure are in the | | LEUKOREDUCED | | PST | transplantation | results section. | | | | | status (HCC) | | + +--------+ + + + | TREATMENT PARAMETERS | Routin | 08/18/2016 | Nodular sclerosis | | | #1 - BEACON | e | 2:28 PM | Hodgkin lymphoma of | | | | | PST | lymph nodes of | | | | | | multiple regions | | | | | | (HCC) | | + +--------+ + + + | TREATMENT PARAMETERS | Routin | 08/18/2016 | Nodular sclerosis | | | #1 - BEACON | e | 2:28 PM | Hodgkin lymphoma of | | | | | PST | lymph nodes of | | | | | | multiple regions | | | | | | (HCC) | | + +--------+ + + + | CBC+DIFF,POC | Routin | 08/18/2016 | Nodular sclerosis | Results for this | | | e | 2:21 PM | Hodgkin lymphoma of | procedure [...] + | TREATMENT PARAMETERS | Routin | 08/18/2016 | Nodular sclerosis | | | #2 - BEACON | e | 1:53 PM | Hodgkin lymphoma of | | | | | PST | lymph nodes of | | | | | | multiple regions | | | | | | (HCC) | | + +--------+ + + + | NURSING | Routin | 08/18/2016 | Nodular sclerosis | | | COMMUNICATION #3 - | e | 1:53 PM | Hodgkin lymphoma of | | | [facility]ON | | PST | lymph nodes of | | | | | | multiple regions | | | | | | (HCC) | | + +--------+ + + + | NURSING | Routin | 08/18/2016 | Nodular sclerosis | | | COMMUNICATION #2 - | e | 1:53 PM | Hodgkin lymphoma of | | | [place]ON | | PST | lymph nodes of | | | | | | multiple regions | | | | | | (HCC) | | + +--------+ + + + | NURSING | Routin | 08/18/2016 | Nodular sclerosis | | | COMMUNICATION #1 - | e | 1:53 PM | Hodgkin lymphoma of | | | [place]ON | | PST | lymph nodes of | | | | | | multiple regions | | | | | | (HCC) | | + +--------+ + + + documented in this encounter Results CMP, POC (BMP+LFT) (08/18/2016 2:32 PM PST) + +---------+ + + + | Component | Value | Ref Range | Performed | Pathologist | | | | | At | Signature | + +---------+ + + + | SODIUM, POC | 136 | 134 - 143 | [facility] - | | | | | mmol/L | [facility] | | | | | | [facility] | | | | | | OF CARE | | | | | | TESTS | | + +---------+ + + + | POTASSIUM, | 3.3 (L) | 3.4 - 5.0 | [facility] - | | | POC | | mmol/L | [facility] | | | | | | [facility] | | | | | | OF CARE | | | | | | TESTS | | + +---------+ + + + | TOTAL CO2, | 25 | 22 - 29 mmol/L | [facility] [...] | | | POC | | | [facility] | | | [...] +---------+ + + + | CALCIUM | 8.7 | 8.6 - 10.2 | [facility] - | | | TOTAL, POC | | mg/dL | [facility] | | | | | | [facility] | | | | | | OF CARE | | | | | | TESTS | | + +---------+ + + + | BUN, POC | 13 | 6 - 20 mg/dL | [facility] - | | | | | | [facility] | | | | | | [facility] | | | | | | OF CARE | | | | | | TESTS | | + +---------+ + + + | CREATININE, | 1.1 | 0.6 - 1.1 mg/dL | [facility] - | | | POC | | | [facility] | | | | | | [facility] | | | | | | OF CARE | | | | | | TESTS | | + +---------+ + + + | ALK PHOS, | 94 (H) | 33 - 76 U/L | [facility] - | | | CMP POC | | | [facility] | | | | | | [facility] | | | | | | OF CARE | | | | | | TESTS | | + +---------+ + + + | ALT, CMP | <20 | 0 - 60 U/L | [facility] - | | | POC | | | [facility] | | | | | | [facility] | | | | | | OF CARE | | | | | | TESTS | | + +---------+ + + + | AST, CMP | <20 | 0 - 41 U/L | [facility] [...] +---------+ + + + | PROTEIN | 6.6 | 6.1 - 7.9 g/dL | [facility] - | | | TOTAL, CMP | | | [facility] | | | POC | | | [place] [place] | | [...] + | [facility] | [address] | [place], [place] | | | [facility] | [address] | [address] | | | TESTS | | | | + + + + + ANTIBODY ELUTION (08/18/2016 2:30 PM PST) + + + + + + | Component | Value | Ref Range | Performed | Pathologist | | | | | At | Signature | + + + + + + | ANTIBODY | Negative | | [facility] | | | ELUTION 1 | | | LABORATORY | | | [...] [facility] | [address] | [place] [address] | | | SERVICES, | [address] | | | | TRANSFUSION MEDICINE | | | | + + + + + ANTIBODY IDENTIFICATION (08/18/2016 2:30 PM PST) + + + + + + | Component | Value | Ref Range | Performed | Pathologist | | | | | At | Signature | + + + + + + | ANTIBODY 1 | Anti-Jka | | [facility] | | | | [...] | + + + + + | [facility] | [address] | [place] [address] | | | SERVICES, | [address] | | | | TRANSFUSION MEDICINE | | | | + + + + + C3 COLIN (08/18/2016 2:30 PM PST) + + + + + + | Component | Value | Ref Range | Performed | Pathologist | | | | | At | Signature | + + + + + + | COLIN C3 | Negative | | [facility] | | | | [...] [facility] | [address] | [place] [address] | | | SERVICES, | [address] | | | | TRANSFUSION MEDICINE | | | | + + + + + COLIN IGG (08/18/2016 2:30 PM PST) + + + + + + | Component | Value | Ref Range | Performed | Pathologist | | | | | At | Signature | + + + + + + | SHAYNA, IGG | Positive | | [facility] | | [...] [facility] | [address] | [place] [address] | | | SERVICES, | [address] | | | | TRANSFUSION MEDICINE | | | | + + + + + ANTIBODY SCREEN (08/18/2016 2:30 PM PST) + + + + + + | Component | Value | Ref Range | Performed | Pathologist | | | | | At | Signature | + + + + + + | Antibody | Positive | | [facility] | | | Screen [...] [facility] | [address] | [place] [address] | | | SERVICES, | [address] | | | | TRANSFUSION MEDICINE | | | | + + + + + ABO & RH TYPE (08/18/2016 2:30 PM PST) + + + + + [...] [facility] | [address] | [place] [address] | | | SERVICES, | [address] | | | | TRANSFUSION MEDICINE | | | | + + + + + PRODUCT - PLATELET PHERESIS LEUKOREDUCED (08/18/2016 2:29 PM PST) + + + + + [...] + + + + | PRODUCT | [id number] | | [facility] | | | UNIT [...] + + + | UNIT RH | NEG | | [facility] | | | | [...] + + + + | EXPIRATION | [id number] | | [facility] | | | DATE | | | LABORATORY | | | | | | SERVICES, | | | | | | TRANSFUSION | | | | | | MEDICINE | | + + + + + + | BLOOD TYPE | 0600 | | [facility] | | | BARCODE | | | LABORATORY | | | | | | SERVICES, | | | | | | TRANSFUSION | | | | | | MEDICINE | | + + + + + + | BLOOD | [id number] | | [facility] | | | PRODUCT [...] [facility] | [address] | [place] [address] | | | SERVICES, | [address] | | | | TRANSFUSION MEDICINE | | | | + + + + + CBC+DIFF,POC (08/18/2016 2:21 PM PST) + + + + + + | Component | Value | Ref Range | Performed | Pathologist | | | | | At | Signature | + + + + + + | WBC POC | 5.6 | 4.4 - 11.0 | [facility] - | | | | | 10*3/uL | [facility] | | | | | | [facility] | | | | | | OF CARE | | | | | | TESTS | | + + + + + + | RBC POC | 2.54 (L) | 4.00 - 5.20 [...] + + + | HCT POC | 23.3 (L) | 36.0 - 46.0 % | [facility] - | | | | | | [facility] | | | | | | [facility] | | | | | | OF CARE | | | | | | TESTS | | + + + + + + | MCV POC | 91.7 | 80.0 - 96.0 fL | [facility] - | | | | | | [facility] | | | | | | [facility] | | | | | | OF CARE | | | | | | TESTS | | + + + + + + | MCH POC | 31.5 | 29.0 - 32.0 pg | [facility] - | | | | | | [facility] | | | | | | [facility] | | | | | | OF CARE | | | | | | TESTS | | + + + + + + | MCHC POC | 34.3 | 33.0 - 35.5 | [facility] - | | | | | g/dL | [facility] | | | | | | [facility] | | | | | | OF CARE | | | | | | TESTS | | + + + + + + | RDW SD, POC | 43.3 | 35.1 - 46.3 fL | [facility] - | | | | | | [facility] | | | | | | [facility] | | | | | | OF CARE | | | | | | TESTS | | + + + + + + | PLT POC | 17 (L) | 150 - 400 | [facility] - | | | | | 10*3/uL | [facility] | | | | | | [facility] | | | | | | OF CARE | | | | | | TESTS | | + + + + + + | MPV POC | 10.3 | 9.7 - 12.3 fL | [facility] - | | | | | | [facility] | | | | | | [place] POINT | | | | | | OF CARE | | | | | | TESTS | | + + + + + + | NEUTROPHIL% | 71.9 (H) | 50.0 - 70.0 % | [facility] - | | | POC | | | [facility] | | | | | | [facility] | | | | | | OF CARE | | | | | | TESTS | | + + + + + + | LYMPH% POC | 18.1 | 18 - 42 % | [facility] - | | | | | | [facility] | | | | | | [facility] | | | | | | OF CARE | | | | | | TESTS | | + + + + + + | MONO %, POC | 9.1 (H) | 3.5 - 9.0 % | [facility] - | | | | | | [facility] | | | | | | [facility] | | | | | | OF CARE | | | | | | TESTS | | + + + + + + | EOS %, POC | 0.7 (L) | 1.0 - 3.0 % | [facility] - | | | | | | [facility] | | | | | | [facility] | | | | | | OF CARE | | | | | | TESTS | | + + + + + + | BASO %, POC | 0.2 | 0.0 - 2.0 % | [facility] - | | | | | | [facility] | | | | | | [facility] | | | | | | OF CARE | | | | | | TESTS | | + + + + + + | NEUTROPHIL# | 4.0 | 1.8 - 7.7 | [facility] - | | | POC | | 10*3/uL | [facility] | | | | | | [facility] | | | | | | OF CARE | | | | | | TESTS | | + + + + + + | LYMPH# POC | 1.0 | 1.0 - 4.8 | [facility] - [...] + + + + | CBC | Atyp Lym. Imm Gran. Lft | | [facility] - | | | COMMENT, | Shift. | | [facility] | | | [...] + + | MARIC[facility] KILGORE | [id number] | [place], [place] | | | [facility] | [address] | [id number] | | | TESTS | | | [...] | | + +---------+ + +------+------+ | NaCl 0.9 % solution 1,000 mL, | New Bag | 08/18/19 | 1,000 mL | | | | intravenous, ONCE, 1 dose, Tue | | 17 2:10 | | | | | 08/18/16 at 1400 | | PM PST | | | | + +---------+ + +------+------+ +---+---+ | | | +---+---+ + +-------+ +--------+---+---+ | potassium chloride (KLOR-CON) | Given | 08/18/19 | 40 mEq | | | | packet 40 mEq 40 mEq, oral, | | 17 3:08 | | | | | ONCE, 1 dose, 08/18/16 at 1530 | | PM PST | | | | + +-------+ +--------+---+---+ +---+---+ | | | +---+---+ documented in this encounter"
--- OUTSIDE RECORDS SUMMARY | ~2019-01-06 | XMS | Encounter Summary ---
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,PhD | [address] | | | | | sclerosis | [address] | [address] | | | | | Hodgkin | [facility] | [facility] | | | | | lymphoma, | Rd | Mailcode: | | | | | lymph nodes | [place], [place] | [facility] | | | | | of multiple | [address] | [facility] | | | | | sites | Phone: | Pavilion | | | | | | [phone] | [place], [place] | | | | | | Fax: | [address] | | | | | | [phone] | Phone: | | | | | | | [phone] | | | | | | | Fax: | | | | | | | [phone] | +--------+--------+ + + + + Encounter Details +--------+---------+ + + + | Date | Type | Department | Care Team | Description | +--------+---------+ + + + | 08/17/ | Office | Center for | Coreen Grissom, | Nodular sclerosis | | 2017 | Visit | Hematologic | JASMIN [address] | Hodgkin lymphoma of | | | | Malignancies at | [place] | lymph nodes of | | | | [facility] | [place], [place] | multiple regions | | | | [address] | [address] | (HCC) (Primary Dx); | | | | Responsible [facility] | [phone] | Autologous bone | | | | Mailcode: [id number] | | marrow | | | | [facility] | | transplantation | | | | [place], [place] | | status (HCC) | | | | [address] | | | | | | [phone] | | | +--------+---------+ + + + [...] + + + | Blood Pressure | 121/85 | 08/17/2016 1:08 PM | | | | | PST | | + + + + + | Pulse | 117 | 08/17/2016 1:08 PM | | | | | PST | | + + + + + | Temperature | 37.3 C (99.1 F) | 08/17/2016 1:08 PM | | | | | PST | | + + + + + | Respiratory Rate | 18 | 08/17/2016 1:08 PM | | | | | PST | | + + + + + | Oxygen Saturation | 100% | 08/17/2016 1:08 PM | | | | | PST | | + + + + + | Inhaled Oxygen | - | - | | | Concentration | | | | + + + + + | Weight | 95.8 kg (211 lb 3.2 | 08/17/2016 1:08 PM | | | | oz) | PST | | + + + + + | Height | - | - | | + + + + + | Body Mass Index | 30.3 | 08/11/2016 1:57 AM | | | | | PST | | + + + + + documented in this encounter Patient Instructions Patient Instructions Coreen Grissom PA - 08/17/2016 1:15 PM PST-Take your temperature regularly (3-4 x daily) and to call immediately for a temperature of 100.4 or greater. -Return tomorrow at 1:20 for repeat labs, fluids and possibly neupogen.Electronically kira d by JASMIN Castaneda at 08/17/2016 1:56 PM PST documented in this encounter Progress Notes Coreen Grissom PA - 08/17/2016 1:15 PM PSTFormatting of this note might be different f rom the original. 08/17/2016 [facility] Physician: Quirino Moreno MD Local Oncologist: Dr. Hilton PCP: Aashish Hilton MD Hematologic Malignancy: Relapsed HL Conditioning regimen: BEAM Date of transplant: 07/21/16 Donor: Autologous Hematologic History: Meggan Otero is a 20 y.o. 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, admit for autoBMT Local oncologist: Aashish Hilton MD ([facility]/[place]) Benign Hematology: Jim Michael MD ([facility]) Pediatric Heme/Onc: Anh Moreland MD ([place]) Nephrology: Raghav Miller MD ([place]) 04/2015 presented with flank pain CT C/A/P: 11 cm anterior mediastinal mass, pleural effusion & L supraclav adenopathy Needle bx: classical hodgkins, nodular sclerosing type Thoracentesis: reactive/benign BMBx: neg PET: bulky mediastinal mass, SUV 16; bilateral neck SUV 15; also R>L pleural effusion 05/10/15 began ABVE-PC (as per pediatric [id number]) via femoral line 05/16/15 presented with sepsis [...] L neck: classical Hodgkins Above therapy in [place] -> moved to [place] Continued on ecalizumab per benign heme (Fernanda) - genetic testing for aHUS PENDING GDP x3 06/2017 CR by PET Reece placed GCSF stem cell mobilization: 7.3 x10^6 cd34/kg She was recently hospitalized from 07/15/16-08/07/16 for her initial transplant [facility]. For complete details of her recent hospitalization, please see discharge dictation in EPIC. Briefly, her transplant hospitalization was complicated by: pancytopenia, neutropenic fevers, MRSA bacteremia, orthostatic hypotension, chemotherapy induced nausea, mucositis. Meggan Otero is a 20 y.o. female with hx of relapsed HL, currently day +27 s/p BEAM co nditioned autologous peripheral blood stem cell transplant. Interval Hx: Meggan presents to clinic today for her routine scheduled visit. She is accompanied by her m other and in clinic today. Meggan is doing well today and had a good weekend. She s till has some nausea but it is improving. She is taking zofran BID and ativan PRN. She den ies emesis and is eating normally. She reports drinking ~2L/day in PO fluids. Her energy l evel is low but improving. She denies fevers or diarrhea. Review of [...] hours as needed. Indications: Constipation Vitals: BP 121/85 | Pulse 117 | Temp (Src) 37.3 C (99.1 F) (Oral) | RR 18 | Wt 95.8 kg (211 lb 3.2 oz) | SpO2 100% | BMI 30.3 kg/(m^2) Physical Exam: General: This is a [...] 72 hours (or 3 results) Recent Labs 08/17/16 1323 08/17/16 1337 WBC 1.8* 1.65* HB 8.4* 8.4* HCT 24.4* 24.8* PLT 23* 26* NEUTROPERC -- 29.7* LYMPHPERC -- 51.5* MONOPERC 15.8* 15.2* BASOPERC 0.0 0.6 EOSPERC 2.3 1.8 Chemistries: Last 72 Hours (or 3 results): Recent Labs 08/10/16 2053 08/11/16 0604 08/12/16 0101 08/13/16 1241 08/13/16 1301 08/17/16 1256 08/17/16 1320 NA 145 145 146* -- 138 -- 139 K 3.4 3.8 3.2* -- 3.5 -- 4.0 CL 113* 113* 113* -- 104 -- 104 BICARB 20* 23 23 -- 27 -- 26 BUN 23* 24* 17 -- 12 -- 11 CR 1.62* 1.45* 1.32* -- 1.2* -- 1.3* GLU 104* 91 95 -- 86 -- 94 CA 8.5* 8.2* 8.3* -- 8.6* -- 9.3 AST 26 29 22 20 -- 19 -- ALT 15 15 15 17 -- 22 -- AP 114* 97 92 110* -- 111* -- TBILI 2.4* 1.0 0.8 0.7 -- 0.3 -- TP 6.5 5.6* 5.7* 6.6 -- 6.9 -- ALB 3.4* 3.0* 2.9* 3.4* -- 3.7 -- ANIONGAP 12 9 10 -- -- -- -- ANIONALBCOR 13* 11 12* -- -- -- -- Hematology: Hematologic Malignancy: relapsed HL Conditioning Regimen: BEAM Stem cell transplant -Stem Cell product: tolerated stem cell product on 07/21/16 without complications. CD 34 cou nt = 7.3 x 10^6 per kg -BMT Day: +27 CBC reviewed and reveals pancytopenia. ANC 600 today and no clear sign of platelet recover y at this point. 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 Replace per supportive care protocol. Plan: -1L NS bolus IV today. -Zarxio 480 mcg SC x 1 today. -RTC for lab, fluids and zarxio if ANC <1K. -Return to clinic on 08/20 to see me, sooner prn JASMIN Cat [facility] AT [address] Mailcode: [id number] [phone] documented in this encounter Plan of Treatment Not on filedocumented as of this encounter Results BMP + MAG, SWATI CHM (08/20/2016 1:38 PM PST) + +---------+ + + + [...] 4.1 | 3.4 - 5.0 | [facility] - [...] +---------+ + + + | CHLORIDE, | 100 | 97 - 108 mmol/L | [facility] - | | | POC | | | [facility] | | | | | | [facility] | | | | | | OF CARE | | | | | | TESTS | | + +---------+ + + + | GLUCOSE, | 86 | 60 - 99 mg/dL | [facility] - | | | POC | | | [facility] | | | | | | [facility] | | | | | | OF CARE | | | | | | TESTS | | + +---------+ + + + | CALCIUM | 9.1 | 8.6 - 10.2 | [facility] - [...] - | | | | | | [facility] | | | | | | [facility] | | | | | | OF CARE | | | | | | TESTS | | + +---------+ + + + | CREATININE, | 0.9 | 0.6 - 1.1 mg/dL | [facility] - | | | POC | | | [facility] | | | | | | [facility] | | | | | | OF CARE | | | | | | TESTS | | + +---------+ + + + | LDH, POC | 215 (H) | 0 - 206 U/L | [facility] - | | | | | | [facility] | | | | | | [facility] | | | | | | OF CARE | | | | | | TESTS | | + +---------+ + + + | MAGNESIUM, | 1.5 (L) | 1.8 - 2.5 [...] + | [facility] | [address] | [place], [place] | | | [facility] | [address] | [address] | | | TESTS | | | | + + + + + CBC+DIFF,POC (08/20/2016 1:07 PM PST) + + + + + + | Component | Value | Ref Range | Performed | Pathologist | | | | | At | Signature | + + + + + + | WBC POC | 4.0 (L) | 4.4 - 11.0 | [facility] - | | | | | 10*3/uL | [facility] | | | | | | [facility], POINT | | | | | | OF CARE | | | | | | TESTS | | + + + + + + | RBC POC | 2.30 (L) | 4.00 - 5.20 | [facility] - | | | | | 10*6/uL | [facility] | | | | | | [facility] | | | | | | OF CARE | | | | | | TESTS | | + + + + + + | HGB POC | 7.3 (L) | 12.0 - 16.0 | [facility] - | | | | | g/dL | [facility] | | | | | | [facility] | | | | | | OF CARE | | | | | | TESTS | | + + + + + + | HCT POC | 20.9 (L) | 36.0 - 46.0 % | [facility] - | | | | | | [facility] | | | | | | [facility] | | | | | | OF CARE | | | | | | TESTS | | + + + + + + | MCV POC | 90.9 | 80.0 - 96.0 fL | [facility] - | | | | | | [facility] | | | | | | [facility] | | | | | | OF CARE | | | | | | TESTS | | + + + + + + | MCH POC | 31.7 | 29.0 - 32.0 pg | [facility] - | | | | | | [facility] | | | | | | [facility] | | | | | | OF CARE | | | | | | TESTS | | + + + + + + | MCHC POC | 34.9 | 33.0 - 35.5 | [facility] - | | | | | g/dL | [facility] | | | | | | [facility] | | | | | | OF CARE | | | | | | TESTS | | + + + + + + | RDW SD, POC | 41.1 | 35.1 - 46.3 fL | [facility] - | | | | | | [facility] | | | | | | [facility], POINT | | | | | | OF CARE | | | | | | TESTS | | + + + + + + | PLT POC | 20 (L) | 150 - 400 | [facility] - | | | | | 10*3/uL | [facility] | | | | | | [facility] | | | | | | OF CARE | | | | | | TESTS | | + + + + + + | MPV POC | 12.3 | 9.7 - 12.3 fL | [facility] - | | | | | | [facility] | | | | | | [facility] | | | | | | OF CARE | | | | | | TESTS | | + + + + + + | NEUTROPHIL% | 57.4 | 50.0 - 70.0 % | [facility] - | | | POC | | | [facility] | | | | | | [facility] | | | | | | OF CARE | | | | | | TESTS | | + + + + + + | LYMPH% POC | 23.8 | 18 - 42 % | [facility] - | | | | | | [facility] | | | | | | [facility] | | | | | | OF CARE | | | | | | TESTS | | + + + + + + | MONO %, POC | 17.5 (H) | 3.5 - 9.0 % | [facility] - | | | | | | [facility] | | | | | | [facility] | | | | | | OF CARE | | | | | | TESTS | | + + + + + + | EOS %, POC | 1.0 | 1.0 - 3.0 % | [facility] - | | | | | | [facility] | | | | | | [facility] | | | | | | OF CARE | | | | | | TESTS | | + + + + + + | BASO %, POC | 0.3 | 0.0 - 2.0 % | [facility] - | | | | | | [facility] | | | | | | [facility], POINT | | | | | | OF CARE | | | | | | TESTS | | + + + + + + | NEUTROPHIL# | 2.3 | 1.8 - 7.7 | [facility] - | | | POC | | 10*3/uL | [facility] | | | | | | [facility] | | | | | | OF CARE | | | | | | TESTS | | + + + + + + | LYMPH# POC | 1.0 (L) | 1.0 - 4.8 | [facility] - | | | | | 10*3/uL | [facility] | | | | | | [facility] | | | | | | OF CARE | | | | | | TESTS | | + + + + + + | MONO #, POC | 0.7 | 0.1 - 0.9 | [facility] - [...] + + | CBC | Imm Gran. Lft Shift. | | [facility] - | | [...] + + + | [facility] | [address] | [place], [place] | | | [facility]INT OF CARE | [address] | [address] | | | TESTS | | | | + + + + + HAPTOGLOBIN, SERUM (08/20/2016 12:37 PM PST) + +-------+ + + + | Component | Value | Ref Range | Performed | Pathologist | | | | | At | Signature | + +-------+ + + + | HAPTOGLOBIN | 124 | 30 - 200 mg/dL | [facility] [...] + | [facility] - | [address] | [place] [address] | | | [place] | | | | + + + + + LIVER SET (AST,ALT,BILI TOTAL,BILI DIRECT,ALK PHOS,ALB,PROT TOTAL) (08/20/2016 12:37 PM PST ) + +---------+ + + [...] + + + | ALK PHOS | 122 (H) | 42 - 98 U/L | [...] [facility] | [address] | [place] [address] | | | SERVICES, CORE | [address] | | | + + + + + PHOSPHORUS, PLASMA (08/20/2016 12:37 PM PST) + +-------+ + + + [...] | + + + + + | [facility] | [address] [facility] | [place] [address] | | | SERVICES, CORE | [address] | | | + + + + + CMP, POC (BMP+LFT) (08/18/2016 2:32 PM PST) [...] | | | POC | | | [facility] | | | | | [...] | + + + + + | [facility] | [address] | [place], [place] | | | [place] [facility] | [facility] | [address] | | | TESTS | | | [...] - | | | | | | [facility] | | | | | [...] [facility] | [address] | [place], [place] | | | [facility] | [address] | [address] | | | TESTS | | | [...]
--- OUTSIDE RECORDS SUMMARY | ~2019-01-06 | XMS | Encounter Summary ---
Demographics + + + | Address | NEED ADDRESS | | | [place] [address] | + + + | Home Phone | | + + + | Preferred Language | Unknown | + + + | Marital Status | Single | + + + | Mosque Affiliation | Unknown | + + + | Race | Unknown | + + + | Ethnic Group | Unknown | + + + Author + + + | Author | [facility] | | | and [place] | + + + | Organization | [facility] | | | and [place] | + + + | Address | Unknown | + + + | Phone | Unavailable | + + + Support + + + + + | Name | Relationship | Address | Phone | + + + + + | Qamar Wynne | ECON | [address] | | | | | [place] | | | | | [address] | | + + + + + | Merlyn Otero | ECON | [address] [facility] [address] | | | | | [place] | | | | | [address] | | + + + + + Care Team Providers + +------+ + | Care Yard Loader Operator Name | Role | Phone | [...] Description | +--------+--------+ + + + | 10/17/ | Refill | [facility] | [place], | Medication Refill | | 2019 | | [facility] | Aashish Carpenter MD [address] | | | | | [facility] [address] | [facility] | | | | | [facility] | [place] [address] | | | | | [place] [address] | [phone] | | | | | [phone] | | | +--------+--------+ + + + [...] [address] | | | | | | [address] | | | | | | [place] [address] | | | | | | [phone] | | | | | | | | +--------+ + + + + | 01/22/ | Appointment | Oncology | Lida, | | | 2018 | | | MD Farida Camacho | | | | | | [address] | | | | | | [place] [address] | | | | | | [phone] | | | | | | | | +--------+ + + + + documented as of this encounter Visit Diagnoses Not on filedocumented in this encounter"
--- OUTSIDE RECORDS SUMMARY | ~2019-01-06 | XMS | Encounter Summary ---
Demographics + + + | Address | [address] | | | [place] [address] | + + + | Home Phone | | + + + | Preferred Language | Unknown | + + + | Marital Status | | + + + | Roman Catholic Affiliation | NON | + + + | Race | White | + + + | Ethnic Group | Not or | + + + Author + + + | Author | [facility] | + + + | Organization | [facility] | + + + | Address [...] Team Providers + +------+ + | Care Remote Sensing Specialist Name | Role | Phone | [...] | 2016 | Visit | Hematologic | BILLBOARD INSTALLER [address] [facility] | Hodgkin lymphoma of | | | | Malignancies at | [facility] [address] [facility] [address] | lymph nodes of | | | | [facility] | [place], [place] | multiple regions | | | | [address] | [address] | ([facility]) (Primary Dx) | | | | [address] | [phone] | | | | | Mailcode: [id number] | | | | | | [address] | | | | | | [place], [place] | | | | | | [address] | | | | | | [phone] | | | +--------+---------+ + + + [...] documented in this encounter Progress Notes Vanessa Osborne, BILLBOARD INSTALLER - 07/05/2016 1:30 PM PSTFormatting of this [...] [facility] Subjective: Ms. Otero states that she [...] [facility] AT [address] Mailcode: [id number] [phone] documented in this encounter Plan of Treatment Not on filedocumented as of this encounter Procedures + +--------+ + + + | Procedure Name | Priori | Date/Time | Associated Diagnosis | Comments | | | ty | | | | + +--------+ + + + | [place] PROG CELL | Routin | 07/05/2016 | [...]
--- OUTSIDE RECORDS SUMMARY | ~2019-01-06 | XMS | Encounter Summary ---
Demographics + + + | Address | [address] | | | [place] [address] | + + + | Home Phone [...] Team Providers + +------+ + | Care Gas Line Servicer Name | Role | Phone | + +------+ + | No Pcp Per Patient | PCP | Unavailable | + +------+ + Reason for Visit +--------+ + | Reason | Comments | +--------+ + | Other | Soliris administered at [facility]? | +--------+ + Encounter Details +--------+ + + + + | Date | Type | Department | Care Team | Description | +--------+ + + + + | 04/01/ | Telephone | Center for | Quirino Moreno I, | Other (Soliris | | 2016 | | Hematologic | ,PhD [address] | administered at | | | | Malignancies at | [address] | [facility]?) | | | | [facility] | [place], [place] | | | | | [address] | [address] | | | | | [facility] | [phone] | | | | | Mailcode: [id number] | | | | | | [address] | | | | | | [place], [place] | | | | | | [address] | | | | | | [phone] | | | +--------+ + + + [...]
--- OUTSIDE RECORDS SUMMARY | ~2019-01-06 | XMS | Encounter Summary ---
Demographics + + + | Address | [address] | | | [place] [address] | + + + | Home Phone [...] + + + | Author | [facility] | + + + | Organization | [facility] | + + + | Address [...] Team Providers + +------+ + | Care Clinic Director Name | Role | Phone | + +------+ + | No Pcp Per Patient | PCP | Unavailable | + +------+ + Reason for Visit + + + | Reason | Comments | + + + | Immunotherapy | | + + + | Lab Draw | | + + + Other (Routine) +--------+--------+ + + + + | Status | Reason | Specialty | Diagnoses / | Referred By | Referred To | | | | | Procedures | Contact | Contact | +--------+--------+ + + + + | Closed | | Non [facility] | Diagnoses | | [facility] | | | | Department | Nodular | Fernanda, | Epic Dept | | | | | sclerosis | MD Jim | | | | | | Hodgkin | [address] | | | | | | lymphoma, | Ave | | | | | | lymph nodes | [place], [place] | | | | | | of multiple | [address] | | | | | | sites | Phone: | | | | | | Procedures | [phone] | | | | | | [facility] | Fax: | | | | | | ECULIZUMAB, | [phone] | | | | | | 10 MG [facility] | | | | | | | THER/PROPH/D | | | | | | | IAG IV [facility] | | | | | | | THR/PRPH/DX | | | | | | | IV INF,IN | | | | | | | eculizumab | | | | | | | (ANGEL) | | | | | | | 1,200 mg in | | | | | | | NaCl 0.9 % | | | | | | | IV | | | +--------+--------+ + + + + Encounter Details +--------+ + + + + | Date | Type | Department | Care Team | Description | +--------+ + + + + | 04/07/ | Clinical | Hematology/Medical | Nurse3, Hem [address] | Immunotherapy; Lab | | 2015 | Support | Oncology at [facility] | [address] [place], | Draw | | | Staff | [address] | [place] [address] Chr10, Hem | | | | | Mailcode: Center | [address] | | | | | for Health and | [place] [address] | | | | | Healing, [address] | | | | | | [place], [place] | | | | | | [address] | | | | | | [phone] | | | +--------+ + + + [...] + + + | Blood Pressure | 135/83 | 04/07/2016 2:00 PM | | | | | PDT | | + + + + + | Pulse | 112 | 04/07/2016 2:00 PM | | | | | PDT | | + + + + + | Temperature | 37.2 C (98.9 F) | 04/07/2016 2:00 PM | | | | | PDT | | + + + + + | Respiratory Rate | 16 | 04/07/2016 2:00 PM | | | | | PDT | | + + + + + | Oxygen Saturation | 100% | 04/07/2016 2:00 PM | | | | | PDT | | + + + + + | Inhaled Oxygen | - | - | | | Concentration | | | | + + + + + | Weight | 87.1 kg (192 lb 1.6 | 04/07/2016 2:00 PM | | | | oz) | PDT | | + + + + + | Height | 177.8 cm (5' 10") | 04/07/2016 2:00 PM | | | | | PDT | | + + + + + | Body Mass Index | 27.56 | 04/07/2016 2:00 PM | | | | | PDT | | + + + + + documented in this encounter Progress Francisca Schafer RN - 04/07/2016 3:09 PM PDTChemotherapy Nurse Note Name: Meggan Sharri Otero Date: 04/07/2016 Physician: Mao Michael Allergies: Meggan is allergic to promethazine and sulfacetamide sodium. Diagnosis: Non-Hodgkins Lymphoma Significant Other: mother and at chairside. Nursing Assessment: Fever: no; Diarrhea:No Constipation: No SOB / Cough: no; Rash: no Edema: no; Mucositis: no; Urinary: no; Neuropathy: no; S/S Bleeding: no; Severity (1=Not at all, 2=A little, 3=Quite a bit, 4=Very much) Nausea and/or Vomitin Fatigue: 2 Pain: 0 Denies Pain today Narrative: Patient here for Solaris infusion. PAC accessed per protocol and CBC results g iven and reviewed and LDH and special lab for HUS drawn and sent to core lab and given to Shawn george RN. Positive blood return on IV line prior and after infusion. Medication infused wit h 250ml NS sidearm bag. Pt tolerated without incident. PAC flushed and deaccessed per pro tocol. 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 Refer to MAR and Onc Lines and Transfusions doc flowsheet for treatment details. documented in this encounter Plan of Treatment Not on filedocumented as of this encounter Procedures + +--------+ + + + | Procedure Name | Priori | Date/Time | Associated Diagnosis | Comments | | | ty | | | | + +--------+ + + + | NURSING | Routin | 04/07/2016 | HUS (hemolytic | | | COMMUNICATION #3 - | e | 3:09 PM | uremic syndrome), | | | [facility] | | PDT | atypical (HCC) | | + +--------+ + + + | NURSING | Routin | 04/07/2016 | HUS (hemolytic | | | COMMUNICATION #1 - | e | 3:09 PM | uremic syndrome), | | | [facility] | | PDT | atypical (HCC) | | + +--------+ + + + | CBC+DIFF,POC | Routin | 04/07/2016 | HUS (hemolytic | Results for this | | | e | 2:29 PM | uremic syndrome), | procedure are in the | | | | PDT | atypical (HCC) | results section. | + +--------+ + + + | LDH TOTAL, PLASMA | Routin | 04/07/2016 | HUS (hemolytic | Results for this | | | e | 2:09 PM | uremic syndrome), | procedure are in the | | | | PDT | atypical (HCC) | results section. | + +--------+ + + + documented in this encounter Results CBC+DIFF,POC (04/07/2016 2:29 PM PDT) + + + + + + | Component | Value | Ref Range | Performed | Pathologist | | | | | At | Signature | + + + + + + | WBC POC | 6.8 | 4.4 - 11.0 | [facility] | | | | | 10*3/uL | PO[facility] | | | | | | CARE TESTS | | + + + + + + | RBC POC | 3.97 (L) | 4.00 - 5.20 | [facility], | | | | | 10*6/uL | [facility] | | | | | | CARE TESTS | | + + + + + + | HGB POC | 12.0 | 12.0 - 16.0 | [facility], | | | | | g/dL | [facility] | | | | | | CARE TEST[facility] | | + + + + + + | HCT POC | 36.5 | 36.0 - 46.0 % | [facility], | | | | | | [facility] | | | | | | CARE TESTS | | + + + + + + | MCV POC | 91.9 | 80.0 - 96.0 fL | [facility], | | | | | | PO[facility] | | | | | | CARE TESTS | | + + + + + + | MCH POC | 30.2 | 29.0 - 32.0 pg | [facility] | | | | | | POINT [facility] | | | | | | CARE TESTS | | + + + + + + | MCHC POC | 32.9 | 33.0 - 35.5 | [facility], | | | | | g/dL | POINT [facility] | | | | | | CARE TESTS | | + + + + + + | RDW SD, POC | 41.8 | 35.1 - 46.3 fL | [facility] | | | | | | POINT OF | | | | | | CARE TESTS | | + + + + + + | PLT POC | 285 | 150 - 400 | [facility], | | | | | 10*3/uL | [facility] | | | | | | CARE TESTS | | + + + + + + | MPV POC | 9.2 (L) | 9.7 - 12.3 fL | [facility], | | | | | | POINT OF | | | | | | CARE TESTS | | + + + + + + | NEUTROPHIL% | 72.7 (H) | 50.0 - 70.0 % | [facility], | | | POC | | | POINT OF | | | | | | CARE TESTS | | + + + + + + | LYMPH% POC | 15.8 (L) | 18 - 42 % | [facility] | | | | | | POINT OF | | | | | | CARE TESTS | | + + + + + + | MONO %, POC | 10.2 (H) | 3.5 - 9.0 % | [facility], | | | | | | POINT OF | | | | | | CARE TESTS | | + + + + + + | EOS %, POC | 1.2 | 1.0 - 3.0 % | [facility], | | | | | | POINT OF | | | | | | CARE TESTS | | + + + + + + | BASO %, POC | 0.1 | 0.0 - 2.0 % | [facility], | | | | | | POINT OF | | | | | | CARE TESTS | | + + + + + + | NEUTROPHIL# | 5.0 | 1.8 - 7.7 | [facility], | | | POC | | 10*3/uL | PO[facility] | | | | | | CARE TESTS | | + + + + + + | LYMPH# POC | 1.1 | 1.0 - 4.8 | [facility], | | | | | 10*3/uL | POINT OF | | | | | | CARE TESTS | | + + + + + + | MONO #, POC | 0.7 | 0.1 - 0.9 | [facility], | | | | | 10*3/uL | POINT OF | | | | | | CARE TESTS | | + + + + + + | EOS #, POC | 0.1 | 0.0 - 0.5 | [facility], | | | | | 10*3/uL | POINT OF | | | | | | CARE TESTS | | + + + + + + | BASO #, POC | 0.0 | 0.0 - 0.1 | [facility], | | | | | 10*3/uL | POINT OF | | | | | | CARE TESTS | | + + + + + + + + | Specimen | + + | Blood - Blood | + + + + + + + | Performing | Address | City/State/Zipcode | Phone Number | | Organization | | | | + + + + + | [facility] | [address] [facility] | [place] [address] | | | OF CARE TESTS | | | | + + + + + LDH TOTAL, PLASMA (04/07/2016 2:09 PM PDT) + +---------+ + + + | Component | Value | Ref Range | Performed | Pathologist | | | | | At | Signature | + +---------+ + + + | LD TOTAL, | 132 | <=250 U/L | [facility] | | [...] + + + + + | [facility] | [address] | [place] [address] | | | SERVICES, [facility] | [address] | | | + + + + + documented in this encounter Visit Diagnoses + + | Diagnosis | + + | HUS (hemolytic uremic syndrome), atypical (HCC) - Primary Hemolytic-uremic syndrome | + + documented in this encounter Administered Medications + +---------+ + +---------+------+ | Medication Order | MAR | Action | Dose | Rate | Site | | | Action | Date | | | | + +---------+ + +---------+------+ | eculizumab (SOLIRIS) 1,200 mg | New Bag | 04/07/20 | 1,200 mg | 411.43 | | | in NaCl 0.9 % IV 1,200 mg, | | 16 3:49 | | mL/hr | | | intravenous, Administer over 35 | | PM PDT | | | | | Minutes, ONCE, 1 dose, Wed | | | | | | | 04/07/16 at 1515, HIGH RISK | | | | | | | MEDICATION, | | | | | | + +---------+ + +---------+------+ +---+---+ | | | +---+---+ documented in this encounter
--- OUTSIDE RECORDS SUMMARY | ~2019-01-06 | XMS | Encounter Summary ---
Demographics + + + | Address | [address] | | | [place] [address] | + + + | Home Phone | | + + + | Preferred Language | Unknown | + + + | Marital Status | | + + + | Faith Affiliation | NON | + + + [...] Team Providers + +------+ + | Care Sleeve Turner Name | Role | Phone | + +------+ + PCP | Unavailable | + +------+ + Encounter Details +--------+ + + + + | Date | Type | Department | Care Team | Description | +--------+ + + + + | 03/16/ | Hospital | LAB SURGICAL | | | | 2016 | Encounter | PATHOLOGY [address] | | | | | [address] | | | | | | [address] [place], [place] | | | | | | [address] | | | +--------+ + + + [...] + +--------+ + + + | PATHOLOGY CONSULT - | Routin | 03/16/2016 | | Results for this | | REVIEW OUTSIDE | e | | | procedure are in the | | SLIDES | | | | results section. | + +--------+ + + + documented in this encounter Results PATHOLOGY CONSULT - REVIEW OUTSIDE SLIDES (03/16/2016) + + + + + + | Component | Value | Ref Range | Performed | Pathologist | | | | | At | Signature | + + + + + + | PATHOLOGY | SOURCE OF SPECIMEN:A | | [facility] | | | CONSULT - | Mediastinal mass, | | DEPARTMENT | | | SLIDES | CT-guided needle core | | OF | | | | biopsySOURCE OF | | PATHOLOGY | | | | SPECIMEN:B Left cervical | | | | | | lymph node, | | | | | | biopsy Clinical | | | | | | History:The patient is a | | | | | | 20 year old female with | | | | | | a history of Hodgkin's | | | | | | lymphoma. | | | | | | Materials | | | | | | Received:Referring | | | | | | Institution: [facility] | | | | | | [facility], | | | | | | [place], | | | | | | [id number] Gaviria | | | | | | Accession Number: | | | | | | [id number] | | | | | | Collection Date: | | | | | | 04/29/2015Sublabeled | | | | | | H&E | | | | | | IHC | | | | | | A1 | | | | | | | | | | | | 3 | | | | | | 4 Specimen | | | | | | BOutside Accession | | | | | | Number: [id number] | | | | | | Collection Date: | | | | | | 03/16/2016Sublabeled | | | | | | H&E | | | | | | IHC | | | | | | A | | | | | | | | | | | | 7 | | | | | | 3 Final | | | | | | Pathologic Diagnosis:A: | | | | | | Mediastinal mass, biopsy | | | | | | ([id number], | | | | | | 04/29/2015): - | | | | | | Nodular sclerosis, | | | | | | classical Hodgkin's | | | | | | lymphoma (see | | | | | | Comment) B: Left | | | | | | cervical lymph node, | | | | | | biopsy ([id number], | | | | | | 03/16/2016): - | | | | | | Nodular sclerosis, | | | | | | classical Hodgkin's | | | | | | lymphoma (see | | | | | | Comment) | | | | | | Comment: Thank you for | | | | | | sharing this case, we | | | | | | agree with the | | | | | | outsideassessment. The | | | | | | mediastinal biopsy and | | | | | | cervical node show | | | | | | similar histologywith | | | | | | extensive fibrosis and a | | | | | | mixture of eosinophils, | | | | | | small lymphocytes | | | | | | andscattered large | | | | | | cells. The large cells | | | | | | show some binucleate | | | | | | forms,hyperchromasia and | | | | | | occasional prominent | | | | | | nucleoli. The large | | | | | | cells arepositive for | | | | | | CD15 and CD30 (provided | | | | | | immunohistochemistry) | | | | | | which wasperformed on | | | | | | both specimens. The | | | | | | large cells in the 2016 | | | | | | lymph node biopsyare | | | | | | also PAX-5 dim and CD20 | | | | | | negative. CD3 highlights | | | | | | background, reactive | | | | | | Tcells. Both biopsies | | | | | | are diagnostic of | | | | | | classical Hodgkin's | | | | | | lymphoma. | | | | | | Case Seen | | | | | | By:Boston Lawrence | | | | | | M.DRae/Hematopathology | | | | | | Torri Gnat | | | | | | M.D./Hematopathologist | | | | | | My electronic | | | | | | signature indicates that | | | | | | I have personally | | | | | | reviewed alldiagnostic | | | | | | slides, the gross and/or | | | | | | microscopic portion of | | | | | | thisreport and | | | | | | formulated the final | | | | | | diagnosis. | | | | | | Rendering | | | | | | Diagnostician: Jose | | | | | | Stalin | | | | | | M.GirishPathologistElectroni | | | | | | lauri Signed | | | | | | 03/25/2016 3:00PM | | | | + + + + + + + + | Specimen | + + | | + + + + + + + | Performing | Address | City/State/Zipcode | Phone Number | | Organization | | | | + + + + + | [facility] | [address] | [place] [address] | | | PATHOLOGY | [address] | | | + + + + + documented in this encounter Visit Diagnoses Not on filedocumented in this encounter"
--- OUTSIDE RECORDS SUMMARY | ~2019-01-06 | XMS | Clinical Summary ---
Demographics + + + | Address | NEED ADDRESS | | | [place] [address] | + + + | Home Phone | | + + + | Preferred Language | Unknown | + + + | Marital Status | Single | + + + | Scientology Affiliation | Unknown | + + + | Race | Unknown | + + + | Ethnic Group | Unknown | + + + Author + + + | Author | [facility] | | | and [place] | + + + | Organization | [facility] | | | and [place] | + + + | Address | Unknown | + + + | Phone | Unavailable | + + + Support + + + + + | Name | Relationship | Address | Phone | + + + + + | RicciQamar | ECON | [address] | | | | | [place] | | | | | [address] | | + + + + + | Merlyn Hernandez | ECON | [id number] | | | | | [place] | | | | | [address] | | + + + + + Care Team Providers + +------+ + | Care Nib Inspector Name | Role | Phone | + +------+ + | Ryan Murry MD | PP | | + +------+ + Allergies + + + + + + | Active Allergy | Reactions | Severity | Noted | Comments | | | | | Date | | + + + + + + | Prochlorperazine | Other (See Comments) | Medium | 09/02/19 | AKA Compazine - | | | | | 17 | Dystonic reaction | + + + + + + | Promethazine | Rash, Other (See | Medium | 04/21/20 | AKA Phenergan - | | | Comments) | | 16 | Dystonic reaction | + + + + + + | Sulfa Antibiotics | Hives, Shortness Of | High | 04/21/20 | | | | Breath | | 16 | | + + + + + + | Sulfacetamide Sodium | Hives | Medium | 04/21/20 | | | | | | 16 | | + + + + + + Medications + + + +---------+------+------+-------+ | Medication | Sig | Dispensed | Refills | Star | End | Statu | | | | | | t | Date | s | | | | | | Date | | | + + + +---------+------+------+-------+ | famotidine | Take 40 mg by mouth | | 0 | | | Activ | | (PEPCID) 40 MG | Daily. | | | | | e | | tablet | | | | | | | + + + +---------+------+------+-------+ | acetaminophen | Take 1,000 mg by | | 0 | | | Activ | | (TYLENOL) 500 mg | mouth every 6 hours | | | | | e | | tablet | as needed for Pain | | | | | | | | (Taking 1000 mg | | | | | | | | daily). | | | | | | + + + +---------+------+------+-------+ | acyclovir | Take 800 mg by mouth | | 0 | | | Activ | | (ZOVIRAX) 200 mg/5 | Daily. | | | | | e | | mL suspension | | | | | | | + + + +---------+------+------+-------+ | OLANZapine | TAKE ONE TABLET BY | 30 | 1 | 07/15 | | Activ | | (ZYPREXA) 10 MG | MOUTH EVERY EVENING | tablet | | 8/20 | | e | | tablet | FOR NAUSEA | | | 17 | | | + + + +---------+------+------+-------+ | carvedilol (COREG) | TAKE ONE TABLET BY | 60 | 5 | 03/2 | | Activ | | 6.25 mg | MOUTH TWICE A DAY | tablet | | 09/03 | | e | | tabletIndications: | (WITH BREAKFAST AND | | | 18 | | | | Secondary | DINNER). | | | | | | | hypertension | | | | | | | + + + +---------+------+------+-------+ | escitalopram | TAKE ONE TABLET BY | 30 | 5 | 05/2 | | Activ | | (LEXAPRO) 10 mg | MOUTH EVERY DAY | tablet | | 3/20 | | e | | tabletIndications: | | | | 18 | | | | Nodular sclerosis | | | | | | | | Hodgkin lymphoma of | | | | | | | | intrathoracic lymph | | | | | | | | nodes (HCC) | | | | | | | + + + +---------+------+------+-------+ | LORazepam (ATIVAN) | take 1 tablet by | 100 | 0 | 11/0 | | Activ | | 1 mg | mouth every 4 hours | tablet | | 8/20 | | e | | tabletIndications: | if needed for nausea | | | 18 | | | | Hodgkin's disease, | anxiety or | | | | | | | nodular sclerosis, | restlessness | | | | | | | of intrathoracic | | | | | | | | lymph nodes (HCC) | | | | | | | + + + +---------+------+------+-------+ | | apply A THICK LAYER | 30 g | 0 | 11/0 | | Activ | | lidocaine-prilocaine | (DIME SIZE) OVER | | | 8/20 | | e | | (EMLA) | PORT AND COVER 1 | | | 18 | | | | creamIndications: | HOUR BEFORE | | | | | | | Hodgkin's disease, | APPOINTMENT | | | | | | | nodular sclerosis, | | | | | | | | of intrathoracic | | | | | | | | lymph nodes (HCC) | | | | | | | + + + +---------+------+------+-------+ | norethindrone | take 1 tablet by | 28 | 0 | 05/0 | | Activ | | (MICRONOR) 0.35 MG | mouth once daily | tablet | | 09/03 | | e | | tabletIndications: | | | | 19 | | | | Hodgkin's disease, | | | | | | | | nodular sclerosis, | | | | | | | | of intrathoracic | | | | | | | | lymph nodes (HCC) | | | | | | | + + + +---------+------+------+-------+ | norethindrone | take 1 tablet by | 28 | 0 | 04/0 | 04/3 | Disco | | (MICRONOR) 0.35 MG | mouth once daily | tablet | | 05/04 | 0/ | ntinu | | tabletIndications: | | | | 19 | 19 | ed | | Hodgkin's disease, | | | | | | | | nodular sclerosis, | | | | | | | | of intrathoracic | | | | | | | | lymph nodes (HCC) | | | | | | | + + + +---------+------+------+-------+ Active Problems + + + | Problem | Noted Date | + + + | Bilateral sciatica | 04/05/2017 | + + + + + | Last Assessment & Plan: Crystal Hernandez complains of low | | back pain. Pain is reproduced with the JOHN maneuver.Crystal | | reports that she has maxed out her physical therapy coverage for | | 2016.Mom will take her to a local chiropracter. | + + +--------+ + | Nausea | 12/29/2016 | +--------+ + + + | Last Assessment & Plan: Crystal continues to have chronic | | nausea on 10 mg of olanzapine nightly.Plan; Continue lorazepam 1 | | mg orally PRN. New fill for #100 today. | + + + + + | Congestive heart failure, NYHA class 1, chronic, systolic | 12/29/2016 | + + + + + | Overview: Formatting of this note might be different from the | | original.ACTIVE DIAGNOSIS: Treatment-Related Congestive Heart | | Failure.Results for CRYSTAL HERNANDEZ ( ) as of | | 01/19/2017 20:36 Ref. Range 06/24/2016 12:30 01/11/2017 10:25 | | LVEF-TTE TRANSTHORACIC ECHO Unknown 55 47 Last Assessment & | | Plan: Crystal Hernandez was evaluated by Dr. Salas, who | | reviewed her echocardiogram and Accident that her ejection fraction | | may be better than originally estimated.He recommended | | discontinuing lisinopril and continuing Coreg. He also suggested | | that there may be non-cardiac causes for dyspnea on exertion and | | tachycardia.Plan; discontinue lisinopril. We agreed to schedule | | pulmonary function testing after care is transferred to . | | [facility]. | + + + + + | Dysphagia | 11/26/2016 | + + + | H/O MRSA infection | 10/05/2016 | + + + | Beta Whitney - Daily Use | 10/05/2016 | + + + | H/O DVT (deep vein thrombosis) | 10/05/2016 | + + + | Anxiety | 10/05/2016 | + + + + + | Last Assessment & Plan: Assessment; Improved. | | Plan; Continue escitalopram. | + + + + + | Immunocompromised state associated with stem cell transplant | 09/30/2016 | + + + + + | Overview: Status Post High Dose Chemotherapy with Beam, | | followed by Autologous Stem Cell Transplant at [facility] on July | | 2015.Plan: intravenous pentamidine today. Last pentamidine on | | January 18, 2017.Received PCV13 in October 2016. Subsequent | | communications from Quirino Moreno's RN to push back additional | | immunizations until after the completion of brentuximab | | vedotin.Seasonal Influenza Fall 2016Comprehensive Reimmunization | | beginning in August 2017.. Last Assessment & Plan: | | Clarification of reimmunization schema from [facility] on 09/28/2016: | | Patient should receive PCV 13 at three months post transplant, | | repeat PCV at six months post transplant, the full reimmunization | | protocol at 12 months post transplant. | + + + + + | Deep vein thrombosis (DVT) | 09/13/2016 | + + + | Hemolytic-uremic syndrome | 09/13/2016 | + + + | History of infectious disease | 09/13/2016 | + + + | Class I, BMI 30-34.9 | 09/13/2016 | + + + | Blood transfusion reaction | 08/11/2016 | + + + + + | Overview: Overview: Patient is sensitized against red cell | | antigen "Jka". Approximately 23% of units are expected to be | | compatible. Allow at least 4-6 hours for completion of | | crossmatch. | + + + + + | Bone marrow transplant status | 07/20/2016 | + + + | Atypical hemolytic uremic syndrome | 04/14/2016 | + + + + + | Overview: ACTIVE DIAGNOSIS: Atypical Hemolytic Uremic | | Syndrome.1. Diagnosed in [place], [place] during initial treatment | | for Hodgkin's Lymphoma. 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 | | Genetic testing in process at [facility].2. Genetic testing at [facility] | [employer]; no complement mutations identified. Last | | Assessment & Plan: Cyrstal Hernandez returned to clinic on | | 04/05/2017 with her mother for follow-up and ongoing treatment of | | her atypical hemolytic syndrome with Soliris (eculizumab).She | | denies bruising or bleeding.Clinical exam is notable for the | | absence of petechiae or ecchymoses.Laboratory exam is notable for | | normal platelet count and minimal elevation of LDH.Assessment; | | atypical hemolytic uremic syndrome-wild type.Plan; Solairs | | (eculizumab) today. Next infusion in two weeks in [place], [place]. 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 1. Initial Diagnosis and management in | | [place], [place] in 2014: Crystal at age 19 was diagnosed with | | Hodgkin's disease after she presented to ER with right flank | | pain. She underwent CT of the abdomen to evaluate the pain on | | 04/15/15 showed a mediastinal mass in the upper cuts so that a CT | | of the chest was then done showing a large anterior mediastinal | | mass measuring approximately 9.4 x 9.3 x 6.6cm and causing | | narrowing of the superior vena cava and displacing it laterally. | | 2. On 04/29/2015 Needle biopsy of Mediastinal mass, biopsy | | ([id number], 04/29/2015): Nodular sclerosis, classical Hodgkin's | | lymphoma.3. She was taken to the OR 05/07/15 for femoral line | | placement, bilateral bone marrow aspirates and biopsies and | | thoracentisis - effusion noted on chest CT from 05/06/15, and | | decision was made to drain and test for malignancy. Bilateral | | bone marrow aspirates/biopsies: negative for disease. 05/07/15: | | Thoracentisis: Benign. Reactive mesothelial cells and | | lymphocytes. 4. On May 10, 2016 she started treatment per | | [id number] for intermediate risk Hodgkin lymphoma on 05/10/15; | | Doxorubicin 53 mg IV x 2 - days 1 and 2 Bleomycin 10.5 IU IV x 1 | | - day 1, day 8 Vincristine 2.8 mg IV x 1 - day 1, day 8 Etoposide | | 260 mg IV x 3 - days 1, 2 and 3 Cyclophosphamide 1,680 mg IV x 1 | | - day 1 Prednisone 42 mg po BID - days 1-3 given inpatient and | | days 4-7 given outpatient.5. Completed 4 cycles of ABVE-PC on | | August 18, 2015. Treatment was complicated by prolonged | | pancytopenia, neutropenic fever, and atypical HUS ascribed to | | bleomycin, which was omitted after Cycle#1.6. CT/PET scan on | | September 04, 2015 demonstrated Deauville 1 response; The | | previously seen hypermetabolic anterior mediastinal mass has | | markedly decreased in size from approximately 8.0 x 11.6 cm to | | 5.0 x 2.4 cm. Metabolic activity has decreased from 16.8 g/mL to | | 2.6 g/mL. Background activity in the adjacent mediastinum is 2.2 | | g/mL.7. Thoracic radiation therapy 2100 cGy in 14 fractions. Long | | term complication of esophageal stricture at 24 cm from the | | incisors was dilated on November 29, 2016 (Harri).8. Asymptomatic | | left cervical lymphadenopathy identified on screening PET/CT scan | | March 11, 2016; Interval development of a hypermetabolic left | | internal jugular chain lymph node suspicious for recurrent | | lymphoma. Mild multifocal uptake within the anterior mediastinal | | soft tissue masses also suspicious for recurrence of neoplasm.9. | | Left cervical lymph node, biopsy ([id number], 03/16/2016): Nodular | | sclerosis, classical Hodgkin's lymphoma 10. Placement of right | | anterior chest port-a-cath.11. Consultation with Dr. Quirino Moreno | | [facility] on March 22, 2016; Three cycles of | | gemcitabine/dexamethasone/cisplatin followed by HDCT/autoSCT.12. | | Cycle #1 gemcitabine/dexamethasone/cisplatin on April 22, | | 2015.13. Cycle #2 gemcitabine/dexamethasone/cisplatin on May | | 2015.14. Cycle #3 gemcitabine/dexamethasone/cisplatin on | | June 07, 2016.15. Bone Marrow Biopsy under conscious sedation | | June 21, 2016, Specimen # [id number] ([facility] [employer] | | Diagnostics) "Evaluation of this bone marrow specimen reveals a | | mildly hypocellular bone marrow with relative erythroid | | hyperplasia and mildly increased megakaryocytes. No morphologic | | or immunohistochemical evidence of involvement of Hodgkin | | lymphoma."16. Cardiac Echocardiogram on June 24, 2016 | | Ejection Fraction 55%.17. PFT on June 24, 2016; FVC 4.21 L, | | FEV1 3.40 L, DLCO 50% predicted (Hemoglobin 11.2 gm/dL).18. | | PET/CT scan at [facility], [place], [place] | | June 28, 2016; "No obvious recurrent malignant disease within | | the range of the scan."19. HDCT with BEAM and autologous SCT at | | [facility] on July 21, 2016.20. Consultation with Dr. Quirino Moreno, | | [facility] department of hematological malignancies Aug 30, 2016: a. | | brentuximab vedotin maintenance 1.8 mg/kg (cap at 180 mg) iv | | every 3 weeks for one year. b. Repeat PET/CT scan in | | 2017: DONE. c. Pentamidine 300 mg iv every 4 weeks from 09/20/2016 | | through 01/18/2017: DONE. d. Acyclovir until 07/31 or 6 months | | after last dose of brentuximab, whichever is longer. e. | | Reimmunize starting between October and January 2017. Subsequently | | instructed by Dr. Moreno's RN to push back until after brentuximab. | | f. Give GCSF if ANC < 1000.21. Right internal jugular | | port-a-cath (Daniel) October 06, 2016.22. PET/CT scan on October | | 2016-complete response, Deauville Score = 1.23. CT chest February | | 2016; Findings in the mediastinum consistent with treated | | lymphomatous disease. No findings to suggest disease progression | | or new areas of involvement. Last Assessment & Plan: Crystal Harrell | | Shanna returned to clinic on 06/06/2017 with her mother for the | | chief complaints of chills and non-productive cough while on | | brentuximab vedotin maintenance for relapsed Hodgkin's Lymphoma. | | Denies fevers or odynophagia, Denies sputum. Other family members | | have similar symptoms.Clinical exam is notable for the absence | | of oropharyngeal erythema. Lungs are clear to auscultation. Pulse | | is actually a little lower that usual for Crystal.Laboratory exam | | is notable for WBC 6100, Absolute neutrophil count | | 4410.Assessment; viral URI.Plan; reassurance. Crystal will take | | acetaminophen and rest and drink fluids. Call if temperature is | | 101 deg F or greater. | + + + + + | Deep venous thrombosis (DVT) of right peroneal vein | 04/14/2016 | + + + + + | Overview: ACTIVE DIAGNOSIS: Deep Venous Thrombosis of Right | | Lower Extremity as a Consequence of aHUS. Last Assessment & | | Plan: Continue Eliquis 5 mg twice a day. | + + + + + | Functional gait abnormality | 10/31/2015 | + + + | Foot-drop | 08/29/2015 | + + + | Impairment of balance | 07/14/2015 | + + + | Muscle weakness | 07/14/2015 | + + + | Renal hypertension | 06/12/2015 | + + + | Chronic kidney disease | | + + + Resolved Problems + + + + | Problem | Noted | Resolved | | | Date | Date | + + + + | Bacteremia due to methicillin resistant Staphylococcus aureus | 07/31/20 | | | | 16 | 7 | + + + + | Acquired pancytopenia | 07/31/20 | | | | 16 | 7 | + + + + Encounters +--------+--------+ + + + | Date | Type | Specialty | Care Team | Description | +--------+--------+ + + + | 12/12/ | Refill | | Jack Galeano, | Medication Refill | | 2018 | | | | | +--------+--------+ + + + | 11/18/ | Refill | | Lida, | Medication Refill | | 2018 | | | Aashish Carpenter MD | | +--------+--------+ + + + | 10/17/ | Refill | | Lida, | Medication Refill | | 2018 | | | Aashish Carpenter MD | | +--------+--------+ + + + from Last 3 Months Immunizations + + + + | Name | Dates Previously Given | Next Due | + + + + | INFLUENZA PF | 05/19/2016 | | | QUAD(PED/ADOL/ADULT) | | | | ,PSKT or VIAL | | | + + + + | PNEUMOCOCCAL | 10/26/2016 | | | CONJUGATE 13-VALENT | | | | (PCV13) | | | + + + + Family History + + +------+ + | Medical History | Relation | Name | Comments | + + +------+ + | No known problems | Father | | HTN, HYPERLIPIDEMIA, MATY | + + +------+ + | No known problems | Mother | | HTN | + + +------+ + | No known problems | Sister | | ALIVE AND WELL NO HEALTH PROBLEMS | + + +------+ + + +------+--------+ + | Relation | Name | Status | Comments | + +------+--------+ + | Father | | Alive | | + +------+--------+ + | Mother | | Alive | | + +------+--------+ + | Sister | | Alive | | + +------+--------+ + Social History + +-------+ +--------+------+ | [...] Filed Vital Signs + + + + | Vital Sign | Reading | Time Taken | + + + + | Blood Pressure | 110/75 | 08/10/2017956 PST | + + + + | Pulse | 111 | 08/10/2017956 PST | + + + + | Temperature | 36.7 C (98 F) | 08/10/2017956 PST | + + + + | Respiratory Rate | 16 | 06/06/20171043 PDT | + + + + | Oxygen Saturation | 98% | 08/10/2017956 PST | + + + + | Inhaled Oxygen | - | - | | Concentration | | | + + + + | Weight | 110.8 kg (244 lb 4.3 | 08/10/201757 PST | | | oz) | | + + + + | Height | 177.8 cm (5' 10") | 03/30/2017932 PDT | + + + + | Body Mass Index | 35.05 | 03/30/2017932 PDT | + + + + Plan of Treatment +--------+ + + + + | Date | Type | Specialty | Care Team | Description | +--------+ + + + + | 01/22/ | Appointment | | Lida, | | | 2019 | | | Aashish Carpenter MD [address] | | | | | [address] [place] | | | | | | [place] [address] | | | | | | [phone] | | | | | | | | +--------+ + + + + | 01/22/ | Appointment | | Lida, | | | 2018 | | | MD Farida [address] | | | | | | [address] [place] | | | | | | [place] [address] | | | | | | [phone] | | | | | | | | +--------+ + + + + + + + + + | Health Maintenance | Due Date | Last Done | Comments | + + + + + | Vaccine: HPV (1 - | | | | | Female 3-dose | 9 | | | | series) | | | | + + + + + | Vaccine: | | | | | Dtap/Tdap/Td (1 - | 3 | | | | Tdap) | | | | + + + + + | Cervical Cancer | | | | | Screening (Pap) | 5 | | | + + + + + | Vaccine: Influenza | | 05/19/2016, 06/13/2015 | | | (Season Ended) | 9 | | | + + + + + | Vaccine: | | 10/26/2016, 12/17/2015, | | | Pneumococcal 19-64 | 1 | 06/13/2015 | | | Highest Risk (3 of 3 | | | | | - PPSV23) | | | | + + + + + Implants + +------+--------+ +--------+--------+--------+ | Implanted | Type | Area | Manufacture | Device | Shelf | Model | | | | | r | | Expira | / | | | | | | Identi | tion | Serial | | | | | | fier | Date | / Lot | + +------+--------+ +--------+--------+--------+ | Port Imp Mri Powerport 8fr - | Port | Right: | BARD | | 05/14/ | [id number] | | [id number]: Qty: 1 on | | Chest | PERIPHERAL | | 2018 | 0 / | | 10/06/2016 by Carole Sanchez | | | VASCULAR - | | | /[id number] | | MD [place] | | | BRDP | | | 122 | + +------+--------+ +--------+--------+--------+ Results Not on filefrom Last 3 Months Insurance +-------+--------+ +--------+ + +------+ | Payer | Benefi | Subscriber | Effect | Phone | Address | Type | | | t Plan | ID | maryellen | | | | | | / | | Dates | | | | | | Group | | | | | | +-------+--------+ +--------+ + +------+ | MODA | MODA | [id number] | | [phone] | [address] | PPO | | | [place] | | [phone] | | | | [place] | | esent | | [place], | | | | [place] | | | | [place] [address] | | +-------+--------+ +--------+ + +------+ + +--------+ +--------+ + + | Guarantor Name | Accoun | Relation to | Date | Phone | Billing Address | | | t Type | Patient | of | | | | | | | | | | + +--------+ +--------+ + + | Crystal Hernandez | Person | Self [birth year] | NEED ADDRESS | | | al/Richie | | 1996 | [phone] | [place] | | | matthew | | | [address] (Home) | [phone] | + +--------+ +--------+ + + Advance Directives Patient has advance care planning documents, and code status on file. For more information, please contact:[facility] [place] [address] + + + + + | Code Status | Date | Date | Comments | | | Activated | Inactivated | | + + + + + | Full Code | 10/06/2016 | 10/06/2016 | | | | 13:51 | 17:31 | | + + + + +
--- OUTSIDE RECORDS SUMMARY | ~2019-01-06 | XMS | Encounter Summary ---
Demographics + + + | Address | [address] | | | [place] [address] | + + + | Home Phone [...] Team Providers + +------+ + | Care Causticiser Name | Role | Phone | + +------+ + | Aashish Hilton MD | PCP | | + +------+ + Encounter Details +--------+ + + + + | Date | Type | Department | Care Team | Description | +--------+ + + + + | 06/30/ | Telephone | [facility] for | Maura Lai, | | | 2015 | | Hematologic | RN [address] | | | | | Malignancies at | [facility] | | | | | [facility] | [place], [place] | | | | | [address] [facility] | [address] | | | | | [facility] | [phone] | | | | | Mailcode: [id number] | | | | | | [facility] | | | | | | [place], [place] | | | | | | [address] | | | | | | [phone] | | | +--------+ + + + [...]
--- OUTSIDE RECORDS SUMMARY | ~2019-01-06 | XMS | Encounter Summary ---
Demographics + + + | Address | [address] | | | [place] [address] | + + + | Home Phone | | + + + | Preferred Language | Unknown | + + + | Marital Status | | + + + | Moravian Affiliation | NON | + + + [...] Team Providers + +------+ + | Care Avionics Systems Technician Name | Role | Phone | + [...] GOODMAN CATHETER | | 2015 | | [facility] | [address] | REMOVAL; PORT | | | | Admitting Desk | [facility], | REMOVAL. Culture x 2 | | | | Located on the | [place] [address] | | | | | floor [address] [facility] | [phone] | | | | | [facility] | | | | | | [place], [place] | | | | | | [address] | | | +--------+---------+ + + + [...] PA-C,JOSE RAMON - 08/07/2016 11:23 AM PST [facility] Discharge Summary Discharging Provider: Ignacio Decker PA-C, [...] sooner PRN s/s active bleeding HEENT: #Recent [place] Tooth Extractions (~2-3 weeks DRY GOODS CLERK): Nearly resolved -NS rinses PRN Pulmonary: Pretransplant PFTs completed on 06/25/16 (at [facility]) showed FEV1 of 86% pred icted, FVC of 90% predicted and DLCO of 50% predicted. No acute issues Cardiovascular: Pretransplant MUGA completed on 06/24/16 (at [facility]) showed a LVEF of 5 5%. #RLE DVT (first noted 07/04/15, persists on 07/16 doppler in R axial calf): Apixaban DRY GOODS CLERK -STOPPED Apixiban 5 mg BID on admission, plan to switch from lovenox to apixaban when plts> 50K -Received Tx-dose Lovenox until plts <50K (07/15-07/25) -Lovenox 40 mg qpm while thrombocytopenic w/ keeping plts >20K #Orthostatic HoTN (first noted 07/20): Sx improved with NS boluses but persistently Sx when getting OOB. -1L NS boluses PRN if asymptomatic GI: #GERD: Pepcid DRY GOODS CLERK -Prilosec 40 mg daily #Mucositis: pain without ulcerations, grade 2 -Continue oral care with normal saline rinses frequently -Liquid medications as able -Dilaudid GROCERY STORE MANAGER (07/27 -08/04). #[place]: ongoing, improved -Zofran IV/PO q 12 hrs -Zyprexa 10 mg qhs -Ativan, Haldol prn. : #Atypical HUS: Eculizumab DRY GOODS CLERK -Eculizumab q 2 weeks, next dose 08/09. Plan to administer as outpatient. -Monitor for hemolysis flare -Monitor LDH, hapto, complement activity qMon, Thurs #Menstrual suppression: Mild bleed -Norethindrone started 08/05 Neuro/Psych: #Depression/Anxiety: Lexapro DRY GOODS CLERK -Lexapro 10 mg daily -Ativan PRN Infectious [...] Orders and Instructions Call the BMT clinic ([phone]) or BMT person on-call ([phone]) for: Any temp > 100.4 Nausea/vomiting unresponsive [...] INFUSION [facility] [phone] [facility] H 08/09/2016 9:20 AM [facility] INFUSION NURSE; [facility] IN[facility] at [facility] [phone] [facility] 08/10/2016 2:40 PM [facility] INFUSION NURSE; [facility] INF[facility]ION [facility] at [facility] [phone] Center [facility] H 08/10/2016 3:15 PM Coreen Grissom; [facility] MA SUPPORT [facility] at [facility] [phone] [facility] H 08/13/2016 12:40 PM [facility] INFUSION NURSE; [facility] INF[facility]ION [facility] [place] [phone] [facility] 08/13/2016 1:15 PM Coreen Grissom; [facility] MA SUPPORT [facility] at [facility] [phone] Center for H 08/17/2016 12:40 PM CHM INFUSION NURSE; [facility] INFUSION [facility] at [facility] [phone] Center for H 08/17/2016 1:15 PM Coreen Grissom; [facility] SUPPORT [facility] at [facility] [phone] Center for H 08/20/2016 12:40 PM [facility] INFUSION NURSE; [facility] INFUSION [facility] at [facility] [phone] Center for H 08/20/2016 1:15 PM Coreen Grissom; [facility] SUPPORT [facility] at [facility] [phone] Center for H JOSE RAMON Pemberton PA-C [facility] [address] [facility] Mailcode: [email or web address] [place] [address] documented in thi s encounter Discharge Instructions Instructions Matheus Olsen RN - 08/02/2016Case Management Discharge Instruction: [facility] will provide your line care supplies and IV abx o n discharge. Call [phone] for questions , concerns or refill of supplies. Eleni Gutierrez RNmotorsports technician [phone] Check your oral temperature twice a day [...] rest. Call if you have any questions! [facility] ([facility]) during clinic hours (M-F 8:30-4:30): [phone] [facility] ([facility]) at all other times: [phone] 14KPV: [phone] How was your stay with us? Is [...] chemotherapy (HCC) MD Sky De Luna MD [place] [id number] [facility] Mailcode: [id number] [place] [address] I spent 30 min in discharge of pt, >50% in counseling and care coordination any Phillips FNP - 08/06/2016 3:56 PM PST Daily NPP Note - Auto Transplant Admit [facility] Attending: Constantin Link MD [facility] Physician: Constantin Link MD PCP: Aashish Hilton MD Benign Hematology: Jim Michael MD ([facility]) Pediatric Heme/Onc: Anh Moreland MD ([place]) Nephrology: Raghav Miller MD ([place]) Date of Admission: 07/15/2016 Conditioning regimen: BEAM [...] with moderate pain, no ulceration: Received Dilaudid GROCERY STORE MANAGER (07/15 3-08/04). Continue prn oxycodone. -Nutrition: Taken [...] for autoBMT Local oncologist: Aashish Hilton MD ([facility]) Benign Hematology: Jim Michael MD ([facility]) Pediatric Heme/Onc: Anh Moreland MD ([place]) Nephrology: Raghav Miller MD ([place]) 04/2015 presented with flank pain CT C/A/P: 11 cm anterior mediastinal mass, pleural effusion & L supraclav adenopathy Needle bx: classical hodgkins, nodular sclerosing type Thoracentesis: reactive/benign BMBx: neg PET: bulky mediastinal mass, SUV 16; bilateral neck SUV 15; also R>L pleural effusion 05/10/15 began ABVE-PC (as per pediatric [id number]) via femoral line 05/16/15 presented with sepsis [...] Above therapy in [place] -> moved to [facility] Continued on ecalizumab per benign heme ([place]) [...] sooner PRN s/s active bleeding HEENT: #Recent [place] Tooth Extractions (~2-3 weeks 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 No acute issues Cardiovascular: Pretransplant MUGA completed on 06/24/16 (at [facility]) showed a LVEF of 5 5%. #RLE DVT (first noted 07/04/15, persists on 07/16 doppler in R axial calf): Apixaban DRY GOODS CLERK -STOPPED Apixiban 5 mg BID on admission, plan to switch from lovenox to apixaban when plt s>50K -Received Tx-dose Lovenox until plts <50K (07/15-07/25) -Lovenox 40 mg qpm while thrombocytopenic w/ keeping plts >20K #Orthostatic HoTN (first noted 07/20): Sx improved with NS boluses but persistently Sx when getting OOB. -1L NS boluses PRN if asymptomatic GI: #GERD: Pepcid DRY GOODS CLERK -Prilosec 40 mg daily #Mucositis: pain without ulcerations, grade 2 -Continue oral care with normal saline rinses frequently -Liquid medications as able -Dilaudid GROCERY STORE MANAGER (07/27 -08/04). #[place]: ongoing, improved -Zofran IV/PO q 12 hrs -Zyprexa 10 mg qhs -Ativan, Haldol prn. : #Atypical HUS: Eculizumab DRY GOODS CLERK -Eculizumab q 2 weeks, next dose 08/09. Plan to administer as outpatient. -Monitor for hemolysis flare -Monitor LDH, hapto, complement activity qMon, Thurs #Menstrual suppression: Mild bleed -Norethindrone started 08/05 Neuro/Psych: #Depression/Anxiety: Lexapro DRY GOODS CLERK -Lexapro 10 mg daily -Ativan PRN Infectious [...] PBSCT. Anticipate 3-4 week hospitalization. MORENA Nieves [facility] [address] [facility] Mailcode: [address] [place], [place] [id number] [phone] signed by MORENA Ramos at 08/06/2016 4:43 [...] by phone to her room. Mel SALDIVAR [facility] [address] [facility] Mailcode: [address] [place] [address] [phone] signed by Mel Saldivar at 08/06/2016 11:38 [...] for d/c Tuesday 08/07, pending PO intake straight line press setter setting up home iv abx Arrange d/c [...] Constantin Link MD PhD ohamvirgen, Fany Farias, CLOTH MENDER - 08/05/2016 4:25 PM PST Daily NPP Note - Auto Transplant Admit [facility] Attending: Constantin Link MD [facility] Physician: oCnstantin Link MD PCP: Aashish Hilton MD Benign Hematology: Jim Michael MD ([facility]) Pediatric Heme/Onc: Anh Moreland MD ([place]) Nephrology: Raghav Miller MD ([place]) Date of Admission: 07/15/2016 Conditioning regimen: BEAM [...] with moderate pain, no ulceration: Received Dilaudid GROCERY STORE MANAGER (07/15 3-08/04). Continue prn oxycodone. -Nutrition: Taken [...] for autoBMT Local oncologist: Aashish Hilton MD ([facility]) Benign Hematology: Jim Michael MD ([facility]) Pediatric Heme/Onc: Anh Moreland MD ([place]) Nephrology: Raghav Miller MD ([place]) 04/2015 presented with flank pain CT C/A/P: 11 cm anterior mediastinal mass, pleural effusion & L supraclav adenopathy Needle bx: classical hodgkins, nodular sclerosing type Thoracentesis: reactive/benign BMBx: neg PET: bulky mediastinal mass, SUV 16; bilateral neck SUV 15; also R>L pleural effusion 05/10/15 began ABVE-PC (as per pediatric [id number]) via femoral line 05/16/15 presented with sepsis [...] Above therapy in [place] -> moved to [facility] Continued on ecalizumab per benign heme ([place]) [...] sooner PRN s/s active bleeding HEENT: #Recent [place] Tooth Extractions (~2-3 weeks 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 No acute issues Cardiovascular: Pretransplant MUGA completed on 06/24/16 (at [facility]) showed a LVEF of 5 5%. #RLE DVT (first noted 07/04/15, persists on 07/16 doppler in R axial calf): Apixaban DRY GOODS CLERK -STOPPED Apixiban 5 mg BID on admission -Received Tx-dose Lovenox until plts <50K (07/15-07/25) -Lovenox 40 mg qpm while thrombocytopenic w/ keeping plts >20K #Orthostatic HoTN (first noted 07/20): Sx improved with NS boluses but persistently Sx when getting OOB. -1L NS boluses PRN if asymptomatic GI: #GERD: Pepcid DRY GOODS CLERK -Prilosec 40 mg daily #Mucositis: pain without ulcerations, grade 2 -Continue oral care with normal saline rinses frequently -Liquid medications as able -Dilaudid GROCERY STORE MANAGER (07/27 -08/04). #[place]: ongoing, improved -Zofran IV/PO q 12 hrs -Zyprexa 10 mg qhs -Ativan, Haldol prn. : #Atypical HUS: Eculizumab DRY GOODS CLERK -Eculizumab q 2 weeks, next dose 08/09. Plan to administer as outpatient. -Monitor for hemolysis flare -Monitor LDH, hapto, complement activity qMon, Thurs #Menstrual suppression: Mild bleed -Norethindrone started 08/05 Neuro/Psych: #Depression/Anxiety: Lexapro DRY GOODS CLERK -Lexapro 10 mg daily -Ativan PRN Infectious [...] PBSCT. Anticipate 3-4 week hospitalization. MORENA Nieves [facility] [address] [facility] Mailcode: [facility] [place] [address] [id number] signed by MORENA Ramos at 08/05/2016 6:45 [...] - anc 0.38 ANC engrafting Wean off GROCERY STORE MANAGER BMT/Hodgkins - stg 2 bulky, s/p pediatric [...] (HCC) Constantin Link MD PhD oFany camacho, CLOTH MENDER - 08/04/2016 3:09 PM PST Daily NPP Note - Auto Transplant Admit [facility] Attending: Constantin Link MD [facility] Physician: Constantin Link MD PCP: Aashsih Hilton MD Benign Hematology: Jim Michael MD ([facility]) Pediatric Heme/Onc: Anh Moreland MD ([place]) Nephrology: Raghav Miller MD ([place]) Date of Admission: 07/15/2016 Conditioning regimen: BEAM [...] with moderate pain, no ulceration: Received Dilaudid GROCERY STORE MANAGER (07/15 3-08/04). Start prn oxycodone. -Nutrition: Taken [...] for autoBMT Local oncologist: Aashish Hilton MD ([facility]) Benign Hematology: Jim Michael MD ([facility]) Pediatric Heme/Onc: Anh Moreland MD ([place]) Nephrology: Raghav Miller MD ([place]) 04/2015 presented with flank pain CT C/A/P: 11 cm anterior mediastinal mass, pleural effusion & L supraclav adenopathy Needle bx: classical hodgkins, nodular sclerosing type Thoracentesis: reactive/benign BMBx: neg PET: bulky mediastinal mass, SUV 16; bilateral neck SUV 15; also R>L pleural effusion 05/10/15 began ABVE-PC (as per pediatric [id number]) via femoral line 05/16/15 presented with sepsis [...] Above therapy in [place] -> moved to [facility] Continued on ecalizumab per benign heme ([place]) [...] sooner PRN s/s active bleeding HEENT: #Recent [place] Tooth Extractions (~2-3 weeks 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 No acute issues Cardiovascular: Pretransplant MUGA completed on 06/24/16 (at [facility]) showed a LVEF of 5 5%. #RLE DVT (first noted 07/04/15, persists on 07/16 doppler in R axial calf): Apixaban DRY GOODS CLERK -STOPPED Apixiban 5 mg BID on admission -Received Tx-dose Lovenox until plts <50K (07/15-07/25) -Lovenox 40 mg qpm while thrombocytopenic w/ keeping plts >20K #Orthostatic HoTN (first noted 07/20): Sx improved with NS boluses but persistently Sx when getting OOB. -1L NS boluses PRN if asymptomatic GI: #GERD: Pepcid DRY GOODS CLERK -Prilosec 40 mg daily #Mucositis: pain without ulcerations, grade 2 -Continue oral care with normal saline rinses frequently -Liquid medications as able -Transition to IV meds if worsening PO intake -Dilaudid GROCERY STORE MANAGER (07/27 -08/04). #[place]: ongoing, improved -Zofran IV/PO q 12 hrs -Zyprexa 10 mg qhs -Ativan, Haldol prn. Renal: #Atypical HUS: Eculizumab DRY GOODS CLERK -Eculizumab q 2 weeks, next dose 08/09. Plan to administer as outpatient. -Monitor for hemolysis flare -Monitor LDH, hapto, complement activity qMon, Thurs Neuro/Psych: #Depression/Anxiety: Lexapro DRY GOODS CLERK -Lexapro 10 mg daily -Ativan PRN Infectious [...] PBSCT. Anticipate 3-4 week hospitalization. MORENA Nieves [facility] [address] [facility] Mailcode: [id number] [place] [address] [id number] signed by MORENA Ramos at 08/04/2016 3:23 PM PSTMoha Fany chapman FNP - 08/03/2016 6:07 PM PSTFormatting of this note might be different fro m the original. Daily NPP Note - Auto Transplant Admit [facility] Attending: Constantin Link MD [facility] Physician: Constantin Link MD PCP: Aashish Hilton MD Benign Hematology: Jim Michael MD ([facility]) Pediatric Heme/Onc: Anh Moreland MD ([place]) Nephrology: Raghav Miller MD ([place]) Date of Admission: 07/15/2016 Conditioning regimen: BEAM [...] with moderate pain, no ulceration: continue Dilaudid GROCERY STORE MANAGER (07/27 - ). -FVO: Remains off MIVF 09/16 FVO. Diurese prn. -CIHNA: continue scheduled Zofran and Zyprexa. Ativan/haldol PRN. -Lytes: Standard electrolyte replacement. K & phos repleted. Subjective: Has ongoing mouth pain, controlled on GROCERY STORE MANAGER. Diarrhea improved compared to yeste rday. Denies [...] HUS, admit for autoBMT Local oncologist: Aashish iHlton MD ([facility]) Benign Hematology: Jim Michael MD ([facility]) Pediatric Heme/Onc: Anh Moreland MD ([place]) Nephrology: Raghav Miller MD ([place]) 04/2015 presented with flank pain CT C/A/P: 11 cm anterior mediastinal mass, pleural effusion & L supraclav adenopathy Needle bx: classical hodgkins, nodular sclerosing type Thoracentesis: reactive/benign BMBx: neg PET: bulky mediastinal mass, SUV 16; bilateral neck SUV 15; also R>L pleural effusion 05/10/15 began ABVE-PC (as per pediatric [id number]) via femoral line 05/16/15 presented with sepsis [...] Above therapy in [place] -> moved to [place] Continued on ecalizumab per benign heme ([place]) [...] sooner PRN s/s active bleeding HEENT: #Recent [place] Tooth Extractions (~2-3 weeks 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 No acute issues Cardiovascular: Pretransplant MUGA completed on 06/24/16 (at [facility]) showed a LVEF of 5 5%. #RLE DVT (first noted 07/04/15, persists on 07/16 doppler in R axial calf): Apixaban DRY GOODS CLERK -STOPPED Apixiban 5 mg BID on admission -Received Tx-dose Lovenox until plts <50K (07/15-07/25) -Lovenox 40 mg qpm while thrombocytopenic w/ keeping plts >20K #Orthostatic HoTN (first noted 07/20): Sx improved with NS boluses but persistently Sx when getting OOB. -1L NS boluses PRN if asymptomatic GI: #GERD: Pepcid DRY GOODS CLERK -Prilosec 40 mg daily #Mucositis: pain without ulcerations, grade 2 -Continue oral care with normal saline rinses frequently -Liquid medications as able -Transition to IV meds if worsening PO intake -Dilaudid GROCERY STORE MANAGER initiated 07/27 #[place]: ongoing, improved -Zofran IV/PO q 12 hrs -Zyprexa 10 mg qhs -Ativan, Haldol, benadryl prn. Renal: #Atypical HUS: Eculizumab DRY GOODS CLERK -Eculizumab q 2 weeks, next dose 08/09 -Monitor for hemolysis flare -Monitor LDH, hapto, complement activity qMon, Thurs Neuro/Psych: #Depression/Anxiety: Lexapro DRY GOODS CLERK -Lexapro 10 mg daily -Ativan PRN Infectious [...] starts around Day +30 to +40 ( [id number] mg po daily as sulfa allergic), pending [...] PBSCT. Anticipate 3-4 week hospitalization. MORENA Nieves [facility] [address] [facility] Mailcode: [facility] [place] [address] [phone] signed by MORENA Ramos at 08/03/2016 6:25 [...] using the Patient Ass istance Fund at [facility]. The patient will be responsible for the rest of t he stay and will get the reimbursement. Patient is aware to contact myself or Jenny if she has any issues going forward after the 6 days. Mel SALDIVAR [facility] [address] [facility] Mailcode: [email or web address] [place], [place] [id number] ashon Tristan PA - 08/02/2016 6:50 PM PST Daily NPP Note - Auto Transplant Admit [facility] Attending: Constantin Link MD [facility] Physician: Constantin Link MD PCP: Aashish Hilton MD Benign Hematology: Jim Michael MD ([facility]) Pediatric Heme/Onc: Anh Moreland MD ([place]) Nephrology: Raghav Miller MD ([place]) Date of Admission: 07/15/2016 Conditioning regimen: BEAM [...] with moderate pain, no ulceration: continue Dilaudid GROCERY STORE MANAGER starte d 07/27 for now. MIVF stopped [...] for autoBMT Local oncologist: Aashish Hilton MD ([facility]) Benign Hematology: Jim Michael MD ([facility]) Pediatric Heme/Onc: Anh Moreland MD ([place]) Nephrology: Raghav Miller MD ([place]) 04/2015 presented with flank pain CT C/A/P: 11 cm anterior mediastinal mass, pleural effusion & L supraclav adenopathy Needle bx: classical hodgkins, nodular sclerosing type Thoracentesis: reactive/benign BMBx: neg PET: bulky mediastinal mass, SUV 16; bilateral neck SUV 15; also R>L pleural effusion 05/10/15 began ABVE-PC (as per pediatric [id number]) via femoral line 05/16/15 presented with sepsis [...] Above therapy in [place] -> moved to [place] Continued on ecalizumab per benign heme ([place]) [...] sooner PRN s/s active bleeding HEENT: #Recent [place] Tooth Extractions (~2-3 weeks 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 No acute issues Cardiovascular: Pretransplant MUGA completed on 06/24/16 (at [facility]) showed a LVEF of 5 5%. #RLE DVT (first noted 07/04/15, persists on 07/16 doppler in R axial calf): Apixaban DRY GOODS CLERK -STOPPED Apixiban 5 mg BID on admission -Received Tx-dose Lovenox until plts <50K (07/15-07/25) -Lovenox 40 mg qpm while thrombocytopenic w/ keeping plts >20K #Orthostatic HoTN (first noted 07/20): Sx improved with NS boluses but persistently Sx when getting OOB. -1L NS boluses PRN if asymptomatic GI: #GERD: Pepcid DRY GOODS CLERK -Prilosec 40 mg daily #Mucositis: pain without ulcerations, grade 2 -Continue oral care with normal saline rinses frequently -Liquid medications as able -Transition to IV meds if worsening PO intake -Dilaudid GROCERY STORE MANAGER initiated 07/27 -MIVF as below #[place]: ongoing, improved -Zofran IV/PO q 12 hrs -Zyprexa 10 mg qhs -Ativan, Haldol, benadryl prn. Renal: #Atypical HUS: Eculizumab DRY GOODS CLERK -Eculizumab q 2 weeks, next dose 08/09 -Monitor for hemolysis flare -Monitor LDH, hapto, complement activity qMon, Thurs Neuro/Psych: #Depression/Anxiety: Lexapro DRY GOODS CLERK -Lexapro 10 mg daily -Ativan PRN Infectious [...] around Day +30 to +40 (or Daps [id number] mg po daily if sulfa allergic), pending [...] hospitalization. JASMIN Farfan[facility]C [facility] [address] [place] [address] Mailcode: [email or web address] [place] [address] henConstantin MD,PhD - 08/02/2016 4:07 PM PSTHeme [...] for Hematologic Malignancies Attending: Constantin Link MD [facility] Physician: Constantin Link MD PCP: Aashish Hilton MD Benign Hematology: Jim Michael MD ([facility]) Pediatric Heme/Onc: Anh Moreland MD ([place]) Nephrology: Raghav Miller MD ([place]) Date of Admission: 07/15/2016 Conditioning regimen: BEAM [...] with moderate pain, no ulceration: continue Dilaudid GROCERY STORE MANAGER starte d 07/27 for now. MIVF at [...] for autoBMT Local oncologist: Aashish Hilton MD ([facility]) Benign Hematology: Jim Michael MD ([facility]) Pediatric Heme/Onc: Anh Moreland MD ([place]) Nephrology: Raghav Miller MD ([place]) 04/2015 presented with flank pain CT C/A/P: 11 cm anterior mediastinal mass, pleural effusion & L supraclav adenopathy Needle bx: classical hodgkins, nodular sclerosing type Thoracentesis: reactive/benign BMBx: neg PET: bulky mediastinal mass, SUV 16; bilateral neck SUV 15; also R>L pleural effusion 05/10/15 began ABVE-PC (as per pediatric [id number]) via femoral line 05/16/15 presented with sepsis [...] Above therapy in [place] -> moved to [place] Continued on ecalizumab per benign heme ([place]) [...] sooner PRN s/s active bleeding HEENT: #Recent [place] Tooth Extractions (~2-3 weeks 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 No acute issues Cardiovascular: Pretransplant MUGA completed on 06/24/16 (at [facility]) showed a LVEF of 5 5%. #RLE DVT (first noted 07/04/15, persists on 07/16 doppler in R axial calf): Apixaban DRY GOODS CLERK -STOPPED Apixiban 5 mg BID on admission -Received Tx-dose Lovenox until plts <50K (07/15-07/25) -Lovenox 40 mg qpm while thrombocytopenic w/ keeping plts >20K #Orthostatic HoTN (first noted 07/20): Sx improved with NS boluses but persistently Sx when getting OOB. -1L NS boluses PRN if asymptomatic GI: #GERD: Pepcid DRY GOODS CLERK -Prilosec 40 mg daily #Mucositis: pain without ulcerations, grade 2 -Continue oral care with normal saline rinses frequently -Liquid medications as able -Transition to IV meds if worsening PO intake -Dilaudid GROCERY STORE MANAGER initiated 07/27 -MIVF as below #[place]: ongoing, improved -Zofran IV/PO q 12 hrs -Zyprexa 10 mg qhs -Ativan, Haldol, benadryl prn. Renal: #Atypical HUS: Eculizumab DRY GOODS CLERK -Eculizumab q 2 weeks, next dose 08/09 -Monitor for hemolysis flare -Monitor LDH, hapto, complement activity qMon, Thurs Neuro/Psych: #Depression/Anxiety: Lexapro DRY GOODS CLERK -Lexapro 10 mg daily -Ativan PRN Infectious [...] around Day +30 to +40 (or Daps [id number] mg po daily if sulfa allergic), pending [...] hospitalization. [facility]NA [facility] Mailcode: [email or web address] [place] [address] Miguel Sarkar MD - 08/01/2016 2:54 AM [...] normotensive Gastrointestinal: soft, nontender, not distended Extremities: [facility] LABS: Chemistries Recent Labs 07/30/16 0008 07/30/16 [...] of record for this patient care encounter Migeul Dooley MD General Surgery Resident, R3 [id number] Lashon Puentes PA - 07/31/2016 4:44 PM PST . Daily NPP Note - Auto Transplant Admit [facility] Attending: Qamar Wang MD [facility] Physician: Constantin Link MD PCP: Aashish Hilton MD Benign Hematology: Jim Michael MD ([facility]) Pediatric Heme/Onc: Anh Moreland MD ([place]) Nephrology: Raghav Miller MD ([place]) Date of Admission: 07/15/2016 Conditioning regimen: BEAM [...] d/t moderate pain, no ulceration: On Dilaudid GROCERY STORE MANAGER 07/27, continue MIVF d/t decreased PO intake/orthostatic [...] for autoBMT Local oncologist: Aashish Hilton MD ([facility]) Benign Hematology: Jim Michael MD ([facility]) Pediatric Heme/Onc: Anh Moreland MD ([place]) Nephrology: Raghav Miller MD ([place]) 04/2015 presented with flank pain CT C/A/P: 11 cm anterior mediastinal mass, pleural effusion & L supraclav adenopathy Needle bx: classical hodgkins, nodular sclerosing type Thoracentesis: reactive/benign BMBx: neg PET: bulky mediastinal mass, SUV 16; bilateral neck SUV 15; also R>L pleural effusion 05/10/15 began ABVE-PC (as per pediatric [id number]) via femoral line 05/16/15 presented with sepsis [...] Above therapy in [place] -> moved to [place] Continued on ecalizumab per benign heme ([place]anda) [...] sooner PRN s/s active bleeding HEENT: #Recent [place] Tooth Extractions (~2-3 weeks 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 No acute issues Cardiovascular: Pretransplant MUGA completed on 06/24/16 (at [facility]) showed a LVEF of 5 5%. #RLE DVT (first noted 07/04/15, persists on 07/16 doppler in R axial calf): Apixaban DRY GOODS CLERK -STOPPED Apixiban 5 mg BID on admission -Received Tx-dose Lovenox until plts <50K (07/15-07/25) -Lovenox 40 mg qpm while thrombocytopenic w/ keeping plts >20K #Orthostatic HoTN (first noted 07/20): Sx improved with NS boluses but persistently Sx when getting OOB. -1L NS boluses PRN if asymptomatic GI: #GERD: Pepcid DRY GOODS CLERK -Prilosec 40 mg daily #Mucositis: pain without ulcerations, grade 2 -Continue oral care with normal saline rinses frequently -Liquid medications as able -Transition to IV meds if worsening PO intake -Dilaudid GROCERY STORE MANAGER initiated 07/27 -MIVF as below #[place]: ongoing, improved -Benadryl 25 mg PO q 6 hrs -Zofran IV/PO q 12 hrs -Zyprexa 10 mg qhs -Ativan, Haldol PRN Renal: #Atypical HUS: Ecalizumab DRY GOODS CLERK -Eculizumab q 2 weeks, next dose 08/09 -Monitor for hemolysis flare -Monitor LDH, hapto, complement activity qMon, Thurs Neuro/Psych: #Depression/Anxiety: Lexapro DRY GOODS CLERK -Lexapro 10 mg daily -Ativan PRN Infectious [...] around Day +30 to +40 (or Daps [id number] mg po daily if sulfa allergic), pending [...] hospitalization. JASMIN Farfan-[facility] [address] [place] [address] Mailcode: [email or web address] [place] [address] henConstantin MD,PhD - 07/31/2016 3:30 PM PSTHeme [...] PA-C,MPAS, 2 5 mg at 07/31/16 0619 [id number] (SPECIAL MOUTHWASH) suspension (compound) 10-15 mL, 10-15 mL, oral, Q1H PRN, Constantin Link MD,PhD, 15 mL at 07/26/16 0957 enoxaparin (LOVENOX) injection 40 mg, 40 mg, subcutaneous, QPM, Lluvia Gonzalez, SUPERVISOR POULTRY HATCHERY, 40 mg at 07/30/162051 escitalopram oxalate (LEXAPRO) tablet 10 mg, 10 mg, oral, QPM, Vanessa Osborne, CLOTH MENDER, 10 mg at 07/30/162051 filgrastim-sndz (ZARXIO) injection [...] Units at 07/29/16 1457 HYDROmorphone 0.5 mg/mL GROCERY STORE MANAGER infusion (ADULT), , intravenous, CONTINUOUS, Ignacio Decker PA-C, MPAS, Last Rate: 0 mL/hr at 07/30/16 0615 lidocaine (LMX 4) 4 % cream, , topical, PRN, Vandana Chang, CLOTH MENDER loperamide (IMODIUM A-D) 1 mg/7.5 mL liquid 2 mg, 2 mg, oral, PRN, Mary Pérez MD, 2 mg at 07/30/16 1747 LORazepam (ATIVAN) tablet 0.5-1 mg, 0.5-1 mg, oral, Q6H PRN OR LORazepam (ATIVAN) injec tion 0.5-1 mg, 0.5-1 mg, intravenous, Q6H PRN, Vandana Chang, CLOTH MENDER, 0.5 mg at 6 0909 magnesium sulfate [...] pending CULTURE, BLOOD BACTI & YEAST OH [[id number]] [facility] CORE LAB Collected: 07/30/162158 Lab Status: In process Specimen: Blood from Hand - right Updated: 07/30/164 CULTURE, STERILITY BACTI [[id number]] LAB Collected: 07/30/16 0832 Lab Status: Preliminary result Specimen: Device Updated: 07/31/16 1004 Narrative: Culture Report: No growth to date Culture examined daily Report will be updated if growth occurs CULTURE, STERILITY BACTI [[id number]] [facility] LAB Collected: 07/30/16 0832 Lab Status: [...] removed Port-A-Cath. IMPRESSION: Clear lungs. 07/30 EXAM: [place] CHEST 1 VIEW HISTORY: Fever, tachycardia. Patient [...] Will follow with you. Silva Hector MD [place] [id number] [facility] Mailcode: [id number] [place], [place] [id number] Miguel Sarkar MD - 07/31/2016 3:19 AM [...] attending of record Miguel Dooley MD EGS, [id number] yMiguel velez MD - 07/30/2016 10:45 PM [...] normotensive Gastrointestinal: soft, nontender, not distended Extremities: [facility] LABS: Chemistries Recent Labs 07/27/16 2331 07/28/16 [...] Miguel Dooley MD General Surgery Resident, R3 [id number] ashon Tristan PA - 07/30/2016 5:47 PM PST . Daily NPP Note - Auto Transplant Admit [facility] Attending: Qamar Wang MD [facility] Physician: Constantin Link MD PCP: Aashish Hilton MD Benign Hematology: Jim Michael MD ([facility]) Pediatric Heme/Onc: Anh Moreland MD ([place]) Nephrology: Raghav Miller MD ([place]) Date of Admission: 07/15/2016 Conditioning regimen: BEAM [...] on 07/31 and 08/01. Removed PAC and Goomdan on today 07/30. -Continue Cefepime (07/28), Vancomycin [...] d/t moderate pain, no ulceration: Started Dilaudid GROCERY STORE MANAGER 07/27, continue MIVF d/t decreased PO intake/orthostatic [...] for autoBMT Local oncologist: Aashish Hilton MD ([facility]) Benign Hematology: Jim Michael MD ([facility]) Pediatric Heme/Onc: Anh Moreland MD ([place]) Nephrology: Raghav Miller MD ([place]) 04/2015 presented with flank pain CT C/A/P: 11 cm anterior mediastinal mass, pleural effusion & L supraclav adenopathy Needle bx: classical hodgkins, nodular sclerosing type Thoracentesis: reactive/benign BMBx: neg PET: bulky mediastinal mass, SUV 16; bilateral neck SUV 15; also R>L pleural effusion 05/10/15 began ABVE-PC (as per pediatric [id number]) via femoral line 05/16/15 presented with sepsis [...] Above therapy in [place] -> moved to [place] Continued on ecalizumab per benign heme (Fernanda) [...] sooner PRN s/s active bleeding HEENT: #Recent [place] Tooth Extractions (~2-3 weeks 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 No acute issues Cardiovascular: Pretransplant MUGA completed on 06/24/16 (at [facility]) showed a LVEF of 5 5%. #RLE DVT (first noted 07/04/15, persists on 07/16 doppler in R axial calf): Apixaban DRY GOODS CLERK -STOPPED Apixiban 5 mg BID on admission -Received Tx-dose Lovenox until plts <50K (07/15-07/25) -Lovenox 40 mg qpm while thrombocytopenic w/ keeping plts >20K #Orthostatic HoTN (first noted 07/20): Sx improved with NS boluses but persistently Sx when getting OOB. -1L NS boluses PRN if asymptomatic GI: #GERD: Pepcid DRY GOODS CLERK -Prilosec 40 mg daily #Mucositis: pain without ulcerations, grade 2 -Continue oral care with normal saline rinses frequently -Liquid medications as able -Transition to IV meds if worsening PO intake -Dilaudid GROCERY STORE MANAGER initiated 07/27 -MIVF as below #[place]: ongoing, improved -Benadryl 25 mg PO q 6 hrs -Zofran IV/PO q 12 hrs -Zyprexa 10 mg qhs -Ativan, Haldol PRN Renal: #Atypical HUS: Ecalizumab DRY GOODS CLERK -Eculizumab q 2 weeks, next dose 08/09 -Monitor for hemolysis flare -Monitor LDH, hapto, complement activity qMon, Thurs Neuro/Psych: #Depression/Anxiety: Lexapro DRY GOODS CLERK -Lexapro 10 mg daily -Ativan PRN Infectious [...] around Day +30 to +40 (or Daps [id number] mg po daily if sulfa allergic), pending [...] hospitalization. L[facility] [address] [place] [address] Mailcode: [email or web address] [facility] [id number] eo Polanco - 07/30/2016 5:41 PM PSTTransthoracic [...] PA-C,MPAS, 2 5 mg at 07/30/16 1203 [id number] (SPECIAL MOUTHWASH) suspension (compound) 10-15 mL, 10-15 mL, oral, Q1H PRN, Constantin Link MD,PhD, 15 mL at 07/26/16 0957 enoxaparin (LOVENOX) injection 40 mg, 40 mg, subcutaneous, QPM, Lluvia Gonzalez, SUPERVISOR POULTRY HATCHERY escitalopram oxalate (LEXAPRO) tablet 10 mg, 10 [...] Units at 07/29/16 1457 HYDROmorphone 0.5 mg/mL GROCERY STORE MANAGER infusion (ADULT), , intravenous, CONTINUOUS, Ignacio Decker [...] isolated at 5 days. URINE CULTURE WORKUP [[id number]] (Abnormal) LAB Collected: 07/28/16 1700 Lab Status: Final result Specimen: Urine from Urine Updated: 07/29/16 ORGANISM Gram positive bacilli (A) LAB Narrative: Culture Report: 30,000 cfu/ml Gram positive bacilli Morphologically resembling Lactobacillus species < 10,000 cfu/ml Insignificant growth OTHER MICRO: 07/29 influenza A/B PCR negative 07/29 respiratory pathogen panel negative Recent radiographs: 07/29 EXAM: [place] CHEST 1 VIEW HISTORY: Hypoxemia COMPARISON: Yesterday [...] Will follow with you. Silva Hector MD [facility] [address] [facility] Mailcode: [id number] [place], [place] [phone] Qamar Hall MD - 07/30/2016 12:26 PM [...] control for mucositis and line removal -conitnue GROCERY STORE MANAGER See CLAUDINE documentation from today for complete details. Supportive care as outlined in NPP note and our orders from today CODE: FULL QAMAR WANG MD pharmacy teacher [facility] [email or web address] [phone] Margi Puentes PA - 07/30/2016 11:49 AM PSTFormatting of this note might be different from the brooke lRae Daily NPP Note - Auto Transplant Admit [facility] Attending: Qamar Wang MD [facility] Physician: Constantin Link MD PCP: Aashish Hilton MD Benign Hematology: Jim Michael MD ([facility]) Pediatric Heme/Onc: Anh Moreland MD ([place]) Nephrology: Raghav Miller MD ([place]) Date of Admission: 07/15/2016 Conditioning regimen: BEAM [...] d/t moderate pain, no ulceration: Started Dilaudid GROCERY STORE MANAGER 07/27, continue MIVF d/t decreased PO intake/orthostatic [...] for autoBMT Local oncologist: Aashish Hilton MD ([facility]) Benign Hematology: Jim Micheal MD ([facility]) Pediatric Heme/Onc: Anh Moreland MD ([place]) Nephrology: Raghav Miller MD ([place]) 04/2015 presented with flank pain CT C/A/P: 11 cm anterior mediastinal mass, pleural effusion & L supraclav adenopathy Needle bx: classical hodgkins, nodular sclerosing type Thoracentesis: reactive/benign BMBx: neg PET: bulky mediastinal mass, SUV 16; bilateral neck SUV 15; also R>L pleural effusion 05/10/15 began ABVE-PC (as per pediatric [id number]) via femoral line 05/16/15 presented with sepsis [...] Above therapy in [place] -> moved to [place] Continued on ecalizumab per benign heme ([place]) [...] sooner PRN s/s active bleeding HEENT: #Recent [place] Tooth Extractions (~2-3 weeks 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 No acute issues Cardiovascular: Pretransplant MUGA completed on 06/24/16 (at [facility]) showed a LVEF of 5 5%. #RLE DVT (first noted 07/04/15, persists on 07/16 doppler in R axial calf): Apixaban DRY GOODS CLERK -STOPPED Apixiban 5 mg BID on admission -Received Tx-dose Lovenox until plts <50K (07/15-07/25) -Lovenox 40 mg qpm while thrombocytopenic w/ keeping plts >20K #Orthostatic HoTN (first noted 07/20): Sx improved with NS boluses but persistently Sx when getting OOB. -1L NS boluses PRN if asymptomatic GI: #GERD: Pepcid DRY GOODS CLERK -Prilosec 40 mg daily #Mucositis: pain without ulcerations, grade 2 -Continue oral care with normal saline rinses frequently -Liquid medications as able -Transition to IV meds if worsening PO intake -Dilaudid GROCERY STORE MANAGER initiated 07/27 -MIVF as below #[place]: ongoing, improved -Benadryl 25 mg PO q 6 hrs -Zofran IV/PO q 12 hrs -Zyprexa 10 mg qhs -Ativan, Haldol PRN Renal: #Atypical HUS: Ecalizumab DRY GOODS CLERK -Eculizumab q 2 weeks, next dose 08/09 -Monitor for hemolysis flare -Monitor LDH, hapto, complement activity qMon, Thurs Neuro/Psych: #Depression/Anxiety: Lexapro DRY GOODS CLERK -Lexapro 10 mg daily -Ativan PRN Infectious [...] around Day +30 to +40 (or Daps [id number] mg po daily if sulfa allergic), pending [...] hospitalization. JASMIN Farfan-C [facility] Mailcode: [id number] [place] [address] iguel Dooley MD - 07/30/2016 2:09 AM [...] per primary team -NPO for surgery Dr. Martinez is the attending of record for this patient care encounter Miguel Dooley MD General Surgery Resident, R3 [id number] Juliette Paulino MD - 07/29/2016 9:24 PM [...] vancomycin, cefepime. Juliette Horton MD Lluvia Perry SUPERVISOR POULTRY HATCHERY - 07/29/2016 4:33 PM PST Daily NPP Note - Auto Transplant Admit [facility] Attending: Qamar Wang MD [facility] Physician: Constantin Link MD PCP: Aashish Hilton MD Benign Hematology: Jim Michael MD ([facility]) Pediatric Heme/Onc: Anh Moreland MD ([place]) Nephrology: Raghav Miller MD ([place]) Date of Admission: 07/15/2016 Conditioning regimen: BEAM [...] d/t moderate pain, no ulceration: Started Dilaudid GROCERY STORE MANAGER 07/27, continue MIVF d/t decreased PO intake/orthostatic [...] for autoBMT Local oncologist: Aashish Hilton MD ([facility]) Benign Hematology: Jim Michael MD ([facility]) Pediatric Heme/Onc: Anh Moreland MD ([place]) Nephrology: Raghav Miller MD ([place]) 04/2015 presented with flank pain CT C/A/P: 11 cm anterior mediastinal mass, pleural effusion & L supraclav adenopathy Needle bx: classical hodgkins, nodular sclerosing type Thoracentesis: reactive/benign BMBx: neg PET: bulky mediastinal mass, SUV 16; bilateral neck SUV 15; also R>L pleural effusion 05/10/15 began ABVE-PC (as per pediatric [id number]) via femoral line 05/16/15 presented with sepsis [...] Above therapy in [place] -> moved to [place] [facility] - genetic testing for aHUS PENDING GDP [...] sooner PRN s/s active bleeding HEENT: #Recent [place] Tooth Extractions (~2-3 weeks 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 No acute issues Cardiovascular: Pretransplant MUGA completed on 06/24/16 (at [facility]) showed a LVEF of 5 5%. #RLE DVT (first noted 07/04/15, persists on 07/16 doppler in R axial calf): Apixaban DRY GOODS CLERK -STOPPED Apixiban 5 mg BID on admission -Received Tx-dose Lovenox until plts <50K (07/15-07/25) -Lovenox 40 mg qpm while thrombocytopenic -See supportive care #Orthostatic HoTN (first noted 07/20): Sx improved with NS boluses but persistently Sx when getting OOB. (07/23) BCx NTD. -1L NS boluses PRN if asymptomatic -MIVF as below -Low threshold to start empiric ABx if worsens GI: #GERD: Pepcid DRY GOODS CLERK -Prilosec 40 mg daily #Mucositis: pain without ulcerations, grade 2 -Continue oral care with normal saline rinses frequently -Liquid medications as able -Transition to IV meds if worsening PO intake -Dilaudid GROCERY STORE MANAGER initiated 07/27 -MIVF as below #[place]: Controlled -Benadryl 25 mg PO q 6 hrs -Zofran IV/PO q 12 hrs -Zyprexa 10 mg qhs -Ativan, Haldol PRN Renal: #Atypical HUS: Ecalizumab DRY GOODS CLERK -Eculizumab q 2 weeks, next dose 08/09 -Monitor for hemolysis flare -Monitor LDH, hapto, complement activity qMon, Thurs Neuro/Psych: #Depression/Anxiety: Lexapro DRY GOODS CLERK -Lexapro 10 mg daily -Ativan PRN Infectious [...] around Day +30 to +40 (or Daps [id number] mg po daily if sulfa allergic), pending [...] Anticipate 3-4 week hospitalization. Lluvia Gonzalez NP [address] [facility] Mailcode: [facility] [place] [address] Qamar Hall MD - 07/29/2016 11:13 AM [...] 20K 5. Pain control for mucositis -conitnue GROCERY STORE MANAGER today See CLAUDINE documentation from today for complete details. Supportive care as outlined in NPP note and our orders from today CODE: FULL QAMAR WANG MD pharmacy teacher [facility] [place] [email or web address] [phone] amar Wang MD - 07/28/2016 11:16 AM [...] S/Interval events: mucositis pain better controlled with GROCERY STORE MANAGER. Maintaining po intake. Mild d iarrhea. No [...] > 20K Pain control for mucositis -conitnue GROCERY STORE MANAGER today Counts at [facility] See CLAUDINE documentation from today for complete details. Supportive care as outlined in NPP note and our orders from today including: -antiemetics -transfusion support- PRBCs today -electrolyte replacement -prophylactic antimicrobials CODE: FULL QAMAR WANG MD pharmacy teacher [facility] [place] [email or web address] [phone] Lluvia Perry SUPERVISOR POULTRY HATCHERY - 07/28/2016 10:32 AM PST Daily NPP Note - Auto Transplant Admit [facility] Attending: Qamar Wang MD [facility] Physician: Constantin Link MD PCP: Aashish Hilton MD Benign Hematology: Jim Michael MD ([facility]) Pediatric Heme/Onc: Anh Moreland MD ([place]) Nephrology: Raghav Miller MD ([place]) Date of Admission: 07/15/2016 Conditioning regimen: BEAM [...] pain, no ulceration: Stable today. Started Dilaudid GROCERY STORE MANAGER , continue MIVF d/t decreased PO intake/orthostatic [...] for autoBMT Local oncologist: Aashish Hilton MD ([facility]) Benign Hematology: Jim Michael MD ([facility]) Pediatric Heme/Onc: Anh Moreland MD ([place]) Nephrology: Raghav Miller MD ([place]) 04/2015 presented with flank pain CT C/A/P: 11 cm anterior mediastinal mass, pleural effusion & L supraclav adenopathy Needle bx: classical hodgkins, nodular sclerosing type Thoracentesis: reactive/benign BMBx: neg PET: bulky mediastinal mass, SUV 16; bilateral neck SUV 15; also R>L pleural effusion 05/10/15 began ABVE-PC (as per pediatric [id number]) via femoral line 05/16/15 presented with sepsis [...] Above therapy in [place] -> moved to [place] Contin[facility] - genetic testing for aHUS PENDING GDP [...] sooner PRN s/s active bleeding HEENT: #Recent [place] Tooth Extractions (~2-3 weeks 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 No acute issues Cardiovascular: Pretransplant MUGA completed on 06/24/16 (at [facility]) showed a LVEF of 5 5%. #RLE DVT (first noted 07/04/15, persists on 07/16 doppler in R axial calf): Apixaban DRY GOODS CLERK -STOPPED Apixiban 5 mg BID on admission -Received Tx-dose Lovenox until plts <50K (07/15-07/25) -Lovenox 40 mg qpm while thrombocytopenic -See supportive care #Orthostatic HoTN (first noted 07/20): Sx improved with NS boluses but persistently Sx when getting OOB. (07/23) BCx NTD. -1L NS boluses PRN if asymptomatic -MIVF as below -Low threshold to start empiric ABx if worsens GI: #GERD: Pepcid DRY GOODS CLERK -Prilosec 40 mg daily #Mucositis: pain without ulcerations, grade 2 -Continue oral care with normal saline rinses frequently -Liquid medications as able -Transition to IV meds if worsening PO intake -Dilaudid GROCERY STORE MANAGER initiated 07/27 -MIVF as below #[place]: Controlled -Benadryl 25 mg PO q 6 hrs -Zofran IV/PO q 12 hrs -Zyprexa 10 mg qhs -Ativan, Haldol PRN Renal: #Atypical HUS: Ecalizumab DRY GOODS CLERK -Eculizumab q 2 weeks, next dose 08/09 -Monitor for hemolysis flare -Monitor LDH, hapto, complement activity qMon, Thurs Neuro/Psych: #Depression/Anxiety: Lexapro DRY GOODS CLERK -Lexapro 10 mg daily -Ativan PRN Infectious [...] around Day +30 to +40 (or Daps [id number] mg po daily if sulfa allergic), pending [...] Anticipate 3-4 week hospitalization. Lluvia Gonzalez NP [facility] [address] [facility] Mailcode: [id number] [place] [address] Qamar Hall MD - 07/27/2016 [...] See CLAUDINE note for details. S/Interval events: worsening mucositis. [...] thrombocytopenia) Pain control for mucositis -will add GROCERY STORE MANAGER today-reviewed with patient See CLAUDINE documentation from today for complete details. Supportive care as outlined in NPP note and our orders from today including: -antiemetics -transfusion support -electrolyte replacement -prophylactic antimicrobials CODE: FULL QAMAR WANG MD pharmacy teacher [facility] [place] [email or web address] [phone] ain, Ignacio Bruce, MITA, MPAS - 07/27/2016 3:09 PM PST Daily NPP Note - Auto Transplant Admit [facility] Attending: Kenyatta Wang MD [facility] Physician: Constantin Link MD PCP: Aashish Hilton MD Benign Hematology: Jim Michael MD ([facility]) Pediatric Heme/Onc: Ahn Moreland MD ([place]) Nephrology: Raghav Miller MD ([place]) Date of Admission: 07/15/2016 Conditioning regimen: BEAM Date of transplant: 07/21/2016 Reason for admission: Planned BEAM-conditioned auto PBSCT for HL 24-Hr Events/Daily Plan: -Relapsed HL: Adm for BEAM auto PBSCT -Pancytopenia d/t conditioning chemo: Keep plts >20K d/t anticoagulation, standard Hct mariano sfusion parameters. No transfusions today. -Atypical HUS: Conts Eculizumab q 2 weeks, next dose 07/26 (ordered in [facility]). Monitor for h emolysis flare. Monitor LDH, hapto, complement activity qMon, Thurs. -RLE DVT (first noted 07/04/15, persists on 07/16 doppler in R axial calf): Plts 40 today, s o decreased Lovenox to 40 mg qpm and will keep plts >20K. -Mucositis Grade 2: worsening overnight - start Dilaudid [employer] MANAGER 07/27 -[place]: Mostly controlled with scheduled Benadryl, [...] for autoBMT Local oncologist: Aashish Hilton MD ([facility]) Benign Hematology: Jim Michael MD ([facility]) Pediatric Heme/Onc: Anh Moreland MD ([place]) Nephrology: Raghav Miller MD ([place]) 04/2015 presented with flank pain CT C/A/P: 11 cm anterior mediastinal mass, pleural effusion & L supraclav adenopathy Needle bx: classical hodgkins, nodular sclerosing type Thoracentesis: reactive/benign BMBx: neg PET: bulky mediastinal mass, SUV 16; bilateral neck SUV 15; also R>L pleural effusion 05/10/15 began ABVE-PC (as per pediatric [id number]) via femoral line 05/16/15 presented with sepsis [...] Above therapy in [place] -> moved to [place] Continued on ecalizumab per benign heme ([place]) [...] sooner PRN s/s active bleeding HEENT: #Recent [place] Tooth Extractions (~2-3 weeks 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 No acute issues Cardiovascular: Pretransplant MUGA completed on 06/24/16 (at [facility]) showed a LVEF of 5 5%. #RLE DVT (first noted 07/04/15, persists on 07/16 doppler in R axial calf): Apixaban DRY GOODS CLERK -STOPPED Apixiban 5 mg BID on admission -Received Tx-dose Lovenox until plts <50K (07/15-07/25) -Lovenox 40 mg qpm while thrombocytopenic -See supportive care #Orthostatic HoTN (first noted 07/20): Sx improved with NS boluses but persistently Sx when getting OOB -1L NS boluses PRN; last given x2 on 07/24 -(07/23) BCx: NTD -Low threshold to start empiric ABx if worsens GI: #GERD: Pepcid DRY GOODS CLERK -Prilosec 40 mg daily #Mucositis - grade 2 (07/26) -Continue oral care with normal saline rinses frequently -Liquid medications as able -transition to IV if worsening PO intake #[place]: Controlled -Benadryl 25 mg PO q 6 hrs -Zofran IV/PO q 12 hrs -Zyprexa 10 mg qhs -Ativan, Haldol PRN Renal: #Atypical HUS: Ecalizumab DRY GOODS CLERK -Eculizumab q 2 weeks, next dose 07/26 -Monitor for hemolysis flare -Monitor LDH, hapto, complement activity qMon, Thurs Neuro/Psych: #Depression/Anxiety: Lexapro DRY GOODS CLERK -Lexapro 10 mg daily -Ativan PRN Infectious [...] around Day +30 to +40 (or Daps [id number] mg po daily if sulfa allergic), pending [...] 3-4 week hospitalization. JOSE RAMON Pemberton PA-C [facility] 14K [address] [facility] Mailcode: K[address] [place], [place] [id number] [phone] signed by Ignacio Decker PA-C,JOSE RAMON at [...] -prophylactic antimicrobials CODE: FULL QAMAR WANG MD pharmacy teacher [email or web address] [phone] ain, Ignacio Bruce PA-C, MPAS - 07/26/2016 1:18 PM PST Daily NPP Note - Auto Transplant Admit [facility] Attending: Kenyatta Wang MD [facility] Physician: Constantin Link MD PCP: Aashish Hilton MD Benign Hematology: Jim Michael MD ([facility]) Pediatric Heme/Onc: Anh Moreland MD ([place]) Nephrology: Raghav Miller MD ([place]) Date of Admission: 07/15/2016 Conditioning regimen: BEAM Date of transplant: 07/21/2016 Reason for admission: Planned BEAM-conditioned auto PBSCT for HL 24-Hr Events/Daily Plan: -Relapsed HL: Adm for BEAM auto PBSCT -Pancytopenia d/t conditioning chemo: Keep plts >20K d/t anticoagulation, standard Hct mariano sfusion parameters. No transfusions today. -Atypical HUS: Conts Eculizumab q 2 weeks, next dose 07/26 (ordered in [facility]). Monitor for h emolysis flare. Monitor LDH, [...] for autoBMT Local oncologist: Aashish Hilton MD ([facility]) Benign Hematology: Jim Michael MD ([facility]) Pediatric Heme/Onc: Anh Moreland MD ([place]) Nephrology: Raghav Miller MD ([place]) 04/2015 presented with flank pain CT C/A/P: 11 cm anterior mediastinal mass, pleural effusion & L supraclav adenopathy Needle bx: classical hodgkins, nodular sclerosing type Thoracentesis: reactive/benign BMBx: neg PET: bulky mediastinal mass, SUV 16; bilateral neck SUV 15; also R>L pleural effusion 05/10/15 began ABVE-PC (as per pediatric [id number]) via femoral line 05/16/15 presented with sepsis [...] Above therapy in [place] -> moved to [place] Continued on ecalizumab per benign heme ([facility]) - genetic testing for aHUS [...] sooner PRN s/s active bleeding HEENT: #Recent [place] Tooth Extractions (~2-3 weeks 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 No acute issues Cardiovascular: Pretransplant MUGA completed on 06/24/16 (at [facility]) showed a LVEF of 5 5%. #RLE DVT (first noted 07/04/15, persists on 07/16 doppler in R axial calf): Apixaban DRY GOODS CLERK -STOPPED Apixiban 5 mg BID on admission -Received Tx-dose Lovenox until plts <50K (07/15-07/25) -Lovenox 40 mg qpm while thrombocytopenic -See supportive care #Orthostatic HoTN (first noted 07/20): Sx improved with NS boluses but persistently Sx when getting OOB -1L NS boluses PRN; last given x2 on 07/24 -(07/23) BCx: NTD -Low threshold to start empiric ABx if worsens GI: #GERD: Pepcid DRY GOODS CLERK -Prilosec 40 mg daily #Mucositis - grade 2 (07/26) -Continue oral care with normal saline rinses frequently -Liquid medications as able -transition to IV if worsening PO intake #[place]: Controlled -Benadryl 25 mg PO q 6 hrs -Zofran IV/PO q 12 hrs -Zyprexa 10 mg qhs -Ativan, Haldol PRN Renal: #Atypical HUS: Ecalizumab DRY GOODS CLERK -Eculizumab q 2 weeks, next dose 07/26 -Monitor for hemolysis flare -Monitor LDH, hapto, complement activity qMon, Thurs Neuro/Psych: #Depression/Anxiety: Lexapro DRY GOODS CLERK -Lexapro 10 mg daily -Ativan PRN Infectious [...] around Day +30 to +40 (or Daps [id number] mg po daily if sulfa allergic), pending [...] week hospitalization. Ignacio Decker PA-C, JOSE RAMON [facility] [address]K [address] [facility] Mailcode: Kpv[address] [place] [address] ary Pérez MD - 07/25/2016 1:53 PM PST [facility] Inpatient Service Inpatient Attending Progress Note Date: [...] effusion 05/10/15 began ABVE-PC (as per pediatric [id number]) via femoral line 05/16/15 presented with sepsis [...] neck: classical Hodgkins - Above therapy in [place] -> moved to [facility]. Continued on ecalizumab per benign heme ([place]) [...] with recovery of counts. Will return to [place]. Mary Pérez MD Pager: [phone] [facility] DEPARTMENT: [phone]- [facility] FACULTY MPV Place of Service:- Inpatient Date of Service: 07/25/2016 Suggested CPT:58755 - Subsequent, Detailed/High complex Vandana Chance FNP - 07/25/2016 11:09 AM PSTFo rmatting of this note might be different from the original. Daily NPP Note - Auto Transplant Admit [facility] Attending: Mary Pérez MD [facility] Physician: Constantin Link MD PCP: Aashish Hilton MD Benign Hematology: Jim Michael MD ([facility]) Pediatric Heme/Onc: Anh Moreland MD ([place]) Nephrology: Raghav Miller MD ([place]) Date of Admission: 07/15/2016 Conditioning regimen: BEAM Date of transplant: 07/21/2016 Reason for admission: Planned BEAM-conditioned auto PBSCT for HL 24-Hr Events/Daily Plan: -Relapsed HL: Adm for BEAM auto PBSCT -Pancytopenia d/t conditioning chemo: Keep plts >20K d/t anticoagulation, standard Hct mariano sfusion parameters. Transfused 1 unit PRBCs today -Atypical HUS: Conts Eculizumab q 2 weeks, next dose 07/26 (ordered in [facility]). Monitor for h emolysis flare. Monitor LDH, [...] for autoBMT Local oncologist: Aashish Hilton MD ([facility]) Benign Hematology: Jim Michael MD ([facility]) Pediatric Heme/Onc: Anh Moreland MD ([place]) Nephrology: Raghav Miller MD ([place]) 04/2015 presented with flank pain CT C/A/P: 11 cm anterior mediastinal mass, pleural effusion & L supraclav adenopathy Needle bx: classical hodgkins, nodular sclerosing type Thoracentesis: reactive/benign BMBx: neg PET: bulky mediastinal mass, SUV 16; bilateral neck SUV 15; also R>L pleural effusion 05/10/15 began ABVE-PC (as per pediatric [id number]) via femoral line 05/16/15 presented with sepsis [...] Above therapy in [place] -> moved to [place] Contin[facility] - genetic testing for aHUS PENDING GDP [...] sooner PRN s/s active bleeding HEENT: #Recent [place] Tooth Extractions (~2-3 weeks 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 No acute issues Cardiovascular: Pretransplant MUGA completed on 06/24/16 (at [facility]) showed a LVEF of 5 5%. #RLE DVT (first noted 07/04/15, persists on 07/16 doppler in R axial calf): Apixaban DRY GOODS CLERK -STOPPED Apixiban 5 mg BID on admission -Received Tx-dose Lovenox until plts <50K (07/15-07/25) -Lovenox 40 mg qpm while thrombocytopenic -See supportive care #Orthostatic HoTN (first noted 07/20): Sx improved with NS boluses but persistently Sx when getting OOB -1L NS boluses PRN; last given x2 on 07/24 -(07/23) BCx: NTD -Low threshold to start empiric ABx if worsens GI: #GERD: Pepcid DRY GOODS CLERK -Prilosec 40 mg daily #Risk for Mucositis: No e/o mucositis currently -Continue oral care with normal saline rinses frequently #[place]: Controlled -Benadryl 25 mg PO q 6 hrs -Zofran IV/PO q 12 hrs -Zyprexa 10 mg qhs -Ativan, Haldol PRN Renal: #Atypical HUS: Ecalizumab DRY GOODS CLERK -Eculizumab q 2 weeks, next dose 07/26 -Monitor for hemolysis flare -Monitor LDH, hapto, complement activity qMon, Thurs Neuro/Psych: #Depression/Anxiety: Lexapro DRY GOODS CLERK -Lexapro 10 mg daily -Ativan PRN Infectious [...] around Day +30 to +40 (or Daps [id number] mg po daily if sulfa allergic), pending [...] PBSCT. Anticipate 3-4 week hospitalization. MORENA Marshall [facility] [address]K [address] [facility] Mailcode: [facility] [place] [address] russell, MORENA Benz - 07/24/2016 3:43 PM PST Daily NPP Note - Auto Transplant Admit [facility] Attending: Mary Pérez MD [facility] Physician: Constantin Link MD PCP: Aashish Hilton MD Benign Hematology: Jim Michael MD ([facility]) Pediatric Heme/Onc: Anh Moreland MD ([place]) Nephrology: Raghav Miller MD ([place]) Date of Admission: 07/15/2016 Conditioning regimen: BEAM Date of transplant: 07/21/2016 Reason for admission: Planned BEAM-conditioned auto PBSCT for HL 24-Hr Events/Daily Plan: -Relapsed HL: Adm for BEAM auto PBSCT -Pancytopenia d/t conditioning chemo: Above standard transfusion threshold. -Atypical HUS: Conts Eculizumab q 2 weeks, next dose 07/26 (ordered in [facility]). Monitor for h emolysis flare. Monitor LDH, [...] for autoBMT Local oncologist: Aashish Hilton MD ([facility]) Benign Hematology: Jim Michael MD ([facility]) Pediatric Heme/Onc: Anh Moreland MD ([place]) Nephrology: Raghav Miller MD ([place]) 04/2015 presented with flank pain CT C/A/P: 11 cm anterior mediastinal mass, pleural effusion & L supraclav adenopathy Needle bx: classical hodgkins, nodular sclerosing type Thoracentesis: reactive/benign BMBx: neg PET: bulky mediastinal mass, SUV 16; bilateral neck SUV 15; also R>L pleural effusion 05/10/15 began ABVE-PC (as per pediatric [id number]) via femoral line 05/16/15 presented with sepsis [...] Above therapy in [place] -> moved to [place] Continued on ecalizumab per benign heme ([place]) [...] sooner PRN s/s active bleeding HEENT: #Recent [place] Tooth Extractions (~2-3 weeks 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 No acute issues Cardiovascular: Pretransplant MUGA completed on 06/24/16 (at [facility]) showed a LVEF of 5 5%. #RLE DVT (first noted 07/04/15, persists on 07/16 doppler in R axial calf): Apixaban DRY GOODS CLERK -STOPPED Apixiban 5 mg BID on admission -Tx-dose Lovenox until plts <50K, then decrease to prophy dose Lovenox -See supportive care #Orthostatic HoTN (first noted 07/20): Sx improved with NS boluses but persistently Sx when getting OOB -1L NS boluses PRN; last given x2 on 07/24 -(07/23) BCx: NTD -Low threshold to start empiric ABx if persists GI: #GERD: Pepcid DRY GOODS CLERK -Prilosec 40 mg daily #Risk for Mucositis: No e/o mucositis currently -Continue oral care with normal saline rinses frequently #[place]: Controlled -Benadryl 25 mg PO q 6 hrs -Zofran IV/PO q 12 hrs -Zyprexa 10 mg qhs -Ativan, Haldol PRN Renal: #Atypical HUS: Ecalizumab DRY GOODS CLERK -Eculizumab q 2 weeks, next dose 07/26 -Monitor for hemolysis flare -Monitor LDH, hapto, complement activity qMon, Thurs Neuro/Psych: #Depression/Anxiety: Lexapro DRY GOODS CLERK -Lexapro 10 mg daily -Ativan PRN Infectious [...] around Day +30 to +40 (or Daps [id number] mg po daily if sulfa allergic), pending [...] PBSCT. Anticipate 3-4 week hospitalization. MORENA Marshall [address] [place] [address] Mailcode: [address] [place] [address] l Indiana Cabrera MD - 07/24/2016 2:19 PM PSTFormatting of this note might be different from the [facility] Inpatient Service Inpatient Attending Progress Note Date: [...] effusion 05/10/15 began ABVE-PC (as per pediatric [id number]) via femoral line 05/16/15 presented with sepsis [...] neck: classical Hodgkins - Above therapy in [place] -> moved to [facility]. Continued on ecalizumab per benign heme ([place]) [...] with recovery of counts. Will return to [place]. Mary Pérez MD Pager: [phone] [facility] DEPARTMENT: [phone]- [facility] FACULTY MPV Place of Service:- Inpatient Date of Service: 07/24/2016 Suggested CPT:96862 - Subsequent, Detailed/High complex Vandana Chance FNP - 07/23/2016 4:01 PM PSTFo rmatting of this note might be different from the original. Daily NPP Note - Auto Transplant Admit [facility] Attending: Emery Chilel MD [facility] Physician: Constantin Link MD PCP: Aashish Hilton MD Benign Hematology: Jim Michael MD ([facility]) Pediatric Heme/Onc: Anh Moreland MD ([place]) Nephrology: Raghav Miller MD ([place]) Date of Admission: 07/15/2016 Conditioning regimen: BEAM Date of transplant: 07/21/2016 Reason for admission: Planned BEAM-conditioned auto PBSCT for HL 24-Hr Events/Daily Plan: -Relapsed HL: Adm for BEAM auto PBSCT -Pancytopenia d/t conditioning chemo: Above standard transfusion threshold. -Atypical HUS: Conts Eculizumab q 2 weeks, next dose 07/26 (ordered in [facility]). Monitor for h emolysis flare. Monitor LDH, [...] for autoBMT Local oncologist: Aashish Hilton MD ([facility]) Benign Hematology: Jim Michael MD ([facility]) Pediatric Heme/Onc: Anh Moreland MD ([place]) Nephrology: Raghav Miller MD ([place]) 04/2015 presented with flank pain CT C/A/P: 11 cm anterior mediastinal mass, pleural effusion & L supraclav adenopathy Needle bx: classical hodgkins, nodular sclerosing type Thoracentesis: reactive/benign BMBx: neg PET: bulky mediastinal mass, SUV 16; bilateral neck SUV 15; also R>L pleural effusion 05/10/15 began ABVE-PC (as per pediatric [id number]) via femoral line 05/16/15 presented with sepsis [...] Above therapy in [place] -> moved to [place] [facility] - genetic testing for aHUS PENDING GDP [...] sooner PRN s/s active bleeding HEENT: #Recent [place] Tooth Extractions (~2-3 weeks 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 No acute issues Cardiovascular: Pretransplant MUGA completed on 06/24/16 (at [facility]) showed a LVEF of 5 5%. #RLE DVT (first noted 07/04/15, persists on 07/16 doppler in R axial calf): Apixaban DRY GOODS CLERK -STOPPED Apixiban 5 mg BID on admission -Tx-dose Lovenox until plts <50K, then decrease to prophy dose Lovenox -See supportive care #Orthostatic HoTN (first noted 07/20, then SBP briefly in 80s overnight on 07/22): Sx improve d with 1L NS bolus but persistently tachycardic on rounds 07/23. -NS boluses PRN; last given 07/23 -(07/23) BCx PENDING GI: #GERD: Pepcid DRY GOODS CLERK -Prilosec 40 mg daily #Risk for Mucositis: No e/o mucositis currently -Continue oral care with normal saline rinses frequently #[place]: Controlled -Benadryl 25 mg PO q 6 hrs -Zofran IV/PO q 12 hrs -Ativan, Haldol PRN Renal: #Atypical HUS: Ecalizumab DRY GOODS CLERK -Eculizumab q 2 weeks, next dose 07/26 -Monitor for hemolysis flare -Monitor LDH, hapto, complement activity qMon, Thurs Neuro/Psych: #Depression/Anxiety: Lexapro DRY GOODS CLERK -Lexapro 10 mg daily -Ativan PRN Infectious [...] around Day +30 to +40 (or Daps [id number] mg po daily if sulfa allergic), pending [...] PBSCT. Anticipate 3-4 week hospitalization. MORENA Marshall [facility] [address] [facility] Mailcode: [address] [place] [address] l Indiana Cabrera MD - 07/23/2016 3:03 PM PSTFormatting of this note might be different from the origin al. [facility] Inpatient Service Inpatient Attending Progress Note Date: [...] effusion 05/10/15 began ABVE-PC (as per pediatric [id number]) via femoral line 05/16/15 presented with sepsis [...] neck: classical Hodgkins - Above therapy in [place] -> moved to [facility]. [facility] - genetic testing for aHUS PENDING GDP [...] with recovery of counts Will return to [place]. Mary Pérez MD Pager: [phone] [facility] DEPARTMENT: [phone]- [facility] FACULTY MPV Place of Service:- Inpatient Date of Service: 07/23/2016 Suggested CPT:29602 - Subsequent, Detailed/High complex ain, Ignacio Bruce PA-C,MPAS - 07/22/2016 3:52 PM PSTFormat ting of this note might be different from the original. Daily NPP Note - Auto Transplant Admit [facility] Attending: Emery Chilel MD [facility] Physician: Constantin Link MD PCP: Aashish Hilton MD Benign Hematology: Jim Michael MD ([facility]) Pediatric Heme/Onc: Anh Moreland MD ([place]) Nephrology: Raghav Miller MD ([place]) Date of Admission: 07/15/2016 Conditioning regimen: BEAM [...] for autoBMT Local oncologist: Aashish Hilton MD ([facility]) Benign Hematology: Jim Michael MD ([facility]) Pediatric Heme/Onc: Anh Moreland MD ([place]) Nephrology: Raghav Miller MD ([place]) 04/2015 presented with flank pain CT C/A/P: 11 cm anterior mediastinal mass, pleural effusion & L supraclav adenopathy Needle bx: classical hodgkins, nodular sclerosing type Thoracentesis: reactive/benign BMBx: neg PET: bulky mediastinal mass, SUV 16; bilateral neck SUV 15; also R>L pleural effusion 05/10/15 began ABVE-PC (as per pediatric [id number]) via femoral line 05/16/15 presented with sepsis [...] Above therapy in [place] -> moved to [place] Continued on ecalizumab per benign heme ([place]) [...] sooner PRN s/s active bleeding HEENT: #Recent [place] Tooth Extractions (~2-3 weeks 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 No acute issues Cardiovascular: Pretransplant MUGA completed on 06/24/16 (at [facility]) showed a LVEF of 5 5%. #RLE DVT (first noted 07/04/15, persists on 07/16 doppler in R axial calf): Apixaban DRY GOODS CLERK -STOPPED Apixiban 5 mg BID on admission -Tx-dose Lovenox until plts <50K, then decrease to prophy dose Lovenox -See supportive care #Orthostatic HoTN: noted 07/20, give 500 mL fluid bolus. RESOLVED GI: #GERD: Pepcid DRY GOODS CLERK -Prilosec 40 mg daily #Risk for Mucositis: No e/o mucositis currently -Continue oral care with normal saline rinses frequently #[place]: -continue PRN ativan and benadryl Renal: #Atypical HUS: Ecalizumab DRY GOODS CLERK -Eculizumab q 2 weeks, next dose 07/26 -Monitor for hemolysis flare -Monitor LDH, hapto, complement activity qMon, Thurs Neuro/Psych: #Depression/Anxiety: Lexapro DRY GOODS CLERK -Lexapro 10 mg daily -Ativan PRN Infectious [...] around Day +30 to +40 (or Daps [id number] mg po daily if sulfa allergic), pending [...] 3-4 week hospitalization. JOSE RAMON Pemberton PA-C [place] [id number] [facility] Mailcode: [address] [place] [address] ary Pérez MD - 07/22/2016 8:54 AM PST [facility] Inpatient Service Inpatient Attending Progress Note Date: [...] effusion 05/10/15 began ABVE-PC (as per pediatric [id number]) via femoral line 05/16/15 presented with sepsis [...] neck: classical Hodgkins - Above therapy in [place] -> moved to [facility] Continued on ecalizumab per benign heme ([place]) [...] with recovery of counts Will return to [place]. Mary Pérez MD Pager: [phone] [facility] DEPARTMENT: [phone]- [facility] FACULTY MPV Place of Service:- Inpatient Date of Service: 07/22/2016 Suggested CPT:43704 - Subsequent, Detailed/High complex Trinity Us ANP - 07/21/2016 1:18 PM PSTFormshari g of this note might be different from the original. Daily NPP Note - Auto Transplant Admit [facility] Attending: Emery Chilel MD [facility] Physician: Constantin Link MD PCP: Aashish Hilton MD Benign Hematology: Jim Michael MD ([facility]) Pediatric Heme/Onc: Anh Moreland MD ([place]) Nephrology: Raghav Miller MD ([place]) Date of Admission: 07/15/2016 Conditioning regimen: BEAM [...] for autoBMT Local oncologist: Aashish Hilton MD ([facility]) Benign Hematology: Jim Michael MD ([facility]) Pediatric Heme/Onc: Anh Moreland MD ([place]) Nephrology: Raghav Miller MD ([place]) 04/2015 presented with flank pain CT C/A/P: 11 cm anterior mediastinal mass, pleural effusion & L supraclav adenopathy Needle bx: classical hodgkins, nodular sclerosing type Thoracentesis: reactive/benign BMBx: neg PET: bulky mediastinal mass, SUV 16; bilateral neck SUV 15; also R>L pleural effusion 05/10/15 began ABVE-PC (as per pediatric [id number]) via femoral line 05/16/15 presented with sepsis [...] Above therapy in [place] -> moved to [place] Continued on ecalizumab per benign heme ([place]) [...] sooner PRN s/s active bleeding HEENT: #Recent [place] Tooth Extractions (~2-3 weeks 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 No acute issues Cardiovascular: Pretransplant MUGA completed on 06/24/16 (at [facility]) showed a LVEF of 5 5%. #RLE DVT (first noted 07/04/15, persists on 07/16 doppler in R axial calf): Apixaban DRY GOODS CLERK -STOPPED Apixiban 5 mg BID on admission -Tx-dose Lovenox until plts <50K, then decrease to prophy dose Lovenox -See supportive care #Orthostatic HoTN: noted 07/20, give 500 mL fluid bolus. RESOLVED GI: #GERD: Pepcid DRY GOODS CLERK -Prilosec 40 mg daily #Risk for Mucositis: No e/o mucositis currently -Continue oral care with normal saline rinses frequently #[place]: -continue PRN ativan and benadryl Renal: #Atypical HUS: Ecalizumab DRY GOODS CLERK -Eculizumab q 2 weeks, next dose 07/26 -Monitor for hemolysis flare -Monitor LDH, hapto, complement activity qMon, Thurs Neuro/Psych: #Depression/Anxiety: Lexapro DRY GOODS CLERK -Lexapro 10 mg daily -Ativan PRN Infectious [...] around Day +30 to +40 (or Daps [id number] mg po daily if sulfa allergic), pending [...] Anticipate 3-4 week hospitalization. KRISHNA Valverde ANP [facility] 14K [address] [facility] Mailcode: [id number] [place] [address] Emery Durán MD - 07/21/2016 1:06 PM [...] discussion of issues regarding stem cell infusion. [facility] DEPARTMENT: [id number] - [facility] FACULTY MPV Place of Service: - Inpatient Date of Service: 07/21/2016 Suggested CPT: 85379 - Subsequent, Exp Prob Foc/Mod Complex anning, JASMIN Pantoja - 07/20/2016 3:12 PM PST Daily NPP Note - Auto Transplant Admit [facility] Attending: Emery Chilel MD [facility] Physician: Constantin Link MD PCP: Aashish Hilton MD Benign Hematology: Jim Michael MD ([facility]) Pediatric Heme/Onc: Anh Moreland MD ([place]) Nephrology: Raghav Miller MD ([place]) Date of Admission: 07/15/2016 Conditioning regimen: BEAM [...] for autoBMT Local oncologist: Aashish Hilton MD ([facility]) Benign Hematology: Jim Michael MD ([facility]) Pediatric Heme/Onc: Anh Moreland MD ([place]) Nephrology: Raghav Miller MD ([place]) 04/2015 presented with flank pain CT C/A/P: 11 cm anterior mediastinal mass, pleural effusion & L supraclav adenopathy Needle bx: classical hodgkins, nodular sclerosing type Thoracentesis: reactive/benign BMBx: neg PET: bulky mediastinal mass, SUV 16; bilateral neck SUV 15; also R>L pleural effusion 05/10/15 began ABVE-PC (as per pediatric [id number]) via femoral line 05/16/15 presented with sepsis [...] Above therapy in [place] -> moved to [facility] Continued on ecalizumab per benign heme ([facility]) - genetic testing for aHUS [...] sooner PRN s/s active bleeding HEENT: #Recent [place] Tooth Extractions (~2-3 weeks 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 No acute issues Cardiovascular: Pretransplant MUGA completed on 06/24/16 (at [facility]) showed a LVEF of 5 5%. #RLE DVT (first noted 07/04/15, persists on 07/16 doppler in R axial calf): Apixaban DRY GOODS CLERK -STOPPED Apixiban 5 mg BID on admission -Tx-dose Lovenox until plts <50K, then decrease to prophy dose Lovenox -See supportive care GI: #GERD: Pepcid DRY GOODS CLERK -Prilosec 40 mg daily #Risk for Mucositis: No e/o mucositis currently -Continue oral care with normal saline rinses frequently Renal: #Atypical HUS: Ecalizumab DRY GOODS CLERK -Eculizumab q 2 weeks, next dose 07/26 -Monitor for hemolysis flare -Monitor LDH, hapto, complement activity qMon, Thurs Neuro/Psych: #Depression/Anxiety: Lexapro DRY GOODS CLERK -Lexapro 10 mg daily -Ativan PRN Infectious [...] around Day +30 to +40 (or Daps [id number] mg po daily if sulfa allergic), pending [...] PBSCT. Anticipate 3-4 week hospitalization. JASMIN Cat [facility] 14K [address] [facility] Mailcode: Kpv14 [place] [address] Emery Durán MD - 07/20/2016 11:10 AM [...] stem cell infusion, monitoring, timing and plan. [facility] DEPARTMENT: [id number] - [facility]ACULT[facility] MPV Place of Service: - Inpatient Date of Service: 07/20/2016 Suggested CPT: 30749 - Subsequent, Detailed/High complex Jessica Lomax MD - 07/19/2016 12:39 PM PST Hematologic Malignancies Attending Inpatient Progress Note: Meggan Otero is a 20 y.o. 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, admit for autoBMT Local oncologist: Aashish Hilton MD ([facility]) Benign Hematology: Jim Michael MD ([facility]) Pediatric Heme/Onc: Anh Moreland MD ([place]) Nephrology: Raghav Miller MD ([place]) 04/2015 presented with flank pain CT C/A/P: 11 cm anterior mediastinal mass, pleural effusion & L supraclav adenopathy Needle bx: classical hodgkins, nodular sclerosing type Thoracentesis: reactive/benign BMBx: neg PET: bulky mediastinal mass, SUV 16; bilateral neck SUV 15; also R>L pleural effusion 05/10/15 began ABVE-PC (as per pediatric [id number]) via femoral line 05/16/15 presented with sepsis [...] Above therapy in [place] -> moved to [facility] Continued on ecalizumab per benign heme ([facility]) [...] Progress Note:I rounded today in conjunction w [employer] CLAUDINE I saw the patient, reviewed the history and various studies and developed the assessment an d plan. Please see the CLAUDINE documentation from today for details Meggan Otero is a 20 y.o. 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, admit for autoBMT Local oncologist: Aashish Hilton MD ([facility]) Benign Hematology: Jim Michael MD ([facility]) Pediatric Heme/Onc: Anh Moreland MD ([place]) Nephrology: Raghav Miller MD ([place]) 04/2015 presented with flank pain CT C/A/P: 11 cm anterior mediastinal mass, pleural effusion & L supraclav adenopathy Needle bx: classical hodgkins, nodular sclerosing type Thoracentesis: reactive/benign BMBx: neg PET: bulky mediastinal mass, SUV 16; bilateral neck SUV 15; also R>L pleural effusion 05/10/15 began ABVE-PC (as per pediatric [id number]) via femoral line 05/16/15 presented with sepsis [...] Above therapy in [place] -> moved to [facility] Continued on ecalizumab per benign heme ([facility]) - genetic testing for aHUS PENDING GDP x3 06/2017 CR by PET Goodman placed GCSF stem cell mobilization: 7.3 x10^6 cd34/kg S> Patient doing well. She is noting some nausea, no vomiting. No shortness of breath, dysp delilah on exertion or chest pain. No fevers. 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 Left cervical lymph node, biopsy ([id number], 03/16/2016): - Nodular sclerosis, classical Hodgkin's lymphoma [...] Jessica Mac MD rgino Willa so Bruce, CLOTH MENDER - 07/17/2016 2:51 PM PSTFormatting of this note might be different from the orig inal. Daily NPP Note - Auto Transplant Admit [facility] Attending: Jessica Mac MD [facility] Physician: Constantin Link MD PCP: Aashish Hilton MD Benign Hematology: Jim Michael MD ([facility]) Pediatric Heme/Onc: Anh Moreland MD ([place]) Nephrology: Raghav Miller MD ([place]) Date of Admission: 07/15/2016 Conditioning regimen: BEAM [...] for autoBMT Local oncologist: Aashish Hilton MD ([facility]) Benign Hematology: Jim Michael MD ([facility]) Pediatric Heme/Onc: Anh Moreland MD ([place]) Nephrology: Raghav Miller MD ([place]) 04/[address] presented with flank pain CT C/A/P: 11 cm anterior mediastinal mass, pleural effusion & L supraclav adenopathy Needle bx: classical hodgkins, nodular sclerosing type Thoracentesis: reactive/benign BMBx: neg PET: bulky mediastinal mass, SUV 16; bilateral neck SUV 15; also R>L pleural effusion 05/10/15 began ABVE-PC (as per pediatric [id number]) via femoral line 05/16/15 presented with sepsis [...] Above therapy in [place] -> moved to [facility] Continued on ecalizumab per benign heme ([facility]) [...] sooner PRN s/s active bleeding HEENT: #Recent [place] Tooth Extractions (~2-3 weeks 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 No acute issues Cardiovascular: Pretransplant MUGA completed on 06/24/16 (at [facility]) showed a LVEF of 5 5%. #RLE DVT (first noted 07/04/15, persists on 07/16 doppler in R axial calf): Apixaban DRY GOODS CLERK -STOPPED Apixiban 5 mg BID on admission -Tx-dose Lovenox until plts <50K, then decrease to prophy dose Lovenox -See supportive care GI: #GERD: Pepcid DRY GOODS CLERK -Prilosec 40 mg daily #Risk for Mucositis: No e/o mucositis currently -Continue oral care with normal saline rinses frequently Renal: #Atypical HUS: Ecalizumab DRY GOODS CLERK -Eculizumab q 2 weeks, next dose 07/26 -Monitor for hemolysis flare -Monitor LDH, hapto, complement activity qMon, Thurs Musculoskeletal: No acute issues Neuro/Psych: #Depression/Anxiety: Lexapro DRY GOODS CLERK -Lexapro 10 mg daily -Ativan PRN Skin: [...] around Day +30 to +40 (or Daps [id number] mg po daily if sulfa allergic), pending [...] PBSCT. Anticipate 3-4 week hospitalization. MORENA Marshall [address] [facility] Mailcode: Kpv14 [place] [address] Yesi Lomax MD - 07/17/2016 9:59 AM PSTFormatting of this note might be different from the orig inal. Hematologic Malignancies Attending Inpatient Progress Note:I rounded today in conjunction w [employer] CLAUDINE I saw the patient, reviewed the history and various studies and developed the assessment an d plan. Please see the CLAUDINE documentation from today for details Meggan Otero is a 20 y.o. 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, admit for autoBMT Local oncologist: Aashish Hilton MD ([facility]) Benign Hematology: Jim Michael MD ([facility]) Pediatric Heme/Onc: Anh Moreland MD ([place]) Nephrology: Raghav Miller MD ([place]) 04/2015 presented with flank pain CT C/A/P: 11 cm anterior mediastinal mass, pleural effusion & L supraclav adenopathy Needle bx: classical hodgkins, nodular sclerosing type Thoracentesis: reactive/benign BMBx: neg PET: bulky mediastinal mass, SUV 16; bilateral neck SUV 15; also R>L pleural effusion 05/10/15 began ABVE-PC (as per pediatric [id number]) via femoral line 05/16/15 presented with sepsis [...] Above therapy in [place] -> moved to [facility] Continued on ecalizumab per benign heme ([facility]) - genetic testing for aHUS PENDING GDP x3 06/2017 CR by PET Goodman placed GCSF stem cell mobilization: 7.3 x10^6 cd34/kg S> Patient doing well. No shortness of breath, dyspnea on exertion or chest pain. Some naus ea, no vomiting. 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 Left cervical lymph node, biopsy ([id number], 03/16/2016): - Nodular sclerosis, classical Hodgkin's lymphoma [...] AT,GLUC,CA,AST,ALT,B | | | | | | VIVIENEN TOTAL,ALK | | | | | | [...] | + + + + + | [facility] | [address] | [place] [address] | | | SCOOBY PÉRE[address] | ALVA [...] + + + + | PRODUCT | [id number] | | [facility] | | | UNIT [...] + + + + | EXPIRATION | [id number] | | [facility] | | | DATE [...] + + + + | BLOOD | [id number] | | [facility] | | | PRODUCT [...] | + + + + + | [facility] | [address] | [place] [address] | | | SERVICES, | [address] [...] [facility] | [address] | [place] [address] | | | SERVICES, | [address] [...] | + + + + + | [facility] | [address] | [place] [address] | | | SERVICES, | [address] [...] [facility] | [address] | [place] [address] | | | SERVICES, CORE | ALVA [...] [facility] | [address] | [place] [address] | | | SERVICES, CORE | PARK [...] [facility] | [address] | [place] [address] | | | SERVICES, CORE | PARK [...] + | [facility] | [address] [facility] | [place] [address] | | | SERVICES, CORE | ALVA [...] | | | LABORATORY | | | GHANAIAN | | | SERVICES, | | | [...] + | [facility] | [address] [facility] | [place] [address] | | | [address] | ALVA [...] [facility] | [address] | [place] [address] | | | SERVICES, CORE | ALVA [...] + + + + | PRODUCT | [id number] | | [facility] | | | UNIT [...] + + + + | EXPIRATION | [id number] | | [facility] | | | DATE [...] + + + + | BLOOD | [id number] | | [facility] | | | PRODUCT [...] [facility] | [address] | [place] [address] | | | SERVICES, | [address] [...] [facility] | [address] | [place] [address] | | | SERVICES, CORE | PARK [...] + | [facility] | [address] [facility] | [place] [address] | | | SERVICES, CORE | ALVA [...] | + + + + + | [facility] | [address] | [place] [address] | | | SERVICES, CORE | PARK [...] [facility] | [address] | [place] [address] | | | SERVICES, CORE | PARK [...] | | | LABORATORY | | | GHANAIAN | | | SERVICES, | | | [...] the MDRD equation recommended by the | [facility] | | National Kidney Disease Education Program. [...] [facility] | [address] | [place] [address] | | | SERVICES, CORE | ALVA [...] + + + + | PRODUCT | [id number] | | [facility] | | | UNIT [...] + + + + | EXPIRATION | [id number] | | [facility] | | | DATE [...] + + + + | BLOOD | [id number] | | [facility] | | | PRODUCT [...] [facility] | [address] | [place] [address] | | | SERVICES, | [address] [...] | + + + + + | [facility] | [address] | [place] [address] | | | SERVICES, CORE | ALVA [...] + | [facility] | [address] [facility] | [place] [address] | | | SERVICES, CORE | ALVA [...] [facility] | [address] | [place] [address] | | | SERVICES, CORE | PARK [...] | + + + + + | [facility] | [address] | [place] [address] | | | SERVICES, CORE | PARK [...] + | [facility] | [address] | [place] [address] | | | SERVICES, CORE | ALVA [...] | | | LABORATORY | | | GHANAIAN | | | SERVICES, | | | [...] | + + + + + | [facility] | [address] | [place] [address] | | | SERVICES, CORE | ALVA [...] [facility] | [address] | [place] [address] | | | SERVICES, CORE | ALVA [...] + | [facility] - | [address] | [place] [address] | | | [facility] | | | | + + + [...] | | | | | | Cory, [facility] [address] | | | | | | [phone]. | | | | | | jeimy, [...] [facility] | [address] | [place], [place] | | | [facility] | | [address] | | + + + + + PICC LINE (08/04/2016 11:50 AM PST) + + + | Narrative | Performed At | + + + | Madison Kelly RN 08/04/2016 11:50 AM PICC LINE Performed | | | by: CLOTILDE PRATT Authorized by: CONSTANTIN LINK I PICC/Carlos Eduardo | | | Insertion Procedure Note Indications:Antibiotics [...] correct patient, | | | procedure, equipment, business support assistant and site/side marked as | | | [...] vein. Catheter lot | | | number: [id number] with a length of 55 cm was [...] - PLATELET PHERESIS LEUKOREDUCED (08/04/2016 12:46 AM [facility]) + + + + + + | [...] + + + + | PRODUCT | [id number] | | [facility] | | | UNIT [...] + + + + | EXPIRATION | [id number] | | [facility] | | | DATE [...] + + + + | BLOOD | [id number] | | [facility] | | | PRODUCT [...] [facility] | [address] | [place] [address] | | | SERVICES, | [address] [...] + | [facility] | [address] | [place] [address] | | | SERVICES, CORE | PARK [...] | [facility] | [address] | [place] [address] | | | SERVICES, CORE | ALVA [...] [facility] | [address] | [place] [address] | | | SERVICES, CORE | ALVA [...] [facility] | [address] | [place] [address] | | | SERVICES, CORE | PARK [...] | | | LABORATORY | | | GHANAIAN | | | SERVICES, | | | [...] the MDRD equation recommended by the | [facility] | | National Kidney Disease Education Program. [...] [facility] | [address] | [place] [address] | | | SERVICES, CORE | PARK [...] [facility] | [address] | [place] [address] | | | [address]RE[address] | ALVA [...] + + + + | PRODUCT | [id number] | | [facility] | | | UNIT [...] + + + + | EXPIRATION | [id number] | | [facility] | | | DATE [...] + + + + | BLOOD | [id number] | | [facility] | | | PRODUCT [...] [facility] | [address] | [place] [address] | | | SERVICES, | [address] [...] [facility] | [address] | [place] [address] | | | SERVICES, CORE | PARK [...] [facility] | [address] | [place] [address] | | | SCOO[address]ÉRE[address] | ALVA [...] | + + + + + | [facility] | [address] [facility] | [place] [address] | | | SERVICES, CORE | PARK [...] | + + + + + | [facility] | [address] | [place] [address] | | | SERVICES, SCOOBY | ALVA [...] [facility] | [address] | [place] [address] | | | SERVICES, SCOOBY | ALVA [...] | | | LABORATORY | | | GHANAIAN | | | SERVICES, | | | [...] | Interpretive Information: <60 mL/min/1.73 sq | [facility] | | m Chronic Kidney Disease <15 [...] + + | [facility] | [address] [facility] | [place] [address] | | | SERVICES, CORE | PARK [...] [facility] | [address] | [place] [address] | | | SERVICES, CORE | PARK [...] [facility] | [address] | [place] [address] | | | SERVICES, CORE | PARK [...] | + + + + + | [facility] | [address] | [place] [address] | | | SERVICES, CORE | ALVA [...] [facility] | [address] | [place] [address] | | | SERVICES, CORE | PARK [...] | + + + + + | [facility] | [address] | [place] [address] | | | SERVICES, CORE | [address] | | | + + + + + MAGNESIUM, PLASMA (08/02/2016 4:10 AM PST) + +-------+ + + + | Component | Value | Ref Range | Performed | Pathologist | | | | | At | Signature | + +-------+ + + + | MAGNESIUM,P | 1.9 | 1.8 - 2.5 mg/dL | [facility] | | | LASMA | | | [...] + | [facility] | [address] | [place] [address] | | | SERVICES, CORE | PARK [...] | | | LABORATORY | | | GHANAIAN | | | SERVICES, | | | [...] | + + + + + | [facility] | [address] | [place] [address] | | | SERVICES, CORE | PARK [...] [facility] | [address] | [place] [address] | | | SERVICES, CORE | PARK [...] | + + + + + | [facility] - | [address] | [place] [address] | | | [place] | | | | + + + [...] | | | | | | Laboratories,[address] | | | | | | Cory, [facility],[place] [address] | | | | | | [phone]. | | | | | | jeimy, [...] [facility] | [address] | [place], [place] | | | [facility] | | [address] | | + + + + + [...] [facility] | [address] | [place] [address] | | | SERVICES, CORE | ALVA [...] + + + + | PRODUCT | [id number] | | [facility] | | | UNIT [...] + + + + | EXPIRATION | [id number] | | [facility] | | | DATE [...] + + + + | BLOOD | [id number] | | [facility] | | | PRODUCT [...] | + + + + + | [facility] | [address] | [place] [address] | | | SERVICES, | [address] | | | | TRANSFUSION MEDICINE | | | | + + + + + CULTURE, BLOOD BACTI & YEAST [facility] (07/31/2016 11:49 PM PST) + + + [...] | [facility] | [address] | [place] [address] | | | SERVICES, CORE | PARK [...] [facility] | [address] | [place] [address] | | | SERVICES, CORE | PARK [...] | + + + + + | [facility] | [address] | [place] [address] | | | SERVICES, CORE | PARK [...] [facility] | [address] | [place] [address] | | | SERVICES, CORE | PARK [...] | | | LABORATORY | | | GHANAIAN | | | SERVICES, | | | [...] [facility] | [address] | [place] [address] | | | SERVICES, CORE | PARK [...] | + + + + + | [facility] | [address] [facility] | [place] [address] | | | SERVICES, CORE | PARK [...] + | [facility] | [address] | [place] [address] | | | SERVICES, CORE | ALVA [...] + + + + | PRODUCT | [id number] | | [facility] | | | UNIT [...] + + + + | EXPIRATION | [id number] | | [facility] | | | DATE [...] + + + + | BLOOD | [id number] | | [facility] | | | PRODUCT [...] | + + + + + | [facility] | [address] | [place] [address] | | | SERVICES, | [address] [...] + + + + | PRODUCT | [id number] | | [facility] | | | UNIT [...] + + + + | EXPIRATION | [id number] | | [facility] | | | DATE [...] + + + + | BLOOD | [id number] | | [facility] | | | PRODUCT [...] + + + + + | [facility] | [address] | [place] [address] | | | SERVICES, | [address] [...] | + + + + + | [facility] | [address] | [place] [address] | | | SERVICES, CORE | ALVA [...] | + + + + + | [facility] | [address] | [place] [address] | | | SCOOBY PÉREZ | PARK [...] | + + + + + | [facility] | [address] | [place] [address] | | | SERVICES, CORE | PARK [...] | | | LABORATORY | | | GHANAIAN | | | SERVICES, | | | [...] | + + + + + | [facility] | [address] | [place] [address] | | | SERVICES, SCOOBY | [address] | | | + + + + + X-RAY PORTABLE CHEST 1 VIEW (07/30/2016 10:19 PM PST) + + + + + + | Component | Value | Ref Range | Performed | Pathologist | | | | | At | Signature | + + + + + + | X-RAY | EXAM: [place] CHEST 1 VIEW | | | | [...] | + + + + + | [facility] | [address] | [place] [address] | | | SERVICES, SCOOBY | ALVA [...] Performed At | + + + | [facility] | [facility] DEPT OF | | [facility] Adult Echocardiography | CARDIOLOGY | | Laboratory [facility] | | | [place] [address] Pt Name: | | | MEGGAN OTERO Study Date/Time 07/30/2016 / 4:57:27 | | | PMMRN: [id number] Most recent | | | prior: -Acc #: [id number] No. previous echos: | | | 0DOB: 1995 20 years Heart Rate: 108 | | | bpmHeight: 70.0 in Blood Pressure: | | | 128/68 mm/HgWeight: 217.0 lb | | | Gender: FBSA: 2.16 | | | m2 Order ID: [id number] | | | Physician Vice President: Leo RICHARD Referring Provider: Lashon Farias | [...] | | | Report electronically signed by: [id number] Deepti Cortes MD | | | (07/31/2016, 11:59:20 AM)REPORT EAII=[id number] HOSP=PO REGION=A0 | | | Final | | |REPORT WVXL=[id number] HOSP=PO REGION=A0 | | | | | | | | | | | | Final | | + + + + + | Procedure Note | + + | Interface, Cardiology Results - 07/31/2016 11:59 AM [facility] Pin digital | | [facility] Echocardiography Laboratory [facility] | | [place], [place] [address] Pt Name: MEGGAN SANCHEZ | | MARY Study Date/Time 07/30/2016 / 4:57:27 PMMRN: [id number] Most | | recent prior: -Acc #: [id number] No. previous echos: 0DOB: 1995 20 | | years Heart Rate: 108 bpmHeight: 70.0 in Blood Pressure: 128/68 | | mm/HgWeight: 217.0 lb Gender: FBSA: 2.16 m2 Order | | ID: [id number] Physician Vice President: Leo Polanco [facility] SERVICE UNITReferring Provider: Lashon Farias | | BuralisonPatient Location: [...] values Report | | electronically signed by: [id number] Deepti Cortes MD (07/31/2016, 11:59:20 AM)REPORT | | WSVX=[id number] HOSP= REGION=A0 Final | |Aortic Valve: The [...] | | | |Report electronically signed by: [id number] Deepti Cortes MD (07/31/2016, 11:59:20 AM) | |REPORT KGOX=[id number] HOSP=PO REGION=A0 | | | | | | | | Final | + + + + + + + | Performing | Address | City/State/Zipcode | Phone Number | | Organization | | | | + + + + + | [facility] | [address] | [place], [place] | | | CARDIOLOGY | [address] | [address] | | + + + + + [...] | + + + + + | [facility] | [address] [facility] | [place] [address] | | | SERVICES, SCOOBY | [address] [...] [facility] | [address] | [place], [place] | | | [facility] | [address] | [address] | | | TESTS | | | [...] + | [facility] - | [address] | [place] [address] | | | [place] | | | | + + + [...] + | [facility] - | [address] | [place] [address] | | | [place] | | | | + + + [...] + + + + | PRODUCT | [id number] | | [facility] | | | UNIT [...] + + + + | EXPIRATION | [id number] | | [facility] | | | DATE [...] + + + + | BLOOD | [id number] | | [facility] | | | PRODUCT [...] [facility] | [address] | [place] [address] | | | SERVICES, | [address] [...] [facility] | [address] | [place] [address] | | | SERVICES, CORE | PARK [...] | [facility] | [address] | [place] [address] | | | SERVICES, CORE | ALVA [...] | + + + + + | [facility] | [address] | [place] [address] | | | SERVICES, | [address] [...] [facility] | [address] | [place] [address] | | | SERVICES, | [address] [...] + + + + | PRODUCT | [id number] | | [facility] | | | UNIT [...] + + + + | EXPIRATION | [id number] | | [facility] | | | DATE [...] + + + + | BLOOD | [id number] | | [facility] | | | PRODUCT [...] [facility] | [address] | [place] [address] | | | SERVICES, | [address] [...] [facility] | [address] | [place] [address] | | | SERVICES, CORE | P[address] [...] [facility] | [address] | [place] [address] | | | SCOOBY PÉREZ | P[address] [...] + | [facility] | [address] [facility] | [place] [address] | | | SERVICES, CORE | ALVA [...] | | | LABORATORY | | | GHANAIAN | | | SERVICES, | | | [...] | + + + + + | [facility] | [address] | [place] [address] | | | ELISA, SCOOBY | ALVA [...] + + + | X-RAY | EXAM: WV CHEST 1 VIEW | | | | [...] | | + +---------+ + + | [facility] | | | | | [...] + | [facility] | [address] | [place] [address] | | | SERVICES, CORE | ALVA [...] + + + + | PRODUCT | [id number] | | [facility] | | | UNIT [...] + + + + | EXPIRATION | [id number] | | [facility] | | | DATE [...] + + + + | BLOOD | [id number] | | [facility] | | | PRODUCT [...] | [facility] | [address] | [place] [address] | | | SERVICES, | [address] [...] + + + + | PRODUCT | [id number] | | [facility] | | | UNIT [...] + + + + | EXPIRATION | [id number] | | [facility] | | | DATE [...] + + + + | BLOOD | [id number] | | [facility] | | | PRODUCT [...] | + + + + + | [facility] | [address] | [place] [address] | | | SERVICES, | [address] [...] + | [facility] - | [address] | [place] [address] | | | [place] | | | | + + + [...] | + + + + + | [facility] | [address] | [place] [address] | | | SCOOBY PÉREZ | ALVA [...] [facility] | [address] | [place] [address] | | | SERVICES, CORE | PARK [...] | [facility] | [address] | [place] [address] | | | SERVICES, CORE | ALVA [...] | | | | (A) | | [facility] | | + + + + + + + + | Specimen | + + | Blood - Portacath | + + + + + | Narrative | Performed At | + + + | Culture Report: Methicillin Resistant Staphylococcus aureus | [facility] - | | Presumptive identification Refer to culture collected 07/28/16 at | [facility] - | | 4:20 pm for complete identification and susceptibilities Growth in | [place] | | Aerobic bottle Growth in Anaerobic bottle | | + + + + + + + + | Performing | Address | City/State/Zipcode | Phone Number | | Organization | | | | + + + + + | [facility] - | [address] | [place] [address] | | | [place] | | | | + + + [...] | [facility] | [address] | [place] [address] | | | SERVICES, CORE | ALVA [...] + | [facility] - | [address] | [place] [address] | | | [place] | | | | + + + [...] | + + + + + | [facility] | [address] [facility] | [place] [address] | | | SCOOBY PÉREZ | ALVA [...] + + + + | PRODUCT | [id number] | | [facility] | | | UNIT [...] + + + + | EXPIRATION | [id number] | | [facility] | | | DATE [...] + + + + | BLOOD | [id number] | | [facility] | | | PRODUCT [...] [facility] | [address] | [place] [address] | | | SERVICES, | [address] [...] DEPT OF | [address] | [place], [place] | | | CARDIOLOGY | [address] | [address] | | + + + + + [...] [facility] | [address] | [place] [address] | | | SCOOBY PÉREZ | ALVA [...] + + + + | PRODUCT | [id number] | | [facility] | | | UNIT [...] + + + + | EXPIRATION | [id number] | | [facility] | | | DATE [...] + + + + | BLOOD | [id number] | | [facility] | | | PRODUCT [...] [facility] | [address] | [place] [address] | | | SERVICES, | [address] [...] [facility] | [address] | [place] [address] | | | SCOOBY PÉREZ | ALVA [...] [facility] | [address] | [place] [address] | | | SERVICES, CORE | PARK [...] | + + + + + | [facility] | [address] | [place] [address] | | | SERVICES, CORE | ALVA [...] + | [facility] | [address] | [place] [address] | | | SERVICES, CORE | ALVA [...] | | | LABORATORY | | | GHANAIAN | | | SERVICES, | | | [...] + | [facility] | [address] [facility] | [place] [address] | | | ELISA, SCOOBY | ALVA [...] | [facility] | [address] | [place] [address] | | | SERVICES, SCOOBY | ALVA [...] + | [facility] - | [address] | [place] [address] | | | [place] | | | [...] | | | | | | [place], [facility],[place] [address] | | | | | | [phone]. | | | | | | [place] [...] [facility] | [address] | [place], [place] | | | UN[facility] P[facility] - INTFC | | [address] | | + + + + + [...] | | + +---------+ + + | [facility] | | | | | [...] + | [facility] - | [address] | [place] [address] | | | [place] | | | [...] [facility] | [address] | [place] [address] | | | SERVICES, CORE | PARK [...] + | [facility] | [address] | [place] [address] | | | SERVICES, CORE | ALVA [...] | [facility] | [address] | [place] [address] | | | SERVICES, CORE | ALVA [...] + | [facility] - | [address] | [place] [address] | | | [place] | | | [...] | + + + + + | [facility] | [address] | [place] [address] | | | SERVICES, CORE | ALVA [...] + | [facility] - | [address] | [place] [address] | | | [place] | | | | + + + [...] | [facility] | [address] | [place] [address] | | | SERVICES, CORE | ALVA [...] at 16:20 for complete identification and | [facility] | | susceptibilities Growth in Aerobic bottle [...] + | [facility] - | [address] | [place] [address] | | | [place] | | | [...] | + + + + + | [facility] | [address] [facility] | [place] [address] | | | SCOOBY PÉREZ | ALVA [...] + + + + | PRODUCT | [id number] | | [facility] | | | UNIT [...] + + + + | EXPIRATION | [id number] | | [facility] | | | DATE [...] + + + + | BLOOD | [id number] | | [facility] | | | PRODUCT [...] [facility] | [address] | [place] [address] | | | SERVICES, | [address] [...] + | [facility] | [address] | [place] [address] | | | SERVICES, CORE | ALVA [...] [facility] | [address] | [place] [address] | | | SERVICES, CORE | [address] [...] [facility] | [address] | [place] [address] | | | SERVICES, CORE | [address] [...] | | | LABORATORY | | | GHANAIAN | | | SERVICES, | | | [...] [facility] | [address] | [place] [address] | | | SERVICES, CORE | ALVA [...] + + + + | PRODUCT | [id number] | | [facility] | | | UNIT [...] + + + + | EXPIRATION | [id number] | | [facility] | | | DATE [...] + + + + | BLOOD | [id number] | | [facility] | | | PRODUCT [...] [facility] | [address] | [place] [address] | | | SERVICES, | [address] [...] + + + + | PRODUCT | [id number] | | [facility] | | | UNIT [...] + + + + | EXPIRATION | [id number] | | [facility] | | | DATE [...] + + + + | BLOOD | [id number] | | [facility] | | | PRODUCT [...] [facility] | [address] | [place] [address] | | | SERVICES, | [address] [...] [facility] | [address] | [place] [address] | | | SERVICES, CORE | [address] [...] [facility] | [address] | [place] [address] | | | SERVICES, SCOOBY | ALVA [...] + | [facility] | [address] [facility] | [place] [address] | | | ELISA, SCOOBY | ALVA [...] | | | LABORATORY | | | GHANAIAN | | | SERVICES, | | | [...] | + + + + + | [facility] | [address] [facility] | [place] [address] | | | SCOOBY PÉREZ | ALVA [...] | [facility] | [address] | [place] [address] | | | SERVICES, CORE | [address] [...] [facility] | [address] | [place] [address] | | | SERVICES, CORE | ALVA [...] | + + + + + | [facility] | [address] | [place] [address] | | | SERVICES, CORE | [address] | | | + + + + + MAGNESIUM, PLASMA (07/25/2016 11:17 PM PST) + +-------+ + + + | Component | Value | Ref Range | Performed | Pathologist | | | | | At | Signature | + +-------+ + + + | MAGNESIUM,P | 2.1 | 1.8 - 2.5 mg/dL | [facility] | | | LASMA | | | [...] + + | [facility] | [address] [facility] | [place] [address] | | | SERVICES, CORE | ALVA [...] | | | LABORATORY | | | GHANAIAN | | | SERVICES, | | | [...] [facility] | [address] | [place] [address] | | | SERVICES, CORE | [address] [...] [facility] | [address] | [place] [address] | | | SCOOBY PÉREZ | ALVA [...] + | [facility] - | [address] | [place] [address] | | | [place] | | | [...] [place] | | | | | | [place], [facility],[place] [address] | | | | | | [phone]. | | | | | | [place] [...] [facility] | [address] | [place], [place] | | | UN[place] [facility] INT[place] | | [address] | | + + + + + [...] | + + + + + | [facility] | [address] | [place] [address] | | | SCOOBY PÉREZ | ALVA [...] + + + + | PRODUCT | [id number] | | [facility] | | | UNIT [...] + + + + | EXPIRATION | [id number] | | [facility] | | | DATE [...] + + + + | BLOOD | [id number] | | [facility] | | | PRODUCT [...] [facility] | [address] | [place] [address] | | | SERVICES, | [address] [...] [facility] | [address] | [place] [address] | | | SERVICES, | [address] [...] WORKMAN | [address] | [place] [address] | | | SERVICES, | [address] [...] | [facility] | [address] | [place] [address] | | | SERVICES, CORE | ALVA [...] [facility] | [address] | [place] [address] | | | SERVICES, CORE | ALVA [...] [facility] | [address] | [place] [address] | | | SERVICES, CORE | [address] [...] | | | LABORATORY | | | GHANAIAN | | | SERVICES, | | | [...] [facility] | [address] | [place] [address] | | | SERVICES, CORE | [address] [...] | + + + + + | [facility] | [address] | [place] [address] | | | SERVICES, CORE | [address] | | | + + + + + PHOSPHORUS, PLASMA (07/24/2016 1:45 AM PST) + +-------+ + + + | Component | Value | Ref Range | Performed | Pathologist | | | | | At | Signature | + +-------+ + + + | PHOSPHORUS, | 2.8 | 2.4 - 4.7 mg/dL | [facility] | | | PLASMA | | | [...] [facility] | [address] | [place] [address] | | | SERVICES, CORE | ALVA [...] + | [facility] | [address] [facility] | [place] [address] | | | SERVICES, SCOOBY | ALVA [...] | | | LABORATORY | | | GHANAIAN | | | SERVICES, | | | [...] + + | [facility] | [address] | [place] [address] | | | SERVICES, CORE | ALVA [...] [facility] | [address] | [place] [address] | | | SERVICES, CORE | [address] [...] [facility] | [address] | [place] [address] | | | SERVICES, CORE | PARK [...] | + + + + + | [facility] | [address] | [place] [address] | | | SERVICES, CORE | ALVA [...] + + | [facility] | [address] [facility] | [place] [address] | | | SERVICES, CORE | [address] [...] [facility] | [address] | [place] [address] | | | SCOOBY PÉREZ | ALVA [...] | + + + + + | [facility] | [address] | [place] [address] | | | SERVICES, CORE | PARK [...] + | [facility] | [address] [facility] | [place] [address] | | | SERVICES, CORE | ALVA [...] | | | LABORATORY | | | GHANAIAN | | | SERVICES, | | | [...] + | [facility] | [address] | [place] [address] | | | SERVICES, CORE | [address] [...] [facility] | [address] | [place] [address] | | | SCOOBY PÉREZ | ALVA [...] | + + + + + | [facility] | [address] | [place] [address] | | | SERVICES, CORE | ALVA [...] [facility] | [address] | [place] [address] | | | SERVICES, CORE | P[address] [...] | [facility] | [address] | [place] [address] | | | SERVICES, CORE | [address] | | | + + + + + MAGNESIUM, PLASMA (07/21/2016 11:14 PM PST) + +-------+ + + + | Component | Value | Ref Range | Performed | Pathologist | | | | | At | Signature | + +-------+ + + + | MAGNESIUM,P | 2.5 | 1.8 - 2.5 mg/dL | [facility] | | | [facility] | | | [...] | + + + + + | [facility] | [address] | [place] [address] | | | SERVICES, CORE | [address] [...] | | | LABORATORY | | | GHANAIAN | | | SERVICES, | | | [...] | + + + + + | [facility] | [address] | [place] [address] | | | SCOOBY PÉREZ | ALVA [...] | + + + + + | [facility] | [address] | [place] [address] | | | SERVICES, CORE | ALVA [...] | | | | | | [place], [facility] [address] | | | | | | [phone]. | | | | | | [facility], [place], | | | | | [...] [facility] | [address] | [place], [place] | | | [place] [facility] INT[place] | | [address] | | + + + + + [...] + | [facility] - | [address] | [place] [address] | | | [place] | | | | + + + + + STEM CELL TRANSPLANT, AUTOLOGOUS (07/21/2016 5:29 PM PST) + + + | Narrative | Performed At | + + + | Emery Chilel MD 07/21/2016 5:29 PM Hematopoietic | | | Progenitor Cell Infusion Record Name: Meggan Otero MRN: | | | [id number] Indication for Procedure: Reconstitution of hematopoiesis | [...] processing: Yes Bag identification was crosschecked per [facility] | | | policy: Yes Product number [...] call the HCP Lab | | | [phone] to initiate the [facility] Adverse Reaction Report process. | | | Mild nausea and flushing during Emery Chilel MD | | + + + PROCEDURE NOTE (07/21/2016 12:51 PM PST) + + + | Narrative | Performed At | + + + | Allyson Waite 07/21/2016 12:51 PM Cell Processing Name: | | | Meggan Otero Donation Identification Number: | | | [id number] ABO/Rh Recipient:A pos Antibody Screen | | [...] [facility] | [address] | [place] [address] | | | SERVICES, CORE | [address] | | | + + + + + PRODUCT CELL COUNT (07/21/2016 10:05 AM PST) + + + + + + | Component | Value | Ref Range | Performed | Pathologist | | | | | At | Signature | + + + + + + | PRODUCT | [id number] | | [facility] | | | IDENTIFIER [...] [facility] | [address] | [place] [address] | | | ELISA, SCOOBY | ALVA [...] HEM CELL | [address] | [place], [place] | | | PROCESSING LAB | [address] | [address] | | + + + + + AUTO HPCA THAW (07/21/2016 10:04 AM PST) + + + + + + | Component | Value | Ref Range | Performed | Pathologist | | | | | At | Signature | + + + + + + | PRODUCT | Auto HPC, Apheresis | | [facility] | | | TYPE | [id number] | | CELL | | | | [...] HEM CELL | [address] | [place], [place] | | | PROCESSING LAB | [address] | [address] | | + + + + + [...] DEPT OF | [address] | [place], [place] | | | CARDIOLOGY | [facility] | [address] | | + + + + + [...] [facility] | [address] | [place] [address] | | | SERVICES, | [address] [...] [facility] | [address] | [place] [address] | | | SERVICES, | [address] [...] + + + + | PRODUCT | [id number] | | [facility] | | | UNIT [...] + + + + | EXPIRATION | [id number] | | [facility] | | | DATE [...] + + + + | BLOOD | [id number] | | [facility] | | | PRODUCT [...] [facility] | [address] | [place] [address] | | | SERVICES, | [address] [...] [facility] | [address] | [place] [address] | | | SERVICES, CORE | [address] | | | + + + + + PHOSPHORUS, PLASMA (07/20/2016 11:09 PM PST) + +---------+ + + + | Component | Value | Ref Range | Performed | Pathologist | | | | | At | Signature | + +---------+ + + + | PHOSPHORUS, | 1.7 (L) | 2.4 - 4.7 mg/dL | [facility] | | | PLASMA | | | [...] [facility] | [address] | [place] [address] | | | SERVICES, CORE | PARK [...] + | [facility] | [address] [facility] | [place] [address] | | | SERVICES, CORE | ALVA [...] | | | LABORATORY | | | GHANAIAN | | | SERVICES, | | | [...] + | [facility] | [address] [facility] | [place] [address] | | | SCOOBY PÉREZ | ALVA [...] | [facility] | [address] | [place] [address] | | | SCOOBY PÉREZ | ALVA [...] | + + + + + | [facility] | [address] | [place] [address] | | | SERVICES, CORE | P[address] [...] + | [facility] | [address] | [place] [address] | | | SERVICES, CORE | ALVA [...] | | | LABORATORY | | | GHANAIAN | | | SERVICES, | | | [...] | + + + + + | [facility] | [address] | [place] [address] | | | SERVICES, CORE | PARK [...] + | [facility] | [address] | [place] [address] | | | SERVICES, CORE | ALVA [...] [facility] | [address] | [place] [address] | | | SERVICES, CORE | ALVA [...] | [facility] | [address] | [place] [address] | | | SERVICES, CORE | ALVA [...] - | | | | | | [place] | | + + + + + + + + | Specimen | + + | Blood | + + + + + + + | Performing | Address | City/State/Zipcode | Phone Number | | Organization | | | | + + + + + | [facility] - | [address] | [place] [address] | | | [place] | | | | + + + [...] [facility] | | | | | | [facility],[address] | | | | | | [place], [place] [address] | | | | | | [phone]. | | | | | | [place] [...] [facility] | [address] | [place], [place] | | | [place] | | [address] | | + + + + + [...] + + | [facility] | [address] | [place] [address] | | | SERVICES, CORE | [address] [...] [facility] | [address] | [place] [address] | | | ELISA, SCOOBY | ALVA [...] [facility] | [address] | [place] [address] | | | SERVICES, CORE | ALVA [...] | | | LABORATORY | | | GHANAIAN | | | SERVICES, | | | [...] the MDRD equation recommended by the | [facility] | | National Kidney Disease Education Program. [...] | + + + + + | [facility] | [address] [facility] | [place] [address] | | | SERVICES, CORE | [address]ARK [...] [facility] | [address] | [place] [address] | | | SERVICES, CORE | PARK [...] [facility] | [address] | [place] [address] | | | SERVICES, CORE | PARK [...] + | [facility] | [address] [facility] | [place] [address] | | | SERVICES, CORE | [address] [...] | | | LABORATORY | | | GHANAIAN | | | SERVICES, | | | [...] | + + + + + | [facility] | [address] [facility] | [place] [address] | | | SERVICES, SCOOBY | ALVA [...] | + + + + + | [facility] | [address] | [place] [address] | | | SERVICES, CORE | ALVA [...] | + + + + + | [facility] | [address] | [place] [address] | | | SERVICES, CORE | PARK [...] + | [facility] | [address] [facility] | [place] [address] | | | SERVICES, CORE | ALVA [...] | | | LABORATORY | | | GHANAIAN | | | SERVICES, | | | [...] | [facility] | [address] | [place] [address] | | | SERVICES, CORE | ALVA [...] | | + +---------+ + + | [facility] DEPARTMENT OF | | | | | [...] reference ranges effective June 30, 2016. | [facility] | | Immature Granulocytes (IG) include metamyelocytes, [...] | + + + + + | [facility] | [address] | [place] [address] | | | SERVICES, CORE | ALVA [...] | + + + + + | [facility] | [address] | [place] [address] | | | ELISA, SCOOBY | [address] | | | + + + + + MAGNESIUM, PLASMA (07/16/2016 1:50 AM PST) + +-------+ + + + | Component | Value | Ref Range | Performed | Pathologist | | | | | At | Signature | + +-------+ + + + | MAGNESIUM,P | 1.8 | 1.8 - 2.5 mg/dL | PAFRANKLYN | | | [place] | | | [...] + | [facility] | [address] [facility] | [place] [address] | | | SERVICES, CORE | ALVA [...] | | | LABORATORY | | | GHANAIAN | | | SERVICES, | | | [...] + | [facility] | [address] | [place] [address] | | | SERVICES, CORE | PARK [...] | + + + + + | [facility] | [address] | [place] [address] | | | SCOOBY PÉREZ | ALVA [...] reference ranges effective June 30, 2016. | [facility] | | Immature Granulocytes (IG) include metamyelocytes, [...] | [facility] | [address] | [place] [address] | | | SERVICES, CORE | ALVA [...] | + + + + + | [facility] - | [address] | [place] [address] | | | [place] | | | | + + + [...] | | | | | | Cory, [place] [address] | | | | | | [phone]. | | | | | | jeimy, [...] | [facility] | | [id number] | | + + + + + [...] LABORATORY | [address] | [place] [address] | | | SERVICES, | [address] [...] | + + + + + | [facility] | [address] | [place] [address] | | | SERVICES, | [address] [...] + + | [facility] | [address] | [place] [address] | | | SERVICES, CORE | ALVA [...] [facility] | [address] | [place] [address] | | | SERVICES, CORE | PARK [...] | + + + + + | [facility] | [address] | [place] [address] | | | SERVICES, CORE | ALVA [...] [facility] | [address] | [place] [address] | | | SERVICES, CORE | ALVA [...] | + + + + + | [facility] | [address] | [place] [address] | | | SERVICES, CORE | PARK [...] + | [facility] [facility] | [address] | [place] [address] | | | SERVICES, CORE | ALVA [...] | | | LABORATORY | | | GHANAIAN | | | SERVICES, | | | [...] | + + + + + | [facility] [employer] | [address] | [place] [address] | | | SERVICES, CORE | ALVA [...] | 15 mL | | | | ptdglikrfkLXPZU-uvgpdwbrq-KYGQXW | | 16 9:57 | | | [...] at 1959, alternate to | | | byhvohkfnugvadj-VO-rn first line | | | is rlsvtguueqp-ZQ-dh related to | | | agitation, restlessness, [...] | | | DAILY, First dose on [facility] 08/05/16 | | AM PST | [...] mEq, oral, | | | NEEDED, Starting [facility] 07/15/16 at | | | 1520, [...]
--- OUTSIDE RECORDS SUMMARY | ~2019-01-06 | XMS | Encounter Summary ---
Demographics + + + | Address | NEED ADDRESS | | | [place] [address] | + + + | Home Phone | | + + + | Preferred Language | Unknown | + + + | Marital Status | Single | + + + | Synagogue Affiliation | Unknown | + + + | Race | Unknown | + + + | Ethnic Group | Unknown | + + + Author + + + | Author | [facility] | | | and [place] | + + + | Organization | [facility] | | | and [place] | + + + | Address | Unknown | + + + | Phone | Unavailable | + + + Support + + + + + | Name | Relationship | Address | Phone | + + + + + | Qamar Wynne | ECON | [address] | | | | | [place] | | | | | [address] | | + + + + + | Merlyn Otero | ECON | [address] [facility] [address] | | | | | [place] | | | | | [address] | | + + + + + Care Team Providers + +------+ + | Care Forging Die Sinker Name | Role | Phone | + [...] + + | 10/17/ | Refill | [facility] | Lida, | Medication Refill | | 2019 | | MED CTR MEDICAL | Aashish Carpenter MD [address] | | | | | ONCOLOGY CLIN[facility] [address] | [facility] | | | | | [address] | [place] [address] | | | | | [place] [address] | [phone] | | | | | [phone] | | | +--------+--------+ + + + [...] | | | | | [place] [address] | | | | | | [phone] | | | | | | | | +--------+ + + + + | 01/22/ | Appointment | Oncology | Lida, | | | 2018 | | | MD Farida Camacho | | | | | | [address] | | | | | | [place] [address] | | | | | | [phone] | | | | | | | | +--------+ + + + + documented as of this encounter Visit Diagnoses Not on filedocumented in this encounter"
--- OUTSIDE RECORDS SUMMARY | ~2019-01-06 | XMS | Encounter Summary ---
Demographics + + + | Address | [address] | | | [place] [address] | + + + | Home Phone | | + + + | Preferred Language | Unknown | + + + | Marital Status | | + + + | Orthodox Affiliation | NON | + + [...] Team Providers + +------+ + | Care Oracle Erp Developer Name | Role | Phone | + +------+ + | Aashish Hilton MD | PCP | | + +------+ + Reason for Visit Intake Referral (Urgent) +--------+--------+ + + + [...] MD Jim | | | | | Soliris | MD Jim | [address] | | | | | | [address] | [address] | | | | | | Ave | [place], [place] | | | | | | [place], [place] | [address] | | | | | | [address] | Phone: | | | | | | Phone: | [phone] | | | | | | [phone] | Fax: | | | | | | Fax: | [phone] | | | | | | [phone] | | +--------+--------+ + + + + Encounter Details +--------+---------+ + + + | Date | Type | Department | Care Team | Description | +--------+---------+ + + + | 06/30/ | Office | Center for | Quirino Moreno I, | Nodular sclerosis | | 2016 | Visit | Hematologic | ,PhD [address] [facility] | Hodgkin lymphoma of | | | | Malignancies at | [address] | lymph nodes of | | | | [facility] | [place], [place] | multiple regions | | | | [address] | [address] | (HCC) (Primary Dx); | | | | [address] | [phone] | HUS (hemolytic | | | | Mailcode: UHN73A | | uremic syndrome), | | | | [facility] | | atypical (HCC); | | | | [place], [place] | | Obesity, Class I, | | | | [address] | | BMI 30-34.9 | | | | [phone] | | | +--------+---------+ + + + [...] + + + | Blood Pressure | 133/94 | 06/30/2016 12:14 PM | | | | | PST | | + + + + + | Pulse | 113 | 06/30/2016 12:14 PM | | | | | PST | | + + + + + | Temperature | 36.9 C (98.4 F) | 06/30/2016 12:14 PM | | | | | PST | | + + + + + | Respiratory Rate | 16 | 06/30/2016 12:14 PM | | | | | PST | | + + + + + | Oxygen Saturation | 100% | 06/30/2016 12:14 PM | | | | | PST | | + + + + + | Inhaled Oxygen | - | - | | | Concentration | | | | + + + + + | Weight | 98.9 kg (218 lb 0.6 | 06/30/2016 12:14 PM | | | | oz) | PST | | + + + + + | Height | - | - | | + + + + + | Body Mass Index | 31.28 | 04/07/2016 2:00 PM | | | | | PDT | | + + + + + documented in this encounter Patient Instructions Patient Instructions Maura Lai RN - 06/30/2016 12:25 PM PSTWe are planning to proc eed with your autologous transplant. If you have any questions with your mobilization, adela vega contact Jeanette at [phone] July 02 through Monday, July 04, 2016 Inject 3- 300mcg syringes (total daily dose 900mcg) You will get your neupogen/zarxio injections at: Cancer center in [place], [place]. You will receive these shots 3 days in a row. Inject all the syringes at the same time each morning in fat tissue (anywhere you can pinch an inch). Take the syringes out of the refrigerator about 20 minutes before you give the i njection so they warm to room temp. Injection given while cold or injected too quickly will sting more. Do NOT use a heating pad, microwave or hot water to warm the syringes. Remember to clean the site with an alcohol swab, let it air dry and then inject the syringe . Separate the injections by at least an inch and rotate the sites daily. Bone pain is a possible cumulative side effect of neupogen. If you experience bone pain an d it interferes with your sleep or your daily activity then you should take additional pain medication discussed by your MD. Over the counter Claritin can also assist with this type o f discomfort. ++Do not eat or drink after Midnight the evening prior in anticipation of line placement. Hold lovenox and apixaban 24 hours prior to line placement on 07/05/16. Tuesday, July 05, 2016 7:30AM Lab and zarxio injection in the [facility] clinic --When the circulating stem cell count ( CD34) has resulted, you will be contacted with the instructions for the rest of the day (usu ally takes about 2 hours). The lab result will tell us if you are ready to collect, if you need the booster shot OR if you need additional neupogen before you are ready to collect. You may need to return to the [facility] clinic at 5:30 pm for the Plerixafor (booster shot) if needed Tuesday 8:00am Stem cell collection (continue Tuesday and if needed) 14th [facility]. July Admit to 14K Call Bed control at [phone] morning of 07/15 for admission appointment time. TuesdayJune 21 is transplant day! If you develop any symptoms or have any medical questions, please call the Triage Nurse at [phone] or [phone] (Tuesday - Tuesday 8:30-4:30). During after hours, ple ase call [phone] and ask to have the BMT Person College Physics Instructor paged. documented in this encounter Progress Notes Quirino Moreno MD,PhD - 06/30/2016 12:25 PM PSTFormatting of this note might be different fr om the original. [facility] Center for Hematologic Malignancies Assessment & Plan: 20 y.o. 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 Would also plan on brentuximab maintenance post-BMT which improves 2 yr PFS to ~60% in high risk pts post-auto. She meets high risk criteria due to early relapse. Discussed rationale, logistics, and risks of autoBMT - including typical toxicities, centra l line requirement, long hospitalization, caregiver requirement, close follow-up, staying in area, prolonged recovery, and risks of life threatening complications and treatment related mortality. Also reviewed stem cell mobilization. Following a PARQ discussion, she gave written informed consent for autoBMT and high dose BE AM Following PARQ discussion, she also gave written informed consent for stem cell mobilizatio n. Also [facility]. Atypical HUS - genetic studies PENDING per benign heme - continue ecalizumab through BMT - consider taper ecalizumab post-BMT, depending on genetic testing DVTs - apixaban per benign heme - HOLD for line placement - will switch to LMWH during BMT admit ID - note hx C diff Pulmonary - low DLCO, but not adjusted for anemia - doubt clinical significance since asymptomatic Comorbidities - atypical HUS - DVT - hx C diff - DLCO low, but not adjusted - obesity, BMI 30-34 - risk early TRM <5% Social - caregiver= - plan to stay locally post-discharge Plan - start HD GCSF this wkend - place [facility] for apheresis/BMT - collect next wk # admit for autoBMT following wk Quirino Moreno MD [email or web address] Pediatric Heme/Onc: Anh Moreland MD ([place]) Nephrology: Raghav Miller MD ([place]) 04/2015 presented with flank pain CT C/A/P: 11 cm anterior mediastinal mass, pleural effusion & L supraclav adenopathy Needle bx: classical hodgkins, nodular sclerosing type Thoracentesis: reactive/benign BMBx: neg PET: bulky mediastinal mass, SUV 16; bilateral neck SUV 15; also R>L pleural effusion 05/10/15 began ABVE-PC (as per pediatric [id number]) - Dox 30 mg/m2 d1,2 - Bleo [...] L neck: classical Hodgkins Above therapy in [place] -> moved to [place] Continued on ecalizumab per benign heme ([place]anda) - genetic testing for aHUS PENDING GDP x3 - 3A start 06/07 CR by PET Some nausea with chemo Otherwise tolerated well Gained weight. No numbness/tingling or hearing loss No cough or dyspnea No fevers or infxns No night sweats. Complete ROS otherwise negative Central Access: PORT Allergies Allergen Reactions Promethazine Pruritus, Rash and Dystonia Sulfacetamide Sodium Hives Current Outpatient Prescriptions Medication Sig apixaban 5 mg oral tablet Take 1 tablet by mouth two times daily. Indications: PREVENTI ON OF DEEP VEIN THROMBOSIS RECURRENCE ECULIZUMAB (SOLIRIS IV) Inject into the vein (IV). escitalopram oxalate (LEXAPRO) 10 mg oral tablet Take by mouth. lidocaine-prilocaine 2.5-2.5 % topical cream Apply to affected area as needed. Apply a thick layer to intact skin and cover with an occlusive dressing. Past Medical History Diagnosis Date Anxiety C. 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 No cig/drugs Physical Exam: PS ECOG 1 BP 133/94 | Pulse 113 | Temp (Src) 36.9 C (98.4 F) (Oral) | RR 16 | Wt 98.9 kg (218 lb 0.6 oz) | SpO2 100% | BMI 31.28 kg/(m^2) Constitutional: well appearing Eyes: anicteric ENT: oropharynx clear Lungs: clear to auscultation Cardiac: regular rate and rhythmn Abdomen: soft, nontender, no mass Musculoskeletal: no edema Skin: no bruising Neuro: motor nonfocal Nodes: NO palpable adenopathy Recent Labs 04/07/16 1429 06/17/16 0852 06/30/16 1305 WBC 6.8 3.80* 4.4* HB 12.0 10.6* 10.9* HCT 36.5 31.4* 32.7* PLT 285 144* 414* NEUTROPHILCO 5.0 3.35 2.8 LYMPHSAB 1.1 -- 0.7* Recent Labs 06/17/16 0852 06/30/16 1209 06/30/16 1307 NA 139 -- 136 K 4.2 -- 4.1 BICARB 23 -- 25 BUN 17 -- 12 CR 0.69 -- 1.0 GLU 74 -- 88 CA 8.1* -- 9.2 AP 101* -- 86* ALT 24 -- <20 AST 13 -- 34 TBILI 0.5 -- 0.5 ALB 3.5 -- 3.6 LDTOTAL 261* 270* -- ESR -- 33* -- Bone marrow, core biopsy 06/21/16 -Normocellular bone marrow without evidence of Hodgkin lymphoma. -Relative erythroid hyperplasia and mildly increased megakaryocytes. -Increased storage iron. Left cervical lymph node, biopsy ([id number], 03/16/2016): - Nodular sclerosis, classical Hodgkin's lymphoma [...] diastolic dysfunction. Normal function of all valves. 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
--- OUTSIDE RECORDS SUMMARY | ~2019-01-06 | XMS | Encounter Summary ---
Demographics + + + | Address | [address] | | | [place] [address] | + + + | Home Phone [...] Team Providers + +------+ + | Care Interior Block Wirer Name | Role | Phone | + +------+ + | Aashish Hilton MD | PCP | | + +------+ + Encounter Details +--------+ + + + + | Date | Type | Department | Care Team | Description | +--------+ + + + + | 07/04/ | Results | Registration [id number] | Quirino Moreno I, | | | 2016 | Only | [address] | ,PhD [address] | | | | | [facility] Mailcode: | [address] | | | | | [id number] [place], [place] | [place], [place] | | | | | [address] | [address] | | | | | [phone] | [phone] | | | | | | | [...] | + +--------+ + + + | ONCOLOGY PATHWAYS | Routin | 07/04/2016 | | Results for this | | TREATMENT DECISION | e | | | procedure are in the | | | | | | results section. | + +--------+ + + + documented in this encounter Results ONCOLOGY PATHWAYS TREATMENT DECISION (07/04/2016) + + + + + + | Component | Value | Ref Range | Performed | Pathologist | | | | | At | Signature | + + + + + + | ONCOLOGY | Lymphoma and CLL - No | | VIA | | | PATHWAYS | Medical Intervention - | | ONCOLOGY | | | TREATMENT | Off Treatment. | | PATHWAYS | | | PLAN | | | | | | REGIMEN | | | | | + + + + + + | ONCOLOGY | Lymphoma and CLL - No | | VIA | | | PATHWAYS | Medical Intervention - | | ONCOLOGY | | | TREATMENT | Off Treatment. Patient | | PATHWAYS | | | DECISION | Characteristics:Classic | | | | | DETAILS | Hodgkin Lymphoma, Second | | | | | | Line, Transplant | | | | | | CandidateDisease Type: | | | | | | Classic Hodgkin | | | | | | LymphomaDisease Type: | | | | | | Not ApplicableLine of | | | | | | therapy: Second LineAnn | | | | | | Arbor Stage: IIBPatient | | | | | | Characteristics: | | | | | | Transplant Candidate | | | | + + + + + + + + | Specimen | + + | | + + + +---------+ + + | Performing | Address | City/State/Zipcode | Phone Number | | Organization | | | | + +---------+ + + | [facility] | | | | | [facility] | | | | + +---------+ + + documented in this encounter Visit Diagnoses Not on filedocumented in this encounter"
--- OUTSIDE RECORDS SUMMARY | ~2019-01-06 | XMS | Encounter Summary ---
Demographics + + + | Address | [address] | | | [place] [address] | + + + | Home Phone | | + + + | Preferred Language | Unknown | + + + | Marital Status | | + + + | Mu-Ism Affiliation | NON | + + + | Race | White | + + + | Ethnic Group | Not or | + + + Author + + + | Author | [facility] | + + + | Organization | [facility] | + + + | [...] Team Providers + +------+ + | Care Furniture Salesperson Name | Role | Phone | + [...] Description | +--------+--------+ + + + | 12/22/ | Refill | Hematology/Medical | Fern[place], | Refill Request | | 2017 | | Oncology at [place] | MD Jim [address] | | | | | for Health & Healing | [address] [place], | | | | | [address] | [place] [address] | | | | | Mailcode: [place] | [phone] | | | | | for Health and | | | | | | Healing, [address] | | | | | | [place], [place] | | | | | | [address] | | | | | | [phone] | | | +--------+--------+ + + + [...]
--- OUTSIDE RECORDS SUMMARY | ~2019-01-06 | XMS | Encounter Summary ---
Demographics + + + | Address | [address] | | | [place] [address] | + + + | Home Phone | | + + + | Preferred Language | Unknown | + + + | Marital Status | | + + + | Presybeterian Affiliation | NON | + + + [...] Team Providers + +------+ + | Care Stain Maker Name | Role | Phone | [...] | | | | | | [id number] | | | | | | [facility] | | | | | | [place], [place] | | | | | | [address] | | | | | | [phone] | | | +--------+ + + + [...]
--- OUTSIDE RECORDS SUMMARY | ~2019-01-06 | XMS | Encounter Summary ---
Demographics + + + | Address | [address] | | | [place] [address] | + + + | Home Phone | | + + + | Preferred Language | Unknown | + + + | Marital Status | | + + + | Episcopalian Affiliation | NON | + + + | Race | White | + + + | Ethnic Group | Not or | + + + Author + + + | Author | [facility] | + + + | Organization | [facility] | + + + | [...] Team Providers + +------+ + | Care Noodle Press Operator Name | Role | Phone | [...] [place] | | | | | | [place] | | | | | | [address] | | | | | | [phone] | | | +--------+ + + + [...]
--- OUTSIDE RECORDS SUMMARY | ~2019-01-06 | XMS | Encounter Summary ---
Demographics + + + | Address | [address] | | | [place] [address] | + + + | Home Phone | | + + + | Preferred Language | Unknown | + + + | Marital Status | | + + + | Pentecostal Affiliation | NON | + + + | Race | White | + + + | Ethnic Group | Not or | + + + Author + + + | Author | [facility] | + + + | Organization | [facility] | + + + | [...] Team Providers + +------+ + | Care Air Tucker Name | Role | Phone | + [...] | | 2016 | | Oncology at [place] | MD Jim [address] | | | | | for Health & Healing | [address] [place], | | | | | [address] | [place] [address] | | | | | Mailcode: [place] | [phone] | | | | | for Health and | | | | | | Healing, [address] | | | | | | [place], [place] | | | | | | [address] | | | | | | [phone] | | | +--------+--------+ + + + [...]
--- OUTSIDE RECORDS SUMMARY | ~2019-01-06 | XMS | Encounter Summary ---
Demographics + + + | Address | [address] | | | [place] [address] | + + + | Home Phone | | + + + | Preferred Language | Unknown | + + + | Marital Status | | + + + | Amish Affiliation | NON | + + + | Race | White | + + + | Ethnic Group | Not or | + + + Author + + + | Author | [facility] | + + + | Organization | [facility] | + + + | Address [...] Team Providers + +------+ + | Care Insulation Power Unit Tender Name | Role | Phone | + [...] | | | Staff | Malignancies at [facility] | | (JASMIN Cat) | | | | [address] | | | | | | [facility] | | | | | | Mailcode: [id number] | | | | | | [place] | | | | | | [place], [place] | | | | | | [address] | | | | | | [phone] | | | +--------+ + + + [...] klaudia y Family. Patient encouraged to call personnel and payroll technician provider if she were to get a [...] [facility] | [address] | [place], [place] | | | MERRY SHAH OF CARE | [address] | [address] | | | TESTS | | | [...] + + + | MARICEL KILGORE | [address] | [place], [place] | | | M[address]Y SHAH OF BAILE[address] | [address] | [address] | | | TESTS | | | [...] + + + + | PRODUCT | [id number] | | [facility] | | | UNIT [...] + + + + | EXPIRATION | [id number] | | [facility] | | | DATE [...] + + + + | BLOOD | [id number] | | [facility] | | | PRODUCT [...] | + + + + + | [facility] | [address] | [place] [address] | | | SERVICES, | [address] [...] + + + + | PRODUCT | [id number] | | [facility] | | | UNIT [...] + + + + | EXPIRATION | [id number] | | [facility] | | | DATE [...] + + + + | BLOOD | [id number] | | [facility] | | | PRODUCT [...] [facility] | [address] | [place] [address] | | | SERVICES, | [address] [...] [facility] | [address] | [place], [place] | | | ALYSSA POINT OF CARE | [address] | [address] | | | TESTS | | | [...] [facility] | [address] | [place] [address] | | | SERVICES, CORE | [address] [...] | + + + + + | [facility] | [address] [facility] | [place] [address] | | | SERVICES, CORE | [address] [...] [facility] | [address] | [place] [address] | | | SERVICES, SCOOBY | [address] [...]
--- OUTSIDE RECORDS SUMMARY | ~2019-01-06 | XMS | Encounter Summary ---
Demographics + + + | Address | [address]DRESS | | | [place] [address] | + + + | Home Phone | | + + + | Preferred Language | Unknown | + + + | Marital Status | Single | + + + | Taoist Affiliation | Unknown | + + + | Race | Unknown | + + + | Ethnic Group | Unknown | + + + Author + + + | Author | [facility] | | | and [place] | + + + | Organization | [facility] | | | and [place] | + + + | Address | Unknown | + + + | Phone | Unavailable | + + + Support + + + + + | Name | Relationship | Address | Phone | + + + + + | Qamar Wynne | ECON | [address] | | | | | [place] | | | | | [address] | | + + + + + | Merlyn Otero | ECON | [address] | | | | | [place] | | | | | [address] | | + + + + + Care Team Providers + +------+ + | Care Boiler Repair Supervisor Name | Role | Phone | [...] + + | 12/12/ | Refill | [facility] | Jack Galeano, | Medication Refill | | 2019 | | MED CTR MED[facility] | [address] | | | | | [facility] CL[facility] [address] | [place] | | | | | [address] | [address] | | | | | [place] [address] | [phone] | | | | | [phone] | | | +--------+--------+ + + + [...] | | | | | | [place] [address] | | | | | | [phone] | | | | | | | | +--------+ + + + + | 01/22/ | Appointment | Oncology | Lida, | | | 2018 | | | MD Farida [address] | | | | | | [address] | | | | | | [place] [address] | | | | | | [phone] | | | | | | | | +--------+ + + + + documented as of this encounter Visit Diagnoses + + | Diagnosis | + + | Hodgkin's disease, nodular sclerosis, of intrathoracic lymph nodes (HCC) - Primary | | Hodgkin's disease, nodular sclerosis, of intrathoracic lymph nodes | + + documented in this encounter"
--- OUTSIDE RECORDS SUMMARY | ~2019-01-06 | XMS | Encounter Summary ---
Demographics + + + | Address | [address] | | | [place] [address] | + + + | Home Phone | | + + + | Preferred Language | Unknown | + + + | Marital Status | | + + + | Mandaeism Affiliation | NON | + + + | Race | White | + + + | Ethnic Group | Not or | + + + Author + + + | Author | [facility] | + + + | Organization | [facility] | + + + | [...] | + + +---------+ + | Raffy Oetro | ECON | Unknown | | + + +---------+ + Care Team Providers + +------+ + | Care Store Receiver Name | Role | Phone | + [...] Hematology | Diagnoses | Quirino Moreno | [facility] | | | | Malignancy | Nodular | MD Ronak,PhD | [address] | | | | | sclerosis | [address] | [address] | | | | | Hodgkin | [facility] | [facility] | | | | | lymphoma, | Rd | Mailcode: | | | | | lymph nodes | [place], [place] | [address] | | | | | of multiple | [address] | [place] | | | | | sites | Phone: | [facility] | | | | | | [phone] | [place], [place] | | | | | | Fax: | [address] | | | | | | [phone] | Phone: | | | | | | | [phone] | | | | | | | Fax: | | | | | | | [phone] | +--------+--------+ + + + + Encounter Details +--------+---------+ + + + | Date | Type | Department | Care Team | Description | +--------+---------+ + + + | 08/23/ | Office | Center for | Vanessa Shin, | Nodular sclerosis | | 2017 | Visit | Hematologic | [employer] [address] [facility] | Hodgkin lymphoma of | | | | Malignancies at | [facility] | lymph nodes of | | | | [facility] | [facility] [place] | multiple regions | | | | [address] [facility] | [address] | (HCC) (Primary Dx); | | | | [facility] | [phone] | HUS (hemolytic | | | | Mailcode: [facility] | | uremic syndrome), | | | | [facility] | | atypical (HCC); | | | | [place], [place] | | Autologous bone | | | | [address] | | marrow | | | | [phone] | | transplantation | | | | [...] BMT clinic ) or BMT person on-call ([phone]) for: Any temp > 100.4 Nausea/vomiting unresponsive [...] sun exposure after radiation or chemotherapy. - [place] can be resumed once your ANC is [...] one year anniversary. We will provide your [facility] Oncologist with our recommended schedule of vaccinations Disease Restaging- We recommend disease restaging between days +80 and 100 to establish a n ew post-transplant baseline. This should include CT scans and/or a PET scan based on your p re-transplant staging. We will ask your primary oncologist to perform these studies for you r convenience. - Please schedule a follow up with your [facility] Transplant Physician around day +100 (10/29/16) after your restaging has been completed. We encourage you to contact your [facility] Nurse Coordinator if you have any questions about you r transplant after returning home. Jeanette Lai RN [phone] signed by MORENA John at 08/23/2016 2:57 PM PST documented in this encounter Progress Notes Vanessa Osborne FNP - 08/23/2016 1:45 PM PSTFormatting of this note might be different f rom the original. 08/23/2016 [facility] Physician: Quirino Moreno MD Local Oncologist: Dr. Hilton PCP: Aashish Hilton MD Hematologic Malignancy: Relapsed HL Conditioning regimen: BEAM Date of transplant: 07/21/16 Donor: Autologous Hematologic History: Meggan Otero is a 20 y.o. 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, recently admitted for autoBMT Local oncologist: Aashish Hilton MD ([facility]/[place]) Benign Hematology: Jim Michael MD ([facility]) Pediatric Heme/Onc: Anh Moreland MD ([place]) Nephrology: Raghav Miller MD ([place]) 04/2015 presented with flank pain CT C/A/P: 11 cm anterior mediastinal mass, pleural effusion & L supraclav adenopathy Needle bx: classical hodgkins, nodular sclerosing type Thoracentesis: reactive/benign BMBx: neg PET: bulky mediastinal mass, SUV 16; bilateral neck SUV 15; also R>L pleural effusion 05/10/15 began ABVE-PC (as per pediatric [id number]) via femoral line 05/16/15 presented with sepsis [...] neck: classical Hodgkins Above therapy in [place] -> moved to [place] Continued on ecalizumab per benign heme (Fernanda) [...] if asymptomatic GI: Hx of GERD: 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
--- OUTSIDE RECORDS SUMMARY | ~2019-01-06 | XMS | Encounter Summary ---
Demographics + + + | Address | [address] | | | [place] [address] | + + + | Home Phone | | + + + | Preferred Language | Unknown | + + + | Marital Status | | + + + | Hinduism Affiliation | NON | + + + | Race | White | + + + | Ethnic Group | Not or | + + + Author + + + | Author | [facility] | + + + | Organization | [facility] | + + + | [...] Team Providers + +------+ + | Care Photoengraving Sketch Maker Name | Role | Phone | [...] | | | | Malignancies at | [facility] | | | | | Joanne Herman | [place], [place] | | | | | [address] [facility] | [address] | | | | | [facility] | [phone] | | | | | Mailcode: [id number] | | | | | | Joanne Herman | | | | | | [place], [place] | | | | | | [address] | | | | | | [phone] | | | +--------+ + + + [...]
--- OUTSIDE RECORDS SUMMARY | ~2019-01-06 | XMS | Encounter Summary ---
Demographics + + + | Address | [address] | | | [place] [address] | + + + | Home Phone [...] + + + | Author | [facility] | + + + | Organization | [facility] | + + + | Address [...] Team Providers + +------+ + | Care Shipyard Painter Name | Role | Phone | + [...] | +--------+ + + + + | 07/15/ | Hospital | [place] [address] [address] | Constantin Link I, | | | 2016 - | Encounter | Maikol Calle | ,PhD [address] | | | | [address] Mailcode: | [address] | | | 08/07/ | | KPV14 SARAN | [place], [place] | | | 2015 | | [place], | [address] | | | | | [place] [address] | [phone] | | | | | [phone] | | | | | | | Jey Fu MD | | | | | | [address] | | | | | | [place], | | | | | | [place] [address] | | | | | | [phone] | | | | | | | | | | | | Jessica Mac R, | | | | | | [place] [address] | | | | | | [place], [place] | | | | | | [address] | | | | | | [phone] | | | | | | | | | | | | Alexis Cabrera, Mary S, | | | | | | MD [address] | | | | | | [facility] | | | | | | [place], [place] | | | | | | [address] | | | | | | [phone] | | | | | | | | | | | | Emery Chilel, MD | | | | | | [address] | | | | | | [facility], | | | | | | [place] [address] | | | | | | [phone] | | | | | | | | | | | | Qamar Wang, | | | | | | MD [address] | | | | | | [place], [place] | | | | | | [address] | | | | | | [phone] | | | | | | | | | | | | Sky Irizarry V, | | | | | | MD [address] | | | | | | [facility] | | | | | | [facility], [place] | | | | | | [address] | | | | | | [phone] | | | | | | | [...] PA-C,JOSE RAMON - 08/07/2016 11:23 AM PST [facility] Discharge Summary Discharging Provider: Ignacio Decker [...] sooner PRN s/s active bleeding HEENT: #Recent Creola Tooth Extractions (~2-3 weeks K 9 POLICE OFFICER): Nearly resolved -NS rinses PRN Pulmonary: Pretransplant PFTs completed on 06/25/16 (at [facility]) showed FEV1 of 86% pred icted, FVC of 90% predicted and DLCO of 50% predicted. No acute issues Cardiovascular: Pretransplant MUGA completed on 06/24/16 (at [facility]) showed a LVEF of 5 5%. #RLE DVT (first noted 07/04/15, persists on 07/16 doppler in R axial calf): Apixaban K 9 POLICE OFFICER -STOPPED Apixiban 5 mg BID on admission, plan to switch from lovenox to apixaban when plts> 50K -Received Tx-dose Lovenox until plts <50K (07/15-07/25) -Lovenox 40 mg qpm while thrombocytopenic w/ keeping plts >20K #Orthostatic HoTN (first noted 07/20): Sx improved with NS boluses but persistently Sx when getting OOB. -1L NS boluses PRN if asymptomatic GI: #GERD: Pepcid K 9 POLICE OFFICER -Prilosec 40 mg daily #Mucositis: pain without ulcerations, grade 2 -Continue oral care with normal saline rinses frequently -Liquid medications as able -Dilaudid DINING ROOM BUSSER (07/27 -08/04). #[place]: ongoing, improved -Zofran IV/PO q 12 hrs -Zyprexa 10 mg qhs -Ativan, Haldol prn. 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 Plan to administer as outpatient. -Monitor for hemolysis flare -Monitor LDH, hapto, complement activity qMon, Thurs #Menstrual suppression: Mild bleed -Norethindrone started 08/05 Neuro/Psych: #Depression/Anxiety: Lexapro K 9 POLICE OFFICER -Lexapro 10 mg daily -Ativan PRN Infectious [...] Orders and Instructions Call the BMT clinic ([phone]) or BMT person on-call ([phone]) for: Any temp > 100.4 Nausea/vomiting unresponsive [...] INFUSION [facility] t [facility] [phone] Center for H 08/09/2016 9:20 AM CHM INFUSION NURSE; [facility] INF[facility]ION [facility] [place] [address] [facility] 08/10/2016 2:40 PM CHM INFUSION NURSE; [facility] INFUSION [facility] at [facility] [phone] [facility] for H 08/10/2016 3:15 PM Coreen Grissom; [facility] MA SUPPORT [facility] at [facility] [phone] Center for H 08/13/2016 12:40 PM CHM INFUSION NURSE; [facility] INFUSION [facility] t [facility] [phone] Center for H 08/13/2016 1:15 PM Coreen Grissom; M MA SUPPORT [facility] at [facility] [phone] Center for H 08/17/2016 12:40 PM CHM INFUSION NURSE; [facility] INFUSION [facility] at [facility] [phone] Center for H 08/17/2016 1:15 PM Coreen Grissom; M MA SUPPORT [facility] at [facility] [phone] Center for H 08/20/2016 12:40 PM CHM INFUSION NURSE; [facility] INFUSION [facility] [phone] Center for H 08/20/2016 1:15 PM Coreen Grissom; [facility] MA SUPPORT [facility] [place] [phone] Center for H JOSE RAMON Pemberton PA-C [facility] 14K [address] [facility] Mailcode: K[address] [place] [address] documented in thi s encounter Discharge Instructions Instructions Matheus Olsen RN - 08/02/2016Case Management Discharge Instruction: [facility] will provide your line care supplies and IV abx o n discharge. Call [phone] for questions , concerns or refill of supplies. Eleni Gutierrez RNborder patrol agent [phone] Check your oral temperature twice a day [...] rest. Call if you have any questions! BMT CLINIC ([facility]) during clinic hours (M-F 8:30-4:30): [phone] BMT CLINIC ([facility]) at all other times: [phone] 14KPV: [phone] How was your stay with us? Is [...] - d/c medications updated Follow-up: Arranged with [facility] See CLAUDINE discharge summary for details Principal [...] chemotherapy (HCC) MD Sky De Luna MD [place] [id number] [facility] Mailcode: Kpv14 [place], [place] [phone] I spent 30 min in discharge of pt, >50% in counseling and care coordination any Phillips FNP - 08/06/2016 3:56 PM PST Daily NPP Note - Auto Transplant Admit [facility] Attending: Constantin Link MD [facility] Physician: Constantin Link MD PCP: Aashish Hilton MD Benign Hematology: Jim Michael MD ([facility]) Pediatric Heme/Onc: Anh Moreland MD ([place]) Nephrology: Raghav Miller MD ([place]) Date of Admission: 07/15/2016 Conditioning regimen: BEAM [...] with moderate pain, no ulceration: Received Dilaudid DINING ROOM BUSSER (07/15 3-08/04). Continue prn oxycodone. -Nutrition: Taken [...] for autoBMT Local oncologist: Aashish Hilton MD ([facility]) Benign Hematology: Jim Michael MD ([facility]) Pediatric Heme/Onc: Anh Moreland MD ([place]) Nephrology: Raghav Miller MD ([place]) 04/2015 presented with flank pain CT C/A/P: 11 cm anterior mediastinal mass, pleural effusion & L supraclav adenopathy Needle bx: classical hodgkins, nodular sclerosing type Thoracentesis: reactive/benign BMBx: neg PET: bulky mediastinal mass, SUV 16; bilateral neck SUV 15; also R>L pleural effusion 05/10/15 began ABVE-PC (as per pediatric [id number]) via femoral line 05/16/15 presented with sepsis [...] L neck: classical Hodgkins Above therapy in [place] -> moved to [place] Continued on ecalizumab per benign heme (Fernanda) [...] sooner PRN s/s active bleeding HEENT: #Recent Creola Tooth Extractions (~2-3 weeks K 9 POLICE OFFICER): Nearly resolved -NS rinses PRN Pulmonary: Pretransplant PFTs completed on 06/25/16 (at [facility]) showed FEV1 of 86% pr edicted, FVC of 90% predicted and DLCO of 50% predicted. No acute issues Cardiovascular: Pretransplant MUGA completed on 06/24/16 (at [facility]) showed a LVEF of 5 5%. #RLE DVT (first noted 07/04/15, persists on 07/16 doppler in R axial calf): Apixaban K 9 POLICE OFFICER -STOPPED Apixiban 5 mg BID on admission, plan to switch from lovenox to apixaban when plt s>50K -Received Tx-dose Lovenox until plts <50K (07/15-07/25) -Lovenox 40 mg qpm while thrombocytopenic w/ keeping plts >20K #Orthostatic HoTN (first noted 07/20): Sx improved with NS boluses but persistently Sx when getting OOB. -1L NS boluses PRN if asymptomatic GI: #GERD: Pepcid K 9 POLICE OFFICER -Prilosec 40 mg daily #Mucositis: pain without ulcerations, grade 2 -Continue oral care with normal saline rinses frequently -Liquid medications as able -Dilaudid DINING ROOM BUSSER (07/27 -08/04). #[place]: ongoing, improved -Zofran IV/PO q 12 hrs -Zyprexa 10 mg qhs -Ativan, Haldol prn. 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 Plan to administer as outpatient. -Monitor for hemolysis flare -Monitor LDH, hapto, complement activity qMon, Thurs #Menstrual suppression: Mild bleed -Norethindrone started 08/05 Neuro/Psych: #Depression/Anxiety: Lexapro K 9 POLICE OFFICER -Lexapro 10 mg daily -Ativan PRN Infectious [...] PBSCT. Anticipate 3-4 week hospitalization. MORENA Nieves [facility] [address] [facility] Mailcode: [address] [place] [address] [id number] signed by MORENA Ramos at 08/06/2016 4:43 PM Constantin Abernathy MD,PhD - 08/06/2016 2:57 PM PSTHeme Malignancies/BMT I rounded today in conjunction with the Advanced Practice Provider I saw the patient, reviewed the history and relevant studies, and developed an assessment a nd plan. 20 y.o. 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 I called [facility] to let them know she may discharge tomorrow. I asked them to bill the Patient [employer] for the first 6 nights. Notified patient by phone to her room. 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 setting up home iv abx Arrange d/c [...] to chemotherapy (HCC) Constantin Link MD PhD ohamFany new, VALVING MACHINE OPERATOR - 08/05/2016 4:25 PM PST Daily NPP Note - Auto Transplant Admit [facility] Attending: Constantin Link MD [facility] Physician: Constantin Link MD PCP: Aashish Hilton MD Benign Hematology: Jim Michael MD ([facility]) Pediatric Heme/Onc: Anh Moreland MD ([place]) Nephrology: Raghav Miller MD ([place]) Date of Admission: 07/15/2016 Conditioning regimen: BEAM [...] with moderate pain, no ulceration: Received Dilaudid DINING ROOM BUSSER (07/15 3-08/04). Continue prn oxycodone. -Nutrition: Taken 900 ml in PO fluids & 10-20% of snacks. Encouraged nutritional supplement s. -FVO: Remains off MIVF / FVO. Diurese prn. -[place]: continue scheduled Zofran [...] for autoBMT Local oncologist: Aashish Hilton MD ([facility]) Benign Hematology: Jmi Michael MD ([facility]) Pediatric Heme/Onc: Anh Moreland MD ([place]) Nephrology: Raghav Miller MD ([place]) 04/2015 presented with flank pain CT C/A/P: 11 cm anterior mediastinal mass, pleural effusion & L supraclav adenopathy Needle bx: classical hodgkins, nodular sclerosing type Thoracentesis: reactive/benign BMBx: neg PET: bulky mediastinal mass, SUV 16; bilateral neck SUV 15; also R>L pleural effusion 05/10/15 began ABVE-PC (as per pediatric [id number]) via femoral line 05/16/15 presented with sepsis [...] L neck: classical Hodgkins Above therapy in [place] -> moved to [place] Continued on ecalizumab per benign heme (Fernanda) [...] sooner PRN s/s active bleeding HEENT: #Recent Creola Tooth Extractions (~2-3 weeks K 9 POLICE OFFICER): Nearly resolved -NS rinses PRN Pulmonary: Pretransplant PFTs completed on 06/25/16 (at [facility]) showed FEV1 of 86% pr edicted, FVC of 90% predicted and DLCO of 50% predicted. No acute issues Cardiovascular: Pretransplant MUGA completed on 06/24/16 (at [facility]) showed a LVEF of 5 5%. #RLE DVT (first noted 07/04/15, persists on 07/16 doppler in R axial calf): Apixaban K 9 POLICE OFFICER -STOPPED Apixiban 5 mg BID on admission -Received Tx-dose Lovenox until plts <50K (07/15-07/25) -Lovenox 40 mg qpm while thrombocytopenic w/ keeping plts >20K #Orthostatic HoTN (first noted 07/20): Sx improved with NS boluses but persistently Sx when getting OOB. -1L NS boluses PRN if asymptomatic GI: #GERD: Pepcid K 9 POLICE OFFICER -Prilosec 40 mg daily #Mucositis: pain without ulcerations, grade 2 -Continue oral care with normal saline rinses frequently -Liquid medications as able -Dilaudid DINING ROOM BUSSER (07/27 -08/04). #[place]: ongoing, improved -Zofran IV/PO q 12 hrs -Zyprexa 10 mg qhs -Ativan, Haldol prn. 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 Plan to administer as outpatient. -Monitor for hemolysis flare -Monitor LDH, hapto, complement activity qMon, Thurs #Menstrual suppression: Mild bleed -Norethindrone started 08/05 Neuro/Psych: #Depression/Anxiety: Lexapro K 9 POLICE OFFICER -Lexapro 10 mg daily -Ativan PRN Infectious [...] PBSCT. Anticipate 3-4 week hospitalization. MORENA Nieves [facility] [address] [facility] Mailcode: [facility] [place] [address] [id number] signed by MORENA Ramos at 08/05/2016 6:45 PM PSTChen Constantin MD,PhD - 08/04/2016 4:36 PM PSTHeme Malignancies/BMT [...] - anc 0.38 ANC engrafting Wean off DINING ROOM BUSSER BMT/Hodgkins - stg 2 bulky, s/p pediatric [...] on cefepime Social - d/c to local hot - housing reimbursement through insurance See CLAUDINE [...] chemotherapy (HCC) Constantin Link MD PhD ohamvirgen, MeenaDIA GonzalezP - 08/04/2016 3:09 PM PST Daily NPP Note - Auto Transplant Admit [facility] Attending: Constantin Link MD [facility] Physician: Constantin Link MD PCP: Aashish Hilton MD Benign Hematology: Jim Michael MD ([facility]) Pediatric Heme/Onc: Anh Moreland MD ([place]) Nephrology: Raghav Miller MD ([place]) Date of Admission: 07/15/2016 Conditioning regimen: BEAM [...] with moderate pain, no ulceration: Received Dilaudid DINING ROOM BUSSER (07/15 3-08/04). Start prn oxycodone. -Nutrition: Taken 800 ml in PO fluids & 25-100% of snacks. Encouraged nutritional supplemen ts. -FVO: Remains off MIVF / FVO. Diurese prn. -[place]: continue scheduled Zofran [...] for autoBMT Local oncologist: Aashish Hilton MD ([facility]) Benign Hematology: Jim Michael MD ([facility]) Pediatric Heme/Onc: Anh Moreland MD ([place]) Nephrology: Raghav Miller MD ([place]) 04/2015 presented with flank pain CT C/A/P: 11 cm anterior mediastinal mass, pleural effusion & L supraclav adenopathy Needle bx: classical hodgkins, nodular sclerosing type Thoracentesis: reactive/benign BMBx: neg PET: bulky mediastinal mass, SUV 16; bilateral neck SUV 15; also R>L pleural effusion 05/10/15 began ABVE-PC (as per pediatric [id number]) via femoral line 05/16/15 presented with sepsis [...] L neck: classical Hodgkins Above therapy in [place] -> moved to [place] Continued on ecalizumab per benign heme (Fernanda) [...] sooner PRN s/s active bleeding HEENT: #Recent Creola Tooth Extractions (~2-3 weeks K 9 POLICE OFFICER): Nearly resolved -NS rinses PRN Pulmonary: Pretransplant PFTs completed on 06/25/16 (at [facility]) showed FEV1 of 86% pr edicted, FVC of 90% predicted and DLCO of 50% predicted. No acute issues Cardiovascular: Pretransplant MUGA completed on 06/24/16 (at [facility]) showed a LVEF of 5 5%. #RLE DVT (first noted 07/04/15, persists on 07/16 doppler in R axial calf): Apixaban K 9 POLICE OFFICER -STOPPED Apixiban 5 mg BID on admission -Received Tx-dose Lovenox until plts <50K (07/15-07/25) -Lovenox 40 mg qpm while thrombocytopenic w/ keeping plts >20K #Orthostatic HoTN (first noted 07/20): Sx improved with NS boluses but persistently Sx when getting OOB. -1L NS boluses PRN if asymptomatic GI: #GERD: Pepcid K 9 POLICE OFFICER -Prilosec 40 mg daily #Mucositis: pain without ulcerations, grade 2 -Continue oral care with normal saline rinses frequently -Liquid medications as able -Transition to IV meds if worsening PO intake -Dilaudid DINING ROOM BUSSER (07/27 -08/04). #[place]: ongoing, improved -Zofran IV/PO q 12 hrs -Zyprexa 10 mg qhs -Ativan, Haldol prn. 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 Plan to administer as outpatient. -Monitor for hemolysis flare -Monitor LDH, hapto, complement activity qMon, Thurs Neuro/Psych: #Depression/Anxiety: Lexapro K 9 POLICE OFFICER -Lexapro 10 mg daily -Ativan PRN Infectious [...] PBSCT. Anticipate 3-4 week hospitalization. MORENA Nieves [facility] [address] [facility] Mailcode: [address] [place] [address] [id number] signed by MORENA Ramos at 08/04/2016 3:23 PM PSTMoFany an FNP - 08/03/2016 6:07 PM PSTFormatting of this note might be different fro m the original. Daily NPP Note - Auto Transplant Admit [facility] Attending: Constantin Link MD [facility] Physician: Constantin Link MD PCP: Aashish Hilton MD Benign Hematology: Jim Michael MD ([facility]) Pediatric Heme/Onc: Anh Moreland MD ([place]) Nephrology: Raghav Miller MD ([place]) Date of Admission: 07/15/2016 Conditioning regimen: BEAM [...] with moderate pain, no ulceration: continue Dilaudid DINING ROOM BUSSER (07/27 - ). -FVO: Remains off MIVF 2/2 FVO. Diurese prn. -[place]: continue scheduled Zofran and Zyprexa. Ativan/haldol PRN. -Lytes: Standard electrolyte replacement. K & phos repleted. Subjective: Has ongoing mouth pain, controlled on DINING ROOM BUSSER. Diarrhea improved compared to yeste rday. Denies [...] for autoBMT Local oncologist: Aashish Hilton MD ([facility]) Benign Hematology: Jim Michael MD ([facility]) Pediatric Heme/Onc: Anh Moreland MD ([place]) Nephrology: Raghav Miller MD ([place]) 04/2015 presented with flank pain CT C/A/P: 11 cm anterior mediastinal mass, pleural effusion & L supraclav adenopathy Needle bx: classical hodgkins, nodular sclerosing type Thoracentesis: reactive/benign BMBx: neg PET: bulky mediastinal mass, SUV 16; bilateral neck SUV 15; also R>L pleural effusion 05/10/15 began ABVE-PC (as per pediatric [id number]) via femoral line 05/16/15 presented with sepsis [...] L neck: classical Hodgkins Above therapy in [place] -> moved to [place] Continued on ecalizumab per benign heme (Fernanda) [...] sooner PRN s/s active bleeding HEENT: #Recent Creola Tooth Extractions (~2-3 weeks K 9 POLICE OFFICER): Nearly resolved -NS rinses PRN Pulmonary: Pretransplant PFTs completed on 06/25/16 (at [facility]) showed FEV1 of 86% pr edicted, FVC of 90% predicted and DLCO of 50% predicted. No acute issues Cardiovascular: Pretransplant MUGA completed on 06/24/16 (at [facility]) showed a LVEF of 5 5%. #RLE DVT (first noted 07/04/15, persists on 07/16 doppler in R axial calf): Apixaban K 9 POLICE OFFICER -STOPPED Apixiban 5 mg BID on admission -Received Tx-dose Lovenox until plts <50K (07/15-07/25) -Lovenox 40 mg qpm while thrombocytopenic w/ keeping plts >20K #Orthostatic HoTN (first noted 07/20): Sx improved with NS boluses but persistently Sx when getting OOB. -1L NS boluses PRN if asymptomatic GI: #GERD: Pepcid K 9 POLICE OFFICER -Prilosec 40 mg daily #Mucositis: pain without ulcerations, grade 2 -Continue oral care with normal saline rinses frequently -Liquid medications as able -Transition to IV meds if worsening PO intake -Dilaudid DINING ROOM BUSSER initiated 07/27 #[place]: ongoing, improved -Zofran IV/PO q 12 hrs -Zyprexa 10 mg qhs -Ativan, Haldol, benadryl prn. 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 Anticipate 3-4 week hospitalization. MORENA Nieves [facility] [address] [facility] Mailcode: [address] [place], [place] [id number] [phone] signed by MORENA Ramos at 08/03/2016 6:25 PM Constantin Abernathy MD,PhD - 08/03/2016 2:27 PM PSTHeme Malignancies/BMT [...] to chemotherapy (HCC) Constantin Link MD PhD KMel Saldivar - 07/16 11:58 AM PSTCalled patient with Jenny BIRCH to discuss discharge lodging plan. Patient mother has insurance policy that will reimburse $60/night for up to 90 days. We have agreed to help offset some of the expenses that we will pay 6 nights in full using the Patient Ass istance Fund at [facility]. The patient will be responsible for the rest of t he stay and will get the reimbursement. Patient is aware to contact myself or Jenny if she has any issues going forward after the 6 days. Mel SALDIVAR [facility] [address] [facility] Mailcode: [address] [place], [place] [phone] urLashon rosas PA - 08/02/2016 6:50 PM PST Daily NPP Note - Auto Transplant Admit [facility] Attending: Constantin Link MD [facility] Physician: Constantin Link MD PCP: Aashish Hilton MD Benign Hematology: Jim Michael MD ([facility]) Pediatric Heme/Onc: Anh Moreland MD ([place]) Nephrology: Raghav Miller MD ([place]) Date of Admission: 07/15/2016 Conditioning regimen: BEAM [...] with moderate pain, no ulceration: continue Dilaudid DINING ROOM BUSSER starte d 07/27 for now. MIVF stopped [...] exam. CVC: None, PIV only. Recent Labs 07/30/16234707/31/16 2349 08/02/16 0410 NA 142 141 145 K 3.2* 3.4 3.0* CL 111* 109* 110* BICARB 20* 23 22 BUN 6 5* 4* CR 0.71 0.63 0.66 GLU 99 81 88 CA 7.6* 7.6* 8.0* AST 13 9 6 ALT 17 15 13 AP 63 67 68 TBILI 0.2* 0.4 0.4 TP 5.0* 5.4* 5.5* ALB 2.3* 2.4* 2.5* Recent Labs 07/21/16231307/22/[id number]/30/16234707/31/16 2349 08/02/16 0410 WBC 7.90 0.82* < [...] for autoBMT Local oncologist: Aashish Hilton MD ([facility]) Benign Hematology: Jim Michael MD ([facility]) Pediatric Heme/Onc: Anh Moreland MD ([place]) Nephrology: Raghav Miller MD ([place]) 04/2015 presented with flank pain CT C/A/P: 11 cm anterior mediastinal mass, pleural effusion & L supraclav adenopathy Needle bx: classical hodgkins, nodular sclerosing type Thoracentesis: reactive/benign BMBx: neg PET: bulky mediastinal mass, SUV 16; bilateral neck SUV 15; also R>L pleural effusion 05/10/15 began ABVE-PC (as per pediatric [id number]) via femoral line 05/16/15 presented with sepsis [...] L neck: classical Hodgkins Above therapy in [place] -> moved to [place] Continued on ecalizumab per benign heme (Fernanda) [...] sooner PRN s/s active bleeding HEENT: #Recent Creola Tooth Extractions (~2-3 weeks K 9 POLICE OFFICER): Nearly resolved -NS rinses PRN Pulmonary: Pretransplant PFTs completed on 06/25/16 (at [facility]) showed FEV1 of 86% pr edicted, FVC of 90% predicted and DLCO of 50% predicted. No acute issues Cardiovascular: Pretransplant MUGA completed on 06/24/16 (at [facility]) showed a LVEF of 5 5%. #RLE DVT (first noted 07/04/15, persists on 07/16 doppler in R axial calf): Apixaban K 9 POLICE OFFICER -STOPPED Apixiban 5 mg BID on admission -Received Tx-dose Lovenox until plts <50K (07/15-07/25) -Lovenox 40 mg qpm while thrombocytopenic w/ keeping plts >20K #Orthostatic HoTN (first noted 07/20): Sx improved with NS boluses but persistently Sx when getting OOB. -1L NS boluses PRN if asymptomatic GI: #GERD: Pepcid K 9 POLICE OFFICER -Prilosec 40 mg daily #Mucositis: pain without ulcerations, grade 2 -Continue oral care with normal saline rinses frequently -Liquid medications as able -Transition to IV meds if worsening PO intake -Dilaudid DINING ROOM BUSSER initiated 07/27 -MIVF as below #[place]: ongoing, improved -Zofran IV/PO q 12 hrs -Zyprexa 10 mg qhs -Ativan, Haldol, benadryl prn. Renal: #Atypical HUS: Eculizumab K 9 POLICE OFFICER -Eculizumab q 2 weeks, next dose 08/09 -Monitor for hemolysis flare -Monitor LDH, hapto, complement activity qMon, Thurs Neuro/Psych: #Depression/Anxiety: Lexapro K 9 POLICE OFFICER -Lexapro 10 mg daily -Ativan PRN Infectious [...] around Day +30 to +40 (or Daps [id number] mg po daily if sulfa allergic), pending [...] hospitalization. LILLIANA FarfanC [facility] [facility] Mailcode: Uhn73a [place] [address] Constantin Abernathy MD,PhD - 08/02/2016 4:07 PM PSTHeme Malignancies/BMT [...] to chemotherapy (HCC) Constantin Link MD PhD zalea, LashonJASMIN Mcclelland - 08/01/2016 11:43 AM PST . Daily NPP Note - Auto Transplant Admit [facility] Attending: Constantin Link MD [facility] Physician: Constantin Link MD PCP: Aashish Hilton MD Benign Hematology: Jim Michael MD ([facility]) Pediatric Heme/Onc: Anh Moreland MD ([place]) Nephrology: Raghav Miller MD ([place]) Date of Admission: 07/15/2016 Conditioning regimen: BEAM [...] with moderate pain, no ulceration: continue Dilaudid DINING ROOM BUSSER starte d 07/27 for now. MIVF at [...] PIV only. Recent Labs 07/30/16 0008 07/30/16 0923 07/30/16 2348 07/31/16 2349 NA 139 -- 142 141 K 3.3* -- 3.2* 3.4 CL 107 -- 111* 109* BICARB 22 -- 20* 23 BUN 4* -- 6 5* CR 0.69 -- 0.71 0.63 GLU 106* 82 99 81 CA 7.2* -- 7.6* 7.6* AST 9 -- 13 9 ALT 12 -- 17 15 AP 61 -- 63 [...] for autoBMT Local oncologist: Aashish Hilton MD ([facility]) Benign Hematology: Jim Michael MD ([facility]) Pediatric Heme/Onc: Anh Moreland MD ([place]) Nephrology: Raghav Miller MD ([place]) 04/2015 presented with flank pain CT C/A/P: 11 cm anterior mediastinal mass, pleural effusion & L supraclav adenopathy Needle bx: classical hodgkins, nodular sclerosing type Thoracentesis: reactive/benign BMBx: neg PET: bulky mediastinal mass, SUV 16; bilateral neck SUV 15; also R>L pleural effusion 05/10/15 began ABVE-PC (as per pediatric [id number]) via femoral line 05/16/15 presented with sepsis [...] L neck: classical Hodgkins Above therapy in [place] -> moved to [place] Continued on ecalizumab per benign heme ([facility]anda) [...] sooner PRN s/s active bleeding HEENT: #Recent Creola Tooth Extractions (~2-3 weeks K 9 POLICE OFFICER): Nearly resolved -NS rinses PRN Pulmonary: Pretransplant PFTs completed on 06/25/16 (at [facility]) showed FEV1 of 86% pr edicted, FVC of 90% predicted and DLCO of 50% predicted. No acute issues Cardiovascular: Pretransplant MUGA completed on 06/24/16 (at [facility]) showed a LVEF of 5 5%. #RLE DVT (first noted 07/04/15, persists on 07/16 doppler in R axial calf): Apixaban K 9 POLICE OFFICER -STOPPED Apixiban 5 mg BID on admission -Received Tx-dose Lovenox until plts <50K (07/15-07/25) -Lovenox 40 mg qpm while thrombocytopenic w/ keeping plts >20K #Orthostatic HoTN (first noted 07/20): Sx improved with NS boluses but persistently Sx when getting OOB. -1L NS boluses PRN if asymptomatic GI: #GERD: Pepcid K 9 POLICE OFFICER -Prilosec 40 mg daily #Mucositis: pain without ulcerations, grade 2 -Continue oral care with normal saline rinses frequently -Liquid medications as able -Transition to IV meds if worsening PO intake -Dilaudid DINING ROOM BUSSER initiated 07/27 -MIVF as below #[place]: ongoing, improved -Zofran IV/PO q 12 hrs -Zyprexa 10 mg qhs -Ativan, Haldol, benadryl prn. Renal: #Atypical HUS: Eculizumab K 9 POL[employer] OFFICER -Eculizumab q 2 weeks, next dose 08/09 -Monitor for hemolysis flare -Monitor LDH, hapto, complement activity qMon, Thurs Neuro/Psych: #Depression/Anxiety: Lexapro K 9 POLICE OFFICER -Lexapro 10 mg daily -Ativan PRN Infectious [...] around Day +30 to +40 (or Daps [id number] mg po daily if sulfa allergic), pending [...] for auto PBSCT. Anticipate 3-4 week hospitalization. Lashon S Azalea, PA-C [facility] [address] [facility] Mailcode: Uhn[address] [place] [address] Miguel Sarkar MD - 08/01/2016 2:54 AM [...] normotensive Gastrointestinal: soft, nontender, not distended Extremities: [facility] LABS: Chemistries Recent Labs 07/30/16 0008 [...] Miguel Dooley MD General Surgery Resident, R3 [id number] urLashon rosas PA - 07/31/2016 4:44 PM PST . Daily NPP Note - Auto Transplant Admit [facility] Attending: Qamar Wang MD [facility] Physician: Constantin Link MD PCP: Aashish Hilton MD Benign Hematology: Jim Michael MD ([facility]) Pediatric Heme/Onc: Anh Moreland MD ([place]) Nephrology: Raghav Miller MD ([place]) Date of Admission: 07/15/2016 Conditioning regimen: BEAM [...] d/t moderate pain, no ulceration: On Dilaudid DINING ROOM BUSSER 07/27, continue MIVF d/t decreased PO intake/orthostatic [...] exam. CVC: None, PIV only. Recent Labs 07/28/16 2327 07/30/16 0008 07/30/16 0923 07/30/16 2348 NA [...] for autoBMT Local oncologist: Aashish Hilton MD ([facility]) Benign Hematology: Jim Michael MD ([facility]) Pediatric Heme/Onc: Anh Moreland MD ([place]) Nephrology: Raghav Miller MD ([place]) 04/2015 presented with flank pain CT C/A/P: 11 cm anterior mediastinal mass, pleural effusion & L supraclav adenopathy Needle bx: classical hodgkins, nodular sclerosing type Thoracentesis: reactive/benign BMBx: neg PET: bulky mediastinal mass, SUV 16; bilateral neck SUV 15; also R>L pleural effusion 05/10/15 began ABVE-PC (as per pediatric [id number]) via femoral line 05/16/15 presented with sepsis [...] L neck: classical Hodgkins Above therapy in [place] -> moved to [place] Contin[facility] - genetic testing for aHUS PENDING GDP [...] sooner PRN s/s active bleeding HEENT: #Recent Creola Tooth Extractions (~2-3 weeks K 9 POLICE OFFICER): Nearly resolved -NS rinses PRN Pulmonary: Pretransplant PFTs completed on 06/25/16 (at [facility]) showed FEV1 of 86% pr edicted, FVC of 90% predicted and DLCO of 50% predicted. No acute issues Cardiovascular: Pretransplant MUGA completed on 06/24/16 (at [facility]) showed a LVEF of 5 5%. #RLE DVT (first noted 07/04/15, persists on 07/16 doppler in R axial calf): Apixaban K 9 POLICE OFFICER -STOPPED Apixiban 5 mg BID on admission -Received Tx-dose Lovenox until plts <50K (07/15-07/25) -Lovenox 40 mg qpm while thrombocytopenic w/ keeping plts >20K #Orthostatic HoTN (first noted 07/20): Sx improved with NS boluses but persistently Sx when getting OOB. -1L NS boluses PRN if asymptomatic GI: #GERD: Pepcid K 9 POLICE OFFICER -Prilosec 40 mg daily #Mucositis: pain without ulcerations, grade 2 -Continue oral care with normal saline rinses frequently -Liquid medications as able -Transition to IV meds if worsening PO intake -Dilaudid DINING ROOM BUSSER initiated 07/27 -MIVF as below #[place]: ongoing, improved -Benadryl 25 mg PO q 6 hrs -Zofran IV/PO q 12 hrs -Zyprexa 10 mg qhs -Ativan, Haldol PRN Renal: #Atypical HUS: Ecalizumab K 9 POLICE OFFICER -Eculizumab q 2 weeks, next dose 08/09 -Monitor for hemolysis flare -Monitor LDH, hapto, complement activity qMon, Thurs Neuro/Psych: #Depression/Anxiety: Lexapro K 9 POLICE OFFICER -Lexapro 10 mg daily -Ativan PRN Infectious [...] around Day +30 to +40 (or Daps [id number] mg po daily if sulfa allergic), pending [...] hospitalization. JASMIN Farfan-C [facility] [address] [place] [address] Mailcode: [email or web address] [facility] [phone] Constantin Abernathy MD,PhD - 07/31/2016 3:30 PM PSTHeme Malignancies/BMT [...] PA-C,MPAS, 2 5 mg at 07/31/16 0619 weakbrlenaNDOBM-hzysqfxjk-JPACZA (SPECIAL MOUTHWASH) suspension (compound) 10-15 mL, 10-15 mL, oral, Q1H PRN, Constantin Link MD,PhD, 15 mL at 07/26/16 0957 enoxaparin (LOVENOX) injection 40 mg, 40 mg, subcutaneous, QPM, Lluvia Gonzalez, HAND STRIPPER, 40 mg at 07/30/162051 escitalopram oxalate (LEXAPRO) tablet 10 mg, 10 mg, oral, QPM, Vanessa Osborne, VALVING MACHINE OPERATOR, 10 mg at 07/30/162051 filgrastim-sndz (ZARXIO) injection 480 mcg, 480 mcg, subcutaneous, QPM AT 1700, Constantin Link MD,PhD, 480 mcg at 07/30/16 164 fluconazole (DIFLUCAN) suspension 400 mg, 400 mg, [...] Units at 07/29/16 1457 HYDROmorphone 0.5 mg/mL DINING ROOM BUSSER infusion (ADULT), , intravenous, CONTINUOUS, Ignacio Decker PA-C, MPAS, Last Rate: 0 mL/hr at 07/30/16 0615 lidocaine (LMX 4) 4 % cream, , topical, PRN, Vandana Chang, VALVING MACHINE OPERATOR loperamide (IMODIUM A-D) 1 mg/7.5 mL liquid 2 mg, 2 mg, oral, PRN, Mary Pérez MD, 2 mg at 07/30/16 1747 LORazepam (ATIVAN) tablet 0.5-1 mg, 0.5-1 mg, oral, Q6H PRN OR LORazepam (ATIVAN) injec tion 0.5-1 mg, 0.5-1 mg, intravenous, Q6H PRN, Vandana Chang, VALVING MACHINE OPERATOR, 0.5 mg at 6 0909 magnesium sulfate [...] 40 mg, 40 mg, oral, BEFORE BREAKFAST, Vandana Chang, MORENA, 40 mg at 07/31/16 0619 [DISCONTINUED] ondansetron (ZOFRAN) liquid 8 mg, 8 mg, oral, Q12H (Scheduled), 8 mg at 07/15 OR ondansetron (ZOFRAN) injection 4 mg, 4 mg, intravenous, Q12H (Scheduled), Rico Pérez MD, 4 mg at 07/31/16 0908 potassium [...] Wang MD, 300 mg at 07/15 02/27 09 valACYclovir 50 mg/mL suspension (compound) 500 mg, 500 mg, oral, BID, Mary Pérez MD , 500 mg at 07/31/16 09 vancomycin (VANCOCIN) IV 1,750 mg, 1,750 mg, intravenous, Q8H, Qamar Wang MD, 1,750 mg at 07/31/16 0618 vancomycin 50 mg/mL oral solution (compound) 125 mg, 125 mg, oral, BID, Lluvia Gonzalez NP, 125 mg at 07/31/16 09 Allergies: Promethazine; Sulfa (sulfonamide antibiotics); Sulfacetamide sodium; [...] pending CULTURE, BLOOD BACTI & YEAST OH [[id number]] [facility] CORE LAB Collected: 07/30/162158 Lab Status: In process Specimen: Blood from Hand - right Updated: 07/30/164 CULTURE, STERILITY BACTI [[id number]] LAB Collected: 07/30/16 0832 Lab Status: Preliminary result Specimen: Device Updated: 07/31/16 1004 Narrative: Culture Report: No growth to date Culture examined daily Report will be updated if growth occurs CULTURE, STERILITY BACTI [[id number]] LAB Collected: 07/30/16 0832 Lab Status: Preliminary [...] removed Port-A-Cath. IMPRESSION: Clear lungs. 07/30 EXAM: KS CHEST 1 VIEW HISTORY: Fever, tachycardia. Patient [...] Will follow with you. Silva Hector MD [facility] [address] [facility] Mailcode: [email or web address] [place] [address] iguel Dooley MD - 07/31/2016 3:19 AM PST EGS [...] attending of record Miguel Dooley MD EGS, [id number] yMiguel velez MD - 07/30/2016 10:45 PM [...] normotensive Gastrointestinal: soft, nontender, not distended Extremities: [facility] LABS: Chemistries Recent Labs 07/27/16 2331 07/28/16232607/30/16 0008 NA 140 137 139 K 4.1 [...] Miguel Dooley MD General Surgery Resident, R3 [id number] ashon Tristan PA - 07/30/2016 5:47 PM PST . Daily NPP Note - Auto Transplant Admit [facility] Attending: Qamar Wang MD [facility] Physician: Constantin Link MD PCP: Aashish Hilton MD Benign Hematology: Jim Michael MD ([facility]) Pediatric Heme/Onc: Anh Moreland MD ([place]) Nephrology: Raghav Miller MD ([place]) Date of Admission: 07/15/2016 Conditioning regimen: BEAM Date of transplant: 07/21/2016 Reason for admission: Planned BEAM-conditioned auto PBSCT for HL 24-Hr Events/Daily Plan: -Relapsed HL: Admitted for BEAM auto PBSCT, currently Day +10 -Pancytopenia d/t conditioning chemo: Keep plts >20K d/t anticoagulation, standard Hct tra nsfusion parameters.-Neutropenic fevers (first 07/28) +MRSA bacteremia (+12/14): CXR clear. Repeat cultures 07/29 remain positive [...] d/t moderate pain, no ulceration: Started Dilaudid DINING ROOM BUSSER 07/27, continue MIVF d/t decreased PO intake/orthostatic [...] for autoBMT Local oncologist: Aashish Hilton MD ([facility]) Benign Hematology: Jim Michael MD ([facility]) Pediatric Heme/Onc: Anh Moreland MD ([place]) Nephrology: Raghav Miller MD ([place]) 04/2015 presented with flank pain CT C/A/P: 11 cm anterior mediastinal mass, pleural effusion & L supraclav adenopathy Needle bx: classical hodgkins, nodular sclerosing type Thoracentesis: reactive/benign BMBx: neg PET: bulky mediastinal mass, SUV 16; bilateral neck SUV 15; also R>L pleural effusion 05/10/15 began ABVE-PC (as per pediatric [id number]) via femoral line 05/16/15 presented with sepsis [...] L neck: classical Hodgkins Above therapy in [place] -> moved to [place] [facility] - genetic testing for aHUS PENDING GDP [...] sooner PRN s/s active bleeding HEENT: #Recent Creola Tooth Extractions (~2-3 weeks K 9 POLICE OFFICER): Nearly resolved -NS rinses PRN Pulmonary: Pretransplant PFTs completed on 06/25/16 (at [facility]) showed FEV1 of 86% pr edicted, FVC of 90% predicted and DLCO of 50% predicted. No acute issues Cardiovascular: Pretransplant MUGA completed on 06/24/16 (at [facility]) showed a LVEF of 5 5%. #RLE DVT (first noted 07/04/15, persists on 07/16 doppler in R axial calf): Apixaban K 9 POLICE OFFICER -STOPPED Apixiban 5 mg BID on admission -Received Tx-dose Lovenox until plts <50K (07/15-07/25) -Lovenox 40 mg qpm while thrombocytopenic w/ keeping plts >20K #Orthostatic HoTN (first noted 07/20): Sx improved with NS boluses but persistently Sx when getting OOB. -1L NS boluses PRN if asymptomatic GI: #GERD: Pepcid K 9 POLICE OFFICER -Prilosec 40 mg daily #Mucositis: pain without ulcerations, grade 2 -Continue oral care with normal saline rinses frequently -Liquid medications as able -Transition to IV meds if worsening PO intake -Dilaudid DINING ROOM BUSSER initiated 07/27 -MIVF as below #[place]: ongoing, improved -Benadryl 25 mg PO q 6 hrs -Zofran IV/PO q 12 hrs -Zyprexa 10 mg qhs -Ativan, Haldol PRN Renal: #Atypical HUS: Ecalizumab K 9 POLICE OFFICER -Eculizumab q 2 weeks, next dose 08/09 -Monitor for hemolysis flare -Monitor LDH, hapto, complement activity qMon, Thurs Neuro/Psych: #Depression/Anxiety: Lexapro K 9 POLICE OFFICER -Lexapro 10 mg daily -Ativan PRN Infectious [...] around Day +30 to +40 (or Daps [id number] mg po daily if sulfa allergic), pending [...] hospitalization. LILLIANA FarfanC [facility] [address] [place] [address] Mailcode: [email or web address] [facility] [phone] eo Polanco - 07/30/2016 5:41 PM PSTTransthoracic [...] PA-C,MPAS, 2 5 mg at 07/30/16 1203 ixkygdwzzaVMXAN-qvnylewln-MOPWUL (SPECIAL MOUTHWASH) suspension (compound) 10-15 mL, 10-15 mL, oral, Q1H PRN, Constantin Link MD,PhD, 15 mL at 07/26/16 0957 enoxaparin (LOVENOX) injection 40 mg, 40 mg, subcutaneous, QPM, Lluvia Gonzalez, DIAMANTE escitalopram oxalate (LEXAPRO) tablet 10 mg, 10 mg, oral, QPM, MORENA John, 10 mg at 07/29/16 2136 filgrastim-sndz (ZARXIO) injection 480 mcg, 480 mcg, [...] Units at 07/29/16 1457 HYDROmorphone 0.5 mg/mL DINING ROOM BUSSER infusion (ADULT), , intravenous, CONTINUOUS, Ignacio Decker PA-C MPAS, Last Rate: 0 mL/hr at 07/30/16 0615 lidocaine (LMX 4) 4 % cream, , topical, PRN, Vandana Chang, VALVING MACHINE OPERATOR loperamide (IMODIUM A-D) 1 mg/7.5 mL liquid [...] (NDX) ointment (compound), , topical, Q1H PRN, Tamym Wisdom,PhD OLANZapine (ZYPREXA ZYDIS) disintegrating tablet 10 mg, 10 mg, oral, HS, Qamar Wang MD, 10 mg at 07/29/162054 omeprazole (PRILOSEC) capsule 40 mg, 40 mg, oral, BEFORE BREAKFAST, MORENA Marshall, 40 mg at 07/30/16 1204 [DISCONTINUED] ondansetron (ZOFRAN) liquid 8 mg, 8 mg, oral, Q12H (Scheduled), 8 mg at 07/15 OR ondansetron (ZOFRAN) injection 4 mg, 4 mg, intravenous, Q12H (Scheduled), L vero Pérez MD, 4 mg at 07/30/16 1200 [...] Lluvia Gonzalez NP, 125 mg at 07/29/16 2159 Allergies: Promethazine; Sulfa (sulfonamide antibiotics); Sulfacetamide sodium; [...] isolated at 5 days. URINE CULTURE WORKUP [[id number]] (Abnormal) LAB Collected: 07/28/16 1700 Lab Status: Final result Specimen: Urine from Urine Updated: 07/29/162157 ORGANISM Gram positive bacilli (A) LAB Narrative: Culture Report: 30,000 cfu/ml Gram positive bacilli Morphologically resembling Lactobacillus species < 10,000 cfu/ml Insignificant growth OTHER MICRO: 07/29 influenza A/B PCR negative 07/29 respiratory pathogen panel negative Recent radiographs: 07/29 EXAM: KS CHEST 1 VIEW HISTORY: Hypoxemia COMPARISON: Yesterday [...] Will follow with you. Silva Hector MD [facility] [address] [facility] Mailcode: [email or web address] [place], [place] [id number] Qamar Hall MD - 07/30/2016 12:26 PM [...] control for mucositis and line removal -conitnue DINING ROOM BUSSER See CLAUDINE documentation from today for complete details. Supportive care as outlined in NPP note and our orders from today CODE: FULL QAMAR WANG MD operations forester [facility] [place] [email or web address] [phone] Margi Puentes PA - 07/30/2016 11:49 AM PSTFormatting of this note might be different from the origina l. Daily NPP Note - Auto Transplant Admit [facility] Attending: Qamar Wang MD [facility] Physician: Constantin Link MD PCP: Aashish Hilton MD Benign Hematology: Jim Michael MD ([facility]) Pediatric Heme/Onc: Anh Moreland MD ([place]) Nephrology: Raghav Miller MD ([place]) Date of Admission: 07/15/2016 Conditioning regimen: BEAM [...] d/t moderate pain, no ulceration: Started Dilaudid DINING ROOM BUSSER 07/27, continue MIVF d/t decreased PO intake/orthostatic [...] for autoBMT Local oncologist: Aashish Hilton MD ([facility]) Benign Hematology: Jim Michael MD ([facility]) Pediatric Heme/Onc: Anh Moreland MD ([place]) Nephrology: Raghav Miller MD ([place]) 04/2015 presented with flank pain CT C/A/P: 11 cm anterior mediastinal mass, pleural effusion & L supraclav adenopathy Needle bx: classical hodgkins, nodular sclerosing type Thoracentesis: reactive/benign BMBx: neg PET: bulky mediastinal mass, SUV 16; bilateral neck SUV 15; also R>L pleural effusion 05/10/15 began ABVE-PC (as per pediatric [id number]) via femoral line 05/16/15 presented with sepsis [...] L neck: classical Hodgkins Above therapy in [place] -> moved to [place] Continued on ecalizumab per benign heme ([place]anda) [...] sooner PRN s/s active bleeding HEENT: #Recent Creola Tooth Extractions (~2-3 weeks K 9 POLICE OFFICER): Nearly resolved -NS rinses PRN Pulmonary: Pretransplant PFTs completed on 06/25/16 (at [facility]) showed FEV1 of 86% pr edicted, FVC of 90% predicted and DLCO of 50% predicted. No acute issues Cardiovascular: Pretransplant MUGA completed on 06/24/16 (at [facility]) showed a LVEF of 5 5%. #RLE DVT (first noted 07/04/15, persists on 07/16 doppler in R axial calf): Apixaban K 9 POLICE OFFICER -STOPPED Apixiban 5 mg BID on admission -Received Tx-dose Lovenox until plts <50K (07/15-07/25) -Lovenox 40 mg qpm while thrombocytopenic w/ keeping plts >20K #Orthostatic HoTN (first noted 07/20): Sx improved with NS boluses but persistently Sx when getting OOB. -1L NS boluses PRN if asymptomatic GI: #GERD: Pepcid K 9 POLICE OFFICER -Prilosec 40 mg daily #Mucositis: pain without ulcerations, grade 2 -Continue oral care with normal saline rinses frequently -Liquid medications as able -Transition to IV meds if worsening PO intake -Dilaudid DINING ROOM BUSSER initiated 07/27 -MIVF as below #[place]: ongoing, improved -Benadryl 25 mg PO q 6 hrs -Zofran IV/PO q 12 hrs -Zyprexa 10 mg qhs -Ativan, Haldol PRN Renal: #Atypical HUS: Ecalizumab K 9 POLICE OFFICER -Eculizumab q 2 weeks, next dose 08/09 -Monitor for hemolysis flare -Monitor LDH, hapto, complement activity qMon, Thurs Neuro/Psych: #Depression/Anxiety: Lexapro K 9 POLICE OFFICER -Lexapro 10 mg daily -Ativan PRN Infectious [...] around Day +30 to +40 (or Daps [id number] mg po daily if sulfa allergic), pending [...] for auto PBSCT. Anticipate 3-4 week hospitalization. Lashon Tristan PA-C [facility] [address] [facility] Mailcode: Uhn73a Joanne Herman [facility] [phone] Miguel Sarkar MD - 07/30/2016 2:09 AM PST . [...] normotensive Gastrointestinal: soft, nontender, not distended Extremities: [facility] LABS: Chemistries Recent Labs 07/27/16233007/28/16232607/30/16 0008 NA 140 137 139 K 4.1 4.0 3.3* CL 106 103 107 BICARB 26 25 22 BUN 5* 4* 4* CR 0.61 0.69 0.69 CA 7.8* 7.8* 7.2* MG 1.9 1.5* 2.1 PO4 2.6 1.5* 1.6* AST 4 5 9 ALT 11 10 12 AP 61 61 61 TBILI 0.1* 0.4 0.3 ALB 2.8* 2.7* 2.5* CBC with diff Recent Labs 07/27/16 23307/28/16232607/29/16 1542 07/30/16 0008 WBC <0.10* <0.10* -- <0.10* HB 7.0* 7.4* -- 6.6* HCT 20.6* 21.2* -- 19.3* PLT 33* 13* 34* 39* Coag No components found for: INR, PTT, PT CBG's Recent Labs 07/27/16 23307/28/1607/30/16 0008 GLU 91 94 106* Assessment and [...] Miguel Dooley MD General Surgery Resident, R3 [id number] Juliette Paulino MD - 07/29/2016 9:24 PM [...] tomorrow. Continue vancomycin, cefepime. Juliette Horton MD luvia Gonzalez HAND STRIPPER - 07/29/2016 4:33 PM PST Daily NPP Note - Auto Transplant Admit [facility] Attending: Qamar Wang MD [facility] Physician: Constantin Link MD PCP: Aashish Hilton MD Benign Hematology: Jim Michael MD ([facility]) Pediatric Heme/Onc: Anh Moreland MD ([place]) Nephrology: Raghav Miller MD ([place]) Date of Admission: 07/15/2016 Conditioning regimen: BEAM [...] d/t moderate pain, no ulceration: Started Dilaudid DINING ROOM BUSSER 07/27, continue MIVF d/t decreased PO intake/orthostatic [...] inflammation or induration. Dressing c/d/i Recent Labs 07/26/16 23207/27/16 2331 07/28/16 232 NA 141 140 137 K 3.8 4.1 4.0 CL 108 106 103 BICARB 23 26 25 BUN 8 5* 4* CR 0.56* 0.61 0.69 GLU 98 91 94 CA 7.9* 7.8* 7.8* AST 9 4 5 ALT 11 11 10 AP 63 61 61 TBILI <0.1* 0.1* 0.4 TP 5.2* 5.1* 5.3* ALB 2.9* 2.8* 2.7* Recent Labs 07/20/16 2309 07/21/16 2314 07/22/16 2335 07/26/16 23207/27/16 2331 07/28/16 2327 07/29/16 1542 WBC 1.55* 7.90 0.82* [...] for autoBMT Local oncologist: Aashish Hilton MD ([facility]) Benign Hematology: Jim Michael MD ([facility]) Pediatric Heme/Onc: Anh Morealnd MD ([place]) Nephrology: Raghav Miller MD ([place]) 04/2015 presented with flank pain CT C/A/P: 11 cm anterior mediastinal mass, pleural effusion & L supraclav adenopathy Needle bx: classical hodgkins, nodular sclerosing type Thoracentesis: reactive/benign BMBx: neg PET: bulky mediastinal mass, SUV 16; bilateral neck SUV 15; also R>L pleural effusion 05/10/15 began ABVE-PC (as per pediatric [id number]) via femoral line 05/16/15 presented with sepsis [...] L neck: classical Hodgkins Above therapy in [place] -> moved to [place] [facility] - genetic testing for aHUS PENDING GDP [...] sooner PRN s/s active bleeding HEENT: #Recent Creola Tooth Extractions (~2-3 weeks K 9 POLICE OFFICER): Nearly resolved -NS rinses PRN Pulmonary: Pretransplant PFTs completed on 06/25/16 (at [facility]) showed FEV1 of 86% pr edicted, FVC of 90% predicted and DLCO of 50% predicted. No acute issues Cardiovascular: Pretransplant MUGA completed on 06/24/16 (at [facility]) showed a LVEF of 5 5%. #RLE DVT (first noted 07/04/15, persists on 07/16 doppler in R axial calf): Apixaban K 9 POLICE OFFICER -STOPPED Apixiban 5 mg BID on admission -Received Tx-dose Lovenox until plts <50K (07/15-07/25) -Lovenox 40 mg qpm while thrombocytopenic -See supportive care #Orthostatic HoTN (first noted 07/20): Sx improved with NS boluses but persistently Sx when getting OOB. (07/23) BCx NTD. -1L NS boluses PRN if asymptomatic -MIVF as below -Low threshold to start empiric ABx if worsens GI: #GERD: Pepcid K 9 POLICE OFFICER -Prilosec 40 mg daily #Mucositis: pain without ulcerations, grade 2 -Continue oral care with normal saline rinses frequently -Liquid medications as able -Transition to IV meds if worsening PO intake -Dilaudid DINING ROOM BUSSER initiated 07/27 -MIVF as below #[place]: Controlled -Benadryl 25 mg PO q 6 hrs -Zofran IV/PO q 12 hrs -Zyprexa 10 mg qhs -Ativan, Haldol PRN Renal: #Atypical HUS: Ecalizumab K 9 POLICE OFFICER -Eculizumab q 2 weeks, next dose 08/09 -Monitor for hemolysis flare -Monitor LDH, hapto, complement activity qMon, Thurs Neuro/Psych: #Depression/Anxiety: Lexapro K 9 POLICE OFFICER -Lexapro 10 mg daily -Ativan PRN Infectious [...] around Day +30 to +40 (or Daps [id number] mg po daily if sulfa allergic), pending [...] Anticipate 3-4 week hospitalization. Lluvia Gonzalez NP [address] Mailcode: [facility] [place] [id number] amar Wang MD - 07/29/2016 11:13 AM PST Leukemia/Lymphoma [...] 07/23/2016 No growth to date. A/P: Meggan Nicolesandra is a 20 y.o. With relapsed HL [...] daily cultures - continue cefepime - Remove goomdan and PORT - TTE - consult ID - isolation 2. Hx of c-diff -continue flagyl 3. Atypical HUS -continue ecaluzimab (q 14 days)- no evidence of recurrent HUS 4. DVT: Continue LMWH (prophy dosing given thrombocytopenia) - keep plt > 20K 5. Pain control for mucositis -conitnue DINING ROOM BUSSER today See CLAUDINE documentation from today for complete details. Supportive care as outlined in NPP note and our orders from today CODE: FULL QAMAR WANG MD operations forester [facility] Center for Hematologic Malignancies [facility] Cancer [place] [email or web address] [phone] pQamar srinivasan MD - 07/28/2016 11:16 AM PST Leukemia/Lymphoma [...] S/Interval events: mucositis pain better controlled with DINING ROOM BUSSER. Maintaining po intake. Mild d iarrhea. No [...] 07/23/2016 No growth to date. A/P: Meggan Nicoletimarico is a 20 y.o. With relapsed HL [...] > 20K Pain control for mucositis -conitnue DINING ROOM BUSSER today Counts at [facility] See CLAUDINE documentation from today for complete details. Supportive care as outlined in NPP note and our orders from today including: -antiemetics -transfusion support- PRBCs today -electrolyte replacement -prophylactic antimicrobials CODE: FULL QAMAR WANG MD operations forester [facility] Center for Hematologic Malignancies [facility] Cancer [place] [email or web address] [phone] Lluvia Perry HAND STRIPPER - 07/28/2016 10:32 AM PST Daily NPP Note - Auto Transplant Admit [facility] Attending: Qamar Wang MD [facility] Physician: Constantin Link MD PCP: Aashish Hilton MD Benign Hematology: Jim Michael MD ([facility]) Pediatric Heme/Onc: Anh Moreland MD ([place]) Nephrology: Raghav Miller MD ([place]) Date of Admission: 07/15/2016 Conditioning regimen: BEAM [...] pain, no ulceration: Stable today. Started Dilaudid DINING ROOM BUSSER , continue MIVF d/t decreased PO intake/orthostatic [...] inflammation or induration. Dressing c/d/i Recent Labs 07/25/16 23107/26/16 23207/27/16 2331 NA 144 141 140 K 3.8 3.8 4.1 CL 110* 108 106 BICARB 25 23 26 BUN 7 8 5* CR 0.60 0.56* 0.61 GLU 98 98 91 CA 7.9* 7.9* 7.8* AST 7 9 4 ALT 11 11 11 AP 59 63 61 TBILI 0.1* <0.1* 0.1* TP 5.0* 5.2* 5.1* ALB 3.0* 2.9* 2.8* Recent Labs 07/20/16 23007/21/16 2314 07/22/16 2335 07/25/16231607/26/16 2329 07/27/16 2331 WBC 1.55* 7.90 0.82* < > [...] for autoBMT Local oncologist: Aashish Hilton MD ([facility]) Benign Hematology: Jim Michael MD ([facility]) Pediatric Heme/Onc: Anh Moreland MD ([place]) Nephrology: Raghav Miller MD ([place]) 04/2015 presented with flank pain CT C/A/P: 11 cm anterior mediastinal mass, pleural effusion & L supraclav adenopathy Needle bx: classical hodgkins, nodular sclerosing type Thoracentesis: reactive/benign BMBx: neg PET: bulky mediastinal mass, SUV 16; bilateral neck SUV 15; also R>L pleural effusion 05/10/15 began ABVE-PC (as per pediatric [id number]) via femoral line 05/16/15 presented with sepsis [...] L neck: classical Hodgkins Above therapy in [place] -> moved to [place] Continued on ecalizumab per benign heme ([place]anda) [...] sooner PRN s/s active bleeding HEENT: #Recent Creola Tooth Extractions (~2-3 weeks K 9 POLICE OFFICER): Nearly resolved -NS rinses PRN Pulmonary: Pretransplant PFTs completed on 06/25/16 (at [facility]) showed FEV1 of 86% pr edicted, FVC of 90% predicted and DLCO of 50% predicted. No acute issues Cardiovascular: Pretransplant MUGA completed on 06/24/16 (at [facility]) showed a LVEF of 5 5%. #RLE DVT (first noted 07/04/15, persists on 07/16 doppler in R axial calf): Apixaban K 9 POLICE OFFICER -STOPPED Apixiban 5 mg BID on admission -Received Tx-dose Lovenox until plts <50K (07/15-07/25) -Lovenox 40 mg qpm while thrombocytopenic -See supportive care #Orthostatic HoTN (first noted 07/20): Sx improved with NS boluses but persistently Sx when getting OOB. (07/23) BCx NTD. -1L NS boluses PRN if asymptomatic -MIVF as below -Low threshold to start empiric ABx if worsens GI: #GERD: Pepcid K 9 POLICE OFFICER -Prilosec 40 mg daily #Mucositis: pain without ulcerations, grade 2 -Continue oral care with normal saline rinses frequently -Liquid medications as able -Transition to IV meds if worsening PO intake -Dilaudid DINING ROOM BUSSER initiated 07/27 -MIVF as below #[place]: Controlled -Benadryl 25 mg PO q 6 hrs -Zofran IV/PO q 12 hrs -Zyprexa 10 mg qhs -Ativan, Haldol PRN Renal: #Atypical HUS: Ecalizumab K 9 POLICE OFFICER -Eculizumab q 2 weeks, next dose 08/09 -Monitor for hemolysis flare -Monitor LDH, hapto, complement activity qMon, Thurs Neuro/Psych: #Depression/Anxiety: Lexapro K 9 POLICE OFFICER -Lexapro 10 mg daily -Ativan PRN Infectious [...] around Day +30 to +40 (or Daps [id number] mg po daily if sulfa allergic), pending [...] Anticipate 3-4 week hospitalization. Lluvia Gonzalez NP [facility] [address] [facility] Mailcode: Kpv14 [place], [place] [id number] Qamar Hall MD - 07/27/2016 8:37 PM [...] thrombocytopenia) Pain control for mucositis -will add DINING ROOM BUSSER today-reviewed with patient See CLAUDINE documentation from today for complete details. Supportive care as outlined in NPP note and our orders from today including: -antiemetics -transfusion support -electrolyte replacement -prophylactic antimicrobials CODE: FULL QAMAR WANG MD operations forester [facility] Center for Hematologic Malignancies [facility] [email or web address] [phone] ain, Ignacio Bruce PA-C, MPAS - 07/27/2016 3:09 PM PST Daily NPP Note - Auto Transplant Admit [facility] Attending: Kenyatta Wang MD [facility] Physician: Constantin Link MD PCP: Aashish Hilton MD Benign Hematology: Jim Michael MD ([facility]) Pediatric Heme/Onc: Anh Moreland MD ([place]) Nephrology: Raghav Miller MD ([place]) Date of Admission: 07/15/2016 Conditioning regimen: BEAM Date of transplant: 07/21/2016 Reason for admission: Planned BEAM-conditioned auto PBSCT for HL 24-Hr Events/Daily Plan: -Relapsed HL: Adm for BEAM auto PBSCT -Pancytopenia d/t conditioning chemo: Keep plts >20K d/t anticoagulation, standard Hct mariano sfusion parameters. No transfusions today. -Atypical HUS: Conts Eculizumab q 2 weeks, next dose 07/26 (ordered in [facility] Monitor for h emolysis flare. Monitor LDH, hapto, complement activity qMon, Thurs. -RLE DVT (first noted 07/04/15, persists on 07/16 doppler in R axial calf): Plts 40 today, s o decreased Lovenox to 40 mg qpm and will keep plts >20K. -Mucositis Grade 2: worsening overnight - start Dilaudid DINING ROOM BUSSER 07/27 -[place]: Mostly controlled with scheduled Benadryl, [...] for autoBMT Local oncologist: Aashish Hilton MD ([facility]) Benign Hematology: Jim Michael MD ([facility]) Pediatric Heme/Onc: Anh Moreland MD ([place]) Nephrology: Raghav Miller MD ([place]) 04/2015 presented with flank pain CT C/A/P: 11 cm anterior mediastinal mass, pleural effusion & L supraclav adenopathy Needle bx: classical hodgkins, nodular sclerosing type Thoracentesis: reactive/benign BMBx: neg PET: bulky mediastinal mass, SUV 16; bilateral neck SUV 15; also R>L pleural effusion 05/10/15 began ABVE-PC (as per pediatric [id number]) via femoral line 05/16/15 presented with sepsis [...] L neck: classical Hodgkins Above therapy in [place] -> moved to [place] Continued on ecalizumab per benign heme ([place]) [...] sooner PRN s/s active bleeding HEENT: #Recent Creola Tooth Extractions (~2-3 weeks K 9 POLICE OFFICER): Nearly resolved -NS rinses PRN Pulmonary: Pretransplant PFTs completed on 06/25/16 (at [facility]) showed FEV1 of 86% pr edicted, FVC of 90% predicted and DLCO of 50% predicted. No acute issues Cardiovascular: Pretransplant MUGA completed on 06/24/16 (at [place]) showed a LVEF of 5 5%. #RLE DVT (first noted 07/04/15, persists on 07/16 doppler in R axial calf): Apixaban K 9 POLICE OFFICER -STOPPED Apixiban 5 mg BID on admission -Received Tx-dose Lovenox until plts <50K (07/15-07/25) -Lovenox 40 mg qpm while thrombocytopenic -See supportive care #Orthostatic HoTN (first noted 07/20): Sx improved with NS boluses but persistently Sx when getting OOB -1L NS boluses PRN; last given x2 on 07/24 -(07/23) BCx: NTD -Low threshold to start empiric ABx if worsens GI: #GERD: Pepcid K 9 POLICE OFFICER -Prilosec 40 mg daily #Mucositis - grade 2 (07/26) -Continue oral care with normal saline rinses frequently -Liquid medications as able -transition to IV if worsening PO intake #[place]: Controlled -Benadryl 25 mg PO q 6 hrs -Zofran IV/PO q 12 hrs -Zyprexa 10 mg qhs -Ativan, Haldol PRN Renal: #Atypical HUS: Ecalizumab K 9 POLICE OFFICER -Eculizumab q 2 weeks, next dose 07/26 -Monitor for hemolysis flare -Monitor LDH, hapto, complement activity qMon, Thurs Neuro/Psych: #Depression/Anxiety: Lexapro K 9 POLICE OFFICER -Lexapro 10 mg daily -Ativan PRN Infectious [...] around Day +30 to +40 (or Daps [id number] mg po daily if sulfa allergic), pending [...] week hospitalization. Ignacio Decker PA-C, [place] [id number] [facility] Mailcode: Kpv14 [place] [address] [email or web address] signed by Ignacio Decker PA-C,JOSE RAMON at [...] -prophylactic antimicrobials CODE: FULL QAMAR WANG MD operations forester [facility] Center for Hematologic Malignancies [facility] Cancer [place] [email or web address] [phone] ain, Ignacio Bruce PA-C, MPAS - 07/26/2016 1:18 PM PST Daily NPP Note - Auto Transplant Admit [facility] Attending: Kenyatta Wang MD [facility] Physician: Constantin Link MD PCP: Aashish Hilton MD Benign Hematology: Jim Michael MD ([facility]) Pediatric Heme/Onc: Anh Moreland MD ([place]) Nephrology: Raghav Miller MD ([place]) Date of Admission: 07/15/2016 Conditioning regimen: BEAM Date of transplant: 07/21/2016 Reason for admission: Planned BEAM-conditioned auto PBSCT for HL 24-Hr Events/Daily Plan: -Relapsed HL: Adm for BEAM auto PBSCT -Pancytopenia d/t conditioning chemo: Keep plts >20K d/t anticoagulation, standard Hct mariano sfusion parameters. No transfusions today. -Atypical HUS: Conts Eculizumab q 2 weeks, next dose 07/26 (ordered in [facility]). Monitor for h emolysis flare. Monitor [...] inflammation or induration. Dressing c/d/i Recent Labs 07/24/1614407/24/16233907/25/162316 NA 142 141 144 K 3.5 3.5 [...] Labs 07/20/16 2309 07/21/16 2314 07/22/16 2335 07/24/1614407/24/16 2340 07/25/16 2317 WBC 1.55* 7.90 0.82* [...] for autoBMT Local oncologist: Aashish Hilton MD ([facility]) Benign Hematology: Jim Michael MD ([facility]) Pediatric Heme/Onc: Anh Moreland MD ([place]) Nephrology: Raghav Miller MD ([place]) 04/2015 presented with flank pain CT C/A/P: 11 cm anterior mediastinal mass, pleural effusion & L supraclav adenopathy Needle bx: classical hodgkins, nodular sclerosing type Thoracentesis: reactive/benign BMBx: neg PET: bulky mediastinal mass, SUV 16; bilateral neck SUV 15; also R>L pleural effusion 05/10/15 began ABVE-PC (as per pediatric [id number]) via femoral line 05/16/15 presented with sepsis [...] L neck: classical Hodgkins Above therapy in [place] -> moved to [place] Continued on ecalizumab per benign heme ([place]) [...] sooner PRN s/s active bleeding HEENT: #Recent Creola Tooth Extractions (~2-3 weeks K 9 POLICE OFFICER): Nearly resolved -NS rinses PRN Pulmonary: Pretransplant PFTs completed on 06/25/16 (at [facility]) showed FEV1 of 86% pr edicted, FVC of 90% predicted and DLCO of 50% predicted. No acute issues Cardiovascular: Pretransplant MUGA completed on 06/24/16 (at [facility]) showed a LVEF of 5 5%. #RLE DVT (first noted 07/04/15, persists on 07/16 doppler in R axial calf): Apixaban K 9 POLICE OFFICER -STOPPED Apixiban 5 mg BID on admission -Received Tx-dose Lovenox until plts <50K (07/15-07/25) -Lovenox 40 mg qpm while thrombocytopenic -See supportive care #Orthostatic HoTN (first noted 07/20): Sx improved with NS boluses but persistently Sx when getting OOB -1L NS boluses PRN; last given x2 on 07/24 -(07/23) BCx: NTD -Low threshold to start empiric ABx if worsens GI: #GERD: Pepcid K 9 POLICE OFFICER -Prilosec 40 mg daily #Mucositis - grade 2 (07/26) -Continue oral care with normal saline rinses frequently -Liquid medications as able -transition to IV if worsening PO intake #[place]: Controlled -Benadryl 25 mg PO q 6 hrs -Zofran IV/PO q 12 hrs -Zyprexa 10 mg qhs -Ativan, Haldol PRN Renal: #Atypical HUS: Ecalizumab K 9 POLICE OFFICER -Eculizumab q 2 weeks, next dose 07/26 -Monitor for hemolysis flare -Monitor LDH, hapto, complement activity qMon, Thurs Neuro/Psych: #Depression/Anxiety: Lexapro K 9 POLICE OFFICER -Lexapro 10 mg daily -Ativan PRN Infectious [...] around Day +30 to +40 (or Daps [id number] mg po daily if sulfa allergic), pending [...] week hospitalization. Ignacio Decker PA-C, JOSE RAMON [facility] [address] [facility] Mailcode: Kpv14 [place], [place] [id number] l Mary Cabrera MD - 07/25/2016 1:53 PM PST [facility] Inpatient Service Inpatient Attending Progress Note [...] effusion 05/10/15 began ABVE-PC (as per pediatric [id number]) via femoral line 05/16/15 presented with sepsis [...] neck: classical Hodgkins - Above therapy in [place] -> moved to [facility]. [facility] - genetic testing for aHUS PENDING GDP [...] 72 Hours (or 3 results): Recent Labs 07/22/16233407/24/16 0145 07/24/16 2340 NA 142 142 141 K 3.7 3.5 3.5 CL 108 110* 110* BICARB 26 24 24 BUN 19 16 8 CR 0.69 0.60 0.55* GLU 87 99 92 CA 7.6* 7.5* 7.5* MG 2.2 2.0 1.9 PO4 3.4 2.8 2.4 Liver Tests: Last 72 hours (or 3 results) Recent Labs 07/22/16 23307/24/16 0145 07/24/16 2340 AST 11 5 6 ALT [...] with recovery of counts. Will return to [place]. Mary Pérez MD Pager: [phone] [facility] DEPARTMENT: [id number]- [facility] FACULTY MPV Place of Service:- Inpatient Date of Service: 07/25/2016 Suggested CPT:67560 - Subsequent, Detailed/High complex Vandana Chance FNP - 07/25/2016 11:09 AM PSTFo rmatting of this note might be different from the original. Daily NPP Note - Auto Transplant Admit [facility] Attending: Mary Pérez MD [facility] Physician: Constantin Link MD PCP: Aashish Hilton MD Benign Hematology: Jim Michael MD ([facility]) Pediatric Heme/Onc: Anh Moreland MD ([place]) Nephrology: Raghav Miller MD ([place]) Date of Admission: 07/15/2016 Conditioning regimen: BEAM Date of transplant: 07/21/2016 Reason for admission: Planned BEAM-conditioned auto PBSCT for HL 24-Hr Events/Daily Plan: -Relapsed HL: Adm for BEAM auto PBSCT -Pancytopenia d/t conditioning chemo: Keep plts >20K d/t anticoagulation, standard Hct mariano sfusion parameters. Transfused 1 unit PRBCs today -Atypical HUS: Conts Eculizumab q 2 weeks, next dose 07/26 (ordered in [facility]). Monitor for h emolysis flare. Monitor [...] inflammation or induration. Dressing c/d/i Recent Labs 07/22/165 07/24/16 0145 07/24/16 2340 NA 142 142 141 K 3.7 3.5 3.5 CL 108 110* 110* BICARB 26 24 24 BUN 19 16 8 CR 0.69 0.60 0.55* GLU 87 99 92 CA 7.6* 7.5* 7.5* AST 11 5 6 ALT 14 10 11 AP 69 61 54 TBILI 0.2* 0.2* <0.1* TP 5.1* 4.7* 4.6* ALB 3.0* 2.8* 2.7* Recent Labs 07/20/16 2309 07/21/16 2314 07/22/16 2335 07/24/16 0145 07/24/16 2340 WBC 1.55* 7.90 0.82* 0.28* [...] for autoBMT Local oncologist: Aashish Hilton MD ([facility]) Benign Hematology: Jim Michael MD ([facility]) Pediatric Heme/Onc: Anh Moreland MD ([place]) Nephrology: Raghav Miller MD ([place]) 04/2015 presented with flank pain CT C/A/P: 11 cm anterior mediastinal mass, pleural effusion & L supraclav adenopathy Needle bx: classical hodgkins, nodular sclerosing type Thoracentesis: reactive/benign BMBx: neg PET: bulky mediastinal mass, SUV 16; bilateral neck SUV 15; also R>L pleural effusion 05/10/15 began ABVE-PC (as per pediatric [id number]) via femoral line 05/16/15 presented with sepsis [...] L neck: classical Hodgkins Above therapy in [place] -> moved to [place] Continued on ecalizumab per benign heme ([place]anda) [...] sooner PRN s/s active bleeding HEENT: #Recent Creola Tooth Extractions (~2-3 weeks K 9 POLICE OFFICER): Nearly resolved -NS rinses PRN Pulmonary: Pretransplant PFTs completed on 06/25/16 (at [facility]) showed FEV1 of 86% pr edicted, FVC of 90% predicted and DLCO of 50% predicted. No acute issues Cardiovascular: Pretransplant MUGA completed on 06/24/16 (at [place]) showed a LVEF of 5 5%. #RLE DVT (first noted 07/04/15, persists on 07/16 doppler in R axial calf): Apixaban K 9 POLICE OFFICER -STOPPED Apixiban 5 mg BID on admission -Received Tx-dose Lovenox until plts <50K (07/15-07/25) -Lovenox 40 mg qpm while thrombocytopenic -See supportive care #Orthostatic HoTN (first noted 07/20): Sx improved with NS boluses but persistently Sx when getting OOB -1L NS boluses PRN; last given x2 on 07/24 -(07/23) BCx: NTD -Low threshold to start empiric ABx if worsens GI: #GERD: Pepcid K 9 POLICE OFFICER -Prilosec 40 mg daily #Risk for Mucositis: No e/o mucositis currently -Continue oral care with normal saline rinses frequently #[place]: Controlled -Benadryl 25 mg PO q 6 hrs -Zofran IV/PO q 12 hrs -Zyprexa 10 mg qhs -Ativan, Haldol PRN Renal: #Atypical HUS: Ecalizumab K 9 POLICE OFFICER -Eculizumab q 2 weeks, next dose 07/26 -Monitor for hemolysis flare -Monitor LDH, hapto, complement activity qMon, Thurs Neuro/Psych: #Depression/Anxiety: Lexapro K 9 POLICE OFFICER -Lexapro 10 mg daily -Ativan PRN Infectious [...] around Day +30 to +40 (or Daps [id number] mg po daily if sulfa allergic), pending [...] PBSCT. Anticipate 3-4 week hospitalization. MORENA Marshall [facility] [address] [facility] Mailcode: v14 [place] [address] russell, MORENA Benz - 07/24/2016 3:43 PM PST Daily NPP Note - Auto Transplant Admit [facility] Attending: Mary Pérez MD [facility] Physician: Constantin Link MD PCP: Aashish Hilton MD Benign Hematology: Jim Michael MD ([facility]) Pediatric Heme/Onc: Anh Moreland MD ([place]) Nephrology: Raghav Miller MD ([place]) Date of Admission: 07/15/2016 Conditioning regimen: BEAM Date of transplant: 07/21/2016 Reason for admission: Planned BEAM-conditioned auto PBSCT for HL 24-Hr Events/Daily Plan: -Relapsed HL: Adm for BEAM auto PBSCT -Pancytopenia d/t conditioning chemo: Above standard transfusion threshold. -Atypical HUS: Conts Eculizumab q 2 weeks, next dose 07/26 (ordered in [facility]). Monitor for h emolysis flare. Monitor [...] for autoBMT Local oncologist: Aashish Hilton MD ([facility]) Benign Hematology: Jim Michael MD ([facility]) Pediatric Heme/Onc: Anh Moreland MD ([place]) Nephrology: Raghav Miller MD ([place]) 04/2015 presented with flank pain CT C/A/P: 11 cm anterior mediastinal mass, pleural effusion & L supraclav adenopathy Needle bx: classical hodgkins, nodular sclerosing type Thoracentesis: reactive/benign BMBx: neg PET: bulky mediastinal mass, SUV 16; bilateral neck SUV 15; also R>L pleural effusion 05/10/15 began ABVE-PC (as per pediatric [id number]) via femoral line 05/16/15 presented with sepsis [...] L neck: classical Hodgkins Above therapy in [place] -> moved to [place] [facility] - genetic testing for aHUS PENDING GDP [...] sooner PRN s/s active bleeding HEENT: #Recent Creola Tooth Extractions (~2-3 weeks K 9 POLICE OFFICER): Nearly resolved -NS rinses PRN Pulmonary: Pretransplant PFTs completed on 06/25/16 (at [facility]) showed FEV1 of 86% pr edicted, FVC of 90% predicted and DLCO of 50% predicted. No acute issues Cardiovascular: Pretransplant MUGA completed on 06/24/16 (at [facility]) showed a LVEF of 5 5%. #RLE DVT (first noted 07/04/15, persists on 07/16 doppler in R axial calf): Apixaban K 9 POLICE OFFICER -STOPPED Apixiban 5 mg BID on admission -Tx-dose Lovenox until plts <50K, then decrease to prophy dose Lovenox -See supportive care #Orthostatic HoTN (first noted 07/20): Sx improved with NS boluses but persistently Sx when getting OOB -1L NS boluses PRN; last given x2 on 07/24 -(07/23) BCx: NTD -Low threshold to start empiric ABx if persists GI: #GERD: Pepcid K 9 POLICE OFFICER -Prilosec 40 mg daily #Risk for Mucositis: No e/o mucositis currently -Continue oral care with normal saline rinses frequently #[place]: Controlled -Benadryl 25 mg PO q 6 hrs -Zofran IV/PO q 12 hrs -Zyprexa 10 mg qhs -Ativan, Haldol PRN Renal: #Atypical HUS: Ecalizumab K 9 POLICE OFFICER -Eculizumab q 2 weeks, next dose 07/26 -Monitor for hemolysis flare -Monitor LDH, hapto, complement activity qMon, Thurs Neuro/Psych: #Depression/Anxiety: Lexapro K 9 POLICE OFFICER -Lexapro 10 mg daily -Ativan PRN Infectious [...] around Day +30 to +40 (or Daps [id number] mg po daily if sulfa allergic), pending [...] PBSCT. Anticipate 3-4 week hospitalization. MORENA Marshall [address] [facility] Mailcode: Kpv14 [place] [address] l Indiana Cabrera MD - 07/24/2016 2:19 PM PSTFormatting of this note might be different from the [facility] Inpatient Service Inpatient Attending Progress Note Date: 07/24/2016 Day: 9. Diagnosis: Hodgkin's Lymphoma I rounded today, 07/24/2016,in conjunction with the Advanced Practice Provider. I saw the p atient, reviewed the history and relevant studies and developed an assessment and plan. Juventino vega see the Advanced Practice Provider documentation from [...] effusion 05/10/15 began ABVE-PC (as per pediatric [id number]) via femoral line 05/16/15 presented with sepsis [...] neck: classical Hodgkins - Above therapy in [place] -> moved to [facility]. Continued on ecalizumab per benign heme ([place]anda) [...] 72 Hours (or 3 results): Recent Labs 07/21/16231307/22/16233407/24/16144 NA 141 142 142 K 3.7 3.7 3.5 CL 107 108 110* BICARB 24 26 24 BUN 15 19 16 CR 0.56* 0.69 0.60 GLU 104* 87 99 CA 7.4* 7.6* 7.5* MG 2.5 2.2 2.0 PO4 3.2 3.4 2.8 Liver Tests: Last 72 hours (or 3 results) Recent Labs 07/21/16231307/22/16233407/24/16144 AST 25 11 5 ALT 15 14 10 TBILI 0.2* 0.2* 0.2* AP 63 69 61 ALB 3.0* 3.0* 2.8* TP 5.2* 5.1* 4.7* CBC with diff last 72 hours (or 3 results) Recent Labs 07/21/16231307/22/16233407/24/16144 WBC 7.90 0.82* 0.28* HB 7.7* 7.7* [...] with recovery of counts. Will return to [place]. Mary Pérez MD Pager: [phone] [facility] DEPARTMENT: [phone]- [facility]AC[facility] Place of Service:- Inpatient Date of Service: 07/24/2016 Suggested CPT:02447 - Subsequent, Detailed/High complex Vandana Chance FNP - 07/23/2016 4:01 PM PSTFo rmatting of this note might be different from the original. Daily NPP Note - Auto Transplant Admit [facility] Attending: Emery Chilel MD [facility] Physician: Constantin Link MD PCP: Aashish Hilton MD Benign Hematology: Jim Michael MD ([facility]) Pediatric Heme/Onc: Anh Moreland MD ([place]) Nephrology: Raghav Miller MD ([place]) Date of Admission: 07/15/2016 Conditioning regimen: BEAM Date of transplant: 07/21/2016 Reason for admission: Planned BEAM-conditioned auto PBSCT for HL 24-Hr Events/Daily Plan: -Relapsed HL: Adm for BEAM auto PBSCT -Pancytopenia d/t conditioning chemo: Above standard transfusion threshold. -Atypical HUS: Conts Eculizumab q 2 weeks, next dose 07/26 (ordered in [facility]). Monitor for h emolysis flare. Monitor [...] inflammation or induration. Dressing c/d/i Recent Labs 07/20/16230807/21/16231307/22/16 2335 NA 141 141 142 K 3.3* 3.7 3.7 CL 110* 107 108 BICARB 23 24 26 BUN 14 15 19 CR 0.51* 0.56* 0.69 GLU 160* 104* 87 CA 7.6* 7.4* 7.6* AST 5 25 11 ALT 12 15 14 AP 62 63 69 TBILI 0.3 0.2* 0.2* TP 5.1* 5.2* 5.1* ALB 3.0* 3.0* 3.0* Recent Labs 07/20/16230807/21/16 23107/22/16 2335 WBC 1.55* 7.90 0.82* RBC 2.29* [...] for autoBMT Local oncologist: Aashish Hilton MD ([facility]) Benign Hematology: Jim Michael MD ([facility]) Pediatric Heme/Onc: Anh Moreland MD ([place]) Nephrology: Raghav Miller MD ([place]) 04/2015 presented with flank pain CT C/A/P: 11 cm anterior mediastinal mass, pleural effusion & L supraclav adenopathy Needle bx: classical hodgkins, nodular sclerosing type Thoracentesis: reactive/benign BMBx: neg PET: bulky mediastinal mass, SUV 16; bilateral neck SUV 15; also R>L pleural effusion 05/10/15 began ABVE-PC (as per pediatric [id number]) via femoral line 05/16/15 presented with sepsis [...] L neck: classical Hodgkins Above therapy in [place] -> moved to [place] Continued on ecalizumab per benign heme ([place]) [...] sooner PRN s/s active bleeding HEENT: #Recent Creola Tooth Extractions (~2-3 weeks K 9 POLICE OFFICER): Nearly resolved -NS rinses PRN Pulmonary: Pretransplant PFTs completed on 06/25/16 (at [facility]) showed FEV1 of 86% pr edicted, FVC of 90% predicted and DLCO of 50% predicted. No acute issues Cardiovascular: Pretransplant MUGA completed on 06/24/16 (at [facility]) showed a LVEF of 5 5%. #RLE DVT (first noted 07/04/15, persists on 07/16 doppler in R axial calf): Apixaban K 9 POL[employer] OFFICER -STOPPED Apixiban 5 mg BID on admission -Tx-dose Lovenox until plts <50K, then decrease to prophy dose Lovenox -See supportive care #Orthostatic HoTN (first noted 07/20, then SBP briefly in 80s overnight on 07/22): Sx improve d with 1L NS bolus but persistently tachycardic on rounds 07/23. -NS boluses PRN; last given 07/23 -(07/23) BCx PENDING GI: #GERD: Pepcid K 9 POL[employer] OFFICER -Prilosec 40 mg daily #Risk for Mucositis: No e/o mucositis currently -Continue oral care with normal saline rinses frequently #[place]: Controlled -Benadryl 25 mg PO q 6 hrs -Zofran IV/PO q 12 hrs -Ativan, Haldol PRN Renal: #Atypical HUS: Ecalizumab K 9 POLICE OFFICER -Eculizumab q 2 weeks, next dose 07/26 -Monitor for hemolysis flare -Monitor LDH, hapto, complement activity qMon, Thurs Neuro/Psych: #Depression/Anxiety: Lexapro K 9 POL[employer] OFFICER -Lexapro 10 mg daily -Ativan PRN Infectious [...] around Day +30 to +40 (or Daps [id number] mg po daily if sulfa allergic), pending [...] PBSCT. Anticipate 3-4 week hospitalization. MORENA Marshall [facility] [address] [facility] Mailcode: [facility] [place] [address] l Indiana Cabrera MD - 07/23/2016 3:03 PM PSTFormatting of this note might be different from the origin al. [facility] Inpatient Service Inpatient Attending Progress Note [...] effusion 05/10/15 began ABVE-PC (as per pediatric [id number]) via femoral line 05/16/15 presented with sepsis [...] neck: classical Hodgkins - Above therapy in [place] -> moved to [facility]. Continued on ecalizumab per benign heme ([place]) [...] 72 hours (or 3 results) Recent Labs 07/20/16 23007/21/16 2314 07/22/16 2335 AST 5 25 11 [...] with recovery of counts Will return to [place]. Mary Pérez MD Pager: [phone] [facility] DEPARTMENT: [phone]- [facility] Place of Service:- Inpatient Date of Service: 07/23/2016 Suggested CPT:50942 - Subsequent, Detailed/High complex ain, Ignacio Bruce PA-C,MPAS - 07/22/2016 3:52 PM PSTFormat ting of this note might be different from the original. Daily NPP Note - Auto Transplant Admit [facility] Attending: Emery Chilel MD [facility] Physician: Constantin Link MD PCP: Aashish Hilton MD Benign Hematology: Jim Michael MD ([facility]) Pediatric Heme/Onc: Anh Moreland MD ([place]) Nephrology: Raghav Miller MD ([place]) Date of Admission: 07/15/2016 Conditioning regimen: BEAM [...] for autoBMT Local oncologist: Aashish Hilton MD ([facility]) Benign Hematology: Jim Michael MD ([facility]) Pediatric Heme/Onc: Anh Moreland MD ([place]) Nephrology: Raghav Miller MD ([place]) 04/2015 presented with flank pain CT C/A/P: 11 cm anterior mediastinal mass, pleural effusion & L supraclav adenopathy Needle bx: classical hodgkins, nodular sclerosing type Thoracentesis: reactive/benign BMBx: neg PET: bulky mediastinal mass, SUV 16; bilateral neck SUV 15; also R>L pleural effusion 05/10/15 began ABVE-PC (as per pediatric [id number]) via femoral line 05/16/15 presented with sepsis [...] L neck: classical Hodgkins Above therapy in [place] -> moved to [place] Continued on ecalizumab per benign heme ([place]) [...] sooner PRN s/s active bleeding HEENT: #Recent Creola Tooth Extractions (~2-3 weeks K 9 [employer] OFFICER): Nearly resolved -NS rinses PRN Pulmonary: Pretransplant PFTs completed on 06/25/16 (at [facility]) showed FEV1 of 86% pr edicted, FVC of 90% predicted and DLCO of 50% predicted. No acute issues Cardiovascular: Pretransplant MUGA completed on 06/24/16 (at [facility]) showed a LVEF of 5 5%. #RLE DVT (first noted 07/04/15, persists on 07/16 doppler in R axial calf): Apixaban K 9 [employer] OFFICER -STOPPED Apixiban 5 mg BID on admission -Tx-dose Lovenox until plts <50K, then decrease to prophy dose Lovenox -See supportive care #Orthostatic HoTN: noted 07/20, give 500 mL fluid bolus. RESOLVED GI: #GERD: Pepcid K 9 POLICE OFFICER -Prilosec 40 mg daily #Risk for Mucositis: No e/o mucositis currently -Continue oral care with normal saline rinses frequently #[place]: -continue PRN ativan and benadryl Renal: #Atypical HUS: Ecalizumab K 9 POLICE OFFICER -Eculizumab q 2 weeks, next dose 07/26 -Monitor for hemolysis flare -Monitor LDH, hapto, complement activity qMon, Thurs Neuro/Psych: #Depression/Anxiety: Lexapro K 9 POLICE OFFICER -Lexapro 10 mg daily -Ativan PRN Infectious [...] around Day +30 to +40 (or Daps [id number] mg po daily if sulfa allergic), pending [...] week hospitalization. Ignacio Decker PA-C, JOSE RAMON [facility] [address] [facility] Mailcode: [address] [place] [address] Mary Jaeger MD - 07/22/2016 8:54 AM PST [facility] Inpatient Service Inpatient Attending Progress Note [...] effusion 05/10/15 began ABVE-PC (as per pediatric [id number]) via femoral line 05/16/15 presented with sepsis [...] neck: classical Hodgkins - Above therapy in [place] -> moved to [facility] Continued on ecalizumab per benign heme ([place]) [...] 72 Hours (or 3 results): Recent Labs 07/19/16235407/20/16 23007/21/16 2314 NA 142 141 141 K 3.6 3.3* 3.7 CL 111* 110* 107 BICARB 22 23 24 BUN 11 14 15 CR 0.60 0.51* 0.56* GLU 108* 160* 104* CA 8.0* 7.6* 7.4* MG 2.0 1.6* 2.5 PO4 2.5 1.7* 3.2 Liver Tests: Last 72 hours (or 3 results) Recent Labs 07/19/16235407/20/16 23007/21/16 2314 AST 8 5 25 ALT 12 12 15 TBILI 0.4 0.3 0.2* AP 65 62 63 ALB 3.1* 3.0* 3.0* TP 5.4* 5.1* 5.2* CBC with diff last 72 hours (or 3 results) Recent Labs 07/19/16235407/20/16 23007/21/16 2314 WBC 2.41* 1.55* 7.90 HB 7.9* 6.9* 7.7* HCT 23.2* 20.8* 22.7* PLT 168 135* 125* NEUTROPERC 96.3* 97.5* 98.3* LYMPHPERC 2.9* 1.9* 0.8* MONOPERC 0.4* 0.0* 0.0* BASOPERC 0.0 0.0 0.1 EOSPERC 0.0* 0.0* 0.0* Assessment: Meggan Nicoletimarico is a 20 y.o. F w/ hx [...] with recovery of counts Will return to [place]. Mary Pérez MD Pager: [phone] [facility] DEPARTMENT: [phone]- [facility] Place of Service:- Inpatient Date of Service: 07/22/2016 Suggested CPT:43694 - Subsequent, Detailed/High complex Trinity Us ANP - 07/21/2016 1:18 PM PSTVanesa max of this note might be different from the original. Daily NPP Note - Auto Transplant Admit [facility] Attending: Emery Chilel MD [facility] Physician: Constantin Link MD PCP: Aashish Hilton MD Benign Hematology: Jim Michael MD ([facility]) Pediatric Heme/Onc: Anh Moreland MD ([place]) Nephrology: Raghav Miller MD ([place]) Date of Admission: 07/15/2016 Conditioning regimen: BEAM [...] for autoBMT Local oncologist: Aashish Hilton MD ([facility]) Benign Hematology: Jim Michael MD ([facility]) Pediatric Heme/Onc: Anh Moreland MD ([place]) Nephrology: Raghav Miller MD ([place]) 04/2015 presented with flank pain CT C/A/P: 11 cm anterior mediastinal mass, pleural effusion & L supraclav adenopathy Needle bx: classical hodgkins, nodular sclerosing type Thoracentesis: reactive/benign BMBx: neg PET: bulky mediastinal mass, SUV 16; bilateral neck SUV 15; also R>L pleural effusion 05/10/15 began ABVE-PC (as per pediatric [id number]) via femoral line 05/16/15 presented with sepsis [...] L neck: classical Hodgkins Above therapy in [place] -> moved to [place] Continued on ecalizumab per benign heme ([place]) [...] sooner PRN s/s active bleeding HEENT: #Recent Creola Tooth Extractions (~2-3 weeks K 9 POLICE OFFICER): Nearly resolved -NS rinses PRN Pulmonary: Pretransplant PFTs completed on 06/25/16 (at [facility]) showed FEV1 of 86% pr edicted, FVC of 90% predicted and DLCO of 50% predicted. No acute issues Cardiovascular: Pretransplant MUGA completed on 06/24/16 (at [facility]) showed a LVEF of 5 5%. #RLE DVT (first noted 07/04/15, persists on 07/16 doppler in R axial calf): Apixaban K 9 [employer] OFFICER -STOPPED Apixiban 5 mg BID on admission -Tx-dose Lovenox until plts <50K, then decrease to prophy dose Lovenox -See supportive care #Orthostatic HoTN: noted 07/20, give 500 mL fluid bolus. RESOLVED GI: #GERD: Pepcid K 9 POLICE OFFICER -Prilosec 40 mg daily #Risk for Mucositis: No e/o mucositis currently -Continue oral care with normal saline rinses frequently #[place]: -continue PRN ativan and benadryl Renal: #Atypical HUS: Ecalizumab K 9 POLICE OFFICER -Eculizumab q 2 weeks, next dose 07/26 -Monitor for hemolysis flare -Monitor LDH, hapto, complement activity qMon, Thurs Neuro/Psych: #Depression/Anxiety: Lexapro K 9 POLICE OFFICER -Lexapro 10 mg daily -Ativan PRN Infectious [...] around Day +30 to +40 (or Daps [id number] mg po daily if sulfa allergic), pending [...] Anticipate 3-4 week hospitalization. KRISHNA Valverde ANP [place] [id number] [facility] Mailcode: [facility] [place] [address] Emery Durán MD - 07/21/2016 1:06 PM [...] discussion of issues regarding stem cell infusion. [facility] DEPARTMENT: [phone] - [facility] Place of Service: - Inpatient Date of Service: 07/21/2016 Suggested CPT: 09667 - Subsequent, Exp Prob Foc/Mod Complex anning, JASMIN Pantoja - 07/20/2016 3:12 PM PST Daily NPP Note - Auto Transplant Admit [facility] Attending: Emery Chilel MD [facility] Physician: Constantin Link MD PCP: Aashish Hilton MD Benign Hematology: Jim Michael MD ([facility]) Pediatric Heme/Onc: Anh Moreland MD ([place]) Nephrology: Raghav Miller MD ([place]) Date of Admission: 07/15/2016 Conditioning regimen: BEAM [...] for autoBMT Local oncologist: Aashish Hilton MD ([facility]) Benign Hematology: Jim Michael MD ([facility]) Pediatric Heme/Onc: Anh Moreland MD ([place]) Nephrology: Raghav Miller MD ([place]) 04/2015 presented with flank pain CT C/A/P: 11 cm anterior mediastinal mass, pleural effusion & L supraclav adenopathy Needle bx: classical hodgkins, nodular sclerosing type Thoracentesis: reactive/benign BMBx: neg PET: bulky mediastinal mass, SUV 16; bilateral neck SUV 15; also R>L pleural effusion 05/10/15 began ABVE-PC (as per pediatric [id number]) via femoral line 05/16/15 presented with sepsis [...] L neck: classical Hodgkins Above therapy in [place] -> moved to [place] Continued on ecalizumab per benign heme ([facility]) - genetic testing for aHUS PENDING GDP [...] sooner PRN s/s active bleeding HEENT: #Recent Creola Tooth Extractions (~2-3 weeks K 9 POLICE OFFICER): Nearly resolved -NS rinses PRN Pulmonary: Pretransplant PFTs completed on 06/25/16 (at [facility]) showed FEV1 of 86% pr edicted, FVC of 90% predicted and DLCO of 50% predicted. No acute issues Cardiovascular: Pretransplant MUGA completed on 06/24/16 (at [facility]) showed a LVEF of 5 5%. #RLE DVT (first noted 07/04/15, persists on 07/16 doppler in R axial calf): Apixaban K 9 POLICE OFFICER -STOPPED Apixiban 5 mg BID on admission -Tx-dose Lovenox until plts <50K, then decrease to prophy dose Lovenox -See supportive care GI: #GERD: Pepcid K 9 POLICE OFFICER -Prilosec 40 mg daily #Risk for Mucositis: No e/o mucositis currently -Continue oral care with normal saline rinses frequently Renal: #Atypical HUS: Ecalizumab K 9 POLICE OFFICER -Eculizumab q 2 weeks, next dose 07/26 -Monitor for hemolysis flare -Monitor LDH, hapto, complement activity qMon, Thurs Neuro/Psych: #Depression/Anxiety: Lexapro K 9 POLICE OFFICER -Lexapro 10 mg daily -Ativan PRN Infectious [...] around Day +30 to +40 (or Daps [id number] mg po daily if sulfa allergic), pending platelet counts >50K. PCP prophy to continue 6 mos post PBSCT Toxo: (06/17/16) Toxo neg. No further testing required Fluid/Nutrition/Lytes: #Nutrition: Regular diet, No Adraine's yogurt or Kefir #Fluid: NS at 100 mL/hr with chemo #Lytes: -Continue to check chemistries daily -Replace per supportive care protocol. Disposition: Pt with relapsed HL, adm for auto PBSCT. Anticipate 3-4 week hospitalization. JASMIN Cat [facility] [address] [facility] Mailcode: [address] [place], [place] [id number] Emery Durán MD - 07/20/2016 11:10 AM [...] stem cell infusion, monitoring, timing and plan. [facility] DEPARTMENT: [phone] - [facility] Place of Service: - Inpatient Date of Service: 07/20/2016 Suggested CPT: 40677 - Subsequent, Detailed/High complex Jessica Lomax MD - 07/19/2016 12:39 PM PST Hematologic Malignancies Attending Inpatient Progress Note: Meggan Otero is a 20 y.o. 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, admit for autoBMT Local oncologist: Aashish Hilton MD ([facility]) Benign Hematology: Jim Michael MD ([facility]) Pediatric Heme/Onc: Anh Moreland MD ([place]) Nephrology: Raghav Miller MD ([place]) 04/2015 presented with flank pain CT C/A/P: 11 cm anterior mediastinal mass, pleural effusion & L supraclav adenopathy Needle bx: classical hodgkins, nodular sclerosing type Thoracentesis: reactive/benign BMBx: neg PET: bulky mediastinal mass, SUV 16; bilateral neck SUV 15; also R>L pleural effusion 05/10/15 began ABVE-PC (as per pediatric [id number]) via femoral line 05/16/15 presented with sepsis [...] L neck: classical Hodgkins Above therapy in [place] -> moved to [place] Continued on ecalizumab per benign heme ([place]) [...] Progress Note:I rounded today in conjunction w [employer] CLAUDINE I saw the patient, reviewed the history and various studies and developed the assessment an d plan. Please see the CLAUDINE documentation from today for details Meggan Otero is a 20 y.o. 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, admit for autoBMT Local oncologist: Aashish Hilton MD ([facility]) Benign Hematology: Jim Michael MD ([facility]) Pediatric Heme/Onc: Anh Moreland MD ([place]) Nephrology: Raghav Miller MD ([place]) 04/2015 presented with flank pain CT C/A/P: 11 cm anterior mediastinal mass, pleural effusion & L supraclav adenopathy Needle bx: classical hodgkins, nodular sclerosing type Thoracentesis: reactive/benign BMBx: neg PET: bulky mediastinal mass, SUV 16; bilateral neck SUV 15; also R>L pleural effusion 05/10/15 began ABVE-PC (as per pediatric [id number]) via femoral line 05/16/15 presented with sepsis [...] L neck: classical Hodgkins Above therapy in [place] -> moved to [place] Continued on ecalizumab per benign heme ([place]) - genetic testing for aHUS PENDING GDP x3 06/2017 CR by PET Goodman placed GCSF stem cell mobilization: 7.3 x10^6 cd34/kg S> Patient doing well. She is noting some nausea, no vomiting. No shortness of breath, dysp delilah on exertion or chest pain. No fevers. 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 Left cervical lymph node, biopsy ([id number], 03/16/2016): - Nodular sclerosis, classical Hodgkin's lymphoma [...] management 8) Chemotherapy-induced nausea Jessica Mac MD illa Chang, VALVING MACHINE OPERATOR - 07/17/2016 2:51 PM PSTFormatting of this note might be different from the orig inal. Daily NPP Note - Auto Transplant Admit [facility] Attending: Jessica Mac MD [facility] Physician: Constantin Link MD PCP: Aashish Hilton MD Benign Hematology: Jim Michael MD ([facility]) Pediatric Heme/Onc: Anh Moreland MD ([place]) Nephrology: Raghav Miller MD ([place]) Date of Admission: 07/15/2016 Conditioning regimen: BEAM [...] for autoBMT Local oncologist: Aashish Hilton MD ([facility]) Benign Hematology: Jim Michael MD ([facility]) Pediatric Heme/Onc: Anh Moreland MD ([place]) Nephrology: Raghav Miller MD ([place]) 04/2015 presented with flank pain CT C/A/P: 11 cm anterior mediastinal mass, pleural effusion & L supraclav adenopathy Needle bx: classical hodgkins, nodular sclerosing type Thoracentesis: reactive/benign BMBx: neg PET: bulky mediastinal mass, SUV 16; bilateral neck SUV 15; also R>L pleural effusion 05/10/15 began ABVE-PC (as per pediatric [id number]) via femoral line 05/16/15 presented with sepsis [...] L neck: classical Hodgkins Above therapy in [place] -> moved to [place] Continued on ecalizumab per benign heme ([place]) [...] sooner PRN s/s active bleeding HEENT: #Recent Creola Tooth Extractions (~2-3 weeks K 9 POLICE OFFICER): Nearly resolved -NS rinses PRN Pulmonary: Pretransplant PFTs completed on 06/25/16 (at [facility]) showed FEV1 of 86% pr edicted, FVC of 90% predicted and DLCO of 50% predicted. No acute issues Cardiovascular: Pretransplant MUGA completed on 06/24/16 (at [facility]) showed a LVEF of 5 5%. #RLE DVT (first noted 07/04/15, persists on 07/16 doppler in R axial calf): Apixaban K 9 POL[employer] OFFICER -STOPPED Apixiban 5 mg BID on admission -Tx-dose Lovenox until plts <50K, then decrease to prophy dose Lovenox -See supportive care GI: #GERD: Pepcid K 9 POLICE OFFICER -Prilosec 40 mg daily #Risk for Mucositis: No e/o mucositis currently -Continue oral care with normal saline rinses frequently Renal: #Atypical HUS: Ecalizumab K 9 POLICE OFFICER -Eculizumab q 2 weeks, next dose 07/26 -Monitor for hemolysis flare -Monitor LDH, hapto, complement activity qMon, Thurs Musculoskeletal: No acute issues Neuro/Psych: #Depression/Anxiety: Lexapro K 9 POL[employer] OFFICER -Lexapro 10 mg daily -Ativan PRN Skin: [...] around Day +30 to +40 (or Daps [id number] mg po daily if sulfa allergic), pending [...] PBSCT. Anticipate 3-4 week hospitalization. MORENA Marshall [facility] [address] [facility] Mailcode: [address] [place] [address] Yesi Lomax MD - 07/17/2016 9:59 AM PSTFormatting of this note might be different from the orig inal. Hematologic Malignancies Attending Inpatient Progress Note:I rounded today in conjunction w [employer] CLAUDINE I saw the patient, reviewed the history and various studies and developed the assessment an d plan. Please see the CLAUDINE documentation from today for details Meggan Otero is a 20 y.o. 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, admit for autoBMT Local oncologist: Aashish Hilton MD ([facility]) Benign Hematology: Jim Michael MD ([facility]) Pediatric Heme/Onc: Anh Moreland MD ([place]) Nephrology: Raghav Miller MD ([place]) 04/2015 presented with flank pain CT C/A/P: 11 cm anterior mediastinal mass, pleural effusion & L supraclav adenopathy Needle bx: classical hodgkins, nodular sclerosing type Thoracentesis: reactive/benign BMBx: neg PET: bulky mediastinal mass, SUV 16; bilateral neck SUV 15; also R>L pleural effusion 05/10/15 began ABVE-PC (as per pediatric [id number]) via femoral line 05/16/15 presented with sepsis [...] L neck: classical Hodgkins Above therapy in [place] -> moved to [place] Continued on ecalizumab per benign heme ([place]) - genetic testing for aHUS PENDING GDP x3 06/2017 CR by PET Goodman placed GCSF stem cell mobilization: 7.3 x10^6 cd34/kg S> Patient doing well. No shortness of breath, dyspnea on exertion or chest pain. Some naus ea, no vomiting. 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 Left cervical lymph node, biopsy ([id number], 03/16/2016): - Nodular sclerosis, classical Hodgkin's lymphoma [...] VRE (XENIA) BY PCR | Routin | 08/06/2016 | [...] VRE (XENIA) BY PCR | Routin | 07/15/2016 | [...] to 0900 dose on 08/07. Thanks! | [facility] | | | LABORATORY | | | SERVICES, CORE | + + + + + + + + | Performing | Address | City/State/Zipcode | Phone Number | | Organization | | | | + + + + + | [employer] | [address] | [place] [address] | | | SERVICES, CORE | PARK [...] + + + + | PRODUCT | [id number] | | [facility] | | | UNIT [...] + + + + | EXPIRATION | [phone] | | [facility] | | | DATE [...] + + + + | BLOOD | [id number] | | [facility] | | | PRODUCT [...] | + + + + + | [facility] | [address] | [place] [address] | | | SERVICES, | [address] [...] [facility] | [address] | [place] [address] | | | SERVICES, | [address] [...] + + | [facility] | [address] | [place] [address] | | | SERVICES, | [address] | | | | TRANSFUSION MEDICINE | | | | + + + + + [facility] MORPHOLOGY (08/07/2016 12:03 AM PST) + + + + + + | Component | Value | Ref Range | Performed | Pathologist | | | | | At | Signature | + + + + + + | NOLVIAE | Present | | [facility] | | [...] [facility] | [address] | [place] [address] | | | SERVICES, CORE | PARK [...] | + + + + + | [facility] | [address] [facility] | [place] [address] | | | SCOOBY PÉREZ | [address] [...] [facility] | [address] | [place] [address] | | | SERVICES, CORE | PARK [...] | + + + + + | [facility] | [address] [facility] | [place] [address] | | | SERVICES, CORE | ALVA [...] | | | LABORATORY | | | [facility] | | | SERVICES, | | | [...] | + + + + + | [facility] | [address] | [place] [address] | | | SERVICES, CORE | [address] | | | + + + + + MCKENZIE THOMAS) BY PCR (08/06/2016 4:02 PM PST) + [...] [facility] | [address] | [place] [address] | | | SERVICES, CORE | ALVA [...] + + + + | PRODUCT | [id number] | | [facility] | | | UNIT [...] + + + + | EXPIRATION | [id number] | | [facility] | | | DATE [...] + + + + | BLOOD | [id number] | | [facility] | | | PRODUCT [...] [facility] | [address] | [place] [address] | | | SERVICES, | [address] [...] [facility] | [address] | [place] [address] | | | SERVICES, CORE | PARK [...] [facility] | [address] | [place] [address] | | | SERVICES, CORE | PARK [...] | + + + + + | [facility] | [address] | [place] [address] | | | SERVICES, CORE | [address] | | | + + + + + MAGNESIUM, PLASMA (08/05/2016 11:30 PM PST) + +-------+ + + + | Component | Value | Ref Range | Performed | Pathologist | | | | | At | Signature | + +-------+ + + + | MAGNESIUM,P | 2.1 | 1.8 - 2.5 mg/dL | [facility] [...] [facility] | [address] | [place] [address] | | | SERVICES, CORE | ALVA [...] | | | LABORATORY | | | OMANI | | | SERVICES, | | | [...] the MDRD equation recommended by the | [facility] | | National Kidney Disease Education Program. [...] | + + + + + | [facility] | [address] | [place] [address] | | | SERVICES, CORE | ALVA [...] + + + + | PRODUCT | [id number] | | [facility] | | | UNIT [...] + + + + | EXPIRATION | [id number] | | [facility] | | | DATE [...] + + + + | BLOOD | [id number] | | [facility] | | | PRODUCT [...] [facility] | [address] | [place] [address] | | | SERVICES, | [address] [...] | + + + + + | [facility] | [address] | [place] [address] | | | SERVICES, CORE | PARK [...] | + + + + + | [facility] | [address] | [place] [address] | | | SERVICES, CORE | P[address] [...] [facility] | [address] | [place] [address] | | | SERVICES, CORE | PARK [...] | + + + + + | [facility] | [address] | [place] [address] | | | SERVICES, CORE | [address] | | | + + + + + MAGNESIUM, PLASMA (08/04/2016 11:55 PM PST) + +-------+ + + + | Component | Value | Ref Range | Performed | Pathologist | | | | | At | Signature | + +-------+ + + + | MAGNESIUM,P | 2.3 | 1.8 - 2.5 mg/dL | [facility] [...] | + + + + + | [facility] | [address] | [place] [address] | | | SERVICES, CORE | ALVA [...] | | | LABORATORY | | | OMANI | | | SERVICES, | | | [...] + + | [facility] | [address] | [place] [address] | | | SERVICES, CORE | PARK [...] + + + + + | [facility] | [address] | [place] [address] | | | SERVICES, CORE | PARK [...] | + + + + + | [facility] - | [address] | [place] [address] | | | [place] | | | [...] | | | | | | Cory, [facility] [address] | | | | | | [phone]. | | | | | | jeimy, [...] [facility] | [address] | [place], [place] | | | [facility] | | [address] | | + + + + + PICC LINE (08/04/2016 11:50 AM PST) + + + | Narrative | Performed At | + + + | Madison Kelly RN 08/04/2016 11:50 AM PICC LINE Performed | | | by: CLOTILDE PRATT Authorized by: CONSTANTIN LINK I PICC/Carlos Eduardo | | | Insertion Procedure Note Indications:Antibiotics Procedure | | | location: Unit:14 Room: 12 Providers: Attending name: Attending | | | physically present: No PICC Nurse name: Clotilde Pratt RN Assisted by | | | Karei Sierra Rn Pre-Procedure Consent: written consent | | | obtained Consent given by: Patient Patient identity confirmed per | | | protocol: Yes Team Pause: Immediatly prior to the procedure a pause | | | per protocol was called. A pause verifies correct patient, | | | procedure, equipment, computer support technician and site/side marked as | | | [...] vein. Catheter lot | | | number: [id number] with a length of 55 cm was [...] - PLATELET PHERESIS LEUKOREDUCED (08/04/2016 12:46 AM PST) + + + + [...] + + + + | PRODUCT | [id number] | | [facility] | | | UNIT [...] + + + + | EXPIRATION | [id number] | | [facility] | | | DATE [...] + + + + | BLOOD | [id number] | | [facility] | | | PRODUCT [...] | + + + + + | [facility] | [address] | [place] [address] | | | SERVICES, | [address] [...] + | [facility] | [address] | [place] [address] | | | SERVICES, CORE | PARK [...] [facility] | [address] | [place] [address] | | | SERVICES, CORE | PARK [...] | + + + + + | [facility] | [address] | [place] [address] | | | SERVICES, CORE | ALVA [...] [facility] | [address] | [place] [address] | | | SERVICES, CORE | ALVA [...] | | | LABORATORY | | | O[facility]I | | | SERVICES, | | | [...] the MDRD equation recommended by the | [facility] | | National Kidney Disease Education Program. [...] | + + + + + | [facility] | [address] | [place] [address] | | | SERVICES, CORE | PARK [...] [facility] | [address] | [place] [address] | | | [address] | ALVA [...] + + + + | PRODUCT | [id number] | | [facility] | | | UNIT [...] + + + + | EXPIRATION | [id number] | | [facility] | | | DATE [...] + + + + | BLOOD | [id number] | | [facility] | | | PRODUCT [...] [facility] | [address] | [place] [address] | | | SERVICES, | [address] [...] | | + +---------+ + + | [facility] | | | | | [...] | + + + + + | [facility] | [address] | [place] [address] | | | SERVICES, SCOOBY | ALVA [...] + + | [facility] | [address] | [place] [address] | | | [address] | ALVA [...] [facility] | [address] | [place] [address] | | | SERVICES, CORE | PARK [...] | + + + + + | [facility] | [address] | [place] [address] | | | SERVICES, CORE | ALVA [...] [facility] | [address] | [place] [address] | | | [address] | ALVA [...] | | | LABORATORY | | | OMANI | | | SERVICES, | | | [...] the MDRD equation recommended by the | [facility] | | National Kidney Disease Education Program. [...] | + + + + + | [facility] | [address] | [place] [address] | | | SERVICES, CORE | PARK [...] + + | [facility] | [address] [facility] | [place] [address] | | | SERVICES, SCOOBY | ALVA [...] [facility] | [address] | [place] [address] | | | SERVICES, CORE | PARK [...] 0.31 (L) | 3.50 - 10.80 | [place] | | | COUNT | | K/cu [...] | + + + + + | [facility] | [address] | [place] [address] | | | SERVICES, CORE | PARK [...] [facility] | [address] | [place] [address] | | | SERVICES, CORE | ALVA [...] | + + + + + | [facility] | [address] | [place] [address] | | | SERVICES, CORE | PARK [...] | + + + + + | [facility] | [address] | [place] [address] | | | SERVICES, CORE | ALVA [...] | | | LABORATORY | | | OMANI | | | SERVICES, | | | [...] + + | [facility] | [address] | [place] [address] | | | SERVICES, CORE | ALVA [...] [facility] | [address] | [place] [address] | | | SERVICES, CORE | PARK [...] | + + + + + | [facility] - | [address] | [place] [address] | | | [place] | | | | + + + [...] | | | | | | Cory, [place] [address] | | | | | | [phone] | | | | | | jeimy, [...] [facility] | [address] | [place], [place] | | | [facility] | | [address] | | + + + + + [...] [facility] | [address] | [place] [address] | | | SERVICESSCOOBY | [address] | | | + [...] + + + + | PRODUCT | [id number] | | [facility] | | | UNIT [...] + + + + | EXPIRATION | [id number] | | [facility] | | | DATE [...] + + + + | BLOOD | [id number] | | [facility] | | | PRODUCT [...] [facility] | [address] | [place] [address] | | | SERVICES, | [address] | | | | TRANSFUSION MEDICINE | | | | + + + + + CULTURE, BLOOD BACTI & YEAST [facility] (07/31/2016 11:49 PM PST) + + + [...] [facility] | [address] | [place] [address] | | | SERVICES, CORE | PARK [...] [facility] | [address] | [place] [address] | | | SERVICES, CORE | PARK [...] | + + + + + | [facility] | [address] | [place] [address] | | | SERVICES, CORE | [address] | | | + + + + + MAGNESIUM, PLASMA (07/31/2016 11:49 PM PST) + +-------+ + + + | Component | Value | Ref Range | Performed | Pathologist | | | | | At | Signature | + +-------+ + + + | MAGNESIUM,P | 1.9 | 1.8 - 2.5 mg/dL | [facility] | | | [facility] | | | [...] Thanks! Pharmacy | LABORATORY | | | [place] [address] | + + + + + + + + | Performing | Address | City/State/Zipcode | Phone Number | | Organization | | | | + + + + + | [facility] | [address] | [place] [address] | | | [address] | ALVA [...] | | | LABORATORY | | | OMANI | | | SERVICES, | | | [...] [facility] | [address] | [place] [address] | | | SERVICES, CORE | [...] Thanks! Pharmacy | LABORATORY | | | [place] | + + + + + + + + | Performing | Address | City/State/Zipcode | Phone Number | | Organization | | | | + + + + + | [facility] | [address] | [place] [address] | | | [address] | [address] | | | + [...] | | | | | | MD Ronak REECE | | | | | | personally [...] [facility] | [address] | [place] [address] | | | SERVICES, CORE | ALVA [...] + + + + | PRODUCT | [id number] | | [facility] | | | UNIT [...] + + + + | EXPIRATION | [id number] | | [facility] | | | DATE [...] + + + + | BLOOD | [id number] | | [facility] | | | PRODUCT [...] | + + + + + | [facility] | [address] | [place] [address] | | | SERVICES, | [address] [...] + + + + | PRODUCT | [id number] | | [facility] | | | UNIT [...] + + + + | EXPIRATION | [id number] | | [facility] | | | DATE [...] + + + + | BLOOD | [id number] | | [facility] | | | PRODUCT [...] | + + + + + | [facility] | [address] | [place] [address] | | | SERVICES, | [address] [...] + + | [facility] | [address] | [place] [address] | | | SERVICES, CORE | PARK [...] | + + + + + | [facility] | [address] | [place] [address] | | | SERVICES, CORE | [address] | | | + + + + + MAGNESIUM, PLASMA (07/30/2016 11:48 PM PST) + +-------+ + + + | Component | Value | Ref Range | Performed | Pathologist | | | | | At | Signature | + +-------+ + + + | MAGNESIUM,P | 2.0 | 1.8 - 2.5 mg/dL | [facility] | | | LASMA | | | [...] [facility] | [address] | [place] [address] | | | SERVICES, CORE | PARK [...] | | | LABORATORY | | | O[facility]I | | | SERVICES, | | | [...] the MDRD equation recommended by the | [facility] | | National Kidney Disease Education Program. [...] | + + + + + | [facility] | [address] | [place] [address] | | | SERVICES, CORE | [address] | | | + + + + + X-RAY PORTABLE CHEST 1 VIEW (07/30/2016 10:19 PM PST) + + + + + + | Component | Value | Ref Range | Performed | Pathologist | | | | | At | Signature | + + + + + + | X-RAY | EXAM: KS CHEST 1 VIEW | | | | [...] + + CULTURE, BLOOD BACTI & YEAST [facility] (07/30/2016 9:59 PM PST) + + + [...] | + + + + + | [facility] | [address] | [place] [address] | | | SERVICES, CORE | ALVA [...] | EJECTION | 57.5 | % | [facility] DEPT | | | FRACTION | | | OF | | | RANGE MEAN | | | CARDIOLOGY | | | VALUE | | | | | + + + + + + + + | Specimen | + + | | + + + + + | Narrative | Performed At | + + + | [facility] | [facility]PT [facility] | | [facility] Adult [facility]chocardiography | CARDIOLOGY | | Laboratory [address] [place] [address], | | | [place] [address] Pt Name: | | | MEGGAN OTERO Study Date/Time 07/30/2016 / 4:57:27 | | | PMMRN: [id number] Most recent | | | prior: -Acc #: [id number] No. previous echos: | | | 0DOB: 1995 20 years Heart Rate: 108 | | | bpmHeight: 70.0 in Blood Pressure: | | | 128/68 mm/HgWeight: 217.0 lb | | | Gender: FBSA: 2.16 | | | m2 Order ID: [id number] | | | Buckle Sewer: Leo RICHARD Referring Provider: Lashon Farias | [...] | | | Report electronically signed by: [id number] Deepti Cortes MD | | | (07/31/2016, 11:59:20 AM)REPORT NZFZ=[id number] HOSP=PO REGION=A0 | | | Final | | |REPORT NFNE=[id number] HOSP=PO REGION=A0 | | | | | | | | | | | | Final | | + + + + + | Procedure Note | + + | Interface, Cardiology Results - 07/31/2016 11:59 AM [facility] | | [facility] [address] [place] [address] | | [place], [place] [address] Pt Name: MEGGAN SANCHEZ | | HUMMELL Study Date/Time 07/30/2016 / 4:57:27 PMMRN: [id number] Most | | recent prior: -Acc #: [id number] No. previous echos: 0DOB: 1995 20 | | years Heart Rate: 108 bpmHeight: 70.0 in Blood Pressure: 128/68 | | mm/HgWeight: 217.0 lb Gender: FBSA: 2.16 m2 Order | | ID: [id number] Buckle Sewer: Leo Polanco RCSReferring Provider: Lashon Aranda | Roseann Location: 14KModalities Performed: 2D, Color flow, Spectral [...] values Report | | electronically signed by: [id number] Deepti Cortes MD (07/31/2016, 11:59:20 AM)REPORT | | TVTN=[id number] HOSP= REGION=A0 Final | |Aortic Valve: The [...] | | | |Report electronically signed by: [id number] Deepti Cortes MD (07/31/2016, 11:59:20 AM) | |REPORT HHSV=[id number] HOSP=PO REGION=A0 | | | | | | | | Final | + + + + + + + | Performing | Address | City/State/Zipcode | Phone Number | | Organization | | | | + + + + + | [facility] | [address] | [place], [place] | | | CARDIOLOGY | [address] | [address] | | + + + + + VANCOMYCIN, TROUGH (07/30/2016 2:38 PM PST) + +-------+ + [...] | + + + + + | [facility] | [address] | [place] [address] | | | [facility] | [address] | | | + [...] | | | POC | | | [place] | | | | | | [...] + + | [facility] | [address] | [place], [place] | | | [facility] CARE | [address] | [address] | | | TESTS | | | [...] | AIRPORT - | | seen | [place] | + + + + + + + + | Performing | Address | City/State/Zipcode | Phone Number | | Organization | | | | + + + + + | [facility] - | [address] | [place] [address] | | | [facility] | | | | + + + [...] + | [facility] - | [address] | [place] [address] | | | [place] | | | | + + + [...] + + + + | PRODUCT | [id number] | | [facility] | | | UNIT [...] + + + + | EXPIRATION | [id number] | | [facility] | | | DATE [...] + + + + | BLOOD | [id number] | | [facility] | | | PRODUCT [...] | + + + + + | [facility] | [address] | [place] [address] | | | SERVICES, | [address] | | | | TRANSFUSION MEDICINE | | | | + + + + + CULTURE, BLOOD BACTI & YEAST [facility] (07/30/2016 2:30 AM PST) + + + [...] [facility] | [address] | [place] [address] | | | SERVICES, CORE | [address] [...] [facility] | [address] | [place] [address] | | | SERVICES, CORE | PARK [...] | + + + + + | [facility] | [address] | [place] [address] | | | SERVICES, | [address] [...] [facility] | [address] | [place] [address] | | | SERVICES, | [address] [...] + + + + | PRODUCT | [id number] | | [facility] | | | UNIT [...] + + + + | EXPIRATION | [id number] | | [facility] | | | DATE [...] + + + + | BLOOD | [id number] | | [facility] | | | PRODUCT [...] [facility] | [address] | [place] [address] | | | SERVICES, | [address] [...] [facility] | [address] | [place] [address] | | | SERVICES, SCOOBY | ALVA [...] | + + + + + | [facility] | [address] | [place] [address] | | | SERVICES, CORE | [address] | | | + + + + + MAGNESIUM, PLASMA (07/30/2016 12:08 AM PST) + +-------+ + + + | Component | Value | Ref Range | Performed | Pathologist | | | | | At | Signature | + +-------+ + + + | MAGNESIUM,P | 2.1 | 1.8 - 2.5 mg/dL | [facility] [...] | + + + + + | [facility] | [address] | [place] [address] | | | SERVICES, CORE | ALVA [...] | | | LABORATORY | | | O[facility] | | | SERVICES, | | | [...] AST CMNT | No Hemo | | [facility] | | | | | | LABORATORY [...] | + + + + + | [facility] | [address] | [place] [address] | | | SERVICES, CORE | ALVA [...] + + + | X-RAY | EXAM: KS CHEST 1 VIEW | | | | [...] | | + +---------+ + + | [facility] DEPARTMENT OF | | | | [...] | + + + + + | [facility] | [address] | [place] [address] | | | SERVICES, CORE | [address] [...] + + + + | PRODUCT | [id number] | | [facility] | | | UNIT [...] + + + + | EXPIRATION | [id number] | | [facility] | | | DATE [...] + + + + | BLOOD | [id number] | | [facility] | | | PRODUCT [...] | + + + + + | [facility] | [address] | [place] [address] | | | SERVICES, | [address] [...] + + + + | PRODUCT | [id number] | | [facility] | | | UNIT [...] + + + + | EXPIRATION | [id number] | | [facility] | | | DATE [...] + + + + | BLOOD | [id number] | | [facility] | | | PRODUCT [...] | + + + + + | [facility] | [address] | [place] [address] | | | SERVICES, | [address] [...] | | | | (A) | | [facility] | | + + + + + + + + | Specimen | + + | Blood | + + + + + | Narrative | Performed At | + + + | Culture Report: Methicillin Resistant Staphylococcus aureus | [facility] - | | Presumptive identification Refer to culture collected 07/28/16 at | [facility] - | | 4:20 pm for complete identification and susceptibilities Growth in | [place] | | Aerobic bottle Growth in Anaerobic bottle | | + + + + + + + + | Performing | Address | City/State/Zipcode | Phone Number | | Organization | | | | + + + + + | [facility] | [address] | [place] [address] | | | [facility] | | | | + + + [...] | | | LABORATORY | | | SERVICESSCOOBY | + + + + + + + + | Performing | Address | City/State/Zipcode | Phone Number | | Organization | | | | + + + + + | [facility] | [address] | [place] [address] | | | SERVICES, SCOOBY | [address] [...] [facility] | [address] | [place] [address] | | | SERVICES, CORE | ALVA [...] | + + + + + | [facility] | [address] | [place] [address] | | | SERVICES, CORE | ALVA [...] | | | | (A) | | [place] | | + + + + + + + + | Specimen | + + | Blood - Portacath | + + + + + | Narrative | Performed At | + + + | Culture Report: Methicillin Resistant Staphylococcus aureus | [facility] - | | Presumptive identification Refer to culture collected 07/28/16 at | [facility] - | | 4:20 pm for complete identification and susceptibilities Growth in | [place] | | Aerobic bottle Growth in Anaerobic bottle | | + + + + + + + + | Performing | Address | City/State/Zipcode | Phone Number | | Organization | | | | + + + + + | [facility] - | [address] | [place] [address] | | | [place] | | | | + + + [...] | + + + + + | [facility] | [address] | [place] [address] | | | SERVICES, CORE | ALVA [...] | | | | (A) | | [place] | | + + + + + [...] complete identification and susceptibilities Growth in | [place] | | Aerobic bottle Growth in Anaerobic bottle | | + + + + + + + + | Performing | Address | City/State/Zipcode | Phone Number | | Organization | | | | + + + + + | [facility] | [address] | [place] [address] | | | [facility] | | | | + + + [...] | + + + + + | [facility] | [address] | [place] [address] | | | [address] | [address] | | | + [...] + + + + | PRODUCT | [id number] | | [facility] | | | UNIT [...] + + + + | EXPIRATION | [id number] | | [facility] | | | DATE [...] + + + + | BLOOD | [id number] | | [facility] | | | PRODUCT [...] [facility] | [address] | [place] [address] | | | SERVICES, | [address] [...] + | [facility] | [address] | [place], [place] | | | CARDIOLOGY | [address] | [address] | | + + + + + [...] [facility] | [address] | [place] [address] | | | [place] | ALVA [...] + + + + | PRODUCT | [id number] | | [facility] | | | UNIT [...] + + + + | EXPIRATION | [id number] | | [facility] | | | DATE [...] + + + + | BLOOD | [id number] | | [facility] | | | PRODUCT [...] [facility] | [address] | [place] [address] | | | SERVICES, | [address] [...] | + + + + + | [facility] | [address] | [place] [address] | | | [address] | ALVA [...] SERVICES, | | | | | | SCOOBY | | + +-------+ + + + + + | Specimen | + + | Blood | + + + + + + + | Performing | Address | City/State/Zipcode | Phone Number | | Organization | | | | + + + + + | [facility] | [address] | [place] [address] | | | ELISA, SCOOBY | ALVA [...] | + + + + + | [facility] | [address] | [place] [address] | | | SERVICES, CORE | [address] [...] | + + + + + | [facility] | [address] | [place] [address] | | | SERVICES, CORE | ALVA [...] | | | LABORATORY | | | O[facility]I | | | SERVICES, | | | [...] | + + + + + | [facility] | [address] | [place] [address] | | | SERVICES, CORE | ALVA [...] [facility] | [address] | [place] [address] | | | ELISA, SCOOBY | ALVA [...] - | | | | | | [place] | | + +---------+ + + + + + | Specimen | + + | Blood | + + + + + + + | Performing | Address | City/State/Zipcode | Phone Number | | Organization | | | | + + + + + | [facility] - | [address] | [place] [address] | | | [place] | | | | + + + [...] [place] | | | | | | [facility], [place] [address] | | | | | | [phone] | | | | | [place] [...] [facility] | [address] | [place], [place] | | | [facility] | | [address] | | + + + + + [...] SRAVANI | | | | | | FUSS 07/29/2016 8:15 AM | | | | [...] + | [facility] - | [address] | [place] [address] | | | [place] | | | [...] [facility] | [address] | [place] [address] | | | SERVICES, CORE | PARK [...] [facility] | [address] | [place] [address] | | | SERVICES, CORE | [address] | | | + + + + + UA, DIPSTICK ONLY (07/28/2016 5:00 PM PST) + + [...] + | [facility] | [address] | [place] [address] | | | SCOOBY PÉREZ | ALVA [...] | | | | (A) | | [place] | | + + + + + + + + | Specimen | + + | Blood | + + + + + | Narrative | Performed At | + + + | Culture Report: Methicillin Resistant Staphylococcus aureus | [facility] - | | Presumptive identification Refer to culture collected 07/28/16 at | [facility] - | | 4:20 PM for complete identification and susceptibilities Growth in | [place] | | Aerobic bottle Growth in Anaerobic bottle | | + + + + + + + + | Performing | Address | City/State/Zipcode | Phone Number | | Organization | | | | + + + + + | [facility] - | [address] | [place] [address] | | | [place] | | | | + + + + + CULTURE, BLOOD BACTI & YEAST [facility] (07/28/2016 4:47 PM PST) + + + [...] | + + + + + | [facility] | [address] | [place] [address] | | | SERVICES, CORE | ALVA [...] | | | | (A) | | [place] | | + + + + + [...] | + + + + + | [facility] - | [address] | [place] [address] | | | [place] | | | | + + + [...] | + + + + + | [facility] | [address] | [place] [address] | | | SERVICES, CORE | PARK [...] at 16:20 for complete identification and | [place] | | susceptibilities Growth in Aerobic bottle [...] | + + + + + | [facility] - | [address] | [place] [address] | | | [place] | | | | + + + + + CULTURE, BLOOD BACTI & YEAST [facility] (07/28/2016 4:15 PM PST) + + + [...] by culture. | LABORATORY | | | SERVICES, CORE | + + + + + + + + | Performing | Address | City/State/Zipcode | Phone Number | | Organization | | | | + + + + + | [facility] | [address] | [place] [address] | | | SERVICES, CORE | PARK [...] + + + + | PRODUCT | [id number] | | [facility] | | | UNIT [...] + + + + | EXPIRATION | [id number] | | [facility] | | | DATE [...] + + + + | BLOOD | [id number] | | [facility] | | | PRODUCT [...] | + + + + + | [facility] | [address] | [place] [address] | | | SERVICES, | [address] [...] | + + + + + | [facility] | [address] | [place] [address] | | | SERVICES, CORE | ALVA [...] | + + + + + | [facility] | [address] | [place] [address] | | | SCOOBY PÉREZ | PARK [...] SERVICES, | | | | | | SCOOBY | | + +-------+ + + + + + | Specimen | + + | Blood | + + + + + + + | Performing | Address | City/State/Zipcode | Phone Number | | Organization | | | | + + + + + | [facility] | [address] | [place] [address] | | | ELISA, CORE | [address] | | | [...] | | | LABORATORY | | | OMANI | | | SERVICES, | | | [...] the MDRD equation recommended by the | [facility] | | National Kidney Disease Education Program. [...] | + + + + + | [facility] | [address] | [place] [address] | | | SERVICES, CORE | ALVA [...] + + + + | PRODUCT | [id number] | | [facility] | | | UNIT [...] + + + + | EXPIRATION | [id number] | | [facility] | | | DATE [...] + + + + | BLOOD | [id number] | | [facility] | | | PRODUCT [...] [facility] | [address] | [place] [address] | | | SERVICES, | [address] [...] + + + + | PRODUCT | [id number] | | [facility] | | | UNIT [...] + + + + | EXPIRATION | [id number] | | [facility] | | | DATE [...] + + + + | BLOOD | [id number] | | [facility] | | | PRODUCT [...] [facility] | [address] | [place] [address] | | | SERVICES, | [address] [...] [facility] | [address] | [place] [address] | | | SERVICES, SCOOBY | ALVA [...] | + + + + + | [facility] | [address] | [place] [address] | | | SERVICES, CORE | PARK [...] | + + + + + | [facility] | [address] | [place] [address] | | | SERVICES, CORE | PARK [...] | | | LABORATORY | | | OMANI | | | SERVICES, | | | [...] | + + + + + | [facility] | [address] | [place] [address] | | | SERVICES, CORE | PARK [...] [facility] | [address] | [place] [address] | | | SERVICES, CORE | PARK [...] | + + + + + | [facility] | [address] | [place] [address] | | | SERVICES, SCOOBY | ALVA [...] [facility] | [address] | [place] [address] | | | SERVICES, CORE | PARK [...] + + | [facility] | [address] | [place] [address] | | | SERVICES, CORE | PARK [...] | | | LABORATORY | | | OMANI | | | SERVICES, | | | [...] + | [facility] | [address] | [place] [address] | | | SERVICES, CORE | PARK [...] + + | [facility] | [address] | [place] [address] | | | SERVICES, CORE | ALVA [...] + | [facility] - | [address] | [place] [address] | | | [place] | | | [...] [address] | | | | | | [place] [address] | | | | | | [phone]. | | | | | | [place], | | | | | | Ok [...] [facility] | [address] | [place], [place] | | | [facility] | | [address] | | + + + + + [...] ranges for full anticoagulation: INR for | [facility] | | Venous Thromboembolism (2.0 - 3.0) INR INR | LABORATORY | | for most patients with mech. valves (2.5 - 3.5) INR | SCOOBY PÉREZ | + + + + + + + + | Performing | Address | City/State/Zipcode | Phone Number | | Organization | | | | + + + + + | [facility] | [address] | [place] [address] | | | SCOOBY PÉREZ | ALVA [...] + + + + | PRODUCT | [id number] | | [facility] | | | UNIT [...] + + + + | EXPIRATION | [id number] | | [facility] | | | DATE [...] + + + + | BLOOD | [id number] | | [facility] | | | PRODUCT [...] [facility] | [address] | [place] [address] | | | SERVICES, | [address] [...] [facility] | [address] | [place] [address] | | | SERVICES, | [address] [...] | + + + + + | [facility] | [address] | [place] [address] | | | SERVICES, | [address] [...] + + | [facility] | [address] | [place] [address] | | | SERVICES, CORE | PARK [...] | + + + + + | [facility] | [address] | [place] [address] | | | SERVICES, CORE | [address] | | | + + + + + MAGNESIUM, PLASMA (07/24/2016 11:40 PM PST) + +-------+ + + + | Component | Value | Ref Range | Performed | Pathologist | | | | | At | Signature | + +-------+ + + + | MAGNESIUM,P | 1.9 | 1.8 - 2.5 mg/dL | [facility] | | | LASMA | | | [...] [facility] | [address] | [place] [address] | | | SERVICES, CORE | ALVA [...] | | | LABORATORY | | | OMANI | | | SERVICES, | | | [...] | + + + + + | [facility] | [address] | [place] [address] | | | SERVICES, CORE | PARK [...] 0.28 (L) | 3.50 - 10.80 | [facility] | | | COUNT | | K/cu mm | LABORATORY | | | | | | SERVICES, | | | | | | CORE | | + + + + + + | RED CELL | 2.43 (L) | 4.00 - 5.20 | [facility] | | | COUNT | | M/cu [...] | + + + + + | [facility] | [address] | [place] [address] | | | SERVICES, CORE | [address] | | | + + + + + PHOSPHORUS, PLASMA (07/24/2016 1:45 AM PST) + +-------+ + + + | Component | Value | Ref Range | Performed | Pathologist | | | | | At | Signature | + +-------+ + + + | PHOSPHORUS, | 2.8 | 2.4 - 4.7 mg/dL | [facility] [...] | + + + + + | [facility] | [address] | [place] [address] | | | SERVICES, CORE | PARK [...] | + + + + + | [facility] | [address] | [place] [address] | | | SERVICES, CORE | ALVA [...] | | | LABORATORY | | | OMANI | | | SERVICES, | | | [...] | + + + + + | [facility] | [address] | [place] [address] | | | SERVICES, CORE | PARK [...] | + + + + + | [facility] | [address] | [place] [address] | | | SERVICES, CORE | [address] | | | + + + + + CULTURE, BLOOD BACTI & YEAST MARICEL (07/23/2016 4:20 PM PST) + + + [...] [facility] | [address] | [place] [address] | | | SERVICES, SCOOBY | PARK [...] | + + + + + | [facility] | [address] | [place] [address] | | | SERVICES, CORE | PARK [...] | + + + + + | [facility] | [address] | [place] [address] | | | SERVICES, CORE | PARK [...] + + | [facility] | [address] | [place] [address] | | | SCOOBY PÉREZ | ALVA [...] [facility] | [address] | [place] [address] | | | SERVICES, CORE | [address] | | | + + + + + MAGNESIUM, PLASMA (07/22/2016 11:35 PM PST) + +-------+ + + + | Component | Value | Ref Range | Performed | Pathologist | | | | | At | Signature | + +-------+ + + + | MAGNESIUM,P | 2.2 | 1.8 - 2.5 mg/dL | [facility] [...] + + | [facility] | [address] | [place] [address] | | | SERVICES, CORE | PARK [...] | | | LABORATORY | | | OMANI | | | SERVICES, | | | [...] + + | [facility] | [address] | [place] [address] | | | SERVICES, CORE | [address] | | | + + + + + VRE (XENIA) BY PCR (07/22/2016 4:48 PM PST) [...] | + + + + + | [facility] | [address] | [place] [address] | | | SERVICES, SCOOBY | ALVA [...] | + + + + + | [facility] | [address] | [place] [address] | | | ELISA, CORE | [address] | | | [...] [facility] | [address] | [place] [address] | | | SERVICES, CORE | PARK [...] + + | [facility] | [address] | [place] [address] | | | SERVICES, CORE | [address] | | | + + + + + MAGNESIUM, PLASMA (07/21/2016 11:14 PM PST) + +-------+ + + + | Component | Value | Ref Range | Performed | Pathologist | | | | | At | Signature | + +-------+ + + + | MAGNESIUM,P | 2.5 | 1.8 - 2.5 mg/dL | [facility] [...] | + + + + + | [facility] | [address] | [place] [address] | | | SERVICES, CORE | PARK [...] | | | LABORATORY | | | OMANI | | | SERVICES, | | | [...] | + + + + + | [facility] | [address] | [place] [address] | | | SERVICES, SCOOBY | ALVA [...] | + + + + + | [facility] | [address] | [place] [address] | | | SCOOBY PÉREZ | [address] | | | + + + [...] | | | | | | [place], [facility] [address] | | | | | | [phone]. | | | | | | [place] [...] [facility] | [address] | [place], [place] | | | [facility] | | [address] | | + + + + + [...] + | [facility] - | [address] | [place] [address] | | | [place] | | | | + + + + + STEM CELL TRANSPLANT, AUTOLOGOUS (07/21/2016 5:29 PM PST) + + + | Narrative | Performed At | + + + | Emery Chilel MD 07/21/2016 5:29 PM Hematopoietic | | | Progenitor Cell Infusion Record Name: Meggan Otero MRN: | | | [id number] Indication for Procedure: Reconstitution of hematopoiesis | [...] processing: Yes Bag identification was crosschecked per [facility] | | | policy: Yes Product [...] or 4 toxicity occurs, please call the [facility] | | | [phone] to initiate the [facility] Adverse Reaction Report process. | | | Mild nausea and flushing during Emery Chilel MD | | + + + PROCEDURE NOTE (07/21/2016 12:51 PM PST) + + + | Narrative | Performed At | + + + | Allyson Waite 07/21/2016 12:51 PM Cell Processing Name: | | | Meggan Otero Donation Identification Number: | | | [id number]/Rh Recipient:A pos Antibody Screen | | | Recipient:negative Processing:Product was thawed and washed prior | | | to infusion Bag Identification Cross Checked: Yes Donation | | | Identification Number Confirmed:Yes Product Integrity Inspected:Yes | | | Product Characteristics: Volume: 320 mL CD34 dose | | | (x10^6/Kg):7.37 Allyson WAITE | | + + + CULTURE, BLOOD BACTI & YEAST MARICEL (07/21/2016 10:05 AM PST) + + + [...] [facility] | [address] | [place] [address] | | | SERVICES, CORE | [address] | | | + + + + + PRODUCT CELL COUNT (07/21/2016 10:05 AM PST) + + + + + + | Component | Value | Ref Range | Performed | Pathologist | | | | | At | Signature | + + + + + + | PRODUCT | [id number] | | [facility] | | | IDENTIFIER [...] + | [facility] | [address] | [place] [address] | | | SERVICES, CORE | ALVA [...] HEM CELL | [address] | [place], [place] | | | PROCESSING LAB | [address] | [address] | | + + + + + AUTO HPCA THAW (07/21/2016 10:04 AM PST) + + + + + + | Component | Value | Ref Range | Performed | Pathologist | | | | | At | Signature | + + + + + + | PRODUCT | Auto HPC, Apheresis | | [facility] | | | TYPE | [id number] | | CELL | | | | [...] HEM CELL | [address] | [place], [place] | | | PROCESSING LAB | [address] | [address] | | + + + + + [...] + + + + + | [facility] | [address] | [place], [place] | | | CARDIOLOGY | [address] | [address] | | + + + + + [...] + | [facility] | [address] | [place] [address] | | | SERVICES, | [address] [...] | + + + + + | [facility] | [address] | [place] [address] | | | SERVICES, | [address] [...] + + + + | PRODUCT | [id number] | | [facility] | | | UNIT [...] + + + + | EXPIRATION | [id number] | | [facility] | | | DATE [...] + + + + | BLOOD | [id number] | | [facility] | | | PRODUCT [...] + + | [facility] | [address] | [place] [address] | | | SERVICES, | [address] [...] in the IG count. Bands are | ELISA, CORE | | included in the neutrophil count. | | + + + + + + + + | Performing | Address | City/State/Zipcode | Phone Number | | Organization | | | | + + + + + | [facility] | [address] | [place] [address] | | | SERVICES, CORE | ALVA [...] | + + + + + | [facility] | [address] | [place] [address] | | | SERVICES, CORE | PARK [...] | + + + + + | [facility] | [address] | [place] [address] | | | SERVICES, CORE | ALVA [...] | | | LABORATORY | | | OMANI | | | SERVICES, | | | [...] + + + + + + | MADI TANNERNT | Rosana Hemo | | [facility] | | | [...] | + + + + + | [facility] | [address] | [place] [address] | | | SERVICES, CORE | ALVA [...] | + + + + + | [facility] | [address] | [place] [address] | | | ELISA, CORE | [address] | | | [...] [facility] | [address] | [place] [address] | | | SERVICES, CORE | PARK [...] 2.5 mg/dL | [facility] | | | [place] | | | [...] + + | [facility] | [address] | [place] [address] | | | SERVICES, CORE | [address] [...] | | | LABORATORY | | | OMANI | | | SERVICES, | | | [...] + + | [facility] | [address] | [place] [address] | | | SERVICES, CORE | [address] [...] | + + + + + | [facility] | [address] | [place] [address] | | | SERVICES, CORE | ALVA [...] | + + + + + | [facility] | [address] | [place] [address] | | | SERVICES, CORE | PARK [...] | + + + + + | [facility] | [address] | [place] [address] | | | SERVICES, CORE | ALVA [...] - | | | | | | BORIS | | + + + + + + + + | Specimen | + + | Blood | + + + + + + + | Performing | Address | City/State/Zipcode | Phone Number | | Organization | | | | + + + + + | [facility] | [address] | [place] [address] | | | [place] | | | | + + + [...] | | | | Laboratories,[address] | | | | | | [place] [address] | | | | | | [phone]. | | | | | | [place], | | | | | | Ok [...] [facility] | [address] | [place], [place] | | | [facility] | | [address] | | + + + + + [...] [facility] | [address] | [place] [address] | | | SERVICES, CORE | PARK [...] | + + + + + | [facility] | [address] | [place] [address] | | | SERVICES, SCOOBY | ALVA [...] [facility] | [address] | [place] [address] | | | SCOOBY PÉREZ | ALVA [...] | | | LABORATORY | | | OMANI | | | SERVICES, | | | [...] | + + + + + | [facility] | [address] | [place] [address] | | | SERVICES, CORE | ALVA [...] | + + + + + | [facility] | [address] | [place] [address] | | | SERVICES, CORE | PARK [...] | + + + + + | [facility] | [address] | [place] [address] | | | SERVICES, CORE | PARK [...] | + + + + + | [facility] | [address] | [place] [address] | | | SERVICES, CORE | ALVA [...] | | | LABORATORY | | | OMANI | | | SERVICES, | | | [...] + + + + + + | MADI CMNT | No Hemo | | [facility] [...] | + + + + + | [facility] | [address] | [place] [address] | | | SERVICES, CORE | ALVA [...] reference ranges effective June 30, 2016. | [facility] | | Immature Granulocytes (IG) include [...] | + + + + + | [facility] | [address] | [place] [address] | | | SERVICES, CORE | ALVA [...] + + | [facility] | [address] | [place] [address] | | | SERVICES, CORE | [address] | | | + + + + + MAGNESIUM, PLASMA (07/16/2016 11:59 PM PST) + +-------+ + + + | Component | Value | Ref Range | Performed | Pathologist | | | | | At | Signature | + +-------+ + + + | MAGNESIUM,P | 1.9 | 1.8 - 2.5 mg/dL | [facility] | | | LASMA | | | [...] [facility] | [address] | [place] [address] | | | SERVICES, CORE | PARK [...] | | | LABORATORY | | | OMANI | | | SERVICES, | | | [...] | + + + + + | [facility] | [address] | [place] [address] | | | SERVICES, CORE | ALVA [...] | | | | | | SARY POTTER, | | | | | | MDAuthor: [...] in the IG count. Bands are | ELISA, CORE | | included in the neutrophil count. | | + + + + + + + + | Performing | Address | City/State/Zipcode | Phone Number | | Organization | | | | + + + + + | [facility] | [address] | [place] [address] | | | ELISA CORE | [address] | | | [...] SERVICES, | | | | | | SCOOBY | | + +---------+ + + + + + | Specimen | + + | Blood | + + + + + + + | Performing | Address | City/State/Zipcode | Phone Number | | Organization | | | | + + + + + | [facility] | [address] | [place] [address] | | | SERVICES, CORE | ALVA [...] + + | [facility] | [address] | [place] [address] | | | SERVICES, CORE | PARK [...] | | | LABORATORY | | | OMANI | | | SERVICES, | | | [...] [facility] | [address] | [place] [address] | | | SERVICES, CORE | [address] | | | + + + + + VRE (XENIA) BY PCR (07/15/2016 9:36 PM PST) [...] | + + + + + | [facility] | [address] | [place] [address] | | | SERVICES, CORE | ALVA [...] reference ranges effective June 30, 2016. | [facility] | | Immature Granulocytes (IG) include metamyelocytes, [...] | + + + + + | [facility] | [address] | [place] [address] | | | SERVICES, CORE | ALVA [...] + | [facility] - | [address] | [place] [address] | | | [place] | | | | + + + [...] [address] | | | | | | [place] [address] | | | | | | [phone]. | | | | | | [place], | | | | | | Ok [...] [facility] | [address] | [place], [place] | | | [facility] [place] | | [address] | | + + + + + [...] [facility] | [address] | [place] [address] | | | SERVICES, | [address] [...] | + + + + + | [facility] | [address] | [place] [address] | | | SERVICES, | [address] [...] | + + + + + | [facility] | [address] | [place] [address] | | | SERVICES, CORE | ALVA [...] [facility] | [address] | [place] [address] | | | SERVICES, CORE | ALVA [...] | + + + + + | [facility] | [address] | [place] [address] | | | SERVICES, CORE | ALVA [...] | + + + + + | [facility] | [address] | [place] [address] | | | SCOOBY [address]REZ | ALVA [...] [facility] | [address] | [place] [address] | | | SERVICES, CORE | PARK [...] + + | [facility] | [address] | [place] [address] | | | SERVICES, CORE | PARK [...] | | | LABORATORY | | | OMANI | | | SERVICES, | | | [...] | + + + + + | [facility] | [address] | [place] [address] | | | SERVICES, CORE | [address] | | | + + + + + documented in this encounter Visit Diagnoses + + | Diagnosis | + + | 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 | + + | HUS (hemolytic uremic syndrome), atypical (HCC) Hemolytic-uremic syndrome | + + | Hx of Clostridium difficile infection Personal history of other infectious and | | parasitic disease | + + | Obesity, Class I, BMI 30-34.9 Obesity, unspecified | + + | Chronic deep vein thrombosis (DVT) (HCC) | + + | Chemotherapy induced nausea and vomiting Nausea with vomiting | + + | Autologous bone marrow transplantation status (HCC) Bone marrow replaced by | | transplant | + + | MRSA bacteremia Bacteremia | + + | Neutropenic fever (HCC) Neutropenia, unspecified | + + | Mucositis due to chemotherapy Mucositis (ulcerative) due to antineoplastic therapy | + + | Pancytopenia due to chemotherapy (HCC) Antineoplastic chemotherapy induced | | pancytopenia | + + documented in this encounter [...] | | +---+---+ + +-------+ +--------+---+---+ | acetaminophen (TYLENOL) tablet | Given | 07/21/20 | 650 mg | | | | 650 mg 650 mg, oral, ONE TIME | | 16 11:38 | | | | | DURING VISIT, Starting Wed | | AM PST | | | | | 07/21/16 at 0000, Until Wed | | | | | | | 07/21/16 at 2359 | | | | | | + +-------+ +--------+---+---+ +---+---+ | | | +---+---+ + +-------+ +--------+---+---+ | allopurinol (ZYLOPRIM) tablet | Given | 07/20/20 | 300 mg | | | | 300 mg 300 mg, oral, DAILY, 6 | | 16 9:14 | | | | | doses, First dose on Nia 07/15/16 | | AM PST | | | | | at 1545, Last dose on Tue07/20/16 | | | | | | | at 0900 | | | | | | + +-------+ +--------+---+---+ +-------+ +--------+---+---+ | Given | 07/19/20 | 300 mg | | | | | 16 9:54 | | | | | | AM PST | | | | +-------+ +--------+---+---+ | Given | 07/18/20 | 300 mg | | | | | 16 10:22 | | | | | | AM [...] | | | + +---+ + +---------+ +--------+-------+---+ | carmustine (BICNU) 660 mg in | New Bag | 07/15/20 | 660 mg | 175 | | | dextrose 5 % IV 660 mg (rounded | | 16 9:43 | | mL/hr | | | from 657 mg = 300 mg/m2 | | PM PST | | | | | 2.19 m2 Treatment plan recorded | | | | | | | BSA), intravenous, Administer | | | | | | | over 3-4 Hours, ONCE, 1 dose, Nia | | | | | | | 07/15/16 at 2100, HIGH RISK | | | | | | | MEDICATION-CHEMOTHERAPY | | | | | | | Irritant/Vesicant. Infuse on Day | | | | | | | -6., | | | | | | + +---------+ +--------+-------+---+ +---+---+ | | | +---+---+ + +---------+ +-----+-------+---+ | ceFEPime IV 2 grams in NS (MB+) | New Bag | 08/05/20 | 2 g | 100 | | | 2 g, intravenous, EVERY 8 | | 16 3:48 | | mL/hr | | | HOURS, First dose on Tue07/28/16 | | AM PST | | | | | at 1700, Until Discontinued | | | | | | + +---------+ +-----+-------+---+ +---------+ +-----+---+---+ | New Bag | 08/04/20 | 2 g | | | | | 16 8:15 | | | | | | PM PST | | | | +---------+ +-----+---+---+ | New Bag | 08/04/20 | 2 g | | | | | 16 12:09 | | | | | | PM PST | | | | +---------+ +-----+---+---+ +---+---+ | | | +---+---+ + +---------+ +--------+-------+---+ | cytarabine (CYTOSAR) 900 mg in | New Bag | 07/19/20 | 900 mg | 518 | | | NaCl 0.9 % IV 900 mg (rounded | | 16 11:13 | | mL/hr | | | from 876 mg = 400 mg/m2 | | AM PST | | | | | 2.19 m2 Treatment plan recorded | | | | | | | BSA), intravenous, Administer | | | | | | | over 30 Minutes, EVERY 24 HOURS, | | | | | | | 4 doses, First dose on Fri | | | | | | | 07/16/16 at 1100, Last dose on Tue | | | | | | | 07/19/16 at 1100, HIGH RISK | | | | | | | MEDICATION-CHEMOTHERAPY On Day | | | | | | | -5, Day -4, Day -3 and Day -2, | | | | | | + +---------+ +--------+-------+---+ +---------+ +--------+-------+---+ | New Bag | 07/18/20 | 900 mg | 518 | | | | 16 11:28 | | mL/hr | | | | AM PST | | | | +---------+ +--------+-------+---+ | New Bag | 07/17/20 | 900 mg | 518 | | | | 16 11:05 | | mL/hr | | | | AM PST | | | | +---------+ +--------+-------+---+ +---+---+ | | | +---+---+ + +-------+ +-------+---+---+ | dexamethasone (DECADRON) tablet | Given | 07/20/20 | 12 mg | | | | 12 mg 12 mg, oral, ONCE, 1 | | 16 10:02 | | | | | dose, 07/20/16 at 1000 | | AM PST | | | | + +-------+ +-------+---+---+ +---+---+ | | | +---+---+ + +-------+ +-------+---+---+ | dexamethasone (DECADRON) tablet | Given | 07/15/20 | 20 mg | | | | 20 mg 20 mg, oral, ONCE, 1 | | 16 7:55 | | | | | dose, [facility] 07/15/16 at 2030 | | PM PST | | | | + +-------+ +-------+---+---+ +---+---+ | | | +---+---+ + +-------+ +-------+---+---+ | dexamethasone (DECADRON) tablet | Given | 07/19/20 | 20 mg | | | | 20 mg 20 mg, oral, EVERY 24 | | 16 9:54 | | | | | HOURS, 4 doses, First dose on Fri | | AM PST | | | | | 07/16/16 at 1000, Last dose on | | | | | | | 07/19/16 at 1000 | | | | | | + +-------+ +-------+---+---+ +-------+ +-------+---+---+ | Given | 07/18/20 | 20 mg | | | | | 16 10:22 | | | | | | AM PST | | | | +-------+ +-------+---+---+ | Given | 07/17/20 | 20 mg | | | | | 16 10:13 | | | | | | AM PST | | | | +-------+ +-------+---+---+ +---+---+ | | | +---+---+ + +-------+ +-------+---+---+ | diphenhydrAMINE (BENADRYL) | Given | 07/19/20 | 25 mg | | | | capsule 25 mg 25 mg, oral, EVERY | | 16 6:21 | | | | | 6 HOURS NEEDED, Starting Fri | | PM PST | | | | | 07/16/16 at 1318, Until Nia | | | | | | | 07/22/16 at 0946, nausea/vomiting | | | | | | + +-------+ +-------+---+---+ +-------+ +-------+---+---+ | Given | 07/19/20 | 25 mg | | | | | 16 12:52 | | | | | | PM PST | | | | +-------+ +-------+---+---+ | Given | 07/18/20 | 25 mg | | | | | 16 8:37 | | | | | | PM PST | | | | +-------+ +-------+---+---+ +---+---+ | | | +---+---+ + +-------+ +-------+---+---+ | diphenhydrAMINE (BENADRYL) | Given | 07/21/20 | 50 mg | | | | capsule 50 mg 50 mg, oral, ONE | | 16 11:38 | | | | | TIME DURING VISIT, Starting Wed | | AM PST | | | | | 07/21/16 at 0000, Until Wed | | | | | | | 07/21/16 at 2359 | | | | | | + +-------+ +-------+---+---+ +---+---+ | | | +---+---+ + +-------+ +-------+---+---+ | diphenhydrAMINE (BENADRYL) oral | Given | 07/21/20 | 25 mg | | | | solution 25 mg 25 mg, oral, | | 16 8:29 | | | | | EVERY 6 HOURS NEEDED, Starting | | PM PST | | | | | 07/20/16 at 1238, Until Nia | | | | | | | 07/22/16 at 0946, nausea/vomiting | | | | | | + +-------+ +-------+---+---+ +-------+ +-------+---+---+ | Given | 07/21/20 | 25 mg | | | | | 16 2:30 | | | | | | AM PST | | | | +-------+ +-------+---+---+ | Given | 07/20/20 | 25 mg | | | | | 16 8:38 | | | | | | PM PST | | | | +-------+ +-------+---+---+ +---+---+ | | | +---+---+ + +-------+ +-------+---+---+ | diphenhydrAMINE (BENADRYL) oral | Given | 12/18/20 | 25 mg | | | | solution 25 mg 25 mg, oral, | | 16 12:58 | | | | | EVERY 6 HOURS, First dose on Nia | | AM PST | | | | | 07/22/16 at 1000, Until | | | | | | | Discontinued | | | | | | + +-------+ +-------+---+---+ +-------+ +-------+---+---+ | Given | 07/31/20 | 25 mg | | | | | 16 12:42 | | | | | | PM PST | | | | +-------+ +-------+---+---+ | Given | 07/31/20 | 25 mg | | | | | 16 6:19 | | | | | | AM [...] | 15 mL | | | | cllhfdyfxoYVSUA-isuxyelud-CLUMBP | | 16 9:57 | | | | | (SPECIAL MOUTHWASH) suspension | | AM PST | | | | | (compound) 10-15 mL 10-15 mL, | | | | | | | oral, EVERY 1 HOUR NEEDED, | | | | | | | Starting [facility] 07/15/16 at 1520, | | | | | | | Until 08/07/16 at 8, sore | | | | | | [...] +-------+---+---+ +---+---+ | | | +---+---+ + +---------+ + +---------+---+ | eculizumab (SOLIRIS) 1,200 mg | New Bag | 07/26/20 | 1,200 mg | 411.43 | | | in NaCl 0.9 % IV 1,200 mg, | | 16 11:05 | | mL/hr | | | intravenous, Administer over 35 | | AM PST | | | | | Minutes, ONCE, 1 dose, Mon | | | | | | | 07/26/16 at 1100, HIGH RISK | | | | | | | MEDICATION Allow to reach room | | | | | | | temperature prior to | | | | | | | administration. Monitor for at | | | | | | | least 1 hour following completion | | | | | | | of infusion for signs of | | | | | | | infusion reaction., | | | | | | + +---------+ + +---------+---+ +---+---+ | | | +---+---+ + +-------+ +--------+---+--------+ | enoxaparin (LOVENOX) injection | Given | 07/24/20 | 100 mg | | Right | | 100 mg 100 mg, subcutaneous, | | 16 8:40 | | | Leg | | EVERY 12 HOURS, First dose on Nia | | PM PST | | | | | 07/15/16 at 2100, Until | | | | | | | Discontinued | | | | | | + +-------+ +--------+---+--------+ +-------+ +--------+---+--------+ | Given | 07/24/20 | 100 mg | | Right | | | 16 9:30 | | | Leg | | | AM PST | | | | +-------+ +--------+---+--------+ | Given | 07/23/20 | 100 mg | | Right | | | 16 9:35 | | | Leg | | | PM PST | | | | +-------+ +--------+---+--------+ +---+---+ | | | +---+---+ + +-------+ +-------+---+ + | enoxaparin (LOVENOX) injection | Given | 07/28/20 | 40 mg | | Left Leg | | 40 mg 40 mg, subcutaneous, EVERY | | 16 9:37 | | | | | EVENING, First dose on Sun | | PM PST | | | | | 07/25/16 at 2100, Until | | | | | | | Discontinued | | | | | | + +-------+ +-------+---+ + +-------+ +-------+---+ + | Given | 07/27/20 | 40 mg | | Right | | | 16 9:05 | | | Buttocks | | | PM PST | | | | +-------+ +-------+---+ + | Given | 07/26/20 | 40 mg | | Left Leg | | | 16 9:47 | | | | | | PM [...] | +-------+ +-------+---+ + | Given | 20 | 40 mg | | Left Leg [...] | | | EVENING, First dose on Tue | | PM PST | | [...] +-------+---+---+ +---+---+ | | | +---+---+ + +---------+ +--------+-------+---+ | etoposide (VEPESID) 440 mg in | New Bag | 07/19/20 | 440 mg | 561 | | | NaCl 0.9 % IV 440 mg (rounded | | 16 12:00 | | mL/hr | | | from 438 mg = 200 mg/m2 | | PM PST | | | | | 2.19 m2 Treatment plan recorded | | | | | | | BSA), intravenous, Administer | | | | | | | over 2 Hours, EVERY 24 HOURS, 4 | | | | | | | doses, First dose on Tue07/16/16 | | | | | | | at 1130, Last dose on Tue07/19/16 | | | | | | | at 1130, HIGH RISK | | | | | | | MEDICATION-CHEMOTHERAPY | | | | | | | Irritant/Vesicant. Monitor BP | | | | | | | every 30 minutes during infusion. | | | | | | | If SBP is greater than 160 or | | | | | | | less than 90 slow rate to give | | | | | | | over 4 hours and notify MD. Day | | | | | | | -5, Day -4, Day -3 and Day -2 Use | | | | | | | non-PVC bag and tubing., | | | | | | + +---------+ +--------+-------+---+ +---------+ +--------+-------+---+ | New Bag | 07/18/20 | 440 mg | 561 | | | | 16 12:10 | | mL/hr | | | | PM PST | | | | +---------+ +--------+-------+---+ | New Bag | 07/17/20 | 440 mg | 561 | | | | 16 12:38 | | mL/hr | | | | PM PST | | | | +---------+ +--------+-------+---+ +---+---+ | | | +---+---+ + +-------+ [...] | +---+---+ + +-------+ +---------+---+ + | filgrastim-sndz (ESTELLAO) | Given | 08/07/20 | 480 mcg | | Left Arm | | injection 480 mcg 480 mcg, | | 16 12:25 | | | | | subcutaneous, EVERY EVENING AT | | PM PST | | | | | 1700, First dose on Tue07/26/16 | | | | | | | [...] +---+---+ + +-------+ +--------+---+---+ | fluconazole (DIFLUCAN) tablet | Given | 07/24/20 | 400 mg | | | | 400 mg 400 mg, oral, DAILY, | | 16 9:33 | | | | | First dose on Tue07/21/16 at | | AM PST | | | | | 0900, Until Discontinued | | | | | | + +-------+ +--------+---+---+ +-------+ +--------+---+---+ | Given | 07/23/20 | 400 mg | | | | | 16 8:50 | | | | | | AM PST | | | | +-------+ +--------+---+---+ | Given | 07/22/20 | 400 mg | | | | | 16 8:35 | | | | | | AM PST | | | | +-------+ +--------+---+---+ +---+---+ | | | +---+---+ + +---------+ +--------+-------+---+ | fosaprepitant (EMEND) 150 mg in | New Bag | 07/20/20 | 150 mg | 500 | | | NaCl 0.9 % IV 150 mg, | | 16 10:32 | | mL/hr | | | intravenous, Administer over 30 | | AM PST | | | | | Minutes, ONCE, 1 dose, Tue | | | | | | | 07/20/16 at 1030, Administer 30 | | | | | | | minutes prior to chemotherapy on | | | | | | | Day -1., | | | | | | + +---------+ +--------+-------+---+ +---+---+ | | | +---+---+ + +---------+ +-------+---+---+ | furosemide (LASIX) injection 20 | IV Push | 08/02/20 | 20 mg | | | | mg 20 mg, intravenous, ONCE, 1 | | 16 10:12 | | | | | dose, 08/02/16 at 0900 | | AM PST | | | | + +---------+ +-------+---+---+ + +---+ | | | + +---+ | glycerin-mineral oil (LUBRIDERM | | | SENSITIVE LANOLIN FREE) lotion | | | topical, EVERY 2 HOURS NEEDED, | | | Starting Nia 07/15/16 at 1520, | | | Until 08/07/16 at 1958, dry | | | skin | | + +---+ | | | + +---+ | haloperidol (HALDOL) liquid | | | 0.5-1.5 mg 0.5-1.5 mg, oral, | | | EVERY 4 HOURS NEEDED, Starting | | | 07/24/16 at 1213, Until Sat | | | 08/07/16 at 1958, alternate to | | | hmusrvvizdeeldt-HP-fp first line | | | is xlvozsghylz-TM-qt related to | | | agitation, restlessness, [...] | | | | 08/07/16 at 1958, deaccessing | | | | | | | line/port | | | | | | + +-------+ +-------+---+---+ +---+---+ | | | +---+---+ + +-------+ +--------+---+---+ | hydrocortisone (CORTEF) tablet | Given | 07/21/20 | 100 mg | | | | 100 mg 100 mg, oral, ONE TIME | | 16 11:38 | | | | | DURING VISIT, Starting Wed | | AM PST | | | | | 07/21/16 at 0000, Until Wed | | | | | | | 07/21/16 at 2359 | | | | | | + +-------+ +--------+---+---+ +---+---+ | | | +---+---+ + +-------+ +--------+---+---+ | HYDROmorphone (DILAUDID) | Given | 07/30/20 | 0.3 mg | | | | injection 0.2-0.5 mg 0.2-0.5 mg, | | 16 9:15 | | | | | intravenous, POSTPROCEDURE PRN, | | AM PST | | | | | Starting 07/30/16 at 0907, | | | | | | | Until 07/30/16 at 1028, | | | | | | | moderate pain while in Phase I | | | | | | | Recovery | | | | | | + +-------+ +--------+---+---+ + +---+ | | | + +---+ | HYDROmorphone (DILAUDID) | | | injection 1 dose, Starting Fri | | | 07/30/16 at 0912, Until Fri | | | 07/30/16 at 0915 | | + +---+ | | | + +---+ + + + +---+---+---+ | HYDROmorphone 0.5 mg/mL DINING ROOM BUSSER | Rate/Dos | 08/04/20 | | | | | infusion (ADULT) intravenous, | e Verify | 16 5:00 | | | | | CONTINUOUS, Starting 07/27/16 | | AM PST | | | | | at 1145, Until Tue08/04/16 at | | | | | | | 1118 | | | | | | + + + +---+---+---+ + + +---+---+---+ | Rate/Dose Verify | 08/04/20 | | | | | | 16 12:00 | | | | | | AM PST | | | | + + +---+---+---+ | Rate/Dose Verify | 08/03/20 | | | | | | 16 8:00 | | | | | | PM PST | | | | + + +---+---+---+ +---+---+ | | | +---+---+ + +---------+ +--------+---+---+ | levofloxacin (LEVAQUIN) IV 500 | New Bag | 07/28/20 | 500 mg | | | | mg 500 mg, intravenous, EVERY 24 | | 16 8:45 | | | | | HOURS, First dose on Tue | | AM PST | | | | | 07/28/16 at 0900, Until | | | | | | | Discontinued | | | | | | + +---------+ +--------+---+---+ +---+---+ | | | +---+---+ + +-------+ +--------+---+---+ | levoFLOXacin (LEVAQUIN) tablet | Given | 07/27/20 | 500 mg | | | | 500 mg 500 mg, oral, DAILY, | | 16 8:31 | | | | | First dose on 07/20/16 at | | AM PST | | | | | 0900, Until Discontinued | | | | | | + +-------+ +--------+---+---+ +-------+ +--------+---+---+ | Given | 07/26/20 | 500 mg | | | | | 16 10:01 | | | | | | AM PST | | | | +-------+ +--------+---+---+ | Given | 07/25/20 | 500 mg | | | | | 16 9:57 | | | | | | AM PST | | | | +-------+ +--------+---+---+ +---+---+ | | | +---+---+ + +-------+ +---+---+ + | lidocaine (LMX 4) 4 % cream | Given | 07/18/20 | | | Left Arm | | topical, TWICE DAILY, First dose | | 16 8:49 | | | | | on 07/18/16 at 1345, Until | | PM PST | | | | | Discontinued | | | | | | + +-------+ +---+---+ + +---+---+ | | | +---+---+ + [...] loperamide (IMODIUM A-D) 1 | Given | 08/04/20 | 2 mg | | | | mg/7.5 mL liquid 2 mg 2 mg, | | 16 10:50 | | | | | oral, NEEDED, Starting Sat | | AM PST | | | | | 07/24/16 at 1214, Until Sat | | | | | | | 08/07/16 at 8, diarrhea, after | | | | | | | each loose stool | | | | | | + +-------+ +------+---+---+ +-------+ +------+---+---+ | Given | 08/01/20 | 2 mg | | | | | 16 5:25 | | | | | | PM PST | | | | +-------+ +------+---+---+ | Given | 07/30/20 | 2 mg | | | | | 16 5:47 | | | | | | PM PST | | | | +-------+ +------+---+---+ +---+---+ | | | +---+---+ + +-------+ +--------+---+---+ | LORazepam (ATIVAN) injection | Given | 07/22/20 | 0.5 mg | | | | 0.5-1 mg 0.5-1 mg, intravenous, | | 16 8:30 | | | | | EVERY 6 HOURS NEEDED, Starting | | AM PST | | | | | 07/21/16 at 1633, Until Nia | | | | | | | 07/22/16 at 0946, anxiety, | | | | | | | nausea/vomiting | | | | | | + +-------+ +--------+---+---+ +-------+ +--------+---+---+ | Given | 07/21/20 | 0.5 mg | | | | | 16 6:40 | | | | | | PM PST | | | | +-------+ +--------+---+---+ +---+---+ | | | +---+---+ + +-------+ +--------+---+---+ | LORazepam (ATIVAN) injection | Given | 07/23/20 | 0.5 mg | | | | 0.5-1 mg 0.5-1 mg, intravenous, | | 16 9:50 | | | | | EVERY 6 HOURS, First dose on Nia | | AM PST | | | | | 07/22/16 at 1600, Until | | | | | | | Discontinued | | | | | | + +-------+ +--------+---+---+ +-------+ +--------+---+---+ | Given | 07/23/20 | 0.5 mg | | | | | 16 3:44 | | | | | | AM PST | | | | +-------+ +--------+---+---+ | Given | 07/22/20 | 1 mg | | | | | 16 10:28 | | | | | | PM PST | | | | +-------+ +--------+---+---+ +---+---+ | | | +---+---+ + +-------+ +--------+---+---+ | LORazepam (ATIVAN) injection | Given | 07/31/20 | 0.5 mg | | | | 0.5-1 mg 0.5-1 mg, intravenous, | | 16 1:47 | | | | | EVERY 6 HOURS NEEDED, Starting | | PM PST | | | | | 07/23/16 at 1530, Until Sun | | | | | | | 08/01/16 at 0912, anxiety, | | | | | | | nausea/vomiting | | | | | | + +-------+ +--------+---+---+ +-------+ +--------+---+---+ | Given | 07/31/20 | 0.5 mg | | | | | 16 9:09 | | | | | | AM PST | | | | +-------+ +--------+---+---+ | Given | 07/31/20 | 0.5 mg | | | | | 16 4:31 | | | | | | AM PST | | | | +-------+ +--------+---+---+ +---+---+ | | | +---+---+ + +-------+ +------+---+---+ | LORazepam (ATIVAN) injection 1 | Given | 08/03/20 | 1 mg | | | | mg 1 mg, intravenous, ONCE, 1 | | 16 8:27 | | | | | dose, Tu 08/03/16 at 0800 | | AM PST | | | | + +-------+ +------+---+---+ + +---+ | | | + +---+ | LORazepam (ATIVAN) injection 1 | | | dose, Starting 07/21/16 at | | | 1637, Until Tue07/21/16 at 1840 | | + +---+ | | | + +---+ + +-------+ +--------+---+---+ | LORazepam (ATIVAN) tablet 0.5 | Given | 08/07/20 | 0.5 mg | | | | mg 0.5 mg, oral, EVERY 6 HOURS | | 16 5:11 | | | | | NEEDED, Starting 08/01/16 | | AM PST | | | | | at 0911, Until 08/07/16 at | | | | | | | 1229, anxiety, nausea/vomiting | | | | | | + +-------+ +--------+---+---+ +-------+ +--------+---+---+ | Given | 08/06/20 | 0.5 mg | | | | | 16 9:38 | | | | | | AM PST | | | | +-------+ +--------+---+---+ | Given | 08/05/20 | 0.5 mg | | | | | 16 6:36 | | | | | | PM [...] + +-------+ +------+---+---+ | LORazepam (ATIVAN) tablet 1 mg | Given | 07/21/20 | 1 mg | | | | 1 mg, oral, EVERY 6 HOURS | | 16 12:38 | | | | | NEEDED, Starting Nia 07/15/16 at | | PM PST | | | | | 1552, Until 07/21/16 at 1634, | | | | | | | anxiety, nausea, vomiting | | | | | | + +-------+ +------+---+---+ +-------+ +------+---+---+ | Given | 07/21/20 | 1 mg | | | | | 16 3:00 | | | | | | AM PST | | | | +-------+ +------+---+---+ | Given | 07/20/20 | 1 mg | | | | | 16 9:39 | | | | | | PM [...] Until Sat | | | 08/07/16 at 1958, Mg level less | | | than or equal to 1.2 mg/dL | | + +---+ | | | + +---+ + +---------+ +--------+-------+---+ | melphalan HCl (ALKERAN) 300 mg | New Bag | 07/20/20 | 300 mg | 1320 | | | in NaCl 0.9 % IV (HSCT) 300 mg | | 16 11:42 | | mL/hr | | | (rounded from 306.6 mg = 140 | | AM PST | | | | | mg/m2 | | | | | | | 2.19 m2 Treatment plan recorded | | | | | | | BSA), intravenous, Administer | | | | | | | over 30 Minutes, ONCE, 1 dose, | | | | | | | 07/20/16 at 1100, HIGH-RISK | | | | | | | MEDICATION Infuse over 30 | | | | | | | minutes on Day -1 must infuse | | | | | | | within one hour of | | | | | | | reconstitution. Mix to | | | | | | | concentration of 0.45 mg/mL and | | | | | | | hand carry to BMT unit. Have | | | | | | | patient suck on ice chips at | | | | | | | least 5 minutes before, during | | | | | | | and for 30 minutes after | | | | | | | infusion., | | | | | | + +---------+ +--------+-------+---+ +---+---+ | | | +---+---+ + +-------+ +--------+---+---+ | metroNIDAZOLE (FLAGYL) tablet | Given | 07/24/20 | 500 mg | | | | 500 mg 500 mg, oral, THREE TIMES | | 16 9:33 | | | | | DAILY, First dose on Tue07/20/16 | | AM PST | | | | | at 0900, Until Discontinued | | | | | | + +-------+ +--------+---+---+ +-------+ +--------+---+---+ | Given | 07/23/20 | 500 mg | | | | | 16 9:01 | | | | | | PM PST | | | | +-------+ +--------+---+---+ | Given | 07/23/20 | 500 mg | | | | | 16 4:26 | | | | | | PM PST | | | | +-------+ +--------+---+---+ +---+---+ | | | +---+---+ + +-------+ +--------+---+---+ | metroNIDAZOLE 250 mg/5 mL | Given | 07/29/20 | 500 mg | | | | suspension (compound) 500 mg 500 | | 16 4:21 | | | | | mg, oral, THREE TIMES DAILY, | | PM PST | | | | | First dose on 07/24/16 at | | | | | | | 1600, Until Discontinued | | | | | | + +-------+ +--------+---+---+ +-------+ +--------+---+---+ | Given | 07/29/20 | 500 mg | | | | | 16 10:13 | | | | | | AM PST | | | | +-------+ +--------+---+---+ | Given | 07/28/20 | 500 mg | | | | | 16 8:54 | | | | | | PM PST | | | | +-------+ +--------+---+---+ +---+---+ | | | +---+---+ + +-------+ +------+---+---+ | morphine injection 1-3 mg 1-3 | Given | 07/27/20 | 2 mg | | | | mg, intravenous, EVERY 4 HOURS | | 16 10:58 | | | | | NEEDED, Starting 07/26/16 at | | AM PST | | | | | 1137, Until Tue07/27/16 at | | | | | | | 1154, severe pain | | | | | | + +-------+ +------+---+---+ +-------+ +------+---+---+ | Given | 07/27/20 | 2 mg | | | | | 16 7:18 | | | | | | AM PST | | | | +-------+ +------+---+---+ | Given | 07/27/20 | 2 mg | | | | | 16 2:07 | | | | | | AM PST | | | | +-------+ +------+---+---+ +---+---+ | | | +---+---+ + +---------+ + +---+---+ | NaCl 0.9 % solution 500-1,000 | New Bag | 07/21/20 | 1,000 mL | | | | mL, intravenous, NEEDED, | | 16 9:00 | | | | | Starting 07/21/16 at 0000, | | PM PST | | | | | Until Tue07/21/16 at 2359, | | | | | | | hypersensitivity reaction: | | | | | | | hypotension/anaphylaxis | | | | | | + +---------+ + +---+---+ +---+---+ | | | +---+---+ + +---------+ +-------+-------+---+ | NaCl 0.9 % solution 100 mL/hr, | New Bag | 07/20/20 | 100 | 100 | | | intravenous, CONTINUOUS, | | 16 4:30 | mL/hr | mL/hr | | | Starting [facility] 07/15/16 at 1800, | | PM PST | | | | | Until 07/21/16 at 1322 | | | | | | + +---------+ +-------+-------+---+ + + +-------+-------+---+ | Rate/Dose Verify | 07/20/20 | 100 | 100 | | | | 16 2:44 | mL/hr | mL/hr | | | | PM PST | | | | + + +-------+-------+---+ | Rate/Dose Verify | 07/20/20 | 100 | 100 | | | | 16 10:34 | mL/hr | mL/hr | | | | AM PST | | | | + + +-------+-------+---+ +---+---+ | | | +---+---+ + +---------+ +--------+---+---+ | NaCl 0.9 % solution 500 mL, | New Bag | 07/20/20 | 500 mL | | | | intravenous, ONCE, 1 dose, Tue | | 16 2:45 | | | | | 07/20/16 at 1515 | | PM PST | | | | + +---------+ +--------+---+---+ +---+---+ | | | +---+---+ + +---------+ +--------+---+---+ | NaCl 0.9 % solution 500 mL, | New Bag | 07/20/20 | 500 mL | | | | intravenous, ONCE, 1 dose, Tue | | 16 4:29 | | | | | 07/20/16 at 1700 | | PM PST | | | | + +---------+ +--------+---+---+ +---+---+ | | | +---+---+ + +---------+ +-------+-------+---+ | NaCl 0.9 % solution 125 mL/hr, | New Bag | 07/22/20 | 125 | 125 | | | intravenous, NEEDED, Starting | | 16 10:00 | mL/hr | mL/hr | | | 07/21/16 at 1330, Until Fri | | PM PST | | | | | 07/23/16 at 1640, Give 1L at | | | | | | | 125mL/hour for PO intake <2L by | | | | | | | 22:00 nightly | | | | | | + +---------+ +-------+-------+---+ +---+---+ | | | +---+---+ + +---------+ + +---+---+ | NaCl 0.9 % solution 1,000 mL, | New Bag | 07/23/20 | 1,000 mL | | | | intravenous, ONCE, 1 dose, Fri | | 16 10:55 | | | | | 07/23/16 at 1115 | | AM PST | | | | + +---------+ + +---+---+ +---+---+ | | | +---+---+ + + + + + +---+ | NaCl 0.9 % solution 75 mL/hr, | Rate/Dos | 08/02/20 | 75 mL/hr | 75 mL/hr | | | intravenous, CONTINUOUS, Starting | e Verify | 16 4:00 | | | | | 07/23/16 at 1715, Until Mon | | AM PST | | | | | 08/02/16 at 0856 | | | | | | + + + + + +---+ + + + + +---+ | Rate/Dose Verify | 08/02/20 | 75 mL/hr | 75 mL/hr | | | | 16 1:00 | | | | | | AM PST | | | | + + + + +---+ | New Bag | 08/01/20 | 75 mL/hr | 75 mL/hr | | | | 16 10:24 | | | | | | PM PST | | | | + + + + +---+ +---+---+ | | | +---+---+ + +---------+ + +-------+---+ | NaCl 0.9 % solution 1,000 mL, | New Bag | 07/24/20 | 1,000 mL | 999 | | | intravenous, ONCE, 1 dose, Sat | | 16 12:35 | | mL/hr | | | 07/24/16 at 1315 | | PM PST | | | | + +---------+ + +-------+---+ +---+---+ | | | +---+---+ + +---------+ + +-------+---+ | NaCl 0.9 % solution 1,000 mL, | New Bag | 07/24/20 | 1,000 mL | 999 | | | intravenous, ONCE, 1 dose, Sat | | 16 5:00 | | mL/hr | | | 07/24/16 at 1500 | | PM PST | | | | + +---------+ + +-------+---+ +---+---+ | | | +---+---+ + + + +--------+---+---+ | NaCl 0.9 % solution 500 mL, | Rate/Dos | 07/27/20 | 500 mL | | | | intravenous, ONCE, 1 dose, Tue | e Verify | 16 7:03 | | | | | 07/27/16 at 0830 | | PM PST | | | | + + + +--------+---+---+ + + +--------+---+---+ | Rate/Dose Verify | 07/27/20 | 500 mL | | | | | 16 2:44 | | | | | | PM PST | | | | + + +--------+---+---+ | New Bag | 07/27/20 | 500 mL | | | | | 16 8:31 | | | | | | AM PST | | | | + + +--------+---+---+ +---+---+ | | | +---+---+ + +---------+ +--------+---+---+ | NaCl 0.9 % solution 500 mL, | New Bag | 07/29/20 | 500 mL | | | | intravenous, ONCE, 1 dose, Nia | | 16 3:54 | | | | | 07/29/16 at 0415 | | AM PST | | | | + +---------+ +--------+---+---+ + +---+ | | | + +---+ | naloxone (NARCAN) injection | | | intravenous, NEEDED, Starting | | | 07/27/16 at 1106, Until Sat | | | 08/07/16 at 1958, over sedation | | + +---+ | | | + +---+ + +-------+ +---------+---+---+ | norethindrone (ORTHO MICRONOR) | Given | 08/07/20 | 0.35 mg | | | | tablet 0.35 mg 0.35 mg, oral, | | 16 9:02 | | | | | DAILY, First dose on [facility] 08/05/16 | | AM PST | [...] +---+---+ + +-------+ +-------+---+---+ | OLANZapine (ZYPREXA JACKIEIS) | Given | 08/06/20 | 10 mg [...] | +---+---+ + +-------+ +-------+---+---+ | OLANZapine (ZYPREXA) suspension | Given | 07/28/20 | 10 mg | | | | 10 mg 10 mg, oral, AT BEDTIME, | | 16 9:37 | | | | | First dose on 07/24/16 at | | PM PST | | | | | 2200, Until Discontinued | | | | | | + +-------+ +-------+---+---+ +-------+ +-------+---+---+ | Given | 07/27/20 | 10 mg | | | | | 16 8:17 | | | | | | PM PST | | | | +-------+ +-------+---+---+ | Given | 07/26/20 | 10 mg | | | | | 16 8:48 | | | | | | PM PST | | | | +-------+ +-------+---+---+ +---+---+ | | | +---+---+ + +-------+ +------+---+---+ | OLANZapine (ZYPREXA) tablet 5 | Given | 07/23/20 | 5 mg | | | | mg 5 mg, oral, AT BEDTIME | | 16 9:31 | | | | | NEEDED, Starting [facility] 07/15/16 at | | PM PST | | | | | 1552, Until 07/24/16 at 0853, | | | | | | | nausea, insomnia | | | | | | + +-------+ +------+---+---+ +-------+ +------+---+---+ | Given | 07/22/20 | 5 mg | | | | | 16 9:03 | | | | | | PM PST | | | | +-------+ +------+---+---+ | Given | 07/21/20 | 5 mg | | | | | 16 8:29 | | | | | | PM PST | | | | +-------+ +------+---+---+ +---+---+ | | | +---+---+ + +-------+ +-------+---+---+ | omeprazole (PRILOSEC) capsule | Given | 07/24/20 | 40 mg | | | | 40 mg 40 mg, oral, DAILY, First | | 16 9:33 | | | | | dose on Tue07/15/16 at 1530, | | AM PST | | | | | Until Discontinued | | | | | | + +-------+ +-------+---+---+ +-------+ +-------+---+---+ | Given | 07/23/20 | 40 mg | | | | | 16 8:50 | | | | | | AM PST | | | | +-------+ +-------+---+---+ | Given | 07/22/20 | 40 mg | | | | | 16 8:34 | | | | | | AM PST | | | | +-------+ +-------+---+---+ +---+---+ | | | +---+---+ + +-------+ +-------+---+---+ | omeprazole (PRILOSEC) capsule | Given | 08/01/20 | 40 mg | | | | 40 mg 40 mg, oral, BEFORE | | 16 6:32 | | | | | BREAKFAST, First dose on Sun | | AM PST | | | | | 07/25/16 at 1015, Until | | | | | | | Discontinued | | | | | | + +-------+ +-------+---+---+ +-------+ +-------+---+---+ | Given | 07/31/20 | 40 mg | | | | | 16 6:19 | | | | | | AM PST | | | | +-------+ +-------+---+---+ | Given | 07/30/20 | 40 mg | | | | | 16 12:04 | | | | | | PM PST | | | | +-------+ +-------+---+---+ +---+---+ | | | +---+---+ + +-------+ +-------+---+---+ | omeprazole (PRILOSEC) oral | Given | 08/03/20 | 40 mg | | | | suspension (compound) 40 mg 40 | | 16 7:24 | | | | | mg, oral, BEFORE BREAKFAST, First | | AM PST | | | | | dose on 08/02/16 at 0900, | | | | | | | Until Discontinued | | | | | | + +-------+ +-------+---+---+ +---+---+ | | | +---+---+ + +-------+ +------+---+---+ | ondansetron (ZOFRAN) injection | Given | 07/23/20 | 4 mg | | | | 4 mg 4 mg, intravenous, EVERY 12 | | 16 8:46 | | | | | HOURS NEEDED, Starting Wed | | AM PST | | | | | 07/21/16 at 0852, Until Fri | | | | | | | 07/23/16 at 1522, nausea/vomiting | | | | | | + +-------+ +------+---+---+ +-------+ +------+---+---+ | Given | 07/22/20 | 4 mg | | | | | 16 8:35 | | | | | | PM PST | | | | +-------+ +------+---+---+ | Given | 07/21/20 | 4 mg | | | | | 16 9:41 | | | | | | AM PST | | | | +-------+ +------+---+---+ +---+---+ | | | +---+---+ + +---------+ +------+---+---+ | ondansetron (ZOFRAN) injection | IV Push | 07/24/20 | 4 mg | | | | 4 mg 4 mg, intravenous, EVERY | | 16 8:30 | | | | | HOURS, First dose on Tue07/23/16 | | AM PST | | | | | at 2100, Until Discontinued | | | | | | + +---------+ +------+---+---+ +---+---+ | | | +---+---+ + [...] +---+---+ + +-------+ +------+---+---+ | ondansetron (ZOFRAN) liquid 8 | Given | 07/28/20 | 8 mg | | | | mg 8 mg, oral, EVERY 12 HOURS, | | 16 8:54 | | | | | First dose on 07/24/16 at | | PM PST | | | | | 2100, Until Discontinued | | | | | | + +-------+ +------+---+---+ +-------+ +------+---+---+ | Given | 07/27/20 | 8 mg | | | | | 16 8:32 | | | | | | AM PST | | | | +-------+ +------+---+---+ +---+---+ | | | +---+---+ + +-------+ +-------+---+---+ | ondansetron (ZOFRAN) tablet 24 | Given | 07/15/20 | 24 mg | | | | mg 24 mg, oral, ONCE, 1 dose, | | 16 7:54 | | | | | [place] 07/15/16 at 2030 | | PM PST | | | | + +-------+ +-------+---+---+ +---+---+ | | | +---+---+ + +-------+ +-------+---+---+ | ondansetron (ZOFRAN) tablet 24 | Given | 07/20/20 | 24 mg | | | | mg 24 mg, oral, EVERY 24 HOURS, | | 16 10:02 | | | | | 5 doses, First dose on Tue | | AM PST | | | | | 07/16/16 at 1000, Last dose on Tue | | | | | | | 07/20/16 at 1000 | | | | | | + +-------+ +-------+---+---+ +-------+ +-------+---+---+ | Given | 07/19/20 | 24 mg | | | | | 16 9:54 | | | | | | AM PST | | | | +-------+ +-------+---+---+ | Given | 07/18/20 | 24 mg | | | | | 16 10:22 | | | | | | AM PST | | | | +-------+ +-------+---+---+ +---+---+ | | | +---+---+ + +-------+ +------+---+---+ | ondansetron (ZOFRAN) tablet 8 | Given | 07/23/20 | 8 mg | | | | mg 8 mg, oral, EVERY 12 HOURS, | | 16 9:00 | | | | | First dose on Tue07/23/16 at | | PM PST | | | | | 2100, Until Discontinued | | | | | [...] | oxyCODONE (immediate release) | Given | 07/27/20 | 15 mg | | | | (ROXICODONE) liquid 5-15 mg 5-15 | | 16 10:58 | | | | | mg, oral, EVERY 6 HOURS | | AM PST | | | | | NEEDED, Starting 07/24/16 at | | | | | | | 1217, Until 07/27/16 at 1154, | | | | | | | moderate pain | | | | | | + +-------+ +-------+---+---+ +-------+ +-------+---+---+ | Given | 07/27/20 | 15 mg | | | | | 16 5:09 | | | | | | AM PST | | | | +-------+ +-------+---+---+ | Given | 07/26/20 | 15 mg | | | | | 16 8:34 | | | | | | PM PST | | | | +-------+ +-------+---+---+ +---+---+ | | | +---+---+ + +-------+ +------+---+---+ | oxyCODONE (immediate release) | Given | 07/23/20 | 5 mg | | | | (ROXICODONE) tablet 5-15 mg 5-15 | | 16 9:38 | | | | | mg, oral, EVERY 6 HOURS | | PM PST | | | | | NEEDED, Starting Nia 07/15/16 at | | | | | | | 1751, Until 07/24/16 at 1224, | | | | | | | moderate pain | | | | | | + +-------+ +------+---+---+ +-------+ +------+---+---+ | Given | 07/23/20 | 5 mg | | | | | 16 9:00 | | | | | | PM PST | | | | +-------+ +------+---+---+ | Given | 07/15/20 | 5 mg | | | | | 16 5:57 | | | | | | PM [...] mEq, oral, | | | NEEDED, Starting [facility] 07/15/16 at | | | 1520, Until 08/07/16 at 1957, | | | potassium level 3-3.4 mmol/L | | + +---+ | | | + +---+ + +---------+ +---------+---+---+ | potassium phosphate IV 30 mmol | New Bag | 07/21/20 | 30 mmol | | | | 30 mmol, intravenous, NEEDED, | | 16 9:49 | | | | | Starting [facility] 07/15/16 at 1520, | | AM PST | | | | | Until Tue07/30/16 at 1156, | | | | | | | Potassium less than or equal to | | | | | | | 3.4 mmol/L AND Phosphate less | | | | | | | than or equal to 2 mg/dL. | | | | | | + +---------+ +---------+---+---+ +---+---+ | | | +---+---+ + +---------+ +---------+---+---+ | potassium phosphate IV 30 mmol | New Bag | 08/03/20 | 30 mmol | | | | 30 mmol, intravenous, NEEDED, | | 16 12:56 | | | | | Starting Tue07/30/16 at 1154, | | PM PST | | | | | Until Tue08/04/16 at 0826, | | | | | | | Potassium less than or equal to | | | | | | | 3.4 mmol/L AND Phosphate less | | | | | | | than or equal to 2 mg/dL. | | | | | | + +---------+ +---------+---+---+ +---------+ +---------+---+---+ | New Bag | 08/02/20 | 30 mmol | | | | | 16 6:39 | | | | | | AM PST | | | | +---------+ +---------+---+---+ | New Bag | 08/01/20 | 30 mmol | | | | | 16 6:39 | | | | | | AM PST | | | | +---------+ +---------+---+---+ +---+---+ | | | +---+---+ + +---------+ +---------+-------+---+ | potassium phosphate IV 30 mmol | New Bag | 08/05/20 | 30 mmol | 52.5 | | | 30 mmol, intravenous, NEEDED, | | 16 4:34 | | mL/hr | | | Starting 08/04/16 at 0821, | | AM PST | [...] 0821, | | | Until 08/07/16 at 1958, | | | Potassium less than or equal to | | | 2.9 mmol/L AND Phosphate less | | | than or equal to 1.5 mg/dL. | | + +---+ | | | + +---+ + +-------+ +-------+---+---+ | prochlorperazine (COMPAZINE) | Given | 07/15/20 | 10 mg | | | | injection 5-10 mg 5-10 mg, | | 16 11:37 | | | | | intravenous, EVERY 4 HOURS | | PM PST | | | | | NEEDED, Starting [facility] 07/15/16 at | | | | | | | 1830, Until 07/21/16 at 1634, | | | | | | | give as first line agent for | | | | | | | acute or delayed nausea/vomiting | | | | | | + +-------+ +-------+---+---+ + +---+ | | | + +---+ | ramelteon (ROZEREM) tablet 8 mg | | | 8 mg, oral, AT BEDTIME | | | NEEDED, Starting [facility] 07/15/16 at | | | 1520, Until 08/07/16 at 1957, | | | insomnia | | + +---+ | | | + +---+ | saliva substitute (MOUTH KOTE) | | | spray 1 spray 1 spray, oral, | | | EVERY 1 HOUR NEEDED, Starting | | | [facility] 07/15/16 at 1520, Until Sat | | | 08/07/16 at 1957, dry mouth | | + +---+ | | | + +---+ | senna-docusate (SENOKOT S) | | | 8.6-50 mg 1-2 tablet 1-2 tablet, | | | oral, EVERY 12 HOURS NEEDED, | | | Starting [facility] 07/15/16 at 1520, | | | Until [...] ursodiol (ACTIGALL) capsule 300 | Given | 07/24/20 | 300 mg | | | | mg 300 mg, oral, TWICE DAILY, | | 16 9:33 | | | | | 55 doses, First dose on Tue | | AM PST | | | | | 07/15/16 at 2100, Last dose on Tue | | | | | | | 08/11/16 at 2100 | | | | | | + +-------+ +--------+---+---+ +-------+ +--------+---+---+ | Given | 07/23/20 | 300 mg | | | | | 16 9:00 | | | | | | PM PST | | | | +-------+ +--------+---+---+ | Given | 07/23/20 | 300 mg | | | | | 16 8:49 | | | | | | AM [...] | +---+---+ + +-------+ +--------+---+---+ | ursodiol 60 mg/mL suspension | Given | 07/27/20 | 300 mg | | | | (compound) 300 mg 300 mg, oral, | | 16 8:17 | | | | | TWICE DAILY, First dose on Sat | | PM PST | | | | | 07/24/16 at 2100, Until | | | | | | | Discontinued | | | | | | + +-------+ +--------+---+---+ +-------+ +--------+---+---+ | Given | 07/27/20 | 300 mg | | | | | 16 8:32 | | | | | | AM PST | | | | +-------+ +--------+---+---+ | Given | 07/26/20 | 300 mg | | | | | 16 8:37 | | | | | | PM PST | | | | +-------+ +--------+---+---+ +---+---+ | | | +---+---+ + +-------+ +--------+---+---+ | valACYclovir (VALTREX) tablet | Given | 07/24/20 | 500 mg | | | | 500 mg 500 mg, oral, TWICE | | 16 9:33 | | | | | DAILY, First dose on [facility] 07/22/16 | | AM PST | | | | | at 0900, Until Discontinued | | | | | | + +-------+ +--------+---+---+ +-------+ +--------+---+---+ | Given | 07/23/20 | 500 mg | | | | | 16 9:01 | | | | | | PM PST | | | | +-------+ +--------+---+---+ | Given | 07/23/20 | 500 mg | | | | | 16 8:50 | | | | | | AM [...] +--------+---+---+ +---+---+ | | | +---+---+ + +---------+ + +---+---+ | vancomycin (VANCOCIN) IV 1,250 | New Bag | 08/05/20 | 1,250 mg | | | | mg 1,250 mg, intravenous, EVERY | | 16 10:15 | | | | | 8 HOURS, First dose on Tue | | AM PST | | | | | 08/04/16 at 0200, Until | | | | | | | Discontinued | | | | | | + +---------+ + +---+---+ +---------+ + +---+---+ | New Bag | 08/05/20 | 1,250 mg | | | | | 16 2:15 | | | | | | AM PST | | | | +---------+ + +---+---+ | New Bag | 08/04/20 | 1,250 mg | | | | | 16 6:13 | | | | | | PM PST | | | | +---------+ + +---+---+ +---+---+ | | | +---+---+ + +---------+ + +-------+---+ | vancomycin (VANCOCIN) IV 1,750 | New Bag | 07/30/20 | 1,750 mg | 296 | | | mg 1,750 mg, intravenous, EVERY | | 16 2:45 | | mL/hr | | | 12 HOURS, First dose on Nia | | PM PST | | | | | 07/29/16 at 1315, Until | | | | | | | Discontinued | | | | | | + +---------+ + +-------+---+ +---------+ + +-------+---+ | New Bag | 07/30/20 | 1,750 mg | 296 | | | | 16 2:36 | | mL/hr | | | | AM PST | | | | +---------+ + +-------+---+ | New Bag | 07/29/20 | 1,750 mg | | | | | 16 2:58 | | | | | | PM PST | | | | +---------+ + +-------+---+ +---+---+ | | | +---+---+ + +---------+ + +---+---+ | vancomycin (VANCOCIN) IV 1,750 | New Bag | 08/03/20 | 1,750 mg | | | | mg 1,750 mg, intravenous, EVERY | | 16 6:27 | | | | | 8 HOURS, First dose on Fri | | AM PST | | | | | 07/30/16 at 2245, Until | | | | | | | Discontinued | | | | | | + +---------+ + +---+---+ +---------+ + +---+---+ | New Bag | 08/02/20 | 1,750 mg | | | | | 16 10:58 | | | | | | PM PST | | | | +---------+ + +---+---+ | New Bag | 08/02/20 | 1,750 mg | | | | | 16 3:23 | | | | | | PM PST | | | | +---------+ + +---+---+ +---+---+ | | | +---+---+ + +---------+ + +---+---+ | vancomycin (VANCOCIN) IV 1,750 | New Bag | 08/03/20 | 1,750 mg | | | | mg 1,750 mg, intravenous, EVERY | | 16 2:53 | | | | | 8 HOURS, First dose on Tue | | PM PST | | | | | 08/03/16 at 1430, Until | | | | | | | Discontinued | | | | | | + +---------+ + +---+---+ + +---+ | | | + +---+ | vancomycin (VANCOCIN) IV 1,750 | | | mg 1,750 mg, intravenous, EVERY | | | 12 HOURS, First dose on Sat | | | 08/07/16 at 2100, Until | | | Discontinued | | + +---+ | | | + +---+ + +---------+ + +---+---+ | vancomycin (VANCOCIN) IV 2,000 | New Bag | 08/07/20 | 2,000 mg | | | | mg 2,000 mg, intravenous, EVERY | | 16 8:58 | | | | | 12 HOURS, First dose on Nia | | AM PST | | | | | 08/05/16 at 2100, Until | | | | | | | Discontinued | | | | | | + +---------+ + +---+---+ +---------+ + +---+---+ | New Bag | 08/06/20 | 2,000 mg | | | | | 16 9:22 | | | | | | PM PST | | | | +---------+ + +---+---+ | New Bag | 08/06/20 | 2,000 mg | | | | | 16 9:38 | | | | | | AM PST | | | | +---------+ + +---+---+ +---+---+ | | | +---+---+ + +-------+ +--------+---+---+ | vancomycin 50 mg/mL oral | Given | 08/05/20 | 125 mg | | | | solution (compound) 125 mg 125 | | 16 9:49 | | | | | mg, oral, TWICE DAILY, First dose | | AM PST | | | | | on Nia 07/29/16 at 2100, Until | | | | | | | Discontinued | | | | | | + +-------+ +--------+---+---+ +-------+ +--------+---+---+ | Given | 08/04/20 | 125 mg | | | | | 16 9:08 | | | | | | PM PST | | | | +-------+ +--------+---+---+ | Given | 08/04/20 | 125 mg | | | | | 16 9:10 | | | | | | AM PST | | | | +-------+ +--------+---+---+ +---+---+ | | | +---+---+ documented in this encounter
--- OUTSIDE RECORDS SUMMARY | ~2019-01-06 | XMS | Encounter Summary ---
Demographics + + + | Address | [address] | | | [place] [address] | + + + | Home Phone [...] Team Providers + +------+ + | Care Osha Inspector Name | Role | Phone | + +------+ + | Aashish Hilton MD | PCP | | + +------+ + Encounter Details +--------+ + + + + | Date | Type | Department | Care Team | Description | +--------+ + + + + | 08/20/ | Pharmacy | Specialty Pharmacy | | | | 2016 | Visit | Services [address] | | | | | [address] | | | | | | [place], [place] | | | | | | [address] | | | | | | [phone] | | | +--------+ + + + [...]
--- OUTSIDE RECORDS SUMMARY | ~2019-01-06 | XMS | Encounter Summary ---
Demographics + + + | Address | [address] | | | [place] [address] | + + + | Home Phone | | + + + | Preferred Language | Unknown | + + + | Marital Status | | + + + | Restoration Affiliation | NON | + + + | Race | White | + + + | Ethnic Group | Not or | + + + Author + + + | Author | [facility] | + + + | Organization | [facility] | + + + | Address [...] Providers + +------+ + | Care Sales And Marketing Engineer Name | Role | Phone | + +------+ + | Aashish Hilton MD | PCP | | + +------+ + Encounter Details +--------+---------+ + + + | Date | Type | Department | Care Team | Description | +--------+---------+ + + + | 08/27/ | Office | Center for | Quirino Moreno I, | Nodular sclerosis | | 2017 | Visit | Hematologic | ,PhD [address] [facility] | Hodgkin lymphoma of | | | | Malignancies at | [facility] [address] | lymph nodes of | | | | [facility] | [place], [place] | multiple regions | | | | [address] | [address] | (HCC) (Primary Dx) | | | | [facility] | [phone] | | | | | Mailcode: [id number] | | | | | | [facility] | | | | | | [place], [place] | | | | | | [address] | | | | | | [phone] | | | +--------+---------+ + + + [...] this encounter Patient Instructions Patient Instructions Maura Lai, RN - 08/27/2016 11:15 AM PSTGood morning Meggan, you are doing well! Your counts are improving slowly. At this time, you will resume your care w reynaldo Hilton in [facility]. You will start brentuximab maintenance therapy once your c ounts have stabilized. A PET scan will be obtained 2-3 months after transplant. You can keep the PICC line in place and once a port is scheduled you can have the PICC anusha noy. You will continue the pentamidine for the next 6 months. You should plan on seeing Dr. Hilton next week. If you have any questions, or if you need prescription refills, or are experiencing any sym ptoms or side effects please call our pilot instructor at [phone] Check out at the lead front desk agent today and make your next appointments. You can also call the s brittanydulers at [phone]. Jeanette Lai RN, BMTCN Oncology Nurse Coordinator [facility] [address] [place] [id number] tel [phone] fax [phone] email [email or web address] documented in this encounter Progress Notes Quirino Moreno MD,PhD - 08/27/2016 11:15 AM PSTFormatting of this note might be different fr om the original. [facility] Hemat[facility] Malignancies Assessment & Plan: 20 y.o. 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 - s/p pediatric A(B)VE-PC x4 (bleo omit c2-4) to CR then low dose RT 21 Gy - early relapse, Bx+, s/p GDP x3 to CR2 Now s/p autoBMT with BEAM Would start brentuximab maintenance when CBC stable (ANC >1500 without GCSF and Plt > 75k) - meets high risk criteria due to early relapse - 1.8 mg/kg (capped at 180 mg) every 3 wks up to 1 yr post-BMT - if develop grade 2 neuropathy or cytopenias, would hold 2 wks then dose reduce to 1.2 mg/ kg and/or delay to every 4 wks Repeat PET/CT 3-4 months after autoBMT - then again at end of maintenance Odds of durable cure ~45% with autoBMT with improvement to ~65% if add maintenance If progress, would re-biopsy and consider nivolumab if confirmed BMT - high stem cell dose 7.3 but slow/marginal engraftment of CBC - doubt active HUS given CH50 low - likely related to severe MRSA infxn, prolonged abx, marginal nutrition # follow CBC weekly until stable - repeat GCSF prn ANC <=1000 ID # PCP prophylaxis: pentamidine 300 mg iv every 4 wks for 6 months - last given 08/23, next due 09/20 # HSV/VZV prophylaxis: acyclovir for 1 yr or 6 months post-maintenance, whichever longer # MRSA infxn during BMT, s/p PORT & tunneled line removal & course of Vanco # hx C Diff, s/p prophylaxis during neutropenia & broad spectrum abx # reimmunizations start 3-6 months post-BMT Atypical HUS - genetic studies PENDING per benign heme (Fernanda) - for now, continue ecalizumab 1200 mg every 2 wks - last given 08/23, next due 09/06 # consider stopping ecalizumab 3-4 months post-BMT if genetic studies negative DVTs - continue LMWH prophylaxis - switch to apixaban when Plts stable >50k - consider stopping anticoag 6 months post-BMT FEN - improving po intake - start Mg supplement Access - currently PICC - need weekly flushes # switch to PORT when Plts recover F/u - OK to return home to [place] - f/u with Dr Hilton next wk Quirino Moreno MD [email or web address] Local oncologist: Aashish Hilton MD ([facility]) Benign Hematology: Jim Michael MD ([facility]) Pediatric Heme/Onc: Anh Moreland MD ([place]) Nephrology: Raghav [place] MD ([place]) 04/2015 presented with flank pain CT C/A/P: 11 cm anterior mediastinal mass, pleural effusion & L supraclav adenopathy Needle bx: classical hodgkins, nodular sclerosing type Thoracentesis: reactive/benign BMBx: neg PET: bulky mediastinal mass, SUV 16; bilateral neck SUV 15; also R>L pleural effusion 05/10/15 began ABVE-PC (as per pediatric [id number]) via femoral line 05/16/15 presented with sepsis [...] L neck: classical Hodgkins Above therapy in [place] -> moved to [place] Continued on ecalizumab per benign heme (Fernanda) GDP x3 06/2017 CR by PET Reece placed GCSF stem cell mobilization: 7.3 x10^6 cd34/kg 07/21/16 autoBMT with BEAM - complicate by neutropenic fever & MRSA bacteremia - Reece & PORT removed, eventually replaced with PICC when BCxs cleared - slow count recovery post-BMT Starting to feel better Minimal nausea and no diarrhea Chronic back pain No bleeding, fevers, infxns Complete ROS otherwise negative Central Access: PICC Allergies Allergen Reactions Promethazine Pruritus, Rash and Dystonia Sulfa (Sulfonamide Antibiotics) Hives and Dyspnea Sulfacetamide Sodium Hives Compazine [Prochlorperazine] Agitation Current Outpatient Prescriptions Medication Sig acyclovir 200 mg/5 mL oral suspension Take 20 mL by mouth once daily. enoxaparin 40 mg/0.4 mL subcutaneous syringe Inject 0.4 mL under the skin (SUBC) once d aily in the evening. Indications: Deep Venous Thrombosis escitalopram oxalate (LEXAPRO) 10 mg oral tablet Take 1 tablet by mouth once daily in t he evening. famotidine 20 mg oral tablet Take 1 tablet by mouth two times daily. LORazepam 0.5 mg oral tablet Take 1 tablet by mouth every six hours as needed for anxie ty (nausea, vomiting). magnesium oxide 400 mg elemental (667.67 mg total salt) oral capsule Take 1 capsule by mouth two times daily. norethindrone 0.35 mg oral tablet Take 1 tablet by mouth once daily. OLANZapine 10 mg oral tablet,disintegrating Dissolve 1 tablet in mouth once daily at [facility]. ondansetron (ZOFRAN, HYDROCHLORIDE,) 8 mg oral tablet Take 1 tablet by mouth every t welve hours as needed for nausea/vomiting. oxyCODONE, immediate release, 5 mg oral tablet Take 1 to 2 tablets by mouth every six h ours as needed for moderate pain. senna-docusate 8.6-50 mg oral tablet Take 1-2 tablets by mouth every twelve hours as ne eded. Indications: Constipation Past Medical History Diagnosis Date Anxiety C. 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 No cig/drugs Physical Exam: PS ECOG 1 BP 123/86 | Pulse 96 | Temp (Src) 36.9 C (98.4 F) (Oral) | RR 18 | Wt 96.3 kg (212 lb 4 .9 oz) | SpO2 100% | BMI 30.46 kg/(m^2) Constitutional: well appearing Eyes: anicteric ENT: oropharynx clear Lungs: clear to auscultation Cardiac: regular rate and rhythmn Abdomen: soft, nontender, no mass Musculoskeletal: no edema Skin: no bruising Neuro: motor nonfocal Nodes: NO palpable adenopathy Recent Labs 08/20/16 1307 08/23/16 1333 08/27/16 1005 WBC 4.0* 2.5* 3.2* HB 7.3* 8.1* 8.0* HCT 20.9* 23.7* 23.4* PLT 20* 33* 37* NEUTROPHILCO 2.3 1.1* 1.5* LYMPHSAB 1.0* 0.9* 1.2 Recent Labs 06/30/16 1209 08/23/16 1305 08/23/16 1335 08/27/16 0942 08/27/16 1013 NA -- < > -- 137 -- 137 K -- < > -- 3.9 -- 3.9 BICARB -- < > -- 26 -- 23 BUN -- < > -- 9 -- 10 CR -- < > -- 0.9 -- 1.3* GLU -- < > -- 111* -- 96 CA -- < > -- 9.1 -- 9.5 AP -- < > 114* -- -- 88* ALT -- < > 17 -- -- 20 AST -- < > 22 -- -- 30 TBILI -- < > 0.4 -- -- 0.6 ALB -- < > 3.5 -- -- 3.8 LDTOTAL 270* < > 231 -- 264* -- ESR 33* -- -- -- -- -- < > = values in this interval not displayed. 07/28/2016 08/02/2016 08/04/2016 08/23/2016 08/27/2016 COMPLEMENT CH50, TOTAL 0 (L) 3 (L) 4 (L) 31 (L) 0 (L) Bone marrow, core biopsy 06/21/16 -Normocellular bone marrow without evidence of Hodgkin lymphoma. -Relative erythroid hyperplasia and mildly increased megakaryocytes. -Increased storage iron. Left cervical lymph node, biopsy ([id number], 03/16/2016): - Nodular sclerosis, classical Hodgkin's lymphoma - positive for CD15 and CD30. PAX-5 dim and CD20 negative VENOUS DUPLEX LOWER EXTREMITY BILAT 07/16/16 RIGHT: There is deep vein thrombosis in an axial calf vein without extension into the popliteal vein. No other thrombi were detected. LEFT: There is no deep or superficial vein thrombosis identified PET/CT 06/28/16 1. No obvious recurrent malignant [...] fat in the upper chest and back. PFTs 06/25/16 Spirometry is consistent with normal [...]
--- OUTSIDE RECORDS SUMMARY | ~2019-01-06 | XMS | Encounter Summary ---
Demographics + + + | Address | [address] | | | [place] [address] | + + + | Home Phone | | + + + | Preferred Language | Unknown | + + + | Marital Status | | + + + | Caodaism Affiliation | NON | + + + [...] Team Providers + +------+ + | Care Warehouse Insulation Worker Name | Role | Phone | + +------+ + | Aashish Hilton MD | PCP | | + +------+ + Encounter Details +--------+ + + + + | Date | Type | Department | Care Team | Description | +--------+ + + + + | 08/05/ | Pharmacy | Specialty Pharmacy | | | | 2015 | Visit | Services [address] | | | | | | [address] | | | | | | [place], [place] | | | | | | [address] | | | | | | [phone] | | | +--------+ + + + [...]
--- OUTSIDE RECORDS SUMMARY | ~2019-01-06 | XMS | Encounter Summary ---
Demographics + + + | Address | [address] | | | [place] [address] | + + + | Home Phone | | + + + | Preferred Language | Unknown | + + + | Marital Status | | + + + | Temple Affiliation | NON | + + + | Race | White | + + + | Ethnic Group | Not or | + + + Author + + + | Author | [facility] | + + + | Organization | [facility] | + + + | [...] Team Providers + +------+ + | Care Scaleman Name | Role | Phone | + +------+ + | Aashish Hilton MD | PCP | | + +------+ + Encounter Details +--------+ + + + + | Date | Type | Department | Care Team | Description | +--------+ + + + + | 07/13/ | Document-Sc | UNKNOWN DEPARTMENT | Unknown . | | | 2016 | ann | [address] [facility] | | | | | | [facility] | | | | | | [place], [place] | | | | | | [address] | | | +--------+ + + + [...]
--- OUTSIDE RECORDS SUMMARY | ~2019-01-06 | XMS | Encounter Summary ---
Demographics + + + | Address | NEED ADDRESS | | | [place] [address] | + + + | Home Phone | | + + + | Preferred Language | Unknown | + + + | Marital Status | Single | + + + | Congregation Affiliation | Unknown | + + + | Race | Unknown | + + + | Ethnic Group | Unknown | + + + Author + + + | Author | [facility] | | | and [place] | + + + | Organization | [facility] | | | and [place] | + + + | Address | Unknown | + + + | Phone | Unavailable | + + + Support + + + + + | Name | Relationship | Address | Phone | + + + + + | Qamar Wynne | ECON | [address] | | | | | [place] | | | | | [address] | | + + + + + | Merlyn Otero | ECON | [address] | | | | | [place] | | | | | [address] | | + + + + + Care Team Providers + +------+ + | Care Manager Parking Name | Role | Phone | + [...] + + | 11/18/ | Refill | [facility] | [place], | Medication Refill | | 2019 | | [facility] | Aashish Carpenter MD [address] | | | | [address] [address] | [facility] | | | | | [address] [facility] | [place] [address] | | | | | [place] [address] | [phone] | | | | | [phone] | | | +--------+--------+ + + + [...] | | | | | | [place] [address] | | | | | | [phone] | | | | | | | | +--------+ + + + + | 01/22/ | Appointment | Oncology | Lida, | | | 2018 | | | MD [address] | | | | | | [address] | | | | | | [place] [address] | | | | | | [phone] | | | | | | | | +--------+ + + + + documented as of this encounter Visit Diagnoses + + | Diagnosis | + + | Hodgkin's disease, nodular sclerosis, of intrathoracic lymph nodes (HCC) - Primary | | Hodgkin's disease, nodular sclerosis, of intrathoracic lymph nodes | + + documented in this encounter"
--- OUTSIDE RECORDS SUMMARY | ~2019-01-06 | XMS | Encounter Summary ---
Demographics + + + | Address | [address] | | | [place] [address] | + + + | Home Phone | | + + + | Preferred Language | Unknown | + + + | Marital Status | | + + + | Hinduism Affiliation | NON | + + + | Race | White | + + + | Ethnic Group | Not or | + + + Author + + + | Author | [facility] | + + + | Organization | [facility] | + + + | Address [...] Team Providers + +------+ + | Care Illusionist Name | Role | Phone | + [...] + + | 07/05/ | Hospital | [facility] [address] | Quirino Moreno I, | | | 2015 | Encounter | [address] | ,PhD [address] | | | | | 11B [facility] | [address] | | | | | [place] [address] | [place], [place] | | | | | [phone] | [address] | | | | | | [phone] | | | | | | | [...] at the insertion site. Interventional Radiology Office: [phone] or you may call the Hospital Director Vaccine at [phone] and ask to have the Interventional Ra diology Fellow transportation manager paged if it is after hours, weekends, or holidays. AttachmentsThe following attachments cannot be sent through Care Everywhere.[facility]: [facility] [employer] BLOODSTREAM INFECTIONS (YEMENI)documented in this encounter Medications at Time of [...] moderate sedation MD Freedom Cordova MD Pager: [phone] [facility] Past Medical History Diagnosis Date Anxiety [...] Primary | | | | | | transcription typist: Freedom Cervantes, | | | | | | M.D. Block Captain | | | | | | attending transcription typist: | | | | | | Christina [...] | | | | | | 14 Puerto Rican peel away | | | | | [...] 13.5 | | | | | | [place]ican 23 cm tip-to-cuff | | | | [...] + + + | MARICEL KILGORE | [address] | [place], [place] | | | [facility] OF [facility] | [address] | [address] | | | TESTS | | | [...]
--- OUTSIDE RECORDS SUMMARY | ~2019-01-06 | XMS | Encounter Summary ---
Demographics + + + | Address | [address] | | | [place] [address] | + + + | Home Phone | | + + + | Preferred Language | Unknown | + + + | Marital Status | | + + + | Advent Affiliation | NON | + + + [...] Team Providers + +------+ + | Care Field Enumerator Name | Role | Phone | + [...] | | | | | Ave | [place], [place] | | | | | | [place], [place] | [address] | | | | | | [address] | Phone: | | | | | | Phone: | [phone] | | | | | | [phone] | Fax: | | | | | | Fax: | [phone] | | | | | | [phone] | | +--------+--------+ + + + + [...] | | Transfusion | | | | [facility] | | (Platelets) | | | | Mailcode: [id number] | | | | | | [address]anne [address] | | | | | | [place], [place] | | | | | | [address] | | | | | | [phone] | | | +--------+ + + + [...] was instructed to check out at the help desk operator prior to tiana ving the clinic. Patient d/c d ambulatory in stable condition. Next Appointment in [facility] JOANNA HAGEN is on 08/20/16 at 1:15 [...] section. | | | | | status ([facility]) | | + +--------+ + + + | COLIN IGG | Routin | 08/18/2016 | Autologous bone | Results for this | | | e | 2:30 PM | marrow | procedure are in the | | | | PST | transplantation | results section. | | | | | status ([facility]) | | + +--------+ + + + [...] section. | | | | | status ([facility]) | | + +--------+ + + + | TYPE AND SCREEN | Urgent | 08/18/2016 | Autologous bone | Results for this | | | | 2:30 PM | marrow | procedure are in the | | | | PST | transplantation | results section. | | | | | status ([facility]) | | + +--------+ + + + | ABO & RH TYPE | Urgent | 08/18/2016 | Autologous bone | Results for this | | | | 2:30 PM | marrow | procedure are in the | | | | PST | transplantation | results section. | | | | | status ([facility]) | | + +--------+ + + + [...] MARICEL KILGORE | [address] | [place], [place] | | | [facility] OF [facility] | [address] | [address] | | | TESTS | | | [...] [facility] | [address] | [place] [address] | | | SERVICES, | [address] [...] | + + + + + | [facility] | [address] | [place] [address] | | | SERVICES, | [address] [...] [facility] | [address] | [place] [address] | | | SERVICES, | [address] [...] [facility] | [address] | [place] [address] | | | SERVICES, | [address] [...] [facility] | [address] | [place] [address] | | | SERVICES, | [address] [...] [facility] | [address] | [place] [address] | | | SERVICES, | [address] [...] + + + + | PRODUCT | [id number] | | [facility] | | | UNIT [...] + + + + | EXPIRATION | [id number] | | [facility] | | | DATE [...] + + + + | BLOOD | [id number] | | [facility] | | | PRODUCT [...] [facility] | [address] | [place] [address] | | | SERVICES, | [address] [...] MARICEL KILGORE | [address] | [place], [place] | | | [facility] | [address] | [address] | | | TESTS | | | [...]
--- OUTSIDE RECORDS SUMMARY | ~2019-01-06 | XMS | Encounter Summary ---
Demographics + + + | Address | [address] | | | [place] [address] | + + + | Home Phone | | + + + | Preferred Language | Unknown | + + + | Marital Status | | + + + | Anabaptist Affiliation | NON | + + + [...] Team Providers + +------+ + | Care Farmworker Fruit Name | Role | Phone | + +------+ + | Aashish Hilton MD | PCP | | + +------+ + Encounter Details +--------+ + + + + | Date | Type | Department | Care Team | Description | +--------+ + + + + | 08/04/ | Pound Keeper | Center for | Fany Phillips | Autologous bone | | 2016 | | Hematologic | S, CLINICAL LAB CLERK [address] [facility] | marrow | | | | Malignancies at | [address] [facility] [address] | transplantation | | | | [facility] | [place], [place] | status (HCC) | | | | [address] [facility] | [address] | (Primary Dx); | | | | [address] | [phone] | Nodular sclerosis | | | | Mailcode: UHN73A | | Hodgkin lymphoma of | | | | [facility] | | lymph nodes of | | | | [place], [place] | | multiple regions | | | | [address] | | (HCC) | | | | [phone] | | | +--------+ + + + [...] of this encounter Results BMP + MAG, POC CHM (08/10/2016 3:18 [...] TAEAM | [address] | [place], [place] | | | ALYSSA POINT [facility] CARE | [facility] | [address] | | | TESTS | | | [...] [facility] | | | | | | EMRRY SHAH | | | | | | [...] + + + + | [facility] | [address] | [place], [place] | | | [facility] OF [facility] | [address] | [address] | | | TESTS | | | [...] + + + + + | MARICEL [facility] | [address] | [place] [address] | | | SERVICES, CORE | [address] [...] (HCC) | + + documented in this encounter"
--- OUTSIDE RECORDS SUMMARY | ~2019-01-06 | XMS | Encounter Summary ---
Demographics + + + | Address | [address] | | | [place] [address] | + + + | Home Phone | | + + + | Preferred Language | Unknown | + + + | Marital Status | | + + + | Confucianism Affiliation | NON | + + + | Race | White | + + + | Ethnic Group | Not or | + + + Author + + + | Author | [facility] | + + + | Organization | [facility] | + + + | [...] Team Providers + +------+ + | Care Freight Team Associate Name | Role | Phone | + +------+ + | Aashish Hilton MD | PCP | | + +------+ + Encounter Details +--------+ + + + + | Date | Type | Department | Care Team | Description | +--------+ + + + + | 08/07/ | Pharmacy | Specialty Pharmacy | | | | 2015 | Visit | Services [address] | | | | | | [address] | | | | | | [place], [place] | | | | | | [address] | | | | | | [phone] | | | +--------+ + + + [...]
--- OUTSIDE RECORDS SUMMARY | ~2019-01-06 | XMS | Encounter Summary ---
Demographics + + + | Address | [address] | | | [place] [address] | + + + | Home Phone | | + + + | Preferred Language | Unknown | + + + | Marital Status | | + + + | Samaritan Affiliation | NON | + + + | Race | White | + + + | Ethnic Group | Not or | + + + Author + + + | Author | [facility] | + + + | Organization | [facility] | + + + | Address | [...] Team Providers + +------+ + | Care Bistro Attendant Name | Role | Phone | + +------+ + | Aashish Hilton MD | PCP | | + +------+ + Encounter Details +--------+ + + + + | Date | Type | Department | Care Team | Description | +--------+ + + + + | 08/06/ | Pharmacy | Specialty Pharmacy | | | | 2015 | Visit | Services [address] | | | | | | [address] | | | | | | [place], [place] | | | | | | [address] | | | | | | [phone] | | | +--------+ + + + [...]
--- OUTSIDE RECORDS SUMMARY | ~2019-01-06 | XMS | Encounter Summary ---
Demographics + + + | Address | [address] | | | [place] [address] | + + + | Home Phone [...] + + + | Author | [facility] | + + + | Organization | [facility] | + + + | Address | [...] Team Providers + +------+ + | Care Head Men'S Golf Coach Name | Role | Phone | + [...] | Visit | Hematologic | ,PhD [address] [facility] | Hodgkin lymphoma of | | | | Malignancies at | [facility] [address] [facility] [address] | lymph nodes of | | | | [facility] | [place], [place] | multiple regions | | | | [address] [facility] | [address] | (HCC) (Primary Dx) | | | | [address] [facility] | [phone] | | | | | Mailcode: [id number] | | | | | | [facility] | | | | | | [place], [place] | | | | | | [address] | | | | | | [phone] | | | +--------+---------+ + + + [...] resume your care w reynaldo Hilton in [facility]. You will start brentuximab maintenance therapy once [...] ptoms or side effects please call our fire sprinkler installer at [phone] Check out at the front desk monitor today and make your next appointments. You can also call the s brittanydulers at [phone]. Jeanette Lai RN, BMTCN Oncology Nurse Coordinator [facility]ignancies [address] [place] [address] tel [phone] fax [phone] email [email or web address] documented in this encounter Progress Notes Quirino Moreno MD,PhD - 08/27/2016 11:15 AM PSTFormatting of this note might be different fr om the original. [facility] Center for Hematologic Malignancies Assessment & Plan: [...] F/u - OK to return home to [place] - f/u with Dr Hilton next wk Quirino Moreno MD [email or web address] Local oncologist: Aashish Hilton MD ([facility]) Benign Hematology: Jim Michael MD ([facility]) Pediatric Heme/Onc: Anh Moreland MD ([place]) Nephrology: Raghav Miller MD ([place]) 04/2015 presented with flank pain CT C/A/P: 11 cm anterior mediastinal mass, pleural effusion & L supraclav adenopathy Needle bx: classical hodgkins, nodular sclerosing type Thoracentesis: reactive/benign BMBx: neg PET: bulky mediastinal mass, SUV 16; bilateral neck SUV 15; also R>L pleural effusion 05/10/15 began ABVE-PC (as per pediatric [id number]) via femoral line 05/16/15 presented with sepsis [...] Above therapy in [place] -> moved to [place] Continued on ecalizumab per benign heme ([place]ernanda) [...] tablet in mouth once daily at [facility]. 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 Left cervical lymph node, biopsy ([id number], 03/16/2016): - Nodular sclerosis, classical Hodgkin's lymphoma [...]
--- OUTSIDE RECORDS SUMMARY | ~2019-01-06 | XMS | Encounter Summary ---
Demographics + + + | Address | [address]DRESS | | | [place] [address] | + + + | Home Phone | | + + + | Preferred Language | Unknown | + + + | Marital Status | Single | + + + | Scientology Affiliation | Unknown | + + + | Race | Unknown | + + + | Ethnic Group | Unknown | + + + Author + + + | Author | [facility] | | | and [place] | + + + | Organization | [facility] | | | and [place] | + + + | Address | Unknown | + + + | Phone | Unavailable | + + + Support + + + + + | Name | Relationship | Address | Phone | + + + + + | Qamar Wynne | ECON | [address] | | | | | [place] | | | | | [address] | | + + + + + | Merlyn Otero | ECON | [address] | | | | | [place] | | | | | [address] | | + + + + + Care Team Providers + +------+ + | Care Computer Science Instructor Name | Role | Phone | + [...] + + | 12/12/ | Refill | [facility] | Jack Galeano, | Medication Refill | | 2019 | | [facility] | [address] | | | | | [facility] [address] | [place] [address] | | | | | [address] | [address] | | | | | [place] [address] | [phone] | | | | | [phone] | | | +--------+--------+ + + + [...] | | | | | | [place] [address] | | | | | | [phone] | | | | | | | | +--------+ + + + + | 01/22/ | Appointment | Oncology | Lida, | | | 2018 | | | MD [address] | | | | | | [address] | | | | | | [place] [address] | | | | | | [phone] | | | | | | | | +--------+ + + + + documented as of this encounter Visit Diagnoses + + | Diagnosis | + + | Hodgkin's disease, nodular sclerosis, of intrathoracic lymph nodes (HCC) - Primary | | Hodgkin's disease, nodular sclerosis, of intrathoracic lymph nodes | + + documented in this encounter"
--- OUTSIDE RECORDS SUMMARY | ~2019-01-06 | XMS | Encounter Summary ---
Demographics + + + | Address | [address] | | | [place] [address] | + + + | Home Phone [...] Team Providers + +------+ + | Care Quality Assurance Monitor Name | Role | Phone | + +------+ + | No Pcp Per Patient | PCP | Unavailable | + +------+ + Encounter Details +--------+ + + + + | Date | Type | Department | Care Team | Description | +--------+ + + + + | 06/01/ | Telephone | Center for | Maura Lai, | | | 2015 | | Hematologic | RN [address] | | | | | Malignancies at | [facility] | | | | | Joanne Herman | [place], [place] | | | | | [address] [facility] | [address] | | | | | [facility] | [phone] | | | | | Mailcode: [id number] | | | | | | Joanne Herman | | | | | | [place], [place] | | | | | | [address] | | | | | | [phone] | | | +--------+ + + + [...]
--- OUTSIDE RECORDS SUMMARY | ~2019-01-06 | XMS | Encounter Summary ---
Demographics + + + | Address | [address] | | | [place] [address] | + + + | Home Phone | | + + + | Preferred Language | Unknown | + + + | Marital Status | | + + + | Alevism Affiliation | NON | + + + [...] Team Providers + +------+ + | Care Pumper Hand Name | Role | Phone | + +------+ + | No Pcp Per Patient | PCP | Unavailable | + +------+ + Reason for Visit + + + | Reason | Comments | + + + | Lab Draw | peripheral (has PAC) | + + + Other (Routine) +--------+--------+ [...] | [address] | [address] | | | | | Hodgkin | [place] | [facility] | | | | | lymphoma of | Rd | Mailcode: | | | | | lymph nodes | [place], [place] | [id number] | | | | | of multiple | [address] | [place] | | | | | regions | Phone: | Pavilion | | | | | (HCC) | [phone] | [place], [place] | | | | | Procedures | Fax: | [address] | | | | | Autologous | [phone] | Phone: | | | | | SCT Eval | | [phone] | | | | | | | Fax: | | | | | | | [phone] | +--------+--------+ + + + + Encounter Details +--------+ + + + + | Date | Type | Department | Care Team | Description | +--------+ + + + + | 06/17/ | Clinical | [facility] for | | Lab Draw (peripheral | | 2015 | Support | Hematologic | | (has PAC)) | | | Staff | [facility] | | | | | | [address] | | | | | | [facility] | | | | | | Mailcode: [id number] | | | | | | Joanne Herman | | | | | | [place], [place] | | | | | | [address] | | | | | | [phone] | | | +--------+ + + + [...] + + + | Blood Pressure | 122/86 | 06/17/2016 8:56 AM | | | | | PDT | | + + + + + | Pulse | 130 | 06/17/2016 8:56 AM | | | | | PDT | | + + + + + | Temperature | 36.6 C (97.8 F) | 06/17/2016 8:56 AM | | | | | PDT | | + + + + + | Respiratory Rate | 20 | 06/17/2016 8:56 AM | | | | | PDT | | + + + + + | Oxygen Saturation | 100% | 06/17/2016 8:56 AM | | | | | PDT | | + + + + + | Inhaled Oxygen | - | - | | | Concentration | | | | + + + + + | Weight | 98.8 kg (217 lb 13 | 06/17/2016 8:56 AM | | | | oz) | PDT | | + + + + + | Height | - | - | | + + + + + | Body Mass Index | 31.25 | 04/07/2016 2:00 PM | | | | | PDT | | + + + + + documented in this encounter Progress Notes Michela Yarbrough RN - 06/17/2016 9:10 AM PDTPatient ambulated into fast track for lab draw. Patient has PAC but INR tube needed for itinerary labs so patient to be drawn peripherally. Left AC accessed with a 23 gauge butterfly needle by KAMILA Restrepo. Labs drawn and sent. Inocencia erated procedure well. Site dressed with sterile gauze and Coban. Patient sent to waiting room until BMT class. documented in this enc ounter Plan of Treatment Not on filedocumented as of this encounter Procedures + +--------+ + + + | Procedure Name | Priori | Date/Time | Associated Diagnosis | Comments | | | ty | | | | + +--------+ + + + | CONFIRMATORY ABO/RH | Routin | 06/17/2016 | Nodular sclerosis | Results for this | | | e | 8:53 AM | Hodgkin lymphoma of | procedure are in the | | | | PDT | lymph nodes of | results section. | | | | | multiple regions | | | | | | (HCC) | | + +--------+ + + + | ANTIBODY SCREEN | Routin | 06/17/2016 | Nodular sclerosis | Results for this | | | e | 8:53 AM | Hodgkin lymphoma of | procedure are in the | | | | PDT | lymph nodes of | results section. | | | | | multiple regions | | | | | | (HCC) | | + +--------+ + + + | TYPE AND SCREEN | Routin | 06/17/2016 | Nodular sclerosis | Results for this | | | e | 8:53 AM | Hodgkin lymphoma of | procedure are in the | | | | PDT | lymph nodes of | results section. | | | | | multiple regions | | | | | | (HCC) | | + +--------+ + + + | ABO & RH TYPE | Routin | 06/17/2016 | Nodular sclerosis | Results for this | | | e | 8:53 AM | Hodgkin lymphoma of | procedure are in the | | | | PDT | lymph nodes of | results section. | | | | | multiple regions | | | | | | (HCC) | | + +--------+ + + + | INF DISEASE MISC | Routin | 06/17/2016 | Nodular sclerosis | Results for this | | | e | 8:52 AM | Hodgkin lymphoma of | procedure are in the | | | | PDT | lymph nodes of | results section. | | | | | multiple regions | | | | | | (HCC) | | + +--------+ + + + | INF DISEASE TENZIN | Routin | 06/17/2016 | Nodular sclerosis | Results for this | | | e | 8:52 AM | Hodgkin lymphoma of | procedure are in the | | | | PDT | lymph nodes of | results section. | | | | | multiple regions | | | | | | (HCC) | | + +--------+ + + + | INF DISEASE SCREEN | Routin | 06/17/2016 | Nodular sclerosis | Results for this | | | e | 8:52 AM | Hodgkin lymphoma of | procedure are in the | | | | PDT | lymph nodes of | results section. | | | | | multiple regions | | | | | | (HCC) | | + +--------+ + + + | INFECT DISEASE | Routin | 06/17/2016 | Nodular sclerosis | Results for this | | MARKER PANEL | e | 8:52 AM | Hodgkin lymphoma of | procedure are in the | | | | PDT | lymph nodes of | results section. | | | | | multiple regions | | | | | | (HCC) | | + +--------+ + + + | CBC AND AUTO DIFF | Routin | 06/17/2016 | Nodular sclerosis | Results for this | | | e | 8:52 AM | Hodgkin lymphoma of | procedure are in the | | | | PDT | lymph nodes of | results section. | | | | | multiple regions | | | | | | (HCC) | | + +--------+ + + + | INR | Routin | 06/17/2016 | Nodular sclerosis | Results for this | | | e | 8:52 AM | Hodgkin lymphoma of | procedure are in the | | | | PDT | lymph nodes of | results section. | | | | | multiple regions | | | | | | (HCC) | | + +--------+ + + + | CBC, WITH | Routin | 06/17/2016 | Nodular sclerosis | Results for this | | DIFFERENTIAL | e | 8:52 AM | Hodgkin lymphoma of | procedure are in the | | | | PDT | lymph nodes of | results section. | | | | | multiple regions | | | | | | (HCC) | | + +--------+ + + + | VARICELLA ZOSTER | Routin | 06/17/2016 | Nodular sclerosis | Results for this | | IGG, SERUM | e | 8:52 AM | Hodgkin lymphoma of | procedure are in the | | | | PDT | lymph nodes of | results section. | | | | | multiple regions | | | | | | (HCC) | | + +--------+ + + + | HSV ANTIBODY, SERUM | Routin | 06/17/2016 | Nodular sclerosis | Results for this | | | e | 8:52 AM | Hodgkin lymphoma of | procedure are in the | | | | PDT | lymph nodes of | results section. | | | | | multiple regions | | | | | | (HCC) | | + +--------+ + + + | RANDY CROW VIRUS | Routin | 06/17/2016 | Nodular sclerosis | Results for this | | PANEL, SERUM | e | 8:52 AM | Hodgkin lymphoma of | procedure are in the | | | | PDT | lymph nodes of | results section. | | | | | multiple regions | | | | | | (HCC) | | + +--------+ + + + | COMPLETE METABOLIC | Routin | 06/17/2016 | Nodular sclerosis | Results for this | | SET | e | 8:52 AM | Hodgkin lymphoma of | procedure are in the | | (NA,K,CL,CO2,BUN,CRE | | PDT | lymph nodes of | results section. | | AT,GLUC,CA,AST,ALT,B | | | multiple regions | | | VIVIENNE TOTAL,ALK | | | (HCC) | | | PHOS,ALB,PROT TOTAL) | | | | | + +--------+ + + + | HEMOGLOBIN S SCREEN, | Routin | 06/17/2016 | Nodular sclerosis | Results for this | | BLOOD | e | 8:52 AM | Hodgkin lymphoma of | procedure are in the | | | | PDT | lymph nodes of | results section. | | | | | multiple regions | | | | | | (HCC) | | + +--------+ + + + | TOXOPLASMA IGG AB, | Routin | 06/17/2016 | Nodular sclerosis | Results for this | | SERUM | e | 8:52 AM | Hodgkin lymphoma of | procedure are in the | | | | PDT | lymph nodes of | results section. | | | | | multiple regions | | | | | | (HCC) | | + +--------+ + + + | PHOSPHORUS, PLASMA | Routin | 06/17/2016 | Nodular sclerosis | Results for this | | | e | 8:52 AM | Hodgkin lymphoma of | procedure are in the | | | | PDT | lymph nodes of | results section. | | | | | multiple regions | | | | | | (HCC) | | + +--------+ + + + | HEPATITIS B SURFACE | Routin | 06/17/2016 | Nodular sclerosis | Results for this | | AB QUAL, SERUM | e | 8:52 AM | Hodgkin lymphoma of | procedure are in the | | | | PDT | lymph nodes of | results section. | | | | | multiple regions | | | | | | (HCC) | | + +--------+ + + + | HEPATITIS A AB | Routin | 06/17/2016 | Nodular sclerosis | Results for this | | SCREEN, SERUM | e | 8:52 AM | Hodgkin lymphoma of | procedure are in the | | | | PDT | lymph nodes of | results section. | | | | | multiple regions | | | | | | (HCC) | | + +--------+ + + + | URIC ACID, PLASMA | Routin | 06/17/2016 | Nodular sclerosis | Results for this | | | e | 8:52 AM | Hodgkin lymphoma of | procedure are in the | | | | PDT | lymph nodes of | results section. | | | | | multiple regions | | | | | | (HCC) | | + +--------+ + + + | MAGNESIUM, PLASMA | Routin | 06/17/2016 | Nodular sclerosis | Results for this | | | e | 8:52 AM | Hodgkin lymphoma of | procedure are in the | | | | PDT | lymph nodes of | results section. | | | | | multiple regions | | | | | | (HCC) | | + +--------+ + + + | LDH TOTAL, PLASMA | Routin | 06/17/2016 | Nodular sclerosis | Results for this | | | e | 8:52 AM | Hodgkin lymphoma of | procedure are in the | | | | PDT | lymph nodes of | results section. | | | | | multiple regions | | | | | | (HCC) | | + +--------+ + + + documented in this encounter Results CONFIRMATORY ABO/RH (06/17/2016 8:53 AM PDT) + + + + + [...] [facility] | [address] | [place] [address] | | | SERVICES, | [address] | | | | TRANSFUSION MEDICINE | | | | + + + + + ANTIBODY SCREEN (06/17/2016 8:53 AM PDT) + + + + + [...] | + + + + + | [facility] | [address] | [place] [address] | | | SERVICES, | [address] | | | | TRANSFUSION MEDICINE | | | | + + + + + ABO & RH TYPE (06/17/2016 8:53 AM PDT) + + + + + [...] [facility] | [address] | [place] [address] | | | SERVICES, | [address] | | | | TRANSFUSION MEDICINE | | | | + + + + + INF DISEASE MISC (06/17/2016 8:52 AM PDT) + + + + + + | Component | Value | Ref Range | Performed | Pathologist | | | | | At | Signature | + + + + + + | RPR (STS) | Negative | Negative | [facility] | | | | | | CELL | | | | | | PROCESSING | | | | | | LAB | | + + + + + + | CMV AB | Negative | Negative | [facility] | | | | | | CELL | | | | | | PROCESSING | | | | | | LAB | | + + + + + + + + | Specimen | + + | Blood | + + + + + | Narrative | Performed At | + + + | Testing performed at [employer] [facility] | [facility] | | Laboratory [address] [place] [address] | CELL PROCESSING | | | LAB | + + + + + + + + | Performing | Address | City/State/Zipcode | Phone Number | | Organization | | | | + + + + + | [facility] | [address] | [place], [place] | | | PROCESSING LAB | [address] | [address] | | + + + + + INF DISEASE TENZIN (06/17/2016 8:52 AM PDT) + + + + + + | Component | Value | Ref Range | Performed | Pathologist | | | | | At | Signature | + + + + + + | HCV TENZIN | Negative | Negative | [facility] | | | | | | CELL | | | | | | PROCESSING | | | | | | LAB | | + + + + + + | HIV-1 TENZIN | Negative | Negative | [facility] | | | | | | CELL | | | | | | PROCESSING | | | | | | LAB | | + + + + + + | WNV TENZIN | Negative | Negative | [facility] | | | | [...] | + + + + + | [facility] | [address] | [place], [place] | | | PROCESSING LAB | [address] | [address] | | + + + + + INF DISEASE SCREEN (06/17/2016 8:52 AM PDT) + + + + + + | Component | Value | Ref Range | Performed | Pathologist | | | | | At | Signature | + + + + + + | HEP BS AG | Negative | Negative | [facility] | | | | | | CELL | | | | | | PROCESSING | | | | | | LAB | | + + + + + + | HEP B CORE | Negative | Negative | [facility] | | | AB | | | CELL | | | | | | PROCESSING | | | | | | LAB | | + + + + + + | HEP C AB | Negative | Negative | [facility] | | | | | | CELL | | | | | | PROCESSING | | | | | | LAB | | + + + + + + | HTLV I AB | Negative | Negative | [facility] | | | | | | CELL | | | | | | PROCESSING | | | | | | LAB | | + + + + + + | HTLV II AB | Negative | Negative | [facility] | | | | | | CELL | | | | | | PROCESSING | | | | | | LAB | | + + + + + + | HIV 1/2 AB | Negative | Negative | [facility] | | | | | | CELL | | | | | | PROCESSING | | | | | | LAB | | + + + + + + | T. CRUZI AB | Negative | Negative | [facility] | | | | | | CELL | | | | | | PROCESSING | | | | | | LAB | | + + + + + + + + | Specimen | + + | Blood | + + + + + | Narrative | Performed At | + + + | Testing performed at [facility] | [facility] | | Laboratory [address] [place] [address] | CELL PROCESSING | | | LAB | + + + + + + + + | Performing | Address | City/State/Zipcode | Phone Number | | Organization | | | | + + + + + | [facility] | [address] | [place], [place] | | | PROCESSING LAB | [address] | [address] | | + + + + + CBC AND AUTO DIFF (06/17/2016 8:52 AM PDT) + + + + + + | Component | Value | Ref Range | Performed | Pathologist | | | | | At | Signature | + + + + + + | WHITE CELL | 3.80 (L) | 4.40 - 11.00 | [facility] | | | COUNT | | K/cu mm | LABORATORY | | | | | | SERVICES, | | | | | | CORE | | + + + + + + | RED CELL | 3.52 (L) | 4.00 - 5.20 | [facility] | | | COUNT | | M/cu mm | LABORATORY | | | | | | SERVICES, | | | | | | CORE | | + + + + + + | HEMOGLOBIN | 10.6 (L) | 12.0 - 16.0 | [facility] | | | | | g/dL | LABORATORY | | | | | | SERVICES, | | | | | | CORE | | + + + + + + | HEMATOCRIT | 31.4 (L) | 36.0 - 46.0 % | [facility] | | | | | | LABORATORY | | | | | | SERVICES, | | | | | | CORE | | + + + + + + | MCV | 89.2 | 80.0 - 96.0 fL | [facility] [...] + + + + | PLATELET | 144 (L) | 150 - 400 K/cu | [...] + + + + | NEUTROPHIL | 88.0 (H) | 50.0 - 70.0 % | [facility] | | | % | | | LABORATORY | | | | | | SERVICES, | | | | | | CORE | | + + + + + + | LYMPHOCYTE | 9.5 (L) | 18.0 - 42.0 % | [facility] | | | % | | | LABORATORY | | | | | | SERVICES, | | | | | | CORE | | + + + + + + | MONOCYTE % | 1.1 (L) | 3.5 - 9.0 % | [...] + + + + | NEUTROPHIL | 3.35 | 1.80 - 7.70 | [facility] | | | # | | K/cu mm | LABORATORY | | | | | | SERVICES, | | | | | | CORE | | + + + + + + | LYMPHOCYTE | 0.36 (L) | 1.00 - 4.80 | [facility] | | | # | | K/cu mm | LABORATORY | | | | | | SERVICES, | | | | | | CORE | | + + + + + + | MONOCYTE # | 0.04 (L) | 0.10 - 0.90 | [facility] | | | | | K/cu mm | LABORATORY | | | | | | SERVICES, | | | | | | CORE | | + + + + + + | EOS # | 0.01 | 0.00 - 0.50 | [facility] | [...] + + + + | IG# | 0.04 (H) | 0.00 - 0.03 | [facility] [...] [facility] | [address] | [place] [address] | | | [address] | [address] | | | + + + + + RANDY CROW VIRUS PANEL, SERUM (06/17/2016 8:52 [...] at | | | | | | [email or web address] | | | | | | x. [...] at | | | | | | [email or web address] | | | | | | x. [...] at | | | | | | [email or web address] | | | | | | x. [...] at | | | | | | [email or web address] | | | | | | x.Performed by [facility] | | | | | | [facility],[address] [place] [address] | | | | | | [place] [address] | | | | | | [phone]. | | | | | | [facility], [place], | | | | [...] [facility] | [address] | [place], [place] | | | [facility] | | [address] | | + + + + + [...] + | [facility] - | [address] | [place] [address] | | | [place] | | | [...] + | [facility] - | [address] | [place] [address] | | | [place] | | | [...] + | [facility] - | [address] | [place] [address] | | | [place] | | | [...] + | [facility] - | [address] | [place] [address] | | | [place] | | | [...] | + + + + + | [facility] - | [address] | [place] [address] | | | [facility] | | | | + + + [...] | | | | | | Cory, [facility] [place] [address] | | | | | | [phone]. | | | | | | jeimy, [...] [facility] | [address] | [place], [place] | | | [facility] | | [address] | | + + + + + [...] [facility] | [address] | [place] [address] | | | SERVICESSCOOBY | [address] [...] [facility] | [address] | [place] [address] | | | SERVICES, SCOOBY | [address] [...] | + + + + + | [facility] | [address] | [place] [address] | | | SERVICES, CORE | [address] [...] [facility] | [address] | [place] [address] | | | SERVICES, CORE | [address] [...] [facility] | [address] | [place] [address] | | | SERVICES, CORE | [address] [...] | | | LABORATORY | | | GAMBIAN | | | SERVICES, | | | [...] | + + + + + | [facility] | [address] | [place] [address] | | | SERVICES, CORE | [address] | | | + + + + + documented in this encounter Visit Diagnoses + + | Diagnosis | + + | 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
--- OUTSIDE RECORDS SUMMARY | ~2019-01-06 | XMS | Encounter Summary ---
Demographics + + + | Address | [address] | | | [place] [address] | + + + | Home Phone | | + + + | Preferred Language | Unknown | + + + | Marital Status | | + + + | Tenriism Affiliation | NON | + + + | Race | White | + + + | Ethnic Group | Not or | + + + Author + + + | Author | [facility] | + + + | Organization | [facility] | + + + | [...] Team Providers + +------+ + | Care Feed Mixer Helper Name | Role | Phone | [...] [address] | | | | | | [place], [place] | | | | | | [address] | | | | | | [phone] | | | +--------+ + + + [...]
--- OUTSIDE RECORDS SUMMARY | ~2019-01-06 | XMS | Encounter Summary ---
Demographics + + + | Address | [address] | | | [place] [address] | + + + | Home Phone [...] + + + | Author | [facility] | + + + | Organization | [facility] | + + + | [...] Providers + +------+ + | Care Manager Of Supply Chain Name | Role | Phone | + +------+ + | Aashish Hilton MD | PCP | | + +------+ + Reason for Visit + + + | Reason | Comments | + + + | Possible Neutropenic | | | Fever | | + + + AUTH/CERT +--------+--------+ + [...] + + + + | 08/10/ | Hospital | [facility] [address] | Destini Cheek MD | | | 2016 - | Encounter | [address] | [address] | | | | | [id number] | Blanche Robins [place], | | | 08/12/ | | [facility], | [place] [address] | | | 2015 | | [place] [address] | [phone] | | | | | [phone] | | | | | | | Sim Kim MD | | | | | | [address] | | | | | | [facility], | | | | | | [place] [address] | | | | | | [phone] | | | | | | | | | | | | Kaden Parmar, | | | | | | [address] | | | | | | [facility] | | | | | | [place], [place] | | | | | | [address] | | | | | | [phone] | | | | | | | | | | | | Sky Irizarry V, | | | | | | [address] | | | | | | [facility] | | | | | | [place], [place] | | | | | | [address] | | | | | | [phone] | | | | | | | [...] + + + | Blood Pressure | 134/87 | 08/12/2016 11:08 AM | | | | | PST | | + + + + + | Pulse | 84 | 08/12/2016 11:08 AM | | | | | PST | | + + + + + | Temperature | 36.9 C (98.4 F) | 08/12/2016 12:35 PM | | | | | PST | | + + + + + | Respiratory Rate | 16 | 08/12/2016 11:08 AM | | | | | PST | | + + + + + | Oxygen Saturation | 97% | 08/12/2016 11:08 AM | | | | | PST | | + + + + + | Inhaled Oxygen | - | - | | | Concentration | | | | + + + + + | Weight | 98.1 kg (216 lb 4.3 | 08/11/2016 1:57 AM | | | | oz) | PST | | + + + + + | Height | 177.8 cm (5' 10") | 08/11/2016 1:57 AM | | | | | PST | | + + + + + | Body Mass Index | 31.03 | 08/11/2016 1:57 AM | | | | | PST | | + + + + + documented in this encounter Discharge Summaries Ignacio Decker PA-C, MPAS - 08/12/2016 9:14 AM PST [facility] Discharge Summary Discharging Provider: Ignacio Decker PA-C, MPAS Discharging Attending Physician: Laura Irizarry MD Hospital Stay: 2 day(s) PCP: Aashish Hilton MD Admission Date: 08/10/2016 Discharge Date: 08/12/16 Hospital Stay: 2 day(s) Reason for Admission: Fever Principal Final Diagnosis: Transfusion Reaction with Fever Additional Diagnoses: Patient Active Problem List Diagnosis 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 She was admitted on 07/15/16 for BEAM conditioned Autologous Stem Cell Transplant. She presented to the ED reporting fev ers, 101.8 Tmax. She was initially seen in the clinic and received transfusions which she to lerated well. However, after returning to the [facility], she noted a fever as above and presente d to the emergency room. She had an expected workup for neutropenic fevers (although, she wa sn't severely neutropenic with an ANC of 700 which increased to 1150 upon discharge) which w as unremarkable with negative blood cultures, chest xray and urine culture negative. She rem ained afebrile while she was inpatient and was without complications. She was found to have transfusion antibodies which would initially indicate a transfusions reaction, which blood b ank has addressed. She was also continued on her IV Vancomycin for MRSA bacteremia and found to have an elevated trough - she received her last dose of IV Vancomycin before discharge ( [place] ID agreed with this plan). She will continue her follow up monitoring and trajectory as lani sanchez with appointments and supportive care. Discharge Physical Exam: Last 24 hour min/max Temp: 37.1 C (98.8 F) Temp Min: 36.6 C (97.9 F) Max: 37.3 C (99.1 F) Pulse: 98 Pulse Min: 88 Max: 100 Resp: 16 Resp Min: 16 Max: 18 BP: 139/86 BP Min: 135/82 Max: 144/86 SpO2: 97 % SpO2 Min: 96 % Max: 100 % Body mass index is 31.03 kg/(m^2). Discharge Medications: Current Discharge Medication List CONTINUE these medications which have NOT CHANGED Details acyclovir 200 mg/5 mL oral suspension Take 20 mL by mouth once daily. Qty: 600 mL, Refills: 11 enoxaparin 40 mg/0.4 mL subcutaneous syringe Inject 0.4 mL under the skin (SUBC) once daily in the evening. Indications: Deep Venous Thrombosis Qty: 14 Syringe, Refills: 2 escitalopram oxalate (LEXAPRO) 10 mg oral tablet Take 1 tablet by mouth once daily in the e vening. Qty: 30 tablet, Refills: 3 famotidine 20 mg oral tablet Take 1 tablet by mouth two times daily. Qty: 60 tablet, Refills: 5 fluconazole 40 mg/mL oral suspension for reconstitution Take 10 mL by mouth once daily. Qty: 300 mL, Refills: 3 LORazepam 0.5 mg oral tablet Take 1 tablet by mouth every six hours as needed for anxiety ( nausea, vomiting). Qty: 60 tablet, Refills: 0 norethindrone 0.35 mg oral tablet Take 1 tablet by mouth once daily. Qty: 28 tablet, Refills: 5 OLANZapine 10 mg oral tablet,disintegrating Dissolve 1 tablet in mouth once daily at bedtim e. Qty: 30 tablet, Refills: 1 ondansetron (ZOFRAN, HYDROCHLORIDE,) 8 mg oral tablet Take 1 tablet by mouth every twelv e hours as needed for nausea/vomiting. Qty: 60 tablet, Refills: 11 oxyCODONE, immediate release, 5 mg oral tablet Take 1 to 2 tablets by mouth every six hours as needed for moderate pain. Qty: 60 tablet, Refills: 0 senna-docusate 8.6-50 mg oral tablet Take 1-2 tablets by mouth every twelve hours as needed . Indications: Constipation STOP taking these medications ursodiol 300 mg oral capsule Comments: Reason for Stopping: vancomycin 1,000 mg intravenous recon soln Comments: Reason for Stopping: Rationale for Medication Changes: Medications changed based on patient symptoms, medical interventions and chronic disease leonor mon. Allergies: Allergies Allergen Reactions Promethazine Pruritus, Rash and Dystonia Sulfa (Sulfonamide Antibiotics) Hives and Dyspnea Sulfacetamide Sodium Hives Compazine [Prochlorperazine] Agitation Code Status: Full POLST completed: no Additional Instructions: Destination: Destination: Home Condition on Discharge Good Diet Low Bacteria Low bacteria diet- You should choose foods that have a low bacterial content to reduce the risk of infection. Your nurse or rfid engineer will provide you with information about foods to avoid. Activity Activity restrictions: Avoid large crowds and people that are obviously ill. Practice good hand washing hygiene. Wear a mask when you are coming in and out of clinic or in a crowded o r poorly ventilated place. You do not need to wear a mask around family/friends, in a well-v entilated public area or outside unless you are in a construction area that may have dust/di rt particles in the air. No driving when using narcotics or sedating medications. Careful with physical activity when your platelets are low to prevent bleeding.Toothbrush i s okay to use when Neutrophils are >1500 and platelets are >50,000. Flossing is okay with ne utrophils are greater than 1500 and platelets are > 100,000. Contact with pets (but not feces) is safe with the exception of reptiles, amphibians, and b irds. Skin Care: Sun block with >15 SPF should be worn at all times of sun exposure. Skin is mo re sensitive to sun exposure after radiation or chemotherapy. Other Discharge Orders and Instructions Call the BMT clinic ([phone]) or BMT person on-call ([phone]) for: Any temp > 100.4 Nausea/vomiting unresponsive [...] Future Appointments Provider Department Dept Phone Center 08/12/2016 10:40 AM [facility] INFUSION NURSE; [facility] [phone] [facility] 08/13/2016 12:40 PM [facility] INFUSION NURSE; [facility] [phone] [facility] 08/13/2016 1:15 PM Coreen Grissom; [facility] MA SUPPORT [facility] [phone] [facility] 08/17/2016 12:40 PM [facility] INFUSION NURSE; [facility] [phone] [facility] 08/17/2016 1:15 PM Coreen Grissom; [facility] MA SUPPORT [facility] [phone] [facility] 08/20/2016 12:40 PM [facility] INFUSION NURSE; [facility] [phone] [facility] 08/20/2016 1:15 PM Coreen Grissom; [facility] MA SUPPORT [facility] [phone] [facility] 08/26/2016 8:10 AM [facility] INFUSION NURSE; [facility] IN[facility] [phone] [facility] 08/26/2016 8:55 AM Quirino Moreno; [facility] MA SUPPORT [facility] at [facility] [phone] [facility] JOSE RAMON Pemberton PA-C [facility] [address] [facility] Mailcode: [id number] [place] [address] documented in thi s encounter Medications at Time of Discharge + [...] encounter Progress Notes Sky Irizarry MD - 08/12/2016 1:23 PM PSTHeme Malignancies/BMT I rounded today in conjunction with the Advanced Practice Provider Ignacio Decker I saw the patient, reviewed the history & relevant studies, and planned the discharge. Feels well. Denies fevers or other complaints Stable for d/c - reviewed discharge plan with pt - discussed precautions, especially fever/infxn - d/c medications updated Follow-up: Arranged with [facility] See CLAUDINE discharge summary for details Fever most likely was due to delayed hemolytic transfusion reaction, accompanied by mild ra ise in bilirubin and an increase in creatinnie. Resolved. 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 [address] [facility] [address] [place] [address] documented in this encounter Plan of Treatment + +---------+--------+ + + | Name | Type | Priori | Associated Diagnoses | Order Schedule | | | | ty | | | + +---------+--------+ + + | URINE, MICROSCOPIC | Lab | Urgent | | As Needed for 1 | | EXAM | | | | Occurrences starting | | | | | | 08/11/2016 | + +---------+--------+ + + | URINE SCREEN FOR | Lab | Urgent | | As Needed for 1 | | CULTURE | | | | Occurrences starting | | | | | | 08/11/2016 | + +---------+--------+ + + | X-RAY CHEST 2 VIEW | Imaging | Urgent | | As Needed for 1 | | | | | | Occurrences starting | | | | | | 08/11/2016 | + +---------+--------+ + + | UA, DIPSTICK ONLY | Lab | Urgent | | As Needed for 1 | | | | | | Occurrences starting | | | | | | 08/11/2016 | + +---------+--------+ + + | URINE, MICROSCOPIC | Lab | Urgent | | As Needed for 1 | | EXAM | | | | Occurrences starting | | | | | | 08/11/2016 | + +---------+--------+ + + | CULTURE, URINE BACTI | Lab | Urgent | | As Needed for 1 | | | | | | Occurrences starting | | | | | | 08/11/2016 | + +---------+--------+ + + | CULTURE, SPUTUM | Lab | Urgent | | As Needed for 1 | | | | | | Occurrences starting | | | | | | 08/11/2016 | + +---------+--------+ + + | X-RAY CHEST 2 VIEW | Imaging | Urgent | | As Needed for 1 | | | | | | Occurrences starting | | | | | | 08/11/2016 | + +---------+--------+ + + | UA, DIPSTICK ONLY | Lab | Urgent | | As Needed for 1 | | | | | | Occurrences starting | | | | | | 08/11/2016 | + +---------+--------+ + + | URINE, MICROSCOPIC | Lab | Urgent | | As Needed for 1 | | EXAM | | | | Occurrences starting | | | | | | 08/11/2016 | + +---------+--------+ + + | CULTURE, URINE BACTI | Lab | Urgent | | As Needed for 1 | | | | | | Occurrences starting | | | | | | 08/11/2016 | + +---------+--------+ + + | CULTURE, SPUTUM | Lab | Urgent | | As Needed for 1 | | | | | | Occurrences starting | | | | | | 08/11/2016 | + +---------+--------+ + + documented as of this encounter Procedures + +--------+ + + + | Procedure Name | Priori | Date/Time | Associated Diagnosis | Comments | | | ty | | | | + +--------+ + + + | RBC MORPHOLOGY | Routin | 08/12/2016 | | Results for this | | | e | 1:01 AM | | procedure are in the | | | | PST | | results section. | + +--------+ + + + | CBC AND AUTO DIFF | Urgent | 08/12/2016 | | Results for this | | | | 1:01 AM | | procedure are in the | | | | PST | | results section. | + +--------+ + + + | MANUAL DIFFERENTIAL | Routin | 08/12/2016 | | Results for this | | | e | 1:01 AM | | procedure are in the | | | | PST | | results section. | + +--------+ + + + | CBC, WITH | Urgent | 08/12/2016 | | Results for this | | DIFFERENTIAL | | 1:01 AM | | procedure are in the | | | | PST | | results section. | + +--------+ + + + | COMPLETE METABOLIC | Urgent | 08/12/2016 | | Results for this | | SET | | 1:01 AM | | procedure are in the | | (NA,K,CL,CO2,BUN,CRE | | PST | | results section. | | AT,GLUC,CA,AST,ALT,B | | | | | | VIVIENNE TOTAL,ALK | | | | | | PHOS,ALB,PROT TOTAL) | | | | | + +--------+ + + + | PHOSPHORUS, PLASMA | Urgent | 08/12/2016 | | Results for this | | | | 1:01 AM | | procedure are in the | | | | PST | | results section. | + +--------+ + + + | URIC ACID, PLASMA | Urgent | 08/12/2016 | | Results for this | | | | 1:01 AM | | procedure are in the | | | | PST | | results section. | + +--------+ + + + | MAGNESIUM, PLASMA | Urgent | 08/12/2016 | | Results for this | | | | 1:01 AM | | procedure are in the | | | | PST | | results section. | + +--------+ + + + | LDH TOTAL, PLASMA | Urgent | 08/12/2016 | | Results for this | | | | 1:01 AM | | procedure are in the | | | | PST | | results section. | + +--------+ + + + | TRANSFUSE RED CELLS, | Routin | 08/11/2016 | | | | LEUKOREDUCED | e | 8:06 PM | | | | | | PST | | | + +--------+ + + + | VANCOMYCIN, RANDOM | Routin | 08/11/2016 | | Results for this | | | e | 5:26 PM | | procedure are in the | | | | PST | | results section. | + +--------+ + + + | PRODUCT - RED CELLS | Routin | 08/11/2016 | | Results for this | | LEUKOREDUCED | e | 2:25 PM | | procedure are in the | | | | PST | | results section. | + +--------+ + + + | PRODUCT - RED CELLS | Routin | 08/11/2016 | | Results for this | | LEUKOREDUCED | e | 2:25 PM | | procedure are in the | | | | PST | | results section. | + +--------+ + + + | VRE (XENIA) BY PCR | Urgent | 08/11/2016 | | Results for this | | | | 1:42 PM | | procedure are in the | | | | PST | | results section. | + +--------+ + + + | TRANSFUSION REACTION | Routin | 08/11/2016 | | Results for this | | | e | 12:32 PM | | procedure are in the | | | | PST | | results section. | + +--------+ + + + | C3 COLIN | Routin | 08/11/2016 | | Results for this | | | e | 7:43 AM | | procedure are in the | | | | PST | | results section. | + +--------+ + + + | COLIN IGG | Routin | 08/11/2016 | | Results for this | | | e | 7:43 AM | | procedure are in the | | | | PST | | results section. | + +--------+ + + + | ANTIBODY ELUTION | Routin | 08/11/2016 | | Results for this | | | e | 7:43 AM | | procedure are in the | | | | PST | | results section. | + +--------+ + + + | ANTIBODY | Routin | 08/11/2016 | | Results for this | | IDENTIFICATION | e | 7:43 AM | | procedure are in the | | | | PST | | results section. | + +--------+ + + + | ANTIBODY SCREEN | Routin | 08/11/2016 | | Results for this | | | e | 7:43 AM | | procedure are in the | | | | PST | | results section. | + +--------+ + + + | TYPE AND SCREEN | Routin | 08/11/2016 | | Results for this | | | e | 7:43 AM | | procedure are in the | | | | PST | | results section. | + +--------+ + + + | ABO & RH TYPE | Routin | 08/11/2016 | | Results for this | | | e | 7:43 AM | | procedure are in the | | | | PST | | results section. | + +--------+ + + + | PRODUCT - RED CELLS | Routin | 08/11/2016 | | Results for this | | LEUKOREDUCED | e | 7:38 AM | | procedure are in the | | | | PST | | results section. | + +--------+ + + + | RBC MORPHOLOGY | Routin | 08/11/2016 | | | | | e | 6:04 AM | | | | | | PST | | | + +--------+ + + + | CBC AND AUTO DIFF | Urgent | 08/11/2016 | | Results for this | | | | 6:04 AM | | procedure are in the | | | | PST | | results section. | + +--------+ + + + | MANUAL DIFFERENTIAL | Routin | 08/11/2016 | | Results for this | | | e | 6:04 AM | | procedure are in the | | | | PST | | results section. | + +--------+ + + + | CBC, WITH | Urgent | 08/11/2016 | | Results for this | | DIFFERENTIAL | | 6:04 AM | | procedure are in the | | | | PST | | results section. | + +--------+ + + + | COMPLETE METABOLIC | Urgent | 08/11/2016 | | Results for this | | SET | | 6:04 AM | | procedure are in the | | (NA,K,CL,CO2,BUN,CRE | | PST | | results section. | | AT,GLUC,CA,AST,ALT,B | | | | | | VIVIENNE TOTAL,ALK | | | | | | PHOS,ALB,PROT TOTAL) | | | | | + +--------+ + + + | PHOSPHORUS, PLASMA | Urgent | 08/11/2016 | | Results for this | | | | 6:04 AM | | procedure are in the | | | | PST | | results section. | + +--------+ + + + | BILIRUBIN DIRECT | Urgent | 08/11/2016 | | Results for this | | | | 6:04 AM | | procedure are in the | | | | PST | | results section. | + +--------+ + + + | URIC ACID, PLASMA | Urgent | 08/11/2016 | | Results for this | | | | 6:04 AM | | procedure are in the | | | | PST | | results section. | + +--------+ + + + | MAGNESIUM, PLASMA | Urgent | 08/11/2016 | | Results for this | | | | 6:04 AM | | procedure are in the | | | | PST | | results section. | + +--------+ + + + | LDH TOTAL, PLASMA | Urgent | 08/11/2016 | | Results for this | | | | 6:04 AM | | procedure are in the | | | | PST | | results section. | + +--------+ + + + | HCG URINE, POC | Urgent | 08/10/2016 | Fever and chills | Results for this | | | | 11:18 PM | | procedure are in the | | | | PST | | results section. | + +--------+ + + + | CULTURE, BLOOD BACTI | Urgent | 08/10/2016 | | Results for this | | & YEAST [facility] | | 11:07 PM | | procedure are in the | | | | PST | | results section. | + +--------+ + + + | CULTURE, BLOOD BACTI | Urgent | 08/10/2016 | | Results for this | | & YEAST [facility] | | 11:07 PM | | procedure are in the | | | | PST | | results section. | + +--------+ + + + | CULTURE, BLOOD BACTI | Urgent | 08/10/2016 | | Results for this | | & YEAST | | 11:07 PM | | procedure are in the | | | | PST | | results section. | + +--------+ + + + | CULTURE, BLOOD BACTI | Urgent | 08/10/2016 | | Results for this | | & YEAST | | 11:07 PM | | procedure are in the | | | | PST | | results section. | + +--------+ + + + | CULTURE, BLOOD BACTI | Urgent | 08/10/2016 | | Results for this | | & YEAST [facility] | | 9:34 PM | | procedure are in the | | | | PST | | results section. | + +--------+ + + + | CULTURE, BLOOD BACTI | Urgent | 08/10/2016 | | Results for this | | & YEAST | | 9:34 PM | | procedure are in the | | | | PST | | results section. | + +--------+ + + + | X-RAY CHEST 2 VIEW | Urgent | 08/10/2016 | | Results for this | | | | 9:32 PM | | procedure are in the | | | | PST | | results section. | + +--------+ + + + | BG-LAC,POC ISTAT | Urgent | 08/10/2016 | | Results for this | | | | 9:16 PM | | procedure are in the | | | | PST | | results section. | + +--------+ + + + | CULTURE, BLOOD BACTI | Urgent | 08/10/2016 | | Results for this | | & YEAST [facility] | | 8:53 PM | | procedure are in the | | | | PST | | results section. | + +--------+ + + + | CBC AND AUTO DIFF | Urgent | 08/10/2016 | | Results for this | | | | 8:53 PM | | procedure are in the | | | | PST | | results section. | + +--------+ + + + | COMPLETE METABOLIC | Urgent | 08/10/2016 | | Results for this | | SET | | 8:53 PM | | procedure are in the | | (NA,K,CL,CO2,BUN,CRE | | PST | | results section. | | AT,GLUC,CA,AST,ALT,B | | | | | | VIVIENNE TOTAL,ALK | | | | | | PHOS,ALB,PROT TOTAL) | | | | | + +--------+ + + + | URINE, MICROSCOPIC | Urgent | 08/10/2016 | | Results for this | | EXAM | | 8:53 PM | | procedure are in the | | | | PST | | results section. | + +--------+ + + + | URINE SCREEN FOR | Urgent | 08/10/2016 | | Results for this | | CULTURE | | 8:53 PM | | procedure are in the | | | | PST | | results section. | + +--------+ + + + | COAGULOPATHY PANEL | Urgent | 08/10/2016 | | Results for this | | (INR,APTT,FIBRINOGEN | | 8:53 PM | | procedure are in the | | ) | | PST | | results section. | + +--------+ + + + | CULTURE, BLOOD BACTI | Urgent | 08/10/2016 | | Results for this | | & YEAST | | 8:53 PM | | procedure are in the | | | | PST | | results section. | + +--------+ + + + | CULTURE, URINE [facility] | Routin | 08/10/2016 | | Results for this | | | e | 8:53 PM | | procedure are in the | | | | PST | | results section. | + +--------+ + + + | MANUAL DIFFERENTIAL | Routin | 08/10/2016 | | Results for this | | | e | 8:53 PM | | procedure are in the | | | | PST | | results section. | + +--------+ + + + | CBC, WITH | Urgent | 08/10/2016 | | Results for this | | DIFFERENTIAL | | 8:53 PM | | procedure are in the | | | | PST | | results section. | + +--------+ + + + | VANCOMYCIN, RANDOM | Urgent | 08/10/2016 | | Results for this | | | | 8:53 PM | | procedure are in the | | | | PST | | results section. | + +--------+ + + + documented in this encounter Results RBC MORPHOLOGY (08/12/2016 1:01 AM PST) + +---------+ + + + [...] [facility] | [address] | [place] [address] | | | SERVICES, CORE | [address] | | | + + + + + MANUAL DIFFERENTIAL (08/12/2016 1:01 AM PST) + + + + + + | Component | Value | Ref Range | Performed | Pathologist | | | | | At | Signature | + + + + + + | NEUTROPHIL | 64.1 | 50.0 - 70.0 % | [facility] | | | % | | | LABORATORY | | | | | | SERVICES, | | | | | | CORE | | + + + + + + | LYMPHOCYTE | 22.3 | 18.0 - 42.0 % | [facility] [...] + + + + | EOSINOPHIL | 1.0 | 1.0 - 3.0 % | [facility] | | | % | | | LABORATORY | | | | | | SERVICES, | | | | | | CORE | | + + + + + + | BASOPHIL % | 1.0 | 0.0 - 2.0 % | [facility] | | | | | | LABORATORY | | | | | | SERVICES, | | | | | | CORE | | + + + + + + | IG% | 6.8 (H)Comment: Immature | 0.0 - 0.6 % [...] + + + + | NEUTROPHIL | 1.15 (L) | 1.80 - 7.70 | [facility] | | | # | | K/cu mm | LABORATORY | | | | | | SERVICES, | | | | | | CORE | | + + + + + + | LYMPHOCYTE | 0.40 (L) | 1.00 - 4.80 | [facility] | | | # | | K/cu mm | LABORATORY | | | | | | SERVICES, | | | | | | CORE | | + + + + + + | MONOCYTE # | 0.09 (L) | 0.10 - 0.90 | [facility] | | | | | K/cu mm | LABORATORY | | | | | | SERVICES, | | | | | | CORE | | + + + + + + | EOSINOPHIL | 0.02 | 0.00 - 0.50 | [facility] | | | # | | K/cu mm | LABORATORY | | | | | | SERVICES, | | | | | | CORE | | + + + + + + | BASOPHIL # | 0.02 | 0.00 - 0.10 | [facility] | [...] [facility] | [address] | [place] [address] | | | SERVICES, CORE | [address] | | | + + + + + CBC AND AUTO DIFF (08/12/2016 1:01 AM PST) + + + + + + | Component | Value | Ref Range | Performed | Pathologist | | | | | At | Signature | + + + + + + | WHITE CELL | 1.80 (L) | 3.50 - 10.80 | [facility] | | | COUNT | | K/cu mm | LABORATORY | | | | | | SERVICES, | | | | | | CORE | | + + + + + + | RED CELL | 2.25 (L) | 4.00 - 5.20 | [facility] | | | COUNT | | M/cu mm | LABORATORY | | | | | | SERVICES, | | | | | | CORE | | + + + + + + | HEMOGLOBIN | 6.8 (L) | 12.0 - 16.0 | [facility] | | | | | g/dL | LABORATORY | | | | | | SERVICES, | | | | | | CORE | | + + + + + + | HEMATOCRIT | 20.0 (L) | 36.0 - 46.0 % | [facility] | | | | | | LABORATORY | | | | | | SERVICES, | | | | | | CORE | | + + + + + + | MCV | 88.9 | 80.0 - 96.0 fL | [facility] [...] + + + | RDW SD | 45.5 | 35.1 - 46.3 fL | [facility] | | | | | | LABORATORY | | | | | | SERVICES, | | | | | | CORE | | + + + + + + | PLATELET | 27 (L) | 150 - 400 K/cu | [facility] | | | COUNT | | mm | LABORATORY | | | | | | SERVICES, | | | | | | CORE | | + + + + + + | MPV | 13.0 (H) | 9.7 - 12.3 fL | [facility] [...] | + + + + + | [facility] | [address] | [place] [address] | | | SERVICES, CORE | [address] | | | + + + + + PHOSPHORUS, PLASMA (08/12/2016 1:01 AM PST) + +-------+ + + + [...] [facility] | [address] | [place] [address] | | | SERVICES, CORE | [address] | | | + + + + + MAGNESIUM, PLASMA (08/12/2016 1:01 AM PST) + +-------+ + + + | Component | Value | Ref Range | Performed | Pathologist | | | | | At | Signature | + +-------+ + + + | MAGNESIUM,P | 1.8 | 1.8 - 2.5 mg/dL | [facility] [...] | + + + + + | [facility] | [address] | [place] [address] | | | SERVICES, CORE | [address] | | | + + + + + URIC ACID, PLASMA (08/12/2016 1:01 AM PST) + +-------+ + + + | Component | Value | Ref Range | Performed | Pathologist | | | | | At | Signature | + +-------+ + + + | URIC ACID, | 3.1 | 2.5 - 6.2 mg/dL | [facility] [...] [facility] | [address] | [place] [address] | | | SERVICES, CORE | [address] | | | + + + + + LDH TOTAL, PLASMA (08/12/2016 1:01 AM PST) + +---------+ + + + | Component | Value | Ref Range | Performed | Pathologist | | | | | At | Signature | + +---------+ + + + | LD TOTAL, | 371 (H) | <=250 U/L | [facility] | [...] | + + + + + | [facility] | [address] | [place] [address] | | | SERVICES, CORE | [address] | | | + + + + + COMPLETE METABOLIC SET (NA,K,CL,CO2,BUN,CREAT,GLUC,CA,AST,ALT,BILI TOTAL,ALK PHOS,ALB,PROT TOTAL) (08/12/2016 1:01 AM PST) + + + + + + | Component | Value | Ref Range | Performed | Pathologist | | | | | At | Signature | + + + + + + | GLUCOSE, | 95 | 60 - 99 mg/dL | [facility] [...] + + + + | CREATININE | 1.32 (H) | 0.60 - 1.10 | [facility] | | | PLASMA | | mg/dL | LABORATORY | | | (LAB) | | | SERVICES, | | | | | | CORE | | + + + + + + | EGFR | >60 | >60 mL/min | [facility] | | | - | | | LABORATORY | | | TOGOLESE | | | SERVICES, | | | | | | CORE | | + + + + + + | EGFR NON | 50 (L) | >60 mL/min | [facility] | | | -RAOUL | | | LABORATORY | | | RICAN | | | SERVICES, | | | | | | CORE | | + + + + + + | SODIUM, | 146 (H) | 136 - 145 | [facility] | | | PLASMA | | mmol/L | LABORATORY | | | (LAB) | | | SERVICES, | | | | | | CORE | | + + + + + + | POTASSIUM, | 3.2 (L) | 3.4 - 5.0 | [facility] | | | PLASMA | | mmol/L | LABORATORY | | | (LAB) | | | SERVICES, | | | | | | CORE | | + + + + + + | CHLORIDE, | 113 (H) | 97 - 108 mmol/L | [...] + + + + | CALCIUM(ALB | 9.2 | 8.6 - 10.2 | [facility] | | | CORRECTED) | | mg/dL | LABORATORY | | | | | | SERVICES, | | | | | | CORE | | + + + + + + | BILIRUBIN | 0.8 | 0.3 - 1.2 mg/dL | [facility] | | | TOTAL | | | LABORATORY | | | | | | SERVICES, | | | | | | CORE | | + + + + + + | TOTAL | 5.7 [...] + + + | ALK PHOS | 92 | 42 - 98 U/L | [facility] | | | | | | LABORATORY | | | | | | SERVICES, | | | | | | CORE | | + + + + + + | AST(SGOT) | 22 | <=41 U/L | [facility] | | [...] the MDRD equation recommended by the | [facility] | | National Kidney Disease Education Program. Estimated GFR | LABORATORY | | Interpretive Information: <60 mL/min/1.73 sq | [facility] | | m Chronic Kidney Disease <15 [...] | + + + + + | [facility] | [address] | [place] [address] | | | [place] [address] | [address] | | | + + + + + VANCOMYCIN, RANDOM (08/11/2016 5:26 PM PST) + +-------+ + + + | Component | Value | Ref Range | Performed | Pathologist | | | | | At | Signature | + +-------+ + + + | VANCOMYCIN, | 17.2 | 5.0 - 50.0 | [facility] | | | RANDOM | | ug/mL | LABORATORY | | [...] [facility] | [address] | [place] [address] | | | SERVICES, CORE | [address] | | | + + + + + PRODUCT - RED CELLS LEUKOREDUCED (08/11/2016 2:25 PM PST) + + + + + [...] + + + + | PRODUCT | [id number] | | [facility] | | | UNIT [...] + + + + | EXPIRATION | [id number] | | [facility] | | | DATE [...] + + + + | BLOOD | [id number] | | [facility] | | | PRODUCT [...] [facility] | [address] | [place] [address] | | | SERVICES, | [address] | | | | TRANSFUSION MEDICINE | | | | + + + + + PRODUCT - RED CELLS LEUKOREDUCED (08/11/2016 2:25 PM PST) + + + + + [...] + + + + | PRODUCT | [id number] | | [facility] | | | UNIT [...] + + + + | EXPIRATION | [id number] | | [facility] | | | DATE [...] + + + + | BLOOD | [id number] | | [facility] | | | PRODUCT [...] [facility] | [address] | [place] [address] | | | SERVICES, | [address] | | | | TRANSFUSION MEDICINE | | | | + + + + + VRE (XENIA) BY PCR (08/11/2016 1:42 PM PST) + + + + + [...] | + + + + + | [facility] | [address] | [place] [address] | | | SERVICES, CORE | [address] | | | + + + + + TRANSFUSION REACTION (08/11/2016 12:32 PM PST) + + + + + + | Component | Value | Ref Range | Performed | Pathologist | | | | | At | Signature | + + + + + + | TRANSFUSION | Delayed Hemolytic | | [facility] | | | REACTION | Reaction | | LABORATORY | | | FINDINGS | | | SERVICES, | | | [...] [facility] | [address] | [place] [address] | | | SERVICES, | [address] | | | | TRANSFUSION MEDICINE | | | | + + + + + ANTIBODY ELUTION (08/11/2016 7:43 AM PST) + + + + + + | Component | Value | Ref Range | Performed | Pathologist | | | | | At | Signature | + + + + + + | ANTIBODY | NegativeComment: LAST | | [facility] | | | ELUTION 1 | WASH: NEGATIVE | | LABORATORY | | | | MANUF. LOT# EXP D. | | SERVICES, | | | | WASH SOLN LOT EXP DATE | | TRANSFUSION | | | | GAMMA [id number] | | MEDICINE | | | | 12-23-17 [id number] | | | | | | 11-15-2016 | | | | + + + + + + + + | Specimen | + + | Blood | + + + + + + + | Performing | Address | City/State/Zipcode | Phone Number | | Organization | | | | + + + + + | [facility] | [address] | [place] [address] | | | SERVICES, | [address] | | | | TRANSFUSION MEDICINE | | | | + + + + + ANTIBODY IDENTIFICATION (08/11/2016 7:43 AM PST) + + + + + [...] | + + + + + | [facility] | [address] | [place] [address] | | | SERVICES, | [address] | | | | TRANSFUSION MEDICINE | | | | + + + + + C3 COLIN (08/11/2016 7:43 AM PST) + + + + + + | Component | Value | Ref Range | Performed | Pathologist | | | | | At | Signature | + + + + + + | COLIN C3 | Positive | | [facility] | | [...] [facility] | [address] | [place] [address] | | | SERVICES, | [address] | | | | TRANSFUSION MEDICINE | | | | + + + + + COLIN IGG (08/11/2016 7:43 AM PST) + + + + + [...] [facility] | [address] | [place] [address] | | | SERVICES, | [address] | | | | TRANSFUSION MEDICINE | | | | + + + + + ANTIBODY SCREEN (08/11/2016 7:43 AM PST) + + + + + [...] [facility] | [address] | [place] [address] | | | SERVICES, | [address] | | | | TRANSFUSION MEDICINE | | | | + + + + + ABO & RH TYPE (08/11/2016 7:43 AM PST) + + + + + [...] [facility] | [address] | [place] [address] | | | SERVICES, | [address] | | | | TRANSFUSION MEDICINE | | | | + + + + + PRODUCT - RED CELLS LEUKOREDUCED (08/11/2016 7:38 AM PST) + + + + + [...] + + + + | PRODUCT | [id number] | | [facility] | | | UNIT [...] + + + + | EXPIRATION | [id number] | | [facility] | | | DATE [...] + + + + | BLOOD | [id number] | | [facility] | | | PRODUCT [...] [facility] | [address] | [place] [address] | | | SERVICES, | [address] | | | | TRANSFUSION MEDICINE | | | | + + + + + RBC MORPHOLOGY (08/11/2016 6:04 AM PST) + + | Specimen | + + | Blood | + + + + + + + | Performing | Address | City/State/Zipcode | Phone Number | | Organization | | | | + + + + + | [facility] | [address] | [place] [address] | | | SERVICES, SCOOBY | [address] | | | + + + + + MANUAL DIFFERENTIAL (08/11/2016 6:04 AM PST) + + + + + + | Component | Value | Ref Range | Performed | Pathologist | | | | | At | Signature | + + + + + + | NEUTROPHIL | 57.4 | 50.0 - 70.0 % | [facility] | | | % | | | LABORATORY | | | | | | SERVICES, | | | | | | CORE | | + + + + + + | LYMPHOCYTE | 36.5 | 18.0 - 42.0 % | [facility] | | | % | | | LABORATORY | | | | | | SERVICES, | | | | | | CORE | | + + + + + + | MONOCYTE % | 6.1 | 3.5 - 9.0 % | [facility] [...] + + + + | NEUTROPHIL | 0.98 (L) | 1.80 - 7.70 | [facility] | | | # | | K/cu mm | LABORATORY | | | | | | SERVICES, | | | | | | CORE | | + + + + + + | LYMPHOCYTE | 0.62 (L) | 1.00 - 4.80 | [facility] [...] are included in the neutrophil count. | SERVICESSCOOBY | + + + + + + + + | Performing | Address | City/State/Zipcode | Phone Number | | Organization | | | | + + + + + | [facility] | [address] | [place] [address] | | | SERVICES, SCOOBY | [address] | | | + + + + + CBC AND AUTO DIFF (08/11/2016 6:04 AM PST) + + + + + + | Component | Value | Ref Range | Performed | Pathologist | | | | | At | Signature | + + + + + + | WHITE CELL | 1.71 (L) | 3.50 - 10.80 | [facility] | | | COUNT | | K/cu mm | LABORATORY | | | | | | SERVICES, | | | | | | CORE | | + + + + + + | RED CELL | 2.01 (L) | 4.00 - 5.20 | [facility] | | | COUNT | | M/cu mm | LABORATORY | | | | | | SERVICES, | | | | | | CORE | | + + + + + + | HEMOGLOBIN | 6.0 (LL) | 12.0 - 16.0 | [facility] | | | | | g/dL | LABORATORY | | | | | | SERVICES, | | | | | | CORE | | + + + + + + | HEMATOCRIT | 17.8 (LL) | 36.0 - 46.0 % | [facility] [...] + + + + | MCHC | 33.7 | 33.0 - 35.5 | [facility] | | | | | g/dL | LABORATORY | | | | | | SERVICES, | | | | | | CORE | | + + + + + + | RDW SD | 45.7 | 35.1 - 46.3 fL | [facility] | | | | | | LABORATORY | | | | | | SERVICES, | | | | | | CORE | | + + + + + + | PLATELET | 27 (L) | 150 - 400 K/cu | [...] [facility] | [address] | [place] [address] | | | SERVICES, CORE | [address] | | | + + + + + PHOSPHORUS, PLASMA (08/11/2016 6:04 AM PST) + +-------+ + + + [...] | + + + + + | [facility] | [address] | [place] [address] | | | SERVICES, CORE | [address] | | | + + + + + MAGNESIUM, PLASMA (08/11/2016 6:04 AM PST) + +---------+ + + + | Component | Value | Ref Range | Performed | Pathologist | | | | | At | Signature | + +---------+ + + + | MAGNESIUM,P | 1.7 (L) | 1.8 - 2.5 mg/dL | [...] | + + + + + | [facility] | [address] | [place] [address] | | | SERVICES, CORE | [address] | | | + + + + + COMPLETE METABOLIC SET (NA,K,CL,CO2,BUN,CREAT,GLUC,CA,AST,ALT,BILI TOTAL,ALK PHOS,ALB,PROT TOTAL) (08/11/2016 6:04 AM PST) + + + + + + | Component | Value | Ref Range | Performed | Pathologist | | | | | At | Signature | + + + + + + | GLUCOSE, | 91 | 60 - 99 mg/dL | [facility] | | | PLASMA | | | LABORATORY | | | (LAB) | | | SERVICES, | | | | | | CORE | | + + + + + + | BUN, PLASMA | 24 (H) | 6 - 20 mg/dL | [facility] | | | (LAB) | | | LABORATORY | | | | | | SERVICES, | | | | | | CORE | | + + + + + + | CREATININE | 1.45 (H) | 0.60 - 1.10 | [facility] | | | PLASMA | | mg/dL | LABORATORY | | | (LAB) | | | SERVICES, | | | | | | CORE | | + + + + + + | EGFR | 55 (L) | >60 mL/min | [facility] | | | - | | | LABORATORY | | | TOGOLESE | | | SERVICES, | | | | | | CORE | | + + + + + + | EGFR NON | 45 (L) | >60 mL/min | [facility] | | | -RAOUL | | | LABORATORY | | | RICAN | | | SERVICES, | | | | | | CORE | | + + + + + + | SODIUM, | 145 [...] + + + + | CHLORIDE, | 113 (H) | 97 - 108 mmol/L | [...] + + + + | CALCIUM, | 8.2 (L) | 8.6 - 10.2 | [facility] | | | PLASMA | | mg/dL | LABORATORY | | | (LAB) | | | SERVICES, | | | | | | CORE | | + + + + + + | CALCIUM(ALB | 9.0 | 8.6 - 10.2 | [facility] | | | CORRECTED) | | mg/dL | LABORATORY | | | | | | SERVICES, | | | | | | CORE | | + + + + + + | BILIRUBIN | 1.0 | 0.3 - 1.2 mg/dL | [facility] | | | TOTAL | | | LABORATORY | | | | | | SERVICES, | | | | | | CORE | | + + + + + + | TOTAL | 5.6 [...] + + + | ALK PHOS | 97 | 42 - 98 U/L | [facility] | | | | | | LABORATORY | | | | | | SERVICES, | | | | | | CORE | | + + + + + + | AST(SGOT) | 29 | <=41 U/L | [facility] | | [...] + + + + | ANION | 11 [...] | + + + + + | [facility] | [address] | [place] [address] | | | SERVICES, SCOOBY | [address] | | | + + + + + LDH TOTAL, PLASMA (08/11/2016 6:04 AM PST) + +---------+ + + + | Component | Value | Ref Range | Performed | Pathologist | | | | | At | Signature | + +---------+ + + + | LD TOTAL, | 406 (H) | <=250 U/L | [facility] | [...] [facility] | [address] | [place] [address] | | | SERVICES, CORE | [address] | | | + + + + + BILIRUBIN DIRECT (08/11/2016 6:04 AM PST) + +---------+ + + + | Component | Value | Ref Range | Performed | Pathologist | | | | | At | Signature | + +---------+ + + + | BILIRUBIN | 0.2 | 0.0 - 0.3 mg/dL | [facility] [...] | + + + + + | [facility] | [address] | [place] [address] | | | SERVICES, CORE | [address] | | | + + + + + URIC ACID, PLASMA (08/11/2016 6:04 AM PST) + +-------+ + + + | Component | Value | Ref Range | Performed | Pathologist | | | | | At | Signature | + +-------+ + + + | URIC ACID, | 3.2 | 2.5 - 6.2 mg/dL | [facility] [...] [facility] | [address] | [place] [address] | | | SERVICES, CORE | [address] | | | + + + + + HCG URINE, POC (08/10/2016 11:18 PM PST) + + + + + [...] + | [facility] | [address] | [place], [place] | | | [place] POINT OF CARE | [address] | [address] | | | TESTS | | | | + + + + + CULTURE, BLOOD BACTI & YEAST [facility] (08/10/2016 11:07 PM PST) + + + + + [...] | + + + + + | [facility] | [address] | [place] [address] | | | SERVICES, CORE | [address] | | | + + + + + CULTURE, BLOOD BACTI & YEAST [facility] (08/10/2016 11:07 PM PST) + + + + + [...] [facility] | [address] | [place] [address] | | | ELISA, SCOOBY | [address] | | | + + + + + CULTURE, BLOOD BACTI & YEAST [facility] (08/10/2016 9:34 PM PST) + + + + + [...] | + + + + + | [facility] | [address] | [place] [address] | | | SERVICES, CORE | [address] | | | + + + + + X-RAY CHEST 2 VIEW (08/10/2016 9:32 PM PST) + + + + + + | Component | Value | Ref Range | Performed | Pathologist | | | | | At | Signature | + + + + + + | CHEST, 2 | EXAM: CHEST 2 VIEWS | | | | | VIEWS [place] | 08/10/16 21:32:00 | | | | | STEREO | HISTORY: Acute chest | | | | | | pain COMPARISON: | | | | | | 08/03/16 FINDINGS: Right | | | | | | upper shunt PICC in | | | | | | unchanged | | | | | | position. The | | | | | | cardiomediastinal | | | | | | contour isnormal. The | | | | | | lungs are clear. There | | | | | | is no definite pleural | | | | | | effusion. There is | | | | | | nopulmonary edema or | | | | | | pneumothorax. The bones | | | | | | are intact. IMPRESSION: | | | | | | Clear lungs Attending | | | | | | Radiologists: ANASTASIA Gibbons | | | | | | CHEVY MDAuthor: | | | | | | FABIAN LOOMIS MD I | | | | | [...] | | | | | | CHEVY 08/11/2016 8:31 | | | | | | [...] | | | + +---------+ + + ED BG-LAC,POC (08/10/2016 9:16 PM PST) + +--------+ + + + | Component | Value | Ref Range | Performed | Pathologist | | | | | At | Signature | + +--------+ + + + | ED BG POC | 22 (L) | 23 - 29 mmol/L | [facility] - | | | TC02 | | | [facility] | | | | | | MERRY [facility] | | | | | | OF CARE | | | | | | TESTS | | + +--------+ + + + | ED BG POC | 7.38 | 7.35 - 7.45 | [facility] - | | | PH | | | [facility] | | | | | | M[facility]Y [facility] | | | | | | OF CARE | | | | | | TESTS | | + +--------+ + + + | ED BG POC | 37 | 35 - 50 mmHg | [facility] - | | | PCO2 | | | [facility] | | | | | | ALYSSA, POINT | | | | | | OF CARE | | | | | | TESTS | | + +--------+ + + + | ED BG POC | 22 (L) | 22 - 28 mmol/L | [facility] - | | | HCO3 | | | [facility] | | | | | | AL[place]SS[place], POINT | | | | | | OF CARE | | | | | | TESTS | | + +--------+ + + + | ED BG POC | -3.0 | mmol/L | [facility] - | | | BE | | | [facility] | | | | | | [place], POINT | | | | | | OF CARE | | | | | | TESTS | | + +--------+ + + + | ED BG POC | <50 | 30 - 55 mmHg | [facility] - | | | PO2 | | | [facility] | | | | | | [place], POINT | | | | | | OF CARE | | | | | | TESTS | | + +--------+ + + + | ED BG POC | 50 | % | [facility] - | | | SO2 | | | [facility] | | | | | | [place], POINT | | | | | | OF CARE | | | | | | TESTS | | + +--------+ + + + | ED LACTATE | 1.8 | 0.5 - 2.2 | [facility] - | | | POC | | mmol/L | [facility] | | | | | | ALYSSA, POINT | | | | | | OF CARE | | | | | | TESTS | | + +--------+ + + + | ED BG POC | 38.5 C | | [facility] - | | | TEMP | | | [facility] | | | | | | ALYSS[place], POINT | | | | | | OF CARE | | | | | | TESTS | | + +--------+ + + + | ISTAT | VENOUS | | [facility] - | | | SAMPLE TYPE | | | [facility] | | | | | | [place], POINT | | | | | | OF CARE | | | | | | TESTS | | + +--------+ + + + + + | Specimen | + + | | + + + + + + + | Performing | Address | City/State/Zipcode | Phone Number | | Organization | | | | + + + + + | [facility] | [address] | [place], [place] | | | M[facility]Y SH[place] OF CARE | [address] | [address] | | | TESTS | | | | + + + + + CULTURE, BLOOD BACTI & YEAST [facility] (08/10/2016 8:53 PM PST) + + + + + [...] [facility] | [address] | [place] [address] | | | SERVICES, [place]OO[place] | [address] | | | + + + + + CBC AND AUTO DIFF (08/10/2016 8:53 PM PST) + + + + + + | Component | Value | Ref Range | Performed | Pathologist | | | | | At | Signature | + + + + + + | WHITE CELL | 1.03 (L) | 3.50 - 10.80 | [facility] [...] + + + + | HEMATOCRIT | 19.6 (L) | 36.0 - 46.0 % | [facility] | | | | | | LABORATORY | | | | | | SERVICES, | | | | | | CORE | | + + + + + + | MCV | 89.9 | 80.0 - 96.0 fL | [facility] | | | | | | LABORATORY | | | | | | SERVICES, | | | | | | CORE | | + + + + + + | MCHC | 33.7 | 33.0 - 35.5 | [facility] | | | | | g/dL | LABORATORY | | | | | | SERVICES, | | | | | | CORE | | + + + + + + | RDW SD | 46.9 (H) | 35.1 - 46.3 fL | [facility] | | | | | | LABORATORY | | | | | | SERVICES, | | | | | | CORE | | + + + + + + | PLATELET | 32 (L) | 150 - 400 K/cu | [facility] | | | COUNT | | mm | LABORATORY | | | | | | SERVICES, | | | | | | CORE | | + + + + + + | MPV | 12.7 (H) | 9.7 - 12.3 fL | [facility] [...] [facility] | [address] | [place] [address] | | | SERVICES, CORE | [address] | | | + + + + + URINE, MICROSCOPIC EXAM (08/10/2016 8:53 PM PST) + +---------+ + + + | Component | Value | Ref Range | Performed | Pathologist | | | | | At | Signature | + +---------+ + + + | RED CELLS | 1 | 0 - 3 /hpf | [facility] | | | | | | LABORATORY | | | | | | SERVICES, | | | | | | CORE | | + +---------+ + + + | WHITE CELLS | 3 | 0 - 5 /hpf | [facility] | | | | | | LABORATORY | | | | | | SERVICES, | | | | | | CORE | | + +---------+ + + + | BACTERIA | Few (A) | None /hpf | [facility] | | | | | | LABORATORY | | | | | | SERVICES, | | | | | | CORE | | + +---------+ + + + | YEAST (LAB) | None | None /hpf | [facility] | | | | | | LABORATORY | | | | | | SERVICES, | | | | | | CORE | | + +---------+ + + + | SQUAMOUS | Few (A) | None /hpf | [facility] | | | EPITHELIAL | | | LABORATORY | | | | | | SERVICES, | | | | | | CORE | | + +---------+ + + + | MUCOUS | None | None /hpf | [facility] | | | | | | LABORATORY | | | | | | SERVICES, | | | | | | CORE | | + +---------+ + + + | TRICHOMONAS | None | None /hpf | [facility] | | | | | | LABORATORY | | | | | | SERVICES, | | | | | | CORE | | + +---------+ + + + | NON-SQUAMOU | Few (A) | None /hpf | [facility] | | | S EPITH | | | LABORATORY | | | | | | SERVICES, | | | | | | CORE | | + +---------+ + + + | HYALINE | 0 | 0 - 2 /lpf | [facility] | | | CASTS | | | LABORATORY | | | | | | SERVICES, | | | | | | CORE | | + +---------+ + + + | GRANULAR | 0 | 0 - 2 /lpf | [facility] | | | CASTS | | | LABORATORY | | | | | | SERVICES, | | | | | | CORE | | + +---------+ + + + | CELLULAR | 0 | <=0 /lpf | [facility] | | | CASTS | | | LABORATORY | | | | | | SERVICES, | | | | | | CORE | | + +---------+ + + + | TRIPLE P04 | None | None /hpf | [facility] | | | CRYSTALS | | | LABORATORY | | | | | | SERVICES, | | | | | | CORE | | + +---------+ + + + | CALCIUM | None | None /hpf | [facility] | | | OXALATE | | | LABORATORY | | | FREDDY | | | SERVICES, | | | | | | CORE | | + +---------+ + + + | URIC ACID | None | None /hpf | [facility] | | | CRYSTALS | | | LABORATORY | | | | | | SERVICES, | | | | | | CORE | | + +---------+ + + + | AMORPHOUS | Few (A) | None /hpf | [facility] | | [...] [facility] | [address] | [place] [address] | | | SERVICES, CORE | [address] | | | + + + + + URINE SCREEN FOR CULTURE (08/10/2016 8:53 PM PST) + + + + + + | Component | Value | Ref Range | Performed | Pathologist | | | | | At | Signature | + + + + + + | URINE | Positive (A) | Negative | [facility] | | | SCREEN FOR | | | LABORATORY | | | CULTURE | | | SERVICES, | | | | | | CORE | | + + + + + + + + | Specimen | + + | Urine | + + + + + | Narrative | Performed At | + + + | Culture Screen Positive, specimen sent for culture. | [facility] | | | LABORATORY | | | SERVICES, CORE | + + + + + + + + | Performing | Address | City/State/Zipcode | Phone Number | | Organization | | | | + + + + + | [facility] | [address] | [place] [address] | | | SERVICES, CORE | [address] | | | + + + + + COAGULOPATHY PANEL (INR,APTT,FIBRINOGEN) (08/10/2016 8:53 PM PST) + + + + + [...] + + + + + + | APTT | 24.0 (L) | 26.0 - 36.0 | [facility] | | | | | seconds | LABORATORY | | | | | | SERVICES, | | | | | | CORE | | + + + + + + | FIBRINOGEN | 412 | 200 - 450 mg/dL | [facility] | | | LEVEL | | | LABORATORY | | | [...] | Venous Thromboembolism (2.0 - 3.0) INR | LABORATORY | | INR for most patients with mech. valves (2.5 - 3.5) INR | SERVICES, CORE | | APTT Therapeutic Range: (75 - | | | 120) sec Heparin levels of 0.35 - 0.7 U/mL | | + + + + + + + + | Performing | Address | City/State/Zipcode | Phone Number | | Organization | | | | + + + + + | [facility] | [address] | [place] [address] | | | SERVICES, CORE | [address] | | | + + + + + COMPLETE METABOLIC SET (NA,K,CL,CO2,BUN,CREAT,GLUC,CA,AST,ALT,BILI TOTAL,ALK PHOS,ALB,PROT TOTAL) (08/10/2016 8:53 PM PST) + + + + + [...] + + + | BUN, PLASMA | 23 (H) | 6 - 20 mg/dL | [facility] | | | (LAB) | | | LABORATORY | | | | | | SERVICES, | | | | | | CORE | | + + + + + + | CREATININE | 1.62 (H) | 0.60 - 1.10 | [facility] | | | PLASMA | | mg/dL | LABORATORY | | | (LAB) | | | SERVICES, | | | | | | CORE | | + + + + + + | EGFR | 48 (L) | >60 mL/min | [facility] | | | - | | | LABORATORY | | | TOGOLESE | | | SERVICES, | | | | | | CORE | | + + + + + + | EGFR NON | 40 (L) | >60 mL/min | [facility] | | | -RAOUL | | | LABORATORY | | | RICAN | | | SERVICES, | | | | | | CORE | | + + + + + + | SODIUM, | 145 | 136 - 145 | [facility] | | | PLASMA | | mmol/L | LABORATORY | | | (LAB) | | | SERVICES, | | | | | | CORE | | + + + + + + | POTASSIUM, | 3.4 | 3.4 - 5.0 | [facility] | | | PLASMA | | mmol/L | LABORATORY | | | (LAB) | | | SERVICES, | | | | | | CORE | | + + + + + + | CHLORIDE, | 113 (H) | 97 - 108 mmol/L | [...] + + + + | CALCIUM, | 8.5 (L) | 8.6 - 10.2 | [facility] | | | PLASMA | | mg/dL | LABORATORY | | | (LAB) | | | SERVICES, | | | | | | CORE | | + + + + + + | CALCIUM(ALB | 9.0 | 8.6 - 10.2 | [facility] | | | CORRECTED) | | mg/dL | LABORATORY | | | | | | SERVICES, | | | | | | CORE | | + + + + + + | BILIRUBIN | 2.4 (H) | 0.3 - 1.2 mg/dL | [facility] | | | TOTAL | | | LABORATORY | | | | | | SERVICES, | | | | | | CORE | | + + + + + + | TOTAL | 6.5 | 6.4 - 8.2 g/dL | [facility] | | | PROTEIN, | | | LABORATORY | | | PLASMA | | | SERVICES, | | | (LAB) | | | CORE | | + + + + + + | ALBUMIN, | 3.4 (L) | 3.5 - 4.7 g/dL | [facility] | | | PLASMA | | | LABORATORY | | | (LAB) | | | SERVICES, | | | | | | CORE | | + + + + + + | ALK PHOS | 114 (H) | 42 - 98 U/L | [facility] | | | | | | LABORATORY | | | | | | SERVICES, | | | | | | CORE | | + + + + + + | AST(SGOT) | 26 | <=41 U/L | [facility] | | [...] + + + | ANION GAP | 12 | mmol/L | [facility] | | | [...] | + + + + + | [facility] | [address] | [place] [address] | | | [address] | [address] | | | + + + + + ISRA LOO (08/10/2016 8:53 PM PST) + +-------+ + + + | Component | Value | Ref Range | Performed | Pathologist | | | | | At | Signature | + +-------+ + + + | VANCOMYCIN, | 46.3 | 5.0 - 50.0 | [facility] | | | RANDOM | | ug/mL | LABORATORY | | [...] [facility] | [address] | [place] [address] | | | SERVICES, CORE | [address] | | | + + + + + CULTURE, URINE [facility] (08/10/2016 8:53 PM PST) + + + + + + | Component | Value | Ref Range | Performed | Pathologist | | | | | At | Signature | + + + + + + | URINE | No growth (<1000 cfu/mL) | | [facility] | | | CULTURE | after 24 hours | | LABORATORY | | | [facility] [...] | + + + + + | [facility] | [address] | [place] [address] | | | SERVICES, CORE | [address] | | | + + + + + MANUAL DIFFERENTIAL (08/10/2016 8:53 PM PST) + + + + + + | Component | Value | Ref Range | Performed | Pathologist | | | | | At | Signature | + + + + + + | NEUTROPHIL | 68.1 | 50.0 - 70.0 % | [facility] | | | % | | | LABORATORY | | | | | | SERVICES, | | | | | | CORE | | + + + + + + | LYMPHOCYTE | 26.5 | 18.0 - 42.0 % | [facility] | | | % | | | LABORATORY | | | | | | SERVICES, | | | | | | CORE | | + + + + + + | MONOCYTE % | 2.7 (L) | 3.5 - 9.0 % | [facility] | | | | | | LABORATORY | | | | | | SERVICES, | | | | | | CORE | | + + + + + + | EOSINOPHIL | 0.9 (L) | 1.0 - 3.0 % | [...] + + + + | IG% | 1.8 (H)Comment: Immature | 0.0 - 0.6 % [...] + + + + | NEUTROPHIL | 0.70 (L) | 1.80 - 7.70 | [facility] | | | # | | K/cu mm | LABORATORY | | | | | | SERVICES, | | | | | | CORE | | + + + + + + | LYMPHOCYTE | 0.27 (L) | 1.00 - 4.80 | [facility] | | | # | | K/cu mm | LABORATORY | | | | | | SERVICES, | | | | | | CORE | | + + + + + + | MONOCYTE # | 0.03 (L) | 0.10 - 0.90 | [facility] | | | | | K/cu mm | LABORATORY | | | | | | SERVICES, | | | | | | CORE | | + + + + + + | EOSINOPHIL | 0.01 | 0.00 - 0.50 | [...] | + + + + + | 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) | + + | MRSA bacteremia Bacteremia | + + | Pancytopenia due to chemotherapy (HCC) Antineoplastic chemotherapy induced | | pancytopenia | + + | RED CELL ANTIBODIES - allow additional time for crossmatch Other transfusion reaction | + + documented in this encounter Administered Medications + +--------+ +--------+------+------+ | Medication Order | MAR | Action | Dose | Rate | Site | | | Action | Date | | | | + +--------+ +--------+------+------+ | acetaminophen (TYLENOL) oral | Given | 08/12/20 | 650 mg | | | | suspension 325-650 mg 325-650 | | 16 5:39 | | | | | mg, oral, EVERY 4 HOURS | | AM PST | | | | | NEEDED, Starting Tue08/11/16 at | | | | | | | 1525, Until Tue08/12/16 at 1923, | | | | | | | mild pain, fever, blood product | | | | | | | premedication | | | | | | + +--------+ +--------+------+------+ +-------+ +--------+---+---+ | Given | 08/11/20 | 650 mg | | | | | 16 4:06 | | | | | | PM PST | | | | +-------+ +--------+---+---+ +---+---+ | | | +---+---+ + +-------+ +--------+---+---+ | acyclovir (ZOVIRAX) oral | Given | 08/12/20 | 800 mg | | | | suspension 800 mg 800 mg, oral, | | 16 8:20 | | | | | DAILY, First dose on Tue08/11/16 | | AM PST | | | | | at 1130, Until Discontinued | | | | | | + +-------+ +--------+---+---+ +-------+ +--------+---+---+ | Given | 08/11/20 | 800 mg | | | | | 16 11:37 | | | | | | AM PST | | | | +-------+ +--------+---+---+ +---+---+ | | | +---+---+ + +---------+ +-----+---+---+ | ceFEPime IV 2 grams in NS (MB+) | New Bag | 08/10/20 | 2 g | | | | 2 g, intravenous, ONCE, 1 dose, | | 16 10:46 | | | | | 08/10/16 at 2230 | | PM PST | | | | + +---------+ +-----+---+---+ +---+---+ | | | +---+---+ + +---------+ +-----+---+---+ | ceFEPime IV 2 grams in NS (MB+) | New Bag | 08/12/20 | 2 g | | | | 2 g, intravenous, EVERY 12 | | 16 9:43 | | | | | HOURS, First dose on Tue08/11/16 | | AM PST | | | | | at 1000, Until Discontinued | | | | | | + +---------+ +-----+---+---+ +---------+ +-----+---+---+ | New Bag | 08/11/20 | 2 g | | | | | 16 9:42 | | | | | | PM PST | | | | +---------+ +-----+---+---+ | New Bag | 08/11/20 | 2 g | | | | | 16 10:04 | | | | | | AM PST | | | | +---------+ +-----+---+---+ +---+---+ | | | +---+---+ + +-------+ +-------+---+---+ | diphenhydrAMINE (BENADRYL) | Given | 08/12/20 | 25 mg | | | | injection 25 mg 25 mg, | | 16 5:58 | | | | | intravenous, EVERY 6 HOURS | | AM PST | | | | | NEEDED, Starting Nia 08/12/16 at | | | | | | | 0531, Until Nia 08/12/16 at 1923, | | | | | | | allergic reaction | | | | | | + +-------+ +-------+---+---+ +---+---+ | | | +---+---+ + +-------+ +-------+---+---+ | diphenhydrAMINE (BENADRYL) oral | Given | 08/11/20 | 25 mg | | | | solution 25 mg 25 mg, oral, | | 16 4:06 | | | | | ONCE, 1 dose, 08/11/16 at | | PM PST | | | | | 1600 | | | | | | + +-------+ +-------+---+---+ +---+---+ | | | +---+---+ + +-------+ +-------+---+--------+ | enoxaparin (LOVENOX) injection | Given | 08/11/20 | 40 mg | | Right | | 40 mg 40 mg, subcutaneous, EVERY | | 16 9:42 | | | Leg | | EVENING, First dose on Wed | | PM PST | | | | | 08/11/16 at 2100, Until | | | | | | | Discontinued | | | | | | + +-------+ +-------+---+--------+ +---+---+ | | | +---+---+ + +-------+ +-------+---+---+ | escitalopram oxalate (LEXAPRO) | Given | 08/11/20 | 10 mg | | | | tablet 10 mg 10 mg, oral, EVERY | | 16 9:42 | | | | | EVENING, First dose on Wed | | PM PST | | | | | 16 at 2100, Until | | | | | | | Discontinued | | | | | | + +-------+ +-------+---+---+ +---+---+ | | | +---+---+ + +-------+ +-------+---+---+ | famotidine (PEPCID) tablet 20 | Given | 08/12/20 | 20 mg | | | | mg 20 mg, oral, TWICE DAILY, | | 16 8:20 | | | | | First dose on Tue08/11/16 at | | AM PST | | | | | 0900, Until Discontinued | | | | | | + +-------+ +-------+---+---+ +-------+ +-------+---+---+ | Given | 08/11/20 | 20 mg | | | | | 16 9:42 | | | | | | PM PST | | | | +-------+ +-------+---+---+ | Given | 08/11/20 | 20 mg | | | | | 16 10:05 | | | | | | AM PST | | | | +-------+ +-------+---+---+ +---+---+ | | | +---+---+ + +-------+ +---------+---+--------+ | filgrastim-sndz (BOBRXIO) | Given | 08/12/20 | 480 mcg | | Right | | injection 480 mcg 480 mcg, | | 16 11:07 | | | Arm | | subcutaneous, ONCE, 1 dose, Nia | | AM PST | | | | | 08/12/16 at 1030 | | | | | | + +-------+ +---------+---+--------+ +---+---+ | | | +---+---+ + +-------+ +--------+---+---+ | fluconazole (DIFLUCAN) | Given | 08/12/20 | 400 mg | | | | suspension 400 mg 400 mg, oral, | | 16 8:20 | | | | | DAILY, First dose on Tue08/11/16 | | AM PST | | | | | at 0900, Until Discontinued | | | | | | + +-------+ +--------+---+---+ +-------+ +--------+---+---+ | Given | 08/11/20 | 400 mg | | | | | 16 10:04 | | | | | | AM PST | | | | +-------+ +--------+---+---+ +---+---+ | | | +---+---+ + +---------+ + +---+---+ | lactated ringers IV 1,000 mL, | New Bag | 08/10/20 | 1,000 mL | | | | intravenous, ONCE, 1 dose, Tue | | 16 10:47 | | | | | 08/10/16 at 2230 | | PM PST | | | | + +---------+ + +---+---+ +---+---+ | | | +---+---+ + + + +-------+-------+---+ | lactated ringers IV 100 mL/hr, | Rate/Dos | 08/12/20 | 100 | 100 | | | intravenous, CONTINUOUS, | e Verify | 16 6:00 | mL/hr | mL/hr | | | Starting 08/11/16 at 0200, | | AM PST | | | | | Until Nia 08/12/16 at 1923 | | | | | | + + + +-------+-------+---+ + + +-------+-------+---+ | Rate/Dose Verify | 08/12/20 | 100 | 100 | | | | 16 12:00 | mL/hr | mL/hr | | | | AM PST | | | | + + +-------+-------+---+ | Rate/Dose Verify | 08/11/20 | 100 | 100 | | | | 16 4:46 | mL/hr | mL/hr | | | | PM PST | | | | + + +-------+-------+---+ +---+---+ | | | +---+---+ + +---------+ + +---+---+ | lactated ringers IV 1,000 mL, | New Bag | 08/10/20 | 1,000 mL | | | | intravenous, ONCE, 1 dose, Wed | | 16 11:56 | | | | | 08/11/16 at 0030 | | PM PST | | | | + +---------+ + +---+---+ +---+---+ | | | +---+---+ + +-------+ +--------+---+---+ | LORazepam (ATIVAN) tablet 0.5 | Given | 08/12/20 | 0.5 mg | | | | mg 0.5 mg, oral, EVERY 6 HOURS | | 16 6:41 | | | | | NEEDED, Starting 08/11/16 | | AM PST | | | | | at 0158, Until Nia 08/12/16 at | | | | | | | 1923, anxiety, nausea, vomiting | | | | | | + +-------+ +--------+---+---+ +-------+ +--------+---+---+ | Given | 08/11/20 | 0.5 mg | | | | | 16 5:40 | | | | | | PM PST | | | | +-------+ +--------+---+---+ | Given | 08/11/20 | 0.5 mg | | | | | 16 11:12 | | | | | | AM PST | | | | +-------+ +--------+---+---+ +---+---+ | | | +---+---+ + +---------+ + +---+---+ | NaCl 0.9 % solution 1,000 mL, | New Bag | 08/10/20 | 1,000 mL | | | | intravenous, NEEDED, 1 dose, | | 16 9:20 | | | | | Starting Tue08/10/16 at 2100, | | PM PST | | | | | Until Tue08/10/16 at 2247, | | | | | | | dehydration | | | | | | + +---------+ + +---+---+ +---+---+ | | | +---+---+ + +-------+ +---------+---+---+ | norethindrone (ORTHO MICRONOR) | Given | 08/12/20 | 0.35 mg | | | | tablet 0.35 mg 0.35 mg, oral, | | 16 8:21 | | | | | DAILY, First dose on Tue08/11/16 | | AM PST | | | | | at 0900, Until Discontinued | | | | | | + +-------+ +---------+---+---+ +-------+ +---------+---+---+ | Given | 08/11/20 | 0.35 mg | | | | | 16 10:05 | | | | | | AM PST | | | | +-------+ +---------+---+---+ +---+---+ | | | +---+---+ + +-------+ +-------+---+---+ | OLANZapine (ZYPREXA ZYDIS) | Given | 08/11/20 | 10 mg | | | | disintegrating tablet 10 mg 10 | | 16 9:42 | | | | | mg, oral, AT BEDTIME, First dose | | PM PST | | | | | on Tue08/11/16 at 2200, Until | | | | | | | Discontinued | | | | | | + +-------+ +-------+---+---+ +---+---+ | | | +---+---+ + +-------+ +------+---+---+ | ondansetron (ZOFRAN) tablet 8 | Given | 08/12/20 | 8 mg | | | | mg 8 mg, oral, EVERY 12 HOURS | | 16 8:34 | | | | | NEEDED, Starting 08/11/16 at | | AM PST | | | | | 0158, Until Nia 08/12/16 at | | | | | | | 1923, nausea/vomiting | | | | | | + +-------+ +------+---+---+ +-------+ +------+---+---+ | Given | 08/11/20 | 8 mg | | | | | 16 11:51 | | | | | | AM PST | | | | +-------+ +------+---+---+ +---+---+ | | | +---+---+ + +---------+ +--------+---+------+ | potassium chloride IV (central | New Bag | 08/12/20 | 40 mEq | | PICC | | line) 40 mEq 40 mEq, | | 16 6:09 | | | | | intravenous, NEEDED, Starting | | AM PST | | | | | 08/11/16 at 0158, Until Nia | | | | | | | 08/12/16 at 1923, potassium level | | | | | | | of 3-3.4 mmol/L. Administer if | | | | | | | patient intolerant of oral | | | | | | | medications. | | | | | | + +---------+ +--------+---+------+ + +---+ | | | + +---+ | potassium chloride IV (central | | | line) 60 mEq 60 mEq, | | | intravenous, NEEDED, Starting | | | [facility] 08/11/16 at 0158, Until Nia | | | 08/12/16 at 1923, potassium level | | | less than or equal to 2.9 mmol/L | | + +---+ | | | + +---+ | potassium phosphate IV 30 mmol | | | 30 mmol, intravenous, NEEDED, | | | Starting Tue08/11/16 at 0158, | | | Until [facility] 08/12/16 at 1923, | | | Potassium less than or equal to | | | 3.4 mmol/L AND Phosphate less | | | than or equal to 2 mg/dL. | | + +---+ | | | + +---+ | potassium phosphate IV 40 mmol | | | 40 mmol, intravenous, NEEDED, | | | Starting 08/11/16 at 0158, | | | Until [facility] 08/12/16 at 1923, | | | Potassium less than or equal to | | | 2.9 mmol/L AND Phosphate less | | | than or equal to 1.5 mg/dL. | | + +---+ | | | + +---+ + +-------+ +--------+---+---+ | ursodiol 60 mg/mL suspension | Given | 08/12/20 | 600 mg | | | | (compound) 600 mg 600 mg, oral, | | 16 8:19 | | | | | TWICE DAILY, First dose on Tue | | AM PST | | | | | 08/11/16 at 1130, Until | | | | | | | Discontinued | | | | | | + +-------+ +--------+---+---+ +-------+ +--------+---+---+ | Given | 08/11/20 | 600 mg | | | | | 16 9:42 | | | | | | PM PST | | | | +-------+ +--------+---+---+ | Given | 08/11/20 | 600 mg | | | | | 16 11:37 | | | | | | AM PST | | | | +-------+ +--------+---+---+ +---+---+ | | | +---+---+ + +---------+ + +---+---+ | vancomycin (VANCOCIN) IV 1,500 | New Bag | 08/12/20 | 1,500 mg | | | | mg 1,500 mg, intravenous, ONCE, | | 16 10:46 | | | | | 1 dose, [facility] 08/12/16 at 0915 | | AM PST | | | | + +---------+ + +---+---+ +---+---+ | | | +---+---+ documented in this encounter
--- OUTSIDE RECORDS SUMMARY | ~2019-01-06 | XMS | Encounter Summary ---
Demographics + + + | Address | [address] | | | [place] [address] | + + + | Home Phone | | + + + | Preferred Language | Unknown | + + + | Marital Status | | + + + | Confucianist Affiliation | NON | + + + [...] Team Providers + +------+ + | Care Home [employer]ot Rep Name | Role | Phone | + [...] Aquino | | | | | | [facility] | | | | | | Mailcode: [id number] | | | | | | Joanne [address] | | | | | | [place], [place] | | | | | | [address] | | | | | | [phone] | | | +--------+ + + + [...]
--- OUTSIDE RECORDS SUMMARY | ~2019-01-06 | XMS | Clinical Summary ---
Demographics + + + | Address | NEED ADDRESS | | | [place] [address] | + + + | Home Phone | | + + + | Preferred Language | Unknown | + + + | Marital Status | Single | + + + | Tenriism Affiliation | Unknown | + + + | Race | Unknown | + + + | Ethnic Group | Unknown | + + + Author + + + | Author | [facility] | | | and [place] | + + + | Organization | [facility] | | | and [place] | + + + | Address | Unknown | + + + | Phone | Unavailable | + + + Support + + + + + | Name | Relationship | Address | Phone | + + + + + | RicciQamar | ECON | [address] | | | | | [place] | | | | | [address] | | + + + + + | Merlyn Hernandez | ECON | [address] | | | | | [place] | | | | | [address] | | + + + + + Care Team Providers + +------+ + | Care Day Habilitation Supervisor Name | Role | Phone | [...] who | | reviewed her echocardiogram and [place] that her ejection fraction | | may be better than originally estimated.He recommended | | discontinuing lisinopril and continuing Coreg. He also suggested | | that there may be non-cardiac causes for dyspnea on exertion and | | tachycardia.Plan; discontinue lisinopril. We agreed to schedule | | pulmonary function testing after care is transferred to . | | [facility]. 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 Diagnosed in [place], [place] during initial treatment | | for Hodgkin's Lymphoma. 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 | | Genetic testing in process at [facility].2. Genetic testing at [facility] | | [employer]; no complement mutations identified. Last | | Assessment & Plan: Crystal Hernandez returned to clinic on | | [...] today. Next infusion in two weeks in [place], [place]. 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 1. Initial Diagnosis and management in | | [place], [place] in 2014: Crystal at age 19 [...] biopsy of Mediastinal mass, biopsy | | ([id number], 04/29/2015): Nodular sclerosis, classical Hodgkin's | | [...] 2016 she started treatment per | | [id number] for intermediate risk Hodgkin lymphoma on 05/10/15; [...] | | Left cervical lymph node, biopsy ([id number], 03/16/2016): Nodular | | sclerosis, classical Hodgkin's lymphoma 10. Placement of right | | anterior chest port-a-cath.11. Consultation with Dr. Quirino Moreno | | [facility] on March 22, 2016; Three cycles of | | gemcitabine/dexamethasone/cisplatin followed by HDCT/autoSCT.12. | | Cycle #1 gemcitabine/dexamethasone/cisplatin on April 22, | | 2015.13. Cycle #2 gemcitabine/dexamethasone/cisplatin on May | | 2015.14. Cycle #3 gemcitabine/dexamethasone/cisplatin on | | June 07, 2016.15. Bone Marrow Biopsy under conscious sedation | | June 21, 2016, Specimen # [id number] ([place], [facility] | | Diagnostics) "Evaluation of this [...] 11.2 gm/dL).18. | | PET/CT scan at [facility], [place], [place] | | June 28, 2016; "No obvious recurrent malignant disease within | | the range of the scan."19. HDCT with BEAM and autologous SCT at | | [facility] on July 21, 2016.20. Consultation with Dr. Quirino Moreno, | | [facility] department of hematological malignancies Aug 30, [...] | | | | | | [place] [address] | | | | | | [phone] | | | | | | | | +--------+ + + + + | 01/22/ | Appointment | | [place], | | | 2018 | | | MD Farida Camacho [address] | | | | | | [address] [place] | | | | | | [place] [address] | | | | | | [phone] | | | | | | | [...] Right: | BARD | | 05/14/ | [id number] | | [id number]: Qty: 1 on | | Chest | [...] + +------+ | MODA | MODA | [id number] | | [phone] | [address] | [address] | | | [address] | | [address] [phone] | [phone] | | | | [place] | | esent | | [place], | | | | [place] | | | | [place] [address] | | +-------+--------+ +--------+ + +------+ + [...] al/Richie | | 1996 | [phone] | [place] | | | matthew | | | [address] (Home) | [address] | + +--------+ +--------+ + + Advance Directives Patient has advance care planning documents, and code status on file. For more information, please contact:[facility] [place] [address] + + + + + | Code Status | Date | Date | Comments | | | Activated | Inactivated | | + + + + + | Full Code | 10/06/2016 | 10/06/2016 | | | | 13:51 | 17:31 | | + + + + +
--- OUTSIDE RECORDS SUMMARY | ~2019-01-06 | XMS | Encounter Summary ---
Demographics + + + | Address | [address] | | | [place] [address] | + + + | Home Phone [...] Team Providers + +------+ + | Care Supervisor Lending Activities Name | Role | Phone | + [...] [address] | | | | | | [place], [place] | | | | | | [address] | | | | | | [phone] | | | +--------+ + + + [...]
--- OUTSIDE RECORDS SUMMARY | ~2019-01-06 | XMS | Encounter Summary ---
Demographics + + + | Address | [address] | | | [place] [address] | + + + | Home Phone [...] + + | Author | [facility] | + + + | Organization | [facility] | + + + | Address | [...] Team Providers + +------+ + | Care Comedian Name | Role | Phone | + [...] | | | | Malignancies at | [facility] | | | | | [facility] | [place], [place] | | | | | [address] [facility] | [address] | | | | | [facility] | [phone] | | | | | Mailcode: [id number] | | | | | | [facility] | | | | | | [place], [place] | | | | | | [address] | | | | | | [phone] | | | +--------+ + + + [...]
--- OUTSIDE RECORDS SUMMARY | ~2019-01-06 | XMS | Encounter Summary ---
Demographics + + + | Address | [address] | | | [place] [address] | + + + | Home Phone | | + + + | Preferred Language | Unknown | + + + | Marital Status | | + + + | Bahai Affiliation | NON | + + + | Race | White | + + + | Ethnic Group | Not or | + + + Author + + + | Author | [facility] | + + + | Organization | [facility] | + + + | Address [...] Team Providers + +------+ + | Care Lubricating Machine Tender Name | Role | Phone | + +------+ + | No Pcp Per Patient | PCP | Unavailable | + +------+ + Reason for Visit Other (Routine) +--------+--------+ + + + + [...] | | | | sclerosis | [address] | [place] | | | | | Hodgkin | [facility] | [address] | | | | | lymphoma of | Rd | Mailcode: | | | | | lymph nodes | [place], [place] | [id number] | | | | | of multiple | [address] | [place] | | | | | regions | Phone: | [facility] | | | | | (HCC) | [phone] | [place], [place] | | | | | Procedures | Fax: | [address] | | | | | Autologous | [phone] | Phone: | | | | | SCT Eval | | [phone] | | | | | | | Fax: | | | | | | | [phone] | +--------+--------+ + + + + Encounter Details +--------+ + + + + | Date | Type | Department | Care Team | Description | +--------+ + + + + | 06/17/ | Hospital | Aphersis [facility] | | | | 2016 | Encounter | Floor [address] | | | | | | [facility] | | | | | | [address] | | | | | | [place], [place] | | | | | | [address] | | | | | | [phone] | | | +--------+ + + + [...] + + documented as of this encounter Medications at Time of Discharge [...] documented as of this encounter Progress Notes Hannah Stephen RN - 06/17/2016 12:08 PM PDTPatient had venous assessment performed in the Apheresis Unit using the Apheresis Venous Assessment Guide. Vein Assessment: Left Antecubital poor Right Antecubital poor Central Venous Catheter recommended YES Comments please clarify if she is getting a temporary apheresis cath or goodman. documented in this enc ounter Plan of Treatment Not on filedocumented as of this encounter Visit Diagnoses Not on filedocumented in this encounter"
--- OUTSIDE RECORDS SUMMARY | ~2019-01-06 | XMS | Encounter Summary ---
Demographics + + + | Address | [address] | | | [place] [address] | + + + | Home Phone [...] Team Providers + +------+ + | Care Aviation Safety Equipment Technician Name | Role | Phone | [...] | | | | Malignancies at | [facility] | | | | | [facility] | [place], [place] | | | | | [address] [facility] | [address] | | | | | [facility] | [phone] | | | | | Mailcode: [id number] | | | | | | [facility] | | | | | | [place], [place] | | | | | | [address] | | | | | | [phone] | | | +--------+ + + + [...]
--- OUTSIDE RECORDS SUMMARY | ~2019-01-06 | XMS | Encounter Summary ---
Demographics + + + | Address | [address] | | | [place] [address] | + + + | Home Phone [...] Team Providers + +------+ + | Care Measurement Coordinator Name | Role | Phone | + [...] Hematology | Diagnoses | Quirino Moreno | [facility] Faculty | | | | Malignancy | Nodular | MD Ronak,PhD | [facility] [address] | | | | | sclerosis | [address] | [address] | | | | | Hodgkin | [facility] | [facility] | | | | | lymphoma, | Rd | Mailcode: | | | | | lymph nodes | [place], [place] | [id number] | | | | | of multiple | [address] | [facility] | | | | | sites | Phone: | Pavilion | | | | | | [phone] | [place], [place] | | | | | | Fax: | [address] | | | | | | [phone] | Phone: | | | | | | | [phone] | | | | | | | Fax: | | | | | | | [phone] | +--------+--------+ + + + + Encounter [...] lymph nodes of | | | | [facility] | [place], [place] | multiple regions | | | | [address] | [address] | (HCC) (Primary Dx); | | | | [facility] | [phone] | Autologous bone | | | | Mailcode: [id number] | | marrow | | | | [facility] | | transplantation | | | | [place], [place] | | status (HCC) | | | | [address] | | | | | | [phone] | | | +--------+---------+ + + + [...] for autoBMT Local oncologist: Aashish Hilton MD (Located Within [facility]) Benign Hematology: Jim Michael MD ([facility]) Pediatric Heme/Onc: Anh Moreland MD ([place]) Nephrology: Raghav Miller MD ([place]) 04/2015 presented with flank pain CT C/A/P: 11 cm anterior mediastinal mass, pleural effusion & L supraclav adenopathy Needle bx: classical hodgkins, nodular sclerosing type Thoracentesis: reactive/benign BMBx: neg PET: bulky mediastinal mass, SUV 16; bilateral neck SUV 15; also R>L pleural effusion 05/10/15 began ABVE-PC (as per pediatric [id number]) via femoral line 05/16/15 presented with sepsis [...] L neck: classical Hodgkins Above therapy in [place] -> moved to 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 For complete details of her recent hospitalization, [...] if asymptomatic GI: Hx of GERD: Pepcid BUS PERSON -Prilosec 40 mg daily Nausea: ongoing, improved [...] [facility] AT [address] Mailcode: [place] [phone] documented in this encounter Plan of Treatment [...] [facility] | | | | | | [place] | | | | | | [...] [facility] | [address] | [place], [place] | | | [facility] OF [facility] | [address] | [address] | | | TESTS | | | [...] + + + | [facility] | [address] | [place], [place] | | | [facility] [facility] OF CARE | [address] | [address] | | | TESTS | | | [...] + | BYRD - AIRPORT - | [address] | [place] [address] | | | [place] | | | [...] [facility] | [address] | [place] [address] | | | SERVICES, CORE | PARK [...] | + + + + + | [facility] | [address] [facility] | [place] [address] | | | SERVICES, CORE | BLANCHE [...] [facility] | [address] | [place], [place] | | | [place] | [facility] | [address] | | | TESTS | | | [...] K[facility] | [address] | [place], [place] | | | [facility] OF [facility] | [address] | [address] | | | TESTS | | | [...]
--- OUTSIDE RECORDS SUMMARY | ~2019-01-06 | XMS | Encounter Summary ---
Demographics + + + | Address | [address] | | | [place] [address] | + + + | Home Phone | | + + + | Preferred Language | Unknown | + + + | Marital Status | | + + + | Judaism Affiliation | NON | + + + | Race | White | + + + | Ethnic Group | Not or | + + + Author + + + | Author | [facility] | + + + | Organization | [facility] | + + + | [...] Team Providers + +------+ + | Care Senior Nuclear Medicine Technologist Name | Role | Phone | + +------+ + | Aashish Hilton MD | PCP | | + +------+ + Encounter Details +--------+ + + + + | Date | Type | Department | Care Team | Description | +--------+ + + + + | 06/30/ | Hospital | Cardiac | Sjh, Car Ecg Tech | | | 2016 | Encounter | Non-Invasive Testing | [address] | | | | | at [facility] | [facility] | | | | | [address] | [place], [place] [facility] | | | | | [facility] | | | | | | Mailcode: [id number] [facility] | | | | | | [facility] | | | | | | [facility], | | | | | | [place] [address] | | | | | | [phone] | | | +--------+ + + + [...] mouth | 600 mL | 11 | 08/04/ | | | mL oral suspension | [...] | 12 LEAD ECG | Routin | 06/30/2016 | Hodgkin's disease, | Results for this | | | e | 10:06 AM | nodular sclerosis, | procedure are in the | | | | PST | of lymph nodes of | results section. | | | | | multiple sites (HCC) | | + +--------+ + + + documented in this encounter Results 12 LEAD ECG (06/30/2016 10:06 AM PST) + + + + + + | Component | Value | Ref Range | Performed | Pathologist | | | | | At | Signature | + + + + + + | VENTRICULAR | 102 | bpm | [facility] | | | RATE | | | OF | | | | | | CARDIOLOGY | | + + + + + + | ATRIAL RATE | 103 | ms | [facility] | | | | | | OF | | | | | | CARDIOLOGY | | + + + + + + | P-R | 132 | ms | [facility] | | | INTERVAL | | | OF | | | | | | CARDIOLOGY | | + + + + + + | P AXIS | 63 | deg | [facility] | | | | | | OF | | | | | | CARDIOLOGY | | + + + + + + | QRS | 80 | ms | [facility] | | | DURATION | | | OF | | | | | | CARDIOLOGY | | + + + + + + | QT | 340 | ms | [facility] | | | | | | OF | | | | | | CARDIOLOGY | | + + + + + + | QTCB | 443 | ms | [facility] | | | | | | OF | | | | | | CARDIOLOGY | | + + + + + + | R AXIS | -30 | deg | [facility] | | | | | | OF | | | | | | CARDIOLOGY | | + + + + + + | T AXIS | 44 | deg | [facility] | | | | | | OF | | | | | | CARDIOLOGY | | + + + + + + | ECG | SINUS TACHYCARDIA- | | [facility] | | | IMPRESSION | OTHERWISE NORMAL ECG - | | OF | | | | | | CARDIOLOGY | | + + + + + + | ECG | Electronically signed | | [facility] | | | IMPRESSION | by: ENRIQUETA FRANCIS | | OF | | | | 06-30-2016 10:54:01 | | CARDIOLOGY | | + + [...] | [facility] OF | [address] | [place], [place] | | | CARDIOLOGY | [facility] | [address] | | + + + + + documented in this encounter Visit Diagnoses Not on filedocumented in this encounter"
--- OUTSIDE RECORDS SUMMARY | ~2019-01-06 | XMS | Encounter Summary ---
Demographics + + + | Address | [address] | | | [place] [address] | + + + | Home Phone | | + + + | Preferred Language | Unknown | + + + | Marital Status | | + + + | Baptism Affiliation | NON | + + + [...] Team Providers + +------+ + | Care Fuel Cell Engineer Name | Role | Phone | [...] | | | | | Hodgkin | [facility] | [facility] | | | | | lymphoma, | Rd | Mailcode: | | | | | lymph nodes | [place], [place] | [id number] | | | | | of multiple | [address] | [place] | | | | | sites | Phone: | Pavilion | | | | | | [phone] | [place], [place] | | | | | | Fax: | [address] | | | | | | [phone] | Phone: | | | | | | | [phone] | | | | | | | Fax: | | | | | | | [phone] | +--------+--------+ + + + + Encounter Details +--------+---------+ + + + | Date | Type | Department | Care Team | Description | +--------+---------+ + + + | 08/26/ | Office | Center for | Quirino Moreno I, | Nodular sclerosis | | 2017 | Visit | Hematologic | ,PhD [address] [facility] | Hodgkin lymphoma of | | | | Malignancies at | [facility] [address] | lymph nodes of | | | | [facility] | [place], [place] | multiple regions | | | | [address] [facility] | [address] | (HCC) (Primary Dx); | | | | [address] | [phone] | 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
--- OUTSIDE RECORDS SUMMARY | ~2019-01-06 | XMS | Encounter Summary ---
Demographics + + + | Address | [address] | | | [place] [address] | + + + | Home Phone | | + + + | Preferred Language | Unknown | + + + | Marital Status | | + + + | Buddhist Affiliation | NON | + + + | Race | White | + + + | Ethnic Group | Not or | + + + Author + + + | Author | [facility] | + + + | Organization | [facility] | + + + | Address [...] Team Providers + +------+ + | Care Upper Tier Name | Role | Phone | + +------+ + | Aashish Hilton MD | PCP | | + +------+ + Reason for Visit + + + | Reason | Comments | + + + | Lab Draw | peripheral (has PAC) | + + + | Patient education | central line teaching | + + + Intake Referral (Urgent) [...] | | | | | [address] | [place], [place] | | | | | | [place], [place] | [address] | | | | | | [address] | Phone: | | | | | | Phone: | [phone] | | | | | | [phone] | Fax: | | | | | | Fax: | [phone] | | | | | | [phone] | | +--------+--------+ + + + + Encounter Details +--------+ + + + + | Date | Type | Department | Care Team | Description | +--------+ + + + + | 06/30/ | Clinical | Center for | | Lab Draw (peripheral | | 2016 | Support | Hematologic | | (has PAC)); Patient | | | Staff | Malignancies at [facility] | | education (central | | | | [address] | | line teaching) | | | | [facility] | | | | | | Mailcode: [id number] | | | | | | Joanne Herman | | | | | | [place], [place] | | | | | | [address] | | | | | | [phone] | | | +--------+ + + + [...] documented as of this encounter Progress Notes Michela Yarbrough RN - 06/30/2016 11:40 AM PSTPatient ambulated into clinic for scheduled lab draw, provider visit and line care teaching. She reports to be feeling well today. Patient seen very briefly before being taken to provider visit. Patient has PAC but requests periphe ral draw as she states her PAC has been accessed recently and is bruised. Labs drawn peripherally in exam room by KAMILA Restrepo. Labs drawn and sent. Tolerated proced ure well. Site dressed with sterile gauze and Coban. Patient scheduled for provider visit today with Dr. Moreno. Patient will be getting Reece placed on Tuesday and will not have another time for line ca re teaching until that time. Patient possibly coming back [place] evening for plerixafor, laurie e care to be reinforced at that time when patient actually has line. Instructed patient and caregiver regarding management of Reece to include thorough handwa shing prior to handling central line, dressing changes every 7 days and flushing each lumen of central line with 5 mL of 10 unit/mL Heparin daily per [facility] protocols and provided them w ith the handout, How to Care for you Central Line at Home . Reviewed handout, "Reece /Trifusion Central Line Catheter What to do if you experience the following . Provide d patient and caregiver with Emergency Supply Kit and reviewed how and when to utilize each item. Functionality of each item was reviewed with patient and caregiver. patient and caregiver verbalized understanding of all instructions and performed return demonstration ef fectively. Patient discharged ambulatory from clinic. Electronically signed by Michela Yarbrough RN at 4:04 PM Amber Anaya MA - 06/30/2016 11:40 AM PSTAttempted venipuncture in [facility] unsuccessfully. documented in this enco unter Plan of Treatment Not on filedocumented as of this encounter Procedures + +--------+ + + + | Procedure Name | Priori | Date/Time | Associated Diagnosis | Comments | | | ty | | | | + +--------+ + + + | CMP, POC (BMP+LFT) | Routin | 06/30/2016 | Nodular sclerosis | Results for this | | | e | 1:07 PM | Hodgkin lymphoma of | procedure are in the | | | | PST | lymph nodes of | results section. | | | | | multiple regions | | | | | | (HCC) | | + +--------+ + + + | CBC+DIFF,POC | Routin | 06/30/2016 | Nodular sclerosis | Results for this | | | e | 1:05 PM | Hodgkin lymphoma of | procedure are in the | | | | PST | lymph nodes of | results section. | | | | | multiple regions | | | | | | (HCC) | | + +--------+ + + + | HIV-1,2 AB/HIV-1 P24 | Routin | 06/30/2016 | Nodular sclerosis | Results for this | | AG SCRN | e | 12:09 PM | Hodgkin lymphoma of | procedure are in the | | | | PST | lymph nodes of | results section. | | | | | multiple regions | | | | | | (HCC) | | + +--------+ + + + | SEDIMENTATION RATE | Routin | 06/30/2016 | Nodular sclerosis | Results for this | | | e | 12:09 PM | Hodgkin lymphoma of | procedure are in the | | | | PST | lymph nodes of | results section. | | | | | multiple regions | | | | | | (HCC) | | + +--------+ + + + | HCG BETA QUANT, | Routin | 06/30/2016 | Nodular sclerosis | Results for this | | PLASMA | e | 12:09 PM | Hodgkin lymphoma of | procedure are in the | | | | PST | lymph nodes of | results section. | | | | | multiple regions | | | | | | (HCC) | | + +--------+ + + + | LDH TOTAL, PLASMA | Routin | 06/30/2016 | Nodular sclerosis | Results for this | | | e | 12:09 PM | Hodgkin lymphoma of | procedure are in the | | | | PST | lymph nodes of | results section. | | | | | multiple regions | | | | | | (HCC) | | + +--------+ + + + documented in this encounter Results CMP, POC (BMP+LFT) (06/30/2016 1:07 PM PST) + +--------+ + + + | Component | Value | Ref Range | Performed | Pathologist | | | | | At | Signature | + +--------+ + + + | SODIUM, POC | 136 | 134 - 143 | [facility] - | | | | | mmol/L | [facility] | | | | | | [place] | | | | | | OF CARE | | | | | | TESTS | | + +--------+ + + + | POTASSIUM, | 4.1 | 3.4 - 5.0 | [facility] - | | | POC | | mmol/L | [facility] | | | | | | [place] | | | | | | OF CARE | | | | | | TESTS | | + +--------+ + + + | TOTAL CO2, | 25 | 22 - 29 mmol/L | [facility] - | | | POC | | | [facility] | | | | | | [place] | | | | | | OF CARE | | | | | | TESTS | | + +--------+ + + + | CHLORIDE, | 105 | 97 - 108 mmol/L | [facility] - | | | POC | | | [facility] | | | | | | [place], POINT | | | | | | OF CARE | | | | | | TESTS | | + +--------+ + + + | GLUCOSE, | 88 | 60 - 99 mg/dL | [facility] - | | | POC | | | [facility] | | | | | | [place] | | | | | | OF CARE | | | | | | TESTS | | + +--------+ + + + | CALCIUM | 9.2 | 8.6 - 10.2 | [facility] - | | | TOTAL, POC | | mg/dL | [facility] | | | | | | [place] | | | | | | OF CARE | | | | | | TESTS | | + +--------+ + + + | BUN, POC | 12 | 6 - 20 mg/dL | [facility] - | | | | | | [place] | | | | | | [place] | | | | | | OF CARE | | | | | | TESTS | | + +--------+ + + + | CREATININE, | 1.0 | 0.6 - 1.1 mg/dL | [facility] - | | | POC | | | [facility] | | | | | | [place] | | | | | | OF CARE | | | | | | TESTS | | + +--------+ + + + | ALK PHOS, | 86 (H) | 33 - 76 U/L | [facility] - | | | CMP POC | | | [facility] | | | | | | [place] | | | | | | OF CARE | | | | | | TESTS | | + +--------+ + + + | ALT, CMP | <20 | 0 - 60 U/L | [facility] - | | | POC | | | [facility] | | | | | | [place] | | | | | | OF CARE | | | | | | TESTS | | + +--------+ + + + | AST, CMP | 34 | 0 - 41 U/L | [facility] - | | | POC | | | [facility] | | | | | | [place] | | | | | | OF CARE | | | | | | TESTS | | + +--------+ + + + | BILIRUBIN | 0.5 | 0.3 - 1.2 mg/dL | [facility] - | | | TOTAL, CMP | | | [facility] | | | POC | | | [place], POINT | | | | | | OF CARE | | | | | | TESTS | | + +--------+ + + + | ALBUMIN, | 3.6 | 3.5 - 4.7 g/dL | [facility] - | | | CMP POC | | | [facility] | | | | | | [place], POINT | | | | | | OF CARE | | | | | | TESTS | | + +--------+ + + + | PROTEIN | 6.8 | 6.1 - 7.9 g/dL | [facility] [...] [place] | [address] | [employer] | | | [facility] OF [facility] | [address] | [address] | | | TESTS | | | | + + + + + CBC+DIFF,POC (06/30/2016 1:05 PM PST) + + + + + + | Component | Value | Ref Range | Performed | Pathologist | | | | | At | Signature | + + + + + + | WBC POC | 4.4 (L) | 4.4 - 11.0 | [facility] - | | | | | 10*3/uL | [facility] | | | | | | [place], POINT | | | | | | OF CARE | | | | | | TESTS | | + + + + + + | RBC POC | 3.51 (L) | 4.00 - 5.20 | [facility] - | | | | | 10*6/uL | [place] | | | | | | [place] | | | | | | OF CARE | | | | | | TESTS | | + + + + + + | HGB POC | 10.9 (L) | 12.0 - 16.0 | [facility] - | | | | | g/dL | [place] | | | | | | [place] | | | | | | OF CARE | | | | | | TESTS | | + + + + + + | HCT POC | 32.7 (L) | 36.0 - 46.0 % | [...] + + | RDW SD, POC | 55.7 (H) | 35.1 - 46.3 fL | [facility] - | | | | | | [place] | | | | | | [place] | | | | | | OF CARE | | | | | | TESTS | | + + + + + + | PLT POC | 414 (H) | 150 - 400 | [facility] - | | | | | 10*3/uL | [place] | | | | | | [place], POINT | | | | | | OF CARE | | | | | | TESTS | | + + + + + + | MPV POC | 9.1 (L) | 9.7 - 12.3 fL | [facility] - | | | | | | [place] | | | | | | [place] | | | | | | OF CARE | | | | | | TESTS | | + + + + + + | NEUTROPHIL% | 63.8 | 50.0 - 70.0 % | [facility] - | | | POC | | | [place] | | | | | | [place] | | | | | | OF CARE | | | | | | TESTS | | + + + + + + | LYMPH% POC | 16.5 (L) | 18 - 42 % | [facility] - | | | | | | [place] | | | | | | [place], POINT | | | | | | OF CARE | | | | | | TESTS | | + + + + + + | MONO %, POC | 18.6 (H) | 3.5 - 9.0 % | [facility] - | | | | | | [facility] | | | | | | [place] | | | | | | OF CARE | | | | | | TESTS | | + + + + + + | EOS %, POC | 0.9 (L) | 1.0 - 3.0 [...] + + + + | NEUTROPHIL# | 2.8 | 1.8 - 7.7 | [facility] - | | | POC | | 10*3/uL | [facility] | | | | | | [place], POINT | | | | | | OF CARE | | | | | | TESTS | | + + + + + + | LYMPH# POC | 0.7 (L) | 1.0 - 4.8 | [facility] - | | | | | 10*3/uL | [facility] | | | | | | [place] | | | | | | OF CARE | | | | | | TESTS | | + + + + + + | MONO #, POC | 0.8 | 0.1 - 0.9 | [facility] - [...] [facility] | [address] | [place], [place] | | | [place] [facility]INT OF CARE | [address] | [address] | | | TESTS | | | | + + + + + HCG BETA, PLASMA (06/30/2016 12:09 PM PST) + +-------+ + + + | Component | Value | Ref Range | Performed | Pathologist | | | | | At | Signature | + +-------+ + + + | HCG BETA, | <1 | <3 mIU/mL | [facility] | | | PLASMA | | | LABORATORY | | | | | | SERVICES, | | | | | | CORE | | + +-------+ + + + + + | Specimen | + + | Blood | + + + + + | Narrative | Performed At | + + + | Draw HCG lab on 06/30. HCG Reference ranges | [facility] | | Males: <2 mIU/mL | LABORATORY | | Non- Females: <3 mIU/mL | SERVICES, CORE | | Females: >5 mIU/mL HCG Ranges | | | During Normal : Weeks Post Last Menstrual Period: | | | Approximate hCG Range, mIU/mL 3-4 | | | weeks 9 - | | | 130 4-5 | | | weeks 75 - | | | 2600 5-6 | | | weeks 850 - | | | 56410 6-7 | | | weeks 4000 - | | | 399481 7-12 | | | weeks 55991 - | | | 226163 12-16 | | | weeks 43408 - | | | 631805 16-29 | | | weeks 1400 - 94157 | | | 29-41 | | | weeks 940 - | | | [address] | | + + + + + + + + | Performing | Address | City/State/Zipcode | Phone Number | | Organization | | | | + + + + + | [facility] | [address] | [place] [address] | | | SERVICES, CORE | [address] | | | + + + + + HIV-1,2 AB/HIV-1 P24 AG SCRN, SERUM (06/30/2016 12:09 PM PST) + + + + + + | Component | Value | Ref Range | Performed | Pathologist | | | | | At | Signature | + + + + + + | HIV-1,2 | Negative | Negative | [facility] | | | AB/HIV-1 | | | LABORATORY | | | P24 AG | | | SERVICES, | | | SCREEN | | | SPECIAL IMM | | | | | | + COAG | | + + + + + + + + | Specimen | + + | Blood | + + + + + | Narrative | Performed At | + + + | HIV-1 p24 Ag and HIV-1,2 Ab not detected. Test modified from | [facility] | | original radio television technical director's approved specifications. The performance | LABORATORY | | of the LEAD ASSISTANT MANAGER HIV Combo test, with or without confirmation, was not | SERVICES, | | tested in pediatric patients less than 2 years of age. NIH | SPECIAL IMM + | | guidelines recommend virologic assays (i.e. HIV 1 VIRAL LOAD) that | [facility]AG | | directly detect HIV for diagnosis of HIV infection in infants younger | | | than 2 years. | | + + + + + + + + | Performing | Address | City/State/Zipcode | Phone Number | | Organization | | | | + + + + + | [facility] | [address] | [place] [address] | | | SERVICES, SPECIAL | [address] | | | | IMM + [place] | | | | + + + + + SEDIMENTATION RATE (06/30/2016 12:09 PM PST) + +--------+ + + + | Component | Value | Ref Range | Performed | Pathologist | | | | | At | Signature | + +--------+ + + + | SEDIMENTATI | 33 (H) | 0 - 20 mm/hr | [facility] | | | ON RATE | | | LABORATORY | | | | | | SERVICES, | | | | | | CORE | | + +--------+ + + + + + | Specimen | + + | Blood | + + + + + | Narrative | Performed At | + + + | Conditions such as cold agglutinins, anemia, hemolysis, icterus or | [facility] | | lipemia may affect sedimentation rate. | LABORATORY | | | SERVICES, CORE | + + + + + + + + | Performing | Address | City/State/Zipcode | Phone Number | | Organization | | | | + + + + + | [facility] | [address] | [place] [address] | | | SERVICES, CORE | [address] | | | + + + + + LDH TOTAL, PLASMA (06/30/2016 12:09 PM PST) + +---------+ + + + | Component | Value | Ref Range | Performed | Pathologist | | | | | At | Signature | + +---------+ + + + | LD TOTAL, | 270 (H) | <=250 U/L | [facility] | [...] At | + + + | Draw HCG lab on 06/30. 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
--- OUTSIDE RECORDS SUMMARY | ~2019-01-06 | XMS | Encounter Summary ---
Demographics + + + | Address | [address] | | | [place] [address] | + + + | Home Phone [...] Providers + +------+ + | Care Supervisor Wire Rope Fabrication Name | Role | Phone | + [...] | | | | | Hodgkin | [facility] | [address] | | | | | lymphoma of | Rd | [address] | | | | | lymph nodes | [place], [place] | [facility] [place] | | | | | of multiple | [address] | [address] Phone: | | | | | regions | Phone: | [phone] | | | | | (HCC) | [phone] | Fax: | | | | | Procedures | Fax: | [phone] | | | | | CONSULT TO | [phone] | | | | | | HEMATOLOGY / | | | | | | | ONCOLOGY | | | +--------+--------+ + + + + Encounter Details +--------+ + + + + | Date | Type | Department | Care Team | Description | +--------+ + + + + | 04/05/ | Transformer Mechanic | Center for | Quirino Moreno I, | Nodular sclerosis | | 2016 | | Hematologic | ,PhD [address] [facility] | Hodgkin lymphoma of | | | | Malignancies at | [facility] [facility] [address] | lymph nodes of | | | | [facility] | [place], [place] | multiple regions | | | | [address] [facility] | [address] | (HCC) (Primary Dx) | | | | [employer] [facility] | [phone] | | | | | Mailcode: [id number] | | | | | | [facility] | | | | | | [place], [place] | | | | | | [address] | | | | | | [phone] | | | +--------+ + + + [...]
--- OUTSIDE RECORDS SUMMARY | ~2019-01-06 | XMS | Encounter Summary ---
Demographics + + + | Address | [address] | | | [place] [address] | + + + | Home Phone | | + + + | Preferred Language | Unknown | + + + | Marital Status | | + + + | Baptism Affiliation | NON | + + + | Race | White | + + + | Ethnic Group | Not or | + + + Author + + + | Author | [facility] | + + + | Organization | [facility] | + + + | Address [...] Providers + +------+ + | Care Quality Improvement Analyst Name | Role | Phone | [...] | 2016 | on | [facility]cology at [place] | MD Jim [address] | Pathology Services ) | | | | for Health & Healing | [address] [place], | | | | | [address] | [place] [address] | | | | | Mailcode: [place] | [phone] | | | | | for Health and | | | | | | Healing, [address] | | | | | | [place], [place] | | | | | | [address] | | | | | | [phone] | | | +--------+ + + + [...]
--- OUTSIDE RECORDS SUMMARY | ~2019-01-06 | XMS | Encounter Summary ---
Demographics + + + | Address | [address] | | | [place] [address] | + + + | Home Phone | | + + + | Preferred Language | Unknown | + + + | Marital Status | | + + + | Taoism Affiliation | NON | + + + | Race | White | + + + | Ethnic Group | Not or | + + + Author + + + | Author | [facility] | + + + | Organization | [facility] | + + + | [...] Team Providers + +------+ + | Care Accounting Professional Name | Role | Phone | + [...] Hematology | Diagnoses | Quirino Moreno | [facility] | | | | Malignancy | Nodular | MD Ronak,PhD | [address] | | | | | sclerosis | [address] | [address] | | | | | Hodgkin | [facility] | [facility] | | | | | lymphoma, | Rd | Mailcode: | | | | | lymph nodes | [place], [place] | [id number] | | | | | of multiple | [address] | [place] | | | | | sites | Phone: | Pavilion | | | | | | [phone] | [place], [place] | | | | | | Fax: | [address] | | | | | | [phone] | Phone: | | | | | | | [phone] | | | | | | | Fax: | | | | | | | [phone] | +--------+--------+ + + + + Encounter Details +--------+---------+ + + + | Date | Type | Department | Care Team | Description | +--------+---------+ + + + | 08/20/ | Office | Center for | Coreen Grissom, | Autologous bone | | 2017 | Visit | Hematologic | [facility] [address] | marrow | | | | Malignancies at | [facility] [address] | transplantation | | | | [facility] | [place], [place] | status (HCC) | | | | [address] | [address] | (Primary Dx); | | | | [facility] | [phone] | Nodular sclerosis | | | | Mailcode: [id number] | | Hodgkin lymphoma of | | | | [facility] | | lymph nodes of | | | | [place], [place] | | multiple regions | | | | [address] | | (HCC) | | | | [phone] | | | +--------+---------+ + + + [...] + + + | Blood Pressure | 142/87 | 08/20/2016 12:45 PM | | | | | PST | | + + + + + | Pulse | 101 | 08/20/2016 12:45 PM | | | | | PST | | + + + + + | Temperature | 37 C (98.6 F) | 08/20/2016 12:45 PM | | | | | PST | | + + + + + | Respiratory Rate | 18 | 08/20/2016 12:45 PM | | | | | PST | | + + + + + | Oxygen Saturation | 100% | 08/20/2016 12:45 PM | | | | | PST | | + + + + + | Inhaled Oxygen | - | - | | | Concentration | | | | + + + + + | Weight | 96.7 kg (213 lb 3 | 08/20/2016 12:45 PM | | | | oz) | PST | | + + + + + | Height | - | - | | + + + + + | Body Mass Index | 30.59 | 08/11/2016 1:57 AM | | | | | PST | | + + + + + documented in this encounter Patient Instructions Patient Instructions Coreen Grissom PA - 08/20/2016 1:15 PM PST-Take your temperature regularly (3-4 x daily) and to call immediately for a temperature of 100.4 or greater. -Stop taking fluconazole. documented in this encounter Progress Notes Coreen Grissom PA - 08/20/2016 1:15 PM PSTFormatting of this note might be different f rom the original. 08/20/2016 [facility] Physician: Quirino Moreno MD Local Oncologist: Dr. Hilton PCP: Aashish Hilton MD Hematologic Malignancy: Relapsed HL Conditioning regimen: BEAM Date of transplant: 07/21/16 Donor: Autologous Hematologic History: Meggan Otero is a 20 y.o. 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, admit for autoBMT Local oncologist: Aashish Hilton MD ([facility]/[place]) Benign Hematology: Jim Michael MD ([facility]) Pediatric Heme/Onc: Anh Moreland MD ([place]) Nephrology: Raghav Miller MD ([place]) 04/2015 presented with flank pain CT C/A/P: 11 cm anterior mediastinal mass, pleural effusion & L supraclav adenopathy Needle bx: classical hodgkins, nodular sclerosing type Thoracentesis: reactive/benign BMBx: neg PET: bulky mediastinal mass, SUV 16; bilateral neck SUV 15; also R>L pleural effusion 05/10/15 began ABVE-PC (as per pediatric [id number]) via femoral line 05/16/15 presented with sepsis [...] L neck: classical Hodgkins Above therapy in [place] -> moved to [place] Continued on ecalizumab per benign heme (Fernanda) - genetic testing for aHUS PENDING GDP x3 06/2017 CR by PET Reece placed GCSF stem cell mobilization: 7.3 x10^6 cd34/kg She was recently hospitalized from 07/15/16-08/07/[facility] For complete details of her recent hospitalization, please see discharge dictation in EPIC. Briefly, her transplant hospitalization was complicated by: pancytopenia, neutropenic fevers, MRSA bacteremia, orthostatic hypotension, chemotherapy induced nausea, mucositis. Meggan Otero is a 20 y.o. female with hx of relapsed HL, currently day +30 s/p BEAM co nditioned autologous peripheral blood stem cell transplant. Interval Hx: Meggan presents to clinic today for her routine scheduled visit. She is accompanied by her m other and in clinic today. Meggan is doing well today and denies new complaints sinc e our last visit. Main ongoing issue is fatigue and she hasn't noticed much improvement in her energy level. She still has some nausea but it is improving. She is taking zofran BID and ativan PRN. She denies emesis and is eating normally. She reports drinking ~2L/day in PO fluids. She denies fevers or diarrhea. Review of Systems: General: +fatigue-stable Denies fevers, [...] hours as needed. Indications: Constipation Vitals: BP 142/87 | Pulse 101 | Temp (Src) 37 C (98.6 F) (Oral) | RR 18 | Wt 96.7 kg (213 lb 3 oz) | SpO2 100% | BMI 30.59 kg/(m^2) Physical Exam: General: This is a [...] 72 hours (or 3 results) Recent Labs 08/18/16 1421 08/20/16 1307 WBC 5.6 4.0* HB 8.0* 7.3* HCT 23.3* 20.9* PLT 17* 20* MONOPERC 9.1* 17.5* BASOPERC 0.2 0.3 EOSPERC 0.7* 1.0 Chemistries: Last 72 Hours (or 3 results): Recent Labs 08/10/16 2053 08/11/16 0604 08/12/16 0101 08/17/16 1256 08/17/16 1320 08/18/16 1432 08/20/16 1237 08/20/16 1338 NA 145 145 146* < > -- 139 136 -- 137 K 3.4 3.8 3.2* < > -- 4.0 3.3* -- 4.1 CL 113* 113* 113* < > -- 104 106 -- 100 BICARB 20* 23 23 < > -- 26 25 -- 25 BUN 23* 24* 17 < > -- 11 13 -- 10 CR 1.62* 1.45* 1.32* < > -- 1.3* 1.1 -- 0.9 GLU 104* 91 95 < > -- 94 99 -- 86 CA 8.5* 8.2* 8.3* < > -- 9.3 8.7 -- 9.1 AST 26 29 22 < > 19 -- <20 16 -- ALT 15 15 15 < > 22 -- <20 18 -- AP 114* 97 92 < > 111* -- 94* 122* -- TBILI 2.4* 1.0 0.8 < > 0.3 -- 0.6 0.4 -- TP 6.5 5.6* 5.7* < > 6.9 -- 6.6 6.7 -- ALB 3.4* 3.0* 2.9* < > 3.7 -- 3.5 3.4* -- ANIONGAP 12 9 10 -- -- -- -- -- -- ANIONALBCOR 13* 11 12* -- -- -- -- -- -- < > = values in this interval not displayed. Hematology: Hematologic Malignancy: relapsed HL Conditioning Regimen: BEAM Stem cell transplant -Stem Cell product: tolerated stem cell product on 07/21/16 without complications. CD 34 cou nt = 7.3 x 10^6 per kg -BMT Day: +30 CBC reviewed and reveals anemia and thrombocytopenia. WBC/ANC WNL today but no clear sign of platelet recovery at this point. 1U PPH and 1U PRBCs today. 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 Plan for next dose on 08/23. -Monitor for hemolysis flare -Monitor LDH, hapto, [...] prophylaxis will start day+30-40. With ongoing cytopenias, plan for pentamidine o n 08/23. Fluid/Nutrition/Lytes: Nutrition: Current diet -- Regular No Adriane's yogurt or Kefir. Encourage po intake as micheal ated with a goal of consistently drinking at least 2L calorie containing fluids per day. Fluid: 1L NS bolus IV today Lytes: Continue to check chemistries twice weekly. Replace per supportive care protocol. Plan: -1L NS bolus IV today. -1U PPH and 1U PRBCs today. -Plan for Solaris on 08/23. -Plan for pentamidine on 08/23. -Dc fluconazole. -Return to clinic on 08/23 to see MORENA Kirkpatrick, sooner prn -RTC on 08/[address] Moreno. [facility] [place] [address] [facility] Mailcode: [id number] [address] documented in this encounter Plan of Treatment Not on filedocumented as of this encounter Results BMP + MAG, POC CHM (08/23/2016 1:35 PM PST) + +---------+ + + + [...] | | POC | | mmol/L | [facility] | | | | | [...] +---------+ + + + | GLUCOSE, | 111 (H) | 60 - 99 mg/dL | [...] + + + | BUN, POC | 9 | 6 - 20 mg/dL | [facility] [...] + + + | LDH, POC | 224 (H) | 0 - 206 U/L | [...] [facility] | [address] | [place], [place] | | | [address] | [facility] | [address] | | | TESTS | | | | + + + + + CBC+SWATI BELLAMY (08/23/2016 1:33 PM PST) + + + + + + | Component | Value | Ref Range | Performed | Pathologist | | | | | At | Signature | + + + + + + | WBC POC | 2.5 (L) | 4.4 - 11.0 | [facility] - | | | | | 10*3/uL | [facility] | | | | | | ALYSSA, POINT | | | | | | OF CARE | | | | | | TESTS | | + + + + + + | RBC POC | 2.63 (L) | 4.00 - 5.20 | [facility] - | | | | | 10*6/uL | [facility] | | | | | | ALYSS[place], POINT | | | | | | OF CARE | | | | | | TESTS | | + + + + + + | HGB POC | 8.1 (L) | 12.0 - 16.0 | [facility] - | | | | | g/dL | [facility] | | | | | | ALYSSA, POINT | | | | | | OF CARE | | | | | | TESTS | | + + + + + + | HCT POC | 23.7 (L) | 36.0 - 46.0 % | [facility] - | | | | | | [facility] | | | | | | ALYSS[place], POINT | | | | | | OF CARE | | | | | | TESTS | | + + + + + + | MCV POC | 90.1 | 80.0 - 96.0 fL | [facility] - | | | | | | [facility] | | | | | | AL[place]SSA POINT | | | | | | OF CARE | | | | | | TESTS | | + + + + + + | MCH POC | 30.8 | 29.0 - 32.0 pg | [facility] [...] + + | RDW SD, POC | 41.7 | 35.1 - 46.3 fL | [facility] - | | | | | | [facility] | | | | | | AL[place]A POINT | | | | | | OF CARE | | | | | | TESTS | | + + + + + + | PLT POC | 33 (L) | 150 - 400 | [facility] - | | | | | 10*3/uL | [facility] | | | | | | ALYSSA POINT | | | | | | OF CARE | | | | | | TESTS | | + + + + + + | MPV POC | 11.6 | 9.7 - 12.3 fL | [facility] - | | | | | | [facility] | | | | | | MERRY SHAH | | | | | | OF CARE | | | | | | TESTS | | + + + + + + | NEUTROPHIL% | 43.4 (L) | 50.0 - 70.0 % | [facility] - | | | POC | | | [facility] | | | | | | MERRY SHAH | | | | | | OF CARE | | | | | | TESTS | | + + + + + + | LYMPH% POC | 35.1 | 18 - 42 % | [facility] - | | | | | | [facility] | | | | | | AL[place]A POINT | | | | | | OF CARE | | | | | | TESTS | | + + + + + + | MONO %, POC | 19.5 (H) | 3.5 - 9.0 % | [facility] - | | | | | | [facility] | | | | | | MERRY SH[place] | | | | | | OF CARE | | | | | | TESTS | | + + + + + + | EOS %, POC | 2.0 | 1.0 - 3.0 % | [facility] [...] + + | MARICEL [facility] | [address] [facility] [address] | [place], [place] | | | M[address] | [facility] | [address] | | | TESTS | | | | + + + + + LIVER SET (AST,ALT,BILI TOTAL,BILI DIRECT,ALK PHOS,ALB,PROT TOTAL) (08/23/2016 1:05 PM PST ) + +---------+ + + [...] +---------+ + + + | AST(SGOT) | 22 [...] [facility] | [address] | [place] [address] | | | SERVICES, CORE | [address] | | | + + + + + PHOSPHORUS, PLASMA (08/23/2016 1:05 PM PST) + +-------+ + + + [...] | + + + + + | [facility] | [address] | [place] [address] | | | SERVICES, CORE | [address] [...]
--- OUTSIDE RECORDS SUMMARY | ~2019-01-06 | XMS | Encounter Summary ---
Demographics + + + | Address | [address] | | | [place] [address] | + + + | Home Phone | | + + + | Preferred Language | Unknown | + + + | Marital Status | | + + + | Church Affiliation | NON | + + + | Race | White | + + + | Ethnic Group | Not or | + + + Author + + + | Author | [facility] | + + + | Organization | [facility] | + + + | [...] Providers + +------+ + | Care Sales Property Manager Name | Role | Phone | + +------+ + | Aashish Hilton MD | PCP | | + +------+ + Encounter Details +--------+ + + + + | Date | Type | Department | Care Team | Description | +--------+ + + + + | 07/30/ | Procedure | 6A Intra Op [facility] | | | | 2016 | Pass | [facility] | | | | | | Admitting Desk | | | | | | Located on the 9th | | | | | | floor [address] [facility] | | | | | | [facility] | | | | | | [place], [place] | | | | | | [address] | | | +--------+ + + + [...]
--- OUTSIDE RECORDS SUMMARY | ~2019-01-06 | XMS | Encounter Summary ---
Demographics + + + | Address | [address] | | | [place] [address] | + + + | Home Phone [...] Team Providers + +------+ + | Care Front End Developer Javascript Html Css Name | Role | Phone | + [...] | | | | Malignancies at | [facility] | | | | | [facility] | [place], [place] | | | | | [address] [facility] | [address] | | | | | [facility] | [phone] | | | | | Mailcode: [id number] | | | | | | [facility] | | | | | | [place], [place] | | | | | | [address] | | | | | | [phone] | | | +--------+ + + + [...]
--- OUTSIDE RECORDS SUMMARY | ~2019-01-06 | XMS | Encounter Summary ---
Demographics + + + | Address | [address] | | | [place] [address] | + + + | Home Phone [...] | | + + +---------+ + | Rfafy Otero | ECON | Unknown | | + + +---------+ + Care Team Providers + +------+ + | Care Director Work Name | Role | Phone | + +------+ + | No Pcp Per Patient | PCP | Unavailable | + +------+ + Encounter Details +--------+ + + + + | Date | Type | Department | Care Team | Description | +--------+ + + + + | 05/21/ | Telephone | Center for | Maura Lai, | | | 2015 | | Hematologic | RN [address] | | | | | Malignancies at | [facility] | | | | | Joanne Herman | [place], [place] | | | | | [address] [facility] | [address] | | | | | [facility] | [phone] | | | | | Mailcode: [id number] | | | | | | Joanne [address] | | | | | | [place], [place] | | | | | | [address] | | | | | | [phone] | | | +--------+ + + + [...]
--- OUTSIDE RECORDS SUMMARY | ~2019-01-06 | XMS | Encounter Summary ---
Demographics + + + | Address | [address] | | | [place] [address] | + + + | Home Phone [...] Team Providers + +------+ + | Care Leathersmith Name | Role | Phone | + [...] | | | | Malignancies at | [facility] | | | | | Joanne Herman | [place], [place] | | | | | [address] [facility] | [address] | | | | | [facility] | [phone] | | | | | Mailcode: [id number] | | | | | | Joanne Herman | | | | | | [place], [place] | | | | | | [address] | | | | | | [phone] | | | +--------+ + + + [...]
--- OUTSIDE RECORDS SUMMARY | ~2019-01-06 | XMS | Encounter Summary ---
Demographics + + + | Address | [address] | | | [place] [address] | + + + | Home Phone | | + + + | Preferred Language | Unknown | + + + | Marital Status | | + + + | Restorationist Affiliation | NON | + + + | Race | White | + + + | Ethnic Group | Not or | + + + Author + + + | Author | [facility] | + + + | Organization | [facility] | + + + | Address | [...] Team Providers + +------+ + | Care Certified Credit Counselor Name | Role | Phone | + +------+ + | No Pcp Per Patient | PCP | Unavailable | + +------+ + Reason for Visit + + + | Reason | Comments | + + + | Referral to social | | | worker | | + + + Encounter Details +--------+ + + + + | Date | Type | Department | Care Team | Description | +--------+ + + + + | 06/18/ | Documentati | Center for | Work, Social | Referral to social | | 2016 | on | Hematologic | | worker | | | | Malignancies at | | | | | | Joanne Herman | | | | | | [address] | | | | | | [facility] | | | | | | Mailcode: [id number] | | | | | | Joanne Herman | | | | | | [place], [place] | | | | | | [address] | | | | | | [phone] | | | +--------+ + + + [...]
--- OUTSIDE RECORDS SUMMARY | ~2019-01-06 | XMS | Encounter Summary ---
Demographics + + + | Address | [address] | | | [place] [address] | + + + | Home Phone | | + + + | Preferred Language | Unknown | + + + | Marital Status | | + + + | Religion Affiliation | NON | + + + | Race | White | + + + | Ethnic Group | Not or | + + + Author + + + | Author | [facility] | + + + | Organization | [facility] | + + + | Address [...] Team Providers + +------+ + | Care Paediatric Surgeon Name | Role | Phone | + [...] | | | | Hodgkin | [address] | [facility] | | | | | lymphoma, | Rd | Mailcode: | | | | | lymph nodes | [place], [place] | [id number] | | | | | of multiple | [address] | [place] | | | | | sites | Phone: | Pavilion | | | | | | [phone] | [place], [place] | | | | | | Fax: | [address] | | | | | | [phone] | Phone: | | | | | | | [phone] | | | | | | | Fax: | | | | | | | [phone] | +--------+--------+ + + + + Encounter [...] | follow-up; Dressing | | | | [facility] [address] | | change; Intravenous | | | | Mailcode: [id number] | | infusion (mag) | | | | Joanne Herman | | | | | | [place], [place] | | | | | | [address] | | | | | | [phone] | | | +--------+ + + + [...] | + + + + + | [facility] | [address] | [place] [address] | | | SERVICES, CORE | [address] [...] [facility] | [address] | [place], [place] | | | ALYSSA POINT OF CARE | [address] | [address] | | | TESTS | | | [...] MARICEL [facility] | [address] | [place], [place] | | | ALYSSA POINT OF CARE | [address] | [address] | | | TESTS | | | [...] + | [facility] - AIRPORT - | [address] | [place] [address] | | | [place] | | | [...] [facility] | [address] | [place] [address] | | | SERVICES, CORE | BLANCHE [...] | + + + + + | [facility] | [address] | [place] [address] | | | SERVICES, SCOOBY | BLANCHE [...]
--- OUTSIDE RECORDS SUMMARY | ~2019-01-06 | XMS | Encounter Summary ---
Demographics + + + | Address | [address] | | | [place] [address] | + + + | Home Phone [...] Author + + + | Author | [facility] | + + + | Organization | [facility] | + + + | Address | [...] Team Providers + +------+ + | Care Svp Digital Sales Food & Cooking Name | Role | Phone | + [...] | | | | Hodgkin | [address] | [facility] | | | | | lymphoma of | Rd | Mailcode: | | | | | lymph nodes | [place], [place] | [id number] | | | | | of multiple | [address] | [place] | | | | | regions | Phone: | Pavilion | | | | | (HCC) | [phone] | [place], [place] | | | | | Procedures | Fax: | [address] | | | | | Autologous | [phone] | Phone: | | | | | SCT Eval | | [phone] | | | | | | | Fax: | | | | | | | [phone] | +--------+--------+ + + + + Encounter [...] [address] | | | | | | [facility] | | | | | | Mailcode: [id number] | | | | | | Joanne Herman | | | | | | [place], [place] | | | | | | [address] | | | | | | [phone] | | | +--------+ + + + [...] LABORATORY | [address] | [place] [address] | | | SERVICES, | [address] [...] + + + + + | [facility] | [address] | [place] [address] | | | SERVICES, | [address] [...] LABORATORY | [address] | [place] [address] | | | SERVICES, | [address] [...] + + + | Testing performed at [facility] | [facility] | | Laboratory [address] [place] [address] | CELL PROCESSING | | | LAB | + + + + + + + + | Performing | Address | City/State/Zipcode | Phone Number | | Organization | | | | + + + + + | [facility] | [address] [facility] | [place], [place] | | | PROCESSING LAB | [address] | [address] | | + + + + + [...] + + | [facility] | [address] | [place], [place] | | | PROCESSING LAB | [address] | [address] | | + + + + + [...] + + + | Testing performed at [facility] | [facility] | | Laboratory [address] [place] [address] | CELL PROCESSING | | | LAB | + + + + + + + + | Performing | Address | City/State/Zipcode | Phone Number | | Organization | | | | + + + + + | [facility] | [address] | [place], [place] | | | PROCESSING LAB | [address] | [address] | | + + + + + [...] LABORATORY | [address] | [place] [address] | | | [address] | BLANCHE [...] at | | | | | | [email or web address] | | | | | | x. [...] at | | | | | | [email or web address] | | | | | | x. [...] at | | | | | | [email or web address] | | | | | | x. [...] at | | | | | | [email or web address] | | | | | | x.Performed by [facility] | | | | | | [facility],[address] [place] [address] | | | | | | [place] [address] | | | | | | [phone]. | | | | | | [facility], [place], | | | | | [...] [facility] | [address] | [place], [place] | | | UN[facility] | | [address] | | + + + + + [...] + | [facility] - AIRPORT - | [address] | [place] [address] | | | [place] | | | [...] + | [facility] - AIRPORT - | [address] | [place] [address] | | | [place] | | | [...] + | [facility] - AIRPORT - | [address] | [place] [address] | | | [place] | | | [...] + | [facility] - AIRPORT - | [address] | [place] [address] | | | [place] | | | [...] | + + + + + | [facility] - AIRPORT - | [address] | [place] [address] | | | [facility] | | | | + + [...] | | | | | | Cory, [facility] [address] | | | | | | [phone]. | | | | | | jeimy, [...] [facility] | [address] | [place], [place] | | | UN[facility] | | [address] | | + + + + + [...] LABORATORY | [address] | [place] [address] | | | SERVICESSCOOBY | [address] [...] LABORATORY | [address] | [place] [address] | | | SERVICES, SCOOBY | [address]ARK [...] + + + + + | [facility] | [address] | [place] [address] | | | SERVICES, CORE | BLANCHE [...] LABORATORY | [address] | [place] [address] | | | SERVICES, CORE | [address] [...] [facility] | [address] | [place] [address] | | | SERVICES, CORE | [address] [...] | | | LABORATORY | | | [address] | | | SERVICES, | | | [...] + + + + + | [facility] | [address] | [place] [address] | | | SERVICES, CORE | [address] | | | + + + + + documented in this encounter Visit Diagnoses + + | Diagnosis | + + | 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
--- OUTSIDE RECORDS SUMMARY | ~2019-01-06 | XMS | Clinical Summary ---
Demographics + + + | Address | [address] | | | [place] [address] | + + + | Home Phone | | + + + | Preferred Language | Unknown | + + + | Marital Status | | + + + | Evangelical Affiliation | NON | + + + | Race | White | + + + | Ethnic Group | Not or | + + + Author + + + | Author | [facility] | + + + | Organization | [facility] | + + + | Address [...] Team Providers + +------+ + | Care Occup Ther Name | Role | Phone | + +------+ + | Aashish Hilton MD | PP | | + +------+ + Source Comments MARKFRANKLYN is fully live on both EpicCare Ambulatory and EpicCare InPatient.[facility] Allergies + + + + + + [...] OEBB | | [address] | 4 | [address] | | | | CONNEX | | esent | | [place], | | | | [place] | | | | [place] [address] | | + +--------+ +--------+ + +--------+ | BONE MARROW TXP | BONE | [phone] | | | [address] | Agency | | | MARROW | | [address] | | [address] | | | | TXP | | esent | | [place], | | | | | | | | [place] [address] | | + +--------+ +--------+ + +--------+ + +--------+ +--------+ + + | Guarantor Name | Accoun | Relation to | Date | Phone | Billing Address | | | t Type | Patient | of | | | | | | | | | | + +--------+ +--------+ + + | Meggan Otero | Person | Self | [birth year] | | [address] | | | al/Fam | | 1995 | [phone] | [place] [address] | | | matthew | | | 9 (Home) | | + +--------+ +--------+ + + | Meggan Otero | Case | Self | [birth year] | | [address] | | | Rate | | 1995 | - | [place] [address] | | | | | | 9 [...]
--- OUTSIDE RECORDS SUMMARY | ~2019-01-06 | XMS | Encounter Summary ---
Demographics + + + | Address | [address] | | | [place] [address] | + + + | Home Phone [...] Author + + + | Author | [facility] | + + + | Organization | [facility] | + + + | [...] Providers + +------+ + | Care Boiler Installer Name | Role | Phone | + +------+ + | Aashish Hilton MD | PCP | | + +------+ + Encounter Details +--------+ + + + + | Date | Type | Department | Care Team | Description | +--------+ + + + + | 08/04/ | Pharmacy | Specialty Pharmacy | | | | 2015 | Visit | Services [address] | | | | | | [address] | | | | | | [place], [place] | | | | | | [address] | | | | | | [phone] | | | +--------+ + + + [...]
--- OUTSIDE RECORDS SUMMARY | ~2019-01-06 | XMS | Encounter Summary ---
Demographics + + + | Address | [address] | | | [place] [address] | + + + | Home Phone [...] Team Providers + +------+ + | Care Cabinet Worker Name | Role | Phone | [...] Aquino | | | | | | [facility] | | | | | | Mailcode: [id number] | | | | | | Joanne Herman | | | | | | [place], [place] | | | | | | [address] | | | | | | [phone] | | | +--------+ + + + [...]
--- OUTSIDE RECORDS SUMMARY | ~2019-01-06 | XMS | Encounter Summary ---
Demographics + + + | Address | [address] | | | [place] [address] | + + + | Home Phone | | + + + | Preferred Language | Unknown | + + + | Marital Status | | + + + | Rastafarian Affiliation | NON | + + + [...] Team Providers + +------+ + | Care Client Delivery Specialist Name | Role | Phone | [...] + + | 08/10/ | Hospital | [facility] [address] | Destini Cheek MD | | | 2016 - | Encounter | [address] | [address] | | | | | 12C/UHS[address] [facility] | Blanche Robins Tutwiler, | | | 08/12/ | | [facility], | [place] [address] | | | 2015 | | [place] [address] | [phone] | | | | | [phone] | | | | | | | Sim Kim MD | | | | | | [address] | | | | | | [facility], | | | | | | [place] [address] | | | | | | [phone] | | | | | | | | | | | | Kaden Parmar, | | | | | | [address] | | | | | | [facility] | | | | | | [place], [place] | | | | | | [address] | | | | | | [phone] | | | | | | | | | | | | Sky Irizarry V, | | | | | | [address] | | | | | | [facility] | | | | | | [place], [place] | | | | | | [address] | | | | | | [phone] | | | | | | | [...] PA-C, MPAS - 08/12/2016 9:14 AM PST [facility] Discharge Summary Discharging Provider: Ignacio Decker [...] lerated well. However, after returning to the [facility], she noted a fever as above and [...] the risk of infection. Your nurse or integrated logistics support manager will provide you with information about foods [...] Orders and Instructions Call the BMT clinic ([phone]) or BMT person on-call ([phone]) for: Any temp > 100.4 Nausea/vomiting unresponsive [...] [facility] [phone] [facility] 08/13/2016 12:40 PM [facility] INFUSION NURSE; [facility] INFUSION [facility] [phone] [facility] 08/13/2016 1:15 PM Coreen Grissom; [facility] MA SUPPORT [facility] [phone] [facility] 08/17/2016 12:40 PM [facility]M INFUSION NURSE; [facility] INFUSION [facility] at [facility] [phone] [facility] H 08/17/2016 1:15 PM Coreen Grissom; CHM MA SUPPORT [facility] [place] [phone] [facility] 08/20/2016 12:40 PM CHM INFUSION NURSE; [facility] INFUSION [facility] at [facility] [phone] Center for H 08/20/2016 1:15 PM Coreen Grissom; CHM MA SUPPORT [facility] [place] [phone] [facility] H 08/26/2016 8:10 AM CHM INFUSION NURSE; [facility]M INFUSION [facility] at [facility] [phone] Center for H 08/26/2016 8:55 AM Quirino Moreno; CHM MA SUPPORT [facility] at [facility] [phone] Center for H JOSE RAMON Pemberton PA-C [facility] 14K [address] Mailcode: [id number] [place] [address] documented in thi s encounter Medications at [...] care coordination MD Sky De Luna MD [facility] 4A [address] [facility] 12/s31 [place] [address] documented in this encounter Plan of Treatment [...] [facility] | [address] | [place] [address] | | | SERVICES, CORE | PARK [...] [facility] | [address] | [place] [address] | | | SERVICES, CORE | PARK [...] | + + + + + | [facility] | [address] | [place] [address] | | | SERVICES, CORE | BLANCHE [...] [facility] | [address] | [place] [address] | | | SERVICES, CORE | BLANCHE [...] | + + + + + | [facility] | [address] | [place] [address] | | | SERVICES, CORE | PARK [...] [facility] | [address] | [place] [address] | | | SERVICES, CORE | PARK [...] | + + + + + | [facility] | [address] | [place] [address] | | | SERVICES, CORE | PARK [...] | | | LABORATORY | | | KYRGYZ | | | SERVICES, | | | [...] | + + + + + | [facility] | [address] | [place] [address] | | | SCOO[address] PÉRE[address] | BLANCHE [...] [facility] | [address] | [place] [address] | | | SERVICES, CORE | BLANCHE [...] + + + + | PRODUCT | [id number] | | [facility] | | | UNIT [...] + + + + | EXPIRATION | [id number] | | [facility] | | | DATE [...] + + + + | BLOOD | [id number] | | [facility] | | | PRODUCT [...] [facility] | [address] | [place] [address] | | | SERVICES, | [address] [...] + + + + | PRODUCT | [id number] | | [facility] | | | UNIT [...] + + + + | EXPIRATION | [id number] | | [facility] | | | DATE [...] + + + + | BLOOD | [id number] | | [facility] | | | PRODUCT [...] [facility] | [address] | [place] [address] | | | SERVICES, | [address] [...] | + + + + + | [facility] | [address] | [place] [address] | | | SERVICES, CORE | BLANCHE [...] [facility] | [address] | [place] [address] | | | SERVICES, | [address] [...] | TRANSFUSION | | | | GAMMA [id number] | | MEDICINE | | | | 12-23-17 [id number] | | | | | | 11-15-2016 | | | | + + + + + + + + | Specimen | + + | Blood | + + + + + + + | Performing | Address | City/State/Zipcode | Phone Number | | Organization | | | | + + + + + | [facility] | [address] | [place] [address] | | | SERVICES, | [address] [...] | + + + + + | [facility] | [address] | [place] [address] | | | SERVICES, | [address] [...] [facility] | [address] | [place] [address] | | | SERVICES, | [address] [...] [facility] | [address] | [place] [address] | | | SERVICES, | [address] [...] [facility] | [address] | [place] [address] | | | SERVICES, | [address] [...] [facility] | [address] | [place] [address] | | | SERVICES, | [address] [...] + + + + | PRODUCT | [id number] | | [facility] | | | UNIT [...] + + + + | EXPIRATION | [id number] | | [facility] | | | DATE [...] + + + + | BLOOD | [id number] | | [facility] | | | PRODUCT [...] [facility] | [address] | [place] [address] | | | SERVICES, | [address] [...] | + + + + + | [facility] | [address] | [place] [address] | | | SERVICES, SCOOBY | BLANCHE [...] | + + + + + | [facility] | [address] | [place] [address] | | | SERVICES, SCOOBY | BLANCHE [...] [facility] | [address] | [place] [address] | | | SERVICES, CORE | PARK [...] | + + + + + | [facility] | [address] | [place] [address] | | | SERVICES, CORE | PARK [...] | + + + + + | [facility] | [address] | [place] [address] | | | SERVICES, CORE | BLANCHE [...] | | | LABORATORY | | | KYRGYZ | | | SERVICES, | | | [...] | + + + + + | [facility] | [address] | [place] [address] | | | SERVICES, SCOOBY | BLANCHE [...] [facility] | [address] | [place] [address] | | | SERVICES, CORE | PARK [...] | + + + + + | [facility] | [address] | [place] [address] | | | SERVICES, CORE | BLANCHE [...] [facility] | [address] | [place] [address] | | | SERVICES, CORE | PARK [...] - [facility] | [address] | [place], [place] | | | ALYSSA POINT OF CARE | [address] | [address] | | | TESTS | | | [...] | + + + + + | [facility] | [address] | [place] [address] | | | SERVICES, CORE | PARK [...] [facility] | [address] | [place] [address] | | | ELISA, SCOOBY | BLANCHE [...] | + + + + + | [facility] | [address] | [place] [address] | | | SERVICES, CORE | BLANCHE [...] [facility] | [address] | [place], [place] | | | MERRY SHAH OF CARE | [address] | [address] | | | TESTS | | | [...] [facility] | [address] | [place] [address] | | | SERVICES, SCOOBY | BLANCHE [...] [facility] | [address] | [place] [address] | | | SERVICES, CORE | PARK [...] [facility] | [address] | [place] [address] | | | SERVICES, CORE | PARK [...] [facility] | [address] | [place] [address] | | | SERVICES, CORE | PARK [...] | + + + + + | [facility] | [address] | [place] [address] | | | SERVICES, CORE | BLANCHE [...] | | | LABORATORY | | | KYRGYZ | | | SERVICES, | | | [...] | + + + + + | [facility] | [address] | [place] [address] | | | SCOOBY PÉREZ | BLANCHE [...] [facility] | [address] | [place] [address] | | | SERVICES, CORE | BLANCHE [...] | + + + + + | [facility] | [address] | [place] [address] | | | SERVICES, CORE | PARK [...] | + + + + + | [facility] | [address] | [place] [address] | | | SERVICES, CORE | BLANCHE [...] | intravenous, NEEDED, Starting | | | [facility] 08/11/16 at 0158, Until Nia [...]
--- OUTSIDE RECORDS SUMMARY | ~2019-01-06 | XMS | Encounter Summary ---
Demographics + + + | Address | [address] | | | [place] [address] | + + + | Home Phone [...] + + + | Author | [facility] | + + + | Organization | [facility] | + + + [...] Team Providers + +------+ + | Care Jewelry Internship Name | Role | Phone | + +------+ + | Aashish Hilton MD | PCP | | + +------+ + Encounter Details +--------+ + + + + | Date | Type | Department | Care Team | Description | +--------+ + + + + | 08/06/ | Aerophysics Engineer | Center for | Fany Phillips | Autologous bone | | 2016 | | Hematologic | S, CLINICAL PHARMACY COORDINATOR [address] [facility] | marrow | | | | Malignancies at | [address] | transplantation | | | | [facility] | [place], [place] | status (HCC) | | | | [address] [facility] | [address] | (Primary Dx); | | | | [address] | [phone] | Nodular sclerosis | | | | Mailcode: [id number] | | Hodgkin lymphoma of | | | | [facility] | | lymph nodes of | | | | [place], [place] | | multiple regions | | | | [address] | | (HCC) | | | | [phone] | | | +--------+ + + + [...] encounter Results BMP + MAG, POC CHM (08/09/2016 9:34 AM PST) + +---------+ + + + [...] 3.6 | 3.4 - 5.0 | [facility] - | | | POC | | mmol/L | [facility] | | | | | | MERRY SHAH | | | | | | OF CARE | | | | | | TESTS | | + +---------+ + + + | TOTAL CO2, | 20 (L) | 22 - 29 mmol/L | [facility] - | | | POC | | | [facility] | | | | | | MERRY SHAH | | | | | | OF CARE | | | | | | TESTS | | + +---------+ + + + | CHLORIDE, | 105 | 97 - 108 mmol/L | [facility] - | | | POC | | | [facility] | | | | | | MERRY SHAH | | | | | | OF CARE | | | | | | TESTS | | + +---------+ + + + | GLUCOSE, | 117 (H) | 60 - 99 mg/dL | [facility] - | | | POC | | | [facility] | | | | | | MERRY SHAH | | | | | | OF CARE | | | | | | TESTS | | + +---------+ + + + | CALCIUM | 9.0 | 8.6 - 10.2 | [facility] - [...] +---------+ + + + | CREATININE, | 1.2 (H) | 0.6 - 1.1 mg/dL | [facility] - | | | POC | | | [facility] | | | | | | MERRY SHAH | | | | | | OF CARE | | | | | | TESTS | | + +---------+ + + + | LDH, POC | 272 (H) | 0 - 206 U/L | [facility] - | | | | | | [facility] | | | | | | ALYSSA POINT | | | | | | OF CARE | | | | | | TESTS | | + +---------+ + + + | MAGNESIUM, | 1.9 | 1.8 - 2.5 mg/dL [...] [facility] | [address] | [place], [place] | | | ALYSSA POINT OF CARE | [facility] | [address] | | | TESTS | | | | + + + + + CBC+DIFF,POC (08/09/2016 9:32 AM PST) + + + + + + | Component | Value | Ref Range | Performed | Pathologist | | | | | At | Signature | + + + + + + | WBC POC | 1.7 (L) | 4.4 - 11.0 | [facility] - | | | | | 10*3/uL | [facility] | | | | | | MERRY SHAH | | | | | | OF CARE | | | | | | TESTS | | + + + + + + | RBC POC | 2.16 (L) | 4.00 - 5.20 | [facility] - | | | | | 10*6/uL | [facility] | | | | | | MERRY SHAH | | | | | | OF CARE | | | | | | TESTS | | + + + + + + | HGB POC | 6.7 (L) | 12.0 - 16.0 | [facility] - | | | | | g/dL | [facility] | | | | | | MERRY SHAH | | | | | | OF CARE | | | | | | TESTS | | + + + + + + | HCT POC | 20.4 (L) | 36.0 - 46.0 % | [facility] - | | | | | | [facility] | | | | | | MERRY SHAH | | | | | | OF CARE | | | | | | TESTS | | + + + + + + | MCV POC | 94.4 | 80.0 - 96.0 fL | [facility] - | | | | | | [facility] | | | | | | MERRY SHAH | | | | | | OF CARE | | | | | | TESTS | | + + + + + + | MCH POC | 31.0 | 29.0 - 32.0 pg | [facility] - | | | | | | [facility] | | | | | | ALYSSA POINT | | | | | | OF CARE | | | | | | TESTS | | + + + + + + | MCHC POC | 32.8 | 33.0 - 35.5 | [facility] - [...] + + + | PLT POC | 15 (L) | 150 - 400 | [facility] - | | | | | 10*3/uL | [facility] | | | | | | ALYSSA, POINT | | | | | | OF CARE | | | | | | TESTS | | + + + + + + | MPV POC | 13.5 (H) | 9.7 - 12.3 fL | [facility] - | | | | | | [facility] | | | | | | ALYSSA POINT | | | | | | OF CARE | | | | | | TESTS | | + + + + + + | NEUTROPHIL% | 72.8 (H) | 50.0 - 70.0 % | [facility] - | | | POC | | | [facility] | | | | | | ALYSSA POINT | | | | | | OF CARE | | | | | | TESTS | | + + + + + + | LYMPH% POC | 21.9 | 18 - 42 % | [facility] - | | | | | | [facility] | | | | | | ALYSSA, POINT | | | | | | OF CARE | | | | | | TESTS | | + + + + + + | MONO %, POC | 5.3 | 3.5 - 9.0 % | [facility] [...] [facility] | | | | | | ALYSSA [...] + | MONO #, POC | 0.1 (L) | 0.1 - 0.9 | [facility] - [...] + + + + | CBC | Plt Abn Dist, Imm Gran, | | [facility] - | | | COMMENT, | Lft Shft | | [facility] | | | POC [...] [facility] | [address] | [place], [place] | | | MERRY SHAH OF CARE | [address] | [address] | | | TESTS | | | | + + + + + CBC+DIFFPOC (08/08/2016 11:12 AM PST) + + + [...] [facility] | [address] | [place], [place] | | | MERRY SHAH OF BAILEE | [address] | [address] | | | TESTS | | | [...]
--- OUTSIDE RECORDS SUMMARY | ~2019-01-06 | XMS | Encounter Summary ---
Demographics + + + | Address | [address] | | | [place] [address] | + + + | Home Phone [...] Team Providers + +------+ + | Care Forest Landscape Ecology Professor Name | Role | Phone | [...] | | | | | [facility] | | | | | | Mailcode: [id number] | | | | | | Joanne Herman | | | | | | [place], [place] | | | | | | [address] | | | | | | [phone] | | | +--------+ + + + [...]
--- OUTSIDE RECORDS SUMMARY | ~2019-01-06 | XMS | Encounter Summary ---
Demographics + + + | Address | [address] | | | [place] [address] | + + + | Home Phone | | + + + | Preferred Language | Unknown | + + + | Marital Status | | + + + | Yazidi Affiliation | NON | + + + | Race | White | + + + | Ethnic Group | Not or | + + + Author + + + | Author | [facility] | + + + | Organization | [facility] | + + + | Address | [...] Team Providers + +------+ + | Care Hand Tacker Name | Role | Phone | + [...] | | | Hodgkins | [facility] | [address] | | | | | Lymphoma | MED GRP | [facility] | | | | | | PEDIATRIC | [address] [place], | | | | | | [address] | [place] | | | | | | [facility] | [address] | | | | | | [address] | Phone: | | | | | | [place], | [phone] | | | | | | [place] [address] | Fax: | | | | | | Phone: | [phone] | | | | | | [phone] | | | | | | | Fax: | | | | | | | [phone] | | +--------+--------+ + + + + Encounter Details +--------+---------+ + + + | Date | Type | Department | Care Team | Description | +--------+---------+ + + + | 03/31/ | Office | Center for | Quirino Moreno I, | Nodular sclerosis | | 2016 | Visit | Hematologic | ,PhD [address] | Hodgkin lymphoma of | | | | Malignancies at | [facility] [address] | lymph nodes of | | | | [facility] | [place], [place] | multiple regions | | | | [address] | [address] | (HCC) (Primary Dx); | | | | [address] | [phone] | 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 He will arrange this referral and their [...] as a meeting with Jenny Jimenez our manager social responsibility to help you if you need any other assi stance. We can usually coordinate this to happen here at [facility] over one to two days. Some sharmin [...] wei ts) It's done outpatient here at [facility] and lasts about 3-4 hours. Sometimes people will need to collect on more than one day. We will let you know if this is necessary. STEP 5) Transplant- after collection occurs, you will proceed to transplant. This can happe n anywhere from days to weeks later. You will admit to [facility] for your conditioning regimen of chemotherapy and will then receive your stem cells back through an infusion. This is about a 3 week hospitalization while you recover. After transplant you will need to be living close to [facility] (within 30 miles) for up to 45 [...] ptoms or side effects please call our pipe liner at [phone] Jeanette Lai RN, BMTCN Oncology Nurse Coordinator [facility] [place] [facility] [address] [place], [place] [address] tel [phone] fax [phone] email [email or web address] in this encounter Progress Notes Quirino Moreno MD,PhD - 04/04/2016 4:28 PM PDTFormatting of this note might be different fr om the original. [facility] Center for Hematologic Malignancies Assessment & Plan: 20 F, classical Hodgkins, early relapse stg 2 bulky S/p pediatric A(B)VE-PC x4 to CR with bleo omitted c2-4 Then low dose RT 21 Gy Early relapse in radiation field, Bx+ Standard approach for relapsed Hodgkins is salvage followed by autoBMT Would use [place] GDP regimen for salvage - not ICE [...] ready for mobilization/autoBMT Quirino Moreno MD [email or web address] Pediatric Heme/Onc: Anh oMreland MD ([place]) Nephrology: Raghav Miller MD ([place]) 04/2015 presented with flank pain CT C/A/P: 11 cm anterior mediastinal mass, pleural effusion & L supraclav adenopathy Needle bx: classical hodgkins, nodular sclerosing type Thoracentesis: reactive/benign BMBx: neg PET: bulky mediastinal mass, SUV 16; bilateral neck SUV 15; also R>L pleural effusion 05/10/15 began ABVE-PC (as per pediatric [id number]) - Dox 30 mg/m2 d1,2 - Bleo [...] L neck: classical Hodgkins Above therapy in [place] Just moved to [place] - [place] Very concerned about getting set up to continue ecalizumab - wants to arrange in [place] No significant neuropathy Denies night sweats, weight [...] Hx: 1 sister Aunt +hodgkins 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
--- OUTSIDE RECORDS SUMMARY | ~2019-01-06 | XMS | Encounter Summary ---
Demographics + + + | Address | [address] | | | [place] [address] | + + + | Home Phone [...] Team Providers + +------+ + | Care Recruitment Officer Name | Role | Phone | + [...] | | | | | Hodgkin | [facility] | [facility] | | | | | lymphoma of | Rd | Mailcode: | | | | | lymph nodes | [facility] [place] | UHN73A | | | | | of multiple | [address] | [place] | | | | | regions | Phone: | [place] | | | | | (HCC) | [phone] | [place], [place] | | | | | Procedures | Fax: | [address] | | | | | Zarx[facility] (For | [phone] | Phone: | | | | | Mobilizaton) | | [phone] | | | | | | | Fax: | | | | | | | [phone] | +--------+[phone]+ + + + + Encounter [...] [facility] | | | | | | [facility] | | | | | | Mailcode: [id number] | | | | | | Joanne Herman | | | | | | [place], [place] | | | | | | [address] | | | | | | [phone] | | | +--------+ + + + [...] [facility] | [address] | [place], [place] | | | [facility] [place] | [address] | [address] | | | TESTS | | | [...]
--- OUTSIDE RECORDS SUMMARY | ~2019-01-06 | XMS | Encounter Summary ---
Demographics + + + | Address | [address] | | | [place] [address] | + + + | Home Phone | | + + + | Preferred Language | Unknown | + + + | Marital Status | | + + + | Mormon Affiliation | NON | + + + | Race | White | + + + | Ethnic Group | Not or | + + + Author + + + | Author | [facility] | + + + | Organization | [facility] | + + + | [...] Team Providers + +------+ + | Care Slate Handler Name | Role | Phone | + [...] | | | | lymph nodes | [place], [place] | | | | | | of multiple | [address] | | | | | | sites | Phone: | | | | | | Procedures | [phone] | | | | | | DC INJ | Fax: | | | | | | ECULIZUMAB, | [phone] | | | | | | 10 MG DC | | | | | | | THER/PROPH/D | | | | | | | IAG IV DC | | | | | | | [...] | 2015 | Support | Oncology at [facility] | [address] [place], | Draw | | | Staff | [address] | [place] [address] [address], Hem | | | | | Mailcode: Center | [address] | | | | | for Health and | [place] [address] | | | | | Healing, Building [address] | | | | | | [place], [place] | | | | | | [address] | | | | | | [phone] | | | +--------+ + + + [...] Alert & Oriented x3 and 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 Refer to MAR and Onc Lines [...] MARICEL - PR[place], POINT | [address] [facility] | [place] [address] | | | OF CARE TESTS | [...] MARICEL JI | [address] | [place] [address] | | | SERVICES, SCOOBY | BLANCHE [...]
--- OUTSIDE RECORDS SUMMARY | ~2019-01-06 | XMS | Encounter Summary ---
Demographics + + + | Address | [address] | | | [place] [address] | + + + | Home Phone [...] Providers + +------+ + | Care Client Finance Analyst Name | Role | Phone | [...] | | Malignancies at | [facility] | | | | | Joanne Herman | [place], [place] | | | | | [address] [facility] | [address] | | | | | [facility] | [phone] | | | | | Mailcode: [id number] | | | | | | Joanne Herman | | | | | | [place], [place] | | | | | | [address] | | | | | | [phone] | | | +--------+ + + + [...]
--- OUTSIDE RECORDS SUMMARY | ~2019-01-06 | XMS | Encounter Summary ---
Demographics + + + | Address | [address] | | | [place] [address] | + + + | Home Phone [...] Providers + +------+ + | Care Train Director Name | Role | Phone | [...] | | Malignancies at | [facility] | | | | | [facility] | [place], [place] | | | | | [address] [facility] | [address] | | | | | [facility] | [phone] | | | | | Mailcode: [id number] | | | | | | [facility] | | | | | | [place], [place] | | | | | | [address] | | | | | | [phone] | | | +--------+ + + + [...]
--- OUTSIDE RECORDS SUMMARY | ~2019-01-06 | XMS | Encounter Summary ---
Demographics + + + | Address | [address] | | | [place] [address] | + + + | Home Phone | | + + + | Preferred Language | Unknown | + + + | Marital Status | | + + + | Latter-Day Affiliation | NON | + + + | Race | White | + + + | Ethnic Group | Not or | + + + Author + + + | Author | [facility] | + + + | Organization | [facility] | + + + | Address [...] Team Providers + +------+ + | Care Duplex Trimmer Name | Role | Phone | + [...] Rd | | | | | | [place], [place] | | | | | | [address] | | | | | | [phone] | | | +--------+ + + + [...]
--- OUTSIDE RECORDS SUMMARY | ~2019-01-06 | XMS | Encounter Summary ---
Demographics + + + | Address | [address] | | | [place] [address] | + + + | Home Phone | | + + + | Preferred Language | Unknown | + + + | Marital Status | | + + + | Baptist Affiliation | NON | + + + | Race | White | + + + | Ethnic Group | Not or | + + + Author + + + | Author | [facility] | + + + | Organization | [facility] | + + + | [...] Team Providers + +------+ + | Care Knife Grinder Name | Role | Phone | + +------+ + | Aashish Hilton MD | PCP | | + +------+ + Encounter Details +--------+ + + + + | Date | Type | Department | Care Team | Description | +--------+ + + + + | 12/01/ | Documentati | Center for | Maura Lai, | | | 2017 | on | Hematologic | RN [address] | | | | | Malignancies at | [facility] | | | | | [facility] | [place], [place] | | | | | [address] [facility] | [address] | | | | | [facility] | [phone] | | | | | Mailcode: [id number] | | | | | | [facility] | | | | | | [place], [place] | | | | | | [address] | | | | | | [phone] | | | +--------+ + + + [...]
--- OUTSIDE RECORDS SUMMARY | ~2019-01-06 | XMS | Encounter Summary ---
Demographics + + + | Address | [address] | | | [place] [address] | + + + | Home Phone [...] Team Providers + +------+ + | Care Utilization Management Um Nurse Name | Role | Phone | + [...] | | | | Malignancies at | [facility] | | | | | Joanne Herman | [place], [place] | | | | | [address] [facility] | [address] | | | | | [facility] | [phone] | | | | | Mailcode: [id number] | | | | | | Joanne Herman | | | | | | [place], [place] | | | | | | [address] | | | | | | [phone] | | | +--------+ + + + [...]
--- OUTSIDE RECORDS SUMMARY | ~2019-01-06 | XMS | Encounter Summary ---
Demographics + + + | Address | [address] | | | [place] [address] | + + + | Home Phone | | + + + | Preferred Language | Unknown | + + + | Marital Status | | + + + | Adventist Affiliation | NON | + + + [...] Team Providers + +------+ + | Care Bottle Inspector Name | Role | Phone | + +------+ + | Aashish Hilton MD | PCP | | + +------+ + Encounter Details +--------+ + + + + | Date | Type | Department | Care Team | Description | +--------+ + + + + | 06/25/ | Group Controller | Center for | Quirino Moreno I, | Hodgkin's disease, | | 2016 | | Hematologic | ,PhD [address] [facility] | nodular sclerosis, | | | | Malignancies at | [facility] [address] | of lymph nodes of | | | | [facility] | [place], [place] | multiple sites (HCC) | | | | [address] [facility] | [address] | (Primary Dx) | | | | [facility] | [phone] | | | | | Mailcode: [id number] | | | | | | [facility] | | | | | | [place], [place] | | | | | | [address] | | | | | | [phone] | | | +--------+ + + + [...] DEPT OF | [address] | [place], [place] | | | CARDIOLOGY | [address] | [address] | | + + + + + documented in this encounter Visit Diagnoses + + | Diagnosis | + + | Hodgkin's disease, nodular sclerosis, 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
--- OUTSIDE RECORDS SUMMARY | ~2019-01-06 | XMS | Encounter Summary ---
Demographics + + + | Address | [address] | | | [place] [address] | + + + | Home Phone [...] Team Providers + +------+ + | Care Enzyme Chemist Name | Role | Phone | + +------+ + | No Pcp Per Patient | PCP | Unavailable | + +------+ + Encounter Details +--------+ + + + + | Date | Type | Department | Care Team | Description | +--------+ + + + + | 08/18/ | Telephone | Hematology/Medical | [place], | | | 2016 | | Oncology at Center | MD [address] | | | | | for Health & Healing | [address] [place], | | | | | [address] | [place] [address] | | | | | Mailcode: [place] | [phone] | | | | | for Health and | | | | | | Healing, Building [address] | | | | | | [place], [place] | | | | | | [address] | | | | | | [phone] | | | +--------+ + + + [...]
--- OUTSIDE RECORDS SUMMARY | ~2019-01-06 | XMS | Encounter Summary ---
Demographics + + + | Address | [address] | | | [place] [address] | + + + | Home Phone | | + + + | Preferred Language | Unknown | + + + | Marital Status | | + + + | Adventism Affiliation | NON | + + + [...] Team Providers + +------+ + | Care Bisque Kiln Placer Name | Role | Phone | + [...] | | Malignancies at | [facility] | | | | | [facility] | [place], [place] | | | | | [address] | [address] | | | | | [facility] | [phone] | | | | | Mailcode: [id number] | | | | | | [facility] | | | | | | [place], [place] | | | | | | [address] | | | | | | [phone] | | | +--------+ + + + [...]
--- OUTSIDE RECORDS SUMMARY | ~2019-01-06 | XMS | Encounter Summary ---
Demographics + + + | Address | [address] | | | [place] [address] | + + + | Home Phone | | + + + | Preferred Language | Unknown | + + + | Marital Status | | + + + | Uatsdin Affiliation | NON | + + + [...] Team Providers + +------+ + | Care Wind Farm Designer Name | Role | Phone | + +------+ + | Aashish Hilton MD | PCP | | + +------+ + Reason for Visit + + + | Reason | Comments | + + + | Transplant follow-up | | + + + AUTH/CERT +--------+--------+ [...] Description | +--------+---------+ + + + | 08/10/ | Office | Center for | Coreen Grissom, | Nodular sclerosis | | 2016 | Visit | Hematologic | PA [address] | Hodgkin lymphoma of | | | | Malignancies at | [address] | lymph nodes of | | | | [facility] | [place], [place] | multiple regions | | | | [address] | [address] | ([facility]) (Primary Dx); | | | | [address] | [phone] | Autologous bone | | | | Mailcode: [id number] | | marrow | | | | [facility] | | transplantation | | | | [place], [place] | | status ([facility]) | | | | [address] | | | | | | [phone] | | | +--------+---------+ + + + [...] + + + | Blood Pressure | 123/85 | 08/10/2016 2:54 PM | | | | | PST | | + + + + + | Pulse | 119 | 08/10/2016 2:54 PM | | | | | PST | | + + + + + | Temperature | 36.7 C (98 F) | 08/10/2016 2:54 PM | | | | | PST | | + + + + + | Respiratory Rate | 22 | 08/10/2016 2:54 PM | | | | | PST | | + + + + + | Oxygen Saturation | 100% | 08/10/2016 2:54 PM | | | | | PST | | + + + + + | Inhaled Oxygen | - | - | | | Concentration | | | | + + + + + | Weight | 95.9 kg (211 lb 6.7 | 08/10/2016 2:54 PM | | | | oz) | PST | | + + + + + | Height | - | - | | + + + + + | Body Mass Index | 31.14 | 07/15/2016 4:20 PM | | | | | PST | | + + + + + documented in this encounter Patient Instructions Patient Instructions Coreen Grissom PA - 08/10/2016 3:15 PM PSTCall the BMT clinic ([phone]) or BMT person on-call ([phone]) for: Any temp > 100.4 Nausea/vomiting unresponsive to anti-nausea medications Significant diarrhea despite Imodium Inability to drink at least 2 liters of fluid daily You develop a rash Bleeding -Stop taking ursodiol after tomorrow night's dose. -Do not infuse vancomycin tonight or tomorrow morning. We will let you know how to adjust the dose tomorrow after we check another drug level. documented in this encounter Progress Notes Coreen Grissom PA - 08/10/2016 3:15 PM PSTFormatting of this note might be different f rom the original. 08/10/2016 [facility] Physician: Quirino Moreno MD Local Oncologist: Dr. Hilton PCP: Aashish Hilton MD Hematologic Malignancy: Relapsed HL Conditioning regimen: BEAM Date of transplant: 07/21/16 Donor: Autologous Hematologic History: Meggan Otero is a 20 y.o. 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, admit for autoBMT Local oncologist: Aashish Hilton MD ([facility]) Benign Hematology: Jim Michael MD ([facility]) Pediatric Heme/Onc: Anh Moreland MD ([place]) Nephrology: Raghav Miller MD ([place]) 04/2015 presented with flank pain CT C/A/P: 11 cm anterior mediastinal mass, pleural effusion & L supraclav adenopathy Needle bx: classical hodgkins, nodular sclerosing type Thoracentesis: reactive/benign BMBx: neg PET: bulky mediastinal mass, SUV 16; bilateral neck SUV 15; also R>L pleural effusion 05/10/15 began ABVE-PC (as per pediatric [id number]) via femoral line 05/16/15 presented with sepsis [...] neck: classical Hodgkins Above therapy in [place] -> moved to [place] Continued on ecalizumab per benign heme ([place]) - genetic testing for aHUS PENDING GDP x3 06/2017 CR by PET Shanell placed GCSF stem cell mobilization: 7.3 x10^6 cd34/kg She was recently hospitalized from 07/15/16-08/07/16 [facility]. For complete details of her recent hospitalization, please see discharge dictation in EPIC. Briefly, her transplant hospitalization was complicated by: pancytopenia, neutropenic fevers, MRSA bacteremia, orthostatic hypotension, chemotherapy induced nausea, mucositis. Meggan Otero is a 20 y.o. female with hx of relapsed HL, currently day +20 s/p BEAM co nditioned autologous peripheral blood stem cell transplant. Interval Hx: Meggan presents to clinic today for her routine scheduled visit. She is accompanied by her m other and brother in clinic today. This is Meggan's first visit post-discharge and she is fe eling pretty well. Her energy level is low but improving. She did have some dizziness yest erday which resolved after receiving IV fluids in clinic. No dizziness or lightheadedness n oted today. She has some ongoing nausea but this is relatively controlled with zyprexa and zofran BID. She is eating small meals and drinking ~2L/day in PO fluids. She denies fevers or diarrhea. She has been infusing vancomycin at home BID and last dose was this AM. Review of Systems: General: +fatigue-improving Denies fevers, [...] every twelve hours as needed. Indications: Constipation URSODIOL 300 MG CAPSULE Take 1 capsule by mouth two times daily for 6 days. VANCOMYCIN 1,000 MG INTRAVENOUS INJECTION Inject 1,750 mg into the vein (IV) every twelve h ours for 9 days. To be admixed per infusion pharmacy standard policy and/or procedure. END D ATE 08/15/16 Vitals: BP 123/85 | Pulse 119 | Temp (Src) 36.7 C (98 F) (Oral) | RR 22 | Wt 95.9 kg (211 lb 6. 7 oz) | SpO2 100% | BMI 31.14 kg/(m^2) Physical Exam: General: This is a [...] 72 hours (or 3 results) Recent Labs 08/08/16 1112 08/09/16 0932 08/10/16 1506 WBC 1.8* 1.7* 1.4* HB 7.1* 6.7* 7.0* HCT 21.8* 20.4* 21.1* PLT 22* 15* 13* MONOPERC 7.6 5.3 9.6* BASOPERC 0.0 0.0 0.0 EOSPERC 0.0* 0.0* 0.0* Chemistries: Last 72 Hours (or 3 results): Recent Labs 08/04/16 2355 08/05/16 2330 08/07/16 0003 08/09/16 0906 08/09/16 0934 08/10/16 1444 08/10/16 1518 NA 143 142 143 -- 136 -- 143 K 3.4 3.2* 3.3* -- 3.6 -- 3.3* CL 111* 109* 109* -- 105 -- 108 BICARB 22 24 24 -- 20* -- 23 BUN 6 7 8 -- 23* -- 23* CR 0.60 0.64 0.72 -- 1.2* -- 1.6* GLU 85 96 97 -- 117* -- 110* CA 8.1* 8.2* 8.4* -- 9.0 -- 8.9 AST 10 11 15 21 -- 16 -- ALT 13 12 14 19 -- 17 -- AP 77 80 84 108* -- 111* -- TBILI 0.4 0.5 1.0 0.9 -- 0.6 -- TP 6.0* 6.0* 6.2* 6.5 -- 6.6 -- ALB 2.7* 2.7* 3.0* 3.5 -- 3.5 -- ANIONGAP 10 9 10 -- -- -- -- ANIONALBCOR 13* 12* 12* -- -- -- -- Hematology: Hematologic Malignancy: relapsed HL Conditioning Regimen: BEAM Stem cell transplant -Stem Cell product: tolerated stem cell product on 07/21/16 without complications. CD 34 cou nt = 7.3 x 10^6 per kg -BMT Day: +20 CBC reviewed and reveals pancytopenia. 1U PRBC and 1U PPH given today. Continues daily ne upogen -Around day + 30, we will return her to her primary attending with our BMT service, Dr. Cira leon; first appointment scheduled for 08/26/16. -Plan for Brentuximab maintenance starting ~6 wks post-BMT back home which improves EFS in high risk pts post-auto. She meets high risk criteria due to early relapse. Supportive Care: Growth Factor: Started daily Zarxio dosing on Day +5 (07/26) and will continue until ANC > 1500 x 2 consecutive days. Labs: Continue to check CBC twice weekly [...] if asymptomatic GI: Hx of GERD: Pepcid ACCOUNTS COLLECTOR -Prilosec 40 mg daily Nausea: ongoing, improved -Zofran PO BID -Zyprexa 10 mg qhs -PRN antiemetics /renal: Atypical HUS: Eculizumab prior to transplant -Eculizumab q 2 weeks, last dose given in clinic on 08/09. -Monitor for hemolysis flare -Monitor LDH, hapto, complement activity qMon, Thurs Menses suppression: -Norethindrone, started 08/05 BRETT: 2/2 supratherapeutic vancomycin. SCr up to 1.6 today. Vanco level today done after d ose this morning. -HOLD vancomycin tonight and tomorrow AM -Recheck vancomycin level tomorrow and adjust dose at that time. Neuro/Psych: Depression/Anxiety: Lexapro prior to transplant -Lexapro 10 mg daily -Ativan PRN Infectious Disease: MRSA bacteremia (07/28): noted during initial transplant admission. PAC and Reece remove d on 07/30. TTE neg. -Vancomycin (07/29- ), end date 08/15/16. Will hold until vanco level repeat on 08/11 given BRETT Afebrile and no localizing s/s of acute [...] day. Fluid: 1L NS bolus IV today and daily d/t BRETT Lytes: Continue to check chemistries twice weekly. Replace per supportive care protocol. Plan: -KDur 20 mEq PO -1L NS bolus IV today and daily -1U PRBCs and 1U PPH -Zarxio 480 mcg SC x 1 today and continue daily until ANC >1500 -HOLD vancomycin and repeat level tomorrow -Dc ursodiol after 08/11 -RTC daily for labs and neupogen. -Return to clinic on 08/13 to see me, sooner prn [facility] [place] [address] [facility] Mailcode: [id number] [phone] documented in this encounter Plan of Treatment + + +--------+ + + | Name | Type | Priori | Associated Diagnoses | Order Schedule | | | | ty | | | + + +--------+ + + | CBC+DIFF,POC | Lab - Point | Routin | Nodular sclerosis | Expected: 08/10/2016 | | | of Care | e | Hodgkin lymphoma of | | | | Interface | | lymph nodes of | 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 | | | | | | status (HCC) | | + + +--------+ + + documented as of this encounter Results BMP + MAG, POC CHM (08/13/2016 1:01 PM PST) + +---------+ + + + | Component | Value | Ref Range | Performed | Pathologist | | | | | At | Signature | + +---------+ + + + | SODIUM, POC | 138 | 134 - 143 | [facility] - | | | | | mmol/L | [place] | | | | | | [place] [facility] | | | | | | OF CARE | | | | | | TESTS | | + +---------+ + + + | POTASSIUM, | 3.5 | 3.4 - 5.0 | [facility] - | | | POC | | mmol/L | [place] | | | | | | [facility] | | | | | | OF CARE | | | | | | TESTS | | + +---------+ + + + | TOTAL CO2, | 27 | 22 - 29 mmol/L | [facility] [...] +---------+ + + + | CALCIUM | 8.6 (L) | 8.6 - 10.2 | [facility] - [...] + + + | LDH, POC | 339 (H) | 0 - 206 U/L | [...] MARICEL KILGORE | [address] | [place], [place] | | | [place] OF [place] | [facility] | [address] | | | TESTS | | | | + + + + + CBC+DIFF,POC (08/13/2016 1:01 PM PST) + + + + + + | Component | Value | Ref Range | Performed | Pathologist | | | | | At | Signature | + + + + + + | WBC POC | 2.6 (L) | 4.4 - 11.0 | [facility] - | | | | | 10*3/uL | [facility] | | | | | | [facility] | | | | | | OF CARE | | | | | | TESTS | | + + + + + + | RBC POC | 2.84 (L) | 4.00 - 5.20 | [facility] - | | | | | 10*6/uL | [place] | | | | | | [place] [facility] | | | | | | OF CARE | | | | | | TESTS | | + + + + + + | HGB POC | 8.9 (L) | 12.0 - 16.0 | [facility] - | | | | | g/dL | [place] | | | | | | [place] [facility] | | | | | | OF CARE | | | | | | TESTS | | + + + + + + | HCT POC | 25.6 (L) | 36.0 - 46.0 % | [...] + + + | MCHC POC | 34.8 | 33.0 - 35.5 | [facility] - | | | | | g/dL | [place] | | | | | [...] + + + | PLT POC | 16 (L) | 150 - 400 | [facility] [...] + + + + | NEUTROPHIL% | 62.5 | 50.0 - 70.0 % | [facility] - | | | POC | | | [place] | | | | | | [place] [facility] | | | | | | OF CARE | | | | | | TESTS | | + + + + + + | LYMPH% POC | 27.7 | 18 - 42 % | [facility] - | | | | | | [place] | | | | | | [place], POINT | | | | | | OF CARE | | | | | | TESTS | | + + + + + + | MONO %, POC | 9.4 (H) | 3.5 - 9.0 % | [facility] - | | | | | | [place] | | | | | | [place], POINT | | | | | | OF CARE | | | | | | TESTS | | + + + + + + | EOS %, POC | 0.4 (L) | 1.0 - 3.0 % | [...] + + + + | NEUTROPHIL# | 1.6 (L) | 1.8 - 7.7 | [facility] [...] + + | MONO #, POC | 0.2 | 0.1 - 0.9 | [facility] - [...] | CBC | PLT Abn Dist. Imm Gran. | | [facility] - | | | COMMENT, | Lft Shift. | | [place] | | [...] K[facility] | [address] | [place], [place] | | | [facility] POINT OF CARE | [address] | [address] | | | TESTS | | | | + + + + + HAPTOGLOBIN, SERUM (08/13/2016 12:41 PM PST) + +---------+ + + + | Component | Value | Ref Range | Performed | Pathologist | | | | | At | Signature | + +---------+ + + + | HAPTOGLOBIN | <10 (L) | 30 - 200 mg/dL | [facility] | | | | | | [facility] - | | | | | | [place] | | + +---------+ + + + + + | Specimen | + + | Blood | + + + + + + + | Performing | Address | City/State/Zipcode | Phone Number | | Organization | | | | + + + + + | [facility] [facility] - | [address] | [place] [address] | | | [place] | | | | + + + + + LIVER SET (AST,ALT,BILI TOTAL,BILI DIRECT,ALK PHOS,ALB,PROT TOTAL) (08/13/2016 12:41 PM PST ) + +---------+ + + [...] +---------+ + + + | BILIRUBIN | 0.7 | 0.3 - 1.2 mg/dL | [facility] | | | TOTAL | | | LABORATORY | | | | | | SERVICES, | | | | | | CORE | | + +---------+ + + + | BILIRUBIN | 0.1 | 0.0 - 0.3 mg/dL | [facility] | | | DIRECT | | | LABORATORY | | | | | | SERVICES, | | | | | | CORE | | + +---------+ + + + | ALK PHOS | 110 (H) | 42 - 98 U/L | [facility] | | | | | | LABORATORY | | | | | | SERVICES, | | | | | | CORE | | + +---------+ + + + | AST(SGOT) | 20 | <=41 U/L | [facility] | | [...] [facility] | [address] | [place] [address] | | | SERVICES, CORE | [address] | | | + + + + + PHOSPHORUS, PLASMA (08/13/2016 12:41 PM PST) + +-------+ + + + [...] | + + + + + | [facility] | [address] | [place] [address] | | | SERVICES, CORE | [address] [...]
--- OUTSIDE RECORDS SUMMARY | ~2019-01-06 | XMS | Encounter Summary ---
Demographics + + + | Address | [address] | | | [place] [address] | + + + | Home Phone | | + + + | Preferred Language | Unknown | + + + | Marital Status | | + + + | Mormon Affiliation | NON | + + + | Race | White | + + + | Ethnic Group | Not or | + + + Author + + + | Author | [facility] | + + + | Organization | [facility] | + + + | Address | [...] Providers + +------+ + | Care Supervisor Pig Machine Name | Role | Phone | + [...] | | Malignancies at | [facility] | | | | | [facility] | [place], [place] | | | | | [address] [facility] | [address] | | | | | [facility] | [phone] | | | | | Mailcode: [id number] | | | | | | [facility] | | | | | | [place], [place] | | | | | | [address] | | | | | | [phone] | | | +--------+ + + + [...]
--- OUTSIDE RECORDS SUMMARY | ~2019-01-06 | XMS | Encounter Summary ---
Demographics + + + | Address | [address] | | | [place] [address] | + + + | Home Phone | | + + + | Preferred Language | Unknown | + + + | Marital Status | | + + + | Cheondoism Affiliation | NON | + + + [...] Team Providers + +------+ + | Care Security Site Supervisor Name | Role | Phone | [...] | | | | | Ave | [place], [place] | | | | | | [place] | [address] | | | | | | [address] | Phone: | | | | | | Phone: | [phone] | | | | | | [phone] | Fax: | | | | | | Fax: | [phone] | | | | | | [phone] | | +--------+--------+ + + + + Encounter Details +--------+---------+ + + + | Date | Type | Department | Care Team | Description | +--------+---------+ + + + | 08/13/ | Office | Center for | Coreen Grissom, | Nodular sclerosis | | 2016 | Visit | Hematologic | [place] [address] [facility] | Hodgkin lymphoma of | | | | Malignancies at | [facility] | lymph nodes of | | | | [facility] | [place], [place] | multiple regions | | | | [address] [facility] | [address] | (HCC) (Primary Dx); | | | | [employer] [employer] | [phone] | Autologous bone | | | | Mailcode: [facility]73[facility] | | marrow | | | | [facility] | | transplantation | | | | [place], [place] | | status (HCC) | | | | [address] | | | | | | [phone] | | | +--------+---------+ + + + [...] for autoBMT Local oncologist: Aashish Hilton MD ([facility]/[place]) Benign Hematology: Jim Michael MD ([facility]) Pediatric Heme/Onc: Anh Moreland MD ([place]) Nephrology: Raghav Miller MD ([place]) 04/2015 presented with flank pain CT C/A/P: 11 cm anterior mediastinal mass, pleural effusion & L supraclav adenopathy Needle bx: classical hodgkins, nodular sclerosing type Thoracentesis: reactive/benign BMBx: neg PET: bulky mediastinal mass, SUV 16; bilateral neck SUV 15; also R>L pleural effusion 05/10/15 began ABVE-PC (as per pediatric [id number]) via femoral line 05/16/15 presented with sepsis [...] L neck: classical Hodgkins Above therapy in [place] -> moved to [place] Continued on ecalizumab per benign heme ([place]que[place]adrianna) - genetic testing for aHUS PENDING GDP x3 06/2017 CR by PET Reece placed GCSF stem cell mobilization: 7.3 x10^6 cd34/kg She was recently hospitalized from 07/15/16-08/07/16 [facility] For complete details of her [...] if asymptomatic GI: Hx of GERD: Pepcid CHIEF LIBRARIAN BRANCH -Prilosec 40 mg daily Nausea: ongoing, improved [...] [facility] AT [address] Mailcode: [place] [address] documented in this encounter Plan [...] [facility] | [address] | [place], [place] | | | [facility] | [facility] | [address] | | | TESTS | | | [...] [place] | [address] | [place], [place] | | | [facility] | [address] | [address] | | | TESTS | | | [...] + | [facility] - AIRPORT - | [address] | [place] [address] | | | [place] | | | [...] [facility] | [address] | [place] [address] | | | SERVICES, CORE | PARK [...] + + + + + | [facility] | [address] | [place] [address] | | | SERVICES, CORE | BLANCHE [...]
--- OUTSIDE RECORDS SUMMARY | ~2019-01-06 | XMS | Encounter Summary ---
Demographics + + + | Address | [address] | | | [place] [address] | + + + | Home Phone [...] Team Providers + +------+ + | Care Election Assistant Name | Role | Phone | + +------+ + | Aashish Hilton MD | PCP | | + +------+ + Reason for Visit + + + | Reason | Comments | + + + | Lab Draw | | + + + | Intravenous infusion | 1L NS, Magnesium | + + + | Transfusion | platelets, PRBC | + + + Benefits Check (Routine) +--------+--------+ + + + + | Status | Reason | Specialty | Diagnoses / | Referred By | Referred To | | | | | Procedures | Contact | Contact | +--------+--------+ + + + + | Closed | | Hematology | Diagnoses | Quirino Moreno | [facility] | | | | Malignancy | Nodular | MD Ronak,PhD | [facility] [address] | | | | | sclerosis | [address] | [address] | | | | | Hodgkin | [facility] | [facility] | | | | | lymphoma, | Rd | Mailcode: | | | | | lymph nodes | [place], [place] | [id number] | | | | | of multiple | [address] | [place] | | | | | sites | Phone: | Virgil | | | | | | [phone] | [place], [place] | | | | | | Fax: | [address] | | | | | | [phone] | Phone: | | | | | | | [phone] | | | | | | | Fax: | | | | | | | [phone] | +--------+--------+ + + + + Encounter Details +--------+ + + + + | Date | Type | Department | Care Team | Description | +--------+ + + + + | 08/20/ | Clinical | Center for | | Lab Draw; | | 2016 | Support | Hematologic | | Intravenous infusion | | | Staff | Malignancies at [facility] | | (1L NS, Magnesium); | | | | [address] | | Transfusion | | | | [facility] | | (platelets, PRBC) | | | | Mailcode: [facility] | | | | | | Joanne Herman | | | | | | [place], [place] | | | | | | [address] | | | | | | [phone] | | | +--------+ + + + [...] + + + | Blood Pressure | 143/97 | 08/20/2016 5:50 PM | | | | | PST | | + + + + + | Pulse | 80 | 08/20/2016 5:50 PM | | | | | PST | | + + + + + | Temperature | 37 C (98.6 F) | 08/20/2016 5:50 PM | | | | | PST | | + + + + + | Respiratory Rate | 18 | 08/20/2016 5:50 PM | | | | | PST [...] + documented in this encounter Progress Notes Kenyatta Rios RN - 08/20/2016 12:40 PM PST08/20/16: 25 mg of Benadryl was wasted.Electron ashley signed by Kenyatta Rios RN at 09/05/2016 3:26 PM PSTKenyatta Rios RN - 2016 12:40 PM PST INFUSION/TRANSFUSION NURSING NOTE Provider: Dr. Moreno Narrative: Pt arrived in clinic for scheduled lab draw, provider visit, and supportive care . Pt states she is feeling well today. Pt denies any fevers, chills, nausea, vomiting, pain , constipation, diarrhea, edema, sob, numbness, tingling, or mouth sores. Pt reports they ar e eating and drinking adequately. Nursing Assessment: Fever: no; Diarrhea: no; SOB / Cough: no; Nausea / Vomiting: no; Anemia / Fatigue: no; Cons tipation: no; Edema: no; S/S Bleeding: no; Mucositis: no; Urinary: no; Neuropathy: no; Rash: no Vascular Access: PICC accessed per protocol. Good blood return noted. Appropriate waste d iscarded. Labs drawn and sent. PICC pulse flushed with 20 mL NS. Patient scheduled for pr ovider visit today with Coreen Grissom PA-C. Treatment: Magnesium Sulfate 4 gm in 100 mL NS infused over 2 hours per supportive care ord ers for a magnesium level of 1.5. For infusion details, see MAR. Lab Results Component Value Date PLT 20 08/20/2016 Orders to transfuse platelet product for a [...] ONC Lines & Tr ansfusions doc flowsheet. Lab Results Component Value Date HCT 20.9 08/20/2016 HB 7.3 08/20/2016 Orders to transfuse PRBC product for a [...] Informed consent was verified. The patient was premedicated with liquid Tylenol 650 mg and Benadryl 25 mg IV, then receive d 1 unit of PRBCs per Provider s orders. Transfusion was tolerated well without complicat ion. Frequent vital signs were monitored throughout the transfusion and reviewed by me. Tatianna vernon transfusion details, see ONC Lines & Transfusions doc flowsheet. Pt will need Solaris and Pentamidine on Tuesday08/23/16 Patient was reminded to call clinic with temp Next Appointment in [facility] is on 08/23/16 at 1:10 pm with [facility]. 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 | | | | | status (HCC) | | + +--------+ + + + | BMP + MAG, POC CHM | Routin | 08/20/2016 | Nodular sclerosis | Results for this | | | e | 1:38 PM | Hodgkin lymphoma of | procedure are in the | | | | PST | lymph nodes of | results section. 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 | | | | | status ([facility]) | | + +--------+ + + + | CBC+DIFF,POC | Routin | 08/20/2016 | Nodular sclerosis | Results for this [...] | | | | | | status ([facility]) | | + +--------+ + + + | TREATMENT PARAMETERS | Routin | 08/20/2016 | Nodular sclerosis | | | #2 - [place] | e | 12:37 PM | Hodgkin lymphoma of | | | | | PST | lymph nodes of | | | | | | multiple regions | | | | | | (HCC) | | + +--------+ + + + | TREATMENT PARAMETERS | Routin | 08/20/2016 | Nodular sclerosis | | | #2 - [place] | e | 12:37 PM | Hodgkin lymphoma of | | | | | PST | lymph nodes of | | | | | | multiple regions | | | | | | (HCC) | | + +--------+ + + + | TREATMENT PARAMETERS | Routin | 08/20/2016 | Nodular sclerosis | | | #2 - [place] | e | 12:37 PM | Hodgkin lymphoma of | | | | | PST | lymph nodes of | | | | | | multiple regions | | | | | | (HCC) | | + +--------+ + + + | TREATMENT PARAMETERS | Routin | 08/20/2016 | Nodular sclerosis | | | #2 - [place] | e | 12:37 PM | Hodgkin lymphoma of | | | | | PST | lymph nodes of | | | | | | multiple regions | | | | | | (HCC) | | + +--------+ + + + | TREATMENT PARAMETERS | Routin | 08/20/2016 | Nodular sclerosis | | | #2 - [place] | e | 12:37 PM | Hodgkin lymphoma of | | | | | PST | lymph nodes of | | | | | | multiple regions | | | | | | (HCC) | | + +--------+ + + + | NURSING | Routin | 08/20/2016 | Nodular sclerosis | | | COMMUNICATION #3 - | e | 12:37 PM | Hodgkin lymphoma of | | | [place] | | PST | lymph nodes of | | | | | | multiple regions | | | | | | (HCC) | | + +--------+ + + + | NURSING | Routin | 08/20/2016 | Nodular sclerosis | | | COMMUNICATION #2 - | e | 12:37 PM | Hodgkin lymphoma of | | | [place] | | PST | lymph nodes of | | | | | | multiple regions | | | | | | (HCC) | | + +--------+ + + + | NURSING | Routin | 08/20/2016 | Nodular sclerosis | | | COMMUNICATION #1 - | e | 12:37 PM | Hodgkin lymphoma of | | | [place] | | PST | lymph nodes of | | | | | | multiple regions | | | | | | (HCC) | | + +--------+ + + + | TREATMENT PARAMETERS | Routin | 08/20/2016 | Nodular sclerosis | | | #1 - [place] | e | 12:37 PM | Hodgkin lymphoma of | | | | | PST | lymph nodes of | | | | | | multiple regions | | | | | | (HCC) | | + +--------+ + + + | TREATMENT PARAMETERS | Routin | 08/20/2016 | Nodular sclerosis | | | #1 - [place] | e | 12:37 PM | Hodgkin lymphoma of | | | | | PST | lymph nodes of | | | | | | multiple regions | | | | | | (HCC) | | + +--------+ + + + | LIVER SET | Routin | 08/20/2016 | Nodular sclerosis | Results for this | | (AST,ALT,BILI | e | 12:37 PM | Hodgkin lymphoma of | procedure [...] + | PHOSPHORUS, PLASMA | Routin | 08/20/2016 | Nodular sclerosis | Results for this | | | e | 12:37 PM | Hodgkin lymphoma of | procedure [...] + + | HAPTOGLOBIN | Routin | 08/20/2016 | Nodular sclerosis | Results for this | | | e | 12:37 PM | Hodgkin lymphoma of | procedure [...] + + documented in this encounter Results PRODUCT - RED CELLS LEUKOREDUCED (08/20/2016 2:33 PM PST) + + + + + [...] + + + + | PRODUCT | [id number] | | [facility] | | | UNIT [...] + + + + | EXPIRATION | [id number] | | [facility] | | | DATE [...] + + + + | BLOOD | [id number] | | [facility] | | | PRODUCT [...] | + + + + + | [facility] | [address] | [place] [address] | | | ELISA | [address] | | | | TRANSFUSION MEDICINE | | | | + + + + + BMP + MAG, POC CHM (08/20/2016 1:38 PM PST) + +---------+ + + + | Component | Value | Ref Range | Performed | Pathologist | | | | | At | Signature | + +---------+ + + + | SODIUM, POC | 137 | 134 - 143 | [facility] - | | | | | mmol/L | [facility] | | | | | [...] | | | POC | | | [facility] | | | [...] [facility] | [address] | [place], [place] | | | [facility] | [facility] | [address] | | | TESTS | | | | + + + + + PRODUCT - PLATELET PHERESIS LEUKOREDUCED (08/20/2016 1:23 PM PST) + + + + [...] + + + + | PRODUCT | [id number] | | [facility] | | | UNIT [...] + + + + | EXPIRATION | [id number] | | [facility] | | | DATE [...] + + + + | BLOOD | [id number] | | [facility] | | | PRODUCT [...] [facility] | [address] | [place] [address] | | | ELISA | [address] | | | | [...] 4.0 (L) | 4.4 - 11.0 | [facility] - | | | | | 10*3/uL [...] [facility] | [address] | [place], [place] | | | [facility] | [address] | [address] | | | TESTS | | | [...] + | [facility] - AIRPORT - | [address] | [place] [address] | | | [place] | | | | + + + [...] | + +---------+ + + + | JOSSELYN Deluca CMNT | No Hemo | | [facility] [...] [facility] | [address] | [place] [address] | | | SERVICES, CORE | PARK [...] | + + + + + | [facility] | [address] | [place] [address] | | | SERVICES, CORE | BLANCHE [...] | acetaminophen (TYLENOL) oral | Given | 08/20/19 | 650 mg | | | | suspension 650 mg 650 mg, oral, | | 17 4:06 | | | | | NEEDED, Starting 08/20/16 at | | PM PST | | | | | 1529, Until 08/21/16 at 0027, | | | | | | | pre-med for blood transfusion | | | | | | + +--------+ +--------+------+------+ +---+---+ | | | +---+---+ + +---------+ +-------+---+---+ | diphenhydrAMINE (BENADRYL) | IV Push | 08/20/19 | 25 mg | | | | injection 25 mg 25 mg, | | 17 3:55 | | | | | intravenous, EVERY 4 HOURS | | PM PST | | | | | NEEDED, Starting 08/20/16 at | | | | | | | 1529, Until 08/21/16 at 0027, | | | | | | | pre-med for blood transfusion | | | | | | + +---------+ +-------+---+---+ +---+---+ | | | +---+---+ + +---------+ +-----+---+---+ | magnesium sulfate in water IV | New Bag | 08/20/19 | 2 g | | | | (RTU) 2 g 2 g, intravenous, | | 17 1:10 | | | | | ONCE, 1 dose, Tue08/20/16 at 1245 | | PM PST | | | | + +---------+ +-----+---+---+ +---+---+ | | | +---+---+ + +---------+ +-----+---+---+ | magnesium sulfate in water IV | New Bag | 08/20/19 | 2 g | | | | (RTU) 2 g 2 g, intravenous, | | 17 1:55 | | | | | ONCE, 1 dose, 08/20/16 at 1415 | | PM PST | | | | + +---------+ +-----+---+---+ +---+---+ | | | +---+---+ + +---------+ + +---+---+ | NaCl 0.9 % solution 1,000 mL, | New Bag | 08/20/19 | 1,000 mL | | | | intravenous, ONCE, 1 dose, Fri | | 17 1:10 | | | | | 08/20/16 at 1315 | | PM PST | | | | + +---------+ + +---+---+ +---+---+ | | | +---+---+ documented in this encounter"
--- OUTSIDE RECORDS SUMMARY | ~2019-01-06 | XMS | Encounter Summary ---
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
--- OUTSIDE RECORDS SUMMARY | ~2019-01-06 | XMS | Encounter Summary ---
Demographics + + + | Address | [address] | | | [place] [address] | + + + | Home Phone | | + + + | Preferred Language | Unknown | + + + | Marital Status | | + + + | Quaker Affiliation | NON | + + + | Race | White | + + + | Ethnic Group | Not or | + + + Author + + + | Author | [facility] | + + + | Organization | [facility] | + + + | Address [...] Team Providers + +------+ + | Care Destination Coordinator Name | Role | Phone | + +------+ + | Aashish Hilton MD | PCP | | + +------+ + Reason for Visit + + + | Reason | Comments | + + + | Lab Draw | PIV | + + + | Injection | Neupogen | + + + AUTH/CERT +--------+--------+ + [...] + + + + | 07/05/ | Clinical | [facility] | | Lab Draw (PIV); | | 2016 | Support | Hematologic | | Injection (Neupogen) | | | Staff | [facility]ign[facility] at [facility] | | | | | | [address] | | | | | | [facility] | | | | | | Mailcode: [id number] | | | | | | Joanne Herman | | | | | | [place], [place] | | | | | | [address] | | | | | | [phone] | | | +--------+ + + + [...] + + + | Blood Pressure | 123/84 | 07/05/2016 7:37 AM | | | | | PST | | + + + + + | Pulse | 125 | 07/05/2016 7:37 AM | | | | | PST | | + + + + + | Temperature | 37 C (98.6 F) | 07/05/2016 7:37 AM | | | | | PST | | + + + + + | Respiratory Rate | 20 | 07/05/2016 7:37 AM | | | | | PST | | + + + + + | Oxygen Saturation | 98% | 07/05/2016 7:37 AM | | | | | PST | | + + + + + | Inhaled Oxygen | - | - | | | Concentration | | | | + + + + + | Weight | 98.8 kg (217 lb 13 | 07/05/2016 7:37 AM | | | | oz) | PST | | + + + + + | Height | - | - | | + + + + + | Body Mass Index | 31.25 | 04/07/2016 2:00 PM | | | | | PDT | | + + + + + documented in this encounter Progress Notes Alta Garcia RN - 07/05/2016 7:30 AM PSTFormatting of this note might be different fr om the original. Patient in Fast Track for labs and CD34 count. Patient denies fever, cold/flu symptoms, N/V/D, edema, signs of bleeding, neuropathy and ra sh. Patient reports eating and drinking adequately. Patient states being nervous for Reece Line placement today. Patient pain rated 5/10 in jaw due to recent dental work. 24 gauge PIV placed in patient s Right Wrist, using an IV start kit. PIV with excellent blood return. Labs drawn and sent. PIV flushed with 10 mL NS without any problems. Sterile t ransparent dressing applied. Patient tolerated procedure well. Lab Results Component Value Date WBC 51.8 07/05/2016 HB 11.5 07/05/2016 HCT 34.5 07/05/2016 PLT 381 07/05/2016 MCV 93.5 07/05/2016 RDW 46.1 06/17/2016 Lab Results Component Value Date NA 136 07/05/2016 K 4.9 07/05/2016 CL 104 07/05/2016 BICARB 27 07/05/2016 BUN 6 07/05/2016 CR 0.7 07/05/2016 GLU 90 07/05/2016 CA 9.2 07/05/2016 ANIONGAP 8 06/17/2016 ANIONALBCOR 9 06/17/2016 Per lab work patient meets parameters for Zarxio today. Zarxio 960 mcg from floor stock injected subcutaneously to left arm per orders. No reaction noted. See MAR for details. Patient discharged from Fast Track prior to Metabolic labs resulting, due to timing of Hick man line placement. Patient instructed to check in at 9th Floor admitting for Reece line p lacement. documented in this e ncounter Plan of Treatment Not on filedocumented as of this encounter Procedures + +--------+ + + + | Procedure Name | Priori | Date/Time | Associated Diagnosis | Comments | | | ty | | | | + +--------+ + + + | PROCEDURE NOTE | Routin | 07/06/2016 | | Results for this | | | e | 9:47 AM | | procedure are in the | | | | PST | | results section. | + +--------+ + + + | BMP + MAG, POC CHM | Routin | 07/05/2016 | Nodular sclerosis | Results for this | | | e | 8:55 AM | Hodgkin lymphoma of | procedure are in the | | | | PST | lymph nodes of | results section. | | | | | multiple regions | | | | | | (HCC) | | + +--------+ + + + | NURSING | Routin | 07/05/2016 | Nodular sclerosis | | | COMMUNICATION #2 - | e | 8:54 AM | Hodgkin lymphoma of | | | BEACON | | PST | lymph nodes of | | | | | | multiple regions | | | | | | (HCC) | | + +--------+ + + + | TREATMENT PARAMETERS | Routin | 07/05/2016 | Nodular sclerosis | | | #1 - BEACON | e | 8:54 AM | Hodgkin lymphoma of | | | | | PST | lymph nodes of | | | | | | multiple regions | | | | | | (HCC) | | + +--------+ + + + | CBC+DIFF,POC | Routin | 07/05/2016 | Nodular sclerosis | Results for this | | | e | 8:43 AM | Hodgkin lymphoma of | procedure are in the | | | | PST | lymph nodes of | results section. | | | | | multiple regions | | | | | | (HCC) | | + +--------+ + + + | CD34 (STEM CELLS), | Routin | 07/05/2016 | Nodular sclerosis | Results for this | | BLOOD | e | 7:33 AM | Hodgkin lymphoma of | procedure are in the | | | | PST | lymph nodes of | results section. | | | | | multiple regions | | | | | | (HCC) | | + +--------+ + + + | LIVER SET | Routin | 07/05/2016 | Nodular sclerosis | Results for this | | (AST,ALT,BILI | e | 7:33 AM | Hodgkin lymphoma of | procedure are in the | | TOTAL,BILI | | PST | lymph nodes of | results section. | | DIRECT,ALK | | | multiple regions | | | PHOS,ALB,PROT TOTAL) | | | (HCC) | | + +--------+ + + + | PHOSPHORUS, PLASMA | Routin | 07/05/2016 | Nodular sclerosis | Results for this | | | e | 7:33 AM | Hodgkin lymphoma of | procedure are in the | | | | PST | lymph nodes of | results section. | | | | | multiple regions | | | | | | (HCC) | | + +--------+ + + + | URIC ACID, PLASMA | Routin | 07/05/2016 | Nodular sclerosis | Results for this | | | e | 7:33 AM | Hodgkin lymphoma of | procedure are in the | | | | PST | lymph nodes of | results section. | | | | | multiple regions | | | | | | (HCC) | | + +--------+ + + + documented in this encounter Results PROCEDURE NOTE (07/06/2016 9:47 AM PST)BMP + MAG, POC CHM (07/05/2016 8:55 AM PST) + + + + + + | Component | Value | Ref Range | Performed | Pathologist | | | | | At | Signature | + + + + + + | SODIUM, POC | 136 | 134 - 143 | [facility] - | | | | | mmol/L | [facility] | | | | | | [facility] | | | | | | OF CARE | | | | | | TESTS | | + + + + + + | POTASSIUM, | 4.9 | 3.4 - 5.0 | [facility] - [...] + + + + | CHLORIDE, | 104 | 97 - 108 mmol/L | [facility] - | | | POC | | | [facility] | | | | | | [facility] | | | | | | OF CARE | | | | | | TESTS | | + + + + + + | GLUCOSE, | 90 | 60 - 99 mg/dL | [facility] - | | | POC | | | [facility] | | | | | | [facility] | | | | | | OF CARE | | | | | | TESTS | | + + + + + + | CALCIUM | 9.2 | 8.6 - 10.2 | [facility] - | | | TOTAL, POC | | mg/dL | [facility] | | | | | | [facility] | | | | | | OF CARE | | | | | | TESTS | | + + + + + + | BUN, POC | 6 | 6 - 20 mg/dL | [facility] | | | | | | [facility] | | | | | | [facility] | | | | | | OF CARE | | | | | | TESTS | | + + + + + + | CREATININE, | 0.7 | 0.6 - 1.1 mg/dL | [facility] - | | | POC | | | [facility] | | | | | | [facility] | | | | | | OF CARE | | | | | | TESTS | | + + + + + + | LDH, POC | >800 (H) | 0 - 206 U/L | [facility] - | | | | | | [facility] | | | | | | [facility] | | | | | | OF CARE | | | | | | TESTS | | + + + + + + | MAGNESIUM, | 1.9 [...] + + + + | [facility] | [address] | [place], [place] | | | [facility] CARE | [address] | [address] | | | TESTS | | | | + + + + + CBC+DIFF,POC (07/05/2016 8:43 AM PST) + + + + + + | Component | Value | Ref Range | Performed | Pathologist | | | | | At | Signature | + + + + + + | WBC POC | 51.8 (H) | 4.4 - 11.0 | [facility] - | | | | | 10*3/uL | [facility] | | | | | | [facility] | | | | | | OF CARE | | | | | | TESTS | | + + + + + + | RBC POC | 3.69 (L) | 4.00 - 5.20 | [facility] - | | | | | 10*6/uL | [facility] | | | | | | [facility] | | | | | | OF CARE | | | | | | TESTS | | + + + + + + | HGB POC | 11.5 (L) | 12.0 - 16.0 | [facility] - | | | | | g/dL | [facility] | | | | | | [facility] POINT | | | | | | OF CARE | | | | | | TESTS | | + + + + + + | HCT POC | 34.5 (L) | 36.0 - 46.0 % | [facility] | | | | | | [facility] | | | | | | [facility] POINT | | | | | | OF CARE | | | | | | TESTS | | + + + + + + | MCV POC | 93.5 | 80.0 - 96.0 fL | [facility] | | | | | | [facility] | | | | | | [facility] | | | | | | OF CARE | | | | | | TESTS | | + + + + + + | MCH POC | 31.2 | 29.0 - 32.0 pg | [facility] [...] + + | RDW SD, POC | 55.6 (H) | 35.1 - 46.3 fL | [facility] | | | | | | [facility] | | | | | | [facility] | | | | | | OF CARE | | | | | | TESTS | | + + + + + + | PLT POC | 381 | 150 - 400 | [facility] - | | | | | 10*3/uL | [facility] | | | | | | [facility] | | | | | | OF CARE | | | | | | TESTS | | + + + + + + | MPV POC | 9.3 (L) | 9.7 - 12.3 fL | [facility] | | | | | | [facility] | | | | | | [facility] POINT | | | | | | OF CARE | | | | | | TESTS | | + + + + + + | NEUTROPHIL% | ---- | 50.0 - 70.0 % | [facility] - | | | POC | | | [facility] | | | | | | [facility]INT | | | | | | OF CARE | | | | | | TESTS | | + + + + + + | LYMPH% POC | ---- | 18 - 42 % | [facility] - | | | | | | [facility] | | | | | | [facility]INT | | | | | | OF CARE | | | | | | TESTS | | + + + + + + | MONO %, POC | 14.2 (H) | 3.5 - 9.0 % | [facility] | | | | | | [facility] | | | | | | [facility]INT | | | | | | OF CARE | | | | | | TESTS | | + + + + + + | EOS %, POC | 0.8 (L) | 1.0 - 3.0 % | [...] + + + + | NEUTROPHIL# | ---- | 1.8 - 7.7 | [facility] - | | | POC | | 10*3/uL | [facility] | | | | | | [facility], POINT | | | | | | OF CARE | | | | | | TESTS | | + + + + + + | LYMPH# POC | ---- | 1.0 - 4.8 | [facility] - | | | | | 10*3/uL | [facility] | | | | | | [facility] POINT | | | | | | OF CARE | | | | | | TESTS | | + + + + + + | MONO #, POC | 7.4 (H) | 0.1 - 0.9 | [facility] - | | | | | 10*3/uL | [facility] | | | | | | [facility] | | | | | | OF CARE | | | | | | TESTS | | + + + + + + | EOS #, POC | 0.4 | 0.0 - 0.5 | [facility] - [...] + + + + | CBC | Blast. NRBC. WBC Abn | | [facility] - | | | COMMENT, | Scat. Imm Gran. Lft | | [facility] | | | POC | Shift. | | [facility] | | | [...] [facility] | [address] | [place], [place] | | | [facility] | [address] | [address] | | | TESTS | | | | + + + + + URIC ACID, PLASMA (07/05/2016 7:33 AM PST) + +---------+ + + + | Component | Value | Ref Range | Performed | Pathologist | | | | | At | Signature | + +---------+ + + + | URIC ACID, | 6.9 (H) | 2.5 - 6.2 mg/dL | [facility] [...] | + + + + + | [facility] | [address] | [place] [address] | | | SERVICES, CORE | [address] | | | + + + + + PHOSPHORUS, PLASMA (07/05/2016 7:33 AM PST) + +-------+ + + + [...] | [facility] | [address] | [place] [address] | | | SERVICES, CORE | [address] | | | + + + + + LIVER SET (AST,ALT,BILI TOTAL,BILI DIRECT,ALK PHOS,ALB,PROT TOTAL) (07/05/2016 7:33 AM PST ) + +---------+ + + + [...] + + + | ALK PHOS | 206 (H) | 42 - 98 U/L | [facility] | | | | | | LABORATORY | | | | | | SERVICES, | | | | | | CORE | | + +---------+ + + + | AST(SGOT) | 46 (H) | <=41 U/L | [facility] | | | | | | LABORATORY | | | | | | SERVICES, | | | | | | CORE | | + +---------+ + + + | ALT (SGPT) | 27 | <=60 U/L | [facility] | | | | | | LABORATORY | | | | | | SERVICES, | | | | | | CORE | | + +---------+ + + + | TOTAL | 7.0 | 6.4 - 8.2 g/dL | [facility] [...] [facility] | [address] | [place] [address] | | | SERVICES, CORE | [address] | | | + + + + + CD34 (STEM CELLS), BLOOD (07/05/2016 7:33 AM PST) + +-------+ + + + | Component | Value | Ref Range | Performed | Pathologist | | | | | At | Signature | + +-------+ + + + | SPECIMEN | blood | | [facility] | | | TYPE | | | LABORATORY | | | | | | SERVICES, | | | | | | SPECIAL IMM | | | | | | + COAG | | + +-------+ + + + | CD34 | 0.099 | X10*6 / mL | [facility] | | | POSITIVE | | | LABORATORY | | | CELLS | | | SERVICES, | | | | | | SPECIAL IMM | | | | | | + COAG | | + +-------+ + + + | CD34 | 0.18 | % | [facility] | | | PERCENT | | | LABORATORY | | | | | | SERVICES, | | | | | | SPECIAL IMM | | | | | | + COAG | | + +-------+ + + + + + | Specimen | + + | Blood | + + + + + + + | Performing | Address | City/State/Zipcode | Phone Number | | Organization | | | | + + + + + | [facility] | [address] | [place] [address] | | | SERVICES, SPECIAL | [address] [...] | | + +--------+ +---------+------+ + | filgrastim-sndz (RAMONA) | Given | 07/05/20 | 960 mcg | | Left Arm | | injection 960 mcg 960 mcg | | 16 9:02 | | | | | (rounded from 989 mcg = 10 mcg/kg | | AM PST | | | | | | | | | | | | 98.9 kg Treatment plan recorded | | | | | | | weight), subcutaneous, ONCE, 1 | | | | | | | dose, 07/05/16 at 0900 | | | | | | + +--------+ +---------+------+ + +---+---+ | | | +---+---+ documented in this encounter"
--- OUTSIDE RECORDS SUMMARY | ~2019-01-06 | XMS | Encounter Summary ---
Demographics + + + | Address | [address] | | | [place] [address] | + + + | Home Phone [...] Team Providers + +------+ + | Care Logistics Clerk Name | Role | Phone | + [...] [address] | | | | | | [place], [place] | | | | | | [address] | | | | | | [phone] | | | +--------+ + + + [...]
--- OUTSIDE RECORDS SUMMARY | ~2019-01-06 | XMS | Encounter Summary ---
Demographics + + + | Address | [address] | | | [place] [address] | + + + | Home Phone | | + + + | Preferred Language | Unknown | + + + | Marital Status | | + + + | Mormonism Affiliation | NON | + + + [...] Team Providers + +------+ + | Care Interlocking Pavement Installer Name | Role | Phone | [...] | | 2017 | | [facility] | MD [address] | | | | | for [facility] Healing | [address] [place], | | | | | [address] | [place] [address] | | | | | Mailcode: [place] | [phone] | | | | | for Health and | | | | | | Healing, [address] | | | | | | [place], [place] | | | | | | [address] | | | | | | [phone] | | | +--------+--------+ + + + [...]
--- OUTSIDE RECORDS SUMMARY | ~2019-01-06 | XMS | Encounter Summary ---
Demographics + + + | Address | [address] | | | [place] [address] | + + + | Home Phone [...] Team Providers + +------+ + | Care Phd Intern Name | Role | Phone | [...] | | | | Malignancies at | [facility] | | | | | Joanne Herman | [place], [place] | | | | | [address] [facility] | [address] | | | | | [facility] | [phone] | | | | | Mailcode: [id number] | | | | | | Joanne Herman | | | | | | [place], [place] | | | | | | [address] | | | | | | [phone] | | | +--------+ + + + [...]
--- OUTSIDE RECORDS SUMMARY | ~2019-01-06 | XMS | Encounter Summary ---
Demographics + + + | Address | [address] | | | [place] [address] | + + + | Home Phone [...] Providers + +------+ + | Care Glass Cleaning Machine Tender Name | Role | Phone [...] Ma[facility]ol | | | | [facility] | [facility] | | | | | [address] | [place], [place] [facility] | | | | | [facility] | | | | | | Mailcode: [id number] [facility] | | | | | | [facility] | | | | | | [facility], | | | | | | [place] [address] | | | | | | [phone] | | | +--------+ + + + [...] DEPT OF | [address] | [place], [place] | | | CARDIOLOGY | [facility] | [address] | | + + + + + documented in this encounter Visit Diagnoses Not on filedocumented in this encounter"
--- OUTSIDE RECORDS SUMMARY | ~2019-01-06 | XMS | Encounter Summary ---
Demographics + + + | Address | [address] | | | [place] [address] | + + + | Home Phone | | + + + | Preferred Language | Unknown | + + + | Marital Status | | + + + | Cheondoism Affiliation | NON | + + + | Race | White | + + + | Ethnic Group | Not or | + + + Author + + + | Author | [facility] | + + + | Organization | [facility] | + + + | [...] + +------+ + | Care Manager Of Distribution Name | Role | Phone | + [...] [place] | | | | | | [facility] | | | | | | Mailcode: [id number] | | | | | | Joanne Herman | | | | | | [place], [place] | | | | | | [address] | | | | | | [phone] | | | +--------+ + + + [...]
--- OUTSIDE RECORDS SUMMARY | ~2019-01-06 | XMS | Encounter Summary ---
Demographics + + + | Address | [address] | | | [place] [address] | + + + | Home Phone [...] Team Providers + +------+ + | Care College Basketball Coach Name | Role | Phone | [...] | | | | Malignancies at | [facility] | | | | | Joanne Herman | [place], [place] | | | | | [address] [facility] | [address] | | | | | [facility] | [phone] | | | | | Mailcode: [id number] | | | | | | Joanne Herman | | | | | | [place], [place] | | | | | | [address] | | | | | | [phone] | | | +--------+ + + + [...]
--- OUTSIDE RECORDS SUMMARY | ~2019-01-06 | XMS | Encounter Summary ---
Demographics + + + | Address | [address] | | | [place] [address] | + + + | Home Phone [...] Team Providers + +------+ + | Care Farm Service Adviser Name | Role | Phone | [...] Hematology | Diagnoses | Quirino Moreno | [facility] | | | | Malignancy | Nodular | MD Ronak,PhD | [facility] [address] | | | | | sclerosis | [address] | [address] [place] | | | | | Hodgkin | [facility] | [facility] | | | | | lymphoma, | Rd | Mailcode: | | | | | lymph nodes | [place], [place] | [id number] | | | | | of multiple | [address] | [place] | | | | | sites | Phone: | [place] | | | | | | [phone] | [place], [place] | | | | | | Fax: | [address] | | | | | | [phone] | Phone: | | | | | | | [phone] | | | | | | | Fax: | | | | | | | [phone] | +--------+--------+ + + + + Encounter [...] | | Transfusion | | | | [facility] | | (platelets, PRBC) | | | | Mailcode: [id number] | | | | | | Joanne Herman | | | | | | [place], [place] | | | | | | [address] | | | | | | [phone] | | | +--------+ + + + [...] | | | | | | status ([facility]) | | + +--------+ + + + | PRODUCT - PLATELET | Routin | 08/20/2016 | 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 | | | | | status ([facility]) | | + +--------+ + [...] | | | | | | status ([facility]) | | + +--------+ + [...] + + + + | PRODUCT | [id number] | | [facility] | | | UNIT [...] + + + + | EXPIRATION | [id number] | | [facility] | | | DATE [...] + + + + | BLOOD | [id number] | | [facility] | | | PRODUCT [...] | + + + + + | [facility] | [address] | [place] [address] | | | ELISA | [address] [...] [facility] | [address] | [place], [place] | | | [facility] OF CARE | [facility] | [address] | | | TESTS | | | [...] + + + + | PRODUCT | [id number] | | [facility] | | | UNIT [...] + + + + | EXPIRATION | [id number] | | [facility] | | | DATE [...] + + + + | BLOOD | [id number] | | [facility] | | | PRODUCT [...] LABORATORY | [address] | [place] [address] | | | ELISA | [address] [...] 4.0 (L) | 4.4 - 11.0 | [facility] - | | | | | 10*3/uL [...] [facility] | [address] | [place], [place] | | | [facility] OF [facility] | [address] | [address] | | | TESTS | | | [...] + | [facility] - AIRPORT - | [address] | [place] [address] | | | [place] | | | | + + + [...] LABORATORY | [address] | [place] [address] | | | SERVICES, CORE | [address] [...] + + + + + | [facility] | [address] | [place] [address] | | | SERVICES, CORE | [address] [...]
--- OUTSIDE RECORDS SUMMARY | ~2019-01-06 | XMS | Encounter Summary ---
Demographics + + + | Address | [address] | | | [place] [address] | + + + | Home Phone | | + + + | Preferred Language | Unknown | + + + | Marital Status | | + + + | Sikh Affiliation | NON | + + + [...] Team Providers + +------+ + | Care Oncology Rep Specialist Name | Role | Phone | [...] | [facility] | | | | | [facility] | [place], [place] | | | | | [address] [facility] | [address] | | | | | [facility] | [phone] | | | | | Mailcode: [id number] | | | | | | [facility] | | | | | | [place], [place] | | | | | | [address] | | | | | | [phone] | | | +--------+ + + + [...]
--- OUTSIDE RECORDS SUMMARY | ~2019-01-06 | XMS | Encounter Summary ---
Demographics + + + | Address | [address] | | | [place] [address] | + + + | Home Phone | | + + + | Preferred Language | Unknown | + + + | Marital Status | | + + + | Taoist Affiliation | NON | + + + [...] Team Providers + +------+ + | Care Sap Bw Architect Name | Role | Phone | + +------+ + | Aashish Hilton MD | PCP | | + +------+ + Encounter Details +--------+ + + + + | Date | Type | Department | Care Team | Description | +--------+ + + + + | 07/30/ | Procedure | 6A Intra Op [facility] | | | | 2016 | Pass | [facility] | | | | | | Admitting Desk | | | | | | Located on the 9th | | | | | | floor [address] [facility] | | | | | | [facility] | | | | | | [place], [place] | | | | | | [address] | | | +--------+ + + + [...]
--- OUTSIDE RECORDS SUMMARY | ~2019-01-06 | XMS | Encounter Summary ---
Demographics + + + | Address | [address] | | | [place] [address] | + + + | Home Phone [...] Team Providers + +------+ + | Care Research Chef Name | Role | Phone | + +------+ + | Aashish Hilton MD | PCP | | + +------+ + Reason for Visit + + + | Reason | Comments | + + + | Lab Draw | PICC | + + + | Intravenous infusion | Soliris and Pentam | + + + | Follow-up visit | MORENA Zimmer | + + + | Dressing change | PICC | + + + Benefits Check (Routine) +--------+--------+ + + + + | Status | Reason | Specialty | Diagnoses / | Referred By | Referred To | | | | | Procedures | Contact | Contact | +--------+--------+ + + + + | Closed | | Hematology | Diagnoses | Quirino Moreno | [facility] | | | | Malignancy | Nodular | MD Ronak,PhD | [facility] [address] | | | | | sclerosis | [address] | Kody Aquino | | | | | Hodgkin | [place] | [address] | | | | | lymphoma, | Rd | Mailcode: | | | | | lymph nodes | [place], [place] | [id number] | | | | | of multiple | [address] | [place] | | | | | sites | Phone: | Virgil | | | | | | [phone] | [place], [place] | | | | | | Fax: | [address] | | | | | | [phone] | Phone: | | | | | | | [phone] | | | | | | | Fax: | | | | | | | [phone] | +--------+--------+ + + + + Encounter Details +--------+ + + + + | Date | Type | Department | Care Team | Description | +--------+ + + + + | 08/23/ | Clinical | Center for | | Lab Draw ([facility]); | | 2017 | Support | Hematologic | | Intravenous infusion | | | Staff | Malignancies at [facility] | | (Soliris and | | | | [address] | | Pentam); Follow-up | | | | [address] | | visit (Richard | | | | Mailcode: [id number] | | MORENA Osborne); | | | | Joanne Herman | | Dressing change | | | | [place], [place] | | ([facility]) | | | | [address] | | | | | | [phone] | | | +--------+ + + + [...] + + documented as of this encounter Patient Instructions Patient Instructions Keerthi Couch RN - 08/23/2016 1:13 PM [facility] pentamidine Pronunciation: natalya Mayes Brand: Cady, Pentam 300 What is pentamidine? Pentamidine is an antifungal medication that fights infections caused by fungus. Pentamidine is used to prevent and treat pneumonia caused by Pneumocystis jiroveci (carinii ). Pentamidine may also be used for purposes not listed in this medication guide. What should I avoid while using pentamidine? Follow your doctor's instructions about any restrictions on food, beverages, or activity. What are the possible side effects of pentamidine? Get emergency medical help if you have any of these signs of an allergic reaction: hives; d ifficult breathing; swelling of your face, lips, tongue, or throat. Call your doctor at once if you have: wheezing, choking, or other breathing problems after using this medication with a nebuli zer; a light-headed feeling, like you might pass out; fast or uneven heart rate; painful or difficult urination; confusion, hallucinations; pain, burning, irritation, or skin changes where the injection was given; worsening symptoms, or signs of a new infection (fever, cough, trouble breathing, night sweats); a blood cell disorder --pale skin, feeling light-headed or short of breath, easy bruisin g, unusual bleeding, purple or red pinpoint spots under your skin; pancreatitis --severe pain in your upper stomach spreading to your back, nausea and vomi ting; low blood sugar --headache, hunger, weakness, sweating, confusion, irritability, dizzine ss, or feeling jittery; or severe skin reaction --fever, sore throat, swelling in your face or tongue, burning in y our eyes, skin pain, followed by a red or purple skin rash that spreads (especially in the f iman or upper body) and causes blistering and peeling. Common side effects may include: loss of appetite; or unusual or unpleasant taste in the mouth. This is not a complete list of side effects and others may occur. Call your doctor for [facility] advice about side effects. You may report side effects to FDA at 9-502-KQM-8276. eculizumab Pronunciation: Brianna patterson mab Brand: Ramana What is the most important information I should know about eculizumab? You should not use this medicine if you have bacterial meningitis or if you have not been v accinated against meningitis. Using eculizumab can increase your risk of getting meningitis. You must be vaccinated against meningococcal infection at least 2 weeks before treatment wi th eculizumab. If you have been vaccinated in the past, you may need a booster dose. Seek emergency medical attention or call your doctor right away if you have symptoms of men ingitis: headache and fever with nausea or vomiting, skin rash, body aches, flu symptoms, co nfusion, sensitivity to light, stiffness in your neck or back. You will receive a card listing the symptoms of meningococcal infection, to carry with you at all times. During treatment with eculizumab and for at least 3 months after your last dos e, make sure any doctor who treats you knows that you are using this medicine. Do not stop using eculizumab without first talking to your doctor. Stopping or interrupting your treatment could cause sudden and serious effects on your red blood cells. What is eculizumab? Eculizumab is a monoclonal antibody. Eculizumab binds to proteins in the blood that can francesca chloe red blood cells in people with genetic conditions that affect the natural defenses of r ed blood cells. Eculizumab is used to prevent the breakdown of red blood cells in people with paroxysmal no cturnal hemoglobinuria (PNH). Eculizumab is also used to treat a rare chronic blood disease called atypical hemolytic ure tre syndrome (aHUS) Eculizumab is available only under a special program called [employer]. You must be ramesh tered in the program and sign documents stating that you understand the risks and benefits o f taking this medication. Eculizumab may also be used for purposes not listed in this medication guide. How is eculizumab given? In adults, eculizumab is usually given once a week for 5 weeks, and then once every 2 weeks thereafter. This schedule may be different for a child or teenager. Follow all directions o n your prescription label. Do not use this medicine in larger or smaller amounts or for long er than recommended. If a child is using this medicine, tell your doctor if the child has any changes in weight. Eculizumab doses are based on age and weight in children, and any changes may affect your c hild's dose. Eculizumab is injected into a vein through an IV. You should be watched closely for at least 1 hour after each infusion, to make sure you do not have an allergic reaction to the medication. Eculizumab must be given slowly, and the infusion can take at least 35 minutes to complete in adults, or up to 4 hours in children. You may have an infusion reaction when the medicine is injected into the vein. If this happ ens, you may need to slow down the speed of your IV infusion, but the infusion should not ta ke more than 2 hours to complete in an adult, or 4 hours in a child. A caregiver or family maciej hathaway should then watch you for at least 1 hour after your injection to make sure you have n o further side effects. During treatment with eculizumab and for at least 3 months after your last dose, make sure any doctor who treats you knows that you are using this medicine. Store unopened vials in their original carton in the refrigerator. Protect from light and d o not freeze. Throw away any unused vials after the expiration date on the label has passed. Each single-use vial (bottle) of this medicine is for one use only. Throw away after one us e, even if there is still some medicine left in it after injecting your dose. Use a disposable needle and syringe only once. Follow any state or local laws about throwin g away used needles and syringes. Use a puncture-proof "sharps" disposal container (ask your pharmacist where to get one and how to throw it away). Keep this container out of the reach of children and pets. What are the possible side effects of eculizumab? Get emergency medical help if you have signs of an allergic reaction: hives; chest pain, di fficult breathing; feeling like you might pass out; swelling of your face, lips, tongue, or throat. Signs of allergic reaction may occur while you are receiving your eculizumab injecti on. Seek emergency medical attention or call your doctor right away if you notice any of these symptoms of meningitis: fever and a headache or skin rash; headache with nausea and vomiting; high fever (103 degrees F or higher), body aches, flu symptoms; confusion, increased sensitivity to light; or stiffness in your neck or back. With your medication you will receive a Patient Safety Card listing the symptoms of meningo coccal infection. Carry this card with you at all times during treatment and for [address] your last dose of eculizumab. Call your doctor at once if you have any of these side effects during or after your treatme nt with eculizumab: fever; pain or burning when you urinate; kidney problems --little or no urination, painful or difficult urination, swelling in yo ur feet or ankles, feeling tired or short of breath; signs of a blood cell disorder --pale skin, easy bruising, unusual bleeding, confusion, chest pain, trouble breathing, seizure (convulsions); or signs of a blood clot --sudden numbness or weakness, problems with speech or balance, ra pid breathing, coughing up blood, pain or swelling in your arms or legs. Common side effects may include: headache; increased blood pressure (severe headache, blurred vision, pounding in your neck or ears , nosebleed, anxiety); nausea, vomiting, diarrhea, stomach pain; swelling in your hands or feet; back pain; or cold symptoms such as stuffy nose, runny nose, sinus pain, sore throat. What other drugs will affect eculizumab? Other drugs may interact with eculizumab, including prescription and dnyx-uhe-yfpbaiy medic ross, vitamins, and herbal products. Tell each of your health care providers about all medic ross you use now and any medicine you start or stop using. documented in this encounter Progress Notes Keerthi Couch RN - 08/23/2016 1:10 PM PSTPOST TRANSPLANT NURSING NOTE Provider: Dr. Moreno Allergies: Meggan is allergic to promethazine; sulfa (sulfonamide antibiotics); sulfacetamid e sodium; and compazine [prochlorperazine]. Narrative: Patient ambulatory to infusion room. Meggan Otero is a 20 [address] Moreno with a h/o Hodgkin's Lymphoma and HUS. She is s/p Autologous PBSCT with BEAM conditioning, day 0: 1 2/7/16. Patient is in clinic today for lab work, Soliris, Pentam and supportive care as need ed. Nursing Assessment: Fever: no; Diarrhea: no; SOB / Cough: no; Nausea / Vomiting: yes - Occasional nausea, valeria nt takes Ativan as needed. She denies any emesis; Anemia / Fatigue: yes - Still fatigue over baseline but patient reports that her energy level has slightly improved; Constipation: no; Edema: no; S/S Bleeding: no; Mucositis: no; Urinary: no; Neuropathy: no; Rash: no; Patient reports that overall her appetite is getting better and that she is eating regular meals now . She is drinking 2 L of fluid a day. Patient denies any further complaints or concerns at t his time. Patient will be seen in [facility] today by MORENA Kirkpatrick. Vascular Access: Power PICC accessed per protocol. Good blood return noted. Appropriate waste discarded. Labs drawn and sent. PICC pulse flushed with 20 mL NS. Power PICC intact to right upper extremity without erythema or induration. Dressing remove d, skin intact. No s/s exit site infection. 3.5 cm line exposed. Using a PICC Dressing Shalini nge kit and sterile technique, site cleansed with Chloraprep. Skin prep applied prior to dr rojas application. Biopatch applied with SorbaView dressing. Positive pressure valves shalini nged to each port. All lumens pulse flushed with 10 mL NS. Patient tolerated procedure with out difficulty. Per Orders: Magnesium Sulfate 4 gm in 100 mL NS infused over 2 hours per supportive care orders for a m agnesium level of 1.6. For infusion details, see MAR. Per Infusion Plan, Pentamidine due today. Per patient she had some nausea with her last inf usion. MORENA Kirkpatrick notified and per her order patient was given Ativan 0.5 mg PO prio r to administration. Pentamidine 300 mg given over 2 hours without complication. Per Supportive Plan, Soliris 1,200 mg given over 35 minutes without complication. Patient h as been receiving this for 2 years with no previous reactions or issues so no post-observati on indicated. Line flushed per protocol, see Flowsheet for details. Patient was reminded to call clinic w ith temp > 100.4, chills, s/s of bleeding, rash or uncontrolled N/V/D/C. Patient d/c d amb ulatory with her mother and in stable condition. Next Appointment in [facility] is on 08/26/16 at 8:10 am with [facility]. Blanca Couch RN documented in this encoun ter Plan of Treatment Not on filedocumented as of this encounter Procedures + +--------+ + + + | Procedure Name | Priori | Date/Time | Associated Diagnosis | Comments | | | ty | | | | + +--------+ + + + | BMP + MAG, POC [facility] | Routin | 08/23/2016 | Autologous bone | Results for this | | | e | 1:35 PM | marrow | procedure are in [...] + + | CBC+DIFF,POC | Routin | 08/23/2016 | Autologous bone | Results for this | | | e | 1:33 PM | marrow | procedure are in [...] + + | NURSING | Routin | 08/23/2016 | HUS (hemolytic | | | COMMUNICATION #3 - | e | 1:32 PM | uremic syndrome), | | | [place]ON | | PST | atypical (HCC) | | | | | | Nodular sclerosis | | | | | | Hodgkin lymphoma of | | | | | | lymph nodes of | | | | | | multiple regions | | | | | | (HCC) | | + +--------+ + + + | LIVER SET | Routin | 08/23/2016 | Autologous bone | Results for this | | (AST,ALT,BILI | e | 1:05 PM | marrow | procedure are in [...] + | COMPLEMENT ACTIVITY | Routin | 08/23/2016 | HUS (hemolytic | Results for this | | ENZYME IMMUNOASSAY, | e | 1:05 PM | uremic syndrome), | procedure are in the | | TOTAL | | PST | atypical (HCC) | results section. | | | | | Nodular sclerosis | | | | | | Hodgkin lymphoma of | | | | | | lymph nodes of | | | | | | multiple regions | | | | | | (HCC) | | + +--------+ + + + | PHOSPHORUS, PLASMA | Routin | 08/23/2016 | Autologous bone | Results for this | | | e | 1:05 PM | marrow | procedure are in [...] | LDH TOTAL, PLASMA | Urgent | 08/23/2016 | Nodular sclerosis | Results for this | | | | 1:05 PM | Hodgkin lymphoma of | procedure are in the | | | | PST | lymph nodes of | results section. | | | | | multiple regions | | | | | | (HCC) HUS | | | | | | (hemolytic uremic | | | | | | syndrome), atypical | | | | | | (HCC) Autologous | | | | | | bone marrow | | | | | | transplantation | | | | | | status (HCC) | | + +--------+ + + + | TREATMENT PARAMETERS | Routin | 08/23/2016 | Nodular sclerosis | | | #2 - BE[place]ON | e | 1:03 PM | Hodgkin lymphoma of | | | | | PST | lymph nodes of | | | | | | multiple regions | | | | | | (HCC) | | + +--------+ + + + | TREATMENT PARAMETERS | Routin | 08/23/2016 | Nodular sclerosis | | | #2 - [place] | e | 1:03 PM | Hodgkin lymphoma of | | | | | PST | lymph nodes of | | | | | | multiple regions | | | | | | (HCC) | | + +--------+ + + + | TREATMENT PARAMETERS | Routin | 08/23/2016 | Nodular sclerosis | | | #2 - [place] | e | 1:03 PM | Hodgkin lymphoma of | | | | | PST | lymph nodes of | | | | | | multiple regions | | | | | | (HCC) | | + +--------+ + + + | TREATMENT PARAMETERS | Routin | 08/23/2016 | Nodular sclerosis | | | #2 - [place] | e | 1:03 PM | Hodgkin lymphoma of | | | | | PST | lymph nodes of | | | | | | multiple regions | | | | | | (HCC) | | + +--------+ + + + | TREATMENT PARAMETERS | Routin | 08/23/2016 | Nodular sclerosis | | | #2 - [place] | e | 1:03 PM | Hodgkin lymphoma of | | | | | PST | lymph nodes of | | | | | | multiple regions | | | | | | (HCC) | | + +--------+ + + + | NURSING | Routin | 08/23/2016 | Nodular sclerosis | | | COMMUNICATION #3 - | e | 1:03 PM | Hodgkin lymphoma of | | | BEACON | | PST | lymph nodes of | | | | | | multiple regions | | | | | | (HCC) | | + +--------+ + + + | NURSING | Routin | 08/23/2016 | Nodular sclerosis | | | COMMUNICATION #2 - | e | 1:03 PM | Hodgkin lymphoma of | | | BE[place]ON | | PST | lymph nodes of | | | | | | multiple regions | | | | | | (HCC) | | + +--------+ + + + | NURSING | Routin | 08/23/2016 | Nodular sclerosis | | | COMMUNICATION #1 - | e | 1:03 PM | Hodgkin lymphoma of | | | [place]ON | | PST | lymph nodes of | | | | | | multiple regions | | | | | | (HCC) | | + +--------+ + + + | TREATMENT PARAMETERS | Routin | 08/23/2016 | Nodular sclerosis | | | #1 - [place] | e | 1:03 PM | Hodgkin lymphoma of | | | | | PST | lymph nodes of | | | | | | multiple regions | | | | | | (HCC) | | + +--------+ + + + | TREATMENT PARAMETERS | Routin | 08/23/2016 | Nodular sclerosis | | | #1 - [place] | e | 1:03 PM | Hodgkin lymphoma of | | | | | PST | lymph nodes of | | | | | | multiple regions | | | | | | (HCC) | | + +--------+ + + + documented in this encounter Results BMP + MAG, POC [...] | | | POC | | | MAGUI | | | [...] [facility] | [address] | [place], [place] | | | MERRY SHAH OF CARE | [facility] | [address] | | | TESTS | | | | + + + + + CBC+DIFF,POC (08/23/2016 1:33 PM PST) + + + [...] - | | | | | | OLIVERIOQUAM | | | | | | ALYSSA [...] + | [facility] | [address] | [place], [place] | | | ALYSSA POINT OF CARE | [address] | [address] | | | TESTS | | | | + + + + + LDH TOTAL, PLASMA (08/23/2016 1:05 PM PST) [...] + | [facility] | [address] | [place] [address] | | | SERVICES, CORE | [address] [...] | + + + + + | [facility] | [address] | [place] [address] | | | SERVICES, CORE | PARK [...] | + + + + + | [facility] | [address] | [place] [address] | | | SERVICES, CORE | [address] | | | + + + + + COMPLEMENT ACTIVITY ENZYME IMMUNOASSAY, TOTAL (08/23/2016 1:05 PM PST) + + + + + + | Component | Value | Ref Range | Performed | Pathologist | | | | | At | Signature | + + + + + + | COMPLEMENT | 31 (L)Comment: If low | 60 - 144 [...] | | | | | | Cory, [facility] [place] [address] | | | | | | [phone] 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) | + + | Autologous bone marrow [...] (SOLIRIS) 1,200 mg | New Bag | 08/23/19 | 1,200 mg | 411.43 | | | in NaCl 0.9 % IV 1,200 mg, | | 17 4:15 | | mL/hr | | | intravenous, Administer over 35 | | PM PST | | | | | Minutes, ONCE, 1 dose, 08/23/16 | | | | | | | at 1345, HIGH RISK | | | | | | | MEDICATION, | | | | | | + +---------+ + +---------+------+ +---+---+ | | | +---+---+ + +-------+ +--------+---+---+ | LORazepam (ATIVAN) tablet 0.5 | Given | 08/23/19 | 0.5 mg | | | | mg 0.5 mg, oral, ONCE, 1 dose, | | 17 1:40 | | | | | 08/23/16 at 1345 | | PM PST | | | | + +-------+ +--------+---+---+ +---+---+ | | | +---+---+ + +---------+ +-----+---+---+ | magnesium sulfate in water IV | New Bag | 08/23/19 | 4 g | | | | (RTU) 4 g 4 g, intravenous, | | 17 2:54 | | | | | ONCE, 1 dose, 08/23/16 at 1400 | | PM PST | | | | + +---------+ +-----+---+---+ +---+---+ | | | +---+---+ + +---------+ +--------+---+---+ | pentamidine (PENTAM) IV 300 mg | New Bag | 08/23/19 | 300 mg | | | | 300 mg, intravenous, ONCE, 1 | | 17 1:50 | | | | | dose, 08/23/16 at 1345 | | PM PST | | | | + +---------+ +--------+---+---+ +---+---+ | | | +---+---+ documented in this encounter
--- OUTSIDE RECORDS SUMMARY | ~2019-01-06 | XMS | Encounter Summary ---
Demographics + + + | Address | [address] | | | [place] [address] | + + + | Home Phone [...] Team Providers + +------+ + | Care Waterworks Pump Station Operator Name | Role | Phone | [...] | | | | | | Road [place], [place] | | | | | | [address] | | | +--------+ + + + [...] | | | | | | Institution: [facility] | | | | | | [facility], | | | | | | [place], | | | | | | [id number] Gaviria | | | | | | Accession Number: | | | | | | [id number] | | | | | | Collection [...] | | | | | | Number: [id number] | | | | | | Collection [...] biopsy | | | | | | ([id number], | | | | | | 04/29/2015): - | | | | | | Nodular sclerosis, | | | | | | classical Hodgkin's | | | | | | lymphoma (see | | | | | | Comment) B: Left | | | | | | cervical lymph node, | | | | | | biopsy ([id number], | | | | | | 03/16/2016): [...] | | | | | | Torri Gant | | | | | | M.D./Hematopathologist [...] | + + + + + | [facility] | [address] | [place] [address] | | | PATHOLOGY | [address] | | | + + + + + documented in this encounter Visit Diagnoses Not on filedocumented in this encounter"
--- OUTSIDE RECORDS SUMMARY | ~2019-01-06 | XMS | Encounter Summary ---
Demographics + + + | Address | [address] | | | [place] [address] | + + + | Home Phone [...] Team Providers + +------+ + | Care Levi Maker Name | Role | Phone | [...] Soliripolly | MD Jim | [address] | | | | | | [address] | [address] | | | | | | Ave | [place], [place] | | | | | | [place], [place] | [address] | | | | | | [address] | Phone: | | | | | | Phone: | [phone] | | | | | | [phone] | Fax: | | | | | | Fax: | [phone] | | | | | | [phone] | | +--------+--------+ + + + + [...] [facility] | [facility] [place], | atypical (HCC) | | | | [address] | [place] [address] | (Primary Dx) | | | | Mailcode: Center | [phone] | | | | | [facility] | | | | | | Healing, [address] | | | | | | [place], [place] | | | | | | [address] | | | | | | [phone] | | | +--------+---------+ + + + [...] Will see if can set up in [place] as this is closer to her home [...] and she completed therapy. Has moved to [place] - relapsed from her Hodgkin' s disease [...] 16 and oxygen saturation is 100%. 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 HPI: Mrs Strong was an otherwise healthy 20 y/o female who developed flank pain in 2014 promptin g her to present to the emergency department in [facility] where she was living with h er [...] Hodgkins. She tra nsitioned her care to [facility] and is following with Dr. Moreno from [facility], and is planning for salv age with GDP followed by autoBMT. Since her ICU stay she has slowly been increasing her activity. She is still using a wheel chair at times. Home Medications: Lovenox BID Lexaprom 10mg Solaris ALLERGIES: Promethazine Sulfacetamide sodium SOCIAL: [place] Nonsmoker. Nondrinker. PHYSICAL EXAM: Vitals reviewed. [...] LMWH and start Apixiban. MARYJANE SEQUEIRA MD [facility] [address] [facility] Mailcode: [id number] [place], [place] [id number] [facility] [place] documented in this encounter Plan of Treatment [...]
--- OUTSIDE RECORDS SUMMARY | ~2019-01-06 | XMS | Encounter Summary ---
Demographics + + + | Address | [address] | | | [place] [address] | + + + | Home Phone [...] Team Providers + +------+ + | Care Ultrasound Technologist Name | Role | Phone | + +------+ + | Aashish iHlton MD | PCP | | + +------+ [...] | | | | | Ave | [place], [place] | | | | | | [place], [place] | [address] | | | | | | [address] | Phone: | | | | | | Phone: | [phone] | | | | | | [phone] | Fax: | | | | | | Fax: | [phone] | | | | | | [phone] | | +--------+--------+ + + + + [...] | line teaching) | | | | [facility] | | | | | | Mailcode: [id number] | | | | | | [address]anne [address] | | | | | | [place], [place] | | | | | | [address] | | | | | | [phone] | | | +--------+ + + + [...] mL of 10 unit/mL Heparin daily per [facility] protocols and provided them w ith the [...] - 06/30/2016 11:40 AM PSTAttempted venipuncture in [facility] unsuccessfully. documented in this enco unter Plan [...] MARQUAM | [address] | [place], [place] | | | [facility] | [address] | [address] | | | TESTS | | | [...] MAGUI | [address] | [place], [place] | | | ALYSSA POINT OF CARE | [address] | [address] | | | TESTS | | | [...] | weeks 850 - | | | 96422 6-7 | | | weeks 4000 - | | | 013167 7-12 | | | weeks 70057 - | | | 864065 12-16 | | | weeks 99140 - | | | 502390 16-29 | | | weeks 1400 - 00370 | | | 29-41 | | | weeks 940 - | | | 72791 | | + + + + + + + + | Performing | Address | City/State/Zipcode | Phone Number | | Organization | | | | + + + + + | [facility] | [address] | [place] [address] | | | SERVICES, CORE | PARK [...] modified from | [facility] | | original partner's approved specifications. 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
--- OUTSIDE RECORDS SUMMARY | ~2019-01-06 | XMS | Encounter Summary ---
Demographics + + + | Address | [address] | | | [place] [address] | + + + | Home Phone [...] Team Providers + +------+ + | Care Brood Station Manager Name | Role | Phone | + +------+ + | No Pcp Per Patient | PCP | Unavailable | + +------+ + Reason for Visit +--------+ + | Reason | Comments | +--------+ + | Other | Soliris administered at [facility]? | +--------+ + Encounter Details +--------+ + + + + | Date | Type | Department | Care Team | Description | +--------+ + + + + | 04/01/ | Telephone | Center for | Quirino Moreno I, | Other (Soliris | | 2016 | | Hematologic | ,PhD [address] | administered at | | | | Malignancies at | [address] | [facility] | | | | [facility] | [place], [place] | | | | | [address] | [address] | | | | | [facility] | [phone] | | | | | Mailcode: [id number] | | | | | | [address] | | | | | | [place], [place] | | | | | | [address] | | | | | | [phone] | | | +--------+ + + + [...]
--- OUTSIDE RECORDS SUMMARY | ~2019-01-06 | XMS | Encounter Summary ---
Demographics + + + | Address | [address] | | | [place] [address] | + + + | Home Phone [...] Team Providers + +------+ + | Care Laboratory Worker Name | Role | Phone | + +------+ + | Aashish Hilton MD | PCP | | + +------+ + Encounter Details +--------+ + + + + | Date | Type | Department | Care Team | Description | +--------+ + + + + | 07/13/ | Document-Sc | UNKNOWN DEPARTMENT | Unknown . | | | 2016 | ann | [address] [facility] | | | | | | [facility] | | | | | | [place], [place] | | | | | | [address] | | | +--------+ + + + [...]
--- OUTSIDE RECORDS SUMMARY | ~2019-01-06 | XMS | Encounter Summary ---
Demographics + + + | Address | [address] | | | [place] [address] | + + + | Home Phone [...] Team Providers + +------+ + | Care Ham Pumper Name | Role | Phone | + +------+ + PCP | Unavailable | + +------+ + Encounter Details +--------+ + + + + | Date | Type | Department | Care Team | Description | +--------+ + + + + | 03/22/ | Rod Buster | Center for | Quirino Moreno I, | | | 2016 | | Hematologic | ,PhD [address] | | | | | Malignancies at | [facility] | | | | | Joanne Herman | [place], [place] | | | | | [address] | [address] | | | | | [facility] | [phone] | | | | | Mailcode: UHN73A | | | | | | [facility] | | | | | | [place], [place] | | | | | | [address] | | | | | | [phone] | | | +--------+ + + + [...]
--- OUTSIDE RECORDS SUMMARY | ~2019-01-06 | XMS | Encounter Summary ---
Demographics + + + | Address | [address] | | | [place] [address] | + + + | Home Phone | | + + + | Preferred Language | Unknown | + + + | Marital Status | | + + + | Sikhism Affiliation | NON | + + + [...] Team Providers + +------+ + | Care Art Instructor Name | Role | Phone | [...] [address] | | | | | [facility] Mailcode: | [address] | | | | | [address] [place], [place] | [place], [place] | | | | | [address] | [address] | | | | | [phone] | [phone] | | | | | | | [...]
--- OUTSIDE RECORDS SUMMARY | ~2019-01-06 | XMS | Encounter Summary ---
Demographics + + + | Address | [address] | | | [place] [address] | + + + | Home Phone [...] Team Providers + +------+ + | Care Paste Mixer Name | Role | Phone | + [...] | | | Malignancies at | [facility] | | | | | [facility] | [place], [place] | | | | | [address] [facility] | [address] | | | | | [facility] | [phone] | | | | | Mailcode: UHN73A | | | | | | [facility] | | | | | | [place], [place] | | | | | | [address] | | | | | | [phone] | | | +--------+ + + + [...]
--- OUTSIDE RECORDS SUMMARY | ~2019-01-06 | XMS | Encounter Summary ---
Demographics + + + | Address | [address] | | | [place] [address] | + + + | Home Phone [...] Team Providers + +------+ + | Care Sqe Name | Role | Phone | + +------+ + | Aashish Hilton MD | PCP | | + +------+ + Reason for Visit + + + | Reason | Comments | + + + | Lab Draw | PICC | + + + | Intravenous infusion | NS, Magnesium | + + + | Transfusion | Platelets | + + + | Injection | zarxio | + + + | Medication | potassium | | Administration | | + + + Intake Referral [...] | | Ramana | MD Jim | [address] | | | | | | [address] | [address] | | | | | | Ave | [place], [place] | | | | | | [place], [place] | [address] | | | | | | [address] | Phone: | | | | | | Phone: | [phone] | | | | | | [phone] | Fax: | | | | | | Fax: | [phone] | | | | | | [phone] | | +--------+--------+ + + + + Encounter Details +--------+ + + + + | Date | Type | Department | Care Team | Description | +--------+ + + + + | 08/13/ | Clinical | Center for | | Lab Draw (PICC); | | 2016 | Support | Hematologic | | Intravenous infusion | | | Staff | Malignancies at [facility] | | (NS, Magnesium); | | | | [address] | | Transfusion | | | | [facility] [address] | | (Platelets); | | | | Mailcode: [id number] | | Injection (zarxio); | | | | [address] | | Medication | | | | [place], [place] | | Administration | | | | [address] | | (potassium) | | | | [phone] | | | +--------+ + + + [...] + + + | Blood Pressure | 147/102 | 08/13/2016 3:30 PM | | | | | PST | | + + + + + | Pulse | 98 | 08/13/2016 3:30 PM | | | | | PST | | + + + + + | Temperature | 36.8 C (98.2 F) | 08/13/2016 3:30 PM | | | | | PST | | + + + + + | Respiratory Rate | 16 | 08/13/2016 3:30 PM | | | | | PST | | + + + + + | Oxygen Saturation | 100% | 08/13/2016 12:50 PM | | | | | PST | | + + + + + | Inhaled Oxygen | - | - | | | Concentration | | | | + + + + + | Weight | 96.3 kg (212 lb 4.9 | 08/13/2016 12:50 PM | | | | oz) | PST | | + + + + + | Height | - | - | | + + + + + | Body Mass Index | 30.46 | 08/11/2016 1:57 AM | | | | | PST | | + + + + + documented in this encounter Progress Notes Yahaira Mazariegos RN - 08/13/2016 12:40 PM PST POST TRANSPLANT NURSING NOTE Name: Meggan Otero Date: 08/13/2016 Provider: Dr. Quirino Moreno 0: 07/21/2016 Donor: Auto Conditioning: BEAM Allergies: Meggan is allergic to promethazine; sulfa (sulfonamide antibiotics); sulfacetamid e sodium; and compazine [prochlorperazine]. Past illnesses: Meggan has a past medical history of Anxiety; C. 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 Narrative: Patient ambulated to the infusion room. Patient is here today for lab draw with supportive care and provider visit with Coreen CASTELLANOS Nursing Assessment: Pain: none Fever or chills: none Fatigue or sleep disturbance: feeling some fatigue Dizziness: Occasional dizziness when standing up Neuropathy: none Mucositis: none Dyspnea, cough: none Signs of bleeding: none Nausea, vomiting or loss of appetite: has some intermittent nausea without emesis. Takes p rn medications that work well Fluid intake: 2L Diarrhea or constipation: none Edema: none Rash: none Vascular Access: Power PICC accessed per protocol. Good blood return noted. Appropriate w aste discarded. Labs drawn and sent. Power PICC pulse flushed with 20 mL NS. Treatment Provided: 1L NS given over 2 hours per infusion plan for elevated creatinine, Coreen Grissom aware of BP Magnesium Sulfate 4 gm in 100 mL NS infused over 2 hours per supportive care orders for a m agnesium level of 1.5. For infusion details, see MAR. Potassium chloride (KLOR-CON) packet 40 mEq (ordered by Coreen CASTELLANOS, patient has a di fficult time with pills) mixed with cranberry juice per supportive care orders for a potassi um level of 3.5. For details, see MAR. Zarxio 480 mcg from floor stock injected subcutaneously to right arm per orders. No reactio n noted. See MAR for details. Lab Results Component Value Date PLT 16 08/13/2016 Orders to transfuse platelet product for a [...] Lines & Tr ansfusions doc flowsheet. Patient was reminded to call clinic with temp > 100.4, chills, s/s of bleeding or uncontrol led N/V/D/C. Patient verbalizes understanding. Patient was instructed to check out at the ont desk prior to leaving the clinic. Patient d/c d ambulatory with family. Next Appointme nt in [facility] is on 08/17/16 at 1:15 pm with JASMIN Cat. Yahaira Mazariegos RN documented in thi s encounter Plan of Treatment Not on filedocumented as of this encounter Procedures + +--------+ + + + | Procedure Name | Priori | Date/Time | Associated Diagnosis | Comments | | | ty | | | | + +--------+ + + + | PRODUCT - PLATELET | Routin | 08/13/2016 | Nodular sclerosis | Results for this | | PHERESIS | e | 1:09 PM | Hodgkin lymphoma of | procedure are in the | | LEUKOREDUCED | | PST | lymph nodes of | results section. | | | | | multiple regions | | | | | | (HCC) | | + +--------+ + + + | BMP + MAG, POC CHM | Routin | 08/13/2016 | Nodular sclerosis | Results for this | | | e | 1:01 PM | Hodgkin lymphoma of | procedure [...] + + | CBC+DIFF,POC | Routin | 08/13/2016 | Nodular sclerosis | Results for this | | | e | 1:01 PM | Hodgkin lymphoma of | procedure [...] + | LIVER SET | Routin | 08/13/2016 | Nodular sclerosis | Results for this | | (AST,ALT,BILI | e | 12:41 PM | Hodgkin lymphoma of | procedure [...] + | PHOSPHORUS, PLASMA | Routin | 08/13/2016 | Nodular sclerosis | Results for this | | | e | 12:41 PM | Hodgkin lymphoma of | procedure [...] + + | HAPTOGLOBIN | Routin | 08/13/2016 | Nodular sclerosis | Results for this | | | e | 12:41 PM | Hodgkin lymphoma of | procedure [...] + | TREATMENT PARAMETERS | Routin | 08/13/2016 | Nodular sclerosis | | | #2 - BEACON | e | 12:37 PM | Hodgkin lymphoma of | | | | | PST | lymph nodes of | | | | | | multiple regions | | | | | | (HCC) | | + +--------+ + + + | TREATMENT PARAMETERS | Routin | 08/13/2016 | Nodular sclerosis | | | #2 - BEACON | e | 12:37 PM | Hodgkin lymphoma of | | | | | PST | lymph nodes of | | | | | | multiple regions | | | | | | (HCC) | | + +--------+ + + + | TREATMENT PARAMETERS | Routin | 08/13/2016 | Nodular sclerosis | | | #2 - BEACON | e | 12:37 PM | Hodgkin lymphoma of | | | | | PST | lymph nodes of | | | | | | multiple regions | | | | | | (HCC) | | + +--------+ + + + | TREATMENT PARAMETERS | Routin | 08/13/2016 | Nodular sclerosis | | | #2 - BEACON | e | 12:37 PM | Hodgkin lymphoma of | | | | | PST | lymph nodes of | | | | | | multiple regions | | | | | | (HCC) | | + +--------+ + + + | TREATMENT PARAMETERS | Routin | 08/13/2016 | Nodular sclerosis | | | #2 - BEACON | e | 12:37 PM | Hodgkin lymphoma of | | | | | PST | lymph nodes of | | | | | | multiple regions | | | | | | (HCC) | | + +--------+ + + + | NURSING | Routin | 08/13/2016 | Nodular sclerosis | | | COMMUNICATION #3 - | e | 12:37 PM | Hodgkin lymphoma of | | | BEACON | | PST | lymph nodes of | | | | | | multiple regions | | | | | | (HCC) | | + +--------+ + + + | NURSING | Routin | 08/13/2016 | Nodular sclerosis | | | COMMUNICATION #2 - | e | 12:37 PM | Hodgkin lymphoma of | | | BEACON | | PST | lymph nodes of | | | | | | multiple regions | | | | | | (HCC) | | + +--------+ + + + | NURSING | Routin | 08/13/2016 | Nodular sclerosis | | | COMMUNICATION #1 - | e | 12:37 PM | Hodgkin lymphoma of | | | BEACON | | PST | lymph nodes of | | | | | | multiple regions | | | | | | (HCC) | | + +--------+ + + + | TREATMENT PARAMETERS | Routin | 08/13/2016 | Nodular sclerosis | | | #1 - BEACON | e | 12:37 PM | Hodgkin lymphoma of | | | | | PST | lymph nodes of | | | | | | multiple regions | | | | | | (HCC) | | + +--------+ + + + | TREATMENT PARAMETERS | Routin | 08/13/2016 | Nodular sclerosis | | | #1 - BEACON | e | 12:37 PM | Hodgkin lymphoma of | | | | | PST | lymph nodes of | | | | | | multiple regions | | | | | | (HCC) | | + +--------+ + + + documented in this encounter Results PRODUCT - PLATELET PHERESIS LEUKOREDUCED (08/13/2016 1:09 PM PST) + + + + + [...] + + + + | PRODUCT | [id number] | | [facility] | | | UNIT [...] + + + + | EXPIRATION | [id number] | | [facility] | | | DATE [...] + + + + | BLOOD | [id number] | | [facility] | | | PRODUCT [...] | + + + + + | [facility] | [address] | [place] [address] | | | SERVICES, | [address] | | | | TRANSFUSION MEDICINE | | | | + + + + + BMP + MAG, POC CHM (08/13/2016 1:01 [...] | | POC | | mmol/L | [facility] | | [...] [facility] | | | | | | HILL, [...] MAGUI | [address] | [place], [place] | | | HILL, POINT OF CARE | [facility] | [address] | | | TESTS | | | [...] | | | | | 10*3/uL | OL[facility] | | | | | [...] [facility] | [address] | [place], [place] | | | MERRY SHAH OF CARE | [address] | [address] | | | TESTS | | | | + + + + + HAPTOGLOBIN, SERUM (08/13/2016 12:41 PM PST) + +---------+ + + + | Component | Value | Ref Range | Performed | Pathologist | | | | | At | Signature | + +---------+ + + + | HAPTOGLOBIN | <10 (L) | 30 - 200 mg/dL | BY[facility] [...] + | BYRD - AIRPORT - | [address] | [place] [address] | | | [place] | | | | + + + [...] [facility] | [address] | [place] [address] | | | SERVICES, CORE | PARK [...] + + + + + | [facility] [employer] | [address] | [place] [address] | | | SERVICES, CORE | PARK [...] +---------+------+--------+ | filgrastim-sndz (RAMONA) | Given | 08/13/20 | 480 mcg | | Right | | injection 480 mcg 480 mcg, | | 16 3:50 | | | Arm | | subcutaneous, ONCE, 1 dose, Fri | | PM PST | | | | | 08/13/16 at 1430 | | | | | | + +--------+ +---------+------+--------+ +---+---+ | | | +---+---+ + +---------+ +-----+---+---+ | magnesium sulfate in water IV | New Bag | 08/13/20 | 4 g | | | | (RTU) 4 g 4 g, intravenous, | | 16 1:48 | | | | | ONCE, 1 dose, Tue08/13/16 at | | PM PST | | | | | 1330 | | | | | | + +---------+ +-----+---+---+ +---+---+ | | | +---+---+ + +---------+ + +---+---+ | NaCl 0.9 % solution 1,000 mL, | New Bag | 08/13/20 | 1,000 mL | | | | intravenous, ONCE, 1 dose, Tue | | 16 1:21 | | | | | 08/13/16 at 1245 | | PM PST | | | | + +---------+ + +---+---+ +---+---+ | | | +---+---+ + +-------+ +--------+---+---+ | potassium chloride (KLOR-CON) | Given | 08/13/20 | 40 mEq | | | | packet 40 mEq 40 mEq, oral, | | 16 3:30 | | | | | ONCE, 1 dose, 08/13/16 at | | PM PST | | | | | 1515 | | | | | | + +-------+ +--------+---+---+ +---+---+ | | | +---+---+ documented in this encounter"
--- OUTSIDE RECORDS SUMMARY | ~2019-01-06 | XMS | Encounter Summary ---
Demographics + + + | Address | [address] | | | [place] [address] | + + + | Home Phone [...] Team Providers + +------+ + | Care Heating And Refrigeration Inspector Name | Role | Phone | [...] | | Ramana | MD Jim | [address] | | | | | | [address] | [address] | | | | | | Ave | [place], [place] | | | | | | [place], [place] | [address] | | | | | | [address] | Phone: | | | | | | Phone: | [phone] | | | | | | [phone] | Fax: | | | | | | Fax: | [phone] | | | | | | [phone] | | +--------+--------+ + + + + [...] | | Transfusion | | | | [address] | | (Platelets); | | | | Mailcode: [id number] | | Injection (zarxio); | | | | [address] | | Medication | | | | [place], [place] | | Administration | | | | [address] | | (potassium) | | | | [phone] | | | +--------+ + + + [...] ulcer; DVT (deep venous thrombosis) ([facility]); Eczema; Hodgkins lymphoma ([facility]); HUS (hemolyti c uremic syndrome), 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 Narrative: Patient ambulated to the infusion room. [...] ambulatory with family. Next Appointme nt in [facility] is on 08/17/16 at 1:15 [...] + + + + | PRODUCT | [id number] | | [facility] | | | UNIT [...] + + + + | EXPIRATION | [id number] | | [facility] | | | DATE [...] + + + + | BLOOD | [id number] | | [facility] | | | PRODUCT [...] + + + + | [facility] | [address] | [place] [address] | | | SERVICES, | [address] [...] MAG[facility] | [address] | [place], [place] | | | HILL, POINT OF CARE | [facility] | [address] | | | TESTS | | | [...] [facility] | [address] | [place], [place] | | | MERRY SHAH OF CARE | [address] | [address] | | | TESTS | | | [...] + | BYRD - AIRPORT - | [address] | [place] [address] | | | [place] | | | | + + + [...] [facility] | [address] | [place] [address] | | | SERVICES, CORE | PARK [...] + + + + + | [facility] | [address] | [place] [address] | | | SERVICES, CORE | PARK [...]
--- OUTSIDE RECORDS SUMMARY | ~2019-01-06 | XMS | Encounter Summary ---
Demographics + + + | Address | [address] | | | [place] [address] | + + + | Home Phone | | + + + | Preferred Language | Unknown | + + + | Marital Status | | + + + | Quaker Affiliation | NON | + + + | Race | White | + + + | Ethnic Group | Not or | + + + Author + + + | Author | [facility] | + + + | Organization | [facility] | + + + | Address [...] Team Providers + +------+ + | Care Staple Cutter Name | Role | Phone | + [...] | 08/07/ | | [id number] SARAN | [place], [place] | | | 2015 | | [place], | [address] | | | | | [place] [address] | [phone] | | | | | [phone] | | | | | | | Jey Fu MD | | | | | | [address] | | | | | | [place], | | | | | | [place] [address] | | | | | | [phone] | | | | | | | | | | | | Jessica Mac R, | | | | | | [place] [address] | | | | | | [place], [place] | | | | | | [address] | | | | | | [phone] | | | | | | | | | | | | Alexis Cabrera, Mary S, | | | | | | MD [address] | | | | | | [facility] | | | | | | [place], [place] | | | | | | [address] | | | | | | [phone] | | | | | | | | | | | | Emery Chilel, MD | | | | | | [address] | | | | | | [facility], | | | | | | [place] [address] | | | | | | [phone] | | | | | | | | | | | | Qamar Wang, | | | | | | MD [address] | | | | | | [place], [place] | | | | | | [address] | | | | | | [phone] | | | | | | | | | | | | Sky Irizarry V, | | | | | | MD [address] | | | | | | [facility] | | | | | | [facility], [place] | | | | | | [address] | | | | | | [phone] | | | | | | | [...] PA-C,JOSE RAMON - 08/07/2016 11:23 AM PST [facility] Discharge Summary Discharging Provider: Ignacio Decker [...] sooner PRN s/s active bleeding HEENT: #Recent Coggon Tooth Extractions (~2-3 weeks DENTAL DETAIL REPRESENTATIVE): Nearly resolved -NS rinses PRN Pulmonary: Pretransplant PFTs completed on 06/25/16 (at [facility]) showed FEV1 of 86% pred icted, FVC of 90% predicted and DLCO of 50% predicted. No acute issues Cardiovascular: Pretransplant MUGA completed on 06/24/16 (at [facility]) showed a LVEF of 5 5%. #RLE DVT (first noted 07/04/15, persists on 07/16 doppler in R axial calf): Apixaban DENTAL DETAIL REPRESENTATIVE -STOPPED Apixiban 5 mg BID on admission, plan to switch from lovenox to apixaban when plts> 50K -Received Tx-dose Lovenox until plts <50K (07/15-07/25) -Lovenox 40 mg qpm while thrombocytopenic w/ keeping plts >20K #Orthostatic HoTN (first noted 07/20): Sx improved with NS boluses but persistently Sx when getting OOB. -1L NS boluses PRN if asymptomatic GI: #GERD: Pepcid DENTAL DETAIL REPRESENTATIVE -Prilosec 40 mg daily #Mucositis: pain without ulcerations, grade 2 -Continue oral care with normal saline rinses frequently -Liquid medications as able -Dilaudid 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 (07/27 -08/04). #[place]: ongoing, improved -Zofran IV/PO q 12 hrs -Zyprexa 10 mg qhs -Ativan, Haldol prn. : #Atypical HUS: Eculizumab DENTAL DETAIL REPRESENTATIVE -Eculizumab q 2 weeks, next dose 08/09. Plan to administer as outpatient. -Monitor for hemolysis flare -Monitor LDH, hapto, complement activity qMon, Thurs #Menstrual suppression: Mild bleed -Norethindrone started 08/05 Neuro/Psych: #Depression/Anxiety: Lexapro DENTAL DETAIL REPRESENTATIVE -Lexapro 10 mg daily -Ativan PRN Infectious [...] Orders and Instructions Call the BMT clinic ([phone]) or BMT person on-call ([phone]) for: Any temp > 100.4 Nausea/vomiting unresponsive [...] INFUSION [facility] [phone] [facility] 08/09/2016 9:20 AM [facility] INFUSION NURSE; [facility] at [place] [address] [facility] 08/10/2016 2:40 PM [facility] INFUSION NURSE; [facility] at [facility] [phone] [facility] 08/10/2016 3:15 PM Coreen Grissom; [facility] MA SUPPORT [facility] at [facility] [phone] [facility] 08/13/2016 12:40 PM [facility] INFUSION NURSE; [facility] IN[facility]ION [facility] t [facility] [phone] [facility] 08/13/2016 1:15 PM Coreen Grissom; M MA SUPPORT [facility] at [facility] [phone] Center for H 08/17/2016 12:40 PM [facility] INFUSION NURSE; [facility] INF[facility]ION [facility] at [facility] [phone] Center for H 08/17/2016 1:15 PM Coreen Grissom; M MA SUPPORT [facility] at [facility] [phone] Center for H 08/20/2016 12:40 PM [facility] INFUSION NURSE; [facility] INFUSION [facility] [phone] Center for H 08/20/2016 1:15 PM Coreen Grissom; [facility] MA SUPPORT [facility] [place] [phone] Center for H JOSE RAMON Pemberton PA-C [facility] [address] [facility] Mailcode: [address] [place] [address] documented in thi s encounter Discharge Instructions Instructions Matheus Olsen RN - 08/02/2016Case Management Discharge Instruction: [facility] will provide your line care supplies and IV abx o n discharge. Call [phone] for questions , concerns or refill of supplies. Eleni Gutierrez RNcost analyst [phone] Check your oral temperature twice a day [...] if you have any questions! BMT CLINIC ([facility]) during clinic hours (M-F 8:30-4:30): [phone] BMT CLINIC ([facility]) at all other times: [phone] 14KPV: [phone] How was your stay with us? Is [...] - d/c medications updated Follow-up: Arranged with [facility] See CLAUDINE discharge summary for details [...] chemotherapy (HCC) MD Sky De Luna MD [place] [id number] [facility] Mailcode: K[address] [place], [place] [id number] I spent 30 min in discharge of pt, >50% in counseling and care coordination any Phillips FNP - 08/06/2016 3:56 PM PST Daily NPP Note - Auto Transplant Admit [facility] Attending: Constantin Link MD [facility] Physician: Constantin Link MD PCP: Aashish Hilton MD Benign Hematology: Jim Michael MD ([facility]) Pediatric Heme/Onc: Anh Moreland MD ([place]) Nephrology: Raghav Miller MD ([place]) Date of Admission: 07/15/2016 Conditioning regimen: BEAM [...] with moderate pain, no ulceration: Received Dilaudid 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 (07/15 3-08/04). Continue prn oxycodone. [...] for autoBMT Local oncologist: Aashish Hilton MD (Formerly [facility]/[place]) Benign Hematology: Jim Michael MD ([facility]) Pediatric Heme/Onc: Anh Moreland MD ([place]) Nephrology: Raghav Miller MD ([place]) 04/2015 presented with flank pain CT C/A/P: 11 cm anterior mediastinal mass, pleural effusion & L supraclav adenopathy Needle bx: classical hodgkins, nodular sclerosing type Thoracentesis: reactive/benign BMBx: neg PET: bulky mediastinal mass, SUV 16; bilateral neck SUV 15; also R>L pleural effusion 05/10/15 began ABVE-PC (as per pediatric [id number]) via femoral line 05/16/15 presented with sepsis [...] L neck: classical Hodgkins Above therapy in [place] -> moved to [place] Continued on ecalizumab per benign heme (Fenranda) - genetic testing for aHUS PENDING GDP [...] sooner PRN s/s active bleeding HEENT: #Recent Coggon Tooth Extractions (~2-3 weeks DENTAL DETAIL REPRESENTATIVE): Nearly resolved -NS rinses PRN Pulmonary: Pretransplant PFTs completed on 06/25/16 (at [facility]) showed FEV1 of 86% pr edicted, FVC of 90% predicted and DLCO of 50% predicted. No acute issues Cardiovascular: Pretransplant MUGA completed on 06/24/16 (at [facility]) showed a LVEF of 5 5%. #RLE DVT (first noted 07/04/15, persists on 07/16 doppler in R axial calf): Apixaban DENTAL DETAIL REPRESENTATIVE -STOPPED Apixiban 5 mg BID on admission, plan to switch from lovenox to apixaban when plt s>50K -Received Tx-dose Lovenox until plts <50K (07/15-07/25) -Lovenox 40 mg qpm while thrombocytopenic w/ keeping plts >20K #Orthostatic HoTN (first noted 07/20): Sx improved with NS boluses but persistently Sx when getting OOB. -1L NS boluses PRN if asymptomatic GI: #GERD: Pepcid DENTAL DETAIL REPRESENTATIVE -Prilosec 40 mg daily #Mucositis: pain without ulcerations, grade 2 -Continue oral care with normal saline rinses frequently -Liquid medications as able -Dilaudid 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 (07/27 -08/04). #[place]: ongoing, improved -Zofran IV/PO q 12 hrs -Zyprexa 10 mg qhs -Ativan, Haldol prn. : #Atypical HUS: Eculizumab DENTAL DETAIL REPRESENTATIVE -Eculizumab q 2 weeks, next dose 08/09. Plan to administer as outpatient. -Monitor for hemolysis flare -Monitor LDH, hapto, complement activity qMon, Thurs #Menstrual suppression: Mild bleed -Norethindrone started 08/05 Neuro/Psych: #Depression/Anxiety: Lexapro DENTAL DETAIL REPRESENTATIVE -Lexapro 10 mg daily -Ativan PRN Infectious [...] PBSCT. Anticipate 3-4 week hospitalization. MORENA Nieves [facility] [address] [facility] Mailcode: [address] [place] [address] [id number] signed by MORENA Ramos at 08/06/2016 4:43 [...] I asked them to bill the Patient Bestowed for the first 6 nights. Notified patient by phone to her room. Mel SALDIVAR [facility] [address] [facility] Mailcode: [address] [place] [address] [phone] signed by Mel Saldivar at 08/06/2016 11:38 [...] for d/c Tuesday 08/07, pending PO intake department mgr setting up home iv abx Arrange d/c [...] (HCC) Constantin Link MD PhD ohamFany new, COLLAR TRIMMER - 08/05/2016 4:25 PM PST Daily NPP Note - Auto Transplant Admit [facility] Attending: Constantin Link MD [facility] Physician: Constantin Link MD PCP: Aashish Hilton MD Benign Hematology: Jim Michael MD ([facility]) Pediatric Heme/Onc: Anh Moreland MD ([place]) Nephrology: Raghav Miller MD ([place]) Date of Admission: 07/15/2016 Conditioning regimen: BEAM [...] with moderate pain, no ulceration: Received Dilaudid 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 (07/15 3-08/04). Continue prn oxycodone. [...] for autoBMT Local oncologist: Aashish Hilton MD (Formerly [facility]) Benign Hematology: Jim Michael MD ([facility]) Pediatric Heme/Onc: Anh Moreland MD ([place]) Nephrology: Raghav Miller MD ([place]) 04/2015 presented with flank pain CT C/A/P: 11 cm anterior mediastinal mass, pleural effusion & L supraclav adenopathy Needle bx: classical hodgkins, nodular sclerosing type Thoracentesis: reactive/benign BMBx: neg PET: bulky mediastinal mass, SUV 16; bilateral neck SUV 15; also R>L pleural effusion 05/10/15 began ABVE-PC (as per pediatric [id number]) via femoral line 05/16/15 presented with sepsis [...] L neck: classical Hodgkins Above therapy in [place] -> moved to [place] Continued on ecalizumab per benign heme (Fernanda) [...] sooner PRN s/s active bleeding HEENT: #Recent Coggon Tooth Extractions (~2-3 weeks DENTAL DETAIL REPRESENTATIVE): Nearly resolved -NS rinses PRN Pulmonary: Pretransplant PFTs completed on 06/25/16 (at [facility]) showed FEV1 of 86% pr edicted, FVC of 90% predicted and DLCO of 50% predicted. No acute issues Cardiovascular: Pretransplant MUGA completed on 06/24/16 (at [facility]) showed a LVEF of 5 5%. #RLE DVT (first noted 07/04/15, persists on 07/16 doppler in R axial calf): Apixaban DENTAL DETAIL REPRESENTATIVE -STOPPED Apixiban 5 mg BID on admission -Received Tx-dose Lovenox until plts <50K (07/15-07/25) -Lovenox 40 mg qpm while thrombocytopenic w/ keeping plts >20K #Orthostatic HoTN (first noted 07/20): Sx improved with NS boluses but persistently Sx when getting OOB. -1L NS boluses PRN if asymptomatic GI: #GERD: Pepcid DENTAL DETAIL REPRESENTATIVE -Prilosec 40 mg daily #Mucositis: pain without ulcerations, grade 2 -Continue oral care with normal saline rinses frequently -Liquid medications as able -Dilaudid 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 (07/27 -08/04). #[place]: ongoing, improved -Zofran IV/PO q 12 hrs -Zyprexa 10 mg qhs -Ativan, Haldol prn. : #Atypical HUS: Eculizumab DENTAL DETAIL REPRESENTATIVE -Eculizumab q 2 weeks, next dose 08/09. Plan to administer as outpatient. -Monitor for hemolysis flare -Monitor LDH, hapto, complement activity qMon, Thurs #Menstrual suppression: Mild bleed -Norethindrone started 08/05 Neuro/Psych: #Depression/Anxiety: Lexapro DENTAL DETAIL REPRESENTATIVE -Lexapro 10 mg daily -Ativan PRN Infectious [...] PBSCT. Anticipate 3-4 week hospitalization. MORENA Nieves [facility] [address] [facility] Mailcode: [facility] [place] [address] [id number] signed by MORENA Ramos at 08/05/2016 6:45 [...] - anc 0.38 ANC engrafting Wean off 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 BMT/Hodgkins - stg 2 bulky, [...] for Hematologic Malignancies Attending: Constantin Link MD [facility] Physician: Constantin Link MD PCP: Aashish Hilton MD Benign Hematology: Jim Michael MD ([facility]) Pediatric Heme/Onc: Anh Moreland MD ([place]) Nephrology: Raghav Miller MD ([place]) Date of Admission: 07/15/2016 Conditioning regimen: BEAM [...] with moderate pain, no ulceration: Received Dilaudid 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 (07/15 3-08/04). Start prn oxycodone. [...] for autoBMT Local oncologist: Aashish Hilton MD ([facility]ly [facility]) Benign Hematology: Jim Michael MD ([facility]) Pediatric Heme/Onc: Anh Moreland MD ([place]) Nephrology: Raghav Miller MD ([place]) 04/2015 presented with flank pain CT C/A/P: 11 cm anterior mediastinal mass, pleural effusion & L supraclav adenopathy Needle bx: classical hodgkins, nodular sclerosing type Thoracentesis: reactive/benign BMBx: neg PET: bulky mediastinal mass, SUV 16; bilateral neck SUV 15; also R>L pleural effusion 05/10/15 began ABVE-PC (as per pediatric [id number]) via femoral line 05/16/15 presented with sepsis [...] L neck: classical Hodgkins Above therapy in [place] -> moved to [place] Continued on ecalizumab per benign heme (Fernanda) [...] sooner PRN s/s active bleeding HEENT: #Recent Coggon Tooth Extractions (~2-3 weeks DENTAL DETAIL REPRESENTATIVE): Nearly resolved -NS rinses PRN Pulmonary: Pretransplant PFTs completed on 06/25/16 (at [facility]) showed FEV1 of 86% pr edicted, FVC of 90% predicted and DLCO of 50% predicted. No acute issues Cardiovascular: Pretransplant MUGA completed on 06/24/16 (at [facility]) showed a LVEF of 5 5%. #RLE DVT (first noted 07/04/15, persists on 07/16 doppler in R axial calf): Apixaban DENTAL DETAIL REPRESENTATIVE -STOPPED Apixiban 5 mg BID on admission -Received Tx-dose Lovenox until plts <50K (07/15-07/25) -Lovenox 40 mg qpm while thrombocytopenic w/ keeping plts >20K #Orthostatic HoTN (first noted 07/20): Sx improved with NS boluses but persistently Sx when getting OOB. -1L NS boluses PRN if asymptomatic GI: #GERD: Pepcid DENTAL DETAIL REPRESENTATIVE -Prilosec 40 mg daily #Mucositis: pain without ulcerations, grade 2 -Continue oral care with normal saline rinses frequently -Liquid medications as able -Transition to IV meds if worsening PO intake -Dilaudid 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 (07/27 -08/04). #[place]: ongoing, improved -Zofran IV/PO q 12 hrs -Zyprexa 10 mg qhs -Ativan, Haldol prn. Renal: #Atypical HUS: Eculizumab DENTAL DETAIL REPRESENTATIVE -Eculizumab q 2 weeks, next dose 08/09. Plan to administer as outpatient. -Monitor for hemolysis flare -Monitor LDH, hapto, complement activity qMon, Thurs Neuro/Psych: #Depression/Anxiety: Lexapro DENTAL DETAIL REPRESENTATIVE -Lexapro 10 mg daily -Ativan PRN Infectious [...] PBSCT. Anticipate 3-4 week hospitalization. MORENA Nieves [facility] [address] [facility] Mailcode: [address] [place] [address] [id number] signed by MORENA Ramos at 08/04/2016 3:23 PM PSTMoFany an FNP - 08/03/2016 6:07 PM PSTFormatting of this note might be different fro m the original. Daily NPP Note - Auto Transplant Admit [facility] Attending: Constantin Link MD [facility] Physician: Constantin Link MD PCP: Aashish Hilton MD Benign Hematology: Jim Michael MD ([facility]) Pediatric Heme/Onc: Anh Moreland MD ([place]) Nephrology: Raghav Miller MD ([place]) Date of Admission: 07/15/2016 Conditioning regimen: BEAM [...] with moderate pain, no ulceration: continue Dilaudid 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 (07/27 - ). -FVO: Remains off MIVF 2/2 FVO. Diurese prn. -[place]: continue scheduled Zofran and Zyprexa. Ativan/haldol PRN. -Lytes: Standard electrolyte replacement. K & phos repleted. Subjective: Has ongoing mouth pain, controlled on 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. Diarrhea improved compared to yeste [...] for autoBMT Local oncologist: Aashish Hilton MD (Formerly [facility]) Benign Hematology: Jim Michael MD ([facility]) Pediatric Heme/Onc: Anh Moreland MD ([place]) Nephrology: Raghav Miller MD ([place]) 04/2015 presented with flank pain CT C/A/P: 11 cm anterior mediastinal mass, pleural effusion & L supraclav adenopathy Needle bx: classical hodgkins, nodular sclerosing type Thoracentesis: reactive/benign BMBx: neg PET: bulky mediastinal mass, SUV 16; bilateral neck SUV 15; also R>L pleural effusion 05/10/15 began ABVE-PC (as per pediatric [id number]) via femoral line 05/16/15 presented with sepsis [...] L neck: classical Hodgkins Above therapy in [place] -> moved to [place] Continued on ecalizumab per benign heme (Fernanda) [...] sooner PRN s/s active bleeding HEENT: #Recent Coggon Tooth Extractions (~2-3 weeks DENTAL DETAIL REPRESENTATIVE): Nearly resolved -NS rinses PRN Pulmonary: Pretransplant PFTs completed on 06/25/16 (at [facility]) showed FEV1 of 86% pr edicted, FVC of 90% predicted and DLCO of 50% predicted. No acute issues Cardiovascular: Pretransplant MUGA completed on 06/24/16 (at [facility]) showed a LVEF of 5 5%. #RLE DVT (first noted 07/04/15, persists on 07/16 doppler in R axial calf): Apixaban DENTAL DETAIL REPRESENTATIVE -STOPPED Apixiban 5 mg BID on admission -Received Tx-dose Lovenox until plts <50K (07/15-07/25) -Lovenox 40 mg qpm while thrombocytopenic w/ keeping plts >20K #Orthostatic HoTN (first noted 07/20): Sx improved with NS boluses but persistently Sx when getting OOB. -1L NS boluses PRN if asymptomatic GI: #GERD: Pepcid DENTAL DETAIL REPRESENTATIVE -Prilosec 40 mg daily #Mucositis: pain without ulcerations, grade 2 -Continue oral care with normal saline rinses frequently -Liquid medications as able -Transition to IV meds if worsening PO intake -Dilaudid 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 initiated 07/27 #[place]: ongoing, improved -Zofran IV/PO q 12 hrs -Zyprexa 10 mg qhs -Ativan, Haldol, benadryl prn. Renal: #Atypical HUS: Eculizumab DENTAL DETAIL REPRESENTATIVE -Eculizumab q 2 weeks, next dose 08/09 -Monitor for hemolysis flare -Monitor LDH, hapto, complement activity qMon, Thurs Neuro/Psych: #Depression/Anxiety: Lexapro DENTAL DETAIL REPRESENTATIVE -Lexapro 10 mg daily -Ativan PRN Infectious [...] starts around Day +30 to +40 ( [id number] mg po daily as sulfa allergic), pending [...] PBSCT. Anticipate 3-4 week hospitalization. MORENA Nieves [facility] [address] [facility] Mailcode: [address] [place], [place] [id number] [phone] signed by MORENA Ramos at 08/03/2016 6:25 [...] using the Patient Ass istance Fund at [facility]. The patient will be responsible for the rest of t he stay and will get the reimbursement. Patient is aware to contact myself or Jenny if she has any issues going forward after the 6 days. Mel SALDIVAR [facility] [address] [facility] Mailcode: [address] [place], [place] [id number] urLashon rosas PA - 08/02/2016 6:50 PM PST Daily NPP Note - Auto Transplant Admit [facility] Attending: Constantin Link MD [facility] Physician: Constantin Link MD PCP: Aashish Hilton MD Benign Hematology: Jim Michael MD ([facility]) Pediatric Heme/Onc: Anh Moreland MD ([place]) Nephrology: Raghav Miller MD ([place]) Date of Admission: 07/15/2016 Conditioning regimen: BEAM [...] with moderate pain, no ulceration: continue Dilaudid 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 starte d 07/27 for now. [...] for autoBMT Local oncologist: Aashish Hilton MD ([facility]ly [facility]) Benign Hematology: Jim Michael MD ([facility]) Pediatric Heme/Onc: Anh Moreland MD ([place]) Nephrology: Raghav Miller MD ([place]) 04/2015 presented with flank pain CT C/A/P: 11 cm anterior mediastinal mass, pleural effusion & L supraclav adenopathy Needle bx: classical hodgkins, nodular sclerosing type Thoracentesis: reactive/benign BMBx: neg PET: bulky mediastinal mass, SUV 16; bilateral neck SUV 15; also R>L pleural effusion 05/10/15 began ABVE-PC (as per pediatric [id number]) via femoral line 05/16/15 presented with sepsis [...] L neck: classical Hodgkins Above therapy in [place] -> moved to [place] Continued on ecalizumab per benign heme (Fernanda) [...] sooner PRN s/s active bleeding HEENT: #Recent Coggon Tooth Extractions (~2-3 weeks DENTAL DETAIL REPRESENTATIVE): Nearly resolved -NS rinses PRN Pulmonary: Pretransplant PFTs completed on 06/25/16 (at [facility]) showed FEV1 of 86% pr edicted, FVC of 90% predicted and DLCO of 50% predicted. No acute issues Cardiovascular: Pretransplant MUGA completed on 06/24/16 (at [facility]) showed a LVEF of 5 5%. #RLE DVT (first noted 07/04/15, persists on 07/16 doppler in R axial calf): Apixaban DENTAL DETAIL REPRESENTATIVE -STOPPED Apixiban 5 mg BID on admission -Received Tx-dose Lovenox until plts <50K (07/15-07/25) -Lovenox 40 mg qpm while thrombocytopenic w/ keeping plts >20K #Orthostatic HoTN (first noted 07/20): Sx improved with NS boluses but persistently Sx when getting OOB. -1L NS boluses PRN if asymptomatic GI: #GERD: Pepcid DENTAL DETAIL REPRESENTATIVE -Prilosec 40 mg daily #Mucositis: pain without ulcerations, grade 2 -Continue oral care with normal saline rinses frequently -Liquid medications as able -Transition to IV meds if worsening PO intake -Dilaudid 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 initiated 07/27 -MIVF as below #[place]: ongoing, improved -Zofran IV/PO q 12 hrs -Zyprexa 10 mg qhs -Ativan, Haldol, benadryl prn. Renal: #Atypical HUS: Eculizumab DENTAL DETAIL REPRESENTATIVE -Eculizumab q 2 weeks, next dose 08/09 -Monitor for hemolysis flare -Monitor LDH, hapto, complement activity qMon, Thurs Neuro/Psych: #Depression/Anxiety: Lexapro DENTAL DETAIL REPRESENTATIVE -Lexapro 10 mg daily -Ativan PRN Infectious [...] around Day +30 to +40 (or Daps [id number] mg po daily if sulfa allergic), pending [...] hospitalization. LILLIANA FarfanC [facility] [facility] Mailcode: [id number] [place] [phone] Constantin Abernathy MD,PhD - 08/02/2016 4:07 PM [...] for Hematologic Malignancies Attending: Constantin Link MD [facility] Physician: Constantin Link MD PCP: Aashish Hilton MD Benign Hematology: Jim Michael MD ([facility]) Pediatric Heme/Onc: Anh Moreland MD ([place]) Nephrology: Raghav Miller MD ([place]) Date of Admission: 07/15/2016 Conditioning regimen: BEAM [...] with moderate pain, no ulceration: continue Dilaudid 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 starte d 07/27 for now. [...] for autoBMT Local oncologist: Aashish Hilton MD ([facility]) Benign Hematology: Jim Michael MD ([facility]) Pediatric Heme/Onc: Anh Moreland MD ([place]) Nephrology: Raghav Miller MD ([place]) 04/2015 presented with flank pain CT C/A/P: 11 cm anterior mediastinal mass, pleural effusion & L supraclav adenopathy Needle bx: classical hodgkins, nodular sclerosing type Thoracentesis: reactive/benign BMBx: neg PET: bulky mediastinal mass, SUV 16; bilateral neck SUV 15; also R>L pleural effusion 05/10/15 began ABVE-PC (as per pediatric [id number]) via femoral line 05/16/15 presented with sepsis [...] L neck: classical Hodgkins Above therapy in [place] -> moved to [place] Continued on ecalizumab per benign heme ([facility]anda) [...] sooner PRN s/s active bleeding HEENT: #Recent Coggon Tooth Extractions (~2-3 weeks DENTAL DETAIL REPRESENTATIVE): Nearly resolved -NS rinses PRN Pulmonary: Pretransplant PFTs completed on 06/25/16 (at [facility]) showed FEV1 of 86% pr edicted, FVC of 90% predicted and DLCO of 50% predicted. No acute issues Cardiovascular: Pretransplant MUGA completed on 06/24/16 (at [facility]) showed a LVEF of 5 5%. #RLE DVT (first noted 07/04/15, persists on 07/16 doppler in R axial calf): Apixaban DENTAL DETAIL REPRESENTATIVE -STOPPED Apixiban 5 mg BID on admission -Received Tx-dose Lovenox until plts <50K (07/15-07/25) -Lovenox 40 mg qpm while thrombocytopenic w/ keeping plts >20K #Orthostatic HoTN (first noted 07/20): Sx improved with NS boluses but persistently Sx when getting OOB. -1L NS boluses PRN if asymptomatic GI: #GERD: Pepcid DENTAL DETAIL REPRESENTATIVE -Prilosec 40 mg daily #Mucositis: pain without ulcerations, grade 2 -Continue oral care with normal saline rinses frequently -Liquid medications as able -Transition to IV meds if worsening PO intake -Dilaudid 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 initiated 07/27 -MIVF as below #[place]: ongoing, improved -Zofran IV/PO q 12 hrs -Zyprexa 10 mg qhs -Ativan, Haldol, benadryl prn. Renal: #Atypical HUS: Eculizumab DENTAL DETAIL REPRESENTATIVE -Eculizumab q 2 weeks, next dose 08/09 -Monitor for hemolysis flare -Monitor LDH, hapto, complement activity qMon, Thurs Neuro/Psych: #Depression/Anxiety: Lexapro DENTAL DETAIL REPRESENTATIVE -Lexapro 10 mg daily -Ativan PRN Infectious [...] around Day +30 to +40 (or Daps [id number] mg po daily if sulfa allergic), pending [...] PA-C [facility] [address] [facility] Mailcode: Uhn73a [place] [phone] Miguel Sarkar MD - 08/01/2016 2:54 AM [...] normotensive Gastrointestinal: soft, nontender, not distended [facility]remities: [facility] LABS: Chemistries Recent Labs 07/30/16 0008 [...] Miguel Dooley MD General Surgery Resident, R3 [id number] urLashon rosas PA - 07/31/2016 4:44 PM PST . Daily NPP Note - Auto Transplant Admit [facility] Attending: Qamar Wang MD [facility] Physician: Constantin Link MD PCP: Aashish Hilton MD Benign Hematology: Jim Michael MD ([facility]) Pediatric Heme/Onc: Anh Moreland MD ([place]) Nephrology: Raghav Miller MD ([place]) Date of Admission: 07/15/2016 Conditioning regimen: BEAM [...] d/t moderate pain, no ulceration: On Dilaudid 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 07/27, continue MIVF d/t decreased [...] for autoBMT Local oncologist: Aashish Hilton MD (Formerly [facility]/[place]) Benign Hematology: Jim Michael MD ([facility]) Pediatric Heme/Onc: Anh Moreland MD ([place]) Nephrology: Raghav Miller MD ([place]) 04/2015 presented with flank pain CT C/A/P: 11 cm anterior mediastinal mass, pleural effusion & L supraclav adenopathy Needle bx: classical hodgkins, nodular sclerosing type Thoracentesis: reactive/benign BMBx: neg PET: bulky mediastinal mass, SUV 16; bilateral neck SUV 15; also R>L pleural effusion 05/10/15 began ABVE-PC (as per pediatric [id number]) via femoral line 05/16/15 presented with sepsis [...] L neck: classical Hodgkins Above therapy in [place] -> moved to [place] Contin[facility] - genetic testing for aHUS [...] sooner PRN s/s active bleeding HEENT: #Recent Coggon Tooth Extractions (~2-3 weeks DENTAL DETAIL REPRESENTATIVE): Nearly resolved -NS rinses PRN Pulmonary: Pretransplant PFTs completed on 06/25/16 (at [facility] showed FEV1 of 86% pr edicted, FVC of 90% predicted and DLCO of 50% predicted. No acute issues Cardiovascular: Pretransplant MUGA completed on 06/24/16 (at [facility]) showed a LVEF of 5 5%. #RLE DVT (first noted 07/04/15, persists on 07/16 doppler in R axial calf): Apixaban DENTAL DETAIL REPRESENTATIVE -STOPPED Apixiban 5 mg BID on admission -Received Tx-dose Lovenox until plts <50K (07/15-07/25) -Lovenox 40 mg qpm while thrombocytopenic w/ keeping plts >20K #Orthostatic HoTN (first noted 07/20): Sx improved with NS boluses but persistently Sx when getting OOB. -1L NS boluses PRN if asymptomatic GI: #GERD: Pepcid DENTAL DETAIL REPRESENTATIVE -Prilosec 40 mg daily #Mucositis: pain without ulcerations, grade 2 -Continue oral care with normal saline rinses frequently -Liquid medications as able -Transition to IV meds if worsening PO intake -Dilaudid 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 initiated 07/27 -MIVF as below #[place]: ongoing, improved -Benadryl 25 mg PO q 6 hrs -Zofran IV/PO q 12 hrs -Zyprexa 10 mg qhs -Ativan, Haldol PRN Renal: #Atypical HUS: Ecalizumab DENTAL DETAIL REPRESENTATIVE -Eculizumab q 2 weeks, next dose 08/09 -Monitor for hemolysis flare -Monitor LDH, hapto, complement activity qMon, Thurs Neuro/Psych: #Depression/Anxiety: Lexapro DENTAL DETAIL REPRESENTATIVE -Lexapro 10 mg daily -Ativan PRN Infectious [...] around Day +30 to +40 (or Daps [id number] mg po daily if sulfa allergic), pending [...] hospitalization. JASMIN Farfan-C [facility] [address] [place] [address] Mailcode: [email or web address] [facility] [phone] Constantin Abernathy MD,PhD - 07/31/2016 3:30 PM [...] PA-C,MPAS, 2 5 mg at 07/31/16 0619 yfxdaosmkoXTSDK-mebietlnh-ONQDKU (SPECIAL MOUTHWASH) suspension (compound) 10-15 mL, 10-15 mL, oral, Q1H PRN, Constantin Link MD,PhD, 15 mL at 07/26/16 0957 enoxaparin (LOVENOX) injection 40 mg, 40 mg, subcutaneous, QPM, Lluvia Gonzalez, JAVA SOFTWARE DEVELOPER, 40 mg at 07/30/162051 escitalopram oxalate (LEXAPRO) tablet 10 mg, 10 mg, oral, QPM, Vanessa Osborne, COLLAR TRIMMER, 10 mg at 07/30/162051 filgrastim-sndz (ZARXIO) injection [...] Units at 07/29/16 1457 HYDROmorphone 0.5 mg/mL 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 infusion (ADULT), , intravenous, CONTINUOUS, Ignacio Decker PA-C, MPAS, Last Rate: 0 mL/hr at 07/30/16 0615 lidocaine (LMX 4) 4 % cream, , topical, PRN, Vandana Chang, COLLAR TRIMMER loperamide (IMODIUM A-D) 1 mg/7.5 mL liquid 2 mg, 2 mg, oral, PRN, Mary Pérez MD, 2 mg at 07/30/16 1747 LORazepam (ATIVAN) tablet 0.5-1 mg, 0.5-1 mg, oral, Q6H PRN OR LORazepam (ATIVAN) injec tion 0.5-1 mg, 0.5-1 mg, intravenous, Q6H PRN, Vandana Chang, COLLAR TRIMMER, 0.5 mg at 6 0909 magnesium sulfate [...] pending CULTURE, BLOOD BACTI & YEAST OH [[id number]] [facility] CORE LAB Collected: 07/30/162158 Lab Status: In process Specimen: Blood from Hand - right Updated: 07/30/164 CULTURE, STERILITY BACTI [[id number]] LAB Collected: 07/30/16 0832 Lab Status: Preliminary result Specimen: Device Updated: 07/31/16 1004 Narrative: Culture Report: No growth to date Culture examined daily Report will be updated if growth occurs CULTURE, STERILITY BACTI [[id number]] LAB Collected: 07/30/16 0832 Lab Status: Preliminary [...] removed Port-A-Cath. IMPRESSION: Clear lungs. 07/30 EXAM: [place] CHEST 1 VIEW HISTORY: Fever, tachycardia. Patient [...] Will follow with you. Silva Hector MD [facility] [address] [facility] Mailcode: [email or web address] [place] [address] iguel Dooley MD - 07/31/2016 3:19 AM [...] attending of record Miguel Dooley MD EGS, [id number] yMiguel velez MD - 07/30/2016 10:45 PM [...] normotensive Gastrointestinal: soft, nontender, not distended Extremities: [facility] LABS: Chemistries Recent Labs 07/27/16 2331 [...] Miguel Dooley MD General Surgery Resident, R3 [id number] ashon Tristan PA - 07/30/2016 5:47 PM PST . Daily NPP Note - Auto Transplant Admit [facility] Attending: Qamar Wang MD [facility] Physician: Constantin Link MD PCP: Aashish Hilton MD Benign Hematology: Jim Michael MD ([facility]) Pediatric Heme/Onc: Anh Moreland MD ([place]) Nephrology: Raghav Miller MD ([place]) Date of Admission: 07/15/2016 Conditioning regimen: BEAM [...] d/t moderate pain, no ulceration: Started Dilaudid 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 07/27, continue MIVF d/t decreased [...] for autoBMT Local oncologist: Aashish Hilton MD (Formerly [facility]/[place]) Benign Hematology: Jim Michael MD ([facility]) Pediatric Heme/Onc: Anh Moreland MD ([place]) Nephrology: Raghav Miller MD ([place]) 04/2015 presented with flank pain CT C/A/P: 11 cm anterior mediastinal mass, pleural effusion & L supraclav adenopathy Needle bx: classical hodgkins, nodular sclerosing type Thoracentesis: reactive/benign BMBx: neg PET: bulky mediastinal mass, SUV 16; bilateral neck SUV 15; also R>L pleural effusion 05/10/15 began ABVE-PC (as per pediatric [id number]) via femoral line 05/16/15 presented with sepsis [...] L neck: classical Hodgkins Above therapy in [place] -> moved to [place] [facility] - genetic testing for aHUS [...] sooner PRN s/s active bleeding HEENT: #Recent Coggon Tooth Extractions (~2-3 weeks DENTAL DETAIL REPRESENTATIVE): Nearly resolved -NS rinses PRN Pulmonary: Pretransplant PFTs completed on 06/25/16 (at [facility]) showed FEV1 of 86% pr edicted, FVC of 90% predicted and DLCO of 50% predicted. No acute issues Cardiovascular: Pretransplant MUGA completed on 06/24/16 (at [facility]) showed a LVEF of 5 5%. #RLE DVT (first noted 07/04/15, persists on 07/16 doppler in R axial calf): Apixaban DENTAL DETAIL REPRESENTATIVE -STOPPED Apixiban 5 mg BID on admission -Received Tx-dose Lovenox until plts <50K (07/15-07/25) -Lovenox 40 mg qpm while thrombocytopenic w/ keeping plts >20K #Orthostatic HoTN (first noted 07/20): Sx improved with NS boluses but persistently Sx when getting OOB. -1L NS boluses PRN if asymptomatic GI: #GERD: Pepcid DENTAL DETAIL REPRESENTATIVE -Prilosec 40 mg daily #Mucositis: pain without ulcerations, grade 2 -Continue oral care with normal saline rinses frequently -Liquid medications as able -Transition to IV meds if worsening PO intake -Dilaudid 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 initiated 07/27 -MIVF as below #[place]: ongoing, improved -Benadryl 25 mg PO q 6 hrs -Zofran IV/PO q 12 hrs -Zyprexa 10 mg qhs -Ativan, Haldol PRN Renal: #Atypical HUS: Ecalizumab DENTAL DETAIL REPRESENTATIVE -Eculizumab q 2 weeks, next dose 08/09 -Monitor for hemolysis flare -Monitor LDH, hapto, complement activity qMon, Thurs Neuro/Psych: #Depression/Anxiety: Lexapro DENTAL DETAIL REPRESENTATIVE -Lexapro 10 mg daily -Ativan PRN Infectious [...] around Day +30 to +40 (or Daps [id number] mg po daily if sulfa allergic), pending [...] hospitalization. LILLIANA FarfanC [facility] [address] [place] [address] Mailcode: Uhn73a [facility] [phone] eo Polanco - 07/30/2016 5:41 PM PSTTransthoracic [...] PA-C,MPAS, 2 5 mg at 07/30/16 1203 pokyiykzddCOVYN-fujbwxcph-ONFXPK (SPECIAL MOUTHWASH) suspension (compound) 10-15 mL, 10-15 [...] Units at 07/29/16 1457 HYDROmorphone 0.5 mg/mL 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 infusion (ADULT), , intravenous, CONTINUOUS, Ignacio Decker PA-C MPAS, Last Rate: 0 mL/hr at 07/30/16 0615 lidocaine (LMX 4) 4 % cream, , topical, PRN, Vandana Chang, COLLAR TRIMMER loperamide (IMODIUM A-D) 1 mg/7.5 mL liquid [...] isolated at 5 days. URINE CULTURE WORKUP [[id number]] (Abnormal) LAB Collected: 07/28/16 1700 Lab Status: Final result Specimen: Urine from Urine Updated: 07/29/162157 ORGANISM Gram positive bacilli (A) LAB Narrative: Culture Report: 30,000 cfu/ml Gram positive bacilli Morphologically resembling Lactobacillus species < 10,000 cfu/ml Insignificant growth OTHER MICRO: 07/29 influenza A/B PCR negative 07/29 respiratory pathogen panel negative Recent radiographs: 07/29 EXAM: [place] CHEST 1 VIEW HISTORY: Hypoxemia COMPARISON: Yesterday [...] Will follow with you. Silva Hector MD [facility] [address] [facility] Mailcode: [email or web address] [place], [place] [id number] Qamar Hall MD - 07/30/2016 12:26 PM [...] control for mucositis and line removal -conitnue 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 See CLAUDINE documentation from today for complete details. Supportive care as outlined in NPP note and our orders from today CODE: FULL QAMAR WANG MD rn emergency room [facility] Cancer [email or web address] [phone] Margi Puentes PA - 07/30/2016 11:49 AM PSTFormatting of this note might be different from the origina l. Daily NPP Note - Auto Transplant Admit [facility] Attending: Qamar Wang MD [facility] Physician: Constantin Link MD PCP: Aashish Hilton MD Benign Hematology: Jim Michael MD ([facility]) Pediatric Heme/Onc: Anh Moreland MD ([place]) Nephrology: Raghav Miller MD ([place]) Date of Admission: 07/15/2016 Conditioning regimen: BEAM [...] d/t moderate pain, no ulceration: Started Dilaudid 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 07/27, continue MIVF d/t decreased [...] for autoBMT Local oncologist: Aashish Hilton MD ([facility]ly [facility]/[place]) Benign Hematology: Jim Michael MD ([facility]) Pediatric Heme/Onc: Anh Moreland MD ([place]) Nephrology: Raghav Miller MD ([place]) 04/2015 presented with flank pain CT C/A/P: 11 cm anterior mediastinal mass, pleural effusion & L supraclav adenopathy Needle bx: classical hodgkins, nodular sclerosing type Thoracentesis: reactive/benign BMBx: neg PET: bulky mediastinal mass, SUV 16; bilateral neck SUV 15; also R>L pleural effusion 05/10/15 began ABVE-PC (as per pediatric [id number]) via femoral line 05/16/15 presented with sepsis [...] L neck: classical Hodgkins Above therapy in [place] -> moved to [place] Continued on ecalizumab per benign heme ([facility]) [...] sooner PRN s/s active bleeding HEENT: #Recent Coggon Tooth Extractions (~2-3 weeks DENTAL DETAIL REPRESENTATIVE): Nearly resolved -NS rinses PRN Pulmonary: Pretransplant PFTs completed on 06/25/16 (at [facility]) showed FEV1 of 86% pr edicted, FVC of 90% predicted and DLCO of 50% predicted. No acute issues Cardiovascular: Pretransplant MUGA completed on 06/24/16 (at [facility]) showed a LVEF of 5 5%. #RLE DVT (first noted 07/04/15, persists on 07/16 doppler in R axial calf): Apixaban DENTAL DETAIL REPRESENTATIVE -STOPPED Apixiban 5 mg BID on admission -Received Tx-dose Lovenox until plts <50K (07/15-07/25) -Lovenox 40 mg qpm while thrombocytopenic w/ keeping plts >20K #Orthostatic HoTN (first noted 07/20): Sx improved with NS boluses but persistently Sx when getting OOB. -1L NS boluses PRN if asymptomatic GI: #GERD: Pepcid DENTAL DETAIL REPRESENTATIVE -Prilosec 40 mg daily #Mucositis: pain without ulcerations, grade 2 -Continue oral care with normal saline rinses frequently -Liquid medications as able -Transition to IV meds if worsening PO intake -Dilaudid 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 initiated 07/27 -MIVF as below #[place]: ongoing, improved -Benadryl 25 mg PO q 6 hrs -Zofran IV/PO q 12 hrs -Zyprexa 10 mg qhs -Ativan, Haldol PRN Renal: #Atypical HUS: Ecalizumab DENTAL DETAIL REPRESENTATIVE -Eculizumab q 2 weeks, next dose 08/09 -Monitor for hemolysis flare -Monitor LDH, hapto, complement activity qMon, Thurs Neuro/Psych: #Depression/Anxiety: Lexapro DENTAL DETAIL REPRESENTATIVE -Lexapro 10 mg daily -Ativan PRN Infectious [...] around Day +30 to +40 (or Daps [id number] mg po daily if sulfa allergic), pending [...] Lashon Tristan PA-C [facility] [address] [facility] Mailcode: Uhn73a Joanne Herman [facility] [phone] Miguel Sarkar MD - 07/30/2016 [...] normotensive Gastrointestinal: soft, nontender, not distended Extremities: [facility] LABS: Chemistries Recent Labs 07/27/16233007/28/16232607/30/16 0008 [...] Miguel Dooley MD General Surgery Resident, R3 [id number] Juliette Paulino MD - 07/29/2016 9:24 PM [...] vancomycin, cefepime. Juliette Horton MD luvia Gonzalez JAVA SOFTWARE DEVELOPER - 07/29/2016 4:33 PM PST Daily NPP Note - Auto Transplant Admit [facility] Attending: Qamar Wang MD [facility] Physician: Constantin Link MD PCP: Aashish Hilton MD Benign Hematology: Jim Michael MD ([facility]) Pediatric Heme/Onc: Anh Moreland MD ([place]) Nephrology: Raghav Miller MD ([place]) Date of Admission: 07/15/2016 Conditioning regimen: BEAM [...] d/t moderate pain, no ulceration: Started Dilaudid 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 07/27, continue MIVF d/t decreased [...] for autoBMT Local oncologist: Aashish Hilton MD ([facility]) Benign Hematology: Jim Michael MD ([facility]) Pediatric Heme/Onc: Anh Moreland MD ([place]) Nephrology: Raghav Miller MD ([place]) 04/2015 presented with flank pain CT C/A/P: 11 cm anterior mediastinal mass, pleural effusion & L supraclav adenopathy Needle bx: classical hodgkins, nodular sclerosing type Thoracentesis: reactive/benign BMBx: neg PET: bulky mediastinal mass, SUV 16; bilateral neck SUV 15; also R>L pleural effusion 05/10/15 began ABVE-PC (as per pediatric [id number]) via femoral line 05/16/15 presented with sepsis [...] L neck: classical Hodgkins Above therapy in [place] -> moved to [place] [facility] - genetic testing for aHUS [...] sooner PRN s/s active bleeding HEENT: #Recent Coggon Tooth Extractions (~2-3 weeks DENTAL DETAIL REPRESENTATIVE): Nearly resolved -NS rinses PRN Pulmonary: Pretransplant PFTs completed on 06/25/16 (at [facility]) showed FEV1 of 86% pr edicted, FVC of 90% predicted and DLCO of 50% predicted. No acute issues Cardiovascular: Pretransplant MUGA completed on 06/24/16 (at [facility]) showed a LVEF of 5 5%. #RLE DVT (first noted 07/04/15, persists on 07/16 doppler in R axial calf): Apixaban DENTAL DETAIL REPRESENTATIVE -STOPPED Apixiban 5 mg BID on admission -Received Tx-dose Lovenox until plts <50K (07/15-07/25) -Lovenox 40 mg qpm while thrombocytopenic -See supportive care #Orthostatic HoTN (first noted 07/20): Sx improved with NS boluses but persistently Sx when getting OOB. (07/23) BCx NTD. -1L NS boluses PRN if asymptomatic -MIVF as below -Low threshold to start empiric ABx if worsens GI: #GERD: Pepcid DENTAL DETAIL REPRESENTATIVE -Prilosec 40 mg daily #Mucositis: pain without ulcerations, grade 2 -Continue oral care with normal saline rinses frequently -Liquid medications as able -Transition to IV meds if worsening PO intake -Dilaudid 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 initiated 07/27 -MIVF as below #[place]: Controlled -Benadryl 25 mg PO q 6 hrs -Zofran IV/PO q 12 hrs -Zyprexa 10 mg qhs -Ativan, Haldol PRN Renal: #Atypical HUS: Ecalizumab DENTAL DETAIL REPRESENTATIVE -Eculizumab q 2 weeks, next dose 08/09 -Monitor for hemolysis flare -Monitor LDH, hapto, complement activity qMon, Thurs Neuro/Psych: #Depression/Anxiety: Lexapro DENTAL DETAIL REPRESENTATIVE -Lexapro 10 mg daily -Ativan PRN Infectious [...] around Day +30 to +40 (or Daps [id number] mg po daily if sulfa allergic), pending [...] Anticipate 3-4 week hospitalization. Lluvia Gonzalez NP [address] Mailcode: [facility] [place] [id number] amar Wang MD - 07/29/2016 11:13 AM [...] 20K 5. Pain control for mucositis -conitnue 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 today See CLAUDINE documentation from today for complete details. Supportive care as outlined in NPP note and our orders from today CODE: FULL QAMAR WANG MD rn emergency room [facility] [email or web address] [email or web address] [phone] [email or web address] srinivasan MD - 07/28/2016 11:16 AM [...] S/Interval events: mucositis pain better controlled with 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. Maintaining po intake. Mild d [...] 07/23/2016 No growth to date. A/P: Meggan Nicoletimarcio is a 20 y.o. With relapsed HL [...] > 20K Pain control for mucositis -conitnue 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 today Counts at [facility] See CLAUDINE documentation from today for complete details. Supportive care as outlined in NPP note and our orders from today including: -antiemetics -transfusion support- PRBCs today -electrolyte replacement -prophylactic antimicrobials CODE: FULL QAMAR WANG MD rn emergency room [facility] Lehighton [email or web address] [phone] Lluvia Perry JAVA SOFTWARE DEVELOPER - 07/28/2016 10:32 AM PST Daily NPP Note - Auto Transplant Admit [facility] Attending: Qamar Wang MD [facility] Physician: Constantin Link MD PCP: Aashish Hilton MD Benign Hematology: Jim Michael MD ([facility]) Pediatric Heme/Onc: Anh Moreland MD ([place]) Nephrology: Raghav Miller MD ([place]) Date of Admission: 07/15/2016 Conditioning regimen: BEAM [...] pain, no ulceration: Stable today. Started Dilaudid 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 , continue MIVF d/t decreased [...] for autoBMT Local oncologist: Aashish Hilton MD ([facility]) Benign Hematology: Jim Michael MD ([facility]) Pediatric Heme/Onc: Anh Moreland MD ([place]) Nephrology: Raghav Miller MD ([place]) 04/2015 presented with flank pain CT C/A/P: 11 cm anterior mediastinal mass, pleural effusion & L supraclav adenopathy Needle bx: classical hodgkins, nodular sclerosing type Thoracentesis: reactive/benign BMBx: neg PET: bulky mediastinal mass, SUV 16; bilateral neck SUV 15; also R>L pleural effusion 05/10/15 began ABVE-PC (as per pediatric [id number]) via femoral line 05/16/15 presented with sepsis [...] L neck: classical Hodgkins Above therapy in [place] -> moved to [place] Continued on ecalizumab per benign heme ([facility]) [...] sooner PRN s/s active bleeding HEENT: #Recent Coggon Tooth Extractions (~2-3 weeks DENTAL DETAIL REPRESENTATIVE): Nearly resolved -NS rinses PRN Pulmonary: Pretransplant PFTs completed on 06/25/16 (at [facility]) showed FEV1 of 86% pr edicted, FVC of 90% predicted and DLCO of 50% predicted. No acute issues Cardiovascular: Pretransplant MUGA completed on 06/24/16 (at [facility]) showed a LVEF of 5 5%. #RLE DVT (first noted 07/04/15, persists on 07/16 doppler in R axial calf): Apixaban DENTAL DETAIL REPRESENTATIVE -STOPPED Apixiban 5 mg BID on admission -Received Tx-dose Lovenox until plts <50K (07/15-07/25) -Lovenox 40 mg qpm while thrombocytopenic -See supportive care #Orthostatic HoTN (first noted 07/20): Sx improved with NS boluses but persistently Sx when getting OOB. (07/23) BCx NTD. -1L NS boluses PRN if asymptomatic -MIVF as below -Low threshold to start empiric ABx if worsens GI: #GERD: Pepcid DENTAL DETAIL REPRESENTATIVE -Prilosec 40 mg daily #Mucositis: pain without ulcerations, grade 2 -Continue oral care with normal saline rinses frequently -Liquid medications as able -Transition to IV meds if worsening PO intake -Dilaudid 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 initiated 07/27 -MIVF as below #[place]: Controlled -Benadryl 25 mg PO q 6 hrs -Zofran IV/PO q 12 hrs -Zyprexa 10 mg qhs -Ativan, Haldol PRN Renal: #Atypical HUS: Ecalizumab DENTAL DETAIL REPRESENTATIVE -Eculizumab q 2 weeks, next dose 08/09 -Monitor for hemolysis flare -Monitor LDH, hapto, complement activity qMon, Thurs Neuro/Psych: #Depression/Anxiety: Lexapro DENTAL DETAIL REPRESENTATIVE -Lexapro 10 mg daily -Ativan PRN Infectious [...] around Day +30 to +40 (or Daps [id number] mg po daily if sulfa allergic), pending [...] Anticipate 3-4 week hospitalization. Lluvia Gonzalez NP [facility] [address] [facility] Mailcode: [id number] [place], [place] [id number] Qamar Hall MD - 07/27/2016 8:37 PM [...] thrombocytopenia) Pain control for mucositis -will add 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 today-reviewed with patient See CLAUDINE documentation from today for complete details. Supportive care as outlined in NPP note and our orders from today including: -antiemetics -transfusion support -electrolyte replacement -prophylactic antimicrobials CODE: FULL QAMAR WANG MD rn emergency room [email or web address] [phone] ain, Ignacio Bruce PA-C, MPAS - 07/27/2016 3:09 PM PST Daily NPP Note - Auto Transplant Admit [facility] Attending: Kenyatta Wang MD [facility] Physician: Constantin Link MD PCP: Aashish Hilton MD Benign Hematology: Jim Michael MD ([facility]) Pediatric Heme/Onc: Anh Moreland MD ([place]) Nephrology: Raghav Miller MD ([place]) Date of Admission: 07/15/2016 Conditioning regimen: BEAM Date of transplant: 07/21/2016 Reason for admission: Planned BEAM-conditioned auto PBSCT for HL 24-Hr Events/Daily Plan: -Relapsed HL: Adm for BEAM auto PBSCT -Pancytopenia d/t conditioning chemo: Keep plts >20K d/t anticoagulation, standard Hct mariano sfusion parameters. No transfusions today. -Atypical HUS: Conts Eculizumab q 2 weeks, next dose 07/26 (ordered in [facility]). Monitor for h emolysis flare. Monitor LDH, hapto, complement activity qMon, Thurs. -RLE DVT (first noted 07/04/15, persists on 07/16 doppler in R axial calf): Plts 40 today, s o decreased Lovenox to 40 mg qpm and will keep plts >20K. -Mucositis Grade 2: worsening overnight - start Dilaudid 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 07/27 -[place]: Mostly controlled with [...] for autoBMT Local oncologist: Aashish Hilton MD ([facility]ly [facility]) Benign Hematology: Jim Michael MD ([facility]) Pediatric Heme/Onc: Anh Moreland MD ([place]) Nephrology: Raghav Miller MD ([place]) 04/2015 presented with flank pain CT C/A/P: 11 cm anterior mediastinal mass, pleural effusion & L supraclav adenopathy Needle bx: classical hodgkins, nodular sclerosing type Thoracentesis: reactive/benign BMBx: neg PET: bulky mediastinal mass, SUV 16; bilateral neck SUV 15; also R>L pleural effusion 05/10/15 began ABVE-PC (as per pediatric [id number]) via femoral line 05/16/15 presented with sepsis [...] L neck: classical Hodgkins Above therapy in [place] -> moved to [place] Continued on ecalizumab per benign heme ([place]) [...] sooner PRN s/s active bleeding HEENT: #Recent Coggon Tooth Extractions (~2-3 weeks DENTAL DETAIL REPRESENTATIVE): Nearly resolved -NS rinses PRN Pulmonary: Pretransplant PFTs completed on 06/25/16 (at [facility]) showed FEV1 of 86% pr edicted, FVC of 90% predicted and DLCO of 50% predicted. No acute issues Cardiovascular: Pretransplant MUGA completed on 06/24/16 (at [facility]) showed a LVEF of 5 5%. #RLE DVT (first noted 07/04/15, persists on 07/16 doppler in R axial calf): Apixaban DENTAL DETAIL REPRESENTATIVE -STOPPED Apixiban 5 mg BID on admission -Received Tx-dose Lovenox until plts <50K (07/15-07/25) -Lovenox 40 mg qpm while thrombocytopenic -See supportive care #Orthostatic HoTN (first noted 07/20): Sx improved with NS boluses but persistently Sx when getting OOB -1L NS boluses PRN; last given x2 on 07/24 -(07/23) BCx: NTD -Low threshold to start empiric ABx if worsens GI: #GERD: Pepcid DENTAL DETAIL REPRESENTATIVE -Prilosec 40 mg daily #Mucositis - grade 2 (07/26) -Continue oral care with normal saline rinses frequently -Liquid medications as able -transition to IV if worsening PO intake #[place]: Controlled -Benadryl 25 mg PO q 6 hrs -Zofran IV/PO q 12 hrs -Zyprexa 10 mg qhs -Ativan, Haldol PRN Renal: #Atypical HUS: Ecalizumab DENTAL DETAIL REPRESENTATIVE -Eculizumab q 2 weeks, next dose 07/26 -Monitor for hemolysis flare -Monitor LDH, hapto, complement activity qMon, Thurs Neuro/Psych: #Depression/Anxiety: Lexapro DENTAL DETAIL REPRESENTATIVE -Lexapro 10 mg daily -Ativan PRN Infectious [...] around Day +30 to +40 (or Daps [id number] mg po daily if sulfa allergic), pending [...] week hospitalization. Ignacio Decker PA-C, [place] [id number] [facility] Mailcode: Kpv14 [place] [address] Yctihhznhcggjo signed by Ignacio Decker PA-C,JOSE RAMON at [...] -prophylactic antimicrobials CODE: FULL QAMAR WANG MD rn emergency room [facility] Center for Hematologic Malignancies [facility] [email or web address] [email or web address] [phone] ain, Ignacio Bruce PA-C, MPAS - 07/26/2016 1:18 PM PST Daily NPP Note - Auto Transplant Admit [facility] Attending: Kenyatta Wang MD [facility] Physician: Constantin Link MD PCP: Aashish Hilton MD Benign Hematology: Jim Michael MD ([facility]) Pediatric Heme/Onc: Anh Moreland MD ([place]) Nephrology: Raghav Miller MD ([place]) Date of Admission: 07/15/2016 Conditioning regimen: BEAM Date of transplant: 07/21/2016 Reason for admission: Planned BEAM-conditioned auto PBSCT for HL 24-Hr Events/Daily Plan: -Relapsed HL: Adm for BEAM auto PBSCT -Pancytopenia d/t conditioning chemo: Keep plts >20K d/t anticoagulation, standard Hct mariano sfusion parameters. No transfusions today. -Atypical HUS: Conts Eculizumab q 2 weeks, next dose 07/26 (ordered in [facility]). Monitor for h emolysis flare. Monitor [...] for autoBMT Local oncologist: Aashish Hilton MD (Formerly [facility]) Benign Hematology: Jim Michael MD ([facility]) Pediatric Heme/Onc: Anh Moreland MD ([place]) Nephrology: Raghav Miller MD ([place]) 04/2015 presented with flank pain CT C/A/P: 11 cm anterior mediastinal mass, pleural effusion & L supraclav adenopathy Needle bx: classical hodgkins, nodular sclerosing type Thoracentesis: reactive/benign BMBx: neg PET: bulky mediastinal mass, SUV 16; bilateral neck SUV 15; also R>L pleural effusion 05/10/15 began ABVE-PC (as per pediatric [id number]) via femoral line 05/16/15 presented with sepsis [...] L neck: classical Hodgkins Above therapy in [place] -> moved to [place] Continued on ecalizumab per benign heme ([place]) [...] sooner PRN s/s active bleeding HEENT: #Recent Coggon Tooth Extractions (~2-3 weeks DENTAL DETAIL REPRESENTATIVE): Nearly resolved -NS rinses PRN Pulmonary: Pretransplant PFTs completed on 06/25/16 (at [facility]) showed FEV1 of 86% pr edicted, FVC of 90% predicted and DLCO of 50% predicted. No acute issues Cardiovascular: Pretransplant MUGA completed on 06/24/16 (at [facility]) showed a LVEF of 5 5%. #RLE DVT (first noted 07/04/15, persists on 07/16 doppler in R axial calf): Apixaban DENTAL DETAIL REPRESENTATIVE -STOPPED Apixiban 5 mg BID on admission -Received Tx-dose Lovenox until plts <50K (07/15-07/25) -Lovenox 40 mg qpm while thrombocytopenic -See supportive care #Orthostatic HoTN (first noted 07/20): Sx improved with NS boluses but persistently Sx when getting OOB -1L NS boluses PRN; last given x2 on 07/24 -(07/23) BCx: NTD -Low threshold to start empiric ABx if worsens GI: #GERD: Pepcid DENTAL DETAIL REPRESENTATIVE -Prilosec 40 mg daily #Mucositis - grade 2 (07/26) -Continue oral care with normal saline rinses frequently -Liquid medications as able -transition to IV if worsening PO intake #[place]: Controlled -Benadryl 25 mg PO q 6 hrs -Zofran IV/PO q 12 hrs -Zyprexa 10 mg qhs -Ativan, Haldol PRN Renal: #Atypical HUS: Ecalizumab DENTAL DETAIL REPRESENTATIVE -Eculizumab q 2 weeks, next dose 07/26 -Monitor for hemolysis flare -Monitor LDH, hapto, complement activity qMon, Thurs Neuro/Psych: #Depression/Anxiety: Lexapro DENTAL DETAIL REPRESENTATIVE -Lexapro 10 mg daily -Ativan PRN Infectious [...] around Day +30 to +40 (or Daps [id number] mg po daily if sulfa allergic), pending [...] week hospitalization. Ignacio Decker PA-C, JOSE RAMON [facility] [address] [facility] Mailcode: Kpv14 [place], [place] [id number] l Mray Cabrera MD - 07/25/2016 1:53 PM PST [facility] Inpatient Service Inpatient Attending Progress Note [...] effusion 05/10/15 began ABVE-PC (as per pediatric [id number]) via femoral line 05/16/15 presented with sepsis [...] neck: classical Hodgkins - Above therapy in [place] -> moved to [facility]. [facility] - genetic testing for aHUS [...] with recovery of counts. Will return to [place]. Mary Pérez MD Pager: [phone] [facility] DEPARTMENT: [phone]- [facility] MPV Place of Service:- Inpatient Date of Service: 07/25/2016 Suggested CPT:49319 - Subsequent, Detailed/High complex Vandana Chance FNP - 07/25/2016 11:09 AM PSTFo rmatting of this note might be different from the original. Daily NPP Note - Auto Transplant Admit [facility] Attending: Mary Pérez MD [facility] Physician: Constantin Link MD PCP: Aashish Hilton MD Benign Hematology: Jim Michael MD ([facility]) Pediatric Heme/Onc: Anh Moreland MD ([place]) Nephrology: Raghav Miller MD ([place]) Date of Admission: 07/15/2016 Conditioning regimen: BEAM Date of transplant: 07/21/2016 Reason for admission: Planned BEAM-conditioned auto PBSCT for HL 24-Hr Events/Daily Plan: -Relapsed HL: Adm for BEAM auto PBSCT -Pancytopenia d/t conditioning chemo: Keep plts >20K d/t anticoagulation, standard Hct mariano sfusion parameters. Transfused 1 unit PRBCs today -Atypical HUS: Conts Eculizumab q 2 weeks, next dose 07/26 (ordered in [facility]). Monitor for h emolysis flare. Monitor [...] for autoBMT Local oncologist: Aashish Hilton MD ([facility]ly [facility]) Benign Hematology: Jim Michael MD ([facility]) Pediatric Heme/Onc: Anh Moreland MD ([place]) Nephrology: Raghav Miller MD ([place]) 04/2015 presented with flank pain CT C/A/P: 11 cm anterior mediastinal mass, pleural effusion & L supraclav adenopathy Needle bx: classical hodgkins, nodular sclerosing type Thoracentesis: reactive/benign BMBx: neg PET: bulky mediastinal mass, SUV 16; bilateral neck SUV 15; also R>L pleural effusion 05/10/15 began ABVE-PC (as per pediatric [id number]) via femoral line 05/16/15 presented with sepsis [...] L neck: classical Hodgkins Above therapy in [place] -> moved to [place] Continued on ecalizumab per benign heme ([place]) [...] sooner PRN s/s active bleeding HEENT: #Recent Coggon Tooth Extractions (~2-3 weeks DENTAL DETAIL REPRESENTATIVE): Nearly resolved -NS rinses PRN Pulmonary: Pretransplant PFTs completed on 06/25/16 (at [facility]) showed FEV1 of 86% pr edicted, FVC of 90% predicted and DLCO of 50% predicted. No acute issues Cardiovascular: Pretransplant MUGA completed on 06/24/16 (at [facility]) showed a LVEF of 5 5%. #RLE DVT (first noted 07/04/15, persists on 07/16 doppler in R axial calf): Apixaban DENTAL DETAIL REPRESENTATIVE -STOPPED Apixiban 5 mg BID on admission -Received Tx-dose Lovenox until plts <50K (07/15-07/25) -Lovenox 40 mg qpm while thrombocytopenic -See supportive care #Orthostatic HoTN (first noted 07/20): Sx improved with NS boluses but persistently Sx when getting OOB -1L NS boluses PRN; last given x2 on 07/24 -(07/23) BCx: NTD -Low threshold to start empiric ABx if worsens GI: #GERD: Pepcid DENTAL DETAIL REPRESENTATIVE -Prilosec 40 mg daily #Risk for Mucositis: No e/o mucositis currently -Continue oral care with normal saline rinses frequently #[place]: Controlled -Benadryl 25 mg PO q 6 hrs -Zofran IV/PO q 12 hrs -Zyprexa 10 mg qhs -Ativan, Haldol PRN Renal: #Atypical HUS: Ecalizumab DENTAL DETAIL REPRESENTATIVE -Eculizumab q 2 weeks, next dose 07/26 -Monitor for hemolysis flare -Monitor LDH, hapto, complement activity qMon, Thurs Neuro/Psych: #Depression/Anxiety: Lexapro DENTAL DETAIL REPRESENTATIVE -Lexapro 10 mg daily -Ativan PRN Infectious [...] around Day +30 to +40 (or Daps [id number] mg po daily if sulfa allergic), pending [...] PBSCT. Anticipate 3-4 week hospitalization. MORENA Marshall [facility] [address] [facility] Mailcode: v14 [place] [address] russell, MORENA Benz - 07/24/2016 3:43 PM PST Daily NPP Note - Auto Transplant Admit [facility] Attending: Mary Pérez MD [facility] Physician: Constantin Link MD PCP: Aashish Hilton MD Benign Hematology: Jim Michael MD ([facility]) Pediatric Heme/Onc: Anh Moreland MD ([place]) Nephrology: Raghav Miller MD ([place]) Date of Admission: 07/15/2016 Conditioning regimen: BEAM Date of transplant: 07/21/2016 Reason for admission: Planned BEAM-conditioned auto PBSCT for HL 24-Hr Events/Daily Plan: -Relapsed HL: Adm for BEAM auto PBSCT -Pancytopenia d/t conditioning chemo: Above standard transfusion threshold. -Atypical HUS: Conts Eculizumab q 2 weeks, next dose 07/26 (ordered in [facility]). Monitor for h emolysis flare. Monitor [...] for autoBMT Local oncologist: Aashish Hilton MD ([facility]) Benign Hematology: Jim Michael MD ([facility]) Pediatric Heme/Onc: Anh Moreland MD ([place]) Nephrology: Raghav Miller MD ([place]) 04/2015 presented with flank pain CT C/A/P: 11 cm anterior mediastinal mass, pleural effusion & L supraclav adenopathy Needle bx: classical hodgkins, nodular sclerosing type Thoracentesis: reactive/benign BMBx: neg PET: bulky mediastinal mass, SUV 16; bilateral neck SUV 15; also R>L pleural effusion 05/10/15 began ABVE-PC (as per pediatric [id number]) via femoral line 05/16/15 presented with sepsis [...] L neck: classical Hodgkins Above therapy in [place] -> moved to [place] [facility] - genetic testing for aHUS [...] sooner PRN s/s active bleeding HEENT: #Recent Coggon Tooth Extractions (~2-3 weeks DENTAL DETAIL REPRESENTATIVE): Nearly resolved -NS rinses PRN Pulmonary: Pretransplant PFTs completed on 06/25/16 (at [facility]) showed FEV1 of 86% pr edicted, FVC of 90% predicted and DLCO of 50% predicted. No acute issues Cardiovascular: Pretransplant MUGA completed on 06/24/16 (at [facility]) showed a LVEF of 5 5%. #RLE DVT (first noted 07/04/15, persists on 07/16 doppler in R axial calf): Apixaban DENTAL DETAIL REPRESENTATIVE -STOPPED Apixiban 5 mg BID on admission -Tx-dose Lovenox until plts <50K, then decrease to prophy dose Lovenox -See supportive care #Orthostatic HoTN (first noted 07/20): Sx improved with NS boluses but persistently Sx when getting OOB -1L NS boluses PRN; last given x2 on 07/24 -(07/23) BCx: NTD -Low threshold to start empiric ABx if persists GI: #GERD: Pepcid DENTAL DETAIL REPRESENTATIVE -Prilosec 40 mg daily #Risk for Mucositis: No e/o mucositis currently -Continue oral care with normal saline rinses frequently #[place]: Controlled -Benadryl 25 mg PO q 6 hrs -Zofran IV/PO q 12 hrs -Zyprexa 10 mg qhs -Ativan, Haldol PRN Renal: #Atypical HUS: Ecalizumab DENTAL DETAIL REPRESENTATIVE -Eculizumab q 2 weeks, next dose 07/26 -Monitor for hemolysis flare -Monitor LDH, hapto, complement activity qMon, Thurs Neuro/Psych: #Depression/Anxiety: Lexapro DENTAL DETAIL REPRESENTATIVE -Lexapro 10 mg daily -Ativan PRN Infectious [...] around Day +30 to +40 (or Daps [id number] mg po daily if sulfa allergic), pending [...] PBSCT. Anticipate 3-4 week hospitalization. MORENA Marshall [address] [facility] Mailcode: Kpv14 [place] [address] l Indiana Cabrera MD - 07/24/2016 2:19 PM PSTFormatting of this note might be different from the [facility] Inpatient Service Inpatient Attending Progress Note Date: [...] effusion 05/10/15 began ABVE-PC (as per pediatric [id number]) via femoral line 05/16/15 presented with sepsis [...] neck: classical Hodgkins - Above therapy in [place] -> moved to [facility]. Continued on ecalizumab per benign heme ([place]) [...] with recovery of counts. Will return to [place]. Mary Pérez MD Pager: [phone] [facility] DEPARTMENT: [phone]- [facility] Place of Service:- Inpatient Date of Service: 07/24/2016 Suggested CPT:45132 - Subsequent, Detailed/High complex Vandana Chance FNP - 07/23/2016 4:01 PM PSTFo rmatting of this note might be different from the original. Daily NPP Note - Auto Transplant Admit [facility] Attending: Emery Chilel MD [facility] Physician: Constantin Link MD PCP: Aashish Hilton MD Benign Hematology: Jim Michael MD ([facility]) Pediatric Heme/Onc: Anh Moreland MD ([place]) Nephrology: Raghav Miller MD ([place]) Date of Admission: 07/15/2016 Conditioning regimen: BEAM Date of transplant: 07/21/2016 Reason for admission: Planned BEAM-conditioned auto PBSCT for HL 24-Hr Events/Daily Plan: -Relapsed HL: Adm for BEAM auto PBSCT -Pancytopenia d/t conditioning chemo: Above standard transfusion threshold. -Atypical HUS: Conts Eculizumab q 2 weeks, next dose 07/26 (ordered in [facility]). Monitor for h emolysis flare. Monitor [...] for autoBMT Local oncologist: Aashish Hilton MD ([facility]) Benign Hematology: Jim Michael MD ([facility]) Pediatric Heme/Onc: Anh Moreland MD ([place]) Nephrology: Raghav Miller MD ([place]) 04/2015 presented with flank pain CT C/A/P: 11 cm anterior mediastinal mass, pleural effusion & L supraclav adenopathy Needle bx: classical hodgkins, nodular sclerosing type Thoracentesis: reactive/benign BMBx: neg PET: bulky mediastinal mass, SUV 16; bilateral neck SUV 15; also R>L pleural effusion 05/10/15 began ABVE-PC (as per pediatric [id number]) via femoral line 05/16/15 presented with sepsis [...] L neck: classical Hodgkins Above therapy in [place] -> moved to [place] Continued on ecalizumab per benign heme ([place]) [...] sooner PRN s/s active bleeding HEENT: #Recent Coggon Tooth Extractions (~2-3 weeks DENTAL DETAIL REPRESENTATIVE): Nearly resolved -NS rinses PRN Pulmonary: Pretransplant PFTs completed on 06/25/16 (at [facility]) showed FEV1 of 86% pr edicted, FVC of 90% predicted and DLCO of 50% predicted. No acute issues Cardiovascular: Pretransplant MUGA completed on 06/24/16 (at [facility]) showed a LVEF of 5 5%. #RLE DVT (first noted 07/04/15, persists on 07/16 doppler in R axial calf): Apixaban DENTAL DETAIL REPRESENTATIVE -STOPPED Apixiban 5 mg BID on admission -Tx-dose Lovenox until plts <50K, then decrease to prophy dose Lovenox -See supportive care #Orthostatic HoTN (first noted 07/20, then SBP briefly in 80s overnight on 07/22): Sx improve d with 1L NS bolus but persistently tachycardic on rounds 07/23. -NS boluses PRN; last given 07/23 -(07/23) BCx PENDING GI: #GERD: Pepcid DENTAL DETAIL REPRESENTATIVE -Prilosec 40 mg daily #Risk for Mucositis: No e/o mucositis currently -Continue oral care with normal saline rinses frequently #[place]: Controlled -Benadryl 25 mg PO q 6 hrs -Zofran IV/PO q 12 hrs -Ativan, Haldol PRN Renal: #Atypical HUS: Ecalizumab DENTAL DETAIL REPRESENTATIVE -Eculizumab q 2 weeks, next dose 07/26 -Monitor for hemolysis flare -Monitor LDH, hapto, complement activity qMon, Thurs Neuro/Psych: #Depression/Anxiety: Lexapro DENTAL DETAIL REPRESENTATIVE -Lexapro 10 mg daily -Ativan PRN Infectious [...] around Day +30 to +40 (or Daps [id number] mg po daily if sulfa allergic), pending [...] PBSCT. Anticipate 3-4 week hospitalization. MORENA Marshall [facility] [address] [facility] Mailcode: [facility] [place] [address] l Indiana Cabrera MD - 07/23/2016 3:03 PM PSTFormatting of this note might be different from the origin al. [facility] Inpatient Service Inpatient Attending Progress Note [...] effusion 05/10/15 began ABVE-PC (as per pediatric [id number]) via femoral line 05/16/15 presented with sepsis [...] neck: classical Hodgkins - Above therapy in [place] -> moved to [facility]. Continued on ecalizumab per benign heme ([place]) - genetic testing for aHUS PENDING GDP x3 06/2017 CR by PET - Goomdan placed - GCSF stem cell mobilization: 7.3 [...] 0.0 EOSPERC 0.0* 0.0* 0.0* Assessment: Meggan Oteor is a 20 y.o. F w/ hx [...] with recovery of counts Will return to [place]. Mary Pérez MD Pager: [phone] [facility] DEPARTMENT: [phone]- [facility] Place of Service:- Inpatient Date of Service: 07/23/2016 Suggested CPT:31877 - Subsequent, Detailed/High complex ain, Ignacio Bruce PA-C,MPAS - 07/22/2016 3:52 PM PSTFormat ting of this note might be different from the original. Daily NPP Note - Auto Transplant Admit [facility] Attending: Emery Chilel MD [facility] Physician: Constantin Link MD PCP: Aashish Hilton MD Benign Hematology: Jim Michael MD ([facility]) Pediatric Heme/Onc: Anh Moreland MD ([place]) Nephrology: Raghav Miller MD ([place]) Date of Admission: 07/15/2016 Conditioning regimen: BEAM [...] for autoBMT Local oncologist: Aashish Hilton MD ([facility]) Benign Hematology: Jim Michael MD ([facility]) Pediatric Heme/Onc: Anh Moreland MD ([place]) Nephrology: Raghav Miller MD ([place]) 04/2015 presented with flank pain CT C/A/P: 11 cm anterior mediastinal mass, pleural effusion & L supraclav adenopathy Needle bx: classical hodgkins, nodular sclerosing type Thoracentesis: reactive/benign BMBx: neg PET: bulky mediastinal mass, SUV 16; bilateral neck SUV 15; also R>L pleural effusion 05/10/15 began ABVE-PC (as per pediatric [id number]) via femoral line 05/16/15 presented with sepsis [...] L neck: classical Hodgkins Above therapy in [place] -> moved to [place] Continued on ecalizumab per benign heme ([place]) [...] sooner PRN s/s active bleeding HEENT: #Recent Coggon Tooth Extractions (~2-3 weeks DENTAL DETAIL REPRESENTATIVE): Nearly resolved -NS rinses PRN Pulmonary: Pretransplant PFTs completed on 06/25/16 (at [facility]) showed FEV1 of 86% pr edicted, FVC of 90% predicted and DLCO of 50% predicted. No acute issues Cardiovascular: Pretransplant MUGA completed on 06/24/16 (at [facility]) showed a LVEF of 5 5%. #RLE DVT (first noted 07/04/15, persists on 07/16 doppler in R axial calf): Apixaban DENTAL DETAIL REPRESENTATIVE -STOPPED Apixiban 5 mg BID on admission -Tx-dose Lovenox until plts <50K, then decrease to prophy dose Lovenox -See supportive care #Orthostatic HoTN: noted 07/20, give 500 mL fluid bolus. RESOLVED GI: #GERD: Pepcid DENTAL DETAIL REPRESENTATIVE -Prilosec 40 mg daily #Risk for Mucositis: No e/o mucositis currently -Continue oral care with normal saline rinses frequently #[place]: -continue PRN ativan and benadryl Renal: #Atypical HUS: Ecalizumab DENTAL DETAIL REPRESENTATIVE -Eculizumab q 2 weeks, next dose 07/26 -Monitor for hemolysis flare -Monitor LDH, hapto, complement activity qMon, Thurs Neuro/Psych: #Depression/Anxiety: Lexapro DENTAL DETAIL REPRESENTATIVE -Lexapro 10 mg daily -Ativan PRN Infectious [...] around Day +30 to +40 (or Daps [id number] mg po daily if sulfa allergic), pending [...] week hospitalization. Ignacio Decker PA-C, JOSE RAMON [facility] [address] [facility] Mailcode: [address] [place] [address] Mary Jaeger MD - 07/22/2016 8:54 AM PST [facility] Inpatient Service Inpatient Attending Progress Note [...] effusion 05/10/15 began ABVE-PC (as per pediatric [id number]) via femoral line 05/16/15 presented with sepsis [...] neck: classical Hodgkins - Above therapy in [place] -> moved to [facility] Continued on ecalizumab per benign heme ([place]) [...] with recovery of counts Will return to [place]. Mary Pérez MD Pager: [phone] [facility] DEPARTMENT: [phone]- [facility] Place of Service:- Inpatient Date of Service: 07/22/2016 Suggested CPT:72344 - Subsequent, Detailed/High complex Trinity Us ANP - 07/21/2016 1:18 PM PSTVanesa max of this note might be different from the original. Daily NPP Note - Auto Transplant Admit [facility] Attending: Emery Chilel MD [facility] Physician: Constantin Link MD PCP: Aashish Hilton MD Benign Hematology: Jim Michael MD ([facility]) Pediatric Heme/Onc: Anh Moreland MD ([place]) Nephrology: Raghav Miller MD ([place]) Date of Admission: 07/15/2016 Conditioning regimen: BEAM [...] for autoBMT Local oncologist: Aashish Hilton MD (Formerly [facility]) Benign Hematology: Jim Michael MD ([facility]) Pediatric Heme/Onc: Anh Moreland MD ([place]) Nephrology: Raghav Miller MD ([place]) 04/2015 presented with flank pain CT C/A/P: 11 cm anterior mediastinal mass, pleural effusion & L supraclav adenopathy Needle bx: classical hodgkins, nodular sclerosing type Thoracentesis: reactive/benign BMBx: neg PET: bulky mediastinal mass, SUV 16; bilateral neck SUV 15; also R>L pleural effusion 05/10/15 began ABVE-PC (as per pediatric [id number]) via femoral line 05/16/15 presented with sepsis [...] L neck: classical Hodgkins Above therapy in [place] -> moved to [place] Continued on ecalizumab per benign heme ([facility]rianna) [...] sooner PRN s/s active bleeding HEENT: #Recent Coggon Tooth Extractions (~2-3 weeks DENTAL DETAIL REPRESENTATIVE): Nearly resolved -NS rinses PRN Pulmonary: Pretransplant PFTs completed on 06/25/16 (at [facility]) showed FEV1 of 86% pr edicted, FVC of 90% predicted and DLCO of 50% predicted. No acute issues Cardiovascular: Pretransplant MUGA completed on 06/24/16 (at [facility]) showed a LVEF of 5 5%. #RLE DVT (first noted 07/04/15, persists on 07/16 doppler in R axial calf): Apixaban DENTAL DETAIL REPRESENTATIVE -STOPPED Apixiban 5 mg BID on admission -Tx-dose Lovenox until plts <50K, then decrease to prophy dose Lovenox -See supportive care #Orthostatic HoTN: noted 07/20, give 500 mL fluid bolus. RESOLVED GI: #GERD: Pepcid DENTAL DETAIL REPRESENTATIVE -Prilosec 40 mg daily #Risk for Mucositis: No e/o mucositis currently -Continue oral care with normal saline rinses frequently #[place]: -continue PRN ativan and benadryl Renal: #Atypical HUS: Ecalizumab DENTAL DETAIL REPRESENTATIVE -Eculizumab q 2 weeks, next dose 07/26 -Monitor for hemolysis flare -Monitor LDH, hapto, complement activity qMon, Thurs Neuro/Psych: #Depression/Anxiety: Lexapro DENTAL DETAIL REPRESENTATIVE -Lexapro 10 mg daily -Ativan PRN Infectious [...] around Day +30 to +40 (or Daps [id number] mg po daily if sulfa allergic), pending [...] Anticipate 3-4 week hospitalization. KRISHNA Valverde ANP [place] [address] [facility] Mailcode: [facility] [place] [address] Emery Durán MD - 07/21/2016 1:06 PM [...] discussion of issues regarding stem cell infusion. [facility] DEPARTMENT: [id number] - [facility] FACULTY MPV Place of Service: - Inpatient Date of Service: 07/21/2016 Suggested CPT: 04306 - Subsequent, Exp Prob Foc/Mod Complex anning, JASMIN Pantoja - 07/20/2016 3:12 PM PST Daily NPP Note - Auto Transplant Admit [facility] Attending: Emery Chilel MD [facility] Physician: Constantin Link MD PCP: Aashish Hilton MD Benign Hematology: Jim Michael MD ([facility]) Pediatric Heme/Onc: Anh Moreland MD ([place]) Nephrology: Raghav Miller MD ([place]) Date of Admission: 07/15/2016 Conditioning regimen: BEAM [...] for autoBMT Local oncologist: Aashish Hilton MD (Formerly [facility]) Benign Hematology: Jim Michael MD ([facility]) Pediatric Heme/Onc: Anh Moreland MD ([place]) Nephrology: Raghav Miller MD ([place]) 04/2015 presented with flank pain CT C/A/P: 11 cm anterior mediastinal mass, pleural effusion & L supraclav adenopathy Needle bx: classical hodgkins, nodular sclerosing type Thoracentesis: reactive/benign BMBx: neg PET: bulky mediastinal mass, SUV 16; bilateral neck SUV 15; also R>L pleural effusion 05/10/15 began ABVE-PC (as per pediatric [id number]) via femoral line 05/16/15 presented with sepsis [...] L neck: classical Hodgkins Above therapy in [place] -> moved to [place] Continued on ecalizumab per benign heme ([facility]) - genetic testing for aHUS PENDING GDP [...] sooner PRN s/s active bleeding HEENT: #Recent Coggon Tooth Extractions (~2-3 weeks DENTAL DETAIL REPRESENTATIVE): Nearly resolved -NS rinses PRN Pulmonary: Pretransplant PFTs completed on 06/25/16 (at [facility]) showed FEV1 of 86% pr edicted, FVC of 90% predicted and DLCO of 50% predicted. No acute issues Cardiovascular: Pretransplant MUGA completed on 06/24/16 (at [facility]) showed a LVEF of 5 5%. #RLE DVT (first noted 07/04/15, persists on 07/16 doppler in R axial calf): Apixaban DENTAL DETAIL REPRESENTATIVE -STOPPED Apixiban 5 mg BID on admission -Tx-dose Lovenox until plts <50K, then decrease to prophy dose Lovenox -See supportive care GI: #GERD: Pepcid DENTAL DETAIL REPRESENTATIVE -Prilosec 40 mg daily #Risk for Mucositis: No e/o mucositis currently -Continue oral care with normal saline rinses frequently Renal: #Atypical HUS: Ecalizumab DENTAL DETAIL REPRESENTATIVE -Eculizumab q 2 weeks, next dose 07/26 -Monitor for hemolysis flare -Monitor LDH, hapto, complement activity qMon, Thurs Neuro/Psych: #Depression/Anxiety: Lexapro DENTAL DETAIL REPRESENTATIVE -Lexapro 10 mg daily -Ativan PRN Infectious [...] around Day +30 to +40 (or Daps [id number] mg po daily if sulfa allergic), pending [...] PBSCT. Anticipate 3-4 week hospitalization. JASMIN Cat [facility] [address] [facility] Mailcode: [address] [place], [place] [id number] Emery Durán MD - 07/20/2016 11:10 AM [...] stem cell infusion, monitoring, timing and plan. [facility] DEPARTMENT: [id number] - [facility] FACULTY MPV Place of Service: - Inpatient Date of Service: 07/20/2016 Suggested CPT: 44504 - Subsequent, Detailed/High complex Jessica Lomax MD - 07/19/2016 12:39 PM PST Hematologic Malignancies Attending Inpatient Progress Note: Meggan Otero is a 20 y.o. 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, admit for autoBMT Local oncologist: Aashish Hilton MD ([facility]ly [facility]) Benign Hematology: Jim Michael MD ([facility]) Pediatric Heme/Onc: Anh Moreland MD ([place]) Nephrology: Raghav Miller MD ([place]) 04/2015 presented with flank pain CT C/A/P: 11 cm anterior mediastinal mass, pleural effusion & L supraclav adenopathy Needle bx: classical hodgkins, nodular sclerosing type Thoracentesis: reactive/benign BMBx: neg PET: bulky mediastinal mass, SUV 16; bilateral neck SUV 15; also R>L pleural effusion 05/10/15 began ABVE-PC (as per pediatric [id number]) via femoral line 05/16/15 presented with sepsis [...] L neck: classical Hodgkins Above therapy in [place] -> moved to [place] Continued on ecalizumab per benign heme ([facility]) [...] Progress Note:I rounded today in conjunction w [facility] CLAUDINE I saw the patient, reviewed the history and various studies and developed the assessment an d plan. Please see the CLAUDINE documentation from today for details Meggan Otero is a 20 y.o. 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, admit for autoBMT Local oncologist: Aashish Hilton MD ([facility]ly [facility]) Benign Hematology: Jim Michael MD ([facility]) Pediatric Heme/Onc: Anh Moreland MD ([place]) Nephrology: Raghav Miller MD ([place]) 04/2015 presented with flank pain CT C/A/P: 11 cm anterior mediastinal mass, pleural effusion & L supraclav adenopathy Needle bx: classical hodgkins, nodular sclerosing type Thoracentesis: reactive/benign BMBx: neg PET: bulky mediastinal mass, SUV 16; bilateral neck SUV 15; also R>L pleural effusion 05/10/15 began ABVE-PC (as per pediatric [id number]) via femoral line 05/16/15 presented with sepsis [...] L neck: classical Hodgkins Above therapy in [place] -> moved to [place] Continued on ecalizumab per benign heme ([facility]) - genetic testing for aHUS PENDING GDP x3 06/2017 CR by PET Goodman placed GCSF stem cell mobilization: 7.3 x10^6 cd34/kg S> Patient doing well. She is noting some nausea, no vomiting. No shortness of breath, dysp delilah on exertion or chest pain. No fevers. 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 Left cervical lymph node, biopsy ([id number], 03/16/2016): - Nodular sclerosis, classical Hodgkin's lymphoma [...] Chemotherapy-induced nausea Jessica Mac MD illa Chang, [employer] - 07/17/2016 2:51 PM PSTFormatting of this note might be different from the orig inal. Daily NPP Note - Auto Transplant Admit [facility] Attending: Jessica Mac MD [facility] Physician: Constantin Link MD PCP: Aashish Hilton MD Benign Hematology: Jim Michael MD ([facility]) Pediatric Heme/Onc: Anh Moreland MD ([place]) Nephrology: Raghav Miller MD ([place]) Date of Admission: 07/15/2016 Conditioning regimen: BEAM [...] for autoBMT Local oncologist: Aashish Hilton MD ([facility]ly [facility]) Benign Hematology: Jim Michael MD ([facility]) Pediatric Heme/Onc: Anh Moreland MD ([place]) Nephrology: Raghav Miller MD ([place]) 04/2015 presented with flank pain CT C/A/P: 11 cm anterior mediastinal mass, pleural effusion & L supraclav adenopathy Needle bx: classical hodgkins, nodular sclerosing type Thoracentesis: reactive/benign BMBx: neg PET: bulky mediastinal mass, SUV 16; bilateral neck SUV 15; also R>L pleural effusion 05/10/15 began ABVE-PC (as per pediatric [id number]) via femoral line 05/16/15 presented with sepsis [...] L neck: classical Hodgkins Above therapy in [place] -> moved to [place] Continued on ecalizumab per benign heme ([facility]) [...] sooner PRN s/s active bleeding HEENT: #Recent Coggon Tooth Extractions (~2-3 weeks DENTAL DETAIL REPRESENTATIVE): Nearly resolved -NS rinses PRN Pulmonary: Pretransplant PFTs completed on 06/25/16 (at [facility]) showed FEV1 of 86% pr edicted, FVC of 90% predicted and DLCO of 50% predicted. No acute issues Cardiovascular: Pretransplant MUGA completed on 06/24/16 (at [facility]) showed a LVEF of 5 5%. #RLE DVT (first noted 07/04/15, persists on 07/16 doppler in R axial calf): Apixaban DENTAL DETAIL REPRESENTATIVE -STOPPED Apixiban 5 mg BID on admission -Tx-dose Lovenox until plts <50K, then decrease to prophy dose Lovenox -See supportive care GI: #GERD: Pepcid DENTAL DETAIL REPRESENTATIVE -Prilosec 40 mg daily #Risk for Mucositis: No e/o mucositis currently -Continue oral care with normal saline rinses frequently Renal: #Atypical HUS: Ecalizumab DENTAL DETAIL REPRESENTATIVE -Eculizumab q 2 weeks, next dose 07/26 -Monitor for hemolysis flare -Monitor LDH, hapto, complement activity qMon, Thurs Musculoskeletal: No acute issues Neuro/Psych: #Depression/Anxiety: Lexapro DENTAL DETAIL REPRESENTATIVE -Lexapro 10 mg daily -Ativan PRN Skin: [...] around Day +30 to +40 (or Daps [id number] mg po daily if sulfa allergic), pending [...] PBSCT. Anticipate 3-4 week hospitalization. MORENA Marshall [facility] [address]K [address] [facility] Mailcode: [address] [place] [address] Yesi Lomax MD - 07/17/2016 9:59 AM PSTFormatting of this note might be different from the orig inal. Hematologic Malignancies Attending Inpatient Progress Note:I rounded today in conjunction w [facility] Onc[facility] CLAUDINE I saw the patient, reviewed the history and various studies and developed the assessment an d plan. Please see the CLAUDINE documentation from today for details Meggan Otero is a 20 y.o. 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, admit for autoBMT Local oncologist: Aashish Hilton MD ([facility]ly [facility]) Benign Hematology: Jim Michael MD ([facility]) Pediatric Heme/Onc: Anh Moreland MD ([place]) Nephrology: Raghav Miller MD ([place]) 04/2015 presented with flank pain CT C/A/P: 11 cm anterior mediastinal mass, pleural effusion & L supraclav adenopathy Needle bx: classical hodgkins, nodular sclerosing type Thoracentesis: reactive/benign BMBx: neg PET: bulky mediastinal mass, SUV 16; bilateral neck SUV 15; also R>L pleural effusion 05/10/15 began ABVE-PC (as per pediatric [id number]) via femoral line 05/16/15 presented with sepsis [...] L neck: classical Hodgkins Above therapy in [place] -> moved to [place] Continued on ecalizumab per benign heme ([facility]) - genetic testing for aHUS PENDING GDP x3 06/2017 CR by PET Goodman placed GCSF stem cell mobilization: 7.3 x10^6 cd34/kg S> Patient doing well. No shortness of breath, dyspnea on exertion or chest pain. Some naus ea, no vomiting. 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 Left cervical lymph node, biopsy ([id number], 03/16/2016): - Nodular sclerosis, classical Hodgkin's lymphoma [...] | + + + + + | [email or web address] | [address] | [place] [address] | | | SERVICES, CORE | PARK [...] + + + + | PRODUCT | [id number] | | [facility] | | | UNIT [...] + + + + | EXPIRATION | [id number] | | [facility] | | | DATE [...] + + + + | BLOOD | [id number] | | [facility] | | | PRODUCT [...] | + + + + + | [facility] | [address] | [place] [address] | | | SERVICES, | [address] [...] [facility] | [address] | [place] [address] | | | SERVICES, | [address] [...] [facility] | [address] | [place] [address] | | | SERVICES, | [address] [...] [facility] | [address] | [place] [address] | | | SERVICES, CORE | PARK [...] | + + + + + | [facility] | [address] | [place] [address] | | | [address] | ALVA [...] [facility] | [address] | [place] [address] | | | SERVICES, CORE | PARK [...] | + + + + + | [facility] | [address] | [place] [address] | | | SERVICES, CORE | ALVA [...] | | | LABORATORY | | | MAURITIAN | | | SERVICES, | | | [...] | + + + + + | [facility] | [address] | [place] [address] | | | SERVICES, CORE | ALVA [...] [facility] | [address] | [place] [address] | | | SERVICES, CORE | ALVA [...] + + + + | PRODUCT | [id number] | | [facility] | | | UNIT [...] + + + + | EXPIRATION | [id number] | | [facility] | | | DATE [...] + + + + | BLOOD | [id number] | | [facility] | | | PRODUCT [...] [facility] | [address] | [place] [address] | | | SERVICES, | [address] [...] [facility] | [address] | [place] [address] | | | SERVICES, CORE | PARK [...] [facility] | [address] | [place] [address] | | | SERVICES, CORE | PARK [...] | + + + + + | [facility] | [address] | [place] [address] | | | SERVICES, CORE | ALVA [...] [facility] | [address] | [place] [address] | | | SERVICES, CORE | ALVA [...] | | | LABORATORY | | | MAURITIAN | | | SERVICES, | | | [...] the MDRD equation recommended by the | [facility] | | National Kidney Disease Education Program. [...] | + + + + + | [facility] | [address] | [place] [address] | | | SERVICES, CORE | ALVA [...] + + + + | PRODUCT | [id number] | | [facility] | | | UNIT [...] + + + + | EXPIRATION | [id number] | | [facility] | | | DATE [...] + + + + | BLOOD | [id number] | | [facility] | | | PRODUCT [...] [facility] | [address] | [place] [address] | | | SERVICES, | [address] [...] | + + + + + | [facility] | [address] | [place] [address] | | | SERVICES, CORE | PARK [...] | + + + + + | [email or web address] | [address] | [place] [address] | | | SERVICES, CORE | PARK [...] [facility] | [address] | [place] [address] | | | SERVICES, CORE | PARK [...] | + + + + + | [facility] | [address] | [place] [address] | | | SERVICES, CORE | PARK [...] | + + + + + | [facility] | [address] | [place] [address] | | | SERVICES, CORE | ALVA [...] | | | LABORATORY | | | MAURITIAN | | | SERVICES, | | | [...] [facility] | [address] | [place] [address] | | | SERVICES, CORE | PARK [...] [facility] | [address] | [place] [address] | | | SERVICES, CORE | PARK [...] + + + + + | [place] [facility] | [address] | [place] [address] | | | [place] | | | [...] | | | | | | [place], [facility] [place] [address] | | | | | | [phone]. | | | | | | jeimy, [...] [facility] | [address] | [place], [place] | | | [facility] | | [address] | | + + + + + [...] correct patient, | | | procedure, equipment, manager sales support and site/side marked as | | | [...] vein. Catheter lot | | | number: [id number] with a length of 55 cm was [...] + + + + | PRODUCT | [id number] | | [facility] | | | UNIT [...] + + + + | EXPIRATION | [id number] | | [facility] | | | DATE [...] + + + + | BLOOD | [id number] | | [facility] | | | PRODUCT [...] | + + + + + | [facility] | [address] | [place] [address] | | | SERVICES, | [address] [...] LABORATORY | [address] | [place] [address] | | | SERVICES, CORE | PARK [...] [facility] | [address] | [place] [address] | | | SERVICES, CORE | PARK [...] | + + + + + | [facility] | [address] | [place] [address] | | | SERVICES, CORE | ALVA [...] [facility] | [address] | [place] [address] | | | SERVICES, CORE | ALVA [...] | | | LABORATORY | | | MAURITIAN | | | SERVICES, | | | [...] the MDRD equation recommended by the | [facility] | | National Kidney Disease Education Program. [...] | + + + + + | [facility] | [address] | [place] [address] | | | SERVICES, CORE | PARK [...] [facility] | [address] | [place] [address] | | | [address] | AVLA [...] + + + + | PRODUCT | [id number] | | [facility] | | | UNIT [...] + + + + | EXPIRATION | [id number] | | [facility] | | | DATE [...] + + + + | BLOOD | [id number] | | [facility] | | | PRODUCT [...] [facility] | [address] | [place] [address] | | | SERVICES, | [address] [...] | + + + + + | [facility] | [address] | [place] [address] | | | SERVICES, SCOOBY | ALVA [...] [facility] | [address] | [place] [address] | | | [address] | ALVA [...] [facility] | [address] | [place] [address] | | | SERVICES, CORE | PARK [...] | + + + + + | [facility] | [address] | [place] [address] | | | SERVICES, CORE | ALVA [...] [facility] | [address] | [place] [address] | | | [address] | ALVA [...] | | | LABORATORY | | | MAURITIAN | | | SERVICES, | | | [...] the MDRD equation recommended by the | [facility] | | National Kidney Disease Education Program. [...] | + + + + + | [facility] | [address] | [place] [address] | | | SERVICES, CORE | PARK [...] + + | [facility] | [address] | [place] [address] | | | SERVICES, SCOOBY | ALVA [...] [facility] | [address] | [place] [address] | | | SERVICES, CORE | PARK [...] | + + + + + | [facility] | [address] | [place] [address] | | | SERVICES, CORE | PARK [...] [facility] | [address] | [place] [address] | | | SERVICES, CORE | ALVA [...] | + + + + + | [facility] | [address] | [place] [address] | | | SERVICES, CORE | PARK [...] | + + + + + | [facility] | [address] | [place] [address] | | | SERVICES, CORE | ALVA [...] | | | LABORATORY | | | MAURITIAN | | | SERVICES, | | | [...] + + | [facility] | [address] | [place] [address] | | | SERVICES, CORE | ALVA [...] [facility] | [address] | [place] [address] | | | SERVICES, CORE | PARK [...] | + + + + + | [facility] - | [address] | [place] [address] | | | [place] | | | | + + + [...] | | | | | | Cory, [place] [address] | | | | | | [phone]. | | | | | | jeimy, [...] [facility] | [address] | [place], [place] | | | [facility] | | [address] | | + + + + + [...] [facility] | [address] | [place] [address] | | | SERVICESSCOOBY | [address] [...] + + + + | PRODUCT | [id number] | | [facility] | | | UNIT [...] + + + + | EXPIRATION | [id number] | | [facility] | | | DATE [...] + + + + | BLOOD | [id number] | | [facility] | | | PRODUCT [...] [facility] | [address] | [place] [address] | | | SERVICES, | [address] [...] [facility] | [address] | [place] [address] | | | SERVICES, CORE | PARK [...] [facility] | [address] | [place] [address] | | | SERVICES, CORE | PARK [...] | + + + + + | [facility] | [address] | [place] [address] | | | SERVICES, CORE | PARK [...] [facility] | [address] | [place] [address] | | | [address] | ALVA [...] | | | LABORATORY | | | MAURITIAN | | | SERVICES, | | | [...] [facility] | [address] | [place] [address] | | | SERVICES, CORE | PARK [...] [facility] | [address] | [place] [address] | | | [address] | ALVA [...] + | [facility] | [address] | [place] [address] | | | SERVICES, CORE | ALVA [...] + + + + | PRODUCT | [id number] | | [facility] | | | UNIT [...] + + + + | EXPIRATION | [id number] | | [facility] | | | DATE [...] + + + + | BLOOD | [id number] | | [facility] | | | PRODUCT [...] | + + + + + | [facility] | [address] | [place] [address] | | | SERVICES, | [address] [...] + + + + | PRODUCT | [id number] | | [facility] | | | UNIT [...] + + + + | EXPIRATION | [id number] | | [facility] | | | DATE [...] + + + + | BLOOD | [id number] | | [facility] | | | PRODUCT [...] | + + + + + | [email or web address] | [address] | [place] [address] | | | SERVICES, | [address] [...] + + | [facility] | [address] | [place] [address] | | | SERVICES, CORE | PARK [...] | + + + + + | [facility] | [address] | [place] [address] | | | SERVICES, CORE | ALVA [...] [facility] | [address] | [place] [address] | | | SERVICES, CORE | PARK [...] | | | LABORATORY | | | MAURITIAN | | | SERVICES, | | | [...] the MDRD equation recommended by the | [facility] | | National Kidney Disease Education Program. [...] | + + + + + | [facility] | [address] | [place] [address] | | | SERVICES, CORE | [address] | | | + + + + + X-RAY PORTABLE CHEST 1 VIEW (07/30/2016 10:19 PM PST) + + + + + + | Component | Value | Ref Range | Performed | Pathologist | | | | | At | Signature | + + + + + + | X-RAY | EXAM: [place] CHEST 1 VIEW | | | | [...] | + + + + + | [facility] | [address] | [place] [address] | | | SERVICES, CORE | ALVA [...] | EJECTION | 57.5 | % | [facility] DEPT | | | FRACTION | | | OF | | | RANGE MEAN | | | CARDIOLOGY | | | VALUE | | | | | + + + + + + + + | Specimen | + + | | + + + + + | Narrative | Performed At | + + + | [facility] | [facility] DEPT OF | | [facility] Adult Echocardiography | CARDIOLOGY | | Laboratory [address] [place] [address], | | | [place] [address] Pt Name: | | | MEGGAN OTERO Study Date/Time 07/30/2016 / 4:57:27 | | | PMMRN: [id number] Most recent | | | prior: -Acc #: [id number] No. previous echos: | | | 0DOB: 1995 20 years Heart Rate: 108 | | | bpmHeight: 70.0 in Blood Pressure: | | | 128/68 mm/HgWeight: 217.0 lb | | | Gender: FBSA: 2.16 | | | m2 Order ID: [id number] | | | Clinical Resource Director: Leo RICHARD Referring Provider: Lashon Farias | [...] | | | Report electronically signed by: [id number] Deepti Cortes MD | | | (07/31/2016, 11:59:20 AM)REPORT FLWC=[id number] HOSP=PO REGION=A0 | | | Final | | |REPORT VXIK=[id number] HOSP=PO REGION=A0 | | | | | | | | | | | | Final | | + + + + + | Procedure Note | + + | Interface, Cardiology Results - 07/31/2016 11:59 AM [facility] | | [facility] [address] [place] [address] | | [place], [place] [address] Pt Name: MEGGAN SANCHEZ | | HUMMELL Study Date/Time 07/30/2016 / 4:57:27 PMMRN: [id number] Most | | recent prior: -Acc #: [id number] No. previous echos: 0DOB: 1995 20 | | years Heart Rate: 108 bpmHeight: 70.0 in Blood Pressure: 128/68 | | mm/HgWeight: 217.0 lb Gender: FBSA: 2.16 m2 Order | | ID: [id number] Clinical Resource Director: Leo Polanco RCSReferring Provider: Lashon Aranda | [...] values Report | | electronically signed by: [id number] Deepti Cortes MD (07/31/2016, 11:59:20 AM)REPORT | | VQVZ=[id number] HOSP= REGION=A0 Final | |Aortic Valve: The [...] | | | |Report electronically signed by: [id number] Deepti Cortes MD (07/31/2016, 11:59:20 AM) | |REPORT PFDW=[id number] HOSP=PO REGION=A0 | | | | | | | | Final | + + + + + + + | Performing | Address | City/State/Zipcode | Phone Number | | Organization | | | | + + + + + | [facility] | [address] | [place], [place] | | | CARDIOLOGY | [address] | [address] | | + + + + + [...] | + + + + + | [facility] | [address] | [place] [address] | | | [facility] | [address] | | | + [...] [facility] | [address] | [place], [place] | | | [facility] | [address] | [address] | | | TESTS | | | [...] | AIRPORT - | | seen | [place] | + + + + + + + + | Performing | Address | City/State/Zipcode | Phone Number | | Organization | | | | + + + + + | [facility] - | [address] | [place] [address] | | | [facility] | | | | + + + [...] + | [facility] - | [address] | [place] [address] | | | [place] | | | | + + + [...] + + + + | PRODUCT | [id number] | | [facility] | | | UNIT [...] + + + + | EXPIRATION | [id number] | | [facility] | | | DATE [...] + + + + | BLOOD | [id number] | | [facility] | | | PRODUCT [...] | + + + + + | [facility] | [address] | [place] [address] | | | SERVICES, | [address] [...] [facility] | [address] | [place] [address] | | | SERVICES, CORE | [address] [...] [facility] | [address] | [place] [address] | | | SERVICES, CORE | PARK [...] | + + + + + | [facility] | [address] | [place] [address] | | | SERVICES, | [address] [...] [facility] | [address] | [place] [address] | | | SERVICES, | [address] [...] + + + + | PRODUCT | [id number] | | [facility] | | | UNIT [...] + + + + | EXPIRATION | [id number] | | [facility] | | | DATE [...] + + + + | BLOOD | [id number] | | [facility] | | | PRODUCT [...] [facility] | [address] | [place] [address] | | | SERVICES, | [address] [...] [facility] | [address] | [place] [address] | | | SERVICES, SCOOBY | ALVA [...] | + + + + + | [facility] | [address] | [place] [address] | | | SERVICES, CORE | PARK [...] | + + + + + | [facility] | [address] | [place] [address] | | | SERVICES, CORE | ALVA [...] | | | LABORATORY | | | MAURITIAN | | | SERVICES, | | | [...] AST CMNT | No Hemo | | [facility] | | | | | | LABORATORY [...] | + + + + + | [facility] | [address] | [place] [address] | | | SERVICES, CORE | ALVA [...] + + + | X-RAY | EXAM: IL CHEST 1 VIEW | | | | [...] | | + +---------+ + + | [facility] DEPARTMENT OF | | | | | [...] | + + + + + | [facility] | [address] | [place] [address] | | | SERVICES, CORE | PARK [...] + + + + | PRODUCT | [id number] | | [facility] | | | UNIT [...] + + + + | EXPIRATION | [id number] | | [facility] | | | DATE [...] + + + + | BLOOD | [id number] | | [facility] | | | PRODUCT [...] | + + + + + | [facility] | [address] | [place] [address] | | | SERVICES, | [address] [...] + + + + | PRODUCT | [id number] | | [facility] | | | UNIT [...] + + + + | EXPIRATION | [id number] | | [facility] | | | DATE [...] + + + + | BLOOD | [id number] | | [facility] | | | PRODUCT [...] | + + + + + | [facility] | [address] | [place] [address] | | | SERVICES, | [address] [...] | | | | (A) | | [facility] | | + + + + + + + + | Specimen | + + | Blood | + + + + + | Narrative | Performed At | + + + | Culture Report: Methicillin Resistant Staphylococcus aureus | [facility] - | | Presumptive identification Refer to culture collected 07/28/16 at | [facility] - | | 4:20 pm for complete identification and susceptibilities Growth in | [place] | | Aerobic bottle Growth in Anaerobic bottle | | + + + + + + + + | Performing | Address | City/State/Zipcode | Phone Number | | Organization | | | | + + + + + | [facility] - | [address] | [place] [address] | | | [facility] | | | | + + + [...] | + + + + + | [facility] | [address] | [place] [address] | | | SERVICES, SCOOBY | PARK [...] [facility] | [address] | [place] [address] | | | SERVICES, CORE | ALVA [...] | + + + + + | [facility] | [address] | [place] [address] | | | SERVICES, CORE | ALVA [...] | | | | (A) | | [place] | | + + + + + + + + | Specimen | + + | Blood - Portacath | + + + + + | Narrative | Performed At | + + + | Culture Report: Methicillin Resistant Staphylococcus aureus | [facility] - | | Presumptive identification Refer to culture collected 07/28/16 at | [facility] - | | 4:20 pm for complete identification and susceptibilities Growth in | [place] | | Aerobic bottle Growth in Anaerobic bottle | | + + + + + + + + | Performing | Address | City/State/Zipcode | Phone Number | | Organization | | | | + + + + + | [facility] - | [address] | [place] [address] | | | [place] | | | | + + + [...] | + + + + + | [facility] | [address] | [place] [address] | | | SERVICES, CORE | ALVA [...] | | | | (A) | | [place] | | + + + + + [...] complete identification and susceptibilities Growth in | [place] | | Aerobic bottle Growth in Anaerobic bottle | | + + + + + + + + | Performing | Address | City/State/Zipcode | Phone Number | | Organization | | | | + + + + + | [facility] - | [address] | [place] [address] | | | [facility] | | | | + + + [...] | + + + + + | [facility] | [address] | [place] [address] | | | [address] | ALVA [...] + + + + | PRODUCT | [id number] | | [facility] | | | UNIT [...] + + + + | EXPIRATION | [id number] | | [facility] | | | DATE [...] + + + + | BLOOD | [id number] | | [facility] | | | PRODUCT [...] [facility] | [address] | [place] [address] | | | SERVICES, | [address] [...] DEPT OF | [address] | [place], [place] | | | CARDIOLOGY | [address] | [address] | | + + + + + [...] [facility] | [address] | [place] [address] | | | [address] | ALVA [...] + + + + | PRODUCT | [id number] | | [facility] | | | UNIT [...] + + + + | EXPIRATION | [id number] | | [facility] | | | DATE [...] + + + + | BLOOD | [id number] | | [facility] | | | PRODUCT [...] [facility] | [address] | [place] [address] | | | SERVICES, | [address] [...] | + + + + + | [facility] | [address] | [place] [address] | | | [address] | ALVA [...] [facility] | [address] | [place] [address] | | | ELISA, SCOOBY | ALVA [...] | + + + + + | [facility] | [address] | [place] [address] | | | SERVICES, CORE | PARK [...] | + + + + + | [facility] | [address] | [place] [address] | | | SERVICES, CORE | ALVA [...] | | | LABORATORY | | | MAURITIAN | | | SERVICES, | | | [...] | + + + + + | [facility] | [address] | [place] [address] | | | SERVICES, CORE | ALVA [...] [facility] | [address] | [place] [address] | | | ELISA, SCOOBY | ALVA [...] - | | | | | | [place] | | + +---------+ + + + + + | Specimen | + + | Blood | + + + + + + + | Performing | Address | City/State/Zipcode | Phone Number | | Organization | | | | + + + + + | [facility] - | [address] | [place] [address] | | | [place] | | | | + + + [...] [address] | | | | | | [facility], [place] [address] | | | | | | [phone]. | | | | | | [place] [...] [facility] | [address] | [place], [place] | | | [facility] | | [address] | | + + + + + [...] + | [facility] - | [address] | [place] [address] | | | [place] | | | [...] [facility] | [address] | [place] [address] | | | SERVICES, CORE | [address] [...] [facility] | [address] | [place] [address] | | | SERVICES, CORE | [address] [...] [facility] | [address] | [place] [address] | | | [address] | ALVA [...] | | | | (A) | | [place] | | + + + + + + + + | Specimen | + + | Blood | + + + + + | Narrative | Performed At | + + + | Culture Report: Methicillin Resistant Staphylococcus aureus | [facility] - | | Presumptive identification Refer to culture collected 07/28/16 at | [facility] - | | 4:20 PM for complete identification and susceptibilities Growth in | [place] | | Aerobic bottle Growth in Anaerobic bottle | | + + + + + + + + | Performing | Address | City/State/Zipcode | Phone Number | | Organization | | | | + + + + + | [facility] - | [address] | [place] [address] | | | [place] | | | | + + + [...] | + + + + + | [facility] | [address] | [place] [address] | | | SERVICES, CORE | ALVA [...] | | | | (A) | | [place] | | + + + + + [...] + + + + + | [place] [facility] - | [address] | [place] [address] | | | [place] | | | | + + + [...] | + + + + + | [facility] | [address] | [place] [address] | | | SERVICES, CORE | PARK [...] | + + + + + | [facility] - | [address] | [place] [address] | | | [place] | | | [...] | + + + + + | [facility] | [address] | [place] [address] | | | SERVICES, CORE | PARK [...] + + + + | PRODUCT | [id number] | | [facility] | | | UNIT [...] + + + + | EXPIRATION | [id number] | | [facility] | | | DATE [...] + + + + | BLOOD | [id number] | | [facility] | | | PRODUCT [...] | + + + + + | [facility] | [address] | [place] [address] | | | SERVICES, | [address] [...] | + + + + + | [facility] | [address] | [place] [address] | | | SERVICES, CORE | ALVA [...] | + + + + + | [facility] | [address] | [place] [address] | | | [place] | [address] [...] [facility] | [address] | [place] [address] | | | ELISA, CORE | [address] [...] | | | LABORATORY | | | MAURITIAN | | | SERVICES, | | | [...] the MDRD equation recommended by the | [facility] | | National Kidney Disease Education Program. [...] | + + + + + | [facility] | [address] | [place] [address] | | | SERVICES, CORE | ALVA [...] + + + + | PRODUCT | [id number] | | [facility] | | | UNIT [...] + + + + | EXPIRATION | [id number] | | [facility] | | | DATE [...] + + + + | BLOOD | [id number] | | [facility] | | | PRODUCT [...] [facility] | [address] | [place] [address] | | | SERVICES, | [address] [...] + + + + | PRODUCT | [id number] | | [facility] | | | UNIT [...] + + + + | EXPIRATION | [id number] | | [facility] | | | DATE [...] + + + + | BLOOD | [id number] | | [facility] | | | PRODUCT [...] [facility] | [address] | [place] [address] | | | SERVICES, | [address] [...] [facility] | [address] | [place] [address] | | | SERVICES, SCOOBY | ALVA [...] | + + + + + | [facility] | [address] | [place] [address] | | | SERVICES, CORE | PARK [...] | + + + + + | [facility] | [address] | [place] [address] | | | SERVICES, CORE | PARK [...] | | | LABORATORY | | | MAURITIAN | | | SERVICES, | | | [...] | + + + + + | [facility] | [address] | [place] [address] | | | SERVICES, CORE | [address] [...] [facility] | [address] | [place] [address] | | | SERVICES, CORE | PARK [...] | + + + + + | [facility] | [address] | [place] [address] | | | SERVICES, SCOOBY | ALVA [...] [facility] | [address] | [place] [address] | | | SERVICES, CORE | [address] [...] [facility] | [address] | [place] [address] | | | SERVICES, CORE | PARK [...] | | | LABORATORY | | | MAURITIAN | | | SERVICES, | | | [...] LABORATORY | [address] | [place] [address] | | | SERVICES, CORE | [address]ARK [...] [facility] | [address] | [place] [address] | | | SERVICES, CORE | ALVA [...] + | [facility] - | [address] | [place] [address] | | | [place] | | | [...] [address] | | | | | | [place] [address] | | | | | | [phone]. | | | | | | [place] [...] [facility] | [address] | [place], [place] | | | [facility] | | [address] | | + + + + + [...] ranges for full anticoagulation: INR for | [facility] | | Venous Thromboembolism (2.0 - 3.0) INR INR | LABORATORY | | for most patients with mech. valves (2.5 - 3.5) INR | [place] | + + + + + + + + | Performing | Address | City/State/Zipcode | Phone Number | | Organization | | | | + + + + + | [facility] | [address] | [place] [address] | | | [place] | ALVA [...] + + + + | PRODUCT | [id number] | | [facility] | | | UNIT [...] + + + + | EXPIRATION | [id number] | | [facility] | | | DATE [...] + + + + | BLOOD | [id number] | | [facility] | | | PRODUCT [...] [facility] | [address] | [place] [address] | | | SERVICES, | [address] [...] [facility] | [address] | [place] [address] | | | SERVICES, | [address] [...] | + + + + + | [email or web address] | [address] | [place] [address] | | | SERVICES, | [address] [...] [facility] | [address] | [place] [address] | | | SERVICES, CORE | PARK [...] | + + + + + | [facility] | [address] | [place] [address] | | | SERVICES, CORE | ALVA [...] [facility] | [address] | [place] [address] | | | SERVICES, CORE | ALVA [...] | | | LABORATORY | | | MAURITIAN | | | SERVICES, | | | [...] | + + + + + | [facility] | [address] | [place] [address] | | | SERVICES, CORE | [address]ARK [...] 0.28 (L) | 3.50 - 10.80 | [facility] | | | COUNT | | K/cu mm | LABORATORY | | | | | | SERVICES, | | | | | | CORE | | + + + + + + | RED CELL | 2.43 (L) | 4.00 - 5.20 | [facility] | | | COUNT | | M/cu [...] | + + + + + | [facility] | [address] | [place] [address] | | | SERVICES, CORE | ALVA [...] | + + + + + | [facility] | [address] | [place] [address] | | | SERVICES, CORE | PARK [...] | + + + + + | [facility] | [address] | [place] [address] | | | SERVICES, CORE | ALVA [...] | | | LABORATORY | | | MAURITIAN | | | SERVICES, | | | [...] | + + + + + | [facility] | [address] | [place] [address] | | | SERVICES, CORE | PARK [...] | + + + + + | [facility] | [address] | [place] [address] | | | SERVICES, CORE | [address] [...] [facility] | [address] | [place] [address] | | | SERVICES, SCOOBY | PARK [...] | + + + + + | [facility] | [address] | [place] [address] | | | SERVICES, CORE | PARK [...] | + + + + + | [facility] | [address] | [place] [address] | | | SERVICES, CORE | PARK [...] [facility] | [address] | [place] [address] | | | [place] [address] | ALVA [...] [facility] | [address] | [place] [address] | | | SERVICES, CORE | ALVA [...] [facility] | [address] | [place] [address] | | | SERVICES, CORE | PARK [...] | | | LABORATORY | | | MAURITIAN | | | SERVICES, | | | [...] + + | [facility] | [address] | [place] [address] | | | SERVICES, CORE | PARK [...] | + + + + + | [facility] | [address] | [place] [address] | | | SERVICES, SCOOBY | ALVA [...] | + + + + + | [facility] | [address] | [place] [address] | | | ELISA, CORE | ALVA [...] [facility] | [address] | [place] [address] | | | SERVICES, CORE | PARK [...] [facility] | [address] | [place] [address] | | | SERVICES, CORE | PARK [...] | + + + + + | [facility] | [address] | [place] [address] | | | SERVICES, CORE | PARK [...] | | | LABORATORY | | | MAURITIAN | | | SERVICES, | | | [...] | + + + + + | [facility] | [address] | [place] [address] | | | SERVICES, SCOOBY | ALVA [...] | + + + + + | [facility] | [address] | [place] [address] | | | [place] [address] | ALVA [...] | | | | | | [place], [facility] [place] [address] | | | | | | [phone]. | | | | | | [place] [...] [facility] | [address] | [place], [place] | | | [facility] | | [address] | | + + + + + [...] + | [facility] - | [address] | [place] [address] | | | [place] | | | | + + + + + STEM CELL TRANSPLANT, AUTOLOGOUS (07/21/2016 5:29 PM PST) + + + | Narrative | Performed At | + + + | Emery Chilel MD 07/21/2016 5:29 PM Hematopoietic | | | Progenitor Cell Infusion Record Name: Meggan Otero MRN: | | | [id number] Indication for Procedure: Reconstitution of hematopoiesis | [...] processing: Yes Bag identification was crosschecked per [facility] | | | policy: Yes Product number [...] or 4 toxicity occurs, please call the [facility] Lab | | | [phone] to initiate the [facility] Adverse Reaction Report process. | | | Mild nausea and flushing during Emery Chilel MD | | + + + PROCEDURE NOTE (07/21/2016 12:51 PM PST) + + + | Narrative | Performed At | + + + | Allyson Waite 07/21/2016 12:51 PM Cell Processing Name: | | | Meggan Oetro Donation Identification Number: | | | [id number] ABO/Rh Recipient:A pos Antibody Screen | | [...] [facility] | [address] | [place] [address] | | | SERVICES, CORE | [address] | | | + + + + + PRODUCT CELL COUNT (07/21/2016 10:05 AM PST) + + + + + + | Component | Value | Ref Range | Performed | Pathologist | | | | | At | Signature | + + + + + + | PRODUCT | [id number] | | [facility] | | | IDENTIFIER [...] [facility] | [address] | [place] [address] | | | SERVICES, CORE | ALVA [...] HEM CELL | [address] | [place], [place] | | | PROCESSING LAB | [address] | [address] | | + + + + + AUTO HPCA THAW (07/21/2016 10:04 AM PST) + + + + + + | Component | Value | Ref Range | Performed | Pathologist | | | | | At | Signature | + + + + + + | PRODUCT | Auto HPC, Apheresis | | [facility] | | | TYPE | [id number] | | CELL | | | | [...] HEM CELL | [address] | [place], [place] | | | PROCESSING LAB | [address] | [address] | | + + + + + [...] [facility] | [address] | [place], [place] | | | CARDIOLOGY | [address] | [address] | | + + + + + [...] LABORATORY | [address] | [place] [address] | | | SERVICES, | [address] [...] | + + + + + | [facility] | [address] | [place] [address] | | | SERVICES, | [address] [...] + + + + | PRODUCT | [id number] | | [facility] | | | UNIT [...] + + + + | EXPIRATION | [id number] | | [facility] | | | DATE [...] + + + + | BLOOD | [id number] | | [facility] | | | PRODUCT [...] + + | [facility] | [address] | [place] [address] | | | SERVICES, | [address] [...] | + + + + + | [facility] | [address] | [place] [address] | | | SERVICES, CORE | ALVA [...] | + + + + + | [facility] | [address] | [place] [address] | | | SERVICES, CORE | PARK [...] | + + + + + | [facility] | [address] | [place] [address] | | | SERVICES, CORE | ALVA [...] | | | LABORATORY | | | MAURITIAN | | | SERVICES, | | | [...] | + + + + + | [facility] | [address] | [place] [address] | | | SERVICES, CORE | ALVA [...] | + + + + + | [facility] | [address] | [place] [address] | | | ELISA, CORE | ALVA [...] [facility] | [address] | [place] [address] | | | SERVICES, CORE | PARK [...] + + | [facility] | [address] | [place] [address] | | | SERVICES, CORE | PARK [...] | | | LABORATORY | | | MAURITIAN | | | SERVICES, | | | [...] + + | [facility] | [address] | [place] [address] | | | SERVICES, CORE | PARK [...] | + + + + + | [facility] | [address] | [place] [address] | | | SERVICES, CORE | ALVA [...] | + + + + + | [facility] | [address] | [place] [address] | | | SERVICES, CORE | PARK [...] | + + + + + | [facility] | [address] | [place] [address] | | | SERVICES, CORE | ALVA [...] + + + + + | [place] [facility] - | [address] | [place] [address] | | | [place] | | | | + + + [...] | | | | | | Laboratories,[address] | | | | | | [place] [address] | | | | | | [phone]. | | | | | | [place] [...] [facility] | [address] | [place], [place] | | | [facility] | | [address] | | + + + + + [...] [facility] | [address] | [place] [address] | | | SERVICES, CORE | PARK [...] | + + + + + | [facility] | [address] | [place] [address] | | | SERVICES, SCOOBY | ALVA [...] [facility] | [address] | [place] [address] | | | SCOOBY PÉREZ | ALVA [...] | | | LABORATORY | | | MAURITIAN | | | SERVICES, | | | [...] | + + + + + | [facility] | [address] | [place] [address] | | | SERVICES, CORE | ALVA [...] | + + + + + | [facility] | [address] | [place] [address] | | | SERVICES, CORE | PARK [...] | + + + + + | [facility] | [address] | [place] [address] | | | SERVICES, CORE | PARK [...] | + + + + + | [facility] | [address] | [place] [address] | | | SERVICES, CORE | ALVA [...] | | | LABORATORY | | | MAURITIAN | | | SERVICES, | | | [...] | + + + + + | [facility] | [address] | [place] [address] | | | SERVICES, CORE | ALVA [...] reference ranges effective June 30, 2016. | [facility] | | Immature Granulocytes (IG) include metamyelocytes, [...] | + + + + + | [facility] | [address] | [place] [address] | | | SERVICES, CORE | ALVA [...] LABORATORY | [address] | [place] [address] | | | SERVICES, CORE | [address] | | | + + + + + MAGNESIUM, PLASMA (07/16/2016 11:59 PM PST) + +-------+ + + + | Component | Value | Ref Range | Performed | Pathologist | | | | | At | Signature | + +-------+ + + + | MAGNESIUM,P | 1.9 | 1.8 - 2.5 mg/dL | [facility] | | | LASMA | | | [...] [facility] | [address] | [place] [address] | | | SERVICES, CORE | PARK [...] | | | LABORATORY | | | MAURITIAN | | | SERVICES, | | | [...] | + + + + + | [email or web address] | [address] | [place] [address] | | | SERVICES, CORE | ALVA [...] | + + + + + | [facility] | [address] | [place] [address] | | | ELISA CORE | ALVA [...] [facility] | [address] | [place] [address] | | | SERVICES, CORE | ALVA [...] [facility] | [address] | [place] [address] | | | SERVICES, CORE | PARK [...] | | | LABORATORY | | | MAURITIAN | | | SERVICES, | | | [...] [facility] | [address] [address] | [place] [address] | | | SERVICES, CORE | PARK [...] | + + + + + | [facility] | [address] | [place] [address] | | | SERVICES, CORE | ALVA [...] reference ranges effective June 30, 2016. | [facility] | | Immature Granulocytes (IG) include metamyelocytes, [...] | + + + + + | [facility] | [address] | [place] [address] | | | SERVICES, CORE | ALVA [...] + | [facility] - AIRPORT - | [address] | [place] [address] | | | [place] | | | | + + + [...] [address] | | | | | | [place] [address] | | | | | | [phone]. | | | | | | [place] [...] [facility] | [address] | [place], [place] | | | UNIV PTH - INTFC | | [address] | | + + + + + [...] [facility] | [address] | [place] [address] | | | SERVICES, | [address] [...] | + + + + + | [facility] | [address] | [place] [address] | | | SERVICES, | [address] [...] | + + + + + | [facility] | [address] | [place] [address] | | | SERVICES, CORE | ALVA [...] [facility] | [address] | [place] [address] | | | SERVICES, CORE | ALVA [...] | + + + + + | [facility] | [address] | [place] [address] | | | SERVICES, CORE | ALVA [...] | + + + + + | [facility] | [address] | [place] [address] | | | SCOOBY PÉREZ | ALVA [...] [facility] | [address] | [place] [address] | | | SERVICES, CORE | PARK [...] [facility] | [address] | [place] [address] | | | SERVICES, CORE | PARK [...] | | | LABORATORY | | | MAURITIAN | | | SERVICES, | | | [...] | + + + + + | [email or web address] | [address] | [place] [address] | | | SERVICES, CORE | PARK [...] 7:55 | | | | | dose, [facility] 07/15/16 at 2030 | | PM [...] | 15 mL | | | | tqoosjgasnTHDBM-ukxlmbsrc-SWEDLZ | | 16 9:57 | | | | | (SPECIAL MOUTHWASH) suspension | | AM PST | | | | | (compound) 10-15 mL 10-15 mL, | | | | | | | oral, EVERY 1 HOUR NEEDED, | | | | | | | Starting [facility] 07/15/16 at 1520, | | | [...] at 1960, alternate to | | | ikluayosglmfbdf-ZJ-gc first line | | | is xmmupthdqii-JW-jz related to | | | agitation, restlessness, [...] + + +---+---+---+ | HYDROmorphone 0.5 mg/mL 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 | Rate/Dos | 08/04/20 | | | [...] mL/hr | mL/hr | | | Starting [facility] 07/15/16 at 1800, | | PM [...] | | | DAILY, First dose on [facility] 08/05/16 | | AM PST | [...] | | | | | NEEDED, Starting [facility] 07/15/16 at | | PM PST [...] mEq, oral, | | | NEEDED, Starting [facility] 07/15/16 at | | | 1520, Until 08/07/16 at 1957, | | | potassium level 3-3.4 mmol/L | | + +---+ | | | + +---+ + +---------+ +---------+---+---+ | potassium phosphate IV 30 mmol | New Bag | 07/21/20 | 30 mmol | | | | 30 mmol, intravenous, NEEDED, | | 16 9:49 | | | | | Starting [facility] 07/15/16 at 1520, | | AM [...] | | | | | NEEDED, Starting [facility] 07/15/16 at | | | | [...] AT BEDTIME | | | NEEDED, Starting [facility] 07/15/16 at | | | 1520, Until 08/07/16 at 1957, | | | insomnia | | + +---+ | | | + +---+ | saliva substitute (MOUTH KOTE) | | | spray 1 spray 1 spray, oral, | | | EVERY 1 HOUR NEEDED, Starting | | | [facility] 07/15/16 at 1520, Until Sat | | | 08/07/16 at 1957, dry mouth | | + +---+ | | | + +---+ | senna-docusate (SENOKOT S) | | | 8.6-50 mg 1-2 tablet 1-2 tablet, | | | oral, EVERY 12 HOURS NEEDED, | | | Starting [facility] 07/15/16 at 1520, | | | [...] | | | DAILY, First dose on [facility] 07/22/16 | | AM PST | [...]
--- OUTSIDE RECORDS SUMMARY | ~2019-01-06 | XMS | Encounter Summary ---
Demographics + + + | Address | [address] | | | [place] [address] | + + + | Home Phone [...] + + + | Author | [facility] | + + + | Organization | [facility] | + + [...] Team Providers + +------+ + | Care Underwriting Consultant Name | Role | Phone | + [...] + + + + | 05/21/ | Digital Account Manager | Center for | Quirino Moreno I, | Nodular sclerosis | | 2016 | | Hematologic | ,PhD [address] | Hodgkin lymphoma of | | | | Malignancies at | [address] | lymph nodes of | | | | [facility] | [facility] [place] | multiple regions | | | | [address] | [address] | (HCC) (Primary Dx) | | | | [facility] | [phone] | | | | | Mailcode: UHN73A | | | | | | [facility] | | | | | | [place], [place] | | | | | | [address] | | | | | | [phone] | | | +--------+ + + + [...] + documented as of this encounter Progress Muara Boyer RN - 05/21/2016 9:20 AM PDT [...] at | | | | | | [email or web address] | | | | | | x. [...] at | | | | | | [email or web address]/[email or web address] | | | | | | x. [...] at | | | | | | [email or web address]The Guild/[email or web address] | | | | | | x. [...] at | | | | | | [email or web address] Guild/ebvd | | | | | | x.Performed by [facility] | | | | | | Renea,[address] [place] [address] | | | | | | [place] [address] | | | | | | [phone]. | | | | | | [facility], [place], | | | [...] [facility] | [address] | [place], [place] | | | UNIV PTH - INTFC | | [address] | | + + + + + [...] + | [facility] - | [address] | [place] [address] | | | [place] | | | [...] + | [facility] - | [address] | [place] [address] | | | [place] | | | [...] + | [facility] - | [address] | [place] [address] | | | [place] | | | [...] + | [facility] - | [address] | [place] [address] | | | [place] | | | [...] | + + + + + | [place] [facility] - | [address] | [place], [place] [facility] | | | [place] | | | | + + + [...] [address] | | | | | | [place] [address] | | | | | | [phone]. | | | | | | [place] [...] [facility] | [address] | [place], [place] | | | UNIV PTH - INTFC | | [address] | | + + + + + [...] [facility] | [address] | [place] [address] | | | SERVICESSCOOBY | [address] [...] [facility] | [address] | [place] [address] | | | SERVICES, CORE | PARK [...] + + + + + | [facility] | [address] | [place] [address] | | | SERVICES, CORE | BLANCHE [...] [facility] | [address] | [place] [address] | | | SERVICES, CORE | PARK [...] [facility] | [address] | [place] [address] | | | SERVICES, CORE | PARK [...] | | | LABORATORY | | | [facility] | | | SERVICES, | | | [...] + + + + + | [facility] | [address] | [place] [address] | | | SERVICES, CORE | [address] | | | + + + + + documented in this encounter Visit Diagnoses + + | Diagnosis | + + | 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
--- OUTSIDE RECORDS SUMMARY | ~2019-01-06 | XMS | Encounter Summary ---
Demographics + + + | Address | [address] | | | [place] [address] | + + + | Home Phone [...] Team Providers + +------+ + | Care Technology Auditor Name | Role | Phone | + +------+ + | Aashish Hilton MD | PCP | | + +------+ + Encounter Details +--------+ + + + + | Date | Type | Department | Care Team | Description | +--------+ + + + + | 06/25/ | Utility Specialist | Center for | Quirino Moreno I, | Hodgkin's disease, | | 2016 | | Hematologic | ,PhD [address] [facility] | nodular sclerosis, | | | | Malignancies at | [address] | of lymph nodes of | | | | [facility] | [place], [place] | multiple sites (HCC) | | | | [address] [facility] | [address] | (Primary Dx) | | | | [facility] | [phone] | | | | | Mailcode: [id number] | | | | | | [facility] | | | | | | [place], [place] | | | | | | [address] | | | | | | [phone] | | | +--------+ + + + [...] DEPT OF | [address] | [place], [place] | | | CARDIOLOGY | [address] | [address] | | + + + + + documented in this encounter Visit Diagnoses + + | Diagnosis | + + | Hodgkin's disease, nodular sclerosis, 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
--- OUTSIDE RECORDS SUMMARY | ~2019-01-06 | XMS | Encounter Summary ---
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 | | | | [facility] | | transplantation | | | | [place], [place] | | status ([facility]) | | | | [address] | | | | | | [phone] | | | +--------+---------+ + + + [...] 08/10/2016 3:15 PM PSTCall the BMT clinic ) or BMT person on-call ([phone]) for: Any temp > 100.4 Nausea/vomiting unresponsive [...] oncologist: Aashish Hilton MD ([facility]) Benign Hematology: Jim Michael MD ([facility]) Pediatric Heme/Onc: Anh Moreland MD ([place]) Nephrology: Raghav Miller MD ([place]) 04/2015 presented with flank pain CT C/A/P: 11 cm anterior mediastinal mass, pleural effusion & L supraclav adenopathy Needle bx: classical hodgkins, nodular sclerosing type Thoracentesis: reactive/benign BMBx: neg PET: bulky mediastinal mass, SUV 16; bilateral neck SUV 15; also R>L pleural effusion 05/10/15 began ABVE-PC (as per pediatric [id number]) via femoral line 05/16/15 presented with sepsis [...] Above therapy in [place] -> moved to [place] Continued on ecalizumab [...] if asymptomatic GI: Hx of GERD: 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 | [place], [place] | | | ALYSSA POINT OF CARE | [address] | [address] | | | TESTS | | | | + + + + + HAPTOGLOBIN, SERUM (08/13/2016 12:41 PM PST) + +---------+ + + + | Component | Value | Ref Range | Performed | Pathologist | | | | | At | Signature | + +---------+ + + + | HAPTOGLOBIN | <10 (L) | 30 - 200 mg/dL | [facility] | | | | | | [facility] - | | | | | | [place] | | + +---------+ + + + + + | Specimen | + + | Blood | + + + + + + + | Performing | Address | City/State/Zipcode | Phone Number | | Organization | | | | + + + + + | [facility] - | [address] | [place] [address] | | | [place] | | | | + + + [...] [facility] | [address] | [place] [address] | | | SERVICES, CORE | PARK [...] + + | [facility] | [address] | [place] [address] | | | SERVICES, CORE | PARK [...]
--- OUTSIDE RECORDS SUMMARY | ~2019-01-06 | XMS | Encounter Summary ---
Demographics + + + | Address | [address] | | | [place] [address] | + + + | Home Phone [...] Team Providers + +------+ + | Care Occupational Therapy Professor Name | Role | Phone | [...] [facility] | [address] [place], | | | | | [address] | [place] [address] | | | | | Mailcode: [place] | [phone] | | | | | for [facility] and | | | | | | Healing, [address] | | | | | | [place], [place] | | | | | | [address] | | | | | | [phone] | | | +--------+ + + + [...]
--- OUTSIDE RECORDS SUMMARY | ~2019-01-06 | XMS | Encounter Summary ---
Demographics + + + | Address | [address] | | | [place] [address] | + + + | Home Phone [...] Team Providers + +------+ + | Care Human Resources Analyst Name | Role | Phone | [...] Hematology | Diagnoses | Quirino Moreno | [facility] | | | | Malignancy | Nodular | MD Ronak,PhD | [facility] | | | | | sclerosis | [address] | [address] | | | | | Hodgkin | [place] | [address] | | | | | lymphoma, | Rd | Mailcode: | | | | | lymph nodes | [place], [place] | U[facility]73A | | | | | of multiple | [address] | [address] | | | | | sites | Phone: | Virgil | | | | | | [phone] | [place], [place] | | | | | | Fax: | [address] | | | | | | [phone] | Phone: | | | | | | | [phone] | | | | | | | Fax: | | | | | | | [phone] | +--------+--------+ + + + + Encounter Details +--------+ + + + + | Date | Type | Department | Care Team | Description | +--------+ + + + + | 08/23/ | Clinical | Center for | | Lab Draw ([facility]); | | 2017 | Support | Hematologic | | Intravenous infusion | | | Staff | Malignancies at [facility] | | ([place] and | | | | [address] | | Pentam); Follow-up | | | | [facility] [address] | | visit (Richard | | | | Mailcode: UHN73A | | MORENA Osborne); | | | | Joanne Herman | | Dressing change | | | | [place], [place] | | ([facility]) | | | | [address] | | | | | | [phone] | | | +--------+ + + + [...] Keerthi Couch RN - 08/23/2016 1:13 PM [facility] pentamidine Pronunciation: natalya Mayes Brand: Cady, [...] others may occur. Call your doctor for [facility] advice about side effects. You may report side effects to FDA at 2-092-HMM-5744. eculizumab Pronunciation: Brianna patterson mab Brand: Ramana [...] available only under a special program called [employer]. You must be ramesh tered in the [...] may interact with eculizumab, including prescription and qsgn-mzc-rldjzsx medic ross, vitamins, and herbal products. Tell [...] [facility] | [address] | [place], [place] | | | MERRY SHAH OF CARE | [facility] | [address] | | | TESTS | | | [...] - [facility] | [address] | [place], [place] | | | ALYSSA POINT OF CARE | [address] | [address] | | | TESTS | | | [...] [facility] | [address] | [place] [address] | | | SERVICES, CORE | PARK [...] + + + + + | [facility] | [address] | [place] [address] | | | SERVICES, CORE | PARK [...] | + + + + + | [facility] | [address] [facility] | [place] [address] | | | SERVICES, CORE | PARK [...] | | | | | | [place], [facility] [address] | | | | | | [phone]. | | | | | | Juan [...] [facility] | [address] | [place], [place] | | | UNIV PTH - INTFC | | [address] | | + + + + + [...]
--- OUTSIDE RECORDS SUMMARY | ~2019-01-06 | XMS | Encounter Summary ---
Demographics + + + | Address | [address] | | | [place] [address] | + + + | Home Phone | | + + + | Preferred Language | Unknown | + + + | Marital Status | | + + + | Muslim Affiliation | NON | + + + [...] Team Providers + +------+ + | Care Non Licensed Nuclear Plant Operator Name | Role | Phone | [...] [address] | | | | | | [facility] | | | | | | Mailcode: UHN73A | | | | | | [address] | | | | | | [place], [place] | | | | | | [address] | | | | | | [phone] | | | +--------+ + + + [...] [facility] | [address] | [place], [place] | | | MERRY SHAH OF CARE | [address] | [address] | | | TESTS | | | [...] MAG[facility] | [address] | [place], [place] | | | ALYSSA POINT OF [facility] | [address] | [address] | | | TESTS | | | [...] | + + + + + | [facility] | [address] | [place] [address] | | | SERVICES, CORE | [address]ANC[address] [...] LABORATORY | [address] | [place] [address] | | | SERVICES, CORE | BLANC[address] [...] [facility] | [address] | [place] [address] | | | SERVICES, CORE | PARK [...] [facility] | [address] | [place] [address] | | | SERVICES, SPECIAL | PARK [...]
--- OUTSIDE RECORDS SUMMARY | ~2019-01-06 | XMS | Encounter Summary ---
Demographics + + + | Address | [address] | | | [place] [address] | + + + | Home Phone [...] Team Providers + +------+ + | Care Chronometer Adjuster Name | Role | Phone | + [...] Medical Center | | | | | [facility] | [place], [place] | | | | | [address] [facility] | [address] | | | | | [facility] | [phone] | | | | | Mailcode: UHN73A | | | | | | [facility] | | | | | | [place], [place] | | | | | | [address] | | | | | | [phone] | | | +--------+ + + + [...]
--- OUTSIDE RECORDS SUMMARY | ~2019-01-06 | XMS | Encounter Summary ---
Demographics + + + | Address | [address] | | | [place] [address] | + + + | Home Phone | | + + + | Preferred Language | Unknown | + + + | Marital Status | | + + + | Yazdanism Affiliation | NON | + + + [...] Team Providers + +------+ + | Care Lime Plant Operator Name | Role | Phone [...] Rd | | | | | | [place], [place] | | | | | | [address] | | | | | | [phone] | | | +--------+ + + + [...]
--- OUTSIDE RECORDS SUMMARY | ~2019-01-06 | XMS | Encounter Summary ---
Demographics + + + | Address | [address] | | | [place] [address] | + + + | Home Phone [...] Team Providers + +------+ + | Care Master Of Ceremonies Name | Role | Phone | + [...] | | | | | Ave | [place], [place] | | | | | | [place], [place] | [address] | | | | | | [address] | Phone: | | | | | | Phone: | [phone] | | | | | | [phone] | Fax: | | | | | | Fax: | [phone] | | | | | | [phone] | | +--------+--------+ + + + + Encounter Details +--------+---------+ + + + | Date | Type | Department | Care Team | Description | +--------+---------+ + + + | 06/30/ | Office | Center for | Quirino Moreno I, | Nodular sclerosis | | 2016 | Visit | Hematologic | ,PhD [address] [facility] | Hodgkin lymphoma of | | | | Malignancies at | [facility] | lymph nodes of | | | | [facility] | [place], [place] | multiple regions | | | | [address] | [address] | (HCC) (Primary Dx); | | | | [address] | [phone] | 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 You will receive these shots 3 [...] 7:30AM Lab and zarxio injection in the [facility] clinic --When the circulating stem cell [...] You may need to return to the [facility] clinic at 5:30 pm for the Plerixafor (booster shot) if needed Tuesday 8:00am Stem cell collection (continue Tuesday and if needed) 14th [facility]. July Admit to 14K Call Bed control at [phone] morning of 07/15 for admission appointment time. TuesdayJune 21 is transplant day! If you develop any symptoms or have any medical questions, please call the Triage Nurse at [phone] or [phone] (Tuesday - Tuesday 8:30-4:30). During after hours, ple ase call [phone] and ask to have the BMT Person Senior Mechanical Engineer paged. documented in this encounter Progress Notes Quirino Moreno MD,PhD - 06/30/2016 12:25 PM PSTFormatting of this note might be different fr om the original. [facility] for Hematologic Malignancies Assessment & [...] Also gave written informed consent for the [facility] database. Atypical HUS - genetic studies PENDING [...] autoBMT following wk Quirino Moreno MD PhD [email or web address] Pediatric Heme/Onc: Anh Moreland MD ([place]) Nephrology: Raghav Miller MD ([place]) 04/2015 presented with flank pain CT C/A/P: 11 cm anterior mediastinal mass, pleural effusion & L supraclav adenopathy Needle bx: classical hodgkins, nodular sclerosing type Thoracentesis: reactive/benign BMBx: neg PET: bulky mediastinal mass, SUV 16; bilateral neck SUV 15; also R>L pleural effusion 05/10/15 began ABVE-PC (as per pediatric [id number]) - Dox 30 mg/m2 d1,2 - Bleo [...] L neck: classical Hodgkins Above therapy in [place] -> moved to [place] Continued on ecalizumab per benign heme ([place]) [...] Hx: 1 sister Aunt +hodgkins 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 Left cervical lymph node, biopsy ([id number], 03/16/2016): - Nodular sclerosis, classical Hodgkin's lymphoma [...]
--- OUTSIDE RECORDS SUMMARY | ~2019-01-06 | XMS | Encounter Summary ---
Demographics + + + | Address | [address] | | | [place] [address] | + + + | Home Phone [...] Team Providers + +------+ + | Care Dietary Services Manager Name | Role | Phone | + +------+ + | No Pcp Per Patient | PCP | Unavailable | + +------+ + Encounter Details +--------+ + + + + | Date | Type | Department | Care Team | Description | +--------+ + + + + | 06/15/ | Cinder Crane Operator | Center for | Quirino Moreno I, | Hodgkin's disease, | | 2016 | | Hematologic | ,PhD [address] [facility] | nodular sclerosis, | | | | Malignancies at | [facility] [address] | of lymph nodes of | | | | [facility] | [place], [place] | multiple sites (HCC) | | | | [address] | [address] | (Primary Dx) | | | | [facility] | [phone] | | | | | Mailcode: UHN73A | | | | | | [facility] | | | | | | [place], [place] | | | | | | [address] | | | | | | [phone] | | | +--------+ + + + [...] as of this encounter Plan of Treatment + +------+--------+ + + | Name | Type | Priori | Associated Diagnoses | Order Schedule | | | | ty | | | + +------+--------+ + + | 12 LEAD ECG | ECG | Routin | Hodgkin's disease, | Ordered: 06/15/2016 | | | | e | nodular sclerosis, | | | | | | of lymph nodes of | | | | | | multiple sites (HCC) | | + +------+--------+ + + documented as of this encounter Visit Diagnoses + + | Diagnosis | + + | Hodgkin's disease, nodular sclerosis, 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
--- OUTSIDE RECORDS SUMMARY | ~2019-01-06 | XMS | Encounter Summary ---
Demographics + + + | Address | [address] | | | [place] [address] | + + + | Home Phone [...] + + + | Author | [facility] | + + + | Organization | [facility] | + + + | Address [...] Team Providers + +------+ + | Care Laundry Laborer Name | Role | Phone | + [...] Medical Center | | | | | [facility] | [place], [place] | | | | | [address] [facility] | [address] | | | | | [facility] | [phone] | | | | | Mailcode: [id number] | | | | | | [facility] | | | | | | [place], [place] | | | | | | [address] | | | | | | [phone] | | | +--------+ + + + [...]
--- OUTSIDE RECORDS SUMMARY | ~2019-01-06 | XMS | Encounter Summary ---
Demographics + + + | Address | [address] | | | [place] [address] | + + + | Home Phone [...] Team Providers + +------+ + | Care Auditor Tax Name | Role | Phone | + +------+ + | Aashish Hilton MD | PCP | | + +------+ + Reason for Visit + + + | Reason | Comments | + + + | Lab Draw | Power PICC | + + + | Intravenous infusion | STEVE Boles | + + + | Transfusion | Platelets, PRBC | + + + Other (Routine) +--------+--------+ + + + + | Status | Reason | Specialty | Diagnoses / | Referred By | Referred To | | | | | Procedures | Contact | Contact | +--------+--------+ + + + + | Closed | | Hematology | Diagnoses | Quirino Moreno | [facility] | | | | Malignancy | Nodular | MD Ronak,PhD | [facility] | | | | | sclerosis | [address] | [address] | | | | | Hodgkin | [facility] | [facility] | | | | | lymphoma of | Rd | Mailcode: | | | | | lymph nodes | [place], [place] | [id number] | | | | | of multiple | [address] | [place] | | | | | regions | Phone: | Pavilion | | | | | (HCC) | [phone] | [place], [place] | | | | | Procedures | Fax: | [address] | | | | | Zarxio (For | [phone] | Phone: | | | | | Mobilizaton) | | [phone] | | | | | | | Fax: | | | | | | | [phone] | +--------+--------+ + + + + Encounter Details +--------+ + + + + | Date | Type | Department | Care Team | Description | +--------+ + + + + | 08/09/ | Clinical | Center for | | Lab Draw (Power | | 2016 | Support | Hematologic | | PICC); Intravenous | | | Staff | Malignancies at [facility] | | infusion (Soliris, | | | | [address] | | NS); Transfusion | | | | [facility] | | (Platelets, PRBC) | | | | Mailcode: [id number] | | | | | | Joanne Herman | | | | | | [place], [place] | | | | | | [address] | | | | | | [phone] | | | +--------+ + + + [...] + + + | Blood Pressure | 126/84 | 08/09/2016 1:15 PM | | | | | PST | | + + + + + | Pulse | 105 | 08/09/2016 1:15 PM | | | | | PST | | + + + + + | Temperature | 36.9 C (98.4 F) | 08/09/2016 1:15 PM | | | | | PST | | + + + + + | Respiratory Rate | 16 | 08/09/2016 1:15 PM | | | | | PST | | + + + + + | Oxygen Saturation | 100% | 08/09/2016 9:20 AM | | | | | PST | | + + + + + | Inhaled Oxygen | - | - | | | Concentration | | | | + + + + + | Weight | 94.3 kg (207 lb 14.3 | 08/09/2016 9:20 AM | | | | oz) | PST | | + + + + + | Height | - | - | | + + + + + | Body Mass Index | 30.62 | 07/15/2016 4:20 PM | | | | | PST | | + + + + + documented in this encounter Progress Notes Shawn Piercessica, RN - 08/09/2016 9:20 AM PST Assessment Patient ambulates into clinic today with their caregiver. 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 Patient reports they are feeling dizzy today. Pt reports that she has been nauseous and thr ew up yesterday, but she is taking her zofran and ativan with relief. She notes new onset di arrhea - she has a few episodes per day of loose, not liquid, stool. She has no abdominal cr amping and no fever. The patient denies colds, flu, fever, infection, constipation, signs or symptoms of mucosit is, edema, skin rash, urinary issues, shortness of breath and signs or symptoms of bleeding . The patient reports that they are eating well and drinking at least two liters of fluid da matthew. Labs Power PICC accessed per protocol. Good blood return noted. Appropriate waste discarded. Labs drawn and sent. Power PICC pulse flushed with 20 mL NS. Dressing Change CDI, WNL and due to be changed 08/10/16. Supportive Care Transfusion Lab Results Component Value Date PLT 15 08/09/2016 Orders to transfuse platelet product for a [...] flowsheet. Lab Results Component Value Date HCT 20.4 08/09/2016 HB 6.7 08/09/2016 Orders to transfuse PRBC product for a [...] ONC Lines & Transf usions doc flowsheet. Infusion Soliris is due today - confirmed in hospital discharge note (and the RN in clinic yesterday confirmed with Moonlighter) that patient should receive it today. Soliris infused over 35 minutes per orders. See MAR for details. Patient complained of dizziness and orthostatic vitals were obtained. Patient was orthostat ic - see flowsheet for details. NS 1 liter for orthostatic vitals with dizziness infused over two hours, per orders. Filgrastim Zarxio 480 mcg from floor stock injected subcutaneously to right arm per orders. No reactio n noted. See MAR for details. Line care provided, see Flowsheet for details. Patient was reminded to call clinic with tem p > 100.4, chills, s/s of bleeding or uncontrolled N/V/D/C. Patient verbalizes understanding . All questions answered. Patient was instructed to check out at the front desk coordinator prior to tiana ving the clinic. Patient d/c d ambulatory in stable condition. Next Appointment in [facility] is on 08/10/16 at 3:15 pm with JASMIN Cat. documented in this enc ounter Plan of Treatment Not on filedocumented as of this encounter Procedures + +--------+ + + + | Procedure Name | Priori | Date/Time | Associated Diagnosis | Comments | | | ty | | | | + +--------+ + + + | TREATMENT PARAMETERS | Routin | 08/09/2016 | Nodular sclerosis | | | #2 - BEACON | e | 1:34 PM | Hodgkin lymphoma of | | | | | PST | lymph nodes of | | | | | | multiple regions | | | | | | (HCC) | | + +--------+ + + + | TREATMENT PARAMETERS | Routin | 08/09/2016 | Nodular sclerosis | | | #2 - BEACON | e | 9:56 AM | Hodgkin lymphoma of | | | | | PST | lymph nodes of | | | | | | multiple regions | | | | | | (HCC) | | + +--------+ + + + | TREATMENT PARAMETERS | Routin | 08/09/2016 | Nodular sclerosis | | | #2 - BEACON | e | 9:56 AM | Hodgkin lymphoma of | | | | | PST | lymph nodes of | | | | | | multiple regions | | | | | | (HCC) | | + +--------+ + + + | TREATMENT PARAMETERS | Routin | 08/09/2016 | Nodular sclerosis | | | #2 - BEACON | e | 9:56 AM | Hodgkin lymphoma of | | | | | PST | lymph nodes of | | | | | | multiple regions | | | | | | (HCC) | | + +--------+ + + + | PRODUCT - PLATELET | Routin | 08/09/2016 | Autologous bone | Results for this | | PHERESIS | e | 9:55 AM | marrow | procedure are in the | | LEUKOREDUCED | | PST | transplantation | results section. | | | | | status (HCC) | | + +--------+ + + + | PRODUCT - RED CELLS | Routin | 08/09/2016 | Autologous bone | Results for this | | LEUKOREDUCED | e | 9:55 AM | marrow | procedure are in the | | | | PST | transplantation | results section. | | | | | status (HCC) | | + +--------+ + + + | TREATMENT PARAMETERS | Routin | 08/09/2016 | Nodular sclerosis | | | #1 - BEACON | e | 9:54 AM | Hodgkin lymphoma of | | | | | PST | lymph nodes of | | | | | | multiple regions | | | | | | (HCC) | | + +--------+ + + + | TREATMENT PARAMETERS | Routin | 08/09/2016 | Nodular sclerosis | | | #1 - BEACON | e | 9:54 AM | Hodgkin lymphoma of | | | | | PST | lymph nodes of | | | | | | multiple regions | | | | | | (HCC) | | + +--------+ + + + | BMP + MAG, POC CHM | Routin | 08/09/2016 | Autologous bone | Results for this | | | e | 9:34 AM | marrow | procedure are in [...] + + | CBC+DIFF,POC | Routin | 08/09/2016 | Autologous bone | Results for this | | | e | 9:32 AM | marrow | procedure are in [...] + | TREATMENT PARAMETERS | Routin | 08/09/2016 | Nodular sclerosis | | | #2 - BEACON | e | 9:06 AM | Hodgkin lymphoma of | | | | | PST | lymph nodes of | | | | | | multiple regions | | | | | | (HCC) | | + +--------+ + + + | NURSING | Routin | 08/09/2016 | Nodular sclerosis | | | COMMUNICATION #3 - | e | 9:06 AM | Hodgkin lymphoma of | | | BEACON | | PST | lymph nodes of | | | | | | multiple regions | | | | | | (HCC) | | + +--------+ + + + | NURSING | Routin | 08/09/2016 | Nodular sclerosis | | | COMMUNICATION #2 - | e | 9:06 AM | Hodgkin lymphoma of | | | BEACON | | PST | lymph nodes of | | | | | | multiple regions | | | | | | (HCC) | | + +--------+ + + + | NURSING | Routin | 08/09/2016 | Nodular sclerosis | | | COMMUNICATION #1 - | e | 9:06 AM | Hodgkin lymphoma of | | | BEACON | | PST | lymph nodes of | | | | | | multiple regions | | | | | | (HCC) | | + +--------+ + + + | NURSING | Routin | 08/09/2016 | HUS (hemolytic | | | COMMUNICATION #3 - | e | 9:06 AM | uremic syndrome), | | | BEACON [...] + | LIVER SET | Routin | 08/09/2016 | Autologous bone | Results for this | | (AST,ALT,BILI | e | 9:06 AM | marrow | procedure are in [...] + | PHOSPHORUS, PLASMA | Routin | 08/09/2016 | Autologous bone | Results for this | | | e | 9:06 AM | marrow | procedure are in [...] encounter Results PRODUCT - PLATELET PHERESIS LEUKOREDUCED (08/09/2016 9:55 AM PST) + + + + + [...] + + + + | PRODUCT | [id number] | | [facility] | | | UNIT [...] + + + + | EXPIRATION | [id number] | | [facility] | | | DATE [...] + + + + | BLOOD | [id number] | | [facility] | | | PRODUCT [...] [facility] | [address] | [place] [address] | | | SERVICES, | [address] | | | | TRANSFUSION MEDICINE | | | | + + + + + PRODUCT - RED CELLS LEUKOREDUCED (08/09/2016 9:55 AM PST) + + + + + [...] + + + + | PRODUCT | [id number] | | [facility] | | | UNIT [...] + + + + | EXPIRATION | [id number] | | [facility] | | | DATE [...] + + + + | BLOOD | [id number] | | [facility] | | | PRODUCT [...] [facility] | [address] | [place] [address] | | | SERVICES, | [address] | | | | TRANSFUSION MEDICINE | | | | + + + + + BMP + MAG, POC CHM (08/09/2016 9:34 [...] [facility] | [address] | [place], [place] | | | [place] [address] | [address] | [address] | | | TESTS | | | | + + + + + CBC+SWATI BELLAMY (08/09/2016 9:32 AM PST) + + + [...] [facility] | [address] | [place], [place] | | | ALYSSA POINT OF CARE | [address] | [address] | | | TESTS | | | | + + + + + PHOSPHORUS, PLASMA (08/09/2016 9:06 AM PST) + +-------+ + + + [...] [facility] | [address] | [place] [address] | | | SERVICES, CORE | [address] | | | + + + + + LIVER SET (AST,ALT,BILI TOTAL,BILI DIRECT,ALK PHOS,ALB,PROT TOTAL) (08/09/2016 9:06 AM PST ) + +---------+ + + [...] +---------+ + + + | BILIRUBIN | 0.9 | 0.3 - 1.2 mg/dL | [facility] [...] + + + | ALK PHOS | 108 (H) | 42 - 98 U/L | [facility] | | | | | | LABORATORY | | | | | | SERVICES, | | | | | | CORE | | + +---------+ + + + | AST(SGOT) | 21 | <=41 U/L | [facility] | | | | | | LABORATORY | | | | | | SERVICES, | | | | | | CORE | | + +---------+ + + + | ALT (SGPT) | 19 | <=60 U/L | [facility] | | [...] | + +---------+ + + + | CAMILLEI T CMNT | No Hemo | | [...] + + + + + | [facility] | [address] | [place] [address] | | | SERVICES, CORE | BLANCHE [...] multiple regions (HCC) | + + | HUS (hemolytic uremic syndrome), atypical (HCC) Hemolytic-uremic syndrome | + + documented in this encounter Administered Medications + +---------+ + +---------+------+ | Medication Order | MAR | Action | Dose | Rate | Site | | | Action | Date | | | | + +---------+ + +---------+------+ | eculizumab (SOLIRIS) 1,200 mg | New Bag | 08/09/20 | 1,200 mg | 411.43 | | | in NaCl 0.9 % IV 1,200 mg, | | 16 10:14 | | mL/hr | | | intravenous, Administer over 35 | | AM PST | | | | | Minutes, ONCE, 1 dose, Mon | | | | | | | 08/09/16 at 0915, HIGH RISK | | | | | | | MEDICATION, | | | | | | + +---------+ + +---------+------+ +---+---+ | | | +---+---+ + +-------+ +---------+---+--------+ | filgrastim-sndz (RAMONA) | Given | 08/09/20 | 480 mcg | | Right | | injection 480 mcg 480 mcg, | | 16 1:10 | | | Arm | | subcutaneous, DAILY, First dose | | PM PST | | | | | on 08/09/16 at 1230, Until | | | | | | | Discontinued | | | | | | + +-------+ +---------+---+--------+ +---+---+ | | | +---+---+ documented in this encounter"
--- OUTSIDE RECORDS SUMMARY | ~2019-01-06 | XMS | Encounter Summary ---
Demographics + + + | Address | [address] | | | [place] [address] | + + + | Home Phone [...] Team Providers + +------+ + | Care Change Attendant Name | Role | Phone | [...] [address] | | | | | | [facility] | | | | | | Mailcode: [id number] | | | | | | Joanne Herman | | | | | | [place], [place] | | | | | | [address] | | | | | | [phone] | | | +--------+ + + + [...]
--- OUTSIDE RECORDS SUMMARY | ~2019-01-06 | XMS | Encounter Summary ---
Demographics + + + | Address | [address] | | | [place] [address] | + + + | Home Phone | | + + + | Preferred Language | Unknown | + + + | Marital Status | | + + + | Anabaptism Affiliation | NON | + + + | Race | White | + + + | Ethnic Group | Not or | + + + Author + + + | Author | [facility] | + + + | Organization | [facility] | + + + | Address | [...] Team Providers + +------+ + | Care Lifts And Cranes Inspector Name | Role | Phone | + +------+ + PCP | Unavailable | + +------+ + Encounter Details +--------+ + + + + | Date | Type | Department | Care Team | Description | +--------+ + + + + | 03/22/ | Histology Aide | Center for | Quirino Moreno I, | | | 2016 | | Hematologic | ,PhD [address] | | | | | Malignancies at | [facility] | | | | | Joanne Herman | [place], [place] | | | | | [address] | [address] | | | | | [facility] | [phone] | | | | | Mailcode: [id number] | | | | | | [facility] | | | | | | [place], [place] | | | | | | [address] | | | | | | [phone] | | | +--------+ + + + [...]
--- OUTSIDE RECORDS SUMMARY | ~2019-01-06 | XMS | Encounter Summary ---
Demographics + + + | Address | [address] | | | [place] [address] | + + + | Home Phone [...] Team Providers + +------+ + | Care Switch Repairer Name | Role | Phone | + [...] + | 07/05/ | Hospital | [facility] | | | | 2016 | Encounter | Floor [address] | | | | | | [facility] | | | | | | [facility] 14[address] | | | | | | [place], [place] | | | | | | [address] | | | | | | [phone] | | | +--------+ + + + [...] | + + + + + | [facility] | [address] | [place] [address] | | | SERVICES, SCOOBY | [address] [...] | + + + + + | [facility] | [address] | [place] [address] | | | SERVICES, CORE | [address] | | | + + + + + PRODUCT CELL COUNT (07/05/2016 4:30 PM PST) + + + + + + | Component | Value | Ref Range | Performed | Pathologist | | | | | At | Signature | + + + + + + | PRODUCT | [id number] | | [facility] | | | IDENTIFIER [...] | + + + + + | [facility] | [address] [facility] | [place] [address] | | | SERVICES, CORE | [address] [...] [facility]- [facility] | | | TYPE | [id number] | | CELL | | | | [...] HEM CELL | [address] | [place], [place] | | | PROCESSING LAB | [address] | [address] | | + + + + + PRODUCT [id number] STEM CELLS (07/05/2016 3:22 PM PST) + + + + + + | Component | Value | Ref Range | Performed | Pathologist | | | | | At | Signature | + + + + + + | PRODUCT | [id number] | | [facility] | | | IDENTIFIER [...] | + + + + + | [facility] | [address] | [place] [address] | | | SERVICES, SPECIAL | PARK [...] + + + + | PRODUCT | [id number] | | [facility] | | | IDENTIFIER [...] [facility] | [address] | [place] [address] | | | ELISA, SCOOBY | [address] | | | + + + + + PRODUCT CELL COUNT (07/05/2016 3:21 PM PST) + + + + + + | Component | Value | Ref Range | Performed | Pathologist | | | | | At | Signature | + + + + + + | PRODUCT | [id number] | | [facility] | | | IDENTIFIER [...] [facility] | [address] | [place] [address] | | | SERVICES, SCOOBY | P[address] [...] | + + + + + | [facility] | [address] | [place] [address] | | | SERVICES, CORE | [address] | | | + + + + + PRODUCT RETYPE ONLY (07/05/2016 2:00 PM PST) + + + + + + | Component | Value | Ref Range | Performed | Pathologist | | | | | At | Signature | + + + + + + | PRODUCT | [id number] | | [facility] | | | IDENTIFIER [...] + + + + + + | [place] SPECIMEN | [facility], [facility]IS | | [facility] [...] | + + + + + | [facility] | [address] | [place] [address] | | | SERVICES, CORE | [address] | | | + + + + + documented in this encounter Visit Diagnoses + + | Diagnosis | + + | 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
--- OUTSIDE RECORDS SUMMARY | ~2019-01-06 | XMS | Encounter Summary ---
Demographics + + + | Address | [address] | | | [place] [address] | + + + | Home Phone | | + + + | Preferred Language | Unknown | + + + | Marital Status | | + + + | Islam Affiliation | NON | + + + [...] Team Providers + +------+ + | Care Beam Saw Operator Name | Role | Phone | + +------+ + | Aashish Hilton MD | PCP | | + +------+ + Encounter Details +--------+ + + + + | Date | Type | Department | Care Team | Description | +--------+ + + + + | 07/20/ | Abstract | Center for | Quirino Moreno I, | | | 2016 | | Hematologic | ,PhD [address] | | | | | Malignancies at | [facility] | | | | | [facility] | [place], [place] | | | | | [address] [facility] | [address] | | | | | [facility] | [phone] | | | | | Mailcode: [id number] | | | | | | [facility] | | | | | | [place], [place] | | | | | | [address] | | | | | | [phone] | | | +--------+ + + + [...]
--- OUTSIDE RECORDS SUMMARY | ~2019-01-06 | XMS | Encounter Summary ---
Demographics + + + | Address | [address] | | | [place] [address] | + + + | Home Phone [...] Team Providers + +------+ + | Care Welder Explosion Name | Role | Phone | + [...] Hematology | Diagnoses | Quirino Moreno | [facility] | | | | Malignancy | Nodular | [place] Ronak,PhD | [facility] [address] | | | | | sclerosis | [address] | [address] | | | | | Hodgkin | [facility] | [facility] | | | | | lymphoma of | Rd | Mailcode: | | | | | lymph nodes | [place], [place] | [id number] | | | | | of multiple | [address] | [place] | | | | | regions | Phone: | Pavilion | | | | | (HCC) | [phone] | [place], [place] | | | | | Procedures | Fax: | [address] | | | | | [facility] (For | [phone] | Phone: | | | | | Mobilizaton) | | [phone] | | | | | | | Fax: | | | | | | | [phone] | +--------+--------+ + + + + Encounter [...] | NS); Transfusion | | | | [facility] | | (Platelets, PRBC) | | | | Mailcode: [id number] | | | | | | Joanne Herman | | | | | | [place], [place] | | | | | | [address] | | | | | | [phone] | | | +--------+ + + + [...] was instructed to check out at the service desk manager prior to tiana ving the clinic. Patient d/c d ambulatory in stable condition. Next Appointment in [facility] is on 08/10/16 at 3:15 [...] + + + + | PRODUCT | [id number] | | [facility] | | | UNIT [...] + + + + | EXPIRATION | [id number] | | [facility] | | | DATE [...] + + + + | BLOOD | [id number] | | [facility] | | | PRODUCT [...] [facility] | [address] | [place] [address] | | | SERVICES, | [address] [...] + + + + | PRODUCT | [id number] | | [facility] | | | UNIT [...] + + + + | EXPIRATION | [id number] | | [facility] | | | DATE [...] + + + + | BLOOD | [id number] | | [facility] | | | PRODUCT [...] [facility] | [address] | [place] [address] | | | SERVICES, | [address] [...] [facility] | [address] | [place], [place] | | | [place] | [address] | [address] | | | TESTS | | | [...] [facility] | [address] | [place], [place] | | | ALYSSA POINT OF CARE | [address] | [address] | | | TESTS | | | [...] [facility] | [address] | [place] [address] | | | SERVICES, CORE | [address] [...] | + + + + + | [facility] | [address] | [place] [address] | | | SERVICES, CORE | [address] [...]
--- OUTSIDE RECORDS SUMMARY | ~2019-01-06 | XMS | Encounter Summary ---
Demographics + + + | Address | [address] | | | [place] [address] | + + + | Home Phone [...] Team Providers + +------+ + | Care Lumber Tying Machine Operator Name | Role | Phone | + +------+ + | No Pcp Per Patient | PCP | Unavailable | + +------+ + Encounter Details +--------+ + + + + | Date | Type | Department | Care Team | Description | +--------+ + + + + | 06/15/ | Manager [employer] | Center for | Quirino Moreno I, | Hodgkin's disease, | | 2016 | | Hematologic | ,PhD [address] [facility] | nodular sclerosis, | | | | Malignancies at | [address] | of lymph nodes of | | | | [facility] | [place], [place] | multiple sites (HCC) | | | | [address] | [address] | (Primary Dx) | | | | [facility] | [phone] | | | | | Mailcode: [id number] | | | | | | [facility] | | | | | | [place], [place] | | | | | | [address] | | | | | | [phone] | | | +--------+ + + + [...]
--- OUTSIDE RECORDS SUMMARY | ~2019-01-06 | XMS | Encounter Summary ---
Demographics + + + | Address | [address] | | | [place] [address] | + + + | Home Phone [...] Team Providers + +------+ + | Care Refrigerated Company Driver Name | Role | Phone | [...] [facility] | | | | | [facility] | [place], [place] | | | | | [address] [facility] | [address] | | | | | [facility] | [phone] | | | | | Mailcode: [id number] | | | | | | [facility] | | | | | | [place], [place] | | | | | | [address] | | | | | | [phone] | | | +--------+ + + + [...]
--- OUTSIDE RECORDS SUMMARY | ~2019-01-06 | XMS | Encounter Summary ---
Demographics + + + | Address | [address] | | | [place] [address] | + + + | Home Phone [...] Providers + +------+ + | Care Machine Filler Name | Role | Phone | + +------+ + | No Pcp Per Patient | PCP | Unavailable | + +------+ + Encounter Details +--------+ + + + + | Date | Type | Department | Care Team | Description | +--------+ + + + + | 06/15/ | Line Technician | Center for | Quirino Moreno I, | | | 2016 | | Hematologic | ,PhD [address] | | | | | Malignancies at | [facility] | | | | | Joanne Herman | [place], [place] | | | | | [address] [facility] | [address] | | | | | [facility] | [phone] | | | | | Mailcode: [id number] | | | | | | [facility] | | | | | | [place], [place] | | | | | | [address] | | | | | | [phone] | | | +--------+ + + + [...]
--- OUTSIDE RECORDS SUMMARY | ~2019-01-06 | XMS | Encounter Summary ---
Demographics + + + | Address | [address] | | | [place] [address] | + + + | Home Phone [...] Providers + +------+ + | Care Security Tech Name | Role | Phone | + +------+ + | Aashish Hilton MD | PCP | | + +------+ + Encounter Details +--------+ + + + + | Date | Type | Department | Care Team | Description | +--------+ + + + + | 08/06/ | Dental Appliance Mechanic | Center for | Fany Phillips | Autologous bone | | 2016 | | Hematologic | S, TOP DYEING MACHINE LOADER [address] [facility] | marrow | | | | Malignancies at | [facility] [address] | transplantation | | | | [facility] | [place], [place] | status (HCC) | | | | [address] [facility] | [address] | (Primary Dx); | | | | [address] | [phone] | Nodular sclerosis | | | | Mailcode: [id number] | | Hodgkin lymphoma of | | | | [facility] | | lymph nodes of | | | | [place], [place] | | multiple regions | | | | [address] | | (HCC) | | | | [phone] | | | +--------+ + + + [...] [facility] | [address] | [place], [place] | | | ALYSSA POINT OF CARE | [facility] | [address] | | | TESTS | | | [...] [facility] | [address] | [place] | | | MERRY SHAH OF CARE | [address] | [address] | | | TESTS | | | [...] [facility] | [address] | [place] | | | MERRY SHAH OF BAILE[place] | [address] | [address] | | | TESTS | | | [...]
--- OUTSIDE RECORDS SUMMARY | ~2019-01-06 | XMS | Encounter Summary ---
Demographics + + + | Address | [address] | | | [place] [address] | + + + | Home Phone [...] Team Providers + +------+ + | Care Molding Supervisor Name | Role | Phone | + +------+ + | Aashish Hilton MD | PCP | | + +------+ + Encounter Details +--------+ + + + + | Date | Type | Department | Care Team | Description | +--------+ + + + + | 08/04/ | It Risk And Assurance Manager | Center for | Fany Phillips | Autologous bone | | 2016 | | Hematologic | S, SHOTBLAST OPERATOR [address] [facility] | marrow | | | | Malignancies at | [address] | transplantation | | | | [facility] | [place], [place] | status (HCC) | | | | [address] [facility] | [address] | (Primary Dx); | | | | [address] | [phone] | Nodular sclerosis | | | | Mailcode: UHN73A | | Hodgkin lymphoma of | | | | [facility] | | lymph nodes of | | | | [place], [place] | | multiple regions | | | | [address] | | (HCC) | | | | [phone] | | | +--------+ + + + [...] TAEAM | [address] | [place], [place] | | | ALYSSA POINT OF CARE | [facility] | [address] | | | TESTS | | | [...] MAGUI | [address] | [place], [place] | | | MERRY SHAH OF [facility] | [address] | [address] | | | TESTS | | | [...] + + + + + | [facility] | [address] | [place] [address] | | | SERVICES, CORE | BLANCHE [...]
--- OUTSIDE RECORDS SUMMARY | ~2019-01-06 | XMS | Encounter Summary ---
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 | [facility] | | | | | lymphoma, | Rd | Mailcode: | | | | | lymph nodes | [place], [place] | UHN73A | | | | | of multiple | [address] | [facility] | | | | | sites | Phone: | [facility] | | | | | | [phone] | [place], [place] | | | | | | Fax: | [address] | | | | | | [phone] | Phone: | | | | | | | [phone] | | | | | | | Fax: | | | | | | | [phone] | +--------+--------+ + + + + Encounter [...] | | Malignancies at | [facility] [address] | transplantation | | | | [facility] | [place], [place] | status (HCC) | | | | [address] | [address] | (Primary Dx); | | | | [facility] | [phone] | Nodular sclerosis | | | | Mailcode: UHN73A | | Hodgkin lymphoma of | | | | [facility] | | lymph nodes of | | | | [place], [place] | | multiple regions | | | | [address] | | (HCC) | | | | [phone] | | | +--------+---------+ + + + [...] for autoBMT Local oncologist: Aashish Hilton MD ([facility]/[place]) Benign Hematology: Jim Michael MD ([facility]) Pediatric Heme/Onc: Anh Moreland MD ([place]) Nephrology: Raghav Miller MD ([place]) 04/2015 presented with flank pain CT C/A/P: 11 cm anterior mediastinal mass, pleural effusion & L supraclav adenopathy Needle bx: classical hodgkins, nodular sclerosing type Thoracentesis: reactive/benign BMBx: neg PET: bulky mediastinal mass, SUV 16; bilateral neck SUV 15; also R>L pleural effusion 05/10/15 began ABVE-PC (as per pediatric [id number]) via femoral line 05/16/15 presented with sepsis [...] L neck: classical Hodgkins Above therapy in [place] -> moved to [place] Continued on ecalizumab per benign heme (Fernanda) - 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 | [place], [place] | | | MERRY SHAH OF [place] | [facility] | [address] | | | TESTS | | | [...] | | | | | | MERRY SAHH | | | | | | OF [...] + + | [facility] | [address] | [place], [place] | | | MERRY SHAH OF [place] | [facility] | [address] | | | TESTS | | | [...] [facility] | [address] | [place] [address] | | | SERVICES, CORE | PARK [...] | + + + + + | [facility] | [address] | [place] [address] | | | SERVICES, CORE | BLANCHE [...]
--- OUTSIDE RECORDS SUMMARY | ~2019-01-06 | XMS | Encounter Summary ---
Demographics + + + | Address | [address] | | | [place] [address] | + + + | Home Phone [...] Team Providers + +------+ + | Care Rubber Belt Splicer Name | Role | Phone | + [...] | [facility] | [address] | | | | | lymphoma of | Rd | Mailcode: | | | | | lymph nodes | [place], [place] | UHN73A | | | | | of multiple | [address] | [place] | | | | | regions | Phone: | [facility]ilion | | | | | (HCC) | [phone] | [place], [place] | | | | | Procedures | Fax: | [address] | | | | | Autologous | [phone] | Phone: | | | | | SCT Eval | | [phone] | | | | | | | Fax: | | | | | | | [phone] | +--------+--------+ + + + + Encounter Details +--------+ + + + + | Date | Type | Department | Care Team | Description | +--------+ + + + + | 06/17/ | Hospital | [facility] | | | | 2016 | Encounter | Floor [address] | | | | | | [facility] | | | | | | [address] | | | | | | [place], [place] | | | | | | [address] | | | | | | [phone] | | | +--------+ + + + [...]
--- OUTSIDE RECORDS SUMMARY | 2019-01-06 11:40 | XMS ---
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 Cassie has no Care Guidelines for this patient. Martha VISIT COUNT (12 MO.) 3 [facility] [place] TOTAL 3 NOTE: Visits indicate total known visits. 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
[2019-01-06] MEDS ORDERED: NORETHINDRONE0.35 MG PO (11:57)
[2019-01-06] MEDS ORDERED: AUGMENTIN 875-1 EACH PO (13:33)
== END 2019-01-06 14:52 | disposition home or self-care (01) ==
LOC: ED 11:37
DX: J02.9 Acute pharyngitis, unspecified (principal); Z85.71 Personal history of Hodgkin lymphoma; Z88.2 Allergy status to sulfonamides; Z88.8 Allergy status to other drugs, medicaments and biological substances; Z79.899 Other long term (current) drug therapy
CPT/HCPCS: 80053; 83605; 85025; 96361; 96365; 96375; 99283-25; J0696; J2405; J7030